=== PATIENT | male | born 1970 | race African-American/Black ===

== ENCOUNTER 2021-04-04 13:48 | Emergency (ER) | payer SELFPAY ==
[2021-04-04 13:59] VITALS: BP 130/95; PULSE 115; RESP 17; TEMP 37.1; O2SAT 100
[2021-04-04 14:03] VITALS: PULSE 115
--- NOTE | 2021-04-04 14:11 | ED.GENADULT ---
HPI - General Adult General Chief complaint: Unspecified Stated complaint: etoh withdrawls Time Seen by Provider: 04/04/21 13:53 Source: patient and RN notes reviewed Mode of arrival: ambulatory Limitations: no limitations History of Present Illness HPI narrative: This is a 50 year old male with history of alcoholism who presents for evaluation of alcohol withdrawals. He states 1 week ago he went out of town and he started drinking alcohol. He states he was sober for severe months until last week. He states he has been drinking beer mostly and small amount of liquor. He states on Tuesday he drank 8 beers. Yesterday he drank 5 beers. Last night he states he took 1 Librium because he was feeling shaking and sweaty. He states today he woke up and he feels shaky again so he came to get medication for alcohol withdrawal. He denies weakness, nausea, vomiting, abdominal pain, chest pain, diarrhea, bloody stools or dizziness. Related Data Home Medications Medication Instructions Recorded Confirmed amlodipine 04/04/21 Allergies Allergy/AdvReac Type Severity Reaction Status Date / Time No Known Allergies Allergy Unverified 04/04/21 14:01 Review of Systems Review of Systems: All systems reviewed & are unremarkable except as noted in HPI and below PMFSH Past Medical History Medical History GERD (gastroesophageal reflux disease) HTN (hypertension) Pancreatitis Social History Social History (Updated 11/21/19 @ 18:09 by HÉCTOR Jasso) Smoking status: Current every day smoker Alcohol intake: former Substance use: current Substance use type: marijuana Gender identity (if verbalized by the patient): Male Comments He reports past surgical history of pancreatic pseudocyst drainage Exam Narrative: Exam Narrative: GENERAL: Well-appearing, thin, and in no acute distress. HEAD: Normocephalic, atraumatic EYES: PERRLA and EOMI, conjunctiva clear without discharge THROAT:Mucous membranes moist, Oropharynx normal without erythema, exudate, peritonsillar swelling or fluctuance NECK: Supple, without lymphadenopathy or mass RESPIRATORY: No respiratory distress, Airway patent, Respirations non-labored, Clear to auscultation without rales, rhonchi or wheeze HEART: Regular rate and rhythm. No murmur heard. Normal peripheral pulses. ABDOMEN: Soft, nontender, nondistended, normal active bowel sounds. No masses. No rebound or guarding, No organomegaly. EXTREMITIES: No edema, normal strength with full range of motion. SKIN: Warm, dry, normal color without rash NEURO: Alert and oriented x3. CN 2-12 grossly intact. No focal deficits. PSYCH: Normal mood and affect. Course Reevaluation(s) Reevaluation #1: On examination, patient has mild hand tremors but otherwise appears stable. He does not appear dehydrated Date: 04/04/21 Time: 14:15 Vital Signs Vital signs: Vital Signs Temperature 98.8 F 04/04/21 13:59 Pulse Rate 115 H 04/04/21 13:59 Respiratory Rate 17 04/04/21 13:59 Blood Pressure 130/95 H 04/04/21 13:59 Pulse Oximetry 100 04/04/21 13:59 Temperature 98.8 F 04/04/21 13:59 Pulse Rate 68 04/04/21 14:49 Respiratory Rate 18 04/04/21 14:49 Blood Pressure 129/85 04/04/21 14:49 Pulse Oximetry 100 04/04/21 14:49 Medical Decision Making Vital Signs Vital Signs: Vital Signs Temperature 98.8 F 04/04/21 13:59 Pulse Rate 115 H 04/04/21 13:59 Respiratory Rate 17 04/04/21 13:59 Blood Pressure 130/95 H 04/04/21 13:59 Pulse Oximetry 100 04/04/21 13:59 Temperature 98.8 F 04/04/21 13:59 Pulse Rate 68 04/04/21 14:49 Respiratory Rate 18 04/04/21 14:49 Blood Pressure 129/85 04/04/21 14:49 Pulse Oximetry 100 04/04/21 14:49 Discharge Plan Discharge Clinical Impression: Alcohol withdrawal Qualifiers: Complication of substance-induced condition: uncomplicated Quali
[2021-04-04] MEDS: chlordiazePOXIDE (*CRX) 25 MG CAPSULE PO (14:25)
[2021-04-04 14:29] VITALS: BP 134/83; PULSE 87; RESP 21; O2SAT 100
[2021-04-04 14:49] VITALS: BP 129/85; PULSE 68; RESP 18; O2SAT 100
== END 2021-04-04 14:51 | disposition home or self-care (01) ==
PROVIDERS: Emergency Provider General Practice
DX: F10.230 Alcohol dependence with withdrawal, uncomplicated (principal); K21.9 Gastro-esophageal reflux disease without esophagitis; I10 Essential (primary) hypertension; F17.200 Nicotine dependence, unspecified, uncomplicated
CPT/HCPCS: 99283; A9270

== ENCOUNTER 2021-10-05 16:49 | Emergency (ER) | payer SELFPAY ==
[2021-10-05 16:55] VITALS: BP 126/79; PULSE 106; RESP 18; TEMP 36.6; O2SAT 98
== END 2021-10-06 04:34 | disposition left against medical advice (07) ==
LOC: ANHED 20:36
DX: M54.6 Pain in thoracic spine (principal)
CPT/HCPCS: 99199

== ENCOUNTER 2021-12-24 21:04 | Emergency (ER) | payer OTHER, SELFPAY ==
--- NOTE | 2021-12-24 21:07 | PC.NURSE ---
Pt called to triage at this time, no response.
[2021-12-24 21:20] VITALS: BP 128/76; PULSE 80; RESP 18; TEMP 37; O2SAT 100
--- NOTE | 2021-12-24 21:51 | ED.ALCOHOL ---
HPI - Alcohol General Chief Complaint: Alcohol Stated Complaint: ETOH withdrawl/ detox Time Seen by Provider: 12/24/21 21:31 Source: patient Mode of arrival: ambulatory Limitations: no limitations History of Present Illness HPI narrative: Pt is a 51 y/o male, presents to ED via POV with chief concern he is starting to experience mild ETOH withdrawal symptoms today. Here reports being sober for several months however, over the past three weeks, he has increased his ETOH use, now drinking daily. He admits to drinking two 24 ounce beers this morning and then a 16 ounce beer and two shots of gin around 1830 today. He reports he starts to shake when he does not drink but denies NV, erector pylori, photophobia, hallucinations, JADE or history of seizures as a result of withdrawal. He denies SI or HI and has no concerns he requires inpatient detox MD complaint: alcohol intoxication and alcohol dependence Last drink: hours (ago) Amount of alcohol consumed: refer to HPI Chronic alcohol use: Yes Previous visits for alcohol intoxication: Yes Recent trauma: No Associated symptoms: other (refer to HPI) Treatments prior to arrival: none Related Data Home Medications Medication Instructions Recorded Confirmed amlodipine 04/04/21 Allergies Allergy/AdvReac Type Severity Reaction Status Date / Time No Known Allergies Allergy Unverified 12/24/21 21:27 Review of Systems Review of Systems: refer to HPI Constitutional: Constitutional: Reports no additional constitutional complaints Neurologic: Reports system reviewed and no additional complaints, except as documented [facility] Past Medical History Medical History (Updated 12/24/21 @ 23:15 by Sindy Kasper [employer]) Alcoholic intoxication GERD (gastroesophageal reflux disease) HTN (hypertension) Pancreatitis Social History Social History (Updated 11/21/19 @ 18:09 by Dorothy Chilel, [employer]) Smoking status: Current every day smoker Alcohol intake: former Substance use: current Substance use type: marijuana Gender identity (if verbalized by the patient): Male Exam Const: General: cooperative, healthy appearing, comfortable, no acute distress, well developed, alert, awake and Physically active Nutritional Appearance: thin Orientation/consciousness: oriented to person, oriented to place, oriented to time and patient oriented x3 Limitations: no limitations HENMT: Head: normal to inspection Ears: hearing grossly normal bilaterally General nose exam: Normal nares present Face and sinus: normal facial exam and sinuses nontender Mouth: Yes Normal oral and palatal mucosa present Throat: posterior oropharynx normal Eyes: General: appearance normal, both eyes and all related structures Visual Pena: normal visual pena by confrontation Alignment and Position: alignment normal Periorbital: periorbital findings normal Eyelids: eyelids normal Conjunctivae: conjunctivae normal Cornea: corneas normal EOM: EOMs intact bilaterally Direct Ophthalmoscopy: normal light reflex Neck: Neck: normal visual inspection Thyroid: thyroid normal Lymphatic: no lymphadenopathy noted Chest: Chest palpation & inspection: normal inspection of the chest and normal palpation of entire chest wall Breast/axilla inspection: normal inspection of the breasts Resp: Effort & Inspection: normal respiratory effort and able to speak in complete sentences Auscultation: clear to auscultation bilaterally Cardio: Jugular venous distension: no JVD Rate: regular rate Rhythm: regular rhythm Heart sounds: S1 normal heart sound present and S2 normal heart sound present GI: Inspection: normal to inspection Auscultation: normal bowel sounds Back/Spine/Pelvis: Back: no CVA tenderness Skin: General skin exam: normal color Rashes: no rashes Trauma: no lacerations or abrasions Wounds: no wounds Hair: normal Neuro: General: oriented to person, oriented to place, oriented to time, patient oriented x3,
[2021-12-24 22:06] LABS: Basophils Absolute Auto 0.1 K/mm3 (0.0-0.1); Basophils Percent Auto 1.1 % (0.2-1.2); Eosinophils Absolute Auto 0.5 K/mm3 (0-0.3); Eosinophils Percent Auto 6.5 % (0-4.4); Hematocrit 38.4 % (42.0-52.0); Hemoglobin 13.2 g/dL (14.0-18.0); Immature Granulocyte Absolute 0.02 K/mm3 (0.00-0.031); Immature Granulocyte Percent A 0.3 % (0-0.5); Lymphocytes Absolute Auto 2.88 K/mm3 (0.9-3.2); Lymphocytes Percent Auto 38.1 % (18.3-44.2); Mean Corpuscular HGB Conc 34.4 g/dl (32-36); Mean Corpuscular Hemoglobin 33.2 pg (26-34); Mean Corpuscular Volume 96.7 fl (80-100); Mean Platelet Volume 8.9 fl (7.4-10.4); Monocytes Absolute Auto 0.6 K/mm3 (0.1-0.6); Monocytes Percent Auto 8.5 % (2.6-8.5); Neutrophils Absolute Auto 3.4 K/mm3 (1.3-6.7); Neutrophils Percent Auto 45.5 % (45.5-73.1); Platelet Count Result 184 k/mm3 (150-375); Red Blood Count 3.97 M/mm3 (4.6-6.20); Red Cell Distribution Width 14.6 % (11.5-14.5); White Blood Count 7.6 K/mm3 (4.5-10.0)
[2021-12-24 22:19] LABS: Alanine Aminotransferase 28 U/L (4-50); Albumin Level 4.4 g/dL (3.5-5.1); Alkaline Phosphatase 57 U/L (38-126); Anion Gap 11 mmol/L (8-16); Aspartate Amino Transferase 60 U/L (17-59); Bilirubin,Total 0.4 mg/dL (0.2-1.3); Blood Urea Nitrogen 9 mg/dL (9-20); Carbon Dioxide 24 mmol/L (22-30); Chloride 108 mmol/L (98-107); Estimated CRCL calculation 75 ml/min; Estimated Glomerular Filt Rate > 60; Glucose 69 mg/dL (65-110); Sodium 143 mmol/L (137-145)
[2021-12-24 22:20] LABS: Ethanol 213 mg/dL (<10)
[2021-12-24 23:50] VITALS: BP 123/89; PULSE 72; RESP 16; TEMP 36.9; O2SAT 99
== END 2021-12-24 23:59 | disposition home or self-care (01) ==
PROVIDERS: Emergency Provider Nurse Practitioner Family
DX: F10.120 Alcohol abuse with intoxication, uncomplicated (principal); I10 Essential (primary) hypertension; K21.9 Gastro-esophageal reflux disease without esophagitis; F17.200 Nicotine dependence, unspecified, uncomplicated; Y90.7 Blood alcohol level of 200-239 mg/100 ml
CPT/HCPCS: 36415; 80053; 80307; 85025; 99283

== ENCOUNTER 2022-01-12 12:15 | Emergency (ER) | payer OTHER, SELFPAY ==
--- NOTE | ~2022-01-12 | XR_ITS ---
EXAMINATION: XR chest 1V portable DATE: 01/12/2022 13:41 INDICATION: Cough. TECHNIQUE: A single frontal view of the chest was obtained. COMPARISON: None. FINDINGS: The chest demonstrates clear lungs without pneumonia, pleural effusion, or pneumothorax. Th e heart size is normal. IMPRESSION: 1. No acute cardiopulmonary disease. Reviewed, dictated and finalized at location A.
[2022-01-12 12:19] VITALS: BP 133/77; PULSE 72; RESP 20; TEMP 36.8; O2SAT 99
[2022-01-12 14:08] LABS: Basophils Absolute Auto 0.1 K/mm3 (0.0-0.1); Basophils Percent Auto 0.8 % (0.2-1.2); Eosinophils Absolute Auto 0.2 K/mm3 (0-0.3); Hematocrit 39.1 % (42.0-52.0); Hemoglobin 13.4 g/dL (14.0-18.0); Immature Granulocyte Absolute 0.02 K/mm3 (0.00-0.031); Immature Granulocyte Percent A 0.2 % (0-0.5); Lymphocytes Absolute Auto 2.63 K/mm3 (0.9-3.2); Lymphocytes Percent Auto 30.5 % (18.3-44.2); Mean Corpuscular HGB Conc 34.3 g/dl (32-36); Mean Corpuscular Hemoglobin 33.3 pg (26-34); Mean Platelet Volume 9.1 fl (7.4-10.4); Monocytes Absolute Auto 0.5 K/mm3 (0.1-0.6); Monocytes Percent Auto 5.2 % (2.6-8.5); Neutrophils Absolute Auto 5.3 K/mm3 (1.3-6.7); Neutrophils Percent Auto 61.3 % (45.5-73.1); Platelet Count Result 248 k/mm3 (150-375); Red Blood Count 4.03 M/mm3 (4.6-6.20); Red Cell Distribution Width 13.6 % (11.5-14.5); White Blood Count 8.6 K/mm3 (4.5-10.0)
[2022-01-12 14:21] LABS: Alanine Aminotransferase 18 U/L (4-50); Albumin Level 4.5 g/dL (3.5-5.1); Alkaline Phosphatase 62 U/L (38-126); Anion Gap 4 mmol/L (8-16); Aspartate Amino Transferase 38 U/L (17-59); Bilirubin,Total 0.5 mg/dL (0.2-1.3); Blood Urea Nitrogen 9 mg/dL (9-20); Calcium 9.2 mg/dL (8.4-10.2); Carbon Dioxide 27 mmol/L (22-30); Chloride 107 mmol/L (98-107); Estimated CRCL calculation 67 ml/min; Estimated Glomerular Filt Rate > 60; Glucose 84 mg/dL (65-110); Potassium 3.4 mmol/L (3.4-5.0); Sodium 138 mmol/L (137-145)
--- NOTE | 2022-01-12 14:24 | ED.GENADULT ---
HPI - General Adult General Chief complaint: Nausea/Vomiting/Diarrhea Stated complaint: Diarrhea Time Seen by Provider: 01/12/22 12:39 Source: patient and RN notes reviewed Mode of arrival: ambulatory Limitations: no limitations History of Present Illness HPI narrative: Patient is 51 years old white male presented to the ED with diarrhea maximum 3 times a day started 5 days ago, started Imodium, today only once. Patient denies any fever, chills, nausea, vomiting, abdominal pain. Patient started on Augmentin 1 week ago for possible respiratory infection, is coughing is improving.. Related Data Home Medications Medication Instructions Recorded Confirmed amlodipine 04/04/21 Allergies Allergy/AdvReac Type Severity Reaction Status Date / Time No Known Allergies Allergy Unverified 12/24/21 21:27 Review of Systems Review of Systems: General appearance: Well-developed, well-nourished Skin: Normal color Head: Normocephalic, nontraumatic Eyes: Clear conjunctiva ENT: Oropharynx normal, ears normal, nose normal Neck: Supple, nontender Chest and respiratory: Airway patent, no respiratory distress, no accessory muscle use Heart: Regular rate/rhythm Abdomen: Soft, nontender, no organomegaly, quiet bowel sounds Vascular: Normal peripheral pulses, normal capillary refill. Musculoskeletal: Normal range of motion, nontender back Neurologic: Alert and oriented ?3, EMERGENCY ROOM DOCTOR is normal as tested, no gross motor deficit PMFSH Past Medical History Medical History Alcoholic intoxication GERD (gastroesophageal reflux disease) HTN (hypertension) Pancreatitis Social History Social History Smoking status: Current every day smoker Alcohol intake: former Substance use: current Substance use type: marijuana Gender identity (if verbalized by the patient): Male Exam Narrative: General appearance: Well-developed, well-nourished Skin: Normal color Head: Normocephalic, nontraumatic Eyes: Clear conjunctiva ENT: Oropharynx normal, ears normal, nose normal Neck: Supple, nontender Chest and respiratory: Airway patent, no respiratory distress, no accessory muscle use Heart: Regular rate/rhythm Abdomen: Soft, nontender, no organomegaly, quiet bowel sounds Vascular: Normal peripheral pulses, normal capillary refill. Musculoskeletal: Normal range of motion, nontender back Neurologic: Alert and oriented ?3, EMERGENCY ROOM DOCTOR is normal as tested, no gross motor deficit Course Course Emergency Course: Very high likely is secondary to Augmentin use. My plan to stop Augmentin. Patient for 1 week, the coughing is almost over. Vital Signs Vital signs: Vital Signs Temperature 36.8 C 01/12/22 12:19 Pulse Rate 72 01/12/22 12:19 Respiratory Rate 20 01/12/22 12:19 Blood Pressure 133/77 01/12/22 12:19 Pulse Oximetry 99 01/12/22 12:19 Temperature 36.8 C 01/12/22 12:19 Pulse Rate 72 01/12/22 12:19 Respiratory Rate 20 01/12/22 12:19 Blood Pressure 133/77 01/12/22 12:19 Pulse Oximetry 99 01/12/22 12:19 Medical Decision Making Vital Signs Vital Signs: Vital Signs Temperature 36.8 C 01/12/22 12:19 Pulse Rate 72 01/12/22 12:19 Respiratory Rate 20 01/12/22 12:19 Blood Pressure 133/77 01/12/22 12:19 Pulse Oximetry 99 01/12/22 12:19 Tem
== END 2022-01-12 14:46 | disposition home or self-care (01) ==
PROVIDERS: Emergency Provider Emergency Medicine
DX: R19.7 Diarrhea, unspecified (principal); K21.9 Gastro-esophageal reflux disease without esophagitis; I10 Essential (primary) hypertension; F17.200 Nicotine dependence, unspecified, uncomplicated
CPT/HCPCS: 36415; 71045; 80053; 85025; 99283

== ENCOUNTER 2022-07-09 18:43 | Emergency (ER) | payer OTHER, SELFPAY ==
[2022-07-09 18:45] VITALS: BP 127/75; PULSE 94; RESP 20; TEMP 36.8; O2SAT 100
[2022-07-09 19:39] VITALS: BP 113/75; RESP 16; O2SAT 100
--- NOTE | 2022-07-09 20:14 | ED.GENADULT ---
HPI - General Adult General Chief complaint: Unspecified Stated complaint: alcohol withdrawal Time Seen by Provider: 07/09/22 19:57 Source: patient and old records reviewed Mode of arrival: ambulatory Limitations: no limitations History of Present Illness HPI narrative: Patient is a 52-year-old male with a history of chronic ETOH abuse, who presents the ED with report of potential alcohol withdrawal symptoms. Patient states over the last 2 months, he has been drinking alcohol daily. He drinks beer and liquor - typically 12-18 beers per day plus pints. He states he last had 2 16 oz beers at 9 AM this morning and developed the shakes and sweats around 2 PM, so he drank 2 more beers. Patient denies a history of alcohol withdrawal seizures or hallucinations. He has previously been seen in the ED here for alcohol intoxication and withdrawal and been prescribed Librium. He states the Librium helped him quit for a few months before he started again. Patient reports intermittent upper abdominal pain recently, but denies any pain currently. Denies nausea, vomiting, fevers, diarrhea, constipation. Related Data Home Medications Medication Instructions Recorded Confirmed amlodipine 10 mg tablet 04/04/21 Allergies Allergy/AdvReac Type Severity Reaction Status Date / Time No Known Allergies Allergy Verified 07/09/22 19:40 Review of Systems Review of Systems: CONSTITUTIONAL: Reports diaphoresis. Denies fever, chills. EYES: Denies visual changes. CARDIOVASCULAR: Denies chest pain. RESPIRATORY: Denies dyspnea. GASTROINTESTINAL: Reports intermittent upper abdominal pain. Denies constipation, nausea, vomiting, or diarrhea. GENITOURINARY: Denies dysuria or hematuria. NEUROLOGIC: Reports tremors/shakiness. All systems reviewed & are unremarkable except as noted in HPI and below PMFSH Past Medical History Medical History Alcoholic intoxication GERD (gastroesophageal reflux disease) HTN (hypertension) Pancreatitis Surgical History Surgical History History of esophagogastroduodenoscopy (EGD) Social History Social History (Updated 07/09/22 @ 20:18 by Norma Gonsalez PA-C) Smoking status: Current every day smoker Alcohol intake: current Substance use: current Substance use type: marijuana Gender identity (if verbalized by the patient): Male Exam Narrative: GENERAL: Well appearing, thin, non-toxic, in no acute distress. HEAD: Normocephalic, atraumatic. EYES: PERRL/EOMI, conjunctivae clear bilaterally. NECK: Supple. No adenopathy, no masses. RESPIRATORY: Airway patent, respirations nonlabored. Clear to auscultation bilaterally, no rales, rhonchi, wheezing. CARDIOVASCULAR: Regular rate and rhythm without murmurs, rubs, or gallops. Peripheral pulses 2+ and equal bilaterally. ABDOMINAL: Soft, no specific tenderness to palpation, nondistended, no hepatosplenomegaly. Normoactive BS. MUSCULOSKELETAL: Moves all extremities. Strength/ROM intact without gross deformities. SKIN: Warm, dry, normal color. No rashes. NEURO: A&O X3. Speech clear. Cranial nerves II-XII grossly intact. Steady gait. No ataxic movements. No significant tremor appreciated. PSYCHIATRIC: Appropriate mood and affect. Normal interaction. Course Vital Signs Vital signs: Vital Signs Temperature 98.3 F 07/09/22 18:45 Pulse Rate 94 07/09/22 18:45 Respiratory Rate 20 07/09/22 18:45 Blood Pressure 127/75 07/09/22 18:45 Pulse Oximetry 100 07/09/22 18:45 Temperature 98.3 F 07/09/22 18:45 Pulse Rate 65 07/09/22 22:49 Respiratory Rate 18 07/09/22 22:49 Blood Pressure 120/80 07/09/22 22:49 Pulse Oximetry 100 07/09/22 22:49 Medical Decision Making [facility] Narrative Medical decision making narrative: Patient with history of ETOH abuse, concern for withdrawal symptoms. Last drink a few hours pr
[2022-07-09] MEDS: SODIUM CHLORIDE 0.9% IV 1,000 ML 999 ML IV CONT (20:51)
[2022-07-09 21:19] VITALS: BP 126/79; PULSE 60; RESP 18; O2SAT 100
[2022-07-09 21:20] LABS: Basophils Absolute Auto 0.1 K/mm3 (0.0-0.1); Basophils Percent Auto 0.7 % (0.2-1.2); Eosinophils Absolute Auto 0.3 K/mm3 (0-0.3); Eosinophils Percent Auto 3.9 % (0-4.4); Hematocrit 37.9 % (42.0-52.0); Hemoglobin 12.8 g/dL (14.0-18.0); Immature Granulocyte Absolute 0.01 K/mm3 (0.00-0.031); Immature Granulocyte Percent A 0.1 % (0-0.5); Immature Platelet Fraction Pct 3.6 % (0.9-11.2); Lymphocytes Absolute Auto 2.45 K/mm3 (0.9-3.2); Lymphocytes Percent Auto 33.3 % (18.3-44.2); Mean Corpuscular HGB Conc 33.8 g/dl (32-36); Mean Corpuscular Hemoglobin 33.1 pg (26-34); Mean Corpuscular Volume 97.9 fl (80-100); Mean Platelet Volume 9.6 fl (7.4-10.4); Monocytes Absolute Auto 0.5 K/mm3 (0.1-0.6); Monocytes Percent Auto 6.8 % (2.6-8.5); Neutrophils Absolute Auto 4.1 K/mm3 (1.3-6.7); Neutrophils Percent Auto 55.2 % (45.5-73.1); Platelet Count Result 146 k/mm3 (150-375); Red Blood Count 3.87 M/mm3 (4.6-6.20); Red Cell Distribution Width 14.3 % (11.5-14.5); White Blood Count 7.4 K/mm3 (4.5-10.0)
[2022-07-09 21:26] LABS: Lipase 52 U/L (23-300)
[2022-07-09 21:28] LABS: Ethanol 110 mg/dL (<10)
[2022-07-09 21:29] LABS: Alanine Aminotransferase 74 U/L (6-50); Albumin Level 4.4 g/dL (3.5-5.1); Alkaline Phosphatase 44 U/L (38-126); Anion Gap 13 mmol/L (8-16); Aspartate Amino Transferase 130 U/L (17-59); Bilirubin,Total 0.5 mg/dL (0.2-1.3); Blood Urea Nitrogen 7 mg/dL (9-20); Carbon Dioxide 24 mmol/L (22-30); Chloride 104 mmol/L (98-107); Estimated CRCL calculation 72 ml/min; Estimated Glomerular Filt Rate > 60; Glucose 78 mg/dL (65-110); Magnesium 1.9 mg/dL (1.6-2.3); Phosphorus 3.8 mg/dL (2.5-4.5); Potassium 3.8 mmol/L (3.4-5.0); Sodium 141 mmol/L (137-145)
[2022-07-09 22:20] VITALS: BP 118/74; PULSE 66; RESP 18; O2SAT 100
[2022-07-09 22:49] VITALS: BP 120/80; PULSE 65; RESP 18; O2SAT 100
== END 2022-07-09 22:52 | disposition home or self-care (01) ==
PROVIDERS: Physician Assistant; Emergency Provider Emergency Medicine
DX: F10.129 Alcohol abuse with intoxication, unspecified (principal); I10 Essential (primary) hypertension; K21.9 Gastro-esophageal reflux disease without esophagitis; F12.90 Cannabis use, unspecified, uncomplicated; F17.200 Nicotine dependence, unspecified, uncomplicated
CPT/HCPCS: 36415; 80053; 80307; 83690; 83735; 84100; 85025; 85055; 96360; 99283; J7030

== ENCOUNTER 2022-10-29 18:27 | Emergency (ER) | payer OTHER, SELFPAY ==
--- NOTE | 2022-10-29 18:34 | ECG_ITS ---
Measurements Intervals [place] Rate: 69 P: 78 HI: 121 QRS: 38 QRSD: 77 T: 48 QT: 358 QTc: 385 Interpretive Statements SINUS RHYTHM NORMAL ELECTROCARDIOGRAM COMPARED TO ECG 04/09/2019 18:00:43 NO SIGNIFICANT CHANGES Electronically Signed On 10-30-2022 9:43:25 [employer] IN[employer] by Home Baker M.D.
[2022-10-29 18:38] VITALS: BP 149/82; PULSE 87; RESP 18; TEMP 36.7; O2SAT 100
[2022-10-29 18:44] LABS: Basophils Absolute Auto 0.1 K/mm3 (0.0-0.1); Basophils Percent Auto 0.6 % (0.2-1.2); Eosinophils Absolute Auto 0.2 K/mm3 (0-0.3); Eosinophils Percent Auto 2.2 % (0-4.4); Hematocrit 37.6 % (42.0-52.0); Hemoglobin 12.8 g/dL (14.0-18.0); Immature Granulocyte Absolute 0.06 K/mm3 (0.00-0.031); Immature Granulocyte Percent A 0.8 % (0-0.5); Lymphocytes Absolute Auto 2.49 K/mm3 (0.9-3.2); Lymphocytes Percent Auto 32.3 % (18.3-44.2); Mean Corpuscular Hemoglobin 33.9 pg (26-34); Mean Corpuscular Volume 99.5 fl (80-100); Mean Platelet Volume 8.7 fl (7.4-10.4); Monocytes Absolute Auto 0.8 K/mm3 (0.1-0.6); Monocytes Percent Auto 9.7 % (2.6-8.5); Neutrophils Absolute Auto 4.2 K/mm3 (1.3-6.7); Neutrophils Percent Auto 54.4 % (45.5-73.1); Platelet Count Result 174 k/mm3 (150-375); Red Blood Count 3.78 M/mm3 (4.6-6.20); Red Cell Distribution Width 15.9 % (11.5-14.5); White Blood Count 7.7 K/mm3 (4.5-10.0)
[2022-10-29 18:54] LABS: Ethanol 251 mg/dL (<10)
[2022-10-29 18:55] LABS: Alanine Aminotransferase 52 U/L (6-50); Albumin Level 4.8 g/dL (3.5-5.1); Alkaline Phosphatase 54 U/L (38-126); Anion Gap 11 mmol/L (8-16); Aspartate Amino Transferase 59 U/L (17-59); Bilirubin,Total 0.2 mg/dL (0.2-1.3); Blood Urea Nitrogen 13 mg/dL (9-20); Calcium 9.1 mg/dL (8.4-10.2); Carbon Dioxide 25 mmol/L (22-30); Chloride 105 mmol/L (98-107); Estimated CRCL calculation 76 ml/min; Estimated Glomerular Filt Rate > 60; Glucose 86 mg/dL (65-110); Potassium 3.9 mmol/L (3.4-5.0); Sodium 141 mmol/L (137-145)
--- NOTE | 2022-10-29 20:50 | PC.NURSE ---
patient states he was trying to quit drinking on his own and had the shakes so his dr told him to go to the er to get some medication to help with the shakes
--- NOTE | 2022-10-29 21:01 | ED.ALCOHOL ---
HPI - Alcohol General Chief Complaint: Alcohol Stated Complaint: alcohol abuse Time Seen by Provider: 10/29/22 20:47 Source: patient, RN notes reviewed and old records reviewed Mode of arrival: ambulatory Limitations: no limitations History of Present Illness HPI narrative: This a 52 year old male with history of alcohol abuse who presents for evaluation of alcohol with drawal. Patient has been dealing with alcohol abuse for 8 years. He wants to stop drinking alcohol for the new year. He states he has talk to his doctor about stopping and she recommended that he taper his alcohol. He states he is having a difficulty tapering his dose. He wakes up in the morning sweating and shaking so starts to drink alcohol. Today he reports drinking 2 - 24 ounce beers and 3 shots of liquor. His last drink was approximately 3 hours ago. He denies any withdrawal symptoms at this time. He would like lithium to help him taper his dose Related Data Home Medications Medication Instructions Recorded Confirmed amlodipine 10 mg tablet 04/04/21 Allergies Allergy/AdvReac Type Severity Reaction Status Date / Time No Known Allergies Allergy Verified 07/09/22 19:40 Review of Systems Review of Systems: All systems reviewed & are unremarkable except as noted in HPI and below Constitutional: Constitutional: Denies weakness Cardiovascular: Cardiovascular: Denies syncope, Denies rapid heart rate, Denies irregular heart rhythm, Denies leg edema and Denies dyspnea Respiratory: Respiratory: Denies chest congestion, Denies hemoptysis, Denies excessive phlegm production and Denies dyspnea Gastrointestinal: Gastrointestinal: Denies abdominal pain, Denies hematochezia, Denies diarrhea and Denies vomiting Genitourinary: Genitourinary: Denies hematuria, Denies dysuria, Denies penile discharge and Denies testicular pain Musculoskeletal: Musculoskeletal: Denies joint swelling, Denies loss of height and Denies muscle weakness Neurologic: Denies syncope, Denies focal weakness and Denies weakness PMFSH Past Medical History Medical History Alcoholic intoxication GERD (gastroesophageal reflux disease) HTN (hypertension) Pancreatitis Surgical History Surgical History History of esophagogastroduodenoscopy (EGD) Social History Social History (Updated 07/09/22 @ 20:18 by OG Kaur Smoking status: Current every day smoker Alcohol intake: current Substance use: current Substance use type: marijuana Gender identity (if verbalized by the patient): Male Exam Const: General: healthy appearing, no acute distress and alert Nutritional Appearance: well nourished Orientation/consciousness: patient oriented x3 HENMT: Head: normal to inspection Mouth: Yes Normal oral and palatal mucosa present Eyes: EOM: EOMs intact bilaterally Chest: Chest palpation & inspection: normal inspection of the chest Resp: Effort & Inspection: normal respiratory effort Auscultation: clear to auscultation bilaterally Cardio: Rate: regular rate Rhythm: regular rhythm Heart sounds: no murmurs GI: GI Palp: Yes Soft to palpation, No Tenderness to palpation present (GI), No Guarding due to palpation present (GI) and No Rigid due to palpation Back/Spine/Pelvis: Back: no CVA tenderness Skin: General skin exam: normal color Rashes: no rashes Wounds: no wounds Neuro: General: patient oriented x3, moves all extremities and CN's II-XI intact bilaterally Cranial nerves: Yes Nystagmus not present Speech: normal speech Extrem: General: normal to inspection Psych: Mental Status: mental status grossly normal Affect: normal affect Attitude: cooperative Course Reevaluation(s) Reevaluation #1: Patient does not have any complaints at this time. 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
== END 2022-10-29 21:19 | disposition home or self-care (01) ==
PROVIDERS: Emergency Medicine; Emergency Provider General Practice
DX: F10.10 Alcohol abuse, uncomplicated (principal); I10 Essential (primary) hypertension; K21.9 Gastro-esophageal reflux disease without esophagitis; F17.200 Nicotine dependence, unspecified, uncomplicated; Y90.8 Blood alcohol level of 240 mg/100 ml or more
CPT/HCPCS: 36415; 80053; 80307; 85025; 93005; 99283

== ENCOUNTER 2023-05-03 20:37 | Emergency (ER) | payer OTHER, SELFPAY ==
[2023-05-03 20:39] VITALS: BP 150/70; PULSE 102; RESP 15; TEMP 36.5; O2SAT 98
--- NOTE | 2023-05-03 20:46 | PC.NURSE ---
Pt states he has drank 8 beers a day and had 7 shots of liquor a day for the past month.
[2023-05-03 20:48] VITALS: BP 138/73; PULSE 90; RESP 20; O2SAT 98
--- NOTE | 2023-05-03 21:09 | ECG_ITS ---
Measurements Intervals [place] Rate: 71 P: 76 VA: 129 QRS: 0 QRSD: 87 T: 52 QT: 361 QTc: 394 Interpretive Statements SINUS RHYTHM NORMAL ECG COMPARED TO ECG 10/29/2022 18:38:29 NO SIGNIFICANT CHANGES Electronically Signed On 05-04-2023 6:21:07 CDT by Moncho Thompson D.O.
[2023-05-03 21:24] LABS: Basophils Absolute Auto 0.1 K/mm3 (0.0-0.1); Basophils Percent Auto 1.1 % (0.2-1.2); Eosinophils Absolute Auto 0.1 K/mm3 (0-0.3); Eosinophils Percent Auto 1.3 % (0-4.4); Hematocrit 35.2 % (42.0-52.0); Hemoglobin 12.2 g/dL (14.0-18.0); Immature Granulocyte Absolute 0.01 K/mm3 (0.00-0.031); Immature Granulocyte Percent A 0.2 % (0-0.5); Lymphocytes Percent Auto 39.2 % (18.3-44.2); Mean Corpuscular HGB Conc 34.7 g/dl (32-36); Mean Corpuscular Hemoglobin 33.4 pg (26-34); Mean Corpuscular Volume 96.4 fl (80-100); Mean Platelet Volume 8.7 fl (7.4-10.4); Monocytes Absolute Auto 0.4 K/mm3 (0.1-0.6); Monocytes Percent Auto 6.9 % (2.6-8.5); Neutrophils Absolute Auto 3.3 K/mm3 (1.3-6.7); Neutrophils Percent Auto 51.3 % (45.5-73.1); Platelet Count Result 140 k/mm3 (150-375); Red Blood Count 3.65 M/mm3 (4.6-6.20); Red Cell Distribution Width 14.6 % (11.5-14.5); White Blood Count 6.4 K/mm3 (4.5-10.0)
[2023-05-03 21:33] LABS: Appearance Urine Clear (Clear); Bilirubin Urine Negative (Negative); Blood Urine 1+ (Negative); Color Urine Yellow (Yellow); Glucose Urine UA Negative (Negative); Ketones Urine Negative (Negative); Leukocyte Esterase Ur Negative LEU/UL (Negative); Nitrate Urine Negative (Negative); Protein Urine Negative (Negative); Specific Grav Ur <= 1.005 (1.001-1.035); Urobilinogen Urine 0.2 mg/dL (<2.0); pH Urine 5.5 (5.0-9.0)
[2023-05-03 21:37] LABS: Alanine Aminotransferase 114 U/L (6-50); Albumin Level 4.5 g/dL (3.5-5.1); Alkaline Phosphatase 48 U/L (38-126); Anion Gap 14 mmol/L (8-16); Aspartate Amino Transferase 172 U/L (17-59); Bilirubin,Total 0.3 mg/dL (0.2-1.3); Blood Urea Nitrogen 14 mg/dL (9-20); Calcium 8.6 mg/dL (8.4-10.2); Carbon Dioxide 25 mmol/L (22-30); Chloride 103 mmol/L (98-107); Estimated CRCL calculation 41 ml/min; Estimated Glomerular Filt Rate > 60; Glucose 126 mg/dL (65-110); INR 0.9; Prothrombin Time 12.4 Seconds (11.1-14.7); Sodium 142 mmol/L (137-145)
[2023-05-03 21:45] LABS: Bacteria Urine None Seen /hpf; Need Manual Microscopic Reviewed; Non Pathogenic Casts 0-2; RBC Urine 0-2 /hpf (0-2); Squamous Epithelial Cell Urine None seen /hpf (Few); WBC Urine 0-5 /hpf
[2023-05-03 21:46] LABS: Add Urine Microscopic? YES
[2023-05-03 22:00] LABS: Ethanol 408 mg/dL (<10)
--- NOTE | 2023-05-03 22:04 | ED.GENADULT ---
HPI - General Adult General Chief complaint: Alcohol Stated complaint: etoh Time Seen by Provider: 05/03/23 21:14 History of Present Illness HPI narrative: This is a 52-year-old male presenting ED with chief complaint of alcohol intoxication. Patient says he has been drinking heavily for the last several weeks. He drank a large bottle of vodka and several beers today. He was having some epigastric discomfort It is associated with his alcohol use. No nausea or vomiting. No other complaints this time. He would like resources to help stop drinking. His brother then brought hospital to be evaluated. At this time the patient is A&O x4 has a steady gait. Related Data Home Medications Medication Instructions Recorded Confirmed amlodipine 10 mg tablet 04/04/21 Allergies Allergy/AdvReac Type Severity Reaction Status Date / Time No Known Allergies Allergy Verified 05/03/23 20:42 [facility] Past Medical History Medical History Alcoholic intoxication GERD (gastroesophageal reflux disease) HTN (hypertension) Pancreatitis Surgical History Surgical History History of esophagogastroduodenoscopy (EGD) Social History Social History Smoking status: Current every day smoker Alcohol intake: current Substance use: current Substance use type: marijuana Living arrangements: with family Gender identity (if verbalized by the patient): Male Exam Narrative: APPEARANCE: No apparent distress. A&O x4, walking unsteady gait Head: atraumatic. EYES: EOMI, NOSE: Atraumatic NECK: Trachea midline RESPIRATORY: No increased rate of breathing, clear to auscultation CARDIOVASCULAR: RRR, ABDOMINAL: abdomen is soft with mild tenderness in the epigastric area without guarding or rebound MUSCULOSKELETAl: No obvious deformities NEURO: Alert. Moving 4/4 extremities SKIN:: Warm, dry. Normal color PSYCHIATRIC: Normal affect Course Vital Signs Vital signs: Vital Signs Temperature 97.7 F 05/03/23 20:39 Pulse Rate 102 H 05/03/23 20:39 Respiratory Rate 15 05/03/23 20:39 Blood Pressure 150/70 H 05/03/23 20:39 Pulse Oximetry 98 05/03/23 20:39 Oxygen Delivery Room Air 05/03/23 20:39 Temperature 97.7 F 05/03/23 20:39 Pulse Rate 90 05/03/23 20:48 Respiratory Rate 20 05/03/23 20:48 Blood Pressure 138/73 05/03/23 20:48 Pulse Oximetry 98 05/03/23 20:48 Oxygen Delivery Room Air 05/03/23 20:39 Medical Decision Making MDM Narrative Medical decision making narrative: -Presentation: 52-year-old male presenting with acute alcohol intoxication. 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 Metabolic panel showed AST greater than ALT and alcohol use pattern. Urine not indicative of infection. Alcohol levels 408. Independent EKG interpretation: Rhythm [sinus], Rate [71], Venus -[normal], ND -[normal], QRS [narrow], QTC [normal], T waves -[negative for concerning inversions], ST Segments - [Negative for concerning elevations] Final interpretations: [Normal Sinus Rhythm] -Discussion of Management/Consultants: none -Dx tests considered but not ordered: none -Procedures: none -Interventions: Pepcid 20 mg -Shared decision making / Disposition: at this time the patient is intoxicated. He is A&O x4 and walking with a steady gait. He will be discharged in the custody of his brother. He will be
[2023-05-03 22:19] LABS: Lipase 111 U/L (23-300)
[2023-05-03 22:54] VITALS: BP 119/72; PULSE 85; RESP 13; O2SAT 98
== END 2023-05-03 23:04 | disposition home or self-care (01) ==
PROVIDERS: Emergency Provider Emergency Medicine
DX: F10.129 Alcohol abuse with intoxication, unspecified (principal); K29.20 Alcoholic gastritis without bleeding; I10 Essential (primary) hypertension; K21.9 Gastro-esophageal reflux disease without esophagitis; F17.200 Nicotine dependence, unspecified, uncomplicated; Y90.8 Blood alcohol level of 240 mg/100 ml or more
CPT/HCPCS: 36415; 80053; 80307; 81001; 83690; 85025; 85610; 85730; 93005; 99284

== ENCOUNTER 2023-05-29 09:32 | Emergency (ER) | payer OTHER, SELFPAY ==
[2023-05-29 09:52] VITALS: BP 125/66; PULSE 67; RESP 16; TEMP 37.1; O2SAT 100
--- NOTE | 2023-05-29 10:31 | ED.GENADULT ---
HPI - General Adult General Chief complaint: Ear Stated complaint: right ear issue Source: patient Mode of arrival: ambulatory Limitations: no limitations History of Present Illness HPI narrative: Patient presents for evaluation of what he believes to be cerumen impaction on the right side. Symptom onset 2 weeks ago. He has hearing loss in the affected ear. Denies any tinnitus or drainage from the ear. No sick symptoms including but not limited to fever, chills, sinus congestion, sore throat, cough. He attempted to irrigate his right ear with hydrogen peroxide. Related Data Home Medications Medication Instructions Recorded Confirmed amlodipine 10 mg tablet 10 mg PO DAILY 04/04/21 05/29/23 rosuvastatin 5 mg tablet 5 mg PO DAILY 05/29/23 05/29/23 Allergies Allergy/AdvReac Type Severity Reaction Status Date / Time No Known Allergies Allergy Verified 05/29/23 09:36 Review of Systems Review of Systems: CONSTITUTIONAL: Denies fever, chills, or sweats. EYES: Denies visual changes, redness, or discharge. ENT: Reports right sided ear pain with associated decreased hearing. No tinnitus or drainage from the ear. Denies rhinorrhea, congestion, or sore throat CARDIOVASCULAR: Denies chest pain, palpitations, or edema. RESPIRATORY: Denies cough or dyspnea. GASTROINTESTINAL: Denies abdominal pain, nausea, vomiting, or diarrhea. GENITOURINARY: Denies dysuria or hematuria. SKIN: Denies rash or itching. MUSCULOSKELETAL: Denies back pain, joint pain, or myalgia. NEUROLOGIC: Denies headache, numbness, dizziness, or weakness. PSYCHIATRIC: Denies anxiety or depression. [facility] Past Medical History Medical History Alcoholic intoxication GERD (gastroesophageal reflux disease) HTN (hypertension) Pancreatitis Surgical History Surgical History History of esophagogastroduodenoscopy (EGD) Family History Family History (Updated 05/29/23 @ 10:48 by HÉCTOR Tubbs, ABDI) Mother Family history non-contributory Social History Social History Smoking status: Current every day smoker Alcohol intake: current Substance use: current Substance use type: marijuana Living arrangements: with family Gender identity (if verbalized by the patient): Male Exam Narrative: GENERAL: Well-appearing, well-nourished, and in no acute distress. HEAD: Normocephalic, atraumatic. EYES: PERRLA and EOMI. ENT: Nares clear, no rhinorrhea or epistaxis. Mucous membranes moist. Oropharynx without tonsillar hypertrophy exudate or other lesions. Unable to visualize right TM due to cerumen present in ear canal NECK: Supple. No adenopathy or masses. No carotid bruits or JVD CHEST: Clear to auscultation. No respiratory distress. No wheezes rales or rhonchi HEART: Regular rate and rhythm. No murmur heard. Normal peripheral pulses. ABDOMEN: Soft, nontender, nondistended, normal active bowel sounds. EXTREMITIES: Normal range of motion. No edema. SKIN: Warm, dry, no rash. NEURO: No focal deficits. Alert and oriented x3. PSYCH: Normal mood and affect. Course Course Emergency Course: This is a 53-year-old male presented for evaluation of a cerumen impaction. Ear was irrigated with half-strength hydrogen peroxide and impaction was removed. Pt tolerated well. Small amount of bleeding in right ear canal. Will dx with ofloxacin. Follow up with primary provider. Go to ER for worsening symptoms. Pt in agreement with plan of care Level of Care: Express Care Visit Vital Signs Vital signs: Vital Signs Temperature 37.1 C 05/29/23 09:52 Pulse Rate 67 05/29/23 09:52 Respiratory Rate 16 05/29/23 09:52 Blood Pressure 125/66 05/29/23 09:52 Pulse Oximetry 100 05/29/23 09:52 Oxygen Delivery Room Air 05/29/23 09:52 Temperature 37.
== END 2023-05-29 10:29 | disposition home or self-care (01) ==
PROVIDERS: Emergency Provider Nurse Practitioner; PCP Hospitalist
DX: H61.21 Impacted cerumen, right ear (principal); F17.200 Nicotine dependence, unspecified, uncomplicated; F12.90 Cannabis use, unspecified, uncomplicated; K21.9 Gastro-esophageal reflux disease without esophagitis; I10 Essential (primary) hypertension
CPT/HCPCS: 69209; 99213; G0463

== ENCOUNTER 2023-08-30 14:34 | Emergency (ER) | payer OTHER, SELFPAY ==
[2023-08-30 14:40] VITALS: BP 139/84; PULSE 83; RESP 18; TEMP 36.1; O2SAT 100
[2023-08-30 16:04] VITALS: BP 144/81; PULSE 67; RESP 14; O2SAT 100
[2023-08-30] MEDS: SODIUM CHLORIDE 0.9% IV 1,000 ML 999 ML IV CONT (16:26)
[2023-08-30 16:28] LABS: Basophils Absolute Auto 0.1 K/mm3 (0.0-0.1); Basophils Percent Auto 0.7 % (0.2-1.2); Eosinophils Absolute Auto 0.3 K/mm3 (0-0.3); Eosinophils Percent Auto 3.3 % (0-4.4); Hematocrit 40.7 % (42.0-52.0); Hemoglobin 13.5 g/dL (14.0-18.0); Immature Granulocyte Absolute 0.03 K/mm3 (0.00-0.031); Immature Granulocyte Percent A 0.4 % (0-0.5); Lymphocytes Percent Auto 32.1 % (18.3-44.2); Mean Corpuscular HGB Conc 33.2 g/dl (32-36); Mean Corpuscular Hemoglobin 31.9 pg (26-34); Mean Corpuscular Volume 96.2 fl (80-100); Mean Platelet Volume 9.2 fl (7.4-10.4); Monocytes Absolute Auto 0.5 K/mm3 (0.1-0.6); Monocytes Percent Auto 6.4 % (2.6-8.5); Neutrophils Absolute Auto 4.6 K/mm3 (1.3-6.7); Neutrophils Percent Auto 57.1 % (45.5-73.1); Platelet Count Result 152 k/mm3 (150-375); Red Blood Count 4.23 M/mm3 (4.6-6.20); Red Cell Distribution Width 12.8 % (11.5-14.5); White Blood Count 8.1 K/mm3 (4.5-10.0)
[2023-08-30 16:42] LABS: Ethanol 130 mg/dL (<10)
[2023-08-30 16:46] LABS: Alanine Aminotransferase 69 U/L (6-50); Albumin Level 4.8 g/dL (3.5-5.1); Alkaline Phosphatase 54 U/L (38-126); Anion Gap 10 mmol/L (8-16); Aspartate Amino Transferase 91 U/L (17-59); Bilirubin,Total 0.8 mg/dL (0.2-1.3); Blood Urea Nitrogen 9 mg/dL (9-20); Calcium 9.2 mg/dL (8.4-10.2); Carbon Dioxide 24 mmol/L (22-30); Chloride 106 mmol/L (98-107); Estimated CRCL calculation 79 ml/min; Estimated Glomerular Filt Rate > 60; Glucose 79 mg/dL (65-110); Lipase 204 U/L (23-300); Potassium 5.2 mmol/L (3.4-5.0); Sodium 140 mmol/L (137-145)
--- NOTE | 2023-08-30 17:37 | ED.GENADULT ---
HPI - General Adult General Chief complaint: Alcohol Stated complaint: alcohol withdrawal Time Seen by Provider: 08/30/23 15:45 History of Present Illness HPI narrative: Patient is a 53-year-old male who presents ER with concerns for drinking too much. Reports he has been drinking a 12 pack a day with additional shots. Today's had 36 ounces of beer and then some hard liquor. He reports that he tries to slowly taper off of alcohol but then he shakes. He has had success with chlordiazepoxide in the past would like some more. He has been binge drinking for the last 2 weeks since going to a [facility]. No suicidal ideation or depression. No additional concerns. Related Data Home Medications Medication Instructions Recorded Confirmed amlodipine 10 mg tablet 10 mg PO DAILY 04/04/21 05/29/23 rosuvastatin 5 mg tablet 5 mg PO DAILY 05/29/23 05/29/23 Allergies Allergy/AdvReac Type Severity Reaction Status Date / Time No Known Allergies Allergy Verified 08/30/23 16:07 Review of Systems Review of Systems: All systems reviewed & are unremarkable except as noted in HPI and below Constitutional: Constitutional: Denies chills, Denies fatigue and Denies fever(s) ENT: Denies nasal congestion and Denies sore throat Cardiovascular: Cardiovascular: Denies chest pain, Denies rapid heart rate and Denies radiating jaw, neck or arm pain Gastrointestinal: Gastrointestinal: Denies abdominal pain, Denies nausea and Denies vomiting PMFSH Past Medical History Medical History Alcoholic intoxication GERD (gastroesophageal reflux disease) HTN (hypertension) Pancreatitis Surgical History Surgical History History of esophagogastroduodenoscopy (EGD) Family History Family History (Updated 05/29/23 @ 10:48 by HÉCTOR Tubbs, ) Mother Family history non-contributory Social History Social History Smoking status: Current every day smoker Alcohol intake: current Substance use: current Substance use type: marijuana Living arrangements: with family Gender identity (if verbalized by the patient): Male Exam Narrative: GENERAL: Well-appearing, well-nourished, and in no acute distress. HEAD: Normocephalic, atraumatic. EYES: PERRL and EOMI. ENT: Mucous membranes moist. CHEST: Clear to auscultation. No respiratory distress. HEART: Regular rate and rhythm. Normal peripheral pulses. ABDOMEN: Soft, nontender, nondistended. EXTREMITIES: Normal range of motion. No edema. SKIN: Warm, dry, no rash. NEURO: Alert and oriented x3. PSYCH: Normal mood and affect. Course Course Emergency Course: Patient resting comfortably. Informed of results. Will provide small dose of Librium for home as she reports she only uses it for couple of days. Vital Signs Vital signs: Vital Signs Temperature 97 F L 08/30/23 14:40 Pulse Rate 83 08/30/23 14:40 Respiratory Rate 18 08/30/23 14:40 Blood Pressure 139/84 08/30/23 14:40 Pulse Oximetry 100 08/30/23 14:40 Oxygen Delivery Room Air 08/30/23 14:40 Temperature 97 F L 08/30/23 14:40 Pulse Rate 76 08/30/23 17:50 Respiratory Rate 15 08/30/23 17:50 Blood Pressure 144/81 H 08/30/23 17:50 Pulse Oximetry 100 08/30/23 17:50 Oxygen Delivery Room Air 08/30/23 14:40 Medical Decision Making Vital Signs Vital Signs: Vital Signs Temperature 97 F L 08/30/23 14:40 Pulse Rate 83 08/30/23 14:40 Respiratory Rate 18 08/30/23 14:40 Blood Pressure 139/84 08/30/23 14:40 Pulse Oximetry 100 08/30/23 14:40 Oxygen Delivery Room Air 08/30/23 14:40 Temperature 97 F L 08/30/23 14:40 Pulse Rate 76 08/30/23 17:50 Respiratory Rate 15 08/30/23 17:50 Blood Pressure 144/81 H 08/30/23 17:50 Pulse Oximetry 100 08/30/23 17:50 Oxygen Delivery
[2023-08-30 17:50] VITALS: BP 144/81; PULSE 76; RESP 15; O2SAT 100
== END 2023-08-30 17:52 | disposition home or self-care (01) ==
PROVIDERS: Emergency Provider Emergency Medicine; PCP Hospitalist
DX: F10.10 Alcohol abuse, uncomplicated (principal); I10 Essential (primary) hypertension; K21.9 Gastro-esophageal reflux disease without esophagitis; F12.90 Cannabis use, unspecified, uncomplicated
CPT/HCPCS: 36415; 80053; 80307; 83690; 85025; 96360; 99283; J7030

== ENCOUNTER 2023-11-28 14:41 | Emergency (ER) | payer OTHER, SELFPAY ==
[2023-11-28 15:07] VITALS: BP 131/73; PULSE 83; RESP 18; TEMP 36.8; O2SAT 99
--- NOTE | 2023-11-28 15:45 | ED.GENADULT ---
HPI - General Adult General Chief complaint: Alcohol Stated complaint: alcohol intoxication History of Present Illness HPI narrative: Focused HPI: 0744 Yariel Hill is a 53 y/o male who presents today with reports of needing help to get off of alcohol. He states that he has been drinking regularly since his normal intake daily has been about 6-7 shots and about 6-8 beers. He tried to ween himself off of the alcohol the past two days but hasn't had any luck and started to drink more. He states that he last had a drink about 2-3 hours ago and it was beer. He states that he has gone through withdrawal symptoms before that consists of anxiety/ sweating/ shakes/ hallucinations. Denies current withdrawal symptoms at this time. GENERAL: Well-appearing, disheveled. and in no acute distress. HEAD: Normocephalic, atraumatic. CHEST: Clear to auscultation. ?No respiratory distress. HEART: Regular rate and rhythm.? NEURO: ?Alert and oriented x3. Patient screened in triage and initial orders placed.? ?Additional care and disposition to be based upon?diagnostic testing and treatment. Related Data Home Medications Medication Instructions Recorded Confirmed amlodipine 10 mg tablet 10 mg PO DAILY 04/04/21 05/29/23 rosuvastatin 5 mg tablet 5 mg PO DAILY 05/29/23 05/29/23 Allergies Allergy/AdvReac Type Severity Reaction Status Date / Time No Known Allergies Allergy Verified 11/28/23 14:41 [facility] Past Medical History Medical History Alcoholic intoxication GERD (gastroesophageal reflux disease) HTN (hypertension) Pancreatitis Surgical History Surgical History History of esophagogastroduodenoscopy (EGD) Family History Family History (Updated 05/29/23 @ 10:48 by HÉCTOR Tubbs, ABDI) Mother Family history non-contributory Social History Social History Smoking status: Current every day smoker Alcohol intake: current Substance use: current Substance use type: marijuana Living arrangements: with family Gender identity (if verbalized by the patient): Male Course Vital Signs Vital signs: Vital Signs Temperature 36.8 C 11/28/23 15:07 Pulse Rate 83 11/28/23 15:07 Respiratory Rate 18 11/28/23 15:07 Blood Pressure 131/73 11/28/23 15:07 Pulse Oximetry 99 11/28/23 15:07 Oxygen Delivery Room Air 11/28/23 15:07 Temperature 36.8 C 11/28/23 15:07 Pulse Rate 83 11/28/23 15:07 Respiratory Rate 18 11/28/23 15:07 Blood Pressure 131/73 11/28/23 15:07 Pulse Oximetry 99 11/28/23 15:07 Oxygen Delivery Room Air 11/28/23 15:07 Medical Decision Making Vital Signs Vital Signs: Vital Signs Temperature 36.8 C 11/28/23 15:07 Pulse Rate 83 11/28/23 15:07 Respiratory Rate 18 11/28/23 15:07 Blood Pressure 131/73 11/28/23 15:07 Pulse Oximetry 99 11/28/23 15:07 Oxygen Delivery Room Air 11/28/23 15:07 Temperature 36.8 C 11/28/23 15:07 Pulse Rate 83 11/28/23 15:07 Respiratory Rate 18 11/28/23 15:07 Blood Pressure 131/73 11/28/23 15:07 Pulse Oximetry 99 11/28/23 15:07 Oxygen Delivery Room Air 11/28/23 15:07 Discharge Plan Discharge Clinical Impression: Alcohol abuse Patient Disposition: Elopement After Seen by Prov Condition: Stable Prescriptions: No Action rosuvastatin 5 mg tablet 5 mg PO DAILY ofloxacin 0.3 % drops 10 drp RIGHT EAR DAILY 7 Days Qty: 5 0RF amlodipine 10 mg tablet 10 mg PO DAILY famotidine [Pepcid] 20 mg tablet 20 mg PO BID 42 Days Qty: 84 0RF chlordiazepoxide HCl 25 mg capsule 25 mg PO BID PRN (Reason: alcohol withdrawal) Qty: 7 0RF chlordiazepoxide HCl 25 mg capsule See Rx Instructions .ROUTE .COMPLEX Qty: 25 0RF Rx Instructions: Day 1: 50mg every 4-6 h
--- NOTE | 2023-11-28 20:21 | PC.NURSE ---
Pt called for labwork and vitals, no answer
--- NOTE | 2023-11-28 22:08 | PC.NURSE ---
Pt called for vitals, no answer
== END 2023-11-28 22:08 | disposition left against medical advice (07) ==
PROVIDERS: Emergency Provider Nurse Practitioner Family; PCP Hospitalist
DX: F10.10 Alcohol abuse, uncomplicated (principal); I10 Essential (primary) hypertension; K21.9 Gastro-esophageal reflux disease without esophagitis; F17.200 Nicotine dependence, unspecified, uncomplicated; Y90.9 Presence of alcohol in blood, level not specified
CPT/HCPCS: 99199; 99281

== ENCOUNTER 2023-11-29 13:38 | Emergency (ER) | payer OTHER, SELFPAY ==
[2023-11-29] VITALS (26 sets, daily range): BP systolic 134–152; BP diastolic 79–90; PULSE 66–76; RESP 12–20; TEMP 36.9; O2SAT 98–100
--- NOTE | 2023-11-29 17:18 | ED.ALCOHOL ---
HPI - Alcohol General Chief Complaint: Alcohol Stated Complaint: ETOH withdrawl Time Seen by Provider: 11/29/23 17:10 Source: patient Mode of arrival: ambulatory Limitations: no limitations History of Present Illness HPI narrative: This is a 53-year-old male that presents to the emergency department for alcohol abuse. Reports he drinks daily, he would like to stop. He is having trouble with withdrawal symptoms if he does not drink. This morning he was feeling anxious and shaky so he did drink some beer to stop the symptoms. He would like to quit drinking and wants further resources for this. He has not had a seizure due to withdrawal. Denies fever, abdominal pain, vomiting, hallucinations. Related Data Home Medications Medication Instructions Recorded Confirmed amlodipine 10 mg tablet 10 mg PO DAILY 04/04/21 05/29/23 rosuvastatin 5 mg tablet 5 mg PO DAILY 05/29/23 05/29/23 Allergies Allergy/AdvReac Type Severity Reaction Status Date / Time No Known Allergies Allergy Verified 11/28/23 14:41 Review of Systems Review of Systems: CONSTITUTIONAL: Denies fever GASTROINTESTINAL: Denies abdominal pain, nausea, vomiting NEUROLOGIC: Denies headache All systems reviewed & are unremarkable except as noted in HPI and below PMFSH Past Medical History Medical History Alcoholic intoxication GERD (gastroesophageal reflux disease) HTN (hypertension) Pancreatitis Surgical History Surgical History History of esophagogastroduodenoscopy (EGD) Family History Family History (Updated 05/29/23 @ 10:48 by Pedro Osborne, [employer]AL [employer], ) Mother Family history non-contributory Social History Social History Smoking status: Current every day smoker Alcohol intake: current Substance use: current Substance use type: marijuana Living arrangements: with family Gender identity (if verbalized by the patient): Male Exam Narrative: GENERAL: Well-appearing, well-nourished, and in no acute distress. HEAD: Normocephalic, atraumatic. EYES: EOMI. ENT: Nares clear, no rhinorrhea or epistaxis. Mucous membranes moist. Oropharynx without tonsillar hypertrophy exudate or other lesions. CHEST: Clear to auscultation. No respiratory distress. No wheezes rales or rhonchi HEART: Regular rate and rhythm. No murmur heard. Normal peripheral pulses. ABDOMEN: Soft, nontender, nondistended, normal active bowel sounds. EXTREMITIES: Normal range of motion. No edema. SKIN: Warm, dry, no rash. NEURO: No focal deficits. Alert and oriented x3. PSYCH: Normal mood and affect Course Course Emergency Course: Care coordination consulted. He has been given resources for alcohol abuse Vital Signs Vital signs: Vital Signs Temperature 98.5 F 11/29/23 13:49 Pulse Rate 76 11/29/23 13:49 Respiratory Rate 16 11/29/23 13:49 Blood Pressure 152/79 H 11/29/23 13:49 Pulse Oximetry 100 11/29/23 13:49 Oxygen Delivery Room Air 11/29/23 13:49 Temperature 98.5 F 11/29/23 13:49 Pulse Rate 71 11/29/23 17:31 Respiratory Rate 18 11/29/23 17:31 Blood Pressure 143/84 H 11/29/23 17:31 Pulse Oximetry 100 11/29/23 17:31 Oxygen Delivery Room Air 11/29/23 13:49 MDM - Alcohol MDM Narrative Medical decision making narrative: Patient presents to the ER for alcohol abuse, wishing to stop drinking. No sings of withdrawal at this time. Mildly hypertensive. He has not been tachycardic, tremulous, had vomiting or any hallucinations. No history of withdrawal seizures. CBC without concerning findings. Metabolic panel with hypoglycemia. Patient was fed. His blood sugar did normalize. UA without evidence of infection. Drug screen is negative. Alcohol level is 53. Patient updated and agrees with plan of care. Care coordination consulted. He has
[2023-11-29 17:19] LABS: Basophils Absolute Auto 0.1 K/mm3 (0.0-0.1); Basophils Percent Auto 0.8 % (0.2-1.2); Eosinophils Absolute Auto 0.1 K/mm3 (0-0.3); Eosinophils Percent Auto 1.1 % (0-4.4); Hematocrit 42.8 % (42.0-52.0); Hemoglobin 14.6 g/dL (14.0-18.0); Immature Granulocyte Absolute 0.02 K/mm3 (0.00-0.031); Immature Granulocyte Percent A 0.2 % (0-0.5); Lymphocytes Percent Auto 23.6 % (18.3-44.2); Mean Corpuscular HGB Conc 34.1 g/dl (32-36); Mean Corpuscular Volume 96.6 fl (80-100); Mean Platelet Volume 9.9 fl (7.4-10.4); Monocytes Absolute Auto 0.6 K/mm3 (0.1-0.6); Monocytes Percent Auto 7.1 % (2.6-8.5); Neutrophils Percent Auto 67.2 % (45.5-73.1); Platelet Count Result 197 k/mm3 (150-375); Red Blood Count 4.43 M/mm3 (4.6-6.20); White Blood Count 8.9 K/mm3 (4.5-10.0)
[2023-11-29] MEDS: SODIUM CHLORIDE 0.9% IV 1,000 ML 999 ML IV CONT (17:22)
[2023-11-29 17:28] LABS: INR 0.9; Prothrombin Time 12.3 Seconds (11.1-14.7)
[2023-11-29 17:29] LABS: Partial Thromboplastin Time 30.4 SECONDS (22.3-36.8)
[2023-11-29 17:32] LABS: Ethanol 53 mg/dL (<10)
[2023-11-29 17:44] LABS: Alanine Aminotransferase 56 U/L (6-50); Alkaline Phosphatase 67 U/L (38-126); Anion Gap 15 mmol/L (8-16); Aspartate Amino Transferase 69 U/L (17-59); Bilirubin,Total 1.1 mg/dL (0.2-1.3); Blood Urea Nitrogen 7 mg/dL (9-20); Calcium 9.7 mg/dL (8.4-10.2); Carbon Dioxide 22 mmol/L (22-30); Chloride 101 mmol/L (98-107); Estimated CRCL calculation 68 ml/min; Estimated Glomerular Filt Rate > 60; Glucose 57 mg/dL (65-110); Lipase 43 U/L (23-300); Magnesium 2.3 mg/dL (1.6-2.3); Sodium 138 mmol/L (137-145)
[2023-11-29] MEDS: PANTOPRAZOLE SODIUM IV 40 MG VIAL IV PUSH (17:44)
--- NOTE | 2023-11-29 17:47 | PCCCNOTE ---
CC was called to the ED to provide resources for alcohol withdraw to pt. Pt was given information on facilities, including [facility]. He would like for P[facility], from [facility] to reach out to him as soon as possible. Face sheet and information left for Pasc[facility]. Pt denies any further needs at this time.
[2023-11-29 17:52] LABS: Amphetamine Screen Urine Negative (Negative); Barbiturate Screen Urine Negative (Negative); Benzodiazepines Screen Urine Negative (Negative); Cannabinoid Screen Urine Negative (Negative); Cocaine Screen Urine Negative (Negative); Methadone Screen Urine Negative (Negative); Opiate Screen Urine Negative (Negative); Phencyclidine Screen Urine Negative (Negative)
--- NOTE | 2023-11-29 18:00 | PC.NURSE ---
pt glucose 57, provider notified and requested to give food and juice to pt
[2023-11-29 18:14] LABS: Appearance Urine Clear (Clear); Bacteria Urine None Seen /hpf; Bilirubin Urine Negative (Negative); Blood Urine Trace (Negative); Color Urine Yellow (Yellow); Glucose Urine UA Negative (Negative); Ketones Urine Trace mg/dL (Negative); Leukocyte Esterase Ur Negative LEU/UL (Negative); Nitrate Urine Negative (Negative); Non Pathogenic Casts 0-2; Protein Urine Negative (Negative); RBC Urine 0-2 /hpf (0-2); Specific Grav Ur 1.008 (1.001-1.035); Squamous Epithelial Cell Urine None seen /hpf (Few); WBC Urine 0-5 /hpf
[2023-11-29 18:15] LABS: Add Urine Microscopic? YES
[2023-11-29 19:28] LABS: Glucose Point of Care 113 mg/dl (65-105)
== END 2023-11-29 19:57 | disposition home or self-care (01) ==
LOC: ANHED 19:30
PROVIDERS: Emergency Medicine; Emergency Provider Physician Assistant; PCP Hospitalist
DX: F10.10 Alcohol abuse, uncomplicated (principal); Y90.2 Blood alcohol level of 40-59 mg/100 ml; E16.2 Hypoglycemia, unspecified; I10 Essential (primary) hypertension; F17.200 Nicotine dependence, unspecified, uncomplicated
CPT/HCPCS: 36415; 80053; 80307; 81001; 82948; 83690; 83735; 85025; 85610; 85730; 96361; 96374; 99284; C9113; J7030

== ENCOUNTER 2024-04-29 14:13 | Observation (INO) | payer OTHER, SELFPAY ==
--- NOTE | ~2024-04-29 | CT_ITS ---
EXAMINATION: CT abdomen pelvis w con DATE: 04/29/2024 16:23 INDICATION: Right lower quadrant abdominal pain. Right flank pain. Nausea. TECHNIQUE: Computed tomography (CT) of the abdomen and pelvis was performed with 100 mL Omnipaque 350 intravenous contrast. Automated exposure control and iterative reconstruction technique were employe d. The dose-length product was 168.11 mGy-cm. COMPARISON: None. FINDINGS: The visualized portions of the lung bases demonstrate mild dependent atelectasis. No pleura l effusion. The heart size is normal. No pericardial effusion. The liver, gallbladder, spleen, pancre as, adrenal glands, and kidneys are normal. The appendix is fluid-filled and dilated to 12 mm with an appendicolith and surrounding fat stranding, consistent with appendicitis. There is calcified athero sclerosis of the aorta and many of the other arteries. There are no pathologically enlarged lymph nod es. There is trace ascites. There is mild thoracic spondylosis. IMPRESSION: 1. Acute appendicitis. Reviewed, dictated and finalized at location E. IMPRESSION: 1. Acute appendicitis.
[2024-04-29 14:15] VITALS: BP 150/76; PULSE 81; RESP 20; TEMP 36.7; O2SAT 100
--- NOTE | 2024-04-29 15:37 | ED.ABDPAIN ---
HPI - Abdominal Pain General Chief Complaint: Abdominal Pain Stated Complaint: ABD PAIN Time Seen by Provider: 04/29/24 15:17 History of Present Illness HPI narrative: 53-year-old male with prior history of alcohol abuse and recurrent pancreatitis presents to the emergency department for evaluation for right lower quadrant abdominal pain. Patient states he has not drank any alcohol in approximately 5 months. Patient states he began having right lower quadrant abdominal pain approximately 2 days ago. Patient did take some omeprazole states this did not help. Patient does report associated nausea and vomiting. Related Data Home Medications Medication Instructions Recorded Confirmed amlodipine 10 mg tablet 10 mg PO DAILY 04/04/21 05/29/23 rosuvastatin 5 mg tablet 5 mg PO DAILY 05/29/23 05/29/23 Allergies Allergy/AdvReac Type Severity Reaction Status Date / Time No Known Allergies Allergy Verified 04/29/24 16:07 Review of Systems Review of Systems: All systems reviewed & are unremarkable except as noted in HPI and below PMFSH Past Medical History Medical History Alcoholic intoxication GERD (gastroesophageal reflux disease) HTN (hypertension) Pancreatitis Surgical History Surgical History History of esophagogastroduodenoscopy (EGD) Family History Family History (Updated 05/29/23 @ 10:48 by ALEXANDR TubbsP, ) Mother Family history non-contributory Social History Social History Smoking status: Current every day smoker Alcohol intake: current Substance use: current Substance use type: marijuana Living arrangements: with family Gender identity (if verbalized by the patient): Male Exam Narrative: APPEARANCE: Well appearing, no pain, no distress, well-nourished. HEAD: normocephalic, atraumatic. EYES: PERRLA/EOMI, conjunctivae clear. NOSE: Normal no drainage EARS:TMS clear with good light reflex. THROAT: Pharynx clear, no exudate. NECK: Supple. No adenopathy, no masses. RESPIRATORY: Airway patent, respirations nonlabored. Clear to auscultation bilaterally, no rales, rhonchi, wheezing. CARDIOVASCULAR: Regular rate and rhythm without murmurs rubs or gallops. ABDOMINAL: Right lower quadrant tenderness to palpation MUSCULOSKELETAL: Moves all extremities. Strength/ROM intact, No edema, No calf tenderness. NEURO: Alert. Cranial nerves II through XII intact. Grossly intact SKIN: Warm, dry. Normal Color Course Course Emergency Course: Patient was diagnosed with acute appendicitis, surgery was consulted and patient was admitted to the hospitalist. Vital Signs Vital signs: Vital Signs Temperature 98.1 F 04/29/24 14:15 Pulse Rate 81 04/29/24 14:15 Respiratory Rate 20 04/29/24 14:15 Blood Pressure 150/76 H 04/29/24 14:15 Pulse Oximetry 100 04/29/24 14:15 Oxygen Delivery Room Air 04/29/24 14:15 Temperature 98.1 F 04/29/24 14:15 Pulse Rate 68 04/29/24 18:15 Respiratory Rate 19 04/29/24 18:15 Blood Pressure 157/84 H 04/29/24 18:15 Pulse Oximetry 100 04/29/24 18:15 Oxygen Delivery Room Air 04/29/24 14:15 MDM - Abdominal Pain MDM Narrative Medical decision making narrative: 53-year-old male presents emergency department for evaluation of right lower quadrant pain it has been ongoing for the last 2 days. Patient is afebrile but does have leukocytosis 14.0 stable hemoglobin 14.3. Patient has no acute abnormalities on his CMP. UA was negative for urinary tract infection. CT was positive for acute appendicitis. Patient was initially started on Cipro and Flagyl switched to Zosyn per surgery. Case is discussed with surgery and patient will be seen by Dr. Donahue as consult and but to the hospitalist. Patient was updated results of his workup plan for admission. All
[2024-04-29 15:53] LABS: Basophils Percent Auto 0.3 % (0.2-1.2); Eosinophils Absolute Auto 0.1 K/mm3 (0-0.3); Eosinophils Percent Auto 0.5 % (0-4.4); Hematocrit 40.5 % (42.0-52.0); Hemoglobin 14.3 g/dL (14.0-18.0); Immature Granulocyte Absolute 0.04 K/mm3 (0.00-0.031); Immature Granulocyte Percent A 0.3 % (0-0.5); Lymphocytes Absolute Auto 2.09 K/mm3 (0.9-3.2); Lymphocytes Percent Auto 14.9 % (18.3-44.2); Mean Corpuscular HGB Conc 35.3 g/dl (32-36); Mean Corpuscular Hemoglobin 32.1 pg (26-34); Mean Platelet Volume 8.7 fl (7.4-10.4); Monocytes Absolute Auto 0.9 K/mm3 (0.1-0.6); Monocytes Percent Auto 6.4 % (2.6-8.5); Neutrophils Absolute Auto 10.9 K/mm3 (1.3-6.7); Neutrophils Percent Auto 77.6 % (45.5-73.1); Platelet Count Result 191 k/mm3 (150-375); Red Blood Count 4.45 M/mm3 (4.6-6.20); Red Cell Distribution Width 12.6 % (11.5-14.5)
[2024-04-29] MEDS: ONDANSETRON INJ 4 MG/2 ML VIAL IV PUSH (16:00)
[2024-04-29] MEDS: HYDROmorphone HCL INJ (*CRX) 1 MG/ML SYR IV PUSH (16:00)
[2024-04-29 16:03] LABS: Alanine Aminotransferase 15 U/L (6-50); Albumin Level 4.6 g/dL (3.5-5.1); Alkaline Phosphatase 66 U/L (38-126); Anion Gap 7 mmol/L (4-12); Aspartate Amino Transferase 32 U/L (17-59); Blood Urea Nitrogen 7 mg/dL (9-20); Calcium 9.2 mg/dL (8.4-10.2); Carbon Dioxide 26 mmol/L (22-30); Chloride 103 mmol/L (98-107); Estimated CRCL calculation 64 ml/min; Estimated Glomerular Filt Rate > 60; Glucose 97 mg/dL (65-110); Lipase 38 U/L (23-300); Potassium 3.6 mmol/L (3.4-5.0); Sodium 136 mmol/L (137-145)
[2024-04-29 16:07] VITALS: BP 150/80; PULSE 66; RESP 16; O2SAT 100
[2024-04-29 16:55] LABS: Appearance Urine Clear (Clear); Bacteria Urine None Seen /hpf; Bilirubin Urine Negative (Negative); Blood Urine 1+ (Negative); Color Urine Yellow (Yellow); Glucose Urine UA Negative (Negative); Ketones Urine Trace mg/dL (Negative); Leukocyte Esterase Ur Negative LEU/UL (Negative); Nitrate Urine Negative (Negative); Non Pathogenic Casts 0-2; Protein Urine Trace mg/dL (Negative); Squamous Epithelial Cell Urine None Seen /hpf (Few); WBC Urine 0-5 /hpf (0-3); pH Urine 5.5 (5.0-9.0)
[2024-04-29 17:02] LABS: Add Urine Microscopic? YES; Specific Grav Ur 1.015 (1.001-1.035)
[2024-04-29 17:34] LABS: Prothrombin Time 13.4 Seconds (11.1-14.7)
[2024-04-29 17:35] LABS: Partial Thromboplastin Time 32.7 Seconds (22.3-36.8)
[2024-04-29 18:15] VITALS: BP 157/84; PULSE 68; RESP 19; O2SAT 100
[2024-04-29] MEDS: PIPERACILLN/TAZ 3.375GM/NS50ML 3.375 GM/50 ML BAG IVPB (18:35)
[2024-04-29 20:00] VITALS: BMI 18.1
[2024-04-29 20:10] VITALS: BP 137/69; PULSE 63; RESP 20; TEMP 36.6; O2SAT 100
[2024-04-29] MEDS: HYDROmorphone HCL INJ (*CRX) 1 MG/ML SYR 0.5 MG IV PUSH (20:34)
[2024-04-29] MEDS: SODIUM CHLORIDE 0.9% IV 1,000 ML 75 ML IV CONT (20:35)
--- NOTE | 2024-04-29 20:39 | PM.IMHP ---
H&P: HPI History of Present Illness Date/Time: 04/29/24 21:15 Chief Complaint: Abdominal pain. Narrative: This a pleasant 53-year-old male with history of gastritis, pancreatitis (attributed to alcohol though he has been sober since December 2023), gastroesophageal reflux disease, hypertension, and hyperlipidemia who presented to the emergency department for evaluation of abdominal pain. The patient provides the following history. He reports the gradual onset of generalized abdominal discomfort on Tuesday. He had eaten something spicy the night before and thought it was perhaps GERD causing his symptoms so he began taking [id number] omeprazole without much benefit. As the days have gone on the pain has settled into the right lower quadrant and he describes a severe, almost constant aching pain in that area. The pain does not radiate and he gives no significant alleviating factors. It seems to be worse with palpation and minimal movement. He has also had sweats and nausea. He denies documented fever, vomiting, diarrhea, dysuria, and hematuria. In the ED: He was afebrile on arrival. Labs were significant for a WBC count of 14.0, sodium 136, BUN 7, creatinine 0.90, lipase 38. CT of the abdomen and pelvis showed acute appendicitis. His pain is improved after receiving hydromorphone. He has also received Zofran and was started on Zosyn and he is being admitted in this setting for further treatment and surgery consultation. Review of Systems Review of Systems: 12 systems were reviewed and are negative except for as per HPI. [facility] Past Medical History Medical History (Updated 04/29/24 @ 20:44 by Linette Simpson PA-C) Alcohol abuse Sober since December 2023. Gastroesophageal reflux disease Hyperlipidemia Hypertension Pancreatitis Surgical History Surgical History History of esophagogastroduodenoscopy (EGD) Family History Family History Mother Family history non-contributory Social History Social History (Updated 04/29/24 @ 20:45 by Linette Simpson PA-C) Social History: Surrogate medical decision maker: Tomas Hill, nain. Code status: Full code. Smoking status: Current every day smoker Additional smoking assessment comments: Smokes approximately 7 cigarettes a day. Alcohol intake: former Substance use: current Substance use type: marijuana Living arrangements: with family Meds Home Medications and Allergies Home Medications Medication Instructions Recorded Confirmed Type amlodipine 10 mg tablet 10 mg PO DAILY 04/04/21 04/29/24 History rosuvastatin 5 mg tablet 5 mg PO DAILY 05/29/23 04/29/24 History chlordiazepoxide HCl 25 mg capsule 25 mg PO BID PRN alcohol 08/30/23 04/29/24 Rx withdrawal #7 caps chlordiazepoxide HCl 25 mg capsule See Rx Instructions .Route 11/29/23 04/29/24 Rx .COMPLEX #25 caps omeprazole 20 mg capsule,delayed 20 mg PO DAILY PRN reflux 04/29/24 04/29/24 History release Allergies Allergy/AdvReac Type Severity Reaction Status Date / Time No Known Allergies Allergy Verified 04/29/24 16:07 Vital Signs Vital Signs - 24 hr 04/29/24 14:15 04/29/24 16:07 04/29/24 18:15 Temperature 98.1 F Pulse Rate 81 66 68 Respiratory Rate 20 16 19 Blood Pressure 150/76 H 150/80 H 157/84 H Pulse Oximetry 100 100 100 Oxygen Delivery Room Air 04/29/24 20:10 Temperature 97.8 F Pulse Rate 63 Respiratory Rate 20 Blood Pressure 137/69 Pulse Oximetry 100 Oxygen Delivery Exam Narrative: General: Well-developed, nontoxic-appearing male supine in bed in moderate pain. Weight: 54 kg. BMI: 18.6. HEENT: PERRL, EOMI. Sclera anicteric. Oral mucosa moist. Neck: Supple. Respiratory: Lungs are clear to auscultation bilaterally. Cardiovascular: Regular rate and rhythm with S1-S2. Gastrointestinal: Abdomen is soft and nondiste
--- NOTE | 2024-04-29 20:52 | ADMGEN ---
This patient, Yariel Hill, was admitted to [facility] Surg Room 330-01. Patient/family oriented to hospital policies and general routines including ID bracelet, bed and alarms, visiting hours, pain management, procedures, bathroom and other care routines, personal items, smoking policy, room service/diet, and visiting hours. Information on how to activate the Rapid Response Team has been discussed. Patient/Family are encouraged to report perceived risks to care and to ask questions if they do not understand what they are told or what they should do.
[2024-04-30] VITALS (7 sets, daily range): BP systolic 128–151; BP diastolic 71–76; PULSE 60–92; RESP 13–20; TEMP 36.3–36.8; O2SAT 98–100; BMI 18.1
[2024-04-30] MEDS: HYDROmorphone HCL INJ (*CRX) 1 MG/ML SYR 0.5 MG IV PUSH ×2 (00:56→05:54)
[2024-04-30] MEDS: PIPERACILLN/TAZ 3.375GM/NS50ML 3.375 GM/50 ML BAG IVPB ×2 (00:56→05:54)
[2024-04-30 04:19] LABS: Basophils Percent Auto 0.3 % (0.2-1.2); Eosinophils Absolute Auto 0.1 K/mm3 (0-0.3); Eosinophils Percent Auto 0.9 % (0-4.4); Hematocrit 39.1 % (42.0-52.0); Hemoglobin 13.4 g/dL (14.0-18.0); Immature Granulocyte Absolute 0.03 K/mm3 (0.00-0.031); Immature Granulocyte Percent A 0.2 % (0-0.5); Lymphocytes Percent Auto 17.4 % (18.3-44.2); Mean Corpuscular HGB Conc 34.3 g/dl (32-36); Mean Corpuscular Hemoglobin 32.1 pg (26-34); Mean Corpuscular Volume 93.8 fl (80-100); Mean Platelet Volume 8.8 fl (7.4-10.4); Monocytes Absolute Auto 0.9 K/mm3 (0.1-0.6); Monocytes Percent Auto 6.9 % (2.6-8.5); Neutrophils Absolute Auto 9.8 K/mm3 (1.3-6.7); Neutrophils Percent Auto 74.3 % (45.5-73.1); Platelet Count Result 189 k/mm3 (150-375); Red Blood Count 4.17 M/mm3 (4.6-6.20); Red Cell Distribution Width 12.5 % (11.5-14.5); White Blood Count 13.2 K/mm3 (4.5-10.0)
[2024-04-30 04:35] LABS: Anion Gap 5 mmol/L (4-12); Blood Urea Nitrogen 8 mg/dL (9-20); Calcium 8.8 mg/dL (8.4-10.2); Carbon Dioxide 28 mmol/L (22-30); Chloride 104 mmol/L (98-107); Estimated CRCL calculation 56 ml/min; Estimated Glomerular Filt Rate > 60; Glucose 90 mg/dL (65-110); Magnesium 1.8 mg/dL (1.6-2.3); Potassium 3.9 mmol/L (3.4-5.0); Sodium 137 mmol/L (137-145)
--- NOTE | 2024-04-30 06:54 | WPDCN ---
Assessment and Plan Assessment and plan (1) Acute appendicitis: Code(s): K35.80 - Unspecified acute appendicitis Status: Acute Assessment and Plan: The patient has been kept NPO and given pain medications. He has been on IV antibiotics. White blood cell count today is slightly decreased to 13,000 from 14,000 yesterday when he was admitted. He will need to go to the operating room this morning for emergent laparoscopic appendectomy possible conversion open appendectomy. Risks, benefits, indications, and expected outcomes were discussed in detail with the patient and/or family. They understand and I have answered all other questions. They wished to proceed with surgery as outlined above. HPI Data of Consult Date/Time: 04/30/24 06:54 Requesting Physician: Marsha Marc MD Primary Care Provider: Clare Kasper, Consult Narrative Reason for consult: Acute appendicitis Narrative: Yariel Hill is a 53 year old male admitted through the emergency room to the hospital yesterday with a 2 day history of worsening lower abdominal pain which eventually localized to the right lower quadrant of the abdomen. he had eating some spicy food and thought that he had reflux but the pain persisted. Workup in the emergency room [place] [address] [place] scan abdomen pelvis was performed showing a dilated and acutely inflamed appendix with a small appendicolith near the base of the appendix. No perforation or free air was seen. No abscess is seen. He has a prior history of acute pancreatitis due to alcohol abuse but apparently has been sober for the last 5 years. Review of Systems Review of Systems: The remainder of the review of systems to include constitutional, HEENT, cardiovascular, respiratory, GI, , integumentary, musculoskeletal, endocrine, immunologic, hematologic, psychiatric, and neurologic are all negative except for which is mentioned above in the HPI. [facility] Past Medical History Medical History Alcohol abuse Sober since December 2023. Gastroesophageal reflux disease Hyperlipidemia Hypertension Pancreatitis Surgical History Surgical History History of esophagogastroduodenoscopy (EGD) Family History Family History Mother Family history non-contributory Social History Social History Social History: Surrogate medical decision maker: Tomas Hill, sibling. Code status: Full code. Years smoked: 15 Smoking status: Current every day smoker Tobacco type: cigarettes Second hand tobacco smoke exposure: Yes Additional smoking assessment comments: Smokes approximately 7 cigarettes a day. Alcohol intake: former Substance use: current Substance use type: marijuana Do You Feel Safe in your Home?: Yes Lack of Transportation: No Lack of Food: Never True Current Housing: I Have Housing Concerned About Future Housing: No Difficulty Paying Gas/Electric Bills: No Difficulty Paying for Meds: No Currently Unemployed: No Education: High School Diploma/GED Difficulty w/ Childcare or Family Care: No Living arrangements: with family Spiritual care concerns: No Meds Home Medications and Allergies Home Medications Medication Instructions Recorded Confirmed Type amlodipine 10 mg tablet 10 mg PO DAILY 04/04/21 04/29/24 History rosuvastatin 5 mg tablet 5 mg PO DAILY 05/29/23 04/29/24 History chlordiazepoxide HCl 25 mg capsule 25 mg PO BID PRN alcohol 08/30/23 04/29/24 Rx withdrawal #7 caps chlordiazepoxide HCl 25 mg capsule See Rx Instructions .Route 11/29/23 04/29/24 Rx .COMPLEX #25 caps omeprazole 20 mg capsule,delayed 20 mg PO DAILY PRN reflux 04/29/24 04/29/24 History release Allergies
--- NOTE | 2024-04-30 06:59 | WPDHPUPDATE1 ---
History and Physical Update Update Date/Time: 04/30/24 06:59 History and Physical has been reviewed, including an updated exam of the patient. There are NO changes in the patient's condition. Risks, benefits, and alternatives have been discussed and questions answered. Patient agrees to proceed with procedure.
--- NOTE | 2024-04-30 07:35 | PC.NURSE ---
Patient transported to [facility] by stretcher
[2024-04-30] MEDS: LACTATED RINGERS 1,000 ML 30 ML IV CONT ×3 (07:42→09:48)
--- NOTE | 2024-04-30 07:56 | WPDANESEPPF ---
Anes - Initial Pre Proc Eval Procedure: Operation Date: 04/30/24 08:00 Proposed Procedures p Laparoscopic Appendectomy - Vicente Donahue MD Date/Time: 04/30/24 07:56 Surgeon: Yue De La Cruz APRN Pre Op Diagnosis: Acute Appendicitis Patient Data Age: 53 Gender: M Height: 1.7 m Weight: 52.5 kg Last Vital Signs Temp 97.6 F 04/30/24 03:41 Pulse 67 04/30/24 03:41 Resp 20 04/30/24 03:41 BP 128/71 04/30/24 03:41 Pulse Ox 100 04/30/24 03:41 O2 Del Method Room Air 04/29/24 14:15 Allergies Allergy/AdvReac Type Severity Reaction Status Date / Time No Known Allergies Allergy Verified 04/29/24 16:07 Home Medications Medication Instructions Recorded Confirmed Type amlodipine 10 mg tablet 10 mg PO DAILY 04/04/21 04/29/24 History rosuvastatin 5 mg tablet 5 mg PO DAILY 05/29/23 04/29/24 History chlordiazepoxide HCl 25 mg capsule 25 mg PO BID PRN alcohol 08/30/23 04/29/24 Rx withdrawal #7 caps chlordiazepoxide HCl 25 mg capsule See Rx Instructions .Route 11/29/23 04/29/24 Rx .COMPLEX #25 caps omeprazole 20 mg capsule,delayed 20 mg PO DAILY PRN reflux 04/29/24 04/29/24 History release Laboratory Tests 04/29/24 04/29/24 04/30/24 15:48 16:44 04:02 WBC 14.0 H K/mm3 13.2 H K/mm3 (4.5-10.0) (4.5-10.0) RBC 4.45 L M/mm3 4.17 L M/mm3 (4.6-6.20) (4.6-6.20) Hgb 14.3 g/dL 13.4 L g/dL (14.0-18.0) (14.0-18.0) Hct 40.5 L % 39.1 L % (42.0-52.0) (42.0-52.0) MCV 91.0 fl 93.8 fl (80-100) (80-100) MCH 32.1 pg 32.1 pg (26-34) (26-34) MCHC 35.3 g/dl 34.3 g/dl (32-36) (32-36) RDW 12.6 % 12.5 % (11.5-14.5) (11.5-14.5) Plt Count 191 k/mm3 189 k/mm3 (150-375) (150-375) MPV 8.7 fl 8.8 fl (7.4-10.4) (7.4-10.4) Immature Gran % (Auto) 0.3 % 0.2 % (0-0.5) (0-0.5) Neut % (Auto) 77.6 H % 74.3 H % (45.5-73.1) (45.5-73.1) Lymph % (Auto) 14.9 L % 17.4 L % (18.3-44.2) (18.3-44.2) [place] % (Auto) 6.4 % 6.9 % (2.6-8.5) (2.6-8.5) Eos % (Auto) 0.5 % 0.9 % (0-4.4) (0-4.4) Baso % (Auto) 0.3 % 0.3 % (0.2-1.2) (0.2-1.2) Lymph # (Auto) 2.09 K/mm3 2.30 K/mm3 (0.9-3.2) (0.9-3.2) [place] # (Auto) 0.9 H K/mm3 0.9 H K/mm3 (0.1-0.6) (0.1-0.6) Eos # (Auto) 0.1 K/mm3 0.1 K/mm3 (0-0.3) (0-0.3) Baso # (Auto) 0.0 K/mm3 0.0 K/mm3 (0.0-0.1) (0.0-0.1) Abs Immat Gran (auto) 0.04 H K/mm3 0.03 K/mm3 (0.00-0.031) (0.00-0.031) Absolute Neuts (auto) 10.9 H K/mm3 9.8 H K/mm3 (1.3-6.7) (1.3-6.7) Absolute Nucleated RBC 0.000 K/mm3 0.000 K/mm3 (0.0-0.012) (0.0-0.012) Nucleated RBC % 0.0 % 0.0 % (0.0-0.2) (0.0-0.2) PT 13.4 Seconds (11.1-14.7) INR 1.0 APTT 32.7 Seconds (22.3-36.8) Sodium 136 L mmol/L 137 mmol/L (137-145) (137-145) Potassium 3.6 mmol/L 3.9 mmol/L (3.4-5.0) (3.4-5.0) Chloride 103 mmol/L 104 mmol/L (98-107) (98-107) Carbon Dioxide 26 mmol/L 28 mmol/L (22-30) (22-30) Anion Gap 7 mmol/L 5 mmol/L (4-12) (4-12) BUN 7 L mg/dL 8 L mg/dL (9-20) (9-20) Creatinine 0.90 mg/dL 1.00 mg/dL (0.7-1.3) (0.7-1.3) Estim Creat Clear Calc 64 ml/min 56 ml/min Estimated GFR > 60 > 60 (59 - ) (59 - ) Glucose 97 mg/dL 90 mg/dL (65-110) (65-110) Calcium 9.2 mg/dL 8.8 mg/dL (8.4-10.2) (8.4-10.2) Magnesium 1.8 mg/dL (1.6-2.3) Total Bilirubin 1.0 mg/dL (0.2-1.3) AST 32 U/L (17-59) ALT 15 U/L (6-50) Alkaline Phosphatase 66 U/L (38-126) Total Protein 8.0 g/dL (6.3-8.2) Albumin 4.6 g/dL (3.5-5.1) Lipase 38 U/L (23-300) Urine Color Yellow (Yellow) Urine Appearance Clear (Clear) Urine pH 5.5 (5.0-9.0)
[2024-04-30] MEDS: LIDO 1%/EPINEPHRINE/PF 1:200,000 30 ML VIAL XX (09:14)
[2024-04-30] MEDS: BUPivacaine HCL 0.5% 10 ML AMP 30 ML INFILTRATE (09:15)
--- NOTE | 2024-04-30 09:33 | PM.IMPN ---
Progress Note: A&P Assessment and Plan (1) Acute appendicitis: Code(s): K35.80 - Unspecified acute appendicitis Status: Acute Subjective Date/time seen: 04/30/24 09:33 Interval history: This 53-year-old male presented to the hospital on 04/29/2024 with complaints of abdominal pain. Workup in hospital included an abdominal pelvis CT which showed acute appendicitis. Initial labs showed a white blood cell count 14.0, blood sugar 57 with a repeat of 97 AST 69, ALT 56, lipase 43. UA was obtained which shown trace urine ketones otherwise normal. Urine drug screen was negative. Patient was given pain medication, antiemetics, and Rocephin while in the ED. general surgery was consulted. Patient denies any fever, chills, nausea, vomiting, diarrhea, chest pain, shortness of breath. He states his pain is minimal post laproscopic appendectomy. He has been tolerating food and drink. He also has been ambulating as instructed. Patient is stable for discharge at this time. He will need to remain off work for 2 weeks due to lifting restrictions and then follow up with General surgery in 2 weeks. Review of Systems Review of Systems: All systems reviewed & are unremarkable except as noted in HPI and below Constitutional: Constitutional: Reports as per HPI and Reports no additional constitutional complaints Eyes: Eyes: Reports as per HPI and Reports no additional eye complaints ENT: Reports system reviewed and no additional complaints, except as documented and Reports as per HPI Cardiovascular: Cardiovascular: Reports as per HPI and Reports no additional cardiovascular complaints Respiratory: Respiratory: Reports as per HPI and Reports no additional respiratory complaints Gastrointestinal: Gastrointestinal: Reports as per HPI and Reports no additional gastrointestinal complaints Genitourinary: Genitourinary: Reports no additional male genitourinary complaints and Reports as per HPI Musculoskeletal: Musculoskeletal: Reports no additional musculoskeletal complaints and Reports as per HPI Integumentary/Breasts: Skin/Breast: Reports system reviewed and no additional complaints, except as docu and Reports as per HPI Neurologic: Reports system reviewed and no additional complaints, except as documented and Reports as per HPI Psychiatric: Psychiatric: Reports no additional psychiatric complaints and Reports as per HPI Exam Narrative: General: In no acute distress, well nourished Head: atraumatic, no encephalopathy Eyes: EOMI, PERRLA, sclera clear ENT: moist mucous membranes, nasal passages clear Neck: supple, no JVD, no adenopathy, trachea midline Cardiac: Normal S1 and S2. RRR,No murmur, gallops or friction rubs, peripheral pulses intact. Respiratory: Lungs clear to auscultation, no adventitious lung sounds, currently on room air Gastrointestinal: soft,slightly distended, non-tender, normoactive bowel sounds. : voiding without difficulty. Extremities: moves all extremities well, no edema, good ROM, strength 5/5 Skin:Laps sites to abdomen with surgical glue Neuro: Alert and oriented x4, cranial nerves intact, no neuro deficits. Psych: normal mood, normal affect, interactive Objective Data Vital Signs Vital Signs: Vital Signs - 24 hr 04/29/24 14:15 04/29/24 16:07 04/29/24 18:15 Temperature 98.1 F Pulse Rate 81 66 68 Respiratory Rate 20 16 19 Blood Pressure 150/76 H 150/80 H 157/84 H Pulse Oximetry 100 100 100 Oxygen Delivery Room Air 04/29/24 20:10 04/30/24 03:41 04/30/24 07:45 Temperature 97.8 F 97.6 F 98.2 F Pulse Rate 63 67 92 Respiratory Rate 20 20 20 Blood Pressure 137/69 128/71 139/76 Pulse Oximetry 100 100 100 Oxygen Delivery Room Air Intake/Output Intake/Output: Intake & Output 04/27/24 04/28/24 04/29/24 04/30/24 23:59 23:59 23:59 23:59 Intake Total 60 50 Balance 60 50 Meds/Results Medications: Active Medications Generic Name Dose Route Start Last Admin Trade Name Pérez
--- NOTE | 2024-04-30 10:00 | P.OP_ITS ---
Procedure Note - Detailed Date of Procedure 04/30/24 Pre-op Diagnosis Acute Appendicitis Post-op Diagnosis Same Procedure Performed Laparoscopic appendectomy. Surgeon Vicente Donahue MD Clinical Account Executive Darline MACARIO Anesthesia General Indications Patient is a 53-year-old gentleman who presented to the emergency with a 2 day history of worsening lower abdominal pain that localized to the right lower quadrant the abdomen. He had a leukocytosis of about 14,000. CT scan abdomen pelvis showed a dilated inflamed appendix without perforation or periappendiceal abscess. He presents now for emergent laparoscopic appendectomy. Findings The appendix was acutely inflamed all the way back up to the base of the appendix but there was no necrosis of the base of the appendix. No abscess was seen. Description of Procedure After informed consent was obtained patient brought to the operating room was placed supine position and general endotracheal anesthesia was administered. The abdomen was then prepped and draped usual sterile fashion after placement of Zamora catheter to decompress the bladder. A time-out was then performed correctly identifying the patient as well as procedure to be performed. He was given scheduled IV antibiotics. I then entered the abdomen left upper quadrant utilizing a 5mm Optiview port. Once inside the abdomen insufflated to adequate pneumoperitoneum of 15mmHg of CO2. Then placed a 12mm periumbilical trocar port as well as 2 more 5mm suprapubic and right lower quadrant trocar ports all under direct visualization. Working through these ports I was then able to visualize the appendix the right lower quadrant the abdomen. It was acutely inflamed throughout its whole length. There was no necrosis of the base of the appendix however. Utilizing laparoscopic graspers as able to elevate the appendix and then make a defect through the mesoappendix utilizing a [place] dissector. A 45mm Endo-KARLI stapler was then used to divide the appendix flush with the cecum. A vascular reload to the Endo-KARLI stapler was then used to divide the mesoappendix. The appendix was then placed into an Endo-Catch bag and brought out through the periumbilical trocar port site appears passed off the table and sent to pathology for examination. I then irrigated out the right lower quadrant the abdomen all staple lines. Hemostasis was good. I then aspirated t he fluid from right lower quadrant from the pelvis. I then removed all the trocar ports under visualization all port sites appeared hemostatic. Then allowed the abdomen decompress. I then irrigated all the port sites sterile saline solution hemostasis was good. I then closed the 12mm periumbilical trocar port fascial defect utilizing 0 Vicryl suture placed in a figure-eight fashion at the fascia. The incisions were then all closed utilizing a running subcuticular 4 Monocryl suture. The incisions were then cleaned and skin glue was applied. The patient tolerated the procedure well no complications. All sponges, needles, and instrument counts were correct at the end procedure. EBL was _10__cc. The patient was awakened and taken to recovery in stable and satisfactory condition. Implants None Estimated Blood Loss 10 Drains No Packing No Pathology Yes (Appendix to pathology) Complications No immediate complications Condition Stable Disposition PACU [facility] Billing Surgery - Charge Forward: Surgery Billing
[2024-04-30] MEDS: fentaNYL CITRATE INJ (*CRX) 100 MCG/2 ML VIAL 25 MCG IV PUSH (10:05)
[2024-04-30] MEDS: ONDANSETRON INJ 4 MG/2 ML VIAL IV PUSH (10:08)
--- NOTE | 2024-04-30 10:50 | PC.NURSE ---
Patient back in room, transferred from stretcher to bed.
[2024-04-30] MEDS: amLODIPine BESYLATE 5 MG TABLET 10 MG PO (11:36)
[2024-04-30] MEDS: ROSUVASTATIN 5 MG TABLET PO (11:36)
[2024-04-30] MEDS: HYDROcodone/acetaminophen (*CRX) 5-325 MG TABLET 1 TAB PO ×2 (13:44→16:17)
--- NOTE | 2024-04-30 15:17 | PM.DS ---
DS: Admitting Diagnosis Discharge Date 04/30/24 Admitting Diagnosis Acute appendicitis Hypertension Hyperlipidemia GERD DS: Summary Hospital Course Reason for hospitalization: Acute appendicitis Hypertension Hyperlipidemia GERD Hospital Course: This 53-year-old male presented to the hospital on 04/29/2024 with complaints of abdominal pain. Workup in hospital included an abdominal pelvis CT which showed acute appendicitis. Initial labs showed a white blood cell count 14.0, blood sugar 57 with a repeat of 97 AST 69, ALT 56, lipase 43. UA was obtained which shown trace urine ketones otherwise normal. Urine drug screen was negative. Patient was given pain medication, antiemetics, and Rocephin while in the ED. general surgery was consulted and took patient to OR for Laparoscopic appendectomy Patient denies any fever, chills, nausea, vomiting, diarrhea, chest pain, shortness of breath. He states his pain is minimal post laparoscopic appendectomy. He has been tolerating food and drink. He also has been ambulating as instructed. Patient is stable for discharge at this time. He will need to remain off work for 2 weeks due to lifting restrictions and then follow up with General surgery in 2 weeks. Final diagnosis: Acute appendicitis Status at Discharge Cognitive/behavioral status at discharge: Alert oriented x4 Functional status at discharge: independent ambulation Overall status at discharge: patient is progressing back to baseline Time Spent with Patient Time attestation: Total time spent providing and/or coordinating discharge services: Time spent: Greater than 30 minutes Exam Narrative: General: In no acute distress, well nourished Head: atraumatic, no encephalopathy Eyes: EOMI, PERRLA, sclera clear ENT: moist mucous membranes, nasal passages clear Neck: supple, no JVD, no adenopathy, trachea midline Cardiac: Normal S1 and S2. RRR, No murmur, gallops or friction rubs, peripheral pulses intact. Respiratory: Lungs clear to auscultation, no adventitious lung sounds, currently on room air Gastrointestinal: soft,slightly distended, non-tender, normoactive bowel sounds. : voiding without difficulty. Extremities: moves all extremities well, no edema, good ROM, strength 5/5 Skin: Laps sites to abdomen with surgical glue Neuro: Alert and oriented x4, cranial nerves intact, no neuro deficits. Psych: normal mood, normal affect, interactive DS: Data Data Completed and Pending Completed studies during hospitalization: CT of the abdomen and pelvis Pending studies at discharge: Pending at discharge 04/30/24 09:07 Surgical [PTH] Routine Labs on day of discharge: Labs from last 24 hours 04/30/24 04/29/24 04/29/24 04:02 16:44 15:48 WBC 13.2 H 14.0 H RBC 4.17 L 4.45 L Hgb 13.4 L 14.3 Hct 39.1 L 40.5 L MCV 93.8 91.0 MCH 32.1 32.1 MCHC 34.3 35.3 RDW 12.5 12.6 Plt Count 189 191 MPV 8.8 8.7 Immature Gran % (Auto) 0.2 0.3 Neut % (Auto) 74.3 H 77.6 H Lymph % (Auto) 17.4 L 14.9 L [place] % (Auto) 6.9 6.4 Eos % (Auto) 0.9 0.5 Baso % (Auto) 0.3 0.3 Lymph # (Auto) 2.30 2.09 [place] # (Auto) 0.9 H 0.9 H Eos # (Auto) 0.1 0.1 Baso # (Auto) 0.0 0.0 Abs Immat Gran (auto) 0.03 0.04 H Absolute Neuts (auto) 9.8 H 10.9 H Absolute Nucleated RBC 0.000 0.000 Nucleated RBC % 0.0 0.0 PT 13.4 INR 1.0 APTT 32.7 Sodium 137 136 L Potassium 3.9 3.6 Chloride 104 103 Carbon Dioxide 28 26 Anion Gap 5 7 BUN 8 L 7 L Creatinine 1.00 0.90 Estim Creat Clear Calc 56 64 Estimated GFR > 60 > 60 Glucose 90 97 Calcium 8.8 9.2 Magnesium 1.8 Total Bilirubin 1.0 AST 32 ALT 15 Alkaline Phosphatase 66 Total Protein 8.0 Albumin 4.6 Lipase 38 Urine Color Yellow Urine Appearance Clear Urine pH 5.5 Ur Specific [place] 1.015 Urine Protein Trace Urine Glucose (UA) Negative Urine Ketones Trace H
== END 2024-04-30 18:00 | disposition home or self-care (01) ==
LOC: ANHED 15:21 → ANH3MEDSUR 18:37
PROVIDERS: Emergency Medicine; Physician Assistant; Surgery; Admitting Provider General Practice; Emergency Provider Emergency Medicine; PCP Hospitalist; Visit Provider Nurse Practitioner Acute Care
PROC: 0DTJ4ZZ Resection of Appendix, Percutaneous Endoscopic Approach (ICD-10-PCS; CPT 44970; principal; 2024-04-30 08:00)
DX: K35.80 Unspecified acute appendicitis (principal); I10 Essential (primary) hypertension; K21.9 Gastro-esophageal reflux disease without esophagitis; E78.5 Hyperlipidemia, unspecified; F17.210 Nicotine dependence, cigarettes, uncomplicated; F12.90 Cannabis use, unspecified, uncomplicated
CPT/HCPCS: 44970; 36415; 74177; 80048; 80053; 81001; 83690; 83735; 85025; 85610; 85730; 87040; 88304; 96365; 96374; 96375; 96376; 99285; A9270; G0378; G0379; J0330; J0696; J1100; J1170; J1885; J2405; J2543; J2704; J3010; J7030; J7120; Q9967

== ENCOUNTER 2024-07-06 13:44 | Emergency (ER) | payer OTHER, SELFPAY ==
[2024-07-06 13:50] VITALS: BP 141/72; PULSE 86; RESP 16; TEMP 36.7; O2SAT 98
--- NOTE | 2024-07-06 18:05 | ED.ALCOHOL ---
HPI - Alcohol General Chief Complaint: Alcohol <Cheryl Cutler PA-C - Last Filed: 07/07/24 15:44> Stated Complaint: Gastritis and alcohol withdrawal <Cheryl Cutler PA-C - Last Filed: 07/07/24 15:44> Time Seen by Provider: 07/06/24 18:06 <Cheryl Cutler PA-C - Last Filed: 07/07/24 15:44> Focused HPI: This is a 54-year-old male that presents to the emergency department for burning epigastric pain. Reporting history of gastritis due to alcohol use. Reports he last drink about 5 hours ago. Reports history of withdrawal symptoms such as anxiety and shaking. He has never experienced a withdrawal seizure before. He is requesting a Librium prescription. GENERAL: Well-appearing, well-nourished, and in no acute distress. HEAD: Normocephalic, atraumatic. CHEST: Clear to auscultation. ?No respiratory distress. HEART: Regular rate and rhythm.? NEURO: ?Alert and oriented x3. Patient screened in triage and initial orders placed.? ?Additional care and disposition to be based upon?diagnostic testing and treatment. <Cheryl Cutler PA-C - Last Filed: 07/07/24 15:44> History of Present Illness HPI narrative: 54-year-old male presenting with epigastric pain. States that he has been drinking liquor and beer for the last 5 days. States he was sober for approximately 6 months prior to this last week. Complaints of burning epigastric pain that he states happens whenever he drinks too much. States that he has also not been eating and has had mild nausea. States that he wants to stop drinking and would like a Librium taper. He denies SI or HI. Reports withdrawal symptoms of anxiety and mild shaking. Denies further complaints. <Pam Taylor MD - Last Filed: 07/07/24 23:07> Related Data Home Medications: Home Medications Medication Instructions Recorded Confirmed amlodipine 10 mg tablet 10 mg PO DAILY 04/04/21 05/15/24 rosuvastatin 5 mg tablet 5 mg PO DAILY 05/29/23 05/15/24 omeprazole 20 mg capsule,delayed 20 mg PO DAILY PRN reflux 04/29/24 05/15/24 release <Cheryl Cutler PA-C - Last Filed: 07/07/24 15:44> Allergies/Adverse Reactions: Allergies Allergy/AdvReac Type Severity Reaction Status Date / Time No Known Allergies Allergy Verified 05/15/24 09:17 <Cheryl Cutler PA-C - Last Filed: 07/07/24 15:44> Review of Systems Review of Systems: All systems reviewed & are unremarkable except as noted in HPI and below <Pam Taylor MD - Last Filed: 07/07/24 23:07> [facility] Past Medical History Medical History: Medical History Alcohol abuse Sober since December 2023. Gastroesophageal reflux disease Hyperlipidemia Hypertension Pancreatitis <Cheryl Cutler PA-C - Last Filed: 07/07/24 15:44> Surgical History Surgical History: Surgical History History of esophagogastroduodenoscopy (EGD) History of laparoscopic appendectomy <Cheryl Cutler PA-C - Last Filed: 07/07/24 15:44> Family History Family History: Family History Mother Family history non-contributory <Cheryl Cutler PA-C - Last Filed: 07/07/24 15:44> Social History Social History: Social History Social History: Surrogate medical decision maker: Tomas Hill, sibling. Code status: Full code. Years smoked: 15 Smoking status: Current every day smoker Tobacco type: cigarettes Second hand tobacco smoke exposure: Yes Additional smoking assessment comments: Smokes approximately 7 cigarettes a day. Alcohol intake: former Substance use: current Substance use type: marijuana Do You Feel Safe in your Home?: Yes Lack of Transportation: No Lack of Food: Never True Current Housing: I Have Housing Concerned About Future Hous
[2024-07-06 18:25] LABS: Basophils Absolute Auto 0.1 K/mm3 (0.0-0.1); Basophils Percent Auto 0.9 % (0.2-1.2); Eosinophils Absolute Auto 0.3 K/mm3 (0-0.3); Eosinophils Percent Auto 3.6 % (0-4.4); Hematocrit 41.4 % (42.0-52.0); Hemoglobin 14.5 g/dL (14.0-18.0); Immature Granulocyte Absolute 0.01 K/mm3 (0.00-0.031); Immature Granulocyte Percent A 0.1 % (0-0.5); Lymphocytes Absolute Auto 3.37 K/mm3 (0.9-3.2); Lymphocytes Percent Auto 38.3 % (18.3-44.2); Mean Corpuscular Volume 91.4 fl (80-100); Mean Platelet Volume 8.9 fl (7.4-10.4); Monocytes Absolute Auto 0.6 K/mm3 (0.1-0.6); Monocytes Percent Auto 6.3 % (2.6-8.5); Neutrophils Absolute Auto 4.5 K/mm3 (1.3-6.7); Neutrophils Percent Auto 50.8 % (45.5-73.1); Platelet Count Result 157 k/mm3 (150-375); Red Blood Count 4.53 M/mm3 (4.6-6.20); Red Cell Distribution Width 12.5 % (11.5-14.5); White Blood Count 8.8 K/mm3 (4.5-10.0)
[2024-07-06 18:41] LABS: Ethanol 27 mg/dL (<10)
[2024-07-06 18:45] LABS: Alanine Aminotransferase 31 U/L (6-50); Alkaline Phosphatase 90 U/L (38-126); Anion Gap 15 mmol/L (4-12); Aspartate Amino Transferase 83 U/L (17-59); Blood Urea Nitrogen 11 mg/dL (9-20); Calcium 9.8 mg/dL (8.4-10.2); Carbon Dioxide 21 mmol/L (22-30); Chloride 99 mmol/L (98-107); Estimated CRCL calculation 73 ml/min; Estimated Glomerular Filt Rate > 60; Glucose 48 mg/dL (65-110); Lipase 51 U/L (23-300); Potassium 4.7 mmol/L (3.4-5.0); Sodium 135 mmol/L (137-145)
--- NOTE | 2024-07-06 18:45 | PC.NURSE ---
Lab called with critical blood sugar of 48. Discussed with KI Luna. Determined feeding pt was best option. OJ x 2 and chips provided to pt. Will have triage recheck glucose in 1 hour.
[2024-07-06 19:52] LABS: Glucose Point of Care 154 mg/dl (65-105)
[2024-07-06] MEDS: PANTOPRAZOLE SODIUM IV 40 MG VIAL IV PUSH (20:47)
[2024-07-06] MEDS: SODIUM CHLORIDE 0.9% IV 1,000 ML 999 ML IV CONT (20:48)
[2024-07-06 20:49] VITALS: BP 134/86; PULSE 80; RESP 15; O2SAT 100
[2024-07-06 21:10] LABS: Prothrombin Time 13.2 Seconds (11.1-14.7)
[2024-07-06] MEDS: chlordiazePOXIDE (*CRX) 25 MG CAPSULE 50 MG PO (21:50)
[2024-07-06 22:08] VITALS: BP 148/92; PULSE 77; RESP 15; O2SAT 98
== END 2024-07-06 22:08 | disposition home or self-care (01) ==
PROVIDERS: Physician Assistant; Emergency Provider Emergency Medicine; PCP Hospitalist
DX: R10.13 Epigastric pain (principal); F10.930 Alcohol use, unspecified with withdrawal, uncomplicated; E78.5 Hyperlipidemia, unspecified; I10 Essential (primary) hypertension; F17.210 Nicotine dependence, cigarettes, uncomplicated
CPT/HCPCS: 36415; 80053; 80307; 82948; 83690; 85025; 85610; 85730; 96361; 96374; 99284; A9270; J2470; J7030

== ENCOUNTER 2024-10-28 18:02 | Emergency (ER) | payer OTHER, SELFPAY ==
[2024-10-28 18:18] VITALS: BP 150/90; PULSE 72; RESP 16; TEMP 36.2; O2SAT 100
[2024-10-28 20:45] VITALS: BP 135/81; PULSE 81; RESP 16; O2SAT 100
--- NOTE | 2024-10-28 20:50 | PC.NURSE ---
pt tells this RN upon assessment that they are intoxicated at this time and do not have withdrawal symptoms but would like Librium to manage symptoms when they become sober
--- NOTE | 2024-10-28 20:51 | PC.NURSE ---
last alcohol consumption was 3 hours ago according to pt. denies any hx of with drawl seizures
--- NOTE | 2024-10-28 20:55 | ED_ITS ---
HPI - Alcohol General Chief Complaint: Alcohol Stated Complaint: alcohol intoxication Time Seen by Provider: 10/28/24 20:35 Source: patient Mode of arrival: ambulatory Limitations: no limitations History of Present Illness HPI narrative: This is a 54-year-old male who presents to the ED for alcoholic intoxication. Patient states that he will often go on binges of drinking heavily. He states since the s of he has been drinking a lot more. He is seeking assistance with quitting alcohol. He has been on a Librium taper in the past and is requesting this today. He has no medical complaints or any psychiatric complaints. States his last drink was 3 hours prior to arrival. Related Data Home Medications ?Medication ?Instructions ?Recorded ?Confirmed ?Last Taken ?Type amlodipine 10 mg tablet 10 mg PO DAILY 04/04/21 05/15/24 04/28/24 20:00 History rosuvastatin 5 mg tablet 5 mg PO DAILY 05/29/23 05/15/24 04/28/24 20:00 History omeprazole 20 mg capsule,delayed 20 mg PO DAILY PRN reflux 04/29/24 05/15/24 04/29/24 12:00 History release Allergies Allergy/AdvReac Type Severity Reaction Status Date / Time No Known Allergies Allergy Verified 10/28/24 18:03 Review of Systems Review of Systems: All systems as dictated in [facility] Past Medical History Medical History Alcohol abuse Sober since December 2023. Gastroesophageal reflux disease Hyperlipidemia Hypertension Pancreatitis Surgical History Surgical History History of esophagogastroduodenoscopy (EGD) History of laparoscopic appendectomy Family History Family History Mother Family history non-contributory Social History Social History Social History: Surrogate medical decision maker: Tomas Hill, sibling. Code status: Full code. Years smoked: 15 Smoking status: Current every day smoker Tobacco type: cigarettes Second hand tobacco smoke exposure: Yes Additional smoking assessment comments: Smokes approximately 7 cigarettes a day. Alcohol intake: former Substance use: current Substance use type: marijuana Do You Feel Safe in your Home?: Yes Lack of Transportation: No Lack of Food: Never True Current Housing: I Have Housing Concerned About Future Housing: No Difficulty Paying Gas/Electric Bills: No Difficulty Paying for Meds: No Currently Unemployed: No Education: High School Diploma/GED Difficulty w/ Childcare or Family Care: No Living arrangements: with family Spiritual care concerns: No Exam Narrative: GENERAL: Well-appearing, well-nourished, and in no acute distress. HEAD: Normocephalic, atraumatic. EYES: PERRLA and EOMI. ENT: Nares clear, no rhinorrhea or epistaxis. Mucous membranes moist. Oropharynx without tonsillar hypertrophy exudate or other lesions. NECK: Supple. No adenopathy or masses. CHEST: No respiratory distress. Clear to auscultation. No wheezes rales or rhonchi HEART: Regular rate and rhythm. No murmur heard. Normal peripheral pulses. ABDOMEN: Soft, nontender, nondistended, normal active bowel sounds. MSK: Normal range of motion. No edema. SKIN: Warm, dry, no rash. NEURO: Alert and oriented x4. No focal deficits. PSYCH: Normal mood and affect. Course Vital Signs Vital signs: Vital Signs Temperature 97.2 F L 10/28/24 18:18 Pulse Rate 72 10/28/24 18:18 Respiratory Rate 16 10/28/24 18:18 Blood Pressure 150/90 H 10/28/24 18:18 Pulse Oximetry 100 10/28/24 18:18 Temperature 97.2 F L 10/28/24 18:18 Pulse Rate 81 10/28/24 20:45 Respiratory Rate 16 10/28/24 20:45 Blood Pressure 135/81 10/28/24 20:45 Pulse Oximetry 100 10/28/24 20:45 MDM - Alcohol MDM Narrative Medical decision making narrative: This is a 54-year-old male who presents to the ED for alcoholic abuse. He is seeking assistance with alcohol cessation. Vitals are normal. On exam patient does not exhibit clinical intoxication. His words are not slurred. He is ambulatory without assistance. He is alert oriented x4 and has no medical complaints. He is seeking a Librium taper for help with stopping alcohol. Librium taper was prescribed and encouraged patient to follow-up with PCP on this issue. Patient will be discharged in stable condition. Supportive measures discussed and return precautions given. Patient is understanding and agreeable with plan for discharge with PCP follow-up. Discharge Plan Discharge Clinical Impression: Alcoholism Patient Disposition: Home, Self-Care Condition: Stable Instructions: Antibiotic Form Additional Instructions: You will be given Librium taper to take in order to assist with stopping alcohol. Follow-up with your regular doctor regarding alcohol cessation. Please refrain from abusing alcohol the future. If you have any new or worsening symptoms please return to the ER for further evaluation. Patient Language: Faroese Prescriptions: New chlordiazepoxide HCl 25 mg capsule 25 mg PO QID PRN (Reason: alcohol withdrawal) Qty: 15 0RF Rx Instructions: Day 1: 50mg q6h Day 2: 25mg q6h Day 3: 25mg q12h Day 4: 25mg at night (Rx fifteen 25mg tabs) No Action rosuvastatin 5 mg tablet 5 mg PO DAILY amlodipine 10 mg tablet 10 mg PO DAILY omeprazole 20 mg capsule,delayed release(DR/EC) 20 mg PO DAILY PRN (Reason: reflux) omeprazole 20 mg capsule,delayed release(DR/EC) 20 mg PO DAILY Qty: 30 0RF omeprazole 20 mg capsule,delayed release(DR/EC) 20 mg PO DAILY Qty: 20 0RF chlordiazepoxide HCl 25 mg capsule 25 mg PO Q2H PRN (Reason: alcohol withdrawal) Qty: 20 0RF Rx Instructions: Day 1: Oral: 50 mg every 6 hours. Day 2: Oral: 50 mg every 12 hours. Day 3: Oral: 50 mg every 24 hours. Day 4: Oral: 25 mg every 24 hours, then discontinue chlordiazepoxide May take 25 mg PRN q2h for breakthrough symptoms. Follow-up/Referrals: Ranjith,Clare Richard MD [Primary Care Provider] - Time of Disposition: 21:38
[2024-10-28] MEDS: chlordiazePOXIDE (*CRX) 25 MG CAPSULE 50 MG PO (21:58)
--- OUTSIDE RECORDS SUMMARY | 2024-11-04 22:13 | XMS_ITS | Encounter Summary ---
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
--- OUTSIDE RECORDS SUMMARY | 2024-11-04 22:13 | XMS_ITS | Encounter Summary ---
Author Organization [facility] Address [address] [place] [address] Care Team Providers Care Tail Ripper Name Role Phone Unavailable Primary Care Provider Unavailabl e Encounter Details Date Type Department Care Team (Late st Contact Info) Description 12/17/2020 Lab Requisition [facility] [address] [place] [id number] Beny Osborn MD [address] [place] [address] [place] [address] Social History Tobacco Use Types Packs/Day Years Used Date Smoking Tobacco: Never Assessed Sex and Gender Information Value Date Recorded Sex Assigned at Not on file Legal 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
--- OUTSIDE RECORDS SUMMARY | 2024-11-04 22:13 | XMS_ITS | Clinical Summary ---
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 Gender Identity Not on file Sexual Orientation Not on file Plan of Treatment Health Maintenance Due Date Last Done Comments Hepatitis C Virus (HCV) Screening 1970 TdaP Immunization 1970 Hepatitis B Immunization (1 of 3 - 19+ 3-dose series) 1989 Colonoscopy 2015 Colorectal Cancer Screening 2015 Cologuard 2020 Immunochemical Fecal Occult Blood 2020 Pneumococcal Immunization (50+ years) (1 of 1 - PCV) 2020 Zoster Immunization (1 of 2) 2020 Influenza Immunization (#1) 2024 SARS-COV-2 Immunization ( season) 2024 01/30/2022, 09/13/2021, 01/17/2021, Additional history exists Respiratory Syncytial Virus (RSV) Immunization (Adult) (1 - 1-dose 75+ series) 2045 Meningococcal Immunization (ACWY) Aged Out No longer eligible based on patient's age to complete this topic Rotavirus Immunization Aged Out No lo nger eligible based on patient's age to complete this topic
--- OUTSIDE RECORDS SUMMARY | 2024-11-04 22:13 | XMS_ITS | Clinical Summary ---
Author Organization [facility] Address [address] [place] [address] Care Team Providers Care In House Cra Name Role Phone Clare Kasper MD Primary Care Pro vider Allergies Active Allergy Reactions Criticality Noted Date Comments Other Other (See comments),Swelling Medium 02/04/2023 DOVE SENSITIVE SOAP-- Painful swelling DOVE SENSITIVE SOAP-- Painful swelling Medications triamcinolone (KENALOG) 0.1 % ointmentIndication s:Eczema, unspecified type Apply topically 2 (two) times a day as needed for irritation or rash Do not use daily for more than 2 weeks at a time 30 g 09/30/20 22 Active omeprazole (PriLOSEC) 20 mg capsuleIndications :Gastroesophageal reflux disease, unspecified whether esophagitis present Take 1 capsule daily for 8 weeks. Then take 1 capsule every other day for 2 weeks then stop. 63 capsule 10/25/20 23 Active buPROPion SR (WELLBUTRIN SR) 150 mg 12 hr tabletIndications: Smoking Take 1 tablet (150 mg total) by mouth 2 (two) times a day 60 tablet 2 10/25/20 23 Active pimecrolimus (ELIDEL) 1 % creamIndications:A llergic contact dermatitis due to other agents Apply topically 2 (two) times a day as needed (facial rash) 30 g 6 04/12/20 24 Active amLODIPine (NORVASC) 10 mg tabletIndications: Primary hypertension TAKE 1 TABLET(10 MG) BY MOUTH DAILY 90 tablet 1 04/24/20 24 Active rosuvastatin (CRESTOR) 5 mg tabletIndications: Hyperlipidemia, unspecified hyperlipidemia type Take 1 tablet (5 mg total) by mouth daily In addition to 10mg tablet for a total daily dose of 15mg 90 tablet 1 07/16/20 24 025 Active rosuvastatin (CRESTOR) 10 mg tabletIndications: Hyperlipidemia, unspecified hyperlipidemia type Take 1 tablet (10 mg total) by mouth daily In addition to 5mg tablet for a total daily dose of 15mg 90 tablet 1 07/16/20 24 025 Active traZODone (DESYREL) 50 mg tabletIndications: Primary insomnia Take 1 tablet (50 mg total) by mouth nightly as needed for sleep 90 tablet 1 01/25/20 23 024 Discontinu ed(Therapy completed) naltrexone (DEPADE) 50 mg tabletIndications: Alcohol abuse Take 1 tablet (50 mg total) by mouth daily 90 tablet 10/25/20 23 024 Active Problems Problem Noted Date Diagnosed Date Primary insomnia 03/25/2022 Assessment & Plan (03/27/2024 5:05 PM CDT): Trazodone as needed Assessment & Plan (10/25/2023 2:41 PM MILL ROLL REWINDER): Trazodone as needed Assessment & Plan (03/25/2022 5:14 PM CDT): Patient endorsing difficulty falling sleep. Tried melatonin without relief. Patient endorses very poor sleep hygiene with significant caffeine intake in the form of 6-7 Pepsi's a day. He will even drink Pepsi while watching TV in his bed before he attempts to fall sleep. Patient also eaten bed at the time he tries to fall asleep. Patient does not exercise before bed. Patient does not read in bed or uses phone in bed. Patient goes to bed at about the same time which is 2-3 a.m. wakes up at 8- 9am. Patient describes that once he falls asleep usually stays asleep. Advised patient to decrease his caffeine intake and not to consume any caffeinated beverages after 5:00 p.m.. Advised patient to switch to caffeine-free Pepsi if he continues to want to drink Pepsi. Educated patient on appropriate sleep hygiene which includes only using his bed for sleep, not watching TV while in bed, not eating shortly before bed, and certainly not drinking a Pepsi or any other caffeinated beverage while in bed. These conservative measures do not work will reassess insomnia consider initiating more aggressive pharmacological treatment at the time. 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 Patient not taking statin. Calculated ASCVD risk score is 4.4%. Patient no longer needs to be on statin therapy. Discussed this with the patient and he is in agreement. May benefit from occasional re-evaluation of his lipids to screen for worsening of his cholesterol levels or if he has any other risk factors that arise such as comorbidities or history of stroke or coronary artery disease. Assessment & Plan (08/19/2021 4:09 PM CDT): - Last lipid panel in 06/18/2020 w/ cholesterol 169, LDL 79 and HDL 76. Currently on rosuvastatin 20mg - continue current statin - Repeat lipid panel Tobacco use 08/19/2021 Assessment & Plan (01/24/2023 2:36 PM CDT): Encouraged cessation Assessment & Plan (07/27/2022 5:04 PM CDT): Counseled for >3 minutes on cessation Assessment & Plan (03/25/2022 5:07 PM CDT): Patient is contemplative on his willingness to quit smoking. Does not when he has patches given skin irritation. Patient interested in trying to correct, or nicotine lozenges. Currently smoking about 7 cigarettes a day down from 10 cigarettes a day. Patient denies any chest pain shortness a brown difficulty ambulating. Provided him literature on ago quit smoking and encouraged him to quit smoking. Assessment & Plan (08/19/2021 4:16 PM CDT): - Currently smoking 5-7 cigarettes per day - Discussed willingness to quit and discussed options including medicines and nicotine replacement - Pt declined conversation w/ pharmacist for smoking cessation - Contemplative but not interested; states he may try NRT w/ the gum, but declines patches 2/2 prior allergic reaction to the adhesive Allergic rhinitis 07/06/2019 Assessment & Plan (07/06/2019 2:52 PM CDT): Having seasonal allergy symptoms, worse in the fall. Likely allergic to mold/ragweed. -Start zyrtec -Continue flonase -Discussed nasal rinsing, would like to defer at this time -Discussed environmental control throughout his home Annual physical exam 06/13/2018 Overview (06/18/2020): General - A1c (for pts c BP >135/80): 4.9% (05/2018), re-check today - Lipids (men >35): 204/115/69/101 (07/2019), re-check today Cancer - Colonoscopy (age 45-75): tubular adenomatous polyps x2 (04/2020); GI recommended repeat in 1-year due to somewhat poor prep - Lung (55-80 c >30 pk-yr hx, and smoking in past 15yrs): NA Infectious Disease - HIV (age 15-65): non-reactive 05/2018 and 07/2019; patient requests yearly checks (although low risk) - Gonorrhea/Chlamydia (<24 or increased risk): neg 05/2018 and 07/2019 - Syphilis (if increased risk): non-reactive 05/2018 and 07/2019 Immunizations - Influenza (annually): 09/29/2018 - Td/Tdap (q10 years): 2013 - PPSV23 (age >65, immunocomp, DM, CKD, heart dz, lung dz, liver dz, EtOH, asplenia): x2 in 2012 - PCV13 (age >65, immunocomp, CKD, asplenia): give today (06/18/20) Assessment & Plan (10/25/2023 2:15 PM MILL ROLL REWINDER): Reviewed PMH & FH Phq reviewed Reviewed medications and supplements HCM: orders placed as needed Assessment & Plan (03/25/2022 5:08 PM CDT): Patient had colonoscopy in May 2021 which was completely normal but the before that there were 2 tubular adenomas found. Patient should get another colonoscopy 7 years from May 2021. Patient inquired about screening for prostate cancer. I counseled patient on the risks and benefits of this and that at this time without any symptoms is unlikely to benefit from screening with PSA levels or digital rectal exam. Patient agreed expressed understanding. Patient up-to-date on COVID vaccines as well as Pneumovax vaccine. Assessment & Plan (07/06/2019 2:57 PM CDT): Requesting STI testing today (HIV, RPR, GC/CT) Is working on scheduling colonoscopy Lipid panel Recommend flu shot in July Assessment & Plan (09/29/2018 5:39 PM MILL ROLL REWINDER): Flu shot and referral for colonoscopy today Anemia 06/13/2018 Assessment & Plan (09/29/2018 5:27 PM MILL ROLL REWINDER): Mild anemia with last Hb 12.9 (from 12/2016). Folate, B12, Iron panel normal. -CBC today GERD (gastroesophageal reflux disease) 5 Assessment & Plan (03/27/2024 5:05 PM CDT): Stable off medications Assessment & Plan (10/25/2023 2:36 PM MILL ROLL REWINDER): Uncontrolled Restart omeprazole Assessment & Plan (01/24/2023 2:39 PM CDT): Stable off medications Assessment & Plan (07/27/2022 5:08 PM CDT): Continue protonix as needed Onychomycosis 06/26/2014 Assessment & Plan (08/19/2021 4:13 PM CDT): - Recently completed 3mo course of terbinafine with minimal improvement. - Will order hepatic function panel due to concern for terbinafine use with alcohol - Prescribed urea 40% BID for 14 days to affected toes. Hypertension 06/26/2014 Assessment & Plan (03/27/2024 5:04 PM CDT): Blood pressure controlled continue 10mg amlodipine Assessment & Plan (10/25/2023 2:15 PM MILL ROLL REWINDER): Blood pressure controlled continue 10mg amlodipine Assessment & Plan (01/24/2023 2:29 PM CDT): Blood pressure at goal, continue 10mg amlodipine Assessment & Plan (07/27/2022 5:03 PM CDT): Blood pressure at goal, continue 10mg amlodipine Assessment & Plan (03/25/2022 5:01 PM CDT): Compliant with amlodipine 10. Taking at home appears adequate and is adequate in the office today. -continue amlodipine 10. Assessment & Plan (08/19/2021 4:06 PM CDT): -Normotensive in clinic today -Home regimen: Amlodipine 10mg -Cont home regimen -Repeat BMP given prior hyperkalemia Assessment & Plan (12/08/2020 12:32 PM MILL ROLL REWINDER): Blood pressure very well-controlled with amlodipine. No symptoms of hypotension, no adverse reactions. No signs/symptoms suggestive of ACS/CAD, CHF, CVA - continue amlodipine 10mg daily - reviewed low sodium diet Assessment & Plan (06/18/2020 4:19 PM CDT): Blood pressure initially elevated above goal but improved closer to goal on manual recheck. Home readings indicated good control. No signs/symptoms concerning for ACS, CHF, CVA, PVD. - continue amlodipine 5mg daily - patient will bring log to next appointment Assessment & Plan (07/06/2019 2:50 PM CDT): Well controlled on amlodipine 5mg daily Assessment & Plan (09/29/2018 5:25 PM MILL ROLL REWINDER): Poorly controlled hypertension 157/81 in clinic today. He is not adherent to his amlodipine but recently started taking it again a few days ago. He is not experiencing side effects, he has been drinking heavily and forgets. -We discussed that hypertension does not have any signs and by the time you have any, it's very late. We talked about heart failure and renal failure and how they can be prevented by adherence to his regimen. -Will continue amlodipine 5mg daily for now and increase as needed at his next visit. Assessment & Plan (04/13/2018 4:51 PM CDT): Hypertension is improving with treatment. Continue current treatment regimen. Blood pressure will be reassessed in 3 months. He will leave the patient off lisinopril because his blood pressure seems to be doing well off of it. Smoking 09/18/2013 Assessment & Plan (03/27/2024 5:04 PM CDT): Encourage cessation Assessment & Plan (10/25/2023 2:42 PM MILL ROLL REWINDER): Encourage cessation, he is interested in starting wellbutrin Assessment & Plan (09/29/2018 5:29 PM MILL ROLL REWINDER): Was given patches at our last visit however he feels like they make him itch. He continues to smoke 1/2PPD. -As he has other active issues going on today, namely ETOH cessation, we will defer further discussion to our next visit. Would consider pharmacologic therapy for him, chantix vs wellbutrin. Alcohol use disorder 11/13/2012 Assessment & Plan (10/12/2024 2:18 PM MILL ROLL REWINDER): Recent relapse No evidence of withdrawal today Recommend cessation Assessment & Plan (03/27/2024 5:04 PM CDT): continue cessation Assessment & Plan (10/25/2023 2:42 PM MILL ROLL REWINDER): Encourage cessation, he is interested in trying naltrexone Assessment & Plan (01/24/2023 2:40 PM CDT): Declines medications to first helper in avoiding alcohol (naltrexone, antabuse, etc) currently Assessment & Plan (09/30/2022 9:03 AM MILL ROLL REWINDER): No withdrawal symptoms currently Discussed I don't feel comfortable prescribing librium in outpatient setting given history of seizure withdrawal Strict return/ED precautions discussed Assessment & Plan (07/27/2022 5:04 PM CDT): Currently sober Encouraged to continue complete cessation Assessment & Plan (03/25/2022 5:05 PM CDT): Patient endorses drinking 6-7 beers a day for about a week at a time but will months without drinking at all. Patient feels he is in control of his thinking and does have multi for social reasons. He describes it as a ? vacation? that he takes from time to time. Patient does not feel any urge to drink. He has not used any resurgence such as AA and help him set drinking. Overall he feels that he has good control of his habit. I advised him to moderate or completely quit drinking given his heavy use in the past. Provided him literature on alcohol use disorder which has methods and to help him quit. Offered naltrexone patient denied. Assessment & Plan (06/18/2020 4:24 PM CDT): Does not use EtOH consistently, previously more with binge episodes. However has cut down overall recently due to concerns of COVID. No signs/symptoms concerning for pancreatitis, cardiomyopathy, depression, esophagitis/gastritis, malignancy - congratulated on reduced EtOH use - provided additional counseling on reducing binge episodes - provided information regarding alcoholics anonymous online meetings - discussed anxiety/fears surrounding coronavirus and encouraged resuming normal diet Assessment & Plan (09/29/2018 5:36 PM MILL ROLL REWINDER): He typically drinks twice a year for about a week at a time 6-7 beers/day- this was an effort to cut back for him. His last episode was early April. He has never had DTs or seizures though he's had acute pancreatitis. He has been drinking now since and is interested in getting off again. He is not actively withdrawing in clinic and his last drink was this morning. Not able to provide librium, we recommended a controlled taper and gave precautions that should he have severe symptoms of withdrawal or a seizure, he ought to present to the ED. Resolved Problems Problem Noted Date Diagnosed Date Resolved Date Sinus congestion 09/29/2018 07/06/2019 Assessment & Plan (09/29/2018 5:30 PM MILL ROLL REWINDER): Mild sinus congestion today. No indication for further workup or antibiotics. -Fluticasone nasal spray for 2 weeks to a month H/O ETOH abuse 06/13/2018 09/29/2018 Overview (09/29/2018): Left hand pain 06/17/2017 06/13/2018 Assessment & Plan (06/17/2017 6:05 PM CDT): The patient has swelling on the dorsal aspect of his left hand. We will check x- ray. I do not see any evidence of an insect bite and does not look like any insect bite I have seen before. On it seems to be more of a swollen hand. As stated will check an x-ray and decide what to do when the x-rays available. 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 Sore throat 09/18/2014 06/13/2018 Overview (02/10/2018): Impression: I think this sore throat is due to reflux. Cervicalgia 10/10/2013 06/13/2018 Cyst of pancreas 06/12/2013 06/13/2018 Indigestion 12/08/2012 06/13/2018 Vitamin D deficiency 11/28/2012 021 Assessment & Plan (06/18/2020 4:28 PM CDT): - re-ordered vitamin D 50K units q-weekly x8-weeks to preferred pharmacy - re-ordered vitamin D3 2000 units weekly to preferred pharmacy (after completing 50K units) - re-check vitamind D at next appointment Assessment & Plan (07/06/2019 2:54 PM CDT): Has been low in the past, however he has been supplementing. -Recheck today (per patient request) Assessment & Plan (09/29/2018 5:26 PM MILL ROLL REWINDER): Vitamin D 18 on 05/2018 labs, will start 50,000 units vit D weekly today. Arthralgia of shoulder 11/13/201206/13 Encounters Date Type Department Care Team Description 10/31/2024 Nurse Triage [facility] [address] [phone] Clare Kasper MD 10/12/2024 1:45 PM MILL ROLL REWINDER Office Visit [facility] [address] [phone] Clare Kasper MD Alcohol use disorder (Primary Dx); Acute non-recurrent maxillary sinusitis 10/11/2024 Telephone [facility] [address] [phone] Clare Kasper MD Medical Question/Miscellaneou s from Last 3 Months Immunizations Name Administration Dates Next Due DTaP 04/05/2013 Hep A / Hep B 11/20/2012 Hep A, Adult 11/13/2002 Influenza, Quadrivalent, Stefany l Culture-based MDCK, Preservative Free, Antibiotic Free, Intramuscular 08/07/2022 Influenza, Quadrivalent, Spl it, Preservative Free, Intradermal 09/30/2016 Influenza, Quadrivalent, Spl it, Preservative Free, Intramuscular 07/18/2023,11/07/2020,09/29/2018,08/25,12/07/2013,11/20/2012,11/13/2012 Influenza, Trivalent, Cell Culture-based MDCK, Preservative Free, Antibiotic Free, Intramuscular 08/07/2022 Influenza, Trivalent, IM (MDV) 08/13/2014 Influenza, Trivalent, Preser vative Free, Intramuscular 07/27/2024,08/25/2015,12/07/2013,11/20,11/13/2012 Influenza, Unspecified 09/30/2016 Moderna SARS-CoV-2 Monovalen t Vaccination (12+ YRS) 01/17/2021,12/17/2020 Moderna Sars-cov-2 Monovalen t Booster Vaccination (12+ YRS) 08/07/2022 Pneumococcal Conjugate PCV 13 06/18/2020 Pneumococcal Polysaccharide PPV23 11/20/2012, TD Preservative Free 08/31/2013 Tdap 01/06/2024,11/20/2012 ZOSTER Recombinant 06/10/2023,04/04/2023 Surgical History Surgery Date Site/Laterality Comments CARPAL TUNNEL RELEASE 10/31/2007 - 10/30/2008 Left COLONOSCOPY UPPER GASTROINTESTINAL ENDOSCOPY Medical History Medical History Date Comments Pancreatitis Hypertension Anemia Anxiety Vitamin D deficiency 11/28/2012 GERD (gastroesophageal reflux disease) Alcohol abuse Family History Medical History Relation Name Comments Alcohol abuse Brother Tomas Kidney cancer Father Cancer, kidney ; renal cancer Father Hypertension Mother Nicolle Hypertension; Relation Name Status Comments Brother Tomas Father Mother Nicolle Social History Tobacco Use Types Packs/Day Years Used Date Smoking Tobacco: Every Day Cigarettes 0.5 22.2 Started: 05/11/2000; Last attempted to quit: 07/26/2022 Passive Smoke Exposure: Yes Smokeless Tobacco: Never Tobacco Cessation:Ready to Q uit: Not Asked; Counseling Given: Not Answered Comments:8 cigs a day Alcohol Use Standard Drinks/Week Comments Yes 0 (1 standard drink = 0.6 oz pur e alcohol) occasionally AUDIT-C Answer Date Recorded Q1: How often do you have a drink containing alc ohol? 2-3 times a week 10/25/2023 Average Number of Drinks Not on file 023 Frequency of Binge Drinking Not on file 10/01 PHQ-2 Answer Date Recorded PHQ-2 Total Score (If total score is 3 or more points, staff should administer the PHQ-9) 0 10/12/2024 Personal Safety Answer Date Recorded Have you ever been in or are you currently in a harmful physical or emotional relationship or is someone making you feel afraid or unsafe? Denies 04/20/2023 Sex and Gender Information Value Date Recorded Sex Assigned at Not on file Legal Sex Male 2:37 PM MILL ROLL REWINDER Gender Identity Not on file Sexual Orientation Not on file Obstetrics History Last Filed Vital Signs Vital Sign Reading Time Taken Comments Blood Pressure 137/88 10/12/2024 1:47 PM MILL ROLL REWINDER Pulse 100 10/12/2024 1:47 PM MILL ROLL REWINDER Temperature 36.8 ??C (98.2 ??F) 10/12/2024 1:47 PM CS T Respiratory Rate 18 10/12/2024 1:47 PM MILL ROLL REWINDER Oxygen Saturation 99% 10/12/2024 1:47 PM MILL ROLL REWINDER Inhaled Oxygen Concentration - - Weight 49.8 kg (109 lb 11.2 oz) 10/12/2024 1:47 PM MILL ROLL REWINDER Height 170.2 cm (5' 7 ) 10/12/2024 1:47 PM MILL ROLL REWINDER Body Mass Index 17.18 10/12/2024 1:47 PM MILL ROLL REWINDER Plan of Treatment Health Maintenance Due Date Last Done Comments Prostate Cancer Screening-PSA 07/27/2024 07/27/2022 Regular Well Visit/Exam 18-64 10/25/2024 10/25/2023 Depression Screening 10/12/2025 10/12/2024, 10/25/2023, 10/25/2023, Additional history exists Colon Cancer Screening-Colonoscopy 06/24/2031 06/24/2021, 05/14/2020 DTaP/Tdap/Td Vaccine (5 - Td or Tdap) 01/05/2034 01/06/2024, 08/31/2013, 04/05/2013, Additional history exists Pneumococcal vaccine <65 (3 of 3 - PPSV23 or PCV20) 2035 06/18/2020, 11/20/2012, 11/13/2012 Colon Cancer Screening-CT Colonography Discontinued 06/24/2021, 05/14/2020 Colon Cancer Screening-DNA Stool Discontinued 06/24/20, 05/14/2020 Colon Cancer Screening-FIT Discontinued 06/24/2021, Colon Cancer Screening-Sigmoidoscopy Discontinued 06/24/2021, 05/14/2020 Zoster Vaccine Completed 06/10/2023, 04/04/2023 Hepatitis C Screening Completed 03/27/2024 , 10/25/2023, 07/27/2022, Additional history exists Covid-19 Vaccine Completed 07/27/2024, , 08/07/2022, Additional history exists Influenza Vaccine Completed 07/27/2024, , 08/07/2022, Additional history exists Goals Goal Patient Goal Type Associated Problems Recent Progress Patient-Stated? Author FIORELLA General Goal - Patient schedules and keeps appointments with all recommended providers ACO Care Management Sherrie Martin, RN Note: Problem: Potential for medical complications and readmission if follow-up appointments are not scheduled Interventions: - Ensure all follow-up appointments are scheduled, all prescribed medications have been received. - Address any barriers for keeping scheduled appointment. - Coordinate with patient/caregiver(s) to ensure patient is able to keep scheduled appointment. - Emphasize importance of keeping scheduled appointments. - Identify and discuss questions for next provider visit. - Follow up with patient after scheduled appointment(s) to review any new orders or changes made to medication regimen. Med Mgmt Goal - Patient will understand importance of following medication regimen and will take appropriate steps to maintain regimen ACO Care Management Laura Avery Note: Problem: Medication management Interventions: - Assess barriers to medication adherence: Provide coordination of care, education and resources to address these barriers. Include SW in patient's plan of care for resources if needed. - Instruct patient to: Take each medication each day at the times indicated by using a system (list, pill box, etc.). Do not allow prescriptions to or bottles to become empty before requesting refills. Bring all medications to each office visit. Contact physician or CM if they feel they are having side effects from medications (rather than stopping them without telling anyone). Procedures Procedure Name Priority Date/Time Associated Diagnosis Comments HEPATITIS PANEL, ACUTE Routine 03/27/2024 5:41 PM CDT Routine screening for STI (sexually transmitted infection) PSA SCREEN Routine 07/27/2022 5:14 PM CDT Annual physical exam COLONOSCOPY 06/24/2021 9:15 AM CDT from Last 3 Months or Most Recently Relevant to Health Maintenance Results * Hepatitis panel, acute Blood (03/27/2024 5:41 PM CDT) Hep A IgM Nonreactive Nonreactive Comment: Interpretive Data: If Hep A IgM Ab is reported as Equivocal, a new sample should be drawn in two weeks for testing. Current interpretive data was last revised on 20. Hep B core IgM Nonreactive Nonreactive [facility] Comment: Interpretive Data If HepB Core IgM Ab is reported as Equivocal, a new sample should be drawn in two weeks for testing. Current interpretive data was last revised on 20. Hep C Ab Nonreactive Nonreactive [facility] Comment: Antibodies to HCV not detected. Does NOT exclude the possibility of recent exposure to HCV. Current interpretive data was last revised on 22 Interpretive Data Nonreactive: Antibodies to HCV not detected. Does NOT exclude the possibility of recent exposure to HCV. Equivocal: Equivocal for HCV antibodies. Supplemental molecular testing will be automatically performed to determine infection status in accordance with current CDC screening recommendations. ?? Reactive: Positive for HCV antibodies. ??This may represent current or past HCV infection. Supplemental molecular testing will be automatically performed to determine ??current infection status in accordance with current CDC screening recommendations. Interpretive data was last revised on 2020. HepBsAg Nonreactive Nonreactive [facility] Blood 03/27/2024 5:41 PM CDT 03/27/2024 8:25 PM CDT Clare Kasper MD LAB MICROBIOLOGY - GENERAL ORDERABLES Final Result Performing Organization Address [facility] de Phone Number [facility] [address] [facility] [place] [address] * PSA screen (07/27/2022 5:14 PM CDT) PSA-Total 0.37 <=3.90 ng/mL [facility] Comment: Interpretive Data ?AGE ? SEX ?REFERENCE INTERVAL 0 minutes-150 years ?Female ?None 0 minutes-49 years ? Male ?None ? 50-59 years ? Male ?0-3.90 ? 60-69 years ? Male ?0-5.40 ? 70-79 years ? Male ?0-6.20 ? 80-150 years ?Male ?0-6.20 The Domingo PSA Total assay procedure was used. Results from different manufacturers or methods may not be comparable. Serial testing should be performed using the same method. Current interpretive data last revised 22. Testing performed by: [facility], [address] [place] [address]., [id number] Blood 07/27/2022 5:14 PM CDT 07/27/2022 5:18 PM CDT Clare Kasper MD LAB BLOOD ORDERAB LES Final Result Performing Organization Address [facility] de Phone Number CRISTY [address] [facility] [address] [place], [place] [id number] * COLONOSCOPY (06/24/2021 9:15 AM CDT) Anatomical Region Laterality Modality Other Narrative Procedure Note Noemi Mccoy MD - 06/24/2021 9:15 AM CDT [facility] ENDOSCOPY [facility] Patient Name: Yariel Hill Procedure Date: 06/24/2021 9:15 AM Date of : 1970 Admit Type: Outpatient Age: 51 Gender: Male Attending MD: Noemi Mccoy M.D. Room: [facility] ENDOSCOPY ROOM 8 Note Status: Finalized Procedure: Colonoscopy Indications: High risk colon cancer surveillance: Personalhistory of colonic polyps, Last colonoscopy: April 2020, returns due to inadequate prep rule out smallpolyps Referring MD: David Feliz M.D. Providers: Noemi Mccoy M.D. Medicines: Monitored Anesthesia Care Complications: No immediate complications. Estimated Blood Loss: Estimated blood loss: none. Procedure: Pre-Anesthesia Assessment: - Prior to the procedure, a History and Physicalwas performed, and patient medications and allergieswere reviewed. The risks and benefits of the procedureand the sedation options and risks were discussed withthe patient. All questions were answered and informed consent was obtained. Patient identification and proposed procedure were verified by the physician,the nurse, the cattle feeder and the facilities maintenance technician in the procedure room. Respiratory Examination: clear to auscultation. CV Examination: normal. Prophylactic Antibiotics: The patient does not requireprophylactic antibiotics. Prior Anticoagulants: The patient has taken no previous anticoagulant or antiplatelet agents. After reviewing the risks and benefits, the patient was deemed in satisfactory condition to undergo the procedure. The anesthesia plan was touse monitored anesthesia care (MAC). Immediately priorto administration of medications, the patient was re-assessed for adequacy to receive sedatives. The heart rate, respiratory rate, oxygen saturations, blood pressure, adequacy of pulmonary ventilation,and response to care were monitored throughout the procedure. The physical status of the patient was re-assessed after the procedure. - The risks and benefits of the procedure and the sedation options and risks were discussed with the patient. All questions were answered and informed consent was obtained. - Patient identification and proposed procedurewere verified prior to the procedure. The procedure was verified in the procedure room. - Prior to the procedure, a History and Physicalwas performed, and patient medications, allergies and sensitivities were reviewed. The patient'stolerance of previous anesthesia was reviewed. - Immediately prior to administration ofmedications, the patient was re-assessed for adequacy to receive sedatives. - . - The heart rate, respiratory rate, oxygen saturations, blood pressure, adequacy of pulmonary ventilation, and response to care were monitored throughout the procedure. The benefits, risks and alternatives of theprocedure and sedation were discussed and informed consentwas obtained. All questions were answered. Please referto the signed informed consent document in the medical record. The scope was passed under direct vision.The Endoscope was introduced through the anus andadvanced to the cecum, identified by appendiceal orifice and ileocecal valve. The colonoscopy was performedwithout difficulty. The patient tolerated the procedurewell. The quality of the bowel preparation was excellent. The quality of the bowel preparation was evaluated using the BBPS (Reading Bowel Preparation Scale)with scores of: Right Colon = 3, Transverse Colon = 3and Left Colon = 3 (entire mucosa seen well with no residual staining, small fragments of stool oropaque liquid). The total BBPS score equals 9. The bowel preparation used was GoLYTELY via split dose instruction. Bowel prep was administered using asplit dose. Findings: The colon (entire examined portion) appeared normal. Internal hemorrhoids were found during retroflexion. The hemorrhoids were mild. Impression: - The entire examined colon is normal. - Internal hemorrhoids. - No specimens collected. Recommendation: - Repeat colonoscopy in 7 years for surveillancesince patient had two tubular adenomas removed in April2020. - Return to primary care physician as previously scheduled. Electronically signed by Noemi Mccoy MD Noemi Mccoy M.D. 06/24/2021 11:10:48 AM . Number of Addenda: 0 Note Initiated On: 06/24/2021 9:15 AM Recognized by the [employer] for promoting quality in endoscopy Noemi Mccoy MD ENDOSCOPY PROCEDURES Final R esult from Last 3 Months or Most Recently Relevant to Health Maintenance Insurance [facility] Advance Directives For more information, please contact: [phone] * Full Code (Latest Code Status on File) Date Activated Date Inactivated Comments 06/24/2021 8:04 AM 06/24/2021 2:35 PM * Full Code Date Activated Date Inactivated Comments 05/14/2020 9:51 AM 05/14/2020 5:15 PM Care Teams In House Cra Relationship Specialty Start Date End Date Clare Kasper MD PCP - General Family Medicine 07/27/22
--- OUTSIDE RECORDS SUMMARY | 2024-11-04 22:13 | XMS_ITS | Encounter Summary ---
Author Organization [facility] Address [address] [place] [address] Care Team Providers Care Environmental Officer Name Role Phone Unavailable Primary Care Provider Unavailabl e Encounter Details Date Type Department Care Team (Late st Contact Info) Description 01/12/2022 Lab Requisition [facility] Community Testing [facility] [address] [place] [address] Beny Osborn MD [address] [place] [address] [place] [address] Social History Tobacco Use Types Packs/Day Years Used Date Smoking Tobacco: Never Assessed Sex and Gender Information Value Date Recorded Sex Assigned at Not on file Legal Sex Male 12:51 PM MANAGER LATIN Gender Identity Not on file Sexual Orientation Not on file documented as of this encounter Plan of Treatment Not on file documented as of this encounter Procedures Procedure Name Priority Date/Time Associated Diagnosis Comments SARS-COV-2 PCR [facility] ONLY Routine 01/12/2022 10:59 AM CDT documented in this encounter Visit Diagnoses Not on filedocumented in this encounter
--- OUTSIDE RECORDS SUMMARY | 2024-11-04 22:13 | XMS_ITS | Encounter Summary ---
Author Organization [facility] Address [address] [place] [id number] Care Team Providers Care Lining Vamper Name Role Phone Unavailable Primary Care Provider Unavailabl e Encounter Details Date Type Department Care Team (Late st Contact Info) Description 12/17/2020 1:00 PM INTERNAL MEDICINE NURSE PRACTITIONER Rapid Evaluation [place] [facility] Mobile Testing [facility] [address] [place] [address] Social History Tobacco Use Types Packs/Day Years Used Date Smoking Tobacco: Never Assessed Sex and Gender Information Value Date Recorded Sex Assigned at Not on file Legal Sex Male 12:51 PM INTERNAL MEDICINE NURSE PRACTITIONER Gender Identity Not on file Sexual Orientation Not on file documented as of this encounter Plan of Treatment Not on file documented as of this encounter Visit Diagnoses Not on filedocumented in this encounter
--- OUTSIDE RECORDS SUMMARY | 2024-11-04 22:14 | XMS_ITS | Encounter Summary ---
Author Organization [facility] Healthcare Address [address] [place] [address] Care Team Providers Care Plumbing Warehouse Helper Name Role Phone Clare Kasper MD Primary Care Pro vider Reason for Referral * Procedure (Routine) - Pending Review Specialty Diagnoses / Procedures Referred By Litzy mccracken Referred To Contact Diagnoses Abscess of face Procedures Incision and Drainage Lauren Xiong NP Phone: tel: fax: [facility] Medical Group Referral ID Status Reason Start Date Expiration Date V isits Requested Visits Authorized [id number] Pending Review 12/08/2023 01/06/2025 1 1 ERS AND ACQUISITIONS MANAGER Reason for Visit * Reason Comments Stye Pt states he has a s suze or abscess on right side of face near right eye. Pt states may be a reaction to different soap. Pt states area near eye is painful. Ongoing x1week Encounter Details Date Type Department Care Team (Late st Contact Info) Description 12/08/2023 6:00 PM MERGERS AND ACQUISITIONS MANAGER Office Visit [facility] Medical Group [facility]ient Care at [address] [phone] Lauren Xiong, MICHELLE [address] [place] [address] Abscess of face (Primary Dx) Social History Tobacco Use Types Packs/Day Years Used Date Smoking Tobacco: Every Day Cigarettes 0.5 22.2 Started: 05/11/2000; Last attempted to quit: 07/26/2022 Passive Smoke Exposure: Yes Smokeless Tobacco: Never Comments:8 cigs a day Alcohol Use Standard [...] points, staff should administer the PHQ-9) 0 10/25/2023 Personal Safety Answer Date Recorded Have you ever been in or are you currently in a harmful physical or emotional relationship or is someone making you feel afraid or unsafe? Denies 04/20/2023 Sex and Gender Information Value Date Recorded Sex Assigned at Not on file Legal Sex Male 2:37 PM MERGERS AND ACQUISITIONS MANAGER Gender Identity Not on file Sexual Orientation Not on file documented as of this encounter Last Filed Vital Signs Vital Sign Reading Time Taken Comments Blood Pressure 130/68 12/08/2023 6:09 PM MERGERS AND ACQUISITIONS MANAGER Pulse 79 12/08/2023 6:09 PM MERGERS AND ACQUISITIONS MANAGER Temperature 37.1 ??C (98.8 ??F) 12/08/2023 6:09 PM CS T Respiratory Rate 18 12/08/2023 6:09 PM MERGERS AND ACQUISITIONS MANAGER Oxygen Saturation 99% 12/08/2023 6:09 PM MERGERS AND ACQUISITIONS MANAGER Inhaled Oxygen Concentration - - Weight 53.5 kg (118 lb) 12/08/2023 6:09 PM MERGERS AND ACQUISITIONS MANAGER Height 170.2 cm (5' 7 ) 12/08/2023 6:09 PM MERGERS AND ACQUISITIONS MANAGER Body Mass Index 18.48 12/08/2023 6:09 PM MERGERS AND ACQUISITIONS MANAGER documented in this encounter Ordered Prescriptions Prescription Sig Dispense Quantity Refills Last Filled Start Date End Date doxycycline 100 mg capsuleIndications: Skin/Soft Tissue Infection Take 1 tablet/caps ule (100 mg total) by mouth every 12 (twelve) hours for 10 days 20 tablet/capsule 12/08/2023 12/18/2023 documented in this encounter Progress Notes * Lauren Xiong NP - 12/08/2023 6:00 PM CSTAssociated Order(s): Incision and Drainage Post-Procedure Diagnose(s): Abscess of face Images from the original note were not included. CC: Chief Complaint Patient presents with Stye Pt states he has a stye or abscess on right side of face near right eye. Pt states may be a reaction to different soap. Pt states area near eye is painful. Ongoing x1week HPI: Yariel Hill is a 53 y.o. year old male with a 1 week history of boil to the right side of face on the restorationism area next to the eye. Patient has a history or boils to the face. HPI ALLERGIES: Allergies Allergen Reactions Other Other (See comments) and Swelling DOVE SENSITIVE SOAP-- Painful swelling DOVE SENSITIVE SOAP-- Painful swelling MEDICATIONS: Current Outpatient Medications Medication chlordiazePOXIDE (LIBRIUM) 25 mg capsule amLODIPine (NORVASC) 10 mg tablet buPROPion SR (WELLBUTRIN SR) 150 mg 12 hr tablet doxycycline 100 mg capsule naltrexone (DEPADE) 50 mg tablet omeprazole (PriLOSEC) 20 mg capsule rosuvastatin (CRESTOR) 5 mg tablet traZODone (DESYREL) 50 mg tablet triamcinolone (KENALOG) 0.1 % ointment No current facility-administered medications for this visit. PAST MEDICAL HISTORY: Patient Active Problem List Diagnosis Smoking Onychomycosis GERD (gastroesophageal reflux disease) Alcohol abuse Hypertension Annual physical exam Anemia Allergic rhinitis Alcohol-induced insomnia (CMS/HCC) ([facility]) Hyperlipidemia Tobacco use Primary insomnia Past Medical History: Diagnosis Date Alcohol abuse Anemia Anxiety GERD (gastroesophageal reflux disease) Hypertension Pancreatitis Vitamin D deficiency 11/28/2012 ROS: Review of Systems Constitutional: Negative for activity change, appetite change and fever. HENT: Negative for congestion, ear pain, rhinorrhea and sore throat. Respiratory: Negative for cough and shortness of breath. Cardiovascular: Negative for chest pain and palpitations. Gastrointestinal: Negative for constipation, diarrhea, nausea and vomiting. Musculoskeletal: Negative for arthralgias. Skin: Negative for rash and wound. Abscess to face right side Neurological: Negative for headaches. Psychiatric/Behavioral: Negative for confusion. PHYSICAL EXAM: Vitals BP 130/68 (BP Location: Right arm, Patient Position: Sitting) Pulse 79 Temp 37.1 ??C (98.8 ??F) (Temporal) Resp 18 Ht 170.2 cm (5' 7 ) Wt 53.5 kg (118 lb) SpO2 99% BMI 18.48 kg/m?? Physical Exam Vitals reviewed. Constitutional: General: He is not in acute distress. Appearance: Normal appearance. He is not ill-appearing, toxic-appearing or diaphoretic. HENT: Head: Normocephalic and atraumatic. Right Ear: Tympanic membrane, ear canal and external ear normal. Left Ear: Tympanic membrane, ear canal and external ear normal. Nose: Nose normal. No congestion or rhinorrhea. Mouth/Throat: Mouth: Mucous membranes are moist. Pharynx: No oropharyngeal exudate or posterior oropharyngeal erythema. Eyes: Conjunctiva/sclera: Conjunctivae normal. Cardiovascular: Rate and Rhythm: Normal rate and regular rhythm. Heart sounds: Normal heart sounds. Pulmonary: Effort: Pulmonary effort is normal. No respiratory distress. Breath sounds: Normal breath sounds. No stridor. No wheezing, rhonchi or rales. Chest: Chest wall: No tenderness. Abdominal: General: Bowel sounds are normal. Musculoskeletal: Cervical back: Neck supple. Skin: General: Skin is warm. Capillary Refill: Capillary refill takes less than 2 seconds. Coloration: Skin is not pale. Findings: Erythema present. No rash. Comments: Abscess to right side of face at restorationism/eye Neurological: Mental Status: He is alert and oriented to person, place, and time. Psychiatric: Behavior: Behavior normal. DIAGNOSTIC STUDIES: No results found for this or any previous visit (from the past 4 hour(s)). ASSESSMENT/PLAN: Diagnoses and all orders for this visit: Abscess of face (Primary) - doxycycline 100 mg capsule; Take 1 tablet/capsule (100 mg total) by mouth every 12 (twelve) hoursfor 10 days - Aerobic culture and gram stain Abscess Face; Future Other orders - Incision and Drainage Incision and Drainage Performed by: Lauren Xiong NP Authorized by: Lauren Xiong NP Consent Given by: Patient Site marked: the procedure site was marked Timeout: prior to procedure the correct patient, procedure, and site was verified Verbal consent obtained: Yes Risks, alternatives, and patient questions discussed: Yes Type: Abscess Body area: Head Location details: Face Incision type: Single straight Incision depth: Subcutaneous Complexity: Simple Drainage: Purulent Drainage amount: Moderate Drainage amount (ml): 3 Wound treatment: Wound left open Patient tolerance: Patient tolerated the procedure well with no immediate complications Prescribed oral antibiotics. Recommended patient cleanse wound with soap and water 3 times daily and apply Bactroban ointment, may cover with dry dressing if draining. May use Epson salt soaks twice daily. May use Tylenol/ibuprofen for discomfort. May apply warm compresses as needed. Educated on signs and symptoms of exacerbation recommended patient follow-up if symptoms persist or worsen. The patient is aware that if his current symptoms worsen or persist, he is to follow up [facility], making an appointment with his primary care provider, orpresenting to the emergency department for further evaluation. The patient's questions were answered and he agrees to the discussed treatment and plan. Lauren Xiong NP ERS AND ACQUISITIONS MANAGER documented in this encounter Plan of Treatment Not on file documented as of this encounter Goals Goal Patient Goal Type Associated Problems Recent Progress Patient-Stated? Author FIORELLA General Goal - Patient schedules and keeps appointments with all recommended providers [facility] Care Management Sherrie Martin, JAHAIRA Note: Problem: Potential for medical complications and [...] (rather than stopping them without telling anyone). documented as of this encounter Procedures Procedure Name Priority Date/Time Associated Diagnosis Comments LA INCISION & DRAINAGE ABSCESS SIMPLE/SINGLE Routine 12/08/2023 6:00 PM MERGERS AND ACQUISITIONS MANAGER Abscess of face documented in this encounter Results * (ABNORMAL) Aerobic culture and gram stain Abscess Face (12/08/2023 6:30 PM MERGERS AND ACQUISITIONS MANAGER) Direct Specimen Exam Stain: Few polymorphonuclear leukocytes seen. No organisms seen. [facility] Report Final Report: Few Staphylococcus lugdunensis Rare Mixed microorganisms. (.) [facility] Organism STAPHYLOCOCCUS LUGDUNENSIS [facility] Organism MIXED MICROORGANISMS. [facility] Abscess (Face) 12/08/2023 6: 30 PM MERGERS AND ACQUISITIONS MANAGER 12/08/2023 9:20 PM MERGERS AND ACQUISITIONS MANAGER [facility] - 12/14/2023 2:30 PM MERGERS AND ACQUISITIONS MANAGER Specimen received on an ESwab. Testing performed by [facility] ([phone]) Specimens submitted from normally sterile body sites will have all bacterial morphotypes identified. ??Specimens that contain grossly mixed cristina and/or are from body sites that are not normally sterile will be examined for Staphylococcus aureus, Pseudomonas aeruginosa, beta-hemolytic strep, vancomycin-resistant Enterococcus and fungus. ??If any of these are isolated, the organism will be reported. Current interpretive data was last revised on 2017. Organism Antibiotic Method Susceptibility Staphylococcus lugdunensis Vancomycin INTERPRETATION Susceptible Staphylococcus lugdunensis Trimethoprim with Sulfamethoxazole INTERPRETATION Susceptible Staphylococcus lugdunensis Linezolid INTERPRETATION Susceptible Staphylococcus lugdunensis Doxycycline INTERPRETATION Susceptible Staphylococcus lugdunensis Clindamycin INTERPRETATION Susceptible Staphylococcus lugdunensis Erythromycin INTERPRETATION Susceptible Staphylococcus lugdunensis Oxacillin INTERPRETATION Susceptible Staphylococcus lugdunensis Cefazolin INTERPRETATION Susceptible Staphylococcus lugdunensis Ceftriaxone INTERPRETATION Susceptible us Lauren Xiong NP LAB MICROBIOLOGY - GENERAL JORDYN SANDERS Final Result [facility] [place] [address] * LA INCISION & DRAINAGE ABSCESS SIMPLE/SINGLE (12/08/2023 6:00 PM MERGERS AND ACQUISITIONS MANAGER) Narrative Lauren Xiong NP - 12/08/2023 6:00 PM MERGERS AND ACQUISITIONS MANAGER Lauren Xiong NP ? 12/08/2023 ??6:33 PM Incision and Drainage Performed by: Lauren Xiong NP Authorized by: Lauren Xiong NP ?? Consent Given by: ??Patient Site marked: the procedure site was marked ?? Timeout: prior to procedure the correct patient, procedure, and site was verified ?? Verbal consent obtained: Yes ?? Risks, alternatives, and patient questions discussed: Yes ?? Type: ??Abscess Body area: ??Head Location details: ??Face Incision type: ??Single straight Incision depth: ??Subcutaneous Complexity: ??Simple Drainage: ??Purulent Drainage amount: ??Moderate Drainage amount (ml): ??3 Wound treatment: ??Wound left open Patient tolerance: ??Patient tolerated the procedure well with no immediate complications Lauren Xiong NP IN CLINIC/BEDSIDE ORDERABLES Fi nal Result documented in this encounter Visit Diagnoses Diagnosis Abscess of face- Primary Cellulitis and abscess of face Abscess of face Cellulitis and abscess of face documented in this encounter Historical Medications * This list may reflect changes made after this encounter. Medication Sig Dispense Quantity Refills Last Filled Start D ate End Date chlordiazePOXIDE (LIBRIUM) 25 mg capsule 11/29/2023 12/15/2023 added in this encounter Care Teams Plumbing Warehouse Helper Relationship Specialty Start Date End Date Clare Kasper MD PCP - General Family Medicine 07/27/22 documented as of this encounter
--- OUTSIDE RECORDS SUMMARY | 2024-11-04 22:14 | XMS_ITS | Encounter Summary ---
Author Organization [facility] Address [address] [place] [address] Care Team Providers Care Soap Drier Tender Name Role Phone Clare Kasper MD Primary Care Pro vider Reason for Visit * Reason Comments Palpitations * Consultation (Routine) - Closed Specialty Diagnoses / Procedures Referred By Contac t Referred To Contact Cardiology Diagnoses Palpitations ST segment changes on electrocardiography Clare Kasper MD [address] [facility] [address] [place] [address] Phone: tel: fax: [facility] Cardiology [address] [place] [phone] Phone: tel: fax: Referral ID Status Reason Start Date Expiration Date V isits Requested Visits Authorized [id number] Closed Specialty Services Required 10/26/2023 11/24/2024 1 1 Encounter Details Date Type Department Care Team (Latest Contact Info) Description 12/15/2023 2:15 PM BENCH CHEMIST Office Visit [facility] Cardiology [address] [place] [phone] Momo Latham MD [address] [facility] [address] [place] [address] Palpitations; ST segment changes on electrocardiography Social History Tobacco Use Types Packs/Day Years [...] on file Legal Sex Male 2:37 PM BENCH CHEMIST Gender Identity Not on file Sexual Orientation Not on file documented as of this encounter Last Filed Vital Signs Vital Sign Reading Time Taken Comments Blood Pressure 130/78 12/15/2023 2:01 PM BENCH CHEMIST Pulse 87 12/15/2023 2:01 PM BENCH CHEMIST Temperature - - Respiratory Rate - - Oxygen Saturation 98% 12/15/2023 2:01 PM BENCH CHEMIST Inhaled Oxygen Concentration - - Weight 52.2 kg (115 lb) 12/15/2023 2:01 PM BENCH CHEMIST Height 170.2 cm (5' 7 ) 12/15/2023 2:01 PM BENCH CHEMIST Body Mass Index 18.01 12/15/2023 2:01 PM BENCH CHEMIST documented in this encounter Progress Notes * Momo Latham MD - 12/15/2023 2:15 PM CST Images from the original note were not included. Cardiology Initial Clinic Visit HPI: We are seeing Yariel Hill in clinic today for initial office visit for abnormal ekg. He is not having any sympoms and is quite active. Review of Systems: 14 point ROS was discussed with the patient and is negative except as noted in the history of present illness. Past Medical History: Diagnosis Date Alcohol abuse Anemia Anxiety GERD (gastroesophageal reflux disease) Hypertension Pancreatitis Vitamin D deficiency 11/28/2012 Past Surgical History: Procedure Laterality Date CARPAL TUNNEL RELEASE Left 2008 COLONOSCOPY UPPER GASTROINTESTINAL ENDOSCOPY Current Outpatient Medications: amLODIPine, 10 mg, oral, Daily doxycycline, 100 mg, oral, Q12H omeprazole, Take 1 capsule daily for 8 weeks. Then take 1 capsule every other day for 2 weeks then stop. rosuvastatin, 5 mg, oral, Daily buPROPion SR, 150 mg, oral, BID (Patient not taking: Reported on 12/15/2023) naltrexone, 50 mg, oral, Daily (Patient not taking: Reported on 12/15/2023) traZODone, 50 mg, oral, Nightly PRN triamcinolone, Apply topically 2 (two) times a day as needed for irritation or rash Do not use daily for more than 2 weeks at a time Allergies Allergen Reactions Other Other (See comments) and Swelling DOVE SENSITIVE SOAP-- Painful swelling DOVE SENSITIVE SOAP-- Painful swelling Social History Tobacco Use Smoking status: Every Day Packs/day: 0.50 Years: 15.00 Additional pack years: 0.00 Total pack years: 7.50 Types: Cigarettes Start date: 05/11/2000 Last attempt to quit: 07/26/2022 Years since quittin.3 Passive exposure: Yes Smokeless tobacco: Never Tobacco comments: 8 cigs a day Substance and Sexual Activity Drug use: Not Currently Types: Alcohol, Benzodiazepines Sexual activity: Not Currently Partners: Female Alcohol Use: Unknown (10/25/2023) AUDIT-C Frequency of Alcohol Consumption: 2-3 times a week Average Number of Drinks: Not on file Frequency of Binge Drinking: Not on file Family History Problem Relation Age of Onset Kidney cancer Father Cancer, kidney; Other (renal cancer) Father Hypertension Mother Hypertension; Alcohol abuse Brother Physical Exam: Vitals BP 130/78 Pulse 87 Ht 170.2 cm (5' 7 ) Wt 52.2 kg (115 lb) SpO2 98% BMI 18.01 kg/m?? General: Pleasant male in no acute distress. HEENT: normocephalic, atraumatic, no conjunctival injection, no scleral icterus Neck: No JVD, no thyromegaly Lungs: Clear bilaterally. No rales. No rhonchi. No wheezing. Cardiac: Normal rate, regular rhythm, no murmurs, no rubs, no gallops. PMI nondisplaced. Abdomen: Soft, nontender, nondistended. No masses. No bruits. No hepatosplenomegaly. Extremities: Warm and well perfused. No clubbing. No cyanosis. No edema Skin: No rashes noted. No lesions noted. Psych: Appropriate affect. Appropriate mood. Neuro: A&O x 4. Moving all extremities well. 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 Reportedly abnormal, does not appear pathological to me. Patient is asymptomatic. Noindication for further testing at this time. Strict return precautions if symptoms develop. -hypertension. Medications reviewed. Good control. -hyperlipidemia. On 5 mg of Crestor. Lipids reviewed. -smoking. Cessation advised. -alcohol abuse. Working on cessation efforts with his primary care physician. -Cardiac Risk Reduction. I have discussed with the patient the importance of healthy diet and regular exercise. We appreciate the opportunity to take care of Yariel Hill. Please do not hesitate to call us if you have any questions or concerns. Sincerely yours, Momo Latham MD H CHEMIST documented in this encounter Plan of Treatment [...] telling anyone). documented as of this encounter Visit Diagnoses Diagnosis Palpitations ST segment changes on electrocardiography documented in this encounter Discontinued Medications Medication Sig Discontinue Reason Start Date End Da te chlordiazePOXIDE (LIBRIUM) 25 mg capsule 024 12/15/2023 documented as of this encounter Orders Outpatient Referral Count Last Ordered Date Fir st Ordered Date AMB REFERRAL TO CARDIOLOGY 1 12/15/2023 documented in this encounter Care Teams Soap Drier Tender Relationship Specialty Start Date End Date Clare Kasper MD PCP - General Family Medicine 07/27/22 documented as of this encounter
--- OUTSIDE RECORDS SUMMARY | 2024-11-04 22:14 | XMS_ITS | Encounter Summary ---
Author Organization [facility] Address [address] [place] [address] Phone Care Team Providers Care Cascara Bark Cutter Name Role Phone Clare Kasper MD Primary Care Pro vider Reason for Visit * Reason Comments Skin Exam Encounter Details Date Type Department Care Team (Late st Contact Info) Description 04/12/2024 1:45 PM CDT Office Visit 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 male new to clinic, here today for evaluation and to establish care. Pt states today, Gets swelling nodule on face that was recently drained from ER. Pus was drained. Pt notes it does not itch. Nodules do not present on any other part of body. Pt does smoke. No rash is present after pt uses Dove Sensitive Soap. Has previously used a steroid cream for rash,but not on the face. No other associated symptoms, exacerbating or alleviating factors. No other painful, bleeding or pruritic areas. No other new, changing or otherwise suspicious lesions. HISTORY Medications and allergies reviewed in chart Past medical, family and social history reviewed and noncontributory unless noted in HPI. 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 REVIEW OF SYSTEMS Constitutional: [ ] lack of energy, [ ] unexplained weight gain/loss, [ ] appetite loss, [ ] fever,[ ] night sweats, [ ] pain with mastication, [ ] scalp tenderness, [ ] prior cancer diagnosis, [ ] other ___ ENT: [ ] difficulty hearing, [ ] sinus problems, [ ] runny nose, [ ] post-nasal drip, [ ] ringing in ears, [ ] mouth sores, [ ] loose teeth, [ ] ear pain, [ ] nosebleeds, [ ] sore throat, [ ] facial pain/numbness, [ ] other ___ CV: [ ] irregular heartbeat, [ ] racing heart, [ ] chest pains, [ ] swelling of feet/legs, [ ] painin legs while walking, [ ] other ___ Resp: [ ] shortness of breath, [ ] night sweats, [ ] prolonged cough, [ ] wheezing, [ ] sputum production, [ ] prior tuberculosis, [ ] pleurisy, [ ] oxygen at home, [ ] coughing up blood, [ ] abnormal CXR, [ ] other ___ GI: [ ] heartburn, [ ] constipation, [ ] food intolerance, [ ] diarrhea, [ ] abdominal pain, [ ] difficulty swallowing, [ ] nausea, [ ] vomiting, [ ] bloody stool, [ ] unexplained change in bowel habits, [ ] incontinence, [ ] other ___ : [ ] painful urination, [ ] frequent urination, [ ] urgency, [ ] prostate problems, [ ] bladder problems, [ ] impotence, [ ] other ___ MSK: [ ] joint pain, [ ] muscle aches, [ ] shoulder pain, [ ] joint swelling, [ ] joint deformity, [ ] back pain, [ ] other ___ Integ: [ ] persistent rash, [ ] itching, [ ] new skin lesions, [ ] change in existing skin lesions,[ ] hair loss/increase, [ ] breast changes, [x] Itching Bumps Neuro: [ ] frequent headaches, [ ] double vision, [ ] weakness, [ ] change in sensation, [ ] problems with walking/balance, [ ] dizziness, [ ] tremor, [ ] loss of consciousness, [ ] uncontrolled motions, [ ] episodes of visual loss, [ ] other ___ Psych: [ ] insomnia, [ ] irritability, [ ] depression, [ ] anxiety, [ ] recurrent bad thoughts, [ ]mood swings, [ ] hallucinations, [ ] compulsions, [ ] other ___ Endocrine: [ ] heat/cold intolerance, [ ] menstrual irregularities, [ ] frequent hunger/urination/thirst, [ ] changes in sex drive, [ ] other ___ Heme: [ ] easy bleeding, [ ] easy bruising, [ ] anemia, [ ] abnormal blood tests, [ ] leukemia, [ ]unexplained swollen areas, [ ] other ___ Allergy/Immunology: [X] seasonal allergies, [ ] hay fever symptoms, [ ] frequent infections, [ ] HIV exposure, [ ] other ___ Positive if X present, negative if no X present Patient advised to discuss non-dermatologic ROS concerns with a primary care physician PHYSICAL EXAM Gen and Cardio: Well-developed and well-nourished in no acute distress. Alert oriented and interacts appropriately. Normal conjunctiva. Normal skin sensation. No lower extremity edema. Head and neck and upper limbs exam: Well developed and well-nourished in no acute distress. Alert oriented and interacts appropriately. Normal conjunctiva. Normal skin sensation. A waist-up examination was performed with close inspection and palpation where indicated and as allowed by the patient of the hair, scalp, face, lips, neck, right upper and left upper extremities, hands, nails and digits. The exam was notable for the following findings: Subcutaneous nodule on lateral R Eye Scaly, xerotic rash on across trunk and extremities ASSESSMENT AND PLAN Nodule with Fluid on Lateral R eye DDx: Cyst vs. Abscess vs. Boil Discussed nature of condition. Benign Recommended to Start OTC BPO 3-5% wash. Apply and leave on for 3-5 minutes before rinsing. SER including bleaching and dryness. - Instructed to stop if itchiness occurs. Allergic Contact Dermatitis, face - AVOID all products than otherwise discussed - Gave handout for soap recommendations - Recommendation of bar soaps over gels - Recommended application of thick, bland emollient of Vaseline to affected areas - Recommendation to moisturize after washing - Recommended future patch testing - Start Pimecrolimus (Elidel) 1% cream to AA face BID. SER including irritation. Return visit: PRN Patient was instructed to return sooner should they develop any new, changing and/or worsening lesions, side effects of any recommended treatments, or as needed. SCRIBE ATTESTATION By signing my name, IUrszula, kalyan, attest that this documentation has been prepared under the direction and in the presence of Dr. Morales 04/12/2024 8:29 AM ATTENDING ATTESTATION I personally performed the services described in this documentation, reviewed and edited the documentation which was dictated to the scribe in my presence, and it accurately records my words and actions. Electronically Signed: Thao Morales MD, PhD documented in this encounter Plan of Treatment [...] as of this encounter Visit Diagnoses Diagnosis Allergic contact dermatitis due to other agents- Primary Keratinous cyst Sebaceous cyst documented in this encounter Care Teams Cascara Bark Cutter Relationship Specialty Start Date End Date Clare Kasper MD PCP - General Family Medicine 07/27/22 documented as of this encounter
--- OUTSIDE RECORDS SUMMARY | 2024-11-04 22:14 | XMS_ITS | Encounter Summary ---
Author Organization [facility] Healthcare Address [address] [place] [address] Care Team Providers Care Transit Clerk Name Role Phone Clare Kasper MD Primary Care Pro vider Reason for Visit * Reason Comments Hospital Follow Up Er f/u Encounter Details Date Type Department Care Team ([facility] st Contact Info) Description 10/12/2024 1:45 PM ENTERPRISE APPLICATION ADMINISTRATOR Office Visit [facility] Primary Care at [address] [phone] Clare Kasper MD [address] [place] [phone] Alcohol use disorder (Primary Dx); Acute non-recurrent maxillary sinusitis Social History Tobacco Use Types Packs/Day Years [...] on file Legal Sex Male 2:37 PM ENTERPRISE APPLICATION ADMINISTRATOR Gender Identity Not on file Sexual Orientation Not on file documented as of this encounter Last Filed Vital Signs Vital Sign Reading Time Taken Comments Blood Pressure 137/88 10/12/2024 1:47 PM ENTERPRISE APPLICATION ADMINISTRATOR Pulse 100 10/12/2024 1:47 PM ENTERPRISE APPLICATION ADMINISTRATOR Temperature 36.8 ??C (98.2 ??F) 10/12/2024 1:47 PM CS T Respiratory Rate 18 10/12/2024 1:47 PM ENTERPRISE APPLICATION ADMINISTRATOR Oxygen Saturation 99% 10/12/2024 1:47 PM ENTERPRISE APPLICATION ADMINISTRATOR Inhaled Oxygen Concentration - - Weight 49.8 kg (109 lb 11.2 oz) 10/12/2024 1:47 PM ENTERPRISE APPLICATION ADMINISTRATOR Height 170.2 cm (5' 7 ) 10/12/2024 1:47 PM ENTERPRISE APPLICATION ADMINISTRATOR Body Mass Index 17.18 10/12/2024 1:47 PM ENTERPRISE APPLICATION ADMINISTRATOR documented in this encounter Progress Notes * Clare Kasper MD - 10/12/2024 1:45 PM CST Images from the original note were not included. Assessment/Plan: Assessment/Plan Diagnoses and all orders for this visit: Alcohol use disorder (Primary) Assessment & Plan: Recent relapse No evidence of withdrawal today Recommend cessation Acute non-recurrent maxillary sinusitis Comments: AFVSS, exam benign Discussed likely viral, recommend supportive treatment If not improving by next week or if worsening let me know and I can send in abx Follow up for annual in 2 months or sooner as needed if symptoms not improving or worsen. Strict return/ED precautions discussed. Subjective: Yariel Hill is a 54 y.o. male here for Chief Complaint Patient presents with Hospital Follow Up Er f/u HPI In the ED at [place] on Tuesday for 4-5 hours for alcohol detox. No alcohol use since discharge Having pressure behind eyes started 4d ago Review of Systems Constitutional: Negative for fever. HENT: Positive for congestion. Negative for sore throat. Respiratory: Positive for cough (mild, intermittent). Negative for shortness of breath. Gastrointestinal: Positive for vomiting (x1). Negative for abdominal pain. Objective: Vital signs were reviewed. Vitals: 10/12/24 1347 BP: 137/88 BP Location: Left arm Patient Position: Sitting Pulse: 100 Resp: 18 Temp: 36.8 ??C (98.2 ??F) TempSrc: Temporal SpO2: 99% Weight: 49.8 kg (109 lb 11.2 oz) Height: 170.2 cm (5' 7 ) Physical Exam Gen: NAD, comfortable, appears as stated age Eyes: no conjunctival injection, EOMI ENMT: external ears symmetric, L tympanic membranes within normal limits, R obscured by cerumen, oropharynx without significant erythema, no swelling. MMM CV: Regular rate and rhythm, no murmurs, rubs or gallops. Normal cap refill Pulm: no increased work of breathing, clear to asculation bilaterally, no wheezing, rhonchi or rales Abd: soft, non-tender, non-distended, bowel sounds present Skin: no rashes or nodules, warm and dry MSK/Neuro: symmetric limb movement Psych: alert and oriented to person/place/time, appropriate judgment and insight Clare Kasper MD RPRISE APPLICATION ADMINISTRATOR documented in this encounter Miscellaneous Notes * Assessment & Plan Note - Clare Kasper MD - 10/12/2024 2:18 PM CSTAssociated Problem(s): Alcohol use disorder Recent relapse No evidence of withdrawal today Recommend cessation RPRISE APPLICATION ADMINISTRATOR documented in this encounter Plan of Treatment [...] as of this encounter Visit Diagnoses Diagnosis Alcohol use disorder- Primary Acute non-recurrent maxillary sinusitis documented in this encounter Discontinued Medications Medication Sig Discontinue Reason Start Date End Da te traZODone (DESYREL) 50 mg tabletIndications:Primar y insomnia Take 1 tablet (50 mg total) by mouth nightly as needed for sleep Therapy completed 01/24/2023 10/12/2024 documented as of this encounter Care Teams Transit Clerk Relationship Specialty Start Date End Date Clare Kasper MD PCP - General Family Medicine 07/27/22 documented as of this encounter
--- OUTSIDE RECORDS SUMMARY | 2024-11-04 22:14 | XMS_ITS | Encounter Summary ---
Author Organization [facility] Healthcare Address [address] [place] [address] Care Team Providers Care Senior Process Control Tech Name Role Phone Clare Kasper MD Primary Care Pro vider Encounter Details Date Type Department Care Team (Latest Contact Info) Description 12/08/2023 6:30 PM DIRECTOR SUPPLY - 12/08/2023 11:59 PM [facility] Hospital Encounter [address] [address] Abscess of face Discharge Disposition: Discharge to home or self care Social History Tobacco Use Types Packs/Day Years [...] on file Legal Sex Male 2:37 PM DIRECTOR SUPPLY Gender Identity Not on file Sexual Orientation Not on file documented as of this encounter Medications at Time of Discharge buPROPion SR (WELLBUTRIN SR) 150 mg 12 hr tabletIndications:S moking Take 1 tablet (150 mg total) by mouth 2 (two) times a day 60 tablet 2 10/25/2023 omeprazole (PriLOSEC) 20 mg capsuleIndications: Gastroesophageal reflux disease, unspecified whether esophagitis present Take 1 capsule daily for 8 weeks. Then take 1 capsule every other day for 2 weeks then stop. 63 capsule 10/25/2023 triamcinolone (KENALOG) 0.1 % ointmentIndications :Eczema, unspecified type Apply topically 2 (two) times a day as needed for irritation or rash Do not use daily for more than 2 weeks at a time 30 g 09/30/2022 doxycycline 100 mg capsuleIndications: Skin/Soft Tissue Infection Take 1 tablet/capsule (100 mg total) by mouth every 12 (twelve) hours for 10 days 20 tablet/capsul e 12/08/2023 4 naltrexone (DEPADE) 50 mg tabletIndications:A lcohol abuse Take 1 tablet (50 mg total) by mouth daily 90 tablet 10/25/2023 4 amLODIPine (NORVASC) 10 mg tabletIndications:P rimary hypertension Take 1 tablet (10 mg total) by mouth daily 90 tablet 1 10/25/2023 4 chlordiazePOXIDE (LIBRIUM) 25 mg capsule 11/29/2023 4 rosuvastatin (CRESTOR) 5 mg tabletIndications:H yperlipidemia, unspecified hyperlipidemia type Take 1 tablet (5 mg total) by mouth daily 90 tablet 1 01/24/2023 4 traZODone (DESYREL) 50 mg tabletIndications:P rimary insomnia Take 1 tablet (50 mg total) by mouth nightly as needed for sleep 90 tablet 1 01/24/2023 4 documented as of this encounter Discharge Disposition Disposition Code Departure Means Destination Discharge to home or self care documented in this encounter Plan of Treatment [...] Procedure Name Priority Date/Time Associated Diagnosis Comments AEROBIC CULTURE AND GRAM STAIN Routine 12/08/2023 6:30 PM DIRECTOR SUPPLY Abscess of face documented in this encounter Results * (ABNORMAL) Aerobic culture and gram stain Abscess Face (12/08/2023 6:30 PM DIRECTOR SUPPLY) Direct Specimen Exam Stain: Few polymorphonuclear leukocytes seen. No organisms seen. CRISTY OROZCO Report Final Report: Few Staphylococcus lugdunensis Rare Mixed microorganisms. (.) CERNAM OROZCO Organism STAPHYLOCOCCUS LUGDUNENSIS CRISTY [facility] Organism MIXED MICROORGANISMS. CRISTY OROZCO Abscess (Face) 12/08/2023 6: 30 PM DIRECTOR SUPPLY 12/08/2023 9:20 PM DIRECTOR SUPPLY Narrative CRISTY BROWNING - 12/14/2023 2:30 PM DIRECTOR SUPPLY Specimen received on an ESwab. Testing performed by [facility] ([phone]) Specimens submitted from normally sterile body sites [...] lugdunensis Ceftriaxone INTERPRETATION Susceptible us Lauren Xiong [facility] MICROBIOLOGY - [facility] JORDYN SANDERS Final Result CRISTY OROZCO [facility] Department [place] [address] documented in this encounter Visit Diagnoses Diagnosis Abscess of face Cellulitis and abscess of face documented in this encounter Care Teams Senior Process Control Tech Relationship Specialty Start Date End Date Clare Kasper MD PCP - General Family Medicine 07/27/22 documented as of this encounter
--- OUTSIDE RECORDS SUMMARY | 2024-11-04 22:14 | XMS_ITS | Encounter Summary ---
Author Organization [facility] Healthcare Address [address] [place] [address] Care Team Providers Care Hospital Unit Clerk Name Role Phone Clare Kasper MD Primary Care Pro vider Reason for Visit * Reason Onset Date Comments Cyst 12/22/2023 Encounter Details Date Type Department Care Team ([facility] Contact Info) Description 12/22/2023 Nurse Triage [facility] Medical [facility] Primary Care at [address] [phone] Clare Kasper MD [address] [place] [id number] Social History Tobacco Use Types Packs/Day Years [...] on file 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 Area is soft and feels like it has a core. Denies fever, warmth, drainage. Took doxycycline for abscess 1 week ago. Appointment on 12/23/[address] Kasper. Care advice given including warm compresses, no squeezing area, antibiotic ointment. Call back instructions given regarding worsening of symptoms. Pt verbalizes understanding. OR PLANT TECHNICIAN * Telephone Encounter - Indigo Dia RN - 12/22/2023 3:30 PM CST Regarding: cyst on face near right eye ----- Message from Dari Rooney MA sent at 12/22/2023 12:57 PM INDOOR PLANT TECHNICIAN ----- Symptom Based Call Chief Complaint(s): cyst on face near right eye Duration: x2 weeks What type of symptom(s) is the patient experiencing? Non-Emergent. Is this a new or reoccurring symptom(s)? reoccurring What have you tried to help your symptom(s)? Cyst was lanced and then given Doxycycline Why was appointment not scheduled? Appointment availability did not meet the patient's need. Additional Comments: pt states that cyst is red around the area and is filling with fluid. He is not in any pain. It looks like it will break open any time. No numbness or tingling. Does message need to be routed? Yes-Action Needed OR PLANT TECHNICIAN documented in this encounter Plan of Treatment [...] Diagnoses Not on filedocumented in this encounter Care Teams Hospital Unit Clerk Relationship Specialty Start Date End Date Clare Kasper MD PCP - General Family Medicine 07/27/22 documented as of this encounter
--- OUTSIDE RECORDS SUMMARY | 2024-11-04 22:14 | XMS_ITS | Encounter Summary ---
Author Organization [facility] Healthcare Address [address] [place] [address] Care Team Providers Care Real Estate Listing Consultant Name Role Phone Clare Kasper MD Primary Care Pro vider Encounter Details Date Type Department Care Team (Late st Contact Info) Description 10/25/2023 3:40 PM MAIL ROOM Lab [facility] Lab [address] [place], [place] [id number] Annual physical exam; Thrombocytopenia (HCC); Primary hypertension; Elevated AST (SGOT); Hyperlipidemia, unspecified hyperlipidemia type Social History Tobacco Use Types Packs/Day Years [...] on file Legal Sex Male 2:37 PM MAIL ROOM Gender Identity Not on file Sexual Orientation [...] Procedure Name Priority Date/Time Associated Diagnosis Comments N. GONORRHOEAE/C. TRACHOMATIS AMPLIFICATION Routine 10/25/2023 4:27 PM MAIL ROOM Annual physical exam TRICHOMONAS VAGINALIS PCR Routine 10/25/2023 4:27 PM MAIL ROOM EGFR Routine 10/25/2023 4:27 PM MAIL ROOM Annual physical exam Primary hypertension Elevated AST (SGOT) DIFFERENTIAL AUTO Routine 10/25/2023 4:2 7 PM MAIL ROOM Annual physical exam Thrombocytopenia (HCC) HIV 1/2 ANTIBODY PLUS P24 ANTIGEN Routine 10/25/2023 4:27 PM MAIL ROOM Annual physical exam CBC WITH AUTO DIFFERENTIAL Routine 10/25/2023 4:27 PM MAIL ROOM Annual physical exam Thrombocytopenia (HCC) HEPATITIS PANEL, ACUTE Routine 10/25/2023 4:27 PM MAIL ROOM Annual physical exam RPR Routine 10/25/2023 4:27 PM MAIL ROOM Annual physical exam TSH Routine 10/25/2023 4:27 PM MAIL ROOM Annual physical exam LIPID PANEL Routine 10/25/2023 4:27 PM MAIL ROOM Hyperlipidemia, unspecified hyperlipidemia type COMPREHENSIVE METABOLIC PANEL Routine 10/25/2023 4:27 PM MAIL ROOM Annual physical exam Primary hypertension Elevated AST (SGOT) documented in this encounter Results * Trichomonas vaginalis PCR Urine (10/25/2023 4:27 PM MAIL ROOM) Trichomonas DNA Not Detected Not Detected CRISTY [facility] Comment: Interpretive Data This assay detects Trichomonas vaginalis by nucleic acid amplification testing (NAAT). This assay has been cleared by the [place] Food and Drug administration. The performance characteristics of this test have been verified by the [facility] laboratory. Excess blood in specimens may be inhibitory and result in false negative results. ??The performance of this test has not been evaluated in women or individuals less than 18 years of age. Current Interpretive Data last revised 2023. Testing performed by: [facility], [address] [facility], [place]., [address] Urine 10/25/2023 4:27 PM MAIL ROOM 10/25/2023 9:13 PM MAIL ROOM Clare Kasper MD LAB MICROBIOLOGY - GENERAL ORDERABLES Final Result CRISTY [address] [facility] Department [place] [address] * eGFR (10/25/2023 4:27 PM MAIL ROOM) eGFR 90 mL/min/1. 73 m2 CRISTY [facility] Comment: Interpretive Data Reference Interval Normal ?>/= 90 mL/min/1.73m2 Mildly decreased* ? 60 - 89 mL/min/1.73m2 Mildly to moderately decreased ?45 - 59 mL/min/1.73m2 Moderately to severely decreased ??30 - 44 mL/min/1.73m2 Severely decreased ?15 - 29 mL/min/1.73m2 Kidney Failure ?< 15 ??mL/min/1.73m2 *Relative to young adult level Estimated glomerular filtration rate is determined by the 2020 CKD-EPI equation recommended by the National Kidney Foundation (A Unifying Approach to GFR Estimation: Recommendations of the NKF-ASK Task Force on Reassessing the Inclusion of Race in Diagnosing Kidney Disease, JASN 2020). The CKD-EPI equation should not be used for patients with unstable renal function and has not been validated in children and those over 70. Current interpretive data was last reviewed 2021. Testing performed by: [facility], [address] [place] [address]., [address] Blood 10/25/2023 4:27 PM MAIL ROOM 10/25/2023 5:04 PM MAIL ROOM us Clare Kasper MD LAB BLOOD ORDERAB LES Final Result Performing Organization Address City/[facility]/ZIP Co de Phone Number CRISTY [address] [facility] Department [place] [address] * (ABNORMAL) Differential, auto (10/25/2023 4:27 PM MAIL ROOM) Neutrophil abs 8.9(H) 1.5 - 6.5 K/cumm CRISTY Comment:Testing performed by : [address] [address] Imm gran abs 0.0 0.0 - 0.1 K/cumm CRISTY Comment:Testing performed by : [address] [address] Lymphocyte abs 3.3 0.8 - 3.3 K/cumm CRISTY Comment:Testing performed by : [address] [address] Monocyte abs 0.8 0.2 - 0.8 K/cumm CRISTY Comment:Testing performed by : [address] [address] Eosinophil abs 0.4 0.0 - 0.5 K/cumm CRISTY Comment:Testing performed by : [address] [address] Basophil abs 0.1 0.0 - 0.1 K/cumm CRISTY Comment:Testing performed by : [address] [address] Neutrophil pct 65.7 % [facility] Comment: Interpretive Data Percent cell count reference ranges are not reported, since discordance with absolute values may lead to misinterpretation of CBC data. Current Interpretive Data was last revised on 2018. Testing performed by: [address] [address] Imm gran pct 0.2 % [facility] Comment: Interpretive Data Percent cell count reference ranges are not reported, since discordance with absolute values may lead to misinterpretation of CBC data. Current Interpretive Data was last revised on 2018. Testing performed by: [address] [address] Lymphocyte pct 24.6 % [facility] Comment: Interpretive Data Percent cell count reference ranges are not reported, since discordance with absolute values may lead to misinterpretation of CBC data. Current Interpretive Data was last revised on 2018. Testing performed by: [address] [address] Monocyte pct 6.1 % CRISTY Comment: Interpretive Data Percent cell count reference ranges are not reported, since discordance with absolute values may lead to misinterpretation of CBC data. Current Interpretive Data was last revised on 2018. Testing performed by: [address] [address] Eosinophil pct 2.9 % CRISTY Comment: Interpretive Data Percent cell count reference ranges are not reported, since discordance with absolute values may lead to misinterpretation of CBC data. Current Interpretive Data was last revised on 2018. Testing performed by: [address] [address] Basophil pct 0.5 % CRISTY Comment: Interpretive Data Percent cell count reference ranges are not reported, since discordance with absolute values may lead to misinterpretation of CBC data. Current Interpretive Data was last revised on 2018. Testing performed by: [address] [address] Blood 10/25/2023 4:27 PM MAIL ROOM 10/25/2023 5:04 PM MAIL ROOM Clare Kasper MD LAB BLOOD ORDERAB LES Final Result Performing Organization Address City/[facility]/ZIP Co de Phone Number [address] [facility] [place] [address] * RPR Blood (10/25/2023 4:27 PM MAIL ROOM) RPR Nonreactive Nonreactive CRISTY Comment:Testing performed by : [facility], [address] [facility], [place]., [address] Blood 10/25/2023 4:27 PM MAIL ROOM 10/25/2023 7:34 PM MAIL ROOM Clare Kasper MD LAB MICROBIOLOGY - GENERAL ORDERABLES Final Result [address] Department [place] [address] * N. gonorrhoeae/C. trachomatis Amplification Urine (10/25/2023 4:27 PM MAIL ROOM) Pathologist [facility] C. trachomatis Not Detected Not Detected CRISTY Comment:Testing performed by : [facility], [address] [place] [address]., [address] N. gonorrhoeae Not Detected Not Detected CRISTY Comment: Interpretive Data This assay detects Chlamydia trachomatis and Neisseria gonorrhoeae by nucleic acid amplification testing (NAAT). This assay has been cleared by the [place] Food and Drug administration. The performance characteristics of this test have been verified by the [facility]. The performance characteristics of this test have not been evaluated in individuals less than 14 years of age. Current Interpretive Data last revised 2023. Testing performed by: [facility], [address] [place] [address]., [address] Urine (None) 10/25/2023 4:27 PM MAIL ROOM 10/25/2023 7:32 PM MAIL ROOM us Clare Kasper MD LAB MICROBIOLOGY - GENERAL ORDERABLES Final Result CRISTY [address] [facility] Department [place] [address] * Hepatitis panel, acute Blood (10/25/2023 4:27 PM MAIL ROOM) [facility] Hep A IgM Nonreactive Nonreactive CRISTY Comment: Interpretive Data: If Hep A IgM Ab is reported as Equivocal, a new sample should be drawn in two weeks for testing. Current interpretive data was last revised on 20. Hep B core IgM Nonreactive Nonreactive CRISTY Comment: Interpretive Data If HepB Core IgM Ab is reported as Equivocal, a new sample should be drawn in two weeks for testing. Current interpretive data was last revised on 20. Hep C Ab Nonreactive Nonreactive CRISTY Comment: Antibodies to HCV not detected. Does [...] last revised on 2020. HepBsAg Nonreactive Nonreactive CRISTY Blood 10/25/2023 4:27 PM MAIL ROOM 10/25/2023 6:37 PM MAIL ROOM Clare Kasper MD LAB MICROBIOLOGY - GENERAL ORDERABLES Final Result Performing Organization Address [facility] Co de Phone Number [place] [phone] [facility] [place] [address] * HIV 1/2 Antibody plus p24 Antigen Blood (10/25/2023 4:27 PM MAIL ROOM) Pathologist [facility] HIV 1/2 ab + p24 ag Nonreactive Nonreactive [facility] Comment:Nonreactive for HIV- 1 antigen and HIV-1/HIV-2 antibodies. No laboratory evidence of HIV infection. If acute HIV infection is suspected, consider testing for HIV-1 RNA. Current interpretive data was last revised on 22. Blood 10/25/2023 4:27 PM MAIL ROOM 10/25/2023 6:37 PM MAIL ROOM Clare Kasper MD LAB MICROBIOLOGY - GENERAL ORDERABLES Final Result Performing Organization Address City/[facility] Co de Phone Number [place] [phone] [facility] [place] [address] * TSH (10/25/2023 4:27 PM MAIL ROOM) Thyroid Stimulating Hormone 2.71 0.30 - 4.20 mcIUnit/mL CRISTY Comment:Testing performed by : [facility], [address] [place] [address]., [address] Blood 10/25/2023 4:27 PM MAIL ROOM 10/25/2023 5:04 PM MAIL ROOM us Clare Kasper MD LAB BLOOD ORDERAB LES Final Result CRISTY [address] [facility] Department [place] [address] * Lipid panel (10/25/2023 4:27 PM MAIL ROOM) [facility] Cholesterol 133 30 - 199 mg/dL CRISTY Comment: Interpretive Data Ages < or = 19 years ??Acceptable: ? <170 mg/dL ??Borderline high: ??170-199 mg/dL ??High: ? >or= 200 mg/dL Ages > or = 20 years ??Desirable: ?<200 mg/dL ??Borderline high: ??200-239 mg/dL ??High: ? >or= 240 mg/dL Literature References: 1. Expert Panel on Integrated Guidelines for Cardiovascular Health and Risk Reduction in Children and Adolescents. Pediatrics 2011;128:S213 2. NCEP Expert Panel. Circulation 2004;110:227 Current Interpretive Data was last revised on 2018. Testing performed by: [facility], [address] [place] [address]., [address] Triglycerides 91 <=149 mg/dL CRISTY Comment: Interpretive Data Ages < or = 9 years ??Acceptable: ? <75 mg/dL ??Borderline high: ??75-99 mg/dL ??High: ? >or= 100 mg/dL Ages 10 to 20 years ??Acceptable: ? <90 mg/dL ??Borderline high: ??90-129 mg/dL ??High: ? >or= 130 mg/dL Ages > or = 20 years ??Desirable: ?<150 mg/dL ??Borderline high: ??150-199 mg/dL ??High: ? 200-499 mg/dL ?Very high: ?? >or= 499 mg/dL Literature References: 1. Expert Panel on Integrated Guidelines for Cardiovascular Health and Risk Reduction in Children and Adolescents. Pediatrics 2011;128:S213 2. NCEP Expert Panel. Circulation 2004;110:227 Current Interpretive Data was last revised on 2018. Testing performed by: [address] [address] HDL 59 >=40 mg/dL CRISTY Comment: Interpretive Data Ages < or = 19 years ??Acceptable: ? >45 mg/dL ??Borderline low: ?? 40-45 mg/dL ??Low: ? <40 mg/dL Ages > or = 20 years ??Desirable: ?>or= 60 mg/dL ??Low: ? <40 mg/dL Literature References: 1. Expert Panel on Integrated Guidelines for Cardiovascular Health and Risk Reduction in Children and Adolescents. Pediatrics 2011;128:S213 2. NCEP Expert Panel. Circulation 2004;110:227 Current Interpretive Data was last revised on 2018. Testing performed by: [address] [address] LDL, calculated 56 <=129 mg/dL CRISTY Comment: Interpretive Data Ages < or = 19 years ??Acceptable: ? <110 mg/dL ??Borderline high: ??110-129 mg/dL ??High: ?>or= 130 mg/dL Ages > or = 20 years ??Optimal: ? <100 mg/dL ??Near optimal: ?100-129 mg/dL ??Borderline high: ?? 130-159 mg/dL ??High: ?>160 mg/dL Literature References: 1. Expert Panel on Integrated Guidelines for Cardiovascular Health and Risk Reduction in Children and Adolescents. Pediatrics 2011;128:S213 2. NCEP Expert Panel. Circulation 2004;110:227 Current Interpretive Data was last revised on 2018. Testing performed by: [address] [place]., [address] Non-HDL Cholesterol 74 mg/dL CRISTY [facility] Comment: Interpretive Data Ages < or = 19 years ??Acceptable: ?<120 mg/dL ??Borderline high: ??120-144 mg/dL ??High: ?>145 mg/dL Ages > or = 20 years ??When triglycerides are >200 mg/dL, Non-HDL cholesterol is a secondary target of ? therapy with treatment goals that are 30 mg/dL greater than the LDL cholesterol target. ? Literature References: 1. Expert Panel on Integrated Guidelines for Cardiovascular Health and Risk Reduction in Children and Adolescents. Pediatrics 2011;128:S213 2. NCEP Expert Panel. Circulation 2004;110:227 Current Interpretive Data was last revised on 2018. Testing performed by: [address] [address] Chol/HDL ratio 2 CRISTY [facility] Comment:Testing performed by : [address] [address] Blood 10/25/2023 4:27 PM MAIL ROOM 10/25/2023 5:04 PM MAIL ROOM Clare Kasper MD LAB BLOOD ORDERAB LES Final Result CRISTY [address] [facility] Department of Laboratories [place], [place] [id number] * (ABNORMAL) Comprehensive metabolic panel (10/25/2023 4:27 PM MAIL ROOM) Sodium 140 135 - 145 mmol/L CRISTY [facility] Comment:Testing performed by : [address] [address] Potassium, pl 4.2 3.3 - 4.9 mmol/L CRISTY [facility]OVER Comment:Testing performed by : [address] [address] Chloride 101 97 - 110 mmol/L CRISTY [facility]OVER Comment:Testing performed by : [address] [address] CO2 24 22 - 32 mmol/L CRISTY [facility] Comment:Testing performed by : [address] [address] Anion gap 15 2 - 15 mmol/L CRISTY Comment:Testing performed by : [address] [address] BUN 10 6 - 25 mg/dL CRISTY Comment:Testing performed by : [address] [address] Creatinine 1.00 0.80 - 1.30 mg/dL CRISTY Comment:Testing performed by : [address] [address] Glucose 69(L) 70 - 199 mg/dL CRISTY Comment: Interpretive Data Fasting glucose >/= 126 mg/dl is diagnostic for diabetes. ?? Fasting is defined as no caloric intake for at least 8 hours. Fasting glucose between 100 mg/dl to 125 mg/dl is diagnostic of prediabetes. In a patient with classic symptoms of hyperglycemia or hyperglycemic crisis, a random glucose >/= 200 mg/dl is diagnostic for diabetes. In the absence of unequivocal hyperglycemia, results should be confirmed by repeat testing. The classification and Diagnosis of Diabetes Diabetes Care 2021; 46: S19-S40. Current interpretive data was last revised 2022. Testing performed by: [address] [address] Calcium 10.1 8.5 - 10.3 mg/dL CRISTY Comment:Testing performed by : [address] [address] Bilirubin, total 0.6 0.1 - 1.2 mg/dL CRISTY Comment:Testing performed by : [address] [address] Protein, pl 8.0 6.5 - 8.5 g/dL CRISTY Comment:Testing performed by : [address] [address] Albumin 5.0 3.5 - 5.0 g/dL CRISTY Comment:Testing performed by : [address] [address] Alk phos 79 40 - 130 Units/L CRISTY Comment:Testing performed by : [address] [address] ALT 13 7 - 55 Units/L CRISTY [facility]OVER Comment:Testing performed by : [address] [address] AST 28 10 - 50 Units/L CRISTY [facility]OVER Comment:Testing performed by : [address] [address] Blood 10/25/2023 4:27 PM MAIL ROOM 10/25/2023 5:04 PM MAIL ROOM us Clare Kasper MD LAB BLOOD ORDERAB LES Final Result C[facility]STY [facility] Department [place] [address] * (ABNORMAL) CBC with auto differential (10/25/2023 4:27 PM MAIL ROOM) WBC 13.5(H) 3.8 - 9.9 K/cumm CRISTY GLOVER Comment:Testing performed by : [address] [address] Hgb 14.8 13.0 - 17.5 g/dL CRISTY GLOVER Comment:Testing performed by : [address] [address] Hct 42.5 38.9 - 50.3 % CRISTY GLOVER Comment:Testing performed by : [address] [address] Plt 200 150 - 400 K/cumm CRISTY GLOVER Comment:Testing performed by : [address] [address] MPV 9.0(L) 9.1 - 12.3 fL CRISTY GLOVER Comment:Testing performed by : [address] [address] RBC 4.55 4.30 - 5.80 M/cumm CRISTY GLOVER Comment:Testing performed by : [address] [address] MCV 93.4 81.3 - 96.4 fL CRISTY GLOVER Comment:Testing performed by : [address] [place]., [address] MCH 32.5 27.1 - 33.3 pg CRISTY GLOVER Comment:Testing performed by : [address] [address] MCHC 34.8 32.3 - 35.7 g/dL CRISTY GLOVER Comment:Testing performed by : [address] [address] RDW CV 13.2 11.1 - 14.9 % CRISTY GLOVER Comment:Testing performed by : [address] [address] RDW SD 45.8 35.7 - 48.1 fL CRISTY GLOVER Comment:Testing performed by : [address], [address] NRBC abs 0.00 0.00 - 0.01 K/cumm CRISTY GLOVER Comment:Testing performed by : [address], [address] Blood 10/25/2023 4:27 PM MAIL ROOM 10/25/2023 5:04 PM MAIL ROOM us Clare Kasper MD LAB BLOOD ORDERAB LES Final Result CRISTY [address] Department [place] [address] documented in this encounter Visit Diagnoses Diagnosis Annual physical exam Routine general medical examination at a health care facility Thrombocytopenia (HCC) Unspecified thrombocytopenia Primary hypertension Unspecified essential hypertension Elevated AST (SGOT) Hyperlipidemia, unspecified hyperlipidemia type documented in this encounter Care Teams Real Estate Listing Consultant Relationship Specialty Start Date End Date Clare Kasper MD PCP - General Family Medicine 07/27/22 documented as of this encounter
--- OUTSIDE RECORDS SUMMARY | 2024-11-04 22:14 | XMS_ITS | Encounter Summary ---
Author Organization [facility] Healthcare Address [address] [place] [address] Care Team Providers Care Industrial Maintenance Instructor Name Role Phone Clare Kasper MD Primary Care Pro vider Reason for Visit * Reason Comments Cyst Right corner of eye Encounter Details Date Type Department Care Team (Late st Contact Info) Description 12/23/2023 2:30 PM TAPPET ADJUSTER Office Visit [facility] Medical Group Primary Care at [address] [phone] Clare Kasper MD [address] [place] [phone] Abscess of face (Primary Dx) Social History [...] on file Legal Sex Male 2:37 PM TAPPET ADJUSTER Gender Identity Not on file Sexual Orientation Not on file documented as of this encounter Last Filed Vital Signs Vital Sign Reading Time Taken Comments Blood Pressure 130/78 12/23/2023 2:33 PM TAPPET ADJUSTER Pulse 81 12/23/2023 2:33 PM TAPPET ADJUSTER Temperature 36.7 ??C (98.1 ??F) 12/23/2023 2:33 PM CS T Respiratory Rate 20 12/23/2023 2:33 PM TAPPET ADJUSTER Oxygen Saturation 97% 12/23/2023 2:33 PM TAPPET ADJUSTER Inhaled Oxygen Concentration - - Weight 52.1 kg (114 lb 12.8 oz) 12/23/2023 2:33 PM TAPPET ADJUSTER Height 170.2 cm (5' 7 ) 12/23/2023 2:33 PM TAPPET ADJUSTER Body Mass Index 17.98 12/23/2023 2:33 PM TAPPET ADJUSTER documented in this encounter Progress Notes * Clare Kasper MD - 12/23/2023 2:30 PM CST Images from the original note were not included. Assessment/Plan: Assessment/Plan Diagnoses and all orders for this visit: Abscess of face (Primary) Comments: S/p I&D at , reviewed note Completed course of abx Nothing to drain today No indication for further abx Recommend warm compresses 30m 3-4x/day Follow up if symptoms not improving or worsen. Strict return/ED precautions discussed. Subjective: Yariel Hill is a 53 y.o. male here for Chief Complaint Patient presents with Cyst Right corner of eye HPI Seen at [facility] 12/08 and had I&D and given doxycycline, took for 10d with significant improvement. Still has bump there Review of Systems Skin: Positive for wound. Objective: Vital signs were reviewed. Vitals: 12/23/23 1433 BP: 130/78 BP Location: Right arm Patient Position: Sitting Pulse: 81 Resp: 20 Temp: 36.7 ??C (98.1 ??F) TempSrc: Temporal SpO2: 97% Weight: 52.1 kg (114 lb 12.8 oz) Height: 170.2 cm (5' 7 ) Physical Exam Gen: NAD, comfortable, appears as stated age Eyes: no conjunctival injection, EOMI ENMT: external ears symmetric CV: Regular rate Pulm: no increased work of breathing Skin: hyperpigmented approximately 5mm firm nodule on medial R gnosticism without erythema, fluctuance or drainage, warm and dry MSK/Neuro: symmetric limb movement Psych: alert and oriented to person/place/time, appropriate judgment and insight Clare Kasper MD ET ADJUSTER documented in this encounter Plan of Treatment [...] as of this encounter Visit Diagnoses Diagnosis Abscess of face- Primary Cellulitis and abscess of face documented in this encounter Care Teams Industrial Maintenance Instructor Relationship Specialty Start Date End Date Clare Kasper MD PCP - General Family Medicine 07/27/22 documented as of this encounter
--- OUTSIDE RECORDS SUMMARY | 2024-11-04 22:14 | XMS_ITS | Encounter Summary ---
Author Organization [facility] Healthcare Address [address] [place] [address] Care Team Providers Care Chimney Supervisor Brick Name Role Phone Clare Kasper MD Primary Care Pro vider Reason for Visit * Reason Onset Date Comments Test Results 10/26/2023 Encounter Details Date Type Department Care Team ([facility] Contact Info) Description 10/26/2023 Telephone [facility] Medical Group Primary Care at [address] [phone] Clare Kasper MD [address] [place] [address] Test Results Social History Tobacco Use Types Packs/Day Years [...] on file Legal Sex Male 2:37 PM VIDEO PHOTOGRAPHER Gender Identity Not on file Sexual Orientation Not on file documented as of this encounter Miscellaneous Notes * Telephone Encounter - Mia Snyder MA - 10/26/2023 1:24 PM CST Spoke to pt in regards to results. He is supposed to fly tomorrow to [place] and was wondering if it was safe for him to do. I asked dr. Kasper and she stated that it may not be advisable. Pt was curious as to what the cause of this could be and per Dr. Kasper- likely related to decreased bloodflow to the heart, which can cause a heart attack. Pt verbalized understanding. Cardiology phone number provided to pt. Nothing further at this time. O PHOTOGRAPHER * Telephone Encounter - Rita Foret - 10/26/2023 1:03 PM CST Call Back Caller???s Concern: Patient calling Mia back. AC reviewed notes and transferred patient tot backline Does message need to be routed? No O PHOTOGRAPHER * Telephone Encounter - Mia Snyder MA - 10/26/2023 12:55 PM CST Tried calling pt but phone call was lost. Unable to reach. Will try again. O PHOTOGRAPHER * Telephone Encounter - Mia Snyder MA - 10/26/2023 12:55 PM CST ----- Message from Clare Kasper MD sent at 10/26/2023 11:14 AM VIDEO PHOTOGRAPHER ----- Please advise EKG abnormal. I have placed a referral to cardiology, please give him the number to call if he hasn't heard from them to schedule. If he has any recurrent chest pain, palpitations, shortness of breath, etc advise he go to ED immediately. O PHOTOGRAPHER documented in this encounter Plan of Treatment [...] on filedocumented in this encounter Care Teams Chimney Supervisor Brick Relationship Specialty Start Date End Date Clare Kasper MD PCP - General Family Medicine 07/27/22 documented as of this encounter
--- OUTSIDE RECORDS SUMMARY | 2024-11-04 22:14 | XMS_ITS | Referral Summary ---
Author Organization [facility] Address [address] [place] [address] Care Team Providers Care Casing Worker Name Role Phone Clare Kasper MD Primary Care Pro vider Encounters Date Type Department Care Team Description 10/31/2024 Nurse Triage [facility] Primary Care at [address] [phone] Clare Kasper MD 10/12/2024 1:45 PM CARPENTRY PROFESSIONAL Office Visit [facility] Primary Care at [address] [phone] Clare Kasper MD Alcohol use disorder (Primary Dx); Acute non-recurrent maxillary sinusitis 10/11/2024 Telephone [facility] Primary Care at [address] [phone] Clare Kasper MD Medical Question/Miscellaneou s from Last 3 Months Allergies Active Allergy Reactions Criticality Noted Date [...] needed Assessment & Plan (10/25/2023 2:41 PM CARPENTRY PROFESSIONAL): Trazodone as needed Assessment & Plan (03/25/2022 [...] statin Assessment & Plan (10/25/2023 2:42 PM CARPENTRY PROFESSIONAL): Continue statin Assessment & Plan (01/24/2023 2:35 [...] (06/18/20) Assessment & Plan (10/25/2023 2:15 PM CARPENTRY PROFESSIONAL): Reviewed PMH & FH Phq reviewed Reviewed [...] July Assessment & Plan (09/29/2018 5:39 PM CARPENTRY PROFESSIONAL): Flu shot and referral for colonoscopy today Anemia 06/13/2018 Assessment & Plan (09/29/2018 5:27 PM CARPENTRY PROFESSIONAL): Mild anemia with last Hb 12.9 (from 12/2016). Folate, B12, Iron panel normal. -CBC today GERD (gastroesophageal reflux disease) 5 Assessment & Plan (03/27/2024 5:05 PM CDT): Stable off medications Assessment & Plan (10/25/2023 2:36 PM CARPENTRY PROFESSIONAL): Uncontrolled Restart omeprazole Assessment & Plan (01/24/2023 [...] amlodipine Assessment & Plan (10/25/2023 2:15 PM CARPENTRY PROFESSIONAL): Blood pressure controlled continue 10mg amlodipine Assessment [...] hyperkalemia Assessment & Plan (12/08/2020 12:32 PM CARPENTRY PROFESSIONAL): Blood pressure very well-controlled with amlodipine. No [...] daily Assessment & Plan (09/29/2018 5:25 PM CARPENTRY PROFESSIONAL): Poorly controlled hypertension 157/81 in clinic today. [...] cessation Assessment & Plan (10/25/2023 2:42 PM CARPENTRY PROFESSIONAL): Encourage cessation, he is interested in starting wellbutrin Assessment & Plan (09/29/2018 5:29 PM CARPENTRY PROFESSIONAL): Was given patches at our last visit however he feels like they make him itch. He continues to smoke 1/2PPD. -As he has other active issues going on today, namely ETOH cessation, we will defer further discussion to our next visit. Would consider pharmacologic therapy for him, chantix vs wellbutrin. Alcohol use disorder 11/13/2012 Assessment & Plan (10/12/2024 2:18 PM CARPENTRY PROFESSIONAL): Recent relapse No evidence of withdrawal today Recommend cessation Assessment & Plan (03/27/2024 5:04 PM CDT): continue cessation Assessment & Plan (10/25/2023 2:42 PM CARPENTRY PROFESSIONAL): Encourage cessation, he is interested in trying naltrexone Assessment & Plan (01/24/2023 2:40 PM CDT): Declines medications to calender let off helper in avoiding alcohol (naltrexone, antabuse, etc) currently Assessment & Plan (09/30/2022 9:03 AM CARPENTRY PROFESSIONAL): No withdrawal symptoms currently Discussed I don't [...] diet Assessment & Plan (09/29/2018 5:36 PM CARPENTRY PROFESSIONAL): He typically drinks twice a year for [...] 07/06/2019 Assessment & Plan (09/29/2018 5:30 PM CARPENTRY PROFESSIONAL): Mild sinus congestion today. No indication for [...] available. 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 [...] request) Assessment & Plan (09/29/2018 5:26 PM CARPENTRY PROFESSIONAL): Vitamin D 18 on 05/2018 labs, will start 50,000 units vit D weekly today. Arthralgia of shoulder 11/13/201206/13 Immunizations Name Administration Dates Next Due DTaP [...] Free 08/31/2013 Tdap 01/06/2024,11/20/2012 ZOSTER Recombinant 06/10/2023,04/04/2023 Social History Tobacco Use Types Packs/Day Years [...] on file Legal Sex Male 2:37 PM CARPENTRY PROFESSIONAL Gender Identity Not on file Sexual Orientation Not on file Last Filed Vital Signs Vital Sign Reading Time Taken Comments Blood Pressure 137/88 10/12/2024 1:47 PM CARPENTRY PROFESSIONAL Pulse 100 10/12/2024 1:47 PM CARPENTRY PROFESSIONAL Temperature 36.8 ??C (98.2 ??F) 10/12/2024 1:47 PM CS T Respiratory Rate 18 10/12/2024 1:47 PM CARPENTRY PROFESSIONAL Oxygen Saturation 99% 10/12/2024 1:47 PM CARPENTRY PROFESSIONAL Inhaled Oxygen Concentration - - Weight 49.8 kg (109 lb 11.2 oz) 10/12/2024 1:47 PM CARPENTRY PROFESSIONAL Height 170.2 cm (5' 7 ) 10/12/2024 1:47 PM CARPENTRY PROFESSIONAL Body Mass Index 17.18 10/12/2024 1:47 PM CARPENTRY PROFESSIONAL Plan of Treatment Not on file Goals Goal Patient Goal Type Associated Problems [...] 20. Hep B core IgM Nonreactive Nonreactive [facility] Comment: Interpretive Data If HepB Core IgM Ab is reported as Equivocal, a new sample should be drawn in two weeks for testing. Current interpretive data was last revised on 20. Hep C Ab Nonreactive Nonreactive [facility] Comment: Antibodies to HCV not detected. [...] on 2020. HepBsAg Nonreactive Nonreactive [facility] Blood 03/27/2024 5:41 PM CDT 03/27/2024 8:25 PM CDT Clare Kasper MD LAB MICROBIOLOGY - GENERAL ORDERABLES Final Result [facility] [address] [place] [address] * PSA screen (07/27/2022 5:14 PM CDT) [...] data last revised 22. Testing performed by: [facility], [address] [place] [place] [address]., [id number] Blood 07/27/2022 5:14 PM CDT 07/27/2022 5:18 PM CDT Clare Kasper MD LAB BLOOD ORDERAB LES Final Result [facility] [address] [employer] Department of Laboratories [place], [place] [id number] * COLONOSCOPY (06/24/2021 9:15 AM CDT) Anatomical Region Laterality Modality Other Narrative Procedure Note Noemi Mccoy MD - 06/24/2021 9:15 AM CDT [facility] Patient Name: Yariel Hill Procedure Date: 06/24/2021 9:15 AM Date of : 1970 Admit Type: Outpatient Age: 51 Gender: Male Attending MD: Noemi Mccoy M.D. Room: [facility] ENDOSCOPY ROOM 8 Note Status: Finalized Procedure: [...] were verified by the physician,the nurse, the shovel loader operator and the nuclear fuel enrichment technician in the procedure room. Respiratory Examination: [...] bowel preparation was evaluated using the BBPS ([place] Bowel Preparation Scale)with scores of: Right Colon [...] On: 06/24/2021 9:15 AM Recognized by the [employer] for promoting quality in endoscopy Noemi Mccoy MD ENDOSCOPY PROCEDURES Final R esult from Last 3 Months or Most Recently Relevant to Health Maintenance Insurance [facility] Advance Directives For more information, please contact: [phone] * Full Code (Latest Code Status on File) Date Activated Date Inactivated Comments 06/24/2021 8:04 AM 06/24/2021 2:35 PM * Full Code Date Activated Date Inactivated Comments 05/14/2020 9:51 AM 05/14/2020 5:15 PM Care Teams Casing Worker Relationship Specialty Start Date End Date Clare Kasper MD PCP - General Family Medicine 07/27/22
--- OUTSIDE RECORDS SUMMARY | 2024-11-04 22:14 | XMS_ITS | Encounter Summary ---
Author Organization [facility] Address [address] [place] [address] Phone Care Team Providers Care Log Buyer Name Role Phone Clare Kasper MD Primary Care Pro vider Reason for Visit * Reason Onset Date Comments Medication Problem 04/16/2024 Pimecrolimus Encounter Details Date Type Department Care Team (Late st Contact Info) Description 04/16/2024 Telephone [facility] Dermatology [facility] [address] [place] [address] Annmarie Bryan Medication Problem (Pimecrolimus) Social History Tobacco Use Types Packs/Day Years [...] on file 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 Karyna needs a prior authorization for pimecrolimus documented in this encounter Plan of Treatment [...] on filedocumented in this encounter Care Teams Log Buyer Relationship Specialty Start Date End Date Clare Kasper MD PCP - General Family Medicine 07/27/22 documented as of this encounter
--- OUTSIDE RECORDS SUMMARY | 2024-11-04 22:14 | XMS_ITS | Encounter Summary ---
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 Pt has used heat to area with no relief or improvement. Denies fever. Pt would like to be seen. DISPO: See today in office Reviewed care options with Yariel Hill verbalizing understanding and willingness to follow. Assisted with appt today at [facility] at 1800 Reason for Disposition Eyelid is very swollen and no fever Protocols used: [id number] PAPER HANGER HELPER * Telephone Encounter - Kassie Hanson RN - 12/08/2023 11:38 AM CST Regarding: cyst/boil by right eye ----- Message from Lizy Birmingham sent at 12/08/2023 10:24 AM WALLPAPER HANGER HELPER ----- Symptom Based Call Chief Complaint(s): cyst/boil by right eye Duration: 6 days What type of symptom(s) is the patient experiencing? Non-Emergent. Is this a new or reoccurring symptom(s)? new What have you tried to help your symptom(s)? antibiotics Why was appointment not scheduled? Appointment availability did not meet the patient's need. Additional Comments: patient states for the past 6 days he's had a cyst or boil near his right eye that has gotten bigger and looks like it's ready to burst. Patient has been taking antibiotics he had from Dr Kasper from when he was sick in September, because he thinks there's an infection in thishard bump near his eye. Patient had a similar bump on his earlobe in January of last year that Dr Kasper had to lalita & drain. Patient wants to be seen to get this taken care, especially if it's infected. Does message need to be routed? Yes-Action Needed PAPER HANGER HELPER documented in this encounter Plan of Treatment [...] on filedocumented in this encounter Care Teams Infantry Assaultman Relationship Specialty Start Date End Date Clare Kasper MD PCP - General Family Medicine 07/27/22 documented as of this encounter
--- OUTSIDE RECORDS SUMMARY | 2024-11-04 22:14 | XMS_ITS | Encounter Summary ---
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 Gender Identity Not on file Sexual Orientation [...] Procedure Name Priority Date/Time Associated Diagnosis Comments URINALYSIS AND REFLEX TO MICROSCOPIC AND CULTURE Routine 03/30/2024 11:10 AM CDT Hematuria, unspecified type URINALYSIS, MICROSCOPIC ONLY Routine 03/30/2024 11:10 AM CDT Hematuria, unspecified type CREATINE KINASE (CK), TOTAL Routine 03/30/2024 11:10 AM CDT Hematuria, unspecified type EGFR Routine 03/30/2024 11:09 AM CDT Hematuria, unspecified type COMPREHENSIVE METABOLIC PANEL Routine 03/30/2024 11:09 AM CDT Hematuria, unspecified type documented in this encounter Results * Creatine kinase (CK), total (03/30/2024 11:10 AM CDT) CK 167 40 - 300 Units/L Comment:Testing performed by : [address] [address] Blood 03/30/2024 11:1 0 AM CDT 03/30/2024 2:08 PM CDT Clare Kasper MD LAB BLOOD ORDERAB LES Final Result Performing Organization Address [facility] Co de Phone Number CRISTY [address] [facility] [place] [address] * Urinalysis, microscopic only (03/30/2024 11:10 AM CDT) WBC, ur 0-5 0 - 5 /HPF Comment:Testing performed by : [address] [address] RBC, ur 0-2 0 - 2 /HPF CRISTY Comment:Testing performed by : [address] [address] Epithelial cells, squamous, ur 1-5 0 - 5 /HPF CRISTY Comment:Testing performed by : [address] [address] Culture Reflex Comment Reflex conditions for urine culture (WBC >10) not met. CRISTY Comment:Testing performed by : [address] [address] Urine, clean voided 03/30/2024 11:10 AM CDT 03/30/2024 11:39 AM CDT Clare Kasper MD LAB URINE ORDERAB LES Final Result Performing Organization Address [facility]/State/ZIP Co de Phone Number CRISTY [place] [address] [facility] [place] [address] * (ABNORMAL) Urinalysis reflex to microscopic and culture Urine, clean voided (03/30/2024 11:10 AM CDT) Color, ur Yellow Yellow Comment:Testing performed by : [address] [address] Clarity, ur Clear Clear CRISTY Comment:Testing performed by : [address] [address] Specific gravity, ur 1.018 1.003 - 1.030 CRISTY Comment:Testing performed by : [address] [address] pH, urine 5.5 CRISTY Comment: Interpretive Data ? Urine pH is affected by diet, medications, systemic acid-base disturbances, and renal tubular function. ??pH may affect urinary stone formation. ??For example, urine pH below 6.0 may help reduce the tendency for calcium phosphate stones and pH greater than 6.0 may reduce the tendency for uric acid stone formation. Source: [facility] Current Interpretive Data was last revised on 2017 Testing performed by: [address] [address] Protein, ur ql Negative Negative CRISTY Comment:Testing performed by : [address] [address] Glucose, ur ql Negative Negative CRISTY Comment:Testing performed by : [address] [address] Ketones, ur Negative Negative CRISTY Comment:Testing performed by : [address] [address] Bilirubin, ur Negative Negative CRISTY Comment:Testing performed by : [address] [address] Blood, ur 2+(A) Negative CRISTY [place] Comment:Testing performed by : [address] [address] Urobilinogen, ur <2.0 <2.0 mg/dL CRISTY [place] Comment:Testing performed by : [address] [place] [address] Nitrite, ur Negative Negative CRISTY Comment:Testing performed by : [address] [address] Leukocyte esterase, ur Negative Negative CRISTY Comment:Testing performed by : [facility], [address] [place] [address]., [address] UA reflex comment Reflex to microscopic UA will be performed. CRISTY Comment:Testing performed by : [address] [address] Urine, clean voided 03/30/2024 11:10 AM CDT 03/30/2024 11:39 AM CDT us Clare Kasper MD LAB MICROBIOLOGY - GENERAL ORDERABLES Final Result Performing Organization Address City/State/[facility] Co de Phone Number CRISTY [address] [facility] [place] [address] * eGFR (03/30/2024 11:09 AM CDT) eGFR 90 >=60 mL/min/1. 73 m2 Comment: Interpretive Data Reference Interval Normal ?>/= [...] Inclusion of Race in Diagnosing Kidney Disease, RICK 2020). The CKD-EPI equation should not be used for patients with unstable renal function and has not been validated in children and those over 70. Current interpretive data was last reviewed 2021. Testing performed by: [address] [address] Blood 03/30/2024 11:0 9 AM CDT 03/30/2024 1:29 PM CDT us Clare Kasper MD LAB BLOOD ORDERAB LES Final Result [facility] [address] [facility] [place] [address] * (ABNORMAL) Comprehensive metabolic panel (03/30/2024 11:09 AM CDT) Sodium 139 135 - 145 mmol/L Comment:Testing performed by : [address] [address] Potassium, pl 4.5 3.3 - 4.9 mmol/L CRISTY Comment:Testing performed by : [address] [address] Chloride 102 97 - 110 mmol/L CRISTY Comment:Testing performed by : [address] [address] CO2 24 22 - 32 mmol/L CRISTY Comment:Testing performed by : [address] [address] Anion gap 13 2 - 15 mmol/L CRISTY Comment:Testing performed by : [address] [address] BUN 12 6 - 25 mg/dL CRISTY Comment:Testing performed by : [address] [address] Creatinine 1.00 0.80 - 1.30 mg/dL CRISTY Comment:Testing performed by : [address] [address] Glucose 144 70 - 199 mg/dL CRISTY Comment: Interpretive [...] was last revised 2022. Testing performed by: [address] [address] Calcium 9.7 8.5 - 10.3 mg/dL CRISTY Comment:Testing performed by : [address] [address] Bilirubin, total 0.3 0.1 - 1.2 mg/dL CRISTY Comment:Testing performed by : [address] [address] Protein, pl 7.4 6.5 - 8.5 g/dL CRISTY Comment:Testing performed by : [address] [address] Albumin 4.4 3.5 - 5.0 g/dL CRISTY Comment:Testing performed by : [address] [address] Alk phos 69 40 - 130 Units/L CRISTY Comment:Testing performed by : [address] [address] ALT <5(L) 7 - 55 Units/L CRISTY Comment:Testing performed by : [address] [address] AST 20 10 - 50 Units/L CRISTY Comment:Testing performed by : [address] [address] Blood 03/30/2024 11:0 9 AM CDT 03/30/2024 1:29 PM CDT us Clare Kasper MD LAB BLOOD ORDERAB LES Final Result [facility] [address] [facility] [place] [address] documented in this encounter Visit Diagnoses Diagnosis Hematuria, unspecified type documented in this encounter Care Teams Histopath Tech Relationship Specialty Start Date End Date Clare Kasper MD PCP - General Family Medicine 07/27/22 documented as of this encounter
--- OUTSIDE RECORDS SUMMARY | 2024-11-04 22:14 | XMS_ITS | Encounter Summary ---
Author Organization [facility] Healthcare Address [address] [place] [address] Care Team Providers Care Calibration Specialist Name Role Phone Clare Kasper MD Primary Care Pro vider Encounter Details Date Type Department Care Team ([facility] Contact Info) Description 12/11/2023 Telephone [facility] [place] [address] [place] [phone] Bridgette Moss PA [address] [place] [address] Social History Tobacco Use Types Packs/Day Years [...] on file Legal Sex Male 2:37 PM NEUROSURGEON Gender Identity Not on file Sexual Orientation Not on file documented as of this encounter Miscellaneous Notes * Telephone Encounter - Noemi Duron LPN - 12/11/2023 8:39 AM NEUROSURGEON LVM for pt to call office back to discuss results. OSURGEON * Telephone Encounter - Noemi Durno LPN - 12/11/2023 8:39 AM NEUROSURGEON ----- Message from KI Marshall sent at 12/10/2023 7:51 PM NEUROSURGEON ----- On doxy , continue . OSURGEON documented in this encounter Plan of Treatment [...] on filedocumented in this encounter Care Teams Calibration Specialist Relationship Specialty Start Date End Date Clare Kasper MD PCP - General Family Medicine 07/27/22 documented as of this encounter
--- OUTSIDE RECORDS SUMMARY | 2024-11-04 22:14 | XMS_ITS | Encounter Summary ---
Author Organization [facility] Healthcare Address [address] [place] [address] Care Team Providers Care Crm Business Analyst Name Role Phone Clare Kasper MD Primary Care Pro vider Reason for Visit * Reason Onset Date Comments Medical Records Request 12/23/2023 Encounter Details Date Type Department Care Team (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 Patient through [employer] Date Needed: today if possible Delivery Method: [employer] Does message need to be routed? Yes-Action Needed RECOVERY OFFICER documented in this encounter Plan of Treatment [...] on filedocumented in this encounter Care Teams Crm Business Analyst Relationship Specialty Start Date End Date Clare Kasper MD PCP - General Family Medicine 07/27/22 documented as of this encounter
--- OUTSIDE RECORDS SUMMARY | 2024-11-04 22:14 | XMS_ITS | Encounter Summary ---
Author Organization [facility] Healthcare Address [address] [place] [address] Care Team Providers Care Systems Technologist Name Role Phone Clare Kasper MD Primary Care Pro vider Reason for Visit * Reason Onset Date Comments Medical Question/Miscellaneous 11/02/2023 Encounter Details Date Type Department Care Team ([facility] Contact Info) Description 11/02/2023 Telephone [facility] Medical Group Primary Care at [address] [phone] Clare Kasper MD [address] [place] [address] Medical Question/Miscellaneous Social History Tobacco Use Types Packs/Day Years [...] on file 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 Nothing further at this time ATIONS MANAGER * Telephone Encounter - Clare Kasper MD - 11/03/2023 9:26 AM CST Antibiotics Sent to pharmacy. [facility] ATIONS MANAGER * Telephone Encounter - Joseline Beauchamp MA - 11/02/2023 1:13 PM CST Call Back Caller???s Concern: Patient called for the status of message. He was told it is pending review fromthe Doctor. Does message need to be routed? No ATIONS MANAGER * Telephone Encounter - Magdalena Luevano - 11/02/2023 11:13 AM CST Images from the original note were not included. Medical Question/Miscellaneous Caller???s Concern: Patient states he was seen on 10/25/23, he mentioned some symptoms he had and was told if they don't improve to call back and something can be called in. He said he still has an itchy throat, congestion, cough and sneezing. He said he does have green mucus now also.Please call patient to advise. Pharmacy is [facility] store in chart. Please see screen shot from visit Does message need to be routed? Yes-Action Needed ATIONS MANAGER documented in this encounter Plan of [...] on filedocumented in this encounter Care Teams Systems Technologist Relationship Specialty Start Date End Date Clare Kasper MD PCP - General Family Medicine 07/27/22 documented as of this encounter
--- OUTSIDE RECORDS SUMMARY | 2024-11-04 22:14 | XMS_ITS | Encounter Summary ---
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 GONORRHOEAE/C. TRACHOMATIS AMPLIFICATION Routine 03/27/2024 5:41 PM CDT Routine screening for STI (sexually transmitted infection) TRICHOMONAS VAGINALIS PCR Routine 03/27/2024 5:41 PM CDT Routine screening for STI (sexually transmitted infection) DIFFERENTIAL AUTO Routine 03/27/2024 5:4 1 PM CDT Leukocytosis, unspecified type HIV 1/2 ANTIBODY PLUS P24 ANTIGEN Routine 03/27/2024 5:41 PM CDT Routine screening for STI (sexually transmitted infection) URINALYSIS AND REFLEX TO MICROSCOPIC AND CULTURE Routine 03/27/2024 5:41 PM CDT Urinary frequency CBC WITH AUTO DIFFERENTIAL Routine 03/27/2024 5:41 PM CDT Leukocytosis, unspecified type HEPATITIS PANEL, ACUTE Routine 5:41 PM CDT Routine screening for STI (sexually transmitted infection) RPR Routine 03/27/2024 5:41 PM CDT Routine screening for STI (sexually transmitted infection) URINALYSIS, MICROSCOPIC ONLY Routine 03/27/2024 5:41 PM CDT Urinary frequency documented in this encounter Results * (ABNORMAL) Urinalysis, microscopic only (03/27/2024 5:41 PM CDT) WBC, ur 0-5 0 - 5 /HPF Comment:Testing performed by : [address] [address] RBC, ur 3-5(A) 0 - 2 /HPF CRISTY GLOVER Comment:Testing performed by : [address] [address] Culture Reflex Comment Reflex conditions for urine culture (WBC >10) not met. CRISTY GLOVER Comment:Testing performed by : [address] [address] Urine, clean voided 03/27/2024 5:41 PM CDT 03/27/2024 6:54 PM CDT us Clare Kasper MD LAB URINE ORDERAB LES Final Result CRISTY GLOVER [address] [facility] [place] [address] * Differential, auto (03/27/2024 5:41 PM CDT) Neutrophil abs 3.5 1.5 - 6.5 K/cumm Comment:Testing performed by : [address] [address] Imm gran abs 0.0 0.0 - 0.1 K/cumm [facility] Comment:Testing performed by : [address] [address] Lymphocyte abs 3.0 0.8 - 3.3 K/cumm [facility] Comment:Testing performed by : [address] [address] Monocyte abs 0.4 0.2 - 0.8 K/cumm [facility] Comment:Testing performed by : [address] [address] Eosinophil abs 0.3 0.0 - 0.5 K/cumm [facility] Comment:Testing performed by : [address] [address] Basophil abs 0.1 0.0 - 0.1 K/cumm [facility] Comment:Testing performed by : [address] [address] Neutrophil pct 47.6 % [facility] Comment: Interpretive Data Percent cell count reference ranges are not reported, since discordance with absolute values may lead to misinterpretation of CBC data. Current Interpretive Data was last revised on 2018. Testing performed by: [address] [address] Imm gran pct 0.1 % [facility] Comment: Interpretive Data Percent cell count reference ranges are not reported, since discordance with absolute values may lead to misinterpretation of CBC data. Current Interpretive Data was last revised on 2018. Testing performed by: [address] [address] Lymphocyte pct 41.2 % CERNER Comment: Interpretive Data Percent cell count reference ranges are not reported, since discordance with absolute values may lead to misinterpretation of CBC data. Current Interpretive Data was last revised on 2018. Testing performed by: [address] [place]., [address] Monocyte pct 6.0 % CRISTY Comment: Interpretive Data Percent cell count reference ranges are not reported, since discordance with absolute values may lead to misinterpretation of CBC data. Current Interpretive Data was last revised on 2018. Testing performed by: [address] [address] Eosinophil pct 4.1 % CRISTY Comment: Interpretive Data Percent cell count reference ranges are not reported, since discordance with absolute values may lead to misinterpretation of CBC data. Current Interpretive Data was last revised on 2018. Testing performed by: [address] [address] Basophil pct 1.0 % CRISTY Comment: Interpretive Data Percent cell count reference ranges are not reported, since discordance with absolute values may lead to misinterpretation of CBC data. Current Interpretive Data was last revised on 2018. Testing performed by: [address] [address] Blood 03/27/2024 5:41 PM CDT 03/27/2024 6:00 PM CDT us Clare Kasper MD LAB BLOOD ORDERAB LES Final Result CRISTY [address] [facility] Department of Laboratories [place], [place] [id number] * (ABNORMAL) Urinalysis reflex to microscopic and culture Urine, clean voided (03/27/2024 5:41 PM CDT) Color, ur Yellow Yellow Comment:Testing performed by : [address] [address] Clarity, ur Clear Clear CRISTY GLOVER Comment:Testing performed by : [address] [address] Specific gravity, ur 1.010 1.003 - 1.030 CRISTY GLOVER Comment:Testing performed by : [address] [address] pH, urine 5.5 CRISTY Comment: Interpretive Data ? Urine pH is affected by diet, medications, systemic acid-base disturbances, and renal tubular function. ??pH may affect urinary stone formation. ??For example, urine pH below 6.0 may help reduce the tendency for calcium phosphate stones and pH greater than 6.0 may reduce the tendency for uric acid stone formation. Source: [facility] Current Interpretive Data was last revised on 2017 Testing performed by: [address] [address] Protein, ur ql Negative Negative CRISTY Comment:Testing performed by : [address], [place]., [address] Glucose, ur ql Negative Negative CRISTY Comment:Testing performed by : [address], [place]., [address] Ketones, ur Negative Negative CRISTY Comment:Testing performed by : [address], [place]., [address] Bilirubin, ur Negative Negative CRISTY Comment:Testing performed by : [address], [place]., [address] Blood, ur 1+(A) Negative CRISTY Comment:Testing performed by : [address], [place]., [address] Urobilinogen, ur <2.0 <2.0 mg/dL CRISTY Comment:Testing performed by : [address], [place]., [address] Nitrite, ur Negative Negative CRISTY Comment:Testing performed by : [address] [address] Leukocyte esterase, ur Negative Negative CRISTY Comment:Testing performed by : [address], [place]., [address] UA reflex comment Reflex to microscopic UA will be performed. CRISTY Comment:Testing performed by : [address] [address] Urine, clean voided 03/27/2024 5:41 PM CDT 03/27/2024 6:54 PM CDT Clare Kasper MD LAB MICROBIOLOGY - GENERAL ORDERABLES Final Result CRISTY [address] [facility] [place] [address] * (ABNORMAL) CBC with auto differential (03/27/2024 5:41 PM CDT) WBC 7.3 3.8 - 9.9 K/cumm Comment:Testing performed by : [address] [address] Hgb 13.6 13.0 - 17.5 g/dL CRISTY Comment:Testing performed by : [address] [address] Hct 38.7(L) 38.9 - 50.3 % CRISTY Comment:Testing performed by : [address] [address] Plt 191 150 - 400 K/cumm CRISTY Comment:Testing performed by : [address] [address] MPV 9.2 9.1 - 12.3 fL CRISTY Comment:Testing performed by : [address] [address] RBC 4.24(L) 4.30 - 5.80 M/cumm CRISTY Comment:Testing performed by : [address] [address] MCV 91.3 81.3 - 96.4 fL CRISTY Comment:Testing performed by : [address] [address] MCH 32.1 27.1 - 33.3 pg CRISTY Comment:Testing performed by : [address] [address] MCHC 35.1 32.3 - 35.7 g/dL CRISTY Comment:Testing performed by : [address] [address] RDW CV 12.1 11.1 - 14.9 % CRISTY Comment:Testing performed by : [address] [address] RDW SD 40.1 35.7 - 48.1 fL CRISTY GLOVER Comment:Testing performed by : [facility], [address] [place] [address]., [address] NRBC abs 0.00 0.00 - 0.01 K/cumm CRISTY GLOVER Comment:Testing performed by : [facility], [address] [place] [address]., [address] Blood 03/27/2024 5:41 PM CDT 03/27/2024 6:00 PM CDT Clare Kasper MD LAB BLOOD ORDERAB LES Final Result Performing Organization Address [facility] de Phone Number CRISTY [address] [place] [address] * HIV 1/2 Antibody plus p24 Antigen Blood (03/27/2024 5:41 PM CDT) HIV 1/2 ab + p24 ag Nonreactive Nonreactive Comment:Nonreactive for HIV- 1 antigen and HIV-1/HIV-2 antibodies. No laboratory evidence of HIV infection. If acute HIV infection is suspected, consider testing for HIV-1 RNA. Current interpretive data was last revised on 22. Blood 03/27/2024 5:41 PM CDT 03/27/2024 8:25 PM CDT Clare Kasper MD LAB MICROBIOLOGY - GENERAL ORDERABLES Final Result Performing Organization Address [facility] Co de Phone Number [place] [phone] [facility] [place] [address] * Hepatitis panel, acute Blood (03/27/2024 5:41 PM CDT) Hep A IgM Nonreactive Nonreactive Comment: Interpretive Data: If Hep A IgM Ab is reported as Equivocal, a new sample should be drawn in two weeks for testing. Current interpretive data was last revised on 20. Hep B core IgM Nonreactive Nonreactive CRISTY GLOVER Comment: Interpretive Data If HepB Core IgM [...] MICROBIOLOGY - GENERAL ORDERABLES Final Result CRISTY [address] [facility] [place] [address] * N. gonorrhoeae/C. trachomatis Amplification Urine (03/27/2024 5:41 PM CDT) Pathologist [facility] C. trachomatis Not Detected [facility] Comment:Testing performed by : [facility], [address] [facility] [place]., [address] N. gonorrhoeae Not Detected CRISTY Comment: Interpretive Data This assay detects Chlamydia trachomatis and Neisseria gonorrhoeae by nucleic acid amplification testing (NAAT). This assay has been cleared by the [place] Food and Drug administration. The performance characteristics of this test have been verified by the [facility] Molecular Infectious Disease laboratory. The performance characteristics of this test have not been evaluated in individuals less than 14 years of age. Current Interpretive Data was last revised on 2023. Testing performed by: [facility], [address] [facility] [place]., [address] Urine (None) 03/27/2024 5:41 PM CDT 03/27/2024 5:41 PM CDT Result [facility] Clare Kasper MD LAB MICROBIOLOGY - GENERAL ORDERABLES Final Result Performing Organization Address [facility] de Phone Number CRISTY [address] [address] [facility] * RPR Blood (03/27/2024 5:41 PM CDT) Pathologist [facility] RPR Nonreactive Nonreactive Comment:Testing performed by : [facility], [address] [place] [address]., [address] Blood 03/27/2024 5:41 PM CDT 03/27/2024 9:05 PM CDT Clare Kasper MD LAB MICROBIOLOGY - GENERAL ORDERABLES Final Result Performing Organization Address [facility] de Phone Number [id number] [place] [address] * Trichomonas vaginalis PCR Urine (03/27/2024 5:41 PM CDT) Pathologist [facility] Trichomonas DNA Not Detected [facility] Comment: Interpretive Data This assay detects Trichomonas vaginalis by nucleic acid amplification testing (NAAT). This assay has been cleared by the [place] Food and Drug administration. The performance characteristics of this test have been verified by the [facility] Molecular Infectious Disease laboratory. The performance of this test has not been evaluated in individuals less than 18 years of age. ?? Current Interpretive Data was last revised on 2023. Testing performed by: [facility], [address] [place] [address]., [address] Urine 03/27/2024 5:41 PM CDT 03/27/2024 5:41 PM CDT Clare Kasper MD LAB MICROBIOLOGY - GENERAL ORDERABLES Final Result Performing Organization Address [facility]/State/ZIP Co de Phone Number CRISTY GLOVER [address] [facility] [place] [address] [facility] documented in this encounter Visit Diagnoses Diagnosis Routine screening for STI (sexually transmitted infection) Screening examination for venereal disease Leukocytosis, unspecified type Urinary frequency documented in this encounter Care Teams Lithographic Plate Maker Apprentice Relationship Specialty Start Date End Date Clare Kasper MD PCP - General Family Medicine 07/27/22 documented as of this encounter
--- OUTSIDE RECORDS SUMMARY | 2024-11-04 22:14 | XMS_ITS | Encounter Summary ---
Author Organization [facility] Healthcare Address [address] [place] [address] Care Team Providers Care Security Shift Manager Name Role Phone Clare Kasper MD Primary Care Pro vider Reason for Referral * Cardiology (Routine) - Closed Specialty Diagnoses / Procedures Referred By Litzy mccracken Referred To Contact Diagnoses Palpitations Procedures ECG 12 lead Clare Kasper MD [address] [place] [address] Phone: tel: fax: [address] [phone] Referral ID Status Reason Start Date Expiration Date Visits Re quested Visits Authorized [id number] Closed 10/25/2023 11/23/2024 1 1 NEERING PROFESSOR Reason for Visit * Cardiology (Routine) - Closed Specialty Diagnoses / Procedures Referred By Litzy [email or web address] Referred To Contact Diagnoses Palpitations Procedures ECG 12 lead Clare Kasper MD [address] [place] [address] Phone: tel: fax: [address] [phone] Referral ID Status Reason Start Date Expiration Date Visits Re quested Visits Authorized [id number] Closed 10/25/2023 11/23/2024 1 1 Encounter Details Date Type Department Care Team (Latest Contact Info) Description 10/25/2023 3:41 PM ENGINEERING PROFESSOR - 10/25/2023 11:59 PM ENGINEERING PROFESSOR Hospital Encounter 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 Gender Identity Not on file Sexual Orientation [...] weeks at a time 30 g 09/30/2022 naltrexone (DEPADE) 50 mg tabletIndications:A lcohol abuse Take 1 tablet (50 mg total) by mouth daily 90 tablet 10/25/2023 4 amLODIPine (NORVASC) 10 mg tabletIndications:P rimary hypertension Take 1 tablet (10 mg total) by mouth daily 90 tablet 1 10/25/2023 4 rosuvastatin (CRESTOR) 5 mg tabletIndications:H yperlipidemia, [...] Procedure Name Priority Date/Time Associated Diagnosis Comments ECG 12-LEAD Routine 10/25/2023 3:52 PM ENGINEERING PROFESSOR Palpitations documented in this encounter Results * ECG 12 lead (10/25/2023 3:52 PM ENGINEERING PROFESSOR) Ventricular Rate EKG/Min 69 BPM [facility] Atrial Rate 69 BPM [facility] AL-Interval (MSEC) 114 ms [facility] QRS-Interval (MSEC) 72 ms [facility] QT-Interval (MSEC) 372 ms [facility] QTc 398 ms [facility] P Sullivan 70 degrees [facility] R Sullivan -13 degrees [facility] T Sullivan 37 degrees [facility] Diagnosis Normal sinus rhythm ST-changes When compared with ECG of 12-NOV-2004 00:08, ST-changes are now Confirmed by SULTAN HALL M.D. ([id number]) on 10/25/2023 6:00:40 PM [facility] 10/25/2023 3:52 PM ENGINEERING PROFESSOR 10/25/2023 6:00 PM ENGINEERING PROFESSOR us Clare Kasper MD ECG ORDERABLES F inal Result [facility] documented in this encounter Visit Diagnoses Diagnosis Palpitations documented in this encounter Additional Health Concerns Infection Onset Date Last Indicated Resolved Time COVID: Suspected 10/25/2023 10/25/2023 10/25/2023 4:54 PM ENGINEERING PROFESSOR documented as of this encounter Care Teams Security Shift Manager Relationship Specialty Start Date End Date Clare Kasper MD PCP - General Family Medicine 07/27/22 documented as of this encounter
--- OUTSIDE RECORDS SUMMARY | 2024-11-04 22:14 | XMS_ITS | Encounter Summary ---
Author Organization [facility] Healthcare Address [address] [place] [address] Care Team Providers Care Nitriles Lab Technician Name Role Phone Clare Kasper MD Primary Care Pro vider Reason for Visit * Reason Onset Date Comments Medical Question/Miscellaneous 10/11/2024 Encounter Details Date Type Department Care Team ([facility] Contact Info) Description 10/11/2024 Telephone [facility] Medical Group Primary Care at [address] [phone] Clare Kasper MD [address] [place] [phone] Medical Question/Miscellaneous Social History Tobacco Use [...] on file 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 ER MACHINE * Telephone Encounter - Clare Kasper MD - 10/11/2024 2:45 PM CST Yes if he is concerned for dehydration/alcohol withdrawal recommend ED. ER MACHINE * Telephone Encounter - Keke Marie - 10/11/2024 2:18 PM CST Medical Question/Miscellaneous Caller???s Concern: Patient was at [facility] last night. States he wasn't given any fluids and he thinks he is dehydrated. States pcp is familiar with his history with alcohol. He would like to knowif he should go to [place] [facility] or what he should do? Please advise Does message need to be routed? Yes-Action Needed ER MACHINE documented in this encounter Plan of Treatment [...] on filedocumented in this encounter Care Teams Nitriles Lab Technician Relationship Specialty Start Date End Date Clare Kasper MD PCP - General Family Medicine 07/27/22 documented as of this encounter
--- OUTSIDE RECORDS SUMMARY | 2024-11-04 22:14 | XMS_ITS | Encounter Summary ---
Author Organization [facility] Healthcare Address [address] [place] [address] Care Team Providers Care [employer] Driver Name Role Phone Clare Kasper MD Primary Care Pro vider Reason for Visit * Reason Comments Follow-up Urinary Frequency X1 week Shoulder Pain R shoulder pain Encounter Details Date Type Department Care Team (Latest Contact Info) Description 03/27/2024 4:30 PM CDT Office Visit [facility] Primary Care at [address] [phone] Clare Kasper MD [address] [place] [id number] Urinary frequency (Primary Dx); Hematuria, unspecified type; Right shoulder pain, unspecified chronicity; Leukocytosis, unspecified type; Routine screening for STI (sexually transmitted infection); Primary hypertension; Hyperlipidemia, unspecified hyperlipidemia type; Smoking; Alcohol abuse; Gastroesophageal reflux disease, unspecified whether esophagitis present; Primary insomnia Social History Tobacco Use Types Packs/Day Years [...] on file 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 Gender Identity Not on file Sexual Orientation Not on file documented as of this encounter Last Filed Vital Signs Vital Sign Reading Time Taken Comments Blood Pressure 140/80 03/27/2024 4:36 PM CDT Pulse 82 03/27/2024 4:36 PM CDT Temperature 36.8 ??C (98.3 ??F) 03/27/2024 4:36 PM CD T Respiratory Rate 18 03/27/2024 4:36 PM CDT Oxygen Saturation 99% 03/27/2024 4:36 PM CDT Inhaled Oxygen Concentration - - Weight 54.5 kg (120 lb 3.2 oz) 03/27/2024 4:36 P M CDT Height 170.2 cm (5' 7 ) 03/27/2024 4:36 PM CDT Body Mass Index 18.83 03/27/2024 4:36 PM CDT documented in this encounter Patient Instructions * Patient Instructions* Clare Kasper MD - 03/27/2024 4:30 PM CDT Images from the original note were not included. 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 Exercises for external shoulder rotation work the muscles in the back of your shoulder and upper back. Contact your healthcare provider if: You have sharp or worsening pain during exercise or at rest. You have questions or concerns about your shoulder exercises. Before you exercise: Warm up and stretch before you exercise. Walk or ride a stationary bike for 5 to 10 minutes to help you warm up. Stretching helps increase range of motion. It may also decrease muscle soreness and help prevent another injury. Your healthcare provider will tell you which of the following stretches to do: Crossover arm stretch: Relax your shoulders. Hold your upper arm with the opposite hand. Pull your arm across your chest until you feel a stretch. Hold the stretch for 30 seconds. Return to the starting position. Shoulder flexion stretch: Stand facing a wall. Slowly walk your fingers up the wall until you feel a stretch. Hold the stretch for 30 seconds. Return to the starting position. Sleeper stretch: Lie on your injured side on a firm, flat surface. Bend the elbow of your injured arm 90?? with your hand facing up. Use your arm that is not injured to slowly push your injured arm down. Stop when you feel a stretch at the back of your injured shoulder. Hold the stretch for 30 seconds. Slowly return to the starting position. Shoulder internal rotation: Sit in a chair. Place a rolled up towel between your elbow and your side. Bend your elbow to 90??. Gently squeeze the towel with your elbow to prevent it from falling out.Hold the weight with your thumb pointing up. Slowly move the weight across your chest. Stop when your hand reaches your opposite arm. Hold this position for as many seconds as directed. Slowly return to the starting position. Shoulder external rotation: Lie on your side with your injured shoulder facing up. Bend your elbow 90??. Place a rolled up towel between your elbow and your side. Hold a weight in your hand. Gently squeeze the towel with your elbow to prevent it from falling out. Slowly rotate your arm outward, butkeep your elbow bent. Stop when you feel a stretch. Hold this position for 30 seconds or as directed. Slowly return to the starting position. How to exercise with an exercise band: Shoulder internal rotation: Tie one end of the exercise band to a heavy, secure object. Sit in a chair. Place a rolled up towel between your elbow and your side. Bend your elbow to 90??. Gently squeeze the towel with your elbow to prevent it from falling out. Slowly pull the band across your chest.Stop when your hand reaches your opposite arm. Hold this position for as many seconds as directed. Slowly return to the starting position. Shoulder external rotation: Hold one end of the exercise band on the side that is not injured. Place a rolled up towel between your elbow and your side. Bend your elbow 90??. Squeeze the towel with your elbow. Grab the end of the band and slowly turn your arm outward, but keep your elbow bent. Stopwhen you feel a stretch. Hold this position for 30 seconds or as directed. Slowly return to the starting position. Shoulder abduction: Stand and hold a weight in your hand with your palm facing your body. Slowly raise your arm to the side with your thumb pointing up. Then raise your arm over your head as far as you can without pain. Hold this position for as long as directed. Do not raise your arm over your head unless your healthcare provider says it is okay. Shoulder adduction: Lie on your back on a firm surface. Extend your arm out to a T. Bend your elbow so your forearm in the air. Hold a weight in your hand. Slowly raise your arm toward the ceiling and straighten your elbow. Hold this position for as long as directed. Slowly return to the startingposition. How to exercise with an exercise band: Shoulder abduction: Wrap the exercise band around a heavy, stable object near your foot. Grab the band with the hand of your injured shoulder. Keep your arm straight. Slowly raise your arm to the side with your thumb pointing up. Then, slowly pull the band over your head as far as you can without pain. Do not raise your arm over your head unless your healthcare provider says it is okay. Do not let your shoulder shrug. Hold this position for as long as directed. Slowly return to the starting position. Shoulder adduction: Wrap the exercise band around a heavy, stable object. Stand and face away from where the band is anchored. Hold each end of the band in both hands with your elbows bent. Your elbows should not be behind your body. Keep your arms parallel to the floor and slowly straighten your elbows. Hold this position for as long as directed. Slowly return to the starting position. Shoulder extension: Lie on a hard table on your stomach. Let your arms hang off the side. Hold a weight in both hands with your palms facing toward your body. Keep your arms straight and slowly raiseyour arms parallel to the floor in a Y shape. Stop when your arms are level with your body. Hold for as long as directed. Slowly return to the starting position. Shoulder flexion: Stand and hold a weight in the hand of your injured shoulder. Keep your arm straight and slowly raise your arm over your head as far as you can without pain. Do not raise your arm over your head unless your healthcare provider says it is okay. Do not let your shoulder shrug. Hold this position for as many seconds as directed. Slowly return to the starting position. How to exercise with an exercise band: Shoulder extension: Wrap the exercise band around a heavy, stable object. The band should be level with your chest. Stand and hold each end of the band in both hands. Step back and extend your arms straight. Squeeze your shoulder blades together and pull your arms back and down. Hold for as long asdirected. Slowly return to the starting position. Shoulder flexion: Wrap the exercise band around a heavy, stable object near your foot. Grab the band with the hand of your injured shoulder. Keep your arm straight. Slowly pull the band up and past your head as far as you can without pain. Do not raise your arm over your head unless your healthcareprovider says it is okay. Do not let your shoulder shrug. Hold this position for as many seconds asdirected. Slowly return to the starting position. ?? 2017 [employer] Information is for End User's use only and may not be sold, redistributed or otherwise used for commercial purposes. All illustrations and images included in CareNotes?? are the copyrighted property of [employer] or [employer]. The above information is an cartographic aide only. It is not intended as medical advice for individual conditions or treatments. Talk to your doctor, nurse or pharmacist before following any medical regimen to see if it is safe and effective for you. * Attachments The following attachments cannot be sent through Care Everywhere. 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 Assessment/Plan: Assessment/Plan Diagnoses and all orders for this visit: Urinary frequency (Primary) Comments: UA not c/w UTI & gc/trichomonas negative hematuria noted, will repeat UA Orders: - Urinalysis reflex to microscopic and culture Urine, clean voided; Future - Urinalysis reflex to microscopic and culture Urine, clean voided; Future Hematuria, unspecified type - Urinalysis reflex to microscopic and culture Urine, clean voided; Future Right shoulder pain, unspecified chronicity Comments: No weakness on exam PT handout given for shoulder and neck exercises If not improving or worsening let me know and I can refer to ortho Leukocytosis, unspecified type Comments: resolved on recheck Orders: - CBC with auto differential; Future Routine screening for STI (sexually transmitted infection) - Trichomonas vaginalis PCR Urine; Future - RPR Blood; Future - N. gonorrhoeae/C. trachomatis Amplification Urine; Future - Hepatitis panel, acute Blood; Future - HIV 1/2 Antibody plus p24 Antigen Blood; Future Primary hypertension Assessment & Plan: Blood pressure controlled continue 10mg amlodipine Hyperlipidemia, unspecified hyperlipidemia type Assessment & Plan: Continue statin Smoking Assessment & Plan: Encourage cessation Alcohol abuse Assessment & Plan: continue cessation Gastroesophageal reflux disease, unspecified whether esophagitis present Assessment & Plan: Stable off medications Primary insomnia Assessment & Plan: Trazodone as needed Return in about 7 months (around 10/26/2024) for Annual physical. or sooner as needed if symptoms not improving or worsen. Strict return/ED precautions discussed. Subjective: Yariel Hill is a 53 y.o. male here for Chief Complaint Patient presents with Follow-up Urinary Frequency X1 week Shoulder Pain R shoulder pain HPI Hypertension: on amlodipine 10mg Hyperlipidemia: on rosuvastatin 5mg Smoking 8-10 cigarettes/day. Prescribed wellbutrin at last visit, but didn't start. Has tried gum and patches Alcohol abuse: didn't start naltrexone, last drink 3m ago GERD: resolved with course of prilosec, stable after finishing 6-8weeks ago Insomnia: on trazodone as needed Review of Systems Genitourinary: Positive for frequency. Musculoskeletal: Positive for arthralgias. Objective: Vital signs were reviewed. Vitals: 03/27/24 1636 BP: 140/80 BP Location: Left arm Patient Position: Sitting Pulse: 82 Resp: 18 Temp: 36.8 ??C (98.3 ??F) TempSrc: Temporal SpO2: 99% Weight: 54.5 kg (120 lb 3.2 oz) Height: 170.2 cm (5' 7 ) Physical Exam Gen: NAD, comfortable, appears as stated age Eyes: no conjunctival injection, EOMI ENMT: external ears symmetric CV: Regular rate Pulm: no increased work of breathing Skin: no rashes or nodules, warm and dry MSK/Neuro: symmetric limb movement, Shoulder: no visible or palpable asymmetry, normal active and passive range of motion, normal strength on abduction, flexion, internal/external rotation and surgeon's assistant, sensation intact throughout, negative neer's/zavala, apprehension, liftoff and empty can Psych: alert and oriented to person/place/time, appropriate judgment and insight Clare Kasper MD documented in this encounter Miscellaneous Notes * Assessment & Plan Note - Clare Kasper MD - 03/27/2024 5:05 PM CDTAssociated Problem(s): Primary insomnia Trazodone as needed * Assessment & Plan Note - Clare Kasper MD - 03/27/2024 5:05 PM CDTAssociated Problem(s): GERD (gastroesophageal reflux disease) Stable off medications * Assessment & Plan Note - Clare Kasper MD - 03/27/2024 5:04 PM CDTAssociated Problem(s): Alcohol use disorder continue cessation * Assessment & Plan Note - Clare Kasper MD - 03/27/2024 5:04 PM CDTAssociated Problem(s): Smoking Encourage cessation * Assessment & Plan Note - Clare Kasper MD - 03/27/2024 5:04 PM CDTAssociated Problem(s): Hyperlipidemia Continue statin * Assessment & Plan Note - Clare Kasper MD - 03/27/2024 5:04 PM CDTAssociated Problem(s): Hypertension Blood pressure controlled continue 10mg amlodipine * Addendum Note - Mia Snyder MA - 03/27/2024 4:30 PM CDTAddended by: MIA SNYDER on: 03/30/2024 02:03 PM Modules accepted: Orders documented in this encounter Plan of Treatment [...] telling anyone). documented as of this encounter Results * Creatine kinase (CK), total (03/30/2024 11:10 AM CDT) Pathologist [facility] CK 167 40 - 300 Units/L Comment:Testing performed by : [facility], [address] [place] [address]., [id number] Blood 03/30/2024 11:1 0 AM CDT 03/30/2024 2:08 PM CDT Clare Kasper MD LAB BLOOD ORDERAB LES Final Result Performing Organization Address [facility] Co de Phone Number [place] [id number] [facility] [place] [address] * HIV 1/2 Antibody plus p24 Antigen Blood (03/27/2024 5:41 PM CDT) [facility] HIV 1/2 ab + p24 ag Nonreactive Nonreactive Comment:Nonreactive for HIV- 1 antigen and HIV-1/HIV-2 antibodies. No laboratory evidence of HIV infection. If acute HIV infection is suspected, consider testing for HIV-1 RNA. Current interpretive data was last revised on 22. Blood 03/27/2024 5:41 PM CDT 03/27/2024 8:25 PM CDT Clare Kasper MD LAB MICROBIOLOGY - GENERAL ORDERABLES Final Result Performing Organization Address [facility] Co de Phone Number [facility] [address] [facility] [place] [address] * Hepatitis panel, acute Blood (03/27/2024 5:41 PM CDT) Hep A IgM Nonreactive Nonreactive Comment: Interpretive Data: If Hep A IgM Ab is reported as Equivocal, a new sample should be drawn in two weeks for testing. Current interpretive data was last revised on 20. Hep B core IgM Nonreactive Nonreactive [facility] Comment: Interpretive Data If HepB Core IgM [...] MICROBIOLOGY - GENERAL ORDERABLES Final Result [facility] [address] [facility] Department of Laboratories [place], [place] [id number] * N. gonorrhoeae/C. trachomatis Amplification Urine (03/27/2024 5:41 PM CDT) C. trachomatis Not Detected [facility] Comment:Testing performed by : [facility], [address], [place]., [address] N. gonorrhoeae Not Detected [facility] Comment: Interpretive Data This assay detects Chlamydia trachomatis and Neisseria gonorrhoeae by nucleic acid amplification testing (NAAT). This assay has been cleared by the [place] Food and Drug administration. The performance characteristics of this test have been verified by the [facility] Molecular Infectious Disease laboratory. The performance characteristics of this test have not been evaluated in individuals less than 14 years of age. Current Interpretive Data was last revised on 2023. Testing performed by: [facility], [address] [place] [address]., [id number] Urine (None) 03/27/2024 5:41 PM CDT 03/27/2024 5:41 PM CDT Clare Kasper MD LAB MICROBIOLOGY - GENERAL ORDERABLES Final Result Performing Organization Address [facility] Co de Phone Number [address] [place] [address] BJ * RPR Blood (03/27/2024 5:41 PM CDT) RPR Nonreactive Nonreactive Comment:Testing performed by : [facility], [address] [place] [address]., [id number] Blood 03/27/2024 5:41 PM CDT 03/27/2024 9:05 PM CDT Clare Kasper MD LAB MICROBIOLOGY - GENERAL ORDERABLES Final Result Performing Organization Address City/[facility] Co de Phone Number [address] [address] * Trichomonas vaginalis PCR Urine (03/27/2024 5:41 PM CDT) Trichomonas DNA Not Detected [facility] Comment: Interpretive Data This assay detects Trichomonas vaginalis by nucleic acid amplification testing (NAAT). This assay has been cleared by the [place] Food and Drug administration. The performance characteristics of this test have been verified by the [facility] Molecular Infectious Disease laboratory. The performance of this test has not been evaluated in individuals less than 18 years of age. ?? Current Interpretive Data was last revised on 2023. Testing performed by: [facility], [address], [place]., [address] Urine 03/27/2024 5:41 PM CDT 03/27/2024 5:41 PM CDT us Clare Kasper MD LAB MICROBIOLOGY - GENERAL ORDERABLES Final Result [facility] [address] [facility] Department [place] [address] [facility] * (ABNORMAL) CBC with auto differential (03/27/2024 5:41 PM CDT) WBC 7.3 3.8 - 9.9 K/cumm Comment:Testing performed by : [address] [address] Hgb 13.6 13.0 - 17.5 g/dL [facility] Comment:Testing performed by : [address] [address] Hct 38.7(L) 38.9 - 50.3 % [facility] Comment:Testing performed by : [address] [address] Plt 191 150 - 400 K/cumm [facility] Comment:Testing performed by : [address] [address] MPV 9.2 9.1 - 12.3 fL [facility] Comment:Testing performed by : [address] [address] RBC 4.24(L) 4.30 - 5.80 M/cumm [facility] Comment:Testing performed by : [address] [address] MCV 91.3 81.3 - 96.4 fL [facility] Comment:Testing performed by : [address] [address] MCH 32.1 27.1 - 33.3 pg [facility] Comment:Testing performed by : [address] [address] MCHC 35.1 32.3 - 35.7 g/dL [facility] Comment:Testing performed by : [address] [address] RDW CV 12.1 11.1 - 14.9 % [facility] Comment:Testing performed by : [address] [address] RDW SD 40.1 35.7 - 48.1 fL [facility] Comment:Testing performed by : [address] [address] NRBC abs 0.00 0.00 - 0.01 K/cumm [facility] Comment:Testing performed by : [address] [address] Blood 03/27/2024 5:41 PM CDT 03/27/2024 6:00 PM CDT us Clare Kasper MD LAB BLOOD ORDERAB LES Final Result [facility] Department [place] [address] * (ABNORMAL) Urinalysis reflex to microscopic and culture Urine, clean voided (03/27/2024 5:41 PM CDT) Color, ur Yellow Yellow Comment:Testing performed by : [address] [address] Clarity, ur Clear Clear [facility] Comment:Testing performed by : [address] [address] Specific gravity, ur 1.010 1.003 - 1.030 [facility] Comment:Testing performed by : [address] [address] pH, urine 5.5 [facility] Comment: Interpretive Data ? Urine pH is affected by diet, medications, systemic acid-base disturbances, and renal tubular function. ??pH may affect urinary stone formation. ??For example, urine pH below 6.0 may help reduce the tendency for calcium phosphate stones and pH greater than 6.0 may reduce the tendency for uric acid stone formation. Source: [facility] Current Interpretive Data was last revised on 2017 Testing performed by: [facility], [address] [place] [address], [place]., [address] Protein, ur ql Negative Negative [facility] Comment:Testing performed by : [facility], [address] [place] [address], [place]., [address] Glucose, ur ql Negative Negative [facility] Comment:Testing performed by : [facility], [address] [place] [address], [place]., [address] Ketones, ur Negative Negative [facility] Comment:Testing performed by : [facility], [address] [place] [address], [place]., [address] Bilirubin, ur Negative Negative [facility] Comment:Testing performed by : [address], [place]., [address] Blood, ur 1+(A) Negative [facility] Comment:Testing performed by : [address], [place]., [address] Urobilinogen, ur <2.0 <2.0 mg/dL [facility] Comment:Testing performed by : [address], [place]., [address] Nitrite, ur Negative Negative [facility] Comment:Testing performed by : [address], [place]., [address] Leukocyte esterase, ur Negative Negative [facility] Comment:Testing performed by : [address], [place]., [address] UA reflex comment Reflex to microscopic UA will be performed. [facility] Comment:Testing performed by : [address], [place]., [address] Urine, clean voided 03/27/2024 5:41 PM CDT 03/27/2024 6:54 PM CDT us Clare Kasper MD LAB MICROBIOLOGY - GENERAL ORDERABLES Final Result [facility] [address] [facility] Department [place] [address] documented in this encounter Visit Diagnoses Diagnosis Urinary frequency- Primary Hematuria, unspecified type Right shoulder pain, unspecified chronicity Leukocytosis, unspecified type Routine screening for STI (sexually transmitted infection) Screening examination for venereal disease Primary hypertension Unspecified essential hypertension Hyperlipidemia, unspecified hyperlipidemia type Smoking Tobacco use disorder Alcohol abuse Nondependent alcohol abuse, unspecified drinking behavior Gastroesophageal reflux disease, unspecified whether esophagitis present Primary insomnia Persistent disorder of initiating or maintaining sleep documented in this encounter Care Teams [employer] 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
--- OUTSIDE RECORDS SUMMARY | 2024-11-04 22:14 | XMS_ITS | Encounter Summary ---
Author Organization [facility] Healthcare Address [address] [place] [address] Care Team Providers Care Hospital Cook Name Role Phone Clare Kasper MD Primary Care Pro vider Encounter Details Date Type Department Care Team ([facility] Contact Info) Description 03/28/2024 E-Visit [facility] Primary Care at [address] [phone] Clare Kasper MD [address] [place] [id number] Urine in blood Social History Tobacco Use Types Packs/Day Years [...] on file Legal Sex Male 2:37 PM [employer] Gender Identity Not on file Sexual Orientation Not on file documented as of this encounter Progress Notes * Clare Kasper MD - 03/29/2024 12:20 PM CDT MyChart Message Note documented in this encounter Plan of Treatment [...] documented as of this encounter Results * (ABNORMAL) Urinalysis reflex to microscopic and culture Urine, clean voided (03/30/2024 11:10 AM CDT) Color, ur Yellow Yellow Comment:Testing performed by : [address] [address] Clarity, ur Clear Clear CRISTY Comment:Testing performed by : [address], [place]., [address] Specific gravity, ur 1.018 1.003 - 1.030 CRISTY Comment:Testing performed by : [address], [place]., [address] pH, urine 5.5 CRISTY Comment: Interpretive Data ? Urine pH is affected by diet, medications, systemic acid-base disturbances, and renal tubular function. ??pH may affect urinary stone formation. ??For example, urine pH below 6.0 may help reduce the tendency for calcium phosphate stones and pH greater than 6.0 may reduce the tendency for uric acid stone formation. Source: [facility] [employer] Current Interpretive Data was last revised on 2017 Testing performed by: [address] [address] Protein, ur ql Negative Negative CRISTY Comment:Testing performed by : [address] [address] Glucose, ur ql Negative Negative CRISTY Comment:Testing performed by : [address] [address] Ketones, ur Negative Negative CRISTY Comment:Testing performed by : [address] [address] Bilirubin, ur Negative Negative CRISTY Comment:Testing performed by : [address] [address] Blood, ur 2+(A) Negative CRISTY [place] Comment:Testing performed by : [address] [address] Urobilinogen, ur <2.0 <2.0 mg/dL CRISTY [place] Comment:Testing performed by : [address] [address] Nitrite, ur Negative Negative CRISTY Comment:Testing performed by : [address], [place]., [address] Leukocyte esterase, ur Negative Negative CRISTY Comment:Testing performed by : [address] [address] UA reflex comment Reflex to microscopic UA will be performed. CRISTY Comment:Testing performed by : [address] [address] Urine, clean voided 03/30/2024 11:10 AM CDT 03/30/2024 11:39 AM CDT us Clare Kasper MD LAB MICROBIOLOGY - GENERAL ORDERABLES Final Result [facility] [address] [facility] Department [place] [address] * (ABNORMAL) Comprehensive metabolic panel (03/30/2024 11:09 AM CDT) Sodium 139 135 - 145 mmol/L Comment:Testing performed by : [address] [address] Potassium, pl 4.5 3.3 - 4.9 mmol/L CRISTY Comment:Testing performed by : [address] [address] Chloride 102 97 - 110 mmol/L CRISTY Comment:Testing performed by : [address] [address] CO2 24 22 - 32 mmol/L CRISTY Comment:Testing performed by : [address] [address] Anion gap 13 2 - 15 mmol/L CRISTY Comment:Testing performed by : [address] [address] BUN 12 6 - 25 mg/dL CRISTY Comment:Testing performed by : [address] [address] Creatinine 1.00 0.80 - 1.30 mg/dL CRISTY Comment:Testing performed by : [address] [address] Glucose 144 70 - 199 mg/dL CRISTY [...] classification and Diagnosis of Diabetes Diabetes Care 202; 46: S19-S40. Current interpretive data was last revised 2022. Testing performed by: [address] [address] Calcium 9.7 8.5 - 10.3 mg/dL CRISTY Comment:Testing performed by : [address] [address] Bilirubin, total 0.3 0.1 - 1.2 mg/dL CRISTY Comment:Testing performed by : [address] [address] Protein, pl 7.4 6.5 - 8.5 g/dL CRISTY Comment:Testing performed by : [address] [address] Albumin 4.4 3.5 - 5.0 g/dL CRISTY Comment:Testing performed by : [address] [address] Alk phos 69 40 - 130 Units/L CRISTY Comment:Testing performed by : [address] [address] ALT <5(L) 7 - 55 Units/L CRISTY Comment:Testing performed by : [address] [address] AST 20 10 - 50 Units/L CRISTY Comment:Testing performed by : [address] [address] Blood 03/30/2024 11:0 9 AM CDT 03/30/2024 1:29 PM CDT Clare Kasper MD LAB BLOOD ORDERAB LES Final Result [facility]ST[facility] [address] [facility] [place] [address] documented in this encounter Visit Diagnoses Diagnosis Hematuria, unspecified type- Primary documented in this encounter Care Teams Hospital Cook Relationship Specialty Start Date End Date Clare Kasper MD PCP - General Family Medicine 07/27/22 documented as of this encounter
--- OUTSIDE RECORDS SUMMARY | 2024-11-04 22:15 | XMS_ITS | Encounter Summary ---
Author Organization [facility] Healthcare Address [address] [place] [address] Care Team Providers Care Experimental Plastics Fabricator Name Role Phone Teresita Painting MD Primary Care Prov ider Encounter Details Date Type Department Care Team (Late st Contact Info) Description 05/14/2020 10:00 AM CDT - 05/14/2020 10:45 AM CDT Surgery [facility] [address] [facility] [address] [place] [address] Noemi Mccoy MD [facility] [address] [place], [place] [id number] COLON BIOPSY Surgery Details Date/Time Status Location OR Service Patient Class Case Class Case Type Trauma Case? 05/14/2020 10:00 AM Posted [facility] ENDOSCOPY GI 04 Gastroenterology Outpatient Elective Panel 1 Procedure LRB Anes Op Region Wound Class Comments COLON BIOPSY N/A Monitor Anesthesia Care Colon N/A First Call PARS Surgeon Surgeon Role Service Panel Suyapa Gaston MD Fellow Gastroenterology 1 Noemi Mccoy MD Primary Gastroenterology 1 documented in this encounter Social History Tobacco Use Types Packs/Day Years Used Date Smoking Tobacco: Every Day Cigarettes Smokeless Tobacco: Never Comments:8 cigs a day Alcohol Use Standard Drinks/Week Comments Yes 0 (1 standard drink = 0.6 oz pur e alcohol) occasionally Sex and Gender Information Value Date Recorded Sex Assigned at Not on file 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 Gender Identity Not on file Sexual Orientation Not on file documented as of this encounter Last Filed Vital Signs Vital Sign Reading Time Taken Comments Blood Pressure 153/80 05/14/2020 9:41 AM CDT Pulse 100 05/14/2020 9:41 AM CDT Temperature 36.7 ??C (98.1 ??F) 05/14/2020 9:41 AM CD T Respiratory Rate 14 05/14/2020 9:41 AM CDT Oxygen Saturation 100% 05/14/2020 9:41 AM CDT Inhaled Oxygen Concentration - - Weight - - Height - - Body Mass Index - - documented in this encounter Medications at Time of Discharge cetirizine (ZyrTEC) 10 mg tablet Take 1 tablet (10 mg total) by mouth daily as needed for allergies 30 tablet 11 07/06/2019 0 polyethylene glycol (GoLYTELY) 236-22.74-6.74 -5.86 gram solutionIndication s:Bowel Evacuation,Colonos copy Drink Nulytely 1/2 jug at 6 PM on 05/13/2020 and Drink Nulytely 1/2 jug 0300 AM on 05/14/2020 4000 mL 05/01/2020 0 amLODIPine (NORVASC) 5 mg tabletIndications: Essential hypertension Take 1 tablet (5 mg total) by mouth daily 90 tablet 3 10/26/2019 1 chlordiazePOXIDE (LIBRIUM) 25 mg capsuleIndications :Alcohol Withdrawal Syndrome Take 2 capsules (50 mg total) by mouth 3 (three) times a day for 3 days 18 capsule 12/08/2019 0 cholecalciferol (Vitamin D3) 2000 unit capsule Take 1 capsule (2,000 Units total) by mouth daily 90 capsule 3 04/22/2020 0 ergocalciferol (VITAMIN D) 50,000 unit capsule Take 1 capsule (50,000 Units total) by mouth once a week 8 capsule 04/22/2020 0 fluticasone (FLONASE) 50 mcg/actuation nasal sprayIndications:S inus congestion Administer 2 sprays into each nostril daily. 16 g 5 09/29/2018 1 documented as of this encounter Discharge Disposition Disposition Code Departure Means Destination Discharge to home or self care documented in this encounter H&P Notes * Noemi Mccoy MD - 05/14/2020 10:57 AM CDT General H&P Subjective Patient is a 50 y.o. male with chief complaint of presents for screening colonoscopy to rule out colon cancer. HPI: No previous colonoscopy. Presents for first colonoscopy to screen for colon cancer. No family history of colon cancer or polyps. Past Medical History: Diagnosis Date ??? Anemia ??? Anxiety ??? Hypertension ??? Pancreatitis Past Surgical History: Procedure Laterality Date ??? CARPAL TUNNEL RELEASE Left 2007 Medications Prior to Admission Medication Sig Dispense Refill Last Dose ??? amLODIPine (NORVASC) 5 mg tablet Take 1 tablet (5 mg total) by mouth daily 90 tablet 3 05/13/2020 at Unknown time ??? chlordiazePOXIDE (LIBRIUM) 25 mg capsule Take 2 capsules (50 mg total) by mouth 3 (three) timesa day for 3 days 18 capsule 0 05/14/2020 at Unknown time ??? cholecalciferol (Vitamin D3) 2000 unit capsule Take 1 capsule (2,000 Units total) by mouth daily 90 capsule 3 Past Week at Unknown time ??? cetirizine (ZyrTEC) 10 mg tablet Take 1 tablet (10 mg total) by mouth daily as needed for allergies 30 tablet 11 More than a month at Unknown time ??? ergocalciferol (VITAMIN D) 50,000 unit capsule Take 1 capsule (50,000 Units total) by mouth once a week 8 capsule 0 Unknown at Unknown time ??? fluticasone (FLONASE) 50 mcg/actuation nasal spray Administer 2 sprays into each nostril daily.16 g 5 More than a month at Unknown time ??? polyethylene glycol (GoLYTELY) 236-22.74-6.74 -5.86 gram solution Drink Nulytely 1/2 jug at 6 PM on 05/13/2020 and Drink Nulytely 1/2 jug 0300 AM on 05/14/2020 4000 mL 0 No Known Allergies Social History Tobacco Use ??? Smoking status: Current Every Day Smoker Packs/day: 0.40 Types: Cigarettes ??? Smokeless tobacco: Never Used ??? Tobacco comment: 8 cigs a day Substance Use Topics ??? Alcohol use: Yes Comment: occasionally Family History Problem Relation Age of Onset ??? Kidney cancer Father Cancer, kidney; ??? Hypertension Mother Hypertension; Review of Systems All other systems reviewed and are negative. Objective Vitals: Arrival Vitals [05/14/20 0941] Temp 36.7 ??C (98.1 ??F) Pulse 100 Resp 14 BP 153/80 SpO2 100 % Temp src Temporal Heart Rate Source Monitor Patient Position BP Location FiO2 (%) 24hr Min/Max: Temp Min: 36.7 ??C (98.1 ??F) Max: 36.7 ??C (98.1 ??F) Pulse Min: 100 Max: 100 BP Min: 153/80 Max: 153/80 Resp Min: 14 Max: 14 SpO2 Min: 100 % Max: 100 % Most Recent : Vitals: 05/14/20 0941 BP: 153/80 Pulse: 100 Resp: 14 Temp: 36.7 ??C (98.1 ??F) SpO2: 100% No intake/output data recorded. No intake/output data recorded. Physical Exam Constitutional: Appearance: Normal appearance. Cardiovascular: Rate and Rhythm: Normal rate and regular rhythm. Pulmonary: Effort: Pulmonary effort is normal. Breath sounds: Normal breath sounds. Abdominal: General: Abdomen is flat. Bowel sounds are normal. There is no distension. Palpations: Abdomen is soft. Tenderness: There is no abdominal tenderness. Neurological: Mental Status: He is alert. Lab/Radiology/Diagnostic Review: No recent results to review Assessment Principal Problem: Healthcare maintenance Plan Colonoscopy today. documented in this encounter Procedure Notes * Noemi Mccoy MD - 05/14/2020 11:03 AM CDTAssociated Order(s): COLONOSCOPY GI ENDOSCOPY [facility] Patient Name: Yariel Hill Procedure Date: 05/14/2020 11:03 AM Date of : 1970 Admit Type: Outpatient Age: 50 Gender: Male Attending MD: Noemi Mccoy M.D. Room: [facility] ENDOSCOPY ROOM 4 Note Status: Finalized Procedure: Colonoscopy Indications: Screening for colorectal malignant neoplasm, This is the patient's first colonoscopy Referring MD: Teresita Painting M.D. Providers: Noemi Mccoy M.D. Medicines: Monitored Anesthesia Care Complications: No immediate complications. Estimated Blood Loss: Estimated blood loss was minimal. Procedure: Pre-Anesthesia Assessment: - Prior to the procedure, a History and Physical was performed, and patient medications and allergies were reviewed. The risks and benefits of the procedure and the sedation options and risks were discussed with the patient. All questions were answered and informed consent was obtained. Patient identification and proposed procedure were verified by the physician, the nurse, the municipal services manager and the remediation technician in the procedure room. Respiratory Examination: clear to auscultation. CV Examination: normal. Prophylactic Antibiotics: The patient does not require prophylactic antibiotics. Prior Anticoagulants: The patient has taken no previous anticoagulant or antiplatelet agents. After reviewing the risks and benefits, the patient was deemed in satisfactory condition to undergo the procedure. The anesthesia plan was to use monitored anesthesia care (MAC). Immediately prior to administration of medications, the patient was re-assessed for adequacy to receive sedatives. The heart rate, respiratory rate, oxygen saturations, blood pressure, adequacy of pulmonary ventilation, and response to care were monitored throughout the procedure. The physical status of the patient was re-assessed after the procedure. - Immediately prior to administration of medications, the patient was re-assessed for adequacy to receive sedatives. - The risks and benefits of the procedure and the sedation options and risks were discussed with the patient. All questions were answered and informed consent was obtained. The benefits, risks and alternatives of the procedure and sedation were discussed and informed consent was obtained. All questions were answered. Please refer to the signed informed consent document in the medical record. The scope was passed under direct vision. The CF [id number] endoscope was introduced through the anus and advanced to the cecum, identified by appendiceal orifice and ileocecal valve. The colonoscopy was performed without difficulty. The patient tolerated the procedure well. The quality of the bowel preparation was adequate to identify polyps 6 mm and larger in size. The quality of the bowel preparation was evaluated using the BBPS ([place] Bowel Preparation Scale) with scores of: Right Colon = 3 (entire mucosa seen well with no residual staining, small fragments of stool or opaque liquid), Transverse Colon = 1 (portion of mucosa seen, but other areas not well seen due to staining, residual stool and/or opaque liquid) and Left Colon = 2 (minor amount of residual staining, small fragments of stool and/or opaque liquid, but mucosa seen well). The total BBPS score equals 6. The quality of the bowel preparation was fair. The bowel preparation used was GoLYTELY. Bowel prep was administered using a split dose. Findings: A 6 mm polyp was found in the cecum at the base of the cecum. The polyp was sessile. The polyp was removed with a cold biopsy forceps. Resection and retrieval were complete. Estimated blood loss was minimal. A 6 mm polyp was found in the ascending colon. The polyp was sessile. The polyp was removed with a cold biopsy forceps. Resection and retrieval were complete. Estimated blood loss: Minimal. Impression: - Preparation of the colon was fair. - One 6 mm polyp in the cecum, removed with a cold biopsy forceps. Resected and retrieved. - One 6 mm polyp in the ascending colon, removed with a cold biopsy forceps. Resected and retrieved. Recommendation: - Await pathology results. - Repeat colonoscopy in 1 year for surveillance because the prep was fair and small polyps <6mm could have been missed.. There were areas of solid stool that we washed extensively but can't rule out small polyps. - Return to primary care physician as previously scheduled. Electronically signed by Noemi Mccoy MD Noemi Mccoy M.D. 05/14/2020 12:01:33 PM . Number of Addenda: 0 Note Initiated On: 05/14/2020 11:03 AM Recognized by the [place] [employer] for promoting quality in endoscopy documented in this encounter Plan of Treatment [...] Procedure Name Priority Date/Time Associated Diagnosis Comments SURGICAL PATHOLOGY Routine 05/14/2020 11 :13 AM CDT Healthcare maintenance COLONOSCOPY 05/14/2020 11:03 AM CDT COLON BIOPSY 05/14/2020 11:00 AM CDT Healthcare maintenance documented in this encounter Results * Surgical pathology (05/14/2020 11:13 AM CDT) Tissue (Polyp(s), colon/colorectal, esophageal, gastric) 05/14/2020 11:13 AM CDT Tissue (Polyp(s), colon/colorectal, esophageal, gastric) 05/14/2020 11:28 AM CDT Narrative PATHOLOGY [facility] - 05/15/2020 10:42 AM CDT EPIC results best viewed via link to PDF [facility] [place] [address] SURGICAL PATHOLOGY REPORT FINAL Patient Name: ?? YARIEL HILL Gender: ??M : ??1970 (Age: 50) Address: ??[address] [place] [address] Hospital #: ??[id number] Taken:05/14/2020 Received:05/14/2020 Reported: 05/15/2020 Patient Type: [facility] ?? Service: Gastro Location: [facility] Physician(s): ??Noemi Mccoy M.D. Teresita Painting M.D. Suyapa Gaston MD Diagnosis: A. ??Large intestine, cecal polyp, biopsy ? - Fragments of tubular adenoma ? B. ??Large intestine, right colon, biopsy ? - Fragments of tubular adenoma ? kxb/05/15/2020 10:42 By this signature, I attest that the above diagnosis is based upon my personal examination of the slides(and/or other material indicated in the diagnosis). Melinda Wong MD Report Electronically Reviewed and Signed Out By ??Melinda Wong MD 05/15/2020 10:42:55 Microscopic Description and Comment: Microscopic examination substantiates the above cited diagnosis. History: The patient is a 50-year-old man who presents for colon cancer screening. ??Operative procedure: Colonoscopy. Specimen(s) Received: A: Cecal polyp B: Right colon Gross Description: The specimen is received in two formalin filled containers each labeled with the patient's name. The first container is labeled cecal polyp and contains multiple levi-pink soft tissue fragments measuring 0.7 x 0.4 x 0.1 cm in aggregate. ??Wrapped. ??Labeled A1. ??Jar 0. The second container is labeled right colon and contains two levi-pink soft tissue fragments measuring 0.5 x 0.3 x 0.1 cm in aggregate. ??Wrapped. ??Labeled B1. ??Jar 0. and/05/14/2020 13:49 PA(s): Consuelo Martino MS, PA ([facility]) By this signature, I attest that the above diagnosis is based upon my personal examination of the slides(and/or other material). Addenda/Procedures The performance characteristics of some immunohistochemical stains, fluorescence in-situ hybridization tests and immunophenotyping by flow cytometry cited in this report (if any) were determined by the Surgical Pathology Department at [facility] as part of an ongoing quality reviewer program and in compliance with federally mandated regulations drawn from the Clinical Laboratory Improvement Act of 1988 (CLIA '88). ??Some of these tests rely on the use of analyte specific reagents and are subject to specific labeling requirements by the US Food and Drug Administration. ??Such diagnostic tests may only be performed in a facility that is certified by the Department of Health and Human Services as a high complexity laboratory under CLIA '88. ??The FDA has determined that such clearance or approval is not necessary. ??This test is used for clinical purposes. ??It should not be regarded as investigational or for research. ??Nevertheless, federal rules concerning the medical use of analyte specific reagents require that the following disclaimer be attached to the report: This test was developed and its performance characteristics determined by the Surgical Pathology Department of [facility]. ??It has not been cleared or approved by the U. S. Food and Drug Administration. IMAGES AND SCANNED DOCUMENTS, IF INCLUDED, ONLY VIEWABLE IN PDF VERSION OF REPORT us Noemi Mccoy MD LAB PATHOLOGY ORDERABLES Fin al Result PATHOLOGY [facility] 3rd Floor [place], [place] [phone] * COLONOSCOPY (05/14/2020 11:03 AM CDT) Anatomical Region Laterality Modality Other Narrative Procedure Note Noemi Mccoy MD - 05/14/2020 11:03 AM CDT GI ENDOSCOPY [facility] Patient Name: Yariel Hill Procedure Date: 05/14/2020 11:03 AM Date of : 1970 Admit Type: Outpatient Age: 50 Gender: Male Attending MD: Noemi Mccoy M.D. Room: [facility] ENDOSCOPY ROOM 4 Note Status: Finalized Procedure: Colonoscopy Indications: Screening for colorectal malignant neoplasm, This is the patient's first colonoscopy Referring MD: Teresita Painting M.D. Providers: Noemi Mccoy M.D. Medicines: Monitored Anesthesia Care Complications: No immediate complications. Estimated Blood Loss: Estimated blood loss was minimal. Procedure: Pre-Anesthesia Assessment: - Prior to the procedure, a History and Physical was performed, and patient medications and allergieswere reviewed. The risks and benefits of the procedureand the sedation options and risks were discussed withthe patient. All questions were answered and informed consent was obtained. Patient identification and proposed procedure were verified by the physician,the nurse, the municipal services manager and the remediation technician in the procedure room. Respiratory Examination: clear to auscultation. CV Examination: normal. Prophylactic Antibiotics: The patient does not requireprophylactic antibiotics. Prior Anticoagulants: The patient has taken no previous anticoagulant or antiplateletagents. After reviewing the risks and benefits, the patientwas deemed in satisfactory condition to undergo the procedure. The anesthesia plan was to use monitored anesthesia care (MAC). Immediately prior to administration of medications, the patient was re-assessed for adequacy to receive sedatives. The heart rate, respiratory rate, oxygen saturations,blood pressure, adequacy of pulmonary ventilation, and response to care were monitored throughout the procedure. The physical status of the patient was re-assessed after the procedure. - Immediately prior to administration ofmedications, the patient was re-assessed for adequacy to receive sedatives. - The risks and benefits of the procedure and the sedation options and risks were discussed with the patient. All questions were answered and informed consent was obtained. The benefits, risks and alternatives of theprocedure and sedation were discussed and informed consent was obtained. All questions were answered. Please referto the signed informed consent document in the medical record. The scope was passed under direct vision.The [id number] endoscope was introduced throughthe anus and advanced to the cecum, identified by appendiceal orifice and ileocecal valve. The colonoscopy was performed without difficulty. The patient tolerated the procedure well. The quality of the bowel preparation was adequate to identifypolyps 6 mm and larger in size. The quality of the bowel preparation was evaluated using the BBPS (BostonBowel Preparation Scale) with scores of: Right Colon = 3 (entire mucosa seen well with no residual staining, small fragments of stool or opaque liquid),Transverse Colon = 1 (portion of mucosa seen, but other areasnot well seen due to staining, residual stool and/oropaque liquid) and Left Colon = 2 (minor amount of residual staining, small fragments of stool and/or opaque liquid, but mucosa seen well). The total BBPS score equals 6. The quality of the bowel preparation was fair. The bowel preparation used was GoLYTELY. Bowel prep was administered using a split dose. Findings: A 6 mm polyp was found in the cecum at the base of the cecum. Thepolyp was sessile. The polyp was removed with a cold biopsy forceps.Resection and retrieval were complete. Estimated blood loss was minimal. A 6 mm polyp was found in the ascending colon. The polyp was sessile. The polyp was removed with a cold biopsy forceps. Resection and retrieval were complete. Estimated blood loss: Minimal. Impression: - Preparation of the colon was fair. - One 6 mm polyp in the cecum, removed with a cold biopsy forceps. Resected and retrieved. - One 6 mm polyp in the ascending colon, removedwith a cold biopsy forceps. Resected and retrieved. Recommendation: - Await pathology results. - Repeat colonoscopy in 1 year for surveillancebecause the prep was fair and small polyps <6mm could havebeen missed.. There were areas of solid stool that wewashed extensively but can't rule out small polyps. - Return to primary care physician as previously scheduled. Electronically signed by Noemi Mccoy MD Noemi Mccoy M.D. 05/14/2020 12:01:33 PM . Number of Addenda: 0 Note Initiated On: 05/14/2020 11:03 AM Recognized by the [place] [employer] for promoting quality in endoscopy us Noemi Mccoy MD ENDOSCOPY PROCEDURES Final R esult documented in this encounter Visit Diagnoses Diagnosis Healthcare maintenance Healthcare maintenance Healthcare maintenance documented in this encounter Admitting Diagnoses Diagnosis Healthcare maintenance documented in this encounter Administered Medications Inactive Administered Medications - up to 3 most recent administrations Medication Order MAR Action Action Date Dose Rate Site sodium chloride 0.9% flush 0.5-20 mL 0.5-20 mL, intra-catheter, As needed, line care, Starting on Tue05/14/20 at 0951, Pre-Procedure (GI), Flush volume based on line type and size. Flush before and after each use. , Indications: FlushingIndications:Flushing sodium chloride 0.9% infusion 30 mL/hr, intravenous, Continuous, Starting on Tue05/14/20 at 1030, Pre-Procedure (GI) New Bag 05/14/2020 9:58 AM CDT 30 mL/hr 30 mL/hr documented in this encounter Active and Recently Administered Medications Times are shown in CDT. Continuous Medication Order 2020 05/13/2020 05/14/2020 sodium chloride 0.9% infusion 30 mL/hr, intravenous, Continuous, Starting on Tue05/14/20 at 1030, Pre-Procedure (GI) 0958 (New Bag - Prov ider: Ashley Dawkins RN)1101 (Anesthesia Volume Adjustment - Provider: Yariel Ceron CRNA)1150 (Anesthesia Volume Adjustment - Provider: Yariel Ceron CRNA) PRN Medication Order 2020 05/13/2020 05/14/2020 sodium chloride 0.9% flush 0.5-20 mL 0.5-20 mL, intra-catheter, As needed, line care, Starting on Tue05/14/20 at 0951, Pre-Procedure (GI), Flush volume based on line type and size. Flush before and after each use. , Indications: Flushing documented in this encounter Orders Medications Ordered That Gama ht Not Have Been Administered Count Last Ordered Date First Ordered Date sodium chloride 0.9% flush 0.5-20 mL 1 04/30 documented in this encounter Care Teams Experimental Plastics Fabricator Relationship Specialty Start Date End Date Teresita Painting MD PCP - General 10/25/19 04/17/21 documented as of this encounter
--- OUTSIDE RECORDS SUMMARY | 2024-11-04 22:15 | XMS_ITS | Encounter Summary ---
Author Organization [facility] Address [address] [place] [address] Phone Care Team Providers Care Dental Ceramist Assistant Name Role Phone David Feliz MD Primary Care Provide r Encounter Details Date Type Department Care Team (Late st Contact Info) Description 05/22/2021 Telephone [facility] Gastroenterology [address] [facility] [address] [place] [address] [place] [address] Laura Carlisle RN Social History Tobacco Use Types Packs/Day Years Used Date Smoking Tobacco: Every Day Cigarettes Smokeless Tobacco: Never Comments:8 cigs a day Alcohol Use Standard Drinks/Week Comments Yes 0 (1 standard drink = 0.6 oz pur e alcohol) occasionally Sex and Gender Information Value Date Recorded Sex Assigned at Not on file 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
--- OUTSIDE RECORDS SUMMARY | 2024-11-04 22:15 | XMS_ITS | Encounter Summary ---
Author Organization [facility] Healthcare Address [address] [place] [address] Care Team Providers Care Link Fabric Machine Operator Name Role Phone Clare Kasper MD Primary Care Pro vider Encounter Details Date Type Department Care Team ([facility] Contact Info) Description 09/30/2022 9:35 AM CHAIRPERSON ANESTHESIOLOGY Lab [facility] Office Building [address] [address] Routine screening for STI (sexually transmitted infection) Social History Tobacco Use Types Packs/Day Years [...] you have a drink containing alc ohol? Monthly or less 07/27/2022 Average Number of Drinks Not on file 022 Frequency of Binge Drinking Not on file 07/02 PHQ-2 Answer Date Recorded PHQ-2 Total Score (If total score is 3 or more points, staff should administer the PHQ-9) 0 07/27/2022 Sex and Gender Information Value Date Recorded Sex Assigned at Not on file Legal Sex Male 2:37 PM CHAIRPERSON ANESTHESIOLOGY Gender Identity Not on file Sexual Orientation [...] Procedure Name Priority Date/Time Associated Diagnosis Comments HIV 1/2 ANTIBODY PLUS P24 ANTIGEN Routine 09/30/2022 9:42 AM CHAIRPERSON ANESTHESIOLOGY Routine screening for STI (sexually transmitted infection) documented in this encounter Results * HIV 1/2 Antibody plus p24 Antigen Blood (09/30/2022 9:42 AM CHAIRPERSON ANESTHESIOLOGY) HIV 1/2 ab + p24 ag Nonreactive Nonreactive [facility] Comment: Nonreactive for HIV-1 antigen and HIV-1/HIV-2 antibodies. No laboratory evidence of HIV infection. If acute HIV infection is suspected, consider testing for HIV-1 RNA. Blood 09/30/2022 9:42 AM CHAIRPERSON ANESTHESIOLOGY 09/30/2022 12:52 PM CHAIRPERSON ANESTHESIOLOGY Clare Kasper MD LAB MICROBIOLOGY - GENERAL ORDERABLES Final Result [facility] [address] [facility] Department [place] [address] documented in this encounter Visit Diagnoses Diagnosis Routine screening for STI (sexually transmitted infection) Screening examination for venereal disease documented in this encounter Care Teams Link Fabric Machine Operator Relationship Specialty Start Date End Date Clare Kasper MD PCP - General Family Medicine 07/27/22 documented as of this encounter
--- OUTSIDE RECORDS SUMMARY | 2024-11-04 22:15 | XMS_ITS | Encounter Summary ---
Author Organization [facility] Healthcare Address [address] [place] [address] Care Team Providers Care Freight Engineer Name Role Phone David Feliz MD Primary Care Provide r Encounter Details Date Type Department Care Team (Late st Contact Info) Description 06/24/2021 9:09 AM CDT Anesthesia Event [facility] [address] [place] [address] Yariel Macario MD [address] [place] [address] Anesthesia Record Procedure Summary Procedure Name Responsible Anesthesiologist Anesthesia Start Time Anesthesia Stop Time COLONOSCOPY cordova (Colon) Yariel Macario MD 06/24/21 0909 06/24/21 0944 Events Date Time Event Comment 06/24/2021 0909 An Start 0909 An Start Data 0909 Start Supplemental O2 0909 In Room 0913 An Induction The patient was reevaluated immediately before moderate or deep sedation use and before anesthesia induction. 0915 Anesthesia Ready 0916 Proc Start 0936 Proc Fin 0941 an stop data 0941 Out of Room 0944 Handoff to RN I completed my handoff to the receiving nurse during which we: 1. Patient identified 2. Responsible provider identified 3. Pertinent medical history reviewed 4. Procedure type and surgical course discussed 5. Intraoperative anesthetic management and any significant issues discussed 6. Expectations and concerns for postop period discussed 7. Questions solicited from receiving nurse 8. Patient disposition at the time of handoff: PACU 0944 An Stop 1514 1515 Release from care Meds Name Total midazolam PF 2 mg lidocaine (cardiac) syringe 2 % 60 mg propofol 80 mg propofol 159.94 mg sodium chloride 0.9% infusion 500 mL * Agents Name O2% N2O O2 * Blood No blood administrations on file. Lines, Drains, and Airways Type Details Placement Removal Peripheral IV Placement Date: 06/01 03/20; Placement Time: 814; Catheter Size: 22 G; Orientation: Right; Location: Antecubital; Site Prep: Chlorhexidine; Inserted by: alexi martinez rn; Insertion Attempts: 1; Patient Tolerance: Tolerated well; Removal Date: 06/24/21; Removal Time: 1023 06/24/21 0815 by Henrietta Baptiste RN 06/24/21 1023 by Leila Mireles RN documented in this encounter Social History Tobacco Use Types Packs/Day Years Used Date Smoking Tobacco: Every Day Cigarettes Smokeless Tobacco: Never Comments:8 cigs a day Alcohol Use Standard Drinks/Week Comments Yes 0 (1 standard drink = 0.6 oz pur e alcohol) occasionally AUDIT-C Answer Date Recorded Q1: How often do you have a drink containing alc ohol? Monthly or less 06/24/2021 Q2: How many drinks containi ng alcohol do you have on a typical day when you are drinking? 10 or more 06/24/2021 Q3: How often do you have si x or more drinks on one occasion? Less than monthly 06/24/2021 Sex and Gender Information Value Date Recorded Sex Assigned at Not on file Legal Sex Male 2:37 PM INSTITUTIONAL COOK Gender Identity Not on file Sexual Orientation Not on file documented as of this encounter OR Notes * Anesthesia Postprocedure Evaluation - Yariel Macario MD - 06/24/2021 10:09 AM CDT Patient: Yariel Hill Procedure Summary Date: 06/24/21 Room / Location: [facility] ROOM 8 / [facility] Anesthesia Start: 908 Anesthesia Stop: 943 Procedure: COLONOSCOPY cordova (N/A Colon) Diagnosis: Screen for colon cancer (Screen for colon cancer [Z12.11]) Providers: Noemi Mccoy MD Responsible Provider: Haley Quintana MD Anesthesia Type: MAC ASA Status: 2 Anesthesia Type: MAC Last vitals BP 134/84 (BP Location: Left arm, Patient Position: HOB 30 degrees) Pulse 59 Temp 36.2 ??C (97.2 ??F) (Temporal) Resp 15 SpO2 100% Anesthesia Post Evaluation Patient location during evaluation: PACU Patient participation: complete - patient participated Level of consciousness: follows simple commands Pain management: satisfactory to patient Airway patency: adequate and patent Evidence of recall: no Cardiovascular status: hemodynamically stable and blood pressure returned to baseline Respiratory status: room air Hydration status: euvolemic Pt is: normothermic Nausea/Vomiting status: none Comments: Denies pain and nausea No complications documented. * Anesthesia Preprocedure Evaluation - Melonie Massey, MANAGER CLINICAL PHARMACY - 06/24/2021 8:50 AM CDT Images from the original note were not included. Anesthesia Evaluation Yariel Flood Sergio is a 51 y.o. male Procedure(s): COLONOSCOPY cordova Pre-Op Diagnosis Codes: * Screen for colon cancer [Z12.11] Patient Active Problem List Diagnosis ??? Smoking ??? Alcohol abuse ??? Hypertension ??? Healthcare maintenance ??? Anemia ??? Allergic rhinitis Past Medical History: Diagnosis Date ??? Anemia ??? Anxiety ??? Hypertension ??? Pancreatitis ??? Vitamin D deficiency 11/28/2012 Past Surgical History: Procedure Laterality Date ??? CARPAL TUNNEL RELEASE Left 2007 ??? COLONOSCOPY ??? UPPER GASTROINTESTINAL ENDOSCOPY No Known Allergies Med List Status: Nurse Complete Set By: Henrietta Baptiste RN at 06/24/2021 8:11 AM Taking? Last Dose Start Date End Date Provider amLODIPine (NORVASC) 10 mg tablet 06/23/2021 11/07/20 11/07/21 Lionel Busby MD Take 1 tablet (10 mg total) by mouth daily cholecalciferol (Vitamin D3) 2000 unit capsule () 06/18/20 06/18/21 Francisco Goodson MD Take 1 capsule (2,000 Units total) by mouth daily Notes: To start after completion of 50K units weekly x8 weeks fluticasone propionate (FLONASE) 50 mcg/actuation nasal spray Past Week 12/08/20 12/08/21 Francisco Goodson MD Administer 2 sprays into each nostril daily naltrexone (DEPADE) 50 mg tablet 05/13/21 05/13/22 Lionel Busby MD Take 1 tablet (50 mg total) by mouth daily rosuvastatin (CRESTOR) 20 mg tablet 06/23/2021 05/13/21 05/08/22 Lionel Busby MD Take 1 tablet (20 mg total) by mouth daily terbinafine (LamiSIL) 250 mg tablet 06/23/2021 05/13/21 08/05/21 Lionel Busby MD Take 1 tablet (250 mg total) by mouth daily Current Facility-Administered Medications: ??? sodium chloride 0.9% flush 0.5-20 mL, 0.5-20 mL, intra-catheter, PRN ??? sodium chloride 0.9% infusion, 30 mL/hr, intravenous, Continuous, Last Rate: 30 mL/hr at 06/24/21825, 30 mL/hr at 06/24/21825 Social History Tobacco Use Smoking Status Current Every Day Smoker ??? Packs/day: 0.35 ??? Types: Cigarettes Smokeless Tobacco Never Used Tobacco Comment 8 cigs a day Substance and Sexual Activity Alcohol Use Yes Comment: occasionally Substance and Sexual Activity Drug Use Never Family History Problem Relation Age of Onset ??? Kidney cancer Father Cancer, kidney; ??? Other (renal cancer) Father ??? Hypertension Mother Hypertension; Vitals: 06/24/21817 BP: 121/77 Pulse: 67 Resp: 14 Temp: 36.2 ??C (97.2 ??F) SpO2: 100% PT: No results found for requested labs within last 720 hours. INR: No results found for requested labs within last 720 hours. APTT: No results found for requested labs within last 720 hours. Hgb A1C: No results found for requested labs within last 720 hours. CBC RBC: No results found for requested labs within last 720 hours. RDW: No results found for requested labs within last 720 hours. MCHC: No results found for requested labs within last 720 hours. MCH: No results found for requested labs within last 720 hours. MCV: No results found for requested labs within last 720 hours. Hct: No results found for requested labs within last 720 hours. Hgb: No results found for requested labs within last 720 hours. WBC: No results found for requested labs within last 720 hours. MPV: No results found for requested labs within last 720 hours. Platelets: No results found for requested labs within last 720 hours. RDW CV: No results found for requested labs within last 720 hours. RDW Sd: No results found for requested labs within last 720 hours. BMP Glucose: No results found for requested labs within last 720 hours. Calcium: No results found for requested labs within last 720 hours. Sodium: No results found for requested labs within last 720 hours. Potassium: No results found for requested labs within last 720 hours. CO2: No results found for requested labs within last 720 hours. Chloride: No results found for requested labs within last 720 hours. BUN: No results found for requested labs within last 720 hours. Creatinine: No results found for requested labs within last 720 hours. DOS Physical Exam Medical history, medications, and allergies reviewed. Attestation: With today's edits, I endorse the findings of the procedural assessment dated: 06/24/2021. Airway Exam: Mallampati: I Cervical ROM: FROM TM distance: normal Cardiovascular Exam: Rate: regular Rhythm: regular Pulmonary Exam: LCTA, bilat EENT Exam: trachea midline Dental Exam: Missing and poor dentition Skin Exam: Skin is warm. Current state: Patient's current state is cooperative. Anesthesia Plan ASA 2 My patient is approved for the Anesthesia Controlled Medication protocol when under care of a JUNIOR LEGAL SECRETARY Planned anesthesia: MAC Induction: Induction: intravenous. Postoperative Plan: Patient's planned disposition post procedure is Outpatient. Informed Consent: Discussed plan with JUNIOR LEGAL SECRETARY. Anesthesia plan and risks discussed with patient. Plan and Consent Comments: NPO status confirmed IMelonie, jennifer scribing for, and in the presence of Dr. Macario. . Consent and Attending signature: I and/or my designee have discussed the anesthesia plan, benefits, possible alternatives, parental presence at time of induction (if indicated), and clinically relevant risks that may include dental injury, unintentional awareness, and/or other complications. The patient and/or parent/legal guardian understand, and agree to proceed. All questions answered. Cosigned by Yariel Macario MD at 06/24/2021 9:44 AM CDT documented in this encounter Plan of Treatment [...] Diagnoses Not on filedocumented in this encounter Administered Medications Inactive Administered Medications - up to 3 most recent administrations Medication Order MAR Action Action Date Dose Rate Site lidocaine (cardiac) (XYLOCAINE) preservative free injection intravenous, As needed, Starting on Tue06/24/21 at 0914, Anesthesia Intra-op, Indications: Ventricular ArrhythmiasIndications:V entricular Arrhythmias Given 06/24/2021 9:14 AM CDT 60 mg midazolam (VERSED) 1 mg/mL preservative free injection intravenous, Administer over 2 Minutes, As needed, Starting on Tue06/24/21 at 0914, Anesthesia Intra-op Given 06/24/2021 9:14 AM CDT 2 mg propofoL (DIPRIVAN) 10 mg/mL IV intravenous, Continuous PRN, Starting on Tue06/24/21 at 0914, Anesthesia Intra-op New Bag 06/24/2021 9:14 AM CDT 140 mcg/kg/min 45.696 mL/hr propofoL (DIPRIVAN) 10 mg/mL IV intravenous, As needed, Starting on Tue06/24/21 at 0914, Anesthesia Intra-op Given 06/24/2021 9:14 AM CDT 80 mg sodium chloride 0.9% infusion 30 mL/hr, intravenous, Continuous, Starting on Tue06/24/21 at 0845, Pre-Procedure (GI) Restarted 06/24/2021 9:37 AM CDT Rate/Dose Verify 06/24/2021 9:09 AM CDT 30 mL/h r New Bag 06/24/2021 8:26 AM CDT 30 mL/hr 30 mL/hr documented in this encounter Care Teams Freight Engineer Relationship Specialty Start Date End Date David Feliz MD PCP - General 04/18/21 07/26/22 documented as of this encounter
--- OUTSIDE RECORDS SUMMARY | 2024-11-04 22:15 | XMS_ITS | Encounter Summary ---
Author Organization [facility] Address [address] [place] [address] Care Team Providers Care Document Examiner Name Role Phone Teresita Painting MD Primary Care Prov ider Encounter Details Date Type Department Care Team (Late st Contact Info) Description 06/18/2020 3:00 PM CDT Office Visit 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 Gender Identity Not on file Sexual Orientation Not on file documented as of this encounter Last Filed Vital Signs Vital Sign Reading Time Taken Comments Blood Pressure 150/88 06/18/2020 3:06 PM CDT Pulse 93 06/18/2020 3:06 PM CDT Temperature 37.3 ??C (99.1 ??F) 06/18/2020 3:06 PM CD T Respiratory Rate 18 06/18/2020 3:06 PM CDT Oxygen Saturation 99% 06/18/2020 3:06 PM CDT Inhaled Oxygen Concentration - - Weight 46.6 kg (102 lb 11.2 oz) 06/18/2020 3:06 PM CDT Height 170.2 cm (5' 7 ) 06/18/2020 3:06 PM CDT Body Mass Index 16.09 06/18/2020 3:06 PM CDT documented in this encounter Patient Instructions * Patient Instructions* Odette Byrnes RN - 06/18/2020 3:00 PM CDT Labwork today on the 4th floor, return to clinic in 3 months. Discharge instructions reviewed with patient who verbalized understanding of all information presented,. Patient Education Pneumococcal 13-Valent Vaccine, Diphtheria Conjugate (By injection) Pneumococcal 13-Valent Vaccine, Diphtheria Conjugate (NDM-ipe-URO-al 13-VAY-lent VAX-een, fed-ZTVTK-[id number]-a DPU-gbo-mmfz) Prevents infections, such as pneumonia and meningitis. Brand Name(s): Prevnar 13 There may be other brand names for this medicine. When This Medicine Should Not Be Used: This vaccine is not right for everyone. You should not receive it if you had an allergic reaction to pneumococcal or diphtheria vaccine. How to Use This Medicine: Injectable ?? A nurse or other health provider will give you this medicine. This vaccine is usually given as chun into a muscle in the thigh or upper arm. ?? The vaccine schedule is different for different people. ?? Tell your doctor if your child was born prematurely. Children who were premature may need to follow a different schedule. ?? Children younger than 6 years of age: This vaccine is usually given as 3 or 4 separate shots over several months. Your child's doctor will tell you how many shots are needed and when to come back for the next one. ?? Children older than 6 years of age: This vaccine is given as a single shot. If your child recently received another pneumonia vaccine, this one should be given at least 8 weeks later. ?? Adults older than 18 years of age: This vaccine is given as a single dose. ?? It is very important for your child to receive all of the shots for the vaccine. ?? Missed dose: This vaccine must be given on a fixed schedule. If your child misses a dose, call your child's doctor for another appointment. Drugs and Foods to Avoid: Ask your doctor or pharmacist before using any other medicine, including vatn-dih-nqrjxvx medicines, vitamins, and herbal products. ?? Some foods and medicines can affect how this vaccine works. Tell your doctor if you are receiving a treatment or medicine that causes a weak immune system. This includes radiation treatment, steroid medicine (including hydrocortisone, methylprednisolone, prednisolone, prednisone), or cancer medicine. Warnings While Using This Medicine: ?? Tell your doctor if you are or . ?? Tell your doctor if you have a weak immune system. You may not be fully protected by this vaccine. Possible Side Effects While Using This Medicine: Call your doctor right away if you notice any of these side effects: ?? Allergic reaction: Itching or hives, swelling in your face or hands, swelling or tingling in your mouth or throat, chest tightness, trouble breathing ?? High fever If you notice these less serious side effects, talk with your doctor: ?? Crying, irritability, or fussiness ?? Joint or muscle pain ?? Mild skin rash ?? Pain, burning, redness, or swelling where the shot was given ?? Poor appetite ?? Sleep changes If you notice other side effects that you think are caused by this medicine, tell your doctor. Call your doctor for medical advice about side effects. You may report side effects to FDA at 6-509-STN-9945 ?? 2017 [employer] Information is for End User's use only and may not be sold, redistributed or otherwise used for commercial purposes. The above information is an tailor's aide only. It is not intended as medical advice for individual conditions or treatments. Talk to your doctor, nurse or pharmacist before following any medical regimen to see if it is safe and effective for you. JAHAIRA Barragan documented in this encounter Ordered Prescriptions Prescription Sig Dispense Quantity Refills Last Filled Start Date End Date cholecalciferol (Vitamin D3) 2000 unit capsuleIndications :Vitamin D deficiency Take 1 capsule (2,000 Units total) by mouth daily 90 capsule 3 06/18/2020 2 ergocalciferol (VITAMIN D) 50,000 unit capsuleIndications :Vitamin D deficiency Take 1 capsule (50,000 Units total) by mouth once a week 8 capsule 06/18/2020 0 documented in this encounter Discharge Disposition Disposition Code Departure Means Destination Discharge to home or self care documented in this encounter Progress Notes * Francisco Goodson MD - 06/18/2020 3:00 PM CDT Patient Name: Yariel Hill : 1970 Today's Date: 06/18/2020 PCP: Teresita Painting MD Chief Complaint Follow-up. HPI Yariel Hill is a 50 y.o. male with a history of HTN, tobacco use, and EtOH use complicated bypancreatitis (2014) presents for follow-up. 1. Hypertension: Blood pressure initially 150/88 but decreased to 138/80 on manual recheck. Still elevated but patient checks at home and last reading was 127/78 (06/13/20); he reports it generally stays in that range. Regimen is amlodipine 5mg daily only which he reports good adherence with. Denies any headaches, vision changes, chest pain, orthopnea/PND, palpitations, swelling, weakness, speechdifficulty. 2. EtOH use: Patient reports he has cut down is alcohol use. Does not use weekly, rather will drinkin binges and can drink about 24 beers in a week and then will go weeks to months without drinking.He has cut down recently on alcohol consumption due to fears of coronavirus. He has also cut down on food in general due to these fears. Weight however has remained stable overall ~101- 106lb (128lb in ED likely outlier). Denies dysphagia, odynophagia, abdominal pain, diarrhea; denies mood changes, concentration issues, sleep difficulty. Appetite remains good 3. Vitamin D deficiency: Vitamin D level 16 (07/2019). Replacement previously ordered but not picked up as patient switched pharmacy. Review of Systems Review of Systems Constitutional: Negative for chills, diaphoresis, fever, malaise/fatigue and weight loss. HENT: Negative for congestion, ear discharge, ear pain, sinus pain and sore throat. Eyes: Negative for pain, discharge and redness. Respiratory: Negative for cough, hemoptysis, shortness of breath and wheezing. Cardiovascular: Negative for chest pain, palpitations, orthopnea, leg swelling and PND. Gastrointestinal: Negative for abdominal pain, blood in stool, constipation, diarrhea, heartburn, nausea and vomiting. Genitourinary: Negative for dysuria, flank pain, frequency, hematuria and urgency. Musculoskeletal: Negative for back pain, falls, joint pain, myalgias and neck pain. Skin: Negative for rash. Neurological: Negative for dizziness, tingling, sensory change, focal weakness, seizures, loss of consciousness, weakness and headaches. Endo/Heme/Allergies: Negative for polydipsia. Psychiatric/Behavioral: Negative for depression and substance abuse. The patient is nervous/anxious. Anxious about coronavirus; not anxious about other things Past Medical History: Diagnosis Date ??? Anemia ??? Anxiety ??? Hypertension ??? Pancreatitis Social History Socioeconomic History ??? Marital status: Single Spouse name: None ??? Number of children: None ??? Years of education: None ??? Highest education level: None Occupational History ??? None Social Needs ??? Financial resource strain: None ??? Food insecurity Worry: None Inability: None ??? Transportation needs Medical: None Non-medical: None Tobacco Use ??? Smoking status: Current Every Day Smoker Packs/day: 0.35 Types: Cigarettes ??? Smokeless tobacco: Never Used ??? Tobacco comment: 8 cigs a day Substance and Sexual Activity ??? Alcohol use: Yes Comment: occasionally ??? Drug use: Never ??? Sexual activity: Not Currently Lifestyle ??? Physical activity Days per week: None Minutes per session: None ??? Stress: None Relationships ??? Social connections Talks on phone: None Gets together: None Attends restoration service: None Active member of club or organization: None Attends meetings of clubs or organizations: None Relationship status: None ??? Intimate partner violence Fear of current or ex partner: None Emotionally abused: None Physically abused: None Forced sexual activity: None Other Topics Concern ??? None Social History Narrative ??? None Family History Problem Relation Age of Onset ??? Kidney cancer Father Cancer, kidney; ??? Hypertension Mother Hypertension; Vitals Vitals: 06/18/20 1506 BP: 150/88 BP Location: Right arm Patient Position: Sitting Pulse: 93 Resp: 18 Temp: 37.3 ??C (99.1 ??F) TempSrc: Oral SpO2: 99% Weight: 46.6 kg (102 lb 11.2 oz) Height: 170.2 cm (5' 7 ) Body mass index is 16.09 kg/m??. Physical Exam Constitutional: He is oriented to person, place, and time and well-developed, well-nourished, and in no distress. Vital signs are normal. He appears not lethargic, to not be writhing in pain and not dehydrated. He appears healthy. Non-toxic appearance. He does not have a sickly appearance. No distress. Thin-appearing, not cachectic HENT: Head: Normocephalic and atraumatic. Nose: Nose normal. Mouth/Throat: Oropharynx is clear and moist and mucous membranes are normal. Cardiovascular: Normal rate, regular rhythm, S1 normal, S2 normal, normal heart sounds and normal pulses. Exam reveals no gallop, no S3 and no S4. No murmur heard. Pulmonary/Chest: Effort normal and breath sounds normal. No accessory muscle usage. No respiratory distress. He has no decreased breath sounds. He has no wheezes. He has no rhonchi. He has no rales. Abdominal: Soft. Normal appearance and bowel sounds are normal. He exhibits no distension and no ascites. There is no abdominal tenderness. There is no rigidity and no guarding. Neurological: He is alert and oriented to person, place, and time. He has normal motor skills. He appears not lethargic. Gait normal. Skin: Skin is warm, dry and intact. Psychiatric: Mood and affect normal. Assessment / Plan Yariel Hill is a 50 y.o. male with a history of HTN, tobacco use, and EtOH use complicated bypancreatitis (2015) presents for follow-up. Problem List Nervous Alcohol abuse (Chronic) Current Assessment & Plan Does not use EtOH consistently, previously more with binge episodes. However has cut down overall recently due to concerns of COVID. No signs/symptoms concerning for pancreatitis, cardiomyopathy, depression, esophagitis/gastritis, malignancy - congratulated on reduced EtOH use - provided additional counseling on reducing binge episodes - provided information regarding alcoholics anonymous online meetings - discussed anxiety/fears surrounding coronavirus and encouraged resuming normal diet Relevant Medications pneumococcal 13-valent (PREVNAR 13) 0.5 mL vaccine 0.5 mL (Start on 06/18/2020 4:45 PM) Circulatory Hypertension - Primary (Chronic) Current Assessment & Plan Blood pressure initially elevated above goal but improved closer to goal on manual recheck. Home readings indicated good control. No signs/symptoms concerning for ACS, CHF, CVA, PVD. - continue amlodipine 5mg daily - patient will bring log to next appointment Relevant Orders Comprehensive metabolic panel Digestive Vitamin D deficiency (Chronic) Current Assessment & Plan - re-ordered vitamin D 50K units q-weekly x8-weeks to preferred pharmacy - re-ordered vitamin D3 2000 units weekly to preferred pharmacy (after completing 50K units) - re-check vitamind D at next appointment Relevant Medications ergocalciferol (VITAMIN D) 50,000 unit capsule cholecalciferol (Vitamin D3) 2000 unit capsule Other Healthcare maintenance Overview General - A1c (for pts c BP >135/80): 4.9% (05/2018), re-check today - Lipids (men >35): 204/115/69/101 (07/2019), re-check today Cancer - Colonoscopy (age 45-75): tubular adenomatous polyps x2 (04/2020); GI recommended repeat in 1-yeardue to somewhat poor prep - Lung (55-80 [...] dz, liver dz, EtOH, asplenia): x2 in 2013 - PCV13 (age >65, immunocomp, CKD, asplenia): give today (06/18/20) Relevant Medications pneumococcal 13-valent (PREVNAR 13) 0.5 mL vaccine 0.5 mL (Start on 06/18/2020 4:45 PM) Other Relevant Orders CBC with auto differential Comprehensive metabolic panel Hemoglobin A1c HIV 1/2 Antibody plus p24 Antigen Lipid panel Return in about 3 months (around 09/18/2020). Francisco Goodson MD Internal Medicine, PGY-3 Cosigned by Martin Azul MD at 06/20/2020 1:29 PM CDT Associated attestation - Martin Azul MD - 06/20/2020 1:29 PM CDT I have personally reviewed with Dr. Francisco Goodson the history, physical examination, laboratory studies and proposed management for Yariel Hill. Together we formulated a clinical diagnosis for each problem and developed a plan for therapy during or immediately after his clinic visit. I agree with the recommended plan of care. documented in this encounter Miscellaneous Notes * Assessment & Plan Note - Francisco Goodson MD - 06/18/2020 4:26 PM CDT Associated Problem(s): Vitamin D deficiency (Resolved 04/23/2021) - re-ordered vitamin D 50K units q-weekly x8-weeks to preferred pharmacy - re-ordered vitamin D3 2000 units weekly to preferred pharmacy (after completing 50K units) - re-check vitamind D at next appointment * Assessment & Plan Note - Francisco Goodson MD - 06/18/2020 4:18 PM CDT Associated Problem(s): Hypertension Blood pressure initially elevated above goal but improved closer to goal on manual recheck. Home readings indicated good control. No signs/symptoms concerning for ACS, CHF, CVA, PVD. - continue amlodipine 5mg daily - patient will bring log to next appointment * Assessment & Plan Note - Francisco Goodson MD - 06/18/2020 4:16 PM CDT Associated Problem(s): Alcohol use disorder Does not use EtOH consistently, previously more with binge episodes. However has cut down overall recently due to concerns of COVID. No signs/symptoms concerning for pancreatitis, cardiomyopathy, depression, esophagitis/gastritis, malignancy - congratulated on reduced EtOH use - provided additional counseling on reducing binge episodes - provided information regarding alcoholics anonymous online meetings - discussed anxiety/fears surrounding coronavirus and encouraged resuming normal diet documented in this encounter Plan of Treatment [...] documented as of this encounter Results * Lipid panel (06/18/2020 4:46 PM CDT) [facility] Cholesterol 169 30 - 199 mg/dL [facility] Comment: Interpretive Data Ages < or = [...] Interpretive Data was last revised on 2018. Triglycerides 71 <=149 mg/dL [facility] Comment: Interpretive Data Ages < or = [...] Interpretive Data was last revised on 2018. HDL 76 >=40 mg/dL [facility]CO Comment: Interpretive Data Ages < or = [...] Interpretive Data was last revised on 2018. LDL, calculated 79 <=129 mg/dL [facility] Comment: Interpretive Data Ages < or = [...] Interpretive Data was last revised on 2018. Non-HDL Cholesterol 93 mg/dL [facility] OROZCO Comment: Interpretive Data Ages < or = [...] Interpretive Data was last revised on 2018. Chol/HDL ratio 2 [facility] Blood specimen (specimen) 06/18/2020 4:46 PM CDT 06/18/2020 5:13 PM CDT Francisco Goodson MD LAB BLOOD ORDERABLES Final Result Performing Organization Address [facility] de Phone Number [facility] [place] [address] * HIV 1/2 Antibody plus p24 Antigen (06/18/2020 4:46 PM CDT) [facility] HIV 1/2 ab + p24 ag Nonreactive Nonreactive [facility] Comment: Nonreactive for HIV-1 antigen and HIV-1/HIV-2 antibodies. No laboratory evidence of HIV infection. If acute HIV infection is suspected, consider testing for HIV-1 RNA. Blood specimen (specimen) 06/18/2020 4:46 PM CDT 06/18/2020 5:13 PM CDT Francisco Goodson MD LAB MICROBIOLOGY - GENERAL ORDERABLES Final Result Performing Organization Address [facility] de Phone Number [facility] [place] [address] * Hemoglobin A1c (06/18/2020 4:46 PM CDT) [facility] Hgb A1C 4.9 4.0 - 5.6 % [facility] Estimated Average Glucose 94 mg/dL [facility] Comment: The ADA recommends reporting an estimated Average Glucose (eAG) with all Hemoglobin A1c results using the equation derived from a study of 507 normal and diabetic adults. ??Minority populations were underrepresented and children were not included. ?? (Diabetes Care 31:8880-3918, 2007). ??The eAG is not equivalent to a fasting glucose. Blood specimen (specimen) 06/18/2020 4:46 PM CDT 06/18/2020 5:13 PM CDT Francisco Goodson MD LAB BLOOD ORDERABLES Final Result [facility] [place] [address] * Comprehensive metabolic panel (06/18/2020 4:46 PM CDT) Sodium 139 135 - 145 mmol/L [facility] Potassium, pl 4.4 3.3 - 4.9 mmol/L [facility] Chloride 102 97 - 110 mmol/L [facility] CO2 28 22 - 32 mmol/L [facility] Anion gap 9 2 - 15 mmol/L [facility] BUN 11 8 - 25 mg/dL [facility] Creatinine 1.01 0.80 - 1.30 mg/dL [facility] Glucose 72 70 - 199 mg/dL [facility] Comment: Interpretive Data Fasting glucose >/= 126 [...] classification and Diagnosis of Diabetes Diabetes Care 2017;40 (Suppl. 1):S11. Current interpretive data was last revised 2017. Calcium 9.5 8.5 - 10.3 mg/dL [facility] Bilirubin, total 0.5 0.1 - 1.2 mg/dL [facility] Protein, pl 7.5 6.5 - 8.5 g/dL [facility] Albumin 4.8 3.5 - 5.0 g/dL [facility] Alk phos 48 40 - 130 Units/L [facility] ALT 17 7 - 55 Units/L [facility] AST 28 10 - 50 Units/L [facility] Blood specimen (specimen) 06/18/2020 4:46 PM CDT 06/18/2020 5:13 PM CDT Francisco Goodson MD LAB BLOOD ORDERABLES Final Result [facility] Department [place] [address] * (ABNORMAL) CBC with auto differential (06/18/2020 4:46 PM CDT) [facility] WBC 7.1 3.8 - 9.9 K/cumm [facility] Hgb 13.7 13.0 - 17.5 g/dL [facility] Hct 41.1 38.9 - 50.3 % [facility] Plt 126(L) 150 - 400 K/cumm [facility] MPV 10.3 9.1 - 12.3 fL [facility] RBC 4.32 4.30 - 5.80 M/cumm [facility] MCV 95.1 81.3 - 96.4 fL [facility] MCH 31.7 27.1 - 33.3 pg [facility] MCHC 33.3 32.3 - 35.7 g/dL [facility] RDW CV 13.7 11.1 - 14.9 % [facility] RDW SD 48.7(H) 35.7 - 48.1 fL [facility] NRBC abs 0.00 0.00 - 0.01 K/cumm [facility] Blood specimen (specimen) 06/18/2020 4:46 PM CDT 06/18/2020 5:13 PM CDT Francisco Goodson MD LAB BLOOD ORDERABLES Final Result [facility] [place] [address] documented in this encounter Visit Diagnoses Diagnosis Essential hypertension- Primary Unspecified essential hypertension Alcohol abuse Nondependent alcohol abuse, unspecified drinking behavior Vitamin D deficiency Screening for diabetes mellitus Screening for hyperlipidemia Screening for lipoid disorders Encounter for screening for HIV Encounter for immunization documented in this encounter Discontinued Medications Medication Sig Discontinue Reason Start Date End Da te chlordiazePOXIDE (LIBRIUM) 25 mg capsuleIndications:Alco hol Withdrawal Syndrome Take 2 capsules (50 mg total) by mouth 3 (three) times a day for 3 days Therapy completed 12/08/2019 06/18/2020 cholecalciferol (Vitamin D3) 2000 unit capsule Take 1 capsule (2,000 Units total) by mouth daily Reorder 04/22/2020 06/18/2020 ergocalciferol (VITAMIN D) 50,000 unit capsule Take 1 capsule (50,000 Units total) by mouth once a week Reorder 04/22/2020 06/18/2020 documented as of this encounter Care Teams Document Examiner Relationship Specialty Start Date End Date Teresita Painting MD PCP - General 10/25/19 04/17/21 documented as of this encounter
--- OUTSIDE RECORDS SUMMARY | 2024-11-04 22:15 | XMS_ITS | Encounter Summary ---
Author Organization [facility] Healthcare Address [address] [place] [address] Care Team Providers Care Thrasher Feeder Name Role Phone Clare Kasper MD Primary Care Pro vider Reason for Visit * Reason Comments Drug / Alcohol Assessment Encounter Details Date Type Department Care Team ([facility] Contact Info) Description 11/13/2022 10:43 PM IRRIGATION EQUIPMENT REMOVER - 11/14/2022 2:51 AM IRRIGATION EQUIPMENT REMOVER Emergency [facility] Emergency Department [address] [place] [address] Jaylene Noonan MD [address] [place] [address] Alcohol cessation counseling (Primary Dx); Alcohol use disorder, severe, dependence (CMS/HCC) (HCC) Discharge Disposition: Discharge to home or self [...] on file Legal Sex Male 2:37 PM IRRIGATION EQUIPMENT REMOVER Gender Identity Not on file Sexual Orientation Not on file documented as of this encounter Last Filed Vital Signs Vital Sign Reading Time Taken Comments Blood Pressure 135/79 11/14/2022 12:30 AM IRRIGATION EQUIPMENT REMOVER Pulse 52 11/14/2022 2:40 AM IRRIGATION EQUIPMENT REMOVER Temperature 36.1 ??C (97 ??F) 11/13/2022 10:29 PM IRRIGATION EQUIPMENT REMOVER Respiratory Rate 16 11/13/2022 10:29 PM IRRIGATION EQUIPMENT REMOVER Oxygen Saturation 97% 11/14/2022 2:40 AM IRRIGATION EQUIPMENT REMOVER Inhaled Oxygen Concentration - - Weight 50.4 kg (111 lb 1.8 oz) 11/13/2022 10:29 PM IRRIGATION EQUIPMENT REMOVER Height 170.2 cm (5' 7.01 ) 11/13/2022 10:[address] Body Mass Index 17.4 11/13/2022 10:29 PM IRRIGATION EQUIPMENT REMOVER documented in this encounter Discharge Instructions * Discharge Instructions* Timmy Raphael MD - 11/14/2022 2:09 AM IRRIGATION EQUIPMENT REMOVER You have been evaluated in the Emergency Department today for alcohol use disorder. You have been observed in the Emergency Department and are now able to walk on your own and are tolerating fluids/food. You were given a prescription for Librium, to be taken in a taper over the next week. Please take 3 doses tomorrow, then 2 doses daily for the next 3 days, then 1 dose daily at bedtime for the next 3 days. Please refer to the list of resources that was given to by the socially responsible investment adviser, and reach out first thing Tuesday morning: [facility] ([facility]) Address: [address], [place] [address] Hours: Opens 8?AM Mon [facility] Address: [address], [place] [address] Hours: Opens 8?AM Mon [facility] Address: [address], [place] [address] Hours: Open 24 hours [facility] Address: [address], [place] [address] Hours: Open 24 hours Please follow up with your primary care physician. Return to the Emergency Department if you experience shaking, seizures, palpitations, inability to keep down fluids, worsening or uncontrolled pain, confusion, or for any other concerning symptoms. GATION EQUIPMENT REMOVER * Attachments The following attachments cannot be sent through Care Everywhere. * Abuse of Alcohol (AfterCare(R) Instructions(ER/ED)) (Emirati) documented in this encounter Medications at Time of Discharge triamcinolone (KENALOG) 0.1 % ointmentIndications :Eczema, unspecified type Apply topically 2 (two) times a day as needed for irritation or rash Do not use daily for more than 2 weeks at a time 30 g 09/30/2022 amLODIPine (NORVASC) 10 mg tabletIndications:E ssential hypertension Take 1 tablet (10 mg total) by mouth daily 90 tablet 3 01/22/2022 3 chlordiazePOXIDE (LIBRIUM) 25 mg capsuleIndications: Alcohol Withdrawal Syndrome Take 1 capsule (25 mg total) by mouth 3 (three) times a day as needed for anxiety or withdrawal symptoms for 1 day, THEN 1 capsule (25 mg total) 2 (two) times a day as needed for anxiety or withdrawal symptoms for 3 days, THEN 1 capsule (25 mg total) nightly as needed for anxiety or withdrawal symptoms for up to 3 days. 12 capsule 11/14/[address] (PROTONIX) 40 mg EC tablet Take 40 mg by mouth daily 05/27/2022 3 rosuvastatin (CRESTOR) 10 mg tabletIndications:H yperlipidemia, unspecified hyperlipidemia type Take 1 tablet (10 mg total) by mouth daily 90 tablet 3 07/28/2022 3 documented as of this encounter Ordered Prescriptions Prescription Sig Dispense Quantity Refills Last Filled Start Date End Date chlordiazePOXIDE (LIBRIUM) 25 mg capsuleIndications :Alcohol Withdrawal Syndrome Take 1 capsule (25 mg total) by mouth 3 (three) times a day as needed for anxiety or withdrawal symptoms for 1 day, THEN 1 capsule (25 mg total) 2 (two) times a day as needed for anxiety or withdrawal symptoms for 3 days, THEN 1 capsule (25 mg total) nightly as needed for anxiety or withdrawal symptoms for up to 3 days. 12 capsule 11/14/2022 3 documented in this encounter Discharge Disposition Disposition Code Departure Means Destination Discharge to home or self care documented in this encounter Consult Notes * Risa Dave MSW - 11/14/2022 12:39 AM CSTAssociated Order(s): IP CONSULT TO SOCIAL WORK EDSW reviewed consult. EDSW notes pt lives in [facility], EDSW met with pt at bedside and provide alcohol abuse resources. Pt was appreciative, no further assistance is needed at this time. [facility] ([facility]) Address: [address] [place] [address] Hours: Opens 8?AM Mon [facility] Address: [address] [place] [address] Hours: Opens 8?AM Mon [facility] Address: [address] [place] [address] Hours: Open 24 hours [facility] Address: [address] [place] [address] Hours: Open 24 hours Risa Dave LMSW 11/14/22 GATION EQUIPMENT REMOVER documented in this encounter ED Notes * Jaylene Whalen MD - 11/13/2022 11:49 PM CST HPI Chief Complaint Patient presents with Drug / Alcohol Assessment 52-year-old man with history of alcohol-induced pancreatitis, presents with desire to stop using alcohol. Over the last 3 months he has reported sharply increased alcohol use. His first during the days he should be in 5 and 6 in the morning. His most recent use of alcohol was 9:00 pm today. He is currently asymptomatic, and not complaining tremors or the urge to drink. He says his mother who he lives with is in support him stopping alcohol use. He had some success about 4 years ago while taking Librium. He is never tried AA. 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 When asked to estimate how many drinks he has not week, he can not tell me. 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) 08/19/2021 Hyperlipidemia 08/19/2021 Tobacco use 08/19/2021 Allergic rhinitis 07/06/2019 Healthcare maintenance 06/13/2018 Anemia 06/13/2018 GERD (gastroesophageal reflux disease) 09/03/2015 Onychomycosis 06/26/2014 Hypertension 06/26/2014 Smoking 09/18/2013 Alcohol abuse 11/13/2012 Past Medical History: Diagnosis Date Alcohol abuse Anemia Anxiety GERD (gastroesophageal reflux disease) Hypertension Pancreatitis Vitamin D deficiency 11/28/2012 Past Surgical History: Procedure Laterality Date CARPAL TUNNEL RELEASE Left 2007 COLONOSCOPY UPPER GASTROINTESTINAL ENDOSCOPY Family History Problem Relation Age of Onset Kidney cancer Father Cancer, kidney; Other (renal cancer) Father Hypertension Mother Hypertension; Alcohol abuse Brother Social History Tobacco Use Smoking status: Every Day Packs/day: 0.50 Years: 15.00 Pack years: 7.50 Types: Cigarettes Start date: 05/11/2000 Last attempt to quit: 07/26/2022 Years since quittin.3 Passive exposure: Yes Smokeless tobacco: Never Tobacco comments: 8 cigs a day Vaping Use Vaping Use: Never used Substance and Sexual Activity Alcohol use: Yes Comment: occasionally Drug use: Not Currently Types: Alcohol, Benzodiazepines Sexual activity: Not Currently Partners: Female Social History Social History Narrative Not on file Review of Systems Review of Systems Constitutional: Negative for fever. HENT: Negative for ear pain. Eyes: Negative for pain. Respiratory: Negative for shortness of breath. Cardiovascular: Negative for chest pain. Gastrointestinal: Negative for abdominal pain and vomiting. Genitourinary: Negative for testicular pain. Musculoskeletal: Negative for back pain. Skin: Negative for wound. Neurological: Negative for numbness and headaches. Psychiatric/Behavioral: Negative for confusion. Physical Exam ED Triage Vitals [11/13/22 2229] Temp Pulse Resp BP SpO2 36.1 ??C (97 ??F) 64 16 161/90 99 % Temp src Heart Rate Source Patient Position BP Location FiO2 (%) Oral -- -- -- -- Height Height Method Weight Weight Method 1.702 m (5' 7.01 ) Estimated 50.4 kg (111 lb 1.8 oz) Estimated Physical Exam Vitals and nursing note reviewed. Constitutional: General: He is not in acute distress. Appearance: He is well-developed. HENT: Head: Normocephalic and atraumatic. Eyes: General: No scleral icterus. Conjunctiva/sclera: Conjunctivae normal. Cardiovascular: Rate and Rhythm: Normal rate and regular rhythm. Heart sounds: No murmur heard. Pulmonary: Effort: Pulmonary effort is normal. No respiratory distress. Breath sounds: Normal breath sounds. Abdominal: General: Abdomen is flat. There is no distension. Palpations: Abdomen is soft. Tenderness: There is no abdominal tenderness. Comments: No hepatomegaly Musculoskeletal: General: No swelling. Cervical back: Neck supple. Skin: General: Skin is warm and dry. Capillary Refill: Capillary refill takes less than 2 seconds. Neurological: General: No focal deficit present. Mental Status: He is alert and oriented to person, place, and time. Motor: No weakness. Comments: No tremulousness, normal coordination and gait. Psychiatric: Mood and Affect: Mood normal. MDM Medical Decision Making Risk Prescription drug management. 52-year-old man with alcoholism, presenting with hopes of initiating treatment for this. No recent falls or trauma. No recent withdrawal symptoms. Most recent drink was about 2-1/2 hours ago. Has hadsuccess with Librium in the past. Plan: Social work consult for alcoholism counseling resources. No indication for admission given heis having series withdrawals at this time. Will plan for discharge on Librium taper, with resourcesfor alcoholism treatment. Librium taper: Prescription for #12 25mg tabs; take 25 mg TID x1 day, 25 mg BID x3d, 25mg qHS x3d, total duration 1 week. Attending Summary of Care I have seen and examined the patient on 11/13/2022. I agree with the findings and plan of care as documented in the resident's note. ED Course as of 11/14/22211 Time: 11/14 210 Comment: Social work has seen and given resources. Will discharge after dosing with Librium 10 mg. By: Timmy Raphael MD Alcohol cessation counseling Alcohol use disorder, severe, dependence (CMS/HCC) (HCC) Jaylene Whalen MD 11/14/22 0714 GATION EQUIPMENT REMOVER * Tony Pablo RN - 11/13/2022 10:32 PM CST Pt states that he is here for help with alcohol withdrawal; pt state that he has drank A LOT today. Pt states that he has drank a lot of tequila shots and lot of beer today starting around 10 am; pt is steady in triage; has no tremors. Pt states that he is just needing some help, has a history of having tremors in the past when he has stopped drinking. Pt is alert and oriented in triage and ans wering questions appropriately,. GATION EQUIPMENT REMOVER documented in this encounter Plan of Treatment [...] of this encounter Visit Diagnoses Diagnosis Alcohol cessation counseling- Primary Alcohol use disorder, severe, dependence (CMS/HCC) (HCC) documented in this encounter Administered Medications Inactive Administered Medications - up to 3 most recent administrations Medication Order MAR Action Action Date Dose Rate Site chlordiazePOXIDE (LIBRIUM) capsule 10 mg 10 mg, oral, Once, On 11/14/22 at 0209, For 1 dose Given 11/14/2022 2:44 AM IRRIGATION EQUIPMENT REMOVER 10 mg documented in this encounter Discontinued Medications Medication Sig Discontinue Reason Start Date End Da te chlordiazePOXIDE (LIBRIUM) 25 mg capsule TAKE 1 CAPSULE BY MOUTH EVERY 6 HOURS NEEDED FOR ALCOHOL WITHDRAWALS 07/10/2022 11/14/2022 documented as of this encounter Active and Recently Administered Medications Times are shown in IRRIGATION EQUIPMENT REMOVER. Scheduled Medication Order 11/12/2022 11/13/2022 11/14/2022 chlordiazePOXIDE (LIBRIUM) capsule 10 mg (COMPLETED) 10 mg, oral, Once, On 11/14/22 at 0209, For 1 dose 0244 (Given - Provid er: Macey Mckenna RN) documented in this encounter Orders Medications Ordered That Gama ht Not Have Been Administered Count Last Ordered Date First Ordered Date chlordiazePOXIDE (LIBRIUM) capsule 10 mg 1 11/14/2022 Consult Count Last Ordered Date First Orde red Date IP CONSULT TO SOCIAL WORK 1 11/13/2022 documented in this encounter Care Teams Thrasher Feeder Relationship Specialty Start Date End Date Clare Kasper MD PCP - General Family Medicine 07/27/22 documented as of this encounter
--- OUTSIDE RECORDS SUMMARY | 2024-11-04 22:15 | XMS_ITS | Encounter Summary ---
Author Organization [facility] Address [address] [place] [address] Care Team Providers Care Order Dispatcher Name Role Phone Clare Kasper MD Primary Care Pro vider Reason for Referral * Procedure (Routine) - Closed Specialty Diagnoses / Procedures Referred By Ltizy [email or web address] Referred To Contact Diagnoses Abscess Procedures Incision and Drainage Clare Kasper MD Phone: tel: fax: [facility] Referral ID Status Reason Start Date Expiration Date Visits Re quested Visits Authorized [id number] Closed 02/04/2023 03/05/2024 1 1 Reason for Visit * Reason Comments Allergic Reaction Allergic reaction so ap- L side of neck Encounter Details Date Type Department Care Team (Late st Contact Info) Description 02/04/2023 8:45 AM CDT Office Visit [facility] Primary Care [address] [place] [address] Clare Kasper MD [address] [place] [address] [address] [place] [address] Abscess (Primary Dx) Social History Tobacco Use Types [...] on file Legal Sex Male 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 Gender Identity Not on file Sexual Orientation Not on file documented as of this encounter Last Filed Vital Signs Vital Sign Reading Time Taken Comments Blood Pressure 118/80 02/04/2023 8:57 AM CDT Pulse 72 02/04/2023 8:57 AM CDT Temperature 36.4 ??C (97.5 ??F) 02/04/2023 8:57 AM CD T Respiratory Rate 18 02/04/2023 8:57 AM CDT Oxygen Saturation 99% 02/04/2023 8:57 AM CDT Inhaled Oxygen Concentration - - Weight 53 kg (116 lb 14.4 oz) 02/04/2023 8:57 AM CDT Height 170.2 cm (5' 7 ) 02/04/2023 8:57 AM CDT Body Mass Index 18.31 02/04/2023 8:57 AM CDT documented in this encounter Ordered Prescriptions Prescription Sig Dispense Quantity Refills Last Filled Start Date End Date doxycycline (VIBRAMYCIN) 100 mg capsuleIndications: Abscess Take 1 tablet/caps ule (100 mg total) by mouth 2 (two) times a day for 10 days 20 tablet/capsule 02/04/2023 02/14/2023 documented in this encounter Progress Notes * Clare Kasper MD - 02/04/2023 8:45 AM CDTAssociated Order(s): Incision and Drainage Post-Procedure Diagnose(s): Abscess Images from the original note were not included. Assessment/Plan: Assessment/Plan Diagnoses and all orders for this visit: Abscess (Primary) Comments: I&D performed today start abx Orders: - doxycycline (VIBRAMYCIN) 100 mg capsule; Take 1 tablet/capsule (100 mg total) by mouth 2 (two) times a day for 10 days Incision and Drainage Performed by: Clare Kasper MD Authorized by: Clare Kasper MD Consent Given by: Patient Site marked: the procedure site was marked Timeout: prior to procedure the correct patient, procedure, and site was verified Verbal consent obtained: Yes Written consent obtained: Yes Risks, alternatives, and patient questions discussed: Yes Type: Abscess Body area: Head Location details: Face Anesthesia: Local infiltration Local anesthetic: Lidocaine 2% without epinephrine Anesthetic total (ml): 1 Scalpel size: 15 Incision type: Single straight Incision depth: Dermal Complexity: Simple Drainage: Bloody and purulent Drainage amount: Scant Drainage amount (ml): 3 Wound treatment: Wound left open Packing material: None Patient tolerance: Patient tolerated the procedure well with no immediate complications Wound care discussed F/u 4 days or sooner as needed if symptoms not improving or worsen. Strict return/ED precautions discussed. Subjective: Yariel Hill is a 52 y.o. male here for swelling Earache There is pain in the left ear. This is a recurrent problem. The current episode started in the past7 days. The problem occurs constantly. The problem has been rapidly worsening. There has been no fever. The pain is at a severity of 9/10. Associated symptoms include diarrhea and neck pain. Pertinent negatives include no abdominal pain, coughing, ear discharge, headaches, rash or rhinorrhea. Chief Complaint Patient presents with Allergic Reaction Allergic reaction soap- L side of neck Has had this happen before on the other side and needed drained and abx Review of Systems HENT: Positive for ear pain. Negative for ear discharge and rhinorrhea. Respiratory: Negative for cough. Gastrointestinal: Positive for diarrhea. Negative for abdominal pain. Musculoskeletal: Positive for neck pain. Skin: Negative for rash. Neurological: Negative for headaches. Objective: Vital signs were reviewed. Vitals: 02/04/23 0857 BP: 118/80 BP Location: Left arm Patient Position: Sitting Pulse: 72 Resp: 18 Temp: 36.4 ??C (97.5 ??F) TempSrc: Temporal SpO2: 99% Weight: 53 kg (116 lb 14.4 oz) Height: 170.2 cm (5' 7 ) Physical Exam Gen: NAD, comfortable, appears as stated age Eyes: no conjunctival injection, EOMI ENMT: external ears symmetric CV: Regular rate Pulm: no increased work of breathing Skin: erythematous abscess of face inferior to L ear, warm and dry MSK/Neuro: symmetric limb movement Psych: alert and oriented to person/place/time, appropriate judgment and insight Clare Kasper MD documented in this encounter Plan of Treatment [...] Procedure Name Priority Date/Time Associated Diagnosis Comments [place] INCISION & DRAINAGE ABSCESS SIMPLE/SINGLE Routine 02/04/2023 8:45 AM CDT Abscess documented in this encounter Results * AZ INCISION & DRAINAGE ABSCESS SIMPLE/SINGLE (02/04/2023 8:45 AM CDT) Narrative Clare Kasper MD - 02/04/2023 8:45 AM CDT Clare Kasper MD ? 02/04/2023 ??9:55 AM Incision and Drainage Performed by: Clare Kasper MD Authorized by: Clare Kasper MD Consent Given by: ??Patient Site marked: the procedure site was marked ?? Timeout: prior to procedure the correct patient, procedure, and site was verified ?? Verbal consent obtained: Yes ?? Written consent obtained: Yes ?? Risks, alternatives, and patient questions discussed: Yes ?? Type: ??Abscess Body area: ??Head Location details: ??Face Anesthesia: ??Local infiltration Local anesthetic: ??Lidocaine 2% without epinephrine Anesthetic total (ml): ??1 Scalpel size: ??15 Incision type: ??Single straight Incision depth: ??Dermal Complexity: ??Simple Drainage: ??Bloody and purulent Drainage amount: ??Scant Drainage amount (ml): ??3 Wound treatment: ??Wound left open Packing material: ??None Patient tolerance: ??Patient tolerated the procedure well with no immediate complications Wound care discussed Clare Kasper MD IN CLINIC/BEDSIDE ORDERABLES Final Result documented in this encounter Visit Diagnoses Diagnosis Abscess- Primary Cellulitis and abscess of unspecified site documented in this encounter Care Teams Order Dispatcher Relationship Specialty Start Date End Date Clare Kasper MD PCP - General Family Medicine 07/27/22 documented as of this encounter
--- OUTSIDE RECORDS SUMMARY | 2024-11-04 22:15 | XMS_ITS | Encounter Summary ---
Author Organization [facility] Healthcare Address [address] [place] [address] Care Team Providers Care Rail Maintenance Worker Name Role Phone Teresita Painting MD Primary Care Prov ider Encounter Details Date Type Department Care Team (Late st Contact Info) Description 11/07/2020 4:00 PM UPPER TRIMMER Lab [facility] [address] [place] [address] [id number] Thrombocytopenia (CMS/HCC); Vitamin D deficiency Social History Tobacco Use Types Packs/Day Years Used Date Smoking Tobacco: Every Day Cigarettes Smokeless Tobacco: Never Comments:8 cigs a day Alcohol Use Standard Drinks/Week Comments Yes 0 (1 standard drink = 0.6 oz pur e alcohol) occasionally Sex and Gender Information Value Date Recorded Sex Assigned at Not on file Legal Sex Male 2:37 PM UPPER TRIMMER Gender Identity Not on file Sexual Orientation Not on file documented as of this encounter Plan of Treatment Not on file documented as of this encounter Goals Goal Patient Goal Type Associated Problems Recent Progress Patient-Stated? Author FIORELLA General Goal - Patient schedules and keeps appointments with all recommended providers ACO Care Management Sherire Martin, JAHAIRA Note: Problem: Potential for medical [...] Procedure Name Priority Date/Time Associated Diagnosis Comments DIFFERENTIAL AUTO Routine 11/07/2020 3:2 7 PM UPPER TRIMMER Thrombocytopenia (CMS/HCC) CBC WITH AUTO DIFFERENTIAL Routine 11/07/2020 3:27 PM UPPER TRIMMER Thrombocytopenia (CMS/HCC) VITAMIN D 25 HYDROXY Routine 11/07/2020 3:27 PM UPPER TRIMMER Vitamin D deficiency documented in this encounter Results * Differential, auto (11/07/2020 3:27 PM UPPER TRIMMER) Neutrophil abs 5.3 1.7 - 6.5 K/cumm [facility] Imm gran abs 0.0 0.0 - 0.1 K/cumm [facility] Lymphocyte abs 2.3 0.8 - 3.3 K/cumm [facility] Monocyte abs 0.5 0.2 - 0.8 K/cumm [facility] Eosinophil abs 0.2 0.0 - 0.5 K/cumm [facility] Basophil abs 0.0 0.0 - 0.1 K/cumm [facility] Neutrophil pct 63.2 % [facility] Comment: Interpretive Data Percent cell count reference ranges are not reported, since discordance with absolute values may lead to misinterpretation of CBC data. Current Interpretive Data was last revised on 2018. Imm gran pct 0.2 % [facility] Comment: Interpretive Data Percent cell count reference ranges are not reported, since discordance with absolute values may lead to misinterpretation of CBC data. Current Interpretive Data was last revised on 2018. Lymphocyte pct 27.3 % [facility] Comment: Interpretive Data Percent cell count reference ranges are not reported, since discordance with absolute values may lead to misinterpretation of CBC data. Current Interpretive Data was last revised on 2018. Monocyte pct 6.2 % [facility] Comment: Interpretive Data Percent cell count reference ranges are not reported, since discordance with absolute values may lead to misinterpretation of CBC data. Current Interpretive Data was last revised on 2018. Eosinophil pct 2.6 % [facility] Comment: Interpretive Data Percent cell count reference ranges are not reported, since discordance with absolute values may lead to misinterpretation of CBC data. Current Interpretive Data was last revised on 2018. Basophil pct 0.5 % [facility] Comment: Interpretive Data Percent cell count reference ranges are not reported, since discordance with absolute values may lead to misinterpretation of CBC data. Current Interpretive Data was last revised on 2018. Blood specimen (specimen) 11/07/2020 3:27 PM UPPER TRIMMER 11/08/2020 12:09 AM UPPER TRIMMER Lionel Busby MD LAB BLOOD ORDERABLES Carrie l Result [facility] Department [place] [address] * (ABNORMAL) Vitamin D 25 hydroxy (11/07/2020 3:27 PM UPPER TRIMMER) Vitamin D 25-OH 27(L) 30 - 80 ng/mL [facility] Blood specimen (specimen) 11/07/2020 3:27 PM UPPER TRIMMER 11/07/2020 4:45 PM UPPER TRIMMER us Lionel Busby MD LAB BLOOD ORDERABLES Carrie l Result Performing Organization Address [facility] Co de Phone Number [facility] [employer] [place] [address] * (ABNORMAL) CBC with auto differential (11/07/2020 3:27 PM UPPER TRIMMER) WBC 8.0 3.8 - 9.9 K/cumm [facility] Hgb 13.7 13.0 - 17.5 g/dL [facility] Hct 38.6(L) 38.9 - 50.3 % [facility] Plt 207 150 - 400 K/cumm [facility] MPV 9.8 9.1 - 12.3 fL [facility] RBC 4.26(L) 4.30 - 5.80 M/cumm [facility] MCV 90.6 81.3 - 96.4 fL [facility] MCH 32.2 27.1 - 33.3 pg [facility] MCHC 35.5 32.3 - 35.7 g/dL [facility] RDW CV 12.3 11.1 - 14.9 % [facility] RDW SD 40.9 35.7 - 48.1 fL [facility] NRBC abs 0.00 0.00 - 0.01 K/cumm [facility] Blood specimen (specimen) 11/07/2020 3:27 PM UPPER TRIMMER 11/07/2020 4:45 PM UPPER TRIMMER Lionel Busby MD LAB BLOOD ORDERABLES Carrie l Result Performing Organization Address [facility]/ZIP Co de Phone Number [facility] [employer] [place] [address] documented in this encounter Visit Diagnoses Diagnosis Thrombocytopenia (HCC) Unspecified thrombocytopenia Vitamin D deficiency documented in this encounter Care Teams Rail Maintenance Worker Relationship Specialty Start Date End Date Teresita Painting MD PCP - General 10/25/19 04/17/21 documented as of this encounter
--- OUTSIDE RECORDS SUMMARY | 2024-11-04 22:15 | XMS_ITS | Encounter Summary ---
Author Organization [facility] Healthcare Address [address] [place] [address] Care Team Providers Care Professor In Family Studies Name Role Phone David Feliz MD Primary Care Provide r Encounter Details Date Type Department Care Team (Late st Contact Info) Description 06/24/2021 9:00 AM CDT - 06/24/2021 9:45 AM CDT Surgery [facility] Digestive Disease [place] [address] [facility] [address] [place] [address] Noemi Mccoy MD [facility] [address] [place] [address] COLONOSCOPY [facility] Surgery Details Date/Time Status Location OR Service Patient Class Case Class Case Type Trauma Case? 06/24/2021 9:00 AM Posted [facility] ENDOSCOPY GI 08 Gastroenterology Outpatient Elective Panel 1 Procedure LRB Anes Op Region Wound Class Comments COLONOSCOPY cordova N/A Monitor Anesthesia Care Colon N /A Surgeon Surgeon Role Service Panel Noemi Mccoy MD Primary Gastroenterology 1 documented [...] on file Legal Sex Male 2:37 PM MUD GRINDER Gender Identity Not on file Sexual Orientation Not on file documented as of this encounter Last Filed Vital Signs Vital Sign Reading Time Taken Comments Blood Pressure 102/64 06/24/2021 9:44 AM CDT Pulse 57 06/24/2021 9:44 AM CDT Temperature 36.2 ??C (97.2 ??F) 06/24/2021 9:44 AM CD T Respiratory Rate 21 06/24/2021 9:44 AM CDT Oxygen Saturation 100% 06/24/2021 9:44 AM CDT Inhaled Oxygen Concentration - - Weight 54.4 kg (120 lb) 06/24/2021 8:18 AM CDT Height 170.2 cm (5' 7 ) 06/24/2021 8:18 AM CDT Body Mass Index 18.79 06/24/2021 8:18 AM CDT documented in this encounter Medications at Time of Discharge naltrexone (DEPADE) 50 mg tablet Take 1 tablet (50 mg total) by mouth daily 90 tablet 3 05/13/2021 2 terbinafine (LamiSIL) 250 mg tablet Take 1 tablet (250 mg total) by mouth daily 84 tablet 05/13/2021 1 amLODIPine (NORVASC) 10 mg tabletIndications: Essential hypertension Take 1 tablet (10 mg total) by mouth daily 90 tablet 3 11/07/2020 2 cholecalciferol (Vitamin D3) 2000 unit capsuleIndications :Vitamin D deficiency Take 1 capsule (2,000 Units total) by mouth daily 90 capsule 3 06/18/2020 2 fluticasone propionate (FLONASE) 50 mcg/actuation nasal sprayIndications:S inus congestion Administer 2 sprays into each nostril daily 16 g 5 12/08/2020 2 rosuvastatin (CRESTOR) 20 mg tablet Take 1 tablet (20 mg total) by mouth daily 90 tablet 3 05/13/2021 2 documented as of this encounter Discharge Disposition Disposition Code Departure Means Destination Discharge to home or self care documented in this encounter H&P Notes * Noemi Mccoy MD - 06/24/2021 9:03 AM CDT General H&P Subjective Patient is a 51 y.o. male with chief complaint of surveillance for colon polyps. HPI: Previous colonoscopy with fair preparation. Several polyps (adenomas) were removed in April 2020, recommended to return in one year since the presence of small polyps could not be ruled out. Past Medical History: Diagnosis Date ??? Anemia ??? Anxiety ??? Hypertension ??? Pancreatitis ??? Vitamin D deficiency 11/28/2012 Past Surgical History: Procedure Laterality Date ??? CARPAL TUNNEL RELEASE Left 2007 ??? COLONOSCOPY ??? UPPER GASTROINTESTINAL ENDOSCOPY Medications Prior to Admission Medication Sig Dispense Refill Last Dose ??? amLODIPine (NORVASC) 10 mg tablet Take 1 tablet (10 mg total) by mouth daily 90 tablet 3 06/23/2021 at Unknown time ??? fluticasone propionate (FLONASE) 50 mcg/actuation nasal spray Administer 2 sprays into each nostril daily 16 g 5 Past Week at Unknown time ??? rosuvastatin (CRESTOR) 20 mg tablet Take 1 tablet (20 mg total) by mouth daily 90 tablet 3 06/23/2021 at Unknown time ??? terbinafine (LamiSIL) 250 mg tablet Take 1 tablet (250 mg total) by mouth daily 84 tablet 0 06/23/2021 at Unknown time ??? cholecalciferol (Vitamin D3) 2000 unit capsule Take 1 capsule (2,000 Units total) by mouth daily 90 capsule 3 ??? naltrexone (DEPADE) 50 mg tablet Take 1 tablet (50 mg total) by mouth daily 90 tablet 3 No Known Allergies Social History Tobacco Use ??? Smoking status: Current Every Day Smoker Packs/day: 0.35 Types: Cigarettes ??? Smokeless tobacco: Never Used ??? Tobacco comment: 8 cigs a day Substance Use Topics ??? Alcohol use: Yes Comment: occasionally Family History Problem Relation Age of Onset ??? Kidney cancer Father Cancer, kidney; ??? Other (renal cancer) Father ??? Hypertension Mother Hypertension; Review of Systems All other systems reviewed and are negative. Objective Vitals: Arrival Vitals [06/24/21 08] Temp 36.2 ??C (97.2 ??F) Pulse 67 Resp 14 BP 121/77 SpO2 100 % Temp src Temporal Heart Rate Source Monitor Patient Position BP Location FiO2 (%) 24hr Min/Max: Temp Min: 36.2 ??C (97.2 ??F) Max: 36.2 ??C (97.2 ??F) Pulse Min: 67 Max: 67 BP Min: 121/77 Max: 121/77 Resp Min: 14 Max: 14 SpO2 Min: 100 % Max: 100 % Most Recent : Vitals: 06/24/21817 BP: 121/77 Pulse: 67 Resp: 14 Temp: 36.2 ??C (97.2 ??F) SpO2: 100% No intake/output data recorded. No intake/output data recorded. Physical Exam Cardiovascular: Rate and Rhythm: Regular rhythm. Pulmonary: Effort: Pulmonary effort is normal. Breath sounds: Normal breath sounds. Abdominal: General: Abdomen is flat. Bowel sounds are normal. Palpations: Abdomen is soft. Neurological: Mental Status: He is alert. Lab/Radiology/Diagnostic Review: No recent results to review Assessment Principal Problem: Healthcare maintenance Patient presents for colonoscopy to rule out polyps. Plan Colonoscopy today to rule out additional polyps after fair prep in April 2020. . documented in this encounter Procedure Notes * Noemi Mccoy MD - 06/24/2021 9:15 AM CDTAssociated Order(s): COLONOSCOPY GI ENDOSCOPY [facility] Patient Name: Yariel Hill Procedure Date: 06/24/2021 9:15 AM Date of : 1970 Admit Type: Outpatient Age: 51 Gender: Male Attending MD: Noemi Mccoy M.D. Room: [facility] ENDOSCOPY ROOM 8 Note Status: Finalized Procedure: Colonoscopy Indications: High risk colon cancer surveillance: Personal history of colonic polyps, Last colonoscopy: April 2020, returns due to inadequate prep rule out small polyps Referring MD: David Feliz M.D. Providers: Noemi [...] verified by the physician, the nurse, the transportation planning technician and the facility maintenance technician in the procedure room. Respiratory [...] was obtained. - Patient identification and proposed procedure were verified prior to the procedure. The procedure was verified in the procedure room. - Prior to the procedure, a History and Physical was performed, and patient medications, allergies and sensitivities were reviewed. The patient's tolerance of previous anesthesia was reviewed. - Immediately prior to administration of medications, the patient was re-assessed for adequacy to receive sedatives. - . - The heart rate, respiratory rate, oxygen saturations, blood pressure, adequacy of pulmonary ventilation, and response to care were monitored throughout the procedure. The benefits, risks and alternatives of the procedure and sedation were discussed and informed consent was obtained. All questions were answered. Please refer to the signed informed consent document in the medical record. The scope was passed under direct vision. The Endoscope was introduced through the anus and advanced to the cecum, identified by appendiceal orifice and ileocecal valve. The colonoscopy was performed without difficulty. The patient tolerated the procedure well. The quality of the bowel preparation was excellent. The quality of the bowel preparation was evaluated using the BBPS ([place] Bowel Preparation Scale) with scores of: Right Colon = 3, Transverse Colon = 3 and Left Colon = 3 (entire mucosa seen well with no residual staining, small fragments of stool or opaque liquid). The total BBPS score equals 9. The bowel preparation used was GoLYTELY via split dose instruction. Bowel prep was administered using a split dose. Findings: The colon (entire examined portion) appeared normal. Internal hemorrhoids were found during retroflexion. The hemorrhoids were mild. Impression: - The entire examined colon is normal. - Internal hemorrhoids. - No specimens collected. Recommendation: - Repeat colonoscopy in 7 years for surveillance since patient had two tubular adenomas removed in April 2020. - Return to primary care physician as previously scheduled. Electronically signed by Noemi Mccoy MD Noemi Mccoy M.D. 06/24/2021 11:10:48 AM . Number of Addenda: 0 Note Initiated On: 06/24/2021 9:15 AM Recognized by the [employer] [place] for promoting quality [...] Procedure Name Priority Date/Time Associated Diagnosis Comments COLONOSCOPY 06/24/2021 9:15 AM CDT COLONOSCOPY 06/24/2021 9:09 AM CDT Screen for colon cancer documented in this encounter Results * COLONOSCOPY (06/24/2021 9:15 AM CDT) Anatomical Region Laterality Modality Other Narrative Procedure Note Noemi Mccoy MD - 06/24/2021 9:15 AM CDT GI ENDOSCOPY [facility] Patient Name: Yariel Hill Procedure Date: 06/24/2021 9:15 AM Date of : 1970 Admit Type: Outpatient Age: 51 Gender: Male Attending MD: Noemi Mccoy M.D. Room: [facility] ENDOSCOPY ROOM 8 Note Status: Finalized [...] were verified by the physician,the nurse, the transportation planning technician and the facility maintenance technician in the procedure room. Respiratory [...] bowel preparation was evaluated using the BBPS ([place] Bowel Preparation Scale)with scores of: Right Colon [...] On: 06/24/2021 9:15 AM Recognized by the [place] for promoting quality in endoscopy Noemi Mccoy MD ENDOSCOPY PROCEDURES Final R esult documented in this encounter Visit Diagnoses Diagnosis Healthcare maintenance Screen for colon cancer Special screening for malignant neoplasms, colon documented in this encounter Admitting Diagnoses Diagnosis Healthcare maintenance documented in this encounter Administered Medications Inactive Administered Medications - up to 3 most recent administrations Medication Order MAR Action Action Date Dose Rate Site sodium chloride 0.9% flush 0.5-20 mL 0.5-20 mL, intra-catheter, As needed, line care, Starting on Tue06/24/21 at 0804, Pre-Procedure (GI), Flush volume based on line type and size. Flush before and after each use. , Indications: FlushingIndications:Flushing sodium chloride 0.9% infusion 30 mL/hr, intravenous, Continuous, Starting on Tue06/24/21 at 0845, Pre-Procedure (GI) Restarted 06/24/2021 9:37 AM CDT Rate/Dose Verify 06/24/2021 9:09 AM CDT 30 mL/h r New Bag 06/24/2021 8:26 AM CDT 30 mL/hr 30 mL/hr documented in this encounter Discontinued Medications Medication Sig Discontinue Reason Start Date End Da te polyethylene glycol 236-22.74-6.74 -5.86 gram solution MIX AND DRINK 4000 ML JUG PER INSTRUCTIONS SENT TO YOU Therapy completed 06/18/2021 06/24/2021 documented as of this encounter Historical Medications * This list may reflect changes made after this encounter. polyethylene glycol 236-22.74-6.74 -5.86 gram solution MIX AND DRINK 4000 ML JUG PER INSTRUCTIONS SENT TO YOU 06/18/2021 added in this encounter Active and Recently Administered Medications Times are shown in CDT. Continuous Medication Order 06/22/2021 06/23/2021 06/24/2021 sodium chloride 0.9% infusion 30 mL/hr, intravenous, Continuous, Starting on Tue06/24/21 at 0845, Pre-Procedure (GI) 0826 (New Bag - Prov ider: Henrietta Baptiste RN)0909 (Rate/Dose Verify - Provider: Vicente Joseph CRNA)0936 (Paused - Provider: Vicente Joseph CRNA - Comment: Switch to gravity)0937 (Restarted - Provider: Vicente Joseph CRNA)1020 (Stopped - Provider: Leila Mireles RN) PRN Medication Order 06/22/2021 06/23/2021 06/24/2021 sodium chloride 0.9% flush 0.5-20 mL 0.5-20 mL, intra-catheter, As needed, line care, Starting on Tue06/24/21 at 0804, Pre-Procedure (GI), Flush volume based on line type and size. Flush before and after each use. , Indications: Flushing documented in this encounter Orders Medications Ordered That Gama ht Not Have Been Administered Count Last Ordered Date First Ordered Date sodium chloride 0.9% flush 0.5-20 mL 1 06/01 documented in this encounter Care Teams Professor In Family Studies Relationship Specialty Start Date End Date David Feliz MD PCP - General 04/18/21 07/26/22 documented as of this encounter
--- OUTSIDE RECORDS SUMMARY | 2024-11-04 22:15 | XMS_ITS | Encounter Summary ---
Author Organization [facility] Address [address] [place] [address] Phone Care Team Providers Care Sales Service Supervisor Name Role Phone Teresita Painting MD Primary Care Prov ider Encounter Details Date Type Department Care Team (Late st Contact Info) Description 05/21/2020 Telephone [facility] Gastroenterology [address] [facility] [address] [place] [address] [place] [phone] Beckie Gustafson Social History Tobacco Use Types Packs/Day Years Used Date Smoking Tobacco: Every Day Cigarettes Smokeless Tobacco: Never Comments:8 cigs a day Alcohol Use Standard Drinks/Week Comments Yes 0 (1 standard drink = 0.6 oz pur e alcohol) occasionally Sex and Gender Information Value Date Recorded Sex Assigned at Not on file Legal Sex Male 2:37 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 Mccoy. Both specimens were tubular adenomas, recommendations to repeat colonoscopy in one year because the prep was only fair. Next colonoscopy will be a two day prep. Patient verbalized understanding. documented in this encounter Plan of Treatment [...] on filedocumented in this encounter Care Teams Sales Service Supervisor Relationship Specialty Start Date End Date Teresita Painting MD PCP - General 10/25/19 04/17/21 documented as of this encounter
--- OUTSIDE RECORDS SUMMARY | 2024-11-04 22:15 | XMS_ITS | Encounter Summary ---
Author Organization [facility] Healthcare Address [address] [place] [address] Care Team Providers Care Tar Distillation Supervisor Name Role Phone Teresita Painting MD Primary Care Prov ider Reason for Visit * Reason Onset Date Comments Follow-up 09/17/2020 Encounter Details Date Type Department Care Team ([facility] Contact Info) Description 09/17/2020 Telephone [facility] [address] [facility] [address] [place] [address] [facility]resita Painting MD [address] [facility] [address] [place], [place] [id number] Follow-up Social History Tobacco Use Types Packs/Day Years Used Date Smoking Tobacco: Every Day Cigarettes Smokeless Tobacco: Never Comments:8 cigs a day Alcohol Use Standard Drinks/Week Comments Yes 0 (1 standard drink = 0.6 oz pur e alcohol) occasionally Sex and Gender Information Value Date Recorded Sex Assigned at Not on file Legal Sex Male 2:37 PM BRAKE ADJUSTER Gender Identity Not on file Sexual Orientation Not on file documented as of this encounter Miscellaneous Notes * Telephone Encounter - Marlin Horan - 09/17/2020 1:[address] Painting, Patient is calling, requesting a orthopedic referral. Marlin E ADJUSTER documented in this encounter Plan of [...] on filedocumented in this encounter Care Teams Tar Distillation Supervisor Relationship Specialty Start Date End Date Teresita Painting MD PCP - General 10/25/19 04/17/21 documented as of this encounter
--- OUTSIDE RECORDS SUMMARY | 2024-11-04 22:15 | XMS_ITS | Encounter Summary ---
Author Organization [facility] Healthcare Address [address] [place] [address] Care Team Providers Care Civil Engineering Director Name Role Phone David Feliz MD Primary Care Provide r Reason for Visit * Reason Onset Date Comments Podiatry Referral 06/17/2021 Encounter Details Date Type Department Care Team ([facility] Contact Info) Description 06/17/2021 Telephone [facility] [address] [place] [address] [address] [place] [address] Cheryl Pickens Podiatry Referral Social History Tobacco Use Types Packs/Day Years Used Date Smoking Tobacco: Every Day Cigarettes Smokeless Tobacco: Never Comments:8 cigs a day Alcohol Use Standard Drinks/Week Comments Yes 0 (1 standard drink = 0.6 oz pur e alcohol) occasionally Sex and Gender Information Value Date Recorded Sex Assigned at Not on file Legal Sex Male 2:37 PM BLOCK CUTTER Gender Identity Not on file Sexual Orientation Not on file documented as of this encounter Miscellaneous Notes * Telephone Encounter - Cheryl Pickens - 06/17/2021 2:[address] Busby, Thank you for your referral on Yariel Hill, 1970. Currently we are scheduling new patients in December for the Podiatry clinic. We will be contacting Yariel Hill in July to discuss scheduling a new patient appointment. Should the patient see a different provider for this diagnosis in the meantime, please let our office know and we will cancel this referral. Thank you, [facility] documented in this encounter Plan of Treatment [...] on filedocumented in this encounter Care Teams Civil Engineering Director Relationship Specialty Start Date End Date David Feliz MD PCP - General 04/18/21 07/26/22 documented as of this encounter
--- OUTSIDE RECORDS SUMMARY | 2024-11-04 22:15 | XMS_ITS | Encounter Summary ---
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 Gender Identity Not on file Sexual [...] Procedure Name Priority Date/Time Associated Diagnosis Comments EGFR Routine 08/19/2021 4:07 PM CDT Primary hypertension HIV 1/2 ANTIBODY PLUS P24 ANTIGEN Routine 08/19/2021 4:07 PM CDT Screening for HIV (human immunodeficiency virus) HEMOGLOBIN A1C Routine 08/19/2021 4:07 PM CDT Screening for diabetes mellitus (DM) HEPATIC FUNCTION PANEL Routine 08/19/2021 4:07 PM CDT Onychomycosis LIPID PANEL Routine 08/19/2021 4:07 PM CDT Hyperlipidemia, unspecified hyperlipidemia type BASIC METABOLIC PANEL Routine 08/19/2021 4:07 PM CDT Primary hypertension documented in this encounter Results * (ABNORMAL) eGFR (08/19/2021 4:07 PM CDT) eGFR 75(L) 90 - 130 mL/min/1.7 3 m2 [facility] Comment: Interpretive Data Reference Interval Normal ?>/= 90 mL/min/1.73m2 Mildly decreased* ? 60 - 89 mL/min/1.73m2 Mildly to moderately decreased ?45 - 59 mL/min/1.73m2 Moderately to severely decreased ??30 - 44 mL/min/1.73m2 Severely decreased ?15 - 29 mL/min/1.73m2 Kidney Failure ?< 15 ??mL/min/1.73m2 *Relative to young adult level Estimated glomerular filtration rate is determined by the CKD-EPI equation recommended by the National Kidney Foundation (KDIGO 2012 Clinical Practice Guideline for the Evaluation and Management of Chronic Kidney Disease. Kidney Intnl Suppl Oct 2012;3:1). The CKD-EPI equation should not be used for patients with unstable renal function and has not been validated in children and those over 70. Current interpretive data was last reviewed 2020 Blood 08/19/2021 4:07 PM CDT 08/19/2021 4:58 PM CDT David Feliz MD LAB BLOOD ORDERABLES Final Result [facility] Department [place] [address] * Lipid panel (08/19/2021 4:07 PM CDT) Pathologist [facility] Cholesterol 112 30 - 199 mg/dL [facility] Comment: Interpretive Data Ages [...] Data was last revised on 2018. Triglycerides 43 <=149 mg/dL [facility] Comment: Interpretive Data [...] Data was last revised on 2018. HDL 56 >=40 mg/dL [facility] Comment: Interpretive Data Ages [...] was last revised on 2018. LDL, calculated 47 <=129 mg/dL [facility] Comment: Interpretive Data Ages < or = [...] was last revised on 2018. Non-HDL Cholesterol 56 mg/dL [facility] Comment: Interpretive Data Ages < or = [...] last revised on 2018. Chol/HDL ratio 2 [facility] Blood 08/19/2021 4:07 PM CDT 08/19/2021 4:58 PM CDT David Feliz MD LAB BLOOD ORDERABLES Final Result [facility] [place] [address] * Basic metabolic panel (08/19/2021 4:07 PM CDT) [facility] Sodium 141 135 - 145 mmol/L [facility] Potassium, pl 4.2 3.3 - 4.9 mmol/L [facility] Comment:Hemolyzed; Potassium value may be falsely elevated by as much as 0.3-0.5 mmol/L. Suggest redraw and reanalysis. Chloride 101 97 - 110 mmol/L [facility] CO2 26 22 - 32 mmol/L [facility] Anion gap 14 2 - 15 mmol/L [facility] BUN 12 8 - 25 mg/dL [facility] Creatinine 1.13 0.80 - 1.30 mg/dL [facility] Glucose 80 70 - 199 mg/dL [facility] Comment: Interpretive Data Fasting glucose >/= 126 [...] interpretive data was last revised 2017. Calcium 9.6 8.5 - 10.3 mg/dL [facility] Blood 08/19/2021 4:07 PM CDT 08/19/2021 4:58 PM CDT David Feliz MD LAB BLOOD ORDERABLES Final Result Performing Organization Address City/[facility]/ZIP Co de Phone Number [facility] Department [place] [address] * Hepatic function panel (08/19/2021 4:07 PM CDT) [facility] Bilirubin, total 0.3 0.1 - 1.2 mg/dL [facility] Bilirubin, direct <0.2 0.1 - 0.3 mg/dL [facility] Protein, pl 7.6 6.5 - 8.5 g/dL [facility] Albumin 4.8 3.5 - 5.0 g/dL [facility] Alk phos 67 40 - 130 Units/L [facility] ALT 20 7 - 55 Units/L [facility] AST 34 10 - 50 Units/L [facility] Comment:Hemolyzed; result ma y be falsely elevated Blood 08/19/2021 4:07 PM CDT 08/19/2021 4:58 PM CDT David Feliz MD LAB BLOOD ORDERABLES Final Result [facility] Department [place] [address] * HIV 1/2 Antibody plus p24 Antigen (08/19/2021 4:07 PM CDT) [facility] HIV 1/2 ab + p24 ag Nonreactive Nonreactive [facility] Comment: Nonreactive for HIV-1 antigen and HIV-1/HIV-2 antibodies. No laboratory evidence of HIV infection. If acute HIV infection is suspected, consider testing for HIV-1 RNA. Blood 08/19/2021 4:07 PM CDT 08/19/2021 4:58 PM CDT David Feliz MD LAB MICROBIOLOGY - NERAL ORDERABLES Final Result [facility] Department [place] [address] * Hemoglobin A1c (08/19/2021 4:07 PM CDT) Hgb A1C 5.1 4.0 - 5.6 % [facility] Estimated Average Glucose 100 mg/dL [facility] Comment: The ADA recommends reporting an estimated Average Glucose (eAG) with all Hemoglobin A1c results using the equation derived from a study of 507 normal and diabetic adults. ??Minority populations were underrepresented and children were not included. ?? (Diabetes Care 2020; 43(S1): S66-S76). ??The eAG is not equivalent to a fasting glucose. Blood 08/19/2021 4:07 PM CDT 08/19/2021 4:57 PM CDT David Feliz MD LAB BLOOD ORDERABLES Final Result [facility] Department [place] [address] documented in this encounter Visit Diagnoses Diagnosis Screening for diabetes mellitus (DM) Screening for diabetes mellitus Screening for HIV (human immunodeficiency virus) Special screening examination for other specified viral diseases Onychomycosis Dermatophytosis of nail Primary hypertension Unspecified essential hypertension Hyperlipidemia, unspecified hyperlipidemia type documented in this encounter Care Teams Italian Tutor Relationship Specialty Start Date End Date David Feliz MD PCP - General 04/18/21 07/26/22 documented as of this encounter
--- OUTSIDE RECORDS SUMMARY | 2024-11-04 22:15 | XMS_ITS | Encounter Summary ---
Author Organization [facility] Address [address] [place] [address] Care Team Providers Care Commercial Lines Insurance Agent Name Role Phone Clare Kasper MD Primary Care Pro vider Reason for Visit * Reason Onset Date Comments Medical Question/Miscellaneous 02/16/2023 Call Back 02/16/2023 Encounter Details Date Type Department Care Team (Late st Contact Info) Description 02/16/2023 Telephone [facility] Primary Care [address] 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 Pt aware. Thanks! * Telephone Encounter - Mary Ann Hernandez - 02/23/2023 2:20 PM CDT Call Back Caller???s Concern: The patient was unable to access the letter through my chart and he needs it faxed. Per patient request please fax to FAX #[phone] Robin Huber. Caller???s Call back #: [phone] Does message need to be routed? Yes-Action Needed * Telephone Encounter - Mia Snyder MA - 02/18/2023 4:52 PM CDT Letter sent thru [facility] * Telephone Encounter - Lizy Birmingham - 02/18/2023 4:18 PM CDT Call Back Caller???s Concern: patient missed a call from Mia and is returning her call. Call warm transferred to the backline. Caller???s Call back #: [phone] Does message need to be routed? No * Telephone Encounter - Dari Rooney MA - 02/18/2023 9:15 AM CDT Call Back Caller???s Concern: pt calling back. He states that letter is fine to go to his mychart. Please inform pt when letter is sent. Caller???s Call back #: [phone] Does message need to be routed? Yes-Action Needed * Telephone Encounter - Clare Kasper MD - 02/17/2023 5:00 PM CDT No available appts with me tomorrow. Can defer if mostly resolved. Ok for letter. Schedule a followup appointment with me or convenient care if doesn't fully resolve or recurs. * Telephone Encounter - Ritika Alvarado. - 02/17/2023 9:41 AM CDT Pt unable to come in today. He would like a call back to see if we can work him in tomorrow. He says that the ear is 99% healed at this time. Please advise. Thanks. [facility] [phone] * Telephone Encounter - Arlene Jurado - 02/17/2023 9:26 AM CDT Call Back Caller???s Concern: pt states that's incorrect - after the ear was cleaned up she never came back in the room but she never physically told him that. Pt attempted to schedule but no appts until 04/19/2023 - pt requesting to speak to a nurse for resolution, Caller???s Call back #: [phone] Does message need to be routed? Yes-Action Needed * Telephone Encounter - Clare Kasper MD - 02/16/2023 4:43 PM CDT Previously advised to follow up in 4d, I have not seen him since 02/04 * Telephone Encounter - Rita Forte - 02/16/2023 9:17 AM CDT Medical Question/Miscellaneous Caller???s Concern: Patient needs a doctors note for work for additional days missed because of hisear. Caller???s Call back #: [phone] Does message need to be routed?Yes-Action Needed documented in this encounter Plan of Treatment [...] on filedocumented in this encounter Care Teams Commercial Lines Insurance Agent Relationship Specialty Start Date End Date Clare Kasper MD PCP - General Family Medicine 07/27/22 documented as of this encounter
--- OUTSIDE RECORDS SUMMARY | 2024-11-04 22:15 | XMS_ITS | Encounter Summary ---
Author Organization [facility] Healthcare Address [address] [place] [address] Care Team Providers Care Commodity Loan Clerk Name Role Phone Teresita Painitng MD Primary Care Prov ider Reason for Visit * Reason Onset Date Comments Follow-up 09/30/2020 Encounter Details Date Type Department Care Team ([facility] Contact Info) Description 09/30/2020 Telephone [facility] Primary Care Medicine Clinic [address] [facility] [address] [place] [address] Teresita Painting MD [address] [facility] [address] [place], [place] [id number] Follow-up Social History Tobacco Use Types Packs/Day Years Used Date Smoking Tobacco: Every Day Cigarettes Smokeless Tobacco: Never Comments:8 cigs a day Alcohol Use Standard Drinks/Week Comments Yes 0 (1 standard drink = 0.6 oz pur e alcohol) occasionally Sex and Gender Information Value Date Recorded Sex Assigned at Not on file 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 Would like to know if he can go to the 4th floor lab? Patient Contact: Marlin R BENDER documented in this encounter Plan of Treatment [...] on filedocumented in this encounter Care Teams Commodity Loan Clerk Relationship Specialty Start Date End Date Teresita Painting MD PCP - General 10/25/19 04/17/21 documented as of this encounter
--- OUTSIDE RECORDS SUMMARY | 2024-11-04 22:15 | XMS_ITS | Encounter Summary ---
Author Organization [facility] Healthcare Address [address] [place] [address] Care Team Providers Care Accounts Payable Specialist Name Role Phone David Feliz MD Primary Care Provide r Encounter Details Date Type Department Care Team (Latest Contact Info) Description 06/24/2021 7:18 AM CDT - 06/24/2021 10:34 AM CDT Hospital Encounter [facility] [address] [place] [address] Noemi Mccoy MD [facility] [address] [facility] [address] [place], [place] [id number] Discharge Disposition: Discharge to home or self [...] on file 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 Gender Identity Not on file Sexual Orientation Not on file documented as of this encounter Last Filed Vital Signs Vital Sign Reading Time Taken Comments Blood Pressure 145/85 06/24/2021 10:14 AM CDT Pulse 53 06/24/2021 10:14 AM CDT Temperature 36.2 ??C (97.2 ??F) 06/24/2021 9:44 AM CD T Respiratory Rate 17 06/24/2021 10:14 AM CDT Oxygen Saturation 100% 06/24/2021 10:14 AM CDT Inhaled Oxygen Concentration - - Weight 54.4 kg (120 lb) 06/24/2021 8:18 AM CDT Height 170.2 cm (5' 7 ) 06/24/2021 8:18 AM CDT Body Mass Index 18.79 06/24/2021 8:18 AM CDT documented in this encounter Discharge Diagnoses Diagnosis Encounter for screening for malignant neoplasm of colon - ENCOUNTER FOR SCREENING FOR MALIGNANT NEOPLASM OF COLON Personal history of colonic polyps - PERSONAL HISTORY OF COLONIC POLYPS Other hemorrhoids - OTHER HEMORRHOIDS Essential (primary) hypertension - ESSENTIAL (PRIMARY) HYPERTENSION Unspecified essential hypertension Vitamin D deficiency, unspecified - VITAMIN D DEFICIENCY, UNSPECIFIED Nicotine dependence, cigarettes, uncomplicated - NICOTINE DEPENDENCE, CIGARETTES, UNCOMPLICATED Family history of malignant neoplasm of kidney - FAMILY HISTORY OF MALIGNANT NEOPLASM OF KIDNEY Family history of ischemic heart disease and other diseases of the circulatory system - FAMILY HISTORY OF ISCHEMIC HEART DISEASE AND OTHER DISEASES OF THE CIRCULATORY SYSTEM Other group home (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 - OTHER LONGTERM (CURRENT) DRUG THERAPY documented in this encounter Medications at Time [...] and are negative. Objective Vitals: Arrival Vitals [06/24/21817] Temp 36.2 ??C (97.2 ??F) Pulse 67 [...] Attending MD: Noemi Mccoy M.D. Room: [facility] ENDOSCOPY ROOM 8 Note Status: Finalized Procedure: [...] verified by the physician, the nurse, the carburetor rebuilder and the trailer technician in the procedure room. Respiratory Examination: [...] bowel preparation was evaluated using the BBPS ([place] Bowel Preparation Scale) with scores of: Right [...] On: 06/24/2021 9:15 AM Recognized by the [employer] for promoting quality [...] Attending MD: Noemi Mccoy M.D. Room: [facility] ENDOSCOPY ROOM 8 Note Status: Finalized Procedure: [...] were verified by the physician,the nurse, the carburetor rebuilder and the trailer technician in the procedure room. Respiratory Examination: [...] bowel preparation was evaluated using the BBPS ([place] Bowel Preparation Scale)with scores of: Right Colon [...] On: 06/24/2021 9:15 AM Recognized by the [employer] for promoting quality in endoscopy Noemi Mccoy MD ENDOSCOPY PROCEDURES Final R esult documented in this encounter Visit Diagnoses Diagnosis Healthcare maintenance documented in this encounter Admitting [...] JUG PER INSTRUCTIONS SENT TO YOU 06/18/2021 1 added in this encounter Active and Recently [...] Comment: Switch to gravity)0937 (Restarted - Provider: Vicenet Joseph CRNA)1020 (Stopped - Provider: Leila Mireles [...] 06/01 documented in this encounter Care Teams Accounts Payable Specialist Relationship Specialty Start Date End Date David Feliz MD PCP - General 04/18/21 07/26/22 documented as of this encounter
--- OUTSIDE RECORDS SUMMARY | 2024-11-04 22:15 | XMS_ITS | Encounter Summary ---
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 Name Role Phone Scar Medina MD Primary Care Pro vider Reason for Referral * Consultation (Routine) - Closed Specialty Diagnoses / Procedures Referred By Litzy mccracken Referred To Contact Cardiology Diagnoses Palpitations ST segment changes on electrocardiography Scar Medina MD [facility] [address] [address] Phone: tel: fax: [facility] Cardiology [address] [place] [address] [place] [phone] Phone: tel: fax: Referral ID Status Reason Start Date Expiration Date V isits Requested Visits Authorized [id number] Closed Specialty Services Required 10/26/2023 11/24/2024 1 1 Question Answer Please select the performing region: [facility] [[id number]] Please select the performing department: [facility] [[id number]] # of visits: 1 FIRST * Cardiology (Routine) - Closed Specialty Diagnoses / Procedures Referred By Litzy mccracken Referred To Contact Diagnoses Palpitations Procedures ECG 12 lead Scar Medina MD [facility] [place] [address] Phone: tel: fax: [facility] [address] [place] [address] Referral ID Status Reason Start Date Expiration Date Visits Re quested Visits Authorized [id number] Closed 10/25/2023 11/23/2024 1 1 FIRST Reason for Visit * Reason Comments Annual Exam Encounter Details Date Type Department Care Team (Latest Contact Info) Description 10/25/2023 1:45 PM MATE FIRST Office Visit [facility] Primary Care at [place] [address] [facility] [address] [place] [address] Scar Medina MD [address] [facility] [address] [place] [address] Annual physical exam (Primary Dx); Smoking; Alcohol abuse; Gastroesophageal reflux disease, unspecified whether esophagitis present; Primary hypertension; Hyperlipidemia, unspecified hyperlipidemia type; Primary insomnia; Thrombocytopenia (HCC); Elevated AST (SGOT); Palpitations; ST segment changes on electrocardiography; Acute upper respiratory infection Social History Tobacco Use Types Packs/Day Years [...] on file Legal Sex Male 2:37 PM MATE FIRST Gender Identity Not on file Sexual Orientation Not on file documented as of this encounter Last Filed Vital Signs Vital Sign Reading Time Taken Comments Blood Pressure 134/78 10/25/2023 1:58 PM MATE FIRST Pulse 99 10/25/2023 1:58 PM MATE FIRST Temperature 37.6 ??C (99.6 ??F) 10/25/2023 1:58 PM CS T Respiratory Rate 18 10/25/2023 1:58 PM MATE FIRST Oxygen Saturation 99% 10/25/2023 1:58 PM MATE FIRST Inhaled Oxygen Concentration - - Weight 53.8 kg (118 lb 9.6 oz) 10/25/2023 1:58 P M MATE FIRST Height 170.2 cm (5' 7 ) 10/25/2023 1:58 PM MATE FIRST Body Mass Index 18.58 10/25/2023 1:58 PM MATE FIRST documented in this encounter Ordered Prescriptions Prescription Sig Dispense Quantity Refills Last Filled Start Date End Date buPROPion SR (WELLBUTRIN SR) 150 mg 12 hr tabletIndications: Smoking Take 1 tablet (150 mg total) by mouth 2 (two) times a day 60 tablet 2 10/25/2023 omeprazole (PriLOSEC) 20 mg capsuleIndications :Gastroesophageal reflux disease, unspecified whether esophagitis present Take 1 capsule daily for 8 weeks. Then take 1 capsule every other day for 2 weeks then stop. 63 capsule 10/25/2023 amLODIPine (NORVASC) 10 mg tabletIndications: Primary hypertension Take 1 tablet (10 mg total) by mouth daily 90 tablet 1 10/25/2023 4 naltrexone (DEPADE) 50 mg tabletIndications: Alcohol abuse Take 1 tablet (50 mg total) by mouth daily 90 tablet 10/25/2023 4 documented in this encounter Progress Notes * Scar Medina MD - 10/25/2023 1:45 PM CST Images from the original note were not included. Assessment/Plan: Assessment/Plan Diagnoses and all orders for this visit: Annual physical exam (Primary) Assessment & Plan: Reviewed PMH & FH Phq reviewed Reviewed medications and supplements HCM: orders placed as needed Orders: - RPR Blood; Future - N. gonorrhoeae/C. trachomatis Amplification Urine; Future - Hepatitis panel, acute Blood; Future - HIV 1/2 Antibody plus p24 Antigen Blood; Future - Comprehensive metabolic panel; Future - CBC with auto differential; Future - TSH; Future Smoking Assessment & Plan: Encourage cessation, he is interested in starting wellbutrin Orders: - buPROPion SR (WELLBUTRIN SR) 150 mg 12 hr tablet; Take 1 tablet (150 mg total) by mouth 2 (two) times a day Alcohol abuse Assessment & Plan: Encourage cessation, he is interested in trying naltrexone Orders: - naltrexone (DEPADE) 50 mg tablet; Take 1 tablet (50 mg total) by mouth daily Gastroesophageal reflux disease, unspecified whether esophagitis present Assessment & Plan: Uncontrolled Restart omeprazole Orders: - omeprazole (PriLOSEC) 20 mg capsule; Take 1 capsule daily for 8 weeks. Then take 1 capsule every other day for 2 weeks then stop. Primary hypertension Assessment & Plan: Blood pressure controlled continue 10mg amlodipine Orders: - amLODIPine (NORVASC) 10 mg tablet; Take 1 tablet (10 mg total) by mouth daily - Comprehensive metabolic panel; Future Hyperlipidemia, unspecified hyperlipidemia type Assessment & Plan: Continue statin Orders: - Lipid panel; Future Primary insomnia Assessment & Plan: Trazodone as needed Thrombocytopenia (HCC) - CBC with auto differential; Future Elevated AST (SGOT) - Comprehensive metabolic panel; Future Palpitations Comments: not present currently RRR on exam EKG ordered as well as cmp to check electrolytes and cbc to check for anemia Orders: - ECG 12 lead; Future - Ambulatory referral to Cardiology; Future ST segment changes on electrocardiography - Ambulatory referral to Cardiology; Future Acute upper respiratory infection Comments: checked for COVID/flu recommend supportive treatment, if not improving by next week let me know or sooner if worsening Orders: - POC Influenza A/B, COVID-19 antigen Return in about 2 months (around 12/26/2023) for Recheck. or sooner as needed if symptoms not improving or worsen. Strict return/ED precautions discussed. Separate distinct encounter to address uncontrolled GERD, alcohol and tobacco abuse as well as new onset URI Subjective: Yariel Hill is a 53 y.o. male here for Chief Complaint Patient presents with Annual Exam HPI Started sneezing and having pruritus of eyes yesterday after visiting mom who was wearing strong perfume. Also notes rhinorrhea Hypertension: on amlodipine 10mg Hyperlipidemia: on rosuvastatin 20mg for several months without leg pain Smoking 8-10 cigarettes/day. Has tried gum and patches Alcohol abuse: started drinking Tuesday and had a few yesterday. Prior to that last drink in Jul. Previously given prescription from naltrexone from ED, but he never took. GERD: having recurrent symptoms recently Insomnia: on trazodone as needed Review of Systems HENT: Positive for rhinorrhea and sneezing. Cardiovascular: Positive for chest pain (not present currently) and palpitations (not present currently). Gastrointestinal: Negative for blood in stool. Genitourinary: Negative for hematuria. Skin: Negative for rash. Neurological: Positive for headaches. Negative for dizziness and light-headedness. Psychiatric/Behavioral: Positive for sleep disturbance. Negative for dysphoric mood, self-injury and suicidal ideas. The patient is not nervous/anxious. Objective: Vital signs were reviewed. Vitals: 10/25/23 1358 BP: 134/78 BP Location: Left arm Patient Position: Sitting Pulse: 99 Resp: 18 Temp: 37.6 ??C (99.6 ??F) TempSrc: Temporal SpO2: 99% Weight: 53.8 kg (118 lb 9.6 oz) Height: 170.2 cm (5' 7 ) Physical Exam Gen: NAD, comfortable, appears as stated age Eyes: no conjunctival injection, EOMI ENMT: external ears symmetric, L tympanic membranes and oropharynx within normal limits, R tympanicmembranes obstructed CV: RRR without murmur, rub, gallop. Pulm: good respiratory effort, CTAB no rhonchi, rales, or wheezes Abd: soft, non-tender, non-distended, bowel sounds present Skin: no rashes or nodules, warm and dry Ext: No lower extremity edema MSK/Neuro: symmetric limb movement, normal gait Psych: alert and oriented to person/place/time, appropriate judgment and insight Scar Medina MD FIRST FIRST documented in this encounter Miscellaneous Notes * Assessment & Plan Note - Scar Medina MD - 10/25/2023 2:42 PM CSTAssociated Problem(s): Hyperlipidemia Continue statin FIRST * Assessment & Plan Note - Scar Medina MD - 10/25/2023 2:42 PM CSTAssociated Problem(s): Alcohol use disorder Encourage cessation, he is interested in trying naltrexone FIRST * Assessment & Plan Note - Scar Medina MD - 10/25/2023 2:41 PM CSTAssociated Problem(s): Primary insomnia Trazodone as needed FIRST * Assessment & Plan Note - Scar Medina MD - 10/25/2023 2:36 PM CSTAssociated Problem(s): GERD (gastroesophageal reflux disease) Uncontrolled Restart omeprazole FIRST * Assessment & Plan Note - Scar Medina MD - 10/25/2023 2:35 PM CSTAssociated Problem(s): Smoking Encourage cessation, he is interested in starting wellbutrin FIRST FIRST * Assessment & Plan Note - Scar Medina MD - 10/25/2023 2:15 PM CSTAssociated Problem(s): Hypertension Blood pressure controlled continue 10mg amlodipine FIRST * Assessment & Plan Note - Scar Medina MD - 10/25/2023 2:15 PM CSTAssociated Problem(s): Annual physical exam Reviewed PMH & FH Phq reviewed Reviewed medications and supplements HCM: orders placed as needed FIRST * Addendum Note - Mia Snyder MA - 10/25/2023 1:45 PM CSTAddended by: MIA SNYDER on: 10/25/2023 04:53 PM Modules accepted: Orders FIRST * Addendum Note - Scar Medina MD - 10/25/2023 1:45 PM MATE FIRST Addended by: SCAR MEDINA on: 10/26/2023 11:16 AM Modules accepted: Orders FIRST documented in this encounter Plan of Treatment Scheduled Referrals Name Type Priority Associated Diagnoses Orde r Schedule Ambulatory referral to Cardiology Outpatient Referral Routine Palpitations ST segment changes on electrocardiography Expected: 11/09/2023 (Approximate), Expires: 10/26/2024 documented as of this encounter Goals Goal [...] Procedure Name Priority Date/Time Associated Diagnosis Comments POC INFLUENZA A/B, COVID-19 ANTIGEN Routine 10/25/2023 3:03 PM MATE FIRST Acute upper respiratory infection documented in this encounter Results * Lipid panel (10/25/2023 4:27 PM MATE FIRST) [facility] Cholesterol 133 30 - 199 mg/dL [facility] Comment: Interpretive Data Ages [...] last revised on 2018. Testing performed by: [facility], [address] [place] [address]., [address] Triglycerides 91 <=149 mg/dL [facility] Comment: Interpretive Data Ages [...] last revised on 2018. Testing performed by: [address] [address] HDL 59 >=40 mg/dL [facility] Comment: Interpretive Data Ages [...] last revised on 2018. Testing performed by: [address] [address] LDL, calculated 56 <=129 mg/dL [facility] Comment: Interpretive Data Ages [...] last revised on 2018. Testing performed by: [address] [address] Non-HDL Cholesterol 74 mg/dL [facility] Comment: [...] last revised on 2018. Testing performed by: [address] [address] Chol/HDL ratio 2 [facility] Comment:Testing performed by : [address] [address] Blood 10/25/2023 4:27 PM MATE FIRST 10/25/2023 5:04 PM MATE FIRST us Scar Medina MD LAB BLOOD ORDERAB LES Final Result [facility] [address] [facility] Department [place] [address] * TSH (10/25/2023 4:27 PM MATE FIRST) Thyroid Stimulating Hormone 2.71 0.30 - 4.20 mcIUnit/mL [facility] Comment:Testing performed by : [address] [address] Blood 10/25/2023 4:27 PM MATE FIRST 10/25/2023 5:04 PM MATE FIRST us Scar Medina MD LAB BLOOD ORDERAB LES Final Result [facility] [address] [facility] Department [place] [address] * (ABNORMAL) CBC with auto differential (10/25/2023 4:27 PM MATE FIRST) WBC 13.5(H) 3.8 - 9.9 K/cumm [facility] Comment:Testing performed by : [address] [address] Hgb 14.8 13.0 - 17.5 g/dL [facility] Comment:Testing performed by : [address] [address] Hct 42.5 38.9 - 50.3 % [facility] Comment:Testing performed by : [address] [address] Plt 200 150 - 400 K/cumm [facility] Comment:Testing performed by : [address] [address] MPV 9.0(L) 9.1 - 12.3 fL [facility] Comment:Testing performed by : [address] [address] RBC 4.55 4.30 - 5.80 M/cumm [facility] Comment:Testing performed by : [address] [address] MCV 93.4 81.3 - 96.4 fL [facility] Comment:Testing performed by : [address] [address] MCH 32.5 27.1 - 33.3 pg [facility] Comment:Testing performed by : [address] [address] MCHC 34.8 32.3 - 35.7 g/dL [facility] Comment:Testing performed by : [address] [address] RDW CV 13.2 11.1 - 14.9 % [facility] Comment:Testing performed by : [address] [address] RDW SD 45.8 35.7 - 48.1 fL [facility] Comment:Testing performed by : [address] [address] NRBC abs 0.00 0.00 - 0.01 K/cumm [facility] Comment:Testing performed by : [address] [address] Blood 10/25/2023 4:27 PM MATE FIRST 10/25/2023 5:04 PM MATE FIRST Scar Medina MD LAB BLOOD ORDERAB LES Final Result [facility] [address] [facility] Department [place] [address] * (ABNORMAL) Comprehensive metabolic panel (10/25/2023 4:27 PM MATE FIRST) Sodium 140 135 - 145 mmol/L [facility] Comment:Testing performed by : [address] [address] Potassium, pl 4.2 3.3 - 4.9 mmol/L [facility] Comment:Testing performed by : [address] [address] Chloride 101 97 - 110 mmol/L [facility] Comment:Testing performed by : [address] [address] CO2 24 22 - 32 mmol/L [facility] Comment:Testing performed by : [address] [address] Anion gap 15 2 - 15 mmol/L [facility] Comment:Testing performed by : [address] [address] BUN 10 6 - 25 mg/dL [facility] Comment:Testing performed by : [address] [address] Creatinine 1.00 0.80 - 1.30 mg/dL [facility] Comment:Testing performed by : [address] [address] Glucose 69(L) 70 - 199 mg/dL [facility] Comment: Interpretive Data Fasting glucose >/= [...] was last revised 2022. Testing performed by: [address] [address] Calcium 10.1 8.5 - 10.3 mg/dL [facility] Comment:Testing performed by : [address] [address] Bilirubin, total 0.6 0.1 - 1.2 mg/dL [facility] Comment:Testing performed by : [address] [address] Protein, pl 8.0 6.5 - 8.5 g/dL [facility] Comment:Testing performed by : [address] [address] Albumin 5.0 3.5 - 5.0 g/dL [facility] Comment:Testing performed by : [address] [address] Alk phos 79 40 - 130 Units/L [facility] Comment:Testing performed by : [address] [address] ALT 13 7 - 55 Units/L [facility] Comment:Testing performed by : [address] [address] AST 28 10 - 50 Units/L [facility] Comment:Testing performed by : [facility], [address] [place] [address]., [address] Blood 10/25/2023 4:27 PM MATE FIRST 10/25/2023 5:04 PM MATE FIRST Scar Medina MD LAB BLOOD ORDERAB LES Final Result Performing Organization Address City/[facility] Co de Phone Number C[facility] [address] [address] * HIV 1/2 Antibody plus p24 Antigen Blood (10/25/2023 4:27 PM MATE FIRST) HIV 1/2 ab + p24 ag Nonreactive Nonreactive [facility] Comment:Nonreactive for HIV- 1 antigen and HIV-1/HIV-2 antibodies. No laboratory evidence of HIV infection. If acute HIV infection is suspected, consider testing for HIV-1 RNA. Current interpretive data was last revised on 22. Blood 10/25/2023 4:27 PM MATE FIRST 10/25/2023 6:37 PM MATE FIRST Scar Medina MD LAB MICROBIOLOGY - GENERAL ORDERABLES Final Result Performing Organization Address [facility] Co de Phone Number [facility] [address] [place] [address] * Hepatitis panel, acute Blood (10/25/2023 4:27 PM MATE FIRST) Pathologist [facility] Hep A IgM Nonreactive Nonreactive [facility] Comment: [...] Nonreactive Nonreactive [facility] Blood 10/25/2023 4:27 PM MATE FIRST 10/25/2023 6:37 PM MATE FIRST Scar Medina MD LAB MICROBIOLOGY - GENERAL ORDERABLES Final Result Performing Organization Address [facility] de Phone Number [facility] [employer] [place] [employer] [address] * N. gonorrhoeae/C. trachomatis Amplification Urine (10/25/2023 4:27 PM MATE FIRST) C. trachomatis Not Detected Not Detected [facility] Comment:Testing performed by : [facility], [address] [place] [address]., [address] N. gonorrhoeae Not Detected Not Detected [facility] Comment: Interpretive Data This assay detects Chlamydia trachomatis and Neisseria gonorrhoeae by nucleic acid amplification testing (NAAT). This assay has been cleared by the [place] Food and Drug administration. The performance characteristics of this test have been verified by the [facility]. The performance characteristics of this test have not been evaluated in individuals less than 14 years of age. Current Interpretive Data last revised 2023. Testing performed by: [facility], [address] [place] [address]., [address] Urine (None) 10/25/2023 4:27 PM MATE FIRST 10/25/2023 7:32 PM MATE FIRST Scar Medina MD LAB MICROBIOLOGY - GENERAL ORDERABLES Final Result Performing Organization Address City/[facility] Co de Phone Number [facility] [address] [place] [address] [place] [address] * RPR Blood (10/25/2023 4:27 PM MATE FIRST) RPR Nonreactive Nonreactive [facility] Comment:Testing performed by : [facility], [address] [facility], [place]., [address] Blood 10/25/2023 4:27 PM MATE FIRST 10/25/2023 7:34 PM MATE FIRST Scar Medina MD LAB MICROBIOLOGY - GENERAL ORDERABLES Final Result Performing Organization Address City/[facility]/ZIP Co de Phone Number C[facility]ST[facility] [address] [address] * ECG 12 lead (10/25/2023 3:52 PM MATE FIRST) Ventricular Rate EKG/Min 69 BPM [facility] Atrial Rate 69 BPM [facility] MS-Interval (MSEC) 114 ms [facility] QRS-Interval (MSEC) 72 ms [facility] QT-Interval (MSEC) 372 ms [facility] QTc 398 ms [facility] P [place] 70 degrees [facility] R [place] -13 degrees [facility] T [place] 37 degrees [facility] Diagnosis Normal sinus rhythm ST-changes When compared with ECG of 12-NOV-2004 00:08, ST-changes are now Confirmed by SULTAN HALL M.D. ([id number]) on 10/25/2023 6:00:40 PM [facility] 10/25/2023 3:52 PM MATE FIRST 10/25/2023 6:00 PM MATE FIRST Scar Medina MD ECG ORDERABLES F inal Result [facility] * POC Influenza A/B, COVID-19 antigen (10/25/2023 3:03 PM MATE FIRST) Influenza A Ag, POC Negative Negative [facility] [place] [address] Influenza B Ag, POC Negative Negative [facility] [place] [address] COVID-19 Ag POC Presumptive Negative Presumptive Negative, Invalid [facility] [place] [address] Nasopharyngeal 10/25/2023 3: 03 PM MATE FIRST us Scar Medina MD POINT OF CARE [place] T ORDERABLES Final Result [facility] [address] documented in this encounter Visit Diagnoses Diagnosis Annual physical exam- Primary Routine general medical examination at a health care facility Smoking Tobacco use disorder Alcohol abuse Nondependent alcohol abuse, unspecified drinking behavior Gastroesophageal reflux disease, unspecified whether esophagitis present Primary hypertension Unspecified essential hypertension Hyperlipidemia, unspecified hyperlipidemia type Primary insomnia Persistent disorder of initiating or maintaining sleep Thrombocytopenia (HCC) Unspecified thrombocytopenia Elevated AST (SGOT) Palpitations ST segment changes on electrocardiography Acute upper respiratory infection Acute upper respiratory infections of unspecified site documented in this encounter Discontinued Medications Medication Sig Discontinue Reason Start Date End Da te chlordiazePOXIDE (LIBRIUM) 25 mg capsuleIndications:Alcoh ol Withdrawal Syndrome 5/3: Take 2 capsules every 6 hours 5/4: Take 2 capsules every 8 hours 5/5: Take 1 capsule every 8 hours 5/6: Take 1 capsule twice daily 5/7: Take 1 capsule once daily Therapy completed 03/01/2023 10/25/2023 omeprazole (PriLOSEC) 20 mg capsule Take 1 capsule (20 mg total) by mouth daily 10/25/2023 amLODIPine (NORVASC) 10 mg tabletIndications:Primar y hypertension Take 1 tablet (10 mg total) by mouth daily Reorder 01/24/2023 10/25/2023 documented as of this encounter Historical Medications * This list may reflect changes made after this encounter. 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
--- OUTSIDE RECORDS SUMMARY | 2024-11-04 22:15 | XMS_ITS | Encounter Summary ---
Author Organization [facility] Healthcare Address [address] [place] [address] Care Team Providers Care Special Diet Cook Name Role Phone Clare Kasper MD Primary Care Pro vider Reason for Visit * Reason Onset Date Comments Medication Request 08/03/2023 Call Back 08/03/2023 Encounter Details Date Type Department Care Team ([facility] st Contact Info) Description 08/03/2023 Telephone [facility] Primary Care at [address] [phone] Clare Kasper MD [address] [place] [id number] Medication Request; Call Back Social History Tobacco Use Types [...] staff should administer the PHQ-9) 0 07/27/2022 Personal Safety Answer Date Recorded Have you ever been in or are you currently in a harmful physical or emotional relationship or is someone making you feel afraid or unsafe? 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 JEANETH provided patient with different locations for [facility] near him. Patient stated he will check one out as he is working early and staying late. Caller???s Call back #: [phone] Does message need to be routed? No * Telephone Encounter - Mia Snyder MA - 08/03/2023 1:10 PM CDT Tried calling pt. LMOV. Pt is needing to be seen before any medication is sent to pharmacy. Please direct him to [facility] for evaluation. * Telephone Encounter - Lizy Birmingham - 08/03/2023 12:24 PM CDT Medication Question/Clarification Medication Name(s): Doxycycline What is the question or clarification needed? Patient is asking if dr kasper will prescibe him this medication again for an allergic reaction, inflamed skin behind/under his ear, where Dr Kasper had to lalita it in January 2023. Patient also has a rash on his body, from laundry detergent he was using. Patient states this medication really helped him when he took it in January. Patient would like a call back letting him know if an Rx will be sent in. If needed, Pharmacy(s) medication(s) should be sent to: pharmacy on file [id number] Caller???s Callback #: [phone] Additional Comments: NA Does message need to be routed? Yes-Action Needed documented in this encounter Plan of [...] on filedocumented in this encounter Care Teams Special Diet Cook Relationship Specialty Start Date End Date Clare Kasper MD PCP - General Family Medicine 07/27/22 documented as of this encounter
--- OUTSIDE RECORDS SUMMARY | 2024-11-04 22:15 | XMS_ITS | Encounter Summary ---
Author Organization [facility] Healthcare Address [address] [place] [address] Care Team Providers Care Tailer In Name Role Phone Teresita Painting MD Primary Care Prov ider Encounter Details Date Type Department Care Team (Late st Contact Info) Description 05/14/2020 10:59 AM CDT Anesthesia Event [facility] [place] [address] [facility] [address] [place] [address] Regine Fernandez MD PhD [address] [place] [address] Yariel Ceron, OCTAVIA [address] [place] [address] Anesthesia Record Procedure Summary Procedure Name Responsible Anesthesiologist Anesthesia Start Time Anesthesia Stop Time COLON BIOPSY (Colon) Regine Fernandez MD PhD 05/14/20 1059 05/14/20 1158 Events Date Time Event Comment 05/14/2020 1004 1059 An Start 1059 An Start Data 1100 In Room 1102 Start Supplemental O2 1103 An Induction The patient was reevaluated immediately before moderate or deep sedation use and before anesthesia induction. 1106 Proc Start 1106 Anesthesia Ready 1150 Proc Fin 1153 Out of Room 1158 Handoff to RN I completed my handoff [...] disposition at the time of handoff: PACU 1158 An Stop 1228 Release from care Meds Name Total lidocaine 1 % PF 50 mg propofol 90 mg propofol 364.58 mg sodium chloride 0.9% infusion 800 mL * Agents Name O2% N2O O2 * Blood No blood administrations on file. Lines, Drains, and Airways Type Details Placement Removal Peripheral IV Placement Date: 04/30 03/19; Placement Time: 956; Catheter Size: 22 G; Orientation: Right; Location: Forearm; Site Prep: Chlorhexidine; Technique: Anatomical landmarks; Insertion Attempts: 1; Patient Tolerance: Tolerated well; Removal Date: 05/14/20; Removal Time: 12205/14/20 09 by Ashley Dawkins RN 05/14/20 122 by [place] Sheffield RN documented in this encounter Social History Tobacco Use Types Packs/Day Years Used Date Smoking Tobacco: Every Day Cigarettes Smokeless Tobacco: Never Comments:8 cigs a day Alcohol Use Standard Drinks/Week Comments Yes 0 (1 standard drink = 0.6 oz pur e alcohol) occasionally Sex and Gender Information Value Date Recorded Sex Assigned at Not on file 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 Gender Identity Not on file Sexual Orientation Not on file documented as of this encounter OR Notes * Anesthesia Postprocedure Evaluation - Melonie Massey MLT - 05/14/2020 12:28 PM CDT Patient: Yariel Hill Procedure Summary Date: 05/14/20 Room / Location: [facility] ROOM 4 / [facility] Anesthesia Start: 1059 Anesthesia Stop: 115 Procedure: COLON BIOPSY (N/A Colon) Diagnosis: Healthcare maintenance (Healthcare maintenance [Z00.00]) Provider: Noemi Mccoy MD Responsible Provider: Regine Fernandez MD PhD Anesthesia Type: MAC ASA Status: 2 Anesthesia Type: MAC Last vitals BP 134/74 (BP Location: Left arm, Patient Position: Lying) Pulse 67 Temp 36.5 ??C (97.7 ??F) (Temporal) Resp 14 SpO2 100% Anesthesia Post Evaluation Patient location during evaluation: PACU Patient participation: complete - patient participated Level of consciousness: fully awake Pain score: 0 Pain management: adequate Airway patency: adequate Evidence of recall: no Anesthetic complications: no Cardiovascular status: acceptable and hemodynamically stable Respiratory status: acceptable and room air Hydration status: acceptable Pt is: normothermic Nausea/Vomiting status: none Cosigned by Regine Fernandez MD PhD at 05/14/2020 4:15 PM CDT * Anesthesia Preprocedure Evaluation - Melonie Massey MLT - 05/14/2020 10:01 AM CDT Images from the original note were not included. Anesthesia Evaluation Yariel Hill is a 50 y.o. male Procedure(s): COLONOSCOPY OPEN ACCESS Pre-Op Diagnosis Codes: * Healthcare maintenance [Z00.00] Patient Active Problem List Diagnosis ??? Vitamin D deficiency ??? Smoking ??? Alcohol abuse ??? Hypertension ??? Healthcare maintenance ??? Anemia ??? Allergic rhinitis Past Medical History: Diagnosis Date ??? Anemia ??? Anxiety ??? Hypertension ??? Pancreatitis Past Surgical History: Procedure Laterality Date ??? CARPAL TUNNEL RELEASE Left 2007 No Known Allergies Taking? Last Dose Start Date End Date Provider amLODIPine (NORVASC) 5 mg tablet 05/13/2020 10/26/19 10/25/20 Teresita Painting MD Take 1 tablet (5 mg total) by mouth daily cetirizine (ZyrTEC) 10 mg tablet More than a month 07/06/19 07/05/20 Teresita Painting MD Take 1 tablet (10 mg total) by mouth daily as needed for allergies chlordiazePOXIDE (LIBRIUM) 25 mg capsule 05/14/2020 12/08/19 05/14/20 Yariel Perez MD PhD Take 2 capsules (50 mg total) by mouth 3 (three) times a day for 3 days cholecalciferol (Vitamin D3) 2000 unit capsule Past Week 04/22/20 04/22/21 Teresita Painting MD Take 1 capsule (2,000 Units total) by mouth daily ergocalciferol (VITAMIN D) 50,000 unit capsule Unknown 04/22/20 06/17/20 Teresita Painting MD Take 1 capsule (50,000 Units total) by mouth once a week Notes: 50,000 units weekly for 8 weeks then 2000 units/day fluticasone (FLONASE) 50 mcg/actuation nasal spray () More than a month 09/29/18 09/29/19 Teresita Painting MD Administer 2 sprays into each nostril daily. polyethylene glycol (GoLYTELY) 236-22.74-6.74 -5.86 gram solution 05/01/20 05/14/20 Noemi Mccoy MD Drink Nulytely 1/2 jug at 6 PM on 05/13/2020 and Drink Nulytely 1/2 jug 0300 AM on 05/14/2020 Notes: One jug Current Facility-Administered Medications: ??? sodium chloride 0.9% flush 0.5-20 mL, 0.5-20 mL, intra-catheter, PRN ??? sodium chloride 0.9% infusion, 30 mL/hr, intravenous, Continuous, Last Rate: 30 mL/hr at 05/14/20 0958, 30 mL/hr at 05/14/20 0958 Social History Tobacco Use Smoking Status Current Every Day Smoker ??? Packs/day: 0.40 ??? Types: Cigarettes Smokeless Tobacco Never Used Tobacco Comment 8 cigs a day Substance and Sexual Activity Alcohol Use Yes Comment: occasionally Substance and Sexual Activity Drug Use Never Family History Problem Relation Age of Onset ??? Kidney cancer Father Cancer, kidney; ??? Hypertension Mother Hypertension; Vitals: 05/14/20 0941 BP: 153/80 Pulse: 100 Resp: 14 Temp: 36.7 ??C (98.1 ??F) SpO2: 100% PT: No results found [...] the findings of the procedural assessment dated: 05/14/2020. Airway Exam: Mallampati: III Cervical ROM: FROM Dental Exam: Appears intact Current state: Patient's current state is cooperative and interactive. Additional comments: See [facility] H&P Anesthesia Plan ASA 2 My patient is approved for the Anesthesia Controlled Medication protocol when under care of a MAINTENANCE APPRENTICE Planned anesthesia: MAC Induction: Induction: intravenous. Postoperative Plan: Patient's planned disposition post procedure is Outpatient. Informed Consent: Discussed plan with MAINTENANCE APPRENTICE. Anesthesia plan and risks discussed with patient. Plan and Consent Comments: NPO status confirmed METS > than 4. IMelonie, am scribing for, and in the presence of Dr. Fernandez. . Consent and Attending signature: I and/or my designee have discussed the anesthesia plan, benefits, possible alternatives, parental presence at time of induction (if indicated), and clinically relevant risks that may include dental injury, unintentional awareness, and/or other complications. The patient and/or parent/legal guardian understand, and agree to proceed. All questions answered. Cosigned by Regine Fernandez MD PhD at 05/14/2020 4:16 PM CDT documented in this encounter Plan of [...] Action Action Date Dose Rate Site lidocaine PF (XYLOCAINE) 10 mg/mL (1 %) preservative free injection As needed, Starting on Tue05/14/20 at 1103, Anesthesia Intra-op Given 05/14/2020 11:03 AM CDT 50 mg propofoL (DIPRIVAN) IV intravenous, As needed, Starting on Tue05/14/20 at 1103, Anesthesia Intra-op Given 05/14/2020 11:05 AM CDT 20 mg Given 05/14/2020 11:04 AM CDT 20 mg Given 05/14/2020 11:03 AM CDT 50 mg propofoL (DIPRIVAN) IV intravenous, Continuous PRN, Starting on Tue05/14/20 at 1103, Anesthesia Intra-op Rate/Dose Change 05/14/2020 11:35 AM CDT 100 mcg/kg/min 34.86 mL/hr Rate/Dose Change 05/14/2020 11:24 AM CDT 130 mcg/kg/min 45 .32 mL/hr Rate/Dose Change 05/14/2020 11:19 AM CDT 150 mcg/kg/min 52 .29 mL/hr documented in this encounter Care Teams Tailer In Relationship Specialty Start Date End Date Teresita Painting MD PCP - General 10/25/19 04/17/21 documented as of this encounter
--- OUTSIDE RECORDS SUMMARY | 2024-11-04 22:15 | XMS_ITS | Encounter Summary ---
Author Organization [facility] Healthcare Address [address] [place] [address] Care Team Providers Care Denture Finisher Name Role Phone David Feliz MD Primary Care Provide r Reason for Visit * Reason Comments Withdrawal Encounter Details Date Type Department Care Team ([facility] st Contact Info) Description 07/14/2021 6:34 AM CDT - 07/14/2021 12:03 PM CDT Emergency [facility] Emergency Department [address] [place] [address] Jose Acosta MD [facility] [address] [facility] [address] [place] [address] Alcohol withdrawal syndrome without complication (CMS/HCC) (HCC) (Primary Dx); Tremulousness Discharge Disposition: Discharge to home or self [...] on file 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 Gender Identity Not on file Sexual Orientation Not on file documented as of this encounter Last Filed Vital Signs Vital Sign Reading Time Taken Comments Blood Pressure 144/84 07/14/2021 9:00 AM CDT Pulse 74 07/14/2021 9:00 AM CDT Temperature 36.6 ??C (97.9 ??F) 07/14/2021 3:32 AM CD T Respiratory Rate 15 07/14/2021 9:00 AM CDT Oxygen Saturation 100% 07/14/2021 9:00 AM CDT Inhaled Oxygen Concentration - - Weight - - Height - - Body Mass Index - - documented in this encounter Discharge Diagnoses Diagnosis Alcohol dependence with withdrawal, uncomplicated (HCC) - ALCOHOL DEPENDENCE WITH WITHDRAWAL, UNCOMPLICATED Tremor, unspecified - TREMOR, UNSPECIFIED Essential (primary) hypertension - ESSENTIAL (PRIMARY) HYPERTENSION Unspecified essential hypertension Hyperlipidemia, unspecified - HYPERLIPIDEMIA, UNSPECIFIED Anemia, unspecified - ANEMIA, UNSPECIFIED Anxiety disorder, unspecified - ANXIETY DISORDER, UNSPECIFIED Vitamin D deficiency, unspecified - VITAMIN D DEFICIENCY, UNSPECIFIED Nicotine dependence, cigarettes, uncomplicated - NICOTINE DEPENDENCE, CIGARETTES, UNCOMPLICATED documented in this encounter Discharge Instructions * Attachments The following attachments cannot be sent through Care Everywhere. * Abuse of Alcohol (AfterCare(R) Instructions(ER/ED)) (Tunisian) * Alcohol Withdrawal (Tunisian) * Tremors (General Information) (Tunisian) documented in this encounter Medications at Time [...] or self care documented in this encounter ED Notes * Jose Acosta MD - 07/14/2021 8:20 AM CDT HPI Chief Complaint Patient presents with ??? Withdrawal HPI Patient is a 51-year-old male with a past medical history significant for alcohol abuse, binge drinking, hypertension, hyperlipidemia who presents with a chief complaint of alcohol withdrawal symptoms. Reports recent binge drinking; started on July 04. Initiating event was a classmates reunion. Reports he drinks both beer and hard liquor; but mostly beer. Last drink was around 3:00 a.m.. Denies prior episodes of seizures. Notes tremulousness. Reports he has previously required Librium tapers. Notes associated mild nausea. Also admits to tobacco abuse. Reports his COVID vaccine is up-to-date. Denies chest pain. Denies shortness of breath. Denies fevers or chills. Denies other complaints. Family history: Hypertension, cancer Social history: Alcohol abuse, tobacco abuse, employed with an [employer] Patient History: Patient Active Problem List Diagnosis Date Noted ??? Allergic rhinitis 07/06/2019 ??? Healthcare maintenance 06/13/2018 ??? Anemia 06/13/2018 ??? Hypertension 06/26/2014 ??? Smoking 09/18/2013 ??? Alcohol abuse 11/13/2012 Past Medical History: Diagnosis Date ??? Anemia ??? Anxiety ??? Hypertension ??? Pancreatitis ??? Vitamin D deficiency 11/28/2012 Past Surgical History: Procedure Laterality Date ??? CARPAL TUNNEL RELEASE Left 2007 ??? COLONOSCOPY ??? UPPER GASTROINTESTINAL ENDOSCOPY Family History Problem Relation Age of Onset ??? Kidney cancer Father Cancer, kidney; ??? Other (renal cancer) Father ??? Hypertension Mother Hypertension; Social History Tobacco Use ??? Smoking status: Current Every Day Smoker Packs/day: 0.35 Types: Cigarettes ??? Smokeless tobacco: Never Used ??? Tobacco comment: 8 cigs a day Vaping Use ??? Vaping Use: Never used Substance Use Topics ??? Alcohol use: Yes Comment: occasionally ??? Drug use: Never Social History Social History Narrative ??? Not on file Review of Systems Review of Systems Constitutional: Negative for chills and fever. HENT: Negative for ear pain and sore throat. Eyes: Negative for pain and visual disturbance. Respiratory: Negative for cough and shortness of breath. Cardiovascular: Negative for chest pain and palpitations. Gastrointestinal: Negative for abdominal pain and vomiting. Genitourinary: Negative for dysuria and hematuria. Musculoskeletal: Negative for arthralgias and back pain. Skin: Negative for color change and rash. Neurological: Positive for tremors and light-headedness. Negative for seizures and syncope. Psychiatric/Behavioral: The patient is nervous/anxious. All other systems reviewed and are negative. Physical Exam ED Triage Vitals [07/13/21 1717] Temp Pulse Resp BP SpO2 36.5 ??C (97.7 ??F) 87 16 133/79 98 % Temp src Heart Rate Source Patient Position BP Location FiO2 (%) Temporal -- -- -- -- Physical Exam Vitals and nursing note reviewed. Constitutional: Appearance: He is well-developed. Comments: Relatively well-appearing male, lying on stretcher, cooperative, able to answer all questions HENT: Head: Normocephalic and atraumatic. Mouth/Throat: Mouth: Mucous membranes are moist. Eyes: Conjunctiva/sclera: Conjunctivae normal. Cardiovascular: Rate and Rhythm: Normal rate and regular rhythm. Heart sounds: Normal heart sounds. No murmur heard. Comments: No tachycardia, no arrhythmias, no PVCs Pulmonary: Effort: Pulmonary effort is normal. No respiratory distress. Breath sounds: Normal breath sounds. Abdominal: Palpations: Abdomen is soft. Tenderness: There is no abdominal tenderness. Musculoskeletal: General: Normal range of motion. Cervical back: Neck supple. Skin: General: Skin is warm and dry. Neurological: General: No focal deficit present. Mental Status: He is alert and oriented to person, place, and time. Comments: No evidence of tremor Psychiatric: Mood and Affect: Mood normal. MDM MDM Middle-age male who presents with alcohol withdrawal. Requesting medical management. There is currently Librium shortage. Will favor phenobarbital/perpetuate medication. Explained benefit of autotaper of medication to patient. Will provide IV hydration. Screening labs to rule out metabolic derangement, pathology. Nonfocal physical exam. P.o. challenge. Anticipate disposition home with encouragement to stop tobacco and alcohol abuse. Pt voices agreement and understanding. Patient found to have a glucose level of 50 on lab BMP. Patient exam not consistent with this laboratory value; A&O x3; conversant. Provided orange juice and turkey sandwich. Will recheck fingerstick blood glucose. Patient reports he subjectively feels much improved post phenobarb. Patient tolerated orange juice and turkey sandwich. Ready for dispo home. Final diagnoses: Alcohol withdrawal syndrome without complication (CMS/HCC) (HCC) Tremulousness Jose Acosta MD 07/14/21 141 * Zina Liu RN - 07/14/2021 6:34 AM CDT Bed: ED2-20 Expected date: Expected time: Means of arrival: Public Transportation Comments: Zina Liu RN 07/14/21 0612 * Olivia Johnson RN - 07/13/2021 5:15 PM CDT Pt states he has been binge drinking and is now going through withdrawal; pt states last drink a few hours ago documented in this encounter Miscellaneous Notes * ED Procedure Note - Jose Acosta MD - 07/14/2021 8:13 AM CDTAssociated Order(s): ECG 12 lead Procedure ECG 12 lead Date/Time: 07/14/2021 8:13 AM Performed by: Jose Acosta MD Authorized by: Wessman, Jose T., MD Rate: ECG rate: 70 ECG rate assessment: normal Rhythm: Rhythm: sinus rhythm Ectopy: Ectopy: none QRS: QRS axis: Normal QRS intervals: Normal Conduction: Conduction: normal ST segments: ST segments: Non-specific T waves: T waves: normal Other findings: Other findings: LVH Previous ECG: Previous ECG: Unavailable Interpretation: Interpretation: non-specific Recommended Follow-up: Recommended follow up: further workup in the ED Jose Acosta MD 07/14/21 0815 documented in this encounter Plan of Treatment [...] Procedure Name Priority Date/Time Associated Diagnosis Comments POCT GLUCOSE DEVICE Routine 07/14/2021 1 0:22 AM CDT POCT GLUCOSE DEVICE Routine 07/14/2021 9 :51 AM CDT LACTATE STAT 07/14/2021 8:23 AM CDT EGFR STAT 07/14/2021 8:23 AM CDT DIFFERENTIAL AUTO STAT 07/14/2021 8:2 3 AM CDT CRITICAL RESULT CALLBACK CHEMISTRY STAT 07/14/2021 8:23 AM CDT CBC WITH AUTO DIFFERENTIAL STAT 07/14/2021 8:23 AM CDT BLOOD GAS, VENOUS STAT 07/14/2021 8:2 3 AM CDT COMPREHENSIVE METABOLIC PANEL STAT 07/14/2021 8:23 AM CDT ECG 12-LEAD STAT 07/14/2021 8:13 AM CDT documented in this encounter Results * POCT glucose (07/14/2021 10:22 AM CDT) Glucose, POC 122 70 - 199 mg/dL [facility] Blood 07/14/2021 10:2 2 AM CDT 07/14/2021 10:22 AM CDT us Notinfile Unknown LAB POCT ORDERABLES - DEVICE F inal Result [facility] Department [place] [address] * (ABNORMAL) POCT glucose (07/14/2021 9:51 AM CDT) Glucose, POC 60(L) 70 - 199 mg/dL [facility] Blood 07/14/2021 9:51 AM CDT 07/14/2021 9:51 AM CDT us Notinfile Unknown LAB POCT ORDERABLES - DEVICE F inal Result Performing Organization Address [facility] de Phone Number CRISTY [facility] Department [place] [address] * Critical Result Callback Chemistry (07/14/2021 8:23 AM CDT) Date Notified [id number] [facility] Time Notified 922 [facility] TestName Glucose [facility] Called/Read Back Jose [facility]IZ [facility] Credentials MD MUNIZ [facility] Called By CRISTY [facility] Blood 07/14/2021 8:23 AM CDT 07/14/2021 8:33 AM CDT Jose Acosta MD LAB BLOOD ORDERABLES Final Result Performing Organization Address [facility] de Phone Number CRISTY [facility] Department [place] [address] * eGFR (07/14/2021 8:23 AM CDT) Pathologist [facility] eGFR >90 90 - 130 mL/min/1.7 3 m2 [facility] Comment: Interpretive Data Reference Interval Normal ?>/= [...] interpretive data was last reviewed 2020 Blood 07/14/2021 8:23 AM CDT 07/14/2021 8:33 AM CDT us Jose Acosta MD LAB BLOOD ORDERABLES Final Result [facility] Department [place] [address] * (ABNORMAL) Differential, auto (07/14/2021 8:23 AM CDT) Neutrophil abs 8.4(H) 1.7 - 6.5 K/cumm [facility] Imm gran abs 0.0 0.0 - 0.1 K/cumm [facility] Lymphocyte abs 2.0 0.8 - 3.3 K/cumm [facility] Monocyte abs 0.5 0.2 - 0.8 K/cumm [facility] Eosinophil abs 0.1 0.0 - 0.5 K/cumm [facility] Basophil abs 0.1 0.0 - 0.1 K/cumm [facility] Neutrophil pct 74.9 % [facility] Comment: Interpretive Data Percent cell count reference ranges are not reported, since discordance with absolute values may lead to misinterpretation of CBC data. Current Interpretive Data was last revised on 2018. Imm gran pct 0.4 % [facility] Comment: Interpretive Data Percent cell count reference ranges are not reported, since discordance with absolute values may lead to misinterpretation of CBC data. Current Interpretive Data was last revised on 2018. Lymphocyte pct 18.2 % [facility] Comment: Interpretive Data Percent cell count reference ranges are not reported, since discordance with absolute values may lead to misinterpretation of CBC data. Current Interpretive Data was last revised on 2018. Monocyte pct 4.6 % [facility] Comment: Interpretive Data Percent cell count reference ranges are not reported, since discordance with absolute values may lead to misinterpretation of CBC data. Current Interpretive Data was last revised on 2018. Eosinophil pct 1.3 % [facility] Comment: Interpretive Data Percent cell count reference ranges are not reported, since discordance with absolute values may lead to misinterpretation of CBC data. Current Interpretive Data was last revised on 2018. Basophil pct 0.6 % [facility] Comment: Interpretive Data Percent cell count reference ranges are not reported, since discordance with absolute values may lead to misinterpretation of CBC data. Current Interpretive Data was last revised on 2018. Blood 07/14/2021 8:23 AM CDT 07/14/2021 8:33 AM CDT Jose Acosta MD LAB BLOOD ORDERABLES Final Result Performing Organization Address City/[facility]/ZIP Co de Phone Number [facility] Department [place] [address] * (ABNORMAL) Lactate (07/14/2021 8:23 AM CDT) Pathologist [facility] Lactate 2.1(H) 0.7 - 2.0 mmol/L [facility] Blood 07/14/2021 8:23 AM CDT 07/14/2021 8:33 AM CDT Jose Acosta MD LAB BLOOD ORDERABLES Final Result [facility] Department [place] [address] * (ABNORMAL) CBC with auto differential (07/14/2021 8:23 AM CDT) Pathologist [facility] WBC 11.2(H) 3.8 - 9.9 K/cumm [facility] Hgb 14.7 13.0 - 17.5 g/dL [facility] Hct 42.1 38.9 - 50.3 % [facility] Plt 221 150 - 400 K/cumm [facility] MPV 9.1 9.1 - 12.3 fL [facility] RBC 4.55 4.30 - 5.80 M/cumm [facility] MCV 92.5 81.3 - 96.4 fL [facility] MCH 32.3 27.1 - 33.3 pg [facility] MCHC 34.9 32.3 - 35.7 g/dL [facility] RDW CV 13.4 11.1 - 14.9 % [facility] RDW SD 45.6 35.7 - 48.1 fL [facility] NRBC abs 0.00 0.00 - 0.01 K/cumm [facility] Blood 07/14/2021 8:23 AM CDT 07/14/2021 8:33 AM CDT Jose Acosta MD LAB BLOOD ORDERABLES Final Result [facility] Department [place] [address] * (ABNORMAL) Comprehensive metabolic panel (07/14/2021 8:23 AM CDT) Sodium 137 135 - 145 mmol/L [facility] Potassium, pl 5.3(H) 3.3 - 4.9 mmol/L [facility] Chloride 95(L) 97 - 110 mmol/L [facility] CO2 26 22 - 32 mmol/L [facility] Anion gap 16(H) 2 - 15 mmol/L [facility] BUN 13 8 - 25 mg/dL [facility] Creatinine 0.87 0.80 - 1.30 mg/dL [facility] Glucose 50(C) 70 - 199 mg/dL [facility] Comment: Glycolysis suspected; suggest sending a todd top tube. Interpretive Data Fasting glucose >/= 126 mg/dl [...] interpretive data was last revised 2017. Calcium 10.3 8.5 - 10.3 mg/dL [facility] Bilirubin, total 0.8 0.1 - 1.2 mg/dL [facility] Protein, pl 8.5 6.5 - 8.5 g/dL [facility] Albumin 5.3(H) 3.5 - 5.0 g/dL [facility] Alk phos 78 40 - 130 Units/L [facility] ALT 22 7 - 55 Units/L [facility] AST 35 10 - 50 Units/L [facility] Blood 07/14/2021 8:23 AM CDT 07/14/2021 8:33 AM CDT Jose Acosta MD LAB BLOOD ORDERABLES Final Result [facility] Department [place] [address] * Blood gas, venous (07/14/2021 8:23 AM CDT) pH, Venous 7.36 7.32 - 7.43 [facility] PCO2, Venous 49 40 - 50 mmHg [facility] PO2, Venous 30 mmHg [facility] Comment: Interpretive Data No Reference Range Established Current Interpretive Data was last revised on 2018. HCO3 Venous, Calculated 28 20 - 30 mmol/L [facility] BE, venous 1 mmol/L [facility] Comment: Interpretive Data No Reference Range Established Current Interpretive Data was last revised on 2018. Blood 07/14/2021 8:23 AM CDT 07/14/2021 8:29 AM CDT Jose Acosta MD LAB BLOOD ORDERABLES Final Result [facility] Department [place] [address] * ECG 12-LEAD (07/14/2021 8:13 AM CDT) Mimi ABRAMS [facility] - 07/14/2021 8:13 AM CDT Jose Acosta MD ? 07/14/2021 ??8:15 AM ECG 12 lead Date/Time: 07/14/2021 8:13 AM Performed by: Jose Acosta MD Authorized by: Jose Acosta MD Rate: ??ECG rate: ??70 ??ECG rate assessment: normal ?? Rhythm: ??Rhythm: sinus rhythm ?? Ectopy: ??Ectopy: none ?? QRS: ??QRS axis: ??Normal ??QRS intervals: ??Normal Conduction: ??Conduction: normal ?? ST segments: ??ST segments: ??Non-specific T waves: ??T waves: normal ?? Other findings: ??Other findings: LVH ?? Previous ECG: ??Previous ECG: ??Unavailable Interpretation: ??Interpretation: non-specific ?? Recommended Follow-up: ??Recommended follow up: further workup in the ED ?? Procedure Note Jose Acosta MD - 07/14/2021 8:13 AM CDT Procedure ECG 12 lead Date/Time: 07/14/2021 8:13 AM Performed by: Jose Acosta MD Authorized by: Jose Acosta MD Rate: ECG rate: 70 ECG rate assessment: normal Rhythm: Rhythm: sinus rhythm Ectopy: Ectopy: none QRS: QRS axis: Normal QRS intervals: Normal Conduction: Conduction: normal ST segments: ST segments: Non-specific T waves: T waves: normal Other findings: Other findings: LVH Previous ECG: Previous ECG: Unavailable Interpretation: Interpretation: non-specific Recommended Follow-up: Recommended follow up: further workup in the ED Jose Acosta MD 07/14/21 0815 Jose Acosta MD ECG ORDERABLES Final Resu lt MUSE BJC BJ documented in this encounter Visit Diagnoses Diagnosis Alcohol withdrawal syndrome without complication (HCC)- Primary Tremulousness documented in this encounter Administered Medications Inactive Administered Medications - up to 3 most recent administrations Medication Order MAR Action Action Date Dose Rate Site Lactated Ringer's (LR) bolus 1,000 mL 1,000 mL, intravenous, at 1,000 mL/hr, Administer over 1 Hours, Once, On Tue07/14/21 at 0746, For 1 dose New Bag 07/14/2021 8:26 AM CDT 1,000 mL 100 0 mL/hr multivitamin with folic acid 400 mcg tablet 1 tablet 1 tablet, oral, Once, On Tue07/14/21 at 0749, For 1 dose, Indications: Vitamin Deficiency PreventionIndications:Vitam in Deficiency Prevention Given 07/14/2021 9:09 AM CDT 1 tablet PHENobarbital injection 130 mg 130 mg, intravenous, Once, On Tue07/14/21 at 0746, For 1 dose, Indications: alcohol withdrawalIndications:alcoh ol withdrawal Given 07/14/2021 8:59 AM CDT 130 mg documented in this encounter Active and Recently Administered Medications Times are shown in CDT. Scheduled Medication Order 07/12/2021 07/13/2021 07/14/2021 Lactated Ringer's (LR) bolus 1,000 mL (COMPLETED) 1,000 mL, intravenous, at 1,000 mL/hr, Administer over 1 Hours, Once, On Tue07/14/21 at 0746, For 1 dose 0826 (New Bag - Prov ider: Arturo Brown RN)1203 (Stopped - Provider: Zina iLu RN) multivitamin with folic acid 400 mcg tablet 1 tablet (COMPLETED) 1 tablet, oral, Once, On Tue07/14/21 at 0749, For 1 dose, Indications: Vitamin Deficiency Prevention 0909 (Given - Provid er: Arturo Brown RN) PHENobarbital injection 130 mg (COMPLETED) 130 mg, intravenous, Once, On Tue07/14/21 at 0746, For 1 dose, Indications: alcohol withdrawal 0859 (Given - Provid er: Arturo Brown RN - Comment: stop time 0903) documented in this encounter Orders Medications Ordered That Gama ht Not Have Been Administered Count Last Ordered Date First Ordered Date multivitamin tablet 1 tablet 1 07/14/2021 documented in this encounter Care Teams Denture Finisher Relationship Specialty Start Date End Date David Feliz MD PCP - General 04/18/21 07/26/22 documented as of this encounter
--- OUTSIDE RECORDS SUMMARY | 2024-11-04 22:15 | XMS_ITS | Encounter Summary ---
Author Organization [facility] Address [address] [place] [address] Care Team Providers Care Senior Web Applications Developer Name Role Phone Clare Kasper MD Primary Care Pro vider Reason for Visit * Reason Comments Follow-up Encounter Details Date Type Department Care Team (Latest Contact Info) Description 01/24/2023 2:15 PM CDT Office Visit [facility] Primary Care [address] [facility] [address] [place] [address] Clare Kasper MD [address] [place] [id number] Primary insomnia (Primary Dx); Primary hypertension; Hyperlipidemia, unspecified hyperlipidemia type; Alcohol abuse; Tobacco use; Gastroesophageal reflux disease, unspecified whether esophagitis present; Polyuria Social History Tobacco Use Types Packs/Day Years [...] on file Legal Sex 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 Gender Identity Not on file Sexual Orientation Not on file documented as of this encounter Last Filed Vital Signs Vital Sign Reading Time Taken Comments Blood Pressure 128/80 01/24/2023 2:19 PM CDT Pulse 84 01/24/2023 2:19 PM CDT Temperature 36.1 ??C (97 ??F) 01/24/2023 2:19 PM CDT Respiratory Rate 18 01/24/2023 2:19 PM CDT Oxygen Saturation 98% 01/24/2023 2:19 PM CDT Inhaled Oxygen Concentration - - Weight 52.7 kg (116 lb 3.2 oz) 01/24/2023 2:19 P M CDT Height 170.2 cm (5' 7 ) 01/24/2023 2:19 PM CDT Body Mass Index 18.2 01/24/2023 2:19 PM CDT documented in this encounter Ordered Prescriptions Prescription Sig Dispense Quantity Refills Last Filled Start Date End Date traZODone (DESYREL) 50 mg tabletIndications:Pr imary insomnia Take 1 tablet (50 mg total) by mouth nightly as needed for sleep 90 tablet 1 01/24/2023 4 amLODIPine (NORVASC) 10 mg tabletIndications:Pr imary hypertension Take 1 tablet (10 mg total) by mouth daily 90 tablet 1 01/24/2023 3 rosuvastatin (CRESTOR) 5 mg tabletIndications:Hy perlipidemia, unspecified hyperlipidemia type Take 1 tablet (5 mg total) by mouth daily 90 tablet 1 01/24/2023 4 documented in this encounter Progress Notes * Clare Kasper MD - 01/24/2023 2:15 PM CDT Images from the original note were not included. Assessment/Plan: Assessment/Plan Diagnoses and all orders for this visit: Primary insomnia (Primary) Comments: Uncontrolled trial of trazodone Orders: - traZODone (DESYREL) 50 mg tablet; Take 1 tablet (50 mg total) by mouth nightly as needed for sleep Primary hypertension Assessment & Plan: Blood pressure at goal, continue 10mg amlodipine Orders: - amLODIPine (NORVASC) 10 mg tablet; Take 1 tablet (10 mg total) by mouth daily - Comprehensive metabolic panel; Future Hyperlipidemia, unspecified hyperlipidemia type Assessment & Plan: Side effects to crestor so will decrease to 5mg Orders: - rosuvastatin (CRESTOR) 5 mg tablet; Take 1 tablet (5 mg total) by mouth daily - Lipid panel; Future Alcohol abuse Assessment & Plan: 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 gonorrhoeae/C. trachomatis Amplification Urine; Future F/u 6 months or sooner as needed if symptoms not improving or worsen. Strict return/ED precautions discussed. Subjective: Yariel Hill is a 52 y.o. male here for follow up multiple chronic conditions HPI Chief Complaint Patient presents with Follow-up Hypertension: on amlodipine 10mg Hyperlipidemia: stopped crestor 2/2 leg pain, did improve after stopping Smoking 8-10 cigarettes/day. Has tried gum and patches Alcohol abuse: had been sober since Oct, but then had 8 beers yesterday and 1 this morning. Not interested in medication GERD: stable, no recent symptoms Dermatitis on back: previously improved with triamcinolone. Intermittently using sensitive skin soap, will alternative with caress. Insomnia: no improvement with cutting back on caffeine or melatonin over the counter. Review of Systems Musculoskeletal: Positive for myalgias. Skin: Positive for rash. Psychiatric/Behavioral: Positive for sleep disturbance. Objective: Vital signs were reviewed. Vitals: 01/24/23 1419 BP: 128/80 BP Location: Left arm Patient Position: Sitting Pulse: 84 Resp: 18 Temp: 36.1 ??C (97 ??F) TempSrc: Temporal SpO2: 98% Weight: 52.7 kg (116 lb 3.2 oz) Height: 170.2 cm (5' 7 ) Physical Exam Gen: NAD, comfortable, appears as stated age Eyes: no conjunctival injection, EOMI ENMT: external ears symmetric CV: Regular rate and rhythm, no murmurs, rubs or gallops Pulm: no increased work of breathing, clear to asculation bilaterally, no wheezing, rhonchi or rales Skin: no rashes or nodules, warm and dry MSK/Neuro: symmetric limb movement Psych: alert and oriented to person/place/time, appropriate judgment and insight Clare Kasper MD documented in this encounter Miscellaneous Notes * Assessment & Plan Note - Clare Kasper MD - 01/24/2023 2:40 PM CDTAssociated Problem(s): Alcohol use disorder 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 (naltrexone, antabuse, etc) currently * Assessment & Plan Note - Clare Kasper MD - 01/24/2023 2:39 PM CDTAssociated Problem(s): GERD (gastroesophageal reflux disease) Stable off medications * Assessment & Plan Note - Clare Kasper MD - 01/24/2023 2:35 PM CDTAssociated Problem(s): Tobacco use Encouraged cessation * Assessment & Plan Note - Clare Kasper MD - 01/24/2023 2:35 PM CDTAssociated Problem(s): Hyperlipidemia Side effects to crestor so will decrease to 5mg * Assessment & Plan Note - Clare Kasper MD - 01/24/2023 2:29 PM CDTAssociated Problem(s): Hypertension Blood pressure at goal, continue 10mg amlodipine documented in this encounter Plan of Treatment [...] documented as of this encounter Results * Hemoglobin A1c (01/24/2023 3:41 PM CDT) [facility] Hgb A1C 5.5 4.0 - 5.6 % [facility] Comment:Testing performed by : [facility], [address] [place] [address], [place]., [address] Estimated Average Glucose 111 mg/dL [facility] Comment: The ADA recommends reporting an estimated Average Glucose (eAG) with all Hemoglobin A1c results using the equation derived from a study of 507 normal and diabetic adults. ??Minority populations were underrepresented and children were not included. ?? (Diabetes Care 31:2167-1754, 2008). ??The eAG is not equivalent to a fasting glucose. Testing performed by: [facility], [address] [place] [address]., [address] Blood 01/24/2023 3:41 PM CDT 01/24/2023 3:57 PM CDT us Clare Kasper MD LAB BLOOD ORDERAB LES Final Result [facility] [address] [facility] Department [place] [address] * Lipid panel (01/24/2023 3:41 PM CDT) Cholesterol 137 30 - 199 mg/dL [facility] Comment: [...] last revised on 2018. Testing performed by: [facility], [address] [place] [address]., [address] Triglycerides 77 <=149 mg/dL [facility] Comment: Interpretive Data [...] last revised on 2018. Testing performed by: [address] [address] HDL 46 >=40 mg/dL [facility] Comment: Interpretive Data [...] last revised on 2018. Testing performed by: [address] [address] LDL, calculated 76 <=129 mg/dL [facility] Comment: Interpretive Data [...] last revised on 2018. Testing performed by: [address] [address] Non-HDL Cholesterol 91 mg/dL [facility] Comment: Interpretive Data Ages [...] last revised on 2018. Testing performed by: [address] [address] Chol/HDL ratio 3 [facility] Comment:Testing performed by : [address] [address] Blood 01/24/2023 3:41 PM CDT 01/24/2023 3:57 PM CDT us Clare Kasper MD LAB BLOOD ORDERAB LES Final Result [facility] [address] [facility] Department [place] [address] * Comprehensive metabolic panel (01/24/2023 3:41 PM CDT) [facility] Sodium 140 135 - 145 mmol/L [facility] Comment:Testing performed by : [address] [address] Potassium, pl 4.0 3.3 - 4.9 mmol/L [facility] Comment:Testing performed by : [address] [address] Chloride 104 97 - 110 mmol/L [facility] Comment:Testing performed by : [address], [place]., [address] CO2 22 22 - 32 mmol/L [facility] Comment:Testing performed by : [address], [place]., [address] Anion gap 14 2 - 15 mmol/L [facility] Comment:Testing performed by : [address], [place]., [address] BUN 10 8 - 25 mg/dL C[facility]STY Comment:Testing performed by : [address], [place]., [address] Creatinine 0.80 0.80 - 1.30 mg/dL [facility] Comment:Testing performed by : [address] [address] Glucose 95 70 - 199 mg/dL [facility] Comment: Interpretive Data Fasting glucose >/= 126 [...] was last revised 2022. Testing performed by: [address] [address] Calcium 9.5 8.5 - 10.3 mg/dL [facility] Comment:Testing performed by : [address] [address] Bilirubin, total 0.4 0.1 - 1.2 mg/dL [facility] Comment:Testing performed by : [address] [address] Protein, pl 7.5 6.5 - 8.5 g/dL C[facility]STY Comment:Testing performed by : [address] [address] Albumin 4.5 3.5 - 5.0 g/dL [facility] Comment:Testing performed by : [address] [address] Alk phos 77 40 - 130 Units/L [facility] Comment:Testing performed by : [address] [address] ALT 12 7 - 55 Units/L [facility] Comment:Testing performed by : [address] [address] AST 26 10 - 50 Units/L [facility] Comment:Testing performed by : [address] [address] Blood 01/24/2023 3:41 PM CDT 01/24/2023 3:57 PM CDT Clare Kasper MD LAB BLOOD ORDERAB LES Final Result [facility] [address] [facility] Department of Laboratories [place], [place] [id number] documented in this encounter Visit Diagnoses Diagnosis Primary insomnia- Primary Persistent disorder of initiating or maintaining sleep Primary hypertension Unspecified essential hypertension Hyperlipidemia, unspecified hyperlipidemia type Alcohol abuse Nondependent alcohol abuse, unspecified drinking behavior Tobacco use Gastroesophageal reflux disease, unspecified whether esophagitis present Polyuria documented in this encounter Discontinued Medications Medication Sig Discontinue Reason Start Date End Da te pantoprazole DR (PROTONIX) 40 mg EC tablet Take 40 mg by mouth daily Therapy completed 05/27/2022 01/24/2023 amLODIPine (NORVASC) 10 mg tabletIndications:Essentia l hypertension Take 1 tablet (10 mg total) by mouth daily Reorder 01/22/2022 01/24/2023 rosuvastatin (CRESTOR) 10 mg tabletIndications:Hyperlip idemia, unspecified hyperlipidemia type Take 1 tablet (10 mg total) by mouth daily Reorder 07/28/2022 01/24/2023 documented as of this encounter Care Teams Senior Web Applications Developer Relationship Specialty Start Date End Date Clare Kasper MD PCP - General Family Medicine 07/27/22 documented as of this encounter
--- OUTSIDE RECORDS SUMMARY | 2024-11-04 22:15 | XMS_ITS | Encounter Summary ---
Author Organization [facility] Healthcare Address [address] [place] [address] Care Team Providers Care Chief Fishery Division Name Role Phone Clare Kasper MD Primary Care Pro vider Reason for Visit * Reason Comments Alcohol Intoxication Withdrawal Encounter Details Date Type Department Care Team ([facility] Contact Info) Description 03/01/2023 12:32 AM CDT - 03/01/2023 2:52 AM CDT Emergency [facility] Emergency Department [address] [place] [address] Lionel Sher MD [facility] [address] [place], [place] [id number] Alcohol use disorder (Primary Dx) Discharge Disposition: Discharge to home or self [...] on file 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 Gender Identity Not on file Sexual Orientation Not on file documented as of this encounter Last Filed Vital Signs Vital Sign Reading Time Taken Comments Blood Pressure 131/77 03/01/2023 2:30 AM CDT Pulse 66 03/01/2023 2:30 AM CDT Temperature 36.6 ??C (97.9 ??F) 02/28/2023 10:09 PM C DT Respiratory Rate 15 03/01/2023 2:30 AM CDT Oxygen Saturation 99% 02/28/2023 10:09 PM CDT Inhaled Oxygen Concentration - - Weight 59 kg (130 lb) 02/28/2023 10:09 PM CDT Height 170.2 cm (5' 7 ) 02/28/2023 10:09 PM CDT Body Mass Index 20.36 02/28/2023 10:09 PM CDT documented in this encounter Discharge Instructions * Discharge Instructions* Tony Beard MD - 03/01/2023 1:29 AM CDT You were seen today in the ED for assistance with alcohol withdrawal symptoms and treatment programs. Your workup included metabolic panel. You were sent home with a benzodiazepine (Librium) taper which you should take over the course of a few days. We also prescribed a script for naltrexone to help reduce cravings; it is important you avoid any opioid use with this medication. Please talk to your primary care physician for further refills for this medication. * Attachments The following attachments cannot be sent through Care Everywhere. * Alcohol Dependence (AfterCare(R) Instructions(ER/ED)) ([facility]) documented in this encounter Medications at Time of Discharge triamcinolone (KENALOG) 0.1 % ointmentIndications :Eczema, unspecified type Apply topically 2 (two) times a day as needed for irritation or rash Do not use daily for more than 2 weeks at a time 30 g 09/30/2022 naltrexone (DEPADE) 50 mg tabletIndications:a lcoholism Take 1 tablet (50 mg total) by mouth daily for 14 days 14 tablet 03/01/2023 3 amLODIPine (NORVASC) 10 mg tabletIndications:P rimary hypertension Take 1 tablet (10 mg total) by mouth daily 90 tablet 1 01/24/2023 3 chlordiazePOXIDE (LIBRIUM) 25 mg capsuleIndications: Alcohol Withdrawal Syndrome 5/3: Take 2 capsules every 6 hours 5/4: Take 2 capsules every 8 hours 5/5: Take 1 capsule every 8 hours 5/6: Take 1 capsule twice daily 5/7: Take 1 capsule once daily 20 capsule 03/01/2023 3 rosuvastatin (CRESTOR) 5 mg tabletIndications:H yperlipidemia, unspecified hyperlipidemia type Take 1 tablet (5 mg total) by mouth daily 90 tablet 1 01/24/2023 4 traZODone (DESYREL) 50 mg tabletIndications:P rimary insomnia Take 1 tablet (50 mg total) by mouth nightly as needed for sleep 90 tablet 1 01/24/2023 4 documented as of this encounter Ordered Prescriptions Prescription Sig Dispense Quantity Refills Last Filled Start Date End Date chlordiazePOXIDE (LIBRIUM) 25 mg capsuleIndications :Alcohol Withdrawal Syndrome 5/3: Take 2 capsules every 6 hours 5/4: Take 2 capsules every 8 hours 5/5: Take 1 capsule every 8 hours 5/6: Take 1 capsule twice daily 5/7: Take 1 capsule once daily 20 capsule 03/01/2023 3 naltrexone (DEPADE) 50 mg tabletIndications: alcoholism Take 1 tablet (50 mg total) by mouth daily for 14 days 14 tablet 03/01/2023 3 naltrexone (DEPADE) 50 mg tabletIndications: alcoholism Take 1 tablet (50 mg total) by mouth daily for 14 days 14 tablet 03/01/2023 3 documented in this encounter Discharge Disposition Disposition Code Departure Means Destination Comment s Discharge to home or self care documented in this encounter ED Notes * Tony Beard MD - 03/01/2023 12:47 AM CDT HPI Chief Complaint Patient presents with Alcohol Intoxication Withdrawal 52 yr old male w/ history of alcohol use disorder, alcohol-induced pancreatitis, binge drinking, HTN, HLD who presents for aid with alcohol cessation and for alcohol withdrawal. States his last drinkwas 4 hours ago and he has been drinking since early-January. He denies any current feelings of tachycardia, diaphoresis, or his typical withdrawal symptoms. Last episode of withdrawal seizures were [id number]. Reports drinking beer (tall boys) and vodka, and states he's had increasing life stressors recently. Denies any other symptoms. Has tried librium in the past with success. Patient History: Patient Active Problem List Diagnosis [...] RELEASE Left 2008 COLONOSCOPY UPPER GASTROINTESTINAL ENDOSCOPY Family History Problem Relation Age of Onset Kidney cancer Father Cancer, kidney; Other (renal cancer) Father Hypertension Mother Hypertension; Alcohol abuse Brother Social History Tobacco Use Smoking status: Every Day Packs/day: 0.50 Years: 15.00 Pack years: 7.50 Types: Cigarettes Start date: 05/11/2000 Last attempt to quit: 07/26/2022 Years since quittin.5 Passive exposure: Yes Smokeless tobacco: Never Tobacco comments: 8 cigs a day Vaping Use Vaping status: Never Used Substance and Sexual Activity Alcohol use: Yes Comment: occasionally Drug use: Not Currently Types: Alcohol, Benzodiazepines Sexual activity: Not Currently Partners: Female Social History Social History Narrative Not on file Review of Systems Review of Systems Constitutional: Negative for activity change, chills, diaphoresis, fatigue and fever. HENT: Negative for congestion, ear pain and facial swelling. Cardiovascular: Negative for chest pain and palpitations. Gastrointestinal: Negative for abdominal pain, diarrhea and nausea. Neurological: Negative for dizziness, tremors, weakness and headaches. Psychiatric/Behavioral: Negative for agitation and hallucinations. The patient is not nervous/anxious and is not hyperactive. Physical Exam ED Triage Vitals [02/28/23 2209] Temp Pulse Resp BP SpO2 36.6 ??C (97.9 ??F) 82 16 147/79 99 % Temp src Heart Rate Source Patient Position BP Location FiO2 (%) Oral -- -- -- -- Height Height Method Weight Weight Method 1.702 m (5' 7 ) -- 59 kg (130 lb) -- Physical Exam Constitutional: General: He is not in acute distress. Appearance: Normal appearance. HENT: Right Ear: Tympanic membrane and external ear normal. Left Ear: Tympanic membrane and external ear normal. Mouth/Throat: Mouth: Mucous membranes are moist. Eyes: Extraocular Movements: Extraocular movements intact. Pupils: Pupils are equal, round, and reactive to light. Cardiovascular: Rate and Rhythm: Normal rate and regular rhythm. Pulmonary: Effort: Pulmonary effort is normal. Breath sounds: Normal breath sounds. Abdominal: General: Abdomen is flat. Palpations: Abdomen is soft. Tenderness: There is no abdominal tenderness. Musculoskeletal: General: Normal range of motion. Cervical back: Normal range of motion and neck supple. Skin: General: Skin is warm. Capillary Refill: Capillary refill takes less than 2 seconds. Neurological: General: No focal deficit present. Mental Status: He is alert and oriented to person, place, and time. Psychiatric: Mood and Affect: Mood normal. Behavior: Behavior normal. [facility] Medical Decision Making 52 yr old male w/ history of alcohol use disorder, alcohol-induced pancreatitis, binge drinking, HTN, HLD who presents for aid with alcohol cessation and for alcohol withdrawal. No current symptoms of alcohol withdrawal with last drink 4 hours ago. Given lack of current withdrawal symptoms and pastimprovement with librium taper, will d/c with 5-day librium taper. Patient is also amenable to naltrexone for cessation. CMP was unremarkable so patient was sent with a 2-wk script for naltrexone andadvised to f/u with PCP for continued prescription. Amount and/or Complexity of Data Reviewed External Data Reviewed: labs. Labs: ordered. Details: awaiting CMP Risk Prescription drug management. Attending Summary of Care ED Course as of 03/01/23249 Time: 03/01 47 Comment: ED attending note: 52 year old man with a history of AUD presents desiring assistance withalcohol cessation. Has tried chlordiazepoxide tapers in the past but they have been to short and hehas experienced withdrawal symptoms and returned to drinking. Interested in withdrawal treatment and anti-craving medications. Last drink a few hours ago, no current withdrawal symptoms. Plan to check labs (lindsay CMP) and offer initiation of NTX and BZD taper, refer to outpatient [facility] services. By: Lionel Sher MD Time: 03/01 49 Comment: Record review: Primary care clinic notes 02/2022, 12/2020 By: Lionel Sher MD Time: 03/01 248 Comment: Discussed with patient librium taper and provided teaching regarding new prescription of naltrexone. Delivered paper scripts to the patient and arranged social work referral. He will follow with his PCP for continued naltrexone scripts. He has a safe way to return home and is amenable to di tennille. By: Tony Beard MD No diagnosis found. Tony Beard MD Resident 03/01/23 0621 Tony Beard MD Resident 03/01/23 0718 Cosigned by Lionel Sher MD at 03/01/2023 10:59 PM CDT Associated attestation - Lionel Sher MD - 03/01/2023 10:59 PM CDT I have seen and examined the patient on 03/01/2023. I agree with the findings and plan of care as documented in the resident's note. * Marcus Vizcaino RN - 03/01/2023 12:32 AM CDT Bed: ED1-15 Expected date: Expected time: Means of arrival: Car Comments: Marcus Vizcaino RN 03/01/23 0032 * Nicolasa Lucero RN - 02/28/2023 10:08 PM CDT Pt to ed c/o alcohol withdrawal. Stated last time he went into withdrawals was in 1995, had a seizure then. Last drink 2 hours ago. A&O4, ambulatory. documented in this encounter Plan of Treatment [...] Name Priority Date/Time Associated Diagnosis Comments POCT RAPID HIV ANTIBODY COMMUNITY SCREENING-EMILY ELIGIBLE Routine 03/01/2023 2:33 AM CDT EGFR STAT 03/01/2023 1:23 AM CDT DIFFERENTIAL AUTO Timed 03/01/2023 1:2 3 AM CDT CBC WITH AUTO DIFFERENTIAL Timed 03/01/2023 1:23 AM CDT COMPREHENSIVE METABOLIC PANEL STAT 03/01/2023 1:23 AM CDT documented in this encounter Results * POCT rapid HIV (03/01/2023 2:33 AM CDT) [facility] Rapid HIV, POC Negative Negative Lot Number [id number] QC Control Line Acceptable Blood 03/01/2023 2:33 AM CDT us Lionel Sher MD POINT OF CARE TEST ORDERABLES Final Result * eGFR (03/01/2023 1:23 AM CDT) [facility] eGFR >90 90 - 130 mL/min/1. 73 m2 [facility] Comment: Interpretive Data Reference Interval Normal [...] Current interpretive data was last reviewed 2021. Blood 03/01/2023 1:23 AM CDT 03/01/2023 1:34 AM CDT us Lionel Sher MD LAB BLOOD ORDERABLE S Final Result [facility] Department [place] [address] * Differential, auto (03/01/2023 1:23 AM CDT) Neutrophil abs 3.0 1.7 - 6.5 K/cumm [facility] Imm gran abs 0.0 0.0 - 0.1 K/cumm [facility] Lymphocyte abs 3.0 0.8 - 3.3 K/cumm [facility] Monocyte abs 0.4 0.2 - 0.8 K/cumm [facility] Eosinophil abs 0.4 0.0 - 0.5 K/cumm [facility] Basophil abs 0.1 0.0 - 0.1 K/cumm [facility] Neutrophil pct 43.4 % [facility] Comment: Interpretive Data Percent cell count reference ranges are not reported, since discordance with absolute values may lead to misinterpretation of CBC data. Current Interpretive Data was last revised on 2018. Imm gran pct 0.1 % [facility] Comment: Interpretive Data Percent cell count reference ranges are not reported, since discordance with absolute values may lead to misinterpretation of CBC data. Current Interpretive Data was last revised on 2018. Lymphocyte pct 43.5 % [facility] Comment: Interpretive Data Percent cell count reference ranges are not reported, since discordance with absolute values may lead to misinterpretation of CBC data. Current Interpretive Data was last revised on 2018. Monocyte pct 6.2 % [facility] Comment: Interpretive Data Percent cell count reference ranges are not reported, since discordance with absolute values may lead to misinterpretation of CBC data. Current Interpretive Data was last revised on 2018. Eosinophil pct 5.9 % [facility] Comment: Interpretive Data Percent cell count reference ranges are not reported, since discordance with absolute values may lead to misinterpretation of CBC data. Current Interpretive Data was last revised on 2018. Basophil pct 0.9 % [facility] Comment: Interpretive Data Percent cell count reference ranges are not reported, since discordance with absolute values may lead to misinterpretation of CBC data. Current Interpretive Data was last revised on 2018. Blood 03/01/2023 1:23 AM CDT 03/01/2023 1:34 AM CDT Lionel Sher MD LAB BLOOD ORDERABLE S Final Result [facility] Department [place] [address] * (ABNORMAL) Comprehensive metabolic panel (03/01/2023 1:23 AM CDT) Sodium 142 135 - 145 mmol/L [facility] Potassium, pl 4.7 3.3 - 4.9 mmol/L [facility] Chloride 103 97 - 110 mmol/L [facility] CO2 28 22 - 32 mmol/L [facility] Anion gap 11 2 - 15 mmol/L [facility] BUN 10 8 - 25 mg/dL [facility] Creatinine 0.92 0.80 - 1.30 mg/dL [facility] Glucose 77 70 - 199 mg/dL [facility] Comment: Interpretive Data Fasting glucose >/= [...] Current interpretive data was last revised 2022. Calcium 9.3 8.5 - 10.3 mg/dL [facility] Bilirubin, total 0.5 0.1 - 1.2 mg/dL [facility] Protein, pl 7.5 6.5 - 8.5 g/dL [facility] Albumin 4.7 3.5 - 5.0 g/dL [facility] Alk phos 66 40 - 130 Units/L [facility] ALT 46 7 - 55 Units/L [facility] AST 76(H) 10 - 50 Units/L [facility] Blood 03/01/2023 1:23 AM CDT 03/01/2023 1:34 AM CDT Lionel Sher MD LAB BLOOD ORDERABLE S Final Result Performing Organization Address [facility] de Phone Number [facility] Department [place] [address] * (ABNORMAL) CBC with auto differential (03/01/2023 1:23 AM CDT) [facility] WBC 7.0 3.8 - 9.9 K/cumm [facility] Hgb 13.7 13.0 - 17.5 g/dL [facility] Hct 39.3 38.9 - 50.3 % [facility] Plt 136(L) 150 - 400 K/cumm [facility] MPV 9.7 9.1 - 12.3 fL [facility] RBC 4.22(L) 4.30 - 5.80 M/cumm [facility] MCV 93.1 81.3 - 96.4 fL [facility] MCH 32.5 27.1 - 33.3 pg [facility] MCHC 34.9 32.3 - 35.7 g/dL [facility] RDW CV 13.7 11.1 - 14.9 % [facility] RDW SD 46.0 35.7 - 48.1 fL [facility] NRBC abs 0.00 0.00 - 0.01 K/cumm [facility] Blood 03/01/2023 1:23 AM CDT 03/01/2023 1:34 AM CDT Lionel Sher MD LAB BLOOD ORDERABLE S Final Result Performing Organization Address [facility] de Phone Number [facility] Department [place] [address] documented in this encounter Visit Diagnoses Diagnosis Alcohol use disorder- Primary documented in this encounter Discontinued Medications Medication Sig Discontinue Reason Start Date End Da te naltrexone (DEPADE) 50 mg tabletIndications:alco holism Take 1 tablet (50 mg total) by mouth daily for 14 days Reorder 03/01/2023 03/01/2023 chlordiazePOXIDE (LIBRIUM) 25 mg capsuleIndications:Alc ohol Withdrawal Syndrome Take 1 capsule (25 mg [...] withdrawal symptoms for up to 3 days. 11/14/2022 03/01/2023 documented as of this encounter Care Teams Chief Fishery Division Relationship Specialty Start Date End Date Clare Kasper MD PCP - General Family Medicine 07/27/22 documented as of this encounter
--- OUTSIDE RECORDS SUMMARY | 2024-11-04 22:15 | XMS_ITS | Encounter Summary ---
Author Organization [facility] Healthcare Address [address] [place] [address] Care Team Providers Care Assault Amphibious Vehicle Officer Name Role Phone Teresita Painting MD Primary Care Prov ider Encounter Details Date Type Department Care Team (Late st Contact Info) Description 2020 10:10 PM CDT Lab [address] [address] Pre-op testing Social History Tobacco Use Types Packs/Day Years Used Date Smoking Tobacco: Every Day Cigarettes Smokeless Tobacco: Never Comments:8 cigs a day Alcohol Use Standard Drinks/Week Comments Yes 0 (1 standard drink = 0.6 oz pur e alcohol) 4 tall boys a day Sex and Gender Information Value Date Recorded Sex Assigned at Not on file 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 The 2019-Novel Coronavirus Assay (COVID-19) Real Time RT-PCR assay is for in vitro diagnostic use under FDA emergency use authorization only. A negative RT-PCR result does not preclude infection with COVID-19 and should not be used as the sole basis for treatment or other patient management decisions. Additional sample types have been validated according to CLIA regulations. ?? Current Interpretive Data was last revised on 2020. Nasopharyngeal 2020 10 :09 PM CDT 05/13/2020 12:17 AM CDT Narrative [facility] - 05/13/2020 12:01 PM CDT Is the patient experiencing any symptoms consistent with COVID (eg. Fever, cough, shortness of breath)?->No What is the reason for testing?->Screening prior to scheduled (>12 hr) surgery or procedure us Noemi Mccoy MD LAB MICROBIOLOGY - GENERAL O RDERABLES Final Result Performing Organization Address City/State/[facility] Co de Phone Number [facility] Department [place] [address] documented in this encounter Visit Diagnoses Diagnosis Pre-op testing Unspecified pre-operative examination documented in this encounter Care Teams Assault Amphibious Vehicle Officer Relationship Specialty Start Date End Date Teresita Painting MD PCP - General 10/25/19 04/17/21 documented as of this encounter
--- OUTSIDE RECORDS SUMMARY | 2024-11-04 22:15 | XMS_ITS | Encounter Summary ---
Author Organization [facility] Healthcare Address [address] [place] [address] Care Team Providers Care Rigging Up Man Name Role Phone David Feliz MD Primary Care Provide r Encounter Details Date Type Department Care Team (Late st Contact Info) Description 03/25/2022 1:45 PM CDT Office Visit [facility] [address] [facility] [address] [place] [address] Melchor Guerra MD PhD [address] [facility] [address] [place] [address] Primary hypertension (Primary Dx); Healthcare maintenance; Hyperlipidemia, unspecified hyperlipidemia type; Alcohol abuse; Tobacco use; Primary insomnia Social History Tobacco Use Types [...] on file 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 Gender Identity Not on file Sexual Orientation Not on file documented as of this encounter Last Filed Vital Signs Vital Sign Reading Time Taken Comments Blood Pressure 137/75 03/25/2022 2:26 PM CDT Pulse 75 03/25/2022 2:26 PM CDT Temperature 36.7 ??C (98 ??F) 03/25/2022 2:26 PM CDT Respiratory Rate 18 03/25/2022 2:26 PM CDT Oxygen Saturation 100% 03/25/2022 2:26 PM CDT Inhaled Oxygen Concentration - - Weight 48.9 kg (107 lb 14.4 oz) 03/25/2022 2:26 PM CDT Height 170.2 cm (5' 7 ) 03/25/2022 2:26 PM CDT Body Mass Index 16.9 03/25/2022 2:26 PM CDT documented in this encounter Patient Instructions * Patient Instructions* Melchor Guerra MD PhD - 03/25/2022 3:46 PM CDT Please quit smoking and quit drinking. Please see atached information. Please exercise good sleep hygiene. Please see attached information to help you. It was a pleasure seeing you in the office today. If you had any tests done this visit, you should expect a call from me in 2 weeks to discuss the results. If I do not call you, please feel free to call us at [phone]. * Attachments The following attachments cannot be sent through Care Everywhere. * Insomnia (Water Systems Designer) (Taiwanese) * Insomnia (General Information) (Taiwanese) * How to Stop Smoking (Water Systems Designer) (Taiwanese) * Alcohol Use Disorder (Water Systems Designer) (Taiwanese) documented in this encounter Ordered Prescriptions Prescription Sig Dispense Quantity Refills Last Filled Start Date End Date nicotine, polacrilex, 2 mg mini lozenge Apply 1 lozenge (2 mg total) to the mouth or throat every hour as needed (for cigarette craving) 81 each 4 03/25/2022 2 nicotine polacrilex (NICORETTE) 2 mg gum Chew 1 each (2 mg total) every hour as needed for smoking cessation 100 each 4 03/25/2022 2 documented in this encounter Progress Notes * Melchor Guerra MD PhD - 03/25/2022 1:45 PM CDT Primary Care Medicine Clinic - New Patient Visit Patient Name: Yariel Hill : 1970 Today's Date: 03/25/2022 PCP: David Feliz MD Visit Type: ROV SUBJECTIVE CHIEF COMPLAINT No chief complaint on file. HISTORY OF PRESENT ILLNESS Yariel Hill is a 51 y.o. man w/ pmhx significant for HTN, tobacco use, vitamin D deficiency, EtOH use c/b pancreatitis here for a ROV. Wants to discuss prostate screening, concerned if he needs to be screened since got recent colonoscopy. Patient has no urinary symptoms denies hematuria, dysuria, difficulty starting or stopping the stream, nocturia Insomnia Sleep issues are sometimes problem. Patient describes a hard time falling asleep. Tried melatonin without relief. Drinks caffiene pepsi at 9-10pm and sleeps at 2-3am, which is the same time each night. Consumes about 6-7 cans of pepsi in a 24 hour period. Watching TV right up till bedtime. Eats, drinks pepsi in bed while trying to fall asleep while watching TV. Not on phone during bed. Does not read in the bed. No bed partners. Sleeps till about 8-9am. Sleeps soundly throughtout when the does fall asleep. Does not exercise close to bedtime. HTN. Compliant with amlodipine. Takes bp at home 3x a week. Usually runs 128/72 is his average reading per his report. No red flag symptoms. Patient not taking his statin felt that he did not need any more based on discussion with other primary physician. Alcohol abuse History of alcohol abuse. Now drinks socially, feels he chooses to do it. Will not drink for monthsat a time. Then he will drink 6-7 cans of beer a night at a time for a week. No new bouts of pancreatitis, even when he drinks. Denies withdrawal symptoms when he stops drinking. Tobacco abuse Smokes 7 cigarettes a day. Down from 10 a day. Does want to quit. Wants to try gum and lozenges. Healthcare maintenance Patient had colonoscopy in 2020 showed no concerning findings. Patient up-to-date on COVID vaccines. Patient up-to-date on Pneumovax vaccine. Patient interested in the zoster vaccine told him that wedo not do that in his clinic but he can get that and any local drug store like [employer]. MEDICAL and SURGICAL HISTORY Past Medical History: Diagnosis Date ??? Anemia ??? Anxiety ??? Hypertension ??? Pancreatitis ??? Vitamin D deficiency 11/28/2012 Past Surgical History: Procedure Laterality Date ??? CARPAL TUNNEL RELEASE Left 2007 ??? COLONOSCOPY ??? UPPER GASTROINTESTINAL ENDOSCOPY FAMILY HISTORY Family History Problem Relation Age of Onset ??? Kidney cancer Father Cancer, kidney; ??? Other (renal cancer) Father ??? Hypertension Mother Hypertension; SOCIAL HISTORY Social History Socioeconomic History ??? Marital status: Single Tobacco Use ??? Smoking status: Current Every Day Smoker Packs/day: 0.35 Types: Cigarettes ??? Smokeless tobacco: Never Used ??? Tobacco comment: 8 cigs a day Vaping Use ??? Vaping Use: Never used Substance and Sexual Activity ??? Alcohol use: Yes Comment: occasionally ??? Drug use: Never ??? Sexual activity: Not Currently ALLERGIES No Known Allergies HOME MEDICATIONS Current Outpatient Medications: ??? amLODIPine, 10 mg, oral, Daily ??? cholecalciferol, 2,000 Units, oral, Daily ??? fluticasone propionate, 2 spray, each nostril, Daily ??? naltrexone, 50 mg, oral, Daily ??? nicotine polacrilex, 2 mg, mouth/throat, Q1H PRN ??? nicotine (polacrilex), 2 mg, mouth/throat, Q1H PRN ??? rosuvastatin, 20 mg, oral, Daily OBJECTIVE Vitals: BP 137/75 (BP Location: Right arm, Patient Position: Sitting) Pulse 75 Temp 36.7 ??C (98 ??F) (Oral) Resp 18 Ht 170.2 cm (5' 7 ) Wt 48.9 kg (107 lb 14.4 oz) SpO2 100% BMI 16.90 kg/m?? Body mass index is 16.9 kg/m??. Physical Exam Constitutional: NAD, very thin Eyes: PERRL, EOMI, anicteric. HENT: NCAT. Oropharynx normal, moist mucus membranes. Lungs: Clear to auscultation in all lung de leon, unlabored, no wheezes Cardiovascular: RRR, normal S1 and S2, no murmurs, no JVD. GI: Soft, non-tender, non-distended, bowel sounds positive, no organomegaly Skin: No new rashes, lesions or bruises Extremities: Normal without edema or cyanosis Neurologic: AOx4, no gross neurologic deficits Psychiatric: Appropriate affect and mood. Data: Personally reviewed below data with pertinent findings listed: ASSESSMENT AND PLAN Problem List Cardiac and Vasculature Hypertension - Primary (Chronic) Current Assessment & Plan Compliant with amlodipine 10. Taking at home appears adequate and is adequate in the office today. -continue amlodipine 10. Hyperlipidemia Current Assessment & Plan Last lipid panel showed very low LDL [...] history of stroke or coronary artery disease. Mental Health Alcohol abuse (Chronic) Current Assessment & Plan Patient endorses drinking 6-7 beers a day for about a week at a time but will months without drinking at all. Patient feels he is in control of his thinking and does have multi for social reasons. Hedescribes it as a ???vacation?? that he takes from time to time. Patient does not feel any urge todrink. He has not used any resurgence such as AA and help him set drinking. Overall he feels that he has good control of his habit. I advised him to moderate or completely quit drinking given his heavy use in the past. Provided him literature on alcohol use disorder which has methods and to help him quit. Offered naltrexone patient denied. Relevant Medications nicotine polacrilex (NICORETTE) 2 mg gum nicotine, polacrilex, 2 mg mini lozenge Tobacco Tobacco use Current Assessment & Plan Patient is contemplative on his willingness to quit smoking. Does not when he has patches given skin irritation. Patient interested in trying to correct, or nicotine lozenges. Currently smoking about7 cigarettes a day down from 10 cigarettes a day. Patient denies any chest pain shortness a brown difficulty ambulating. Provided him literature on ago quit smoking and encouraged him to quit smoking. Health Encounters Healthcare maintenance Current Assessment & Plan Patient had colonoscopy in May 2021 which was completely normal but the before that there were 2tubular adenomas found. Patient should get another colonoscopy [...] COVID vaccines as well as Pneumovax vaccine. Primary insomnia Patient endorsing difficulty falling sleep. Tried melatonin [...] which is 2-3 a.m. wakes up at 8-9am. Patient describes that once he falls asleep [...] work will reassess insomnia consider initiating more aggressivepharmacological treatment at the time. Today: - Social determinants of health / barriers limiting care: none - Encounter orders: Orders Placed This Encounter ??? nicotine polacrilex (NICORETTE) 2 mg gum ??? nicotine, polacrilex, 2 mg mini lozenge RTC in Return in about 6 months (around 09/25/2022). Melchor Guerra MD PhD 03/25/22 5:15 PM Cosigned by Nyla Elmore MD at 03/25/2022 10:57 PM CDT Associated attestation - Nyla Elmore MD - 03/25/2022 10:57 PM CDT I have seen and examined the patient. I agree with the findings and plan of care as documented in the resident/fellow's note. Nyla Elmore MD documented in this encounter Miscellaneous Notes * Assessment & Plan Note - Melchor Guerra MD PhD - 03/25/2022 5:10 PM CDTAssociated Problem(s): Primary insomnia Patient endorsing difficulty falling sleep. Tried melatonin [...] which is 2-3 a.m. wakes up at 8-9am. Patient describes that once he falls asleep [...] work will reassess insomnia consider initiating more aggressivepharmacological treatment at the time. * Assessment & Plan Note - Melchor Guerra MD PhD - 03/25/2022 5:07 PM CDTAssociated Problem(s): Annual physical exam Patient had colonoscopy in May 2021 which was completely normal but the before that there were 2tubular adenomas found. Patient should get another colonoscopy [...] COVID vaccines as well as Pneumovax vaccine. * Assessment & Plan Note - Melchor Guerra MD PhD - 03/25/2022 5:06 PM CDTAssociated Problem(s): Tobacco use Patient is contemplative on his willingness to quit smoking. Does not when he has patches given skin irritation. Patient interested in trying to correct, or nicotine lozenges. Currently smoking about7 cigarettes a day down from 10 cigarettes a day. Patient denies any chest pain shortness a brown difficulty ambulating. Provided him literature on ago quit smoking and encouraged him to quit smoking. * Assessment & Plan Note - Melchor Guerra MD PhD - 03/25/2022 5:04 PM CDTAssociated Problem(s): Alcohol use disorder Patient endorses drinking 6-7 beers a day for about a week at a time but will months without drinking at all. Patient feels he is in control of his thinking and does have multi for social reasons. Hedescribes it as a ???vacation?? that he takes from time to time. Patient does not feel any urge todrink. He has not used any resurgence such as AA and help him set drinking. Overall he feels that he has good control of his habit. I advised him to moderate or completely quit drinking given his heavy use in the past. Provided him literature on alcohol use disorder which has methods and to help him quit. Offered naltrexone patient denied. * Assessment & Plan Note - Melchor Guerra MD PhD - 03/25/2022 5:01 PM CDTAssociated Problem(s): Hyperlipidemia Last lipid panel showed very low LDL [...] history of stroke or coronary artery disease. * Assessment & Plan Note - Melchor Guerra MD PhD - 03/25/2022 5:01 PM CDTAssociated Problem(s): Hypertension Compliant with amlodipine 10. Taking at home appears adequate and is adequate in the office today. -continue amlodipine 10. * Addendum Note - Nyla Elmore MD - 03/25/2022 1:45 PM CDTAddended by: NYLA ELMORE on: 03/25/2022 11:01 PM Modules accepted: Level of Service documented in this encounter Plan of Treatment [...] as of this encounter Visit Diagnoses Diagnosis Primary hypertension- Primary Unspecified essential hypertension Healthcare maintenance Hyperlipidemia, unspecified hyperlipidemia type Alcohol abuse Nondependent alcohol abuse, unspecified drinking behavior Tobacco use Primary insomnia Persistent disorder of initiating or maintaining sleep documented in this encounter Care Teams Rigging Up Man Relationship Specialty Start Date End Date David Feliz MD PCP - General 04/18/21 07/26/22 documented as of this encounter
--- OUTSIDE RECORDS SUMMARY | 2024-11-04 22:15 | XMS_ITS | Encounter Summary ---
Author Organization [facility] Healthcare Address [address] [place] [address] Care Team Providers Care Overnight Babysitter Name Role Phone Teresita Painting MD Primary Care Prov ider Encounter Details Date Type Department Care Team (Latest Contact Info) Description 05/14/2020 9:02 AM CDT - 05/14/2020 1:14 PM CDT Hospital Encounter [facility] [address] [facility] [address] [place] [address] Noemi Mccoy MD [facility] [address] [place], [place] [id number] Healthcare maintenance Discharge Disposition: Discharge to home or self [...] on file 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 Gender Identity Not on file Sexual Orientation Not on file documented as of this encounter Last Filed Vital Signs Vital Sign Reading Time Taken Comments Blood Pressure 134/74 05/14/2020 12:15 PM CDT Pulse 67 05/14/2020 12:15 PM CDT Temperature 36.5 ??C (97.7 ??F) 05/14/2020 11:55 AM C DT Respiratory Rate 14 05/14/2020 12:15 PM CDT Oxygen Saturation 100% 05/14/2020 12:15 PM CDT Inhaled Oxygen Concentration - - Weight - - Height - - Body Mass Index - - documented in this encounter Discharge Diagnoses Diagnosis Encounter for screening for malignant neoplasm of colon - ENCOUNTER FOR SCREENING FOR MALIGNANT NEOPLASM OF COLON Benign neoplasm of cecum - BENIGN NEOPLASM OF CECUM Benign neoplasm of colon Benign neoplasm of ascending colon - BENIGN NEOPLASM OF ASCENDING COLON Anemia, unspecified - ANEMIA, UNSPECIFIED Anxiety disorder, unspecified - ANXIETY DISORDER, UNSPECIFIED Essential (primary) hypertension - ESSENTIAL (PRIMARY) HYPERTENSION Unspecified essential hypertension Acute pancreatitis without necrosis or infection, unspecified - ACUTE PANCREATITIS WITHOUT NECROSIS OR INFECTION, UNSPECIFIED Nicotine dependence, cigarettes, uncomplicated - NICOTINE DEPENDENCE, CIGARETTES, UNCOMPLICATED ocean transportation intermediary (current) use of inhaled steroids - 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 Room: [facility] 4 Note Status: Finalized Procedure: [...] verified by the physician, the nurse, the bowling ball molder and the avionics electronics technician in the procedure room. Respiratory Examination: [...] was passed under direct vision. The CF [id number] endoscope was introduced through the anus and advanced to the cecum, identified by appendiceal orifice and ileocecal valve. The colonoscopy was performed without difficulty. The patient tolerated the procedure well. The quality of the bowel preparation was adequate to identify polyps 6 mm and larger in size. The quality of the bowel preparation was evaluated using the BBPS ([place] Bowel Preparation Scale) with scores of: Right [...] On: 05/14/2020 11:03 AM Recognized by the [employer] for promoting quality [...] gastric) 05/14/2020 11:28 AM CDT Narrative PATHOLOGY [facility] - 05/15/2020 10:42 AM CDT [facility] results best viewed via link to PDF [facility] [place] [address] SURGICAL PATHOLOGY REPORT FINAL Patient Name: ?? YARIEL HILL Gender: ??M : ??1970 (Age: 50) Address: ??[address] [place] [id number] Hospital #: ??[id number] Taken:05/14/2020 Received:05/14/2020 Reported: 05/15/2020 Patient Type: BJ SDS ?? Service: Gastro Location: [facility] Physician(s): ??Noemi Mccoy M.D. Teresita Painting [...] and/05/14/2020 13:49 PA(s): Consuelo Martino MS, PA ([facility]) By this signature, I attest that the above diagnosis is based upon my personal examination of the slides(and/or other material). Addenda/Procedures The performance characteristics of some immunohistochemical stains, fluorescence in-situ hybridization tests and immunophenotyping by flow cytometry cited in this report (if any) were determined by the Surgical Pathology Department at [facility] as part of an ongoing water quality analyst program and in compliance with federally mandated [...] determined by the Surgical Pathology Department of [facility]. ??It has not been cleared or approved by the U. S. Food and Drug Administration. IMAGES AND SCANNED DOCUMENTS, IF INCLUDED, ONLY VIEWABLE IN PDF VERSION OF REPORT us Noemi Mccoy MD LAB PATHOLOGY ORDERABLES Fin al Result PATHOLOGY [facility] [address]rd Floor [place], [place] [phone] * COLONOSCOPY (05/14/2020 11:03 AM CDT) Anatomical Region Laterality Modality Other Narrative Procedure Note Noemi Mccoy MD - 05/14/2020 11:03 AM CDT [facility] ENDOS[facility] Patient Name: Yariel Hill Procedure Date: 05/14/2020 11:03 AM Date of : 1970 Admit Type: Outpatient Age: 50 Gender: Male Attending MD: Noemi Mccoy M.D. Room: [facility] 4 Note Status: Finalized Procedure: Colonoscopy Indications: Screening for colorectal malignant neoplasm, This is the patient's first colonoscopy Referring MD: Teresita Painting M.D. Providers: Noemi C. Mccoy, M.D. Medicines: Monitored Anesthesia Care Complications: No [...] were verified by the physician,the nurse, the bowling ball molder and the avionics electronics technician in the procedure room. Respiratory Examination: [...] The scope was passed under direct vision.The [id number] endoscope was introduced throughthe anus and [...] On: 05/14/2020 11:03 AM Recognized by the [employer] for promoting quality in endoscopy us Noemi Mccoy MD ENDOSCOPY PROCEDURES Final R esult documented in this encounter Visit Diagnoses Diagnosis Healthcare maintenance Healthcare maintenance documented in this [...] 04/30 documented in this encounter Care Teams Overnight Babysitter Relationship Specialty Start Date End Date Teresita Painting MD PCP - General 10/25/19 04/17/21 documented as of this encounter
--- OUTSIDE RECORDS SUMMARY | 2024-11-04 22:15 | XMS_ITS | Encounter Summary ---
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 73 m2 CRISTY GLOVER Comment: Interpretive [...] was last reviewed 2021. Testing performed by: [address] [address] Blood 01/24/2023 3:41 PM CDT 01/24/2023 3:57 PM CDT us Clare Kasper MD LAB BLOOD ORDERAB LES Final Result CRISTY [address] [facility] Department [place] [address] * Comprehensive metabolic panel (01/24/2023 3:41 PM CDT) Sodium 140 135 - 145 mmol/L CRISTY GLOVER Comment:Testing performed by : [address] [address] Potassium, pl 4.0 3.3 - 4.9 mmol/L CRISTY GLOVER Comment:Testing performed by : [address], [place]., [address] Chloride 104 97 - 110 mmol/L CRISTY Comment:Testing performed by : [address], [place]., [address] CO2 22 22 - 32 mmol/L CRISTY Comment:Testing performed by : [address], [place]., [address] Anion gap 14 2 - 15 mmol/L CRISTY Comment:Testing performed by : [address], [place]., [address] BUN 10 8 - 25 mg/dL CRISTY Comment:Testing performed by : [address], [place]., [address] Creatinine 0.80 0.80 - 1.30 mg/dL CRISTY Comment:Testing performed by : [address], [place]., [address] Glucose 95 70 - 199 mg/dL CRISTY Comment: Interpretive [...] was last revised 2022. Testing performed by: [address] [address] Calcium 9.5 8.5 - 10.3 mg/dL CRISTY Comment:Testing performed by : [address] [address] Bilirubin, total 0.4 0.1 - 1.2 mg/dL CRISTY Comment:Testing performed by : [address] [address] Protein, pl 7.5 6.5 - 8.5 g/dL CRISTY Comment:Testing performed by : [address] [address] Albumin 4.5 3.5 - 5.0 g/dL CRISTY GLOVER Comment:Testing performed by : [address] [address] Alk phos 77 40 - 130 Units/L CRISTY GLOVER Comment:Testing performed by : [address] [address] ALT 12 7 - 55 Units/L CRISTY GLOVER Comment:Testing performed by : [address] [address] AST 26 10 - 50 Units/L CRISTY Comment:Testing performed by : [address] [address] Blood 01/24/2023 3:41 PM CDT 01/24/2023 3:57 PM CDT Clare Kasper MD LAB BLOOD ORDERAB LES Final Result Performing Organization Address City/State/[facility] Phone Number CRISTY [address] [facility] Department [place] [address] * Lipid panel (01/24/2023 3:41 PM CDT) Pathologist [facility] Cholesterol 137 30 - 199 mg/dL CRISTY [...] last revised on 2018. Testing performed by: [address] [address] Triglycerides 77 <=149 mg/dL CRISTY GLOVER Comment: [...] last revised on 2018. Testing performed by: [address] [address] HDL 46 >=40 mg/dL CRISTY Comment: Interpretive Data Ages [...] last revised on 2018. Testing performed by: [address] [address] LDL, calculated 76 <=129 mg/dL CRISTY Comment: Interpretive Data Ages [...] last revised on 2018. Testing performed by: [address] [address] Non-HDL Cholesterol 91 mg/dL CRISYT GLOVER Comment: Interpretive Data Ages < or [...] last revised on 2018. Testing performed by: [address] [address] Chol/HDL ratio 3 CRISTY Comment:Testing performed by : [address] [address] Blood 01/24/2023 3:41 PM CDT 01/24/2023 3:57 PM CDT us Clare Kasper MD LAB BLOOD ORDERAB LES Final Result CRISTY GLOVER [address] [facility] [employer] [place] [address] * Hemoglobin A1c (01/24/2023 3:41 PM CDT) Hgb A1C 5.5 4.0 - 5.6 % CRISTY Comment:Testing performed by : [address] [address] Estimated Average Glucose 111 mg/dL CRISTY Comment: The ADA recommends reporting an estimated Average Glucose (eAG) with all Hemoglobin A1c results using the equation derived from a study of 507 normal and diabetic adults. ??Minority populations were underrepresented and children were not included. ?? (Diabetes Care 31:4329-4882, 2008). ??The eAG is not equivalent to a fasting glucose. Testing performed by: [facility], [address] [place] [address]., [address] Blood 01/24/2023 3:41 PM CDT 01/24/2023 3:57 PM CDT us Clare Kasper MD LAB BLOOD ORDERAB LES Final Result CRISTY [address] [facility] [employer] [place] [address] documented in this encounter Visit Diagnoses Diagnosis Polyuria Hyperlipidemia, unspecified hyperlipidemia type Primary hypertension Unspecified essential hypertension documented in this encounter Care Teams Steam Turbine Operator Relationship Specialty Start Date End Date Clare Kasper MD PCP - General Family Medicine 07/27/22 documented as of this encounter
--- OUTSIDE RECORDS SUMMARY | 2024-11-04 22:15 | XMS_ITS | Encounter Summary ---
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 Made reminder for 7 year colonoscopy repeat documented in this encounter Plan of Treatment [...] on filedocumented in this encounter Care Teams Plastic Design Applier Relationship Specialty Start Date End Date David Feliz MD PCP - General 04/18/21 07/26/22 documented as of this encounter
--- OUTSIDE RECORDS SUMMARY | 2024-11-04 22:15 | XMS_ITS | Encounter Summary ---
Author Organization [facility] Address [address] [place] [address] Phone Care Team Providers Care Heading And Priming Tool Setter Name Role Phone Teresita Painting MD Primary Care Prov ider Encounter Details Date Type Department Care Team (Late st Contact Info) Description 05/21/2020 Documentation [facility] Gastroenterology [address] [facility] 8th [place] [address] [place] [phone] Beckie Gustafson Social History Tobacco Use Types Packs/Day Years Used Date Smoking Tobacco: Every Day Cigarettes Smokeless Tobacco: Never Comments:8 cigs a day Alcohol Use Standard Drinks/Week Comments Yes 0 (1 standard drink = 0.6 oz pur e alcohol) occasionally Sex and Gender Information Value Date Recorded Sex Assigned at Not on file 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 documented in this encounter Plan of Treatment [...] on filedocumented in this encounter Care Teams Heading And Priming Tool Setter Relationship Specialty Start Date End Date Teresita Painting MD PCP - General 10/25/19 04/17/21 documented as of this encounter
--- OUTSIDE RECORDS SUMMARY | 2024-11-04 22:15 | XMS_ITS | Encounter Summary ---
Author Organization [facility] Address [address] [place] [address] Phone Care Team Providers Care Edge Grinder Name Role Phone David Feliz MD Primary Care Provide r Reason for Visit * Reason Onset Date Comments Colonoscopy 05/22/2021 Encounter Details Date Type Department Care Team (Late st Contact Info) Description 05/22/2021 Telephone [facility] Surgery [address] [facility] 8th [place] [address] [place] [address] Daisy Richarsd B.A. 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 - 05/22/2021 1:00 PM CDT Pt called to schedule a colonocopy. I didn't see a referral to [facility] but Dr. Mccoy did his last one and he wanted to stay that physician. Transferred him to GI. documented in this encounter Plan of Treatment [...] on filedocumented in this encounter Care Teams Edge Grinder Relationship Specialty Start Date End Date David Feliz MD PCP - General 04/18/21 07/26/22 documented as of this encounter
--- OUTSIDE RECORDS SUMMARY | 2024-11-04 22:15 | XMS_ITS | Encounter Summary ---
Author Organization [facility] Healthcare Address [address] [place] [address] Care Team Providers Care Pulmonology Physician Name Role Phone Teresita Painting MD Primary Care Prov ider Reason for Visit * Reason Comments Follow-up follow up on platele t count and vitamin d Encounter Details Date Type Department Care Team (Late st Contact Info) Description 11/07/2020 2:20 PM APPLICATIONS SALES CONSULTANT Office Visit [facility] Primary Care Medicine Clinic [address] [facility] [address] [place], [place] [id number] Nyla Bautista MD [address] [facility] [id number] [place] [address] Lionel Busby MD [address] [facility] [place] [address] Vitamin D deficiency (Primary Dx); Thrombocytopenia (CMS/HCC); Essential hypertension; Influenza vaccination administered at current visit Discharge Disposition: Discharge to home or self [...] on file Legal Sex Male 2:37 PM APPLICATIONS SALES CONSULTANT Gender Identity Not on file Sexual Orientation Not on file documented as of this encounter Last Filed Vital Signs Vital Sign Reading Time Taken Comments Blood Pressure 137/80 11/07/2020 2:34 PM APPLICATIONS SALES CONSULTANT Pulse 88 11/07/2020 2:34 PM APPLICATIONS SALES CONSULTANT Temperature 36.8 ??C (98.2 ??F) 11/07/2020 2:29 PM CS T Respiratory Rate 20 11/07/2020 2:29 PM APPLICATIONS SALES CONSULTANT Oxygen Saturation 100% 11/07/2020 2:29 PM APPLICATIONS SALES CONSULTANT Inhaled Oxygen Concentration - - Weight 47.2 kg (104 lb 1.6 oz) 11/07/2020 2:29 P M APPLICATIONS SALES CONSULTANT Height 170.2 cm (5' 7 ) 11/07/2020 2:29 PM APPLICATIONS SALES CONSULTANT Body Mass Index 16.3 11/07/2020 2:29 PM APPLICATIONS SALES CONSULTANT documented in this encounter Patient Instructions * Patient Instructions* Lionel Busby MD - 11/07/2020 2:20 PM APPLICATIONS SALES CONSULTANT Please go to the 4th floor for blood work. I will discuss the results with you on mychart. We are increasing your amlodipine to 10mg daily to help control your blood pressure. Please keep a log of your blood pressure over the next few weeks. Good luck cutting down on smoking! We will schedule a phone/video visit with you in 4 weeks to follow-up on your blood pressure. Discussed discharge instructions with the patient and all questioned fully answered. Patient will call if any problems or questions arise. GO TO 4th floor for lab work. ICATIONS SALES CONSULTANT ICATIONS SALES CONSULTANT documented in this encounter Ordered Prescriptions Prescription Sig Dispense Quantity Refills Last Filled Start Date End Date amLODIPine (NORVASC) 10 mg tabletIndications: Essential hypertension Take 1 tablet (10 mg total) by mouth daily 90 tablet 3 11/07/2020 01/22/2022 documented in this encounter Discharge Disposition Disposition Code Departure Means Destination Discharge to home or self care documented in this encounter Progress Notes * Lionel Busby MD - 11/07/2020 2:20 PM CST Primary Care Medicine Clinic - Office Visit Patient Name: Yariel Hill : 1970 Today's Date: 11/07/2020 PCP: Teresita Painting MD SUBJECTIVE Chief Complaint Chief Complaint Patient presents with ??? Follow-up follow up on platelet count and vitamin d HISTORY OF PRESENT ILLNESS Yariel Hill is a 50 y.o. male hx HTN, tobacco use, vitamin D deficiency, EtOH use c/b pancreatitis who presents as ROV with a chief complaint of Chief Complaint Patient presents with ??? Follow-up follow up on platelet count and vitamin d #HTN: Pt reports adherence to amlodipine 5mg every day - Does not check BP at home - No JADE, palpitaitons - BP initially 150/88, down to 137/80 on recheck #Vitamin D deficiency - Last vit D 16 in 07/2019 - Started on Vit D 50k units weekly and D3 2ku weekly - Due for recheck PAST MEDICAL HISTORY Past Medical History: Diagnosis Date ??? Anemia ??? Anxiety ??? Hypertension ??? Pancreatitis PAST SURGICAL HISTORY Past Surgical History: Procedure Laterality Date ??? CARPAL TUNNEL RELEASE Left 2007 HOME MEDICATIONS HOME MEDICATIONS : amLODIPine (NORVASC) 10 mg tablet cholecalciferol (Vitamin D3) 2000 unit capsule fluticasone (FLONASE) 50 mcg/actuation nasal spray amLODIPine (NORVASC) 5 mg tablet ALLERGIES AND DRUG REACTIONS Allergies as of 11/07/2020 ??? (No Known Allergies) FAMILY HISTORY Family History Problem Relation Age of Onset ??? Kidney cancer Father Cancer, kidney; ??? Hypertension Mother Hypertension; SOCIAL AND FUNCTIONAL HISTORY Social History Socioeconomic History ??? Marital status: Single Spouse name: Not on file ??? Number of children: Not on file ??? Years of education: Not on file ??? Highest education level: Not on file Occupational History ??? Not on file Social Needs ??? Financial resource strain: Not on file ??? Food insecurity Worry: Not on file Inability: Not on file ??? Transportation needs Medical: Not on file Non-medical: Not on file Tobacco Use ??? Smoking status: Current Every Day Smoker Packs/day: 0.35 Types: Cigarettes ??? Smokeless tobacco: Never Used ??? Tobacco comment: 8 cigs a day Substance and Sexual Activity ??? Alcohol use: Yes Comment: occasionally ??? Drug use: Never ??? Sexual activity: Not Currently Lifestyle ??? Physical activity Days per week: Not on file Minutes per session: Not on file ??? Stress: Not on file Relationships ??? Social connections Talks on phone: Not on file Gets together: Not on file Attends mu-ism service: Not on file Active member of club or organization: Not on file Attends meetings of clubs or organizations: Not on file Relationship status: Not on file ??? Intimate partner violence Fear of current or ex partner: Not on file Emotionally abused: Not on file Physically abused: Not on file Forced sexual activity: Not on file Other Topics Concern ??? Not on file Social History Narrative ??? Not on file REVIEW OF SYSTEMS: Review of systems per HPI and otherwise all other systems are negative OBJECTIVE Vitals: Vitals: 11/07/20 1429 11/07/20 1434 BP: 157/97 Comment: Dr Busby is aware. 137/80 Pulse: 107 88 Resp: 20 Temp: 36.8 ??C (98.2 ??F) SpO2: 100% Weight: 47.2 kg (104 lb 1.6 oz) Height: 170.2 cm (5' 7 ) Body mass index is 16.3 kg/m??. Vitals reviewed. Physical exam: Constitutional: NAD. In bed. Eyes: EOMI grossly intact. Anicteric ENT: NCAT. moist mucus membranes. Lungs: Breathing comfortably on RA. Unlabored. Trachea midline. Cardiovascular: RRR, normal S1 and S2. GI: Soft, NT, ND Skin: No new rashes, lesions or bruises Extremities: Normal without edema or cyanosis Neuro: Alert. MAEW. Labs: Lab Results Component Value Date WBC 7.1 06/18/2020 HGB 13.7 06/18/2020 HCT 41.1 06/18/2020 Lab Results Component Value Date SODIUM 139 06/18/2020 POTASSIUM 4.4 06/18/2020 CHLORIDE 102 06/18/2020 CO2 28 06/18/2020 BUNSER 11 06/18/2020 CREATININE 1.01 06/18/2020 GLUCOSE 72 06/18/2020 CALCIUM 9.5 06/18/2020 Lab Results Component Value Date ALT 17 06/18/2020 AST 28 06/18/2020 ALKPHOS 48 06/18/2020 BILITOT 0.5 06/18/2020 ASSESSMENT AND PLAN Yariel Hill is a 50 y.o. male hx tobacco use, EtOH abuse with previous episodes pancreatitis,HTN, vit-d deficiency #HTN: BP at 137/81 today. Above goal - Increasing amlodipine to 10mg every day - Pt to keep BP log, reassess in 2-4 weeks #Vitamin D deficiency - S/p 8 weeks ergocalciferol 50k units weekly; currently taking 2ku D3 weekly - Recheck vitamin D today #Thrombocytopenia Occurred iso pt binge drinking. No rechecks since that time. No recent alcohol intake. No change inurine appearance, polyuria, joint swelling, easy bruising. - Rechecking CBC today #Healthcare maintenance General - A1c (for pts c BP >135/80): 4.9% (05/2018) -> 4.9 05/2020 ??- Lipids (men >35): 204/115/69/101 (07/2019), 169/79/76/71 Cancer ??- Colonoscopy (age 45-75): tubular adenomatous polyps x2 (04/2020); GI recommended repeat in 1-year due to somewhat poor prep ??- Lung (55-80 c >30 pk-yr hx, and smoking in past 15yrs): NA Infectious Disease ??- HIV (age 15-65): NR yearly 05/2018, 07/2019, 05/2020 ??- Gonorrhea/Chlamydia (<24 or increased risk): neg 05/2018 and 07/2019 ??- Syphilis (if increased risk): non-reactive 05/2018 and 07/2019 Immunizations ??- Influenza (annually): Last given 09/29/2018Given today 10/2020 ??- Td/Tdap (q10 years): 2012 ??- PPSV23 (age >65, immunocomp, DM, CKD, heart dz, lung dz, liver dz, EtOH, asplenia):??x2 in 2012 ??- PCV13 (age >65, immunocomp, CKD, asplenia):??06/18/20 Today: -Labs: Vitamin D, CBC -Imaging: none -Referrals: none -Rx: amlodipine to 10mg QD -Immunizations: influenza administered today RTC in Return in about 4 weeks (around 12/05/2020). Lionel Busby MD 11/07/20 4:02 PM Cosigned by Flory De La O MD at 11/07/2020 8:58 PM APPLICATIONS SALES CONSULTANT ICATIONS SALES CONSULTANT ICATIONS SALES CONSULTANT Associated attestation - Flory De La O MD - 11/07/2020 8:58 PM APPLICATIONS SALES CONSULTANT I have personally reviewed with Dr. Busby the history, physical examination, laboratory studies andproposed management for Yariel Hill. Together we formulated a clinical diagnosis for each problem and developed a plan for therapy during or immediately after his clinic visit. I agree with the recommended plan of care. * Neelima Chavez RN - 11/07/2020 2:[address] Busby given report and went into room to examine pt. HB 1500 Patient had flu vaccine after vaccine teaching done verbally and hand out given. Patient indicates understanding and denies questions. Discharge and medication instructions provided by Dr Busby and reiterated by this RN with understanding verbalized. Patient was escorted to check-out desk and discharged home with steady gait. Patient verbalizes understanding of discharge plan through teach back method. An opportunity was provided for follow-up questions, clarification, and then discussed to patient satisfaction. ICATIONS SALES CONSULTANT documented in this encounter Miscellaneous Notes * Addendum Note - Flory De La O MD - 11/07/2020 2:20 PM CSTAddended by: FLORY DE LA O on: 11/07/2020 08:59 PM Modules accepted: Level of Service ICATIONS SALES CONSULTANT documented in this encounter Plan of Treatment [...] as of this encounter Results * (ABNORMAL) CBC with auto differential (11/07/2020 3:27 PM APPLICATIONS SALES CONSULTANT) [facility] WBC 8.0 3.8 - 9.9 K/cumm [facility] Hgb 13.7 13.0 - 17.5 g/dL [facility] Hct 38.6(L) 38.9 - 50.3 % [facility] Plt 207 150 - 400 K/cumm [facility] MPV 9.8 9.1 - 12.3 fL [facility] RBC 4.26(L) 4.30 - 5.80 M/cumm [facility] MCV 90.6 81.3 - 96.4 fL [facility] MCH 32.2 27.1 - 33.3 pg [facility] MCHC 35.5 32.3 - 35.7 g/dL [facility] RDW CV 12.3 11.1 - 14.9 % [facility] RDW SD 40.9 35.7 - 48.1 fL [facility] NRBC abs 0.00 0.00 - 0.01 K/cumm [facility] Blood specimen (specimen) 11/07/2020 3:27 PM APPLICATIONS SALES CONSULTANT 11/07/2020 4:45 PM APPLICATIONS SALES CONSULTANT Lionel Busby MD LAB BLOOD ORDERABLES Carrie l Result Performing Organization Address City/[facility]/ZIP Co de Phone Number [facility] Department [place] [address] * (ABNORMAL) Vitamin D 25 hydroxy (11/07/2020 3:27 PM APPLICATIONS SALES CONSULTANT) Vitamin D 25-OH 27(L) 30 - 80 ng/mL [facility] Blood specimen (specimen) 11/07/2020 3:27 PM APPLICATIONS SALES CONSULTANT 11/07/2020 4:45 PM APPLICATIONS SALES CONSULTANT Lionel Busby MD LAB BLOOD ORDERABLES Carrie l Result Performing Organization Address [facility] Co de Phone Number [facility] [place] [address] documented in this encounter Visit Diagnoses Diagnosis Vitamin D deficiency- Primary Thrombocytopenia (HCC) Unspecified thrombocytopenia Essential hypertension Unspecified essential hypertension Influenza vaccination administered at current visit documented in this encounter Discontinued Medications Medication Sig Discontinue Reason Start Date End Da te amLODIPine (NORVASC) 5 mg tabletIndications:Deidra al hypertension Take 1 tablet (5 mg total) by mouth daily Reorder 10/26/2019 11/07/2020 documented as of this encounter Care Teams Pulmonology Physician Relationship Specialty Start Date End Date Teresita Painting MD PCP - General 10/25/19 04/17/21 documented as of this encounter
--- OUTSIDE RECORDS SUMMARY | 2024-11-04 22:15 | XMS_ITS | Encounter Summary ---
Author Organization [facility] Address [address] [place] [address] Care Team Providers Care Engraving Press Operator Name Role Phone Clare Kasper MD Primary Care Pro vider Reason for Visit * Reason Comments Eczema Alcohol Problem Pt stated he wanted to let dr know he has be drinking since and had a half beer this morning before coming into office Encounter Details Date Type Department Care Team (Late st Contact Info) Description 09/30/2022 8:45 AM UPS DRIVER Office Visit [facility] Primary Care [address] [place] [address] Clare Kasper MD [facility] [facility] [address] [place] [address] Eczema, unspecified type (Primary Dx); Alcohol abuse; Routine screening for STI (sexually transmitted infection) [...] Average Number of Drinks Not on file 09/27/2 022 Frequency of Binge Drinking Not on file 07/02 PHQ-2 Answer Date Recorded PHQ-2 Total Score (If total score is 3 or more points, staff should administer the PHQ-9) 0 07/27/2022 Sex and Gender Information Value Date Recorded Sex Assigned at Not on file 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 Gender Identity Not on file Sexual Orientation Not on file documented as of this encounter Last Filed Vital Signs Vital Sign Reading Time Taken Comments Blood Pressure 122/82 09/30/2022 8:42 AM UPS DRIVER Pulse 78 09/30/2022 8:42 AM UPS DRIVER Temperature 36.5 ??C (97.7 ??F) 09/30/2022 8:42 AM CS T Respiratory Rate 18 09/30/2022 8:42 AM UPS DRIVER Oxygen Saturation 99% 09/30/2022 8:42 AM UPS DRIVER Inhaled Oxygen Concentration - - Weight 50.4 kg (111 lb 1.6 oz) 09/30/2022 8:42 A M UPS DRIVER Height 170.2 cm (5' 7 ) 09/30/2022 8:42 AM UPS DRIVER Body Mass Index 17.4 09/30/2022 8:42 AM UPS DRIVER documented in this encounter Patient Instructions * Attachments The following attachments cannot be sent through Care Everywhere. * Eczema (Instrumentation Instructor) (Azerbaijani) * Alcohol Withdrawal (Instrumentation Instructor) (Azerbaijani) documented in this encounter Ordered Prescriptions Prescription Sig Dispense Quantity Refills Last Filled Start Date End Date triamcinolone (KENALOG) 0.1 % ointmentIndication s:Eczema, unspecified type Apply topically 2 (two) times a day as needed for irritation or rash Do not use daily for more than 2 weeks at a time 30 g 09/30/2022 documented in this encounter Progress Notes * Clare Kasper MD - 09/30/2022 8:45 AM CST Images from the original note were not included. Assessment/Plan: Assessment/Plan Diagnoses and all orders for this visit: Eczema, unspecified type (Primary) Comments: Discussed/given handout on supportive treatment Topical steroids prn Orders: - triamcinolone (KENALOG) 0.1 % ointment; Apply topically 2 (two) times a day as needed for irritation or rash Do not use daily for more than 2 weeks at a time Alcohol abuse Assessment & Plan: No withdrawal symptoms currently Discussed I don't feel comfortable prescribing librium in outpatient setting given history of seizure withdrawal Strict return/ED precautions discussed Routine screening for STI (sexually transmitted infection) - HIV 1/2 Antibody plus p24 Antigen Blood; Future F/u if symptoms not improving or worsen. Strict return/ED precautions discussed. Subjective: Yariel Hill is a 52 y.o. male here for eczema and alcohol Alcohol Problem Chief Complaint Patient presents with Eczema Alcohol Problem Pt stated he wanted to let know he has be drinking since and had a half beer this morning before coming into office Took librium yesterday from previous prescription from [facility] and overnight, but still shaky this Am so that is why he had the 1/2 beer as now out of librium Has previously had seizures during withdrawal in 1995 after which he was sober x10y Eczema on arms and legs with dry skin that progresses to pruritic bumps Using zest soap on body, uses dove sensitive on face which helps Using tide detergent Review of Systems Skin: Positive for rash. Neurological: Positive for tremors (this morning, now resolved). Objective: Vital signs were reviewed. Vitals: 09/30/22 0842 BP: 122/82 BP Location: Left arm Patient Position: Sitting Pulse: 78 Resp: 18 Temp: 36.5 ??C (97.7 ??F) TempSrc: Temporal SpO2: 99% Weight: 50.4 kg (111 lb 1.6 oz) Height: 170.2 cm (5' [...] appropriate judgment and insight Clare Kasper MD DRIVER documented in this encounter Miscellaneous Notes * Assessment & Plan Note - Clare Kasper MD - 09/30/2022 9:02 AM CSTAssociated Problem(s): Alcohol use disorder No withdrawal symptoms currently Discussed I don't feel comfortable prescribing librium in outpatient setting given history of seizure withdrawal Strict return/ED precautions discussed DRIVER documented in this encounter Plan of Treatment [...] documented as of this encounter Results * HIV 1/2 Antibody plus p24 Antigen Blood (09/30/2022 9:42 AM UPS DRIVER) HIV 1/2 ab + p24 ag Nonreactive Nonreactive [facility] Comment: Nonreactive for HIV-1 antigen and HIV-1/HIV-2 antibodies. No laboratory evidence of HIV infection. If acute HIV infection is suspected, consider testing for HIV-1 RNA. Blood 09/30/2022 9:42 AM UPS DRIVER 09/30/2022 12:52 PM UPS DRIVER Clare Kasper MD LAB MICROBIOLOGY - GENERAL ORDERABLES Final Result Performing Organization Address City/State/ZIP Co ok Phone Number [facility] [place] [address] documented in this encounter Visit Diagnoses Diagnosis Eczema, unspecified type- Primary Alcohol abuse Nondependent alcohol abuse, unspecified drinking behavior Routine screening for STI (sexually transmitted infection) Screening examination for venereal disease documented in this encounter Discontinued Medications Medication Sig Discontinue Reason Start Date End Da te nicotine, polacrilex, 2 mg mini lozenge Apply 1 lozenge (2 mg total) to the mouth or throat every hour as needed (for cigarette craving) Therapy completed 03/25/2022 09/30/2022 nicotine polacrilex (NICORETTE) 2 mg gum Chew 1 each (2 mg total) every hour as needed for smoking cessation Therapy completed 03/25/2022 09/30/2022 fluticasone propionate (FLONASE) 50 mcg/actuation nasal sprayIndications:Sinus congestion Administer 2 sprays into each nostril daily Therapy completed 12/08/2020 09/30/2022 cholecalciferol (Vitamin D3) 2000 unit capsuleIndications:Vit syed D deficiency Take 1 capsule (2,000 Units total) by mouth daily Therapy completed 06/18/2020 09/30/2022 documented as of this encounter Care Teams Engraving Press Operator Relationship Specialty Start Date End Date Clare Kasper MD PCP - General Family Medicine 07/27/22 documented as of this encounter
--- OUTSIDE RECORDS SUMMARY | 2024-11-04 22:15 | XMS_ITS | Encounter Summary ---
Author Organization [facility] Healthcare Address [address] [place] [address] Care Team Providers Care Industrial Design Engineer Name Role Phone Teresita Painting MD Primary Care Prov ider Encounter Details Date Type Department Care Team (Late st Contact Info) Description 11/10/2020 Telephone [facility] [address] [facility] [address] [place] [address] Lionel Busby MD [address] [facility] [place] [place] [address] Social History Tobacco Use Types Packs/Day Years Used Date Smoking Tobacco: Every Day Cigarettes Smokeless Tobacco: Never Comments:8 cigs a day Alcohol Use Standard Drinks/Week Comments Yes 0 (1 standard drink = 0.6 oz pur e alcohol) occasionally Sex and Gender Information Value Date Recorded Sex Assigned at Not on file Legal Sex Male 2:37 PM SEROLOGIST Gender Identity Not on file Sexual Orientation Not on file documented as of this encounter Ordered Prescriptions Prescription Sig Dispense Quantity Refills Last Filled Start Date End Date ergocalciferol (VITAMIN D) 50,000 unit capsule Take 1 capsule (50,000 Units total) by mouth once a week 8 capsule 11/10/2020 documented in this encounter Miscellaneous Notes * Telephone Encounter - Lionel Busby MD - 11/10/2020 2:59 PM SEROLOGIST Reviewed labs with pt. Giving 8 week course vid D 50k units weekly. Lionel Busby MD LOGIST documented in this encounter Plan of Treatment [...] on filedocumented in this encounter Care Teams Industrial Design Engineer Relationship Specialty Start Date End Date Teresita Painting MD PCP - General 10/25/19 04/17/21 documented as of this encounter
--- OUTSIDE RECORDS SUMMARY | 2024-11-04 22:15 | XMS_ITS | Encounter Summary ---
Author Organization [facility] Healthcare Address [address] [place] [address] Care Team Providers Care Relay Adjuster Name Role Phone David Feliz MD Primary Care Provide r Reason for Visit * Reason Comments Follow-up Pain toothache, patient b roke tooth on left side Encounter Details Date Type Department Care Team (Late st Contact Info) Description 05/13/2021 1:30 PM CDT Office Visit [facility] Primary [facility] Medicine Clinic [address] [facility] [address] [place] [address] Nyla Bautista MD [address] [facility] [id number] [place] [address] Lionel Busby MD [address] [facility] [place] [address] Open fracture of tooth, initial encounter (Primary Dx); Adenomatous polyp; Onychomycosis; Alcohol abuse; Smoking Discharge Disposition: Discharge to home or self [...] on file 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 Gender Identity Not on file Sexual Orientation Not on file documented as of this encounter Last Filed Vital Signs Vital Sign Reading Time Taken Comments Blood Pressure 135/77 05/13/2021 1:41 PM CDT Pulse 84 05/13/2021 1:41 PM CDT Temperature 36.9 ??C (98.4 ??F) 05/13/2021 1:41 PM CD T Respiratory Rate 18 05/13/2021 1:41 PM CDT Oxygen Saturation 100% 05/13/2021 1:41 PM CDT Inhaled Oxygen Concentration - - Weight 48.3 kg (106 lb 8 oz) 05/13/2021 1:41 PM CDT Height 170.2 cm (5' 7 ) 05/13/2021 1:41 PM CDT Body Mass Index 16.68 05/13/2021 1:41 PM CDT documented in this encounter Patient Instructions * Patient Instructions* Lionel Busby MD - 05/13/2021 1:30 PM CDT I put in a request for your colonoscopy. Expect a call to schedule this. If you don't hear from [facility] within a week call [phone] to arrange your colonoscopy. We are starting rosuvastatin 20mg every day to reduce your cholesterol and risk of heart attack or stroke. Please call if you have any new muscle aches or pains. We are starting terbinafine 250mg by mouth daily for your toenail infection. Take this every day for 12 weeks to treat this infection. Please call if you are worried you might start drinking heavily. We are starting naltrexone 50mg by mouth daily to reduce the craving for alcohol. I recommend you call to schedule dental care at one of the following clinics if you are not alreadyestablished with a dentist office: ??? [facility]: Includes Urgent Care and Walk-in cases o [address] [place] [address] o [phone] ??? [facility] [place] o [address], [place] [address] o ??? [facility] o [address] [place] [address] o documented in this encounter Ordered Prescriptions Prescription Sig Dispense Quantity Refills Last Filled Start Date End Date naltrexone (DEPADE) 50 mg tablet Take 1 tablet (50 mg total) by mouth daily 90 tablet 3 05/13/2021 05/13/2022 rosuvastatin (CRESTOR) 20 mg tablet Take 1 tablet (20 mg total) by mouth daily 90 tablet 3 05/13/2021 07/28/2022 terbinafine (LamiSIL) 250 mg tablet Take 1 tablet (250 mg total) by mouth daily 84 tablet 05/13/2021 08/05/2021 documented in this encounter Discharge Disposition Disposition Code Departure Means Destination Discharge to home or self care documented in this encounter Progress Notes * Lionel Busby MD - 05/13/2021 1:30 PM CDT Primary Care Medicine Clinic - Office Visit Patient Name: Yariel Hill : 1970 Today's Date: 05/13/2021 PCP: David Feliz MD SUBJECTIVE Chief Complaint Chief Complaint Patient presents with ??? Follow-up ??? Pain toothache, patient broke tooth on left side HISTORY OF PRESENT ILLNESS Yariel Hill is a 51 y.o. male hx HTN, tobacco use, vitamin D deficiency, EtOH use c/b pancreatitis who presents as ROV with a chief complaint of tooth pain, and toenail growth #Tooth pain - Tooth broke (L top incisor) biting down on frozen chocolate 3 weeks ago - Pain with eating, drinking anything cold, and or manipulate the tooth or the area - No f/c, drainage - Pts dentist not able to see him until 06/08/2021 #Toenail growth - Toenails yellowed and thickened. Difficult to trim - Chronic problem over several years. Previously diagnosed with onychomycosis and prescribed terbinafine but the pt did not want to take this as he was drinking more frequently at the time #Tobacco use: Smoking ~ 8 cigarettes a day. Contemplative but not interested in nicotine replacement or other drug options. #EtOH abuse: Pt goes long periods without drinking but when he does drink will have 5+ drinks a dayfor several days in a row. Estimates he drinks 45 days in the year. Never with withdrawal symptoms.Interested in medications that may help with alcohol cessation. PAST MEDICAL HISTORY Past Medical History: Diagnosis Date ??? Anemia ??? Anxiety ??? Hypertension ??? Pancreatitis ??? Vitamin D deficiency 11/28/2012 PAST SURGICAL HISTORY Past Surgical History: Procedure Laterality Date ??? CARPAL TUNNEL RELEASE Left 2008 HOME MEDICATIONS HOME MEDICATIONS : amLODIPine (NORVASC) 10 mg tablet cholecalciferol (Vitamin D3) 2000 unit capsule fluticasone propionate (FLONASE) 50 mcg/actuation nasal spray naltrexone (DEPADE) 50 mg tablet rosuvastatin (CRESTOR) 20 mg tablet terbinafine (LamiSIL) 250 mg tablet amLODIPine (NORVASC) 5 mg tablet ALLERGIES AND DRUG REACTIONS Allergies as of 05/13/2021 ??? (No Known Allergies) FAMILY HISTORY Family [...] file Occupational History ??? Not on file Tobacco Use ??? Smoking status: Current Every Day Smoker Packs/day: 0.35 Types: Cigarettes ??? Smokeless tobacco: Never Used ??? Tobacco comment: 8 cigs a day Substance and Sexual Activity ??? Alcohol use: Yes Comment: occasionally ??? Drug use: Never ??? Sexual activity: Not Currently Other Topics Concern ??? Not on file Social History Narrative ??? Not on file Social Determinants of Health Financial Resource Strain: ??? Difficulty of Paying Living Expenses: Food Insecurity: ??? Worried About Running Out of Food in the Last Year: ??? Ran Out of Food in the Last Year: Transportation Needs: ??? Lack of Transportation (Medical): ??? Lack of Transportation (Non-Medical): Physical Activity: ??? Days of Exercise per Week: ??? Minutes of Exercise per Session: Stress: ??? Feeling of Stress : Social Connections: ??? Frequency of Communication with Friends and Family: ??? Frequency of Social Gatherings with Friends and Family: ??? Attends Holiness Services: ??? Active Member of Clubs or Organizations: ??? Attends Club or Organization Meetings: ??? Marital Status: Intimate Partner Violence: ??? Fear of Current or Ex-Partner: ??? Emotionally Abused: ??? Physically Abused: ??? Sexually Abused: REVIEW OF SYSTEMS: Review of systems per HPI and otherwise all other systems are negative OBJECTIVE Vitals: Vitals: 05/13/21 1341 BP: 135/77 BP Location: Right arm Patient Position: Sitting Pulse: 84 Resp: 18 Temp: 36.9 ??C (98.4 ??F) TempSrc: Oral SpO2: 100% Weight: 48.3 kg (106 lb 8 oz) Height: 170.2 cm (5' 7 ) Body mass index is 16.68 kg/m??. Vitals reviewed. Physical exam: Constitutional: NAD. In bed. Eyes: EOMI grossly intact. Anicteric ENT: NCAT. moist mucus membranes. Broken L upper incissor Lungs: Breathing comfortably on RA. Unlabored. Trachea midline. Cardiovascular: RRR, normal S1 and S2. GI: Soft, NT, ND Skin: No new rashes, lesions or bruises Extremities: Normal without edema or cyanosis. B/l feet with ele horn toe nails. Neuro: Alert. MAEW. Labs: Lab Results Component Value Date WBC 8.0 11/07/2020 HGB 13.7 11/07/2020 HCT 38.6 (L) 11/07/2020 Lab Results Component Value Date SODIUM 139 06/18/2020 POTASSIUM 4.4 06/18/2020 CHLORIDE 102 06/18/2020 CO2 28 06/18/2020 BUNSER 11 06/18/2020 CREATININE 1.01 06/18/2020 GLUCOSE 72 06/18/2020 CALCIUM 9.5 06/18/2020 Lab Results Component Value Date ALT 17 06/18/2020 AST 28 06/18/2020 ALKPHOS 48 06/18/2020 BILITOT 0.5 06/18/2020 ASSESSMENT AND PLAN Yariel Hill is a 51 y.o. male hx tobacco use, EtOH abuse with previous episodes pancreatitis,HTN, vit-d deficiency presenting for ROV with broken tooth and onychomycosis. #Broken tooth: L upper incisor. No signs or symptoms c/f infection. Causing frequent pain/discomfort. - Provided with community dental resources including urgent care #Onychomycosis: B/l feet. - Start terbinafine 250mg daily for 12 week course - Counseled pt to call clinic if he felt like he might start drinking more so we could transition over to topical medication - LFTs in at next visit to evaluate for tranaminitis #EtOH abuse: Binge drinking behavior interrupted by long periods of sobriety. Never with withdrawalsx. Previously c/b alcoholic pancreatitis. - Starting on naltrexone 50mg QD #HTN: - Cont amlodipine 10 - Keep BP log #Healthcare maintenance General - A1c (for pts c BP >135/80): 4.9% (05/2018) -> 4.9 05/2020 ??- Lipids (men >35): 204/115/69/101 (07/2019), 169/79/76/71. Starting rosuvastatin 20 for elevated ASCVD risk score Cancer ??- Colonoscopy (age 45-75): tubular adenomatous polyps x2 (04/2020); GI recommended repeat in 1-year due to poor prep. Referral placed today ??- Lung (55-80 c >30 pk-yr hx, and smoking in past 15yrs): NA Infectious Disease ??- HIV (age 15-65): NR yearly 05/2018, 07/2019, 05/2020 ??- Gonorrhea/Chlamydia (<24 or increased risk): neg 05/2018 and 07/2019 ??- Syphilis (if increased risk): non-reactive 05/2018 and 07/2019 Immunizations ??- Influenza (annually): Last given 10/2020 ??- Td/Tdap (q10 years): 2012 ??- PPSV23 (age >65, immunocomp, DM, CKD, heart dz, lung dz, liver dz, EtOH, asplenia):??x2 in 2012 ??- PCV13 (age >65, immunocomp, CKD, asplenia):??06/18/20 - Completed COVID vaccination Today: -Labs: none -Imaging: none -Referrals: none -Rx: Terbinafine, naltrexone -Immunizations: None RTC in Return in about 3 months (around 08/13/2021). Lionel Busby MD 05/13/21 5:05 PM Cosigned by Vasu Young at 05/14/2021 11:04 AM CDT Associated attestation - Vasu Young - 05/14/2021 11:04 AM CDT I have personally reviewed with Dr. Busby the history, physical examination, laboratory studies andproposed management for Yariel Hill. Together we formulated a clinical diagnosis for each problem and developed a plan for therapy during or immediately after his clinic visit. I agree with the recommended plan of care. Additional Notes: None. documented in this encounter Plan of Treatment [...] as of this encounter Visit Diagnoses Diagnosis Open fracture of tooth, initial encounter- Primary Adenomatous polyp Benign neoplasm of unspecified site Onychomycosis Dermatophytosis of nail Alcohol abuse Nondependent alcohol abuse, unspecified drinking behavior Smoking Tobacco use disorder documented in this encounter Discontinued Medications Medication Sig Discontinue Reason Start Date End Da te amLODIPine (NORVASC) 5 mg tablet TAKE ONE TABLET BY MOUTH ONCE DAILY 01/28/2021 05/13/2021 documented as of this encounter Care Teams Relay Adjuster Relationship Specialty Start Date End Date David Feliz MD PCP - General 04/18/21 07/26/22 documented as of this encounter
--- OUTSIDE RECORDS SUMMARY | 2024-11-04 22:15 | XMS_ITS | Encounter Summary ---
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 GONORRHOEAE/C. TRACHOMATIS AMPLIFICATION Routine 07/27/2022 5:20 PM CDT Annual physical exam EGFR Routine 07/27/2022 5:14 PM CDT Primary hypertension Hyperlipidemia, unspecified hyperlipidemia type Annual physical exam DIFFERENTIAL AUTO Routine 07/27/2022 5:1 4 PM CDT Annual physical exam PSA SCREEN Routine 07/27/2022 5:14 PM CDT Annual physical exam HIV 1/2 ANTIBODY PLUS P24 ANTIGEN Routine 07/27/2022 5:14 PM CDT Annual physical exam CBC WITH AUTO DIFFERENTIAL Routine 07/27/2022 5:14 PM CDT Annual physical exam HEPATITIS PANEL, ACUTE Routine 07/27/2022 5:14 PM CDT Annual physical exam VITAMIN D 25 HYDROXY Routine 07/27/2022 5:14 PM CDT Vitamin D deficiency RPR Routine 07/27/2022 5:14 PM CDT Annual physical exam HEMOGLOBIN A1C Routine 07/27/2022 5:14 PM CDT Primary hypertension Hyperlipidemia, unspecified hyperlipidemia type Annual physical exam LIPID PANEL Routine 07/27/2022 5:14 PM CDT Primary hypertension Hyperlipidemia, unspecified hyperlipidemia type Annual physical exam COMPREHENSIVE METABOLIC PANEL Routine 07/27/2022 5:14 PM CDT Primary hypertension Hyperlipidemia, unspecified hyperlipidemia type Annual physical exam documented in this encounter Results * N. gonorrhoeae/C. trachomatis Amplification Urine (07/27/2022 5:20 PM CDT) C. trachomatis Not Detected Not Detected CRISTY [facility] Comment:Testing performed by : [facility], [address] [place] [address]., [address] N. gonorrhoeae Not Detected Not Detected CRISTY GLOVER Comment: Interpretive Data Testing performed by the [facility]. This assay detects Chlamydia trachomatis and Neisseria gonorrhoeae by nucleic acid amplification testing (NAAT). This test is approved by the [place] Food and Drug Administration and the performance characteristics have been verified by the laboratory. The performance characteristics of this test have not been evaluated in individuals less than 14 years of age. Current Interpretive Data was last revised on 2019. Testing performed by: [facility], [address] [place] [address]., [address] Urine (None) 07/27/2022 5:20 PM CDT 07/27/2022 6:27 PM CDT us Clare Kasper MD LAB MICROBIOLOGY - GENERAL ORDERABLES Final Result Performing Organization Address [facility] de Phone Number CRISTY [address] [facility] [place] [address] * eGFR (07/27/2022 5:14 PM CDT) Pathologist [facility] eGFR 81 mL/min/1. 73 m2 CRISTY Comment: Interpretive Data Reference Interval Normal ?>/= [...] was last reviewed 2021. Testing performed by: [facility], [address] [place] [address]., [address] Blood 07/27/2022 5:14 PM CDT 07/27/2022 5:18 PM CDT Clare Kasper MD LAB BLOOD ORDERAB LES Final Result Performing Organization Address City/[facility] Co de Phone Number CRISTY [address] [facility] Department of Laboratories [place] [phone] * Differential, auto (07/27/2022 5:14 PM CDT) Neutrophil abs 4.8 1.7 - 6.5 K/cumm CRISTY Comment:Testing performed by : [address] [address] Imm gran abs 0.0 0.0 - 0.1 K/cumm CRISTY Comment:Testing performed by : [address] [address] Lymphocyte abs 2.4 0.8 - 3.3 K/cumm CRISTY Comment:Testing performed by : [address] [address] Monocyte abs 0.7 0.2 - 0.8 K/cumm CRISTY Comment:Testing performed by : [address] [address] Eosinophil abs 0.2 0.0 - 0.5 K/cumm CRISTY Comment:Testing performed by : [address] [address] Basophil abs 0.1 0.0 - 0.1 K/cumm [facility] performed by : [address] [address] Neutrophil pct 59.3 % [facility] Comment: Interpretive Data Percent cell count reference ranges are not reported, since discordance with absolute values may lead to misinterpretation of CBC data. Current Interpretive Data was last revised on 2018. Testing performed by: [address] [address] Imm gran pct 0.1 % [facility] Comment: Interpretive Data Percent cell count reference ranges are not reported, since discordance with absolute values may lead to misinterpretation of CBC data. Current Interpretive Data was last revised on 2018. Testing performed by: [address] [address] Lymphocyte pct 29.1 % [facility] Comment: Interpretive Data Percent cell count reference ranges are not reported, since discordance with absolute values may lead to misinterpretation of CBC data. Current Interpretive Data was last revised on 2018. Testing performed by: [address] [address] Monocyte pct 8.1 % CRISTY GLOVER Comment: Interpretive Data Percent cell count reference ranges are not reported, since discordance with absolute values may lead to misinterpretation of CBC data. Current Interpretive Data was last revised on 2018. Testing performed by: [address] [address] Eosinophil pct 2.5 % C[facility]STY GLOVER Comment: Interpretive Data Percent cell count reference ranges are not reported, since discordance with absolute values may lead to misinterpretation of CBC data. Current Interpretive Data was last revised on 2018. Testing performed by: [address] [address] Basophil pct 0.9 % CRISTY GLOVER Comment: Interpretive Data Percent cell count reference ranges are not reported, since discordance with absolute values may lead to misinterpretation of CBC data. Current Interpretive Data was last revised on 2018. Testing performed by: [address] [address] Blood 07/27/2022 5:14 PM CDT 07/27/2022 5:18 PM CDT us Clare Kasper MD LAB BLOOD ORDERAB LES Final Result [facility] [address] [facility] Department [place] [address] * (ABNORMAL) CBC with auto differential (07/27/2022 5:14 PM CDT) WBC 8.1 3.8 - 9.9 K/cumm CRISTY GLOVER Comment:Testing performed by : [address] [address] Hgb 14.3 13.0 - 17.5 g/dL CRISTY GLOVER Comment:Testing performed by : [address] [address] Hct 42.1 38.9 - 50.3 % CRISTY GLOVER Comment:Testing performed by : [address] [address] Plt 261 150 - 400 K/cumm CRISTY GLOVER Comment:Testing performed by : [address] [address] MPV 9.0(L) 9.1 - 12.3 fL C[facility]STY GLOVER Comment:Testing performed by : [address] [address] RBC 4.35 4.30 - 5.80 M/cumm CRISTY GLOVER Comment:Testing performed by : [address] [address] MCV 96.8(H) 81.3 - 96.4 fL CRISTY GLOVER Comment:Testing performed by : [address] [address] MCH 32.9 27.1 - 33.3 pg CRISTY GLOVER Comment:Testing performed by : [address] [address] MCHC 34.0 32.3 - 35.7 g/dL C[facility]STY GLOVER Comment:Testing performed by : [address] [address] RDW CV 13.8 11.1 - 14.9 % CRISTY GLOVER Comment:Testing performed by : [address] [address] RDW SD 49.1(H) 35.7 - 48.1 fL CRISTY GLOVER Comment:Testing performed by : [address] [address] NRBC abs 0.00 0.00 - 0.01 K/cumm C[facility]ST[facility] GLOVER Comment:Testing performed by : [address] [address] Blood 07/27/2022 5:14 PM CDT 07/27/2022 5:18 PM CDT us Clare Kasper MD LAB BLOOD ORDERAB LES Final Result [facility] [address] [facility] Department [place] [address] * (ABNORMAL) Comprehensive metabolic panel (07/27/2022 5:14 PM CDT) Sodium 139 135 - 145 mmol/L CRISTY Comment:Testing performed by : [address] [address] Potassium, pl 4.1 3.3 - 4.9 mmol/L CRISTY Comment:Testing performed by : [address] [address] Chloride 102 97 - 110 mmol/L CRISTY Comment:Testing performed by : [address] [address] CO2 27 22 - 32 mmol/L CRISTY Comment:Testing performed by : [address] [address] Anion gap 10 2 - 15 mmol/L CRISTY Comment:Testing performed by : [address] [address] BUN 7(L) 8 - 25 mg/dL CRISTY Comment:Testing performed by : [address] [address] Creatinine 1.10 0.80 - 1.30 mg/dL CRISTY Comment:Testing performed by : [address] [address] Glucose 82 70 - 199 mg/dL CRISTY Comment: Interpretive [...] Current interpretive data was last revised 2017. Testing performed by: [address] [address] Calcium 10.0 8.5 - 10.3 mg/dL CRISTY Comment:Testing performed by : [address] [address] Bilirubin, total 0.3 0.1 - 1.2 mg/dL CRISTY Comment:Testing performed by : [address] [address] Protein, pl 7.7 6.5 - 8.5 g/dL CRISTY Comment:Testing performed by : [address], [facility], [address] Albumin 5.0 3.5 - 5.0 g/dL CRISTY Comment:Testing performed by : [address], [address] Alk phos 60 40 - 130 Units/L CRISTY Comment:Testing performed by : [address], [address] ALT 14 7 - 55 Units/L CRISTY Comment:Testing performed by : [address], [address] AST 21 10 - 50 Units/L CRISTY Comment:Testing performed by : [address] [address] Blood 07/27/2022 5:14 PM CDT 07/27/2022 5:18 PM CDT us Clare Kasper MD LAB BLOOD ORDERAB LES Final Result Performing Organization Address [facility] Co de Phone Number [facility] [address] [facility] Department [place] [address] * Lipid panel (07/27/2022 5:14 PM CDT) [facility] Cholesterol 193 30 - 199 mg/dL CRISTY Comment: Interpretive [...] last revised on 2018. Testing performed by: [facility], [address] [place] [address]., [address] Triglycerides 71 <=149 mg/dL CRISTY Comment: Interpretive Data Ages [...] last revised on 2018. Testing performed by: [address] [address] HDL 56 >=40 mg/dL CRISTY Comment: Interpretive Data Ages [...] last revised on 2018. Testing performed by: [address] [address] LDL, calculated 123 <=129 mg/dL CRISTY Comment: Interpretive Data Ages [...] last revised on 2018. Testing performed by: [address] [address] Non-HDL Cholesterol 137 mg/dL CRISTY Comment: Interpretive Data Ages < [...] last revised on 2018. Testing performed by: [address] [address] Chol/HDL ratio 3 CRISTY Comment:Testing performed by : [address] [address] Blood 07/27/2022 5:14 PM CDT 07/27/2022 5:18 PM CDT Clare Kasper MD LAB BLOOD ORDERAB LES Final Result Performing Organization Address [facility] de Phone Number [facility] [address] [facility] [place] [address] * Hemoglobin A1c (07/27/2022 5:14 PM CDT) Pathologist [facility] Hgb A1C 5.0 4.0 - 5.6 % CRISTY Comment:Testing performed by : [address] [address] Estimated Average Glucose 97 mg/dL CRISTY Comment: The ADA recommends reporting an estimated Average Glucose (eAG) with all Hemoglobin A1c results using the equation derived from a study of 507 normal and diabetic adults. ??Minority populations were underrepresented and children were not included. ?? (Diabetes Care 31:9307-8276, 2008). ??The eAG is not equivalent to a fasting glucose. Testing performed by: [address] [address] Blood 07/27/2022 5:14 PM CDT 07/27/2022 5:18 PM CDT Clare Kasper MD LAB BLOOD ORDERAB LES Final Result Performing Organization Address [facility] de Phone Number [facility] [address] [facility] [place] [address] * PSA screen (07/27/2022 5:14 PM CDT) [facility] PSA-Total 0.37 <=3.90 ng/mL CRISTY Comment: Interpretive [...] data last revised 22. Testing performed by: [facility], [address] [place] [address]., [address] Blood 07/27/2022 5:14 PM CDT 07/27/2022 5:18 PM CDT us Clare Kasper MD LAB BLOOD ORDERAB LES Final Result Performing Organization Address [facility] Co de Phone Number CRISTY [facility] [facility] [place] [address] * RPR Blood (07/27/2022 5:14 PM CDT) RPR Nonreactive Nonreactive CRISTY Comment:Testing performed by : [facility], [address] [place]., [address] Blood 07/27/2022 5:14 PM CDT 07/27/2022 7:26 PM CDT Clare Kasper MD LAB MICROBIOLOGY - GENERAL ORDERABLES Final Result Performing Organization Address City/[facility] Co de Phone Number CRISTY [address] [facility] [place] [place] [address] * HIV 1/2 Antibody plus p24 Antigen Blood (07/27/2022 5:14 PM CDT) Pathologist [facility] HIV 1/2 ab + p24 ag Nonreactive Nonreactive [facility] Comment: Nonreactive for HIV-1 antigen and HIV-1/HIV-2 antibodies. No laboratory evidence of HIV infection. If acute HIV infection is suspected, consider testing for HIV-1 RNA. Blood 07/27/2022 5:14 PM CDT 07/27/2022 6:42 PM CDT Clare Kasper MD LAB MICROBIOLOGY - GENERAL ORDERABLES Final Result [facility] [address] [facility] Department [place] [address] * Hepatitis panel, acute (07/27/2022 5:14 PM CDT) [facility] Hep A IgM Nonreactive Nonreactive [facility] Comment: Interpretive Data: If Hep A IgM [...] [facility] Comment: Interpretive Data Nonreactive: Antibodies to HCV not [...] on 2020. HepBsAg Nonreactive Nonreactive CRISTY Blood 07/27/2022 5:14 PM CDT 07/27/2022 6:42 PM CDT Clare Kasper MD LAB MICROBIOLOGY - GENERAL ORDERABLES Final Result Performing Organization Address City/[facility]/ZIP Co de Phone Number CRISTY [facility] [place] [address] * Vitamin D 25 hydroxy (07/27/2022 5:14 PM CDT) Vitamin D 25-OH 40.0 30.0 - 80.0 ng/mL CRISTY Blood 07/27/2022 5:14 PM CDT 07/27/2022 6:42 PM CDT us Clare Kasper MD LAB BLOOD ORDERAB LES Final Result Performing Organization Address [facility] Co de Phone Number CRISTY [address] [place] [address] documented in this encounter Visit Diagnoses Diagnosis Vitamin D deficiency Annual physical exam Routine general medical examination at a health care facility Primary hypertension Unspecified essential hypertension Hyperlipidemia, unspecified hyperlipidemia type documented in this encounter Care Teams Wood Barker Relationship Specialty Start Date End Date Clare Kasper MD PCP - General Family Medicine 07/27/22 documented as of this encounter
--- OUTSIDE RECORDS SUMMARY | 2024-11-04 22:15 | XMS_ITS | Encounter Summary ---
Author Organization [facility] Address [address] [place] [address] Care Team Providers Care Community Development Officer Name Role Phone Scar Medina MD Primary Care Pro vider Reason for Visit * Reason Comments New Patient Encounter Details Date Type Department Care Team (Latest Contact Info) Description 07/27/2022 4:00 PM CDT Office Visit [facility] Primary Care [address] [facility] [address] [place] [address] Scar Medina MD [address] [place] [id number] Primary hypertension (Primary Dx); Hyperlipidemia, unspecified hyperlipidemia type; Tobacco use; Alcohol abuse; Gastroesophageal reflux disease, unspecified whether esophagitis present; Vitamin D deficiency; Annual physical exam Social History Tobacco Use Types Packs/Day Years [...] on file 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 Gender Identity Not on file Sexual Orientation Not on file documented as of this encounter Last Filed Vital Signs Vital Sign Reading Time Taken Comments Blood Pressure 134/86 07/27/2022 4:05 PM CDT Pulse 80 07/27/2022 4:05 PM CDT Temperature 36.8 ??C (98.2 ??F) 07/27/2022 4:05 PM CD T Respiratory Rate 18 07/27/2022 4:05 PM CDT Oxygen Saturation 99% 07/27/2022 4:05 PM CDT Inhaled Oxygen Concentration - - Weight 47.8 kg (105 lb 6.4 oz) 07/27/2022 4:05 P M CDT Height 170.2 cm (5' 7 ) 07/27/2022 4:05 PM CDT Body Mass Index 16.51 07/27/2022 4:05 PM CDT documented in this encounter Ordered Prescriptions Prescription Sig Dispense Quantity Refills Last Filled Start Date End Date rosuvastatin (CRESTOR) 10 mg tabletIndications:Hy perlipidemia, unspecified hyperlipidemia type Take 1 tablet (10 mg total) by mouth daily 90 tablet 3 07/28/2022 3 documented in this encounter Progress Notes * Scar Medina MD - 07/27/2022 4:00 PM CDT Images from the original note were not included. Assessment/Plan: Assessment/Plan Diagnoses and all orders for this visit: Primary hypertension (Primary) Assessment & Plan: Blood pressure at goal, continue 10mg amlodipine Orders: - Comprehensive metabolic panel; Future - Lipid panel; Future - Hemoglobin A1c; Future Hyperlipidemia, unspecified hyperlipidemia type Assessment & Plan: Recheck lipids to determine if needs to restart Continue statin 10y risk of heart attack/stroke (ASVCD) is 16.7% recommend restarting crestor Orders: - Comprehensive metabolic panel; Future - Lipid panel; Future - Hemoglobin A1c; Future - rosuvastatin (CRESTOR) 10 mg tablet; Take 1 tablet (10 mg total) by mouth daily Tobacco use Assessment & Plan: Counseled for >3 minutes on cessation Alcohol abuse Assessment & Plan: Currently sober Encouraged to continue complete cessation Gastroesophageal reflux disease, unspecified whether esophagitis present Assessment & Plan: Continue protonix as needed Vitamin D deficiency - Vitamin D 25 hydroxy; Future Annual physical exam - CBC with auto differential; Future - Comprehensive metabolic panel; Future - Lipid panel; Future - Hemoglobin A1c; Future - PSA screen; Future - RPR Blood; Future - N. gonorrhoeae/C. trachomatis Amplification Urine; Future - HIV 1/2 Antibody plus p24 Antigen Blood; Future - Hepatitis panel, acute; Future F/u 6 months or sooner as needed if symptoms not improving or worsen. Strict return/ED precautions discussed. Subjective: Yariel Hill is a 52 y.o. male here for multiple chronic conditions HPI Chief Complaint Patient presents with New Patient Hypertension: on amlodipine 10mg Hyperlipidemia: last took crestor in March Smoking 8-10 cigarettes/day, has quit x4m, restarted with stress of neighbor kid hanging himself. Has tried gum and patches Alcohol abuse: recently drinking daily x1m, now sober GERD: protonix as needed Review of Systems Constitutional: Positive for fatigue. Negative for fever. HENT: Positive for dental problem (seeing dentist). Negative for sore throat. Respiratory: Negative for cough and shortness of breath. Cardiovascular: Negative for chest pain. Gastrointestinal: Negative for abdominal pain, diarrhea and vomiting. Genitourinary: Negative for difficulty urinating. Musculoskeletal: Negative for myalgias. Skin: Negative for color change. Neurological: Negative for speech difficulty. Psychiatric/Behavioral: Positive for sleep disturbance. The patient is not nervous/anxious. Objective: Vital signs were reviewed. Vitals: 07/27/22 1605 BP: 134/86 BP Location: Left arm Patient Position: Sitting Pulse: 80 Resp: 18 Temp: 36.8 ??C (98.2 ??F) TempSrc: Temporal SpO2: 99% Weight: 47.8 kg (105 lb 6.4 oz) Height: 170.2 cm (5' 7 ) Physical Exam Gen: NAD, comfortable, appears as stated age Eyes: no conjunctival injection, EOMI ENMT: external ears symmetric CV: RRR without murmur, rub, gallop. Pulm: good respiratory effort, CTAB no rhonchi, rales, or wheezes Abd: soft, non-tender, non-distended, bowel sounds present Skin: no rashes or nodules, warm and dry Ext: No lower extremity edema MSK/Neuro: symmetric limb movement, normal gait Psych: alert and oriented to person/place/time, appropriate judgment and insight Scar Medina MD documented in this encounter Miscellaneous Notes * Assessment & Plan Note - Scar Medina MD - 07/27/2022 5:05 PM CDTAssociated Problem(s): GERD (gastroesophageal reflux disease) Continue protonix as needed * Assessment & Plan Note - Scar Medina MD - 07/27/2022 5:04 PM CDTAssociated Problem(s): Alcohol use disorder Currently sober Encouraged to continue complete cessation * Assessment & Plan Note - Scar Medina MD - 07/27/2022 5:04 PM CDTAssociated Problem(s): Tobacco use Counseled for >3 minutes on cessation * Assessment & Plan Note - Scar Medina MD - 07/27/2022 5:04 PM CDTAssociated Problem(s): Hyperlipidemia Recheck lipids to determine if needs to restart Continue statin 10y risk of heart attack/stroke (ASVCD) is 16.7% recommend restarting crestor * Assessment & Plan Note - Scar Medina MD - 07/27/2022 5:03 PM CDTAssociated Problem(s): Hypertension Blood pressure at goal, continue 10mg amlodipine * Addendum Note - Scar Medina MD - 07/27/2022 4:00 PM CDT Addended by: SCAR MEDINA on: 07/28/2022 06:12 AM Modules accepted: Orders documented in this encounter [...] documented as of this encounter Results * N. gonorrhoeae/C. trachomatis Amplification Urine (07/27/2022 5:20 PM CDT) C. trachomatis Not Detected Not Detected [facility] Comment:Testing performed by : [facility], [address] [place] [address]., [id number] N. gonorrhoeae Not Detected Not Detected [facility] Comment: Interpretive Data Testing performed by the [facility]. This assay detects Chlamydia trachomatis and [...] last revised on 2019. Testing performed by: [facility], [address] [place] [address]., [id number] Urine (None) 07/27/2022 5:20 PM CDT 07/27/2022 6:27 PM CDT Scar Medina MD LAB MICROBIOLOGY - GENERAL ORDERABLES Final Result Performing Organization Address [facility] [[email or web address]] Co de Phone Number [facility] [address] [facility] [place] [address] * Vitamin D 25 hydroxy (07/27/2022 5:14 PM CDT) Vitamin D 25-OH 40.0 30.0 - 80.0 ng/mL [facility] Blood 07/27/2022 5:14 PM CDT 07/27/2022 6:42 PM CDT Scar Medina MD LAB BLOOD ORDERAB LES Final Result Performing Organization Address City/[facility]/ZIP Co de Phone Number [place] [phone] [facility] [place] [address] * Hepatitis panel, acute (07/27/2022 5:14 PM CDT) Pathologist [facility] Hep A IgM Nonreactive Nonreactive [facility] Comment: Interpretive Data: If Hep A IgM Ab is reported as Equivocal, a new sample should be drawn in two weeks for testing. Current interpretive data was last revised on 20. Hep B core IgM Nonreactive Nonreactive [facility] Comment: Interpretive Data If HepB Core IgM Ab is reported as Equivocal, a new sample should be drawn in two weeks for testing. Current interpretive data was last revised on 20. Hep C Ab Nonreactive Nonreactive [facility] Comment: Interpretive Data Nonreactive: Antibodies to [...] last revised on 2020. HepBsAg Nonreactive Nonreactive [facility] Blood 07/27/2022 5:14 PM CDT 07/27/2022 6:42 PM CDT Scar Medina MD LAB MICROBIOLOGY - GENERAL ORDERABLES Final Result Performing Organization Address [facility] de Phone Number [address] [place] [address] * HIV 1/2 Antibody plus p24 Antigen Blood (07/27/2022 5:14 PM CDT) [facility] HIV 1/2 ab + p24 ag Nonreactive Nonreactive [facility] Comment: Nonreactive for HIV-1 antigen and HIV-1/HIV-2 antibodies. No laboratory evidence of HIV infection. If acute HIV infection is suspected, consider testing for HIV-1 RNA. Blood 07/27/2022 5:14 PM CDT 07/27/2022 6:42 PM CDT Scar Medina MD LAB MICROBIOLOGY - GENERAL ORDERABLES Final Result Performing Organization Address [facility] de Phone Number [facility] [address] [place] [address] * RPR Blood (07/27/2022 5:14 PM CDT) Pathologist [facility] RPR Nonreactive Nonreactive [facility] Comment:Testing performed by : [facility], [address] [facility]., [address] Blood 07/27/2022 5:14 PM CDT 07/27/2022 7:26 PM CDT Scar Medina MD LAB MICROBIOLOGY - GENERAL ORDERABLES Final Result Performing Organization Address [facility] de Phone Number [facility] [address] [place] [address] * PSA screen (07/27/2022 5:14 PM CDT) Pathologist [facility] PSA-Total 0.37 <=3.90 ng/mL [facility] Comment: Interpretive [...] data last revised 22. Testing performed by: [address] [address] Blood 07/27/2022 5:14 PM CDT 07/27/2022 5:18 PM CDT Scar Medina MD LAB BLOOD ORDERAB LES Final Result Performing Organization Address [facility] [[email or web address]] Co de Phone Number [facility] [address] [facility] [place], [place] [id number] * Hemoglobin A1c (07/27/2022 5:14 PM CDT) Hgb A1C 5.0 4.0 - 5.6 % [facility] Comment:Testing performed by : [address] [address] Estimated Average Glucose 97 mg/dL [facility] Comment: The ADA recommends reporting an estimated Average Glucose (eAG) with all Hemoglobin A1c results using the equation derived from a study of 507 normal and diabetic adults. ??Minority populations were underrepresented and children were not included. ?? (Diabetes Care 31:5853-7100, 2008). ??The eAG is not equivalent to a fasting glucose. Testing performed by: [address] [address] Blood 07/27/2022 5:14 PM CDT 07/27/2022 5:18 PM CDT Scar Medina MD LAB BLOOD ORDERAB LES Final Result Performing Organization Address City/[facility] [[email or web address]] Co de Phone Number [facility] [address] [facility] [place], [place] [id number] * Lipid panel (07/27/2022 5:14 PM CDT) Cholesterol 193 30 - 199 mg/dL [facility] [...] last revised on 2018. Testing performed by: [address] [address] Triglycerides 71 <=149 mg/dL [facility] Comment: Interpretive Data [...] last revised on 2018. Testing performed by: [address] [address] HDL 56 >=40 mg/dL [facility] [place] Comment: Interpretive Data [...] last revised on 2018. Testing performed by: [facility], [address] [place] [address]., [address] LDL, calculated 123 <=129 mg/dL [facility] Comment: [...] last revised on 2018. Testing performed by: [facility], [address] [place] [address]., [address] Non-HDL Cholesterol 137 mg/dL [facility] Comment: Interpretive [...] last revised on 2018. Testing performed by: [address] [address] Chol/HDL ratio 3 [facility] Comment:Testing performed by : [address] [address] Blood 07/27/2022 5:14 PM CDT 07/27/2022 5:18 PM CDT us Scar Medina MD LAB BLOOD ORDERAB LES Final Result [facility] [address] [facility] Department [place] [address] * (ABNORMAL) Comprehensive metabolic panel (07/27/2022 5:14 PM CDT) Sodium 139 135 - 145 mmol/L [facility] Comment:Testing performed by : [address] [address] Potassium, pl 4.1 3.3 - 4.9 mmol/L [facility] Comment:Testing performed by : [address] [address] Chloride 102 97 - 110 mmol/L [facility] Comment:Testing performed by : [address] [address] CO2 27 22 - 32 mmol/L [facility] Comment:Testing performed by : [address] [address] Anion gap 10 2 - 15 mmol/L [facility] Comment:Testing performed by : [address] [address] BUN 7(L) 8 - 25 mg/dL [facility] Comment:Testing performed by : [address] [address] Creatinine 1.10 0.80 - 1.30 mg/dL [facility] Comment:Testing performed by : [address] [address] Glucose 82 70 - 199 mg/dL [facility] [...] was last revised 2017. Testing performed by: [address] [address] Calcium 10.0 8.5 - 10.3 mg/dL [facility] Comment:Testing performed by : [address] [address] Bilirubin, total 0.3 0.1 - 1.2 mg/dL [facility] Comment:Testing performed by : [address] [address] Protein, pl 7.7 6.5 - 8.5 g/dL [facility] Comment:Testing performed by : [address] [address] Albumin 5.0 3.5 - 5.0 g/dL [facility] Comment:Testing performed by : [address] [address] Alk phos 60 40 - 130 Units/L [facility] Comment:Testing performed by : [address] [address] ALT 14 7 - 55 Units/L [facility] Comment:Testing performed by : [address] [address] AST 21 10 - 50 Units/L [facility] Comment:Testing performed by : [address] [address] Blood 07/27/2022 5:14 PM CDT 07/27/2022 5:18 PM CDT us Scar Medina MD LAB BLOOD ORDERAB LES Final Result [facility] [address] [facility] [place] [address] * (ABNORMAL) CBC with auto differential (07/27/2022 5:14 PM CDT) WBC 8.1 3.8 - 9.9 K/cumm [facility] Comment:Testing performed by : [address], [address] Hgb 14.3 13.0 - 17.5 g/dL [facility] [place] Comment:Testing performed by : [address], [address] Hct 42.1 38.9 - 50.3 % [facility] Comment:Testing performed by : [address] [address] Plt 261 150 - 400 K/cumm [facility] Comment:Testing performed by : [address] [address] MPV 9.0(L) 9.1 - 12.3 fL [facility] Comment:Testing performed by : [address] [address] RBC 4.35 4.30 - 5.80 M/cumm [facility] Comment:Testing performed by : [address] [address] MCV 96.8(H) 81.3 - 96.4 fL [facility] Comment:Testing performed by : [address] [address] MCH 32.9 27.1 - 33.3 pg [facility] Comment:Testing performed by : [address], [address] MCHC 34.0 32.3 - 35.7 g/dL [facility] Comment:Testing performed by : [address], [address] RDW CV 13.8 11.1 - 14.9 % [facility] Comment:Testing performed by : [address] [address] RDW SD 49.1(H) 35.7 - 48.1 fL [facility] Comment:Testing performed by : [address] [address] NRBC abs 0.00 0.00 - 0.01 K/cumm [facility] Comment:Testing performed by : [address] [address] Blood 07/27/2022 5:14 PM CDT 07/27/2022 5:18 PM CDT us Scar Medina MD LAB BLOOD ORDERAB LES Final Result [facility] [address] [facility] [place] [address] documented in this encounter Visit Diagnoses Diagnosis Primary hypertension- Primary Unspecified essential hypertension Hyperlipidemia, unspecified hyperlipidemia type Tobacco use Alcohol abuse Nondependent alcohol abuse, unspecified drinking behavior Gastroesophageal reflux disease, unspecified whether esophagitis present Vitamin D deficiency Annual physical exam Routine general medical examination at a health care facility documented in this encounter Discontinued Medications Medication Sig Discontinue Reason Start Date End Da te rosuvastatin (CRESTOR) 20 mg tablet Take 1 tablet (20 mg total) by mouth daily Reorder 05/13/2021 07/28/2022 documented as of this encounter Historical Medications * This list may reflect changes made after this encounter. chlordiazePOXIDE (LIBRIUM) 25 mg capsule TAKE 1 CAPSULE BY MOUTH EVERY 6 HOURS NEEDED FOR ALCOHOL WITHDRAWALS 07/10/[address] (PROTONIX) 40 mg EC tablet Take 40 mg by mouth daily 05/27/2022 3 added in this encounter Care Teams Community Development Officer Relationship Specialty Start Date End Date Scar Medina MD PCP - General Family Medicine 07/27/22 documented as of this encounter
--- OUTSIDE RECORDS SUMMARY | 2024-11-04 22:15 | XMS_ITS | Encounter Summary ---
Author Organization [facility] Healthcare Address [address] [place] [address] Care Team Providers Care [employer] Music Teacher Name Role Phone Teresita Painting MD Primary Care Prov ider Encounter Details Date Type Department Care Team (Late st Contact Info) Description 12/08/2020 9:15 AM SPRAY DRIER OPERATOR Telemedicine [facility] Primary [facility] Medicine Clinic [facility] [address] [place], [place] [id number] Nyla Bautista MD [address] [place] [address] [phone] [place], [place] [id number] Francisco Bazzi MD [address] [place] [address] [address] [place], [place] [id number] Essential hypertension (Primary Dx); Sinus congestion Discharge Disposition: Discharge to home or self [...] on file 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 Gender Identity Not on file Sexual Orientation Not on file documented as of this encounter Ordered Prescriptions Prescription Sig Dispense Quantity Refills Last Filled Start Date End Date fluticasone propionate (FLONASE) 50 mcg/actuation nasal sprayIndications:S inus congestion Administer 2 sprays into each nostril daily 16 g 5 12/08/2020 2 documented in this encounter Discharge Disposition Disposition Code Departure Means Destination Discharge to home or self care documented in this encounter Progress Notes * Francisco Bazzi MD - 12/08/2020 9:15 AM CST Primary Care Medicine Clinic - Telehealth Visit Patient Name: Yariel Hill : 1970 Today's Date: 12/08/2020 PCP: Teresita Painting MD Staffed with: Noah Larios MD This was a telemedicine visit with Yariel Hill which took place via Telephone because patientdid want to use video. During the visit, I was located at [facility] Primary Care Medicine Clinic and the patient was located his residence, in the [facility]. If the patient was located in the [facility] I will staff the patient with an attending who has an [place] license. The session started at 09:17AM and ended at 09:30AM. The patient has been informed that the visit may not be secure and acknowledged the information. The patient was also informed they may be billed for this visit like a regular visit depending on their insurance plan. Discussed the risks and benefits of telemedicine. Primary benefit being to allow a provider to provide care without the patient having to travel. Risks include inability to gather sufficient information (i.e. requires a physical exam, video resolution insufficient, etc), equipment failure, and information security architect issues. An in-person visit may be necessary to complete the assessment. The patientcan discontinue telehealth services at any time. Patients consents to the use of telemedicine: Yes, verbal consent SUBJECTIVE Reason for Call/Chief Complaint Follow-up blood pressure History of Present Illness Yariel Hill is a 50 y.o. male history of HTN, tobacco use, and EtOH use complicated by pancreatitis (2014) presents for follow-up of blood pressure. 1. Hypertension: At last visit patient's blood pressure remained elevated above goal, 130-150s systolic. He was on amlodipine 5mg at the time and his dosage was increased to 10mg daily. Since then hereports good adherence with his medication. He has been checking his pressures at home with an arm cuff, AM and PM; last four readings have been 122/76, 122/81, 123/82, 120/78. He denies any ankle edema, lightheadedness, dizziness, syncope. Review of Systems Review of systems per HPI and otherwise all other systems are negative Past Medical History Past Medical History: Diagnosis Date ??? Anemia ??? Anxiety ??? Hypertension ??? Pancreatitis PAST SURGICAL HISTORY Past Surgical History: Procedure Laterality Date ??? CARPAL TUNNEL RELEASE Left 2007 Allergies No Known Allergies Social History Social History Socioeconomic History ??? Marital status: [...] file Gets together: Not on file Attends synagogue service: Not on file Active member of [...] Social History Narrative ??? Not on file Medications Current Outpatient Medications: ??? amLODIPine (NORVASC) 10 mg tablet, Take 1 tablet (10 mg total) by mouth daily, Disp: 90 tablet,Rfl: 3 ??? cholecalciferol (Vitamin D3) 2000 unit capsule, Take 1 capsule (2,000 Units total) by mouth daily, Disp: 90 capsule, Rfl: 3 ??? ergocalciferol (VITAMIN D) 50,000 unit capsule, Take 1 capsule (50,000 Units total) by mouth once a week, Disp: 8 capsule, Rfl: 0 ??? fluticasone propionate (FLONASE) 50 mcg/actuation nasal spray, Administer 2 sprays into each nostril daily, Disp: 16 g, Rfl: 5 OBJECTIVE Physical Exam Telephone visit only, limited exam due to the nature of the visit BP readings well within normal limits (listed in HPI) General: Sounds to be in no apparent distress. Pulmonary: Speaking in full sentences without difficulty, no gasping for air, no audible stridor orwheezing. Neuro: AAO x4, responding to questions appropriately. Psych: Pleasant. Euthymic. Conversant. ASSESSMENT AND PLAN Yariel Hill is a 50 y.o. male history of HTN, tobacco use, and EtOH use complicated by pancreatitis (2014) presents for follow-up. Problem List Circulatory Hypertension - Primary (Chronic) Current Assessment & Plan Blood pressure very well-controlled with amlodipine. No symptoms of hypotension, no adverse reactions. No signs/symptoms suggestive of ACS/CAD, CHF, CVA - continue amlodipine 10mg daily - reviewed low sodium diet Today: -Labs: None -Imaging: None -Referrals: None -Rx: Refilled flonase -Immunizations: None RTC in Return in about 6 months (around 06/07/2021). Francisco Bazzi MD 12/08/20 12:33 PM Internal Medicine, PGY-3 Cosigned by Noah Larios MD at 12/10/2020 1:16 PM SPRAY DRIER OPERATOR Y DRIER OPERATOR Y DRIER OPERATOR Associated attestation - Noah Larios MD - 12/10/2020 1:16 PM SPRAY DRIER OPERATOR I was immediately available for consultation during all aspects of the telemedicine encounter. I personally did not speak to the patient during this encounter. After discussion with Dr. bazzi, I agree with the findings and plan of care as documented in the resident/fellow's note. * Alanis Glasgow - 12/08/2020 9:15 AM CST Reason for visit: Our physical space limits our ability to see patients in clinic while following the [facility] social distancing guidelines; a telehealth visit allows us to provide safe, essential and timely care for our patients. Y DRIER OPERATOR documented in this encounter Miscellaneous Notes * Assessment & Plan Note - Francisco Bazzi MD - 12/08/2020 12:31 PM SPRAY DRIER OPERATOR Associated Problem(s): Hypertension Blood pressure very well-controlled with amlodipine. No symptoms of hypotension, no adverse reactions. No signs/symptoms suggestive of ACS/CAD, CHF, CVA - continue amlodipine 10mg daily - reviewed low sodium diet Y DRIER OPERATOR documented in this encounter Plan of Treatment [...] as of this encounter Visit Diagnoses Diagnosis Essential hypertension- Primary Unspecified essential hypertension Sinus congestion Other diseases of nasal cavity and sinuses documented in this encounter Discontinued Medications Medication Sig Discontinue Reason Start Date End Da te fluticasone (FLONASE) 50 mcg/actuation nasal sprayIndications:Sinus congestion Administer 2 sprays into each nostril daily. Reorder 09/29/2018 12/08/2020 documented as of this encounter Care Teams Elementary [employer] Music Teacher Relationship Specialty Start Date End Date Teresita Painting MD PCP - General 10/25/19 04/17/21 documented as of this encounter
--- OUTSIDE RECORDS SUMMARY | 2024-11-04 22:15 | XMS_ITS | Encounter Summary ---
Author Organization [facility] Address [address] [place] [address] Phone Care Team Providers Care Extracorporeal Technician Name Role Phone David Feliz MD Primary Care Provide r Encounter Details Date Type Department Care Team (Late st Contact Info) Description 05/29/2021 Telephone [facility] Gastroenterology [facility] 8th [place] [address] [place] [id number] Laura Carlisle RN Social History Tobacco Use Types Packs/Day Years Used Date Smoking Tobacco: Every Day Cigarettes Smokeless Tobacco: Never Comments:8 cigs a day Alcohol Use Standard Drinks/Week Comments Yes 0 (1 standard drink = 0.6 oz pur e alcohol) occasionally Sex and Gender Information Value Date Recorded Sex Assigned at Not on file 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 Gender Identity Not on file Sexual Orientation Not on file documented as of this encounter Ordered Prescriptions Prescription Sig Dispense Quantity Refills Last Filled Start Date End Date polyethylene glycol (GoLYTELY) 236-22.74-6.74 -5.86 gram solution Take 4,000 mL by mouth once for 1 dose Follow the instructions sent to you 4000 mL 05/29/2021 documented in this encounter Miscellaneous Notes * Telephone Encounter - Laura Carlisle RN - 05/29/2021 2:17 PM CDT PROCEDURE Type: Colonoscopy Indication: Repeat colonoscopy due to incomplete bowel prep last year Referring Physician: Dr Feliz Date Referred: 05/29/21 CLINICAL ASSESSMENT []COVID Screening questions [x] Covid vaccination yes []BMI>45, Weight >350 lbs BMI Readings from Last 1 Encounters: 05/13/21 16.68 kg/m?? Wt Readings from Last 1 Encounters: 05/13/21 48.3 kg (106 lb 8 oz) [] Patient had GI procedure/CPAP clinic/GI clinic <30 days (if Yes, no medical screening questions needed unless new clinical issues in last 30 days) Medical screening questions: BMI/Weight: NA CARDIOVASCULAR: None RESPIRATORY/LUNG: None RENAL/LIVER/GI: None BLEEDING/CLOTTING: None NEUROLOGICAL: None ENDOCRINE: None PRIOR PROCEDURE ISSUES: None COOK SUPERVISOR/: NA IMPLANTS.: None Notes: DIABETIC MEDS Y/N: No/NA []Yes- Discuss diabetes medication management with prescribing physician DIALYSIS Y/N: No/NA []HD- Schedule on non-HD day, see protocol []PD- Drain PD fluid AM of procedure, if colonoscopy order AB ppx, see protocol PACEMAKER/ICD Y/N: No/NA Device info: Last documented device check: Any shocks since last cards visit (if yes must see cardiology for procedure clearance): BLOOD THINNERS/ANTICOAG/ANTIPLATELET (BESIDES ASA) Medication: NONE Physician contacted for hold order/date sent: Hold order Method sent: Date hold received: Hold instructions: CONTINUE ASPIRIN INFORMATION REQUESTED []Imaging: []Medical Progress Note/H&P []Medication list []Other: PATIENT OPTIMIZATION []Physician reviewing escalation: []CPAP: Date scheduled: Outcome : [] Location limitations: Scheduling Scheduling location limitations: Personal Banking Advisor needed [] NA Language: POA [] NA Name: SPECIAL PROCEDURE INSTRUCTIONS Procedure information Date of procedure: 06/24/21 Time of procedure: 829 Arrival time: 729 Location: [facility] Proceduralist: Dr Mccoy Instructions Method of instructions: Mailed copy [x]Confirmation of ride/mohs surgeon/general dermatologist [x]Post anesthesia restrictions given [x]NPO Instructions: [x]Diet Instructions: [x]Take non-blood thinner prescription meds that morning [x]Bring med list, photo ID, insurance card, no valuables [x]Bring COVID vaccination card (if vaccinated) Bowel Prep Prep prescribed: Ever Method of Bowel Prep (RX): E-Scribe Copy * Telephone Encounter - Laura Carlisle RN - 05/29/2021 2:15 PM CDT ----- Message from Laura Carlisle RN sent at 05/21/2021 1:58 PM CDT ----- Regarding: FW: 1 year colonoscopy due 05/21- no room on May schedule unless cancellation ----- Message ----- From: Laura Carlisle RN Sent: 05/08/2021 To: Agustin Hanson Gi Mccoy/Federico Pool Subject: FW: 1 year colonoscopy due 04/30- LVM for patient ----- Message ----- From: Laura Carlisle RN Sent: 04/30/2021 To: Agustin Im Gi Mccoy/Federico Pool Subject: FW: 1 year colonoscopy due 04/06- check aug snapboard available ----- Message ----- From: Beckie Gustafson RN Sent: 03/31/2021 To: Agustin Hanson Gi Mccoy/Federico Pool Subject: 1 year colonoscopy due Schedule patient for repeat colonoscopy (1 year) because of only fair prep. Patient needs 2 day prep. documented in this encounter Plan of Treatment [...] as of this encounter Visit Diagnoses Diagnosis Screen for colon cancer- Primary Special screening for malignant neoplasms, colon documented in this encounter Orders Case Request Count Last Ordered Date First Orde red Date CASE REQUEST GI 1 05/29/2021 documented in this encounter Care Teams Extracorporeal Technician Relationship Specialty Start Date End Date David Feliz MD PCP - General 04/18/21 07/26/22 documented as of this encounter
--- OUTSIDE RECORDS SUMMARY | 2024-11-04 22:15 | XMS_ITS | Encounter Summary ---
Author Organization [facility] Healthcare Address [address] [place] [address] Care Team Providers Care Assistant Speech Language Pathologist Name Role Phone Teresita Painting MD Primary Care Prov ider Encounter Details Date Type Department Care Team (Late st Contact Info) Description 06/18/2020 4:40 PM CDT Lab [facility] [address] [place] [address] [place] [address] Healthcare maintenance; Essential hypertension Social History Tobacco Use Types Packs/Day Years Used Date Smoking Tobacco: Every Day Cigarettes Smokeless Tobacco: Never Comments:8 cigs a day Alcohol Use Standard Drinks/Week Comments Yes 0 (1 standard drink = 0.6 oz pur e alcohol) occasionally Sex and Gender Information Value Date Recorded Sex Assigned at Not on file 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 Gender Identity Not on file Sexual [...] Date/Time Associated Diagnosis Comments DIFFERENTIAL AUTO Routine 06/18/2020 4:4 6 PM CDT Healthcare maintenance HIV 1/2 ANTIBODY PLUS P24 ANTIGEN Routine 06/18/2020 4:46 PM CDT Healthcare maintenance CBC WITH AUTO DIFFERENTIAL Routine 06/18/2020 4:46 PM CDT Healthcare maintenance HEMOGLOBIN A1C Routine 06/18/2020 4:46 PM CDT Healthcare maintenance LIPID PANEL Routine 06/18/2020 4:46 PM CDT Healthcare maintenance COMPREHENSIVE METABOLIC PANEL Routine 06/18/2020 4:46 PM CDT Essential hypertension Healthcare maintenance documented in this encounter Results * Differential, auto (06/18/2020 4:46 PM CDT) Neutrophil abs 4.5 1.7 - 6.5 K/cumm [facility] Imm gran abs 0.0 0.0 - 0.1 K/cumm [facility] Lymphocyte abs 2.0 0.8 - 3.3 K/cumm [facility] Monocyte abs 0.5 0.2 - 0.8 K/cumm [facility] Eosinophil abs 0.2 0.0 - 0.5 K/cumm [facility] Basophil abs 0.1 0.0 - 0.1 K/cumm [facility] Neutrophil pct 62.6 % [facility] Comment: Interpretive Data Percent cell count reference ranges are not reported, since discordance with absolute values may lead to misinterpretation of CBC data. Current Interpretive Data was last revised on 2018. Imm gran pct 0.3 % [facility] Comment: Interpretive Data Percent cell count reference ranges are not reported, since discordance with absolute values may lead to misinterpretation of CBC data. Current Interpretive Data was last revised on 2018. Lymphocyte pct 27.3 % [facility] Comment: Interpretive Data Percent cell count reference ranges are not reported, since discordance with absolute values may lead to misinterpretation of CBC data. Current Interpretive Data was last revised on 2018. Monocyte pct 6.7 % [facility] Comment: Interpretive Data Percent cell count reference ranges are not reported, since discordance with absolute values may lead to misinterpretation of CBC data. Current Interpretive Data was last revised on 2018. Eosinophil pct 2.4 % [facility] Comment: Interpretive Data Percent cell count reference ranges are not reported, since discordance with absolute values may lead to misinterpretation of CBC data. Current Interpretive Data was last revised on 2018. Basophil pct 0.7 % [facility] Comment: Interpretive Data Percent cell count reference ranges are not reported, since discordance with absolute values may lead to misinterpretation of CBC data. Current Interpretive Data was last revised on 2018. Blood specimen (specimen) 06/18/2020 4:46 PM CDT 06/18/2020 5:13 PM CDT us Francisco Goodson MD LAB BLOOD ORDERABLES Final Result [facility] [place] [address] * (ABNORMAL) CBC with auto differential (06/18/2020 4:46 PM CDT) [facility] WBC 7.1 3.8 - 9.9 K/cumm [facility] Hgb 13.7 13.0 - 17.5 g/dL [facility] Hct 41.1 38.9 - 50.3 % [facility] Plt 126(L) 150 - 400 K/cumm [facility] MPV 10.3 9.1 - 12.3 fL [facility] RBC 4.32 4.30 - 5.80 M/cumm [facility] MCV 95.1 81.3 - 96.4 fL [facility] MCH 31.7 27.1 - 33.3 pg [facility] MCHC 33.3 32.3 - 35.7 g/dL [facility] RDW CV 13.7 11.1 - 14.9 % [facility] RDW SD 48.7(H) 35.7 - 48.1 fL [facility] NRBC abs 0.00 0.00 - 0.01 K/cumm [facility] Blood specimen (specimen) 06/18/2020 4:46 PM CDT 06/18/2020 5:13 PM CDT Francisco Goodson MD LAB BLOOD ORDERABLES Final Result [facility] [place] [address] * Comprehensive metabolic panel (06/18/2020 4:46 PM CDT) [facility] Sodium 139 135 - 145 mmol/L [facility] Potassium, pl 4.4 3.3 - 4.9 mmol/L [facility] Chloride 102 97 - 110 mmol/L [facility] CO2 28 22 - 32 mmol/L [facility] Anion gap 9 2 - 15 mmol/L [facility] BUN 11 8 - 25 mg/dL [facility] Creatinine 1.01 0.80 - 1.30 mg/dL [facility] Glucose 72 70 - 199 mg/dL [facility] Comment: Interpretive Data Fasting glucose >/= 126 [...] 2017. Calcium 9.5 8.5 - 10.3 mg/dL [facility] Bilirubin, total 0.5 0.1 - 1.2 mg/dL [facility] Protein, pl 7.5 6.5 - 8.5 g/dL [facility] Albumin 4.8 3.5 - 5.0 g/dL [facility] Alk phos 48 40 - 130 Units/L [facility] ALT 17 7 - 55 Units/L [facility] AST 28 10 - 50 Units/L [facility] Blood specimen (specimen) 06/18/2020 4:46 PM CDT 06/18/2020 5:13 PM CDT Francisco Goodson MD LAB BLOOD ORDERABLES Final Result [facility] [place] [address] * Hemoglobin A1c (06/18/2020 4:46 PM CDT) Hgb A1C 4.9 4.0 - 5.6 % [facility] Estimated Average Glucose 94 mg/dL [facility] Comment: The ADA recommends reporting an estimated Average Glucose (eAG) with all Hemoglobin A1c results using the equation derived from a study of 507 normal and diabetic adults. ??Minority populations were underrepresented and children were not included. ?? (Diabetes Care 31:3924-1760, 2008). ??The eAG is not equivalent to a fasting glucose. Blood specimen (specimen) 06/18/2020 4:46 PM CDT 06/18/2020 5:13 PM CDT Francisco Goodson MD LAB BLOOD ORDERABLES Final Result Performing Organization Address [facility] [place] [address] * HIV 1/2 Antibody plus p24 Antigen (06/18/2020 4:46 PM CDT) HIV 1/2 ab + p24 ag Nonreactive Nonreactive [facility] Comment: Nonreactive for HIV-1 antigen and HIV-1/HIV-2 antibodies. No laboratory evidence of HIV infection. If acute HIV infection is suspected, consider testing for HIV-1 RNA. Blood specimen (specimen) 06/18/2020 4:46 PM CDT 06/18/2020 5:13 PM CDT Francisco Goodson MD LAB MICROBIOLOGY - GENERAL ORDERABLES Final Result Performing Organization Address [facility] de Phone Number [facility] [place] [address] * Lipid panel (06/18/2020 4:46 PM CDT) Cholesterol 169 30 - 199 mg/dL [facility] Comment: [...] on 2018. Triglycerides 71 <=149 mg/dL [facility] Comment: Interpretive Data Ages [...] revised on 2018. HDL 76 >=40 mg/dL [facility] Comment: Interpretive Data Ages < or [...] 2018. LDL, calculated 79 <=129 mg/dL [facility] Comment: Interpretive Data Ages < or = [...] last revised on 2018. Chol/HDL ratio 2 [facility] Blood specimen (specimen) 06/18/2020 4:46 PM CDT 06/18/2020 5:13 PM CDT us Francisco Goodson MD LAB BLOOD ORDERABLES Final Result Performing Organization Address City/State/[facility] Co de Phone Number [facility] [place] [address] documented in this encounter Visit Diagnoses Diagnosis Healthcare maintenance Essential hypertension Unspecified essential hypertension documented in this encounter Care Teams Assistant Speech Language Pathologist Relationship Specialty Start Date End Date Teresita Painting MD PCP - General 10/25/19 04/17/21 documented as of this encounter
--- OUTSIDE RECORDS SUMMARY | 2024-11-04 22:15 | XMS_ITS | Encounter Summary ---
Author Organization [facility] Address [address] [place] [address] Phone Care Team Providers Care Radio Mechanic Name Role Phone Davdi Feliz MD Primary Care Provide r Encounter Details Date Type Department Care Team (Late st Contact Info) Description 05/01/2021 Telephone 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 Gender Identity Not on file Sexual Orientation Not on file documented as of this encounter Miscellaneous Notes * Telephone Encounter - Laura Carlisle RN - 05/01/2021 4:10 PM CDT LVM for patient asking for call back * Telephone Encounter - Laura Carlisle RN - 05/01/2021 4:09 PM CDT ----- Message from Laura Carlisle RN sent at 04/06/2021 2:52 PM CDT ----- Regarding: FW: 1 year colonoscopy due 04/06- check aug snapboard available ----- Message ----- From: Beckie Gustafson RN Sent: 03/31/2021 To: Agustin Margie Leonard Darius/Federico Tom Subject: 1 year colonoscopy due Schedule patient [...] on filedocumented in this encounter Care Teams Radio Mechanic Relationship Specialty Start Date End Date David Feliz MD PCP - General 04/18/21 07/26/22 documented as of this encounter
--- OUTSIDE RECORDS SUMMARY | 2024-11-04 22:15 | XMS_ITS | Encounter Summary ---
Author Organization [facility] Healthcare Address [address] [place] [address] Care Team Providers Care Accounts Receivable Clerk Name Role Phone David Feliz MD Primary Care Provide r Reason for Visit * Reason Comments Follow-up Encounter Details Date Type Department Care Team (Latest Contact Info) Description 08/19/2021 3:00 PM CDT Office Visit [facility] [address] [facility] [address] [place], [place] [id number] Nyla Bautista MD [address] [place] [address] [phone] [place], [place] [id number] David Feliz MD [address] [place] [address] [address] [place], [place] [phone] Onychomycosis (Primary Dx); Hyperlipidemia, unspecified hyperlipidemia type; Primary hypertension; Alcohol-induced insomnia (CMS/HCC) (HCC); Screening for HIV (human immunodeficiency virus); Screening for diabetes mellitus (DM); Tobacco use Discharge Disposition: Discharge to home or self [...] on file 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 Gender Identity Not on file Sexual Orientation Not on file documented as of this encounter Last Filed Vital Signs Vital Sign Reading Time Taken Comments Blood Pressure 131/78 08/19/2021 3:17 PM CDT Pulse 76 08/19/2021 3:17 PM CDT Temperature 37 ??C (98.6 ??F) 08/19/2021 3:17 PM CDT Respiratory Rate 18 08/19/2021 3:17 PM CDT Oxygen Saturation 100% 08/19/2021 3:17 PM CDT Inhaled Oxygen Concentration - - Weight 48.5 kg (106 lb 14.4 oz) 08/19/2021 3:17 PM CDT Height 170.2 cm (5' 7 ) 08/19/2021 3:17 PM CDT Body Mass Index 16.74 08/19/2021 3:17 PM CDT documented in this encounter Patient Instructions * Patient Instructions* David Feliz MD - 08/19/2021 3:00 PM CDT Your doctor is requesting you to get lab work done. Please go to the 4th [facility] the [facility] between 8AM and 4:30PM. If you are unable to get your lab draws today, you may come back Tuesday through Tuesday to get them done. No prior phone call or appointment is needed. If you have questions or concerns please let your doctor know. documented in this encounter Ordered Prescriptions Prescription Sig Dispense Quantity Refills Last Filled Start Date End Date urea (CARMOL) 40 % creamIndications:H yperkeratosis Apply topically 2 (two) times a day for 14 days 30 g 08/19/2021 melatonin 3 mg tablet extended releaseIndications :Alcohol-induced insomnia (CMS/HCC) (HCC) Take 3 mg by mouth nightly as needed (Difficulty falling asleep) 30 tablet 3 08/19/2021 1 documented in this encounter Discharge Disposition Disposition Code Departure Means Destination Discharge to home or self care documented in this encounter Progress Notes * David Feliz MD - 08/19/2021 3:00 PM CDT Primary Care Medicine Clinic - Office Visit Patient Name: Yariel Hill : 1970 Today's Date: 08/19/2021 PCP: David Feliz MD SUBJECTIVE HISTORY OF PRESENT ILLNESS Yariel Hill is a 51 y.o. man w/ pmhx significant for HTN, tobacco use, vitamin D deficiency, EtOH use c/b pancreatitis here for a ROV with a chief complaint of toe nail fungus. #Onychomycosis He was previously seen in clinic with this complaint around 3 mo ago and was prescribed terbinafine. He has not seen much benefit while on this medication. However, of note he does admit to skipping it when he drinks. He estimates about 9 days out of the full 12 week course were missed. #Alcohol Abuse: Seen en ED on 07/14 for withdrawal and given phenobarb. He states that his drinking has been a long standing problem with one episode of seizure during a withdraw episode. He says that he can stay offof alcohol for long periods of time before binging. Usually with his friends. #HTN: Normotensive in clinic today. Home regimen amlodipine 10mg. Does not regularly check blood pressureat home. Denies CP, SOB, orthopnea, PND or MCC[place]. #HLD - Last lipid panel in 06/18/2020 w/ cholesterol 169, LDL 79 and HDL 76. Currently on rosuvastatin 20mg PAST MEDICAL AND SURGICAL HISTORY Past Medical History: Diagnosis Date ??? Anemia ??? Anxiety ??? Hypertension ??? Pancreatitis ??? Vitamin D deficiency 11/28/2012 Past Surgical History: Procedure Laterality Date ??? CARPAL TUNNEL RELEASE Left 2007 ??? COLONOSCOPY ??? UPPER GASTROINTESTINAL ENDOSCOPY HOME MEDICATIONS Current Outpatient Medications: ??? amLODIPine, 10 mg, oral, Daily ??? cholecalciferol, 2,000 Units, oral, Daily ??? fluticasone propionate, 2 spray, each nostril, Daily ??? melatonin, 3 mg, oral, Nightly PRN ??? naltrexone, 50 mg, oral, Daily ??? rosuvastatin, 20 mg, oral, Daily ??? urea, Apply topically 2 (two) times a day for 14 days ALLERGIES AND DRUG REACTIONS Allergies as of 08/19/2021 ??? (No Known Allergies) FAMILY HISTORY Family History Problem Relation Age of Onset ??? Kidney cancer Father Cancer, kidney; ??? Other (renal cancer) Father ??? Hypertension Mother Hypertension; SOCIAL AND FUNCTIONAL HISTORY Social History Tobacco Use Smoking Status Current Every Day Smoker ??? Packs/day: 0.35 ??? Types: Cigarettes Smokeless Tobacco Never Used Tobacco Comment 8 cigs a day Social History Substance and Sexual Activity Alcohol Use Yes Comment: occasionally Social History Substance and Sexual Activity Drug Use Never REVIEW OF SYSTEMS: Review of Systems All other systems reviewed and are negative. OBJECTIVE Vitals: BP 131/78 (BP Location: Right arm, Patient Position: Sitting) Pulse 76 Temp 37 ??C (98.6 ??F) (Oral) Resp 18 Ht 170.2 cm (5' 7 ) Wt 48.5 kg (106 lb 14.4 oz) SpO2 100% BMI 16.74 kg/m?? Physical Exam Physical Exam Constitutional: Appearance: Normal appearance. HENT: Head: Normocephalic and atraumatic. Mouth/Throat: Mouth: Mucous membranes are moist. Pharynx: Oropharynx is clear. Eyes: General: No scleral icterus. Extraocular Movements: Extraocular movements intact. Pupils: Pupils are equal, round, and reactive to light. Cardiovascular: Rate and Rhythm: Normal rate and regular rhythm. Pulses: Normal pulses. Heart sounds: Normal heart sounds. Pulmonary: Effort: Pulmonary effort is normal. Breath sounds: Normal breath sounds. Abdominal: General: Bowel sounds are normal. Palpations: Abdomen is soft. Tenderness: There is no abdominal tenderness. There is no guarding. Musculoskeletal: General: No swelling. Normal range of motion. Feet: Comments: Thickened, yellow appearance of all nails on R foot. Neurological: General: No focal deficit present. Mental Status: He is alert and oriented to person, place, and time. Psychiatric: Mood and Affect: Mood normal. Behavior: Behavior normal. Data: BMP Resulted in the Past 12 Months 07/14/21 1022 07/14/21 0951 07/14/21 0823 SODIUM -- -- 137 POTASSIUM -- -- 5.3* CHLORIDE -- -- 95* CO2 -- -- 26 BUNSER -- -- 13 CREATININE -- -- 0.87 GLUCOSE 122 < > 50* CALCIUM -- -- 10.3 ANIONGAP -- -- 16* < > = values in this interval not displayed. LFTs Resulted in the Past 12 Months 07/14/21 0823 BILITOT 0.8 PROT 8.5 ALBUMIN 5.3* ALKPHOS 78 ALT 22 AST 35 CBC Resulted in the Past 12 Months 07/14/21 0823 WBC 11.2* HGB 14.7 LABPLAT 221 MCV 92.5 LDL, ca06/18/2020: LDL, calculated 79 HgbA1C: Lab Results Component Value Date HGBA1C 4.9 06/18/2020 HGBA1C 4.9 06/13/2018 HGBA1C 5.3 03/10/2016 ASSESSMENT AND PLAN Yariel Hill is a 51 y.o. man w/ PMHx of alcohol/tobacco use, HLD, HTN and onychomycosis Problem List Cardiac and Vasculature Hyperlipidemia Current Assessment & Plan - Last lipid panel in 06/18/2020 w/ cholesterol 169, LDL 79 and HDL 76. Currently on rosuvastatin 20mg - continue current statin - Repeat lipid panel Relevant Orders Lipid panel Hypertension (Chronic) Current Assessment & Plan -Normotensive in clinic today -Home regimen: Amlodipine 10mg -Cont home regimen -Repeat BMP given prior hyperkalemia Relevant Orders Basic metabolic panel Mental Health Alcohol-induced insomnia (CMS/HCC) (HCC) Relevant Medications melatonin 3 mg tablet extended release Skin Onychomycosis - Primary (Chronic) Current Assessment & Plan - Recently completed 3mo course of terbinafine with minimal improvement. - Will order hepatic function panel due to concern for terbinafine use with alcohol - Prescribed urea 40% BID for 14 days to affected toes. Relevant Medications urea (CARMOL) 40 % cream Other Relevant Orders Hepatic function panel Tobacco Tobacco use Current Assessment & Plan - Currently smoking 5-7 cigarettes per day - Discussed willingness to quit and discussed options including medicines and nicotine replacement - Pt declined conversation w/ pharmacist for smoking cessation - Contemplative but not interested; states he may try NRT w/ the gum, but declines patches 2/2 prior allergic reaction to the adhesive #HCM - Last colonoscopy 05/2021(needs repeat in 7 years 2/2 hx of 2 TAs removed in 2019) - Covid Vaccinated - Flu shot to be given today Today: - Immediate barriers to care: none - Encounter orders: Orders Placed This Encounter Procedures ??? Lipid panel ??? Basic metabolic panel ??? Hepatic function panel ??? HIV 1/2 Antibody plus p24 Antigen ??? Hemoglobin A1c RTC in Return in about 6 months (around 02/17/2022). David Feliz MD 08/19/21 4:17 PM Cosigned by Vasu Young at 08/19/2021 5:35 PM CDT Associated attestation - Vasu Young - 08/19/2021 5:35 PM CDT I have seen and examined the patient. I agree with the findings and plan of care as documented in the resident/fellow's note. Instructed to use urea only on affected nail and that it would damage skin if left on there. Instructed to thoroughly wash hands after application. Offered naltrexone but he declines use at this time. documented in this encounter Miscellaneous Notes * Assessment & Plan Note - David Feliz MD - 08/19/2021 4:15 PM CDT Associated Problem(s): Tobacco use - Currently smoking 5-7 cigarettes per day - Discussed willingness to quit and discussed options including medicines and nicotine replacement - Pt declined conversation w/ pharmacist for smoking cessation - Contemplative but not interested; states he may try NRT w/ the gum, but declines patches 2/2 prior allergic reaction to the adhesive * Assessment & Plan Note - David Feliz MD - 08/19/2021 4:09 PM CDT Associated Problem(s): Onychomycosis - Recently completed 3mo course of terbinafine with minimal improvement. - Will order hepatic function panel due to concern for terbinafine use with alcohol - Prescribed urea 40% BID for 14 days to affected toes. * Assessment & Plan Note - David Feliz MD - 08/19/2021 4:08 PM CDT Associated Problem(s): Hyperlipidemia - Last lipid panel in 06/18/2020 w/ cholesterol 169, LDL 79 and HDL 76. Currently on rosuvastatin 20mg - continue current statin - Repeat lipid panel * Assessment & Plan Note - David Feliz MD - 08/19/2021 4:05 PM CDT Associated Problem(s): Hypertension -Normotensive in clinic today -Home regimen: Amlodipine 10mg -Cont home regimen -Repeat BMP given prior hyperkalemia documented in this encounter Plan of Treatment [...] of this encounter Results * Hemoglobin A1c (08/19/2021 4:07 PM CDT) Pathologist [facility] [place] Hgb A1C 5.1 4.0 - 5.6 % [facility] Estimated Average Glucose 100 mg/dL [facility] Comment: The ADA recommends reporting an estimated [...] MD LAB BLOOD ORDERABLES Final Result [facility] Department [place] [address] * HIV 1/2 Antibody plus p24 Antigen (08/19/2021 4:07 PM CDT) Pathologist [facility] [place] HIV 1/2 ab + p24 ag Nonreactive Nonreactive [facility] Comment: Nonreactive for HIV-1 antigen and HIV-1/HIV-2 antibodies. No laboratory evidence of HIV infection. If acute HIV infection is suspected, consider testing for HIV-1 RNA. Blood 08/19/2021 4:07 PM CDT 08/19/2021 4:58 PM CDT David Feliz MD LAB MICROBIOLOGY - NERAL ORDERABLES Final Result Performing Organization Address [facility] Co de Phone Number [facility] [place] [address] * Hepatic function panel (08/19/2021 4:07 PM CDT) Bilirubin, total 0.3 0.1 - 1.2 mg/dL [facility] Bilirubin, direct <0.2 0.1 - 0.3 mg/dL [facility] Protein, pl 7.6 6.5 - 8.5 g/dL [facility] Albumin 4.8 3.5 - 5.0 g/dL [facility] Alk phos 67 40 - 130 Units/L [facility] ALT 20 7 - 55 Units/L [facility] AST 34 10 - 50 Units/L [facility] Comment:Hemolyzed; result ma y be falsely elevated Blood 08/19/2021 4:07 PM CDT 08/19/2021 4:58 PM CDT David Feliz MD LAB BLOOD ORDERABLES Final Result Performing Organization Address [facility] de Phone Number [facility] Department [place] [address] * Basic metabolic panel (08/19/2021 4:07 PM CDT) Sodium 141 135 - 145 mmol/L [facility] Potassium, pl 4.2 3.3 - 4.9 mmol/L [facility] Comment:Hemolyzed; Potassium value may be falsely elevated by as much as 0.3-0.5 mmol/L. Suggest redraw and reanalysis. Chloride 101 97 - 110 mmol/L [facility] CO2 26 22 - 32 mmol/L [facility] Anion gap 14 2 - 15 mmol/L [facility] BUN 12 8 - 25 mg/dL [facility] Creatinine 1.13 0.80 - 1.30 mg/dL [facility] Glucose 80 70 - 199 mg/dL [facility] Comment: Interpretive Data Fasting glucose >/= [...] Calcium 9.6 8.5 - 10.3 mg/dL [facility] Blood 08/19/2021 4:07 PM CDT 08/19/2021 4:58 PM CDT David Feliz MD LAB BLOOD ORDERABLES Final Result [facility] Department [place] [address] * Lipid panel (08/19/2021 4:07 PM CDT) [facility] Cholesterol 112 30 - 199 mg/dL [facility] Comment: Interpretive Data Ages < or = [...] revised on 2018. Triglycerides 43 <=149 mg/dL [facility] Comment: Interpretive Data Ages < or = [...] revised on 2018. HDL 56 >=40 mg/dL [facility] Comment: Interpretive Data Ages < or = [...] 2018. LDL, calculated 47 <=129 mg/dL [facility] Comment: Interpretive Data Ages < or = [...] revised on 2018. Non-HDL Cholesterol 56 mg/dL [facility] Comment: Interpretive Data Ages [...] last revised on 2018. Chol/HDL ratio 2 [facility] Blood 08/19/2021 4:07 PM CDT 08/19/2021 4:58 PM CDT David Feliz MD LAB BLOOD ORDERABLES Final Result [facility] Department of Laboratories [place], [place] [phone] documented in this encounter Visit Diagnoses Diagnosis Onychomycosis- Primary Dermatophytosis of nail Hyperlipidemia, unspecified hyperlipidemia type Primary hypertension Unspecified essential hypertension Alcohol-induced insomnia (CMS/HCC) (HCC) Screening for HIV (human immunodeficiency virus) Special screening examination for other specified viral diseases Screening for diabetes mellitus (DM) Screening for diabetes mellitus Tobacco use documented in this encounter Care Teams Accounts Receivable Clerk Relationship Specialty Start Date End Date David Feliz MD PCP - General 04/18/21 07/26/22 documented as of this encounter
--- OUTSIDE RECORDS SUMMARY | 2024-11-04 22:15 | XMS_ITS | Encounter Summary ---
Author Organization [facility] Address [address] [address] Care Team Providers Care Configuration Management Administrator Name Role Phone Clare Kasper MD Primary Care Pro vider Reason for Visit * Reason Onset Date Comments Forms Request 05/09/2023 Encounter Details Date Type Department Care Team ([facility] Contact Info) Description 05/09/2023 Telephone [facility] Primary Care at [address] [phone] Clare Kasper MD [address] [place] [phone] Forms Request Social History Tobacco Use Types Packs/Day [...] on file 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 Nothing further at this time. * Telephone Encounter - Clare Kasper MD - 05/09/2023 12:14 PM CDT Previously given a letter in January after procedure. He hasn't been seen since then so I cannot speak to his health since then. Must be actively being seen for an issue to get a letter in regards to missing work. * Telephone Encounter - Lo Prescott - 05/09/2023 11:37 AM CDT Forms Request Form requested: Other Form Form Name: Release to work letter Date needed: As soon as possible How is patient delivering to office: Patient requesting letter, no form needed to be completed but patient received need for this information. Who is form being returned to? Patient How to return form to patient:sending to patient as attachment via [employer] Callback #: [phone] Additional Comments: Patient has a temporary job and has been off work since seen in office on 02/04/23 due to procedure and leg pain he discussed. States he is doing much better but work needs a note that says he has been off since then and is capable to returning to work now. Does message need to be routed? Yes-Action [...] on filedocumented in this encounter Care Teams Configuration Management Administrator Relationship Specialty Start Date End Date Clare Kasper MD PCP - General Family Medicine 07/27/22 documented as of this encounter
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
--- OUTSIDE RECORDS SUMMARY | 2024-11-04 22:15 | XMS_ITS | Encounter Summary ---
Author Organization [facility] Healthcare Address [address] [place] [address] Care Team Providers Care Instant Printer Operator Name Role Phone Teresita Painting MD Primary Care Prov ider Reason for Visit * Reason Onset Date Comments Letter for School/Work 03/13/2021 return to work on Tuesday, 03-16. Encounter Details Date Type Department Care Team (Late st Contact Info) Description 03/13/2021 Telephone [facility] Medicine [facility] [address] [facility] [address] [place] [address] Teresita Painting MD [address] [facility] [address] [address] [place], [place] [id number] Letter for School/Work (return to work on Tuesday, 03-16.) Social History Tobacco Use Types Packs/Day Years Used Date Smoking Tobacco: Every Day Cigarettes Smokeless Tobacco: Never Comments:8 cigs a day Alcohol Use Standard Drinks/Week Comments Yes 0 (1 standard drink = 0.6 oz pur e alcohol) occasionally Sex and Gender Information Value Date Recorded Sex Assigned at Not on file 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 Pt # [phone] Rico Carrizales [phone] * Telephone Encounter - Teresita Painting MD - 03/16/2021 9:27 AM CDT Printed * Telephone Encounter - Rita Correa - 03/13/2021 12:45 PM CDT Team 8 Patient was absent from work this whole last week with draining sinuses thru the back of his throatand coughing up green mucous. He said he feels better today, but needs a letter excusing him from work for the week. Rico Carrizales [phone] documented in this encounter Plan of Treatment [...] on filedocumented in this encounter Care Teams Instant Printer Operator Relationship Specialty Start Date End Date Teresita Painting MD PCP - General 10/25/19 04/17/21 documented as of this encounter
--- OUTSIDE RECORDS SUMMARY | 2024-11-04 22:15 | XMS_ITS | Encounter Summary ---
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 Gender Identity Not on file Sexual Orientation Not on file documented as of this encounter Last Filed Vital Signs Vital Sign Reading Time Taken Comments Blood Pressure 127/82 04/20/2023 7:29 PM CDT Pulse 91 04/20/2023 7:28 PM CDT Temperature 36.4 ??C (97.6 ??F) 04/20/2023 7:28 PM CD T Respiratory Rate 16 04/20/2023 7:28 PM CDT Oxygen Saturation 98% 04/20/2023 7:28 PM CDT Inhaled Oxygen Concentration - - Weight 59 kg (130 lb) 04/20/2023 7:29 PM CDT Height 170.2 cm (5' 7 ) 04/20/2023 7:29 PM CDT Body Mass Index 20.36 04/20/2023 7:29 PM CDT documented in this encounter Medications at Time of Discharge triamcinolone (KENALOG) 0.1 % ointmentIndications :Eczema, unspecified type Apply topically 2 (two) times a day as needed for irritation or rash Do not use daily for more than 2 weeks at a time 30 g 09/30/2022 amLODIPine (NORVASC) 10 mg tabletIndications:P rimary hypertension Take 1 tablet (10 mg total) by mouth daily 90 tablet 1 01/24/2023 3 chlordiazePOXIDE (LIBRIUM) 25 mg capsuleIndications: Alcohol Withdrawal Syndrome 03/02: Take 2 capsules every 6 hours 54: Take 2 capsules every 8 hours 5: Take 1 capsule every 8 hours 56: Take 1 capsule twice daily 03/06: Take 1 capsule once daily 20 capsule [...] Discharge Disposition Disposition Code Departure Means Destination Left without being seen documented in this encounter ED Notes * Jo Doty RN - 04/20/2023 7:29 PM CDT Pt arrived to ED via car dropped off by family c/o chest pain x 2 days but worsened today. Pt reports left sided chest pain that is achey and intermittent. Pt denies any headache, dizziness, numbnessor SOB. Hx GERD. Pt denies any cardiac hx. Pt also c/o ETOH w/d. Pt reports he drinks daily x 10 days. Pt reports beer and liquor. Pt reports his last drink x 2 hours ago. Pt reports he feels jitteryand shakey. Pt has w/d from ETOH before. No hx ETOH w/d seizures. Hx alcohol abuse. NAD otherwise. A&OX4. VSS documented in this encounter Miscellaneous Notes * ED Procedure Note - Home Burns DO - 04/20/2023 7:41 PM CDT Associated Order(s): ECG 12 lead Procedure ECG 12 lead Date/Time: 04/20/2023 7:29 PM Performed by: Home Burns DO Authorized by: Lei Griffith MD Rate: ECG rate: 76 ECG rate assessment: normal Rhythm: Rhythm: sinus rhythm Ectopy: Ectopy: none QRS: QRS axis: Normal QRS intervals: Normal Conduction: Conduction: normal ST segments: ST segments: Normal T waves: T waves: normal Previous ECG: Previous ECG: Compared to current Date of previous EC07/14/2021 Similarity: No change Home Burns DO 04/20/231940 documented in this encounter Plan of Treatment [...] Priority Date/Time Associated Diagnosis Comments ECG 12-LEAD STAT 04/20/2023 7:29 PM CDT documented in this encounter Results * ECG 12-LEAD (04/20/2023 7:29 PM CDT) Narrative [facility] - 04/20/2023 7:29 PM CDT Home Burns, DO ? 04/20/2023 ??7:41 PM ECG 12 lead Date/Time: 04/20/2023 7:29 PM Performed by: Home Burns, DO Authorized by: Lei Griffith MD ?? Rate: ??ECG rate: ??76 ??ECG rate assessment: normal ?? Rhythm: ??Rhythm: sinus rhythm ?? Ectopy: ??Ectopy: none ?? QRS: ??QRS axis: ??Normal ??QRS intervals: ??Normal Conduction: ??Conduction: normal ?? ST segments: ??ST segments: ??Normal T waves: ??T waves: normal ?? Previous ECG: ??Previous ECG: ??Compared to current ??Date of previous ECG: ??07/14/2021 ??Similarity: ??No change Procedure Note Home Burns DO - 04/20/2023 7:41 PM CDT Procedure ECG 12 lead Date/Time: 04/20/2023 7:29 PM Performed by: Home Burns DO Authorized by: Lei Griffith MD Rate: ECG rate: 76 ECG rate assessment: normal Rhythm: Rhythm: sinus rhythm Ectopy: Ectopy: none QRS: QRS axis: Normal QRS intervals: Normal Conduction: Conduction: normal ST segments: ST segments: Normal T waves: T waves: normal Previous ECG: Previous ECG: Compared to current Date of previous EC07/14/2021 Similarity: No change Home Burns DO 04/20/231940 us Lei Griffith MD ECG ORDERABLES Final Result [facility] documented in this encounter Visit Diagnoses Not on filedocumented in this encounter Active and Recently Administered Medications Orders Medications Ordered That Gama ht Not Have Been Administered Count Last Ordered Date First Ordered Date aspirin chewable tablet 324 mg 1 04/20/2023 documented in this encounter Care Teams Chocolate Molder Relationship Specialty Start Date End Date Clare Kasper MD PCP - General Family Medicine 07/27/22 documented as of this encounter
--- OUTSIDE RECORDS SUMMARY | 2024-11-04 22:15 | XMS_ITS | Encounter Summary ---
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
--- OUTSIDE RECORDS SUMMARY | 2024-11-04 22:16 | XMS_ITS | Encounter Summary ---
Author Organization [facility] Healthcare Address [address] [place] [address] Care Team Providers Care Nutrition Helper Name Role Phone Teresita Painting MD Primary Care Prov ider Reason for Visit * Reason Comments Rash occurs after shower, at night, Encounter Details Date Type Department Care Team (Late st Contact Info) Description 09/29/2018 3:00 PM FACILITIES MANAGER Office Visit [facility] Medicine Clinic [address] [facility] [address] [place], [place] [id number] Christiano Heller MD [address] [place] [address] Teresita Painting MD [address] [facility] [address] [place] [address] Alcohol abuse (Primary Dx); Anemia, unspecified type; Essential hypertension; Vitamin D deficiency; Smoking; Healthcare maintenance; H/O ETOH abuse; Sinus congestion Discharge Disposition: Discharge to home or self care Social History Tobacco Use Types Packs/Day Years Used Date Smoking Tobacco: Every Day Cigarettes Smokeless Tobacco: Never Alcohol Use Standard Drinks/Week Comments Yes 0 (1 standard drink = 0.6 oz pur e alcohol) Sex and Gender Information Value Date Recorded Sex Assigned at Not on file Legal Sex Male 2:37 PM FACILITIES MANAGER Gender Identity Not on file Sexual Orientation Not on file documented as of this encounter Last Filed Vital Signs Vital Sign Reading Time Taken Comments Blood Pressure 157/81 09/29/2018 3:24 PM FACILITIES MANAGER Pulse 110 09/29/2018 3:24 PM FACILITIES MANAGER Temperature 36.8 ??C (98.3 ??F) 09/29/2018 3:24 PM CS T Respiratory Rate 14 09/29/2018 3:24 PM FACILITIES MANAGER n on-labored Oxygen Saturation 99% 09/29/2018 3:24 PM FACILITIES MANAGER room air Inhaled Oxygen Concentration - - Weight 49.4 kg (109 lb) 09/29/2018 3:24 PM FACILITIES MANAGER Height - - Body Mass Index 17.33 06/17/2017 2:59 PM CDT documented in this encounter Patient Instructions * Patient Instructions* Teresita Painting MD - 09/29/2018 3:00 PM FACILITIES MANAGER Images from the original note were not included. Taper alcohol intake from current 5-6 drinks/day gradually. If you experience severe withdrawal symptoms or seizures go to the ED. Please have your colonoscopy done Use nasal spray one puff twice a day for congestion Pt received their discharge instructions. You received a flu shot today to your right arm (Flulaval) Patient Education Influenza Vaccine WHAT YOU NEED TO KNOW: What is the influenza vaccine? The influenza vaccine is an injection given to help prevent influenza (flu). The flu is caused by a virus. The virus spreads from person to person through coughing and sneezing. Several types of viruses cause the flu. The viruses foreign exchange services manager time, so new vaccines are made each year. The vaccine begins to protect you about 2 weeks after you get it. The flu shot usually injected into your upper arm. It may be given in your thigh. What are the types of influenza vaccines? You may get a vaccine with a weak, live, or virus. The vaccine with a live virus can cause mild illness, but it does not cause the flu. When should I get the influenza vaccine? The influenza vaccine is offered every year starting in July or July. Get the influenza vaccine as soon as it is available. Children between 6 months and 8 years old need 2 vaccines during the first year they get the vaccine. The 2 vaccines should begiven 4 or more weeks apart. It is best if the same type of vaccine is given both times. Who should get the flu shot? ?? Infants 6 months or older ?? Any healthy adult who would like to decrease the risk for the flu ?? Anyone living with or caring for children younger than 5 years ?? Healthcare workers ?? Anyone who lives in a long-term care facility ?? Anyone who has chronic health problems, such as asthma, diabetes, or blood disorders ?? Anyone who has a weak immune system ?? Women who are or will be during the flu season Who should not get the flu shot? ?? Anyone who has an egg allergy should ask the healthcare provider if it is safe to get the flu shot ?? Infants younger than 6 months ?? Anyone who has had an allergic reaction to the flu shot ?? Anyone who is sick or has a fever ?? Anyone who received a diagnosis of Guillain-Colby?? syndrome within 6 weeks of getting a flu vaccine ?? Anyone who is allergic to thimerosal (mercury) What are the risks of the influenza vaccine? The flu shot may cause mild symptoms, such as a fever,headache, and muscle aches. It may also cause mild to moderate soreness or redness at the area where you were given the shot. You may still get the flu after you receive the influenza vaccine. If youare allergic to eggs, ask about an egg-free vaccine. You may have an allergic reaction to the vaccine. This can be life-threatening. Call 911 for any of the following: ?? Your mouth and throat are swollen. ?? You are wheezing or have trouble breathing. ?? You have chest pain or your heart is beating faster than normal for you. ?? You feel like you are going to faint. When should I seek immediate care? ?? Your face is red or swollen. ?? You have hives that spread over your body. ?? You feel weak or dizzy. When should I contact my healthcare provider? ?? You have increased pain, redness, or swelling around the area where the shot was given. ?? You have questions or concerns about the influenza vaccine. CARE AGREEMENT: You have the right to help plan your care. Learn about your health condition and how it may be treated. Discuss treatment options with your caregivers to decide what care you want to receive. You always have the right to refuse treatment. The above information is an educational interpreter only. It is not intended as medical advice for individual conditions or treatments. Talk to your doctor, nurse or pharmacist before following any medical regimen to see if it is safe and effective for you. ?? 2016 [employer] Information is for End User's use only and may not be sold, redistributed or otherwise used for commercial purposes. All illustrations and images included in CareNotes?? are the copyrighted property of [employer]. or [employer]. Pt arrived ambulating with a steady gait, requires no assistance. Pt was discharged with a steady gait. LITIES MANAGER LITIES MANAGER documented in this encounter Ordered Prescriptions Prescription Sig Dispense Quantity Refills Last Filled Start Date End Date fluticasone (FLONASE) 50 mcg/actuation nasal sprayIndications:S inus congestion Administer 2 sprays into each nostril daily. 16 g 5 09/29/2018 1 amLODIPine (NORVASC) 5 mg tabletIndications: Essential hypertension Take 1 tablet (5 mg total) by mouth daily. 90 tablet 3 09/29/2018 9 ergocalciferol (VITAMIN D) 50,000 unit capsuleIndications :Vitamin D deficiency Take 1 capsule (50,000 Units total) by mouth once a week. 4 capsule 2 09/29/2018 9 documented in this encounter Discharge Disposition Disposition Code Departure Means Destination Discharge to home or self care documented in this encounter Progress Notes * Teresita Painting MD - 09/29/2018 3:00 PM CST Primary Care Medicine Clinic Office Visit Note Patient Name: Yariel Hill : 1970 Date: 09/29/2018 PCP: Teresita Painting MD Chief Complaint: sinus pain, itching, wants to stop drinking HPI: Yariel Hill is a 48 y.o. male with hypertension, currently smoking, h/o alcoholic pancreatitis and ETOH use disorder who presents with sinus pain, itching on his leg and he would like to stop drinking. Mr. Hill reports that he started drinking again about a week ago during . He reportsthat he does this a few times a year. He is currently drinking 4-6 beers plus a few shots of whisky. His last drink was this morning. He denies a history of seizures/DTs but he does feel uncomfortable and inquires about getting some librium as this has helped him stop drinking in the past. He has ahistory of pancreatitis and denies abdominal pain/nausea or vomiting today. He reports that he's felt sick lately with sinus pressure, runny nose and watery eyes. He denies fevers, chills, cough, sore through or other flu like symptoms. He has a rash on his leg that itches after he takes a shower. He is using Caress body wash with fragrance on his body and dove soap on his face. The rash is small and localized to the left outer thigh. He has recently restarted his amlodipine and has been taking it now for 3 days. He continues to smoke 1/2 PPD. Past Medical and Sugical History as above. No Known Allergies Current Outpatient Prescriptions Medication Sig Dispense Refill ??? amLODIPine (NORVASC) 5 mg tablet Take 1 tablet (5 mg total) by mouth daily. 90 tablet 3 ??? ergocalciferol (VITAMIN D) 50,000 unit capsule Take 1 capsule (50,000 Units total) by mouth once a week. 4 capsule 2 No current facility-administered medications for this visit. Social History Social History ??? Marital status: Single Spouse name: N/A ??? Number of children: N/A ??? Years of education: N/A Social History Main Topics ??? Smoking status: Current Every Day Smoker Packs/day: 0.50 Types: Cigarettes ??? Smokeless tobacco: Never Used ??? Alcohol use Yes ??? Drug use: Unknown ??? Sexual activity: Not on file Other Topics Concern ??? Not on file Social History Narrative ??? No narrative on file Family History Problem Relation Age of Onset ??? Kidney cancer Father Cancer, kidney; ??? Hypertension Mother Hypertension; Review of Systems All other systems reviewed and are negative. Vitals: 09/29/18 1524 BP: 157/81 BP Location: Left arm Patient Position: Sitting Pulse: 110 Resp: 14 Temp: 36.8 ??C (98.3 ??F) TempSrc: Oral SpO2: 99% Weight: 49.4 kg (109 lb) Physical Exam Constitutional: He is oriented to person, place, and time. He appears well- nourished. No distress. Thin, appears fatigued today HENT: Head: Normocephalic and atraumatic. Nose: Nose normal. Mouth/Throat: Oropharynx is clear and moist. Eyes: Conjunctivae and EOM are normal. Right eye exhibits no discharge. Left eye exhibits no discharge. No scleral icterus. Neck: Normal range of motion. Neck supple. Cardiovascular: Normal rate and regular rhythm. No murmur heard. Pulmonary/Chest: Effort normal and breath sounds normal. No respiratory distress. He has no wheezes. Abdominal: Soft. He exhibits no distension. There is no tenderness. Musculoskeletal: He exhibits no edema, tenderness or deformity. Neurological: He is alert and oriented to person, place, and time. Skin: Skin is warm and dry. He is not diaphoretic. No erythema. Small area of retail beauty specialist discoloration on left outer thigh. No erythema or exudate. No excoriations, papules, pustules present. Non tender. Psychiatric: He has a normal mood and affect. Nursing note and vitals reviewed. Assessment and Plan: Problem List Vitamin D deficiency (Chronic) Current Assessment & Plan Vitamin D 18 on 05/2018 labs, will start 50,000 units vit D weekly today. Smoking (Chronic) Current Assessment & Plan Was given patches at our last visit however he feels like they make him itch. He continues to smoke1/2PPD. -As he has other active issues going on today, namely ETOH cessation, we will defer further discussion to our next visit. Would consider pharmacologic therapy for him, chantix vs wellbutrin. Alcohol abuse - Primary (Chronic) Overview Current Assessment & Plan He typically drinks twice a year for [...] he ought to present to the ED. Hypertension (Chronic) Overview -on amlodipine and lisinopril, not adherent to current regimen for fear of hypotension -Will d/c lisinopril and continue amlodipine 5mg daily -Discussed DASH diet, patient eating a lot of salty food (Abdi's, turkish fries, chips, soda). Identified a couple of vegetables that he does like (green beans and corn) and encouraged him to eat those. Did confirm that it is in fact less expensive for him to purchase food at the grocery store thanit is to buy fast food. -Blood pressure log discussed, planning to bring it in next visit -CMP sent Cr was trending up 1.09 on last check. Current Assessment & Plan Poorly controlled hypertension 157/81 in clinic today. [...] they can be prevented by adherence to hisregimen. -Will continue amlodipine 5mg daily for now and increase as needed at his next visit. Relevant Medications amLODIPine (NORVASC) 5 mg tablet Healthcare maintenance Overview General - A1c (for pts c BP >135/80): 4.9% 05/2018 - Lipids (men >35): 2016 wnl, will get again in 2019 Cancer - Colonoscopy (age 45-75): Ordered today - Lung (55-80 c >30 pk-yr hx, and smoking in past 15yrs): NA Infectious Disease - HIV (age 15-65): NR 05/2018 - Gonorrhea/Chlamydia (<24 or increased risk): Neg 05/2018 - Syphilis (if increased risk): NR 05/2018 Immunizations - Influenza (annually): 09/29/2018 - Td/Tdap (q10 years): - PPSV23 (age >65, immunocomp, DM, CKD, heart dz, lung dz, liver dz, EtOH, asplenia): - PCV13 (age >65, immunocomp, CKD, asplenia): Current Assessment & Plan Flu shot and referral for colonoscopy today Relevant Orders Colonoscopy RESOLVED: H/O ETOH abuse Overview Anemia Current Assessment & Plan Mild anemia with last Hb 12.9 (from 12/2016). Folate, B12, Iron panel normal. -CBC today Relevant Orders CBC with auto differential Return in about 3 months (around 12/28/2018) for with me PCP. Reminders for Next Visit: ETOH use, anemia, hypertension, f/u colonoscopy. Revisit smoking when able. Leigha Painting MD Internal Medicine PGY-2 Resident Physician Department of Medicine [facility] [address] [place] [address] [address] [place] [address] Attending Notes: 48 yo with HTN, alcohol abuse, smoking, anemia here for follow up. # EtOH use - binge drinks 6 days in a roll, wants to stop drinking. # HTN - not taking meds. 157/81, restart meds. # Anemia - check CBC. # Vitamin D def - repletion # HM - order C-scope. Cosigned by Gage Ragland MD at 10/02/2018 11:46 AM FACILITIES MANAGER LITIES MANAGER LITIES MANAGER Associated attestation - Gage Ragland MD - 10/02/2018 11:46 AM FACILITIES MANAGER I have seen and examined the patient. I agree with the findings and plan of care as discussed with the resident.. * Teresita Painting MD - 09/29/2018 3:00 PM CST Primary Care Medicine Clinic Office Visit Note No past medical history on file. No past surgical history on file. No Known Allergies Current Outpatient Prescriptions Medication Sig Dispense Refill ??? amLODIPine (NORVASC) 5 mg tablet Take 1 tablet (5 mg total) by mouth daily. 90 tablet 3 ??? nicotine (NICODERM CQ) [address] 1 patch on the skin daily. 28 patch 1 No current facility-administered medications for this visit. Social History Social History ??? Marital status: Single Spouse name: N/A ??? Number of children: N/A ??? Years of education: N/A Social History Main Topics ??? Smoking status: Current Every Day Smoker Packs/day: 0.50 Types: Cigarettes ??? Smokeless tobacco: Never Used ??? Alcohol use Yes ??? Drug use: Unknown ??? Sexual activity: Not on file Other Topics Concern ??? Not on file Social History Narrative ??? No narrative on file Family History Problem Relation Age of Onset ??? Kidney cancer Father Cancer, kidney; ??? Hypertension Mother Hypertension; Review of Systems Vitals: 09/29/18 1524 BP: 157/81 BP Location: Left arm Patient Position: Sitting Pulse: 110 Resp: 14 Temp: 36.8 ??C (98.3 ??F) TempSrc: Oral SpO2: 99% Weight: 49.4 kg (109 lb) Physical Exam Assessment and Plan: Problem List None No Follow-up on file. Reminders @MD@ Resident Physician Department of Medicine [facility] [address] [place] [address] [address] [place] [address] LITIES MANAGER documented in this encounter Miscellaneous Notes * Assessment & Plan Note - Teresita Painting MD - 09/29/2018 5:38 PM CSTAssociated Problem(s): Annual physical exam Flu shot and referral for colonoscopy today LITIES MANAGER * Assessment & Plan Note - Teresita Painting MD - 09/29/2018 5:32 PM CSTAssociated Problem(s): Alcohol use disorder He typically drinks twice a year for [...] he ought to present to the ED. LITIES MANAGER LITIES MANAGER * Assessment & Plan Note - Teresita Painting MD - 09/29/2018 5:29 PM CSTAssociated Problem(s): Sinus congestion (Resolved 07/06/2019) Mild sinus congestion today. No indication for further workup or antibiotics. -Fluticasone nasal spray for 2 weeks to a month LITIES MANAGER * Assessment & Plan Note - Teresita Painting MD - 09/29/2018 5:27 PM CSTAssociated Problem(s): Smoking Was given patches at our last visit however he feels like they make him itch. He continues to smoke1/2PPD. -As he has other active issues going on today, namely ETOH cessation, we will defer further discussion to our next visit. Would consider pharmacologic therapy for him, chantix vs wellbutrin. LITIES MANAGER * Assessment & Plan Note - Teresita Painting MD - 09/29/2018 5:26 PM CSTAssociated Problem(s): Anemia Mild anemia with last Hb 12.9 (from 12/2016). Folate, B12, Iron panel normal. -CBC today LITIES MANAGER * Assessment & Plan Note - Teresita Painting MD - 09/29/2018 5:25 PM CSTAssociated Problem(s): Vitamin D deficiency (Resolved 04/23/2021) Vitamin D 18 on 05/2018 labs, will start 50,000 units vit D weekly today. LITIES MANAGER * Assessment & Plan Note - Teresita Painting MD - 09/29/2018 5:22 PM CSTAssociated Problem(s): Hypertension Poorly controlled hypertension 157/81 in clinic today. [...] they can be prevented by adherence to hisregimen. -Will continue amlodipine 5mg daily for now and increase as needed at his next visit. LITIES MANAGER documented in this encounter Plan of [...] orders or changes made to medication regimen. documented as of this encounter Results * (ABNORMAL) CBC with auto differential (10/05/2018 3:11 PM FACILITIES MANAGER) WBC 8.3 3.8 - 9.9 K/cumm [facility] Hgb 14.3 13.0 - 17.5 g/dL [facility] Hct 43.4 38.9 - 50.3 % [facility] Plt 202 150 - 400 K/cumm [facility] MPV 9.7 9.1 - 12.3 fL [facility] RBC 4.55 4.30 - 5.80 M/cumm [facility] MCV 95.4 81.3 - 96.4 fL [facility] MCH 31.4 27.1 - 33.3 pg [facility] MCHC 32.9 32.3 - 35.7 g/dL [facility] RDW CV 13.8 11.1 - 14.9 % [facility] RDW SD 48.6(H) 35.7 - 48.1 fL [facility] NRBC abs 0.00 0.00 - 0.01 K/cumm [facility] Blood specimen (specimen) 10/05/2018 3:11 PM FACILITIES MANAGER 10/05/2018 4:12 PM FACILITIES MANAGER Narrative [facility] - 10/05/2018 4:25 PM FACILITIES MANAGER Christiano Heller MD LAB BLOOD ORDERABLES Carrie khanna Result [facility] Department [place] [address] documented in this encounter Visit Diagnoses Diagnosis Alcohol abuse- Primary Nondependent alcohol abuse, unspecified drinking behavior Anemia, unspecified type Essential hypertension Unspecified essential hypertension Vitamin D deficiency Smoking Tobacco use disorder Healthcare maintenance H/O ETOH abuse Sinus congestion Other diseases of nasal cavity and sinuses Anemia, unspecified type documented in this encounter Discontinued Medications Medication Sig Discontinue Reason Start Date End Da te nicotine (NICODERM CQ) [address] 1 patch on the skin daily. Duplicate order 06/13/2018 09/29/2018 amLODIPine (NORVASC) 5 mg tablet Take 1 tablet (5 mg total) by mouth daily. Reorder 04/13/2018 09/29/2018 documented as of this encounter Care Teams Nutrition Helper Relationship Specialty Start Date End Date Teresita Painting MD PCP - General Obstetrics and Gynecology 07/26/1807/02 documented as of this encounter
--- OUTSIDE RECORDS SUMMARY | 2024-11-04 22:16 | XMS_ITS | Encounter Summary ---
Author Organization [facility] Facility Care Team Providers Care Wrecking Mechanic Name Role Phone Darius Fernández MD Primary Care Provider [phone] Encounter Details Date Type Department Care Team (Late st Contact Info) Description 12/03/2016 2:59 PM TALENT ASSOCIATE - 12/03/2016 11:59 PM TALENT ASSOCIATE Hospital Encounter [facility] Darius Fernández MD [address] [place] [address] DR Serrano [address] [address] Essential (primary) hypertension Social History Tobacco Use Types Packs/Day Years Used Date Smoking Tobacco: Heavy Smoker Comments:Smoking History Pac ks/day: 0.5 Packs Alcohol Use Standard Drinks/Week Comments Yes 0 (1 standard drink = 0.6 oz pur e alcohol) Sex and Gender Information Value Date Recorded Sex Assigned at Not on file Legal Sex Male 2:37 PM TALENT ASSOCIATE Gender Identity Not on file Sexual Orientation Not on file documented as of this encounter Medications at Time of Discharge amLODIPine (NORVASC) 5 mg tablet take 1 tablet by oral route every day 90 3 12/03/2016 03/30/2018 lisinopril (PRINIVIL,ZESTRIL ) 40 mg tablet take 1 tablet by oral route every day 90 3 12/03/2016 06/13/2018 documented as of this encounter Plan of Treatment Not on file documented as of this encounter Procedures Procedure Name Priority Date/Time Associated Diagnosis Comments URINE MICROSCOPY Routine 12/03/2016 3:10 PM TALENT ASSOCIATE URINALYSIS Routine 12/03/2016 3:10 PM TALENT ASSOCIATE SERUM THYROID-STIMULATING HORMONE (TSH) Routine 12/03/2016 3:07 PM TALENT ASSOCIATE SERUM LIPID PANEL Routine 12/03/2016 3:0 7 PM TALENT ASSOCIATE SERUM GLUCOSE Routine 12/03/2016 3:07 PM TALENT ASSOCIATE PLASMA COMPREHENSIVE METABOLIC PANEL Routine 12/03/2016 3:07 PM TALENT ASSOCIATE BLOOD CELL COUNT (CBC) Routine 7 3:07 PM TALENT ASSOCIATE BLOOD CELL MORPHOLOGIC EXAM Routine 12/03/2016 3:07 PM TALENT ASSOCIATE DISCHARGE LABORATORY CUMULATIVE REPORT 12/03/2016 documented in this encounter Results * (ABNORMAL) Urinalysis (12/03/2016 3:10 PM TALENT ASSOCIATE) Color, ur Yellow Yellow CDR HISTOR ICAL RESULTS Clarity, ur Clear Clear CDR HIST ORICAL RESULTS Specific gravity, ur 1.021 1.003 - 1.030 CDR HISTORICAL RESULTS pH, ur 5.0 5.0 - 8.0 CDR HISTOR ICAL RESULTS Protein, ur Negative Trace CDR HIST ORICAL RESULTS Glucose, ur Negative Negative CDR HIST ORICAL RESULTS Ketones, ur Trace(A) Negative CDR HIST ORICAL RESULTS Bilirubin, ur Negative Negative CDR HI STORICAL RESULTS U Blood 1+(A) Negative CDR HISTOR ICAL RESULTS Urobilinogen, quant, ur 2.0(A) <2.0 mg/dl CDR HISTORICAL RESULTS Nitrites, ur Negative Negative CDR HIS TORICAL RESULTS Leukocyte esterase, ur Negative Negative CDR HISTORICAL RESULTS Urine 12/03/2016 3:10 PM TALENT ASSOCIATE us Darius Fernández MD LAB BLOOD ORDERABLES Final Re sult CDR HISTORICAL RESULTS * (ABNORMAL) Urine microscopy (12/03/2016 3:10 PM TALENT ASSOCIATE) RBC, ur 4(H) 0 - 3 /hpf CDR HISTO RICAL RESULTS WBC, ur 0 0 - 5 /hpf CDR HISTO RICAL RESULTS Bacteria, ur Negative Trace CDR HIS TORICAL RESULTS Epithelial cells, renal, ur 0 0 - 0 /hpf CDR HISTORICAL RESULTS Mucus, ur Small /hpf CDR HISTOR ICAL RESULTS Urine 12/03/2016 3:10 PM TALENT ASSOCIATE Darius Fernández MD LAB BLOOD ORDERABLES Final Re sult Performing Organization Address [facility] de Phone Number CDR HISTORICAL RESULTS * Serum thyroid-stimulating hormone (TSH) (12/03/2016 3:07 PM TALENT ASSOCIATE) TSH 1.52 0.30 - 4.20 mcIUnits/m l CDR HISTORICAL RESULTS Comment: Interpretive Data Hyperthyroid: ??<0.1 mcIUnit/mL Hypothyroid: ??>12.0 mcIUnit/mL Current interpretive data was last revised on 00. Serum 12/03/2016 3:07 PM TALENT ASSOCIATE Darius Fernández MD LAB BLOOD ORDERABLES Final Re sult Performing Organization Address [facility] de Phone Number CDR HISTORICAL RESULTS * Serum lipid panel (12/03/2016 3:07 PM TALENT ASSOCIATE) Cholesterol 150 30 - 200 mg/dl CDR HISTORICAL RESULTS Comment: Interpretive Data Desirable: ?<200 mg/dL Borderline high: ??200-239 mg/dL High: ? > or = 240 mg/dL Literature Reference: National Cholesterol Education Program (NCEP) Expert Panel on Detection, Evaluation, and Treatment of High Blood Cholesterol in Adults (Adult Treatment Panel III). ??Circulation 2004; 110:227. Current interpretive data was last revised on 2015. Triglycerides 65 0 - 150 mg/dl CDR HISTORICAL RESULTS Comment: Interpretive Data Desirable: ? < 150 mg/dL Borderline High: ? 150 - 199 mg/dL High: ?200 - 499 mg/dL Very High: ? > or = 499 mg/dL Literature Reference: See Cholesterol Current interpretive data was last revised on 2015. HDL 68 >=40 mg/dl CDR HISTO RICAL RESULTS Comment: Interpretive Data Less than 40 mg/dL - low; A major risk factor for heart disease. Greater than or equal to 60 mg/dL - High; ??considered protective of heart disease. Literature Reference: See Cholesterol Current interpretive data was last revised on 2015. LDL 69 10 - 129 mg/dl CDR HISTORICAL RESULTS Comment: Interpretive Data Optimal: ? < 100 mg/dL Near Optimal: ?100 - 129 mg/dL Borderline High: ?? 130 - 159 mg/dL High: ?160 - 189 mg/dL Very high: ? > or = 190 mg/dL Literature Reference: See Cholesterol Current interpretive data was last revised on 2015. Non-HDL cholesterol, calculated 82 mg/dl CDR HISTORICAL RESULTS Comment: Interpretive Data When triglycerides are >200 mg/dL, non-HDL C is a secondary target of therapy, with a goal 30 mg/dL higher than the identified LDL-C goal. Reference: ??See Cholesterol Reference. Current interpretive data was last revised 2015. Serum 12/03/2016 3:07 PM TALENT ASSOCIATE us Darius Fernández MD LAB BLOOD ORDERABLES Final Re sult CDR HISTORICAL RESULTS * (ABNORMAL) Plasma comprehensive metabolic panel (12/03/2016 3:07 PM TALENT ASSOCIATE) Sodium 145 135 - 145 mmol/L CDR HISTORICAL RESULTS K, pl 4.5 3.3 - 4.9 mmol/L CDR HISTORICAL RESULTS Chloride 109 97 - 110 mmol/L CDR HISTORICAL RESULTS CO2 27 22 - 32 mmol/L CDR HISTORICAL RESULTS A. gap 9 2 - 15 mmol/L CDR HISTORICAL RESULTS BUN 6(L) 8 - 25 mg/dl CDR HISTORICAL RESULTS Creatinine 1.09 0.80 - 1.30 mg/dl CDR HISTORICAL RESULTS Calcium 9.5 8.5 - 10.3 mg/dl CDR HISTORICAL RESULTS Protein, pl 7.3 6.5 - 8.5 g/dl CDR HISTORICAL RESULTS Alb 4.6 3.5 - 5.0 g/dl CDR HISTORICAL RESULTS Bilirubin 0.6 0.1 - 1.2 mg/dl CDR HISTORICAL RESULTS Alk phos 60 40 - 130 Units/L CDR HISTORICAL RESULTS AST 26 10 - 50 Units/L CDR HISTORICAL RESULTS ALT 19 7 - 55 Units/L CDR HISTORICAL RESULTS Plasma 12/03/2016 3:07 PM TALENT ASSOCIATE Darius Fernández MD LAB BLOOD ORDERABLES Final Re [facility] Performing Organization Address [facility] de Phone Number CDR HISTORICAL RESULTS * Serum glucose (12/03/2016 3:07 PM TALENT ASSOCIATE) Glucose 74 70 - 199 mg/dl CDR HISTORICAL RESULTS Serum 12/03/2016 3:07 PM TALENT ASSOCIATE Darius Fernández MD LAB BLOOD ORDERABLES Final Re sult Performing Organization Address [facility] de Phone Number CDR HISTORICAL RESULTS * (ABNORMAL) Blood cell count (CBC) (12/03/2016 3:07 PM TALENT ASSOCIATE) WBC 9.2 3.8 - 9.9 K/cumm CDR HISTORICAL RESULTS RBC 4.08(L) 4.30 - 5.80 M/cumm CDR HISTORICAL RESULTS Hgb 12.9(L) 13.0 - 17.5 g/dl CDR HISTORICAL RESULTS Hct 38.6(L) 38.9 - 50.3 % CDR HISTORICAL RESULTS MCV 94.6 81.3 - 96.4 fl CDR HISTORICAL RESULTS MCH 31.6 27.1 - 33.3 pg CDR HISTORICAL RESULTS MCHC 33.4 32.3 - 35.7 g/dl CDR HISTORICAL RESULTS Rdw 13.6 11.1 - 14.9 % CDR HISTORICAL RESULTS RDW 47.4 35.7 - 48.1 fl CDR HISTORICAL RESULTS Platelets 236 150 - 400 K/cumm CDR HISTORICAL RESULTS MPV 10.0 9.1 - 12.3 fl CDR HISTORICAL RESULTS NRBC 0.0 0.0 - 0.2 % CDR HIST ORICAL RESULTS NRBC, abs 0.00 0.00 - 0.01 K/cumm CDR HISTORICAL RESULTS Blood specimen (specimen) 12/03/2016 3:07 PM TALENT ASSOCIATE Darius Fernández MD LAB BLOOD ORDERABLES Final Re sult CDR HISTORICAL RESULTS * Blood cell morphologic exam (12/03/2016 3:07 PM TALENT ASSOCIATE) Neutrophils 65.8 % CDR HIST ORICAL RESULTS Immature granulocytes 0.2 % CDR HISTORICAL RESULTS Lymphocytes 24.4 % CDR HIST ORICAL RESULTS Monos 7.7 % CDR HISTOR ICAL RESULTS Eosinophils 1.5 % CDR HIST ORICAL RESULTS Basophils 0.4 % CDR HISTOR ICAL RESULTS Neutrophils, abs 6.0 1.7 - 6.5 K/cumm CDR HISTORICAL RESULTS Immature granulocyte, abs 0.0 0.0 - 0.1 K/cumm CDR HISTORICAL RESULTS Lymphocytes, abs 2.2 0.8 - 3.3 K/cumm CDR HISTORICAL RESULTS Monocytes, absolute 0.7 0.2 - 0.8 K/cumm CDR HISTORICAL RESULTS Eosinophils, abs 0.1 0.0 - 0.5 K/cumm CDR HISTORICAL RESULTS Basophils, abs 0.0 0.0 - 0.1 K/cumm CDR HISTORICAL RESULTS Blood specimen (specimen) 12/03/2016 3:07 PM TALENT ASSOCIATE Darius Fernández MD LAB BLOOD ORDERABLES Final Re sult CDR HISTORICAL RESULTS * DISCHARGE LABORATORY CUMULATIVE REPORT (12/03/2016) Narrative 12/03/2016 Ordered by an unspecified provider. Historical Provider LAB BLOOD ORDERABLES Carrie l Result documented in this encounter Visit Diagnoses Diagnosis Essential (primary) hypertension Unspecified essential hypertension documented in this encounter Care Teams Wrecking Mechanic Relationship Specialty Start Date End Date Darius Fernández MD [address] [facility] [address] Zach ESCOBAR [address] [place] [id number] PCP - General 12/03/16 12/29/16 documented as of this encounter
--- OUTSIDE RECORDS SUMMARY | 2024-11-04 22:16 | XMS_ITS | Encounter Summary ---
Author Organization [facility] Healthcare Address [address] [place] [address] Care Team Providers Care Limerock Tower Loader Name Role Phone Teresita Painting MD Primary Care Prov ider Reason for Visit * Reason Comments Sore Throat Withdrawal Encounter Details Date Type Department Care Team (Late Contact Info) Description 12/08/2019 12:19 AM PANEL LAMINATOR - 12/08/2019 1:54 AM PANEL LAMINATOR Emergency [facility] Emergency Department [address] [place] [address] Vivi Falcon MD [address] [facility] [address] [place] [address] Alcohol use (Primary Dx); Sinusitis, unspecified chronicity, unspecified location Discharge Disposition: Discharge to home or self [...] on file Legal Sex Male 2:37 PM PANEL LAMINATOR Gender Identity Not on file Sexual Orientation Not on file documented as of this encounter Last Filed Vital Signs Vital Sign Reading Time Taken Comments Blood Pressure 115/74 12/08/2019 1:30 AM PANEL LAMINATOR Pulse 66 12/08/2019 1:30 AM PANEL LAMINATOR Temperature 36.2 ??C (97.2 ??F) 12/07/2019 10:[address] Respiratory Rate 16 12/08/2019 1:30 AM PANEL LAMINATOR Oxygen Saturation 98% 12/08/2019 1:30 AM PANEL LAMINATOR Inhaled Oxygen Concentration - - Weight 58.1 kg (128 lb) 12/07/2019 10:27 PM PANEL LAMINATOR Height 170.2 cm (5' 7 ) 12/07/2019 10:27 PM PANEL LAMINATOR Body Mass Index 20.05 12/07/2019 10:27 PM PANEL LAMINATOR documented in this encounter Discharge Diagnoses Diagnosis Other problems related to lifestyle - OTHER PROBLEMS RELATED TO LIFESTYLE Chronic sinusitis, unspecified - CHRONIC SINUSITIS, UNSPECIFIED Shortness of breath - SHORTNESS OF BREATH Essential (primary) hypertension - ESSENTIAL (PRIMARY) HYPERTENSION Unspecified essential hypertension Nicotine dependence, cigarettes, uncomplicated - NICOTINE DEPENDENCE, CIGARETTES, UNCOMPLICATED documented in this encounter Discharge Instructions * Attachments The following attachments cannot be sent through Care Everywhere. * Alcohol Withdrawal (Handkerchief Folder) ([place]) documented in this encounter Medications at Time [...] for 3 days 18 capsule 12/08/2019 0 fluticasone (FLONASE) 50 mcg/actuation nasal sprayIndications:S inus congestion Administer 2 sprays into each nostril daily. 16 g 5 09/29/2018 1 documented as of this encounter Ordered Prescriptions Prescription Sig Dispense Quantity Refills Last Filled Start Date End Date chlordiazePOXIDE (LIBRIUM) 25 mg capsuleIndications :Alcohol Withdrawal Syndrome Take 2 capsules (50 mg total) by mouth 3 (three) times a day for 3 days 18 capsule 12/08/2019 0 documented in this encounter Discharge Disposition Disposition Code Departure Means Destination Discharge to home or self care documented in this encounter ED Notes * Vivi Falcon MD - 12/08/2019 1:03 AM CST rufino Dec 08, 2019 CC:I wanted to get a librium taper so I don't withdraw HPI: pt with a hx of alcoholism, alcoholic pancreatitis , He states he last drank at 2 pm. He sometimes hallucinates when he tries to quit so he came to the ed to get librium. + sinus congestion. + cough + smoker + sore throat ROS: there are no constitutional, eyes, ears/nose/mouth/throat, cardiovascular, respiratory, GI, , musculoskeletal, integumentory, neurological , psychiatric, endocrine, hematologic, lymphatic, allergic, immunologic complaints. Past Medical: pt with hx of pancreatitis MEDS: see nurses notes ALL: see nurses notes Family history:dm Social history:smoker Vital signs: reviewed GENERAL: appears well Oropharynx clear SKIN: no rashes or masses HEENT: PERRL, EOMs intact C+S clear NECK: no thyromegaly or masses LYMPH: no supraclavicular or cervical adenopathy CHEST: clear to A+P CARDIAC: no JVD, nl s1, s2 , no murmurs, gallops or rubs BACK: no masses or tenderness ABD: nl bs, no HSmegaly non tender NEURO: alert, oriented, 5/5 strength in extremities, no pronator drift EXT: no clubbing, cyanosis or edema ASSESSMENT/PLAN: Pt not currently in withdrawal, plan to give a librium taper. I have seen and examined the patient on 12/08/2019 . I agree with the findings and plan of care as documented in the resident's note. Vivi Falcon MD 12/08/19 0107 L LAMINATOR * Yariel Perez MD PhD - 12/08/2019 1:01 AM CST HPI Chief Complaint Patient presents with ??? Sore Throat ??? Withdrawal Mr Hill is a 49yo male with PMHx of HTN, alcohol abuse with withdrawal DTs, alcoholic pancreatitis who presents with 2-3 weeks of congestion and desire to stop using alcohol. He has been drinking 8 24oz beers per day for the last month. His last drink was 2pm on 12/07. He reports previous success with librium. He is currently clinically sober. He also descibes 2-3 weeks of nasal congestion with green/yellow mucous. He describes occasional cough 2/2 the sensation of post-nasal drip. He denies fever, chills, chest pain, SOB, abd pain, nausea/vomiting. Home meds: amlodipine, omeprazole PShx: L carpal tunnel All: NKDA SHx: smokes 1/2 ppd for 17yrs, alcohol as above, denies illicits Patient History Patient Active Problem List Diagnosis Date Noted ??? Allergic rhinitis 07/06/2019 ??? Healthcare maintenance 06/13/2018 ??? Anemia 06/13/2018 ??? Hypertension 06/26/2014 Class: Chronic ??? Smoking 09/18/2013 Class: Chronic ??? Vitamin D deficiency 11/28/2012 Class: Chronic ??? Alcohol abuse 11/13/2012 Class: Chronic Past Medical History: Diagnosis Date ??? Hypertension ??? Pancreatitis History reviewed. No pertinent surgical history. Family History Problem Relation Age of Onset ??? Kidney cancer Father Cancer, kidney; ??? Hypertension Mother Hypertension; Social History Tobacco Use ??? Smoking status: Current Every Day Smoker Packs/day: 0.00 Types: Cigarettes ??? Smokeless tobacco: Never Used ??? Tobacco comment: 8 cigs a day Substance Use Topics ??? Alcohol use: Yes Comment: 4 tall boys a day ??? Drug use: Never Social History Patient does not qualify to have social determinant information on file (likely too young). Social History Narrative ??? Not on file Review of Systems Review of Systems Constitutional: Negative for activity change, appetite change, chills and fever. HENT: Positive for congestion, postnasal drip, rhinorrhea and sore throat. Eyes: Negative for discharge and visual disturbance. Respiratory: Positive for cough. Negative for shortness of breath. Cardiovascular: Negative for chest pain and leg swelling. Gastrointestinal: Negative for abdominal distention, abdominal pain, constipation, diarrhea, nauseaand vomiting. Genitourinary: Negative for difficulty urinating and dysuria. Musculoskeletal: Negative for arthralgias and myalgias. Skin: Negative for color change and rash. Neurological: Negative for dizziness, seizures and light-headedness. Hematological: Does not bruise/bleed easily. Psychiatric/Behavioral: Negative for agitation, confusion, hallucinations, self- injury and suicidalideas. All other systems reviewed and are negative. Physical Exam ED Triage Vitals [12/07/197] Temp Pulse Resp BP SpO2 36.2 ??C (97.2 ??F) 86 17 135/76 98 % Temp src Heart Rate Source Patient Position BP Location FiO2 (%) Oral -- -- -- -- Physical Exam Vitals signs and nursing note reviewed. Constitutional: General: He is not in acute distress. Appearance: He is well-developed and normal weight. He is not ill-appearing. HENT: Head: Normocephalic and atraumatic. Nose: No congestion or rhinorrhea. Mouth/Throat: Mouth: Mucous membranes are moist. Pharynx: No oropharyngeal exudate or posterior oropharyngeal erythema. Tonsils: No tonsillar exudate or tonsillar abscesses. Eyes: Extraocular Movements: Right eye: Normal extraocular motion. Left eye: Normal extraocular motion. Conjunctiva/sclera: Conjunctivae normal. Pupils: Pupils are equal, round, and reactive to light. Neck: Musculoskeletal: Normal range of motion and neck supple. Cardiovascular: Rate and Rhythm: Normal rate and regular rhythm. Heart sounds: Normal heart sounds. No murmur. Pulmonary: Effort: Pulmonary effort is normal. Breath sounds: Normal breath sounds. No wheezing or rales. Abdominal: General: There is no distension. Palpations: Abdomen is soft. Tenderness: There is no tenderness. Lymphadenopathy: Cervical: No cervical adenopathy. Skin: General: Skin is warm and dry. Neurological: General: No focal deficit present. Mental Status: He is alert and oriented to person, place, and time. Psychiatric: Mood and Affect: Mood normal. Behavior: Behavior normal. MDM MDM:49yo male with history of alcohol abuse presenting primarily to quit and prevent withdrawal. Has hx of DTs. He is clinically sober. Last drink 2pm on 12/07. Has been drinking 8 24oz beers per day. Mgmt: Will provide librium 50 TID for 3 days to start in AM Dispo: discharge Reviewed previous records: From clinic visits Attending Summary of Care ED Course as of Dec 08 720 Time: 12/08 111 Comment: Clinically sober, will discharge with script for librium and recommendation to follow up with PCP if congestion persists By: Yariel Perez MD PhD Alcohol use Sinusitis, unspecified chronicity, unspecified location Yariel Perez MD PhD Resident 12/08/19720 Cosigned by Vivi Falcon MD at 12/11/2019 6:07 AM PANEL LAMINATOR L LAMINATOR L LAMINATOR * Kishore Tran RN - 12/08/2019 12:19 AM CST Bed: ED1-10 Expected date: Expected time: Means of arrival: On Foot Comments: Kishore Tran RN 12/08/19 0019 L LAMINATOR * Kim Romero RN - 12/07/2019 10:27 PM CST Patient withdrawal from alcohol, tall boy of beers for about a month now, states he sometimes goes through DT's, last drink was 1400. Calm and cooperative. Sore throat for about three weeks now, productive cough. Denies sick contacts. Back of throat slightly reddened, no swollen lymph nodes. +nightsweats. L LAMINATOR documented in this encounter Plan of Treatment [...] Procedure Name Priority Date/Time Associated Diagnosis Comments INFLUENZA A/B AND RSV PCR STAT 12/08/2019 12:28 AM PANEL LAMINATOR XR CHEST PA LATERAL 2 VIEWS ED 12/07/2019 11:43 PM PANEL LAMINATOR documented in this encounter Results * Influenza A/B and RSV PCR Nasopharyngeal (12/08/2019 12:28 AM PANEL LAMINATOR) Influenza A RNA Not Detected Not Detected [facility] Influenza B RNA Not Detected Not Detected [facility] RSV RNA Not Detected Not Detected [facility] Comment: Interpretive Data Testing performed by [facility] ([phone]). This test is performed using the [employer] Xpert Flu/RSV Assay. ??This is a multiplex, real-time reverse transcriptase PCR assay that detects influenza A, influenza B,and respiratory syncytial virus RNA. ??This assay has been cleared by the US Food and Drug Administration, and its performance characteristics have been verified by the [facility]. Interpretive Data last revised 2019 Nasopharyngeal 12/08/2019 12 :28 AM PANEL LAMINATOR 12/08/2019 12:37 AM PANEL LAMINATOR Narrative [facility] - 12/08/2019 1:41 AM PANEL LAMINATOR THE [facility] COLLECTION LOCATION IS Jabari Gandara MD LAB MICROBIOLOGY - GENERA L ORDERABLES Final Result [facility] [place] [address] * XR Chest Pa Lateral 2 Vw (12/07/2019 11:43 PM PANEL LAMINATOR) Anatomical Region Laterality Modality Body, Chest N/A Computed Radiogr aphy 12/08/2019 12:0 2 AM PANEL LAMINATOR Impressions 12/08/2019 9:03 AM PANEL LAMINATOR Comparison is made to prior radiograph 01/14/2015. ??The lungs are clear without pneumothorax or pleural effusion. ??The cardiomediastinal silhouette is within normal limits. Dictated by: Pedro Gallagher M.D. Ph.D. The radiology attending physician has personally reviewed this study, and had reviewed and/or edited this written report and agrees with it. Electronically signed by: Shilo Gonzalez M.D. Narrative 12/08/2019 9:03 AM PANEL LAMINATOR EXAMINATION: XR CHEST PA LATERAL 2 VIEWS HISTORY: 49-year-old man with shortness of breath. ??The patient drinks multiple tall boys. Procedure Note Shilo Gonzalez MD - 12/08/2019 EXAMINATION: XR CHEST PA LATERAL 2 VIEWS HISTORY: 49-year-old man with shortness of breath. The patient drinks multiple tall boys. IMPRESSION: Comparison is made to prior radiograph 01/14/2015. The lungs are clear without pneumothorax or pleural effusion. The cardiomediastinal silhouette is within normal limits. Dictated by: Pedro Gallagher M.D. Ph.D. The radiology attending physician has personally reviewed this study, and had reviewed and/or edited this written report and agrees with it. Electronically signed by: Shilo Gonzalez M.D. Vivi Falcon MD IMG XR PROCEDURES Final Resu lt documented in this encounter Visit Diagnoses Diagnosis Alcohol use- Primary Other problems related to lifestyle Sinusitis, unspecified chronicity, unspecified location documented in this encounter Orders Nursing Count Last Ordered Date First Orde red Date NURSING COMMUNICATION 1 12/07/2019 documented in this encounter Care Teams [place]imerock Tower Loader Relationship Specialty Start Date End Date Teresita Painting MD PCP - General 10/25/19 04/17/21 documented as of this encounter
--- OUTSIDE RECORDS SUMMARY | 2024-11-04 22:16 | XMS_ITS | Encounter Summary ---
Author Organization [facility] Healthcare Address [address] [place] [address] Care Team Providers Care Claims Consultant Name Role Phone Teresita Painting MD Primary Care Prov ider Reason for Visit * Reason Comments Follow-up Encounter Details Date Type Department Care Team (Late st Contact Info) Description 07/06/2019 2:15 PM CDT Office Visit [facility] Primary [facility] Medicine Clinic [address] [facility] [address] [place], [place] [id number] Christiano Heller MD [address] [facility] [address] [place] [address] Teresita Painting MD [address] [facility] [address] [place] [address] Essential hypertension (Primary Dx); Vitamin D deficiency; Seasonal allergic rhinitis, unspecified trigger; Healthcare maintenance Discharge Disposition: Discharge to home or self care Social History Tobacco Use Types Packs/Day Years Used Date Smoking Tobacco: Every Day Cigarettes Smokeless Tobacco: Never Alcohol Use Standard Drinks/Week Comments Yes 0 (1 standard drink = 0.6 oz pur e alcohol) occas Sex and Gender Information Value Date Recorded Sex Assigned at Not on file 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 Gender Identity Not on file Sexual Orientation Not on file documented as of this encounter Last Filed Vital Signs Vital Sign Reading Time Taken Comments Blood Pressure 122/90 07/06/2019 2:15 PM CDT Pulse 106 07/06/2019 2:15 PM CDT Temperature 36.8 ??C (98.2 ??F) 07/06/2019 2:15 PM CD T Respiratory Rate 18 07/06/2019 2:15 PM CDT Oxygen Saturation 100% 07/06/2019 2:15 PM CDT Inhaled Oxygen Concentration - - Weight 49.2 kg (108 lb 6.4 oz) 07/06/2019 2:15 P M CDT Height 167.6 cm (5' 6 ) 07/06/2019 2:15 PM CDT Body Mass Index 17.5 07/06/2019 2:15 PM CDT documented in this encounter Patient Instructions * Patient Instructions* Teresita Painting MD - 07/06/2019 2:15 PM CDT For allergies- zyrtec everyday and nasal spray. Clean carpets every 2 weeks + sheets and curtains. Get labs drawn today and I will call you with abnormal results. Schedule colonoscopy when you can documented in this encounter Ordered Prescriptions Prescription Sig Dispense Quantity Refills Last Filled Start Date End Date cetirizine (ZyrTEC) 10 mg tablet Take 1 tablet (10 mg total) by mouth daily as needed for allergies 30 tablet 11 07/06/2019 0 documented in this encounter Discharge Disposition Disposition Code Departure Means Destination Discharge to home or self care documented in this encounter Progress Notes * Teresita Painting MD - 07/06/2019 2:15 PM CDT Primary Care Medicine Clinic Office Visit Note Patient Name: Yariel Hill : 1970 Date: 07/06/2019 PCP: Teresita Painting MD Chief Complaint: follow up HPI: Yariel Hill??is a 48 y.o.??male??with hypertension, currently smoking, h/o alcoholic pancreatitis and ETOH use disorder who presents follow up. No acute complaints today. Last seen in 08/2018. During that visit, he was having sinus pressure which has since resolved. Is still doing his usual binge drinking every couple of months. His blood pressure was also high as he was not taking his medications. Since then, he's had an ear infection which resolved with drops. His mother was also ill and in thehospital/rehab for several months this year. He was doing a lot of her care. Smoking less than 10 cigarettes/day. Current Outpatient Medications Medication Sig Dispense Refill ??? amLODIPine (NORVASC) 5 mg tablet Take 1 tablet (5 mg total) by mouth daily. 90 tablet 3 ??? fluticasone (FLONASE) 50 mcg/actuation nasal spray Administer 2 sprays into each nostril daily.16 g 5 No current facility-administered medications for this visit. Social History Socioeconomic History ??? Marital status: Single Spouse name: None ??? Number of children: None ??? Years of education: None ??? Highest education level: None Occupational History ??? None Social Needs ??? Financial resource strain: None ??? Food insecurity: Worry: None Inability: None ??? Transportation needs: Medical: None Non-medical: None Tobacco Use ??? Smoking status: Current Every Day Smoker Packs/day: 0.50 Types: Cigarettes ??? Smokeless tobacco: Never Used Substance and Sexual Activity ??? Alcohol use: Yes Comment: occas ??? Drug use: Never ??? Sexual activity: Not Currently Lifestyle ??? Physical activity: Days per week: None Minutes per session: None ??? Stress: None Relationships ??? Social connections: Talks on phone: None Gets together: None Attends mu-ism service: None Active member of club or organization: None Attends meetings of clubs or organizations: None Relationship status: None ??? Intimate partner violence: Fear of current or ex partner: None Emotionally abused: None Physically abused: None Forced sexual activity: None Other Topics Concern ??? None Social History Narrative ??? None Family History Problem Relation Age of Onset ??? Kidney cancer Father Cancer, kidney; ??? Hypertension Mother Hypertension; Review of Systems All other systems reviewed and are negative. Vitals: 07/06/19 1415 BP: 122/90 BP Location: Left arm Patient Position: Sitting Pulse: 106 Resp: 18 Temp: 36.8 ??C (98.2 ??F) TempSrc: Oral SpO2: 100% Weight: 49.2 kg (108 lb 6.4 oz) Height: 167.6 cm (5' 6 ) Physical Exam Constitutional: He is oriented to person, place, and time. He appears well- developed and well-nourished. HENT: Head: Normocephalic and atraumatic. Eyes: Conjunctivae and EOM are normal. Neck: Neck supple. Cardiovascular: Normal rate, regular rhythm and normal heart sounds. Pulmonary/Chest: Effort normal and breath sounds normal. No respiratory distress. He has no wheezes. Abdominal: Soft. He exhibits no distension. There is no tenderness. Musculoskeletal: He exhibits no edema or deformity. Neurological: He is alert and oriented to person, place, and time. Skin: Skin is warm and dry. No rash noted. No pallor. Psychiatric: He has a normal mood and affect. His behavior is normal. Nursing note and vitals reviewed. Assessment and Plan: Problem List Respiratory Allergic rhinitis Current Assessment & Plan Having seasonal allergy symptoms, worse in the fall. Likely allergic to mold/ragweed. -Start zyrtec -Continue flonase -Discussed nasal rinsing, would like to defer at this time -Discussed environmental control throughout his home Circulatory Hypertension - Primary (Chronic) Overview Current Assessment & Plan Well controlled on amlodipine 5mg daily Digestive Vitamin D deficiency (Chronic) Current Assessment & Plan Has been low in the past, however he has been supplementing. -Recheck today (per patient request) Relevant Orders Vitamin D 25 hydroxy Other Healthcare maintenance Overview General - A1c [...] Influenza (annually): 09/29/2018 - Td/Tdap (q10 years): 2012 - PPSV23 (age >65, immunocomp, DM, CKD, heart dz, lung dz, liver dz, EtOH, asplenia): - PCV13 (age >65, immunocomp, CKD, asplenia): Current Assessment & Plan Requesting STI testing today (HIV, RPR, GC/CT) Is working on scheduling colonoscopy Lipid panel Recommend flu shot in July Relevant Orders Lipid panel N. gonorrhoeae/C. trachomatis Amplification- Genital, Urine HIV 1/2 Antibody plus p24 Antigen RPR Direct Scheduling Case Request: COLONOSCOPY CBC with auto differential (Completed) Return in about 6 months (around 01/04/2020). Reminders for Next Visit: colonoscopy results?, review labs Teresita Painting MD Resident Physician Department of Medicine [facility] [employer] [facility] [employer] [facility] Primary Care Medicine Clinic [facility] [address] [place] [address] [address], [address] [place] [address] Cosigned by Flory De La O MD at 07/06/2019 4:47 PM CDT Associated attestation - Flory De La O MD - 07/06/2019 4:47 PM CDT I have personally reviewed with Dr. Painting the history, physical examination, laboratory studiesand proposed management for Yariel Hill. Together we formulated a clinical diagnosis for robertoproblem and developed a plan for therapy during or immediately after his clinic visit. I agree withthe recommended plan of care. documented in this encounter Miscellaneous Notes * Assessment & Plan Note - Teresita Painting MD - 07/06/2019 2:56 PM CDTAssociated Problem(s): Annual physical exam Requesting STI testing today (HIV, RPR, GC/CT) Is working on scheduling colonoscopy Lipid panel Recommend flu shot in July * Assessment & Plan Note - Teresita Painting MD - 07/06/2019 2:51 PM CDTAssociated Problem(s): Allergic rhinitis Having seasonal allergy symptoms, worse in the fall. Likely allergic to mold/ragweed. -Start zyrtec -Continue flonase -Discussed nasal rinsing, would like to defer at this time -Discussed environmental control throughout his home * Assessment & Plan Note - Teresita Painting MD - 07/06/2019 2:50 PM CDTAssociated Problem(s): Hypertension Well controlled on amlodipine 5mg daily * Assessment & Plan Note - Teresita Painting MD - 07/06/2019 2:46 PM CDTAssociated Problem(s): Vitamin D deficiency (Resolved 04/23/2021) Has been low in the past, however he has been supplementing. -Recheck today (per patient request) documented in this encounter Plan of Treatment [...] this encounter Results * N. gonorrhoeae/C. trachomatis Amplification- Genital, Urine (07/06/2019 5:02 PM CDT) Pathologist [facility] C. trachomatis Not Detected Not Detected [facility] N. gonorrhoeae Not Detected Not Detected [facility] Comment: Interpretive Data Testing performed by the [facility]. This assay detects Chlamydia trachomatis and Neisseria gonorrhoeae by nucleic acid amplification testing (NAAT). This test is approved by the [place] Food and Drug Administration and the performance characteristics have been verified by the laboratory. The performance characteristics of this test have not been evaluated in individuals less than 14 years of age. Current Interpretive Data was last revised on 2018. Source- Genital, Urine Urine [facility] Urine 07/06/2019 5:02 PM CDT 07/06/2019 6:51 PM CDT us Christiano Heller MD LAB MICROBIOLOGY - GENERA L ORDERABLES Final Result [facility] [address] [place] [address] * CBC with auto differential (07/06/2019 3:47 PM CDT) WBC 8.2 3.8 - 9.9 K/cumm [facility] Hgb 15.3 13.0 - 17.5 g/dL [facility] Hct 44.3 38.9 - 50.3 % [facility] Plt 236 150 - 400 K/cumm [facility] MPV 9.6 9.1 - 12.3 fL [facility] RBC 4.82 4.30 - 5.80 M/cumm [facility] MCV 91.9 81.3 - 96.4 fL [facility] MCH 31.7 27.1 - 33.3 pg [facility] MCHC 34.5 32.3 - 35.7 g/dL [facility] RDW CV 12.0 11.1 - 14.9 % [facility] RDW SD 40.3 35.7 - 48.1 fL [facility] NRBC abs 0.00 0.00 - 0.01 K/cumm [facility] Blood specimen (specimen) 07/06/2019 3:47 PM CDT 07/06/2019 4:05 PM CDT Christiano Heller MD LAB BLOOD ORDERABLES Carrie l Result Performing Organization Address City/[facility]/ZIP Co de Phone Number [address] [phone] * RPR (07/06/2019 3:47 PM CDT) RPR Nonreactive Nonreactive [facility] Blood specimen (specimen) 07/06/2019 3:47 PM CDT 07/06/2019 4:05 PM CDT Christiano Heller MD LAB MICROBIOLOGY - GENERA L ORDERABLES Final Result Performing Organization Address [facility]/ZIP Co de Phone Number [address] [address] * HIV 1/2 Antibody plus p24 Antigen (07/06/2019 3:47 PM CDT) Pathologist [facility] HIV 1/2 ab + p24 ag Nonreactive Nonreactive [facility] Comment: Nonreactive for HIV-1 antigen and HIV-1/HIV-2 antibodies. No laboratory evidence of HIV infection. If acute HIV infection is suspected, consider testing for HIV-1 RNA. Blood specimen (specimen) 07/06/2019 3:47 PM CDT 07/06/2019 4:05 PM CDT Christiano Heller MD LAB MICROBIOLOGY - GENERA L ORDERABLES Final Result Performing Organization Address [facility] de Phone Number [address] [address] * (ABNORMAL) Vitamin D 25 hydroxy (07/06/2019 3:47 PM CDT) Vitamin D 25-OH 16(L) 30 - 80 ng/mL [facility] Blood specimen (specimen) 07/06/2019 3:47 PM CDT 07/06/2019 4:05 PM CDT Christiano Heller MD LAB BLOOD ORDERABLES Carrie l Result Performing Organization Address [facility] Phone Number [address] [phone] * (ABNORMAL) Lipid panel (07/06/2019 3:47 PM CDT) Cholesterol 204(H) 30 - 199 mg/dL [facility] Comment: Interpretive Data Ages < [...] Data was last revised on 2018. Triglycerides 101 <=149 mg/dL [facility] Comment: Interpretive Data Ages < [...] Data was last revised on 2018. HDL 69 >=40 mg/dL [facility] Comment: Interpretive Data Ages < [...] was last revised on 2018. LDL, calculated 115 <=129 mg/dL [facility] Comment: Interpretive Data Ages < [...] was last revised on 2018. Non-HDL Cholesterol 136 mg/dL [facility] Comment: Interpretive Data Ages [...] was last revised on 2018. Chol/HDL ratio 3 [facility] Blood specimen (specimen) 07/06/2019 3:47 PM CDT 07/06/2019 4:05 PM CDT us Christiano Heller MD LAB BLOOD ORDERABLES Carrie khanna Result [facility] [address] [place] [address] documented in this encounter Visit Diagnoses Diagnosis Essential hypertension- Primary Unspecified essential hypertension Vitamin D deficiency Seasonal allergic rhinitis, unspecified trigger Healthcare maintenance documented in this encounter Orders Case Request Count Last Ordered Date First Orde red Date GI DIRECT ACCESS CASE REQUEST 1 07/06/2019 documented in this encounter Care Teams Claims Consultant Relationship Specialty Start Date End Date Teresita Painting MD PCP - General Obstetrics and Gynecology 07/26/1807/02 documented as of this encounter
--- OUTSIDE RECORDS SUMMARY | 2024-11-04 22:16 | XMS_ITS | Encounter Summary ---
Author Organization [facility] Healthcare Address [address] [place] [address] Care Team Providers Care Denture Technician Name Role Phone Hung Gray MD Primary Care Provider [phone] Encounter Details Date Type Department Care Team (Late st Contact Info) Description 06/17/2017 3:38 PM CDT - 06/17/2017 11:59 PM T Hospital [facility] [phone] Hung Gray MD [facility] [address] S[address]ano [address] [phone] Left hand pain Discharge Disposition: Discharge to home or self care Social History Tobacco Use Types Packs/Day Years Used Date Smoking Tobacco: Every Day Cigarettes Smokeless Tobacco: Never Alcohol Use Standard Drinks/Week Comments Yes 0 (1 standard drink = 0.6 oz pur e alcohol) Sex and Gender Information Value Date Recorded Sex Assigned at Not on file 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 Gender Identity Not on file Sexual Orientation Not on file documented as of this encounter Medications at Time of Discharge amLODIPine (NORVASC) 5 mg tablet take 1 tablet by oral route every day 90 3 12/03/2016 03/30/2018 celecoxib (CeleBREX) 200 mg capsule take 1 capsule by oral route every day as needed 30 0 12/30/2016 06/13/2018 lisinopril (PRINIVIL,ZESTRIL ) 40 mg tablet take 1 tablet by oral route every day 90 3 12/03/2016 06/13/2018 nortriptyline (PAMELOR) 10 mg capsule take 1 capsule by oral route every day 30 1 12/30/2016 06/13/2018 omeprazole (PriLOSEC) 10 mg capsule Take 10 mg by mouth daily. 06/13/2018 predniSONE (DELTASONE) 10 mg tablet 06/06/2017 06/13/2018 sulfamethoxazole- trimethoprim (BACTRIM,SEPTRA) 800-160 mg per tablet 06/10/2017 06/13/2018 documented as of this encounter Discharge Disposition Disposition Code Departure Means Destination Discharge to home or self care documented in this encounter Plan of Treatment Not on file documented as of this encounter Procedures Procedure Name Priority Date/Time Associated Diagnosis Comments XR HAND 3+ VW Schedule Routine, Read Routine (OP Routine) 06/17/2017 8:49 PM CDT documented in this encounter Results * XR Hand 3+ VW (06/17/2017 8:49 PM CDT) Anatomical Region Laterality Modality N/A Radiographic Vashti ging 06/17/2017 8:49 PM CDT Narrative 06/17/2017 8:49 PM CDT HUNG VERNON M.D. TANG DYSON M.D. FINAL REPORT The radiology attending physician has personally reviewed this study, and has reviewed and/or edited this written report and agrees with it. ACC# ??Date Time ??Exam [id number] Jun 17, 2017 15:49:00 [id number] Hand minimum 3 views L EXAMINATION: ?Left hand and 3 views. HISTORY: ??Left hand pain FINDINGS: ?? Three views of the left hand are performed without prior comparisons. Alignment and joint spaces are normal. There is no fracture or bone abnormality. The soft tissues appear normal. ?? IMPRESSION: Normal examination of the left hand. ?? Requested By: HUNG GRAY ??Jenn ? Dictated By: ?? TANG DYSON M.D. ??on Jun 17 2017 ??4:12P This document has been electronically signed by: HUNG VERNON M.D. on Jun 17 2017 ??4:51P [id number] [facility] Order ID: [id number] Procedure Note Miscellaneous, Not In File / Provider, MD Rhett - 06/17/2017 HUNG VERNON M.D. TANG DYSON M.D. FINAL REPORT The radiology attending physician has personally reviewed this study, and has reviewed and/or edited this written report and agrees with it. ACC# Date Time Exam [id number] Jun 17, 2017 15:49:00 [id number] Hand minimum 3 views L EXAMINATION: Left hand and 3 views. HISTORY: Left hand pain FINDINGS: Three views of the left hand are performed without prior comparisons. Alignment and joint spaces are normal. There is no fracture or bone abnormality. The soft tissues appear normal. IMPRESSION: Normal examination of the left hand. Requested By: HUNG GRAY M.D. Dictated By: TANG DYSON M.D. on Jun 17 2017 4:12P This document has been electronically signed by: HUNG VERNON M.D. on Jun 17 2017 4:51P [id number] [facility] Order ID: [id number] us Not In File Miscellaneous IMG XR PROCEDURES Carrie l Result documented in this encounter Visit Diagnoses Diagnosis Left hand pain Pain in soft tissues of limb documented in this encounter Care Teams Denture Technician Relationship Specialty Start Date End Date Hung Gray MD [facility] [address] Zach ESCOBAR [address] [place] [id number] PCP - General 01/28/17 06/08/18 documented as of this encounter
--- OUTSIDE RECORDS SUMMARY | 2024-11-04 22:16 | XMS_ITS | Encounter Summary ---
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 Name Role Phone Darius Fernández MD Primary Care Provider [phone] Reason for Visit * Reason Onset Date Comments Pradeep no transition of care appt 06/15/2017 Encounter Details Date Type Department Care Team (Late st Contact Info) Description 06/15/2017 Telephone [facility] at the [address] [place] [address] Darius Fernández MD [address] [place] [address] [address] [place], [place] [phone] Pradeep no transition of care appt Social History Tobacco Use Types Packs/Day Years Used Date Smoking Tobacco: Heavy Smoker Comments:Smoking History Pac ks/day: 0.5 Packs Alcohol Use Standard Drinks/Week Comments Yes 0 (1 standard drink = 0.6 oz pur e alcohol) Sex and Gender Information Value Date Recorded Sex Assigned at Not on file 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 * Telephone Encounter - Shannon Stone - 06/15/2017 3:19 PM CDT Patient calling in stating he was in the ED at [facility] on 06/10/17 for Insect bite to theleft hand and was to contact his primary care for a transition of care appt with in 5 days /no appointments available with in the time frame please advise and to contact the patient at [phone] documented in this encounter Plan of Treatment Not on file documented as of this encounter Visit Diagnoses Not on filedocumented in this encounter Care Teams Level Glass Forming Machine Operator Relationship Specialty Start Date End Date Darius Fernández MD [facility] [address] Zach ESCOBAR [address] [place] [phone] PCP - General 01/28/17 06/08/18 documented as of this encounter
--- OUTSIDE RECORDS SUMMARY | 2024-11-04 22:16 | XMS_ITS | Encounter Summary ---
Author Organization [facility] Healthcare Address [address] [place] [id number] Care Team Providers Care Automotive Sales Manager Name Role Phone Teresita Painting MD Primary Care Prov ider Teresita Painting MD Primary Care Prov ider Reason for Visit * Reason Comments PREP 05/14/2020 Encounter Details Date Type Department Care Team (Late st Contact Info) Description 07/10/2019 Telephone [facility] Specialty Services [address] [place] [id number] Azul Zhang RN PREP 05/14/2020 Social History Tobacco Use Types Packs/Day Years Used Date Smoking Tobacco: Every Day Cigarettes Smokeless Tobacco: Never Alcohol Use Standard Drinks/Week Comments Yes 0 (1 standard drink = 0.6 oz pur e alcohol) occas Sex and Gender Information Value Date Recorded Sex Assigned at Not on file 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 * Addendum Note - Azul Zhang RN - 05/01/2020 7:54 AM CDTAddended by: AZUL ZHANG on: 05/01/2020 07:54 AM Modules accepted: Orders * Telephone Encounter - Azul Zhang RN - 05/01/2020 7:46 AM CDT Prepared and mailed Colonoscopy instructions. Nulytely 2 liters at 6 PM on 05/13/2020 and Nulytely 2liters at 0300 AM on 05/14/2020. Start clear liquids AM on 05/13/2020 and continue clear liquids through 0800 AM on 05/14/2020, then NPO till after procedure. Covid Testing on 2020, [facility]. Covid order in [facility]. * Telephone Encounter - Azul Zhang RN - 04/30/2020 8:37 AM CDT Reviewed. * Telephone Encounter - Eloina Fofana - 04/29/2020 1:35 PM CDT Order routed to Azul for re-review * Telephone Encounter - Azul Zhang RN - 07/10/2019 2:27 PM CDT Please contact the patient regarding scheduling their upcoming procedure: ??? Sedation Scoring Model: Patient characteristics Score Characteristic Weight Patient requesting MAC? Only if patient brings this up after coversation Patient requesting MAC? 5 Needing to be scheduled with an interventionalist Needing to be scheduled with an interventionalist5 Anti-psychotic Anti-psychotic 5 BMI >45 BMI >45 5 Heart failure Heart failure 5 Oxygen requirement at rest Oxygen requirement at rest 5 Prior failed CS Prior failed CS 5 HIV medications HIV medications 5 Active alcohol use (>4 drinks per day in women, >5 drinks per day in men) Active alcohol use (>4 drinks per day in women, >5 drinks per day in men) 4 BMI >35 BMI >35 4 Arrythmia (controlled) Arrythmia (controlled) 3 SPENSER SPENSER 3 Active alcohol use (<4 drinks per day in women, <5 drinks per day in men) Active alcohol use (<4 drinks per day in women, <5 drinks per day in men) 3 Anti-viral use Anti-viral use 2 Anxiolytic (>4 days/week) Anxiolytic 2 Opioid use (>4 days/week) Opioid use 2 Healthy or no medications 1 Healthy or no medications 1 Total Score 1 Score <5 Conscious Sedation Score =5 Monitored Anesthesia Care Please notify patient of scheduling with conscious sedation or monitored anesthesia care Concious sedation: Based on your history, you will be scheduled with sedation provided by the red lead burner. This is called concious sedation and is very commonly used. You will be heavily sedated but will be able to communicate. You should not experience discomfort but, in the rare event that you do, more medications can be given. If patient requests to be scheduled with MAC: refer to scoring system, if score less than 5: due to limited availability of those slots, we reserve MAC for those that are higher risk from a sedation standpoint (including those with heart failure, severe COPD, or undergoing complex procedures). If score greater than 5, schedule with MAC If patient still requests to be done with MAC, please make a note of this and schedule with MAC Monitored Anesthesia Care: Based on your history, you will be scheduled with anesthesia provided byan anesthesiologist. ?? Referring provider: Dr. Teresita Painting ??? Anesthesia type Conscious Sedation ??? BMI at the time of review 17.50 ??? Location limitations:no donell ? ? Procedure & diagnosis:Screening colonoscopy ??? Is the patient a diabetic:no ??? Bowel prep choice:nulytely ??? Language preference: bulgarian Is an hourly sign language interpreter needed: no ??? Special Instructions (i.e. needs to be scheduled with an interventionalist) no Thank you so much! Azul Zhang RN documented in this encounter Plan of Treatment [...] on filedocumented in this encounter Care Teams Automotive Sales Manager Relationship Specialty Start Date End Date Teresita Painting MD PCP - General Obstetrics and Gynecology 07/26/18 904/18 Teresita Painting MD PCP - General 10/25/19 04/17/21 documented as of this encounter
--- OUTSIDE RECORDS SUMMARY | 2024-11-04 22:16 | XMS_ITS | Encounter Summary ---
Author Organization [facility] Healthcare Address [address] [place] [address] Care Team Providers Care Dobby Looms Pegger Name Role Phone Teresita Painting MD Primary Care Prov ider Darius Fernández MD Primary Care Provider [phone] Reason for Visit * Reason Comments Preventative Care Hypertension monitors BP at home, did not take medication yet . Sinus Problem needs refill on Rhin ocort Encounter Details Date Type Department Care Team (Late st Contact Info) Description 06/13/2018 2:15 PM CDT Office Visit [facility] [address] [facility] [address] [place] [address] Christiano Heller MD [address] [place] [address] Teresita Painting MD [address] [facility] [facility] 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 Gender Identity Not on file Sexual Orientation Not on file documented as of this encounter Last Filed Vital Signs Vital Sign Reading Time Taken Comments Blood Pressure 150/80 06/13/2018 2:21 PM CDT Pulse 69 06/13/2018 2:21 PM CDT Temperature 36.7 ??C (98.1 ??F) 06/13/2018 2:21 PM CD T Respiratory Rate 16 06/13/2018 2:21 PM CDT non-labored Oxygen Saturation 100% 06/13/2018 2:21 PM CDT room air Inhaled Oxygen Concentration - - Weight 49 kg (108 lb) 06/13/2018 2:21 PM CDT Height - - Body Mass Index 17.17 06/17/2017 2:59 PM CDT documented in this encounter Patient Instructions * Patient Instructions* Teresita Painting MD - 06/13/2018 2:15 PM CDT Images from the original note were not included. Patient Education Homework: 1. Push up challenge: 40/night starting tonight, increase as tolerated. 2. 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 Tobacco is dangerous to you and to nonsmokers who breathe your secondhand smoke. Even if you are a light smoker or a social smoker, you have an increased risk for cancer, heartdisease, and lung disease. If you are or have diabetes, smoking increases your risk for complications. Benefits to your health if you stop smoking: Do not use e-cigarettes or smokeless tobacco in place of cigarettes or to help you quit. They still contain nicotine. ?? You reduce your risk for cancers of the lung, mouth, throat, kidney, bladder, pancreas, stomach,and cervix. If you already have cancer, you increase the benefits of chemotherapy. You also reduce your risk for cancer returning or a second cancer from developing. ?? You reduce your risk for heart disease, blood clots, heart attack, and stroke. ?? You reduce your risk for lung infections, and diseases such as pneumonia, asthma, chronic bronchitis, and emphysema. ?? Your circulation improves. More oxygen can be delivered to your body. If you have diabetes, you lower your risk for complications, such as kidney, artery, and eye diseases. You also lower your risk for nerve damage. Nerve damage can lead to amputations, poor vision, and blindness. ?? You improve your body's ability to heal and to fight infections. Benefits to the health of others if you stop smoking: ?? You lower the risks for lung cancer and heart disease in nonsmoking adults. ?? If you are , you lower the risk for miscarriage, early delivery, low weight, and stillbirth. You also lower your baby's risk for SIDS, obesity, developmental delay, and neurobehavioral problems, such as ADHD. ?? If you have children, you lower their risk for ear infections, colds, pneumonia, bronchitis, andasthma. For more information and support to stop smoking: Do not use e-cigarettes or smokeless tobacco in place of cigarettes or to help you quit. They still contain nicotine. ?? [employer] Phone: Web Address: www.eMazeMe Follow up with your healthcare provider as directed: Write down your questions so you remember to ask them during your visits. ?? 2016 [employer]. Information is for End User's use only and may not be sold, redistributed or otherwise used for commercial purposes. All illustrations and images included in CareNotes?? are the copyrighted property of [employer]. or [employer]. The above information is an paid search analyst only. It is not intended as medical advice for individual conditions or treatments. Talk to your doctor, nurse or pharmacist before following any medical regimen to see if it is safe and effective for you. Pt received their discharge instructions. Patient acknowledges that they understand the instructions presented today. Pt was discharged with a steady gait.Pt was discharged with a steady gait. documented in this encounter Ordered Prescriptions Prescription Sig Dispense Quantity Refills Last Filled Start Date End Date nicotine (NICODERM CQ) [address] 1 patch on the skin daily. 28 patch 1 06/13/2018 09/29/2018 documented in this encounter Discharge Disposition Disposition Code Departure Means Destination Discharge to home or self care documented in this encounter Progress Notes * Teresita Painting MD - 06/13/2018 2:15 PM CDT Patient Name: Yariel Hill : 1970 Today's Date: 06/13/2018 PCP: Teresita Painting MD HPI Yariel Hill is a 48 y.o. male with hypertension, currently smoking, h/o alcoholic pancreatitis and ETOH use disorder who presents to establish care and inquire about smoking cessation. Mr. Hill reports that he has been trying to quit smoking. Was smoking 1/2 PPD for 20 years and has been able to cut back to 3/day mostly through behavioral modifications. He has tried gum in the past but it gave him GERD. He has also tried patches and although they were expensive, he would like to try them again. Is apprehensive about chantix or Wellbutrin. He is currently on lisinopril and amlodipine for hypertension but missed his medications yesterday.He takes his blood pressure at home and often gets readings in the 100s/60s range. During these times he feels dizzy and worries that he is on too much medication. Denies sob, cp, abdominal pain, diarrhea, weight loss, night sweats. Review of Systems Review of Systems All other systems reviewed and are negative. No past medical history on file. Social History Social History ??? Marital status: [...] kidney; ??? Hypertension Mother Hypertension; Vitals Vitals: 06/13/18 1421 BP: 150/80 BP Location: Right arm Patient Position: Sitting Pulse: 69 Resp: 16 Comment: non-labored Temp: 36.7 ??C (98.1 ??F) TempSrc: Oral SpO2: 100% Comment: room air Weight: 49 kg (108 lb) Body mass index is 17.17 kg/m??. Physical Exam Assessment / Plan Yariel Hill is a 48 y.o. male with hypertension, currently smoking, h/o alcoholic pancreatitis and ETOH use disorder who presents to establish care and inquire about smoking cessation. #Smoking cessation -Goal: 3 cigs/day until Tuesday which he has decided will be his quit day. Will start using patches. -Will discuss chantix/ Wellbutrin at next visit if not successful. #Hypertension -on amlodipine and lisinopril, not adherent to current regimen for fear of hypotension -Will d/c lisinopril and continue amlodipine 5mg daily -Discussed DASH diet, patient eating a lot of salty food (Abdi's, cape verdean fries, chips, soda). Identified a couple of [...] was trending up 1.09 on last check. #Alcoholic pancreatitis: -H/o etoh use disorder, currently drinks twice a year for 5 days at a time, drinks 6-7 beers/day. This has been an effort to cut back for him. His last binge was May 07. -No symptoms of pancreatitis today #amenia -very mild on last lab draw -Will repeat CBC and also send folate, B12, iron panel today. #Vit D deficiency -25-OH sent today to confirm as the last level was sent when he was drinking heavily and not eatingvery much (per patient). #Healthcare maintenance: -Patient requesting STI screening today, GCCT, RPR, HIV sent today. -Motivated to exercise and has set a goal of 40 pushups/night Contact information up to date in chart with working numbers, okay to leave a message. Return in about 6 weeks (around 07/25/2018) for with me, PCP, Next scheduled follow up. Teresita Painting MD Cosigned by Dee Appiah MD at 06/14/2018 10:02 AM CDT Associated attestation - Dee Appiah MD - 06/14/2018 10:02 AM CDT I have seen and examined the patient. I agree with the findings and plan of care as documented in the resident's note.. documented in this encounter Plan of Treatment [...] this encounter Results * N. gonorrhoeae/C. trachomatis amplification test Urine (06/13/2018 3:56 PM CDT) Report Final Report: Negative for: ??Chlamydia trachomatis rRNA Negative for: ??Neisseria gonorrhoeae rRNA [facility] Urine 06/13/2018 3:56 PM CDT 06/13/2018 5:34 PM CDT Narrative [facility] - 06/14/2018 2:01 PM CDT Testing performed by the Gen-Probe Nekst APTIMA Combo 2 Assay. This nucleic acid amplification test (NAAT) detects ribosomal RNA (rRNA) from Chlamydia trachomatis and Neisseria gonorrhoeae using target capture,and Material Inspector-Mediated Amplification (TMA). This test is approved by the [place] Food and Drug Administration for endocervical, vaginal, and male urethral swab specimens, in addition to male and female urine specimens. The performance characteristics for these specimen types have been verified by the [facility].The performance characteristics of this assay for pharyngeal and rectal specimens collected from cervical swab collection devices have been validated and verified by the [facility]. Verification studies support a lack of cross reactivity with other Neisseria species considered normal oropharyngeal bacterial cristina. Rectal swab specimens containing excess stool may be inhibitory and result in false negatives for Chlamydia trachomatis or Neisseria gonorrhoeae. The performance characteristics of this test have not been evaluated in women or individuals less than 16 years of age. Christiano Heller MD LAB MICROBIOLOGY - YoBucko L ORDERABLES Final Result Performing Organization Address City/[facility] Co de Phone Number [facility] [place] [address] * RPR, serum (06/13/2018 3:56 PM CDT) Pathologist [facility] RPR Nonreactive Nonreactive [facility] Blood specimen (specimen) 06/13/2018 3:56 PM CDT 06/13/2018 6:30 PM CDT Narrative [facility] - 06/13/2018 7:47 PM CDT Christiano Heller MD LAB MICROBIOLOGY - GENERA L ORDERABLES Final Result Performing Organization Address City/[facility]/[place] [address] * Hemoglobin A1c (06/13/2018 3:51 PM CDT) Hgb A1C 4.9 4.0 - 5.6 % [facility] Estimated Average Glucose 94 mg/dL [facility] Comment: The ADA recommends reporting an estimated Average Glucose (eAG) with all Hemoglobin A1c results using the equation derived from a study of 507 normal and diabetic adults. ??Minority populations were underrepresented and children were not included. ?? (Diabetes Care 31:7148-0341, 2008). ??The eAG is not equivalent to a fasting glucose. Blood specimen (specimen) 06/13/2018 3:51 PM CDT 06/13/2018 4:39 PM CDT Narrative [facility] - 06/13/2018 5:07 PM CDT Christiano Heller MD LAB BLOOD ORDERABLES Carrie l Result Performing Organization Address City/[facility]/ZIP Co de Phone Number [facility] [place] [address] * HIV-1 and HIV-2 antibody with P24 antigen immunoassay (06/13/2018 3:31 PM CDT) Pathologist [facility] HIV 1/2 ab + p24 ag Nonreactive Nonreactive [facility] Comment:Negative for HIV-1 a ntigen and HIV-1/ HIV-2 antibodies. No laboratory evidence of HIV infection. If acute HIV infection is suspected, consider testing for HIV-1 RNA. Blood specimen (specimen) 06/13/2018 3:31 PM CDT 06/13/2018 4:43 PM CDT [facility] 06/13/2018 5:33 PM CDT Christiano Heller MD LAB MICROBIOLOGY - GENERA L ORDERABLES Final Result Performing Organization Address [facility]/ZIP Co de Phone Number [facility] [place] [address] * Folate (06/13/2018 3:04 PM CDT) Pathologist [facility] Folic acid 7.1 >=5.0 ng/mL [facility] Blood specimen (specimen) 06/13/2018 3:04 PM CDT 06/13/2018 4:[address] [facility] 06/13/2018 6:35 PM CDT us Christiano Heller MD LAB BLOOD ORDERABLES Carrie l Result Performing Organization Address City/[facility]/ZIP Co de Phone Number [facility] [place] [address] * Iron profile (06/13/2018 3:04 PM CDT) [facility] Iron 77 50 - 150 mcg/dL [facility] UIBC 198 112 - 347 mcg/dL [facility] TIBC 275 250 - 400 mcg/dL [facility] Transferrin saturation 28 20 - 50 % [facility] Blood specimen (specimen) 06/13/2018 3:04 PM CDT 06/13/2018 4:41 PM CDT Narrative [facility] - 06/13/2018 6:31 PM CDT us Christiano Heller MD LAB BLOOD ORDERABLES Carrie l Result Performing Organization Address [facility] [place] [address] * (ABNORMAL) Vitamin D 25 hydroxy (06/13/2018 3:04 PM CDT) [facility] Vitamin D 25-OH 18(L) 30 - 80 ng/mL [facility] Blood specimen (specimen) 06/13/2018 3:04 PM CDT 06/13/2018 4:41 PM CDT Narrative [facility] - 06/13/2018 7:12 PM CDT Christiano Heller MD LAB BLOOD ORDERABLES Carrie l Result [facility] [place] [address] * Vitamin B12 (06/13/2018 3:04 PM CDT) [facility] Vitamin B12 688 230 - 1,250 pg/mL [facility] Blood specimen (specimen) 06/13/2018 3:04 PM CDT 06/13/2018 4:41 PM CDT Narrative [facility] - 06/13/2018 6:35 PM CDT us Christiano Heller MD LAB BLOOD ORDERABLES Carrie l Result [facility] Department [place] [address] * Comprehensive metabolic panel (06/13/2018 3:04 PM CDT) Pathologist [facility] Sodium 143 135 - 145 mmol/L [facility] Potassium, pl 3.7 3.3 - 4.9 mmol/L [facility] Chloride 103 97 - 110 mmol/L [facility] CO2 30 22 - 32 mmol/L [facility] Anion gap 10 2 - 15 mmol/L [facility] BUN 10 8 - 25 mg/dL [facility] Creatinine 1.03 0.80 - 1.30 mg/dL [facility] Glucose 77 70 - 199 mg/dL [facility] Comment: Interpretive Data Fasting glucose >/= 126 [...] 2017. Calcium 9.6 8.5 - 10.3 mg/dL [facility] Bilirubin, total 0.4 0.1 - 1.2 mg/dL [facility] Protein, pl 8.0 6.5 - 8.5 g/dL [facility] Albumin 4.9 3.5 - 5.0 g/dL [facility] Alk phos 63 40 - 130 Units/L [facility] ALT 13 7 - 55 Units/L [facility] AST 21 10 - 50 Units/L [facility] Blood specimen (specimen) 06/13/2018 3:04 PM CDT 06/13/2018 4:41 PM CDT Narrative [facility] - 06/13/2018 5:22 PM CDT Christiano Heller MD LAB BLOOD ORDERABLES Carrie khanna Result [facility] Department [place] [address] documented in this encounter Visit Diagnoses Diagnosis Essential hypertension- Primary Unspecified essential hypertension Healthcare maintenance Alcohol-induced chronic pancreatitis (CMS/HCC) (HCC) Chronic pancreatitis Smoking Tobacco use disorder H/O ETOH abuse Anemia, unspecified type Vitamin D deficiency Healthcare maintenance Anemia, unspecified type Vitamin D deficiency documented in this encounter Discontinued Medications Medication Sig Discontinue Reason Start Date End Da te sulfamethoxazole-trimeth oprim (BACTRIM,SEPTRA) 800-160 mg per tablet 06/10/2017 06/13/2018 omeprazole (PriLOSEC) 10 mg capsule Take 10 mg by mouth daily. 06/13/2018 predniSONE (DELTASONE) 10 mg tablet 06/06/2017 06/13/2018 nortriptyline (PAMELOR) 10 mg capsule take 1 capsule by oral route every day 12/30/2016 06/13/2018 celecoxib (CeleBREX) 200 mg capsule take 1 capsule by oral route every day as needed 12/30/2016 06/13/2018 lisinopril (PRINIVIL,ZESTRIL) 40 mg tablet take 1 tablet by oral route every day Error 12/03/2016 06/13/2018 documented as of this encounter Care Teams Dobby Looms Pegger Relationship Specialty Start Date End Date Teresita Painting MD PCP - General Internal Medicine 06/13/18 06/13/18 Darius Fernández MD [address] [place] [address] PCP - General 06/14/18 07/25/18 documented as of this encounter
--- OUTSIDE RECORDS SUMMARY | 2024-11-04 22:16 | XMS_ITS | Encounter Summary ---
Author Organization [facility] Healthcare Address [address] [place] [address] Care Team Providers Care Automotive Title Clerk Name Role Phone Teresita Painting MD Primary Care Prov ider Encounter Details Date Type Department Care Team (Late st Contact Info) Description 10/05/2018 3:15 PM TOUR ACTOR Lab [facility] Outpatient Health [address] [facility] [place] [address] Christiano Heller MD [address] [facility] [address] [place] [address] Anemia, unspecified type Discharge Disposition: Discharge to home or self care Social History Tobacco Use Types Packs/Day Years Used Date Smoking Tobacco: Every Day Cigarettes Smokeless Tobacco: Never Alcohol Use Standard Drinks/Week Comments Yes 0 (1 standard drink = 0.6 oz pur e alcohol) Sex and Gender Information Value Date Recorded Sex Assigned at Not on file Legal Sex Male 2:37 PM TOUR ACTOR Gender Identity Not on file Sexual Orientation [...] with all recommended providers ACO Care Management No Sherrie Kirkpatrick, RN Note: Problem: Potential for medical complications [...] medication regimen. documented as of this encounter Procedures Procedure Name Priority Date/Time Associated Diagnosis Comments DIFFERENTIAL AUTO Routine 10/05/2018 3:1 1 PM TOUR ACTOR Anemia, unspecified type CBC WITH AUTO DIFFERENTIAL Routine 10/05/2018 3:11 PM TOUR ACTOR Anemia, unspecified type documented in this encounter Results * Differential, auto (10/05/2018 3:11 PM TOUR ACTOR) Neutrophil abs 4.7 1.7 - 6.5 K/cumm [facility] Imm gran abs 0.0 0.0 - 0.1 K/cumm [facility] Lymphocyte abs 2.6 0.8 - 3.3 K/cumm [facility] Monocyte abs 0.6 0.2 - 0.8 K/cumm [facility] Eosinophil abs 0.3 0.0 - 0.5 K/cumm [facility] Basophil abs 0.0 0.0 - 0.1 K/cumm [facility] Neutrophil pct 57.1 % [facility] Comment: Interpretive Data Percent cell count reference ranges are not reported, since discordance with absolute values may lead to misinterpretation of CBC data. Current Interpretive Data was last revised on 2018. Imm gran pct 0.2 % [facility] Comment: Interpretive Data Percent cell count reference ranges are not reported, since discordance with absolute values may lead to misinterpretation of CBC data. Current Interpretive Data was last revised on 2018. Lymphocyte pct 31.1 % [facility] Comment: Interpretive Data Percent cell count reference ranges are not reported, since discordance with absolute values may lead to misinterpretation of CBC data. Current Interpretive Data was last revised on 2018. Monocyte pct 7.6 % [facility] Comment: Interpretive Data Percent cell count reference ranges are not reported, since discordance with absolute values may lead to misinterpretation of CBC data. Current Interpretive Data was last revised on 2018. Eosinophil pct 3.6 % [facility] Comment: Interpretive Data Percent cell count reference ranges are not reported, since discordance with absolute values may lead to misinterpretation of CBC data. Current Interpretive Data was last revised on 2018. Basophil pct 0.4 % [facility] Comment: Interpretive Data Percent cell count reference ranges are not reported, since discordance with absolute values may lead to misinterpretation of CBC data. Current Interpretive Data was last revised on 2018. Blood specimen (specimen) 10/05/2018 3:11 PM TOUR ACTOR 10/05/2018 4:12 PM TOUR ACTOR Narrative [facility] - 10/05/2018 4:25 PM TOUR ACTOR Christiano Heller MD LAB BLOOD ORDERABLES Carrie khanna Result [facility] Department [place] [address] * (ABNORMAL) CBC with auto differential (10/05/2018 3:11 PM TOUR ACTOR) WBC 8.3 3.8 - 9.9 K/cumm [facility] Hgb 14.3 13.0 - 17.5 g/dL [facility] Hct 43.4 38.9 - 50.3 % [facility] Plt 202 150 - 400 K/cumm [facility] MPV 9.7 9.1 - 12.3 fL [facility] RBC 4.55 4.30 - 5.80 M/cumm [facility] MCV 95.4 81.3 - 96.4 fL [facility] MCH 31.4 27.1 - 33.3 pg [facility] MCHC 32.9 32.3 - 35.7 g/dL [facility] RDW CV 13.8 11.1 - 14.9 % [facility] RDW SD 48.6(H) 35.7 - 48.1 fL [facility] NRBC abs 0.00 0.00 - 0.01 K/cumm [facility] Blood specimen (specimen) 10/05/2018 3:11 PM TOUR ACTOR 10/05/2018 4:12 PM TOUR ACTOR Narrative [facility] - 10/05/2018 4:25 PM TOUR ACTOR us Christiano Heller MD LAB BLOOD ORDERABLES Carrie khanna Result [facility] Department [place] [address] documented in this encounter Visit Diagnoses Diagnosis Anemia, unspecified type documented in this encounter Care Teams Automotive Title Clerk Relationship Specialty Start Date End Date Teresita Painting MD PCP - General Obstetrics and Gynecology 07/26/18 904/18 documented as of this encounter
--- OUTSIDE RECORDS SUMMARY | 2024-11-04 22:16 | XMS_ITS | Encounter Summary ---
Author Organization [facility] Healthcare Address [address] [place] [address] Care Team Providers Care Video Game Technician Name Role Phone Darius Fernández MD Primary Care Provider [phone] Teresita Painting MD Primary Care Prov ider Reason for Visit * Reason Onset Date Comments vitamin d low 06/29/2018 Encounter Details Date Type Department Care Team (Late st Contact Info) Description 06/29/2018 Telephone [facility] Primary Care Medicine Clinic [address] [facility] [address] [place] [address] Darius Fernández MD [facility] [address] S[address]ano [address] [id number] vitamin d low Social History Tobacco Use Types Packs/Day Years Used Date Smoking Tobacco: Every Day Cigarettes Smokeless Tobacco: Never Alcohol Use Standard Drinks/Week Comments Yes 0 (1 standard drink = 0.6 oz pur e alcohol) Sex and Gender Information Value Date Recorded Sex Assigned at Not on file Legal Sex Male 2:37 PM DIRECTOR DIABETES Gender Identity Not on file Sexual Orientation Not on file documented as of this encounter Miscellaneous Notes * Telephone Encounter - Shanell Gage - 06/29/2018 2:[address] FERNÁNDEZ Patient call per his vitamin d was low want to know if he have to take med.[phone]. All Reece [phone] documented in this encounter Plan of Treatment [...] medication regimen. documented as of this encounter Visit Diagnoses Not on filedocumented in this encounter Care Teams Video Game Technician Relationship Specialty Start Date End Date Darius Fernández MD [facility] [address] [place] [address] PCP - General 06/14/18 07/25/18 Teresita Painting MD [address] [place], [place] [address] [place] [address] PCP - General Obstetrics and Gynecology 07/26/1807/02 documented as of this encounter
--- OUTSIDE RECORDS SUMMARY | 2024-11-04 22:16 | XMS_ITS | Encounter Summary ---
Author Organization [facility] Healthcare Address [address] [place] [address] Care Team Providers Care Rv Mechanic Name Role Phone Teresita Painting MD Primary Care Prov ider Reason for Visit * Reason Onset Date Comments Med Refill 04/02/2020 Encounter Details Date Type Department Care Team (Late st Contact Info) Description 04/02/2020 Telephone [facility] Primary Care Medicine Clinic [address] [facility] Outpatient [facility] [address] [place] [address] Teresita Painting MD [address] [facility] [address] [place], [place] [id number] Med Refill Social History Tobacco Use Types Packs/Day Years Used Date Smoking Tobacco: Every Day Cigarettes Smokeless Tobacco: Never Comments:8 cigs a day Alcohol Use Standard Drinks/Week Comments Yes 0 (1 standard drink = 0.6 oz pur e alcohol) 4 tall boys a day Sex and Gender Information Value Date Recorded Sex Assigned at Not on file Legal Sex Male 2:37 PM COOKING CHEF Gender Identity Not on file Sexual Orientation Not on file documented as of this encounter Miscellaneous Notes * Telephone Encounter - Rita Correa - 04/02/2020 12:[address] Painting. Patient is requesting a new script for Vit D. He said you put it in your notes in 2018 but it was never called into pharmacy. Thanks, Rico [phone] documented in this encounter Plan of Treatment [...] on filedocumented in this encounter Care Teams Rv Mechanic Relationship Specialty Start Date End Date Teresita Painting MD PCP - General 10/25/19 04/17/21 documented as of this encounter
--- OUTSIDE RECORDS SUMMARY | 2024-11-04 22:16 | XMS_ITS | Encounter Summary ---
Author Organization [facility] Healthcare Address [address] [place] [address] Care Team Providers Care Continuous Churn Buttermaker Name Role Phone Teresita Painting MD Primary Care Prov ider Encounter Details Date Type Department Care Team (Late st Contact Info) Description 05/11/2020 Orders Only [facility] HealthCare/ Physicians [address] [place] [address] Noemi Mccoy MD [address] [facility] [address] [place], [place] [id number] Pre-op testing (Primary Dx) Social History Tobacco Use Types Packs/Day Years Used Date Smoking Tobacco: Every Day Cigarettes Smokeless Tobacco: Never Comments:8 cigs a day Alcohol Use Standard Drinks/Week Comments Yes 0 (1 standard drink = 0.6 oz pur e alcohol) 4 tall boys a day Sex and Gender Information Value Date Recorded Sex Assigned at Not on file Legal Sex Male 2:37 PM TELEPHONE PLANT POWER OPERATOR Gender Identity Not on file Sexual Orientation Not on file documented as of this encounter Progress Notes * Darline Humphrey MA - 05/11/2020 10:27 AM CDT Covid 19 preprocedure testing at [facility] documented in this encounter Miscellaneous Notes * Addendum Note - Michael Guzman - 05/11/2020 10:27 AM CDTAddended by: MICHAEL GUZMAN on: 2020 10:09 PM Modules accepted: Orders documented in this [...] documented as of this encounter Results * COVID-19 Coronavirus RNA Nasopharyngeal (2020 10:09 PM CDT) COVID-19 RNA Not Detected [facility] Comment: Interpretive Data Testing performed at [facility] Molecular Infectious Disease Laboratory. The 2019-Novel Coronavirus [...] PM CDT 05/13/2020 12:17 AM CDT Narrative [facility] - 05/13/2020 12:01 PM CDT Is the patient experiencing any symptoms consistent with COVID (eg. Fever, cough, shortness of breath)?->No What is the reason for testing?->Screening prior to scheduled (>12 hr) surgery or procedure us Noemi Mccoy MD LAB MICROBIOLOGY - GENERAL O RDERABLES Final Result [facility] One [facility] Department [place] [address] documented in this encounter Visit Diagnoses Diagnosis Pre-op testing- Primary Unspecified pre-operative examination Pre-op testing Unspecified pre-operative examination documented in this encounter Care Teams Continuous Churn Buttermaker Relationship Specialty Start Date End Date Teresita Painting MD PCP - General 10/25/19 04/17/21 documented as of this encounter
--- OUTSIDE RECORDS SUMMARY | 2024-11-04 22:16 | XMS_ITS | Encounter Summary ---
Author Organization [facility] Healthcare Address [address] [place] [address] Care Team Providers Care Head Filter Tank Tender Helper Name Role Phone Teresita Painting MD Primary Care Prov ider Encounter Details Date Type Department Care Team (Late st Contact Info) Description 04/22/2020 Orders Only [facility] Primary Care Medicine Clinic [address] [facility] Out[facility] Health [address] [place] [address] Teresita Painting MD [address] [facility] [address] [address] [place] [address] Social History Tobacco Use Types Packs/Day Years Used Date Smoking Tobacco: Every Day Cigarettes Smokeless Tobacco: Never Comments:8 cigs a day Alcohol Use Standard Drinks/Week Comments Yes 0 (1 standard drink = 0.6 oz pur e alcohol) 4 tall boys a day Sex and Gender Information Value Date Recorded Sex Assigned at Not on file Legal Sex Male 2:37 PM ELEMENT SETTER Gender Identity Not on file Sexual Orientation Not on file documented as of this encounter Ordered Prescriptions Prescription Sig Dispense Quantity Refills Last Filled Start Date End Date ergocalciferol (VITAMIN D) 50,000 unit capsule Take 1 capsule (50,000 Units total) by mouth once a week 8 capsule 04/22/2020 0 cholecalciferol (Vitamin D3) 2000 unit capsule Take 1 capsule (2,000 Units total) by mouth daily 90 capsule 3 04/22/2020 0 documented in this encounter Progress Notes * Teresita Painting MD - 04/22/2020 9:17 AM CDT Vitamin D ordered. Instructed to take 50,000 units weekly for 8 weeks followed by 2000 units daily. Teresita Painting MD documented in this encounter Plan of [...] on filedocumented in this encounter Care Teams Head Filter Tank Tender Helper Relationship Specialty Start Date End Date Teresita Painting MD PCP - General 10/25/19 04/17/21 documented as of this encounter
--- OUTSIDE RECORDS SUMMARY | 2024-11-04 22:16 | XMS_ITS | Encounter Summary ---
Author Organization [facility] Healthcare Address [address] [place] [address] Care Team Providers Care Carpenter'S Assistant Name Role Phone Darius Fernández MD Primary Care Provider [phone] Encounter Details Date Type Department Care Team (Late st Contact Info) Description 12/30/2016 9:12 AM BLANKBOOK FORWARDER - 12/30/2016 11:59 PM [facility] Hospital Encounter [facility] OP INTERIM [phone] Darius Fernández MD [facility] [address] S[address] [address] Discharge Disposition: Discharge to home or self care Social History Tobacco Use Types Packs/Day Years Used Date Smoking Tobacco: Heavy Smoker Comments:Smoking History Pac ks/day: 0.5 Packs Alcohol Use Standard Drinks/Week Comments Yes 0 (1 standard drink = 0.6 oz pur e alcohol) Sex and Gender Information Value Date Recorded Sex Assigned at Not on file Legal Sex Male 2:37 PM BLANKBOOK FORWARDER Gender Identity Not on file Sexual Orientation [...] route every day 30 1 12/30/2016 06/13/2018 documented as of this encounter Discharge Disposition Disposition Code Departure Means Destination Discharge to home or self care documented in this encounter Plan of Treatment Not on file documented as of this encounter Visit Diagnoses Not on filedocumented in this encounter Care Teams Carpenter'S Assistant Relationship Specialty Start Date End Date Darius Fernández MD [facility] [address] Zach ESCOBAR [address] [place] [address] PCP - General 12/30/16 01/27/17 documented as of this encounter
--- OUTSIDE RECORDS SUMMARY | 2024-11-04 22:16 | XMS_ITS | Encounter Summary ---
Author Organization [facility] Address [address] [facility] [address] [place] [address] Care Team Providers Care Byproduct Engineer Name Role Phone Darius Fernández MD Primary Care Provider [phone] Reason for Visit * Reason Onset Date Comments roni-test Results 06/20/2017 Encounter Details Date Type Department Care Team ([facility] Contact Info) Description 06/20/2017 Telephone [facility] at the [address] [place] [address] Darius Fernández MD [address] [place] [address] [address] [place], [place] [id number] roni-test Results Social History Tobacco Use Types Packs/Day Years Used Date Smoking Tobacco: Every Day Cigarettes Smokeless Tobacco: Never Alcohol Use Standard Drinks/Week Comments Yes 0 (1 standard drink = 0.6 oz pur e alcohol) Sex and Gender Information Value Date Recorded Sex Assigned at Not on file Legal Sex Male 2:37 PM BOILER RIVETER Gender Identity Not on file Sexual Orientation Not on file documented as of this encounter Miscellaneous Notes * Telephone Encounter - Paige Gerardo MA - 06/21/2017 9:25 AM CDT Test Result- Present: Type of test: Left hand xray Date of test: 06/17/17 Where test was performed: [facility] Results communicated to patient from the following chart location: yes Additional Questions/Comments: Results noted from 06/21/17 relayed to patient. Patient expressed understanding and clear on results. * Telephone Encounter - Nupur Alejandro MA - 06/21/2017 8:42 AM CDT FINAL REPORT The radiology attending physician has personally reviewed this study, and has reviewed and/or edited this written report and agrees with it. ? ACC# Date Time Exam ?? [id number] Jun 17, 2017 15:49:00 10144 Hand minimum 3 views L ?? EXAMINATION: Left hand and 3 views. ?? HISTORY: Left hand pain ?? FINDINGS: Three views of the left hand are performed without prior comparisons. Alignment and joint spaces are normal. There is no fracture or bone abnormality. The soft tissues appear normal. ?? IMPRESSION: Normal examination of the left hand. * Telephone Encounter - Darius Fernández MD - 06/20/2017 5:23 PM CDT This xray never came to me Please let me kn * Telephone Encounter - Nupur Alejandro MA - 06/20/2017 3:49 PM CDT X-ray results located under Imaging Tab. * Telephone Encounter - Paige Gerardo MA - 06/20/2017 3:33 PM CDT Test Result- Not Present: Type of test: Left hand xray Date of test: 06/17/17 Where test was performed: [facility] Additional Questions/Comments: Patient called to request results. Please assist documented in this encounter Plan of Treatment Not on file documented as of this encounter Visit Diagnoses Not on filedocumented in this encounter Care Teams Byproduct Engineer Relationship Specialty Start Date End Date Darius Fernández MD [facility] [address] Zach ESCOBAR [address] [place] [address] PCP - General 01/28/17 06/08/18 documented as of this encounter
--- OUTSIDE RECORDS SUMMARY | 2024-11-04 22:16 | XMS_ITS | Encounter Summary ---
Author Organization [facility] Healthcare Address [address] [place] [address] Care Team Providers Care Political Science Instructor Name Role Phone Teresita Painting MD Primary Care Prov ider Encounter Details Date Type Department Care Team (Late st Contact Info) Description 04/02/2020 Orders Only Internal Medicine Teresita Painting MD [address] 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
--- OUTSIDE RECORDS SUMMARY | 2024-11-04 22:16 | XMS_ITS | Encounter Summary ---
Author Organization [facility] Care Team Providers Care Supervisor Compounding And Finishing Name Role Phone Teresita Painting MD Primary Care Prov ider Encounter Details Date Type Department Care Team (Latest Contact Info) Description 12/07/2019 Travel Social History Tobacco Use Types Packs/Day Years Used Date Smoking Tobacco: Every Day Cigarettes Smokeless Tobacco: Never Comments:8 cigs a day Alcohol Use Standard Drinks/Week Comments Yes 0 (1 standard drink = 0.6 oz pur e alcohol) 4 tall boys a day Sex and Gender Information Value Date Recorded Sex Assigned at Not on file Legal Sex Male 2:37 PM DIRECT SUPPORT STAFF MEMBER Gender Identity Not on file Sexual Orientation [...] on filedocumented in this encounter Care Teams Supervisor Compounding And Finishing Relationship Specialty Start Date End Date Teresita Paintign MD PCP - General 10/25/19 04/17/21 documented as of this encounter
--- OUTSIDE RECORDS SUMMARY | 2024-11-04 22:16 | XMS_ITS | Encounter Summary ---
Author Organization [facility] Healthcare Address [address] [place] [address] Care Team Providers Care Plastic Welder Name Role Phone Teresita Painting MD Primary Care Prov ider Encounter Details Date Type Department Care Team (Latest Contact Info) Description 12/07/2019 11:40 PM DISCHARGE COORDINATOR - 12/07/2019 11:59 PM DISCHARGE COORDINATOR Hospital Encounter [facility] Radiology [address] [place] [address] Jabari Gandara MD [address] [facility] [address] [place] [address] Discharge Disposition: Discharge to home or self [...] on file Legal Sex Male 2:37 PM DISCHARGE COORDINATOR Gender Identity Not on file Sexual Orientation [...] Name Priority Date/Time Associated Diagnosis Comments XR CHEST PA LATERAL 2 VIEWS ED 12/07/2019 11:43 PM DISCHARGE COORDINATOR documented in this encounter Results * XR Chest Pa Lateral 2 Vw (12/07/2019 11:43 PM DISCHARGE COORDINATOR) Anatomical Region Laterality Modality Body, Chest N/A Computed Radiogr aphy 12/08/2019 12:0 2 AM DISCHARGE COORDINATOR Impressions 12/08/2019 9:03 AM DISCHARGE COORDINATOR Comparison is made to prior radiograph 01/14/2015. ??The lungs are clear without pneumothorax or pleural effusion. ??The cardiomediastinal silhouette is within normal limits. Dictated by: Pedro Gallagher M.D. Ph.D. The radiology attending physician has personally reviewed this study, and had reviewed and/or edited this written report and agrees with it. Electronically signed by: Shilo Gonzalez M.D. Narrative 12/08/2019 9:03 AM DISCHARGE COORDINATOR EXAMINATION: XR CHEST PA LATERAL 2 VIEWS [...] lt documented in this encounter Visit Diagnoses Not on filedocumented in this encounter Care Teams Plastic Welder Relationship Specialty Start Date End Date Teresita Painting MD PCP - General 10/25/19 04/17/21 documented as of this encounter
--- OUTSIDE RECORDS SUMMARY | 2024-11-04 22:16 | XMS_ITS | Encounter Summary ---
Author Organization [facility] Healthcare Address [address] [place] [address] Care Team Providers Care Mailroom Coordinator Name Role Phone Teresita Painting MD Primary Care Prov ider Reason for Visit * Reason Onset Date Comments Follow-up 10/02/2018 Encounter Details Date Type Department Care Team (Late st Contact Info) Description 10/02/2018 Telephone [facility] Primary Care Medicine Clinic [address] [facility] [address] [place] [address] Teresita Painting MD [address] [facility] [address] [place] [address] Follow-up Social History Tobacco Use Types Packs/Day Years Used Date Smoking Tobacco: Every Day Cigarettes Smokeless Tobacco: Never Alcohol Use Standard Drinks/Week Comments Yes 0 (1 standard drink = 0.6 oz pur e alcohol) Sex and Gender Information Value Date Recorded Sex Assigned at Not on file Legal Sex Male 2:37 PM BIBLICAL STUDIES PROFESSOR Gender Identity Not on file Sexual Orientation Not on file documented as of this encounter Miscellaneous Notes * Telephone Encounter - Mcadams Elder - 10/02/2018 3:[address] Painting, Patient states he discussed a letter for his employer stating he was not feeling well and that he came in to see you, he states he is still not feeling well but he will need that letter or note to take to his employer. Please follow up with patient and give him a call as soon as you can. Patient contact: [phone] Elder Carrizales ICAL STUDIES PROFESSOR documented in this encounter Plan of Treatment [...] on filedocumented in this encounter Care Teams Mailroom Coordinator Relationship Specialty Start Date End Date Teresita Painting MD PCP - General Obstetrics and Gynecology 07/26/18 904/18 documented as of this encounter
--- OUTSIDE RECORDS SUMMARY | 2024-11-04 22:16 | XMS_ITS | Encounter Summary ---
Author Organization [facility] Healthcare Address [address] [place] [address] Care Team Providers Care Grazing Examiner Name Role Phone Teresita Painting MD Primary Care Prov ider Encounter Details Date Type Department Care Team (Late st Contact Info) Description 06/13/2018 3:55 PM CDT Lab [facility] [address] [place] [address] Healthcare maintenance; Anemia, unspecified type; Vitamin D deficiency Social History Tobacco Use Types Packs/Day Years Used Date Smoking Tobacco: Every Day Cigarettes Smokeless Tobacco: Never Alcohol Use Standard Drinks/Week Comments Yes 0 (1 standard drink = 0.6 oz pur e alcohol) Sex and Gender Information Value Date Recorded Sex Assigned at Not on file 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 GONORRHOEAE/C. TRACHOMATIS AMPLIFICATION TEST Routine 06/13/2018 3:56 PM CDT Healthcare maintenance RPR Routine 06/13/2018 3:56 PM CDT Healthcare maintenance HEMOGLOBIN A1C Routine 06/13/2018 3:51 PM CDT Healthcare maintenance HIV 1/2 ANTIBODY PLUS P24 ANTIGEN Routine 06/13/2018 3:31 PM CDT Healthcare maintenance IRON PROFILE W/ IBC Routine 06/13/2018 3 :04 PM CDT Anemia, unspecified type VITAMIN D 25 HYDROXY Routine 06/13/2018 3:04 PM CDT Vitamin D deficiency FOLATE Routine 06/13/2018 3:04 PM CDT Anemia, unspecified type VITAMIN B12 Routine 06/13/2018 3:04 PM CDT Anemia, unspecified type COMPREHENSIVE METABOLIC PANEL Routine 06/13/2018 3:04 PM CDT Healthcare maintenance documented in this encounter Results * RPR, serum (06/13/2018 3:56 PM CDT) RPR Nonreactive Nonreactive [facility] Blood specimen (specimen) 06/13/2018 3:56 PM CDT 06/13/2018 6:30 PM CDT Narrative [facility] - 06/13/2018 7:47 PM CDT us Christiano Heller MD LAB MICROBIOLOGY - GENERA L ORDERABLES Final Result [facility] Department [place] [address] * N. gonorrhoeae/C. trachomatis amplification test Urine (06/13/2018 3:56 PM CDT) Report Final Report: Negative for: ??Chlamydia trachomatis rRNA Negative for: ??Neisseria gonorrhoeae rRNA [facility] Urine 06/13/2018 3:56 PM CDT 06/13/2018 5:34 PM CDT Narrative [facility] - 06/14/2018 2:01 PM CDT Testing performed by the Gen-Probe TigFinalCAD APTIMA Combo 2 Assay. This nucleic acid amplification test (NAAT) detects ribosomal RNA (rRNA) from Chlamydia trachomatis and Neisseria gonorrhoeae using target capture,and Director Trial-Mediated Amplification (TMA). This test is approved by the [place] Food and Drug Administration for endocervical, vaginal, and male urethral swab specimens, in addition to male and female urine specimens. The performance characteristics for these specimen types have been verified by the [facility].The performance characteristics of this assay for pharyngeal and rectal specimens collected from cervical swab collection devices have been validated and verified by the [facility]. Verification studies support a lack [...] age. Christiano Heller MD LAB MICROBIOLOGY - GENERA L ORDERABLES Final Result [facility] Department [place] [address] * Hemoglobin A1c (06/13/2018 3:51 PM CDT) Hgb A1C 4.9 4.0 - 5.6 % [facility] Estimated Average Glucose 94 mg/dL [facility] Comment: The ADA recommends reporting an estimated Average Glucose (eAG) with all Hemoglobin A1c results using the equation derived from a study of 507 normal and diabetic adults. ??Minority populations were underrepresented and children were not included. ?? (Diabetes Care 31:0171-2328, 2008). ??The eAG is not equivalent to a fasting glucose. Blood specimen (specimen) 06/13/2018 3:51 PM CDT 06/13/2018 4:39 PM CDT Narrative [facility] - 06/13/2018 5:07 PM CDT Christiano Heller MD LAB BLOOD ORDERABLES Carrie l Result Performing Organization Address [facility] de Phone Number [facility] Department [place] [address] * HIV-1 and HIV-2 antibody with P24 antigen immunoassay (06/13/2018 3:31 PM CDT) [facility] HIV 1/2 ab + p24 ag Nonreactive Nonreactive [facility] Comment:Negative for HIV-1 a ntigen and HIV-1/ HIV-2 antibodies. No laboratory evidence of HIV infection. If acute HIV infection is suspected, consider testing for HIV-1 RNA. Blood specimen (specimen) 06/13/2018 3:31 PM CDT 06/13/2018 4:43 PM CDT Narrative [facility] - 06/13/2018 5:33 PM CDT Christiano Heller MD LAB MICROBIOLOGY - GENERA L ORDERABLES Final Result Performing Organization Address [facility] de Phone Number [facility] Department [place] [address] * Comprehensive metabolic panel (06/13/2018 3:04 PM CDT) [facility] Sodium 143 135 - 145 mmol/L [facility] Potassium, pl 3.7 3.3 - 4.9 mmol/L [facility] Chloride 103 97 - 110 mmol/L [facility] CO2 30 22 - 32 mmol/L [facility] Anion gap 10 2 - 15 mmol/L [facility] BUN 10 8 - 25 mg/dL [facility] Creatinine 1.03 0.80 - 1.30 mg/dL [facility] [...] 2017. Calcium 9.6 8.5 - 10.3 mg/dL [facility] Bilirubin, total 0.4 0.1 - 1.2 mg/dL [facility] Protein, pl 8.0 6.5 - 8.5 g/dL [facility] Albumin 4.9 3.5 - 5.0 g/dL [facility] Alk phos 63 40 - 130 Units/L [facility] ALT 13 7 - 55 Units/L [facility] AST 21 10 - 50 Units/L [facility] Blood specimen (specimen) 06/13/2018 3:04 PM CDT 06/13/2018 4:41 PM CDT Narrative [facility] - 06/13/2018 5:22 PM CDT Christiano Heller MD LAB BLOOD ORDERABLES Carrie l Result [facility] [place] [address] * Folate (06/13/2018 3:04 PM CDT) Folic acid 7.1 >=5.0 ng/mL [facility] Blood specimen (specimen) 06/13/2018 3:04 PM CDT 06/13/2018 4:41 PM CDT Narrative [facility] - 06/13/2018 6:35 PM CDT Christiano Heller MD LAB BLOOD ORDERABLES Carrie l Result Performing Organization Address City/[facility]/[place] [address] * Iron profile (06/13/2018 3:04 PM CDT) [facility] Iron 77 50 - 150 mcg/dL [facility] UIBC 198 112 - 347 mcg/dL [facility] TIBC 275 250 - 400 mcg/dL [facility] Transferrin saturation 28 20 - 50 % [facility] Blood specimen (specimen) 06/13/2018 3:04 PM CDT 06/13/2018 4:41 PM CDT Narrative [facility] - 06/13/2018 6:31 PM CDT Christiano Heller MD LAB BLOOD ORDERABLES Carrie l Result Performing Organization Address [facility] [place] [address] * (ABNORMAL) Vitamin D 25 hydroxy (06/13/2018 3:04 PM CDT) [facility] Vitamin D 25-OH 18(L) 30 - 80 ng/mL [facility] Blood specimen (specimen) 06/13/2018 3:04 PM CDT 06/13/2018 4:41 PM CDT Narrative [facility] - 06/13/2018 7:12 PM CDT Christiano Heller MD LAB BLOOD ORDERABLES Carrie l Result Performing Organization Address City/[facility]/[place] [address] * Vitamin B12 (06/13/2018 3:04 PM CDT) Vitamin B12 688 230 - 1,250 pg/mL [facility] Blood specimen (specimen) 06/13/2018 3:04 PM CDT 06/13/2018 4:41 PM CDT Narrative [facility] - 06/13/2018 6:35 PM CDT us Christiano Heller MD LAB BLOOD ORDERABLES Carrie l Result [facility] Department [place] [address] documented in this encounter Visit Diagnoses Diagnosis Healthcare maintenance Anemia, unspecified type Vitamin D deficiency documented in this encounter Care Teams Grazing Examiner Relationship Specialty Start Date End Date Teresita Painting MD PCP - General Internal Medicine 06/13/18 06/13/18 documented as of this encounter
--- OUTSIDE RECORDS SUMMARY | 2024-11-04 22:16 | XMS_ITS | Encounter Summary ---
Author Organization [facility] Facility Care Team Providers Care Barrel Inspector Name Role Phone Unavailable Primary Care Provider Unavailabl e Encounter Details Date Type Department Care Team (Latest Contact Info) Description 07/23/2016 10:28 AM CDT - 07/23/2016 11:59 PM T Hospital Encounter [facility] Christiano Yin MD [address] [address] Uncomplicated alcohol abuse; Essential (primary) hypertension; Other chronic pancreatitis (CMS/HCC); Nicotine dependence, uncomplicated; Other mcc (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; Family history of ischemic heart disease and other diseases of the circulatory system; Family history of malignant neoplasm of kidney Social History Tobacco Use Types Packs/Day Years Used Date Smoking Tobacco: Never Assessed Sex and Gender Information Value Date Recorded Sex Assigned at Not on file 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
--- OUTSIDE RECORDS SUMMARY | 2024-11-04 22:16 | XMS_ITS | Encounter Summary ---
Author Organization [facility] Facility Care Team Providers Care Bass Mechanism Maker Name Role Phone Unavailable Primary Care Provider Unavailabl e Encounter Details Date Type Department Care Team (Late st Contact Info) Description 07/29/2016 2:20 PM CDT - 07/29/2016 11:59 PM T [facility] [address] [address] Social History Tobacco Use Types Packs/Day Years Used Date Smoking Tobacco: Never Assessed Sex and Gender Information Value Date Recorded Sex Assigned at Not on file Legal Sex Male 2:37 PM SHIRT MARKER Gender Identity Not on file Sexual Orientation Not on file documented as of this encounter Plan of Treatment Not on file documented as of this encounter Visit Diagnoses Not on filedocumented in this encounter
--- OUTSIDE RECORDS SUMMARY | 2024-11-04 22:16 | XMS_ITS | Encounter Summary ---
Author Organization [facility] Medical Group Address [address] [place] [address] Care Team Providers Care Frickertron Checker Name Role Phone Darius Fernández MD Primary Care Provider [phone] Reason for Visit * Reason Onset Date Comments Dr. Fernández-medical question 10/21/2017 Encounter Details Date Type Department Care Team ([facility] Contact Info) Description 10/21/2017 Telephone [facility] Medical Group at the [address] [place] [address] Darius Fernández MD [address] [place] [address] [address] [place], [place] [id number] Dr. 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 Sending High-Priority Message. Patient is returning Dr. Fernández's call. Please contact patient at [phone]. Okay to leave a voicemail. NESS DEVELOPMENT ENGINEER * Telephone Encounter - Darius Fernández MD - 10/21/2017 2:57 PM CST Pt not home Left message that I called and asked him to call back NESS DEVELOPMENT ENGINEER * Telephone Encounter - Beckie Bassett MA - 10/21/2017 1:12 PM CST , pt has no fever, green sputum. No earache. Nose is slightly stuffy. Would like cough medicine called in [phone] [facility] Address: [address] [place] [address] NESS DEVELOPMENT ENGINEER * Telephone Encounter - Nupur Schafer - 10/21/2017 12:54 PM CST Message being sent to provider, button station worker is currently at capacity. Symptom Based Call Chief Complaint: Cough Duration: Over 1 wk Appointment Details: Declined a same day appointment as he has to work. Additional Comments: Patient has been taking alkaseltzer plus for cold symptoms, but cough has not subsided. Patient is requesting a cough medicine to be called into the pharmacy. Patient states it is okay to leave a message on his phone if he doesn't answer. NESS DEVELOPMENT ENGINEER documented in this encounter Plan of Treatment Not on file documented as of this encounter Visit Diagnoses Not on filedocumented in this encounter Care Teams Frickertron Checker Relationship Specialty Start Date End Date Darius Fernández MD [facility] [address] Zach [address] [place] [address] PCP - General 01/28/17 06/08/18 documented as of this encounter
--- OUTSIDE RECORDS SUMMARY | 2024-11-04 22:16 | XMS_ITS | Encounter Summary ---
Author Organization [facility] Medical [facility] Address [address] [place] [address] Care Team Providers Care Web Mobile Designer Name Role Phone Darius Fernández MD Primary Care Provider [phone] Reason for Visit * Reason Comments Hypertension Follow-up Encounter Details Date Type Department Care Team ([facility] Contact Info) Description 04/13/2018 9:30 AM CDT Office Visit [facility] Medical Group at the [address] [place] [address] Darius Fernández MD [address] [place] [address] [address] [place], [place] [id number] Essential hypertension (Primary Dx) Social History Tobacco Use Types Packs/Day Years Used Date Smoking Tobacco: Every Day Cigarettes Smokeless Tobacco: Never Alcohol Use Standard Drinks/Week Comments Yes 0 (1 standard drink = 0.6 oz pur e alcohol) Sex and Gender Information Value Date Recorded Sex Assigned at Not on file 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 Gender Identity Not on file Sexual Orientation Not on file documented as of this encounter Last Filed Vital Signs Vital Sign Reading Time Taken Comments Blood Pressure 138/84 04/13/2018 9:32 AM CDT Pulse 92 04/13/2018 9:32 AM CDT Temperature - - Respiratory Rate - - Oxygen Saturation - - Inhaled Oxygen Concentration - - Weight 48.7 kg (107 lb 6.4 oz) 04/13/2018 9:32 A M CDT Height - - Body Mass Index 17.08 06/17/2017 2:59 PM CDT documented in this encounter Ordered Prescriptions Prescription Sig Dispense Quantity Refills Last Filled Start Date End Date amLODIPine (NORVASC) 5 mg tablet Take 1 tablet (5 mg total) by mouth daily. 90 tablet 3 04/13/2018 09/29/2018 documented in this encounter Progress Notes * Darius Fernández MD - 04/13/2018 9:30 AM CDT Subjective/Objective Patient ID: Yariel Hill is a 47 y.o. male. Chief Complaint Hypertension and Follow-up Patient is been between jobs and he is out of insurance. She is here to get his blood pressure checked. He also would like some labs drawn. I suggested he get the labs drawn after gets insurance. Patient also has a cyst on his scrotum. Patient ran out of his lisinopril and has only been taking the amlodipine. Ran out of the lisinopril a few days ago. Hypertension This is a chronic problem. The current episode started more than 1 year ago. The problem is unchanged. The problem is controlled. Pertinent negatives include no anxiety, blurred vision, chest pain, headaches, malaise/fatigue, neck pain, orthopnea, palpitations, peripheral edema, PND, shortness of breath or sweats. Risk factors for coronary artery disease include male gender. Past treatments include JULIÁN inhibitors and calcium channel blockers. The current treatment provides moderate improvement.Compliance problems include medication cost. There is no history of angina, kidney disease, CAD/SC,CVA, heart failure, left ventricular hypertrophy, PVD or retinopathy. Review of Systems Constitutional: Negative for malaise/fatigue. Eyes: Negative for blurred vision. Respiratory: Negative for shortness of breath. Cardiovascular: Negative for chest pain, palpitations, orthopnea and PND. Musculoskeletal: Negative for neck pain. Neurological: Negative for headaches. Physical Exam Constitutional: He is oriented to person, place, and time. He appears well- developed and well-nourished. No distress. HENT: Head: Normocephalic and atraumatic. Right Ear: External ear normal. Left Ear: External ear normal. Eyes: Conjunctivae and EOM are normal. Pupils are equal, round, and reactive to light. Cardiovascular: Normal rate, regular rhythm, normal heart sounds and intact distal pulses. Pulmonary/Chest: Effort normal and breath sounds normal. Genitourinary: Penis normal. No penile tenderness. Musculoskeletal: Normal range of motion. He exhibits no edema, tenderness or deformity. Neurological: He is alert and oriented to person, place, and time. He displays normal reflexes. No cranial nerve deficit or sensory deficit. He exhibits normal muscle tone. Coordination normal. Skin: Skin is warm and dry. No rash noted. He is not diaphoretic. No erythema. No pallor. Psychiatric: He has a normal mood and affect. His behavior is normal. Judgment and thought content normal. Assessment/Plan Diagnoses and all orders for this visit: Essential hypertension (Primary) - Lipid panel; Future - CBC with auto differential; Future - Urinalysis reflex to microscopic Urine; Future - Comprehensive metabolic panel; Future Other orders - amLODIPine (NORVASC) 5 mg tablet; Take 1 tablet (5 mg total) by mouth daily. documented in this encounter Miscellaneous Notes * Assessment & Plan Note - Darius Fernández MD - 04/13/2018 4:51 PM CDT Associated Problem(s): Hypertension Hypertension is improving with treatment. Continue current treatment regimen. Blood pressure will be reassessed in 3 months. He will leave the patient off lisinopril because hisblood pressure seems to be doing well off of it. documented in this encounter Plan of Treatment Not on file documented as of this encounter Visit Diagnoses Diagnosis Essential hypertension- Primary Unspecified essential hypertension documented in this encounter Discontinued Medications Medication Sig Discontinue Reason Start Date End Da te amLODIPine (NORVASC) 5 mg tablet Take 1 tablet (5 mg total) by mouth daily. Reorder 03/30/2018 04/13/2018 documented as of this encounter Care Teams Web Mobile Designer Relationship Specialty Start Date End Date Darius Fernández MD [address] Zach [address] [place] [address] PCP - General 01/28/17 06/08/18 documented as of this encounter
--- OUTSIDE RECORDS SUMMARY | 2024-11-04 22:16 | XMS_ITS | Encounter Summary ---
Author Organization [facility] Facility Care Team Providers Care Data Security Administrator Name Role Phone Unavailable Primary Care Provider Unavailabl e Encounter Details Date Type Department Care Team (Latest Contact Info) Description 07/02/2016 2:21 PM CDT - 07/02/2016 11:59 PM CDT [facility] [address] [place] [address] Essential (primary) hypertension; Other chronic pancreatitis (CMS/HCC); Cyst of pancreas; Uncomplicated alcohol abuse; Cigarette nicotine dependence, uncomplicated Social History Tobacco Use Types Packs/Day Years Used Date Smoking Tobacco: Never Assessed Sex and Gender Information Value Date Recorded Sex Assigned at Not on file 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 Gender Identity Not on file Sexual Orientation Not on file documented as of this encounter Plan of Treatment Not on file documented as of this encounter Procedures Procedure Name Priority Date/Time Associated Diagnosis Comments SERUM 25-HYDROXYCHOLECALC IFEROL (VITAMIN D) Routine 07/02/2016 3:25 PM CDT documented in this encounter Results * Serum 25-hydroxycholecalciferol (vitamin D) (07/02/2016 3:25 PM CDT) 25-OH Vit D 39 30 - 100 ng/ml CDR HISTORICAL RESULTS Serum 07/02/2016 3:25 PM CDT us Shahid Harding MD LAB BLOOD ORDERABLES Final Resul t CDR HISTORICAL RESULTS documented in this encounter Visit Diagnoses Diagnosis Essential (primary) hypertension Unspecified essential hypertension Other chronic pancreatitis (HCC) Cyst of pancreas Cyst and pseudocyst of pancreas Uncomplicated alcohol abuse Cigarette nicotine dependence, uncomplicated documented in this encounter
--- OUTSIDE RECORDS SUMMARY | 2024-11-04 22:16 | XMS_ITS | Encounter Summary ---
Author Organization [facility] Facility Care Team Providers Care Rn Rehabilitation Name Role Phone Unavailable Primary Care Provider Unavailabl e Encounter Details Date Type Department Care Team (Late st Contact Info) Description 10/20/2016 7:00 AM GROUP COUNSELOR - 10/20/2016 11:59 PM GROUP COUNSELOR Hospital [facility] Christiano Heller MD [address] [address] [place] Social History Tobacco Use Types Packs/Day Years Used Date Smoking Tobacco: Never Assessed Sex and Gender Information Value Date Recorded Sex Assigned at Not on file 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
--- OUTSIDE RECORDS SUMMARY | 2024-11-04 22:16 | XMS_ITS | Encounter Summary ---
Author Organization [facility] Address [address] [place] [address] Care Team Providers Care Soybean Specialties Cook Name Role Phone Darius Fernández MD Primary Care Provider [phone] Reason for Visit * Reason Comments Hospital Follow Up Insect Bite L hand Encounter Details Date Type Department Care Team (Late Contact Info) Description 06/17/2017 2:45 PM CDT Office Visit [facility] at the [address] [place] [address] Darius Fernández MD [address] [place] [address] [address] [place] [address] Left hand pain (Primary Dx) Social History Tobacco Use Types Packs/Day Years Used Date Smoking Tobacco: Every Day Cigarettes Smokeless Tobacco: Never Alcohol Use Standard Drinks/Week Comments Yes 0 (1 standard drink = 0.6 oz pur e alcohol) Sex and Gender Information Value Date Recorded Sex Assigned at Not on file Legal Sex Male 2:37 PM 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'S 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 Gender Identity Not on file Sexual Orientation Not on file documented as of this encounter Last Filed Vital Signs Vital Sign Reading Time Taken Comments Blood Pressure 108/64 06/17/2017 2:59 PM CDT Pulse 68 06/17/2017 2:59 PM CDT Temperature - - Respiratory Rate - - Oxygen Saturation - - Inhaled Oxygen Concentration - - Weight 46.1 kg (101 lb 9.6 oz) 06/17/2017 2:59 P M CDT Height 168.9 cm (5' 6.5 ) 06/17/2017 2:59 PM CDT Body Mass Index 16.15 06/17/2017 2:59 PM CDT documented in this encounter Progress Notes * Darius Fernández MD - 06/17/2017 2:45 PM CDT Subjective/Objective Patient ID: Yariel Hill is a 47 y.o. male. 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 No distress. HENT: Head: Normocephalic and atraumatic. Right Ear: External ear normal. Left Ear: External ear normal. Eyes: EOM are normal. Pupils are equal, round, and reactive to light. Neck: Normal range of motion. Neck supple. Cardiovascular: Normal rate, regular rhythm, normal heart sounds and intact distal pulses. Pulmonary/Chest: Effort normal and breath sounds normal. Musculoskeletal: Normal range of motion. There is swelling on the dorsal aspect of the gentleman's left hand. There is no evidence any insect bite redness or bite crump at all. The Skin: He is not diaphoretic. Assessment/Plan Diagnoses and all orders for this visit: 1. Left hand pain (Primary) Assessment & Plan: The patient has swelling on the dorsal aspect of his left hand. We will check x- ray. I do not see any evidence of an insect bite and does not look like any insect bite I have seen before. On it seemsto be more of a swollen hand. As stated will check an x-ray and decide what to do when the x-rays available. Orders: - XR Hand Left 3 or More Views; Future documented in this encounter Miscellaneous Notes * Assessment & Plan Note - Darius Fernández MD - 06/17/2017 6:04 PM CDT Associated Problem(s): Left hand pain (Resolved 06/13/2018) The patient has swelling on the dorsal aspect of his left hand. We will check x- ray. I do not see any evidence of an insect bite and does not look like any insect bite I have seen before. On it seemsto be more of a swollen hand. As stated will check an x-ray and decide what to do when the x-rays available. documented in this encounter Plan of Treatment Not on file documented as of this encounter Visit Diagnoses Diagnosis Left hand pain- Primary Pain in soft tissues of limb documented in this encounter Historical Medications * This list may reflect changes made after this encounter. omeprazole (PriLOSEC) 10 mg capsule Take 10 mg by mouth daily. 06/13/2018 sulfamethoxazole- trimethoprim (BACTRIM,SEPTRA) 800-160 mg per tablet 06/10/2017 06/13/2018 predniSONE (DELTASONE) 10 mg tablet 06/06/2017 06/13/2018 added in this encounter Orders Imaging Orders Without Results Count Last Order ed Date First Ordered Date XR HAND LEFT 3 OR MORE VIEWS 1 06/17/2017 documented in this encounter Care Teams Soybean Specialties Cook Relationship Specialty Start Date End Date Darius Fernández MD [address] [place] [address] DR Zach ESCOBAR [address] [place] [address] PCP - General 01/28/17 06/08/18 documented as of this encounter
--- OUTSIDE RECORDS SUMMARY | 2024-11-04 22:16 | XMS_ITS | Encounter Summary ---
Author Organization [facility] Healthcare Address [address] [place] [address] Care Team Providers Care Field Artillery Basic Name Role Phone Teresita Painting MD Primary Care Prov ider Encounter Details Date Type Department Care Team (Late st Contact Info) Description 07/06/2019 3:40 PM CDT Lab [facility] [address] [place] [id number] Healthcare maintenance; Vitamin D deficiency Social History Tobacco Use Types Packs/Day Years Used Date Smoking Tobacco: Every Day Cigarettes Smokeless Tobacco: Never Alcohol Use Standard Drinks/Week Comments Yes 0 (1 standard drink = 0.6 oz pur e alcohol) occas Sex and Gender Information Value Date Recorded Sex Assigned at Not on file Legal Sex Male 2:37 PM DIRECTOR OF FIRST IMPRESSIONS Gender Identity Not on file Sexual Orientation [...] Procedure Name Priority Date/Time Associated Diagnosis Comments N.GONORRHOEAE/C.TRACH OMATIS AMPLIFICATION- GENITAL, URINE Routine 07/06/2019 5:02 PM CDT Healthcare maintenance DIFFERENTIAL AUTO Routine 07/06/2019 3:4 7 PM CDT Healthcare maintenance HIV 1/2 ANTIBODY PLUS P24 ANTIGEN Routine 07/06/2019 3:47 PM CDT Healthcare maintenance CBC WITH AUTO DIFFERENTIAL Routine 07/06/2019 3:47 PM CDT Healthcare maintenance VITAMIN D 25 HYDROXY Routine 07/06/2019 3:47 PM CDT Vitamin D deficiency RPR Routine 07/06/2019 3:47 PM CDT Healthcare maintenance LIPID PANEL Routine 07/06/2019 3:47 PM CDT Healthcare maintenance documented in this encounter Results * N. gonorrhoeae/C. trachomatis Amplification- Genital, Urine (07/06/2019 5:02 PM CDT) C. trachomatis Not Detected Not Detected [facility] N. gonorrhoeae Not Detected Not Detected [facility] Comment: Interpretive Data Testing performed by the [facility]. This assay detects Chlamydia trachomatis [...] revised on 2018. Source- Genital, Urine Urine [facility] Urine 07/06/2019 5:02 PM CDT 07/06/2019 6:51 PM CDT us Christiano Heller MD LAB MICROBIOLOGY - GENERA L ORDERABLES Final Result [facility] [address] [place] [address] * Differential, auto (07/06/2019 3:47 PM CDT) Neutrophil abs 4.5 1.7 - 6.5 K/cumm [facility] Imm gran abs 0.0 0.0 - 0.1 K/cumm [facility] Lymphocyte abs 2.5 0.8 - 3.3 K/cumm [facility] Monocyte abs 0.7 0.2 - 0.8 K/cumm [facility] Eosinophil abs 0.4 0.0 - 0.5 K/cumm [facility] Basophil abs 0.1 0.0 - 0.1 K/cumm [facility] Neutrophil pct 55.5 % [facility] Comment: Interpretive Data Percent cell count reference ranges are not reported, since discordance with absolute values may lead to misinterpretation of CBC data. Current Interpretive Data was last revised on 2018. Imm gran pct 0.2 % [facility] Comment: Interpretive Data Percent cell count reference ranges are not reported, since discordance with absolute values may lead to misinterpretation of CBC data. Current Interpretive Data was last revised on 2018. Lymphocyte pct 30.4 % [facility] Comment: Interpretive Data Percent cell count reference ranges are not reported, since discordance with absolute values may lead to misinterpretation of CBC data. Current Interpretive Data was last revised on 2018. Monocyte pct 8.3 % [facility] Comment: Interpretive Data Percent cell count reference ranges are not reported, since discordance with absolute values may lead to misinterpretation of CBC data. Current Interpretive Data was last revised on 2018. Eosinophil pct 4.9 % [facility] Comment: Interpretive Data Percent cell count reference ranges are not reported, since discordance with absolute values may lead to misinterpretation of CBC data. Current Interpretive Data was last revised on 2018. Basophil pct 0.7 % [facility] Comment: Interpretive Data Percent cell count reference ranges are not reported, since discordance with absolute values may lead to misinterpretation of CBC data. Current Interpretive Data was last revised on 2018. Blood specimen (specimen) 07/06/2019 3:47 PM CDT 07/06/2019 4:05 PM CDT Christiano Heller MD LAB BLOOD ORDERABLES Carrie khanna Result [facility] [address] [place] [address] * (ABNORMAL) Lipid panel (07/06/2019 3:47 PM CDT) Cholesterol 204(H) 30 - 199 mg/dL [facility] Comment: Interpretive Data Ages < or [...] revised on 2018. Triglycerides 101 <=149 mg/dL [facility] Comment: Interpretive Data Ages < [...] revised on 2018. HDL 69 >=40 mg/dL [facility] Comment: Interpretive Data Ages < [...] on 2018. LDL, calculated 115 <=129 mg/dL [facility] Comment: Interpretive Data Ages < [...] revised on 2018. Non-HDL Cholesterol 136 mg/dL [facility] Comment: Interpretive Data Ages < [...] last revised on 2018. Chol/HDL ratio 3 [facility] Blood specimen (specimen) 07/06/2019 3:47 PM CDT 07/06/2019 4:05 PM CDT us Christiano Heller MD LAB BLOOD ORDERABLES Carrie khanna Result [facility] [address] [place] [address] * (ABNORMAL) Vitamin D 25 hydroxy (07/06/2019 3:47 PM CDT) Vitamin D 25-OH 16(L) 30 - 80 ng/mL [facility] Blood specimen (specimen) 07/06/2019 3:47 PM CDT 07/06/2019 4:05 PM CDT Christiano Heller MD LAB BLOOD ORDERABLES Carrie l Result Performing Organization Address [facility] de Phone Number [address] [address] * HIV 1/2 Antibody plus p24 Antigen (07/06/2019 3:47 PM CDT) [facility] HIV 1/2 ab + p24 ag Nonreactive Nonreactive [facility] Comment: Nonreactive for HIV-1 antigen and HIV-1/HIV-2 antibodies. No laboratory evidence of HIV infection. If acute HIV infection is suspected, consider testing for HIV-1 RNA. Blood specimen (specimen) 07/06/2019 3:47 PM CDT 07/06/2019 4:05 PM CDT Christiano Heller MD LAB MICROBIOLOGY - GENERA L ORDERABLES Final Result Performing Organization Address [facility] de Phone Number [address] [address] * RPR (07/06/2019 3:47 PM CDT) [facility] RPR Nonreactive Nonreactive [facility] Blood specimen (specimen) 07/06/2019 3:47 PM CDT 07/06/2019 4:05 PM CDT Christiano Heller MD LAB MICROBIOLOGY - GENERA L ORDERABLES Final Result Performing Organization Address [facility] de Phone Number [address] [address] * CBC with auto differential (07/06/2019 3:47 PM CDT) [facility] WBC 8.2 3.8 - 9.9 K/cumm [facility] Hgb 15.3 13.0 - 17.5 g/dL [facility] Hct 44.3 38.9 - 50.3 % [facility] Plt 236 150 - 400 K/cumm [facility] MPV 9.6 9.1 - 12.3 fL [facility] RBC 4.82 4.30 - 5.80 M/cumm [facility] MCV 91.9 81.3 - 96.4 fL [facility] MCH 31.7 27.1 - 33.3 pg [facility] MCHC 34.5 32.3 - 35.7 g/dL [facility] RDW CV 12.0 11.1 - 14.9 % [facility] RDW SD 40.3 35.7 - 48.1 fL [facility] NRBC abs 0.00 0.00 - 0.01 K/cumm [facility] Blood specimen (specimen) 07/06/2019 3:47 PM CDT 07/06/2019 4:05 PM CDT Christiano Heller MD LAB BLOOD ORDERABLES Carrie l Result [facility] [address] [place] [address] documented in this encounter Visit Diagnoses Diagnosis Healthcare maintenance Vitamin D deficiency documented in this encounter Care Teams Field Artillery Basic Relationship Specialty Start Date End Date Teresita Painting MD PCP - General Obstetrics and Gynecology 07/26/18 9/04/18 documented as of this encounter
--- OUTSIDE RECORDS SUMMARY | 2024-11-04 22:17 | XMS_ITS | Encounter Summary ---
Author Organization [facility] Facility Care Team Providers Care Doctor Of Dental Medicine Name Role Phone Unavailable Primary Care Provider Unavailabl e Encounter Details Date Type Department Care Team (Late st Contact Info) Description 12/29/2012 10:17 AM CARD SCRAPER - 12/29/2012 4:00 PM CARD SCRAPER Hospital Encounter [facility] Christiano Heller MD [address] [place] [address] Acute pancreatitis; Essential hypertension; Sprain of rotator cuff capsule; Tobacco use disorder; Vitamin D deficiency; Unemployed Social History Tobacco Use Types Packs/Day Years Used Date Smoking Tobacco: Never Assessed Sex and Gender Information Value Date Recorded Sex Assigned at Not on file Legal Sex Male 2:37 PM CARD SCRAPER Gender Identity Not on file Sexual Orientation Not on file documented as of this encounter Plan of Treatment Not on file documented as of this encounter Procedures Procedure Name Priority Date/Time Associated Diagnosis Comments PLASMA BASIC METABOLIC PANEL Routine 12/29/2012 5:54 AM CARD SCRAPER DISCHARGE LABORATORY CUMULATIVE REPORT Routine 12/29/2012 12:00 AM CARD SCRAPER documented in this encounter Results * Plasma basic metabolic panel (12/29/2012 5:54 AM CARD SCRAPER) Sodium 140 135 - 145 mmol/L HISTORICAL RESULTS K, pl 3.8 3.3 - 4.9 mmol/L HISTORICAL RESULTS Chloride 100 97 - 110 mmol/L HISTORICAL RESULTS CO2 31 22 - 32 mmol/L HISTORICAL RESULTS A. gap 9 0 - 16 mmol/L HISTORICAL RESULTS Glucose 80 65 - 199 mg/dl HISTORICAL RESULTS BUN 13 8 - 25 mg/dl HISTORICAL RESULTS Creatinine 0.91 0.70 - 1.30 mg/dl HISTORICAL RESULTS Calcium 10.0 8.6 - 10.3 mg/dl HISTORICAL RESULTS Plasma 12/29/2012 5:54 AM CARD SCRAPER Narrative HISTORICAL RESULTS - 12/29/2012 6:51 AM CARD SCRAPER LAB Frequency Standing Order? No Expiration Date: us Huber Chase MD LAB BLOOD ORDERABLES Final Result HISTORICAL RESULTS * Discharge Laboratory Cumulative Report (12/29/2012 12:00 AM CARD SCRAPER) 12/29/2012 Narrative HISTORICAL RESULTS - 12/29/2012 3:28 PM CARD SCRAPER ?[facility] ?Department of Laboratories ? [address] [facility] [address] ? [place] [address] Patient Name: ??YARIEL HILL [facility] Rec Number: [id number] Fin Number: ?[id number] Date: ?1970 Sex/Age: ? Male 42 years Admit Date: ?12/29/2012 Discharge Date: 12/29/2012 Doctor: ?[facility] , [address] Facility: ?[facility] Location: ?[place] Chart Printed: 12/29/2012 15:28 ?? * Abnormal ?? C Critical ?? f Footnote ?? ^ Corrected ?? L Low ?? H High ? i Interp Data ?? @ Reference Lab ? Chart Type:Periodic ? SELECTED ELECTROLYTES ?Test: Sodium ? Plasma Potassium ??Chloride ? Reference: [135-145] ??[3.3-4.9] ? [97-110] ? Units: mmol/L ? mmol/L ?mmol/L 12/29/2012 ?? 11:54:00 ?? 140 ?3.8 ? 100 12/29/2012 11:54:00 ??Basic Met Plas: LAB Frequency Standing Order? No Expiration Date: ?Test: Total CO2 ??Anion Gap ? Reference: [22-32] ?[0-16] ? Units: mmol/L ? mmol/L 12/29/2012 ?? 11:54:00 ?? 31 ? 9 ? STANDARD BLOOD CHEMISTRY ?Test: BUN ? Creatinine ?? Glucose ?? Total Calcium ? Reference: [8-25] ??[0.70-1.30] ??[65-199] ??[8.6-10.3] ? Units: mg/dL ?? mg/dL ?mg/dL ? mg/dL 12/29/2012 ?? 11:54:00 ?? 13 ?0.91 ? 80 ?10.0 12/29/2012 11:54:00 ??Basic Met Plas: LAB Frequency Standing Order? No Expiration Date: us Historical Provider LAB BLOOD ORDERABLES Carrie khanna Result Performing Organization Address City/State/[facility] Co de Phone Number HISTORICAL RESULTS documented in this encounter Visit Diagnoses Diagnosis Acute pancreatitis Essential hypertension Unspecified essential hypertension Sprain of rotator cuff capsule Rotator cuff (capsule) sprain and strain Tobacco use disorder Vitamin D deficiency Unemployed Unemployment documented in this encounter
--- OUTSIDE RECORDS SUMMARY | 2024-11-04 22:17 | XMS_ITS | Encounter Summary ---
Author Organization [facility] Facility Care Team Providers Care Construction Equipment Operator Name Role Phone Unavailable Primary Care Provider Unavailabl e Encounter Details Date Type Department Care Team (Late st Contact Info) Description 10/12/2013 10:00 AM SHOP SUPERVISOR - 10/12/2013 4:00 PM [facility] Hospital [facility]counter [facility] MD [address] [place] [address] Cervicalgia; Pain in joint, shoulder region; Essential hypertension; Acute pancreatitis; Encounter for long-term (current) use of other medications Social History Tobacco Use Types Packs/Day Years Used Date Smoking Tobacco: Never Assessed Sex and Gender Information Value Date Recorded Sex Assigned at Not on file Legal Sex Male 2:37 PM SHOP SUPERVISOR Gender Identity Not on file Sexual Orientation Not on file documented as of this encounter Plan of Treatment Not on file documented as of this encounter Visit Diagnoses Diagnosis Cervicalgia Pain in joint, shoulder region Essential hypertension Unspecified essential hypertension Acute pancreatitis Encounter for long-term (current) use of other medications documented in this encounter
--- OUTSIDE RECORDS SUMMARY | 2024-11-04 22:17 | XMS_ITS | Encounter Summary ---
Author Organization [facility] Facility Care Team Providers Care Press And Blow Machine Tender Name Role Phone Unavailable Primary Care Provider Unavailabl e Encounter Details Date Type Department Care Team (Late st Contact Info) Description 12/20/2014 5:14 PM AUTOMOBILE BRAKES BONDER - 12/20/2014 11:59 PM AUTOMOBILE BRAKES BONDER Hospital Encounter [facility] Rocco Brambila MD [address] [place] [address] Social History Tobacco Use Types Packs/Day Years Used Date Smoking Tobacco: Never Assessed Sex and Gender Information Value Date Recorded Sex Assigned at Not on file Legal Sex Male 2:37 PM AUTOMOBILE BRAKES BONDER Gender Identity Not on file Sexual Orientation Not on file documented as of this encounter Plan of Treatment Not on file documented as of this encounter Procedures Procedure Name Priority Date/Time Associated Diagnosis Comments XR CONSULT OF OUTSIDE FILMS (PEDS ONLY) Routine 12/20/2014 6:22 PM AUTOMOBILE BRAKES BONDER documented in this encounter Results * XR Interpretation Of Outside Films (12/20/2014 6:22 PM AUTOMOBILE BRAKES BONDER) Anatomical Region Laterality Modality N/A Radiographic Vashti ging 12/20/2014 6:22 PM AUTOMOBILE BRAKES BONDER Narrative 12/21/2014 11:32 AM AUTOMOBILE BRAKES BONDER SP CASPER M.D. SP CASPER, FINAL REPORT The radiology attending physician has personally reviewed this study, and has reviewed and/or edited this written report and agrees with it. ACC# ??Date Time ??Exam [id number] Dec 20, 2014 18:22:00 [id number] [facility] Body CT Consult ACC# ??Date Time ??Exam [id number] Dec 20, 2014 18:22:00 [id number] [facility] Body CT Consult EXAMINATION: ?? RADIOLOGY CONSULTATION ON OUTSIDE IMAGING STUDY STUDY INITIALLY PERFORMED: ??On 12/11/[address] [facility]. TYPE OF STUDY: Multiple CT images of the abdomen and pelvis with intravenous and oral contrast are provided at the time of this interpretation. The protocol was adequate to address the clinical question. The outside final report was provided at the time of this second opinion. TYPE OF CONSULTATION: ??Consult on outside imaging study with images submitted through [facility] DATE OF CONSULTATION: 12/21/2014 REASON FOR CONSULTATION: History of alcohol induced pancreatitis and pancreatic pseudocyst COMPARISON: Multiple abdominal MRIs, most recently performed on 04/09/2014 FINDINGS: The imaged lung bases are clear. No pleural effusion or pneumothorax. Imaged heart is normal. No pericardial effusion. There is mild fatty infiltration adjacent to the falciform ligament. Otherwise, the liver demonstrates homogeneous parenchymal enhancement with no focal lesions. The gallbladder and spleen are normal. No intra or extrahepatic biliary ductal dilatation. There is unchanged atrophy of the pancreatic body and tail with mild unchanged pancreatic duct dilatation compatible with prior episodes of pancreatitis. There has been interval increase in size of well-circumscribed cystic lesion in the pancreatic head measuring 4.0 x 3.6 x 2.8 cm with no nodular enhancement. There is minimal peripancreatic fat stranding. The kidneys and adrenal glands are normal. The stomach, small bowel, colon are normal with no evidence of obstruction or inflammation. The appendix is partially visualized and is normal. There is mild circumferential thickening of the urinary bladder wall, accounting for degree of distention. There is no free intra-abdominal or pelvic fluid or air. There are atherosclerotic calcifications of the abdominal aorta and its branches. There is no lymphadenopathy. Bone windows demonstrate no osteolytic or osteoblastic lesions. ?? IMPRESSION: 1. Findings compatible with prior episodes of pancreatitis with interval increase in size of a cystic lesion within the pancreatic head. Given history of alcohol induced pancreatitis, this lesion most likely represents a pancreatic pseudocyst. Increase in size of the lesion could be secondary to recent, but currently resolved, episode of pancreatitis. 2. Mild circumferential urinary bladder wall thickening which could be secondary to cystitis. Clinical correlation is suggested. The findings, conclusions and recommendations within this report do not replace the initial findings, conclusions ??and recommendations made at the facility where the study was performed based upon the imaging and clinical condition at that time. ??Comparison with the prior report and clinical history is necessary. ??The provided images may or may not represent the [facility] source data set and thus may contain changes that may lower the accuracy of this second-opinion interpretation. ?? Requested By: Dictated By: ?? SP CASPER, ?? on Dec 21 2014 10:45A This document has been electronically signed by: SP CASPER M.D. on Dec 21 2014 11:32A [id number] Procedure Note Provider, MD Rhett - 02/22/2017 SP CASPER M.D. SP CASPER, FINAL REPORT The radiology attending physician has personally reviewed this study, and has reviewed and/or edited this written report and agrees with it. ACC# Date Time Exam [id number] Dec 20, 2014 18:22:00 [id number] [facility] Body CT Consult ACC# Date Time Exam [id number] Dec 20, 2014 18:22:00 [id number] [facility] Body CT Consult EXAMINATION: RADIOLOGY CONSULTATION ON OUTSIDE IMAGING STUDY STUDY INITIALLY PERFORMED: On 12/11/[address] [facility]. TYPE OF STUDY: Multiple CT images of the abdomen and pelvis with intravenous and oral contrast are provided at the time of this interpretation. The protocol was adequate to address the clinical question. The outside final report was provided at the time of this second opinion. TYPE OF CONSULTATION: Consult on outside imaging study with images submitted through [facility] DATE OF CONSULTATION: 12/21/2014 REASON FOR CONSULTATION: History of alcohol induced pancreatitis and pancreatic pseudocyst COMPARISON: Multiple abdominal MRIs, most recently performed on04/09/2014 FINDINGS: The imaged lung bases are clear. No pleural effusion or pneumothorax. Imaged heart is normal. No pericardial effusion. There is mild fatty infiltration adjacent to the falciform ligament. Otherwise, the liver demonstrates homogeneous parenchymal enhancement with no focal lesions. The gallbladder and spleen are normal. No intra or extrahepatic biliary ductal dilatation. There is unchanged atrophy of the pancreatic body and tail with mild unchanged pancreatic duct dilatation compatible with prior episodes of pancreatitis. There has been interval increase in size of well-circumscribed cystic lesion in the pancreatic head measuring 4.0 x 3.6 x 2.8 cm with no nodular enhancement. There is minimal peripancreatic fat stranding. The kidneys and adrenal glands are normal. The stomach, small bowel, colon are normal with no evidence of obstruction or inflammation. The appendix is partially visualized and is normal. There is mild circumferential thickening of the urinary bladder wall, accounting for degree of distention. There is no free intra-abdominal or pelvic fluid or air. There are atherosclerotic calcifications of the abdominal aorta and its branches. There is no lymphadenopathy. Bone windows demonstrate no osteolytic or osteoblastic lesions. IMPRESSION: 1. Findings compatible with prior episodes of pancreatitis with interval increase in size of a cystic lesion within the pancreatic head. Given history of alcohol induced pancreatitis, this lesion most likely represents a pancreatic pseudocyst. Increase in size of the lesion could be secondary to recent, but currently resolved, episode of pancreatitis. 2. Mild circumferential urinary bladder wall thickening which could be secondary to cystitis. Clinical correlation is suggested. The findings, conclusions and recommendations within this report do not replace the initial findings, conclusions and recommendations made at the facility where the study was performed based upon the imaging and clinical condition at that time. Comparison with the prior report and clinical history is necessary. The provided images may or may not represent the [facility] source data set and thus may contain changes that may lower the accuracy of this second-opinion interpretation. Requested By: Dictated By: SP CASPER on Dec 21 2014 10:45A This document has been electronically signed by: SP CASPER M.D. on Dec 21 2014 11:32A [id number] [place] Historical Provider MD MELÉNDEZ XR PROCEDURES Final R esult documented in this encounter Visit Diagnoses Not on filedocumented in this encounter
--- OUTSIDE RECORDS SUMMARY | 2024-11-04 22:17 | XMS_ITS | Encounter Summary ---
Author Organization [facility] Facility Care Team Providers Care Labor Specialist Name Role Phone Unavailable Primary Care Provider Unavailabl e Encounter Details Date Type Department Care Team (Late st Contact Info) Description 03/10/2016 1:13 PM CDT - 03/10/2016 4:00 PM CDT [facility] [address] [address] Essential (primary) hypertension; Cyst of pancreas; Cigarette nicotine dependence, uncomplicated; Acute pharyngitis; Vitamin D deficiency Social History Tobacco Use Types Packs/Day Years Used Date Smoking Tobacco: Never Assessed Sex and Gender Information Value Date Recorded Sex Assigned at Not on file 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 Gender Identity Not on file Sexual Orientation Not on file documented as of this encounter Plan of Treatment Not on file documented as of this encounter Procedures Procedure Name Priority Date/Time Associated Diagnosis Comments SERUM THYROID-STIMULATING HORMONE (TSH) Routine 03/10/2016 2:51 PM CDT SERUM LIPID PANEL Routine 03/10/2016 2:5 1 PM CDT SERUM HUMAN IMMUNODEFICIENCY VIRUS (HIV) 1/2 AB + P24 AG Routine 03/10/2016 2:51 PM CDT SERUM 25-HYDROXYCHOLECALCIFERO L (VITAMIN D) Routine 03/10/2016 2:51 PM CDT PLASMA COMPREHENSIVE METABOLIC PANEL Routine 03/10/2016 2:51 PM CDT BLOOD HEMOGLOBIN A1C Routine 03/10/2016 2:51 PM CDT BLOOD CELL COUNT (CBC) Routine 6 2:51 PM CDT BLOOD CELL MORPHOLOGIC EXAM Routine 03/10/2016 2:51 PM CDT DISCHARGE LABORATORY CUMULATIVE REPORT 03/10/2016 documented in this encounter Results * Serum thyroid-stimulating hormone (TSH) (03/10/2016 2:51 PM CDT) TSH 2.16 0.30 - 4.20 mcIUnits/m l HISTORICAL RESULTS Comment: Interpretive Data Hyperthyroid: ??<0.1 mcIUnit/mL Hypothyroid: ??>12.0 mcIUnit/mL Current interpretive data was last revised on 00. Serum 03/10/2016 2:51 PM CDT Home Hoskins MD LAB BLOOD ORDERABLES Carrie l Result HISTORICAL RESULTS * (ABNORMAL) Plasma comprehensive metabolic panel (03/10/2016 2:51 PM CDT) Sodium 140 135 - 145 mmol/L HISTORICAL RESULTS K, pl 3.6 3.3 - 4.9 mmol/L HISTORICAL RESULTS Chloride 102 97 - 110 mmol/L HISTORICAL RESULTS CO2 26 22 - 32 mmol/L HISTORICAL RESULTS A. gap 12 2 - 15 mmol/L HISTORICAL RESULTS Glucose 83 70 - 199 mg/dl HISTORICAL RESULTS BUN 10 8 - 25 mg/dl HISTORICAL RESULTS Creatinine 0.90 0.80 - 1.30 mg/dl HISTORICAL RESULTS Calcium 10.0 8.5 - 10.3 mg/dl HISTORICAL RESULTS Protein, pl 7.9 6.5 - 8.5 g/dl HISTORICAL RESULTS Alb 5.1(H) 3.5 - 5.0 g/dl HISTORICAL RESULTS Bilirubin 0.5 0.1 - 1.2 mg/dl HISTORICAL RESULTS Alk phos 66 40 - 130 Units/L HISTORICAL RESULTS AST 22 10 - 50 Units/L HISTORICAL RESULTS ALT 11 7 - 55 Units/L HISTORICAL RESULTS Plasma 03/10/2016 2:51 PM CDT Home Hoskins MD LAB BLOOD ORDERABLES Carrie l Result Performing Organization Address [facility] Co de Phone Number HISTORICAL RESULTS * (ABNORMAL) Serum 25-hydroxycholecalciferol (vitamin D) (03/10/2016 2:51 PM CDT) 25-OH Vit D 8(L) 30 - 100 ng/ml HISTORICAL RESULTS Serum 03/10/2016 2:51 PM CDT Home Hoskins MD LAB BLOOD ORDERABLES Carrie l Result Performing Organization Address [facility] de Phone Number HISTORICAL RESULTS * Serum lipid panel (03/10/2016 2:51 PM CDT) Cholesterol 164 30 - 200 mg/dl HISTORICAL RESULTS Comment: Interpretive Data Desirable: ?<200 mg/dL Borderline high: ??200-239 mg/dL High: ? > or = 240 mg/dL Literature Reference: National Cholesterol Education Program (NCEP) Expert Panel on Detection, Evaluation, and Treatment of High Blood Cholesterol in Adults (Adult Treatment Panel III). ??Circulation 2004; 110:227. Current interpretive data was last revised on 2015. Triglycerides 54 0 - 150 mg/dl HISTORICAL RESULTS Comment: Interpretive Data Desirable: ? < 150 mg/dL Borderline High: ? 150 - 199 mg/dL High: ?200 - 499 mg/dL Very High: ? > or = 499 mg/dL Literature Reference: See Cholesterol Current interpretive data was last revised on 2015. HDL 55 >=40 mg/dl HISTORICA L RESULTS Comment: Interpretive Data Less than 40 mg/dL - low; A major risk factor for heart disease. Greater than or equal to 60 mg/dL - High; ??considered protective of heart disease. Literature Reference: See Cholesterol Current interpretive data was last revised on 2015. LDL 98 10 - 129 mg/dl HISTORICAL RESULTS Comment: Interpretive Data Optimal: ? < 100 mg/dL Near Optimal: ?100 - 129 mg/dL Borderline High: ?? 130 - 159 mg/dL High: ?160 - 189 mg/dL Very high: ? > or = 190 mg/dL Literature Reference: See Cholesterol Current interpretive data was last revised on 2015. Non-HDL cholesterol, calculated 109 mg/dl HISTORICAL RESULTS Comment: Interpretive Data When triglycerides are >200 mg/dL, non-HDL C is a secondary target of therapy, with a goal 30 mg/dL higher than the identified LDL-C goal. Reference: ??See Cholesterol Reference. Current interpretive data was last revised 2015. Serum 03/10/2016 2:51 PM CDT Home Hoskins MD LAB BLOOD ORDERABLES Carrie l Result Performing Organization Address [facility] de Phone Number HISTORICAL RESULTS * Serum Human Immunodeficiency virus (HIV) 1/2 ab + p24 ag (03/10/2016 2:51 PM CDT) Pathologist [facility] HIV 1/2 ab p24 ag Nonreactive Nonreactive HISTORICAL RESULTS Serum 03/10/2016 2:51 PM CDT Home Hoskins MD LAB BLOOD ORDERABLES Carrie l Result Performing Organization Address [facility] de Phone Number HISTORICAL RESULTS * Blood cell count (CBC) (03/10/2016 2:51 PM CDT) Pathologist [facility] WBC 7.9 3.8 - 9.9 K/cumm HISTORICAL RESULTS RBC 4.53 4.30 - 5.80 M/cumm HISTORICAL RESULTS Hgb 14.6 13.0 - 17.5 g/dl HISTORICAL RESULTS Hct 42.0 38.9 - 50.3 % HISTORICAL RESULTS MCV 92.7 81.3 - 96.4 fl HISTORICAL RESULTS MCH 32.2 27.1 - 33.3 pg HISTORICAL RESULTS MCHC 34.8 32.3 - 35.7 g/dl HISTORICAL RESULTS Rdw 11.8 11.1 - 14.9 % HISTORICAL RESULTS RDW 40.4 35.7 - 48.1 fl HISTORICAL RESULTS Platelets 198 150 - 400 K/cumm HISTORICAL RESULTS MPV 10.2 9.1 - 12.3 fl HISTORICAL RESULTS NRBC 0.0 0.0 - 0.2 % HISTORIC AL RESULTS NRBC, abs 0.00 0.00 - 0.01 K/cumm HISTORICAL RESULTS Blood specimen (specimen) 03/10/2016 2:51 PM CDT Home Hoskins MD LAB BLOOD ORDERABLES Carrie l Result Performing Organization Address [facility] de Phone Number HISTORICAL RESULTS * Blood cell morphologic exam (03/10/2016 2:51 PM CDT) Neutrophils 59.6 % HISTORIC AL RESULTS Immature granulocytes 0.4 % HISTORICAL RESULTS Lymphocytes 31.9 % HISTORIC AL RESULTS Monos 6.5 % HISTORICAL RESULTS Eosinophils 1.1 % HISTORIC AL RESULTS Basophils 0.5 % HISTORICAL RESULTS Neutrophils, abs 4.7 1.7 - 6.5 K/cumm HISTORICAL RESULTS Immature granulocyte, abs 0.0 0.0 - 0.1 K/cumm HISTORICAL RESULTS Lymphocytes, abs 2.5 0.8 - 3.3 K/cumm HISTORICAL RESULTS Monocytes, absolute 0.5 0.2 - 0.8 K/cumm HISTORICAL RESULTS Eosinophils, abs 0.1 0.0 - 0.5 K/cumm HISTORICAL RESULTS Basophils, abs 0.0 0.0 - 0.1 K/cumm HISTORICAL RESULTS Blood specimen (specimen) 03/10/2016 2:51 PM CDT Home Hoskins MD LAB BLOOD ORDERABLES Carrie l Result Performing Organization Address [facility] de Phone Number HISTORICAL RESULTS * Blood hemoglobin A1C (03/10/2016 2:51 PM CDT) Hgb A1C 5.3 4.0 - 6.0 % HISTORICAL RESULTS Estimated average glucose 105 mg/dl HISTORICAL RESULTS Comment: The ADA recommends reporting an estimated Average Glucose (eAG) with all Hemoglobin A1c results using the equation derived from a study of 507 normal and diabetic adults. ??Minority populations were underrepresented and children were not included. ??(Diabetes Care 31:2682-6194, 2007). ??The eAG is not equivalent to a fasting glucose. Blood specimen (specimen) 03/10/2016 2:51 PM CDT Home Hoskins MD LAB BLOOD ORDERABLES Carrie l Result HISTORICAL RESULTS * DISCHARGE LABORATORY CUMULATIVE REPORT (03/10/2016) Narrative 03/10/2016 Ordered by an unspecified provider. Historical Provider LAB BLOOD ORDERABLES Carrie l Result documented in this encounter Visit Diagnoses Diagnosis Essential (primary) hypertension Unspecified essential hypertension Cyst of pancreas Cyst and pseudocyst of pancreas Cigarette nicotine dependence, uncomplicated Acute pharyngitis Vitamin D deficiency documented in this encounter
--- OUTSIDE RECORDS SUMMARY | 2024-11-04 22:17 | XMS_ITS | Encounter Summary ---
Author Organization [facility] Facility Care Team Providers Care Casting And Pasting Supervisor Name Role Phone Unavailable Primary Care Provider Unavailabl e Encounter Details Date Type Department Care Team (Latest Contact Info) Description 11/21/2012 10:33 AM SALES ACTIVITY MANAGER - 11/21/2012 4:00 PM SALES ACTIVITY MANAGER Hospital Encounter [facility] Christiano Heller MD [address] [address] Abdominal pain; Pain in joint, shoulder region; Tobacco use disorder; Alcohol abuse; Need for Streptococcus pneumoniae and influenza vaccination; Screening for lipoid disorders; Screening for diabetes mellitus; Special screening examination for other specified viral diseases; Unemployed Social History Tobacco Use Types Packs/Day Years Used Date Smoking Tobacco: Never Assessed Sex and Gender Information Value Date Recorded Sex Assigned at Not on file Legal Sex Male 2:37 PM SALES ACTIVITY MANAGER Gender Identity Not on file Sexual Orientation Not on file documented as of this encounter Plan of Treatment Not on file documented as of this encounter Visit Diagnoses Diagnosis Abdominal pain Abdominal pain, unspecified site Pain in joint, shoulder region Tobacco use disorder Alcohol abuse Nondependent alcohol abuse, unspecified drinking behavior Need for Streptococcus pneumoniae and influenza vaccination Screening for lipoid disorders Screening for diabetes mellitus Special screening examination for other specified viral diseases Unemployed Unemployment documented in this encounter
--- OUTSIDE RECORDS SUMMARY | 2024-11-04 22:17 | XMS_ITS | Encounter Summary ---
Author Organization [facility] Facility Care Team Providers Care Editorial Clerk Name Role Phone Unavailable Primary Care Provider Unavailabl e Encounter Details Date Type Department Care Team (Latest Contact Info) Description 07/05/2013 11:00 AM CDT - 07/05/2013 4:00 PM CDT Hospital Encounter [facility] Modesto Durham MD [address] [place] [address] Pain in joint, shoulder region; Tobacco use disorder; Degeneration of cervical intervertebral disc Social History Tobacco Use Types Packs/Day Years Used Date Smoking Tobacco: Never Assessed Sex and Gender Information Value Date Recorded Sex Assigned at Not on file 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 Gender Identity Not on file Sexual Orientation Not on file documented as of this encounter Plan of Treatment Not on file documented as of this encounter Procedures Procedure Name Priority Date/Time Associated Diagnosis Comments XR SHOULDER 2+ VW Routine 07/05/2013 12: 17 PM CDT documented in this encounter Results * XR Shoulder 2+ Vw (07/05/2013 12:17 PM CDT) Anatomical Region Laterality Modality Shoulder N/A Radiographic Vashti ging 07/05/2013 12:1 7 PM CDT Narrative 07/05/2013 12:20 PM CDT GLADIS HOFF MD, PHD FINAL REPORT ACC# ??Date Time ??Exam [id number] Jul 05, 2013 12:17:00 [id number] Shoulder minimum 2 views R EXAMINATION: ?Right shoulder minimum 2 views HISTORY: ??Right shoulder pain FINDINGS: ??Four view examination of the right shoulder is compared to radiographs from November 13, 2012. The acromioclavicular and glenohumeral joint spaces are normal. Normal alignment no fracture. IMPRESSION: ?? 1. Normal radiographic examination of the right shoulder. Requested By: YAJAIRA ROMO ??M.D. Dictated By: ?? GLADIS HOFF MD, PHD ??on Sep ??2012 12:20P This document has been electronically signed by: GLADIS HOFF MD, PHD on Jul ??2012 12:20P Procedure Note Provider, MD Rhett - 02/22/2017 GLADIS HOFF MD, PHD FINAL REPORT ACC# Date Time Exam [id number] Jul 05, 2013 12:17:00 [id number] Shoulder minimum 2 views R EXAMINATION: Right shoulder minimum 2 views HISTORY: Right shoulder pain FINDINGS: Four view examination of the right shoulder is compared to radiographs from November 13, 2012. The acromioclavicular and glenohumeral joint spaces are normal. Normal alignment no fracture. IMPRESSION: 1. Normal radiographic examination of the right shoulder. Requested By: YAJAIRA ROMO M.D. Dictated By: GLADIS HOFF MD, PHD on Jul 05 2013 12:20P This document has been electronically signed by: GLADIS HOFF MD, PHD on Jul 05 2013 12:20P Historical Provider IMG XR PROCEDURES Final R esult documented in this encounter Visit Diagnoses Diagnosis Pain in joint, shoulder region Tobacco use disorder Degeneration of cervical intervertebral disc documented in this encounter
--- OUTSIDE RECORDS SUMMARY | 2024-11-04 22:17 | XMS_ITS | Encounter Summary ---
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
--- OUTSIDE RECORDS SUMMARY | 2024-11-04 22:17 | XMS_ITS | Encounter Summary ---
Author Organization [facility] Healthcare Address [address] [place] [address] Care Team Providers Care Vice President Of Customer Service Name Role Phone Unavailable Primary Care Provider Unavailabl e Encounter Details Date Type Department Care Team (Latest Contact Info) Description 11/26/2015 4:28 PM L[employer]LL [employer] FIELD TECHNICIAN - 11/26/2015 7:32 PM [employer] FIELD TECHNICIAN Hospital Encounter [facility] Kayy Tom MD [address] [place] [address] Major depressive disorder, single episode (CMS/HCC); Essential (primary) hypertension Social History Tobacco Use Types Packs/Day Years Used Date Smoking Tobacco: Never Assessed Sex and Gender Information Value Date Recorded Sex Assigned at Not on file Legal Sex Male 2:37 PM L[employer]FI[employer] FIELD TECHNICIAN Gender Identity Not on file Sexual Orientation Not on file documented as of this encounter Last Filed Vital Signs Vital Sign Reading Time Taken Comments Blood Pressure 131/82 11/26/2015 4:44 PM [employer] FIELD TECHNICIAN Pulse 84 11/26/2015 4:44 PM LANDFI[employer] FIELD TECHNICIAN Temperature 36.6 ??C (97.9 ??F) 11/26/2015 4:44 PM CS T Respiratory Rate - - Oxygen Saturation 98% 11/26/2015 4:44 PM L[employer] FIELD TECHNICIAN Inhaled Oxygen Concentration - - Weight 59 kg (130 lb) 11/26/2015 4:44 PM LANDFI[employer] FIELD TECHNICIAN Height 170.2 cm (5' 7 ) 11/26/2015 4:44 PM LAND[employer] FIELD TECHNICIAN Body Mass Index 20.36 11/26/2015 4:44 PM [employer] FIELD TECHNICIAN documented in this encounter Plan of Treatment Not on file documented as of this encounter Visit Diagnoses Diagnosis Major depressive disorder, single episode Major depressive disorder, single episode, unspecified Essential (primary) hypertension Unspecified essential hypertension documented in this encounter
--- OUTSIDE RECORDS SUMMARY | 2024-11-04 22:17 | XMS_ITS | Encounter Summary ---
Author Organization 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, [address] [facility], [address] [place] [address], [facility], [address]. HISTORICAL RESULTS Report charted 06/28/2013 HISTORICAL RESULTS Referral specimen, test result [id number] U/L HISTORICAL RESULTS Specimen type PANCREATIC CYST FLUID HISTORICAL RESULTS Test name, chem AMYLASE BODY FLUID HISTORICAL RESULTS Miscellaneous 06/27/2013 11: 08 AM CDT Narrative HISTORICAL RESULTS - 06/28/2013 7:32 AM CDT Test performed at [facility], [address] [facility], [address]. Historical Provider MD LAB BLOOD ORDERABLES Carrie l Result HISTORICAL RESULTS * Referred test (06/27/2013 11:08 AM CDT) Referral lab, chem Test performed at [facility], [address], [address]. HISTORICAL RESULTS Report charted 06/28/2013 HISTORICAL RESULTS Referral specimen, test result 52.49 ng/ml HISTORICAL RESULTS Specimen type PANCREATIC CYST FLUID HISTORICAL RESULTS Test name, chem CEA BODY FLUID HISTORICAL RESULTS Miscellaneous 06/27/2013 11: 08 AM CDT Narrative HISTORICAL RESULTS - 06/28/2013 7:30 AM CDT Test performed at [facility], [address] [facility], [address]. Historical Provider MD LAB BLOOD ORDERABLES Carrie l Result HISTORICAL RESULTS * Cytology (06/27/2013) Narrative 06/27/2013 Ordered by an unspecified provider. Historical Provider MD LAB CYTOLOGY ORDERABLES F inal Result * DISCHARGE LABORATORY CUMULATIVE REPORT (06/27/2013) Narrative 06/27/2013 Ordered by an unspecified provider. us Historical Provider MD LAB BLOOD ORDERABLES Carrie l Result * UPPER ENDOSCOPIC ULTRASONOGRAPHY REPORT (06/27/2013) Anatomical Region Laterality Modality Other Narrative 06/27/2013 Ordered by an unspecified provider. us Historical Provider GI PROCEDURE ORDERABLES F inal Result documented in this encounter Visit Diagnoses Diagnosis Cyst and pseudocyst of pancreas Chronic pancreatitis (CMS/HCC) (HCC) Chronic pancreatitis documented in this encounter
--- OUTSIDE RECORDS SUMMARY | 2024-11-04 22:17 | XMS_ITS | Encounter Summary ---
Author Organization [facility] Facility Care Team Providers Care Director Of Healthcare Systems Name Role Phone Unavailable Primary Care Provider Unavailabl e Encounter Details Date Type Department Care Team (Latest Contact Info) Description 04/05/2013 9:06 AM CDT - 04/05/2013 4:00 PM CDT Hospital Encounter [facility] Chrsitiano Heller MD [address] [place] [address] Acute pancreatitis; Hepatitis C virus infection without hepatic coma; Essential hypertension; Sprain of rotator cuff capsule; Tobacco use disorder; Vitamin D deficiency; Need for prophylactic vaccination with combined nrouagetdc-fwcqhke-sz rtussis (DTP) vaccine Social History Tobacco Use Types Packs/Day Years Used Date Smoking Tobacco: Never Assessed Sex and Gender Information Value Date Recorded Sex Assigned at Not on file 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 Gender Identity Not on file Sexual Orientation Not on file documented as of this encounter Plan of Treatment Not on file documented as of this encounter Procedures Procedure Name Priority Date/Time Associated Diagnosis Comments SERUM HEPATITIS PANEL Routine 04/05/2013 5:11 AM CDT SERUM HEPATITIS C VIRAL RNA, PCR, QUANTITATIVE Routine 04/05/2013 5:11 AM CDT SERUM HEPATITIS C GENOTYPE Routine 04/05/2013 5:11 AM CDT PLASMA COMPREHENSIVE METABOLIC PANEL Routine 04/05/2013 5:11 AM CDT DISCHARGE LABORATORY CUMULATIVE REPORT Routine 04/05/2013 12:00 AM CDT documented in this encounter Results * Serum Hepatitis panel (04/05/2013 5:11 AM CDT) Pathologist [facility] HBV surface ag Negative NEG HISTO RICAL RESULTS HCV ab Negative NEG HISTORICAL RESULTS Comment: Interpretive Data If confirmation is required, call Laboratory Customer Service to request sample to be sent to [facility] for Hepatitis C Virus (HCV) RNA Detection and Quantitation by Real-Time Reverse [employer] Kay Stitcher-PCR (RT-PCR). Current interpretive data was last revised on 2012 HBV core ab, IgM Negative NEG HIS TORICAL RESULTS Comment: Interpretive Data If test is reported as Equivocal, new sample should be drawn for testing. Current interpretive data was last revised on 2008. HAV ab, IgM Negative NEG HISTORIC AL RESULTS Comment: Interpretive Data If test is reported as Equivocal, new sample should be drawn in two weeks for testing. Current interpretive data was last revised on 2008. Serum 04/05/2013 5:11 AM CDT Narrative HISTORICAL RESULTS - 04/05/2013 8:07 AM CDT LAB Frequency Standing Order? No Expiration Date: us Huber Chase MD LAB BLOOD ORDERABLES Final Result HISTORICAL RESULTS * (ABNORMAL) Plasma comprehensive metabolic panel (04/05/2013 5:11 AM CDT) Pathologist [facility] Protein, pl 7.8 6.5 - 8.5 g/dl HISTORICAL RESULTS Sodium 140 135 - 145 mmol/L HISTORICAL RESULTS Alb 4.9 3.6 - 5.0 g/dl HISTORICAL RESULTS K, pl 5.3(H) 3.3 - 4.9 mmol/L HISTORICAL RESULTS Bilirubin 0.3 0.3 - 1.1 mg/dl HISTORICAL RESULTS Chloride 102 97 - 110 mmol/L HISTORICAL RESULTS Alk phos 58 38 - 126 Units/L HISTORICAL RESULTS CO2 31 22 - 32 mmol/L HISTORICAL RESULTS AST 25 11 - 47 Units/L HISTORICAL RESULTS A. gap 7 0 - 16 mmol/L HISTORICAL RESULTS ALT 13 7 - 53 Units/L HISTORICAL RESULTS Glucose 88 65 - 199 mg/dl HISTORICAL RESULTS BUN 14 8 - 25 mg/dl HISTORICAL RESULTS Creatinine 0.95 0.70 - 1.30 mg/dl HISTORICAL RESULTS Calcium 10.0 8.6 - 10.3 mg/dl HISTORICAL RESULTS Plasma 04/05/2013 5:11 AM CDT Narrative HISTORICAL RESULTS - 04/05/2013 6:48 AM CDT LAB Frequency Standing Order? No Expiration Date: Huber Chase MD LAB BLOOD ORDERABLES Final Result Performing Organization Address [facility] de Phone Number HISTORICAL RESULTS * Serum Hepatitis C genotype (04/05/2013 5:11 AM CDT) [facility] HCV genotype Undetected Undetected HISTO RICAL RESULTS Serum 04/05/2013 5:11 AM CDT Narrative HISTORICAL RESULTS - 04/09/2013 5:10 PM CDT LAB Frequency Standing Order? No Expiration Date: Assay failed to detect HCV RNA. This assay is not intended for HCV RNA detection purposes. Testing was done using the [employer] HCV Genotype II Assay. For research use only. Test Performed by: [place] [address] Contract Administrative Assistant: Denny Lara III, M.D. Huber Chase MD LAB BLOOD ORDERABLES Final Result Performing Organization Address [facility] Phone Number HISTORICAL RESULTS * Serum Hepatitis C viral RNA, PCR, quantitative (04/05/2013 5:11 AM CDT) [facility] HCV PCR, quant Undetected Undetected IUnits/ml HISTORICAL RESULTS Comment: Result in log IU/mL is Undetected. The quantification range of this assay is 43 IU/mL to 69,000,000 IU/mL (1.63 log IU/mL to 7.84 log IU/mL). Testing was performed by the [employer] AmpliPrep/[employer] TaqMan HCV Test ([employer] Test Performed by: [place] [address] Contract Administrative Assistant: Denny Lara III, M.D. Serum 04/05/2013 5:11 AM CDT Narrative HISTORICAL RESULTS - 04/06/2013 4:15 PM CDT LAB Frequency Standing Order? No Expiration Date: us Huber Chase MD LAB BLOOD ORDERABLES Final Result HISTORICAL RESULTS * Discharge Laboratory Cumulative Report (04/05/2013 12:00 AM CDT) 04/05/2013 Narrative HISTORICAL RESULTS - 04/10/2013 3:20 AM CDT ?[facility] ?Department of Laboratories ? [address] [facility] [place] ? [place], [place] [address] Patient Name: ??YARIEL HILL Aleena Med Rec Number: [id number] Fin Number: ?[id number] Date: ?1970 Sex/Age: ? Male 42 years Admit Date: ?04/05/2013 Discharge Date: 04/05/2013 Doctor: ?[facility] , [facility] Facility: ?[facility] Location: ?[facility] Chart Printed: 04/10/2013 03:20 ?? * Abnormal ?? C Critical ?? f Footnote ?? ^ Corrected ?? L Low ?? H High ? i Interp Data ?? @ Reference Lab ? Chart Type:Periodic ?HEPATITIS TESTS ?Test: HCV Genotype ? Reference: [Undetected] ? Units: 04/05/2013 ?? 10:11:00 ?? Undetected ??f 04/05/2013 10:11:00 ??HepC Genotype: LAB Frequency Standing Order? No Expiration Date: 04/05/2013 10:11:00 ??HCV Genotype: Assay failed to detect HCV RNA. This assay is not intended for HCV RNA detection purposes. Testing was done using the [employer] HCV Genotype II Assay. For research use only. Test Performed by: [place] [address] Contract Administrative Assistant: Denny Lara III, M.D. us Historical Provider LAB BLOOD ORDERABLES Carrie khanna Result HISTORICAL RESULTS documented in this encounter Visit Diagnoses Diagnosis Acute pancreatitis Hepatitis C virus infection without hepatic coma Essential hypertension Unspecified essential hypertension Sprain of rotator cuff capsule Rotator cuff (capsule) sprain and strain Tobacco use disorder Vitamin D deficiency Need for prophylactic vaccination with combined otvujojxxz-zagirbi-spqshvwgz (DTP) vaccine documented in this encounter
--- OUTSIDE RECORDS SUMMARY | 2024-11-04 22:17 | XMS_ITS | Encounter Summary ---
Author Organization [facility] Facility Care Team Providers Care Universal Branch Consultant Name Role Phone Unavailable Primary Care Provider Unavailabl e Encounter Details Date Type Department Care Team (Late st Contact Info) Description 09/18/2013 - 09/18/2013 11:59 PM BURRITO MAKER Hospital Encounter [facility] Rocco Brambila MD [address] [place] [address] Abdominal pain; Cyst and pseudocyst of pancreas Social History Tobacco Use Types Packs/Day Years Used Date Smoking Tobacco: Never Assessed Sex and Gender Information Value Date Recorded Sex Assigned at Not on file 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 Gender Identity Not on file Sexual Orientation Not on file documented as of this encounter Plan of Treatment Not on file documented as of this encounter Procedures Procedure Name Priority Date/Time Associated Diagnosis Comments MRI ABDOMEN W WO CONTRAST Routine 09/18/2013 1:54 PM BURRITO MAKER BLOOD CREATININE, POINT OF CARE Routine 09/18/2013 12:51 PM BURRITO MAKER DISCHARGE LABORATORY CUMULATIVE REPORT Routine 09/18/2013 12:00 AM BURRITO MAKER documented in this encounter Results * MRI Abdomen WWO Contrast (09/18/2013 1:54 PM BURRITO MAKER) Anatomical Region Laterality Modality Body N/A Magnetic Resonan ce 09/18/2013 1:54 PM BURRITO MAKER Narrative 09/18/2013 4:19 PM BURRITO MAKER GUSTAVO SANTOS M.D. STEVIE HUNTER M.D. FINAL REPORT The radiology attending physician has personally reviewed this study, and has reviewed and/or edited this written report and agrees with it. ACC# ??Date Time ??Exam [id number] Sep 18, 2013 13:54:00 [id number] MRI Abdomen wwo contrast EXAMINATION: ?? 1. ??MAGNETIC RESONANCE IMAGING OF THE ABDOMEN WITH AND WITHOUT CONTRAST 2. THREE DIMENSIONAL RECONSTRUCTION OF THE BILIARY TREE AND PANCREATIC DUCT HISTORY: 43-year-old man with prior pancreatitis and cystic lesion identified in the pancreas. TECHNIQUE: Magnetic resonance imaging of the abdomen was performed prior to and following the uneventful administration of intravenous Gadolinium contrast. ??The raw data was processed on the scanner by the technologist for 3 dimensional reconstructions of the intrahepatic ducts, extrahepatics ducts, and pancreatic duct. Protocol: Liver MRCP Estimated GFR: Greater than 60 ml/min/1.73 meters squared Creatinine: 1.0 mg/dL Contrast: Optimark, 11 ml, single dose FINDINGS: MRCP dated 05/15/2013. Liver: Liver parenchyma demonstrates normal enhancement. ??No focal lesions are identified. ?? Hepatic vasculature: Classic hepatic articular anatomy is present. The portal and hepatic veins are patent. Gallbladder: Normal. Pancreas: There is atrophy of the pancreatic body and mild dilatation and undulation of the distal pancreatic duct, compatible with chronic pancreatitis. There has been interval decrease in size of a cystic lesion in the pancreatic head now measuring 2.3 x 2.3 x 2.3 cm (previously 3.8 x 3.5 x 3.7 cm). There is no associated enhancement. No intrahepatic or extrahepatic ductal dilatation is identified. There is no peripancreatic or periportal lymphadenopathy. IMPRESSION: ?? Interval decrease in size of a cystic lesion in the pancreatic head most consistent with a resolving pseudocyst. Requested By: Rocco Moreno ??Jenn Dictated By: ?? STEVIE HUNTER M.D. ??on Sep 18 2013 ??3:37P This document has been electronically signed by: GUSTAVO SANTOS M.D. on Sep 18 2013 ??4:19P Procedure Note Provider, MD Rhett - 02/22/2017 GUSTAVO SANTOS M.D. STEVIE HUNTER M.D. FINAL REPORT The radiology attending physician has personally reviewed this study, and has reviewed and/or edited this written report and agrees with it. [facility]# Date Time Exam [id number] Sep 18, 2013 13:54:00 [id number] MRI Abdomen wwo contrast EXAMINATION: 1. MAGNETIC RESONANCE IMAGING OF THE ABDOMEN WITH AND WITHOUT CONTRAST 2. THREE DIMENSIONAL RECONSTRUCTION OF THE BILIARY TREE AND PANCREATIC DUCT HISTORY: 43-year-old man with prior pancreatitis and cystic lesion identified in the pancreas. TECHNIQUE: Magnetic resonance imaging of the abdomen was performed prior to and following the uneventful administration of intravenous Gadolinium contrast. The raw data was processed on the scanner by the technologist for 3 dimensional reconstructions of the intrahepatic ducts, extrahepatics ducts, and pancreatic duct. Protocol: Liver MRCP Estimated GFR: Greater than 60 ml/min/1.73 meters squared Creatinine: 1.0 mg/dL Contrast: Optimark, 11 ml, single dose FINDINGS: MRCP dated 05/15/2013. Liver: Liver parenchyma demonstrates normal enhancement. No focal lesions are identified. Hepatic vasculature: Classic hepatic articular anatomy is present. The portal and hepatic veins are patent. Gallbladder: Normal. Pancreas: There is atrophy of the pancreatic body and mild dilatation and undulation of the distal pancreatic duct, compatible with chronic pancreatitis. There has been interval decrease in size of a cystic lesion in the pancreatic head now measuring 2.3 x 2.3 x 2.3 cm (previously 3.8 x 3.5 x 3.7 cm). There is no associated enhancement. No intrahepatic or extrahepatic ductal dilatation is identified. There is no peripancreatic or periportal lymphadenopathy. IMPRESSION: Interval decrease in size of a cystic lesion in the pancreatic head most consistent with a resolving pseudocyst. Requested By: Rocco Moreno M.D. Dictated By: STEVIE HUNTER M.D. on Sep 18 2013 3:37P This document has been electronically signed by: GUSTAVO SANTOS M.D. on Sep 18 2013 4:19P us Historical Provider MD MELÉNDEZ MRI PROCEDURES Final Result * Blood creatinine, point of care (09/18/2013 12:51 PM BURRITO MAKER) Creatinine, POC, bld 1.0 0.7 - 1.3 mg/dl HISTORICAL RESULTS Blood specimen (specimen) 09/18/2013 12:51 PM BURRITO MAKER us Rocco Moreno MD LAB BLOOD ORDERABL ES Final Result HISTORICAL RESULTS * Discharge Laboratory Cumulative Report (09/18/2013 12:00 AM BURRITO MAKER) 09/18/2013 Narrative HISTORICAL RESULTS - 09/18/2013 3:21 PM BURRITO MAKER ?[facility] ?Department of Laboratories ? [address] [facility] [place] ? [place] [address] Patient Name: ??YARIEL HILL Med Rec Number: [id number] Fin Number: ?[id number] Date: ?1970 Sex/Age: ? Male 43 years Admit Date: ?09/18/2013 Discharge Date: 09/18/2013 Doctor: ?Rocco Moreno Facility: ?[facility] Location: ?[facility] Chart Printed: 09/18/2013 15:21 ?? * Abnormal ?? C Critical ?? f Footnote ?? ^ Corrected ?? L Low ?? H High ? i Interp Data ?? @ Reference Lab ?Chart Type:Cumulative ?POINT OF CARE TESTS ? Chemistry ?Test: Creat iPOC ? Reference: [0.7-1.3] ? Units: mg/dL 09/18/2013 ?? 12:51:00 ?? 1.0 us Historical Provider LAB BLOOD ORDERABLES Carrie khanna Result HISTORICAL RESULTS documented in this encounter Visit Diagnoses Diagnosis Abdominal pain Abdominal pain, unspecified site Cyst and pseudocyst of pancreas documented in this encounter
--- OUTSIDE RECORDS SUMMARY | 2024-11-04 22:17 | XMS_ITS | Encounter Summary ---
Author Organization 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
--- OUTSIDE RECORDS SUMMARY | 2024-11-04 22:17 | XMS_ITS | Encounter Summary ---
Author Organization [facility] Facility Care Team Providers Care Drug And Alcohol Treatment Specialist Name Role Phone Unavailable Primary Care Provider Unavailabl e Encounter Details Date Type Department Care Team (Late st Contact Info) Description 04/10/2009 4:22 AM CDT - 04/10/2009 6:12 AM CDT Hospital Encounter [facility] Backache; Other accidents; Place of occurrence, public building Social History Tobacco Use Types Packs/Day Years Used Date Smoking Tobacco: Never Assessed Sex and Gender Information Value Date Recorded Sex Assigned at Not on file 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
--- OUTSIDE RECORDS SUMMARY | 2024-11-04 22:17 | XMS_ITS | Encounter Summary ---
Author Organization [facility]/Health system Facility Care Team Providers Care Muff Winder Name Role Phone Unavailable Primary Care Provider Unavailabl e Encounter Details Date Type Department Care Team (Late st Contact Info) Description 04/09/2014 11:41 AM CDT Hospital Encounter [facility] Rocco Brambila MD [address] [place] [address] Cyst and pseudocyst of pancreas; Acute pancreatitis; Other pancreatic disorder Social History Tobacco Use Types Packs/Day Years Used Date Smoking Tobacco: Never Assessed Sex and Gender Information Value Date Recorded Sex Assigned at Not on file 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 Gender Identity Not on file Sexual Orientation Not on file documented as of this encounter Plan of Treatment Not on file documented as of this encounter Procedures Procedure Name Priority Date/Time Associated Diagnosis Comments 3-D RENDERING ON MODALITY Routine 04/09/2014 1:05 PM CDT MRI ABDOMEN W WO CONTRAST Routine 04/09/2014 1:05 PM CDT BLOOD POINT OF CARE PANEL Routine 04/09/2014 12:17 PM CDT DISCHARGE LABORATORY CUMULATIVE REPORT 04/09/2014 documented in this encounter Results * MRI Abdomen WWO Contrast (04/09/2014 1:05 PM CDT) Anatomical Region Laterality Modality Body N/A Magnetic Resonan ce 04/09/2014 1:05 PM CDT Narrative 04/09/2014 2:28 PM CDT MELLISA BOO M.D. NICOLETTE ECKERT, FINAL REPORT The radiology attending physician has personally reviewed this study, and has reviewed and/or edited this written report and agrees with it. ACC# ??Date Time ??Exam [id number] Apr 09, 2014 13:05:00 [id number] MRI Abdomen wwo contrast [id number] Apr 09, 2014 13:05:00 [id number] 3-D Rendering on Modality EXAMINATION: 1. ??MAGNETIC RESONANCE IMAGING OF THE ABDOMEN WITH AND WITHOUT CONTRAST 2. THREE DIMENSIONAL RECONSTRUCTION OF THE BILIARY TREE AND PANCREATIC DUCT HISTORY: 43-year-old man with history of pancreatitis and cystic lesion in the pancreatic head. TECHNIQUE: Magnetic resonance imaging of the abdomen [...] Contrast: Optimark, 11 ml, single dose FINDINGS: Comparison is made to study performed on 09/18/2013. Liver: Liver parenchyma is normal. There are no focal suspicious lesions. Hepatic vasculature: Classic hepatic arterial anatomy. Bile ducts: No intra or extrahepatic biliary ductal dilatation. Gallbladder: Normal. Pancreas: T2 hyperintense, nonenhancing lesion in the head of the pancreas is redemonstrated and appears unchanged in size. It measures 2.3 x 2.3 x 2.3 cm. Atrophy of the body and prominence of the main pancreatic duct is unchanged. No suspicious focal parenchymal lesions. The pancreas enhances normally. ?? IMPRESSION: 1. Stable cystic lesion in the pancreatic head most consistent with a pancreatic pseudocyst. ?? Requested By: ROCCO MORENO ??Jenn Dictated By: ?? NICOLETTE ECKERT, ?? on Apr 09 2014 ??1:59P This document has been electronically signed by: MELLISA BOO M.D. on Apr 09 2014 ??2:28P Procedure Note Provider, MD Rhett - 02/22/2017 MELLISA BOO M.D. NICOLETTE ECKERT, FINAL REPORT The radiology attending physician has personally reviewed this study, and has reviewed and/or edited this written report and agrees with it. ACC# Date Time Exam [id number] Apr 09, 2014 13:05:00 [id number] MRI Abdomen wwo contrast [id number] Apr 09, 2014 13:05:00 [id number] 3-D Rendering on Modality EXAMINATION: 1. MAGNETIC RESONANCE IMAGING OF THE ABDOMEN WITH AND WITHOUT CONTRAST 2. THREE DIMENSIONAL RECONSTRUCTION OF THE BILIARY TREE AND PANCREATIC DUCT HISTORY: 43-year-old man with history of pancreatitis and cystic lesion in the pancreatic head. TECHNIQUE: Magnetic resonance imaging of the abdomen [...] Contrast: Optimark, 11 ml, single dose FINDINGS: Comparison is made to study performed on 09/18/2013. Liver: Liver parenchyma is normal. There are no focal suspiciouslesions. Hepatic vasculature: Classic hepatic arterial anatomy. Bile ducts: No intra or extrahepatic biliary ductal dilatation. Gallbladder: Normal. Pancreas: T2 hyperintense, nonenhancing lesion in the head of the pancreas is redemonstrated and appears unchanged in size. It measures 2.3 x 2.3 x 2.3 cm. Atrophy of the body and prominence of the main pancreatic duct is unchanged. No suspicious focal parenchymal lesions. The pancreas enhances normally. IMPRESSION: 1. Stable cystic lesion in the pancreatic head most consistent with a pancreatic pseudocyst. Requested By: ROCCO MORENO M.D. Dictated By: NICOLETTE ECKERT, on Apr 09 2014 1:59P This document has been electronically signed by: MELLISA BOO M.D. on Apr 09 2014 2:28P Historical Provider MD MELÉNDEZ MRI PROCEDURES Final Result * 3-D Rendering on Modality (04/09/2014 1:05 PM CDT) Anatomical Region Laterality Modality N/A Magnetic Resonan ce 04/09/2014 1:05 PM CDT Narrative 04/09/2014 2:28 PM CDT MELLISA BOO M.D. NICOLETTE ECKERT, FINAL REPORT The radiology attending physician has personally reviewed this study, and has reviewed and/or edited this written report and agrees with it. ACC# ??Date Time ??Exam [id number] Apr 09, 2014 13:05:00 [id number] MRI Abdomen wwo contrast [id number] Apr 09, 2014 13:05:00 [id number] 3-D Rendering on Modality EXAMINATION: 1. ??MAGNETIC RESONANCE IMAGING OF THE ABDOMEN WITH AND WITHOUT CONTRAST 2. THREE DIMENSIONAL RECONSTRUCTION OF THE BILIARY TREE AND PANCREATIC DUCT HISTORY: 43-year-old man with history of pancreatitis and cystic lesion in the pancreatic head. TECHNIQUE: Magnetic resonance imaging of the abdomen [...] Contrast: Optimark, 11 ml, single dose FINDINGS: Comparison is made to study performed on 09/18/2013. Liver: Liver parenchyma is normal. There are no focal suspicious lesions. Hepatic vasculature: Classic hepatic arterial anatomy. Bile ducts: No intra or extrahepatic biliary ductal dilatation. Gallbladder: Normal. Pancreas: T2 hyperintense, nonenhancing lesion in the head of the pancreas is redemonstrated and appears unchanged in size. It measures 2.3 x 2.3 x 2.3 cm. Atrophy of the body and prominence of the main pancreatic duct is unchanged. No suspicious focal parenchymal lesions. The pancreas enhances normally. ?? IMPRESSION: 1. Stable cystic lesion in the pancreatic head most consistent with a pancreatic pseudocyst. ?? Requested By: ROCCO MORENO ??Jenn Dictated By: ?? NICOLETTE ECKERT, ?? on Apr 09 2014 ??1:59P This document has been electronically signed by: MELLISA BOO M.D. on Apr 09 2014 ??2:28P Procedure Note Provider, MD Rhett - 02/22/2017 MELLISA BOO M.D. NICOLETTE ECKERT, FINAL REPORT The radiology attending physician has personally reviewed this study, and has reviewed and/or edited this written report and agrees with it. ACC# Date Time Exam [id number] Apr 09, 2014 13:05:00 [id number] MRI Abdomen wwo contrast [id number] Apr 09, 2014 13:05:00 [id number] 3-D Rendering on Modality EXAMINATION: 1. MAGNETIC RESONANCE IMAGING OF THE ABDOMEN WITH AND WITHOUT CONTRAST 2. THREE DIMENSIONAL RECONSTRUCTION OF THE BILIARY TREE AND PANCREATIC DUCT HISTORY: 43-year-old man with history of pancreatitis and cystic lesion in the pancreatic head. TECHNIQUE: Magnetic resonance imaging of the abdomen [...] Contrast: Optimark, 11 ml, single dose FINDINGS: Comparison is made to study performed on 09/18/2013. Liver: Liver parenchyma is normal. There are no focal suspiciouslesions. Hepatic vasculature: Classic hepatic arterial anatomy. Bile ducts: No intra or extrahepatic biliary ductal dilatation. Gallbladder: Normal. Pancreas: T2 hyperintense, nonenhancing lesion in the head of the pancreas is redemonstrated and appears unchanged in size. It measures 2.3 x 2.3 x 2.3 cm. Atrophy of the body and prominence of the main pancreatic duct is unchanged. No suspicious focal parenchymal lesions. The pancreas enhances normally. IMPRESSION: 1. Stable cystic lesion in the pancreatic head most consistent with a pancreatic pseudocyst. Requested By: ROCCO MORENO M.D. Dictated By: NICOLETTE ECKERT, on Apr 09 2014 1:59P This document has been electronically signed by: MELLISA BOO M.D. on Apr 09 2014 2:28P Historical Provider MD MELÉNDEZ MRI PROCEDURES Final Result * Blood point of care panel (04/09/2014 12:17 PM CDT) Creatinine, bld 1.1 0.6 - 1.3 mg/dl HISTORICAL RESULTS Comment: Creatinine < 1.5 mg/dL and stable receive IV contrast. Creatnine 1.5 - 1.9 mg/dL and stable use Visipaque IV contrast. Blood specimen (specimen) 04/09/2014 12:17 PM CDT Rocco Moreno MD LAB BLOOD ORDERABL ES Final Result HISTORICAL RESULTS * DISCHARGE LABORATORY CUMULATIVE REPORT (04/09/2014) Narrative 04/09/2014 Ordered by an unspecified provider. Historical Provider LAB BLOOD ORDERABLES Carrie l Result documented in this encounter Visit Diagnoses Diagnosis Cyst and pseudocyst of pancreas Acute pancreatitis Other pancreatic disorder documented in this encounter
--- OUTSIDE RECORDS SUMMARY | 2024-11-04 22:17 | XMS_ITS | Encounter Summary ---
Author Organization [facility] Facility Care Team Providers Care Instrumentation Technologist Name Role Phone Unavailable Primary Care Provider Unavailabl e Encounter Details Date Type Department Care Team (Latest Contact Info) Description 11/13/2012 8:38 AM RESIDENTIAL CARE OFFICER - 11/13/2012 4:00 PM RESIDENTIAL CARE OFFICER Hospital Encounter [facility] WITH [facility] Christiano Heller MD [address] [address] Abdominal pain; Alcohol abuse; Pain in joint, shoulder region; Tobacco use disorder; Need for Streptococcus pneumoniae and influenza vaccination Social History Tobacco Use Types Packs/Day Years Used Date Smoking Tobacco: Never Assessed Sex and Gender Information Value Date Recorded Sex Assigned at Not on file 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 Gender Identity Not on file Sexual Orientation Not on file documented as of this encounter Plan of Treatment Not on file documented as of this encounter Procedures Procedure Name Priority Date/Time Associated Diagnosis Comments XR SHOULDER 2+ VW Routine 11/13/2012 10: 48 AM RESIDENTIAL CARE OFFICER XR SPINE CERVICAL 2 OR 3 VIEWS Routine 11/13/2012 10:48 AM RESIDENTIAL CARE OFFICER BLOOD HEMOGLOBIN A1C, POC Routine 11/13/2012 9:45 AM RESIDENTIAL CARE OFFICER SERUM LIPID PANEL Routine 11/13/2012 3:5 4 AM RESIDENTIAL CARE OFFICER SERUM HUMAN IMMUNODEFICIENCY VIRUS (HIV) 1, 2 AB Routine 11/13/2012 3:54 AM RESIDENTIAL CARE OFFICER SERUM 25-HYDROXYCHOLECALCIFERO L (VITAMIN D) Routine 11/13/2012 3:54 AM RESIDENTIAL CARE OFFICER PLASMA COMPREHENSIVE METABOLIC PANEL Routine 11/13/2012 3:54 AM RESIDENTIAL CARE OFFICER BLOOD CELL COUNT (CBC) Routine 3 3:54 AM RESIDENTIAL CARE OFFICER DISCHARGE LABORATORY CUMULATIVE REPORT Routine 11/13/2012 12:00 AM RESIDENTIAL CARE OFFICER documented in this encounter Results * XR Spine Cervical 3 View (11/13/2012 10:48 AM RESIDENTIAL CARE OFFICER) Anatomical Region Laterality Modality Spine N/A Radiographic Vashti ging 11/13/2012 10:4 8 AM RESIDENTIAL CARE OFFICER Narrative 11/13/2012 11:35 AM RESIDENTIAL CARE OFFICER ISMAEL CASTILLO M.D. FINAL REPORT ACC# ??Date Time ??Exam [id number] Nov 13, 2012 10:48:00 [id number] Spine Cerv 3views or less [id number] Nov 13, 2012 10:48:00 [id number] Shoulder minimum 2 views R EXAMINATION: ?? 1. Cervical spine 3 views or less 2. Right shoulder minimum 2 views HISTORY: Cervical spondylosis, right shoulder pain FINDINGS: Right shoulder: 3 views are submitted without comparison. There are no fractures. Alignment is anatomic. The joint spaces are normal. Cervical spine: 2 views are submitted without comparison. There is mild C5-C6 degenerative disc disease with mild right uncovertebral hypertrophy. There are no fractures. Alignment is anatomic. There is no prevertebral soft tissue swelling. Left internal carotid artery calcifications are noted. IMPRESSION: ?? 1. Mild C5-C6 degenerative disc disease with right-sided uncovertebral hypertrophy. 2. Normal evaluation of the right shoulder. Requested By: MOMO DUNCAN ??Jenn HO Dictated By: ?? ISMAEL CASTILLO M.D. ??on Nov 13 2012 11:35A This document has been electronically signed by: ISMAEL CASTILLO M.D. on Nov 13 2012 11:35A Procedure Note Provider, MD Rhett - 02/22/2017 ISMAEL CASTILLO M.D. FINAL REPORT ACC# Date Time Exam [id number] Nov 13, 2012 10:48:00 [id number] Spine Cerv 3views or less [id number] Nov 13, 2012 10:48:00 [id number] Shoulder minimum 2 views R EXAMINATION: 1. Cervical spine 3 views or less 2. Right shoulder minimum 2 views HISTORY: Cervical spondylosis, right shoulder pain FINDINGS: Right shoulder: 3 views are submitted without comparison. There are no fractures. Alignment is anatomic. The joint spaces are normal. Cervical spine: 2 views are submitted without comparison. There is mild C5-C6 degenerative disc disease with mild right uncovertebral hypertrophy. There are no fractures. Alignment is anatomic. There is no prevertebral soft tissue swelling. Left internal carotid artery calcifications are noted. IMPRESSION: 1. Mild C5-C6 degenerative disc disease with right-sided uncovertebral hypertrophy. 2. Normal evaluation of the right shoulder. Requested By: MOMO DUNCAN M.D. HO Dictated By: ISMAEL CASTILLO M.D. on Nov 13 2012 11:35A This document has been electronically signed by: ISMAEL CASTILLO M.D. on Nov 13 2012 11:35A us Historical Provider MD MELÉNDEZ XR PROCEDURES Final R esult * XR Shoulder 2+ Vw (11/13/2012 10:48 AM RESIDENTIAL CARE OFFICER) Anatomical Region Laterality Modality Shoulder N/A Radiographic Vashti ging 11/13/2012 10:4 8 AM RESIDENTIAL CARE OFFICER Narrative 11/13/2012 11:35 AM RESIDENTIAL CARE OFFICER ISMAEL CASTILLO M.D. FINAL REPORT ACC# ??Date Time ??Exam [id number] Nov 13, 2012 10:48:00 [id number] Spine Cerv 3views or less [id number] Nov 13, 2012 10:48:00 60476 Shoulder minimum 2 views R EXAMINATION: ?? 1. Cervical spine 3 views or less 2. Right shoulder minimum 2 views HISTORY: Cervical spondylosis, right shoulder pain FINDINGS: Right shoulder: 3 views are submitted without comparison. There are no fractures. Alignment is anatomic. The joint spaces are normal. Cervical spine: 2 views are submitted without comparison. There is mild C5-C6 degenerative disc disease with mild right uncovertebral hypertrophy. There are no fractures. Alignment is anatomic. There is no prevertebral soft tissue swelling. Left internal carotid artery calcifications are noted. IMPRESSION: ?? 1. Mild C5-C6 degenerative disc disease with right-sided uncovertebral hypertrophy. 2. Normal evaluation of the right shoulder. Requested By: MOMO DUNCAN ??Jenn HO Dictated By: ?? ISMAEL CASTILLO M.D. ??on Nov 13 2012 11:35A This document has been electronically signed by: ISMAEL CASTILLO M.D. on Nov 13 2012 11:35A Procedure Note Provider, MD Rhett - 02/22/2017 ISMAEL CASTILLO M.D. FINAL REPORT ACC# Date Time Exam [id number] Nov 13, 2012 10:48:00 [id number] Spine Cerv 3views or less [id number] Nov 13, 2012 10:48:00 [id number] Shoulder minimum 2 views R EXAMINATION: 1. Cervical spine 3 views or less 2. Right shoulder minimum 2 views HISTORY: Cervical spondylosis, right shoulder pain FINDINGS: Right shoulder: 3 views are submitted without comparison. There are no fractures. Alignment is anatomic. The joint spaces are normal. Cervical spine: 2 views are submitted without comparison. There is mild C5-C6 degenerative disc disease with mild right uncovertebral hypertrophy. There are no fractures. Alignment is anatomic. There is no prevertebral soft tissue swelling. Left internal carotid artery calcifications are noted. IMPRESSION: 1. Mild C5-C6 degenerative disc disease with right-sided uncovertebral hypertrophy. 2. Normal evaluation of the right shoulder. Requested By: MOMO DUNCAN M.D. HO Dictated By: ISMAEL CASTILLO M.D. on Nov 13 2012 11:35A This document has been electronically signed by: ISMAEL CASTILLO M.D. on Nov 13 2012 11:35A us Historical Provider MD MELÉNDEZ XR PROCEDURES Final R esult * Blood hemoglobin A1C, POC (11/13/2012 9:45 AM RESIDENTIAL CARE OFFICER) Hgb A1C 5.2 4.0 - 6.0 % HISTORICAL RESULTS Estimated average glucose 103 mg/dl HISTORICAL RESULTS Blood specimen (specimen) 11/13/2012 9:45 AM RESIDENTIAL CARE OFFICER Momo Duncan MD LAB BLOOD ORDERABLES Final RUST Performing Organization Address [facility] de Phone Number HISTORICAL RESULTS * (ABNORMAL) Plasma comprehensive metabolic panel (11/13/2012 3:54 AM RESIDENTIAL CARE OFFICER) Sodium 141 135 - 145 mmol/L HISTORICAL RESULTS K, pl 4.1 3.3 - 4.9 mmol/L HISTORICAL RESULTS Chloride 99 97 - 110 mmol/L HISTORICAL RESULTS CO2 29 22 - 32 mmol/L HISTORICAL RESULTS A. gap 13 0 - 16 mmol/L HISTORICAL RESULTS Glucose 67 65 - 199 mg/dl HISTORICAL RESULTS BUN 10 8 - 25 mg/dl HISTORICAL RESULTS Creatinine 0.71 0.70 - 1.30 mg/dl HISTORICAL RESULTS Calcium 9.7 8.6 - 10.3 mg/dl HISTORICAL RESULTS Protein, pl 8.3 6.5 - 8.5 g/dl HISTORICAL RESULTS Alb 5.3(H) 3.6 - 5.0 g/dl HISTORICAL RESULTS Bilirubin 0.2(L) 0.3 - 1.1 mg/dl HISTORICAL RESULTS Alk phos 55 38 - 126 Units/L HISTORICAL RESULTS AST 89(H) 11 - 47 Units/L HISTORICAL RESULTS ALT 68(H) 7 - 53 Units/L HISTORICAL RESULTS Plasma 11/13/2012 3:54 AM RESIDENTIAL CARE OFFICER Narrative HISTORICAL RESULTS - 11/13/2012 5:26 AM RESIDENTIAL CARE OFFICER LAB Frequency Standing Order? No Expiration Date: Momo Duncan MD LAB BLOOD ORDERABLES Final RUST Performing Organization Address [facility] de Phone Number HISTORICAL RESULTS * (ABNORMAL) Serum 25-hydroxycholecalciferol (vitamin D) (11/13/2012 3:54 AM RESIDENTIAL CARE OFFICER) Pathologist [facility] 25-OH Vit D 12(L) 30 - 100 ng/ml HISTORICAL RESULTS Serum 11/13/2012 3:54 AM RESIDENTIAL CARE OFFICER Narrative HISTORICAL RESULTS - 11/13/2012 7:37 AM RESIDENTIAL CARE OFFICER LAB Frequency Standing Order? No Expiration Date: us Momo Duncan MD LAB BLOOD ORDERABLES Final R esult HISTORICAL RESULTS * (ABNORMAL) Serum lipid panel (11/13/2012 3:54 AM RESIDENTIAL CARE OFFICER) Cholesterol 231(H) 0 - 200 mg/dl HISTORICAL RESULTS Comment: Interpretive Data Desirable: ?<200 mg/dL Borderline high: ??200-239 mg/dL High: ? >240 mg/dL Literature Reference: National Cholesterol Education Program (NCEP) Expert Panel on Detection, Evaluation, and Treatment of High Blood Cholesterol in Adults (Adult Treatment Panel III). ??Circulation 2004; 110:227. Current interpretive data was last revised on 2005. Triglycerides 83 0 - 150 mg/dl HISTORICAL RESULTS Comment: Interpretive Data Desirable: ? < 150 mg/dL Borderline High: ? 150 - 199 mg/dL High: ?> 200 mg/dL Literature Reference: See Cholesterol Current interpretive data was last revised on 07. LDL 85 0 - 129 mg/dl HISTORICAL RESULTS Comment: Interpretive Data Optimal: ? < 100 mg/dL Near Optimal: ?100 - 129 mg/dL Borderline High: ?? 130 - 159 mg/dL High: ?> 160 mg/dL Literature Reference: See Cholesterol Current interpretive data was last revised on 07. HDL 131 40 - 199 mg/dl HISTORICAL RESULTS Comment: {Repeated on dilution.} Interpretive Data Less than 40 mg/dL - low; A major risk factor for heart disease. Greater than or equal to 60 mg/dL - High; ??considered protective of heart disease. Literature Reference: See Cholesterol Current interpretive data was last revised on 2008. Non-HDL cholesterol, calculated 100 mg/dl HISTORICAL RESULTS Comment: Interpretive Data When triglycerides are >200 mg/dL, non-HDL C is a secondary target of therapy, with a goal 30 mg/dL higher than the identified LDL-C goal. Reference: ??See Cholesterol Reference. Current interpretive data was last revised 2012. Serum 11/13/2012 3:54 AM RESIDENTIAL CARE OFFICER Narrative HISTORICAL RESULTS - 11/13/2012 7:00 AM RESIDENTIAL CARE OFFICER LAB Frequency Standing Order? No Expiration Date: Momo Duncan MD LAB BLOOD ORDERABLES Final R esult Performing Organization Address [facility] de Phone Number HISTORICAL RESULTS * Serum Human Immunodeficiency virus (HIV) 1, 2 ab (11/13/2012 3:54 AM RESIDENTIAL CARE OFFICER) HIV ab Negative NEG HISTORICAL RESULTS Serum 11/13/2012 3:54 AM RESIDENTIAL CARE OFFICER Narrative HISTORICAL RESULTS - 11/16/2012 5:02 AM RESIDENTIAL CARE OFFICER LAB Frequency Standing Order? No Expiration Date: Momo Duncan MD LAB BLOOD [facility]ABLES [facility] Performing Organization Address [facility] de Phone Number HISTORICAL RESULTS * (ABNORMAL) Blood cell count (CBC) (11/13/2012 3:54 AM RESIDENTIAL CARE OFFICER) WBC 8.3 3.8 - 9.8 K/cumm HISTORICAL RESULTS RBC 4.37(L) 4.50 - 5.70 M/cumm HISTORICAL RESULTS Hgb 15.1 13.8 - 17.2 g/dl HISTORICAL RESULTS Hct 44.3 40.7 - 50.3 % HISTORICAL RESULTS MCV 101.3(H) 80.0 - 97.6 fl HISTORICAL RESULTS MCH 34.7(H) 26.7 - 33.7 pg HISTORICAL RESULTS MCHC 34.2 32.7 - 35.5 g/dl HISTORICAL RESULTS Rdw 16.0(H) 11.8 - 14.6 % HISTORICAL RESULTS Platelets 118(L) 140 - 440 K/cumm HISTORICAL RESULTS MPV 8.6 6.8 - 10.4 fl HISTORICAL RESULTS Neutrophils 65.8 38.7 - 74.5 % HISTORICAL RESULTS Lymphocytes 20.2 20.0 - 54.3 % HISTORICAL RESULTS Monos 9.9 4.3 - 13.5 % HISTORICAL RESULTS Eosinophils 3.5 0.0 - 6.0 % HISTORICAL RESULTS Basophils 0.6 0.0 - 3.0 % HISTORICAL RESULTS Neutrophils, abs 5.5 1.8 - 6.6 K/cumm HISTORICAL RESULTS Lymphocytes, abs 1.7 1.2 - 3.3 K/cumm HISTORICAL RESULTS Monocytes, absolute 0.8 0.2 - 1.2 K/cumm HISTORICAL RESULTS Eosinophils, abs 0.3 0.0 - 0.5 K/cumm HISTORICAL RESULTS Basophils, abs 0.0 0.0 - 0.2 K/cumm HISTORICAL RESULTS Blood specimen (specimen) 11/13/2012 3:54 AM RESIDENTIAL CARE OFFICER Narrative HISTORICAL RESULTS - 11/13/2012 4:49 AM RESIDENTIAL CARE OFFICER LAB Frequency Standing Order? No Expiration Date: us Momo Duncan MD LAB BLOOD ORDERABLES Final R esult HISTORICAL RESULTS * Discharge Laboratory Cumulative Report (11/13/2012 12:00 AM RESIDENTIAL CARE OFFICER) 11/13/2012 Narrative HISTORICAL RESULTS - 11/16/2012 11:26 AM RESIDENTIAL CARE OFFICER ?[facility] ?Department of Laboratories ? [facility] [place] ? [place] [address] Patient Name: ??YARIEL HILL [facility] Rec Number: [id number] Fin Number: ?[id number] Date: ?1970 Sex/Age: ? Male 42 years Admit Date: ?11/13/2012 Discharge Date: 11/13/2012 Doctor: ?MEDICINE , 1302 Facility: ?[facility] Location: ?[facility] Chart Printed: 11/16/2012 11:26 ?? * Abnormal ?? C Critical ?? f Footnote ?? ^ Corrected ?? L Low ?? H High ? i Interp Data ?? @ Reference Lab ? Chart Type:Periodic ? HIV / HTLV TESTS ?Test: HIV 1-2 Antibodies ? Reference: [NEG] ? Units: 11/13/2012 ?? 09:54:00 ?? NEG 11/13/2012 09:54:00 ??HIV 1-2 Ab: LAB Frequency Standing Order? No Expiration Date: us Historical Provider LAB BLOOD ORDERABLES Carrie khanna Result HISTORICAL RESULTS documented in this encounter Visit Diagnoses Diagnosis Abdominal pain Abdominal pain, unspecified site Alcohol abuse Nondependent alcohol abuse, unspecified drinking behavior Pain in joint, shoulder region Tobacco use disorder Need for Streptococcus pneumoniae and influenza vaccination documented in this encounter
--- OUTSIDE RECORDS SUMMARY | 2024-11-04 22:17 | XMS_ITS | Encounter Summary ---
Author Organization [facility] Facility Care Team Providers Care Problem Manager Name Role Phone Unavailable Primary Care Provider Unavailabl e Encounter Details Date Type Department Care Team (Late st Contact Info) Description 06/12/2013 3:41 PM CDT - 06/12/2013 8:27 PM CDT Hospital Encounter [facility] Mary Ann Bernardo Pain in soft tissues of limb; History of other diseases of digestive system Social History Tobacco Use Types Packs/Day Years Used Date Smoking Tobacco: Never Assessed Sex and Gender Information Value Date Recorded Sex Assigned at Not on file 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 Gender Identity Not on file Sexual Orientation Not on file documented as of this encounter Plan of Treatment Not on file documented as of this encounter Procedures Procedure Name Priority Date/Time Associated Diagnosis Comments XR KNEE 4+ VW Routine 06/12/2013 6:08 PM CDT PLASMA BASIC METABOLIC PANEL Routine 06/12/2013 5:50 PM CDT BLOOD ERYTHROCYTE SEDIMENTATION RATE (ESR) Routine 06/12/2013 5:50 PM CDT BLOOD D-DIMER Routine 06/12/2013 5:50 PM CDT BLOOD CELL COUNT (CBC) Routine 3 5:50 PM CDT DISCHARGE LABORATORY CUMULATIVE REPORT Routine 06/12/2013 12:00 AM CDT documented in this encounter Results * XR Knee 4+ VW (06/12/2013 6:08 PM CDT) Anatomical Region Laterality Modality N/A Radiographic Vashti ging 06/12/2013 6:08 PM CDT Narrative 06/13/2013 9:16 AM CDT Jenn FIELDS M.D. FINAL REPORT The radiology attending physician has personally reviewed this study, and has reviewed and/or edited this written report and agrees with it. ACC# ??Date Time ??Exam [id number] Jun 12, 2013 18:08:00 [id number] Knee Complete min 4 views L EXAMINATION: ?Left knee complete, minimum 4 views HISTORY: ??Knee pain COMPARISON: None available IMPRESSION: ?? Four view examination of the left knee is performed. No fracture or dislocation is identified. The knee joint is normal. There is no effusion. Requested By: MARY ANN BERNARDO Dictated By: ?? JESÚS HASSAN M.D. ??on Jun 12 2013 ??6:57P This document has been electronically signed by: FERNANDO CRUZ M.D. on Jun 13 2013 ??9:16A Procedure Note Provider, MD Rhett - 02/22/2017 Jenn FIELDS M.D. FINAL REPORT The radiology attending physician has personally reviewed this study, and has reviewed and/or edited this written report and agrees with it. ACC# Date Time Exam [id number] Jun 12, 2013 18:08:00 [id number] Knee Complete min 4 views L EXAMINATION: Left knee complete, minimum 4 views HISTORY: Knee pain COMPARISON: None available IMPRESSION: Four view examination of the left knee is performed. No fracture or dislocation is identified. The knee joint is normal. There is no effusion. Requested By: MARY ANN BERNARDO Dictated By: JESÚS HASSAN M.D. on Jun 12 2013 6:57P This document has been electronically signed by: FERNANDO CRUZ M.D. on Jun 13 2013 9:16A us Historical Provider MD MELÉNDEZ XR PROCEDURES Final R esult * (ABNORMAL) Plasma basic metabolic panel (06/12/2013 5:50 PM CDT) Pathologist [facility] Sodium 143 135 - 145 mmol/L HISTORICAL RESULTS K, pl 4.4 3.3 - 4.9 mmol/L HISTORICAL RESULTS Chloride 104 97 - 110 mmol/L HISTORICAL RESULTS CO2 31 22 - 32 mmol/L HISTORICAL RESULTS A. gap 8 0 - 16 mmol/L HISTORICAL RESULTS Glucose 90 70 - 199 mg/dl HISTORICAL RESULTS BUN 7(L) 8 - 25 mg/dl HISTORICAL RESULTS Creatinine 0.94 0.70 - 1.30 mg/dl HISTORICAL RESULTS Calcium 9.6 8.6 - 10.3 mg/dl HISTORICAL RESULTS Plasma 06/12/2013 5:50 PM CDT Mary Ann Bernardo LAB BLOOD ORDERABLES Final Resu lt HISTORICAL RESULTS * (ABNORMAL) Blood cell count (CBC) (06/12/2013 5:50 PM CDT) Pathologist [facility] WBC 8.4 3.8 - 9.8 K/cumm HISTORICAL RESULTS RBC 4.43(L) 4.50 - 5.70 M/cumm HISTORICAL RESULTS Hgb 13.7(L) 13.8 - 17.2 g/dl HISTORICAL RESULTS Hct 40.9 40.7 - 50.3 % HISTORICAL RESULTS MCV 92.3 80.0 - 97.6 fl HISTORICAL RESULTS MCH 30.8 26.7 - 33.7 pg HISTORICAL RESULTS MCHC 33.4 32.7 - 35.5 g/dl HISTORICAL RESULTS Rdw 13.5 11.8 - 14.6 % HISTORICAL RESULTS Platelets 215 140 - 440 K/cumm HISTORICAL RESULTS MPV 7.1 6.8 - 10.4 fl HISTORICAL RESULTS Neutrophils 60.9 38.7 - 74.5 % HISTORICAL RESULTS Lymphocytes 27.4 20.0 - 54.3 % HISTORICAL RESULTS Monos 6.0 4.3 - 13.5 % HISTORICAL RESULTS Eosinophils 5.1 0.0 - 6.0 % HISTORICAL RESULTS Basophils 0.6 0.0 - 3.0 % HISTORICAL RESULTS Neutrophils, abs 5.1 1.8 - 6.6 K/cumm HISTORICAL RESULTS Lymphocytes, abs 2.3 1.2 - 3.3 K/cumm HISTORICAL RESULTS Monocytes, absolute 0.5 0.2 - 1.2 K/cumm HISTORICAL RESULTS Eosinophils, abs 0.4 0.0 - 0.5 K/cumm HISTORICAL RESULTS Basophils, abs 0.1 0.0 - 0.2 K/cumm HISTORICAL RESULTS Blood specimen (specimen) 06/12/2013 5:50 PM CDT Mary Ann Bernardo LAB BLOOD ORDERABLES Final Resu lt Performing Organization Address [facility] de Phone Number HISTORICAL RESULTS * Blood erythrocyte sedimentation rate (ESR) (06/12/2013 5:50 PM CDT) Pathologist [facility] Erythrocyte sedimentation rate 9.0 0.0 - 12.0 mm/hr HISTORICAL RESULTS Blood specimen (specimen) 06/12/2013 5:50 PM CDT Mary Ann Bernardo LAB BLOOD ORDERABLES Final Resu lt Performing Organization Address [facility] de Phone Number HISTORICAL RESULTS * (ABNORMAL) Blood D-dimer (06/12/2013 5:50 PM CDT) D-dimer <110(L) 110 - 230 ng/ml D-DU HISTORICAL RESULTS Comment: Interpretive Data This D-dimer test is approved by the FDA to exclude suspected PE and DVT in outpatients when the result is <230 ng/mL in conjunction with a pre-test probability score of low or moderate using the Wells criteria. Current Interpretive Data was last revised on 2012. Blood specimen (specimen) 06/12/2013 5:50 PM CDT Mary Ann Bernardo LAB BLOOD ORDERABLES Final Resu lt Performing Organization Address [facility] de Phone Number HISTORICAL RESULTS * Discharge Laboratory Cumulative Report (06/12/2013 12:00 AM CDT) 06/12/2013 Narrative HISTORICAL RESULTS - 06/13/2013 3:16 AM CDT ?[facility] ?Department of Laboratories ? [address] [facility] [address] ? [place] [address] Patient Name: ??YARIEL HILL Med Rec Number: [id number] Fin Number: ?[id number] Date: ?1970 Sex/Age: ? Male 43 years Admit Date: ?06/12/2013 Discharge Date: 06/12/2013 Doctor: ?Mary Ann Bernardo S Facility: ?[facility] Location: ?[id number] Chart Printed: 06/13/2013 03:16 ?? * Abnormal ?? C Critical ?? f Footnote ?? ^ Corrected ?? L Low ?? H High ? i Interp Data ?? @ Reference Lab ?Chart Type:Cumulative ? SELECTED ELECTROLYTES ?Test: Sodium ? Plasma Potassium ??Chloride ? Reference: [135-145] ??[3.3-4.9] ? [97-110] ? Units: mmol/L ? mmol/L ?mmol/L 06/12/2013 ?? 17:50:55 ?? 143 ?4.4 ? 104 ?Test: Total CO2 ??Anion Gap ? Reference: [22-32] ?[0-16] ? Units: mmol/L ? mmol/L 06/12/2013 ?? 17:50:55 ?? 31 ? 8 ? STANDARD BLOOD CHEMISTRY ?Test: BUN ? Creatinine ?? Glucose ?? Total Calcium ? Reference: [8-25] ??[0.70-1.30] ??[70-199] ??[8.6-10.3] ? Units: mg/dL ?? mg/dL ?mg/dL ? mg/dL 06/12/2013 ?? 17:50:55 ?? 7 ??L ?0.94 ? 90 ?9.6 ? COMPLETE BLOOD COUNT ?Test: WBC ?RBC ?Hgb ? Reference: [3.8-9.8] ??[4.50-5.70] ??[13.8-17.2] ? Units: K/cumm ? M/cumm ? g/dL 06/12/2013 ?? 17:50:55 ?? 8.4 ?4.43 ??L ?13.7 ??L ?Test: Hct ?Platelet Ct ??MCV ? Reference: [40.7-50.3] ??[140-440] ?[80.0-97.6] ? Units: % ?K/cumm ? fL 06/12/2013 ?? 17:50:55 ?? 40.9 ? 215 ?92.3 ? COMPLETE BLOOD COUNT ?Test: MCH ?MCHC ? RDW ? Reference: [26.7-33.7] ??[32.7-35.5] ??[11.8-14.6] ? Units: pg ? g/dL ? % 06/12/2013 ?? 17:50:55 ?? 30.8 ? 33.4 ? 13.5 ?Test: MPV ? Reference: [6.8-10.4] ? Units: fL 06/12/2013 ?? 17:50:55 ?? 7.1 ? AUTOMATED WHITE CELL DIFFERENTIAL ?Test: Neut Pct Auto ??Lymph Pct Auto ??[place] Pct Auto ? Reference: [38.7-74.5] ?[20.0-54.3] ? [4.3-13.5] ? Units: % ?% ? % 06/12/2013 ?? 17:50:55 ?? 60.9 ? 27.4 ?6.0 ?Test: Eos Pct Auto ??Baso Pct Auto ??Neut Abs Auto ? Reference: [0.0-6.0] ? [0.0-3.0] ?[1.8-6.6] ? Units: % ? % ?K/cumm 06/12/2013 ?? 17:50:55 ?? 5.1 ? 0.6 ?5.1 ?Test: Lymph Abs Auto ??[place] Abs Auto ??Eos Abs Auto ? Reference: [1.2-3.3] ? [0.2-1.2] ?[0.0-0.5] ? Units: K/cumm ?K/cumm ? K/cumm 06/12/2013 ?? 17:50:55 ?? 2.3 ? 0.5 ?0.4 ?Test: Baso Abs Auto ? Reference: [0.0-0.2] ? Units: K/cumm 06/12/2013 ?? 17:50:55 ?? 0.1 ? MISCELLANEOUS HEMATOLOGY ?Test: ESR ? Reference: [0-12] ? Units: mm/H 06/12/2013 ?? 17:50:00 ?? 9 ? HEMOSTASIS AND THROMBOSIS ?Routine Coagulation Studies ?Test: D-Dimer Qnt i ? Reference: [110-230] ? Units: ng/mL D-DU 06/12/2013 ?? 17:50:55 ?? <110 ??L 06/12/2013 17:50:55 D-Dimer Qnt: Interpretive Data This D-dimer test is approved by the FDA to exclude suspected PE and DVT in outpatients when the result is <230 ng/mL in conjunction with a pre-test probability score of low or moderate using the Wells criteria. Current Interpretive Data was last revised on 2012. us Historical Provider LAB BLOOD ORDERABLES Carrie khanna Result HISTORICAL RESULTS documented in this encounter Visit Diagnoses Diagnosis Pain in soft tissues of limb History of other diseases of digestive system documented in this encounter
--- OUTSIDE RECORDS SUMMARY | 2024-11-04 22:17 | XMS_ITS | Encounter Summary ---
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 Name Role Phone Unavailable Primary Care Provider Unavailabl e Encounter Details Date Type Department Care Team (Latest Contact Info) Description 11/19/2015 12:46 AM ART TEACHER - 11/19/2015 4:23 AM ART TEACHER Hospital Encounter [facility] Noemi Alan MD [address] [place] [address] Alcoholic gastritis without bleeding; Acute pancreatitis; Major depressive disorder, single episode (CMS/HCC); Uncomplicated alcohol abuse; 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; Nicotine dependence, uncomplicated Social History Tobacco Use Types Packs/Day Years Used Date Smoking Tobacco: Never Assessed Sex and Gender Information Value Date Recorded Sex Assigned at Not on file 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 Gender Identity Not on file Sexual Orientation Not on file documented as of this encounter Plan of Treatment Not on file documented as of this encounter Procedures Procedure Name Priority Date/Time Associated Diagnosis Comments SERUM LIPASE Routine 11/19/2015 2:26 AM ART TEACHER PLASMA HEPATIC FUNCTION PANEL Routine 11/19/2015 2:26 AM ART TEACHER PLASMA BASIC METABOLIC PANEL Routine 11/19/2015 2:26 AM ART TEACHER BLOOD CELL COUNT (CBC) Routine 11/19/2015 2:26 AM ART TEACHER DISCHARGE LABORATORY CUMULATIVE REPORT 11/19/2015 documented in this encounter Results * (ABNORMAL) Plasma hepatic function panel (11/19/2015 2:26 AM ART TEACHER) Pathologist [facility] Protein, pl 7.6 6.5 - 8.5 g/dl HISTORICAL RESULTS Alb 5.0 3.6 - 5.0 g/dl HISTORICAL RESULTS Bilirubin 0.5 0.3 - 1.1 mg/dl HISTORICAL RESULTS Bilirubin, direct 0.1 0.0 - 0.3 mg/dl HISTORICAL RESULTS Alk phos 55 38 - 126 Units/L HISTORICAL RESULTS AST 63(H) 11 - 47 Units/L HISTORICAL RESULTS ALT 39 7 - 53 Units/L HISTORICAL RESULTS Plasma 11/19/2015 2:26 AM ART TEACHER Devon Watson MD LAB BLOOD ORDERABLES Final Res ult Performing Organization Address [facility] de Phone Number HISTORICAL RESULTS * (ABNORMAL) Plasma basic metabolic panel (11/19/2015 2:26 AM ART TEACHER) Pathologist [facility] Sodium 141 135 - 145 mmol/L HISTORICAL RESULTS K, pl 3.6 3.3 - 4.9 mmol/L HISTORICAL RESULTS Chloride 99 97 - 110 mmol/L HISTORICAL RESULTS CO2 27 22 - 32 mmol/L HISTORICAL RESULTS A. gap 15 0 - 16 mmol/L HISTORICAL RESULTS Glucose 113 70 - 199 mg/dl HISTORICAL RESULTS BUN 5(L) 8 - 25 mg/dl HISTORICAL RESULTS Creatinine 0.64(L) 0.70 - 1.30 mg/dl HISTORICAL RESULTS Calcium 9.8 8.6 - 10.3 mg/dl HISTORICAL RESULTS Plasma 11/19/2015 2:26 AM ART TEACHER Devon Watson MD LAB BLOOD ORDERABLES Final Res ult Performing Organization Address [place]/[facility] Co de Phone Number HISTORICAL RESULTS * Serum lipase (11/19/2015 2:26 AM ART TEACHER) Pathologist [facility] Lip 47 0 - 99 Units/L HISTORICAL RESULTS Serum 11/19/2015 2:26 AM ART TEACHER Devon Watson MD LAB BLOOD ORDERABLES Final Res ult HISTORICAL RESULTS * (ABNORMAL) Blood cell count (CBC) (11/19/2015 2:26 AM ART TEACHER) WBC 6.9 3.8 - 9.8 K/cumm HISTORICAL RESULTS Eosinophils 2.1 0.0 - 6.0 % HISTORICAL RESULTS RBC 4.40(L) 4.50 - 5.70 M/cumm HISTORICAL RESULTS Basophils 1.1 0.0 - 3.0 % HISTORICAL RESULTS Hgb 14.0 13.8 - 17.2 g/dl HISTORICAL RESULTS Neutrophils, abs 3.8 1.8 - 6.6 K/cumm HISTORICAL RESULTS Hct 42.0 40.7 - 50.3 % HISTORICAL RESULTS Lymphocytes, abs 2.5 1.2 - 3.3 K/cumm HISTORICAL RESULTS MCV 95.4 80.0 - 97.6 fl HISTORICAL RESULTS Monocytes, absolute 0.5 0.2 - 1.2 K/cumm HISTORICAL RESULTS MCH 31.9 26.7 - 33.7 pg HISTORICAL RESULTS Eosinophils, abs 0.1 0.0 - 0.5 K/cumm HISTORICAL RESULTS MCHC 33.5 32.7 - 35.5 g/dl HISTORICAL RESULTS Basophils, abs 0.1 0.0 - 0.2 K/cumm HISTORICAL RESULTS Rdw 16.8(H) 11.8 - 14.6 % HISTORICAL RESULTS Platelets 189 140 - 440 K/cumm HISTORICAL RESULTS MPV 7.7 6.8 - 10.4 fl HISTORICAL RESULTS Neutrophils 54.3 38.7 - 74.5 % HISTORICAL RESULTS Lymphocytes 35.8 20.0 - 54.3 % HISTORICAL RESULTS Monos 6.7 4.3 - 13.5 % HISTORICAL RESULTS Blood specimen (specimen) 11/19/2015 2:26 AM ART TEACHER us Devon Watson MD LAB BLOOD ORDERABLES Final Res ult HISTORICAL RESULTS * DISCHARGE LABORATORY CUMULATIVE REPORT (11/19/2015) Narrative 11/19/2015 Ordered by an unspecified provider. 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
--- OUTSIDE RECORDS SUMMARY | 2024-11-04 22:17 | XMS_ITS | Encounter Summary ---
Author Organization [facility] Facility Care Team Providers Care Hospital Attendant Name Role Phone Unavailable Primary Care Provider Unavailabl e Encounter Details Date Type Department Care Team (Late st Contact Info) Description 07/11/2011 7:01 PM CDT - 07/12/2011 4:29 AM CDT Hospital Encounter 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
--- OUTSIDE RECORDS SUMMARY | 2024-11-04 22:17 | XMS_ITS | Encounter Summary ---
Author Organization [facility] Facility Care Team Providers Care Title Curator Name Role Phone Unavailable Primary Care Provider Unavailabl e Encounter Details Date Type Department Care Team (Latest Contact Info) Description 05/15/2013 - 05/15/2013 11:59 PM CDT Hospital Encounter [facility] Chronic pancreatitis (CMS/HCC) (HCC); Cyst and pseudocyst of pancreas Social History Tobacco Use Types Packs/Day Years Used Date Smoking Tobacco: Never Assessed Sex and Gender Information Value Date Recorded Sex Assigned at Not on file 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 ONESIMO VOSS, FINAL REPORT The radiology attending physician has personally reviewed this study, and has reviewed and/or edited this written report and agrees with it. ACC# ??Date Time ??Exam [id number] May 15, 2013 18:19:00 [id number] MRI Abdomen wwo contrast [id number] May 15, 2013 18:19:00 [id number] 3-D Rendering on Modality ACC# ??Date Time ??Exam [id number] May 15, 2013 18:19:00 [id number] MRI Abdomen wwo contrast [id number] May 15, 2013 18:19:00 [id number] 3-D Rendering on Modality EXAMINATION: ?? 1. ??MAGNETIC RESONANCE IMAGING OF THE ABDOMEN WITH AND WITHOUT CONTRAST 2. THREE DIMENSIONAL RECONSTRUCTION OF THE BILIARY TREE AND PANCREATIC DUCT HISTORY: 43-year-old man with a cystic pancreatic lesion. TECHNIQUE: Magnetic resonance imaging of the abdomen was performed prior to and following the uneventful administration of intravenous Gadolinium contrast. ??The raw data was processed on the scanner by the technologist for 3 dimensional reconstructions of the intrahepatic ducts, extrahepatics ducts, and pancreatic duct. Protocol: Liver MRCP Estimated GFR: >60 ml/min/1.73 meters squared Creatinine: 0.95 mg/dL Contrast: Optimark, 11 ml, single dose FINDINGS: No prior studies available for comparison. Liver: Liver parenchyma demonstrates normal enhancement and there are no focal liver lesions. Hepatic vasculature: Classic hepatic articular anatomy is present. The portal and hepatic veins are patent. Gallbladder: Normal. Pancreas: There is atrophy of the pancreatic body and mild dilatation of the distal pancreatic duct, compatible with chronic pancreatitis. There is also a 4.3 x 3.8 x 3.7 cm T2 hyperintense cysts in the pancreatic head. There are no enhancing nodular components. There is no intra or extrahepatic biliary ductal dilatation. No peripancreatic or periportal lymphadenopathy. ?? IMPRESSION: ?? 4.3 x 3.8 x 3.7 cm cyst in the pancreatic head, which given the patient's history and imaging findings of chronic pancreatitis is most compatible with a pseudocyst. ?? Requested By: ISMAEL ROJAS M.D. Dictated By: ?? ONESIMO VOSS, ?? on May 16 2013 ??8:37A This document has been electronically signed by: TAMIA JOHNSON M.D. on May 16 2013 12:08P Procedure Note Provider, MD Rhett - 02/22/2017 Jenn CHAVEZ-CUONG, FINAL REPORT The radiology attending physician has personally reviewed this study, and has reviewed and/or edited this written report and agrees with it. ACC# Date Time Exam [id number] May 15, 2013 18:19:00 [id number] MRI Abdomen wwo contrast [id number] May 15, 2013 18:19:00 [id number] 3-D Rendering on Modality ACC# Date Time Exam [id number] May 15, 2013 18:19:00 [id number] MRI Abdomen wwo contrast [id number] May 15, 2013 18:19:00 [id number] 3-D Rendering on Modality EXAMINATION: 1. MAGNETIC RESONANCE IMAGING OF THE ABDOMEN WITH AND WITHOUT CONTRAST 2. THREE DIMENSIONAL RECONSTRUCTION OF THE BILIARY TREE AND PANCREATIC DUCT HISTORY: 43-year-old man with a cystic pancreatic lesion. TECHNIQUE: Magnetic resonance imaging of the abdomen was performed prior to and following the uneventful administration of intravenous Gadolinium contrast. The raw data was processed on the scanner by the technologist for 3 dimensional reconstructions of the intrahepatic ducts, extrahepatics ducts, and pancreatic duct. Protocol: Liver MRCP Estimated GFR: >60 ml/min/1.73 meters squared Creatinine: 0.95 mg/dL Contrast: Optimark, 11 ml, single dose FINDINGS: No prior studies available for comparison. Liver: Liver parenchyma demonstrates normal enhancement and there are no focal liver lesions. Hepatic vasculature: Classic hepatic articular anatomy is present. The portal and hepatic veins are patent. Gallbladder: Normal. Pancreas: There is atrophy of the pancreatic body and mild dilatation of the distal pancreatic duct, compatible with chronic pancreatitis. There is also a 4.3 x 3.8 x 3.7 cm T2 hyperintense cysts in the pancreatic head. There are no enhancing nodular components. There is no intra or extrahepatic biliary ductal dilatation. No peripancreatic or periportal lymphadenopathy. IMPRESSION: 4.3 x 3.8 x 3.7 cm cyst in the pancreatic head, which given the patient's history and imaging findings of chronic pancreatitis is most compatible with a pseudocyst. Requested By: ISMAEL ROJAS M.D. Dictated By: ONESIMO VOSS, on May 16 2013 8:37A This document has been electronically signed by: TAMIA JOHNSON M.D. on May 16 2013 12:08P us Historical Provider MD MELÉNDEZ MRI PROCEDURES Final Result * 3-D Rendering on Modality (05/15/2013 6:19 PM CDT) Anatomical Region Laterality Modality N/A Magnetic Resonan ce 05/15/2013 6:19 PM CDT Narrative 05/16/2013 12:08 PM CDT TAMIA JOHNSON M.D. ONESIMO VOSS, FINAL REPORT The radiology attending physician has personally reviewed this study, and has reviewed and/or edited this written report and agrees with it. ACC# ??Date Time ??Exam [id number] May 15, 2013 18:19:00 [id number] MRI Abdomen wwo contrast [id number] May 15, 2013 18:19:00 [id number] 3-D Rendering on Modality ACC# ??Date Time ??Exam [id number] May 15, 2013 18:19:00 [id number] MRI Abdomen wwo contrast [id number] May 15, 2013 18:19:00 [id number] 3-D Rendering on Modality EXAMINATION: ?? 1. ??MAGNETIC RESONANCE IMAGING OF THE ABDOMEN WITH AND WITHOUT CONTRAST 2. THREE DIMENSIONAL RECONSTRUCTION OF THE BILIARY TREE AND PANCREATIC DUCT HISTORY: 43-year-old man with a cystic pancreatic lesion. TECHNIQUE: Magnetic resonance imaging of the abdomen was performed prior to and following the uneventful administration of intravenous Gadolinium contrast. ??The raw data was processed on the scanner by the technologist for 3 dimensional reconstructions of the intrahepatic ducts, extrahepatics ducts, and pancreatic duct. Protocol: Liver MRCP Estimated GFR: >60 ml/min/1.73 meters squared Creatinine: 0.95 mg/dL Contrast: Optimark, 11 ml, single dose FINDINGS: No prior studies available for comparison. Liver: Liver parenchyma demonstrates normal enhancement and there are no focal liver lesions. Hepatic vasculature: Classic hepatic articular anatomy is present. The portal and hepatic veins are patent. Gallbladder: Normal. Pancreas: There is atrophy of the pancreatic body and mild dilatation of the distal pancreatic duct, compatible with chronic pancreatitis. There is also a 4.3 x 3.8 x 3.7 cm T2 hyperintense cysts in the pancreatic head. There are no enhancing nodular components. There is no intra or extrahepatic biliary ductal dilatation. No peripancreatic or periportal lymphadenopathy. ?? IMPRESSION: ?? 4.3 x 3.8 x 3.7 cm cyst in the pancreatic head, which given the patient's history and imaging findings of chronic pancreatitis is most compatible with a pseudocyst. ?? Requested By: ISMAEL ROJAS M.D. Dictated By: ?? ONESIMO VOSS, ?? on May 16 2013 ??8:37A This document has been electronically signed by: TAMIA JOHNSON M.D. on May 16 2013 12:08P Procedure Note Provider, MD Rhett - 02/22/2017 TAMIA JOHNSON M.D. ONESIMO VOSS, FINAL REPORT The radiology attending physician has personally reviewed this study, and has reviewed and/or edited this written report and agrees with it. ACC# Date Time Exam [id number] May 15, 2013 18:19:00 [id number] MRI Abdomen wwo contrast [id number] May 15, 2013 18:19:00 [id number] 3-D Rendering on Modality ACC# Date Time Exam [id number] May 15, 2013 18:19:00 [id number] MRI Abdomen wwo contrast [id number] May 15, 2013 18:19:00 [id number] 3-D Rendering on Modality EXAMINATION: 1. MAGNETIC RESONANCE IMAGING OF THE ABDOMEN WITH AND WITHOUT CONTRAST 2. THREE DIMENSIONAL RECONSTRUCTION OF THE BILIARY TREE AND PANCREATIC DUCT HISTORY: 43-year-old man with a cystic pancreatic lesion. TECHNIQUE: Magnetic resonance imaging of the abdomen was performed prior to and following the uneventful administration of intravenous Gadolinium contrast. The raw data was processed on the scanner by the technologist for 3 dimensional reconstructions of the intrahepatic ducts, extrahepatics ducts, and pancreatic duct. Protocol: Liver MRCP Estimated GFR: >60 ml/min/1.73 meters squared Creatinine: 0.95 mg/dL Contrast: Optimark, 11 ml, single dose FINDINGS: No prior studies available for comparison. Liver: Liver parenchyma demonstrates normal enhancement and there are no focal liver lesions. Hepatic vasculature: Classic hepatic articular anatomy is present. The portal and hepatic veins are patent. Gallbladder: Normal. Pancreas: There is atrophy of the pancreatic body and mild dilatation of the distal pancreatic duct, compatible with chronic pancreatitis. There is also a 4.3 x 3.8 x 3.7 cm T2 hyperintense cysts in the pancreatic head. There are no enhancing nodular components. There is no intra or extrahepatic biliary ductal dilatation. No peripancreatic or periportal lymphadenopathy. IMPRESSION: 4.3 x 3.8 x 3.7 cm cyst in the pancreatic head, which given the patient's history and imaging findings of chronic pancreatitis is most compatible with a pseudocyst. Requested By: ISMAEL ROJAS M.D. Dictated By: ONESIMO VOSS on May 16 2013 8:37A This document has been electronically signed by: TAMIA JOHNSON M.D. on May 16 2013 12:08P Historical Provider MD MELÉNDEZ MRI PROCEDURES Final Result documented in this encounter Visit Diagnoses Diagnosis Chronic pancreatitis (CMS/HCC) (HCC) Chronic pancreatitis Cyst and pseudocyst of pancreas documented in this encounter
--- OUTSIDE RECORDS SUMMARY | 2024-11-04 22:17 | XMS_ITS | Encounter Summary ---
Author Organization [facility] Facility Care Team Providers Care Power System Operator Name Role Phone Unavailable Primary Care Provider Unavailabl e Encounter Details Date Type Department Care Team (Late st Contact Info) Description 01/10/2015 9:43 AM CDT - 01/10/2015 4:00 PM CDT Hospital Encounter [facility] Rocco Brambila MD [address] [place] [address] Cyst and pseudocyst of pancreas; Chronic pancreatitis (CMS/HCC) (HCC); Encounter for long-term (current) use of other medications; Tobacco use disorder; Essential hypertension Social History Tobacco Use Types Packs/Day Years Used Date Smoking Tobacco: Never Assessed Sex and Gender Information Value Date Recorded Sex Assigned at Not on file 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 Gender Identity Not on file Sexual Orientation Not on file documented as of this encounter Plan of Treatment Not on file documented as of this encounter Procedures Procedure Name Priority Date/Time Associated Diagnosis Comments FL ERCP BILIARY DUCT Routine 01/10/2015 1:33 PM CDT UPPER ENDOSCOPIC ULTRASONOGRAPHY REPORT 01/10/2015 CHOLANGIOPANCREATOGRAPH Y, RETROGRADE, ENDOSCOPIC 01/10/2015 CYTOLOGY 01/10/2015 documented in this encounter Results * XR ERCP BILIARY DUCT (01/10/2015 1:33 PM CDT) Anatomical Region Laterality Modality Body N/A Radiographic Vashti ging 01/10/2015 1:33 PM CDT Narrative 01/11/2015 11:35 AM CDT ABBIE POWERS M.D. AVINASH SAMUEL M.D. FINAL REPORT The radiology attending physician has personally reviewed this study, and has reviewed and/or edited this written report and agrees with it. ACC# ??Date Time ??Exam [id number] Jan 10, 2015 13:33:00 [id number] EndoCath Panc Prof Only EXAMINATION: ?Endoscopic Retrograde Pancreaticogram - pancreatic duct only Date: 01/10/2015 History: 44-year-old man with chronic pancreatitis. Findings: No prior studies available for comparison. 6 images from an ERP procedure are submitted by the hepatobiliary service. ??The casino floor walker image of the right upper quadrant of the abdomen is normal. ??Subsequent images show cannulation and opacification of the pancreatic duct. ??There is pancreatic ductal dilatation with multifocal strictures throughout the pancreatic duct. There is a high-grade stricture in the proximal pancreatic duct. Subsequent images demonstrate placement of a pancreatic duct stent. IMPRESSION: ?? 1. High-grade stricture in the proximal pancreatic duct with subsequent placement of pancreatic duct stent. Requested By: Dictated By: ?? AVINASH SAMUEL M.D. ??on Jan 11 2015 11:33A This document has been electronically signed by: ABBIE POWERS M.D. on Jan 11 2015 11:35A [id number] Procedure Note Provider, MD Rhett - 02/22/2017 ABBIE POWERS M.D. AVINASH SAMUEL M.D. FINAL REPORT The radiology attending physician has personally reviewed this study, and has reviewed and/or edited this written report and agrees with it. ACC# Date Time Exam [id number] Jan 10, 2015 13:33:00 [id number] EndoCath Panc Prof Only EXAMINATION: Endoscopic Retrograde Pancreaticogram - pancreatic duct only Date: 01/10/2015 History: 44-year-old man with chronic pancreatitis. Findings: No prior studies available for comparison. 6 images from an ERP procedure are submitted by the hepatobiliary service. The casino floor walker image of the right upper quadrant of the abdomen is normal. Subsequent images show cannulation and opacification of the pancreatic duct. There is pancreatic ductal dilatation with multifocal strictures throughout the pancreatic duct. There is a high-grade stricture in the proximal pancreatic duct. Subsequent images demonstrate placement of a pancreatic duct stent. IMPRESSION: 1. High-grade stricture in the proximal pancreatic duct with subsequent placement of pancreatic duct stent. Requested By: Dictated By: AVINASH SAMUEL M.D. on Jan 11 2015 11:33A This document has been electronically signed by: ABBIE POWERS M.D. on Jan 11 2015 11:35A [id number] Historical Provider MD MELÉNDEZ FLUOROSCOPY PROCEDURE S Final Result * Cytology (01/10/2015) Narrative 01/10/2015 Ordered by an unspecified provider. [facility] Provider LAB CYTOLOGY ORDERABLES F inal Result * CHOLANGIOPANCREATOGRAPHY, RETROGRADE, ENDOSCOPIC (01/10/2015) Anatomical Region Laterality Modality N/A Radiographic Vashti ging Narrative 01/10/2015 Ordered by an unspecified provider. [facility] Provider MD MELÉNDEZ XR PROCEDURES Final R esult * UPPER ENDOSCOPIC ULTRASONOGRAPHY REPORT (01/10/2015) Anatomical Region Laterality Modality Other Narrative 01/10/2015 Ordered by an unspecified provider. Historical Provider GI PROCEDURE ORDERABLES F inal Result documented in this encounter Visit Diagnoses Diagnosis Cyst and pseudocyst of pancreas Chronic pancreatitis (CMS/HCC) (HCC) Chronic pancreatitis Encounter for long-term (current) use of other medications Tobacco use disorder Essential hypertension Unspecified essential hypertension documented in this encounter
--- OUTSIDE RECORDS SUMMARY | 2024-11-04 22:17 | XMS_ITS | Encounter Summary ---
Author Organization [facility] Facility Care Team Providers Care Cylinder Machine Operator Name Role Phone Unavailable Primary Care Provider Unavailabl e Encounter Details Date Type Department Care Team (Late st Contact Info) Description 05/08/2013 10:23 AM CDT - 05/08/2013 4:00 PM T Hospital Encounter [facility] CL[facility]CONV Christiano Heller MD [address] [address] Acute pancreatitis; Tobacco use disorder; Disease of pancreas; Hepatitis C virus infection without hepatic coma; Essential hypertension; Sprain of rotator cuff capsule; Vitamin D deficiency Social History Tobacco Use Types Packs/Day Years Used Date Smoking Tobacco: Never Assessed Sex and Gender Information Value Date Recorded Sex Assigned at Not on file 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
--- OUTSIDE RECORDS SUMMARY | 2024-11-04 22:17 | XMS_ITS | Encounter Summary ---
Author Organization [facility] Facility Care Team Providers Care Media Reporter Name Role Phone Unavailable Primary Care Provider Unavailabl e Encounter Details Date Type Department Care Team (Late st Contact Info) Description 05/01/2008 2:48 PM CDT - 05/01/2008 4:00 PM CDT Hospital Encounter [facility] Glen Moncada MD [address] [place] [address] Carpal tunnel syndrome; Other specified pre-operative examination Social History Tobacco Use Types Packs/Day Years Used Date Smoking Tobacco: Never Assessed Sex and Gender Information Value Date Recorded Sex Assigned at Not on file 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
--- OUTSIDE RECORDS SUMMARY | 2024-11-04 22:17 | XMS_ITS | Encounter Summary ---
Author Organization [facility] Facility Care Team Providers Care Gasoline Power Shovel Operator Name Role Phone Unavailable Primary Care Provider Unavailabl e Encounter Details Date Type Department Care Team (Late st Contact Info) Description 09/13/2012 11:01 AM MUD JACK NOZZLEMAN - 09/13/2012 4:00 PM MUD JACK NOZZLEMAN Hospital En[facility] Clement[facility] MD [address] [address] Social History Tobacco Use Types Packs/Day Years Used Date Smoking Tobacco: Never Assessed Sex and Gender Information Value Date Recorded Sex Assigned at Not on file 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
--- OUTSIDE RECORDS SUMMARY | 2024-11-04 22:17 | XMS_ITS | Encounter Summary ---
Author Organization [facility] Facility Care Team Providers Care Design Engineer Products Name Role Phone Unavailable Primary Care Provider Unavailabl e Encounter Details Date Type Department Care Team (Late st Contact Info) Description 07/10/2013 - 07/10/2013 11:59 PM CDT Hospital Encounter 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 Gender Identity Not on file Sexual Orientation Not on file documented as of this encounter Plan of Treatment Not on file documented as of this encounter Procedures Procedure Name Priority Date/Time Associated Diagnosis Comments MRI CERVICAL SPINE WO CONTRAST Routine 07/10/2013 8:39 PM CDT documented in this encounter Results * MRI Cervical Spine WO Contrast (07/10/2013 8:39 PM CDT) Anatomical Region Laterality Modality Spine N/A Magnetic Resonan ce 07/10/2013 8:39 PM CDT Narrative 07/12/2013 8:37 AM CDT LISANDRA SEGAL MD, PHD ROB FLETCHER, FINAL REPORT The radiology attending physician has personally reviewed this study, and has reviewed and/or edited this written report and agrees with it. ACC# ??Date Time ??Exam [id number] Jul 10, 2013 20:39:00 [id number] MRI Cervical Spine wo cont EXAMINATION: ? Cervical spine MRI without ??contrast. Date: 07/10/2013 HISTORY: ?Radicular neck pain. Technique: ?? Multi-planar multi-weighted magnetic resonance imaging of the cervical spine was performed without administration of intravenous contrast using the standard cervical spine protocol. Contrast information: None used Comparison: ??None available FINDINGS: There is mild posterior listhesis of C4 on C5 and C5 on C6. There is straightening of the cervical spine. Multilevel degenerative changes in the form of disc desiccation, loss of disc height and diffuse disc bulges are identified, predominantly at C3-C4, C4-C5, C5-C6 and C6-C7. Marginal osteophytes identified at multiple levels Vertebral bodies demonstrate normal signal intensity on all sequences. ?? The craniocervical junction is normal. The visualized portion of skull base and the posterior fossa are normal ??The spinal cord demonstrates normal signal intensity on all sequences. ?? No soft tissue abnormality is identified. Normal signal voids are present in the vertebral arteries. C2-3: The disk is normal in configuration. There is no facet arthropathy. There is minimal left uncovertebral joint disease. There is no foraminal stenosis. There is no spinal canal stenosis. C3-4: There is disc osteophyte complex indenting over the thecal sac. There is no facet arthropathy. There is left mild uncovertebral joint disease. There is minimal left foraminal stenosis. There is no spinal canal stenosis. C4-5: There is posterior disc osteophyte complex causing indentation over the thecal sac. There is no facet arthropathy. ??There is no uncovertebral joint disease. There is minimal left foraminal stenosis. There is no spinal canal stenosis. C5-6: There is posterior disc osteophyte complex causing mild spinal canal stenosis. There is no facet arthropathy. There is mild right uncovertebral joint disease. There is mild right foraminal stenosis. C6-7: There is a small posterior disc osteophyte complex There is no facet arthropathy. There is no uncovertebral joint disease. There is no foraminal stenosis. There is no spinal canal stenosis. C7-T1: The disk is normal in configuration. There is no facet arthropathy. ??There is no uncovertebral joint disease. There is no foraminal stenosis. There is no spinal canal stenosis. IMPRESSION: ?? 1. Mild degenerative changes in the cervical spine, most pronounced at C5-C6 mild spinal canal stenosis Requested By: Nathaly Sweet ??M.D. Dictated By: ?? ROB FLETCHER, ?? on Jul 11 2013 ??9:10A This document has been electronically signed by: LISANDRA SEGAL MD, PHD on Jul 12 2013 ??8:37A Procedure Note Provider, MD Rhett - 02/22/2017 LISANDRA SEGAL MD, PHD ROB FLETCHER, FINAL REPORT The radiology attending physician has personally reviewed this study, and has reviewed and/or edited this written report and agrees with it. ACC# Date Time Exam [id number] Jul 10, 2013 20:39:00 [id number] MRI Cervical Spine wo cont EXAMINATION: Cervical spine MRI without contrast. Date: 07/10/2013 HISTORY: Radicular neck pain. Technique: Multi-planar multi-weighted magnetic resonance imaging of the cervical spine was performed without administration of intravenous contrast using the standard cervical spine protocol. Contrast information: None used Comparison: None available FINDINGS: There is mild posterior listhesis of C4 on C5 and C5 on C6. There is straightening of the cervical spine. Multilevel degenerative changes in the form of disc desiccation, loss of disc height and diffuse disc bulges are identified, predominantly at C3-C4, C4-C5, C5-C6 and C6-C7. Marginal osteophytes identified at multiple levels Vertebral bodies demonstrate normal signal intensity on all sequences. The craniocervical junction is normal. The visualized portion of skull base and the posterior fossa are normal The spinal cord demonstrates normal signal intensity on all sequences. No soft tissue abnormality is identified. Normal signal voids are present in the vertebral arteries. C2-3: The disk is normal in configuration. There is no facet arthropathy. There is minimal left uncovertebral joint disease. There is no foraminal stenosis. There is no spinal canal stenosis. C3-4: There is disc osteophyte complex indenting over the thecal sac. There is no facet arthropathy. There is left mild uncovertebral joint disease. There is minimal left foraminal stenosis. There is no spinal canal stenosis. C4-5: There is posterior disc osteophyte complex causing indentation over the thecal sac. There is no facet arthropathy. There is no uncovertebral joint disease. There is minimal left foraminal stenosis. There is no spinal canal stenosis. C5-6: There is posterior disc osteophyte complex causing mild spinal canal stenosis. There is no facet arthropathy. There is mild right uncovertebral joint disease. There is mild right foraminal stenosis. C6-7: There is a small posterior disc osteophyte complex There is no facet arthropathy. There is no uncovertebral joint disease. There is no foraminal stenosis. There is no spinal canal stenosis. C7-T1: The disk is normal in configuration. There is no facet arthropathy. There is no uncovertebral joint disease. There is no foraminal stenosis. There is no spinal canal stenosis. IMPRESSION: 1. Mild degenerative changes in the cervical spine, most pronounced at C5-C6 mild spinal canal stenosis Requested By: Nathaly Sweet M.D. Dictated By: ROB FLETCHER on Jul 11 2013 9:10A This document has been electronically signed by: LISANDRA SEGAL MD, PHD on Jul 12 2013 8:37A Historical Provider MD MELÉNDEZ MRI PROCEDURES Final Result documented in this encounter Visit Diagnoses Diagnosis Brachial neuritis Brachial neuritis or radiculitis nos documented in this encounter
--- OUTSIDE RECORDS SUMMARY | 2024-11-04 22:17 | XMS_ITS | Encounter Summary ---
Author Organization [facility] Facility Care Team Providers Care Neurophysiological Technician Name Role Phone Unavailable Primary Care Provider Unavailabl e Encounter Details Date Type Department Care Team (Late st Contact Info) Description 08/02/2013 1:00 PM CDT - 08/02/2013 4:00 PM CDT Hospital Encounter [facility] Modesto Durham MD [address] [facility] [address] [place] [address] Cervicalgia; Pain in joint, shoulder region; Spinal stenosis in cervical region Social History Tobacco Use Types Packs/Day Years Used Date Smoking Tobacco: Never Assessed Sex and Gender Information Value Date Recorded Sex Assigned at Not on file 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
--- OUTSIDE RECORDS SUMMARY | 2024-11-04 22:17 | XMS_ITS | Encounter Summary ---
Author Organization [facility] Facility Care Team Providers Care Donor Services Specialist Name Role Phone Unavailable Primary Care Provider Unavailabl e Encounter Details Date Type Department Care Team (Late st Contact Info) Description 05/07/2008 9:45 AM CDT - 05/07/2008 4:00 PM T Hospital Encounter [facility] Glen Moncada MD [address] [place] [address] Carpal tunnel syndrome Social History Tobacco Use Types Packs/Day Years Used Date Smoking Tobacco: Never Assessed Sex and Gender Information Value Date Recorded Sex Assigned at Not on file 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
--- OUTSIDE RECORDS SUMMARY | 2024-11-04 22:17 | XMS_ITS | Encounter Summary ---
Author Organization [facility] Facility Care Team Providers Care Formal Waiter/Waitress Name Role Phone Unavailable Primary Care Provider Unavailabl e Encounter Details Date Type Department Care Team (Late st Contact Info) Description 10/14/2015 3:04 PM MOLD PRESSER - 10/14/2015 9:10 PM MOLD PRESSER Hospital Encounter [facility] CLINCON[facility] Turner MD [address] [place] [address] Alcohol abuse with uncomplicated intoxication (CMS/HCC); Adjustment disorder; Nonspecific elevation of levels of transaminase and lactic acid dehydrogenase (LDH); Acute pharyngitis due to other specified organisms; Other viral agents as the cause of diseases classified elsewhere; Gastro-esophageal reflux disease without esophagitis; Essential (primary) hypertension; 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 Social History Tobacco Use Types Packs/Day Years Used Date Smoking Tobacco: Never Assessed Sex and Gender Information Value Date Recorded Sex Assigned at Not on file 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 Gender Identity Not on file Sexual Orientation Not on file documented as of this encounter Plan of Treatment Not on file documented as of this encounter Procedures Procedure Name Priority Date/Time Associated Diagnosis Comments SERUM LIPASE Routine 10/14/2015 4:31 PM MOLD PRESSER PLASMA HEPATIC FUNCTION PANEL Routine 10/14/2015 4:31 PM MOLD PRESSER PLASMA BASIC METABOLIC PANEL Routine 10/14/2015 4:31 PM MOLD PRESSER BLOOD CELL COUNT (CBC) Routine 10/14/2015 3:42 PM MOLD PRESSER DISCHARGE LABORATORY CUMULATIVE REPORT 10/14/2015 documented in this encounter Results * (ABNORMAL) Plasma hepatic function panel (10/14/2015 4:31 PM MOLD PRESSER) Pathologist [facility] Protein, pl 8.5 6.5 - 8.5 g/dl HISTORICAL RESULTS Alb 4.9 3.6 - 5.0 g/dl HISTORICAL RESULTS Bilirubin 0.5 0.3 - 1.1 mg/dl HISTORICAL RESULTS Bilirubin, direct See Comment 0.0 - 0.3 mg/dl HISTORICAL RESULTS Comment:{CRDT; Hemolyzed spe cimen} Alk phos 62 38 - 126 Units/L HISTORICAL RESULTS AST 97(H) 11 - 47 Units/L HISTORICAL RESULTS Comment:{Hemolyzed; result m ay be falsely elevated.} ALT 78(H) 7 - 53 Units/L HISTORICAL RESULTS Plasma 10/14/2015 4:31 PM MOLD PRESSER Roe Ackerman MD LAB BLOOD ORDERABLES Final Result HISTORICAL RESULTS * (ABNORMAL) Plasma basic metabolic panel (10/14/2015 4:31 PM MOLD PRESSER) Pathologist [facility] Sodium 144 135 - 145 mmol/L HISTORICAL RESULTS K, pl 5.0(H) 3.3 - 4.9 mmol/L HISTORICAL RESULTS Comment: Hemolyzed; (++++); potassium value may be falsely elevated by as much as 1.1 - 1.6 mmol/L. Suggest redraw and reanalysis. Chloride 101 97 - 110 mmol/L HISTORICAL RESULTS CO2 27 22 - 32 mmol/L HISTORICAL RESULTS A. gap 16 0 - 16 mmol/L HISTORICAL RESULTS Glucose 80 70 - 199 mg/dl HISTORICAL RESULTS BUN 9 8 - 25 mg/dl HISTORICAL RESULTS Creatinine 0.70 0.70 - 1.30 mg/dl HISTORICAL RESULTS Calcium 9.7 8.6 - 10.3 mg/dl HISTORICAL RESULTS Plasma 10/14/2015 4:31 PM MOLD PRESSER Roe Ackerman MD LAB BLOOD ORDERABLES Final Result HISTORICAL RESULTS * Serum lipase (10/14/2015 4:31 PM MOLD PRESSER) Lip 22 0 - 99 Units/L HISTORICAL RESULTS Serum 10/14/2015 4:31 PM MOLD PRESSER Roe Ackerman MD LAB BLOOD ORDERABLES Final Result Performing Organization Address City/[facility] de Phone Number HISTORICAL RESULTS * Blood cell count (CBC) (10/14/2015 3:42 PM MOLD PRESSER) WBC 6.7 3.8 - 9.8 K/cumm HISTORICAL RESULTS RBC 4.80 4.50 - 5.70 M/cumm HISTORICAL RESULTS Hgb 15.3 13.8 - 17.2 g/dl HISTORICAL RESULTS Hct 45.6 40.7 - 50.3 % HISTORICAL RESULTS MCV 94.9 80.0 - 97.6 fl HISTORICAL RESULTS MCH 31.9 26.7 - 33.7 pg HISTORICAL RESULTS MCHC 33.5 32.7 - 35.5 g/dl HISTORICAL RESULTS Rdw 13.6 11.8 - 14.6 % HISTORICAL RESULTS Platelets 158 140 - 440 K/cumm HISTORICAL RESULTS MPV 7.5 6.8 - 10.4 fl HISTORICAL RESULTS Neutrophils 63.2 38.7 - 74.5 % HISTORICAL RESULTS Lymphocytes 30.7 20.0 - 54.3 % HISTORICAL RESULTS Monos 4.4 4.3 - 13.5 % HISTORICAL RESULTS Eosinophils 0.9 0.0 - 6.0 % HISTORICAL RESULTS Basophils 0.8 0.0 - 3.0 % HISTORICAL RESULTS Neutrophils, abs 4.2 1.8 - 6.6 K/cumm HISTORICAL RESULTS Lymphocytes, abs 2.0 1.2 - 3.3 K/cumm HISTORICAL RESULTS Monocytes, absolute 0.3 0.2 - 1.2 K/cumm HISTORICAL RESULTS Eosinophils, abs 0.1 0.0 - 0.5 K/cumm HISTORICAL RESULTS Basophils, abs 0.1 0.0 - 0.2 K/cumm HISTORICAL RESULTS Blood specimen (specimen) 10/14/2015 3:42 PM MOLD PRESSER Roe Ackerman MD LAB BLOOD ORDERABLES Final Result HISTORICAL RESULTS * DISCHARGE LABORATORY CUMULATIVE REPORT (10/14/2015) Narrative 10/14/2015 Ordered by an unspecified provider. Historical Provider LAB BLOOD ORDERABLES Carrie l Result documented in this encounter Visit Diagnoses Diagnosis Alcohol abuse with uncomplicated intoxication (CMS/HCC) (HCC) Adjustment disorder Unspecified adjustment reaction Nonspecific elevation of levels of transaminase and lactic acid dehydrogenase (LDH) Acute pharyngitis due to other specified organisms Other viral agents as the cause of diseases classified elsewhere Gastro-esophageal reflux disease without esophagitis Essential (primary) hypertension Unspecified essential hypertension Other custodial (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 documented in this encounter
--- OUTSIDE RECORDS SUMMARY | 2024-11-04 22:17 | XMS_ITS | Encounter Summary ---
Author Organization [facility] Facility Care Team Providers Care Hand Coremaker Name Role Phone Unavailable Primary Care Provider Unavailabl e Encounter Details Date Type Department Care Team (Late st Contact Info) Description 10/26/2014 2:54 PM INTER COM SERVICER - 10/26/2014 9:34 PM INTER COM SERVICER Hospital Encounter [facility] Cheikh Gusman MD [address] [facility] [address] [place] [address] Abdominal pain; Esophageal reflux; Essential hypertension; Cyst and pseudocyst of pancreas; Encounter for long-term (current) use of other medications; Tobacco use disorder Social History Tobacco Use Types Packs/Day Years Used Date Smoking Tobacco: Never Assessed Sex and Gender Information Value Date Recorded Sex Assigned at Not on file 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 Sex Male 2:37 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 COM 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 Gender Identity Not on file Sexual Orientation Not on file documented as of this encounter Plan of Treatment Not on file documented as of this encounter Procedures Procedure Name Priority Date/Time Associated Diagnosis Comments SERUM LIPASE Routine 10/26/2014 3:52 PM INTER COM SERVICER PLASMA HEPATIC FUNCTION PANEL Routine 10/26/2014 3:52 PM INTER COM SERVICER PLASMA BASIC METABOLIC PANEL Routine 10/26/2014 3:52 PM INTER COM SERVICER BLOOD CELL COUNT (CBC) Routine 10/26/2014 3:52 PM INTER COM SERVICER DISCHARGE LABORATORY CUMULATIVE REPORT Routine 10/26/2014 12:00 AM INTER COM SERVICER documented in this encounter Results * Plasma hepatic function panel (10/26/2014 3:52 PM INTER COM SERVICER) Pathologist [facility] Protein, pl 7.3 6.5 - 8.5 g/dl HISTORICAL RESULTS Alb 4.5 3.6 - 5.0 g/dl HISTORICAL RESULTS Bilirubin 0.4 0.3 - 1.1 mg/dl HISTORICAL RESULTS Bilirubin, direct 0.1 0.0 - 0.3 mg/dl HISTORICAL RESULTS Alk phos 60 38 - 126 Units/L HISTORICAL RESULTS AST 29 11 - 47 Units/L HISTORICAL RESULTS ALT 14 7 - 53 Units/L HISTORICAL RESULTS Plasma 10/26/2014 3:52 PM INTER COM SERVICER Anirudh Carrillo MD LAB BLOOD ORDERABLES Final Res ult Performing Organization Address [facility] de Phone Number HISTORICAL RESULTS * (ABNORMAL) Plasma basic metabolic panel (10/26/2014 3:52 PM INTER COM SERVICER) [facility] Sodium 139 135 - 145 mmol/L HISTORICAL RESULTS K, pl 4.6 3.3 - 4.9 mmol/L HISTORICAL RESULTS Comment: Hemolyzed; (++); potassium value may be falsely elevated by as much as 0.3 - 0.5 mmol/L. Suggest redraw and reanalysis. Chloride 102 97 - 110 mmol/L HISTORICAL RESULTS CO2 26 22 - 32 mmol/L HISTORICAL RESULTS A. gap 11 0 - 16 mmol/L HISTORICAL RESULTS Glucose 99 70 - 199 mg/dl HISTORICAL RESULTS BUN 6(L) 8 - 25 mg/dl HISTORICAL RESULTS Creatinine 0.93 0.70 - 1.30 mg/dl HISTORICAL RESULTS Calcium 9.4 8.6 - 10.3 mg/dl HISTORICAL RESULTS Plasma 10/26/2014 3:52 PM INTER COM SERVICER Anirudh Carrillo MD LAB BLOOD ORDERABLES Final Res ult Performing Organization Address [facility] de Phone Number HISTORICAL RESULTS * Serum lipase (10/26/2014 3:52 PM INTER COM SERVICER) Pathologist [facility] Lip 35 0 - 99 Units/L HISTORICAL RESULTS Serum 10/26/2014 3:52 PM INTER COM SERVICER us Anirudh Carrillo MD LAB BLOOD ORDERABLES Final Res ult HISTORICAL RESULTS * (ABNORMAL) Blood cell count (CBC) (10/26/2014 3:52 PM INTER COM SERVICER) MCH 32.1 26.7 - 33.7 pg HISTORICAL RESULTS WBC 9.8 3.8 - 9.8 K/cumm HISTORICAL RESULTS MCHC 33.7 32.7 - 35.5 g/dl HISTORICAL RESULTS RBC 4.37(L) 4.50 - 5.70 M/cumm HISTORICAL RESULTS Rdw 13.9 11.8 - 14.6 % HISTORICAL RESULTS Hgb 14.0 13.8 - 17.2 g/dl HISTORICAL RESULTS Platelets 192 140 - 440 K/cumm HISTORICAL RESULTS Hct 41.7 40.7 - 50.3 % HISTORICAL RESULTS MPV 7.7 6.8 - 10.4 fl HISTORICAL RESULTS MCV 95.4 80.0 - 97.6 fl HISTORICAL RESULTS Neutrophils 69.0 38.7 - 74.5 % HISTORICAL RESULTS Lymphocytes 23.6 20.0 - 54.3 % HISTORICAL RESULTS Monos 4.8 4.3 - 13.5 % HISTORICAL RESULTS Eosinophils 2.0 0.0 - 6.0 % HISTORICAL RESULTS Basophils 0.6 0.0 - 3.0 % HISTORICAL RESULTS Neutrophils, abs 6.8(H) 1.8 - 6.6 K/cumm HISTORICAL RESULTS Lymphocytes, abs 2.3 1.2 - 3.3 K/cumm HISTORICAL RESULTS Monocytes, absolute 0.5 0.2 - 1.2 K/cumm HISTORICAL RESULTS Eosinophils, abs 0.2 0.0 - 0.5 K/cumm HISTORICAL RESULTS Basophils, abs 0.1 0.0 - 0.2 K/cumm HISTORICAL RESULTS Blood specimen (specimen) 10/26/2014 3:52 PM INTER COM SERVICER us Anirudh Carrillo MD LAB BLOOD ORDERABLES Final Res ult HISTORICAL RESULTS * Discharge Laboratory Cumulative Report (10/26/2014 12:00 AM INTER COM SERVICER) 10/26/2014 Narrative HISTORICAL RESULTS - 10/27/2014 3:17 AM INTER COM SERVICER ?[facility] ?Department of Laboratories ? [facility] ? [address] [address] [address] Patient Name: ??RUDYYARIEL CASPER Med Rec Number: [id number] Fin Number: ?[id number] Date: ?1970 Sex/Age: ? Male 44 years Admit Date: ?10/26/2014 Discharge Date: 10/26/2014 Doctor: ?Cheikh Damon Facility: ?[facility] Location: ?EM3-1 Chart Printed: 10/27/2014 03:17 ?? * Abnormal ?? C Critical ?? f Footnote ?? ^ Corrected ?? L Low ?? H High ? i Interp Data ?? @ Reference Lab ?Chart Type:Cumulative ? SELECTED ELECTROLYTES ?Test: Sodium ? Plasma Potassium ??Chloride ? Reference: [135-145] ??[3.3-4.9] ? [97-110] ? Units: mmol/L ? mmol/L ?mmol/L 10/26/2014 ?? 15:52:00 ?? 139 ?4.6 ??f ?102 10/26/2014 15:52:00 ??Plasma Potassium: Hemolyzed; (++); potassium value may be falsely elevated by as much as 0.3 - 0.5 mmol/L. Suggest redraw and reanalysis. ?Test: Total CO2 ??Anion Gap ? Reference: [22-32] ?[0-16] ? Units: mmol/L ? mmol/L 10/26/2014 ?? 15:52:00 ?? 26 ? 11 ? STANDARD BLOOD CHEMISTRY ?Test: BUN ? Creatinine ?? Total Bilirubin ? Reference: [8-25] ??[0.70-1.30] ??[0.3-1.1] ? Units: mg/dL ?? mg/dL ?mg/dL 10/26/2014 ?? 15:52:00 ?? 6 ??L ?0.93 ? 0.4 ?Test: Bilirubin, Direct ??Glucose ?? Total Calcium ? Reference: [0.0-0.3] ?[70-199] ??[8.6-10.3] ? Units: mg/dL ?mg/dL ? mg/dL 10/26/2014 ?? 15:52:00 ?? 0.1 ?99 ?9.4 ?Test: Plasma Total Protein ??Albumin ? Reference: [6.5-8.5] ? [3.6-5.0] ? Units: g/dL ?g/dL 10/26/2014 ?? 15:52:00 ?? 7.3 ? 4.5 ?ENZYMES ?Test: Alkaline Phosphatase ??ALT ?AST ? Reference: [38-126] ?[7-53] ?? [11-47] ? Units: Units/L ? Units/L ??Units/L 10/26/2014 ?? 15:52:00 ?? 60 ?14 ? 29 ?Test: Lipase ? Reference: [0-99] ? Units: Units/L 10/26/2014 ?? 15:52:00 ?? 35 ? COMPLETE BLOOD COUNT ?Test: WBC ?RBC ?Hgb ? Reference: [3.8-9.8] ??[4.50-5.70] ??[13.8-17.2] ? Units: K/cumm ? M/cumm ? g/dL 10/26/2014 ?? 15:52:18 ?? 9.8 ?4.37 ??L ?14.0 ?Test: Hct ?Platelet Ct ??MCV ? Reference: [40.7-50.3] ??[140-440] ?[80.0-97.6] ? Units: % ?K/cumm ? fL 10/26/2014 ?? 15:52:18 ?? 41.7 ? 192 ?95.4 ?Test: MCH ?MCHC ? RDW ? Reference: [26.7-33.7] ??[32.7-35.5] ??[11.8-14.6] ? Units: pg ? g/dL ? % 10/26/2014 ?? 15:52:18 ?? 32.1 ? 33.7 ? 13.9 ?Test: MPV ? Reference: [6.8-10.4] ? Units: fL 10/26/2014 ?? 15:52:18 ?? 7.7 ? AUTOMATED WHITE CELL DIFFERENTIAL ?Test: Neut Pct Auto ??Lymph Pct Auto ??Platte Pct Auto ? Reference: [38.7-74.5] ?[20.0-54.3] ? [4.3-13.5] ? Units: % ?% ? % 10/26/2014 ?? 15:52:18 ?? 69.0 ? 23.6 ?4.8 ?Test: Eos Pct Auto ??Baso Pct Auto ??Neut Abs Auto ? Reference: [0.0-6.0] ? [0.0-3.0] ?[1.8-6.6] ? Units: % ? % ?K/cumm 10/26/2014 ?? 15:52:18 ?? 2.0 ? 0.6 ?6.8 ??H ? AUTOMATED WHITE CELL DIFFERENTIAL ?Test: Lymph Abs Auto ??Platte Abs Auto ??Eos Abs Auto ? Reference: [1.2-3.3] ? [0.2-1.2] ?[0.0-0.5] ? Units: K/cumm ?K/cumm ? K/cumm 10/26/2014 ?? 15:52:18 ?? 2.3 ? 0.5 ?0.2 ?Test: Baso Abs Auto ? Reference: [0.0-0.2] ? Units: K/cumm 10/26/2014 ?? 15:52:18 ?? 0.1 us Historical Provider LAB BLOOD ORDERABLES Carrie khanna Result HISTORICAL RESULTS documented in this encounter Visit Diagnoses Diagnosis Abdominal pain Abdominal pain, unspecified site Esophageal reflux Essential hypertension Unspecified essential hypertension Cyst and pseudocyst of pancreas Encounter for long-term (current) use of other medications Tobacco use disorder documented in this encounter
--- OUTSIDE RECORDS SUMMARY | 2024-11-04 22:17 | XMS_ITS | Encounter Summary ---
Author Organization [facility] Facility Care Team Providers Care Cloth Finishing Range Back Tender Name Role Phone Unavailable Primary Care Provider Unavailabl e Encounter Details Date Type Department Care Team (Late st Contact Info) Description 09/06/2012 9:08 AM DRIVERS' CASH CLERK - 09/06/2012 4:00 PM DRIVERS' CASH CLERK Hospital Encounter [facility] Christiano Heller MD [address] [address] Pain in joint, shoulder region; Tobacco use disorder Social History Tobacco Use Types Packs/Day Years Used Date Smoking Tobacco: Never Assessed Sex and Gender Information Value Date Recorded Sex Assigned at Not on file 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
--- OUTSIDE RECORDS SUMMARY | 2024-11-04 22:17 | XMS_ITS | Encounter Summary ---
Author Organization 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 Name Role Phone Unavailable Primary Care Provider Unavailabl e Encounter Details Date Type Department Care Team (Latest Contact Info) Description 11/22/2012 - 11/22/2012 11:59 PM RISK SPECIALIST Hospital Encounter [facility] Momo Shah MD [id number] [place] [address] Supraspinatus sprain and strain; Pain in joint, shoulder region Social History Tobacco Use Types Packs/Day Years Used Date Smoking Tobacco: Never Assessed Sex and Gender Information Value Date Recorded Sex Assigned at Not on file Legal Sex Male 2:37 PM RISK SPECIALIST Gender Identity Not on file Sexual Orientation Not on file documented as of this encounter Plan of Treatment Not on file documented as of this encounter Procedures Procedure Name Priority Date/Time Associated Diagnosis Comments US EXTREMITY COMPLETE Routine 11/22/2012 3:12 PM RISK SPECIALIST documented in this encounter Results * US Extremity Complete (11/22/2012 3:12 PM RISK SPECIALIST) Anatomical Region Laterality Modality Extremity N/A Ultrasound 11/22/2012 3:12 PM RISK SPECIALIST Narrative 11/22/2012 3:33 PM RISK SPECIALIST JASWINDER DE OLIVEIRA M.D. FINAL REPORT ACC# ??Date Time ??Exam [id number] Nov 22, 2012 15:12:00 [id number] Extrm Sono Shoulder R EXAMINATION: ? SHOULDER SONOGRAM HISTORY: ??Right shoulder pain. FINDINGS: Right Shoulder The biceps tendon is intact and located in the groove. There is no tendon sheath fluid and there is no subdeltoid bursal effusion.The subscapularis tendon is normal. ?? The rotator cuff is normal in thickness, contour and echogenicity.There is no tendinopathy of the supraspinatus and infraspinatus tendons.Small undersurface partial thickness tear of the supraspinatus tendon measuring 4 x 5 mm seen immediately posterior to the biceps tendon. There is no fatty infiltration of the supraspinatus, infraspinatus and teres minor muscles. IMPRESSION: ?Tiny undersurface partial thickness tear of the supraspinatus tendon. Requested By: MOMO DUNCAN ??Jenn HO Dictated By: ?? JASWINDER DE OLIVEIRA M.D. ??on Nov 22 2012 ??3:33P This document has been electronically signed by: JASWINDER DE OLIVEIRA M.D. on Nov 22 2012 ??3:33P Procedure Note Provider, MD Rhett - 02/22/2017 JASWINDER DE OLIVEIRA M.D. FINAL REPORT ACC# Date Time Exam [id number] Nov 22, 2012 15:12:00 [id number] Extr Sono Shoulder R EXAMINATION: SHOULDER SONOGRAM HISTORY: Right shoulder pain. FINDINGS: Right Shoulder The biceps tendon is intact and located in the groove. There is no tendon sheath fluid and there is no subdeltoid bursal effusion.The subscapularis tendon is normal. The rotator cuff is normal in thickness, contour and echogenicity.There is no tendinopathy of the supraspinatus and infraspinatus tendons.Small undersurface partial thickness tear of the supraspinatus tendon measuring 4 x 5 mm seen immediately posterior to the biceps tendon. There is no fatty infiltration of the supraspinatus, infraspinatus and teres minor muscles. IMPRESSION: Tiny undersurface partial thickness tear of the supraspinatus tendon. Requested By: MOMO DUNCAN M.D. HO Dictated By: JASWINDER DE OLIVEIRA M.D. on Nov 22 2012 3:33P This document has been electronically signed by: JASWINDER DE OLIVEIRA M.D. on Nov 22 2012 3:33P us Historical Provider MD MELÉNDEZ US PROCEDURES Final R esult documented in this encounter Visit Diagnoses Diagnosis Supraspinatus sprain and strain Supraspinatus (muscle) (tendon) sprain and strain Pain in joint, shoulder region documented in this encounter
--- OUTSIDE RECORDS SUMMARY | 2024-11-04 22:17 | XMS_ITS | Encounter Summary ---
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 Name Role Phone Unavailable Primary Care Provider Unavailabl e Encounter Details Date Type Department Care Team (Late st Contact Info) Description 03/21/2015 - 03/21/2015 11:59 PM CDT Hospital Encounter [facility] Rocco Brambila MD [address] [place] [address] Cyst and pseudocyst of pancreas; Chronic pancreatitis (CMS/HCC) (HCC) Social History Tobacco Use Types Packs/Day Years Used Date Smoking Tobacco: Never Assessed Sex and Gender Information Value Date Recorded Sex Assigned at Not on file Legal Sex Male 2:37 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 DIRECTOR Gender Identity Not on file Sexual Orientation Not on file documented as of this encounter Plan of Treatment Not on file documented as of this encounter Procedures Procedure Name Priority Date/Time Associated Diagnosis Comments MRI ABDOMEN W WO CONTRAST Routine 03/21/2015 9:56 AM CDT BLOOD CREATININE, POINT OF CARE Routine 03/21/2015 8:43 AM CDT DISCHARGE LABORATORY CUMULATIVE REPORT Routine 03/21/2015 12:00 AM CDT documented in this encounter Results * MRI Abdomen WWO Contrast (03/21/2015 9:56 AM CDT) Anatomical Region Laterality Modality Body N/A Magnetic Resonan ce 03/21/2015 9:56 AM CDT Narrative 03/21/2015 6:23 PM CDT ROBERTO ALEMAN M.D. MELVIN SHER, FINAL REPORT The radiology attending physician has personally reviewed this study, and has reviewed and/or edited this written report and agrees with it. ACC# ??Date Time ??Exam [id number] March 21, 2015 09:56:00 [id number] MRI Abdomen wwo contrast ACC# ??Date Time ??Exam [id number] March 21, 2015 09:56:00 [id number] MRI Abdomen wwo contrast EXAMINATION: 1. ??MAGNETIC RESONANCE IMAGING OF THE ABDOMEN WITH AND WITHOUT CONTRAST 2. THREE DIMENSIONAL RECONSTRUCTION OF THE BILIARY TREE AND PANCREATIC DUCT HISTORY: 44-year-old man with recurrent alcoholic pancreatitis, pancreatic pseudocyst, and prior pancreatic duct stenting for pancreatic duct stricture. TECHNIQUE: Magnetic resonance imaging of the abdomen was performed prior to and following the uneventful administration of intravenous Gadolinium contrast. ??The raw data were processed on the scanner by the technologist for 3 dimensional reconstructions of the intrahepatic ducts, extrahepatic ducts, and pancreatic duct. Protocol: Liver MRCP Estimated GFR: Greater than 60 ml/min/1.73 meters squared Creatinine: 0.9 mg/dL Contrast: Optimark, 10 ml, single dose FINDINGS: Abdominal MRI dated 04/09/2014. Correlation is made with abdomen CT dated 12/20/2014 and 01/14/2015. Liver: Normal without focal lesion. Hepatic vasculature: The hepatic arterial vasculature is classic in configuration. The portal veins and hepatic veins appear patent. Bile ducts: Normal without intra- or extrahepatic biliary ductal dilation. Gallbladder: Normal without stone, wall thickening, or pericholecystic fluid. Pancreas: The pancreas is atrophic, and there is dilation of the main pancreatic duct. There has been interval resolution of the previously described pancreatic head cystic lesion. ?? IMPRESSION: Interval resolution of the cystic pancreatic head lesion consistent with resolved pancreatic pseudocyst. ?? Requested By: ROCCO MORENO M.D. Dictated By: ?? MELVIN SHER, ?? on Mar 21 2015 ??1:45P This document has been electronically signed by: ROBERTO ALEMAN M.D. on Mar 21 2015 ??6:23P [id number] Procedure Note Provider, Historical, MD - 02/22/2017 ROBERTO ALEMAN M.D. MELVIN SHER, FINAL REPORT The radiology attending physician has personally reviewed this study, and has reviewed and/or edited this written report and agrees with it. ACC# Date Time Exam [id number] March 21, 2015 09:56:00 [id number] MRI Abdomen wwo contrast ACC# Date Time Exam [id number] March 21, 2015 09:56:00 [id number] MRI Abdomen wwo contrast EXAMINATION: 1. MAGNETIC RESONANCE IMAGING OF THE ABDOMEN WITH AND WITHOUT CONTRAST 2. THREE DIMENSIONAL RECONSTRUCTION OF THE BILIARY TREE AND PANCREATIC DUCT HISTORY: 44-year-old man with recurrent alcoholic pancreatitis, pancreatic pseudocyst, and prior pancreatic duct stenting for pancreatic duct stricture. TECHNIQUE: Magnetic resonance imaging of the abdomen was performed prior to and following the uneventful administration of intravenous Gadolinium contrast. The raw data were processed on the scanner by the technologist for 3 dimensional reconstructions of the intrahepatic ducts, extrahepatic ducts, and pancreatic duct. Protocol: Liver MRCP Estimated GFR: Greater than 60 ml/min/1.73 meters squared Creatinine: 0.9 mg/dL Contrast: Optimark, 10 ml, single dose FINDINGS: Abdominal MRI dated 04/09/2014. Correlation is made with abdomen CT dated 12/20/2014 and 01/14/2015. Liver: Normal without focal lesion. Hepatic vasculature: The hepatic arterial vasculature is classic in configuration. The portal veins and hepatic veins appear patent. Bile ducts: Normal without intra- or extrahepatic biliary ductaldilation. Gallbladder: Normal without stone, wall thickening, or pericholecystic fluid. Pancreas: The pancreas is atrophic, and there is dilation of the main pancreatic duct. There has been interval resolution of the previously described pancreatic head cystic lesion. IMPRESSION: Interval resolution of the cystic pancreatic head lesion consistent with resolved pancreatic pseudocyst. Requested By: ROCCO MORENO M.D. Dictated By: MELVIN SHER, on Mar 21 2015 1:45P This document has been electronically signed by: ROBERTO ALEMAN M.D. on Mar 21 2015 6:23P [id number] Historical Provider MD MELÉNDEZ MRI PROCEDURES Final Result * Blood creatinine, point of care (03/21/2015 8:43 AM CDT) Creatinine, POC, bld 0.9 0.7 - 1.3 mg/dl HISTORICAL RESULTS Blood specimen (specimen) 03/21/2015 8:43 AM CDT Rocco Moreno MD LAB BLOOD ORDERABL ES Final Result HISTORICAL RESULTS * Discharge Laboratory Cumulative Report (03/21/2015 12:00 AM CDT) 03/21/2015 Narrative HISTORICAL RESULTS - 03/21/2015 11:21 AM CDT ?[facility] ?Department of Laboratories ? [address] [facility] [address] ? [place] [address] Patient Name: ??YARIEL HILL Aleena [facility] Rec Number: [id number] Fin Number: ?[id number] Date: ?1970 Sex/Age: ? Male 44 years Admit Date: ?03/21/2015 Discharge Date: 03/21/2015 Doctor: ?Rocco Moreno Facility: ?[facility] Location: ?[facility] Chart Printed: 03/21/2015 11:21 ?? * Abnormal ?? C Critical ?? f Footnote ?? ^ Corrected ?? L Low ?? H High ? i Interp Data ?? @ Reference Lab ?Chart Type:Cumulative ?POINT OF CARE TESTS ? Chemistry ?Test: Creat iPOC ? Reference: [0.7-1.3] ? Units: mg/dL 03/21/2015 ?? 08:43:00 ?? 0.9 us Historical Provider LAB BLOOD ORDERABLES Carrie khanna Result HISTORICAL RESULTS documented in this encounter Visit Diagnoses Diagnosis Cyst and pseudocyst of pancreas Chronic pancreatitis (CMS/HCC) (HCC) Chronic pancreatitis documented in this encounter
--- OUTSIDE RECORDS SUMMARY | 2024-11-04 22:17 | XMS_ITS | Encounter Summary ---
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 Name Role Phone Unavailable Primary Care Provider Unavailabl e Encounter Details Date Type Department Care Team (Latest Contact Info) Description 01/14/2015 8:20 PM CDT - 01/15/2015 6:32 PM CDT Hospital Encounter [facility] Nonspecific abnormal finding in stool contents; Cyst and pseudocyst of pancreas; Chronic pancreatitis (CMS/HCC) (HCC); Diarrhea; Essential hypertension; Esophageal reflux; Other chest pain; Tobacco use disorder; Nondependent alcohol abuse, in remission Social History Tobacco Use Types Packs/Day Years Used Date Smoking Tobacco: Never Assessed Sex and Gender Information Value Date Recorded Sex Assigned at Not on file 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 Gender Identity Not on file Sexual Orientation Not on file documented as of this encounter Last Filed Vital Signs Vital Sign Reading Time Taken Comments Blood Pressure 133/86 01/15/2015 5:32 PM CDT Pulse 97 01/15/2015 5:32 PM CDT Temperature - - Respiratory Rate - - Oxygen Saturation 100% 01/15/2015 5:32 PM CDT Inhaled Oxygen Concentration - - Weight 46.8 kg (103 lb 1.8 oz) 01/15/2015 5:00 A M CDT Height 170.2 cm (5' 7 ) 01/15/2015 4:11 AM CDT Body Mass Index 16.15 01/15/2015 4:11 AM CDT documented in this encounter H&P Notes * ProviderRhett MD - 01/14/2015 12:00 AM CDT Patient: Yariel Hill Reg No: [id number] [facility] #: [id number] Admit Dt.: 01/14/2015 : 1970 Room No: ER Attending: Rajinder Noel M.D. Dictating: Rajinder Noel M.D. ADMISSION HISTORY PHYSICAL ADMISSION DIAGNOSIS (ES): 1. Diarrhea. 2. Dark stools. 3. Chest pain. CHIEF COMPLAINT: Right chest pain and loose dark stools. HISTORY OF PRESENT ILLNESS: 44-year-old male with a history of hypertension, tobacco use disorder, alcohol abuse, recurrent acute on chronic pancreatitis complicated by a pancreatic pseudocyst with a recent endoscopic retrograde cholangiopancreatography with pancreatic duct structure dilation and stent placement on 01/10/15, who now presents with symptoms of chest pain and loose, dark stools. Symptoms have been ongoing for 2 days. The patient states that 2 days ago he began to have loose stools several times. He states that the color of the stools was a dark brown color. He denies any bright red blood per rectum nor any black or charcoal colored stools. He states that the consistency of the stools is fairly watery. The symptoms worsened into today. He denies having had any sick contacts. Denies any fevers or chills. He has not had any nausea or vomiting associated with this. He states that he has had a slight cramping sensation in his right upper quadrant which has radiated up into his right chest. He denies any chest pressure. He states that he has not had any abnormal foods or uncooked foods. The patient recently had a endoscopic retrograde cholangiopancreatography on 01/10/[address] Moreno for pancreatic duct stricture with dilation of the pancreatic duct and stent placed on 01/10/15. The patient was given prescription for Augmentin 875 mg p.o. twice a day for the postprocedural infection prophylaxis. Per the report, there were no complications and the stent was in good position. The patient denies any subsequent fevers or jaundice afterward. PAST MEDICAL/SURGICAL HISTORY: 1. Hypertension. 2. Tobacco use disorder. 3. Alcohol abuse. 4. Reflux. 5. Chronic pancreatitis secondary to recurrent acute alcoholic pancreatitis. This is complicated by the development of a pancreatic pseudocyst that was noted in 2012 on abdominal magnetic resonance imaging showing a 4.3 x 3.8 x 3.7 cm cyst in the pancreatic head. He had a EUS with fine-needle aspiration of this in 07/13 showing cystic contents which were negative for malignancy. He has been followed in the [facility] by Dr. Moreno. The most recent imaging with computed tomography abdomen and pelvis done today shows evidence of mild decrease in the size of the cystic lesion. As per history of present illness, the patient is status post a stent placement and stricture dilatio of the pancreatic duct. 6. Rotator cuff tear per ultrasound in 2012. This was a partial tear of the supraspinatus tendon. 7. Spinal stenosis. 8. Status post left hand carpal tunnel surgery. MEDICATIONS: 1. Lisinopril/Hydrochlorothiazide 20/12.5 mg p.o. daily. 2. Ranitidine 150 mg p.o. twice a day. 3. Augmentin 875 mg p.o. twice a day, to be completed 7 days after endoscopic retrograde cholangiopancreatography done on 01/10/15. ALLERGIES: No known drug allergies. FAMILY HISTORY: The patient denies any history of pancreatic disease within his family. SOCIAL HISTORY: The patient is a current smoker and intermittently smokes several cigarettes per day. He endorses recent alcohol use with last drink in October. He states that he has stopped secondary to the development of his acute on chronic pancreatitis and pancreatic pseudocyst. Denies any intravenous or illicit drug use. REVIEW OF SYSTEMS: All other systems are negative. PHYSICAL EXAMINATION: Vital Signs: Temperature 37, pulse 69, respiratory rate 13, blood pressure 129/82, oxygen saturation 100% on room air. Constitutional: The patient examined in the emergency department, in no acute distress. HEENT: Normocephalic, atraumatic, anicteric sclera, oropharynx clear, moist mucous membranes. Chest: Regular rate and rhythm, no murmurs. Lungs: Clear to auscultation bilaterally. Abdomen: Positive bowel sounds, soft, non-distended, slightly tender to palpation in the right upper quadrant, no guarding, rebound or rigidity. Extremities: No lower extremity edema. Neurologic: Alert, awake and oriented times four. No asterixis. Psychiatric: Euthymic. LABORATORY AND X-RAY DATA: CBC - white blood cell count 8.9, hemoglobin 14, hematocrit 41.3, platelets 246. BMP - sodium 141, potassium 3.6, chloride 101, bicarb 27, BUN 7, creatinine 0.96, calcium 9.7. PT 12.9, INR 1.16, PTT 32.7. D. Dimer 129. Troponin <0.03. Lipase 229. Hepatic function panel - all within normal limits with a bilirubin 0.3, alkaline phosphatase 56, AST 20, ALT 12. Imaging: Abdominal and pelvic computed tomography with pancreatic protocol shows cystic lesion in the head of the pancreas, mildly decreased in size in the interval period. Now contains higher density material, possibly representing a hemorrhage or reactive proteinaceous fluid from stent placement. There is fluid in the colon and rectum. There is a slightly thick walled bladder which is distended. Chest x-ray - evidence of a pancreatic duct in place. Clear lung de leon bilaterally. ASSESSMENT: 44-year-old male with hypertension, tobacco abuse, alcohol abuse, recurrent acute on chronic pancreatitis complicated by pancreatic pseudocyst, with a recent endoscopic retrograde cholangiopancreatography with pancreatic duct stricture dilation and stent placement on 01/10/15, who presents with symptoms of chest pain and loose dark stools. PLAN: 1. Diarrhea with possibility of melaena: The patient has had some dark stools but he way he describes it is more dark brown rather then black tarry stools. None the less, it is guaiac positive. His hemoglobin is stable and his vital signs are stable. We will monitor serial complete blood counts. Type and screen was sent in the emergency room. We will transfuse him for hemoglobins <7 or for acute drops. We will maintain him on intravenous proton pump inhibitor twice a day for possible upper gastrointestinal source. 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 We will maintain him on a clear liquid diet and keep him nothing by mouth at midnight for a possible scope. Given the diarrhea and the fluid noted in the colon, we will send off his stool studies for culture. Additionally, we will send it off for C. Difficile as he has been recently on antibiotics with Augmentin. 2. Chest pain: This is actually more a radiation of his right upper quadrant abdominal pain. I have a low suspicion for a cardiac cause. His D. Dimer and Troponin were negative in the emergency room. His EKG showed no ischemic changes. We will continue to monitor his symptoms. 3. Hypertension: Continue Hydrochlorothiazide/Lisinopril. 4. Tobacco use disorder: The patient counseled on cessation. We will provide him with a 7 mg Nicotine patch. 5. Fluids/electrolytes/nutrition: Clear liquid diet, nothing by mouth at midnight. 6. Access: Peripheral IV. 7. Prophylaxis: Ambulate three times a day. 8. Code status: The patient is FULL CODE. Electronically Signed By Rajinder Noel M.D. 02/06/2015 04:53 P Jenn Robbins/homer #[id number] Editing MT: TD: 01/14/2015 20:16:00 cc: Rajinder Noel M.D. documented in this encounter Plan of Treatment Not on file documented as of this encounter Procedures Procedure Name Priority Date/Time Associated Diagnosis Comments BLOOD CELL COUNT Routine 01/15/2015 11:4 2 AM CDT SERUM TROPONIN I Routine 01/15/2015 2:43 AM CDT BLOOD CELL COUNT (CBC) Routine 5 2:43 AM CDT BLOOD ABO, RH, INDIRECT AB SCREEN Routine 01/15/2015 2:43 AM CDT BLOOD CELL COUNT (CBC) Routine 5 2:41 AM CDT DISCHARGE LABORATORY CUMULATIVE REPORT Routine 01/15/2015 12:00 AM CDT BLOOD CHECK SAMPLE Routine 01/14/2015 7: [address] ABDOMEN PELVIS W WO CONTRAST Routine 01/14/2015 5:17 PM CDT PLASMA PROTHROMBIN TIME (PT) Routine 01/14/2015 5:03 PM CDT PLASMA PARTIAL THROMBOPLASTIN TIME (PTT) Routine 01/14/2015 5:03 PM CDT BLOOD ABO, RH, INDIRECT AB SCREEN Routine 01/14/2015 5:03 PM CDT SERUM TROPONIN I Routine 01/14/2015 1:30 PM CDT SERUM LIPASE Routine 01/14/2015 1:30 PM CDT PLASMA HEPATIC FUNCTION PANEL Routine 01/14/2015 1:30 PM CDT PLASMA BASIC METABOLIC PANEL Routine 01/14/2015 1:30 PM CDT BLOOD D-DIMER Routine 01/14/2015 1:30 PM CDT BLOOD CELL COUNT (CBC) Routine 5 1:30 PM CDT CHEST RADIOGRAPHY, FRONTAL (AP), LATERAL Routine 01/14/2015 1:13 PM CDT documented in this encounter Results * (ABNORMAL) Blood cell count [CBC] express (01/15/2015 11:42 AM CDT) WBC 7.7 3.8 - 9.8 K/cumm HISTORICAL RESULTS RBC 4.10(L) 4.50 - 5.70 M/cumm HISTORICAL RESULTS Hgb 13.4(L) 13.8 - 17.2 g/dl HISTORICAL RESULTS Hct 39.3(L) 40.7 - 50.3 % HISTORICAL RESULTS MCV 95.9 80.0 - 97.6 fl HISTORICAL RESULTS MCH 32.5 26.7 - 33.7 pg HISTORICAL RESULTS MCHC 34.0 32.7 - 35.5 g/dl HISTORICAL RESULTS Rdw 13.2 11.8 - 14.6 % HISTORICAL RESULTS Platelets 241 140 - 440 K/cumm HISTORICAL RESULTS MPV 7.6 6.8 - 10.4 fl HISTORICAL RESULTS Blood specimen (specimen) 01/15/2015 11:42 AM CDT Rajinder Adriana Neol LAB BLOOD ORDERABLES Final Res ult HISTORICAL RESULTS * (ABNORMAL) Blood cell count (CBC) (01/15/2015 2:43 AM CDT) WBC 9.2 3.8 - 9.8 K/cumm HISTORICAL RESULTS RBC 4.17(L) 4.50 - 5.70 M/cumm HISTORICAL RESULTS Hgb 13.5(L) 13.8 - 17.2 g/dl HISTORICAL RESULTS Hct 39.5(L) 40.7 - 50.3 % HISTORICAL RESULTS MCV 94.7 80.0 - 97.6 fl HISTORICAL RESULTS MCH 32.3 26.7 - 33.7 pg HISTORICAL RESULTS MCHC 34.1 32.7 - 35.5 g/dl HISTORICAL RESULTS Rdw 13.0 11.8 - 14.6 % HISTORICAL RESULTS Platelets 237 140 - 440 K/cumm HISTORICAL RESULTS MPV 7.5 6.8 - 10.4 fl HISTORICAL RESULTS Neutrophils, abs 4.3 1.8 - 6.6 K/cumm HISTORICAL RESULTS Lymphocytes, abs 3.6(H) 1.2 - 3.3 K/cumm HISTORICAL RESULTS Monocytes, absolute 0.6 0.2 - 1.2 K/cumm HISTORICAL RESULTS Eosinophils, abs 0.6(H) 0.0 - 0.5 K/cumm HISTORICAL RESULTS Basophils, abs 0.0 0.0 - 0.2 K/cumm HISTORICAL RESULTS Neutrophils 46.8 38.7 - 74.5 % HISTORICAL RESULTS Lymphocytes 38.9 20.0 - 54.3 % HISTORICAL RESULTS Monos 7.0 4.3 - 13.5 % HISTORICAL RESULTS Eosinophils 6.8(H) 0.0 - 6.0 % HISTORICAL RESULTS Basophils 0.5 0.0 - 3.0 % HISTORICAL RESULTS Blood specimen (specimen) 01/15/2015 2:43 AM CDT Rajinder Adriana Noel LAB BLOOD ORDERABLES Final Res ult HISTORICAL RESULTS * Serum troponin I (01/15/2015 2:43 AM CDT) Troponin I <0.03 0.00 - 0.03 ng/ml HISTORICAL RESULTS Comment: Interpretive Data Serial determinations are recommended for the diagnosis of myocardial infarction (Third Gilbert Definition of Myocardial Infarction. ??J Am Marcia Cardiol 2012;60:1581-98). Current interpretive data was last revised on 13. Serum 01/15/2015 2:43 AM CDT [employer] LAB BLOOD ORDERABLES Final Res ult Performing Organization Address [facility] Co de Phone Number HISTORICAL RESULTS * Blood ABO, Rh, indirect ab screen (01/15/2015 2:43 AM CDT) ABO, Rho(D) O Positive HISTORI BART RESULTS Go, indirect Negative HISTORICAL RESULTS Blood specimen (specimen) 01/15/2015 2:43 AM CDT [facility] LAB BLOOD ORDERABLES Final Res ult Performing Organization Address [place]/[facility] Co de Phone Number HISTORICAL RESULTS * (ABNORMAL) Blood cell count (CBC) (01/15/2015 2:41 AM CDT) WBC 9.2 3.8 - 9.8 K/cumm HISTORICAL RESULTS RBC 4.17(L) 4.50 - 5.70 M/cumm HISTORICAL RESULTS Hgb 13.4(L) 13.8 - 17.2 g/dl HISTORICAL RESULTS Hct 39.6(L) 40.7 - 50.3 % HISTORICAL RESULTS MCV 95.0 80.0 - 97.6 fl HISTORICAL RESULTS MCH 32.2 26.7 - 33.7 pg HISTORICAL RESULTS MCHC 33.8 32.7 - 35.5 g/dl HISTORICAL RESULTS Rdw 12.4 11.8 - 14.6 % HISTORICAL RESULTS Platelets 240 140 - 440 K/cumm HISTORICAL RESULTS MPV 7.5 6.8 - 10.4 fl HISTORICAL RESULTS Neutrophils, abs 4.3 1.8 - 6.6 K/cumm HISTORICAL RESULTS Lymphocytes, abs 3.7(H) 1.2 - 3.3 K/cumm HISTORICAL RESULTS Monocytes, absolute 0.6 0.2 - 1.2 K/cumm HISTORICAL RESULTS Eosinophils, abs 0.6(H) 0.0 - 0.5 K/cumm HISTORICAL RESULTS Basophils, abs 0.0 0.0 - 0.2 K/cumm HISTORICAL RESULTS Neutrophils 46.8 38.7 - 74.5 % HISTORICAL RESULTS Lymphocytes 39.6 20.0 - 54.3 % HISTORICAL RESULTS Monos 6.5 4.3 - 13.5 % HISTORICAL RESULTS Eosinophils 6.7(H) 0.0 - 6.0 % HISTORICAL RESULTS Basophils 0.4 0.0 - 3.0 % HISTORICAL RESULTS Blood specimen (specimen) 01/15/2015 2:41 AM CDT us Rajinder Noel LAB BLOOD ORDERABLES Final Res ult HISTORICAL RESULTS * Discharge Laboratory Cumulative Report (01/15/2015 12:00 AM CDT) 01/15/2015 Narrative HISTORICAL RESULTS - 01/15/2015 7:20 PM CDT ?[facility] ?Department of Laboratories ? [address] [facility] [place] ? [place], [place] [address] Patient Name: ??YARIEL HILL [facility] Rec Number: [id number] Fin Number: ?[id number] Date: ?1970 Sex/Age: ? Male 44 years Admit Date: ?01/14/2015 Discharge Date: 01/15/2015 Doctor: ?MEDICINE , 1302 Facility: ?[facility] Location: ?[id number] Chart Printed: 01/15/2015 19:20 ?? * Abnormal ?? C Critical ?? f Footnote ?? ^ Corrected ?? L Low ?? H High ? i Interp Data ?? @ Reference Lab ?Chart Type:Cumulative ? SELECTED ELECTROLYTES ?Test: Sodium ? Plasma Potassium ??Chloride ? Reference: [135-145] ??[3.3-4.9] ? [97-110] ? Units: mmol/L ? mmol/L ?mmol/L 01/14/2015 ?? 13:30:00 ?? 141 ?3.6 ? 101 ?Test: Total CO2 ??Anion Gap ? Reference: [22-32] ?[0-16] ? Units: mmol/L ? mmol/L 01/14/2015 ?? 13:30:00 ?? 27 ? 13 ? STANDARD BLOOD CHEMISTRY ?Test: BUN ? Creatinine ?? Total Bilirubin ? Reference: [8-25] ??[0.70-1.30] ??[0.3-1.1] ? Units: mg/dL ?? mg/dL ?mg/dL 01/14/2015 ?? 13:30:00 ?0.3 01/14/2015 ?? 13:30:00 ?? 7 ??L ?0.96 ?Test: Bilirubin, Direct ??Glucose ?? Total Calcium ? Reference: [0.0-0.3] ?[70-199] ??[8.6-10.3] ? Units: mg/dL ?mg/dL ? mg/dL 01/14/2015 ?? 13:30:00 ?? 0.1 01/14/2015 ?? 13:30:00 ?89 ?9.7 ?Test: Plasma Total Protein ??Albumin ? Reference: [6.5-8.5] ? [3.6-5.0] ? Units: g/dL ?g/dL 01/14/2015 ?? 13:30:00 ?? 7.7 ? 4.5 ?ENZYMES ?Test: Alkaline Phosphatase ??ALT ?AST ? Reference: [38-126] ?[7-53] ?? [11-47] ? Units: Units/L ? Units/L ??Units/L 01/14/2015 ?? 13:30:00 ?? 56 ?12 ? 20 ?Test: Lipase ? Reference: [0-99] ? Units: Units/L 01/14/2015 ?? 13:30:00 ?? 29 ? CARDIAC PROTEINS ?Test: Troponin I i ? Reference: [0.00-0.03] ? Units: ng/mL 01/15/2015 ?? 02:43:00 ?? <0.03 01/14/2015 ?? 13:30:00 ?? <0.03 01/14/2015 13:30:00 Troponin I: Interpretive Data Serial determinations are recommended for the diagnosis of myocardial infarction (Third Gilbert Definition of Myocardial Infarction. ??J Am Marcia Cardiol 2012;60:1581-98). Current interpretive data was last revised on 13. ? COMPLETE BLOOD COUNT ?Test: WBC ?RBC ?Hgb ? Reference: [3.8-9.8] ??[4.50-5.70] ??[13.8-17.2] ? Units: K/cumm ? M/cumm ? g/dL 01/15/2015 ?? 11:42:00 ?? 7.7 ?4.10 ??L ?13.4 ??L 01/15/2015 ?? 02:43:00 ?? 9.2 ?4.17 ??L ?13.5 ??L 01/15/2015 ?? 02:41:31 ?? 9.2 ?4.17 ??L ?13.4 ??L 01/14/2015 ?? 13:30:00 ?? 8.9 ?4.34 ??L ?14.0 ?Test: Hct ?Platelet Ct ??MCV ? Reference: [40.7-50.3] ??[140-440] ?[80.0-97.6] ? Units: % ?K/cumm ? fL 01/15/2015 ?? 11:42:00 ?? 39.3 ??L ?241 ?95.9 01/15/2015 ?? 02:43:00 ?? 39.5 ??L ?237 ?94.7 01/15/2015 ?? 02:41:31 ?? 39.6 ??L ?240 ?95.0 01/14/2015 ?? 13:30:00 ?? 41.3 ? 246 ?95.0 ?Test: MCH ?MCHC ? RDW ? Reference: [26.7-33.7] ??[32.7-35.5] ??[11.8-14.6] ? Units: pg ? g/dL ? % 01/15/2015 ?? 11:42:00 ?? 32.5 ? 34.0 ? 13.2 01/15/2015 ?? 02:43:00 ?? 32.3 ? 34.1 ? 13.0 ? COMPLETE BLOOD COUNT ?Test: MCH ?MCHC ? RDW ? Reference: [26.7-33.7] ??[32.7-35.5] ??[11.8-14.6] ? Units: pg ? g/dL ? % 01/15/2015 ?? 02:41:31 ?? 32.2 ? 33.8 ? 12.4 01/14/2015 ?? 13:30:00 ?? 32.3 ? 34.0 ? 13.1 ?Test: MPV ? Reference: [6.8-10.4] ? Units: fL 01/15/2015 ?? 11:42:00 ?? 7.6 01/15/2015 ?? 02:43:00 ?? 7.5 01/15/2015 ?? 02:41:31 ?? 7.5 01/14/2015 ?? 13:30:00 ?? 7.6 ? AUTOMATED WHITE CELL DIFFERENTIAL ?Test: Neut Pct Auto ??Lymph Pct Auto ??[place] Pct Auto ? Reference: [38.7-74.5] ?[20.0-54.3] ? [4.3-13.5] ? Units: % ?% ? % 01/15/2015 ?? 02:43:00 ?? 46.8 ? 38.9 ?7.0 01/15/2015 ?? 02:41:31 ?? 46.8 ? 39.6 ?6.5 01/14/2015 ?? 13:30:00 ?? 54.5 ? 32.0 ?7.4 ?Test: Eos Pct Auto ??Baso Pct Auto ??Neut Abs Auto ? Reference: [0.0-6.0] ? [0.0-3.0] ?[1.8-6.6] ? Units: % ? % ?K/cumm 01/15/2015 ?? 02:43:00 ?? 6.8 ??H ?0.5 ?4.3 01/15/2015 ?? 02:41:31 ?? 6.7 ??H ?0.4 ?4.3 01/14/2015 ?? 13:30:00 ?? 5.5 ? 0.6 ?4.8 ?Test: Lymph Abs Auto ??[place] Abs Auto ??Eos Abs Auto ? Reference: [1.2-3.3] ? [0.2-1.2] ?[0.0-0.5] ? Units: K/cumm ?K/cumm ? K/cumm 01/15/2015 ?? 02:43:00 ?? 3.6 ??H ?0.6 ?0.6 ??H 01/15/2015 ?? 02:41:31 ?? 3.7 ??H ?0.6 ?0.6 ??H 01/14/2015 ?? 13:30:00 ?? 2.8 ? 0.7 ?0.5 ?Test: Baso Abs Auto ? Reference: [0.0-0.2] ? Units: K/cumm 01/15/2015 ?? 02:43:00 ?? 0.0 01/15/2015 ?? 02:41:31 ?? 0.0 01/14/2015 ?? 13:30:00 ?? 0.1 ? HEMOSTASIS AND THROMBOSIS ?Routine Coagulation Studies ?Test: PT ? INR i ?aPTT i ? Reference: [10.0-13.3] ??[0.90-1.20] ??[25.0-37.0] ? Units: sec ? sec 01/14/2015 ?? 17:03:00 ?? 12.9 ? 1.16 ? 32.7 01/14/2015 17:03:00 INR: Interpretive Data Inpatient therapeutic ranges* Atrial fibrillation ?2.0-3.0 INR Venous thrombo-embolism ?2.0-3.0 INR Bioprosthetic heart valve ?* Mechanical heart valve, bileaflet or tilting disk,aortic position ? 2.0-3.0 INR All other,or bileaflet or tilting disk, in mitral position ? 2.5-3.5 INR *See the pharmacy resource directory (PHRED) for an updated copy of the Tool Book at [email or web address] Current Interpretive Data was last revised 2012. 01/14/2015 17:03:00 aPTT: Interpretive Data Therapeutic heparin range:60.0 - 94.0 sec based on correlation with therapeutic heparin activity range of 0.3 -0.7 Units/mL. Current interpretive data was last revised on 2011. ?Test: D-Dimer Qnt i ? Reference: [110-230] ? Units: ng/mL D-DU 01/14/2015 ?? 13:30:00 ?? 129 01/14/2015 13:30:00 D-Dimer Qnt: Interpretive Data This D-dimer test is approved by the FDA to exclude suspected PE and DVT in outpatients when the result is <230 ng/mL in conjunction with a pre-test probability score of low or moderate using the Wells criteria. Current Interpretive Data was last revised on 2012. ? TRANSFUSION MEDICINE ?Test: Indirect Go. ??ABO/Rh Pat Interp ? Reference: ? Units: 01/15/2015 ?? 02:43:00 ?? Negative ?O Positive 01/14/2015 ?? 19:40:00 ? O Positive 01/14/2015 ?? 17:03:00 ?? Negative ?O Positive us Historical Provider LAB BLOOD ORDERABLES Carrie khanna Result HISTORICAL RESULTS * Blood check sample (01/14/2015 7:40 PM CDT) ABO, Rho(D) O Positive HISTORI BART RESULTS Blood specimen (specimen) 01/14/2015 7:40 PM CDT us Historical Provider LAB BLOOD ORDERABLES Carrie clemencia Result HISTORICAL RESULTS * CT Abdomen Pelvis W WO Contrast (01/14/2015 5:17 PM CDT) Anatomical Region Laterality Modality Body N/A Computed Tomogra phy 01/14/2015 5:17 PM CDT Narrative 01/15/2015 8:21 AM CDT VERÓNICA BRAVO M.D. SHARIF JUAREZ, FINAL REPORT The radiology attending physician has personally reviewed this study, and has reviewed and/or edited this written report and agrees with it. ACC# ??Date Time ??Exam [id number] Jan 14, 2015 17:17:[id number] Abd & Pelvis wwo cont EXAMINATION: ?CT OF THE ABDOMEN AND PELVIS WITHOUT AND WITH INTRAVENOUS CONTRAST HISTORY: ??History of recurrent alcoholic pancreatitis, status post pancreatic duct stricture dilatation and stent placement on 01/10/2015, presenting with chest and abdominal pain. The patient's lipase is normal at 29. TECHNIQUE: Transaxial computed tomographic images of the abdomen and pelvis were obtained without and with intravenous 95 ml of Optiray 350 according to pancreatic protocol. ??No immediate complications following contrast administration. FINDINGS: ??Comparison is made to the prior performed on 12/11/2014. The visualized portion of the lung bases is clear. The heart size is normal without pericardial effusion. Focal fatty infiltration is noted adjacent to the falciform ligament. The liver is otherwise normal without focal lesion. The intrahepatic biliary duct prominence is stable. No extrahepatic biliary dilatation. The spleen, adrenal glands, and kidneys are normal. The portal veins, splenic artery and vein, celiac artery, superior mesenteric artery are normal. Eight pancreatic stent has been placed in interval extending from the pancreatic duct in the body of the pancreas into the second portion of the to one known. The pancreatic pseudocyst is slightly higher in density compared to the prior examination, now containing a focus of gas measuring 2.8 by 3.3 cm compared to 3.8 by 4.0 cm at slice position -628. The rind of soft tissue surrounding the pseudocyst has mildly increased. No additional solid or cystic lesion is visualized in the remaining pancreas. There is no evidence of fat stranding or fluid to suggest acute pancreatitis. No intra-abdominal, retroperitoneal, or pelvic lymphadenopathy. Atherosclerotic calcification is noted in the abdominal aorta and its branch vessels. Stool is present throughout the colon and the rectum. The small and large bowel are otherwise normal in course and caliber without evidence of wall thickening or obstruction. Diverticulosis is present without evidence of diverticulitis. No free intraperitoneal fluid or gas. The gallbladder is distended and mildly thick walled. The prostate is normal in size. Bone window demonstrate no suspicious blastic or lytic osseous lesion. IMPRESSION: ? 1. The cystic lesion within the head of the pancreas has mildly decreased in size in interval, now containing higher density material, which may represents a component of of hemorrhage or reactive proteinaceous fluid from recent stent placement. This lesion remains most consistent with a pancreatic pseudocyst. No evidence of enhancing lesion in the pancreas to suggest a pancreatic neoplasm. 2. Fluid throughout the colon and the rectum, correlation with diarrhea and colitis is recommended. 3. Slightly thick walled bladder is distended, correlation with urinary symptoms for possible UTI and urinalysis is recommended. Requested By: HUNG MAC PA-C Dictated By: ?? SHARIF JUAREZ, ?? on Jan 14 2015 ??6:07P This document has been electronically signed by: VERÓNICA BRAVO M.D. on Jan 15 2015 ??8:21A [id number] Procedure Note Provider, MD Rhett - 02/22/2017 VERÓNICA BRAVO M.D. SHARIF JUAREZ, FINAL REPORT The radiology attending physician has personally reviewed this study, and has reviewed and/or edited this written report and agrees with it. ACC# Date Time Exam [id number] Jan 14, 2015 17:17:[id number] Abd & Pelvis wwo cont EXAMINATION: CT OF THE ABDOMEN AND PELVIS WITHOUT AND WITH INTRAVENOUS CONTRAST HISTORY: History of recurrent alcoholic pancreatitis, status post pancreatic duct stricture dilatation and stent placement on 01/10/2015, presenting with chest and abdominal pain. The patient's lipase is normal at 29. TECHNIQUE: Transaxial computed tomographic images of the abdomen and pelvis were obtained without and with intravenous 95 ml of Optiray 350 according to pancreatic protocol. No immediate complications following contrast administration. FINDINGS: Comparison is made to the prior performed on 12/11/2014. The visualized portion of the lung bases is clear. The heart size is normal without pericardial effusion. Focal fatty infiltration is noted adjacent to the falciform ligament. The liver is otherwise normal without focal lesion. The intrahepatic biliary duct prominence is stable. No extrahepatic biliary dilatation. The spleen, adrenal glands, and kidneys are normal. The portal veins, splenic artery and vein, celiac artery, superior mesenteric artery are normal. Eight pancreatic stent has been placed in interval extending from the pancreatic duct in the body of the pancreas into the second portion of the to one known. The pancreatic pseudocyst is slightly higher in density compared to the prior examination, now containing a focus of gas measuring 2.8 by 3.3 cm compared to 3.8 by 4.0 cm at slice position -628. The rind of soft tissue surrounding the pseudocyst has mildly increased. No additional solid or cystic lesion is visualized in the remaining pancreas. There is no evidence of fat stranding or fluid to suggest acute pancreatitis. No intra-abdominal, retroperitoneal, or pelvic lymphadenopathy. Atherosclerotic calcification is noted in the abdominal aorta and its branch vessels. Stool is present throughout the colon and the rectum. The small and large bowel are otherwise normal in course and caliber without evidence of wall thickening or obstruction. Diverticulosis is present without evidence of diverticulitis. No free intraperitoneal fluid or gas. The gallbladder is distended and mildly thick walled. The prostate is normal in size. Bone window demonstrate no suspicious blastic or lytic osseous lesion. IMPRESSION: 1. The cystic lesion within the head of the pancreas has mildly decreased in size in interval, now containing higher density material, which may represents a component of of hemorrhage or reactive proteinaceous fluid from recent stent placement. This lesion remains most consistent with a pancreatic pseudocyst. No evidence of enhancing lesion in the pancreas to suggest a pancreatic neoplasm. 2. Fluid throughout the colon and the rectum, correlation with diarrhea and colitis is recommended. 3. Slightly thick walled bladder is distended, correlation with urinary symptoms for possible UTI and urinalysis is recommended. Requested By: HUNG MAC PA-C Dictated By: SHARIF JUAREZ on Jan 14 2015 6:07P This document has been electronically signed by: VERÓNICA BRAVO M.D. on Jan 15 2015 8:21A [id number] us Historical Provider MD MELÉNDEZ CT PROCEDURES Final R esult * Plasma partial thromboplastin time (PTT) (01/14/2015 5:03 PM CDT) APTT 32.7 25.0 - 37.0 seconds HISTORICAL RESULTS Comment: Interpretive Data Therapeutic heparin range:60.0 - 94.0 sec based on correlation with therapeutic heparin activity range of 0.3 -0.7 Units/mL. Current interpretive data was last revised on 2011. Plasma 01/14/2015 5:03 PM CDT Hung EMERSON LAB BLOOD ORDERABLES Final R esult HISTORICAL RESULTS * Plasma prothrombin time (PT) (01/14/2015 5:03 PM CDT) Prothrombin time (PT) 12.9 10.0 - 13.3 seconds HISTORICAL RESULTS INR 1.16 0.90 - 1.20 HISTORIC AL RESULTS Comment: Interpretive Data Inpatient therapeutic ranges* Atrial fibrillation ?2.0-3.0 INR Venous thrombo-embolism ?2.0-3.0 INR Bioprosthetic heart valve ?* Mechanical heart valve, bileaflet or tilting disk,aortic position ? 2.0-3.0 INR All other,or bileaflet or tilting disk, in mitral position ? 2.5-3.5 INR *See the pharmacy resource directory (PHRED) for an updated copy of the Tool Book at [email or web address] Current Interpretive Data was last revised 2012. Plasma 01/14/2015 5:03 PM CDT Hung EMERSON LAB BLOOD ORDERABLES Final R esult Performing Organization Address [facility] de Phone Number HISTORICAL RESULTS * Blood ABO, Rh, indirect ab screen (01/14/2015 5:03 PM CDT) Go, indirect Negative HISTORICAL RESULTS ABO, Rho(D) O Positive HISTORI BART RESULTS Blood specimen (specimen) 01/14/2015 5:03 PM CDT Hung EMERSON LAB BLOOD ORDERABLES Final R esult Performing Organization Address [facility] de Phone Number HISTORICAL RESULTS * Plasma hepatic function panel (01/14/2015 1:30 PM CDT) Protein, pl 7.7 6.5 - 8.5 g/dl HISTORICAL RESULTS Alb 4.5 3.6 - 5.0 g/dl HISTORICAL RESULTS Bilirubin 0.3 0.3 - 1.1 mg/dl HISTORICAL RESULTS Bilirubin, direct 0.1 0.0 - 0.3 mg/dl HISTORICAL RESULTS Alk phos 56 38 - 126 Units/L HISTORICAL RESULTS AST 20 11 - 47 Units/L HISTORICAL RESULTS ALT 12 7 - 53 Units/L HISTORICAL RESULTS Plasma 01/14/2015 1:30 PM CDT Dung Neville MD LAB BLOOD ORDERABLES Fin al Result Performing Organization Address [facility] de Phone Number HISTORICAL RESULTS * Serum lipase (01/14/2015 1:30 PM CDT) Lip 29 0 - 99 Units/L HISTORICAL RESULTS Serum 01/14/2015 1:30 PM CDT Dung Neville MD LAB BLOOD ORDERABLES Fin al Result Performing Organization Address [facility] de Phone Number HISTORICAL RESULTS * Blood D-dimer (01/14/2015 1:30 PM CDT) Pathologist [facility] D-dimer 129 110 - 230 ng/ml D-DU HISTORICAL RESULTS Comment: Interpretive Data This D-dimer test is approved by the FDA to exclude suspected PE and DVT in outpatients when the result is <230 ng/mL in conjunction with a pre-test probability score of low or moderate using the Wells criteria. Current Interpretive Data was last revised on 2012. Blood specimen (specimen) 01/14/2015 1:30 PM CDT us Dung Neville MD LAB BLOOD ORDERABLES Fin al Result Performing Organization Address [facility]/ZIP Co de Phone Number HISTORICAL RESULTS * (ABNORMAL) Plasma basic metabolic panel (01/14/2015 1:30 PM CDT) [facility] Sodium 141 135 - 145 mmol/L HISTORICAL RESULTS K, pl 3.6 3.3 - 4.9 mmol/L HISTORICAL RESULTS Chloride 101 97 - 110 mmol/L HISTORICAL RESULTS CO2 27 22 - 32 mmol/L HISTORICAL RESULTS A. gap 13 0 - 16 mmol/L HISTORICAL RESULTS Glucose 89 70 - 199 mg/dl HISTORICAL RESULTS BUN 7(L) 8 - 25 mg/dl HISTORICAL RESULTS Creatinine 0.96 0.70 - 1.30 mg/dl HISTORICAL RESULTS Calcium 9.7 8.6 - 10.3 mg/dl HISTORICAL RESULTS Plasma 01/14/2015 1:30 PM CDT us Anirudh Carrillo MD LAB BLOOD ORDERABLES Final Res ult Performing Organization Address [facility] Co de Phone Number HISTORICAL RESULTS * Serum troponin I (01/14/2015 1:30 PM CDT) Pathologist [facility] Troponin I <0.03 0.00 - 0.03 ng/ml HISTORICAL RESULTS Comment: Interpretive Data Serial determinations are recommended for the diagnosis of myocardial infarction (Third Gilbert Definition of Myocardial Infarction. ??J Am Marcia Cardiol 2012;60:1581-98). Current interpretive data was last revised on 13. Serum 01/14/2015 1:30 PM CDT Anirudh Carrillo MD LAB BLOOD ORDERABLES Final Res ult HISTORICAL RESULTS * (ABNORMAL) Blood cell count (CBC) (01/14/2015 1:30 PM CDT) WBC 8.9 3.8 - 9.8 K/cumm HISTORICAL RESULTS RBC 4.34(L) 4.50 - 5.70 M/cumm HISTORICAL RESULTS Hgb 14.0 13.8 - 17.2 g/dl HISTORICAL RESULTS Hct 41.3 40.7 - 50.3 % HISTORICAL RESULTS MCV 95.0 80.0 - 97.6 fl HISTORICAL RESULTS MCH 32.3 26.7 - 33.7 pg HISTORICAL RESULTS MCHC 34.0 32.7 - 35.5 g/dl HISTORICAL RESULTS Rdw 13.1 11.8 - 14.6 % HISTORICAL RESULTS Platelets 246 140 - 440 K/cumm HISTORICAL RESULTS MPV 7.6 6.8 - 10.4 fl HISTORICAL RESULTS Neutrophils, abs 4.8 1.8 - 6.6 K/cumm HISTORICAL RESULTS Lymphocytes, abs 2.8 1.2 - 3.3 K/cumm HISTORICAL RESULTS Monocytes, absolute 0.7 0.2 - 1.2 K/cumm HISTORICAL RESULTS Eosinophils, abs 0.5 0.0 - 0.5 K/cumm HISTORICAL RESULTS Basophils, abs 0.1 0.0 - 0.2 K/cumm HISTORICAL RESULTS Neutrophils 54.5 38.7 - 74.5 % HISTORICAL RESULTS Lymphocytes 32.0 20.0 - 54.3 % HISTORICAL RESULTS Monos 7.4 4.3 - 13.5 % HISTORICAL RESULTS Eosinophils 5.5 0.0 - 6.0 % HISTORICAL RESULTS Basophils 0.6 0.0 - 3.0 % HISTORICAL RESULTS Blood specimen (specimen) 01/14/2015 1:30 PM CDT Anirudh Carrillo MD LAB BLOOD ORDERABLES Final Res ult HISTORICAL RESULTS * CHEST RADIOGRAPHY, FRONTAL (AP), LATERAL (01/14/2015 1:13 PM CDT) Anatomical Region Laterality Modality N/A Radiographic Vashti ging 01/14/2015 1:13 PM CDT Narrative 01/14/2015 1:51 PM CDT EJ HUNG M.D. LANDY BANGURA M.D. FINAL REPORT The radiology attending physician has personally reviewed this study, and has reviewed and/or edited this written report and agrees with it. ACC# ??Date Time ??Exam [id number] Jan 14, 2015 13:13:00 [id number] Chest 2 views Frontl & Lat EXAMINATION: ?? Chest 2 views frontal and lateral IMPRESSION: ?? Comparison not available. Pancreatic duct stent is present. Clear lungs. No pleural effusion, pneumothorax, pneumonia, or pulmonary edema. Normal cardiomediastinal silhouette. Requested By: ANIRUDH CARRILLO M.D. Dictated By: ?? LANDY BANGURA M.D. ??on Jan 14 2015 ??1:38P This document has been electronically signed by: EJ HUNG M.D. on Jan 14 2015 ??1:51P [id number] Procedure Note Provider, MD Rhett - 02/22/2017 EJ HUNG M.D. LANDY BANGURA M.D. FINAL REPORT The radiology attending physician has personally reviewed this study, and has reviewed and/or edited this written report and agrees with it. ACC# Date Time Exam [id number] Jan 14, 2015 13:13:00 [id number] Chest 2 views Frontl & Lat EXAMINATION: Chest 2 views frontal and lateral IMPRESSION: Comparison not available. Pancreatic duct stent is present. Clear lungs. No pleural effusion, pneumothorax, pneumonia, or pulmonary edema. Normal cardiomediastinal silhouette. Requested By: ANIRUDH CARRILLO M.D. Dictated By: LANDY BANGURA M.D. on Jan 14 2015 1:38P This document has been electronically signed by: EJ HUNG M.D. on Jan 14 2015 1:51P [id number] us Historical Provider MD MELÉNDEZ XR PROCEDURES Final R esult documented in this encounter Visit Diagnoses Diagnosis Nonspecific abnormal finding in stool contents Cyst and pseudocyst of pancreas Chronic pancreatitis (CMS/HCC) (HCC) Chronic pancreatitis Diarrhea Essential hypertension Unspecified essential hypertension Esophageal reflux Other chest pain Tobacco use disorder Nondependent alcohol abuse, in remission documented in this encounter
--- OUTSIDE RECORDS SUMMARY | 2024-11-04 22:17 | XMS_ITS | Encounter Summary ---
Author Organization [facility] Facility Care Team Providers Care Plastic Panel Installer Name Role Phone Unavailable Primary Care Provider Unavailabl e Encounter Details Date Type Department Care Team (Latest Contact Info) Description 12/07/2013 10:04 AM CERTIFIED NOVELL ENGINEER - 12/07/2013 4:00 PM CERTIFIED NOVELL ENGINEER Hospital Encounter [facility] Christiano Heller MD [address] [place] [address] Other follow-up examination; Acute pancreatitis; Cyst and pseudocyst of pancreas; Essential hypertension; Pain in joint, shoulder region; Tobacco use disorder; Counseling on substance use and abuse; Esophageal reflux; Impotence of organic origin; Pain in soft tissues of limb; Need for prophylactic vaccination and inoculation against influenza Social History Tobacco Use Types Packs/Day Years Used Date Smoking Tobacco: Never Assessed Sex and Gender Information Value Date Recorded Sex Assigned at Not on file Legal Sex Male 2:37 PM CERTIFIED NOVELL ENGINEER Gender Identity Not on file Sexual Orientation Not on file documented as of this encounter Plan of Treatment Not on file documented as of this encounter Procedures Procedure Name Priority Date/Time Associated Diagnosis Comments PLASMA COMPREHENSIVE METABOLIC PANEL Routine 12/07/2013 11:06 AM CERTIFIED NOVELL ENGINEER URINALYSIS Routine 12/07/2013 10:42 AM CERTIFIED NOVELL ENGINEER DISCHARGE LABORATORY CUMULATIVE REPORT Routine 12/07/2013 12:00 AM CERTIFIED NOVELL ENGINEER documented in this encounter Results * Plasma comprehensive metabolic panel (12/07/2013 11:06 AM CERTIFIED NOVELL ENGINEER) Sodium 141 135 - 145 mmol/L HISTORICAL RESULTS K, pl 3.8 3.3 - 4.9 mmol/L HISTORICAL RESULTS Chloride 104 97 - 110 mmol/L HISTORICAL RESULTS CO2 26 22 - 32 mmol/L HISTORICAL RESULTS A. gap 11 0 - 16 mmol/L HISTORICAL RESULTS Glucose 88 70 - 199 mg/dl HISTORICAL RESULTS BUN 9 8 - 25 mg/dl HISTORICAL RESULTS Creatinine 1.03 0.70 - 1.30 mg/dl HISTORICAL RESULTS Calcium 9.7 8.6 - 10.3 mg/dl HISTORICAL RESULTS Protein, pl 7.5 6.5 - 8.5 g/dl HISTORICAL RESULTS Alb 4.6 3.6 - 5.0 g/dl HISTORICAL RESULTS Bilirubin 0.6 0.3 - 1.1 mg/dl HISTORICAL RESULTS Alk phos 56 38 - 126 Units/L HISTORICAL RESULTS AST 25 11 - 47 Units/L HISTORICAL RESULTS ALT 14 7 - 53 Units/L HISTORICAL RESULTS Plasma 12/07/2013 11:0 6 AM CERTIFIED NOVELL ENGINEER Evie Licona MD LAB BLOOD ORDERABLES Final Result Performing Organization Address [facility] de Phone Number HISTORICAL RESULTS * Urinalysis (12/07/2013 10:42 AM CERTIFIED NOVELL ENGINEER) Pathologist [facility] Color, ur Light-Yellow Yellow HISTORI BART RESULTS Clarity, ur Clear Clear HISTORIC AL RESULTS Specific gravity, ur 1.009 1.003 - 1.030 HISTORICAL RESULTS pH, ur 5.5 5.0 - 8.0 HISTORICAL RESULTS Protein, ur Negative Trace HISTORIC AL RESULTS Glucose, ur Negative Negative HISTORIC AL RESULTS Ketones, ur Negative Negative HISTORIC AL RESULTS Bilirubin, ur Negative Negative HISTOR ICAL RESULTS U Blood Negative Negative HISTORICAL RESULTS Urobilinogen, quant, ur <2.0 0.0 - 2.0 mg/dl HISTORICAL RESULTS Nitrites, ur Negative Negative HISTORI BART RESULTS Leukocyte esterase, ur Negative Negative HISTORICAL RESULTS Urine 12/07/2013 10:4 2 AM CERTIFIED NOVELL ENGINEER Evie Licona MD LAB BLOOD ORDERABLES Final Result HISTORICAL RESULTS * Discharge Laboratory Cumulative Report (12/07/2013 12:00 AM CERTIFIED NOVELL ENGINEER) 12/07/2013 Narrative HISTORICAL RESULTS - 12/07/2013 3:32 PM CERTIFIED NOVELL ENGINEER ?[facility] ?Department of Laboratories ? [facility] [place] ? [place] [address] [address] Patient Name: ??YARIEL HILL Aleena Med Rec Number: [id number] Fin Number: ?[id number] Date: ?1970 Sex/Age: ? Male 43 years Admit Date: ?12/07/2013 Discharge Date: 12/07/2013 Doctor: ?[facility] Facility: ?[facility] Location: ?[facility] Chart Printed: 12/07/2013 15:32 ?? * Abnormal ?? C Critical ?? f Footnote ?? ^ Corrected ?? L Low ?? H High ? i Interp Data ?? @ Reference Lab ? Chart Type:Periodic ? SELECTED ELECTROLYTES ?Test: Sodium ? Plasma Potassium ??Chloride ? Reference: [135-145] ??[3.3-4.9] ? [97-110] ? Units: mmol/L ? mmol/L ?mmol/L 12/07/2013 ?? 11:06:00 ?? 141 ?3.8 ? 104 ?Test: Total CO2 ??Anion Gap ? Reference: [22-32] ?[0-16] ? Units: mmol/L ? mmol/L 12/07/2013 ?? 11:06:00 ?? 26 ? 11 ? STANDARD BLOOD CHEMISTRY ?Test: BUN ? Creatinine ?? Total Bilirubin ??Glucose ? Reference: [8-25] ??[0.70-1.30] ??[0.3-1.1] ?[70- 199] ? Units: mg/dL ?? mg/dL ?mg/dL ?mg/dL 12/07/2013 ?? 11:06:00 ?? 9 ? 1.03 ? 0.6 ?88 ?Test: Total Calcium ??Plasma Total Protein ??Albumin ? Reference: [8.6-10.3] ? [6.5-8.5] ? [3.6- 5.0] ? Units: mg/dL ?g/dL ?g/dL 12/07/2013 ?? 11:06:00 ?? 9.7 ?7.5 ? 4.6 ?ENZYMES ?Test: Alkaline Phosphatase ??ALT ?AST ? Reference: [38-126] ?[7-53] ?? [11-47] ? Units: Units/L ? Units/L ??Units/L 12/07/2013 ?? 11:06:00 ?? 56 ?14 ? 25 ?URINALYSIS ?Macroscopic ?Test: Color ? Clarity ??Specific [place] ? Reference: [Yellow] ?[Clear] ??[1.003-1.030] ? Units: 12/07/2013 ?? 10:42:00 ?? Light-Yellow ??Clear ?1.009 ?Test: pH ? Albumin ?? Glucose ? Ketones ? Reference: [5.0-8.0] ??[Trace] ?? [Negative] ??[Negative] ? Units: 12/07/2013 ?? 10:42:00 ?? 5.5 ?Negative ??Negative ?Negative ?Test: Bilirubin ?? Blood ? Urobilinogen ? Reference: [Negative] ??[Negative] ??[0.0-2.0] ? Units: ? mg/dL 12/07/2013 ?? 10:42:00 ?? Negative ?Negative ?<2.0 ?Test: Nitrite ? Leuk Esterase ? Reference: [Negative] ??[Negative] ? Units: 12/07/2013 ?? 10:42:00 ?? Negative ?Negative us Historical Provider LAB BLOOD ORDERABLES Carrie khanna Result HISTORICAL RESULTS documented in this encounter Visit Diagnoses Diagnosis Other follow-up examination Acute pancreatitis Cyst and pseudocyst of pancreas Essential hypertension Unspecified essential hypertension Pain in joint, shoulder region Tobacco use disorder Counseling on substance use and abuse Esophageal reflux Impotence of organic origin Pain in soft tissues of limb Need for prophylactic vaccination and inoculation against influenza documented in this encounter
--- OUTSIDE RECORDS SUMMARY | 2024-11-04 22:17 | XMS_ITS | Encounter Summary ---
Author Organization [facility] Facility Care Team Providers Care Stamp Clerk Name Role Phone Unavailable Primary Care Provider Unavailabl e Encounter Details Date Type Department Care Team (Late st Contact Info) Description 04/06/2013 - 04/06/2013 11:59 PM CDT Hospital Encounter [facility]CON[facility] Cyst and pseudocyst of pancreas Social History Tobacco Use Types Packs/Day Years Used Date Smoking Tobacco: Never Assessed Sex and Gender Information Value Date Recorded Sex Assigned at Not on file Legal Sex Male 2:37 PM SAP PROJECT MANAGER Gender Identity Not on file Sexual Orientation Not on file documented as of this encounter Plan of Treatment Not on file documented as of this encounter Procedures Procedure Name Priority Date/Time Associated Diagnosis Comments US ABDOMEN COMPLETE Routine 04/06/2013 7 :42 AM CDT documented in this encounter Results * US Abdomen Complete (04/06/2013 7:42 AM CDT) Anatomical Region Laterality Modality Abdomen N/A Ultrasound 04/06/2013 7:42 AM CDT Narrative 04/06/2013 8:42 AM CDT SHAUNA PARKINSON M.D. FINAL REPORT ACC# ??Date Time ??Exam [id number] Apr 06, 2013 07:42:00 [id number] Sono Abd Complt EXAMINATION: ?? COMPLETE ??ABDOMINAL SONOGRAM HISTORY: ??Cystic pancreatic lesion. FINDINGS: ??The gallbladder is normal with no sludge or focal wall thickening. The liver is normal in size. ??The echotexture is normal. ??The echogenicity is normal. There is no surface nodularity. ??No focal solid lesions are visualized. ??There is no intrahepatic bile duct dilatation. The common duct measures 3 mm, 3 mm, and 4 mm in the proximal, mid and distal segments respectively. ??There is no hydronephrosis in the visualized portions of the kidneys. There is a cystic lesion in the head/uncinate process of the pancreas which measures 3 x 3.2 x 3 cm. This lesion demonstrates a thick nodular wall with no internal echoes. There is increased through transmission. The visualized portions of the head body and tail of the pancreas are otherwise normal. The spleen is normal in size. The proximal IVC and aorta are normal. IMPRESSION: ? 1. ??Cystic lesion within the pancreatic head/uncinate measuring 3.2 cm in maximal dimension with thick nodular wall. This lesion is indeterminate and could represent a pseudocyst in the appropriate clinical setting of prior pancreatitis. Alternatively, a cystic pancreatic neoplasm, potentially a mucinous neoplasm or cystic neuroendocrine tumor would also be in the differential. Recommend correlation with any prior imaging studies and or MRI/M.R.C.P. to further evaluate this finding. Requested By: CRESENCIO DE LEON M.D. Dictated By: ?? SHAUNA PARKINSON M.D. ??on Mar ??2012 ??8:42A This document has been electronically signed by: SHAUNA PARKINSON M.D. on Mar ??2012 ??8:42A Procedure Note Provider, MD Rhett - 02/22/2017 SHAUNA PARKINSON M.D. FINAL REPORT ACC# Date Time Exam [id number] Apr 06, 2013 07:42:00 [id number] Sono Abd Complt EXAMINATION: COMPLETE ABDOMINAL SONOGRAM HISTORY: Cystic pancreatic lesion. FINDINGS: The gallbladder is normal with no sludge or focal wall thickening. The liver is normal in size. The echotexture is normal. The echogenicity is normal. There is no surface nodularity. No focal solid lesions are visualized. There is no intrahepatic bile duct dilatation. The common duct measures 3 mm, 3 mm, and 4 mm in the proximal, mid and distal segments respectively. There is no hydronephrosis in the visualized portions of the kidneys. There is a cystic lesion in the head/uncinate process of the pancreas which measures 3 x 3.2 x 3 cm. This lesion demonstrates a thick nodular wall with no internal echoes. There is increased through transmission. The visualized portions of the head body and tail of the pancreas are otherwise normal. The spleen is normal in size. The proximal IVC and aorta are normal. IMPRESSION: 1. Cystic lesion within the pancreatic head/uncinate measuring 3.2 cm in maximal dimension with thick nodular wall. This lesion is indeterminate and could represent a pseudocyst in the appropriate clinical setting of prior pancreatitis. Alternatively, a cystic pancreatic neoplasm, potentially a mucinous neoplasm or cystic neuroendocrine tumor would also be in the differential. Recommend correlation with any prior imaging studies and or MRI/M.R.C.P. to further evaluate this finding. Requested By: CRESENCIO DE LEON M.D. Dictated By: SHAUNA PARKINSON M.D. on Apr 06 2013 8:42A This document has been electronically signed by: SHAUNA PARKINSON M.D. on Apr 06 2013 8:42A us Historical Provider MD MELÉNDEZ US PROCEDURES Final R esult documented in this encounter Visit Diagnoses Diagnosis Cyst and pseudocyst of pancreas documented in this encounter
--- OUTSIDE RECORDS SUMMARY | 2024-11-04 22:17 | XMS_ITS | Encounter Summary ---
Author Organization [facility] Healthcare Address [address] [place] [address] Care Team Providers Care Plant Breeder Scientist Name Role Phone Unavailable Primary Care Provider Unavailabl e Encounter Details Date Type Department Care Team (Latest Contact Info) Description 12/13/2014 3:13 PM TRUCK DRIVER'S OFFSIDER - 12/13/2014 6:42 PM TRUCK DRIVER'S OFFSIDER Hospital Encounter [facility] [place] [address] [address] Abnormal levels of other serum enzymes; Tobacco use disorder Social History Tobacco Use Types Packs/Day Years Used Date Smoking Tobacco: Never Assessed Sex and Gender Information Value Date Recorded Sex Assigned at Not on file Legal Sex Male 2:37 PM TRUCK DRIVER'S OFFSIDER Gender Identity Not on file Sexual Orientation Not on file documented as of this encounter Last Filed Vital Signs Vital Sign Reading Time Taken Comments Blood Pressure 129/76 12/13/2014 3:26 PM TRUCK DRIVER'S OFFSIDER Pulse 82 12/13/2014 3:26 PM TRUCK DRIVER'S OFFSIDER Temperature 37.3 ??C (99.2 ??F) 12/13/2014 3:26 PM CS T Respiratory Rate - - Oxygen Saturation 100% 12/13/2014 3:26 PM TRUCK DRIVER'S OFFSIDER Inhaled Oxygen Concentration - - Weight 55.3 kg (122 lb) 12/13/2014 3:26 PM TRUCK DRIVER'S OFFSIDER Height 170.2 cm (5' 7 ) 12/13/2014 3:26 PM TRUCK DRIVER'S OFFSIDER Body Mass Index 19.11 12/13/2014 3:26 PM TRUCK DRIVER'S OFFSIDER documented in this encounter Plan of Treatment Not on file documented as of this encounter Procedures Procedure Name Priority Date/Time Associated Diagnosis Comments UA WITH CULTURE REFLEX Routine 5 5:45 PM TRUCK DRIVER'S OFFSIDER CBC WITH AUTO DIFFERENTIAL Routine 12/13/2014 5:03 PM TRUCK DRIVER'S OFFSIDER LIPASE Routine 12/13/2014 5:03 PM TRUCK DRIVER'S OFFSIDER AMYLASE Routine 12/13/2014 5:03 PM TRUCK DRIVER'S OFFSIDER COMPREHENSIVE METABOLIC PANEL Routine 12/13/2014 5:03 PM TRUCK DRIVER'S OFFSIDER documented in this encounter Results * (ABNORMAL) UA with Culture Reflex (12/13/2014 5:45 PM TRUCK DRIVER'S OFFSIDER) Ur Collection Type CLEAN CATCH 12/13/2014 6:07 PM [facility] HISTORICAL RESULTS Ur Culture Indicated? C&S NOT INDICATED 12/13/2014 6:07 PM [facility] HISTORICAL RESULTS Urine Color COLORLESS YELLOW 12/13/2014 6:07 PM [facility] HISTORICAL RESULTS Urine Clarity CLEAR CLEAR 12/13/2014 6:07 PM [facility] HISTORICAL RESULTS Urine Glucose (UA) NORMAL NORMAL mg/dL 12/13/2014 6:07 PM [facility] HISTORICAL RESULTS Urine Bilirubin NEGATIVE NEGATIVE mg/dl 12/13/2014 6:07 PM [facility] HISTORICAL RESULTS Urine Ketones NEGATIVE NEGATIVE mg/dL 12/13/2014 6:07 PM [facility] HISTORICAL RESULTS Ur Specific Ehrenberg 1.003(L) 1.005 - 1.025 12/13/2014 6:07 PM [facility] HISTORICAL RESULTS Urine Blood NEGATIVE NEGATIVE mg/dl 12/13/2014 6:07 PM [facility] HISTORICAL RESULTS Urine pH 7.0 5.0 - 8.0 12/13/2014 6:07 PM [facility] HISTORICAL RESULTS Urine Protein NEGATIVE NEGATIVE mg/dL 12/13/2014 6:07 PM [facility] HISTORICAL RESULTS Urine Urobilinogen NORMAL NORMAL mg/dL 12/13/2014 6:07 PM [facility] HISTORICAL RESULTS Urine Nitrite NEGATIVE NEGATIVE 12/13/2014 6:07 PM [facility] HISTORICAL RESULTS Ur Leukocyte Esterase NEGATIVE NEGATIVE Khalif/ul Ur Microscopic Review Not Indicated 12/13/2014 5:45 PM TRUCK DRIVER'S OFFSIDER 12/13/2014 6:02 PM TRUCK DRIVER'S OFFSIDER Narrative [facility] [place] - 12/13/2014 6:07 PM TRUCK DRIVER'S OFFSIDER Collected By LMD ?? [address] LAB URINE ORDERABLES Final Re sult Performing Organization Address [facility]/ZIP Co de Phone Number [facility] [place] [facility] * (ABNORMAL) Lipase (12/13/2014 5:03 PM TRUCK DRIVER'S OFFSIDER) Lipase 193(H) 13 - 60 U/L 12/13/2014 5:03 PM TRUCK DRIVER'S OFFSIDER 12/13/2014 5:06 PM TRUCK DRIVER'S OFFSIDER Lisa Bustamante LAB BLOOD ORDERABLES Final Resu lt Performing Organization Address [facility] de Phone Number [facility] [place] [facility] * Comprehensive metabolic panel (12/13/2014 5:03 PM TRUCK DRIVER'S OFFSIDER) Sodium 141 135 - 145 mmol/L Potassium 4.1 3.3 - 5.1 mmol/L Chloride 100 96 - 108 mmol/L Carbon Dioxide 29 22 - 32 mmol/L Anion Gap 12 7 - 16 Glucose 78 70 - 100 mg/dL Comment:As of October 02 14 new normal range in use. BUN 7 6 - 20 mg/dL Creatinine 0.9 0.5 - 1.3 mg/dL 12/13/2014 5:31 PM [facility] HISTORICAL RESULTS Kidney Disease Stage > 90 mL/MIN 12/13/2014 5:31 PM [facility] HISTORICAL RESULTS Comment: NOTE; ??The GFR is an estimated value using the creatinine, sex, age, and race of the patient. THE ESTIMATED GFR IS VALIDATED FOR AGES 18-70 YEARS STAGE ?mL/Min ?DESCRIPTION ??1 ?90 mL/min or more ?Normal or elevated GFR ??2 ? 60-89 mL/min ?Mildly decreased GFR ??3 ? 30-59 mL/min ?Moderately decreased GFR ??4 ? 15-29 mL/min ?Severely decreased GFR ??5 ? <15 mL/min ? Kidney failure or on dialysis @ Calcium 9.3 8.6 - 10.0 mg/dL 12/13/2014 5:31 PM [facility] HISTORICAL RESULTS Total Protein 7.5 6.4 - 8.3 g/dL 12/13/2014 5:31 PM [facility] HISTORICAL RESULTS Albumin 4.5 3.5 - 5.2 g/dL 12/13/2014 5:31 PM [facility] HISTORICAL RESULTS Globulin 3.0 2.3 - 3.5 gm/dL 12/13/2014 5:31 PM [facility] HISTORICAL RESULTS Albumin/Globulin Ratio 1.5 1.1 - 1.8 12/13/2014 5:31 PM [facility] HISTORICAL RESULTS Total Bilirubin 0.4 0.0 - 1.2 mg/dL 12/13/2014 5:31 PM [facility] HISTORICAL RESULTS AST 19 0 - 40 U/L 12/13/2014 5:31 PM [facility] HISTORICAL RESULTS ALT 9 0 - 41 U/L 12/13/2014 5:31 PM [facility] HISTORICAL RESULTS Alkaline Phosphatase 58 40 - 129 U/L 12/13/2014 5:03 PM TRUCK DRIVER'S OFFSIDER 12/13/2014 5:06 PM [facility] Lisa Yost [place] LAB BLOOD ORDERABLES Final Resu lt [facility] [place] [facility] * (ABNORMAL) CBC with auto differential (12/13/2014 5:03 PM [facility]) WBC 7.5 4.6 - 10.2 x10 3/ul RBC 4.20 4.11 - 5.71 x10 6/ul Hemoglobin 13.6 13.0 - 17.0 g/dl Hct 37.7(L) 38.2 - 48.5 % MCV 89.8 80.0 - 97.0 fl MCH 32.4(H) 27.0 - 31.2 pg MCHC 36.1(H) 31.8 - 35.4 g/dl RDW 12.4 11.6 - 14.8 % Plt Count 163 124 - 400 x10 3/ul MPV 8.7 7.4 - 10.4 fl Differential Method AUTOMATED DIFF --------- -- Neut % 66.2 37.0 - 85.0 % Immature Gran % 0.1 0.0 - 3.0 % Lymph % 25.0 5.0 - 45.0 % Powell % 5.2 3.0 - 15.0 % Eos % 3.1 0.0 - 7.0 % Baso % 0.4 0.0 - 2.0 % ABSOLUTE COUNTS ABSOLUTE COUNTS --------- -- Absolute Neuts (auto) 4.9 1.7 - 8.7 x10 3/ul Immature Gran # 0.0 0.0 - 0.3 x10 3/ul Absolute Lymphs (auto) 1.9 0.2 - 4.6 x10 3/ul Absolute Monos (auto) 0.4 0.1 - 1.5 x10 3/ul Absolute Eos (auto) 0.2 0.0 - 0.7 x10 3/ul Absolute Basos (auto) 0.0 0.0 - 0.2 x10 3/ul 12/13/2014 5:03 PM TRUCK DRIVER'S OFFSIDER 12/13/2014 5:06 PM TRUCK DRIVER'S OFFSIDER us Lisa Bustamante LAB BLOOD ORDERABLES Final Resu lt [facility] [place] [facility] * (ABNORMAL) Amylase (12/13/2014 5:03 PM TRUCK DRIVER'S OFFSIDER) Amylase 137(H) 28 - 100 U/L 12/13/2014 5:31 PM TRUCK DRIVER'S OFFSIDER [facility] [place] RESULTS 12/13/2014 5:03 PM TRUCK DRIVER'S OFFSIDER 12/13/2014 5:06 PM TRUCK DRIVER'S OFFSIDER us Lisa Bustamante LAB BLOOD ORDERABLES Final Resu lt [facility] [place] H[place]ICAL RES[place] documented in this encounter Visit Diagnoses Diagnosis Abnormal levels of other serum enzymes Tobacco use disorder documented in this encounter
--- OUTSIDE RECORDS SUMMARY | 2024-11-04 22:17 | XMS_ITS | Encounter Summary ---
Author Organization [facility] Facility Care Team Providers Care Repairer Welding Equipment Name Role Phone Unavailable Primary Care Provider Unavailabl e Encounter Details Date Type Department Care Team (Late st Contact Info) Description 12/08/2012 10:36 AM SENIOR TECHNICAL EDITOR - 12/08/2012 4:00 PM SENIOR TECHNICAL EDITOR Hospital Encounter [facility] Christiano Heller MD [address] [address] Abdominal pain, epigastric; Alcohol abuse; Pain in joint, shoulder region; Vitamin D deficiency; Tobacco use disorder Social History Tobacco Use Types Packs/Day Years Used Date Smoking Tobacco: Never Assessed Sex and Gender Information Value Date Recorded Sex Assigned at Not on file Legal Sex Male 2:37 PM SENIOR TECHNICAL EDITOR Gender Identity Not on file Sexual Orientation Not on file documented as of this encounter Plan of Treatment Not on file documented as of this encounter Procedures Procedure Name Priority Date/Time Associated Diagnosis Comments SERUM HELICOBACTER PYLORI AB, IGG Routine 12/08/2012 6:15 AM SENIOR TECHNICAL EDITOR BLOOD CELL COUNT (CBC) Routine 12/08/2012 6:15 AM SENIOR TECHNICAL EDITOR DISCHARGE LABORATORY CUMULATIVE REPORT Routine 12/08/2012 12:00 AM SENIOR TECHNICAL EDITOR documented in this encounter Results * Serum Helicobacter pylori ab, IgG (12/08/2012 6:15 AM SENIOR TECHNICAL EDITOR) H. pylori ab, IgG Negative Negative HISTORICAL RESULTS Serum 12/08/2012 6:15 AM SENIOR TECHNICAL EDITOR Narrative HISTORICAL RESULTS - 12/12/2012 6:16 AM SENIOR TECHNICAL EDITOR LAB Frequency Standing Order? No Expiration Date: Quentin Mcintyre MD LAB BLOOD ORDERABLES Final Result HISTORICAL RESULTS * (ABNORMAL) Blood cell count (CBC) (12/08/2012 6:15 AM SENIOR TECHNICAL EDITOR) WBC 7.6 3.8 - 9.8 K/cumm HISTORICAL RESULTS RBC 4.30(L) 4.50 - 5.70 M/cumm HISTORICAL RESULTS Hgb 14.8 13.8 - 17.2 g/dl HISTORICAL RESULTS Hct 43.4 40.7 - 50.3 % HISTORICAL RESULTS MCV 100.9(H) 80.0 - 97.6 fl HISTORICAL RESULTS MCH 34.3(H) 26.7 - 33.7 pg HISTORICAL RESULTS MCHC 34.0 32.7 - 35.5 g/dl HISTORICAL RESULTS Rdw 13.9 11.8 - 14.6 % HISTORICAL RESULTS Platelets 191 140 - 440 K/cumm HISTORICAL RESULTS MPV 8.2 6.8 - 10.4 fl HISTORICAL RESULTS Neutrophils 61.9 38.7 - 74.5 % HISTORICAL RESULTS Lymphocytes 27.5 20.0 - 54.3 % HISTORICAL RESULTS Monos 7.3 4.3 - 13.5 % HISTORICAL RESULTS Eosinophils 2.9 0.0 - 6.0 % HISTORICAL RESULTS Basophils 0.4 0.0 - 3.0 % HISTORICAL RESULTS Neutrophils, abs 4.7 1.8 - 6.6 K/cumm HISTORICAL RESULTS Lymphocytes, abs 2.1 1.2 - 3.3 K/cumm HISTORICAL RESULTS Monocytes, absolute 0.6 0.2 - 1.2 K/cumm HISTORICAL RESULTS Eosinophils, abs 0.2 0.0 - 0.5 K/cumm HISTORICAL RESULTS Basophils, abs 0.0 0.0 - 0.2 K/cumm HISTORICAL RESULTS Blood specimen (specimen) 12/08/2012 6:15 AM SENIOR TECHNICAL EDITOR Narrative HISTORICAL RESULTS - 12/08/2012 7:25 AM SENIOR TECHNICAL EDITOR LAB Frequency Standing Order? No Expiration Date: us Quentin Mcintyre MD LAB BLOOD ORDERABLES Final Result HISTORICAL RESULTS * Discharge Laboratory Cumulative Report (12/08/2012 12:00 AM SENIOR TECHNICAL EDITOR) 12/08/2012 Narrative HISTORICAL RESULTS - 12/12/2012 3:34 PM SENIOR TECHNICAL EDITOR ?[facility] ?Department of Laboratories ? [facility] [place] ? [place] [address] Patient Name: ??YARIEL HILL Med Rec Number: [id number] Fin Number: ?[id number] Date: ?1970 Sex/Age: ? Male 42 years Admit Date: ?12/08/2012 Discharge Date: 12/08/2012 Doctor: ?[facility] , [facility] Facility: ?[facility] Location: ?[facility] Chart Printed: 12/12/2012 15:34 ?? * Abnormal ?? C Critical ?? f Footnote ?? ^ Corrected ?? L Low ?? H High ? i Interp Data ?? @ Reference Lab ? Chart Type:Periodic ? SEROLOGY-BACTERIAL TESTS ?Test: H pylori, IgG ? Reference: [Negative] ? Units: 12/08/2012 ?? 12:15:00 ?? Negative 12/08/2012 12:15:00 ??H Pyl Ab: LAB Frequency Standing Order? No Expiration Date: us Historical Provider LAB BLOOD ORDERABLES Carrie khanna Result HISTORICAL RESULTS documented in this encounter Visit Diagnoses Diagnosis Abdominal pain, epigastric Alcohol abuse Nondependent alcohol abuse, unspecified drinking behavior Pain in joint, shoulder region Vitamin D deficiency Tobacco use disorder documented in this encounter
--- OUTSIDE RECORDS SUMMARY | 2024-11-04 22:17 | XMS_ITS | Encounter Summary ---
Author Organization [facility] Facility Care Team Providers Care Trauma Counsellor Name Role Phone Unavailable Primary Care Provider Unavailabl e Encounter Details Date Type Department Care Team (Late st Contact Info) Description 07/12/2013 10:12 AM CDT - 07/12/2013 4:00 PM T Hospital Encounter [facility] Christiano Heller MD [address] [address] Acute pancreatitis; Cyst and pseudocyst of pancreas; Essential hypertension; Pain in joint, shoulder region; Tobacco use disorder; Esophageal reflux; Impotence of organic origin; Pain in soft tissues of limb Social History Tobacco Use Types Packs/Day Years Used Date Smoking Tobacco: Never Assessed Sex and Gender Information Value Date Recorded Sex Assigned at Not on file Legal Sex Male 2:37 PM 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
--- OUTSIDE RECORDS SUMMARY | 2024-11-04 22:17 | XMS_ITS | Encounter Summary ---
Author Organization [facility] Facility Care Team Providers Care Terrazzo Tile Setter Name Role Phone Unavailable Primary Care Provider Unavailabl e Encounter Details Date Type Department Care Team (Late st Contact Info) Description 03/21/2015 10:13 AM CDT - 03/21/2015 4:00 PM CDT Hospital Encounter [facility] Rocco Brambila MD [address] [place] [address] Mechanical complication due to other implant and internal device, not elsewhere classified; Other specified procedure as the cause of abnormal reaction of patient or of later complication; Chronic pancreatitis (CMS/HCC) (HCC); Esophageal reflux; Essential hypertension; Cyst and pseudocyst of pancreas Social History Tobacco Use Types Packs/Day Years Used Date Smoking Tobacco: Never Assessed Sex and Gender Information Value Date Recorded Sex Assigned at Not on file Legal Sex Male 2:37 PM CODE ENFORCEMENT OFFICER Gender Identity Not on file Sexual Orientation Not on file documented as of this encounter Plan of Treatment Not on file documented as of this encounter Procedures Procedure Name Priority Date/Time Associated Diagnosis Comments FL ERCP BILIARY DUCT Routine 03/21/2015 11:36 AM CDT CHOLANGIOPANCREATOGR APHY, RETROGRADE, ENDOSCOPIC 03/21/2015 documented in this encounter Results * XR ERCP BILIARY DUCT (03/21/2015 11:36 AM CDT) Anatomical Region Laterality Modality Body N/A Radiographic Vashti ging 03/21/2015 11:3 6 AM CDT Narrative 03/21/2015 12:08 PM CDT This examination was converted from a legacy system and did not match a report, either due to it being a non-reportable examination, or a duplicate entry Procedure Note ProviderRhett MD - 06/06/2017 This examination was converted from a legacy system and did not match [place]port, either due to it being a non-reportable examination, or aduplicate entry Historical Provider MD MELÉNDEZ FLUOROSCOPY PROCEDURE S Final Result * CHOLANGIOPANCREATOGRAPHY, RETROGRADE, ENDOSCOPIC (03/21/2015) Anatomical Region Laterality Modality N/A Radiographic Vashti ging Narrative 03/21/2015 Ordered by an unspecified provider. Historical Provider MD MELÉNDEZ XR PROCEDURES Final R esult documented in this encounter Visit Diagnoses Diagnosis Mechanical complication due to other implant and internal device, not elsewhere classified Other specified procedure as the cause of abnormal reaction of patient or of later complication Chronic pancreatitis (CMS/HCC) (HCC) Chronic pancreatitis Esophageal reflux Essential hypertension Unspecified essential hypertension Cyst and pseudocyst of pancreas documented in this encounter
--- OUTSIDE RECORDS SUMMARY | 2024-11-04 22:18 | XMS_ITS | Encounter Summary ---
Author Organization [facility] Facility Care Team Providers Care Bus Monitor Name Role Phone Unavailable Primary Care Provider Unavailabl e Encounter Details Date Type Department Care Team (Late st Contact Info) Description 02/06/2007 - 02/06/2007 11:59 PM CDT Hospital [facility] MD [address] [facility] [address] [place] [address] Social History Tobacco Use Types Packs/Day Years Used Date Smoking Tobacco: Never Assessed Sex and Gender Information Value Date Recorded Sex Assigned at Not on file Legal Sex Male 2:37 PM RACKMAN Gender Identity Not on file Sexual Orientation Not on file documented as of this encounter Plan of Treatment Not on file documented as of this encounter Visit Diagnoses Not on filedocumented in this encounter
--- OUTSIDE RECORDS SUMMARY | 2024-11-04 22:20 | XMS_ITS ---
Author Organization [facility] Address [address] [facility] [address] [place], [place] [address] Care Team Providers Care Transverse Abdominal Muscle Surgeon Name Role Phone Glen Schafer Unavailable [phone] Migration, Provider Unavailable Unavailable REASON FOR VISIT Multum To Medispan Conversion Encounter Medications Medication SIG (Take, Route, Fr equency, Duration) Notes Start Date End Date Status Lisinopril 20 MG 1 tab(s) orally once a day Active Omeprazole 20 MG 1 cap(s) orally once a day Active Encounters Encounter Location Date Provider Diagnosis [facility] [address] [facility] [address] [place], [place] [id number] 10/13/2024 Provider Migration Plan Of Treatment No Information Progress Notes * Yariel HILLDOB:[birth year] (54 yo M)Acc No.[id number]:10/13/2024 Patient:?Yariel HILL Provider:?Provider Migration :1970???Age:54 Y???Sex:Male Derrell e:10/13/2024 Address:[address] [place], [place] [id number] Subjective: * Chief Complaints: * ???1. Multum To Medispan Con version Encounter. * Medical History:? * Medications:?Taking Lisinopr il 20 MG Tablet 1 tab(s) orally once a day , Taking Omeprazole 20 MG Capsule Delayed Release 1 cap(s) orally once a day Objective: * Vitals:? * Physical Examination:? Assessment: Plan: * Treatment: * * Electronic signature of Prov ider Migration on 11/04/2024 at 10:20 PM CHART CALCULATOR Sign off status: Pending * Provider:?Provider Migration Date:?10/13 Generated for Nazario arrington/Harvey/Dario on:?11/04/2024 10:20 PM CHART CALCULATOR
--- OUTSIDE RECORDS SUMMARY | 2024-11-04 22:20 | XMS_ITS | Encounter Summary ---
[facility] Organization [facility] Address [address] [place] [address] Care Team Providers Care Project Controller Name Role Phone Clare Kasper MD Primary Care Pro vider Encounter Details Date Type Department Care Team (Late st Contact Info) Description 07/17/2024 External Device Data [place] ABSTRACTION Provider, Abstract NO ADDRESS ON FILE Social History Tobacco Use Types Packs/Day Years Used Date Smoking Tobacco: Never Assessed Sex and Gender Information Value Date Recorded Sex Assigned at Not on file Gender Identity Not on file Sexual Orientation Not on file documented as of this encounter Plan of Treatment Not on file documented as of this encounter Visit Diagnoses Not on filedocumented in this encounter Care Teams Project Controller Relationship Specialty Start Date End Date Clare Kasper MD [address] [address] PCP - General Family Practice 07/11/24 documented as of this encounter
--- OUTSIDE RECORDS SUMMARY | 2024-11-04 22:20 | XMS_ITS | Patient Health Record ---
Author Organization [facility] Address [address] [facility] [address] [place], [place] [address] Care Team Providers Care Substation Operator Apprentice Name Role Phone Glen Schafer Unavailable [phone] Migration, Provider Unavailable Unavailable Reason For Referral No Information Medications Medication SIG (Take, Route, Fr equency, Duration) Notes Start Date End Date Status Lisinopril 20 MG 1 tab(s) orally once a day Active Omeprazole 20 MG 1 cap(s) orally once a day Active Social History Tobacco Use: Social History Observation Description Date Details (start date - stop date) Current Smoker NA - NA Smoking Question Answer Notes Are you a: current smoker Problems Problem Type SNOMED Code ICD Code Onset Dates Problem Status W/U Status Risk Notes Problem Tinnitus (66750356) TINNITUS (388.30) Active confirmed Problem Tobacco use (272834054) TOBACCO USE DISORDER (305.1) Active confirmed Encounters Encounter Location Date Provider Diagnosis [facility] [address] [facility] [address] [place], [place] [id number] 10/13/2024 Provider Migration Plan Of Treatment No Information Insurance Providers Payer Name Payer Address Payer Phone Subscriber Number Group Number Insured Name Patient Relationship to Insured Coverage Start Date Coverage End Date ESIS [id number] [id number] Yariel Hill Self - patient is the insured Medical (General) History Medical History History ICD Code Pertinent Medical History: Ear problems, High blood pressure, Surgical History Surgery Date(Month/Year) carpel tunnel 2008
--- OUTSIDE RECORDS SUMMARY | 2024-11-04 22:20 | XMS_ITS | Encounter Summary ---
Author Organization [facility] Address [address] [place] [address] Care Team Providers Care Thermal Cutter Helper Name Role Phone Clare Kasper MD [...] on filedocumented in this encounter Care Teams Thermal Cutter Helper Relationship Specialty Start Date End Date Clare Kasper MD [address] [address] PCP - General Family Practice 07/11/24 documented as of this encounter
--- OUTSIDE RECORDS SUMMARY | 2024-11-04 22:20 | XMS_ITS | Encounter Summary ---
Author Organization [facility] Address [address] [place] [address] Care Team Providers Care Mysql Developer Name Role Phone Clare Kasper MD Primary Care Pro vider Reason for Visit * Reason Onset Date Comments Results 07/17/2024 Encounter Details Date Type Department Care Team ([facility] st Contact Info) Description 07/17/2024 [facility]phone [facility] [place] [address] Magdalena Chua ANP [address] [place] [address] Results Social History Tobacco Use Types Packs/Day Years Used Date Smoking Tobacco: Never Assessed Sex and Gender Information Value Date Recorded Sex Assigned at Not on file Gender Identity Not on file Sexual Orientation Not on file documented as of this encounter Miscellaneous Notes * Telephone Encounter - Dixie Childs RN - 07/17/2024 2:17 PM CDT Spoke to pt giving this information. Pt verbalized understanding. Advised pt to follow up with PCP,Dr. Kasper * Telephone Encounter - Magdalena Chua ANP - 07/17/2024 11:07 AM CDT Please call pt: WWT Lab results show he is anemic- red blood cells are larger than normal- sometimes due to folate or B12 deff. Kidneys, liver, thyroid, chol look fine Fasting blood sugar is above normal Please encourage follow up with his PCP Thanks documented in this encounter Plan of Treatment Not on file documented as of this encounter Visit Diagnoses Not on filedocumented in this encounter Care Teams Mysql Developer Relationship Specialty Start Date End Date Clare Kasper MD [address] [place] [phone] PCP - General Family Practice 07/11/24 documented as of this encounter
--- OUTSIDE RECORDS SUMMARY | 2024-11-04 22:20 | XMS_ITS | Encounter Summary ---
Author Organization [facility] Address [address] [place] [address] Care Team Providers Care Meat Cutter Apprentice Name Role Phone Clare Kasper MD Primary Care Pro vider Reason for Visit * Reason Comments Labs Only Encounter Details Date Type Department Care Team ([facility] Contact Info) Description 07/11/2024 10:20 AM CDT Office Visit [facility] [place] [address] [place] [phone] Screening for condition (Primary Dx) Social History Tobacco Use Types Packs/Day Years Used Date Smoking Tobacco: Never Assessed Sex and Gender Information Value Date Recorded Sex Assigned at Not on file Gender Identity Not on file Sexual Orientation Not on file documented as of this encounter Last Filed Vital Signs Vital Sign Reading Time Taken Comments Blood Pressure 122/68 07/11/2024 10:41 AM CDT Pulse - - Temperature - - Respiratory Rate - - Oxygen Saturation - - Inhaled Oxygen Concentration - - Weight 55.8 kg (123 lb) 07/11/2024 10:41 AM CDT Height 170.2 cm (5' 7 ) 07/11/2024 10:41 AM CDT Body Mass Index 19.26 07/11/2024 10:41 AM CDT documented in this encounter Progress Notes * Roque Franco - 07/11/2024 10:41 AM CDT Patient presents for labs only, drawn from right ac, one stick. Patient tolerated well. documented in this encounter Plan of Treatment Not on file documented as of this encounter Procedures Procedure Name Priority Date/Time Associated Diagnosis Comments CBC WITH DIFFERENTIAL Routine 07/11/2024 10:28 AM CDT Screening for condition TSH Routine 07/11/2024 10:28 AM CDT Screening for condition LIPID PANEL Routine 07/11/2024 10:28 AM CDT Screening for condition COMPREHENSIVE METABOLIC PANEL Routine 07/11/2024 10:28 AM CDT Screening for condition documented in this encounter Results * TSH (07/11/2024 10:28 AM CDT) TSH 0.53 0.40 - 4.50 mIU/L [facility] Comment: Test Performed at: [facility] [address] [place], [place] ??[phone] Yadira Coleman MD Blood 07/11/2024 10:2 8 AM CDT 07/12/2024 12:13 PM CDT Magdalena JOHNSON CHEMISTRY OR DERABLES [facility] [phone] [facility] [address] [place] [address] * LIPID PANEL (07/11/2024 10:28 AM CDT) CHOLESTEROL 140 <200 mg/dL [facility] HDL 59 > OR = 40 mg/dL [facility] TRIGLYCERIDE 103 <150 mg/dL [facility] LDL CALCULATED 62 mg/dL (calc) [facility] Comment: Reference range: <100 Desirable range <100 mg/dL for primary prevention; ?? <70 mg/dL for patients with CHD or diabetic patients with > or = 2 CHD risk factors. LDL-C is now calculated using the Roe-Abrams calculation, which is a validated novel method providing better accuracy than the Friedewald equation in the estimation of LDL-C. Roe SS et al. DOLLY. 2013;310(19): 8794-6105 (http://education.YoQueVos/faq/UAB926) CHOL/HDL RATIO 2.4 <5.0 (calc) [facility] NON-HDL CHOLESTEROL 81 <130 mg/dL (calc) [facility] Comment: For patients with diabetes plus 1 major ASCVD risk factor, treating to a non-HDL-C goal of <100 mg/dL (LDL-C of <70 mg/dL) is considered a therapeutic option. Test Performed at: [facility] [address] [place] ??[phone] Yadira Coleman MD Blood 07/11/2024 10:2 8 AM CDT 07/12/2024 12:13 PM CDT Magdalena JOHNSON CHEMISTRY OR DERABLES [facility] [phone] [facility] [address] [place] [address] * (ABNORMAL) COMPREHENSIVE METABOLIC PANEL (07/11/2024 10:28 AM CDT) GLUCOSE 117(H) 65 - 99 mg/dL [facility] Comment: ? Fasting reference interval For someone without known diabetes, a glucose value between 100 and 125 mg/dL is consistent with prediabetes and should be confirmed with a follow-up test. BUN 12 7 - 25 mg/dL [facility] CREATININE 0.96 0.70 - 1.30 mg/dL [facility] GFR 94 > OR = 60 mL/min/1. 73m2 [facility] BUN/CREAT RATIO SEE NOTE: (calc) [facility] Comment: ?? Not Reported: BUN and Creatinine are within ?? reference range. ? SODIUM 141 135 - 146 mmol/L [facility] POTASSIUM 3.7 3.5 - 5.3 mmol/L [facility] CHLORIDE 104 98 - 110 mmol/L [facility] CO2 26 20 - 32 mmol/L [facility] CALCIUM 9.0 8.6 - 10.3 mg/dL [facility] TOTAL PROTEIN 6.4 6.1 - 8.1 g/dL [facility] ALBUMIN 4.2 3.6 - 5.1 g/dL [facility] GLOBULIN 2.2 1.9 - 3.7 g/dL (calc) [facility] ALBUMIN/GLOBULIN RATIO 1.9 1.0 - 2.5 (calc) [facility] BILIRUBIN TOTAL 0.3 0.2 - 1.2 mg/dL [facility] ALKALINE PHOSPHATASE 63 35 - 144 U/L [facility] AST 25 10 - 35 U/L [facility] ALT 26 9 - 46 U/L [facility] Comment: Test Performed at: [facility] ??[phone] Yadira Coleman MD Blood 07/11/2024 10:2 8 AM CDT 07/12/2024 12:13 PM CDT Magdalena JOHNSON CHEMISTRY OR DERABLES [facility] [phone] [facility] [address] * (ABNORMAL) CBC WITH DIFFERENTIAL (07/11/2024 10:28 AM CDT) WBC 7.5 3.8 - 10.8 Thousand/u L [facility] RBC 4.04(L) 4.20 - 5.80 Million/uL [facility] HEMOGLOBIN 13.0(L) 13.2 - 17.1 g/dL [facility] HEMATOCRIT 41.1 38.5 - 50.0 % [facility] MCV 101.7(H) 80.0 - 100.0 fL [facility] MCH 32.2 27.0 - 33.0 pg [facility] MCHC 31.6(L) 32.0 - 36.0 g/dL [facility] RDW 12.1 11.0 - 15.0 % [facility] PLATELETS 189 140 - 400 Thousand/u L [facility] MPV 10.0 7.5 - 12.5 fL [facility] NEUTROPHIL ABSOLUTE 4,478 1,500 - 7,800 cells/uL [facility] LYMPHOCYTE ABSOLUTE 2,288 850 - 3,900 cells/uL [facility] MONOCYTE ABSOLUTE 323 200 - 950 cells/uL [facility] EOSINOPHIL ABSOLUTE 383 15 - 500 cells/uL [facility] BASOPHILS ABSOLUTE 30 0 - 200 cells/uL [facility] NEUTROPHIL 59.7 % [facility] LYMPHOCYTES 30.5 % [facility] MONOCYTE 4.3 % [facility] EOSINOPHILS 5.1 % [facility] BASOPHILS 0.4 % [facility] Comment: Test Performed at: [facility] [address] [place], [place] ??[phone] Yadira Coleman MD Blood 07/11/2024 10:2 8 AM CDT 07/12/2024 12:13 PM CDT Magdalena JOHNSON HEMATOLOGY O RDERABLES [facility] [phone] [facility] [address] [place] [address] documented in this encounter Visit Diagnoses Diagnosis Screening for condition- Primary Screening for unspecified condition documented in this encounter Care Teams Meat Cutter Apprentice Relationship Specialty Start Date End Date Clare Kasper MD [address] [place] [phone] PCP - General Family Practice 07/11/24 documented as of this encounter
--- OUTSIDE RECORDS SUMMARY | 2024-11-04 22:20 | XMS_ITS | Encounter Summary ---
Author Organization [facility] Address [address] [place] [address] Care Team Providers Care Floor Coverer Name Role Phone Clare Kasper MD Primary Care Pro vider Encounter Details Date Type Department Care Team (Late st Contact Info) Description 07/31/2024 External Device Data STL ABSTRACTION Provider, Abstract [...] on filedocumented in this encounter Care Teams Floor Coverer Relationship Specialty Start Date End Date Clare Kasper MD [address] [address] PCP - General Family Practice 07/11/24 documented as of this encounter
--- OUTSIDE RECORDS SUMMARY | 2024-11-04 22:20 | XMS_ITS | Clinical Summary ---
Author Organization [facility] Address [address] [place] [address] Care Team Providers Care Public Health Worker Name Role Phone Clare Kasper MD Primary Care Pro vider Active Problems No known active problems Encounters Date Type Department Care Team Description 08/29/2024 External Device Data STL ABSTRACTION Provider, Abstract from Last 3 Months Social History Tobacco Use Types Packs/Day Years [...] Mass Index 19.26 07/11/2024 10:41 AM CDT Plan of Treatment Health Maintenance Due Date Last Done Comments HEPATITIS B VACCINES (2 of 3 - Hep B Twinrix 3-dose series) 12/18/2012 11/20/2012 FIT-DNA Q 3 years 2015 FIT/FOBT Q 1 year 2015 Flex Sig/CT Colonography Q 5 years 2015 DTAP/TDAP/TD VACCINES (4 - Td or Tdap) 08/31/2023 08/31/2013, 04/05/2013, 11/20/2012 INFLUENZA VACCINE (#1) 2024 3, 08/07/2022, 08/07/2022, Additional history exists COVID-19 Vaccine ( season) 2024 08/07/2022, 08/07/2022, 01/30/2022, Additional history exists COLORECTAL SCREENING 06/24/2031 06/24/2021, 06/24/2021, 05/14/2020 Colorectal Cancer Screening 06/24/2031 PNEUMOCOCCAL VACCINE 0-64 YEARS Aged Out 06/18/2020, 11/20/2012, 11/13/2012 No longer eligible based on patient's age to complete this topic ZOSTER VACCINE Completed 06/10/2023, 04/04/2023 Care Teams Public Health Worker Relationship Specialty Start Date End Date Clare Kasper MD [address] [place] [address] PCP - General Family Practice 07/11/24
--- OUTSIDE RECORDS SUMMARY | 2024-11-04 22:20 | XMS_ITS | Encounter Summary ---
Author Organization [facility] Address [address] [place] [address] Care Team Providers Care Integration Developer Name Role Phone Clare Kasper MD Primary Care Pro vider Encounter Details Date Type Department Care Team (Late st Contact Info) Description 08/29/2024 External Device Data STL ABSTRACTION [...] on filedocumented in this encounter Care Teams Integration Developer Relationship Specialty Start Date End Date Clare Kasper MD [address] [address] PCP - General Family Practice 07/11/24 documented as of this encounter
--- OUTSIDE RECORDS SUMMARY | 2024-11-04 22:21 | XMS_ITS | Encounter Summary ---
Author Organization [employer] [employer] Address [address] [place] [address] Care Team Providers Care Remelt Furnace Expediter Name Role Phone Clare Kasper MD Primary Care Pro vider Encounter Details Date Type Department Care Team (Late st Contact Info) Description 11/17/2004 Outpatient Historical [facility] Clifford Chandra MD [facility] [place], [place] [phone] Er, Authorized P NO ADDRESS ON FILE ABDOMINAL PAIN OTHER SPEC SITE (Primary Dx) Social History Tobacco Use Types [...] Associated Diagnosis Comments CBC WITH DIFFERENTIAL Routine 11/17/2004 11:50 PM FOREST EXAMINER CBC WITH DIFFERENTIAL Routine 11/17/2004 11:50 PM FOREST EXAMINER LIPASE Routine 11/17/2004 11:50 PM FOREST EXAMINER AMYLASE Routine 11/17/2004 11:50 PM FOREST EXAMINER documented in this encounter Results * CBC WITH DIFFERENTIAL (11/17/2004 11:50 PM FOREST EXAMINER) NEUTROPHILS 51 45 - 70 % INTERFAC E SYSTEM LYMPHOCYTES 39 16 - 45 % INTERFAC E SYSTEM MONOCYTES 7 3 - 13 % INTERFACE SYSTEM EOSINOPHILS 3 0 - 7 % INTERFAC E SYSTEM BASOPHILS 0 0 - 2 % INTERFACE SYSTEM NEUTROPHIL ABSOLUTE 4.98 1.90 - 7.00 K/uL INTERFACE SYSTEM LYMPHOCYTE ABSOLUTE 3.82 0.70 - 4.50 K/uL INTERFACE SYSTEM MONOCYTE ABSOLUTE 0.65 0.10 - 1.30 K/uL INTERFACE SYSTEM EOSINOPHIL ABSOLUTE 0.31 0.00 - 0.70 K/uL INTERFACE SYSTEM BASOPHILS ABSOLUTE 0.04 0.00 - 0.20 K/uL INTERFACE SYSTEM 11/17/2004 11:5 0 PM FOREST EXAMINER Clifford Chandra MD HEMATOLOGY ORDERABLE S INTERFACE SYSTEM Refer to clinic/hospital department * CBC WITH DIFFERENTIAL (11/17/2004 11:50 PM FOREST EXAMINER) WBC 9.8 4.0 - 9.8 K/uL INTERFACE SYSTEM RBC 4.91 4.50 - 5.40 M/uL INTERFACE SYSTEM HEMOGLOBIN 15.6 13.6 - 16.5 g/dL INTERFACE SYSTEM HEMATOCRIT 45.2 40.0 - 48.0 % INTERFACE SYSTEM MCV 92.1 82.0 - 99.0 fL INTERFACE SYSTEM MCH 31.8 27.2 - 32.6 pg INTERFACE SYSTEM MCHC 34.5 31.5 - 35.5 % INTERFACE SYSTEM RDW 12.9 11.5 - 14.5 % INTERFACE SYSTEM RDW-STDEV 43.2 37.1 - 48.7 fL INTERFACE SYSTEM PLATELETS 235 140 - 350 K/uL INTERFACE SYSTEM MPV 10.0 9.3 - 12.4 fL INTERFACE SYSTEM 11/17/2004 11:5 0 PM FOREST EXAMINER Clifford Chandra MD HEMATOLOGY ORDERABLE S INTERFACE SYSTEM Refer to clinic/hospital department * LIPASE (11/17/2004 11:50 PM FOREST EXAMINER) LIPASE 31 13 - 60 U/L INTERFAC E SYSTEM 11/17/2004 11:5 0 PM FOREST EXAMINER Clifford Chandra MD CHEMISTRY ORDERABLES INTERFACE SYSTEM Refer to clinic/hospital department * AMYLASE (11/17/2004 11:50 PM FOREST EXAMINER) AMYLASE 85 28 - 100 U/L INTERFACE SYSTEM 11/17/2004 11:5 0 PM FOREST EXAMINER Clifford Chandra MD CHEMISTRY ORDERABLES Performing Organization Address City[facility] de Phone Number INTERFACE SYSTEM Refer to clinic/hospital department documented in this encounter Visit Diagnoses Diagnosis Abdominal pain, other specified site- Primary documented in this encounter Care Teams Remelt Furnace Expediter Relationship Specialty Start Date End Date Clare Kasper MD [address] [place] [phone] PCP - General Family Practice 07/11/24 documented as of this encounter
== END 2024-10-28 22:04 | disposition home or self-care (01) ==
PROVIDERS: Emergency Provider Physician Assistant; PCP Hospitalist
DX: F10.20 Alcohol dependence, uncomplicated (principal); K21.9 Gastro-esophageal reflux disease without esophagitis; E78.5 Hyperlipidemia, unspecified; I10 Essential (primary) hypertension; K86.1 Other chronic pancreatitis; F17.210 Nicotine dependence, cigarettes, uncomplicated
CPT/HCPCS: 99283; A9270

== ENCOUNTER 2024-10-31 16:38 | Emergency (ER) | payer OTHER, SELFPAY ==
--- NOTE | ~2024-10-31 | XR_ITS ---
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 RESULT: Lines, tubes, and devices: None. Lungs and pleura: Clear. Cardiomediastinal silhouette: Stable. Other: No acute osseous or upper abdominal finding. IMPRESSION: No acute cardiopulmonary process. Reviewed, dictated and finalized at location K. HMALLOW MAKER
[2024-10-31 16:41] VITALS: BP 156/87; PULSE 94; RESP 16; TEMP 36.6; O2SAT 100
--- NOTE | 2024-10-31 16:45 | ED.RECABL ---
HPI - Recheck/Abnormal Lab/Rx General Chief Complaint: Recheck/Abnormal Lab/Rx Stated Complaint: sinus infection Time Seen by Provider: 10/31/24 16:45 Source: patient Mode of arrival: ambulatory Limitations: no limitations History of Present Illness HPI narrative: Patient is a 54-year-old male who presents the ED with report of URI. Patient reports he has had sinus pressure and congestion for the last 2 weeks. Has been around sick contacts. Recently began having chills. Denies known fever. Denies significant cough. Denies shortness of breath. Patient also reports he was recently seen in the ED here for alcohol withdrawal. Was given a prescription for Librium. States he is no longer having any withdrawal symptoms, but has still continued to take the Librium. States he has had 4 doses past when the withdrawal symptoms have ended. He has not had a drink since Tuesday when he was seen in the ED here. He does not plan to continue to drink. Denies any shakiness, diaphoresis, lightheadedness, anxiety. Denies HI/SI. Did not take the medicines in any attempt to harm himself. Wants to make sure he is not causing harm by taking extra medication. Related Data Home Medications ?Medication ?Instructions ?Recorded ?Confirmed ?Last Taken ?Type amlodipine 10 mg tablet 10 mg PO DAILY 04/04/21 05/15/24 04/28/24 20:00 History rosuvastatin 5 mg tablet 5 mg PO DAILY 05/29/23 05/15/24 04/28/24 20:00 History omeprazole 20 mg capsule,delayed 20 mg PO DAILY PRN reflux 04/29/24 05/15/24 04/29/24 12:00 History release Allergies Allergy/AdvReac Type Severity Reaction Status Date / Time No Known Allergies Allergy Verified 10/28/24 18:03 Review of Systems Review of Systems: All systems reviewed & are unremarkable except as noted in HPI. All systems reviewed & are unremarkable except as noted in HPI and below PMFSH Past Medical History Medical History Hyperlipidemia Gastroesophageal reflux disease Hypertension Alcohol abuse Sober since December 2023. Pancreatitis Surgical History Surgical History History of laparoscopic appendectomy History of esophagogastroduodenoscopy (EGD) Family History Family History Mother Family history non-contributory Social History Social History Social History: Surrogate medical decision maker: Tomas Hill, sibling. Code status: Full code. Years smoked: 15 Smoking status: Current every day smoker Tobacco type: cigarettes Second hand tobacco smoke exposure: Yes Additional smoking assessment comments: Smokes approximately 7 cigarettes a day. Alcohol intake: former Substance use: current Substance use type: marijuana Do You Feel Safe in your Home?: Yes Lack of Transportation: No Lack of Food: Never True Current Housing: I Have Housing Concerned About Future Housing: No Difficulty Paying Gas/Electric Bills: No Difficulty Paying for Meds: No Currently Unemployed: No Education: High School Diploma/GED Difficulty w/ Childcare or Family Care: No Living arrangements: with family Spiritual care concerns: No Exam Narrative: GENERAL: Well appearing, thin, non-toxic, in no acute distress. HEAD: Normocephalic, atraumatic. RESPIRATORY: Airway patent, respirations nonlabored. Clear to auscultation bilaterally, no rales, rhonchi, wheezing. No focal lung sounds. CARDIOVASCULAR: Regular rate and rhythm without murmurs, rubs, or gallops. MUSCULOSKELETAL: Moves all extremities. No gross deformities. SKIN: Warm, dry, normal color. NEURO: A&O X3. Speech clear. No tremulousness. PSYCHIATRIC: Appropriate mood and affect. Normal interaction. Course Vital Signs Vital signs: Vital Signs Temperature 97.9 F 10/31/24 16:41 Pulse Rate 94 10/31/24 16:41 Respiratory Rate 16 10/31/24 16:41 Blood Pressure 156/87 H 10/31/24 16:41 Pulse Oximetry 100 10/31/24 16:41 Oxygen Delivery Room Air 10/31/24 16:41 Temperature 97.9 F 10/31/24 16:41 Pulse Rate 94 10/31/24 16:41 Respiratory Rate 16 10/31/24 16:41 Blood Pressure 156/87 H 10/31/24 16:41 Pulse Oximetry 100 10/31/24 16:41 Oxygen Delivery Room Air 10/31/24 16:41 MDM - Recheck/Abnormal Lab/Rx MDM Narrative Medical decision making narrative: Patient presented to ED with 2 week history of URI symptoms, sinus pressure. Also reporting concern over taking Librium. Vital signs are stable upon arrival. Patient in no acute distress. He is not exhibiting any signs of alcohol withdrawal upon my evaluation. He has not had a drink since Tuesday and does not plan to continue to drink. Provided reassurance against adverse reactions to Librium. He really does not complain of any symptoms that would be consistent with adverse reaction. Provided reassurance and discussed proper use of medication. Viral swabs negative Chest x-ray clear Will start patient on Augmentin for sinus infection given prolonged nature of symptoms. Given return precautions. Recommended follow-up with PCP. Patient agrees with plan. Discharged in stable condition. Medical Records Attestation: I reviewed the patient's medical records. Lab Data Attestation: I reviewed the patient's lab results. Labs: Lab Results 10/31/24 Range/Units 17:40 Influenza A (RT-PCR) Negative (Negative) Influenza B (RT-PCR) Negative (Negative) RSV (RT-PCR) Negative (Negative) SARS-CoV-2 RNA (RT-PCR) Negative (Negative) Imaging Data Attestation: I personally reviewed and interpreted this imaging study as follows: Radiologist's impression: ITS Impressions Chest X-Ray 10/31/24 17:09 IMPRESSION: No acute cardiopulmonary process. Discharge Plan Discharge Clinical Impression: Sinus infection Qualifiers: Sinusitis location: unspecified location Chronicity: acute Recurrence: non-recurrent Qualified Code(s): J01.90 - Acute sinusitis, unspecified Upper respiratory infection Qualifiers: URI type: unspecified URI Qualified Code(s): J06.9 - Acute upper respiratory infection, unspecified Patient Disposition: Home, Self-Care Condition: Stable Instructions: Antibiotic Form, Sinusitis (ED), Rhinosinusitis (ED) Additional Instructions: Take antibiotics as prescribed for sinus infection. Stay well-hydrated at home. Utilize Tylenol and Ibuprofen for discomfort and/or fevers. Recommend [id number] cough and cold medicines for symptom relief, Delsym, Mucinex, DayQuil, NyQuil, Sudafed, Robitussin, TheraFlu. Follow with primary care doctor for further evaluation. Return to the ED if you experience chest pain, difficulty breathing, unable to keep down food or drink, severe pain, or any other symptoms of concern. Continue to avoid alcohol use. Stop taking librium unless you experience recurrent withdrawal symptoms. Patient Language: Armenian Prescriptions: New amoxicillin-pot clavulanate 875-125 mg tablet 1 tablet PO Q12H 7 Days Qty: 14 0RF chlordiazepoxide HCl 25 mg capsule 25 mg PO TID PRN (Reason: alcohol withdrawal) Qty: 10 0RF No Action rosuvastatin 5 mg tablet 5 mg PO DAILY amlodipine 10 mg tablet 10 mg PO DAILY omeprazole 20 mg capsule,delayed release(DR/EC) 20 mg PO DAILY PRN (Reason: reflux) chlordiazepoxide HCl 25 mg capsule 25 mg PO QID PRN (Reason: alcohol withdrawal) Qty: 15 0RF Rx Instructions: Day 1: 50mg q6h Day 2: 25mg q6h Day 3: 25mg q12h Day 4: 25mg at night (Rx fifteen 25mg tabs) omeprazole 20 mg capsule,delayed release(DR/EC) 20 mg PO DAILY Qty: 30 0RF omeprazole 20 mg capsule,delayed release(DR/EC) 20 mg PO DAILY Qty: 20 0RF chlordiazepoxide HCl 25 mg capsule 25 mg PO Q2H PRN (Reason: alcohol withdrawal) Qty: 20 0RF Rx Instructions: Day 1: Oral: 50 mg every 6 hours. Day 2: Oral: 50 mg every 12 hours. Day 3: Oral: 50 mg every 24 hours. Day 4: Oral: 25 mg every 24 hours, then discontinue chlordiazepoxide May take 25 mg PRN q2h for breakthrough symptoms. Follow-up/Referrals: Ranjith,Clare Richard MD [Primary Care Provider] - Time of Disposition: 18:34
[2024-10-31 18:19] LABS: Influenza A QL RT-PCR Negative (Negative); Influenza B QL RT-PCR Negative (Negative); RSV RNA, RT-PCR Negative (Negative); SARS-CoV-2 RNA PCR Negative (Negative)
--- OUTSIDE RECORDS SUMMARY | 2024-11-07 14:17 | XMS_ITS | Encounter Summary ---
Author Organization [facility] Address [address] [place] [address] Care Team Providers Care Clam Digger Name Role Phone Clare Kasper MD Primary [...] on filedocumented in this encounter Care Teams Clam Digger Relationship Specialty Start Date End Date Clare Kasper MD [address] [address] PCP - General Family Practice 07/11/24 documented as of this encounter
--- OUTSIDE RECORDS SUMMARY | 2024-11-07 14:17 | XMS_ITS | Encounter Summary ---
Author Organization [facility] Address [address] [place] [address] Care Team Providers Care Radiologic Technology Teacher Name Role Phone Clare Kasper MD Primary [...] on filedocumented in this encounter Care Teams Radiologic Technology Teacher Relationship Specialty Start Date End Date Clrae Kasper MD [address] [address] PCP - General Family Practice 07/11/24 documented as of this encounter
--- OUTSIDE RECORDS SUMMARY | 2024-11-07 14:17 | XMS_ITS | Encounter Summary ---
Author Organization [facility] Address [address] [place] [address] Care Team Providers Care Lime Vat Tender Name Role Phone Unavailable Primary Care Provider Unavailabl e Encounter Details Date Type Department Care Team (Late st Contact Info) Description 01/12/2022 Lab Requisition [facility] Community Testing [facility] [address] [place] [address] Beny Osborn MD [address] [place] [address] [place] [address] Social History Tobacco Use Types Packs/Day Years Used Date Smoking Tobacco: Never Assessed Sex and Gender Information Value Date Recorded Sex Assigned at Not on file Legal Sex Male 12:51 PM SUPERVISOR COMPOSING ROOM Gender Identity Not on file Sexual Orientation Not on file documented as of this encounter Plan of Treatment Not on file documented as of this encounter Procedures Procedure Name Priority Date/Time Associated Diagnosis Comments SARS-COV-2 PCR [facility] ONLY Routine 01/12/2022 10:59 AM CDT documented in this encounter Visit Diagnoses Not on filedocumented in this encounter
--- OUTSIDE RECORDS SUMMARY | 2024-11-07 14:17 | XMS_ITS ---
Author Organization [facility] Address [address] [facility] [address] [place], [place] [address] Care Team Providers Care Editor Publications Name Role Phone Glen Schafer Unavailable [phone] Migration, Provider Unavailable Unavailable REASON FOR VISIT Multum To Medispan Conversion Encounter Medications Medication SIG (Take, Route, Fr equency, Duration) Notes Start Date End Date Status Lisinopril 20 MG 1 tab(s) orally once a day Active Omeprazole 20 MG 1 cap(s) orally once a day Active Encounters Encounter Location Date Provider Diagnosis [facility] [address] [facility] [address] [place], [place] [phone] 10/13/2024 Provider Migration Plan Of Treatment No Information Progress Notes * Yariel HILLDOB:[birth year] (54 yo M)Acc No.[id number]:10/13/2024 Patient:?Yariel HILL Provider:?Provider Migration :1970???Age:54 Y???Sex:Male Derrell e:10/13/2024 Address:[address] [place], [place] [id number] Subjective: * Chief Complaints: * ???1. Multum To Medispan Con version Encounter. * Medical History:? * Medications:?Taking Lisinopr il 20 MG Tablet 1 tab(s) orally once a day , Taking Omeprazole 20 MG Capsule Delayed Release 1 cap(s) orally once a day Objective: * Vitals:? * Physical Examination:? Assessment: Plan: * Treatment: * * Electronic signature of Prov ider Migration on 11/07/2024 at 02:17 PM RESEARCH ATTORNEY Sign off status: Pending * Provider:?Provider Migration Date:?10/13 Generated for Nazario arrington/Harvey/Dairo on:?11/07/2024 02:17 PM RESEARCH ATTORNEY
--- OUTSIDE RECORDS SUMMARY | 2024-11-07 14:17 | XMS_ITS | Encounter Summary ---
Author Organization [facility] Address [address] [place] [address] Care Team Providers Care Invasive Physician Name Role Phone Clare Kasper MD Primary Care Pro vider Reason for Visit * Reason Comments Labs Only Encounter Details Date Type Department Care Team ([facility] Contact Info) Description 07/11/2024 10:20 AM CDT [facility] [place] [address] [phone] Screening for condition (Primary Dx) Social History [...] [facility] Comment: Test Performed at: [email or web address] [address] [place], [place] ??[phone] Yadira Coleman MD Blood 07/11/2024 10:2 8 AM CDT 07/12/2024 12:13 PM CDT Magdalena JOHNSON CHEMISTRY OR DERABLES [facility] [phone] [facility] [address] [place] [address] * LIPID PANEL (07/11/2024 10:28 AM CDT) [...] LDL-C. Roe SS et al. DOLLY. 2013;310(19): 2872-9965 (http://education.InSpa/faq/PPT762) CHOL/HDL RATIO 2.4 <5.0 (calc) [facility] NON-HDL CHOLESTEROL 81 <130 mg/dL (calc) [facility] Comment: For patients with diabetes plus 1 major ASCVD risk factor, treating to a non-HDL-C goal of <100 mg/dL (LDL-C of <70 mg/dL) is considered a therapeutic option. Test Performed at: [facility] [address] [place], [place] ??[phone] Yadira Coleman MD Blood 07/11/2024 10:2 8 AM CDT 07/12/2024 12:13 PM CDT Magdalena JOHNSON CHEMISTRY OR DERABLES [facility] [phone] [email or web address] [address] [place] [address] * (ABNORMAL) COMPREHENSIVE METABOLIC PANEL (07/11/2024 10:28 AM CDT) GLUCOSE 117(H) 65 - 99 mg/dL [facility] Comment: ? Fasting reference interval For [...] [facility] Comment: Test Performed at: [facility] ??[phone] Yadira Coleman MD Blood 07/11/2024 10:2 8 AM CDT 07/12/2024 12:13 PM CDT Magdalena JOHNSON CHEMISTRY OR DERABLES [facility] [phone] [email or web address] [address] * (ABNORMAL) CBC WITH DIFFERENTIAL (07/11/2024 10:28 [...] [facility] Comment: Test Performed at: [email or web address] [address] [place], [place] ??[phone] Yadira Coleman MD Blood 07/11/2024 10:2 8 AM CDT 07/12/2024 12:13 PM CDT Magdalena JOHNSON HEMATOLOGY O RDERABLES [facility] [phone] [facility] [address] [place] [address] documented in this encounter Visit Diagnoses Diagnosis Screening for condition- Primary Screening for unspecified condition documented in this encounter Care Teams Invasive Physician Relationship Specialty Start Date End Date Clare Kasper MD [address] [place] [phone] PCP - General Family Practice 07/11/24 documented as of this encounter
--- OUTSIDE RECORDS SUMMARY | 2024-11-07 14:17 | XMS_ITS | Encounter Summary ---
Author Organization [facility] Address [address] [place] [address] Care Team Providers Care Dyeing Machine Back Tender Name Role Phone Unavailable Primary Care Provider Unavailabl e Encounter Details Date Type Department Care Team (Late st Contact Info) Description 12/17/2020 Lab Requisition [facility] Mobile Testing [facility] [address] [place] [address] Beny Osborn MD [address] [place] [address] [place] [address] Social History Tobacco Use Types Packs/Day Years Used Date Smoking Tobacco: Never Assessed Sex and Gender Information Value Date Recorded Sex Assigned at Not on file Legal Sex Male 12:51 PM INFANTRY OFFICER Gender Identity Not on file Sexual Orientation Not on file documented as of this encounter Plan of Treatment Not on file documented as of this encounter Procedures Procedure Name Priority Date/Time Associated Diagnosis Comments SARS-COV-2 PCR [facility] ONLY Routine 12/17/2020 12:54 PM INFANTRY OFFICER documented in this encounter Visit Diagnoses Not on filedocumented in this encounter
--- OUTSIDE RECORDS SUMMARY | 2024-11-07 14:17 | XMS_ITS | Encounter Summary ---
Author Organization [facility] Address [address] [place] [address] Care Team Providers Care Histology Manager Name Role Phone Clare Kasper MD Primary Care Pro vider Reason for Visit * Reason Onset Date Comments Results 07/17/2024 Encounter Details Date Type Department Care Team ([facility] st Contact Info) Description 07/17/[address] [facility] [place] [address] Magdalena Chua ANP [address] [place] [address] Results Social History Tobacco Use [...] on filedocumented in this encounter Care Teams Histology Manager Relationship Specialty Start Date End Date Clare Kasper MD [address] [place] [phone] PCP - General Family Practice 07/11/24 documented as of this encounter
--- OUTSIDE RECORDS SUMMARY | 2024-11-07 14:17 | XMS_ITS | Patient Health Record ---
Author Organization [facility] Address [address] [facility] [address] [place], [place] [address] Care Team Providers Care Head Of Product Name Role Phone Glen Schafer Unavailable [phone] Migration, Provider Unavailable Unavailable Reason For Referral [...] Status W/U Status Risk Notes Problem Tinnitus (58652217) TINNITUS (388.30) Active confirmed Problem Tobacco use (427480551) TOBACCO USE DISORDER (305.1) Active confirmed Encounters Encounter Location Date Provider Diagnosis [facility] [address] [facility] [address] [place], [place] [phone] 10/13/2024 Provider Migration Plan Of Treatment No Information Insurance Providers Payer Name Payer Address Payer Phone Subscriber Number Group Number Insured Name Patient Relationship to Insured Coverage Start Date Coverage End Date ES[employer] [id number] [id number] Yariel Hill Self - patient is the insured Medical (General) History Medical History History ICD Code Pertinent Medical History: Ear problems, High blood pressure, Surgical History Surgery Date(Month/Year) carpel tunnel 2008
--- OUTSIDE RECORDS SUMMARY | 2024-11-07 14:17 | XMS_ITS | Clinical Summary ---
Author Organization [facility]] [facility] Address [address] [place] [address] Care Team Providers Care Crane Service Technician Name Role Phone Clare Kasper MD [...] ZOSTER VACCINE Completed 06/10/2023, 04/04/2023 Care Teams Crane Service Technician Relationship Specialty Start Date End Date Clare Kasper MD [address] [place] [address] PCP - General Family Practice 07/11/24
--- OUTSIDE RECORDS SUMMARY | 2024-11-07 14:17 | XMS_ITS | Encounter Summary ---
Author Organization [facility] Address [address] [place] [address] Care Team Providers Care Online Retailer Name Role Phone Clare Kasper MD Primary [...] on filedocumented in this encounter Care Teams Online Retailer Relationship Specialty Start Date End Date Clare Kasper MD [address] [address] PCP - General Family Practice 07/11/24 documented as of this encounter
--- OUTSIDE RECORDS SUMMARY | 2024-11-07 14:17 | XMS_ITS | Encounter Summary ---
Author Organization [facility] Address [address] [place] [address] Care Team Providers Care Bridge Design Engineer Name Role Phone Unavailable Primary Care Provider Unavailabl e Encounter Details Date Type Department Care Team (Late st Contact Info) Description 12/17/2020 1:00 PM PROFESSOR OF VOICE Rapid Evaluation [place] [facility] Mobile Testing [facility] [address] [place] [address] Social History Tobacco Use Types Packs/Day Years Used Date Smoking Tobacco: Never Assessed Sex and Gender Information Value Date Recorded Sex Assigned at Not on file Legal Sex Male 12:51 PM PROFESSOR OF VOICE Gender Identity Not on file Sexual Orientation Not on file documented as of this encounter Plan of Treatment Not on file documented as of this encounter Visit Diagnoses Not on filedocumented in this encounter
--- OUTSIDE RECORDS SUMMARY | 2024-11-07 14:17 | XMS_ITS | Encounter Summary ---
Author Organization [facility] Address [address] [place] [address] Care Team Providers Care Oracle Reports Developer Name Role Phone Clare Kasper MD [...] on filedocumented in this encounter Care Teams Oracle Reports Developer Relationship Specialty Start Date End Date Clare Kasper MD [address] [address] PCP - General Family Practice 07/11/24 documented as of this encounter
--- OUTSIDE RECORDS SUMMARY | 2024-11-07 14:17 | XMS_ITS | Encounter Summary ---
Author Organization [facility] Address [address] [place] [address] Care Team Providers Care Biochemistry Teacher Name Role Phone Unavailable Primary Care Provider Unavailabl e Encounter Details Date Type Department Care Team (Late st Contact Info) Description 01/12/2022 11:00 AM CDT Rapid Evaluation [place] [facility] Community Testing [address] [address] Social History Tobacco Use Types Packs/Day Years Used Date Smoking Tobacco: Never Assessed Sex and Gender Information Value Date Recorded Sex Assigned at Not on file Legal Sex Male 12:51 PM DIRECTOR HR COMMUNICATIONS Gender Identity Not on file Sexual Orientation Not on file documented as of this encounter Plan of Treatment Not on file documented as of this encounter Visit Diagnoses Not on filedocumented in this encounter
--- OUTSIDE RECORDS SUMMARY | 2024-11-07 14:17 | XMS_ITS | Clinical Summary ---
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
--- OUTSIDE RECORDS SUMMARY | 2024-11-07 14:18 | XMS_ITS | Encounter Summary ---
Author Organization [facility] Address [address] [place] [address] Care Team Providers Care Sales Exhibitor Name Role Phone Clare Kasper MD Primary Care Pro vider Encounter Details Date Type Department Care Team (Late Contact Info) Description 03/30/2024 11:[address] 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 Gender Identity Not on file [...] - 300 Units/L Comment:Testing performed by : [address] [address] Blood 03/30/2024 11:1 0 AM CDT 03/30/2024 2:08 PM CDT Clare Kasper MD LAB BLOOD ORDERAB LES Final Result Performing Organization Address [facility] Co de Phone Number CRISTY [address] [facility] Department [place] [address] * Urinalysis, microscopic only (03/30/2024 11:10 AM CDT) WBC, ur 0-5 0 - 5 /HPF Comment:Testing performed by : [address] [address] RBC, ur 0-2 0 - 2 /HPF CRISTY Comment:Testing performed by : [address] [address] Epithelial cells, squamous, ur 1-5 0 - 5 /HPF CRISTY Comment:Testing performed by : [address] [address] Culture Reflex Comment Reflex conditions for urine culture (WBC >10) not met. CRISTY Comment:Testing performed by : [address] [address] Urine, clean voided 03/30/2024 11:10 AM CDT 03/30/2024 11:39 AM CDT Clare Kasper MD LAB URINE ORDERAB LES Final Result Performing Organization Address [facility]/State/ZIP Co de Phone Number CRISTY [place] [address] [facility] Department [place] [address] * (ABNORMAL) Urinalysis reflex to microscopic and culture Urine, clean voided (03/30/2024 11:10 AM CDT) Color, ur Yellow Yellow Comment:Testing performed by : [address] [address] Clarity, ur Clear Clear CRISTY Comment:Testing performed by : [address] [address] Specific gravity, ur 1.018 1.003 - 1.030 CRISTY Comment:Testing performed by : [address] [address] pH, urine 5.5 CRISTY Comment: Interpretive Data ? Urine pH is affected by diet, medications, systemic acid-base disturbances, and renal tubular function. ??pH may affect urinary stone formation. ??For example, urine pH below 6.0 may help reduce the tendency for calcium phosphate stones and pH greater than 6.0 may reduce the tendency for uric acid stone formation. Source: [facility] Press[employer] Current Interpretive Data was last revised on 2017 Testing performed by: [address] [address] Protein, ur ql Negative Negative CRISTY Comment:Testing performed by : [address] [address] Glucose, ur ql Negative Negative CRISTY Comment:Testing performed by : [address] [address] Ketones, ur Negative Negative CRISTY Comment:Testing performed by : [address] [address] Bilirubin, ur Negative Negative CRISTY Comment:Testing performed by : [address] [address] Blood, ur 2+(A) Negative CRISTY [place] Comment:Testing performed by : [address] [address] Urobilinogen, ur <2.0 <2.0 mg/dL CRISTY [place] Comment:Testing performed by : [address] [place] [address] Nitrite, ur Negative Negative CRISTY Comment:Testing performed by : [address] [address] Leukocyte esterase, ur Negative Negative CRISTY Comment:Testing performed by : [facility], [address] [place] [address]., [address] UA reflex comment Reflex to microscopic UA will be performed. CRISTY Comment:Testing performed by : [address] [address] Urine, clean voided 03/30/2024 11:10 AM CDT 03/30/2024 11:39 AM CDT us Clare Kasper MD LAB MICROBIOLOGY - GENERAL ORDERABLES Final Result Performing Organization Address City/State/[facility] Co de Phone Number CRISTY [address] [facility] Department [place] [address] * eGFR (03/30/2024 11:09 AM [...] was last reviewed 2021. Testing performed by: [address] [address] Blood 03/30/2024 11:0 9 AM CDT 03/30/2024 1:29 PM CDT us Clare Kasper MD LAB BLOOD ORDERAB LES Final Result [facility] [address] [facility] Department [place] [address] * (ABNORMAL) Comprehensive metabolic panel (03/30/2024 11:09 AM CDT) Sodium 139 135 - 145 mmol/L Comment:Testing performed by : [address] [address] Potassium, pl 4.5 3.3 - 4.9 mmol/L CRISTY Comment:Testing performed by : [address] [address] Chloride 102 97 - 110 mmol/L CRISTY Comment:Testing performed by : [address] [address] CO2 24 22 - 32 mmol/L CRISTY Comment:Testing performed by : [address] [address] Anion gap 13 2 - 15 mmol/L CRISTY Comment:Testing performed by : [address] [address] BUN 12 6 - 25 mg/dL CRISTY Comment:Testing performed by : [address] [address] Creatinine 1.00 0.80 - 1.30 mg/dL CRISTY Comment:Testing performed by : [address] [address] Glucose 144 70 - 199 mg/dL CRISTY [...] was last revised 2022. Testing performed by: [address] [address] Calcium 9.7 8.5 - 10.3 mg/dL CRISTY Comment:Testing performed by : [address] [address] Bilirubin, total 0.3 0.1 - 1.2 mg/dL CRISTY Comment:Testing performed by : [address] [address] Protein, pl 7.4 6.5 - 8.5 g/dL CRISTY Comment:Testing performed by : [address] [address] Albumin 4.4 3.5 - 5.0 g/dL CRISTY Comment:Testing performed by : [address] [address] Alk phos 69 40 - 130 Units/L CRISTY Comment:Testing performed by : [address] [address] ALT <5(L) 7 - 55 Units/L CRISTY Comment:Testing performed by : [address] [address] AST 20 10 - 50 Units/L CRISTY Comment:Testing performed by : [address] [address] Blood 03/30/2024 11:0 9 AM CDT 03/30/2024 1:29 PM CDT us Clare Kasper MD LAB BLOOD ORDERAB LES Final Result [facility] [address] [facility] Department [place] [address] documented in this encounter Visit Diagnoses Diagnosis Hematuria, unspecified type documented in this encounter Care Teams Sales Exhibitor Relationship Specialty Start Date End Date Clare Kasper MD PCP - General Family Medicine 07/27/22 documented as of this encounter
--- OUTSIDE RECORDS SUMMARY | 2024-11-07 14:18 | XMS_ITS | Encounter Summary ---
Author Organization [facility] Address [address] [place] [address] Care Team Providers Care Environmental Services Associate Name Role Phone Clare Kasper MD Primary Care Pro vider Reason for Referral * Procedure (Routine) - Pending Review Specialty Diagnoses / Procedures Referred By Litzy [email or web address] Referred To Contact Diagnoses Abscess of face Procedures Incision and Drainage Lauren Xiong NP Phone: tel: fax: [facility] Referral ID Status Reason Start Date Expiration Date V isits Requested Visits Authorized [id number] Pending Review 12/08/2023 01/06/2025 1 1 ER HAND Reason for Visit * Reason Comments Stye Pt states he has a s suze or abscess on right side of face near right eye. Pt states may be a reaction to different soap. Pt states area near eye is painful. 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 Gender Identity Not on file Sexual Orientation Not on file documented as of this encounter Last Filed Vital Signs Vital Sign Reading Time Taken Comments Blood Pressure 130/68 12/08/2023 6:09 PM BENDER HAND Pulse 79 12/08/2023 6:09 PM BENDER HAND Temperature 37.1 ??C (98.8 ??F) 12/08/2023 6:09 PM CS T Respiratory Rate 18 12/08/2023 6:09 PM BENDER HAND Oxygen Saturation 99% 12/08/2023 6:09 PM BENDER HAND Inhaled Oxygen Concentration - - Weight 53.5 kg (118 lb) 12/08/2023 6:09 PM BENDER HAND Height 170.2 cm (5' 7 ) 12/08/2023 6:09 PM BENDER HAND Body Mass Index 18.48 12/08/2023 6:09 PM BENDER HAND documented in this encounter Ordered Prescriptions Prescription [...] the right side of face on the religious area next to the eye. Patient has [...] exam Anemia Allergic rhinitis Alcohol-induced insomnia (CMS/HCC) ([facility]) Hyperlipidemia Tobacco use Primary insomnia Past Medical [...] Abscess to right side of face at religious/eye Neurological: Mental Status: He is alert and [...] to follow up by returning to the [facility] for re-evaluation, making an appointment with his primary care provider, orpresenting to the emergency department for further evaluation. The patient's questions were answered and he agrees to the discussed treatment and plan. Laurne Xiong NP ER HAND documented in this encounter Plan of Treatment [...] Procedure Name Priority Date/Time Associated Diagnosis Comments [place] INCISION & DRAINAGE ABSCESS SIMPLE/SINGLE Routine 12/08/2023 6:00 PM BENDER HAND Abscess of face documented in this encounter Results * (ABNORMAL) Aerobic culture and gram stain Abscess Face (12/08/2023 6:30 PM BENDER HAND) Direct Specimen Exam Stain: Few polymorphonuclear leukocytes seen. No organisms seen. [facility] Report Final Report: Few Staphylococcus lugdunensis Rare Mixed microorganisms. (.) [facility] Organism STAPHYLOCOCCUS LUGDUNENSIS [facility] Organism MIXED MICROORGANISMS. [facility] Abscess (Face) 12/08/2023 6: 30 PM BENDER HAND 12/08/2023 9:20 PM BENDER HAND N[facility]ative [facility] - 12/14/2023 2:30 PM BENDER HAND Specimen received on an ESwab. Testing performed by [facility] ([phone]) Specimens submitted from normally sterile body sites [...] JORDYN SANDERS Final Result [facility]ST[facility] Department [place] [address] * [place] INCISION & DRAINAGE ABSCESS SIMPLE/SINGLE (12/08/2023 6:00 PM BENDER HAND) Narrative Lauren Xiong NP - 12/08/2023 6:00 PM BENDER HAND Lauren Xiong NP ? 12/08/2023 ??6:33 PM [...] 12/15/2023 added in this encounter Care Teams Environmental Services Associate Relationship Specialty Start Date End Date Clare Kasper MD PCP - General Family Medicine 07/27/22 documented as of this encounter
--- OUTSIDE RECORDS SUMMARY | 2024-11-07 14:18 | XMS_ITS | Encounter Summary ---
Author Organization [facility] Address [address] [place] [address] Care Team Providers Care Crystal Inspector Name Role Phone Clare Kasper MD Primary Care Pro vider Reason for Visit * Reason Onset Date Comments Medical Records Request 12/23/2023 Encounter Details Date Type Department Care Team ([facility] Contact Info) Description 12/23/2023 Telephone [facility] Primary Care at [address] [phone] Clare Kasper MD [address] [place] [phone] Medical Records Request Social History Tobacco [...] on file 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 Patient through Sling[employer] Date Needed: today if possible Delivery Method: [employer] Does message need to be routed? Yes-Action Needed RNEY documented in this encounter Plan of Treatment [...] on filedocumented in this encounter Care Teams Crystal Inspector Relationship Specialty Start Date End Date Clare Kasper MD PCP - General Family Medicine 07/27/22 documented as of this encounter
--- OUTSIDE RECORDS SUMMARY | 2024-11-07 14:18 | XMS_ITS | Encounter Summary ---
Author Organization [facility] Address [address] [place] [address] Phone Care Team Providers Care French Weaver Name Role Phone Clare Kasper MD Primary Care Pro vider Reason for Visit * Reason Comments Skin Exam Encounter Details Date Type Department Care Team (Late st Contact Info) Description 04/12/2024 1:45 PM CDT Office Visit [facility] [address] [facility] [address] [place] [phone] Thao Morales MD PhD [address] [address] Allergic contact dermatitis due to [...] on file 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
--- OUTSIDE RECORDS SUMMARY | 2024-11-07 14:18 | XMS_ITS | Encounter Summary ---
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 CRISTY GLOVER Comment:Testing performed by : [address] [address] Urine, clean voided 03/27/2024 5:41 PM CDT 03/27/2024 6:54 PM CDT us Clare Kasper MD LAB URINE ORDERAB LES Final Result CRISTY GLOVER [address] [facility] [place] [address] * Differential, auto (03/27/2024 5:41 PM CDT) Neutrophil abs 3.5 1.5 - 6.5 K/cumm Comment:Testing performed by : [address] [address] Imm gran abs 0.0 0.0 - 0.1 K/cumm [facility] Comment:Testing performed by : [address] [address] Lymphocyte abs 3.0 0.8 - 3.3 K/cumm [facility] Comment:Testing performed by : [address] [address] Monocyte abs 0.4 0.2 - 0.8 K/cumm [facility] Comment:Testing performed by : [address] [address] Eosinophil abs 0.3 0.0 - 0.5 K/cumm [facility] Comment:Testing performed by : [address] [address] Basophil abs 0.1 0.0 - 0.1 K/cumm [facility] Comment:Testing performed by : [address] [address] Neutrophil pct 47.6 % [facility] Comment: Interpretive Data Percent cell count reference ranges are not reported, since discordance with absolute values may lead to misinterpretation of CBC data. Current Interpretive Data was last revised on 2018. Testing performed by: [address] [address] Imm gran pct 0.1 % [facility] Comment: Interpretive Data Percent cell count reference ranges are not reported, since discordance with absolute values may lead to misinterpretation of CBC data. Current Interpretive Data was last revised on 2018. Testing performed by: [address] [address] Lymphocyte pct 41.2 % CERNER Comment: Interpretive Data Percent cell count reference ranges are not reported, since discordance with absolute values may lead to misinterpretation of CBC data. Current Interpretive Data was last revised on 2018. Testing performed by: [address] [place] [address] Monocyte pct 6.0 % CRISTY Comment: Interpretive Data Percent cell count reference ranges are not reported, since discordance with absolute values may lead to misinterpretation of CBC data. Current Interpretive Data was last revised on 2018. Testing performed by: [address] [address] Eosinophil pct 4.1 % CRISTY Comment: Interpretive Data Percent cell count reference ranges are not reported, since discordance with absolute values may lead to misinterpretation of CBC data. Current Interpretive Data was last revised on 2018. Testing performed by: [address] [address] Basophil pct 1.0 % CRISTY Comment: Interpretive Data Percent cell count reference ranges are not reported, since discordance with absolute values may lead to misinterpretation of CBC data. Current Interpretive Data was last revised on 2018. Testing performed by: [address] [address] Blood 03/27/2024 5:41 PM CDT 03/27/2024 6:00 PM CDT us Clare Kasper MD LAB BLOOD ORDERAB LES Final Result CRISTY [address] [facility] Department of Laboratories [place], [place] [id number] * (ABNORMAL) Urinalysis reflex to microscopic and culture Urine, clean voided (03/27/2024 5:41 PM CDT) Color, ur Yellow Yellow Comment:Testing performed by : [address] [address] Clarity, ur Clear Clear CRISTY GLOVER Comment:Testing performed by : [address] [address] Specific gravity, ur 1.010 1.003 - 1.030 CRISTY GLOVER Comment:Testing performed by : [address] [address] pH, urine 5.5 CRISTY Comment: Interpretive Data ? Urine pH is affected by diet, medications, systemic acid-base disturbances, and renal tubular function. ??pH may affect urinary stone formation. ??For example, urine pH below 6.0 may help reduce the tendency for calcium phosphate stones and pH greater than 6.0 may reduce the tendency for uric acid stone formation. Source: [facility] Current Interpretive Data was last revised on 2017 Testing performed by: [address] [address] Protein, ur ql Negative Negative CRISTY Comment:Testing performed by : [address], [place]., [address] Glucose, ur ql Negative Negative CRISTY Comment:Testing performed by : [address], [place]., [address] Ketones, ur Negative Negative CRISTY Comment:Testing performed by : [address], [place]., [address] Bilirubin, ur Negative Negative CRISTY Comment:Testing performed by : [address], [place]., [address] Blood, ur 1+(A) Negative CRISTY Comment:Testing performed by : [address], [place]., [address] Urobilinogen, ur <2.0 <2.0 mg/dL CRISTY Comment:Testing performed by : [address], [place]., [address] Nitrite, ur Negative Negative CRISTY Comment:Testing performed by : [address] [address] Leukocyte esterase, ur Negative Negative CRISTY Comment:Testing performed by : [address], [place]., [address] UA reflex comment Reflex to microscopic UA will be performed. CRISTY Comment:Testing performed by : [address] [address] Urine, clean voided 03/27/2024 5:41 PM CDT 03/27/2024 6:54 PM CDT Clare Kasper MD LAB MICROBIOLOGY - GENERAL ORDERABLES Final Result CRISTY [address] [facility] Department [place] [address] * (ABNORMAL) CBC with auto differential (03/27/2024 5:41 PM CDT) WBC 7.3 3.8 - 9.9 K/cumm Comment:Testing performed by : [address] [address] Hgb 13.6 13.0 - 17.5 g/dL CRISTY Comment:Testing performed by : [address] [address] Hct 38.7(L) 38.9 - 50.3 % CRISTY Comment:Testing performed by : [address] [address] Plt 191 150 - 400 K/cumm CRISTY Comment:Testing performed by : [address] [address] MPV 9.2 9.1 - 12.3 fL CRISTY Comment:Testing performed by : [address] [address] RBC 4.24(L) 4.30 - 5.80 M/cumm CRISTY Comment:Testing performed by : [address] [address] MCV 91.3 81.3 - 96.4 fL CRISTY Comment:Testing performed by : [address] [address] MCH 32.1 27.1 - 33.3 pg CRISTY Comment:Testing performed by : [address] [address] MCHC 35.1 32.3 - 35.7 g/dL CRISTY Comment:Testing performed by : [address] [address] RDW CV 12.1 11.1 - 14.9 % CRISTY Comment:Testing performed by : [address] [address] RDW SD 40.1 35.7 - 48.1 fL CRISTY GLOVER Comment:Testing performed by : [facility], [address] [place] [address]., [address] NRBC abs 0.00 0.00 - 0.01 K/cumm CRISTY GLOVER Comment:Testing performed by : [facility], [address] [place] [address]., [address] Blood 03/27/2024 5:41 PM CDT 03/27/2024 6:00 PM CDT Clare Kasper MD LAB BLOOD ORDERAB LES Final Result Performing Organization Address [facility] de Phone Number CRISTY [address] [place] [address] * HIV 1/2 Antibody plus p24 Antigen [...] GENERAL ORDERABLES Final Result Performing Organization Address [facility] de Phone Number [place] [phone] [facility] [place] [address] * Hepatitis panel, acute Blood (03/27/2024 5:41 [...] MICROBIOLOGY - GENERAL ORDERABLES Final Result CRISTY [address] [facility] Department [place] [address] * N. gonorrhoeae/C. trachomatis Amplification Urine (03/27/2024 5:41 PM CDT) Pathologist [facility] C. trachomatis Not Detected [facility] Comment:Testing performed by : [facility], [address] [facility] [place] [address] N. gonorrhoeae Not Detected CRISTY Comment: Interpretive Data This assay detects Chlamydia trachomatis and Neisseria gonorrhoeae by nucleic acid amplification testing (NAAT). This assay has been cleared by the [place] Food and Drug administration. The performance characteristics of this test have been verified by the [facility] Molecular Infectious Disease laboratory. The performance characteristics of this test have not been evaluated in individuals less than 14 years of age. Current Interpretive Data was last revised on 2023. Testing performed by: [facility], [address] [facility] [place]., [address] Urine (None) 03/27/2024 5:41 PM CDT 03/27/2024 5:41 PM CDT Result [facility] Clare Kasper MD LAB MICROBIOLOGY - GENERAL ORDERABLES Final Result Performing Organization Address [facility] de Phone Number CRISTY [address] [address] [facility] * RPR Blood (03/27/2024 5:41 PM CDT) Pathologist [facility] RPR Nonreactive Nonreactive Comment:Testing performed by : [facility], [address] [place] [address]., [address] Blood 03/27/2024 5:41 PM CDT 03/27/2024 9:05 PM CDT Clare Kasper MD LAB MICROBIOLOGY - GENERAL ORDERABLES Final Result Performing Organization Address [facility] de Phone Number MARCELO[address] [place] [address] * Trichomonas vaginalis PCR Urine (03/27/2024 5:41 PM CDT) Pathologist [facility] Trichomonas DNA Not Detected [facility] Comment: Interpretive Data This assay detects Trichomonas vaginalis by nucleic acid amplification testing (NAAT). This assay has been cleared by the [place] Food and Drug administration. The performance characteristics of this test have been verified by the [facility] Molecular Infectious Disease laboratory. The performance of this test has not been evaluated in individuals less than 18 years of age. ?? Current Interpretive Data was last revised on 2023. Testing performed by: [facility], [address] [place] [address]., [address] Urine 03/27/2024 5:41 PM CDT 03/27/2024 5:41 PM CDT Clare Kasper MD LAB MICROBIOLOGY - GENERAL ORDERABLES Final Result Performing Organization Address [facility]/State/ZIP Co de Phone Number CRISTY GLOVER [address] [facility] Department [place] [address] [facility] documented in this encounter Visit Diagnoses Diagnosis Routine screening for STI (sexually transmitted infection) Screening examination for venereal disease Leukocytosis, unspecified type Urinary frequency documented in this encounter Care Teams Milk Bottler Relationship Specialty Start Date End Date Clare Kasper MD PCP - General Family Medicine 07/27/22 documented as of this encounter
--- OUTSIDE RECORDS SUMMARY | 2024-11-07 14:18 | XMS_ITS | Encounter Summary ---
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 Gender Identity Not on file Sexual Orientation Not on file documented as of this encounter Last Filed Vital Signs Vital Sign Reading Time Taken Comments Blood Pressure 130/78 12/23/2023 2:33 PM SCIENTIFIC EDITOR Pulse 81 12/23/2023 2:33 PM SCIENTIFIC EDITOR Temperature 36.7 ??C (98.1 ??F) 12/23/2023 2:33 PM CS T Respiratory Rate 20 12/23/2023 2:33 PM SCIENTIFIC EDITOR Oxygen Saturation 97% 12/23/2023 2:33 PM SCIENTIFIC EDITOR Inhaled Oxygen Concentration - - Weight 52.1 kg (114 lb 12.8 oz) 12/23/2023 2:33 PM SCIENTIFIC EDITOR Height 170.2 cm (5' 7 ) 12/23/2023 2:33 PM SCIENTIFIC EDITOR Body Mass Index 17.98 12/23/2023 2:33 PM SCIENTIFIC EDITOR documented in this encounter Progress Notes * [...] Right corner of eye HPI [facility] and had I&D and given [...] approximately 5mm firm nodule on medial R uatsdin without erythema, fluctuance or drainage, warm and dry MSK/Neuro: symmetric limb movement Psych: alert and oriented to person/place/time, appropriate judgment and insight Clare Kasper MD NTIFIC EDITOR documented in this encounter Plan of Treatment [...] face documented in this encounter Care Teams Executive Director Relationship Specialty Start Date End Date Clare Kasper MD PCP - General Family Medicine 07/27/22 documented as of this encounter
--- OUTSIDE RECORDS SUMMARY | 2024-11-07 14:18 | XMS_ITS | Encounter Summary ---
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 Urine pH is affected by diet, medications, systemic acid-base disturbances, and renal tubular function. ??pH may affect urinary stone formation. ??For example, urine pH below 6.0 may help reduce the tendency for calcium phosphate stones and pH greater than 6.0 may reduce the tendency for uric acid stone formation. Source: [facility] [employer] Current Interpretive Data was last revised on 2017 Testing performed by: [address] [address] Protein, ur ql Negative Negative CRISTY Comment:Testing performed by : [address] [address] Glucose, ur ql Negative Negative CRISTY Comment:Testing performed by : [address] [address] Ketones, ur Negative Negative CRISTY Comment:Testing performed by : [address] [address] Bilirubin, ur Negative Negative CRISTY Comment:Testing performed by : [address] [address] Blood, ur 2+(A) Negative CRISTY GLOVER Comment:Testing performed by : [address] [address] Urobilinogen, ur <2.0 <2.0 mg/dL CRISTY GLOVER Comment:Testing performed by : [address] [address] Nitrite, ur Negative Negative CRISTY Comment:Testing performed by : [address], [place]., [address] Leukocyte esterase, ur Negative Negative CRISTY Comment:Testing performed by : [address] [address] UA reflex comment Reflex to microscopic UA will be performed. CRISTY Comment:Testing performed by : [address] [address] Urine, clean voided 03/30/2024 11:10 AM CDT 03/30/2024 11:39 AM CDT us Clare Kasper MD LAB MICROBIOLOGY - GENERAL ORDERABLES Final Result CRISTY [address] [facility] Department [place] [address] * (ABNORMAL) Comprehensive metabolic panel (03/30/2024 11:09 AM CDT) Sodium 139 135 - 145 mmol/L Comment:Testing performed by : [address] [address] Potassium, pl 4.5 3.3 - 4.9 mmol/L CRISTY Comment:Testing performed by : [address] [address] Chloride 102 97 - 110 mmol/L CRISTY Comment:Testing performed by : [address] [address] CO2 24 22 - 32 mmol/L CRISTY Comment:Testing performed by : [address] [address] Anion gap 13 2 - 15 mmol/L CRISTY Comment:Testing performed by : [address] [address] BUN 12 6 - 25 mg/dL CRISTY Comment:Testing performed by : [address] [address] Creatinine 1.00 0.80 - 1.30 mg/dL CRISTY Comment:Testing performed by : [address] [address] Glucose 144 70 - 199 mg/dL CRISTY [...] was last revised 2022. Testing performed by: [address] [address] Calcium 9.7 8.5 - 10.3 mg/dL CRISTY Comment:Testing performed by : [address] [address] Bilirubin, total 0.3 0.1 - 1.2 mg/dL CRISTY Comment:Testing performed by : [address] [address] Protein, pl 7.4 6.5 - 8.5 g/dL CRISTY Comment:Testing performed by : [address] [address] Albumin 4.4 3.5 - 5.0 g/dL CRISTY Comment:Testing performed by : [address] [address] Alk phos 69 40 - 130 Units/L CRISTY Comment:Testing performed by : [address] [address] ALT <5(L) 7 - 55 Units/L CRISTY Comment:Testing performed by : [address] [address] AST 20 10 - 50 Units/L CRISTY Comment:Testing performed by : [address] [address] Blood 03/30/2024 11:0 9 AM CDT 03/30/2024 1:29 PM CDT Clare Kasper MD LAB BLOOD ORDERAB LES Final Result CRISTY [address] [facility] Department [place] [address] documented in this encounter Visit Diagnoses Diagnosis Hematuria, unspecified type- Primary documented in this encounter Care Teams Human Performance Consultant Relationship Specialty Start Date End Date Clare Kasper MD PCP - General Family Medicine 07/27/22 documented as of this encounter
--- OUTSIDE RECORDS SUMMARY | 2024-11-07 14:18 | XMS_ITS | Encounter Summary ---
Author Organization [facility] Healthcare Address [address] [place] [address] Care Team Providers Care Automation Driver Name Role Phone Clare Kasper MD Primary Care Pro vider Reason for Visit * Reason Comments Hospital Follow Up Er f/u Encounter Details Date Type Department Care Team ([facility] st Contact Info) Description 10/12/2024 1:45 PM CIDER MAKER Office Visit [facility] Medical Group Primary Care at [address] [phone] Clare Kasper MD [address] [phone] Alcohol use disorder (Primary Dx); Acute [...] on file Legal Sex Male 2:37 PM CIDER MAKER Gender Identity Not on file Sexual Orientation Not on file documented as of this encounter Last Filed Vital Signs Vital Sign Reading Time Taken Comments Blood Pressure 137/88 10/12/2024 1:47 PM CIDER MAKER Pulse 100 10/12/2024 1:47 PM CIDER MAKER Temperature 36.8 ??C (98.2 ??F) 10/12/2024 1:47 PM CS T Respiratory Rate 18 10/12/2024 1:47 PM CIDER MAKER Oxygen Saturation 99% 10/12/2024 1:47 PM CIDER MAKER Inhaled Oxygen Concentration - - Weight 49.8 kg (109 lb 11.2 oz) 10/12/2024 1:47 PM CIDER MAKER Height 170.2 cm (5' 7 ) 10/12/2024 1:47 PM CIDER MAKER Body Mass Index 17.18 10/12/2024 1:47 PM CIDER MAKER documented in this encounter Progress Notes * [...] Er f/u HPI In the ED at [facility] on Tuesday for 4-5 hours for alcohol [...] appropriate judgment and insight Clare Kasper MD R MAKER documented in this encounter Miscellaneous Notes * Assessment & Plan Note - Clare Kasper MD - 10/12/2024 2:18 PM CSTAssociated Problem(s): Alcohol use disorder Recent relapse No evidence of withdrawal today Recommend cessation R MAKER documented in this encounter Plan of Treatment [...] documented as of this encounter Care Teams Automation Driver Relationship Specialty Start Date End Date Clare Kasper MD PCP - General Family Medicine 07/27/22 documented as of this encounter
--- OUTSIDE RECORDS SUMMARY | 2024-11-07 14:18 | XMS_ITS | Encounter Summary ---
Author Organization [facility] Healthcare Address [address] [place] [address] Care Team Providers Care Telesales Specialist Name Role Phone Clare Kasper MD Primary Care Pro vider Reason for Visit * Reason Comments Follow-up Urinary Frequency X1 week Shoulder Pain R shoulder pain Encounter Details Date Type Department Care Team (Latest Contact Info) Description 03/27/2024 4:30 PM CDT Office Visit [facility] Medical Group Primary Care at [address] [phone] Clare Kasper MD [address] [place] [id number] Urinary frequency (Primary Dx); Hematuria, unspecified [...] on file 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 ?? 2017 [employer] Information is for End User's use only and may not be sold, redistributed or otherwise used for commercial purposes. All illustrations and images included in CareNotes?? are the copyrighted property of [employer]. or Frequency. The above information is an group work program aide only. It is not intended as medical advice for individual conditions or treatments. Talk to your doctor, nurse or pharmacist before following any medical regimen to see if it is safe and effective for you. * Attachments The following attachments cannot be sent through Care Everywhere. * Neck Exercises (Faith Healer) (Lao) documented in this encounter Progress Notes * [...] strength on abduction, flexion, internal/external rotation and fitter's assistant, sensation intact throughout, negative neer's/zavala, apprehension, [...] (CK), total (03/30/2024 11:10 AM CDT) Pathologist [facility] CK 167 40 - 300 Units/L Comment:Testing performed by : [facility], [address] [place] [address]., [address] Blood 03/30/2024 11:1 0 AM CDT 03/30/2024 2:08 PM CDT Clare Kasper MD LAB BLOOD ORDERAB LES Final Result Performing Organization Address [facility] Co de Phone Number [place] [phone] [facility] [address] [place] [address] * HIV 1/2 Antibody plus p24 Antigen Blood (03/27/2024 5:41 PM CDT) [facility] HIV 1/2 ab + p24 ag Nonreactive Nonreactive Comment:Nonreactive for HIV- 1 antigen and HIV-1/HIV-2 antibodies. No laboratory evidence of HIV infection. If acute HIV infection is suspected, consider testing for HIV-1 RNA. Current interpretive data was last revised on 22. Blood 03/27/2024 5:41 PM CDT 03/27/2024 8:25 PM CDT Clare Kasper MD LAB MICROBIOLOGY - GENERAL ORDERABLES Final Result Performing Organization Address [facility] Co de Phone Number [facility] [address] [facility] [address] [place] [address] * Hepatitis panel, acute Blood (03/27/2024 5:41 PM CDT) Hep A IgM Nonreactive Nonreactive Comment: Interpretive Data: If Hep A IgM Ab is reported as Equivocal, a new sample should be drawn in two weeks for testing. Current interpretive data was last revised on 20. Hep B core IgM Nonreactive Nonreactive [facility] Comment: Interpretive Data If HepB Core IgM [...] MICROBIOLOGY - GENERAL ORDERABLES Final Result CRISTY [address] [facility] Department of Laboratories [place], [place] [id number] * N. gonorrhoeae/C. trachomatis Amplification Urine (03/27/2024 5:41 PM CDT) C. trachomatis Not Detected [facility] Comment:Testing performed by : [facility], [address], [place]., [address] N. gonorrhoeae Not Detected CRISTY Comment: Interpretive Data This assay detects Chlamydia trachomatis and Neisseria gonorrhoeae by nucleic acid amplification testing (NAAT). This assay has been cleared by the [place] Food and Drug administration. The performance characteristics of this test have been verified by the [facility] Molecular Infectious Disease laboratory. The performance characteristics of this test have not been evaluated in individuals less than 14 years of age. Current Interpretive Data was last revised on 2023. Testing performed by: [facility], [address] [place] [address]., [address] Urine (None) 03/27/2024 5:41 PM CDT 03/27/2024 5:41 PM CDT Clare Kasper MD LAB MICROBIOLOGY - GENERAL ORDERABLES Final Result Performing Organization Address [facility] Co de Phone Number [address] [place] [address] BJ * RPR Blood (03/27/2024 5:41 PM CDT) RPR Nonreactive Nonreactive Comment:Testing performed by : [facility], [address] [place] [address]., [address] Blood 03/27/2024 5:41 PM CDT 03/27/2024 9:05 PM CDT Clare Kasper MD LAB MICROBIOLOGY - GENERAL ORDERABLES Final Result Performing Organization Address City/[facility] Co de Phone Number [address] [address] * Trichomonas vaginalis PCR Urine (03/27/2024 5:41 PM CDT) Trichomonas DNA Not Detected [facility] Comment: Interpretive Data This assay detects Trichomonas vaginalis by nucleic acid amplification testing (NAAT). This assay has been cleared by the [place] Food and Drug administration. The performance characteristics of this test have been verified by the [facility] Molecular Infectious Disease laboratory. The performance of this test has not been evaluated in individuals less than 18 years of age. ?? Current Interpretive Data was last revised on 2023. Testing performed by: [facility], [address], [place]., [address] Urine 03/27/2024 5:41 PM CDT 03/27/2024 5:41 PM CDT us Clare Kasper MD LAB MICROBIOLOGY - GENERAL ORDERABLES Final Result [facility] [address] [facility] [place] [address] [facility] * (ABNORMAL) CBC with auto differential (03/27/2024 5:41 PM CDT) WBC 7.3 3.8 - 9.9 K/cumm Comment:Testing performed by : [address] [address] Hgb 13.6 13.0 - 17.5 g/dL C[facility]ST[facility] Comment:Testing performed by : [address] [address] Hct 38.7(L) 38.9 - 50.3 % [facility] Comment:Testing performed by : [address] [address] Plt 191 150 - 400 K/cumm CRISTY Comment:Testing performed by : [address] [address] MPV 9.2 9.1 - 12.3 fL C[facility] Comment:Testing performed by : [address] [address] RBC 4.24(L) 4.30 - 5.80 M/cumm C[facility] Comment:Testing performed by : [address] [address] MCV 91.3 81.3 - 96.4 fL [facility] Comment:Testing performed by : [address] [address] MCH 32.1 27.1 - 33.3 pg C[facility] [place] Comment:Testing performed by : [address] [address] MCHC 35.1 32.3 - 35.7 g/dL [facility] [place] Comment:Testing performed by : [address] [address] RDW CV 12.1 11.1 - 14.9 % [facility] [place] Comment:Testing performed by : [address] [address] RDW SD 40.1 35.7 - 48.1 fL [facility] [place] Comment:Testing performed by : [address] [address] NRBC abs 0.00 0.00 - 0.01 K/cumm [facility] [place] Comment:Testing performed by : [address] [address] Blood 03/27/2024 5:41 PM CDT 03/27/2024 6:00 PM CDT us Clare Kasper MD LAB BLOOD ORDERAB LES Final Result [facility] [place] [address] * (ABNORMAL) Urinalysis reflex to microscopic and culture Urine, clean voided (03/27/2024 5:41 PM CDT) Color, ur Yellow Yellow Comment:Testing performed by : [address] [address] Clarity, ur Clear Clear C[facility] [place] Comment:Testing performed by : [address] [address] Specific gravity, ur 1.010 1.003 - 1.030 [facility] [place] Comment:Testing performed by : [address] [address] pH, urine 5.5 CRISTY Comment: Interpretive Data [...] last revised on 2017 Testing performed by: [facility], [address] [place] [address], [place]., [address] Protein, ur ql Negative Negative C[facility] [place] Comment:Testing performed by : [facility], [address] [place] [address], [place]., [address] Glucose, ur ql Negative Negative C[facility]Y Comment:Testing performed by : [facility], [address] [place] [address], [place]., [address] Ketones, ur Negative Negative C[facility] Comment:Testing performed by : [facility], [address] [place] [address], [place]., [address] Bilirubin, ur Negative Negative C[facility]STY Comment:Testing performed by : [address], [place]., [address] Blood, ur 1+(A) Negative C[facility] Comment:Testing performed by : [address], [place]., [address] Urobilinogen, ur <2.0 <2.0 mg/dL C[facility]STY Comment:Testing performed by : [address], [place]., [address] Nitrite, ur Negative Negative CRISTY Comment:Testing performed by : [address], [place]., [address] Leukocyte esterase, ur Negative Negative CRISTY Comment:Testing performed by : [address], [place]., [address] UA reflex comment Reflex to microscopic UA will be performed. CRISTY Comment:Testing performed by : [address], [place]., [address] Urine, clean voided 03/27/2024 5:41 PM CDT 03/27/2024 6:54 PM CDT us Clare Kasper MD LAB MICROBIOLOGY - GENERAL ORDERABLES Final Result C[facility]Y [place] [address] [facility] [place] [address] documented in this encounter Visit [...] sleep documented in this encounter Care Teams Telesales Specialist Relationship Specialty Start Date End Date Clare Kasper MD PCP - General Family Medicine 07/27/22 documented as of this encounter
--- OUTSIDE RECORDS SUMMARY | 2024-11-07 14:18 | XMS_ITS | Encounter Summary ---
Author Organization [facility] Address [address] [place] [address] Phone Care Team Providers Care Sustainability Coach Name Role Phone Clare Kasper MD Primary Care Pro vider Reason for Visit * Reason Onset Date Comments Medication Problem 04/16/2024 Pimecrolimus Encounter Details Date Type Department Care Team (Late st Contact Info) Description 04/16/2024 Telephone [facility] Dermatology [facility] [address] [place] [address] Annmarie Bryan Medication Problem (Pimecrolimus) [...] on file 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 Gender Identity Not on file Sexual Orientation Not on file documented as of this encounter Miscellaneous Notes * Telephone Encounter - Gilbert Ritter CMA - 04/20/2024 11:40 AM CDT * Telephone Encounter - [place] Elliott - 04/16/2024 11:18 AM CDT Pimecrolimus 1% cream CaseId:[id number]; Status:Approved; Review Type:Prior Auth; Coverage Start Date:04/16/2024; Coverage End Date:04/16/2025; [employer] Chen: [id number] * Telephone Encounter - Annmarie Bryan - [...] on filedocumented in this encounter Care Teams Sustainability Coach Relationship Specialty Start Date End Date Clare Kasper MD PCP - General Family Medicine 07/27/22 documented as of this encounter
--- OUTSIDE RECORDS SUMMARY | 2024-11-07 14:18 | XMS_ITS | Referral Summary ---
Author Organization [facility] Address [address] [place] [address] Care Team Providers Care Commercial Decorator Name Role Phone Clare Kasper MD Primary Care Pro vider Encounters Date Type Department Care Team Description 10/31/2024 Nurse Triage [facility] Primary Care at [address] [phone] Clare Kasper MD 10/12/2024 1:45 PM CANDY CATCHER Office Visit [facility] Primary Care at [address] [phone] Clare Kasper MD Alcohol use disorder (Primary Dx); Acute non-recurrent maxillary sinusitis 10/11/2024 Telephone [facility] Primary Care at [address] [phone] Clare Kasper MD Medical Question/Miscellaneou [...] needed Assessment & Plan (10/25/2023 2:41 PM CANDY CATCHER): Trazodone as needed Assessment & Plan (03/25/2022 [...] statin Assessment & Plan (10/25/2023 2:42 PM CANDY CATCHER): Continue statin Assessment & Plan (01/24/2023 2:35 [...] (06/18/20) Assessment & Plan (10/25/2023 2:15 PM CANDY CATCHER): Reviewed PMH & FH Phq reviewed Reviewed [...] July Assessment & Plan (09/29/2018 5:39 PM CANDY CATCHER): Flu shot and referral for colonoscopy today Anemia 06/13/2018 Assessment & Plan (09/29/2018 5:27 PM CANDY CATCHER): Mild anemia with last Hb 12.9 (from 12/2016). Folate, B12, Iron panel normal. -CBC today GERD (gastroesophageal reflux disease) 5 Assessment & Plan (03/27/2024 5:05 PM CDT): Stable off medications Assessment & Plan (10/25/2023 2:36 PM CANDY CATCHER): Uncontrolled Restart omeprazole Assessment & Plan (01/24/2023 [...] amlodipine Assessment & Plan (10/25/2023 2:15 PM CANDY CATCHER): Blood pressure controlled continue 10mg amlodipine Assessment [...] hyperkalemia Assessment & Plan (12/08/2020 12:32 PM CANDY CATCHER): Blood pressure very well-controlled with amlodipine. No [...] daily Assessment & Plan (09/29/2018 5:25 PM CANDY CATCHER): Poorly controlled hypertension 157/81 in clinic today. [...] cessation Assessment & Plan (10/25/2023 2:42 PM CANDY CATCHER): Encourage cessation, he is interested in starting wellbutrin Assessment & Plan (09/29/2018 5:29 PM CANDY CATCHER): Was given patches at our last visit however he feels like they make him itch. He continues to smoke 1/2PPD. -As he has other active issues going on today, namely ETOH cessation, we will defer further discussion to our next visit. Would consider pharmacologic therapy for him, chantix vs wellbutrin. 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 No indication for [...] available. 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 [...] request) Assessment & Plan (09/29/2018 5:26 PM CANDY CATCHER): Vitamin D 18 on 05/2018 labs, will [...] on file Legal Sex Male 2:37 PM CANDY CATCHER Gender Identity Not on file Sexual Orientation Not on file Last Filed Vital Signs Vital Sign Reading Time Taken Comments Blood Pressure 137/88 10/12/2024 1:47 PM CANDY CATCHER Pulse 100 10/12/2024 1:47 PM CANDY CATCHER Temperature 36.8 ??C (98.2 ??F) 10/12/2024 1:47 PM CS T Respiratory Rate 18 10/12/2024 1:47 PM CANDY CATCHER Oxygen Saturation 99% 10/12/2024 1:47 PM CANDY CATCHER Inhaled Oxygen Concentration - - Weight 49.8 kg (109 lb 11.2 oz) 10/12/2024 1:47 PM CANDY CATCHER Height 170.2 cm (5' 7 ) 10/12/2024 1:47 PM CANDY CATCHER Body Mass Index 17.18 10/12/2024 1:47 PM CANDY CATCHER Plan of Treatment Not on file Goals [...] 20. Hep B core IgM Nonreactive Nonreactive [facility] Comment: Interpretive Data If HepB Core IgM Ab is reported as Equivocal, a new sample should be drawn in two weeks for testing. Current interpretive data was last revised on 20. Hep C Ab Nonreactive Nonreactive [facility] Comment: Antibodies to HCV not detected. [...] MICROBIOLOGY - GENERAL ORDERABLES Final Result [facility] [address] [facility] Department [place] [address] * PSA screen (07/27/2022 5:14 [...] data last revised 22. Testing performed by: [facility], [address] [place] [address]., [address] Blood 07/27/2022 5:14 PM CDT 07/27/2022 5:18 PM CDT Clare Kasper MD LAB BLOOD ORDERAB LES Final Result [facility] [address] Department of Laboratories [place], [place] [id number] * COLONOSCOPY (06/24/2021 9:15 AM CDT) Anatomical Region Laterality Modality Other Narrative Procedure Note Noemi Mccoy MD - 06/24/2021 9:15 AM CDT [facility] Patient Name: Yarile Hill Procedure Date: 06/24/2021 9:15 AM Date of : 1970 Admit Type: Outpatient Age: 51 Gender: Male Attending MD: Noemi Mccoy M.D. Room: [facility] ENDOSCOPY ROOM 8 Note Status: Finalized [...] were verified by the physician,the nurse, the lens engraver and the product support technician in the procedure room. Respiratory Examination: [...] bowel preparation was evaluated using the BBPS (Blair Bowel Preparation Scale)with scores of: Right Colon [...] On: 06/24/2021 9:15 AM Recognized by the [employer] for promoting quality in endoscopy Noemi Mccoy MD ENDOSCOPY PROCEDURES Final R esult from Last 3 Months or Most Recently Relevant to Health Maintenance Insurance [facility] Advance Directives For more information, please contact: [phone] * Full Code (Latest Code Status on File) Date Activated Date Inactivated Comments 06/24/2021 8:04 AM 06/24/2021 2:35 PM * Full Code Date Activated Date Inactivated Comments 05/14/2020 9:51 AM 05/14/2020 5:15 PM Care Teams Commercial Decorator Relationship Specialty Start Date End Date Clare Kasper MD PCP - General Family Medicine 07/27/22
--- OUTSIDE RECORDS SUMMARY | 2024-11-07 14:18 | XMS_ITS | Encounter Summary ---
Author Organization [facility] Healthcare Address [address] [place] [address] Care Team Providers Care Community Service Technician Name Role Phone Clare Kasper MD Primary Care Pro vider Reason for Visit * Reason Onset Date Comments Cyst 12/22/2023 Encounter Details Date Type Department Care Team ([facility] Contact Info) Description 12/22/2023 Nurse Triage [facility] Medical Group Primary Care at [address] [phone] Clare Kasper MD [address] [place] [address] Social History Tobacco Use Types Packs/Day [...] on file Legal Sex Male 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 Pt verbalizes understanding. WELL SERVICE OPERATOR * Telephone Encounter - Indigo Dia RN - 12/22/2023 3:30 PM CST Regarding: cyst on face near right eye ----- Message from Dari Rooney MA sent at 12/22/2023 12:57 PM OIL WELL SERVICE OPERATOR ----- Symptom Based Call Chief Complaint(s): cyst [...] message need to be routed? Yes-Action Needed WELL SERVICE OPERATOR documented in this encounter Plan of [...] on filedocumented in this encounter Care Teams Community Service Technician Relationship Specialty Start Date End Date Clare Kasper MD PCP - General Family Medicine 07/27/22 documented as of this encounter
--- OUTSIDE RECORDS SUMMARY | 2024-11-07 14:18 | XMS_ITS | Encounter Summary ---
Author Organization [facility] Healthcare Address [address] [place] [address] Care Team Providers Care Assistant Education Director Name Role Phone Clare Kasper MD Primary Care Pro vider Encounter Details Date Type Department Care Team ([facility] Contact Info) Description 12/11/2023 Telephone [facility] Medical Group Con[facility] at [place] [address] [place] [phone] Bridgette Moss PA [address] [place] [address] Social History Tobacco Use Types Packs/Day Years [...] on file Legal Sex Male 2:37 PM VACUUM REPAIRER Gender Identity Not on file Sexual Orientation Not on file documented as of this encounter Miscellaneous Notes * Telephone Encounter - Noemi Duron LPN - 12/11/2023 8:39 AM VACUUM REPAIRER LVM for pt to call office back to discuss results. UM REPAIRER * Telephone Encounter - Noemi Duron LPN - 12/11/2023 8:39 AM VACUUM REPAIRER ----- Message from KI Marshall sent at 12/10/2023 7:51 PM VACUUM REPAIRER ----- On doxy , continue . UM REPAIRER documented in this encounter Plan of Treatment [...] on filedocumented in this encounter Care Teams Assistant Education Director Relationship Specialty Start Date End Date Clare Kasper MD PCP - General Family Medicine 07/27/22 documented as of this encounter
--- OUTSIDE RECORDS SUMMARY | 2024-11-07 14:18 | XMS_ITS | Encounter Summary ---
Author Organization [facility] Address [address] [place] [address] Care Team Providers Care Care Director Rn Name Role Phone Calre Kasper MD Primary Care Pro vider Encounter Details Date Type Department Care Team (Late st Contact Info) Description 11/17/2004 Outpatient Historical [facility] Clifford Chandra MD [facility] [place], [place] [phone] Er, Authorized P NO ADDRESS ON FILE [...] CBC WITH DIFFERENTIAL Routine 11/17/2004 11:50 PM COTTON PICKER CBC WITH DIFFERENTIAL Routine 11/17/2004 11:50 PM COTTON PICKER LIPASE Routine 11/17/2004 11:50 PM COTTON PICKER AMYLASE Routine 11/17/2004 11:50 PM COTTON PICKER documented in this encounter Results * CBC WITH DIFFERENTIAL (11/17/2004 11:50 PM COTTON PICKER) NEUTROPHILS 51 45 - 70 % INTERFAC [...] K/uL INTERFACE SYSTEM 11/17/2004 11:5 0 PM COTTON PICKER Clifford Chandra MD HEMATOLOGY ORDERABLE S INTERFACE SYSTEM Refer to clinic/hospital department * CBC WITH DIFFERENTIAL (11/17/2004 11:50 PM COTTON PICKER) WBC 9.8 4.0 - 9.8 K/uL INTERFACE [...] fL INTERFACE SYSTEM 11/17/2004 11:5 0 PM COTTON PICKER Clifford Chandra MD HEMATOLOGY ORDERABLE S INTERFACE SYSTEM Refer to clinic/hospital department * LIPASE (11/17/2004 11:50 PM COTTON PICKER) LIPASE 31 13 - 60 U/L INTERFAC E SYSTEM 11/17/2004 11:5 0 PM COTTON PICKER Clifford Chandra MD CHEMISTRY ORDERABLES INTERFACE SYSTEM Refer to clinic/hospital department * AMYLASE (11/17/2004 11:50 PM COTTON PICKER) AMYLASE 85 28 - 100 U/L INTERFACE SYSTEM 11/17/2004 11:5 0 PM COTTON PICKER Clifford Chandra MD CHEMISTRY ORDERABLES Performing Organization Address City/[facility] de Phone Number INTERFACE SYSTEM Refer to clinic/hospital department documented in this encounter Visit Diagnoses Diagnosis Abdominal pain, other specified site- Primary documented in this encounter Care Teams Care Director Rn Relationship Specialty Start Date End Date Clare Kasper MD [address] [place] [phone] PCP - General Family Practice 07/11/24 documented as of this encounter
--- OUTSIDE RECORDS SUMMARY | 2024-11-07 14:18 | XMS_ITS | Encounter Summary ---
Author Organization [facility] Healthcare Address [address] [place] [address] Care Team Providers Care Sound Person Name Role Phone Clare Kasper MD Primary Care Pro vider Reason for Visit * Reason Onset Date Comments sinus congestion 10/31/2024 Encounter Details Date Type Department Care Team ([facility] st Contact Info) Description 10/31/2024 Nurse Triage [facility] Primary Care at [address] [phone] Clare Kasper MD [address] [place] [phone] Social History Tobacco Use Types Packs/Day [...] on file Legal Sex Male 2:37 PM EDUCATION PROGRAM COORDINATOR Gender Identity Not on file Sexual Orientation Not on file documented as of this encounter Miscellaneous Notes * Telephone Encounter - Tova Wagner RN - 10/31/2024 1:19 PM CST Patient called with C/O sinus pressure/drainage for the past 2 weeks. Denies fever, headache. C/O feeling off balance. He was seen by PCP on 10/12 and requesting Rx for antibiotics. [facility] appt scheduled today. Care Advice Given: Drink plenty of water Educated patient to call back if worsens, new symptoms develop or has further questions/concerns. Reason for Disposition [1] Sinus congestion (pressure, fullness) AND [2] present > 10 days Protocols used: Sinus Pain or Xnzlvwciag-[id number]-PQ ATION PROGRAM COORDINATOR * Telephone Encounter - Tova Wagner RN - 10/31/2024 1:12 PM CST Regarding: Sinus pressure in eyes drainage ----- Message from Aniya Granda sent at 10/31/2024 1:10 PM EDUCATION PROGRAM COORDINATOR ----- Chief concern: Sinus pressure in eyes drainage Duration: 2 weeks Callback #: [phone] Additional Information: Pt saw Dr 2 weeks ago and was advised if he does not get better to call back ATION PROGRAM COORDINATOR documented in this encounter Plan of Treatment [...] on filedocumented in this encounter Care Teams Sound Person Relationship Specialty Start Date End Date Clare Kasper MD PCP - General Family Medicine 07/27/22 documented as of this encounter
--- OUTSIDE RECORDS SUMMARY | 2024-11-07 14:18 | XMS_ITS | Encounter Summary ---
Author Organization [facility] Healthcare Address [address] [place] [address] Care Team Providers Care Special Weapons Unit Officer Name Role Phone Clare Kasper MD Primary Care Pro vider Reason for Visit * Reason Onset Date Comments Medical Question/Miscellaneous 10/11/2024 Encounter Details Date Type Department Care Team ([facility] Contact Info) Description 10/11/2024 Telephone [facility] Medical Group Primary Care at [address] [phone] Clare Kasper MD [address] [place] [id number] Medical Question/Miscellaneous Social History Tobacco Use [...] on file 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 D SERVICE TECHNICIAN * Telephone Encounter - Clare Kasper MD - 10/11/2024 2:45 PM CST Yes if he is concerned for dehydration/alcohol withdrawal recommend ED. D SERVICE TECHNICIAN * Telephone Encounter - Keke Marie - 10/11/2024 2:18 PM CST Medical Question/Miscellaneous Caller???s Concern: Patient was at [facility] last night. States he wasn't given any fluids and he thinks he is dehydrated. States pcp is familiar with his history with alcohol. He would like to knowif he should go to [facility] or what he should do? Please advise Does message need to be routed? Yes-Action Needed D SERVICE TECHNICIAN documented in this encounter Plan of [...] filedocumented in this encounter Care Teams Special Weapons Unit Officer Relationship Specialty Start Date End Date Clare Kasper MD PCP - General Family Medicine 07/27/22 documented as of this encounter
--- OUTSIDE RECORDS SUMMARY | 2024-11-07 14:18 | XMS_ITS | Encounter Summary ---
Author Organization [facility] Healthcare Address [address] [place] [address] Care Team Providers Care Rigging Slinger Name Role Phone Clare Kasper MD Primary Care Pro vider Reason for Visit * Reason Comments Palpitations * Consultation (Routine) - Closed Specialty Diagnoses / Procedures Referred By Contac t Referred To Contact Cardiology Diagnoses Palpitations ST segment changes on electrocardiography Clare Kasper MD [address] [facility] [address] [place] [address] Phone: tel: fax: [facility] Medical Group Cardiology [address] [place] [phone] Phone: tel: fax: Referral ID Status Reason Start Date Expiration Date V isits Requested Visits Authorized [id number] Closed Specialty Services Required 10/26/2023 11/24/2024 1 1 Encounter Details Date Type Department Care Team (Latest Contact Info) Description 12/15/2023 2:15 PM VALIDATION ENGINEER Office Visit [facility] Cardiology [address] [place] [phone] Momo Latham MD [address] [facility] [address] [place] [address] Palpitations; ST segment changes on electrocardiography Social [...] on file Legal Sex Male 2:37 PM VALIDATION ENGINEER Gender Identity Not on file Sexual Orientation Not on file documented as of this encounter Last Filed Vital Signs Vital Sign Reading Time Taken Comments Blood Pressure 130/78 12/15/2023 2:01 PM VALIDATION ENGINEER Pulse 87 12/15/2023 2:01 PM VALIDATION ENGINEER Temperature - - Respiratory Rate - - Oxygen Saturation 98% 12/15/2023 2:01 PM VALIDATION ENGINEER Inhaled Oxygen Concentration - - Weight 52.2 kg (115 lb) 12/15/2023 2:01 PM VALIDATION ENGINEER Height 170.2 cm (5' 7 ) 12/15/2023 2:01 PM VALIDATION ENGINEER Body Mass Index 18.01 12/15/2023 2:01 PM VALIDATION ENGINEER documented in this encounter Progress Notes * [...] Moving all extremities well. 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 Sincerely yours, Momo Latham MD DATION ENGINEER documented in this encounter Plan of [...] 12/15/2023 documented in this encounter Care Teams Rigging Slinger Relationship Specialty Start Date End Date Clare Kasper MD PCP - General Family Medicine 07/27/22 documented as of this encounter
--- OUTSIDE RECORDS SUMMARY | 2024-11-07 14:18 | XMS_ITS | Encounter Summary ---
Author Organization [facility] Healthcare Address [address] [place] [address] Care Team Providers Care Messenger Copy Name Role Phone Clare Kasper MD Primary Care Pro vider Encounter Details Date Type Department Care Team (Latest Contact Info) Description 12/08/2023 6:30 PM DRILL SHARPENER OPERATOR - 12/08/2023 11:59 PM [facility] Hospital Encounter [address] [address] Abscess of face Discharge Disposition: Discharge to [...] on file Legal Sex Male 2:37 PM DRILL SHARPENER OPERATOR Gender Identity Not on file Sexual [...] AND GRAM STAIN Routine 12/08/2023 6:30 PM DRILL SHARPENER OPERATOR Abscess of face documented in this encounter Results * (ABNORMAL) Aerobic culture and gram stain Abscess Face (12/08/2023 6:30 PM DRILL SHARPENER OPERATOR) Direct Specimen Exam Stain: Few polymorphonuclear leukocytes seen. No organisms seen. CRISTY OROZCO Report Final Report: Few Staphylococcus lugdunensis Rare Mixed microorganisms. (.) CERNAM OROZCO Organism STAPHYLOCOCCUS LUGDUNENSIS [facility]Y [facility] Organism MIXED MICROORGANISMS. CRISTY OROZCO Abscess (Face) 12/08/2023 6: 30 PM DRILL SHARPENER OPERATOR 12/08/2023 9:20 PM DRILL SHARPENER OPERATOR Narrative CRISTY BROWNING - 12/14/2023 2:30 PM DRILL SHARPENER OPERATOR Specimen received on an ESwab. Testing performed by [facility] ([phone]) Specimens submitted from normally sterile body sites [...] lugdunensis Ceftriaxone INTERPRETATION Susceptible us Lauren Xiong PENSION FUND MANAGER LAB MICROBIOLOGY - [facility] Final Result CRISTY OROZCO [facility] Department [place] [address] documented in this encounter Visit Diagnoses Diagnosis Abscess of face Cellulitis and abscess of face documented in this encounter Care Teams Messenger Copy Relationship Specialty Start Date End Date Clare Kasper MD PCP - General Family Medicine 07/27/22 documented as of this encounter
--- OUTSIDE RECORDS SUMMARY | 2024-11-07 14:18 | XMS_ITS | Clinical Summary ---
Author Organization [facility] Address [address] [place] [address] Care Team Providers Care Manager Compliance Name Role Phone Clare Kasper MD Primary [...] needed Assessment & Plan (10/25/2023 2:41 PM RETAIL SHIFT MANAGER): Trazodone as needed Assessment & Plan (03/25/2022 [...] statin Assessment & Plan (10/25/2023 2:42 PM RETAIL SHIFT MANAGER): Continue statin Assessment & Plan (01/24/2023 2:35 [...] (06/18/20) Assessment & Plan (10/25/2023 2:15 PM RETAIL SHIFT MANAGER): Reviewed PMH & FH Phq reviewed Reviewed [...] July Assessment & Plan (09/29/2018 5:39 PM RETAIL SHIFT MANAGER): Flu shot and referral for colonoscopy today Anemia 06/13/2018 Assessment & Plan (09/29/2018 5:27 PM RETAIL SHIFT MANAGER): Mild anemia with last Hb 12.9 (from 12/2016). Folate, B12, Iron panel normal. -CBC today GERD (gastroesophageal reflux disease) 5 Assessment & Plan (03/27/2024 5:05 PM CDT): Stable off medications Assessment & Plan (10/25/2023 2:36 PM RETAIL SHIFT MANAGER): Uncontrolled Restart omeprazole Assessment & Plan (01/24/2023 [...] amlodipine Assessment & Plan (10/25/2023 2:15 PM RETAIL SHIFT MANAGER): Blood pressure controlled continue 10mg amlodipine Assessment [...] hyperkalemia Assessment & Plan (12/08/2020 12:32 PM RETAIL SHIFT MANAGER): Blood pressure very well-controlled with amlodipine. No [...] daily Assessment & Plan (09/29/2018 5:25 PM RETAIL SHIFT MANAGER): Poorly controlled hypertension 157/81 in clinic today. [...] cessation Assessment & Plan (10/25/2023 2:42 PM RETAIL SHIFT MANAGER): Encourage cessation, he is interested in starting wellbutrin Assessment & Plan (09/29/2018 5:29 PM RETAIL SHIFT MANAGER): Was given patches at our last visit however he feels like they make him itch. He continues to smoke 1/2PPD. -As he has other active issues going on today, namely ETOH cessation, we will defer further discussion to our next visit. Would consider pharmacologic therapy for him, chantix vs wellbutrin. Alcohol use disorder 11/13/2012 Assessment & Plan (10/12/2024 2:18 PM RETAIL SHIFT MANAGER): Recent relapse No evidence of withdrawal today Recommend cessation Assessment & Plan (03/27/2024 5:04 PM CDT): continue cessation Assessment & Plan (10/25/2023 2:42 PM RETAIL SHIFT MANAGER): Encourage cessation, he is interested in trying naltrexone Assessment & Plan (01/24/2023 2:40 PM CDT): Declines medications to mothers helper in avoiding alcohol (naltrexone, antabuse, etc) currently Assessment & Plan (09/30/2022 9:03 AM RETAIL SHIFT MANAGER): No withdrawal symptoms currently Discussed I don't [...] diet Assessment & Plan (09/29/2018 5:36 PM RETAIL SHIFT MANAGER): He typically drinks twice a year for [...] 07/06/2019 Assessment & Plan (09/29/2018 5:30 PM RETAIL SHIFT MANAGER): Mild sinus congestion today. No indication for [...] request) Assessment & Plan (09/29/2018 5:26 PM RETAIL SHIFT MANAGER): Vitamin D 18 on 05/2018 labs, will start 50,000 units vit D weekly today. Arthralgia of shoulder 11/13/201206/13 Encounters Date Type Department Care Team Description 10/31/2024 Nurse Triage [facility] Primary Care at [address] [phone] Clare Kasper MD 10/12/2024 1:45 PM RETAIL SHIFT MANAGER Office Visit [facility] Primary Care at [address] [phone] Clare Kasper MD Alcohol use disorder (Primary Dx); Acute non-recurrent maxillary sinusitis 10/11/2024 Telephone [facility] Primary Care at [address] [phone] Clare Kasper MD Medical Question/Miscellaneou s from [...] on file Legal Sex Male 2:37 PM RETAIL SHIFT MANAGER Gender Identity Not on file Sexual Orientation Not on file Obstetrics History Last Filed Vital Signs Vital Sign Reading Time Taken Comments Blood Pressure 137/88 10/12/2024 1:47 PM RETAIL SHIFT MANAGER Pulse 100 10/12/2024 1:47 PM RETAIL SHIFT MANAGER Temperature 36.8 ??C (98.2 ??F) 10/12/2024 1:47 PM CS T Respiratory Rate 18 10/12/2024 1:47 PM RETAIL SHIFT MANAGER Oxygen Saturation 99% 10/12/2024 1:47 PM RETAIL SHIFT MANAGER Inhaled Oxygen Concentration - - Weight 49.8 kg (109 lb 11.2 oz) 10/12/2024 1:47 PM RETAIL SHIFT MANAGER Height 170.2 cm (5' 7 ) 10/12/2024 1:47 PM RETAIL SHIFT MANAGER Body Mass Index 17.18 10/12/2024 1:47 PM RETAIL SHIFT MANAGER Plan of Treatment Health Maintenance Due Date [...] 20. Hep B core IgM Nonreactive Nonreactive [facility] Comment: Interpretive Data If HepB Core IgM Ab is reported as Equivocal, a new sample should be drawn in two weeks for testing. Current interpretive data was last revised on 20. Hep C Ab Nonreactive Nonreactive [facility] Comment: Antibodies to HCV not detected. [...] last revised on 2020. HepBsAg Nonreactive Nonreactive [facility] Blood 03/27/2024 5:41 PM CDT 03/27/2024 8:25 PM CDT Clare Kasper MD LAB MICROBIOLOGY - GENERAL ORDERABLES Final Result Performing Organization Address [facility] Co de Phone Number CRISTY [address] [facility] [place] [address] * PSA screen (07/27/2022 5:14 PM CDT) [...] data last revised 22. Testing performed by: [facility], [address] [place] [address]., [id number] Blood 07/27/2022 5:14 PM CDT 07/27/2022 5:18 PM CDT Clare Kasper MD LAB BLOOD ORDERAB LES Final Result Performing Organization Address [facility] de Phone Number CRISTY [address] [facility] [address] [place], [place] [id number] * COLONOSCOPY (06/24/2021 9:15 AM CDT) Anatomical Region Laterality Modality Other Narrative Procedure Note Noemi Mccoy MD - 06/24/2021 9:15 AM CDT [facility] Patient Name: Yariel Hill Procedure Date: 06/24/2021 9:15 AM Date of : 1970 Admit Type: Outpatient Age: 51 Gender: Male Attending MD: Noemi Mccoy M.D. Room: [facility] ENDOSCOPY ROOM 8 Note Status: Finalized Procedure: [...] were verified by the physician,the nurse, the direct casting operator and the master certified rv technician in the procedure room. Respiratory Examination: [...] bowel preparation was evaluated using the BBPS ([place] Bowel Preparation Scale)with scores of: Right Colon [...] On: 06/24/2021 9:15 AM Recognized by the [employer] for promoting quality in endoscopy Noemi Mccoy MD ENDOSCOPY PROCEDURES Final R esult from Last 3 Months or Most Recently Relevant to Health Maintenance Insurance [facility] Advance Directives For more information, please contact: [phone] * Full Code (Latest Code Status on File) Date Activated Date Inactivated Comments 06/24/2021 8:04 AM 06/24/2021 2:35 PM * Full Code Date Activated Date Inactivated Comments 05/14/2020 9:51 AM 05/14/2020 5:15 PM Care Teams Manager Compliance Relationship Specialty Start Date End Date Clare Kasper MD PCP - General Family Medicine 07/27/22
--- OUTSIDE RECORDS SUMMARY | 2024-11-07 14:19 | XMS_ITS | Encounter Summary ---
Author Organization [facility] Address [address] [place] [address] Phone Care Team Providers Care Computer Science Teacher Name Role Phone David Feliz MD Primary Care Provide r Encounter Details Date Type Department Care Team (Late st Contact Info) Description 05/22/2021 Telephone [facility] [address] [facility] 8th [place] [address] [place] [address] Laura Carlisle RN Social History Tobacco Use Types Packs/Day Years Used Date Smoking Tobacco: Every Day Cigarettes Smokeless Tobacco: Never Comments:8 cigs a day Alcohol Use Standard Drinks/Week Comments Yes 0 (1 standard drink = 0.6 oz pur e alcohol) occasionally Sex and Gender Information Value Date Recorded Sex Assigned at Not on file Legal Sex Male 2:37 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
--- OUTSIDE RECORDS SUMMARY | 2024-11-07 14:19 | XMS_ITS | Encounter Summary ---
Author Organization [facility] Address [address] [place] [address] Care Team Providers Care Dry Cell Battery Assembler Name Role Phone David Feliz MD Primary Care Provide r Reason for Visit * Reason Comments Withdrawal Encounter Details Date Type Department Care Team ([facility] st Contact Info) Description 07/14/2021 6:34 AM CDT - 07/14/2021 12:03 PM CDT Emergency [facility] Emergency Department [address] [place] [address] Jose Acosta MD [facility] [address] [place] [address] Alcohol withdrawal syndrome without complication (CMS/HCC) (HCC) [...] on file 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 * Abuse of Alcohol (AfterCare(R) Instructions(ER/ED)) (Syrian) * Alcohol Withdrawal (Syrian) * Tremors (General Information) (Syrian) documented in this encounter Medications at Time [...] Alcohol abuse, tobacco abuse, employed with an [employer] Patient History: Patient Active Problem List Diagnosis [...] (CMS/HCC) (HCC) Tremulousness Jose Acosta MD 07/14/21 1415 * Zina Liu RN - 07/14/2021 6:34 AM CDT Bed: ED2-20 Expected date: Expected time: Means of arrival: Public Transportation Comments: Zina Liu RN 07/14/21 0636 * Olivia Johnson RN - 07/13/2021 5:15 [...] Glucose, POC 122 70 - 199 mg/dL [facility] Blood 07/14/2021 10:2 2 AM CDT 07/14/2021 10:22 AM CDT us Notinfile Unknown LAB POCT ORDERABLES - DEVICE F inal Result [facility] Department [place] [address] * (ABNORMAL) POCT glucose (07/14/2021 9:51 AM CDT) Glucose, POC 60(L) 70 - 199 mg/dL [facility] Blood 07/14/2021 9:51 AM CDT 07/14/2021 9:51 AM CDT us Notinfile Unknown LAB POCT ORDERABLES - DEVICE F inal Result Performing Organization Address [facility] de Phone Number [facility] Department [place] [address] * Critical Result Callback Chemistry (07/14/2021 8:23 AM CDT) Date Notified [id number] [facility] Time Notified 922 [facility] TestName Glucose [facility] Called/Read Back Jose MUNIZ [facility] Credentials MD MUNIZ [facility] Called By [facility] Blood 07/14/2021 8:23 AM CDT 07/14/2021 8:33 AM CDT Jose Acosta MD LAB BLOOD ORDERABLES Final Result Performing Organization Address [facility] de Phone Number [facility] Department [place] [address] * eGFR (07/14/2021 8:23 AM CDT) Pathologist [facility] eGFR >90 90 - 130 mL/min/1.7 3 m2 [facility] Comment: Interpretive Data Reference Interval Normal [...] Acosta MD LAB BLOOD ORDERABLES Final Result [facility] Department [place] [address] * (ABNORMAL) Differential, auto (07/14/2021 8:23 AM CDT) Neutrophil abs 8.4(H) 1.7 - 6.5 K/cumm [facility] Imm gran abs 0.0 0.0 - 0.1 K/cumm [facility] Lymphocyte abs 2.0 0.8 - 3.3 K/cumm [facility] Monocyte abs 0.5 0.2 - 0.8 K/cumm [facility] Eosinophil abs 0.1 0.0 - 0.5 K/cumm [facility] Basophil abs 0.1 0.0 - 0.1 K/cumm [facility] Neutrophil pct 74.9 % [facility] Comment: Interpretive Data Percent cell count reference ranges are not reported, since discordance with absolute values may lead to misinterpretation of CBC data. Current Interpretive Data was last revised on 2018. Imm gran pct 0.4 % [facility] Comment: Interpretive Data Percent cell count reference ranges are not reported, since discordance with absolute values may lead to misinterpretation of CBC data. Current Interpretive Data was last revised on 2018. Lymphocyte pct 18.2 % [facility] Comment: Interpretive Data Percent cell count reference ranges are not reported, since discordance with absolute values may lead to misinterpretation of CBC data. Current Interpretive Data was last revised on 2018. Monocyte pct 4.6 % [facility] Comment: Interpretive Data Percent cell count reference ranges are not reported, since discordance with absolute values may lead to misinterpretation of CBC data. Current Interpretive Data was last revised on 2018. Eosinophil pct 1.3 % [facility] Comment: Interpretive Data Percent cell count reference ranges are not reported, since discordance with absolute values may lead to misinterpretation of CBC data. Current Interpretive Data was last revised on 2018. Basophil pct 0.6 % [facility] Comment: Interpretive Data Percent cell count reference ranges are not reported, since discordance with absolute values may lead to misinterpretation of CBC data. Current Interpretive Data was last revised on 2018. Blood 07/14/2021 8:23 AM CDT 07/14/2021 8:33 AM CDT Jose Acosta MD LAB BLOOD ORDERABLES Final Result Performing Organization Address City/[facility]/ZIP Co de Phone Number [facility] Department [place] [address] * (ABNORMAL) Lactate (07/14/2021 8:23 AM CDT) Pathologist [facility] Lactate 2.1(H) 0.7 - 2.0 mmol/L [facility] Blood 07/14/2021 8:23 AM CDT 07/14/2021 8:33 AM CDT Jose Acosta MD LAB BLOOD ORDERABLES Final Result [facility] Department [place] [address] * (ABNORMAL) CBC with auto differential (07/14/2021 8:23 AM CDT) Pathologist [facility] WBC 11.2(H) 3.8 - 9.9 K/cumm [facility] Hgb 14.7 13.0 - 17.5 g/dL [facility] Hct 42.1 38.9 - 50.3 % [facility] Plt 221 150 - 400 K/cumm [facility] MPV 9.1 9.1 - 12.3 fL [facility] RBC 4.55 4.30 - 5.80 M/cumm [facility] MCV 92.5 81.3 - 96.4 fL [facility] MCH 32.3 27.1 - 33.3 pg [facility] MCHC 34.9 32.3 - 35.7 g/dL [facility] RDW CV 13.4 11.1 - 14.9 % [facility] RDW SD 45.6 35.7 - 48.1 fL [facility] NRBC abs 0.00 0.00 - 0.01 K/cumm [facility] Blood 07/14/2021 8:23 AM CDT 07/14/2021 8:33 AM CDT Jose Acosta MD LAB BLOOD ORDERABLES Final Result [facility] Department [place] [address] * (ABNORMAL) Comprehensive metabolic panel (07/14/2021 8:23 AM CDT) Sodium 137 135 - 145 mmol/L [facility] Potassium, pl 5.3(H) 3.3 - 4.9 mmol/L [facility] Chloride 95(L) 97 - 110 mmol/L [facility] CO2 26 22 - 32 mmol/L [facility] Anion gap 16(H) 2 - 15 mmol/L [facility] BUN 13 8 - 25 mg/dL [facility] Creatinine 0.87 0.80 - 1.30 mg/dL [facility] Glucose 50(C) 70 - 199 mg/dL [facility] Comment: Glycolysis suspected; suggest sending a [...] Calcium 10.3 8.5 - 10.3 mg/dL [facility] Bilirubin, total 0.8 0.1 - 1.2 mg/dL [facility] Protein, pl 8.5 6.5 - 8.5 g/dL [facility] Albumin 5.3(H) 3.5 - 5.0 g/dL [facility] Alk phos 78 40 - 130 Units/L [facility] ALT 22 7 - 55 Units/L [facility] AST 35 10 - 50 Units/L [facility] Blood 07/14/2021 8:23 AM CDT 07/14/2021 8:33 AM CDT Jose Acosta MD LAB BLOOD ORDERABLES Final Result [facility] Department [place] [address] * Blood gas, venous (07/14/2021 8:23 AM CDT) pH, Venous 7.36 7.32 - 7.43 [facility] PCO2, Venous 49 40 - 50 mmHg [facility] PO2, Venous 30 mmHg [facility] Comment: Interpretive Data No Reference Range Established Current Interpretive Data was last revised on 2018. HCO3 Venous, Calculated 28 20 - 30 mmol/L [facility] BE, venous 1 mmol/L [facility] Comment: Interpretive Data No Reference Range Established Current Interpretive Data was last revised on 2018. Blood 07/14/2021 8:23 AM CDT 07/14/2021 8:29 AM CDT Jose Acosta MD LAB BLOOD ORDERABLES Final Result [facility] Department [place] [address] * ECG 12-LEAD (07/14/2021 8:13 AM CDT) Mimi [facility]BRAMS [facility] - 07/14/2021 8:13 AM CDT Jose Acosta [...] Arturo Brown RN)[phone] (Stopped - Provider: Zina Liu RN) multivitamin with folic acid 400 mcg [...] 07/14/2021 documented in this encounter Care Teams Dry Cell Battery Assembler Relationship Specialty Start Date End Date David Feliz MD PCP - General 04/18/21 07/26/22 documented as of this encounter
--- OUTSIDE RECORDS SUMMARY | 2024-11-07 14:19 | XMS_ITS | Encounter Summary ---
Author Organization [facility] Address [address] [place] [address] Care Team Providers Care Beef Boner Name Role Phone Clare Kasper MD Primary Care Pro vider Reason for Visit * Reason Comments Follow-up Encounter Details Date Type Department Care Team (Latest Contact Info) Description 01/24/2023 2:15 PM CDT Office Visit [facility] Primary Care [address] [facility] [address] [place] [address] Clare Kasper MD [address] [place] [id number] Primary insomnia (Primary Dx); Primary hypertension; [...] on file Legal Sex Male 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 Gender Identity Not on file Sexual Orientation [...] abuse Assessment & Plan: Declines medications to furnace helper in avoiding alcohol (naltrexone, antabuse, etc) [...] Problem(s): Alcohol use disorder Declines medications to furnace helper in avoiding alcohol (naltrexone, antabuse, etc) [...] * Hemoglobin A1c (01/24/2023 3:41 PM CDT) [facility] Hgb A1C 5.5 4.0 - 5.6 % [facility] Comment:Testing performed by : [facility], [address] [place] [address], [place]., [address] Estimated Average Glucose 111 mg/dL [facility] Comment: The ADA recommends reporting an estimated Average Glucose (eAG) with all Hemoglobin A1c results using the equation derived from a study of 507 normal and diabetic adults. ??Minority populations were underrepresented and children were not included. ?? (Diabetes Care 31:2133-7643, 2008). ??The eAG is not equivalent to a fasting glucose. Testing performed by: [facility], [address] [place] [address]., [id number] Blood 01/24/2023 3:41 PM CDT 01/24/2023 3:57 PM CDT us Clare Kasper MD LAB BLOOD ORDERAB LES Final Result [facility] [address] [facility] Department [place] [address] * Lipid panel (01/24/2023 3:41 [...] last revised on 2018. Testing performed by: [facility], [address] [place] [address]., [address] Triglycerides 77 <=149 mg/dL [facility] Comment: [...] last revised on 2018. Testing performed by: [address] [address] HDL 46 >=40 mg/dL [facility] Comment: [...] last revised on 2018. Testing performed by: [address] [address] LDL, calculated 76 <=129 mg/dL [facility] [...] last revised on 2018. Testing performed by: [address] [address] Non-HDL Cholesterol 91 mg/dL [facility] Comment: [...] last revised on 2018. Testing performed by: [address] [address] Chol/HDL ratio 3 [facility] Comment:Testing performed by : [address] [address] Blood 01/24/2023 3:41 PM CDT 01/24/2023 3:57 PM CDT us Clare Kasper MD LAB BLOOD ORDERAB LES Final Result [facility] [address] [facility] Department [place] [address] * Comprehensive metabolic panel (01/24/2023 3:41 PM CDT) [facility] Sodium 140 135 - 145 mmol/L [facility] Comment:Testing performed by : [address] [address] Potassium, pl 4.0 3.3 - 4.9 mmol/L [facility] Comment:Testing performed by : [address] [address] Chloride 104 97 - 110 mmol/L [facility] Comment:Testing performed by : [address], [place]., [address] CO2 22 22 - 32 mmol/L [facility] Comment:Testing performed by : [address], [place]., [address] Anion gap 14 2 - 15 mmol/L [facility] Comment:Testing performed by : [address], [place]., [address] BUN 10 8 - 25 mg/dL [facility] Comment:Testing performed by : [address], [place]., [address] Creatinine 0.80 0.80 - 1.30 mg/dL [facility] Comment:Testing performed by : [address] [address] Glucose 95 70 - 199 mg/dL [facility] Comment: Interpretive Data Fasting glucose >/= [...] was last revised 2022. Testing performed by: [address] [address] Calcium 9.5 8.5 - 10.3 mg/dL [facility] Comment:Testing performed by : [address] [address] Bilirubin, total 0.4 0.1 - 1.2 mg/dL [facility] Comment:Testing performed by : [address] [address] Protein, pl 7.5 6.5 - 8.5 g/dL [facility] Comment:Testing performed by : [address] [address] Albumin 4.5 3.5 - 5.0 g/dL [facility] Comment:Testing performed by : [address] [address] Alk phos 77 40 - 130 Units/L [facility] Comment:Testing performed by : [address] [address] ALT 12 7 - 55 Units/L [facility] Comment:Testing performed by : [address] [address] AST 26 10 - 50 Units/L [facility] Comment:Testing performed by : [address] [address] Blood 01/24/2023 3:41 PM CDT 01/24/2023 3:57 PM CDT Clare Kasper MD LAB BLOOD ORDERAB LES Final Result [facility] [address] [facility] Department of Laboratories [place], [place] [id number] documented in this encounter Visit Diagnoses Diagnosis [...] documented as of this encounter Care Teams Beef Boner Relationship Specialty Start Date End Date Clare Kasper MD PCP - General Family Medicine 07/27/22 documented as of this encounter
--- OUTSIDE RECORDS SUMMARY | 2024-11-07 14:19 | XMS_ITS | Encounter Summary ---
Author Organization [facility] Medical Group Address [address] [facility] [address] [place] [address] Care Team Providers Care Product Safety Associate Name Role Phone Scar Medina MD Primary Care Pro vider Reason for Visit * Reason Comments New Patient Encounter Details Date Type Department Care Team (Latest Contact Info) Description 07/27/2022 4:00 PM CDT Office Visit [facility] Primary Care [address] [facility] [address] [place] [address] Scar Medina MD [address] [place] [address] Primary hypertension (Primary Dx); Hyperlipidemia, unspecified [...] on file 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 gonorrhoeae Not Detected Not Detected CRISTY Comment: Interpretive Data Testing performed by the [facility]. This assay detects Chlamydia trachomatis and [...] last revised on 2019. Testing performed by: [facility], [address] [place] [address]., [address] Urine (None) 07/27/2022 5:20 PM CDT 07/27/2022 6:27 PM CDT Scar Medina MD LAB MICROBIOLOGY - GENERAL ORDERABLES Final Result Performing Organization Address [facility] Co de Phone Number [facility] [address] [facility] [place] [address] * Vitamin D 25 hydroxy (07/27/2022 5:14 PM CDT) Vitamin D 25-OH 40.0 30.0 - 80.0 ng/mL CRISTY Blood 07/27/2022 5:14 PM CDT 07/27/2022 6:42 PM CDT Scar Medina MD LAB BLOOD ORDERAB LES Final Result Performing Organization Address City/[facility]/ZIP Co de Phone Number [place] [phone] [facility] [place] [address] * Hepatitis panel, acute (07/27/2022 5:14 PM CDT) Pathologist [facility] Hep A IgM Nonreactive Nonreactive [facility] Comment: Interpretive Data: If Hep A IgM Ab is reported as Equivocal, a new sample should be drawn in two weeks for testing. Current interpretive data was last revised on 20. Hep B core IgM Nonreactive Nonreactive [facility] Comment: Interpretive Data If HepB Core IgM Ab is reported as Equivocal, a new sample should be drawn in two weeks for testing. Current interpretive data was last revised on 20. Hep C Ab Nonreactive Nonreactive [facility] Comment: Interpretive Data Nonreactive: Antibodies to HCV [...] last revised on 2020. HepBsAg Nonreactive Nonreactive [facility] Blood 07/27/2022 5:14 PM CDT 07/27/2022 6:42 PM CDT Scar Medina MD LAB MICROBIOLOGY - GENERAL ORDERABLES Final Result Performing Organization Address [facility] de Phone Number [address] [place] [address] * HIV 1/2 Antibody plus p24 Antigen Blood (07/27/2022 5:14 PM CDT) [facility] HIV 1/2 ab + p24 ag Nonreactive Nonreactive [facility] Comment: Nonreactive for HIV-1 antigen and HIV-1/HIV-2 antibodies. No laboratory evidence of HIV infection. If acute HIV infection is suspected, consider testing for HIV-1 RNA. Blood 07/27/2022 5:14 PM CDT 07/27/2022 6:42 PM CDT Scar Medina MD LAB MICROBIOLOGY - GENERAL ORDERABLES Final Result Performing Organization Address [facility] de Phone Number [facility] [address] [place] [address] * RPR Blood (07/27/2022 5:14 PM CDT) Pathologist [facility] RPR Nonreactive Nonreactive CRISTY Comment:Testing performed by : [facility], [address] [facility] [place]., [address] Blood 07/27/2022 5:14 PM CDT 07/27/2022 7:26 PM CDT Scar Medina MD LAB MICROBIOLOGY - GENERAL ORDERABLES Final Result Performing Organization Address [facility] de Phone Number [facility] [address] [place] [address] * PSA screen (07/27/2022 5:14 PM CDT) Pathologist [facility] PSA-Total 0.37 <=3.90 ng/mL CRISTY Comment: [...] data last revised 22. Testing performed by: [address] [address] Blood 07/27/2022 5:14 PM CDT 07/27/2022 5:18 PM CDT Scar Medina MD LAB BLOOD ORDERAB LES Final Result Performing Organization Address [facility] Co de Phone Number CRISTY [address] [facility] [employer] [place], [place] [phone] * Hemoglobin A1c (07/27/2022 5:14 PM CDT) Hgb A1C 5.0 4.0 - 5.6 % CRISTY Comment:Testing performed by : [address] [address] Estimated Average Glucose 97 mg/dL CRISTY Comment: The ADA recommends reporting an estimated Average Glucose (eAG) with all Hemoglobin A1c results using the equation derived from a study of 507 normal and diabetic adults. ??Minority populations were underrepresented and children were not included. ?? (Diabetes Care 31:3341-4580, 2008). ??The eAG is not equivalent to a fasting glucose. Testing performed by: [address] [address] Blood 07/27/2022 5:14 PM CDT 07/27/2022 5:18 PM CDT Scar Medina MD LAB BLOOD ORDERAB LES Final Result Performing Organization Address City/[facility] Co de Phone Number [facility] [address] [facility] [employer] [place], [place] [phone] * Lipid panel (07/27/2022 5:14 PM CDT) [...] last revised on 2018. Testing performed by: [address] [address] Triglycerides 71 <=149 mg/dL [facility] [place] Comment: [...] last revised on 2018. Testing performed by: [address] [address] HDL 56 >=40 mg/dL [facility] [place] Comment: [...] last revised on 2018. Testing performed by: [facility], [address] [place] [address]., [address] LDL, calculated 123 <=129 mg/dL CRISTY Comment: [...] last revised on 2018. Testing performed by: [facility], [address] [place] [address]., [address] Non-HDL Cholesterol 137 mg/dL C[facility]STY Comment: Interpretive [...] last revised on 2018. Testing performed by: [address] [address] Chol/HDL ratio 3 [facility] Comment:Testing performed by : [address] [address] Blood 07/27/2022 5:14 PM CDT 07/27/2022 5:18 PM CDT us Scar Medina MD LAB BLOOD ORDERAB LES Final Result [facility]Y [address] [facility] [place] [address] * (ABNORMAL) Comprehensive metabolic panel (07/27/2022 5:14 PM CDT) Sodium 139 135 - 145 mmol/L C[facility]STY Comment:Testing performed by : [address] [address] Potassium, pl 4.1 3.3 - 4.9 mmol/L [facility] Comment:Testing performed by : [address] [address] Chloride 102 97 - 110 mmol/L CRISTY Comment:Testing performed by : [address] [address] CO2 27 22 - 32 mmol/L CRISTY Comment:Testing performed by : [address] [address] Anion gap 10 2 - 15 mmol/L CRISTY Comment:Testing performed by : [address] [address] BUN 7(L) 8 - 25 mg/dL C[facility]STY Comment:Testing performed by : [address] [address] Creatinine 1.10 0.80 - 1.30 mg/dL [facility]Y Comment:Testing performed by : [address] [address] Glucose 82 70 - 199 mg/dL CRISTY [...] was last revised 2017. Testing performed by: [address] [address] Calcium 10.0 8.5 - 10.3 mg/dL [facility] Comment:Testing performed by : [address] [address] Bilirubin, total 0.3 0.1 - 1.2 mg/dL [facility] Comment:Testing performed by : [address] [address] Protein, pl 7.7 6.5 - 8.5 g/dL [facility] Comment:Testing performed by : [address] [address] Albumin 5.0 3.5 - 5.0 g/dL [facility] Comment:Testing performed by : [address] [address] Alk phos 60 40 - 130 Units/L [facility] Comment:Testing performed by : [address] [address] ALT 14 7 - 55 Units/L [facility] Comment:Testing performed by : [address] [address] AST 21 10 - 50 Units/L C[facility]STY Comment:Testing performed by : [address] [address] Blood 07/27/2022 5:14 PM CDT 07/27/2022 5:18 PM CDT us Scar Medina MD LAB BLOOD ORDERAB LES Final Result [facility]Y [address] [facility] [place] [address] * (ABNORMAL) CBC with auto differential (07/27/2022 5:14 PM CDT) WBC 8.1 3.8 - 9.9 K/cumm C[facility]Y [place] Comment:Testing performed by : [address], [address] Hgb 14.3 13.0 - 17.5 g/dL [facility] [place] Comment:Testing performed by : [address], [address] Hct 42.1 38.9 - 50.3 % [facility] [place] Comment:Testing performed by : [address] [address] Plt 261 150 - 400 K/cumm CRISTY Comment:Testing performed by : [address] [address] MPV 9.0(L) 9.1 - 12.3 fL [facility] [place] Comment:Testing performed by : [address] [address] RBC 4.35 4.30 - 5.80 M/cumm [facility] [place] Comment:Testing performed by : [address] [address] MCV 96.8(H) 81.3 - 96.4 fL CRISTY Comment:Testing performed by : [address] [address] MCH 32.9 27.1 - 33.3 pg C[facility] [place] Comment:Testing performed by : [address], [address] MCHC 34.0 32.3 - 35.7 g/dL [facility] [place] Comment:Testing performed by : [address], [address] RDW CV 13.8 11.1 - 14.9 % CRISTY Comment:Testing performed by : [address] [address] RDW SD 49.1(H) 35.7 - 48.1 fL [facility] [place] Comment:Testing performed by : [address] [address] NRBC abs 0.00 0.00 - 0.01 K/cumm C[facility]Y [place] Comment:Testing performed by : [address] [address] Blood 07/27/2022 5:14 PM CDT 07/27/2022 5:18 PM CDT us Scar Medina MD LAB BLOOD ORDERAB LES Final Result [facility] [place] [address] [facility] [place] [address] documented in this encounter Visit Diagnoses Diagnosis [...] 3 added in this encounter Care Teams Product Safety Associate Relationship Specialty Start Date End Date Scar Medina MD PCP - General Family Medicine 07/27/22 documented as of this encounter
--- OUTSIDE RECORDS SUMMARY | 2024-11-07 14:19 | XMS_ITS | Encounter Summary ---
Author Organization [facility] Healthcare Address [address] [place] [address] Care Team Providers Care Gaming Host Name Role Phone Clare Kasper MD Primary Care Pro vider Reason for Visit * Reason Comments Drug / Alcohol Assessment Encounter Details Date Type Department Care Team ([facility] Contact Info) Description 11/13/2022 10:43 PM INSTRUMENT AND ELECTRICAL TECHNICIAN - 11/14/2022 2:51 AM INSTRUMENT AND ELECTRICAL TECHNICIAN Emergency [facility] Emergency Department [address] [place] [address] Jaylene Noonan MD [address] [place] [address] Alcohol cessation counseling (Primary Dx); [...] on file 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 Gender Identity Not on file Sexual Orientation Not on file documented as of this encounter Last Filed Vital Signs Vital Sign Reading Time Taken Comments Blood Pressure 135/79 11/14/2022 12:30 AM INSTRUMENT AND ELECTRICAL TECHNICIAN Pulse 52 11/14/2022 2:40 AM INSTRUMENT AND ELECTRICAL TECHNICIAN Temperature 36.1 ??C (97 ??F) 11/13/2022 10:29 PM INSTRUMENT AND ELECTRICAL TECHNICIAN Respiratory Rate 16 11/13/2022 10:29 PM INSTRUMENT AND ELECTRICAL TECHNICIAN Oxygen Saturation 97% 11/14/2022 2:40 AM INSTRUMENT AND ELECTRICAL TECHNICIAN Inhaled Oxygen Concentration - - Weight 50.4 kg (111 lb 1.8 oz) 11/13/2022 10:29 PM INSTRUMENT AND ELECTRICAL TECHNICIAN Height 170.2 cm (5' 7.01 ) 11/13/2022 10:[address] Body Mass Index 17.4 11/13/2022 10:29 PM INSTRUMENT AND ELECTRICAL TECHNICIAN documented in this encounter Discharge Instructions * Discharge Instructions* Timmy Raphael MD - 11/14/2022 2:09 AM INSTRUMENT AND ELECTRICAL TECHNICIAN You have been evaluated in the Emergency [...] resources that was given to by the social media marketer, and reach out first thing Tuesday morning: [facility]) Address: [address], [place] [address] Hours: Opens 8?AM Mon [facility] Address: [address], [place] [address] Hours: Opens 8?AM Mon [facility] Address: [address], [place] [address] Hours: Open 24 hours [facility] Address: [address], [place] [address] Hours: Open 24 hours Please follow up with your primary care physician. Return to the Emergency Department if you experience shaking, seizures, palpitations, inability to keep down fluids, worsening or uncontrolled pain, confusion, or for any other concerning symptoms. RUMENT AND ELECTRICAL TECHNICIAN * Attachments The following attachments cannot be sent through Care Everywhere. * Abuse of Alcohol (AfterCare(R) Instructions(ER/ED)) (Latvian) documented in this encounter Medications at Time [...] reviewed consult. EDSW notes pt lives in [facility], EDSW met with pt at bedside and provide alcohol abuse resources. Pt was appreciative, no further assistance is needed at this time. [facility] ([facility]) Address: [address] [place] [address] Hours: Opens 8?AM Mon [facility] Address: [address] [place] [address] Hours: Opens 8?AM Mon [facility] Address: [address] [place] [address] Hours: Open 24 hours [facility] Address: [address] [place] [address] Hours: Open 24 hours Risa Dave LMSW 11/14/22 RUMENT AND ELECTRICAL TECHNICIAN documented in this encounter ED Notes * [...] (CMS/HCC) (HCC) Jaylene Whalen MD 11/14/22 0714 RUMENT AND ELECTRICAL TECHNICIAN * Tony Pablo RN - 11/13/2022 10:32 [...] in triage and ans wering questions appropriately,. RUMENT AND ELECTRICAL TECHNICIAN documented in this encounter Plan of [...] For 1 dose Given 11/14/2022 2:44 AM INSTRUMENT AND ELECTRICAL TECHNICIAN 10 mg documented in this encounter Discontinued Medications Medication Sig Discontinue Reason Start Date End Da te chlordiazePOXIDE (LIBRIUM) 25 mg capsule TAKE 1 CAPSULE BY MOUTH EVERY 6 HOURS NEEDED FOR ALCOHOL WITHDRAWALS 07/10/2022 11/14/2022 documented as of this encounter Active and Recently Administered Medications Times are shown in INSTRUMENT AND ELECTRICAL TECHNICIAN. Scheduled Medication Order 11/12/2022 11/13/2022 11/14/2022 chlordiazePOXIDE [...] 11/13/2022 documented in this encounter Care Teams Gaming Host Relationship Specialty Start Date End Date Clare Kasper MD PCP - General Family Medicine 07/27/22 documented as of this encounter
--- OUTSIDE RECORDS SUMMARY | 2024-11-07 14:19 | XMS_ITS | Encounter Summary ---
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 Yes-Action Needed PROFESSOR documented in this encounter Plan of [...] on filedocumented in this encounter Care Teams Rehab Director Relationship Specialty Start Date End Date Clare Kapser MD PCP - General Family Medicine 07/27/22 documented as of this encounter
--- OUTSIDE RECORDS SUMMARY | 2024-11-07 14:19 | XMS_ITS | Encounter Summary ---
Author Organization [facility] Medical Group Address [address] [facility] [address] [place] [address] Care Team Providers Care Classification Analyst Name Role Phone Clare Kasper MD Primary Care Pro vider Reason for Visit * Reason Onset Date Comments Medical Question/Miscellaneous 02/16/2023 Call Back 02/16/2023 Encounter Details Date Type Department Care Team (Late st Contact Info) Description 02/16/2023 Telephone [facility] Medical [facility] Primary Care [address] [facility] [address] [place] [address] Clare Kasper MD [address] [facility] [address] [place] [address] Medical Question/Miscellaneous; Call Back Social [...] on file 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 Caller???s Call back #: [phone] Does message need to be routed? Yes-Action Needed * Telephone Encounter - Mia Snyder MA - 02/18/2023 4:52 PM CDT Letter sent thru [facility] * Telephone Encounter - Lizy Birmingham - 02/18/2023 4:18 PM CDT Call Back Caller???s Concern: patient missed a call from Mia and is returning her call. Call warm transferred to the backline. Caller???s Call back #: [phone] Does message need to be routed? No * Telephone Encounter - Dari Rooney MA - 02/18/2023 9:15 AM CDT Call Back Caller???s Concern: pt calling back. He states that letter is fine to go to his mychart. Please inform pt when letter is sent. Caller???s Call back #: [phone] Does message need to be routed? Yes-Action [...] healed at this time. Please advise. Thanks. [facility] [phone] * Telephone Encounter - Arlene Jurado - 02/17/2023 9:26 AM CDT Call Back Caller???s Concern: pt states that's incorrect - after the ear was cleaned up she never came back in the room but she never physically told him that. Pt attempted to schedule but no appts until 04/19/2023 - pt requesting to speak to a nurse for resolution, Caller???s Call back #: [phone] Does message need to be routed? Yes-Action [...] because of hisear. Caller???s Call back #: [phone] Does message need to be routed?Yes-Action Needed [...] on filedocumented in this encounter Care Teams Classification Analyst Relationship Specialty Start Date End Date Clare Kasper MD PCP - General Family Medicine 07/27/22 documented as of this encounter
--- OUTSIDE RECORDS SUMMARY | 2024-11-07 14:19 | XMS_ITS | Encounter Summary ---
Author Organization [facility] Address [address] [place] [address] Phone Care Team Providers Care Tissue Recovery Technician Name Role Phone David Feliz MD Primary Care Provide r Encounter Details Date Type Department Care Team (Late st Contact Info) Description 05/29/2021 Telephone [facility] 8th [place] [address] [place] [phone] Laura Carlisle RN Social History Tobacco Use Types Packs/Day Years Used Date Smoking Tobacco: Every Day Cigarettes Smokeless Tobacco: Never Comments:8 cigs a day Alcohol Use Standard Drinks/Week Comments Yes 0 (1 standard drink = 0.6 oz pur e alcohol) occasionally Sex and Gender Information Value Date Recorded Sex Assigned at Not on file 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 Gender Identity Not on file Sexual [...] None ENDOCRINE: None PRIOR PROCEDURE ISSUES: None CARBON COATING MACHINE OPERATOR/: NA IMPLANTS.: None Notes: DIABETIC MEDS Y/N: [...] [] Location limitations: Scheduling Scheduling location limitations: Net Coordinator needed [] NA Language: POA [] NA Name: SPECIAL PROCEDURE INSTRUCTIONS Procedure information Date of procedure: 06/24/21 Time of procedure: 829 Arrival time: 729 Location: [facility] Proceduralist: Dr Mccoy Instructions Method of instructions: Mailed copy [x]Confirmation of ride/pulpwood dealer [x]Post anesthesia restrictions given [x]NPO Instructions: [x]Diet [...] 05/29/2021 documented in this encounter Care Teams Tissue Recovery Technician Relationship Specialty Start Date End Date David Feliz MD PCP - General 04/18/21 07/26/22 documented as of this encounter
--- OUTSIDE RECORDS SUMMARY | 2024-11-07 14:19 | XMS_ITS | Encounter Summary ---
Author Organization [facility] Healthcare Address [address] [place] [address] Care Team Providers Care Lumber Chain Offbearer Name Role Phone David Feliz MD Primary Care Provide r Reason for Visit * Reason Onset Date Comments Podiatry Referral 06/17/2021 Encounter Details Date Type Department Care Team ([facility] Contact Info) Description 06/17/2021 [facility]phone [facility] [address] [place] [address] 4th [address] [place] [address] Cheryl Pickens Podiatry Referral Social History Tobacco Use Types Packs/Day Years Used Date Smoking Tobacco: Every Day Cigarettes Smokeless Tobacco: Never Comments:8 cigs a day Alcohol Use Standard Drinks/Week Comments Yes 0 (1 standard drink = 0.6 oz pur e alcohol) occasionally Sex and Gender Information Value Date Recorded Sex Assigned at Not on file 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
--- OUTSIDE RECORDS SUMMARY | 2024-11-07 14:19 | XMS_ITS | Encounter Summary ---
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 Department [place] [address] * Lipid panel (08/19/2021 4:07 PM CDT) Pathologist [facility] Cholesterol 112 30 - 199 [...] on 2018. LDL, calculated 47 <=129 mg/dL [facility] Comment: Interpretive Data Ages < or [...] revised on 2018. Non-HDL Cholesterol 56 mg/dL [facility] Comment: Interpretive Data Ages < or [...] last revised on 2018. Chol/HDL ratio 2 [facility] Blood 08/19/2021 4:07 PM CDT 08/19/2021 4:58 PM CDT David Feliz MD LAB BLOOD ORDERABLES Final Result [facility] [place] [address] * Basic metabolic panel (08/19/2021 4:07 PM CDT) [facility] Sodium 141 135 - 145 mmol/L [facility] Potassium, pl 4.2 3.3 - 4.9 mmol/L [facility] Comment:Hemolyzed; Potassium value may be falsely elevated by as much as 0.3-0.5 mmol/L. Suggest redraw and reanalysis. Chloride 101 97 - 110 mmol/L [facility] CO2 26 22 - 32 mmol/L [facility] Anion gap 14 2 - 15 mmol/L [facility] BUN 12 8 - 25 mg/dL [facility] Creatinine 1.13 0.80 - 1.30 mg/dL [facility] Glucose 80 70 - 199 mg/dL [facility] Comment: Interpretive Data Fasting glucose >/= [...] 2017. Calcium 9.6 8.5 - 10.3 mg/dL [facility] Blood 08/19/2021 4:07 PM CDT 08/19/2021 4:58 PM CDT David Feliz MD LAB BLOOD ORDERABLES Final Result Performing Organization Address City/[facility]/ZIP Co de Phone Number [facility] Department [place] [address] * Hepatic function panel (08/19/2021 4:07 PM CDT) [facility] Bilirubin, total 0.3 0.1 - 1.2 mg/dL [facility] Bilirubin, direct <0.2 0.1 - 0.3 mg/dL [facility] Protein, pl 7.6 6.5 - 8.5 g/dL [facility] Albumin 4.8 3.5 - 5.0 g/dL [facility] Alk phos 67 40 - 130 Units/L [facility] ALT 20 7 - 55 Units/L [facility] AST 34 10 - 50 Units/L [facility] Comment:Hemolyzed; result ma y be falsely elevated Blood 08/19/2021 4:07 PM CDT 08/19/2021 4:58 PM CDT David Feliz MD LAB BLOOD ORDERABLES Final Result [facility] Department [place] [address] * HIV 1/2 Antibody plus p24 Antigen (08/19/2021 4:07 PM CDT) [facility] HIV 1/2 ab + p24 ag Nonreactive Nonreactive [facility] Comment: Nonreactive for HIV-1 antigen and HIV-1/HIV-2 antibodies. No laboratory evidence of HIV infection. If acute HIV infection is suspected, consider testing for HIV-1 RNA. Blood 08/19/2021 4:07 PM CDT 08/19/2021 4:58 PM CDT David Feliz MD LAB MICROBIOLOGY - NERAL ORDERABLES Final Result [facility] Department [place] [address] * Hemoglobin A1c (08/19/2021 4:07 PM CDT) Hgb A1C 5.1 4.0 - 5.6 % [facility] Estimated Average Glucose 100 mg/dL [facility] [...] Feliz MD LAB BLOOD ORDERABLES Final Result [facility] Department [place] [address] documented in this encounter Visit Diagnoses Diagnosis Screening for diabetes mellitus (DM) Screening for diabetes mellitus Screening for HIV (human immunodeficiency virus) Special screening examination for other specified viral diseases Onychomycosis Dermatophytosis of nail Primary hypertension Unspecified essential hypertension Hyperlipidemia, unspecified hyperlipidemia type documented in this encounter Care Teams Relocation Associate Relationship Specialty Start Date End Date David Feliz MD PCP - General 04/18/21 07/26/22 documented as of this encounter
--- OUTSIDE RECORDS SUMMARY | 2024-11-07 14:19 | XMS_ITS | Encounter Summary ---
Author Organization [facility] Healthcare Address [facility] [place] [address] Care Team Providers Care Boat Rental Clerk Name Role Phone David Feliz MD Primary Care Provide r Reason for Visit * Reason Comments Follow-up Encounter Details Date Type Department Care Team (Latest Contact Info) Description 08/19/2021 3:00 PM CDT Office Visit [facility] Medicine [facility] [address] [facility] [address] [place], [place] [id number] Nyla Bautista MD [address] [place] [address] [phone] [place], [place] [id number] David Feliz MD [address] [place] [address] [address] [place], [place] [id number] Onychomycosis (Primary Dx); Hyperlipidemia, unspecified hyperlipidemia type; [...] on file 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 Gender Identity Not on file Sexual Orientation [...] Hemoglobin A1c (08/19/2021 4:07 PM CDT) Pathologist [facility] Hgb A1C 5.1 4.0 - 5.6 % [facility] Estimated Average Glucose 100 mg/dL [facility] Comment: The ADA recommends reporting an [...] Feliz MD LAB BLOOD ORDERABLES Final Result [facility] Department [place] [address] * HIV 1/2 Antibody plus p24 Antigen (08/19/2021 4:07 PM CDT) Pathologist [facility] HIV 1/2 ab + p24 ag Nonreactive Nonreactive [facility] Comment: Nonreactive for HIV-1 antigen and HIV-1/HIV-2 antibodies. No laboratory evidence of HIV infection. If acute HIV infection is suspected, consider testing for HIV-1 RNA. Blood 08/19/2021 4:07 PM CDT 08/19/2021 4:58 PM CDT David Feliz MD LAB MICROBIOLOGY - NERAL ORDERABLES Final Result Performing Organization Address [facility] Co de Phone Number [facility] [place] [address] * Hepatic function panel (08/19/2021 4:07 PM CDT) Bilirubin, total 0.3 0.1 - 1.2 mg/dL [facility] Bilirubin, direct <0.2 0.1 - 0.3 mg/dL [facility] Protein, pl 7.6 6.5 - 8.5 g/dL [facility] Albumin 4.8 3.5 - 5.0 g/dL [facility] Alk phos 67 40 - 130 Units/L [facility] ALT 20 7 - 55 Units/L [facility] AST 34 10 - 50 Units/L [facility] Comment:Hemolyzed; result ma y be falsely elevated Blood 08/19/2021 4:07 PM CDT 08/19/2021 4:58 PM CDT David Feliz MD LAB BLOOD ORDERABLES Final Result Performing Organization Address [facility] de Phone Number [facility] Department [place] [address] * Basic metabolic panel (08/19/2021 4:07 PM CDT) Sodium 141 135 - 145 mmol/L [facility] Potassium, pl 4.2 3.3 - 4.9 mmol/L [facility] Comment:Hemolyzed; Potassium value may be falsely elevated by as much as 0.3-0.5 mmol/L. Suggest redraw and reanalysis. Chloride 101 97 - 110 mmol/L [facility] CO2 26 22 - 32 mmol/L [facility] Anion gap 14 2 - 15 mmol/L [facility] BUN 12 8 - 25 mg/dL [facility] Creatinine 1.13 0.80 - 1.30 mg/dL [facility] Glucose 80 70 - 199 mg/dL [facility] Comment: Interpretive Data Fasting glucose >/= [...] 2017. Calcium 9.6 8.5 - 10.3 mg/dL [facility] Blood 08/19/2021 4:07 PM CDT 08/19/2021 4:58 PM CDT David Feliz MD LAB BLOOD ORDERABLES Final Result [facility] Department [place] [address] * Lipid panel (08/19/2021 4:07 PM CDT) [facility] Cholesterol 112 30 - 199 mg/dL [facility] Comment: Interpretive Data Ages < or [...] revised on 2018. Triglycerides 43 <=149 mg/dL [facility] Comment: Interpretive Data Ages < or [...] revised on 2018. HDL 56 >=40 mg/dL [facility] Comment: Interpretive Data Ages < or [...] on 2018. LDL, calculated 47 <=129 mg/dL [facility] Comment: Interpretive Data Ages < or [...] BLOOD ORDERABLES Final Result [facility] Department of Laboratories [place], [place] [id number] documented in this encounter Visit Diagnoses Diagnosis Onychomycosis- Primary Dermatophytosis of nail Hyperlipidemia, unspecified hyperlipidemia type Primary hypertension Unspecified essential hypertension Alcohol-induced insomnia (CMS/HCC) (HCC) Screening for HIV (human immunodeficiency virus) Special screening examination for other specified viral diseases Screening for diabetes mellitus (DM) Screening for diabetes mellitus Tobacco use documented in this encounter Care Teams Boat Rental Clerk Relationship Specialty Start Date End Date David Feliz MD PCP - General 04/18/21 07/26/22 documented as of this encounter
--- OUTSIDE RECORDS SUMMARY | 2024-11-07 14:19 | XMS_ITS | Encounter Summary ---
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 Gender Identity Not on file Sexual Orientation Not on file documented as of this encounter OR Notes * Anesthesia Postprocedure Evaluation - Yariel Macario MD - 06/24/2021 10:09 AM CDT Patient: Yariel Hill Procedure Summary Date: 06/24/21 Room / Location: [facility] ENDOSCOPY ROOM 8 / [facility] Anesthesia Start: 908 Anesthesia [...] * Anesthesia Preprocedure Evaluation - Melonie Massey, CATALYTIC CONVERTER OPERATOR - 06/24/2021 8:50 AM CDT Images from [...] 10 mg tablet 06/23/2021 11/07/20 11/07/21 Lionel uBsby MD Take 1 tablet (10 mg total) [...] Medication protocol when under care of a WATER RESOURCES BUSINESS SEGMENT LEADER Planned anesthesia: MAC Induction: Induction: intravenous. Postoperative Plan: Patient's planned disposition post procedure is Outpatient. Informed Consent: Discussed plan with WATER RESOURCES BUSINESS SEGMENT LEADER. Anesthesia plan and risks discussed with patient. [...] to maintain regimen ACO Care Management Laura Aevry Note: Problem: Medication management Interventions: - Assess [...] mL/hr documented in this encounter Care Teams Fire Patrol Relationship Specialty Start Date End Date David Feliz MD PCP - General 04/18/21 07/26/22 documented as of this encounter
--- OUTSIDE RECORDS SUMMARY | 2024-11-07 14:19 | XMS_ITS | Encounter Summary ---
Author Organization [facility] Healthcare Address [address] [place] [address] Care Team Providers Care Control Room Tender Name Role Phone Clare Kasper MD Primary Care Pro vider Reason for Visit * Reason Onset Date Comments Test Results 10/26/2023 Encounter Details Date Type Department Care Team ([facility] Contact Info) Description 10/26/[address] [facility] Medical Group Primary Care at [address] [phone] Clare Kapser MD [address] [place] [id number] Test Results Social History Tobacco Use [...] on file Legal Sex Male 2:[address] MAGISTRATE Gender Identity Not on file Sexual Orientation Not on file documented as of this encounter Miscellaneous Notes * Telephone Encounter - Mia Snyder MA - 10/26/2023 1:24 PM CST Spoke to pt in regards to results. He is supposed to fly tomorrow to [place] and was wondering if it was safe [...] to pt. Nothing further at this time. T MAGISTRATE * Telephone Encounter - Rita Forte - 10/26/2023 1:03 PM CST Call Back Caller???s Concern: Patient calling Mia back. AC reviewed notes and transferred patient tot backline Does message need to be routed? No T MAGISTRATE * Telephone Encounter - Mia Snyder MA - 10/26/2023 12:55 PM CST Tried calling pt but phone call was lost. Unable to reach. Will try again. T MAGISTRATE * Telephone Encounter - Mia Snyder MA - 10/26/2023 12:55 PM CST ----- Message from Clare Kasper MD sent at 10/26/2023 11:[address] MAGISTRATE ----- Please advise EKG abnormal. I have placed a referral to cardiology, please give him the number to call if he hasn't heard from them to schedule. If he has any recurrent chest pain, palpitations, shortness of breath, etc advise he go to ED immediately. T MAGISTRATE documented in this encounter Plan of Treatment [...] on filedocumented in this encounter Care Teams Control Room Tender Relationship Specialty Start Date End Date Clare Kasper MD PCP - General Family Medicine 07/27/22 documented as of this encounter
--- OUTSIDE RECORDS SUMMARY | 2024-11-07 14:19 | XMS_ITS | Encounter Summary ---
Author Organization [facility] Healthcare Address [address] [place] [address] Phone Care Team Providers Care Rotor Blade Installer Name Role Phone David Feliz MD Primary Care Provide r Encounter Details Date Type Department Care Team (Late st Contact Info) Description 07/07/2021 Documentation [facility] Gastroenterology [address] 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
--- OUTSIDE RECORDS SUMMARY | 2024-11-07 14:19 | XMS_ITS | Encounter Summary ---
Author Organization 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 gonorrhoeae Not Detected Not Detected CRISTY GLOVER Comment: Interpretive Data Testing performed by the [facility]. This assay detects Chlamydia trachomatis [...] last revised on 2019. Testing performed by: [facility], [address] [place] [address]., [address] Urine (None) 07/27/2022 5:20 PM CDT 07/27/2022 6:27 PM CDT us Clare Kasper MD LAB MICROBIOLOGY - GENERAL ORDERABLES Final Result Performing Organization Address [facility] de Phone Number CRISTY [address] [facility] [employer] [place] [address] * eGFR (07/27/2022 5:14 PM CDT) Pathologist [facility] eGFR 81 mL/min/1. 73 m2 CRISTY Comment: [...] was last reviewed 2021. Testing performed by: [facility], [address] [place] [address]., [id number] Blood 07/27/2022 5:14 PM CDT 07/27/2022 5:18 PM CDT Clare Kasper MD LAB BLOOD ORDERAB LES Final Result Performing Organization Address City/[facility] Co de Phone Number CRISTY [address] [facility] Department of Laboratories [place] [phone] * Differential, auto (07/27/2022 5:14 PM CDT) Neutrophil abs 4.8 1.7 - 6.5 K/cumm CRISTY Comment:Testing performed by : [address] [address] Imm gran abs 0.0 0.0 - 0.1 K/cumm CRISTY Comment:Testing performed by : [address] [address] Lymphocyte abs 2.4 0.8 - 3.3 K/cumm CRISTY Comment:Testing performed by : [address] [address] Monocyte abs 0.7 0.2 - 0.8 K/cumm CRISTY Comment:Testing performed by : [address] [address] Eosinophil abs 0.2 0.0 - 0.5 K/cumm CRISTY Comment:Testing performed by : [address] [address] Basophil abs 0.1 0.0 - 0.1 K/cumm [facility] Comment[facility]Testing performed by : [address] [address] Neutrophil pct 59.3 % [facility] Comment: Interpretive Data Percent cell count reference ranges are not reported, since discordance with absolute values may lead to misinterpretation of CBC data. Current Interpretive Data was last revised on 2018. Testing performed by: [address] [address] Imm gran pct 0.1 % [facility] Comment: Interpretive Data Percent cell count reference ranges are not reported, since discordance with absolute values may lead to misinterpretation of CBC data. Current Interpretive Data was last revised on 2018. Testing performed by: [address] [address] Lymphocyte pct 29.1 % [facility] Comment: Interpretive Data Percent cell count reference ranges are not reported, since discordance with absolute values may lead to misinterpretation of CBC data. Current Interpretive Data was last revised on 2018. Testing performed by: [address] [address] Monocyte pct 8.1 % CRISTY GLOVER Comment: Interpretive Data Percent cell count reference ranges are not reported, since discordance with absolute values may lead to misinterpretation of CBC data. Current Interpretive Data was last revised on 2018. Testing performed by: [address] [address] Eosinophil pct 2.5 % CRISTY GLOVER Comment: Interpretive Data Percent cell count reference ranges are not reported, since discordance with absolute values may lead to misinterpretation of CBC data. Current Interpretive Data was last revised on 2018. Testing performed by: [address] [address] Basophil pct 0.9 % CRISTY GLOVER Comment: Interpretive Data Percent cell count reference ranges are not reported, since discordance with absolute values may lead to misinterpretation of CBC data. Current Interpretive Data was last revised on 2018. Testing performed by: [address] [address] Blood 07/27/2022 5:14 PM CDT 07/27/2022 5:18 PM CDT us Clare Kasper MD LAB BLOOD ORDERAB LES Final Result [facility] [address] [facility] Department of [place] [address] * (ABNORMAL) CBC with auto differential (07/27/2022 5:14 PM CDT) WBC 8.1 3.8 - 9.9 K/cumm CRISTY GLOVER Comment:Testing performed by : [address] [address] Hgb 14.3 13.0 - 17.5 g/dL CRISTY GLOVER Comment:Testing performed by : [address] [address] Hct 42.1 38.9 - 50.3 % CRISTY GLOVER Comment:Testing performed by : [address] [address] Plt 261 150 - 400 K/cumm CRISTY GLOVER Comment:Testing performed by : [address] [address] MPV 9.0(L) 9.1 - 12.3 fL CRISTY GLOVER Comment:Testing performed by : [address] [address] RBC 4.35 4.30 - 5.80 M/cumm CRISTY GLOVER Comment:Testing performed by : [address] [address] MCV 96.8(H) 81.3 - 96.4 fL CRISTY GLOVER Comment:Testing performed by : [address] [address] MCH 32.9 27.1 - 33.3 pg CRISTY GLOVER Comment:Testing performed by : [address] [address] MCHC 34.0 32.3 - 35.7 g/dL CRISTY GLOVER Comment:Testing performed by : [address] [address] RDW CV 13.8 11.1 - 14.9 % CRISTY GLOVER Comment:Testing performed by : [address] [address] RDW SD 49.1(H) 35.7 - 48.1 fL CRISTY GLOVER Comment:Testing performed by : [address] [address] NRBC abs 0.00 0.00 - 0.01 K/cumm CRISTY GLOVER Comment:Testing performed by : [address] [address] Blood 07/27/2022 5:14 PM CDT 07/27/2022 5:18 PM CDT us Clare Kasper MD LAB BLOOD ORDERAB LES Final Result CRISTY [address] [facility] Department of [place] [address] * (ABNORMAL) Comprehensive metabolic panel (07/27/2022 5:14 PM CDT) Sodium 139 135 - 145 mmol/L CRISTY Comment:Testing performed by : [address] [address] Potassium, pl 4.1 3.3 - 4.9 mmol/L CRISTY Comment:Testing performed by : [address] [address] Chloride 102 97 - 110 mmol/L CRISTY Comment:Testing performed by : [address] [address] CO2 27 22 - 32 mmol/L CRISTY Comment:Testing performed by : [address] [address] Anion gap 10 2 - 15 mmol/L CRISTY Comment:Testing performed by : [address] [address] BUN 7(L) 8 - 25 mg/dL CRISTY Comment:Testing performed by : [address] [address] Creatinine 1.10 0.80 - 1.30 mg/dL CRISTY Comment:Testing performed by : [address] [address] Glucose 82 70 - 199 mg/dL CRISTY [...] was last revised 2017. Testing performed by: [address] [address] Calcium 10.0 8.5 - 10.3 mg/dL CRISTY Comment:Testing performed by : [address] [address] Bilirubin, total 0.3 0.1 - 1.2 mg/dL CRISTY Comment:Testing performed by : [address] [address] Protein, pl 7.7 6.5 - 8.5 g/dL CRISTY Comment:Testing performed by : [address], [facility], [address] Albumin 5.0 3.5 - 5.0 g/dL CRISTY Comment:Testing performed by : [address], [address] Alk phos 60 40 - 130 Units/L CRISTY Comment:Testing performed by : [address], [address] ALT 14 7 - 55 Units/L CRISTY Comment:Testing performed by : [address], [address] AST 21 10 - 50 Units/L CRISTY Comment:Testing performed by : [address] [address] Blood 07/27/2022 5:14 PM CDT 07/27/2022 5:18 PM CDT us Clare Kasper MD LAB BLOOD ORDERAB LES Final Result Performing Organization Address [facility]/State/[facility] Co de Phone Number [facility] [address] [facility] Department of [place] [address] * Lipid panel (07/27/2022 5:14 PM CDT) [facility] Cholesterol 193 30 - 199 mg/dL CRISTY [...] last revised on 2018. Testing performed by: [facility], [address] [place] [address]., [address] Triglycerides 71 <=149 mg/dL CRISTY Comment: Interpretive [...] last revised on 2018. Testing performed by: [address] [address] HDL 56 >=40 mg/dL CRISTY Comment: Interpretive [...] last revised on 2018. Testing performed by: [address] [address] LDL, calculated 123 <=129 mg/dL CRISTY Comment: [...] last revised on 2018. Testing performed by: [address] [address] Non-HDL Cholesterol 137 mg/dL CRISTY Comment: Interpretive [...] last revised on 2018. Testing performed by: [address] [address] Chol/HDL ratio 3 CRISTY Comment:Testing performed by : [address] [address] Blood 07/27/2022 5:14 PM CDT 07/27/2022 5:18 PM CDT Clare Kasper MD LAB BLOOD ORDERAB LES Final Result Performing Organization Address [facility] de Phone Number [facility] [address] [facility] [place] [address] * Hemoglobin A1c (07/27/2022 5:14 PM CDT) Pathologist [facility] Hgb A1C 5.0 4.0 - 5.6 % CRISTY Comment:Testing performed by : [address] [address] Estimated Average Glucose 97 mg/dL CRISTY Comment: The ADA recommends reporting an estimated Average Glucose (eAG) with all Hemoglobin A1c results using the equation derived from a study of 507 normal and diabetic adults. ??Minority populations were underrepresented and children were not included. ?? (Diabetes Care 31:4929-6548, 2008). ??The eAG is not equivalent to a fasting glucose. Testing performed by: [address] [address] Blood 07/27/2022 5:14 PM CDT 07/27/2022 5:18 PM CDT Clare Kasper MD LAB BLOOD ORDERAB LES Final Result Performing Organization Address [facility] de Phone Number [facility] [address] [facility] [employer] [address] * PSA screen (07/27/2022 5:14 PM CDT) [facility] PSA-Total 0.37 <=3.90 ng/mL CRISTY Comment: Interpretive [...] data last revised 22. Testing performed by: [facility], [address] [place] [address]., [address] Blood 07/27/2022 5:14 PM CDT 07/27/2022 5:18 PM CDT us Clare Kasper MD LAB BLOOD ORDERAB LES Final Result Performing Organization Address [facility] Co de Phone Number CRISTY [facility]1 [facility] [employer] [place] [address] * RPR Blood (07/27/2022 5:14 PM CDT) RPR Nonreactive Nonreactive CRISTY Comment:Testing performed by : [facility], [address] [place]., [address] Blood 07/27/2022 5:14 PM CDT 07/27/2022 7:26 PM CDT Clare Kasper MD LAB MICROBIOLOGY - GENERAL ORDERABLES Final Result Performing Organization Address City/[facility] Co de Phone Number CRISTY [address] [facility] Department of [employer] [place] [address] * HIV 1/2 Antibody plus p24 Antigen Blood (07/27/2022 5:14 PM CDT) Pathologist [facility] HIV 1/2 ab + p24 ag Nonreactive Nonreactive [facility] Comment: Nonreactive for HIV-1 antigen and HIV-1/HIV-2 antibodies. No laboratory evidence of HIV infection. If acute HIV infection is suspected, consider testing for HIV-1 RNA. Blood 07/27/2022 5:14 PM CDT 07/27/2022 6:42 PM CDT Clare Kasper MD LAB MICROBIOLOGY - GENERAL ORDERABLES Final Result [facility] [address] [facility] Department of [place] [address] * Hepatitis panel, acute (07/27/2022 5:14 PM CDT) [facility] Hep A IgM Nonreactive Nonreactive [facility] Comment: Interpretive Data: If Hep A IgM Ab is reported as Equivocal, a new sample should be drawn in two weeks for testing. Current interpretive data was last revised on 20. Hep B core IgM Nonreactive Nonreactive [facility] Comment: Interpretive Data If HepB Core IgM Ab is reported as Equivocal, a new sample should be drawn in two weeks for testing. Current interpretive data was last revised on 20. Hep C Ab Nonreactive Nonreactive [facility] Comment: Interpretive Data Nonreactive: Antibodies to [...] GENERAL ORDERABLES Final Result Performing Organization Address City/[facility]/ZIP Co de Phone Number CRISTY [facility]0 [facility] [employer] [place] [address] * Vitamin D 25 hydroxy (07/27/2022 5:14 PM CDT) Vitamin D 25-OH 40.0 30.0 - 80.0 ng/mL CRISTY Blood 07/27/2022 5:14 PM CDT 07/27/2022 6:42 PM CDT us Clare Kasper MD LAB BLOOD ORDERAB LES Final Result Performing Organization Address [facility] Co de Phone Number CRISTY [address] [employer] [place] [address] documented in this encounter Visit Diagnoses Diagnosis Vitamin D deficiency Annual physical exam Routine general medical examination at a health care facility Primary hypertension Unspecified essential hypertension Hyperlipidemia, unspecified hyperlipidemia type documented in this encounter Care Teams Pediatric Cardiologist Relationship Specialty Start Date End Date Clare Kasper MD PCP - General Family Medicine 07/27/22 documented as of this encounter
--- OUTSIDE RECORDS SUMMARY | 2024-11-07 14:19 | XMS_ITS | Encounter Summary ---
Author Organization [facility] Address [address] [place] [address] Care Team Providers Care Security Engineer Name Role Phone Clare Kasper MD Primary Care Pro vider Reason for Visit * Reason Comments Eczema Alcohol Problem Pt stated he wanted to let dr know he has be drinking since and had a half beer this morning before coming into office Encounter Details Date Type Department Care Team (Late st Contact Info) Description 09/30/2022 8:45 AM RAMP SERVICE MAN Office Visit [facility] Primary Care [address] [facility] [address] [place] [address] Clare Kasper MD 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 Gender Identity Not on file Sexual Orientation Not on file documented as of this encounter Last Filed Vital Signs Vital Sign Reading Time Taken Comments Blood Pressure 122/82 09/30/2022 8:42 AM RAMP SERVICE MAN Pulse 78 09/30/2022 8:42 AM RAMP SERVICE MAN Temperature 36.5 ??C (97.7 ??F) 09/30/2022 8:42 AM CS T Respiratory Rate 18 09/30/2022 8:42 AM RAMP SERVICE MAN Oxygen Saturation 99% 09/30/2022 8:42 AM RAMP SERVICE MAN Inhaled Oxygen Concentration - - Weight 50.4 kg (111 lb 1.6 oz) 09/30/2022 8:42 A M RAMP SERVICE MAN Height 170.2 cm (5' 7 ) 09/30/2022 8:42 AM RAMP SERVICE MAN Body Mass Index 17.4 09/30/2022 8:42 AM RAMP SERVICE MAN documented in this encounter Patient Instructions * Attachments The following attachments cannot be sent through Care Everywhere. * Eczema (Nail Feeder) (Azerbaijani) * Alcohol Withdrawal (Nail Feeder) (Azerbaijani) documented in this encounter Ordered Prescriptions [...] appropriate judgment and insight Clare Kasper MD SERVICE MAN documented in this encounter Miscellaneous Notes * Assessment & Plan Note - Clare Kasper MD - 09/30/2022 9:02 AM CSTAssociated Problem(s): Alcohol use disorder No withdrawal symptoms currently Discussed I don't feel comfortable prescribing librium in outpatient setting given history of seizure withdrawal Strict return/ED precautions discussed SERVICE MAN documented in this encounter Plan of Treatment [...] plus p24 Antigen Blood (09/30/2022 9:42 AM RAMP SERVICE MAN) HIV 1/2 ab + p24 ag Nonreactive Nonreactive CRISTY GLOVER Comment: Nonreactive for HIV-1 antigen and HIV-1/HIV-2 antibodies. No laboratory evidence of HIV infection. If acute HIV infection is suspected, consider testing for HIV-1 RNA. Blood 09/30/2022 9:42 AM RAMP SERVICE MAN 09/30/2022 12:52 PM RAMP SERVICE MAN Clare Kasper MD LAB MICROBIOLOGY - GENERAL ORDERABLES Final Result Performing Organization Address City/State/ZIP Co tx Phone Number CRISTY [facility]6 [facility] [place] [address] documented in this encounter Visit Diagnoses Diagnosis [...] as of this encounter Care Teams Security Engineer Relationship Specialty Start Date End Date Clare Kasper MD PCP - General Family Medicine 07/27/22 documented as of this encounter
--- OUTSIDE RECORDS SUMMARY | 2024-11-07 14:19 | XMS_ITS | Encounter Summary ---
Author Organization [facility] Address [address] [place] [address] Care Team Providers Care Photographic Machine Operator Name Role Phone Clare Kasper MD Primary Care Pro vider Reason for Referral * Procedure (Routine) - Closed Specialty Diagnoses / Procedures Referred By Litzy [email or web address] Referred To Contact Diagnoses Abscess Procedures Incision and Drainage Clare Kasper MD Phone: tel: fax: [facility] Referral ID Status Reason Start Date Expiration Date Visits Re quested Visits Authorized [id number] Closed 02/04/2023 03/05/2024 1 1 Reason for Visit * Reason Comments Allergic Reaction Allergic reaction so ap- L side of neck Encounter Details Date Type Department Care Team (Late st Contact Info) Description 02/04/2023 8:45 AM CDT Office Visit [facility] Primary Care [address] [facility] [address] [place] [address] Clare Kasper MD [address] [place] [address] [address] [place] [address] Abscess (Primary Dx) Social History [...] on file Legal Sex Male 2:37 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
--- OUTSIDE RECORDS SUMMARY | 2024-11-07 14:19 | XMS_ITS | Encounter Summary ---
Author Organization [facility] Address [address] [place] [address] Care Team Providers Care Computer Support Specialist Instructor Name Role Phone Scar Medina MD Primary Care Pro vider Reason for Referral * Consultation (Routine) - Closed Specialty Diagnoses / Procedures Referred By Litzy mccracken Referred To Contact Cardiology Diagnoses Palpitations ST segment changes on electrocardiography Scar Medina MD [facility] [address] [address] Phone: tel: fax: [facility] Cardiology [address] [place] [address] [place] [phone] Phone: tel: fax: Referral ID Status Reason Start Date Expiration Date V isits Requested Visits Authorized [id number] Closed Specialty Services Required 10/26/2023 11/24/2024 1 1 Question Answer Please select the performing region: [facility] [[id number]] Please select the performing department: [facility] [[id number]] # of visits: 1 E BUYER * Cardiology (Routine) - Closed Specialty Diagnoses / Procedures Referred By Litzy mccracken Referred To Contact Diagnoses Palpitations Procedures ECG 12 lead Scar Medina MD [facility]4 [place] [address] Phone: tel: fax: [facility] [address] [place] [address] Referral ID Status Reason Start Date Expiration Date Visits Re quested Visits Authorized [id number] Closed 10/25/2023 11/23/2024 1 1 E BUYER Reason for Visit * Reason Comments Annual Exam Encounter Details Date Type Department Care Team (Latest Contact Info) Description 10/25/2023 1:45 PM HORSE BUYER Office Visit [facility] Primary Care at [place] [address] [facility] [address] [place] [address] Scar Medina MD [address] [facility] [address] [place] [address] Annual physical exam (Primary Dx); [...] on file Legal Sex Male 2:37 PM HORSE BUYER Gender Identity Not on file Sexual Orientation Not on file documented as of this encounter Last Filed Vital Signs Vital Sign Reading Time Taken Comments Blood Pressure 134/78 10/25/2023 1:58 PM HORSE BUYER Pulse 99 10/25/2023 1:58 PM HORSE BUYER Temperature 37.6 ??C (99.6 ??F) 10/25/2023 1:58 PM CS T Respiratory Rate 18 10/25/2023 1:58 PM HORSE BUYER Oxygen Saturation 99% 10/25/2023 1:58 PM HORSE BUYER Inhaled Oxygen Concentration - - Weight 53.8 kg (118 lb 9.6 oz) 10/25/2023 1:58 P M HORSE BUYER Height 170.2 cm (5' 7 ) 10/25/2023 1:58 PM HORSE BUYER Body Mass Index 18.58 10/25/2023 1:58 PM HORSE BUYER documented in this encounter Ordered Prescriptions Prescription [...] appropriate judgment and insight Scar Medina MD E BUYER E BUYER documented in this encounter Miscellaneous Notes * Assessment & Plan Note - Scar Medina MD - 10/25/2023 2:42 PM CSTAssociated Problem(s): Hyperlipidemia Continue statin E BUYER * Assessment & Plan Note - Scar Medina MD - 10/25/2023 2:42 PM CSTAssociated Problem(s): Alcohol use disorder Encourage cessation, he is interested in trying naltrexone E BUYER * Assessment & Plan Note - Scar Medina MD - 10/25/2023 2:41 PM CSTAssociated Problem(s): Primary insomnia Trazodone as needed E BUYER * Assessment & Plan Note - Scar Medina MD - 10/25/2023 2:36 PM CSTAssociated Problem(s): GERD (gastroesophageal reflux disease) Uncontrolled Restart omeprazole E BUYER * Assessment & Plan Note - Scar Medina MD - 10/25/2023 2:35 PM CSTAssociated Problem(s): Smoking Encourage cessation, he is interested in starting wellbutrin E BUYER E BUYER * Assessment & Plan Note - Scar Medina MD - 10/25/2023 2:15 PM CSTAssociated Problem(s): Hypertension Blood pressure controlled continue 10mg amlodipine E BUYER * Assessment & Plan Note - Scar Medina MD - 10/25/2023 2:15 PM CSTAssociated Problem(s): Annual physical exam Reviewed PMH & FH Phq reviewed Reviewed medications and supplements HCM: orders placed as needed E BUYER * Addendum Note - Mia Snyder MA - 10/25/2023 1:45 PM CSTAddended by: MIA SNYDER on: 10/25/2023 04:53 PM Modules accepted: Orders E BUYER * Addendum Note - Scar Medina MD - 10/25/2023 1:45 PM HORSE BUYER Addended by: SCAR MEDINA on: 10/26/2023 11:16 AM Modules accepted: Orders E BUYER documented in this encounter Plan of Treatment [...] A/B, COVID-19 ANTIGEN Routine 10/25/2023 3:03 PM HORSE BUYER Acute upper respiratory infection documented in this encounter Results * Lipid panel (10/25/2023 4:27 PM HORSE BUYER) [facility] Cholesterol 133 30 - 199 mg/dL C[facility]Y [...] last revised on 2018. Testing performed by: [facility], [address] [place] [address]., [address] Triglycerides 91 <=149 mg/dL [facility] Comment: [...] last revised on 2018. Testing performed by: [address] [address] HDL 59 >=40 mg/dL [facility] Comment: [...] last revised on 2018. Testing performed by: [address] [address] LDL, calculated 56 <=129 mg/dL [facility] [...] last revised on 2018. Testing performed by: [address] [address] Non-HDL Cholesterol 74 mg/dL [facility] Comment: [...] last revised on 2018. Testing performed by: [address] [address] Chol/HDL ratio 2 C[facility]Y Comment:Testing performed by : [address] [address] Blood 10/25/2023 4:27 PM HORSE BUYER 10/25/2023 5:04 PM HORSE BUYER us Scar Medina MD LAB BLOOD ORDERAB LES Final Result [facility] [address] [facility] [place] [address] * TSH (10/25/2023 4:27 PM HORSE BUYER) Thyroid Stimulating Hormone 2.71 0.30 - 4.20 mcIUnit/mL [facility] Comment:Testing performed by : [address] [address] Blood 10/25/2023 4:27 PM HORSE BUYER 10/25/2023 5:04 PM HORSE BUYER us Scar Medina MD LAB BLOOD ORDERAB LES Final Result [facility] [address] [facility] Department [place] [address] * (ABNORMAL) CBC with auto differential (10/25/2023 4:27 PM HORSE BUYER) WBC 13.5(H) 3.8 - 9.9 K/cumm [facility] Comment:Testing performed by : [address] [address] Hgb 14.8 13.0 - 17.5 g/dL [facility] Comment:Testing performed by : [address] [address] Hct 42.5 38.9 - 50.3 % [facility] Comment:Testing performed by : [address] [address] Plt 200 150 - 400 K/cumm [facility] Comment:Testing performed by : [address] [address] MPV 9.0(L) 9.1 - 12.3 fL [facility] Comment:Testing performed by : [address] [address] RBC 4.55 4.30 - 5.80 M/cumm [facility] Comment:Testing performed by : [address] [address] MCV 93.4 81.3 - 96.4 fL [facility] Comment:Testing performed by : [address] [address] MCH 32.5 27.1 - 33.3 pg [facility] Comment:Testing performed by : [address] [address] MCHC 34.8 32.3 - 35.7 g/dL [facility] Comment:Testing performed by : [address] [address] RDW CV 13.2 11.1 - 14.9 % [facility] Comment:Testing performed by : [address] [address] RDW SD 45.8 35.7 - 48.1 fL [facility] Comment:Testing performed by : [address] [address] NRBC abs 0.00 0.00 - 0.01 K/cumm [facility] Comment:Testing performed by : [address] [address] Blood 10/25/2023 4:27 PM HORSE BUYER 10/25/2023 5:04 PM HORSE BUYER Scar Medina MD LAB BLOOD ORDERAB LES Final Result [facility] [address] [facility] Department [place] [address] * (ABNORMAL) Comprehensive metabolic panel (10/25/2023 4:27 PM HORSE BUYER) Sodium 140 135 - 145 mmol/L [facility] Comment:Testing performed by : [address] [address] Potassium, pl 4.2 3.3 - 4.9 mmol/L [facility] Comment:Testing performed by : [address] [address] Chloride 101 97 - 110 mmol/L [facility] Comment:Testing performed by : [address] [address] CO2 24 22 - 32 mmol/L [facility] Comment:Testing performed by : [address] [address] Anion gap 15 2 - 15 mmol/L [facility] Comment:Testing performed by : [address] [address] BUN 10 6 - 25 mg/dL C[facility]STY Comment:Testing performed by : [address] [address] Creatinine 1.00 0.80 - 1.30 mg/dL C[facility]Y Comment:Testing performed by : [address] [address] Glucose 69(L) 70 - 199 mg/dL [facility] Comment: Interpretive Data Fasting glucose [...] was last revised 2022. Testing performed by: [address] [address] Calcium 10.1 8.5 - 10.3 mg/dL [facility] Comment:Testing performed by : [address] [address] Bilirubin, total 0.6 0.1 - 1.2 mg/dL [facility] Comment:Testing performed by : [address] [address] Protein, pl 8.0 6.5 - 8.5 g/dL [facility] Comment:Testing performed by : [address] [address] Albumin 5.0 3.5 - 5.0 g/dL [facility] Comment:Testing performed by : [address] [address] Alk phos 79 40 - 130 Units/L C[facility] Comment:Testing performed by : [address] [address] ALT 13 7 - 55 Units/L [facility] Comment:Testing performed by : [address] [address] AST 28 10 - 50 Units/L [facility] Comment:Testing performed by : [facility], [address] [place] [address]., [address] Blood 10/25/2023 4:27 PM HORSE BUYER 10/25/2023 5:04 PM HORSE BUYER Scar Medina MD LAB BLOOD ORDERAB LES Final Result Performing Organization Address City/[facility] Co de Phone Number CRISTY [address] [address] * HIV 1/2 Antibody plus p24 Antigen Blood (10/25/2023 4:27 PM HORSE BUYER) HIV 1/2 ab + p24 ag Nonreactive Nonreactive [facility] Comment:Nonreactive for HIV- 1 antigen and HIV-1/HIV-2 antibodies. No laboratory evidence of HIV infection. If acute HIV infection is suspected, consider testing for HIV-1 RNA. Current interpretive data was last revised on 22. Blood 10/25/2023 4:27 PM HORSE BUYER 10/25/2023 6:37 PM HORSE BUYER Scar Medina MD LAB MICROBIOLOGY - GENERAL ORDERABLES Final Result Performing Organization Address [facility] Co de Phone Number CRISTY [address] [place] [address] * Hepatitis panel, acute Blood (10/25/2023 4:27 PM HORSE BUYER) Pathologist [facility] Hep A IgM Nonreactive Nonreactive [facility] Comment: [...] Nonreactive Nonreactive [facility] Blood 10/25/2023 4:27 PM HORSE BUYER 10/25/2023 6:37 PM HORSE BUYER Scar Medina MD LAB MICROBIOLOGY - GENERAL ORDERABLES Final Result Performing Organization Address [facility] de Phone Number [facility]RISTY [facility] [place] [address] * N. gonorrhoeae/C. trachomatis Amplification Urine (10/25/2023 4:27 PM HORSE BUYER) C. trachomatis Not Detected Not Detected [facility]STY Comment:Testing performed by : [facility], [address] [place] [address]., [address] N. gonorrhoeae Not Detected Not Detected [facility] Comment: Interpretive Data This assay detects Chlamydia trachomatis and Neisseria gonorrhoeae by nucleic acid amplification testing (NAAT). This assay has been cleared by the [place] Food and Drug administration. The performance characteristics of this test have been verified by the [facility]. The performance characteristics of this test have not been evaluated in individuals less than 14 years of age. Current Interpretive Data last revised 2023. Testing performed by: [facility], [address] [place] [address]., [address] Urine (None) 10/25/2023 4:27 PM HORSE BUYER 10/25/2023 7:32 PM HORSE BUYER Scar Medina MD LAB MICROBIOLOGY - GENERAL ORDERABLES Final Result Performing Organization Address City/[facility] Co de Phone Number [facility] [address] [place] [address] [place] [address] * RPR Blood (10/25/2023 4:27 PM HORSE BUYER) RPR Nonreactive Nonreactive [facility] Comment:Testing performed by : [facility], [address] [facility], [place]., [address] Blood 10/25/2023 4:27 PM HORSE BUYER 10/25/2023 7:34 PM HORSE BUYER Scar Medina MD LAB MICROBIOLOGY - GENERAL ORDERABLES Final Result Performing Organization Address City/[facility]/ZIP Co de Phone Number CRISTY [address] [address] * ECG 12 lead (10/25/2023 3:52 PM HORSE BUYER) Ventricular Rate EKG/Min 69 BPM [facility] Atrial Rate 69 BPM [facility] HI-Interval (MSEC) 114 ms [facility] QRS-Interval (MSEC) 72 ms [facility] QT-Interval (MSEC) 372 ms [facility] QTc 398 ms [facility] P [place] 70 degrees [facility] R [place] -13 degrees [facility] T [place] 37 degrees [facility] Diagnosis Normal sinus rhythm ST-changes When compared with ECG of 12-NOV-2004 00:08, ST-changes are now Confirmed by SULTAN HALL M.D. ([id number]) on 10/25/2023 6:00:40 PM [facility] 10/25/2023 3:52 PM HORSE BUYER 10/25/2023 6:00 PM HORSE BUYER Scar Medina MD ECG ORDERABLES F inal Result [facility] * POC Influenza A/B, COVID-19 antigen (10/25/2023 3:03 PM HORSE BUYER) Influenza A Ag, POC Negative Negative [facility] [place] [address] Influenza B Ag, POC Negative Negative [facility] [place] [address] COVID-19 Ag POC Presumptive Negative Presumptive Negative, Invalid [facility] [place] [address] Nasopharyngeal 10/25/2023 3: 03 PM HORSE BUYER us Scar Meidna MD POINT OF CARE EUSEBIA T ORDERABLES Final Result [facility] [address] documented in this encounter Visit Diagnoses [...] COVID: Suspected 10/25/2023 10/25/2023 10/25/2023 4:54 PM HORSE BUYER documented as of this encounter Care Teams Computer Support Specialist Instructor Relationship Specialty Start Date End Date Scar Medina MD PCP - General Family Medicine 07/27/22 documented as of this encounter
--- OUTSIDE RECORDS SUMMARY | 2024-11-07 14:19 | XMS_ITS | Encounter Summary ---
Author Organization [facility] Healthcare Address [address] [place] [address] Care Team Providers Care Business Support Name Role Phone Clare Kasper MD Primary Care Pro vider Reason for Referral * Cardiology (Routine) - Closed Specialty Diagnoses / Procedures Referred By Litzy mccracken Referred To Contact Diagnoses Palpitations Procedures ECG 12 lead Clare Kasper MD [address] [place] [place] [address] Phone: tel: fax: [address] [phone] Referral ID Status Reason Start Date Expiration Date Visits Re quested Visits Authorized [id number] Closed 10/25/2023 11/23/2024 1 1 EYOR ATTENDANT Reason for Visit * Cardiology (Routine) - Closed Specialty Diagnoses / Procedures Referred By Litzy mccracken Referred To Contact Diagnoses Palpitations Procedures ECG 12 lead Clare Kasper MD [address] [place] [address] Phone: tel: fax: [address] [phone] Referral ID Status Reason Start Date Expiration Date Visits Re quested Visits Authorized [id number] Closed 10/25/2023 11/23/2024 1 1 Encounter Details Date Type Department Care Team (Latest Contact Info) Description 10/25/2023 3:41 PM CONVEYOR ATTENDANT - 10/25/2023 11:59 PM CONVEYOR ATTENDANT Hospital Encounter [facility] Cardiac Testing [address] [place] [address] Palpitations Discharge Disposition: Discharge to home or [...] on file Legal Sex Male 2:37 PM CONVEYOR ATTENDANT Gender Identity Not on file Sexual Orientation [...] Comments ECG 12-LEAD Routine 10/25/2023 3:52 PM CONVEYOR ATTENDANT Palpitations documented in this encounter Results * ECG 12 lead (10/25/2023 3:52 PM CONVEYOR ATTENDANT) Ventricular Rate EKG/Min 69 BPM [facility] Atrial Rate 69 BPM [facility] ND-Interval (MSEC) 114 ms [facility] QRS-Interval (MSEC) 72 ms [facility] QT-Interval (MSEC) 372 ms [facility] QTc 398 ms [facility] P [place] 70 degrees [facility] R [place] -13 degrees [facility] T [place] 37 degrees [facility] Diagnosis Normal sinus rhythm ST-changes When compared with ECG of 12-NOV-2004 00:08, ST-changes are now Confirmed by SULTAN HALL M.D. ([id number]) on 10/25/2023 6:00:40 PM [facility] 10/25/2023 3:52 PM CONVEYOR ATTENDANT 10/25/2023 6:00 PM CONVEYOR ATTENDANT us Clare Kasper MD ECG ORDERABLES F inal Result [facility] documented in this encounter Visit Diagnoses Diagnosis Palpitations documented in this encounter Additional Health Concerns Infection Onset Date Last Indicated Resolved Time COVID: Suspected 10/25/2023 10/25/2023 10/25/2023 4:54 PM CONVEYOR ATTENDANT documented as of this encounter Care Teams Business Support Relationship Specialty Start Date End Date Clare Kasper MD PCP - General Family Medicine 07/27/22 documented as of this encounter
--- OUTSIDE RECORDS SUMMARY | 2024-11-07 14:19 | XMS_ITS | Encounter Summary ---
Author Organization [facility] Healthcare Address [address] [place] [address] Care Team Providers Care Scada Operator Name Role Phone Clare Kasper MD Primary Care Pro vider Reason for Visit * Reason Onset Date Comments Medication Request 08/03/2023 Call Back 08/03/2023 Encounter Details Date Type Department Care Team ([facility] st Contact Info) Description 08/03/2023 Telephone [facility] Primary Care at [address] [phone] Clare Kasper MD [address] [place] [address] Medication Request; Call Back Social History [...] on file 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 Caller???s Call back #: [phone] Does message need to be routed? No [...] sent to: pharmacy on file [id number] Caller???s Callback #: [phone] Additional Comments: NA Does message need to [...] on filedocumented in this encounter Care Teams Scada Operator Relationship Specialty Start Date End Date Clare Kasper MD PCP - General Family Medicine 07/27/22 documented as of this encounter
--- OUTSIDE RECORDS SUMMARY | 2024-11-07 14:19 | XMS_ITS | Encounter Summary ---
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 Gender Identity Not on file [...] 12-LEAD (04/20/2023 7:29 PM CDT) Narrative [facility] - 04/20/2023 7:29 PM CDT Home [...] Lei Griffith MD ECG ORDERABLES Final Result [facility] documented in this encounter Visit Diagnoses Not on filedocumented in this encounter Active and Recently Administered Medications Orders Medications Ordered That Gama ht Not Have Been Administered Count Last Ordered Date First Ordered Date aspirin chewable tablet 324 mg 1 04/20/2023 documented in this encounter Care Teams Interpreter Deaf Relationship Specialty Start Date End Date Clare Kasper MD PCP - General Family Medicine 07/27/22 documented as of this encounter
--- OUTSIDE RECORDS SUMMARY | 2024-11-07 14:19 | XMS_ITS | Encounter Summary ---
Author Organization [facility] Healthcare Address [address] [place] [address] Care Team Providers Care Net Maker Name Role Phone David Feliz MD Primary Care Provide r Encounter Details Date Type Department Care Team (Late st Contact Info) Description 06/24/2021 9:00 AM CDT - 06/24/2021 9:45 AM CDT Surgery [facility]ive [facility] [place] [address] [facility] [address] [place] [address] Noemi Mccoy MD [facility] S [facility] [address] [place] [address] COLONOSCOPY [facility] Surgery Details Date/Time Status Location OR Service Patient Class Case Class Case Type Trauma Case? 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 Room: [facility] 8 Note Status: Finalized Procedure: [...] verified by the physician, the nurse, the crystal growing technician and the photographic laboratory technician in the procedure room. Respiratory Examination: [...] bowel preparation was evaluated using the BBPS ([place] Bowel Preparation Scale) with scores of: Right [...] On: 06/24/2021 9:15 AM Recognized by the [employer] for promoting quality [...] Male Attending MD: Noemi Mccoy M.D. Room: [facility] 8 Note Status: Finalized Procedure: [...] were verified by the physician,the nurse, the crystal growing technician and the photographic laboratory technician in the procedure room. Respiratory Examination: [...] bowel preparation was evaluated using the BBPS ([place] Bowel Preparation Scale)with scores of: Right Colon [...] On: 06/24/2021 9:15 AM Recognized by the [employer] for promoting quality [...] 06/01 documented in this encounter Care Teams Net Maker Relationship Specialty Start Date End Date David Feliz MD PCP - General 04/18/21 07/26/22 documented as of this encounter
--- OUTSIDE RECORDS SUMMARY | 2024-11-07 14:19 | XMS_ITS | Encounter Summary ---
Author Organization [facility] Healthcare Address [address] [place] [address] Care Team Providers Care Dental Financial Coordinator Name Role Phone Clare Kasper MD Primary Care Pro vider Encounter Details Date Type Department Care Team ([facility] Contact Info) Description 09/30/2022 9:35 AM CHANGE MANAGEMENT COORDINATOR Lab [facility] Office Building [address] [address] Routine screening for STI (sexually transmitted infection) [...] on file Legal Sex Male 2:37 PM CHANGE MANAGEMENT COORDINATOR Gender Identity Not on file Sexual [...] PLUS P24 ANTIGEN Routine 09/30/2022 9:42 AM CHANGE MANAGEMENT COORDINATOR Routine screening for STI (sexually transmitted infection) documented in this encounter Results * HIV 1/2 Antibody plus p24 Antigen Blood (09/30/2022 9:42 AM CHANGE MANAGEMENT COORDINATOR) HIV 1/2 ab + p24 ag Nonreactive Nonreactive [facility] Comment: Nonreactive for HIV-1 antigen and HIV-1/HIV-2 antibodies. No laboratory evidence of HIV infection. If acute HIV infection is suspected, consider testing for HIV-1 RNA. Blood 09/30/2022 9:42 AM CHANGE MANAGEMENT COORDINATOR 09/30/2022 12:52 PM CHANGE MANAGEMENT COORDINATOR Clare Kasper MD LAB MICROBIOLOGY - GENERAL ORDERABLES Final Result [facility] [address] [facility] Department [place] [address] documented in this encounter Visit Diagnoses Diagnosis Routine screening for STI (sexually transmitted infection) Screening examination for venereal disease documented in this encounter Care Teams Dental Financial Coordinator Relationship Specialty Start Date End Date Clare Kasper MD PCP - General Family Medicine 07/27/22 documented as of this encounter
--- OUTSIDE RECORDS SUMMARY | 2024-11-07 14:19 | XMS_ITS | Encounter Summary ---
Author Organization [facility] Healthcare Address [address] [place] [address] Care Team Providers Care Press Breaker Name Role Phone Clare Kasper MD Primary Care Pro vider Reason for Visit * Reason Onset Date Comments Medical Question/Miscellaneous 11/02/2023 Encounter Details Date Type Department Care Team ([facility] Contact Info) Description 11/02/2023 Telephone [facility] Medical Group Primary Care at [address] [phone] Clare Kasper MD [address] [place] [address] Medical Question/Miscellaneous Social History Tobacco Use [...] on file 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 Nothing further at this time CIATE ENTERTAINMENT EDITOR * Telephone Encounter - Clare Kasper MD - 11/03/2023 9:26 AM CST Antibiotics Sent to pharmacy. [facility] Kasper CIATE ENTERTAINMENT EDITOR * Telephone Encounter - Joseline Beauchamp MA - 11/02/2023 1:13 PM CST Call Back Caller???s Concern: Patient called for the status of message. He was told it is pending review fromthe Doctor. Does message need to be routed? No CIATE ENTERTAINMENT EDITOR * Telephone Encounter - Magdalena Luevano - [...] also.Please call patient to advise. Pharmacy is [employer] [facility] store in chart. Please see screen shot from visit Does message need to be routed? Yes-Action Needed CIATE ENTERTAINMENT EDITOR documented in this encounter Plan of [...] on filedocumented in this encounter Care Teams Press Breaker Relationship Specialty Start Date End Date Clare Kasper MD PCP - General Family Medicine 07/27/22 documented as of this encounter
--- OUTSIDE RECORDS SUMMARY | 2024-11-07 14:19 | XMS_ITS | Encounter Summary ---
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 73 m2 C[facility]STY GLOVER [...] was last reviewed 2021. Testing performed by: [address] [address] Blood 01/24/2023 3:41 PM CDT 01/24/2023 3:57 PM CDT us Clare Kasper MD LAB BLOOD ORDERAB LES Final Result CRISTY [address] [facility] Department [place] [address] * Comprehensive metabolic panel (01/24/2023 3:41 PM CDT) Sodium 140 135 - 145 mmol/L CRISTY GLOVER Comment:Testing performed by : [address] [address] Potassium, pl 4.0 3.3 - 4.9 mmol/L CRISTY [facility]OVER Comment:Testing performed by : [address], [place]., [address] Chloride 104 97 - 110 mmol/L CRISTY Comment:Testing performed by : [address], [place]., [address] CO2 22 22 - 32 mmol/L CRISTY Comment:Testing performed by : [address], [place]., [address] Anion gap 14 2 - 15 mmol/L CRISTY Comment:Testing performed by : [address], [place]., [address] BUN 10 8 - 25 mg/dL CRISTY Comment:Testing performed by : [address], [place]., [address] Creatinine 0.80 0.80 - 1.30 mg/dL CRISTY Comment:Testing performed by : [address], [place]., [address] Glucose 95 70 - 199 mg/dL CRISTY [...] was last revised 2022. Testing performed by: [address] [address] Calcium 9.5 8.5 - 10.3 mg/dL CRSITY Comment:Testing performed by : [address] [address] Bilirubin, total 0.4 0.1 - 1.2 mg/dL CRISTY Comment:Testing performed by : [address] [address] Protein, pl 7.5 6.5 - 8.5 g/dL CRISTY Comment:Testing performed by : [address] [address] Albumin 4.5 3.5 - 5.0 g/dL CRISTY GLOVER Comment:Testing performed by : [address] [address] Alk phos 77 40 - 130 Units/L CRISTY GLOVER Comment:Testing performed by : [address] [address] ALT 12 7 - 55 Units/L CRISTY GLOVER Comment:Testing performed by : [address] [address] AST 26 10 - 50 Units/L CRISTY Comment:Testing performed by : [address] [address] Blood 01/24/2023 3:41 PM CDT 01/24/2023 3:57 PM CDT Clare Kasper MD LAB BLOOD ORDERAB LES Final Result Performing Organization Address City/State/[facility] Phone Number CRISTY [address] [facility] Department [place] [address] * Lipid panel (01/24/2023 3:41 PM CDT) Pathologist [facility] Cholesterol 137 30 - 199 mg/dL CRISTY [...] revised on 2018. Testing performed by: [address] [address] Triglycerides 77 <=149 mg/dL CRISTY GLOVER Comment: [...] revised on 2018. Testing performed by: [address] [address] HDL 46 >=40 mg/dL CRISTY Comment: Interpretive [...] revised on 2018. Testing performed by: [address] [address] LDL, calculated 76 <=129 mg/dL CRISTY Comment: [...] revised on 2018. Testing performed by: [address] [address] Non-HDL Cholesterol 91 mg/dL CRISTY GLOVER Comment: [...] revised on 2018. Testing performed by: [address] [address] Chol/HDL ratio 3 CRISTY Comment:Testing performed by : [address] [address] Blood 01/24/2023 3:41 PM CDT 01/24/2023 3:57 PM CDT us Clare Kasper MD LAB BLOOD ORDERAB LES Final Result CRISTY GLOVER [address] [facility] [place] [address] * Hemoglobin A1c (01/24/2023 3:41 PM CDT) Hgb A1C 5.5 4.0 - 5.6 % CRISTY Comment:Testing performed by : [address] [address] Estimated Average Glucose 111 mg/dL CRISTY Comment: The ADA recommends reporting an estimated Average Glucose (eAG) with all Hemoglobin A1c results using the equation derived from a study of 507 normal and diabetic adults. ??Minority populations were underrepresented and children were not included. ?? (Diabetes Care 31:8421-7578, 2008). ??The eAG is not equivalent to a fasting glucose. Testing performed by: [facility], [address] [place] [address]., [address] Blood 01/24/2023 3:41 PM CDT 01/24/2023 3:57 PM CDT us Clare Kasper MD LAB BLOOD ORDERAB LES Final Result [facility]STY [address] [facility] [place] [address] documented in this encounter Visit Diagnoses Diagnosis Polyuria Hyperlipidemia, unspecified hyperlipidemia type Primary hypertension Unspecified essential hypertension documented in this encounter Care Teams Risk Management Director Relationship Specialty Start Date End Date Clare Kasper MD PCP - General Family Medicine 07/27/22 documented as of this encounter
--- OUTSIDE RECORDS SUMMARY | 2024-11-07 14:19 | XMS_ITS | Encounter Summary ---
Author Organization [facility] Healthcare Address [address] [place] [address] Care Team Providers Care Second Cook And Baker Name Role Phone David Feliz MD Primary Care Provide r Encounter Details Date Type Department Care Team (Late st Contact Info) Description 03/25/2022 1:45 PM CDT Office Visit [facility] Primary [facility] Medicine Clinic [address] 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 * Attachments The following attachments cannot be sent through Care Everywhere. * Insomnia (Vehicle Return Associate) (Italian) * Insomnia (General Information) (Italian) * How to Stop Smoking (Vehicle Return Associate) (Italian) * Alcohol Use Disorder (Vehicle Return Associate) (Italian) documented in this encounter Ordered Prescriptions Prescription [...] that and any local drug store like [facility]. MEDICAL and SURGICAL HISTORY Past Medical History: [...] sleep documented in this encounter Care Teams Second Cook And Baker Relationship Specialty Start Date End Date David Feliz MD PCP - General 04/18/21 07/26/22 documented as of this encounter
--- OUTSIDE RECORDS SUMMARY | 2024-11-07 14:19 | XMS_ITS | Encounter Summary ---
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
--- OUTSIDE RECORDS SUMMARY | 2024-11-07 14:19 | XMS_ITS | Encounter Summary ---
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 TRACHOMATIS AMPLIFICATION Routine 10/25/2023 4:27 PM RESEARCH DIRECTOR Annual physical exam TRICHOMONAS VAGINALIS PCR Routine 10/25/2023 4:27 PM RESEARCH DIRECTOR EGFR Routine 10/25/2023 4:27 PM RESEARCH DIRECTOR Annual physical exam Primary hypertension Elevated AST (SGOT) DIFFERENTIAL AUTO Routine 10/25/2023 4:2 7 PM RESEARCH DIRECTOR Annual physical exam Thrombocytopenia (HCC) HIV 1/2 ANTIBODY PLUS P24 ANTIGEN Routine 10/25/2023 4:27 PM RESEARCH DIRECTOR Annual physical exam CBC WITH AUTO DIFFERENTIAL Routine 10/25/2023 4:27 PM RESEARCH DIRECTOR Annual physical exam Thrombocytopenia (HCC) HEPATITIS PANEL, ACUTE Routine 10/25/2023 4:27 PM RESEARCH DIRECTOR Annual physical exam RPR Routine 10/25/2023 4:27 PM RESEARCH DIRECTOR Annual physical exam TSH Routine 10/25/2023 4:27 PM RESEARCH DIRECTOR Annual physical exam LIPID PANEL Routine 10/25/2023 4:27 PM RESEARCH DIRECTOR Hyperlipidemia, unspecified hyperlipidemia type COMPREHENSIVE METABOLIC PANEL Routine 10/25/2023 4:27 PM RESEARCH DIRECTOR Annual physical exam Primary hypertension Elevated AST (SGOT) documented in this encounter Results * Trichomonas vaginalis PCR Urine (10/25/2023 4:27 PM RESEARCH DIRECTOR) Trichomonas DNA Not Detected Not Detected CRISTY GLOVER Comment: Interpretive Data This assay detects Trichomonas vaginalis by nucleic acid amplification testing (NAAT). This assay has been cleared by the [place] Food and Drug administration. The performance characteristics of this test have been verified by the [facility] Molecular Infectious Disease laboratory. Excess blood in specimens may be inhibitory and result in false negative results. ??The performance of this test has not been evaluated in women or individuals less than 18 years of age. Current Interpretive Data last revised 2023. Testing performed by: [facility], [address] [facility], [place]., [address] Urine 10/25/2023 4:27 PM RESEARCH DIRECTOR 10/25/2023 9:13 PM RESEARCH DIRECTOR Clare Kasper MD LAB MICROBIOLOGY - GENERAL ORDERABLES Final Result CRISTY [address] [facility] [place] [address] * eGFR (10/25/2023 4:27 PM RESEARCH DIRECTOR) eGFR 90 mL/min/1. 73 m2 CRISTY GLOVER [...] was last reviewed 2021. Testing performed by: [facility], [address] [place] [address]., [address] Blood 10/25/2023 4:27 PM RESEARCH DIRECTOR 10/25/2023 5:04 PM RESEARCH DIRECTOR us Clare Kasper MD LAB BLOOD ORDERAB LES Final Result Performing Organization Address City/[facility]/ZIP Co de Phone Number CRISTY [address] [facility] Department [place] [address] * (ABNORMAL) Differential, auto (10/25/2023 4:27 PM RESEARCH DIRECTOR) Neutrophil abs 8.9(H) 1.5 - 6.5 K/cumm CRISTY Comment:Testing performed by : [address] [address] Imm gran abs 0.0 0.0 - 0.1 K/cumm CRISTY Comment:Testing performed by : [address] [address] Lymphocyte abs 3.3 0.8 - 3.3 K/cumm CRISTY Comment:Testing performed by : [address] [address] Monocyte abs 0.8 0.2 - 0.8 K/cumm CRISTY Comment:Testing performed by : [address] [address] Eosinophil abs 0.4 0.0 - 0.5 K/cumm CRISTY Comment:Testing performed by : [address] [address] Basophil abs 0.1 0.0 - 0.1 K/cumm CRISTY Comment:Testing performed by : [address] [address] Neutrophil pct 65.7 % [facility] Comment: Interpretive Data Percent cell count reference ranges are not reported, since discordance with absolute values may lead to misinterpretation of CBC data. Current Interpretive Data was last revised on 2018. Testing performed by: [address] [address] Imm gran pct 0.2 % [facility] Comment: Interpretive Data Percent cell count reference ranges are not reported, since discordance with absolute values may lead to misinterpretation of CBC data. Current Interpretive Data was last revised on 2018. Testing performed by: [address] [address] Lymphocyte pct 24.6 % [facility] Comment: Interpretive Data Percent cell count reference ranges are not reported, since discordance with absolute values may lead to misinterpretation of CBC data. Current Interpretive Data was last revised on 2018. Testing performed by: [address] [address] Monocyte pct 6.1 % CRISTY Comment: Interpretive Data Percent cell count reference ranges are not reported, since discordance with absolute values may lead to misinterpretation of CBC data. Current Interpretive Data was last revised on 2018. Testing performed by: [address] [address] Eosinophil pct 2.9 % CRISTY Comment: Interpretive Data Percent cell count reference ranges are not reported, since discordance with absolute values may lead to misinterpretation of CBC data. Current Interpretive Data was last revised on 2018. Testing performed by: [address] [address] Basophil pct 0.5 % CRISTY Comment: Interpretive Data Percent cell count reference ranges are not reported, since discordance with absolute values may lead to misinterpretation of CBC data. Current Interpretive Data was last revised on 2018. Testing performed by: [address] [address] Blood 10/25/2023 4:27 PM RESEARCH DIRECTOR 10/25/2023 5:04 PM RESEARCH DIRECTOR Clare Kasper MD LAB BLOOD ORDERAB LES Final Result Performing Organization Address City/[facility]/ZIP Co de Phone Number [address] [place] [address] * RPR Blood (10/25/2023 4:27 PM RESEARCH DIRECTOR) RPR Nonreactive Nonreactive CRISTY Comment:Testing performed by : [facility], [address] [facility], [place]., [address] Blood 10/25/2023 4:27 PM RESEARCH DIRECTOR 10/25/2023 7:34 PM RESEARCH DIRECTOR Clare Kasper MD LAB MICROBIOLOGY - GENERAL ORDERABLES Final Result [address] [place] [address] * N. gonorrhoeae/C. trachomatis Amplification Urine (10/25/2023 4:27 PM RESEARCH DIRECTOR) Pathologist [facility] C. trachomatis Not Detected Not Detected CRISTY Comment:Testing performed by : [facility], [address] [place] [address]., [address] N. gonorrhoeae Not Detected Not Detected CRISTY Comment: Interpretive Data This assay detects Chlamydia trachomatis and Neisseria gonorrhoeae by nucleic acid amplification testing (NAAT). This assay has been cleared by the [place] Food and Drug administration. The performance characteristics of this test have been verified by the [facility]. The performance characteristics of this test have not been evaluated in individuals less than 14 years of age. Current Interpretive Data last revised 2023. Testing performed by: [facility], [address] [place] [address]., [address] Urine (None) 10/25/2023 4:27 PM RESEARCH DIRECTOR 10/25/2023 7:32 PM RESEARCH DIRECTOR us Clare Kasper MD LAB MICROBIOLOGY - GENERAL ORDERABLES Final Result CRISTY [address] [facility] Department [place] [address] * Hepatitis panel, acute Blood (10/25/2023 4:27 PM RESEARCH DIRECTOR) [facility] Hep A IgM Nonreactive Nonreactive [...] Nonreactive Nonreactive CRISTY Blood 10/25/2023 4:27 PM RESEARCH DIRECTOR 10/25/2023 6:37 PM RESEARCH DIRECTOR Clare Kasper MD LAB MICROBIOLOGY - GENERAL ORDERABLES Final Result Performing Organization Address [facility] Co de Phone Number [place] [phone] [facility] [address] * HIV 1/2 Antibody plus p24 Antigen Blood (10/25/2023 4:27 PM RESEARCH DIRECTOR) Pathologist [facility] HIV 1/2 ab + p24 ag Nonreactive Nonreactive [facility] Comment:Nonreactive for HIV- 1 antigen and HIV-1/HIV-2 antibodies. No laboratory evidence of HIV infection. If acute HIV infection is suspected, consider testing for HIV-1 RNA. Current interpretive data was last revised on 22. Blood 10/25/2023 4:27 PM RESEARCH DIRECTOR 10/25/2023 6:37 PM RESEARCH DIRECTOR Clare Kasper MD LAB MICROBIOLOGY - GENERAL ORDERABLES Final Result Performing Organization Address City/[facility] Co de Phone Number [place] [phone] [facility] [place] [address] * TSH (10/25/2023 4:27 PM RESEARCH DIRECTOR) Thyroid Stimulating Hormone 2.71 0.30 - 4.20 mcIUnit/mL CRISTY Comment:Testing performed by : [facility], [address] [place] [address]., [address] Blood 10/25/2023 4:27 PM RESEARCH DIRECTOR 10/25/2023 5:04 PM RESEARCH DIRECTOR us Clare Kasper MD LAB BLOOD ORDERAB LES Final Result CRISTY [address] [facility] Department [place] [address] * Lipid panel (10/25/2023 4:27 PM RESEARCH DIRECTOR) [facility] Cholesterol 133 30 - 199 [...] on 2018. Testing performed by: [facility], [address] [place] [address]., [address] Triglycerides 91 <=149 mg/dL CRISTY Comment: Interpretive [...] last revised on 2018. Testing performed by: [address] [address] HDL 59 >=40 mg/dL CRISTY Comment: Interpretive [...] last revised on 2018. Testing performed by: [address] [address] LDL, calculated 56 <=129 mg/dL CRISTY Comment: [...] last revised on 2018. Testing performed by: [address] [place]., [address] Non-HDL Cholesterol 74 mg/dL CRISTY GLOVER Comment: [...] last revised on 2018. Testing performed by: [address] [address] Chol/HDL ratio 2 CRISTY GLOVER Comment:Testing performed by : [address] [address] Blood 10/25/2023 4:27 PM RESEARCH DIRECTOR 10/25/2023 5:04 PM RESEARCH DIRECTOR Clare Kasper MD LAB BLOOD ORDERAB LES Final Result C[facility]STY [address] [facility] Department of Laboratories [place], [place] [id number] * (ABNORMAL) Comprehensive metabolic panel (10/25/2023 4:27 PM RESEARCH DIRECTOR) Sodium 140 135 - 145 mmol/L CRISTY GLOVER Comment:Testing performed by : [address] [address] Potassium, pl 4.2 3.3 - 4.9 mmol/L CRISTY [facility] Comment:Testing performed by : [address] [address] Chloride 101 97 - 110 mmol/L CRISTY [facility] Comment:Testing performed by : [address] [address] CO2 24 22 - 32 mmol/L CRISTY GL[facility] Comment:Testing performed by : [address] [address] Anion gap 15 2 - 15 mmol/L CRISTY Comment:Testing performed by : [address] [address] BUN 10 6 - 25 mg/dL CRISTY Comment:Testing performed by : [address] [address] Creatinine 1.00 0.80 - 1.30 mg/dL CRISTY Comment:Testing performed by : [address] [address] Glucose 69(L) 70 - 199 mg/dL CRISTY [...] was last revised 2022. Testing performed by: [address] [address] Calcium 10.1 8.5 - 10.3 mg/dL CRISTY Comment:Testing performed by : [address] [address] Bilirubin, total 0.6 0.1 - 1.2 mg/dL CRISTY Comment:Testing performed by : [address] [address] Protein, pl 8.0 6.5 - 8.5 g/dL CRISTY Comment:Testing performed by : [address] [address] Albumin 5.0 3.5 - 5.0 g/dL CRISTY Comment:Testing performed by : [address] [address] Alk phos 79 40 - 130 Units/L CRISTY Comment:Testing performed by : [address] [address] ALT 13 7 - 55 Units/L CRISTY GLOVER Comment:Testing performed by : [address] [address] AST 28 10 - 50 Units/L CRISTY [facility] Comment:Testing performed by : [address] [address] Blood 10/25/2023 4:27 PM RESEARCH DIRECTOR 10/25/2023 5:04 PM RESEARCH DIRECTOR us Clare Kasper MD LAB BLOOD ORDERAB LES Final Result [facility] [place] [address] * (ABNORMAL) CBC with auto differential (10/25/2023 4:27 PM RESEARCH DIRECTOR) WBC 13.5(H) 3.8 - 9.9 K/cumm CRISTY GLOVER Comment:Testing performed by : [address] [address] Hgb 14.8 13.0 - 17.5 g/dL CRISTY [facility] Comment:Testing performed by : [address] [address] Hct 42.5 38.9 - 50.3 % CRISTY GLOVER Comment:Testing performed by : [address] [address] Plt 200 150 - 400 K/cumm CRISTY [facility] Comment:Testing performed by : [address] [address] MPV 9.0(L) 9.1 - 12.3 fL CRISTY [facility] Comment:Testing performed by : [address] [address] RBC 4.55 4.30 - 5.80 M/cumm CRISTY [facility] Comment:Testing performed by : [address] [address] MCV 93.4 81.3 - 96.4 fL CRISTY [facility] Comment:Testing performed by : [address] [place]., [address] MCH 32.5 27.1 - 33.3 pg CRS[facility] GLOVER Comment:Testing performed by : [address] [address] MCHC 34.8 32.3 - 35.7 g/dL CRISTY [facility] Comment:Testing performed by : [address] [address] RDW CV 13.2 11.1 - 14.9 % CRISTY GL[facility] Comment:Testing performed by : [address] [address] RDW SD 45.8 35.7 - 48.1 fL CRISTY [facility] Comment:Testing performed by : [address], [address] NRBC abs 0.00 0.00 - 0.01 K/cumm CRISTY [facility] Comment:Testing performed by : [address], [address] Blood 10/25/2023 4:27 PM RESEARCH DIRECTOR 10/25/2023 5:04 PM RESEARCH DIRECTOR us Clare Kasper MD LAB BLOOD ORDERAB LES Final Result CRISTY [address] [place] [address] documented in this encounter Visit Diagnoses Diagnosis Annual physical exam Routine general medical examination at a health care facility Thrombocytopenia (HCC) Unspecified thrombocytopenia Primary hypertension Unspecified essential hypertension Elevated AST (SGOT) Hyperlipidemia, unspecified hyperlipidemia type documented in this encounter Care Teams Summer Nanny Relationship Specialty Start Date End Date Clare Kasper MD PCP - General Family Medicine 07/27/22 documented as of this encounter
--- OUTSIDE RECORDS SUMMARY | 2024-11-07 14:19 | XMS_ITS | Encounter Summary ---
Author Organization [facility] Address [address] [address] Care Team Providers Care Saw Edge Fuser Circular Name Role Phone Clare Kasper MD Primary Care Pro vider Encounter Details Date Type Department Care Team ([facility] Contact Info) Description 07/11/[address] 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
--- OUTSIDE RECORDS SUMMARY | 2024-11-07 14:19 | XMS_ITS | Encounter Summary ---
Author Organization [facility] Healthcare Address [address] [place] [address] Care Team Providers Care Filter Screen Cleaner Name Role Phone David Feliz MD Primary Care Provide r Encounter Details Date Type Department Care Team (Latest Contact Info) Description 06/24/2021 7:18 AM CDT - 06/24/2021 10:34 AM CDT Hospital Encounter [facility] [address] [facility] [address] [place] [address] Noemi Mccoy MD [facility] [address] [facility] [address] [place] [address] Discharge Disposition: Discharge to home or self [...] file 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 Room: [facility]COPY ROOM 8 Note Status: Finalized [...] verified by the physician, the nurse, the steel post installer and the hazmat technician in the procedure room. Respiratory Examination: [...] bowel preparation was evaluated using the BBPS (Roy Bowel Preparation Scale) with scores of: Right [...] On: 06/24/2021 9:15 AM Recognized by the [employer] for promoting quality [...] Male Attending MD: Noemi Mccoy M.D. Room: [facility] ROOM 8 Note Status: Finalized [...] were verified by the physician,the nurse, the steel post installer and the hazmat technician in the procedure room. Respiratory Examination: [...] bowel preparation was evaluated using the BBPS (Roy Bowel Preparation Scale)with scores of: Right Colon [...] On: 06/24/2021 9:15 AM Recognized by the [employer] for promoting quality [...] 06/01 documented in this encounter Care Teams Filter Screen Cleaner Relationship Specialty Start Date End Date David Feliz MD PCP - General 04/18/21 07/26/22 documented as of this encounter
--- OUTSIDE RECORDS SUMMARY | 2024-11-07 14:19 | XMS_ITS | Encounter Summary ---
Author Organization [facility] Healthcare Address [address] [place] [address] Care Team Providers Care Business Continuity Planner Name Role Phone Clare Kasper MD Primary Care Pro vider Reason for Visit * Reason Comments Alcohol Intoxication Withdrawal Encounter Details Date Type Department Care Team ([facility] Contact Info) Description 03/01/2023 12:32 AM CDT - 03/01/2023 2:52 AM CDT Emergency 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 * Alcohol Dependence (AfterCare(R) Instructions(ER/ED)) (Djiboutian) documented in this encounter Medications at Time [...] symptoms. Last episode of withdrawal seizures were [id number]. Reports drinking beer (tall boys) and vodka, [...] and Affect: Mood normal. Behavior: Behavior normal. [facility] Medical Decision Making 52 yr old male [...] POCT rapid HIV (03/01/2023 2:33 AM CDT) [facility] Rapid HIV, POC Negative Negative Lot Number [id number] QC Control Line Acceptable Blood 03/01/2023 2:33 AM CDT us Lionel Sher MD POINT OF CARE TEST ORDERABLES Final Result * eGFR (03/01/2023 1:23 AM CDT) [facility] eGFR >90 90 - 130 mL/min/1. 73 m2 [facility] Comment: Interpretive Data Reference Interval Normal ?>/= [...] MD LAB BLOOD ORDERABLE S Final Result [facility] [place] [address] * Differential, auto (03/01/2023 1:23 AM CDT) Neutrophil abs 3.0 1.7 - 6.5 K/cumm [facility] Imm gran abs 0.0 0.0 - 0.1 K/cumm [facility] Lymphocyte abs 3.0 0.8 - 3.3 K/cumm [facility] Monocyte abs 0.4 0.2 - 0.8 K/cumm [facility] Eosinophil abs 0.4 0.0 - 0.5 K/cumm [facility] Basophil abs 0.1 0.0 - 0.1 K/cumm [facility] Neutrophil pct 43.4 % [facility] Comment: Interpretive Data Percent cell count reference ranges are not reported, since discordance with absolute values may lead to misinterpretation of CBC data. Current Interpretive Data was last revised on 2018. Imm gran pct 0.1 % [facility] Comment: Interpretive Data Percent cell count reference ranges are not reported, since discordance with absolute values may lead to misinterpretation of CBC data. Current Interpretive Data was last revised on 2018. Lymphocyte pct 43.5 % [facility] Comment: Interpretive Data Percent cell count reference ranges are not reported, since discordance with absolute values may lead to misinterpretation of CBC data. Current Interpretive Data was last revised on 2018. Monocyte pct 6.2 % [facility] Comment: Interpretive Data Percent cell count reference ranges are not reported, since discordance with absolute values may lead to misinterpretation of CBC data. Current Interpretive Data was last revised on 2018. Eosinophil pct 5.9 % [facility] Comment: Interpretive Data Percent cell count reference ranges are not reported, since discordance with absolute values may lead to misinterpretation of CBC data. Current Interpretive Data was last revised on 2018. Basophil pct 0.9 % [facility] Comment: Interpretive Data Percent cell count reference ranges are not reported, since discordance with absolute values may lead to misinterpretation of CBC data. Current Interpretive Data was last revised on 2018. Blood 03/01/2023 1:23 AM CDT 03/01/2023 1:34 AM CDT Lionel Sher MD LAB BLOOD ORDERABLE S Final Result [facility] Department [place] [address] * (ABNORMAL) Comprehensive metabolic panel (03/01/2023 1:23 AM CDT) Sodium 142 135 - 145 mmol/L [facility] Potassium, pl 4.7 3.3 - 4.9 mmol/L [facility] Chloride 103 97 - 110 mmol/L [facility] CO2 28 22 - 32 mmol/L [facility] Anion gap 11 2 - 15 mmol/L [facility] BUN 10 8 - 25 mg/dL [facility] Creatinine 0.92 0.80 - 1.30 mg/dL [facility] Glucose 77 70 - 199 mg/dL [facility] Comment: Interpretive Data Fasting glucose [...] 2022. Calcium 9.3 8.5 - 10.3 mg/dL [facility] Bilirubin, total 0.5 0.1 - 1.2 mg/dL [facility] Protein, pl 7.5 6.5 - 8.5 g/dL [facility] Albumin 4.7 3.5 - 5.0 g/dL [facility] Alk phos 66 40 - 130 Units/L [facility] ALT 46 7 - 55 Units/L [facility] AST 76(H) 10 - 50 Units/L [facility] Blood 03/01/2023 1:23 AM CDT 03/01/2023 1:34 AM CDT Lionel Sher MD LAB BLOOD ORDERABLE S Final Result Performing Organization Address [facility] de Phone Number [facility] Department [place] [address] * (ABNORMAL) CBC with auto differential (03/01/2023 1:23 AM CDT) [facility] WBC 7.0 3.8 - 9.9 K/cumm [facility] Hgb 13.7 13.0 - 17.5 g/dL [facility] Hct 39.3 38.9 - 50.3 % [facility] Plt 136(L) 150 - 400 K/cumm [facility] MPV 9.7 9.1 - 12.3 fL [facility] RBC 4.22(L) 4.30 - 5.80 M/cumm [facility] MCV 93.1 81.3 - 96.4 fL [facility] MCH 32.5 27.1 - 33.3 pg [facility] MCHC 34.9 32.3 - 35.7 g/dL [facility] RDW CV 13.7 11.1 - 14.9 % [facility] RDW SD 46.0 35.7 - 48.1 fL [facility] NRBC abs 0.00 0.00 - 0.01 K/cumm [facility] Blood 03/01/2023 1:23 AM CDT 03/01/2023 1:34 AM CDT Lionel Sher MD LAB BLOOD ORDERABLE S Final Result Performing Organization Address [facility] de Phone Number [facility] Department [place] [address] documented in this encounter Visit Diagnoses Diagnosis [...] as of this encounter Care Teams Business Continuity Planner Relationship Specialty Start Date End Date Clare Kasper MD PCP - General Family Medicine 07/27/22 documented as of this encounter
--- OUTSIDE RECORDS SUMMARY | 2024-11-07 14:20 | XMS_ITS | Encounter Summary ---
Author Organization [facility] Healthcare Address [address] [place] [address] Care Team Providers Care Quick Print Operator Name Role Phone Teresita Painting MD Primary Care Prov ider Encounter Details Date Type Department Care Team (Late st Contact Info) Description 04/22/2020 Orders Only [facility] Primary Care Medicine Clinic [address] [facility] Health [address] [place] [address] Teresita Painting MD [address] [facility] [address] [place] [address] Social History Tobacco Use Types Packs/Day Years Used Date Smoking Tobacco: Every Day Cigarettes Smokeless Tobacco: Never Comments:8 cigs a day Alcohol Use Standard Drinks/Week Comments Yes 0 (1 standard drink = 0.6 oz pur e alcohol) 4 tall boys a day Sex and Gender Information Value Date Recorded Sex Assigned at Not on file 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
--- OUTSIDE RECORDS SUMMARY | 2024-11-07 14:20 | XMS_ITS | Encounter Summary ---
Author Organization [facility] Healthcare Address [address] [place] [address] Care Team Providers Care Canine Deputy Name Role Phone David Feliz MD Primary Care Provide r Reason for Visit * Reason Comments Follow-up Pain toothache, patient b roke tooth on left side Encounter Details Date Type Department Care Team (Late st Contact Info) Description 05/13/2021 1:30 PM CDT Office Visit [facility] Primary Care Medicine Clinic [address] [facility] Health [address] [place] [address] Nyal Bautista MD [address] [facility] [phone] [place] [address] Lionel Busby MD [address] [facility] [place] [address] Open fracture of tooth, initial encounter (Primary [...] on file 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 If you don't hear from [facility] within a week call [phone] to arrange your colonoscopy. We are starting [...] not alreadyestablished with a dentist office: ??? [facility] [place]: Includes Urgent Care and Walk-in cases o [address] [place] [address] o [phone] ??? [facility] o [address] [facility], [place] [address] o ??? [facility] o [address] [place] [address] o documented in this encounter Ordered Prescriptions [...] steps to maintain regimen ACO Care Management Lauar Avery Note: Problem: Medication management Interventions: - [...] documented as of this encounter Care Teams Canine Deputy Relationship Specialty Start Date End Date David Feliz MD PCP - General 04/18/21 07/26/22 documented as of this encounter
--- OUTSIDE RECORDS SUMMARY | 2024-11-07 14:20 | XMS_ITS | Encounter Summary ---
Author Organization [facility] Healthcare Address [address] [place] [address] Care Team Providers Care Mock Up Assembler Name Role Phone Teresita Painting MD Primary Care Prov ider Encounter Details Date Type Department Care Team (Late st Contact Info) Description 10/05/2018 3:15 PM BAND TIER Lab [facility] Outpatient Health [address] [facility] [place] [address] Christiano Heller MD [address] [facility] [address] [place] [address] Anemia, unspecified type Discharge Disposition: Discharge to home or self care Social History Tobacco Use Types Packs/Day Years Used Date Smoking Tobacco: Every Day Cigarettes Smokeless Tobacco: Never Alcohol Use Standard Drinks/Week Comments Yes 0 (1 standard drink = 0.6 oz pur e alcohol) Sex and Gender Information Value Date Recorded Sex Assigned at Not on file Legal Sex Male 2:37 PM BAND TIER Gender Identity Not on file Sexual Orientation [...] DIFFERENTIAL AUTO Routine 10/05/2018 3:1 1 PM BAND TIER Anemia, unspecified type CBC WITH AUTO DIFFERENTIAL Routine 10/05/2018 3:11 PM BAND TIER Anemia, unspecified type documented in this encounter Results * Differential, auto (10/05/2018 3:11 PM BAND TIER) Neutrophil abs 4.7 1.7 - 6.5 K/cumm [facility] Imm gran abs 0.0 0.0 - 0.1 K/cumm [facility] Lymphocyte abs 2.6 0.8 - 3.3 K/cumm [facility] Monocyte abs 0.6 0.2 - 0.8 K/cumm [facility] Eosinophil abs 0.3 0.0 - 0.5 K/cumm [facility] Basophil abs 0.0 0.0 - 0.1 K/cumm [facility] Neutrophil pct 57.1 % [facility] Comment: Interpretive Data Percent cell count reference ranges are not reported, since discordance with absolute values may lead to misinterpretation of CBC data. Current Interpretive Data was last revised on 2018. Imm gran pct 0.2 % [facility] Comment: Interpretive Data Percent cell count reference ranges are not reported, since discordance with absolute values may lead to misinterpretation of CBC data. Current Interpretive Data was last revised on 2018. Lymphocyte pct 31.1 % [facility] Comment: Interpretive Data Percent cell count reference ranges are not reported, since discordance with absolute values may lead to misinterpretation of CBC data. Current Interpretive Data was last revised on 2018. Monocyte pct 7.6 % [facility] Comment: Interpretive Data Percent cell count reference ranges are not reported, since discordance with absolute values may lead to misinterpretation of CBC data. Current Interpretive Data was last revised on 2018. Eosinophil pct 3.6 % [facility] Comment: Interpretive Data Percent cell count reference ranges are not reported, since discordance with absolute values may lead to misinterpretation of CBC data. Current Interpretive Data was last revised on 2018. Basophil pct 0.4 % [facility] Comment: Interpretive Data Percent cell count reference ranges are not reported, since discordance with absolute values may lead to misinterpretation of CBC data. Current Interpretive Data was last revised on 2018. Blood specimen (specimen) 10/05/2018 3:11 PM BAND TIER 10/05/2018 4:12 PM BAND TIER Narrative [facility] - 10/05/2018 4:25 PM BAND TIER Christiano Heller MD LAB BLOOD ORDERABLES Carrie khanna Result [facility] [place] [address] * (ABNORMAL) CBC with auto differential (10/05/2018 3:11 PM BAND TIER) WBC 8.3 3.8 - 9.9 K/cumm [facility] Hgb 14.3 13.0 - 17.5 g/dL [facility] Hct 43.4 38.9 - 50.3 % [facility] Plt 202 150 - 400 K/cumm [facility] MPV 9.7 9.1 - 12.3 fL [facility] RBC 4.55 4.30 - 5.80 M/cumm [facility] MCV 95.4 81.3 - 96.4 fL [facility] MCH 31.4 27.1 - 33.3 pg [facility] MCHC 32.9 32.3 - 35.7 g/dL [facility] RDW CV 13.8 11.1 - 14.9 % [facility] RDW SD 48.6(H) 35.7 - 48.1 fL [facility] NRBC abs 0.00 0.00 - 0.01 K/cumm [facility] Blood specimen (specimen) 10/05/2018 3:11 PM BAND TIER 10/05/2018 4:12 PM BAND TIER Narrative [facility] - 10/05/2018 4:25 PM BAND TIER us Christiano Heller MD LAB BLOOD ORDERABLES Carrie khanna Result [facility] Department [place] [address] documented in this encounter Visit Diagnoses Diagnosis Anemia, unspecified type documented in this encounter Care Teams Mock Up Assembler Relationship Specialty Start Date End Date Teresita Painting MD PCP - General Obstetrics and Gynecology 07/26/18 904/18 documented as of this encounter
--- OUTSIDE RECORDS SUMMARY | 2024-11-07 14:20 | XMS_ITS | Encounter Summary ---
Author Organization [facility] Healthcare Address [address] [place] [address] Care Team Providers Care Insurance Territory Manager Name Role Phone Teresita Painting MD Primary Care Prov ider Encounter Details Date Type Department Care Team (Late st Contact Info) Description 11/10/2020 Telephone [facility] Primary Care Medicine Clinic [address] 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 Giving 8 week course vid D 50k units weekly. Lionel Busby MD GE MASTER documented in this encounter Plan of Treatment [...] on filedocumented in this encounter Care Teams Insurance Territory Manager Relationship Specialty Start Date End Date Teresita Painting MD PCP - General 10/25/19 04/17/21 documented as of this encounter
--- OUTSIDE RECORDS SUMMARY | 2024-11-07 14:20 | XMS_ITS | Encounter Summary ---
Author Organization [facility] Healthcare Address [address] [place] [address] Care Team Providers Care Exceptional Children Teacher Assistant Name Role Phone Teresita Painting MD Primary Care Prov ider Reason for Visit * Reason Onset Date Comments Letter for School/Work 03/13/2021 return to work on Tuesday, 03-16. Encounter Details Date Type Department Care Team (Late st Contact Info) Description 03/13/2021 Telephone [facility] Primary Care Medicine Clinic [address] 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 Pt # [phone] Rico Carrizales [phone] * Telephone Encounter - Teresita Painting MD [...] from work for the week. Rico Carrizales [phone] documented in this encounter Plan of Treatment [...] on filedocumented in this encounter Care Teams Exceptional Children Teacher Assistant Relationship Specialty Start Date End Date Teresita Painting MD PCP - General 10/25/19 04/17/21 documented as of this encounter
--- OUTSIDE RECORDS SUMMARY | 2024-11-07 14:20 | XMS_ITS | Encounter Summary ---
Author Organization [facility] Healthcare Address [address] [place] [address] Care Team Providers Care Recycling Technician Name Role Phone Teresita Painting MD Primary Care Prov ider Encounter Details Date Type Department Care Team (Late st Contact Info) Description 2020 10:10 PM CDT Lab [address] [address] Pre-op testing Social History Tobacco Use Types Packs/Day Years Used Date Smoking Tobacco: Every Day Cigarettes Smokeless Tobacco: Never Comments:8 cigs a day Alcohol Use Standard Drinks/Week Comments Yes 0 (1 standard drink = 0.6 oz pur e alcohol) 4 tall boys a day Sex and Gender Information Value Date Recorded Sex Assigned at Not on file 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 The 2019-Novel Coronavirus [...] CDT 05/13/2020 12:17 AM CDT Narrative [facility] - 05/13/2020 12:01 PM CDT Is the patient experiencing any symptoms consistent with COVID (eg. Fever, cough, shortness of breath)?->No What is the reason for testing?->Screening prior to scheduled (>12 hr) surgery or procedure us Noemi Mccoy MD LAB MICROBIOLOGY - GENERAL O RDERABLES Final Result Performing Organization Address City/State/[facility] Co de Phone Number [facility] Department [place] [address] documented in this encounter Visit Diagnoses Diagnosis Pre-op testing Unspecified pre-operative examination documented in this encounter Care Teams Recycling Technician Relationship Specialty Start Date End Date Teresita Painting MD PCP - General 10/25/19 04/17/21 documented as of this encounter
--- OUTSIDE RECORDS SUMMARY | 2024-11-07 14:20 | XMS_ITS | Encounter Summary ---
Author Organization [facility] Healthcare Address [address] [place] [address] Care Team Providers Care Orchid Grower Name Role Phone Teresita Painting MD Primary Care Prov ider Reason for Visit * Reason Comments Follow-up follow up on platele t count and vitamin d Encounter Details Date Type Department Care Team (Late st Contact Info) Description 11/07/2020 2:20 PM DECORATING SUPERVISOR Office Visit [facility] Primary Care Medicine Clinic [address] [facility] [address] [place], [place] [id number] Nyla Bautista MD [address] [facility] [address] [place] [address] Lionel Busby MD [address] [facility] [address] Vitamin D deficiency (Primary Dx); Thrombocytopenia (CMS/HCC); [...] on file 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2 cm (5' 7 ) 11/07/2020 2:29 PM DECORATING SUPERVISOR Body Mass Index 16.3 11/07/2020 2:29 PM DECORATING SUPERVISOR documented in this encounter Patient Instructions * Patient Instructions* Lionel Busby MD - 11/07/2020 2:20 PM DECORATING SUPERVISOR Please go to the 4th floor for [...] GO TO 4th floor for lab work. RATING SUPERVISOR RATING SUPERVISOR documented in this encounter Ordered Prescriptions Prescription [...] file Gets together: Not on file Attends catholic service: Not on file Active member [...] La O MD at 11/07/2020 8:58 PM DECORATING SUPERVISOR RATING SUPERVISOR RATING SUPERVISOR Associated attestation - Flory De La O MD - 11/07/2020 8:58 PM DECORATING SUPERVISOR I have personally reviewed with Dr. Busby the history, physical examination, laboratory studies andproposed management for Yariel Hill. Together we formulated a clinical diagnosis for each problem and developed a plan for therapy during or immediately after his clinic visit. I agree with the recommended plan of care. * Neelima Chavez RN - 11/07/2020 2:[address] Bubsy given report and went into room to [...] clarification, and then discussed to patient satisfaction. RATING SUPERVISOR documented in this encounter Miscellaneous Notes * Addendum Note - Flory De La O MD - 11/07/2020 2:20 PM CSTAddended by: FLORY DE LA O on: 11/07/2020 08:59 PM Modules accepted: Level of Service RATING SUPERVISOR documented in this encounter Plan of Treatment [...] CBC with auto differential (11/07/2020 3:27 PM DECORATING SUPERVISOR) [facility] WBC 8.0 3.8 - 9.9 K/cumm [facility] Hgb 13.7 13.0 - 17.5 g/dL [facility] Hct 38.6(L) 38.9 - 50.3 % [facility] Plt 207 150 - 400 K/cumm [facility] MPV 9.8 9.1 - 12.3 fL [facility] RBC 4.26(L) 4.30 - 5.80 M/cumm [facility] MCV 90.6 81.3 - 96.4 fL [facility] MCH 32.2 27.1 - 33.3 pg [facility] MCHC 35.5 32.3 - 35.7 g/dL [facility] RDW CV 12.3 11.1 - 14.9 % [facility] RDW SD 40.9 35.7 - 48.1 fL [facility] NRBC abs 0.00 0.00 - 0.01 K/cumm [facility] Blood specimen (specimen) 11/07/2020 3:27 PM DECORATING SUPERVISOR 11/07/2020 4:45 PM DECORATING SUPERVISOR Lionel Busby MD LAB BLOOD ORDERABLES Carrie l Result Performing Organization Address City/[facility]/ZIP Co de Phone Number [facility] [place] [address] * (ABNORMAL) Vitamin D 25 hydroxy (11/07/2020 3:27 PM DECORATING SUPERVISOR) Vitamin D 25-OH 27(L) 30 - 80 ng/mL [facility] Blood specimen (specimen) 11/07/2020 3:27 PM DECORATING SUPERVISOR 11/07/2020 4:45 PM DECORATING SUPERVISOR Lionel Busby MD LAB BLOOD ORDERABLES Carrie l Result Performing Organization Address [facility] Co de Phone Number [facility] [place] [address] documented in this encounter Visit Diagnoses Diagnosis [...] documented as of this encounter Care Teams Orchid Grower Relationship Specialty Start Date End Date Teresita Painting MD PCP - General 10/25/19 04/17/21 documented as of this encounter
--- OUTSIDE RECORDS SUMMARY | 2024-11-07 14:20 | XMS_ITS | Encounter Summary ---
Author Organization [facility] Healthcare Address [address] [place] [address] Care Team Providers Care Still Pump Operator Name Role Phone Teresita Painting MD Primary Care Prov ider Reason for Visit * Reason Comments Sore Throat Withdrawal Encounter Details Date Type Department Care Team (Late Contact Info) Description 12/08/2019 12:19 AM FRUIT OR NUT FARMWORKER - 12/08/2019 1:54 AM FRUIT OR NUT FARMWORKER Emergency [facility] Emergency Department [address] [place] [address] Vivi Falcon MD [address] [facility] [address] [place] [address] Alcohol use (Primary Dx); Sinusitis, unspecified chronicity, [...] on file Legal Sex Male 2:37 PM FRUIT OR NUT FARMWORKER Gender Identity Not on file Sexual Orientation Not on file documented as of this encounter Last Filed Vital Signs Vital Sign Reading Time Taken Comments Blood Pressure 115/74 12/08/2019 1:30 AM FRUIT OR NUT FARMWORKER Pulse 66 12/08/2019 1:30 AM FRUIT OR NUT FARMWORKER Temperature 36.2 ??C (97.2 ??F) 12/07/2019 10:[address] Respiratory Rate 16 12/08/2019 1:30 AM FRUIT OR NUT FARMWORKER Oxygen Saturation 98% 12/08/2019 1:30 AM FRUIT OR NUT FARMWORKER Inhaled Oxygen Concentration - - Weight 58.1 kg (128 lb) 12/07/2019 10:27 PM FRUIT OR NUT FARMWORKER Height 170.2 cm (5' 7 ) 12/07/2019 10:27 PM FRUIT OR NUT FARMWORKER Body Mass Index 20.05 12/07/2019 10:27 PM FRUIT OR NUT FARMWORKER documented in this encounter Discharge Diagnoses Diagnosis [...] sent through Care Everywhere. 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 Vivi Falcon MD 12/08/19 0107 T OR NUT FARMWORKER * Yariel Perez MD PhD - 12/08/2019 [...] Vivi Falcon MD at 12/11/2019 6:07 AM FRUIT OR NUT FARMWORKER T OR NUT FARMWORKER T OR NUT FARMWORKER * Kishore Tran RN - 12/08/2019 12:19 AM CST Bed: ED1-10 Expected date: Expected time: Means of arrival: On Foot Comments: Kishore Tran RN 12/08/19 0019 T OR NUT FARMWORKER * Kim Romero RN - 12/07/2019 10:27 PM CST Patient withdrawal from alcohol, tall boy of beers for about a month now, states he sometimes goes through DT's, last drink was 1400. Calm and cooperative. Sore throat for about three weeks now, productive cough. Denies sick contacts. Back of throat slightly reddened, no swollen lymph nodes. +nightsweats. T OR NUT FARMWORKER documented in this encounter Plan of Treatment [...] AND RSV PCR STAT 12/08/2019 12:28 AM FRUIT OR NUT FARMWORKER XR CHEST PA LATERAL 2 VIEWS ED 12/07/2019 11:43 PM FRUIT OR NUT FARMWORKER documented in this encounter Results * Influenza A/B and RSV PCR Nasopharyngeal (12/08/2019 12:28 AM FRUIT OR NUT FARMWORKER) Influenza A RNA Not Detected Not Detected [facility] Influenza B RNA Not Detected Not Detected [facility] RSV RNA Not Detected Not Detected [facility] Comment: Interpretive Data Testing performed by [facility] ([phone]). This test is performed using the [employer] Xpert Flu/RSV Assay. ??This is a multiplex, real-time reverse transcriptase PCR assay that detects influenza A, influenza B,and respiratory syncytial virus RNA. ??This assay has been cleared by the US Food and Drug Administration, and its performance characteristics have been verified by the [facility]. Interpretive Data last revised 2019 Nasopharyngeal 12/08/2019 12 :28 AM FRUIT OR NUT FARMWORKER 12/08/2019 12:37 AM FRUIT OR NUT FARMWORKER Narrative [facility] - 12/08/2019 1:41 AM FRUIT OR NUT FARMWORKER THE [facility] COLLECTION LOCATION IS Jabari Gandara MD LAB MICROBIOLOGY - GENERA L ORDERABLES Final Result [facility] Department [place] [address] * XR Chest Pa Lateral 2 Vw (12/07/2019 11:43 PM FRUIT OR NUT FARMWORKER) Anatomical Region Laterality Modality Body, Chest N/A Computed Radiogr aphy 12/08/2019 12:0 2 AM FRUIT OR NUT FARMWORKER Impressions 12/08/2019 9:03 AM FRUIT OR NUT FARMWORKER Comparison is made to prior radiograph 01/14/2015. ??The lungs are clear without pneumothorax or pleural effusion. ??The cardiomediastinal silhouette is within normal limits. Dictated by: Pedro Gallagher M.D. Ph.D. The radiology attending physician has personally reviewed this study, and had reviewed and/or edited this written report and agrees with it. Electronically signed by: Shilo Gonzalez M.D. Narrative 12/08/2019 9:03 AM FRUIT OR NUT FARMWORKER EXAMINATION: XR CHEST PA LATERAL 2 VIEWS [...] 12/07/2019 documented in this encounter Care Teams Still Pump Operator Relationship Specialty Start Date End Date Teresita Painting MD PCP - General 10/25/19 04/17/21 documented as of this encounter
--- OUTSIDE RECORDS SUMMARY | 2024-11-07 14:20 | XMS_ITS | Encounter Summary ---
Author Organization [facility] Healthcare Address [address] [place] [address] Care Team Providers Care Mold Loft Worker Name Role Phone Teresita Painting MD Primary Care Prov ider Reason for Visit * Reason Comments Rash occurs after shower, at night, Encounter Details Date Type Department Care Team (Late st Contact Info) Description 09/29/2018 3:00 PM EARLY CHILDHOOD WORKER Office Visit [facility] Primary Care Medicine Clinic [address] [facility] [address] [place], [place] [id number] Christiano Heller MD [address] [place] [address] Teresita Painting MD [address] [facility] [address] [place] [address] Alcohol abuse (Primary Dx); Anemia, unspecified type; [...] on file Legal Sex Male 2:37 PM EARLY CHILDHOOD WORKER Gender Identity Not on file Sexual Orientation Not on file documented as of this encounter Last Filed Vital Signs Vital Sign Reading Time Taken Comments Blood Pressure 157/81 09/29/2018 3:24 PM EARLY CHILDHOOD WORKER Pulse 110 09/29/2018 3:24 PM EARLY CHILDHOOD WORKER Temperature 36.8 ??C (98.3 ??F) 09/29/2018 3:24 PM CS T Respiratory Rate 14 09/29/2018 3:24 PM EARLY CHILDHOOD WORKER n on-labored Oxygen Saturation 99% 09/29/2018 3:24 PM EARLY CHILDHOOD WORKER room air Inhaled Oxygen Concentration - - Weight 49.4 kg (109 lb) 09/29/2018 3:24 PM EARLY CHILDHOOD WORKER Height - - Body Mass Index 17.33 06/17/2017 2:59 PM CDT documented in this encounter Patient Instructions * Patient Instructions* Teresita Painting MD - 09/29/2018 3:00 PM EARLY CHILDHOOD WORKER Images from the original note were not [...] of viruses cause the flu. The viruses environmental change analyst time, so new vaccines are made each [...] refuse treatment. The above information is an psychological aide only. It is not intended as medical advice for individual conditions or treatments. Talk to your doctor, nurse or pharmacist before following any medical regimen to see if it is safe and effective for you. ?? 2016 [employer] Information is for End User's use only and may not be sold, redistributed or otherwise used for commercial purposes. All illustrations and images included in CareNotes?? are the copyrighted property of [employer]. or [employer]. Pt arrived ambulating with a steady gait, requires no assistance. Pt was discharged with a steady gait. Y CHILDHOOD WORKER Y CHILDHOOD WORKER documented in this encounter Ordered Prescriptions Prescription [...] not diaphoretic. No erythema. Small area of material lister discoloration on left outer thigh. No erythema [...] eating a lot of salty food (Abdi's, telugu fries, chips, soda). Identified a couple of [...] when able. Leigha Painting MD Internal Medicine PGY-7 Resident Physician Department of Medicine [facility] Primary [facility] [address] [place] [address] [address], [address] [place] [address] Attending Notes: 48 yo with HTN, alcohol abuse, smoking, anemia here for follow up. # EtOH use - binge drinks 6 days in a roll, wants to stop drinking. # HTN - not taking meds. 157/81, restart meds. # Anemia - check CBC. # Vitamin D def - repletion # HM - order C-scope. Cosigned by Gage Ragland MD at 10/02/2018 11:46 AM EARLY CHILDHOOD WORKER Y CHILDHOOD WORKER Y CHILDHOOD WORKER Associated attestation - Gage Ragland MD - 10/02/2018 11:46 AM EARLY CHILDHOOD WORKER I have seen and examined the patient. [...] Reminders @MD@ Resident Physician Department of Medicine [facility] Primary Care Medicine [facility] [address] [place] [address] [address], [address] [place] [address] Y CHILDHOOD WORKER documented in this encounter Miscellaneous Notes * Assessment & Plan Note - Teresita Painting MD - 09/29/2018 5:38 PM CSTAssociated Problem(s): Annual physical exam Flu shot and referral for colonoscopy today Y CHILDHOOD WORKER * Assessment & Plan Note - Teresita [...] he ought to present to the ED. Y CHILDHOOD WORKER Y CHILDHOOD WORKER * Assessment & Plan Note - Teresita Painting MD - 09/29/2018 5:29 PM CSTAssociated Problem(s): Sinus congestion (Resolved 07/06/2019) Mild sinus congestion today. No indication for further workup or antibiotics. -Fluticasone nasal spray for 2 weeks to a month Y CHILDHOOD WORKER * Assessment & Plan Note - Teresita [...] pharmacologic therapy for him, chantix vs wellbutrin. Y CHILDHOOD WORKER * Assessment & Plan Note - Teresita Painting MD - 09/29/2018 5:26 PM CSTAssociated Problem(s): Anemia Mild anemia with last Hb 12.9 (from 12/2016). Folate, B12, Iron panel normal. -CBC today Y CHILDHOOD WORKER * Assessment & Plan Note - Teresita Painting MD - 09/29/2018 5:25 PM CSTAssociated Problem(s): Vitamin D deficiency (Resolved 04/23/2021) Vitamin D 18 on 05/2018 labs, will start 50,000 units vit D weekly today. Y CHILDHOOD WORKER * Assessment & Plan Note - Teresita [...] increase as needed at his next visit. Y CHILDHOOD WORKER documented in this encounter Plan of Treatment [...] CBC with auto differential (10/05/2018 3:11 PM EARLY CHILDHOOD WORKER) WBC 8.3 3.8 - 9.9 K/cumm [facility] Hgb 14.3 13.0 - 17.5 g/dL [facility] Hct 43.4 38.9 - 50.3 % [facility] Plt 202 150 - 400 K/cumm [facility] MPV 9.7 9.1 - 12.3 fL [facility] RBC 4.55 4.30 - 5.80 M/cumm [facility] MCV 95.4 81.3 - 96.4 fL [facility] MCH 31.4 27.1 - 33.3 pg [facility] MCHC 32.9 32.3 - 35.7 g/dL [facility] RDW CV 13.8 11.1 - 14.9 % [facility] RDW SD 48.6(H) 35.7 - 48.1 fL [facility] NRBC abs 0.00 0.00 - 0.01 K/cumm [facility] Blood specimen (specimen) 10/05/2018 3:11 PM EARLY CHILDHOOD WORKER 10/05/2018 4:12 PM EARLY CHILDHOOD WORKER Narrative [facility] - 10/05/2018 4:25 PM EARLY CHILDHOOD WORKER Christiano Heller MD LAB BLOOD ORDERABLES Carrie khanna Result [facility] Department [place] [address] documented in this encounter Visit Diagnoses Diagnosis [...] documented as of this encounter Care Teams Mold Loft Worker Relationship Specialty Start Date End Date Teresita Painting MD PCP - General Obstetrics and Gynecology 07/26/1807/02 documented as of this encounter
--- OUTSIDE RECORDS SUMMARY | 2024-11-07 14:20 | XMS_ITS | Encounter Summary ---
Author Organization [facility] Address [address] [facility] [address] [place] [address] Care Team Providers Care Ship Superintendent Name Role Phone Darius Fernández MD Primary Care Provider [phone] Reason for Visit * Reason Onset Date Comments roni-test Results 06/20/2017 Encounter Details Date Type Department Care Team ([facility] Contact Info) Description 06/20/2017 Telephone [facility] at the [address] [place] [address] Darius Fernández MD [address] [place] [address] [address] [place], [place] [id number] roni-test Results Social History Tobacco Use Types Packs/Day Years Used Date Smoking Tobacco: Every Day Cigarettes Smokeless Tobacco: Never Alcohol Use Standard Drinks/Week Comments Yes 0 (1 standard drink = 0.6 oz pur e alcohol) Sex and Gender Information Value Date Recorded Sex Assigned at Not on file Legal Sex Male 2:37 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 ? ACC# Date Time Exam ?? [id number] Jun 17, 2017 15:49:00 [id number] Hand minimum 3 views L ?? EXAMINATION: [...] test: 06/17/17 Where test was performed: [facility] [place] [facility] Additional Questions/Comments: Patient called to request results. Please assist documented in this encounter Plan of Treatment Not on file documented as of this encounter Visit Diagnoses Not on filedocumented in this encounter Care Teams Ship Superintendent Relationship Specialty Start Date End Date Darius Fernández MD [facility] [address] Zach ESCOBAR [address] [place] [id number] PCP - General 01/28/17 06/08/18 documented as of this encounter
--- OUTSIDE RECORDS SUMMARY | 2024-11-07 14:20 | XMS_ITS | Encounter Summary ---
Author Organization [facility] Address [address] [place] [address] Care Team Providers Care Brewery Worker Name Role Phone Teresita Painting MD Primary Care Prov ider Encounter Details Date Type Department Care Team (Late st Contact Info) Description 06/18/2020 4:[address] [facility] [address] [place] [address] [place] [address] Healthcare maintenance; Essential hypertension Social History Tobacco Use Types Packs/Day Years Used Date Smoking Tobacco: Every Day Cigarettes Smokeless Tobacco: Never Comments:8 cigs a day Alcohol Use Standard Drinks/Week Comments Yes 0 (1 standard drink = 0.6 oz pur e alcohol) occasionally Sex and Gender Information Value Date Recorded Sex Assigned at Not on file Legal Sex Male 2:37 PM CAT DRIVER Gender Identity Not on file Sexual [...] Eosinophil abs 0.2 0.0 - 0.5 K/cumm [facility] Basophil abs 0.1 0.0 - 0.1 K/cumm [facility] Neutrophil pct 62.6 % [facility] Comment: Interpretive Data Percent cell count reference ranges are not reported, since discordance with absolute values may lead to misinterpretation of CBC data. Current Interpretive Data was last revised on 2018. Imm gran pct 0.3 % [facility] Comment: Interpretive Data Percent cell count reference ranges are not reported, since discordance with absolute values may lead to misinterpretation of CBC data. Current Interpretive Data was last revised on 2018. Lymphocyte pct 27.3 % [facility] Comment: Interpretive Data Percent cell count reference ranges are not reported, since discordance with absolute values may lead to misinterpretation of CBC data. Current Interpretive Data was last revised on 2018. Monocyte pct 6.7 % [facility] Comment: Interpretive Data Percent cell count reference ranges are not reported, since discordance with absolute values may lead to misinterpretation of CBC data. Current Interpretive Data was last revised on 2018. Eosinophil pct 2.4 % [facility] Comment: Interpretive Data Percent cell count reference ranges are not reported, since discordance with absolute values may lead to misinterpretation of CBC data. Current Interpretive Data was last revised on 2018. Basophil pct 0.7 % [facility] Comment: Interpretive Data Percent cell count reference ranges are not reported, since discordance with absolute values may lead to misinterpretation of CBC data. Current Interpretive Data was last revised on 2018. Blood specimen (specimen) 06/18/2020 4:46 PM CDT 06/18/2020 5:13 PM CDT us Francisco Goodson MD LAB BLOOD ORDERABLES Final Result [facility] Department [place] [address] * (ABNORMAL) CBC with auto differential (06/18/2020 4:46 PM CDT) [facility] WBC 7.1 3.8 - 9.9 K/cumm [facility] Hgb 13.7 13.0 - 17.5 g/dL [facility] Hct 41.1 38.9 - 50.3 % [facility] Plt 126(L) 150 - 400 K/cumm [facility] MPV 10.3 9.1 - 12.3 fL [facility] RBC 4.32 4.30 - 5.80 M/cumm [facility] MCV 95.1 81.3 - 96.4 fL [facility] MCH 31.7 27.1 - 33.3 pg [facility] MCHC 33.3 32.3 - 35.7 g/dL [facility] RDW CV 13.7 11.1 - 14.9 % [facility] RDW SD 48.7(H) 35.7 - 48.1 fL [facility] NRBC abs 0.00 0.00 - 0.01 K/cumm [facility] Blood specimen (specimen) 06/18/2020 4:46 PM CDT 06/18/2020 5:13 PM CDT Francisco Goodson MD LAB BLOOD ORDERABLES Final Result [facility] Department [place] [address] * Comprehensive metabolic panel (06/18/2020 4:46 PM CDT) [facility] Sodium 139 135 - 145 mmol/L [facility] Potassium, pl 4.4 3.3 - 4.9 mmol/L [facility] Chloride 102 97 - 110 mmol/L [facility] CO2 28 22 - 32 mmol/L [facility] Anion gap 9 2 - 15 mmol/L [facility] BUN 11 8 - 25 mg/dL [facility] Creatinine 1.01 0.80 - 1.30 mg/dL [facility] Glucose 72 70 - 199 mg/dL [facility] Comment: Interpretive Data Fasting glucose >/= [...] 2017. Calcium 9.5 8.5 - 10.3 mg/dL [facility] Bilirubin, total 0.5 0.1 - 1.2 mg/dL [facility] Protein, pl 7.5 6.5 - 8.5 g/dL [facility] Albumin 4.8 3.5 - 5.0 g/dL [facility] Alk phos 48 40 - 130 Units/L [facility] ALT 17 7 - 55 Units/L [facility] AST 28 10 - 50 Units/L [facility] Blood specimen (specimen) 06/18/2020 4:46 PM CDT 06/18/2020 5:13 PM CDT Francisco Goodson MD LAB BLOOD ORDERABLES Final Result [facility] Department [place] [address] * Hemoglobin A1c (06/18/2020 4:46 PM CDT) Hgb A1C 4.9 4.0 - 5.6 % [facility] Estimated Average Glucose 94 mg/dL [facility] Comment: The ADA recommends reporting an estimated Average Glucose (eAG) with all Hemoglobin A1c results using the equation derived from a study of 507 normal and diabetic adults. ??Minority populations were underrepresented and children were not included. ?? (Diabetes Care 31:5570-2254, 2008). ??The eAG is not equivalent to a fasting glucose. Blood specimen (specimen) 06/18/2020 4:46 PM CDT 06/18/2020 5:13 PM CDT Francisco Goodson MD LAB BLOOD ORDERABLES Final Result Performing Organization Address [facility] [place] [address] * HIV 1/2 Antibody plus p24 Antigen (06/18/2020 4:46 PM CDT) HIV 1/2 ab + p24 ag Nonreactive Nonreactive [facility] Comment: Nonreactive for HIV-1 antigen and HIV-1/HIV-2 antibodies. No laboratory evidence of HIV infection. If acute HIV infection is suspected, consider testing for HIV-1 RNA. Blood specimen (specimen) 06/18/2020 4:46 PM CDT 06/18/2020 5:13 PM CDT Francisco Goodson MD LAB MICROBIOLOGY - GENERAL ORDERABLES Final Result Performing Organization Address [facility] de Phone Number [facility] [place] [address] * Lipid panel (06/18/2020 4:46 PM CDT) [...] revised on 2018. HDL 76 >=40 mg/dL [facility] Comment: Interpretive Data Ages < or [...] 2018. LDL, calculated 79 <=129 mg/dL [facility] Comment: Interpretive Data Ages < or = [...] 2018. Chol/HDL ratio 2 [facility] Blood specimen (specimen) 06/18/2020 4:46 PM CDT 06/18/2020 5:13 PM CDT us Francisco Goodson MD LAB BLOOD ORDERABLES Final Result Performing Organization Address City/State/[facility] Co de Phone Number [facility] Department [place] [address] documented in this encounter Visit Diagnoses Diagnosis Healthcare maintenance Essential hypertension Unspecified essential hypertension documented in this encounter Care Teams Brewery Worker Relationship Specialty Start Date End Date Teresita Painting MD PCP - General 10/25/19 04/17/21 documented as of this encounter
--- OUTSIDE RECORDS SUMMARY | 2024-11-07 14:20 | XMS_ITS | Encounter Summary ---
Author Organization [facility] Healthcare Address [address] [place] [address] Care Team Providers Care Game Operator Name Role Phone Teresita Painting MD Primary Care Prov ider Encounter Details Date Type Department Care Team (Late st Contact Info) Description 05/14/2020 10:59 AM CDT Anesthesia Event 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 Postoperative Plan: Patient's planned disposition post procedure is Outpatient. Informed Consent: Discussed plan with SAND MILLER. Anesthesia plan and risks discussed with patient. [...] mL/hr documented in this encounter Care Teams Game Operator Relationship Specialty Start Date End Date Teresita Painting MD PCP - General 10/25/19 04/17/21 documented as of this encounter
--- OUTSIDE RECORDS SUMMARY | 2024-11-07 14:20 | XMS_ITS | Encounter Summary ---
Author Organization [facility] Address [address] [place] [address] Phone Care Team Providers Care Steel Die Engraver Name Role Phone Teresita Painting MD Primary Care Prov ider Encounter Details Date Type Department Care Team (Late st Contact Info) Description 05/21/2020 Telephone [facility] Gastroenterology [address] [facility] 8th [place] [address] [place] [phone] Beckie Gustafson Social History Tobacco Use Types Packs/Day Years Used Date Smoking Tobacco: Every Day Cigarettes Smokeless Tobacco: Never Comments:8 cigs a day Alcohol Use Standard Drinks/Week Comments Yes 0 (1 standard drink = 0.6 oz pur e alcohol) occasionally Sex and Gender Information Value Date Recorded Sex Assigned at Not on file Legal Sex Male 2:37 PM SHELL MOLDER Gender Identity Not on file Sexual Orientation [...] on filedocumented in this encounter Care Teams Steel Die Engraver Relationship Specialty Start Date End Date Teresita Painting MD PCP - General 10/25/19 04/17/21 documented as of this encounter
--- OUTSIDE RECORDS SUMMARY | 2024-11-07 14:20 | XMS_ITS | Encounter Summary ---
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 The 2019-Novel Coronavirus [...] CDT 05/13/2020 12:17 AM CDT Narrative [facility] - 05/13/2020 12:01 PM CDT Is the patient experiencing any symptoms consistent with COVID (eg. Fever, cough, shortness of breath)?->No What is the reason for testing?->Screening prior to scheduled (>12 hr) surgery or procedure us Noemi Mccoy MD LAB MICROBIOLOGY - GENERAL O RDERABLES Final Result [facility] Department [place] [address] documented in this encounter Visit Diagnoses Diagnosis Pre-op testing- Primary Unspecified pre-operative examination Pre-op testing Unspecified pre-operative examination documented in this encounter Care Teams Clarity Specialists Relationship Specialty Start Date End Date Teresita Painting MD PCP - General 10/25/19 04/17/21 documented as of this encounter
--- OUTSIDE RECORDS SUMMARY | 2024-11-07 14:20 | XMS_ITS | Encounter Summary ---
Author Organization [facility] Address [address] [place] [address] Care Team Providers Care Marriage And Family Teacher Name Role Phone Darius Fernández MD Primary Care Provider [phone] Reason for Visit * Reason Comments Hospital Follow Up Insect Bite L hand Encounter Details Date Type Department Care Team (Late Contact Info) Description 06/17/2017 2:45 PM CDT Office Visit [facility] at the [address] [place] [address] Darius Fernández MD [address] [place] [address] [address] [place] [address] Left hand pain (Primary Dx) Social History Tobacco Use Types Packs/Day Years Used Date Smoking Tobacco: Every Day Cigarettes Smokeless Tobacco: Never Alcohol Use Standard Drinks/Week Comments Yes 0 (1 standard drink = 0.6 oz pur e alcohol) Sex and Gender Information Value Date Recorded Sex Assigned at Not on file 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
--- OUTSIDE RECORDS SUMMARY | 2024-11-07 14:20 | XMS_ITS | Encounter Summary ---
Author Organization [facility] Healthcare Address [address] [place] [address] Care Team Providers Care District Court Reporter Name Role Phone Teresita Painting MD Primary Care Prov ider Reason for Visit * Reason Onset Date Comments Med Refill 04/02/2020 Encounter Details Date Type Department Care Team (Late st Contact Info) Description 04/02/2020 Telephone [facility] [address] [facility] [address] [place] [address] Teresita Painting MD [address] [place], [place] [id number] Med Refill Social History Tobacco Use Types Packs/Day Years Used Date Smoking Tobacco: Every Day Cigarettes Smokeless Tobacco: Never Comments:8 cigs a day Alcohol Use Standard Drinks/Week Comments Yes 0 (1 standard drink = 0.6 oz pur e alcohol) 4 tall boys a day Sex and Gender Information Value Date Recorded Sex Assigned at Not on file Legal Sex Male 2:37 PM DEAN OF 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 Patient is requesting a new script for Vit D. He said you put it in your notes in 2018 but it was never called into pharmacy. Thanks, Rico [phone] documented in this encounter Plan of Treatment [...] on filedocumented in this encounter Care Teams District Court Reporter Relationship Specialty Start Date End Date Teresita Painting MD PCP - General 10/25/19 04/17/21 documented as of this encounter
--- OUTSIDE RECORDS SUMMARY | 2024-11-07 14:20 | XMS_ITS | Encounter Summary ---
Author Organization [facility] Healthcare Address [address] [place] [address] Care Team Providers Care Police Justice Name Role Phone Teresiat Painting MD Primary Care Prov ider Encounter Details Date Type Department Care Team (Late st Contact Info) Description 04/02/2020 Orders Only Internal Medicine Teresita Painting MD [address] [facility] [address] [place] [address] Social History Tobacco Use Types Packs/Day Years Used Date Smoking Tobacco: Every Day Cigarettes Smokeless Tobacco: Never Comments:8 cigs a day Alcohol Use Standard Drinks/Week Comments Yes 0 (1 standard drink = 0.6 oz pur e alcohol) 4 tall boys a day Sex and Gender Information Value Date Recorded Sex Assigned at Not on file 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
--- OUTSIDE RECORDS SUMMARY | 2024-11-07 14:20 | XMS_ITS | Encounter Summary ---
Author Organization [facility] Facility Care Team Providers Care Admission Discharge Rn Name Role Phone Teresita Painting MD Primary [...] on file Legal Sex Male 2:37 PM CANVAS CUTTER HAND Gender Identity Not on file Sexual [...] on filedocumented in this encounter Care Teams Admission Discharge Rn Relationship Specialty Start Date End Date Teresita Painting MD PCP - General 10/25/19 04/17/21 documented as of this encounter
--- OUTSIDE RECORDS SUMMARY | 2024-11-07 14:20 | XMS_ITS | Encounter Summary ---
Author Organization [facility] Address [address] [place] [address] Phone Care Team Providers Care Commercial Technician Name Role Phone David Feliz MD Primary Care Provide r Encounter Details Date Type Department Care Team (Late st Contact Info) Description 05/01/2021 Telephone [facility] Gastroenterology [facility] [facility] 8th [place] [address] [place] [address] Laura Carlisle RN Social History Tobacco Use Types Packs/Day Years Used Date Smoking Tobacco: Every Day Cigarettes Smokeless Tobacco: Never Comments:8 cigs a day Alcohol Use Standard Drinks/Week Comments Yes 0 (1 standard drink = 0.6 oz pur e alcohol) occasionally Sex and Gender Information Value Date Recorded Sex Assigned at Not on file 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
--- OUTSIDE RECORDS SUMMARY | 2024-11-07 14:20 | XMS_ITS | Encounter Summary ---
Author Organization [facility] Healthcare Address [address] [place] [address] Care Team Providers Care Odd Shoe Examiner Name Role Phone Teresita Painting MD Primary Care Prov ider Reason for Visit * Reason Comments Follow-up Encounter Details Date Type Department Care Team (Late st Contact Info) Description 07/06/2019 2:15 PM CDT Office Visit [facility] Primary Care Medicine Clinic [address] [facility] [address] [place], [place] [phone] Christiano Heller MD [address] [facility] [address] [place] [address] Teresita Painting MD [address] [facility] [address] [place] [address] Essential hypertension (Primary Dx); Vitamin D deficiency; [...] file 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 trachomatis Not Detected Not Detected [facility] N. gonorrhoeae Not Detected Not Detected [facility] Comment: Interpretive Data Testing performed by the [facility]. This assay detects Chlamydia trachomatis [...] on 2018. Source- Genital, Urine Urine [facility] Urine 07/06/2019 5:02 PM CDT 07/06/2019 6:51 PM CDT us Christiano Heller MD LAB MICROBIOLOGY - GENERA L ORDERABLES Final Result [facility] [address] [place] [address] * CBC with auto differential (07/06/2019 3:47 PM CDT) WBC 8.2 3.8 - 9.9 K/cumm [facility] Hgb 15.3 13.0 - 17.5 g/dL [facility] Hct 44.3 38.9 - 50.3 % [facility] Plt 236 150 - 400 K/cumm [facility] MPV 9.6 9.1 - 12.3 fL [facility] RBC 4.82 4.30 - 5.80 M/cumm [facility] MCV 91.9 81.3 - 96.4 fL [facility] MCH 31.7 27.1 - 33.3 pg [facility] MCHC 34.5 32.3 - 35.7 g/dL [facility] RDW CV 12.0 11.1 - 14.9 % [facility] RDW SD 40.3 35.7 - 48.1 fL [facility] NRBC abs 0.00 0.00 - 0.01 K/cumm [facility] Blood specimen (specimen) 07/06/2019 3:47 PM CDT 07/06/2019 4:05 PM CDT Christiano Heller MD LAB BLOOD ORDERABLES Carrie l Result Performing Organization Address City/[facility]/ZIP Co de Phone Number [address] [phone] * RPR (07/06/2019 3:47 PM CDT) RPR Nonreactive Nonreactive [facility] Blood specimen (specimen) 07/06/2019 3:47 PM CDT 07/06/2019 4:05 PM CDT Christiano Heller MD LAB MICROBIOLOGY - GENERA L ORDERABLES Final Result Performing Organization Address [facility]/ZIP Co de Phone Number [address] [address] * HIV 1/2 Antibody plus p24 Antigen (07/06/2019 3:47 PM CDT) Pathologist [facility] HIV 1/2 ab + p24 ag Nonreactive Nonreactive [facility] Comment: Nonreactive for HIV-1 antigen and HIV-1/HIV-2 antibodies. No laboratory evidence of HIV infection. If acute HIV infection is suspected, consider testing for HIV-1 RNA. Blood specimen (specimen) 07/06/2019 3:47 PM CDT 07/06/2019 4:05 PM CDT Christiano Heller MD LAB MICROBIOLOGY - GENERA L ORDERABLES Final Result Performing Organization Address [facility] de Phone Number [address] [address] * (ABNORMAL) Vitamin D 25 hydroxy (07/06/2019 3:47 PM CDT) Vitamin D 25-OH 16(L) 30 - 80 ng/mL [facility] Blood specimen (specimen) 07/06/2019 3:47 PM CDT 07/06/2019 4:05 PM CDT Christiano Heller MD LAB BLOOD ORDERABLES Carrie l Result Performing Organization Address [facility] Phone Number [address] [address] * (ABNORMAL) Lipid panel (07/06/2019 3:47 PM CDT) Cholesterol 204(H) 30 - 199 mg/dL [facility] Comment: Interpretive Data Ages < [...] revised on 2018. Triglycerides 101 <=149 mg/dL [facility] Comment: Interpretive Data Ages < [...] revised on 2018. HDL 69 >=40 mg/dL [facility] Comment: Interpretive Data Ages < [...] on 2018. LDL, calculated 115 <=129 mg/dL [facility] Comment: Interpretive Data Ages < [...] LAB BLOOD ORDERABLES Carrie khanna Result [facility] [address] [place] [address] documented in this encounter Visit Diagnoses Diagnosis Essential hypertension- Primary Unspecified essential hypertension Vitamin D deficiency Seasonal allergic rhinitis, unspecified trigger Healthcare maintenance documented in this encounter Orders Case Request Count Last Ordered Date First Orde red Date GI DIRECT ACCESS CASE REQUEST 1 07/06/2019 documented in this encounter Care Teams Odd Shoe Examiner Relationship Specialty Start Date End Date Teresita Painting MD PCP - General Obstetrics and Gynecology 07/26/1807/02 documented as of this encounter
--- OUTSIDE RECORDS SUMMARY | 2024-11-07 14:20 | XMS_ITS | Encounter Summary ---
Author Organization [facility] Healthcare Address [address] [place] [address] Care Team Providers Care Cloth Washer Back Tender Name Role Phone Hung Gray MD Primary Care Provider [phone] Encounter Details Date Type Department Care Team (Late st Contact Info) Description 06/17/2017 3:38 PM CDT - 06/17/2017 11:59 PM T Hospital Encounter [facility] OP INTERIM [phone] Hung Gray MD [facility] [facility] [address] S[address] [phone] Left hand pain Discharge Disposition: Discharge to home or self care Social History Tobacco Use Types Packs/Day Years Used Date Smoking Tobacco: Every Day Cigarettes Smokeless Tobacco: Never Alcohol Use Standard Drinks/Week Comments Yes 0 (1 standard drink = 0.6 oz pur e alcohol) Sex and Gender Information Value Date Recorded Sex Assigned at Not on file 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 ACC# ??Date Time ??Exam [id number] Jun 17, 2017 15:49:00 72858 Hand minimum 3 views L EXAMINATION: ?Left [...] VERNON M.D. on Jun 17 2017 ??4:51P [id number] [facility] Order ID: [id number] Procedure Note Miscellaneous, Not In File / Provider, MD Rhett - 06/17/2017 HUNG VERNON M.D. TANG DYSON M.D. FINAL REPORT The radiology attending physician has personally reviewed this study, and has reviewed and/or edited this written report and agrees with it. ACC# Date Time Exam [id number] Jun 17, 2017 15:49:00 70549 Hand minimum 3 views L EXAMINATION: Left [...] VERNON M.D. on Jun 17 2017 4:51P [id number] [facility] Order ID: [id number] us Not In File Miscellaneous IMG XR PROCEDURES Carrie l Result documented in this encounter Visit Diagnoses Diagnosis Left hand pain Pain in soft tissues of limb documented in this encounter Care Teams Cloth Washer Back Tender Relationship Specialty Start Date End Date Hung Gray MD [facility] [facility] [address] Zach ESCOBAR [address] [place] [id number] PCP - General 01/28/17 06/08/18 documented as of this encounter
--- OUTSIDE RECORDS SUMMARY | 2024-11-07 14:20 | XMS_ITS | Encounter Summary ---
Author Organization [facility] Healthcare Address [address] [place] [address] Care Team Providers Care Set Up Mechanic Stamping Machines Name Role Phone Teresita Painting MD Primary Care Prov ider Encounter Details Date Type Department Care Team (Late st Contact Info) Description 05/14/2020 10:00 AM CDT - 05/14/2020 10:45 AM CDT [facility] [address] [facility] [address] [place] [address] Noemi Mccoy MD [facility] [address] [place], [place] [phone] COLON BIOPSY Surgery Details Date/Time Status Location OR Service Patient Class Case Class Case Type Trauma Case? 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 Room: [facility] ENDOSCOPY ROOM 4 Note Status: Finalized [...] verified by the physician, the nurse, the chainstitch elastic attacher and the crown and bridge dental lab technician in the procedure room. Respiratory Examination: [...] was passed under direct vision. The [id number] endoscope was introduced through the anus and advanced to the cecum, identified by appendiceal orifice and ileocecal valve. The colonoscopy was performed without difficulty. The patient tolerated the procedure well. The quality of the bowel preparation was adequate to identify polyps 6 mm and larger in size. The quality of the bowel preparation was evaluated using the BBPS ([place] Bowel Preparation Scale) with scores of: Right [...] On: 05/14/2020 11:03 AM Recognized by the [place] [employer] for promoting quality [...] gastric) 05/14/2020 11:28 AM CDT Narrative PATHOLOGY [facility] - 05/15/2020 10:42 AM CDT EPIC results best viewed via link to PDF [facility] [place] [address] SURGICAL PATHOLOGY REPORT FINAL Patient Name: ?? YARIEL HILL Gender: ??M : ??1970 (Age: 50) Address: ??[address] [place] [address] Hospital #: ??[id number] Taken:05/14/2020 Received:05/14/2020 Reported: 05/15/2020 Patient Type: [facility] ?? Service: Gastro Location: [facility] Physician(s): ??Noemi Mccoy M.D. Teresita [...] and/05/14/2020 13:49 PA(s): Consuelo Martino MS, PA ([facility]) By this signature, I attest that the above diagnosis is based upon my personal examination of the slides(and/or other material). Addenda/Procedures The performance characteristics of some immunohistochemical stains, fluorescence in-situ hybridization tests and immunophenotyping by flow cytometry cited in this report (if any) were determined by the Surgical Pathology Department at [facility] as part of an ongoing quality assurance coordinator program and in compliance with federally mandated [...] determined by the Surgical Pathology Department of [facility]. ??It has not been cleared or approved by the U. S. Food and Drug Administration. IMAGES AND SCANNED DOCUMENTS, IF INCLUDED, ONLY VIEWABLE IN PDF VERSION OF REPORT us Noemi Mccoy MD LAB PATHOLOGY ORDERABLES Fin al Result PATHOLOGY [facility] 3rd Floor [place], [place] [phone] * COLONOSCOPY (05/14/2020 11:03 AM CDT) Anatomical Region Laterality Modality Other Narrative Procedure Note Noemi Mccoy MD - 05/14/2020 11:03 AM CDT [facility] Patient Name: Yariel Hill Procedure Date: 05/14/2020 11:03 AM Date of : 1970 Admit Type: Outpatient Age: 50 Gender: Male Attending MD: Noemi Mccoy M.D. Room: [facility] ENDOSCOPY ROOM 4 Note Status: Finalized [...] were verified by the physician,the nurse, the chainstitch elastic attacher and the crown and bridge dental lab technician in the procedure room. Respiratory Examination: [...] The scope was passed under direct vision.The [id number] endoscope was introduced throughthe anus and [...] On: 05/14/2020 11:03 AM Recognized by the [place] [employer] for promoting quality [...] 04/30 documented in this encounter Care Teams Set Up Mechanic Stamping Machines Relationship Specialty Start Date End Date Teresita Painting MD PCP - General 10/25/19 04/17/21 documented as of this encounter
--- OUTSIDE RECORDS SUMMARY | 2024-11-07 14:20 | XMS_ITS | Encounter Summary ---
Author Organization [facility] Healthcare Address [address] [place] [address] Care Team Providers Care Cook Manager Name Role Phone Teresita Painting MD Primary Care Prov ider Reason for Visit * Reason Onset Date Comments Follow-up 09/17/2020 Encounter Details Date Type Department Care Team ([facility] Contact Info) Description 09/17/2020 Telephone [facility] Primary Care Medicine Clinic [address] [facility] [address] [place] [address] [facility]ita [facility] MD [facility] [address] [place], [place] [phone] Follow-up Social History Tobacco Use Types Packs/Day Years Used Date Smoking Tobacco: Every Day Cigarettes Smokeless Tobacco: Never Comments:8 cigs a day Alcohol Use Standard Drinks/Week Comments Yes 0 (1 standard drink = 0.6 oz pur e alcohol) occasionally Sex and Gender Information Value Date Recorded Sex Assigned at Not on file 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 Painting, Patient is calling, requesting a orthopedic referral. Marlin STILL OPERATOR documented in this encounter Plan of [...] on filedocumented in this encounter Care Teams Cook Manager Relationship Specialty Start Date End Date Teresita Painting MD PCP - General 10/25/19 04/17/21 documented as of this encounter
--- OUTSIDE RECORDS SUMMARY | 2024-11-07 14:20 | XMS_ITS | Encounter Summary ---
Author Organization [facility] Healthcare Address [address] [place] [address] Care Team Providers Care Elderly Companion Name Role Phone Teresita Painting MD Primary Care Prov ider Encounter Details Date Type Department Care Team (Latest Contact Info) Description 12/07/2019 11:40 PM SPAR FINISHER - 12/07/2019 11:59 PM SPAR FINISHER Hospital Encounter [facility] Radiology [address] [place] [address] Jabari Gandara MD [address] [facility] [address] [place] [address] Discharge Disposition: Discharge to home or self [...] on file Legal Sex Male 2:37 PM SPAR FINISHER Gender Identity Not on file Sexual Orientation [...] LATERAL 2 VIEWS ED 12/07/2019 11:43 PM SPAR FINISHER documented in this encounter Results * XR Chest Pa Lateral 2 Vw (12/07/2019 11:43 PM SPAR FINISHER) Anatomical Region Laterality Modality Body, Chest N/A Computed Radiogr aphy 12/08/2019 12:0 2 AM SPAR FINISHER Impressions 12/08/2019 9:03 AM SPAR FINISHER Comparison is made to prior radiograph 01/14/2015. ??The lungs are clear without pneumothorax or pleural effusion. ??The cardiomediastinal silhouette is within normal limits. Dictated by: Pedro Gallagher M.D. Ph.D. The radiology attending physician has personally reviewed this study, and had reviewed and/or edited this written report and agrees with it. Electronically signed by: Shilo Gonzalez M.D. Narrative 12/08/2019 9:03 AM SPAR FINISHER EXAMINATION: XR CHEST PA LATERAL 2 VIEWS HISTORY: 49-year-old man with shortness of breath. ??The patient drinks multiple tall boys. Procedure Note Shilo oGnzalez MD - 12/08/2019 EXAMINATION: XR CHEST PA [...] on filedocumented in this encounter Care Teams Elderly Companion Relationship Specialty Start Date End Date Teresita Painting MD PCP - General 10/25/19 04/17/21 documented as of this encounter
--- OUTSIDE RECORDS SUMMARY | 2024-11-07 14:20 | XMS_ITS | Encounter Summary ---
Author Organization [facility] Healthcare Address [address] [place] [address] Care Team Providers Care Manager Culinary Name Role Phone Teresita Painting MD Primary Care Prov ider Teresita Painting MD Primary Care Prov ider Reason for Visit * Reason Comments PREP 05/14/2020 Encounter Details Date Type Department Care Team (Late st Contact Info) Description 07/10/2019 Telephone [facility] Specialty Services [address] [place] [phone] Azul Zhang RN PREP 05/14/2020 Social History Tobacco Use Types Packs/Day Years Used Date Smoking Tobacco: Every Day Cigarettes Smokeless Tobacco: Never Alcohol Use Standard Drinks/Week Comments Yes 0 (1 standard drink = 0.6 oz pur e alcohol) occas Sex and Gender Information Value Date Recorded Sex Assigned at Not on file 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 * Addendum Note - [...] till after procedure. Covid Testing on 2020, [facility]. Covid order in [facility]. * Telephone Encounter - Azul Zhang RN [...] be scheduled with sedation provided by the laboratory apparatus glass blower. This is called concious sedation and is [...] ??? Bowel prep choice:nulytely ??? Language preference: sinhala Is an jawbone breaker needed: no ??? Special Instructions (i.e. needs [...] on filedocumented in this encounter Care Teams Manager Culinary Relationship Specialty Start Date End Date Teresita Painting MD PCP - General Obstetrics and Gynecology 07/26/18 904/18 Teresita Painting MD PCP - General 10/25/19 04/17/21 documented as of this encounter
--- OUTSIDE RECORDS SUMMARY | 2024-11-07 14:20 | XMS_ITS | Encounter Summary ---
Author Organization [facility] Healthcare Address [address] [place] [address] Care Team Providers Care Service Associate Name Role Phone Teresita Painting MD Primary Care Prov ider Reason for Visit * Reason Onset Date Comments Follow-up 09/30/2020 Encounter Details Date Type Department Care Team ([facility] Contact Info) Description 09/30/2020 Telephone [facility] Primary Care Medicine Clinic [address] [facility] [address] [place] [address] [facility]resita Painting MD [address] [facility] [address] [place], [place] [phone] Follow-up Social History Tobacco Use Types Packs/Day Years Used Date Smoking Tobacco: Every Day Cigarettes Smokeless Tobacco: Never Comments:8 cigs a day Alcohol Use Standard Drinks/Week Comments Yes 0 (1 standard drink = 0.6 oz pur e alcohol) occasionally Sex and Gender Information Value Date Recorded Sex Assigned at Not on file 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 Would like to know if he can go to the 4th floor lab? Patient Contact: Marlin ITY ASSURANCE AUDITOR documented in this encounter Plan of Treatment [...] on filedocumented in this encounter Care Teams Service Associate Relationship Specialty Start Date End Date Teresita Painting MD PCP - General 10/25/19 04/17/21 documented as of this encounter
--- OUTSIDE RECORDS SUMMARY | 2024-11-07 14:20 | XMS_ITS | Encounter Summary ---
Author Organization [facility] Healthcare Address [address] [place] [address] Care Team Providers Care Plate And Weld Inspector Name Role Phone Teresita Painting MD Primary Care Prov ider Encounter Details Date Type Department Care Team (Late st Contact Info) Description 12/08/2020 9:15 AM MISSION PLANNER Telemedicine [facility] Primary Care Medicine Clinic [facility] [address] [place], [place] [phone] Nyla Bautista MD [address] [place] [address] [facility] [phone] [place], [place] [phone] Francisco Bazzi MD [address] [place] [address] [address] [place], [place] [phone] Essential hypertension (Primary Dx); Sinus congestion Discharge [...] on file Legal Sex Male 2:37 PM MISSION PLANNER Gender Identity Not on file Sexual Orientation [...] During the visit, I was located at [facility] Primary Care Medicine Clinic and the patient was located his residence, in the [facility]. If the patient was located in the [facility] I will staff the patient with [...] video resolution insufficient, etc), equipment failure, and senior information systems architect issues. An in-person visit may be [...] file Gets together: Not on file Attends mosque service: Not on file Active member of [...] Noah Larios MD at 12/10/2020 1:16 PM MISSION PLANNER ION PLANNER ION PLANNER Associated attestation - Noah Larios MD - 12/10/2020 1:16 PM MISSION PLANNER I was immediately available for consultation during [...] see patients in clinic while following the [facility] social distancing guidelines; a telehealth visit allows us to provide safe, essential and timely care for our patients. ION PLANNER documented in this encounter Miscellaneous Notes * Assessment & Plan Note - Francisco Bazzi MD - 12/08/2020 12:31 PM MISSION PLANNER Associated Problem(s): Hypertension Blood pressure very well-controlled with amlodipine. No symptoms of hypotension, no adverse reactions. No signs/symptoms suggestive of ACS/CAD, CHF, CVA - continue amlodipine 10mg daily - reviewed low sodium diet ION PLANNER documented in this encounter Plan of Treatment [...] documented as of this encounter Care Teams Plate And Weld Inspector Relationship Specialty Start Date End Date Teresita Painting MD PCP - General 10/25/19 04/17/21 documented as of this encounter
--- OUTSIDE RECORDS SUMMARY | 2024-11-07 14:20 | XMS_ITS | Encounter Summary ---
Author Organization [facility] Healthcare Address [address] [place] [address] Care Team Providers Care Chief Substation Operator Name Role Phone Teresita Painting MD Primary Care Prov ider Encounter Details Date Type Department Care Team (Late st Contact Info) Description 11/07/2020 4:00 PM SAMPLING EXPERT Lab [facility] [address] [place] [id number] Thrombocytopenia (CMS/HCC); Vitamin D deficiency Social History Tobacco Use Types Packs/Day Years Used Date Smoking Tobacco: Every Day Cigarettes Smokeless Tobacco: Never Comments:8 cigs a day Alcohol Use Standard Drinks/Week Comments Yes 0 (1 standard drink = 0.6 oz pur e alcohol) occasionally Sex and Gender Information Value Date Recorded Sex Assigned at Not on file Legal Sex Male 2:37 PM SAMPLING EXPERT Gender Identity Not on file Sexual Orientation [...] DIFFERENTIAL AUTO Routine 11/07/2020 3:2 7 PM SAMPLING EXPERT Thrombocytopenia (CMS/HCC) CBC WITH AUTO DIFFERENTIAL Routine 11/07/2020 3:27 PM SAMPLING EXPERT Thrombocytopenia (CMS/HCC) VITAMIN D 25 HYDROXY Routine 11/07/2020 3:27 PM SAMPLING EXPERT Vitamin D deficiency documented in this encounter Results * Differential, auto (11/07/2020 3:27 PM SAMPLING EXPERT) Neutrophil abs 5.3 1.7 - 6.5 K/cumm [facility] Imm gran abs 0.0 0.0 - 0.1 K/cumm [facility] Lymphocyte abs 2.3 0.8 - 3.3 K/cumm [facility] Monocyte abs 0.5 0.2 - 0.8 K/cumm [facility] Eosinophil abs 0.2 0.0 - 0.5 K/cumm [facility] Basophil abs 0.0 0.0 - 0.1 K/cumm [facility] Neutrophil pct 63.2 % [facility] Comment: Interpretive Data Percent cell count reference ranges are not reported, since discordance with absolute values may lead to misinterpretation of CBC data. Current Interpretive Data was last revised on 2018. Imm gran pct 0.2 % [facility] Comment: Interpretive Data Percent cell count reference ranges are not reported, since discordance with absolute values may lead to misinterpretation of CBC data. Current Interpretive Data was last revised on 2018. Lymphocyte pct 27.3 % [facility] Comment: Interpretive Data Percent cell count reference ranges are not reported, since discordance with absolute values may lead to misinterpretation of CBC data. Current Interpretive Data was last revised on 2018. Monocyte pct 6.2 % [facility] Comment: Interpretive Data Percent cell count reference ranges are not reported, since discordance with absolute values may lead to misinterpretation of CBC data. Current Interpretive Data was last revised on 2018. Eosinophil pct 2.6 % [facility] Comment: Interpretive Data Percent cell count reference ranges are not reported, since discordance with absolute values may lead to misinterpretation of CBC data. Current Interpretive Data was last revised on 2018. Basophil pct 0.5 % [facility] Comment: Interpretive Data Percent cell count reference ranges are not reported, since discordance with absolute values may lead to misinterpretation of CBC data. Current Interpretive Data was last revised on 2018. Blood specimen (specimen) 11/07/2020 3:27 PM SAMPLING EXPERT 11/08/2020 12:09 AM SAMPLING EXPERT Lionel Busby MD LAB BLOOD ORDERABLES Carrie l Result [facility] One [facility] [place] [address] * (ABNORMAL) Vitamin D 25 hydroxy (11/07/2020 3:27 PM SAMPLING EXPERT) Vitamin D 25-OH 27(L) 30 - 80 ng/mL [facility] Blood specimen (specimen) 11/07/2020 3:27 PM SAMPLING EXPERT 11/07/2020 4:45 PM SAMPLING EXPERT us Lionel Busby MD LAB BLOOD ORDERABLES Carrie l Result Performing Organization Address [facility] Co de Phone Number [facility] [place] [employer] [place] [address] * (ABNORMAL) CBC with auto differential (11/07/2020 3:27 PM SAMPLING EXPERT) WBC 8.0 3.8 - 9.9 K/cumm [facility] Hgb 13.7 13.0 - 17.5 g/dL [facility] Hct 38.6(L) 38.9 - 50.3 % [facility] Plt 207 150 - 400 K/cumm [facility] MPV 9.8 9.1 - 12.3 fL [facility] RBC 4.26(L) 4.30 - 5.80 M/cumm [facility] MCV 90.6 81.3 - 96.4 fL [facility] MCH 32.2 27.1 - 33.3 pg [facility] MCHC 35.5 32.3 - 35.7 g/dL [facility] RDW CV 12.3 11.1 - 14.9 % [facility] RDW SD 40.9 35.7 - 48.1 fL [facility] NRBC abs 0.00 0.00 - 0.01 K/cumm [facility] Blood specimen (specimen) 11/07/2020 3:27 PM SAMPLING EXPERT 11/07/2020 4:45 PM SAMPLING EXPERT Lionel Busby MD LAB BLOOD ORDERABLES Carrie l Result Performing Organization Address [facility]/ZIP Co de Phone Number [facility] [place] [employer] [place] [address] documented in this encounter Visit Diagnoses Diagnosis Thrombocytopenia (HCC) Unspecified thrombocytopenia Vitamin D deficiency documented in this encounter Care Teams Chief Substation Operator Relationship Specialty Start Date End Date Teresita Painting MD PCP - General 10/25/19 04/17/21 documented as of this encounter
--- OUTSIDE RECORDS SUMMARY | 2024-11-07 14:20 | XMS_ITS | Encounter Summary ---
Author Organization [facility] Healthcare Address [address] [place] [address] Care Team Providers Care Developmental Mathematics Professor Name Role Phone Teresita Painting MD Primary Care Prov ider Encounter Details Date Type Department Care Team (Latest Contact Info) Description 05/14/2020 9:02 AM CDT - 05/14/2020 1:14 PM CDT Hospital Encounter [facility] [address] [facility][[address]] [address] [place] [address] Noemi Mccoy MD [facility] [address] [place], [place] [id number] Healthcare maintenance Discharge Disposition: Discharge to home [...] on file Legal Sex Male 2:37 PM MEDICAL PRACTICE ADMINISTRATOR Gender Identity Not on file Sexual [...] cigarettes, uncomplicated - NICOTINE DEPENDENCE, CIGARETTES, UNCOMPLICATED terminal supervisor (current) use of inhaled steroids - STORAGE GARAGE ATTENDANT (CURRENT) USE OF INHALED STEROIDS Other [facility] (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 - OTHER PENITENTIARY (CURRENT) DRUG THERAPY documented in this encounter [...] Male Attending MD: Noemi Mccoy M.D. Room: [facility] ENDOSCOPY ROOM 4 Note Status: Finalized Procedure: [...] verified by the physician, the nurse, the actuarial analyst and the land mobile radio technician in the procedure room. Respiratory Examination: [...] was passed under direct vision. The CF [id number] endoscope was introduced through the anus and advanced to the cecum, identified by appendiceal orifice and ileocecal valve. The colonoscopy was performed without difficulty. The patient tolerated the procedure well. The quality of the bowel preparation was adequate to identify polyps 6 mm and larger in size. The quality of the bowel preparation was evaluated using the BBPS ([place] Bowel Preparation Scale) with scores of: Right [...] On: 05/14/2020 11:03 AM Recognized by the [place] [employer] for promoting quality [...] gastric) 05/14/2020 11:28 AM CDT Narrative PATHOLOGY [facility] - 05/15/2020 10:42 AM CDT [facility] results best viewed via link to PDF [facility] [place] [address] SURGICAL PATHOLOGY REPORT FINAL Patient Name: ?? YARIEL HILL Gender: ??M : ??1970 (Age: 50) Address: ??[address] [place] [address] Hospital #: ??[id number] Taken:05/14/2020 Received:05/14/2020 Reported: 05/15/2020 Patient Type: BJ SDS ?? Service: Gastro Location: [facility] Physician(s): ??Noemi Mccoy M.D. Teresita Painting M.D. [...] and/05/14/2020 13:49 PA(s): Consuelo Martino MS, PA ([facility]) By this signature, I attest that the above diagnosis is based upon my personal examination of the slides(and/or other material). Addenda/Procedures The performance characteristics of some immunohistochemical stains, fluorescence in-situ hybridization tests and immunophenotyping by flow cytometry cited in this report (if any) were determined by the Surgical Pathology Department at [facility] as part of an ongoing automotive quality engineer program and in compliance with federally mandated [...] determined by the Surgical Pathology Department of [facility]. ??It has not been cleared or approved by the U. S. Food and Drug Administration. IMAGES AND SCANNED DOCUMENTS, IF INCLUDED, ONLY VIEWABLE IN PDF VERSION OF REPORT us Noemi Mccoy MD LAB PATHOLOGY ORDERABLES Fin al Result [facility] 3rd Floor [place], [place] [phone] * COLONOSCOPY (05/14/2020 11:03 AM CDT) Anatomical Region Laterality Modality Other Narrative Procedure Note Noemi Mccoy MD - 05/14/2020 11:03 AM CDT [facility] Patient Name: Yariel Hill Procedure Date: 05/14/2020 11:03 AM Date of : 1970 Admit Type: Outpatient Age: 50 Gender: Male Attending MD: Noemi Mccoy M.D. Room: [facility] ENDOSCOPY ROOM 4 Note Status: Finalized Procedure: [...] were verified by the physician,the nurse, the actuarial analyst and the land mobile radio technician in the procedure room. Respiratory Examination: [...] The scope was passed under direct vision.The [id number] endoscope was introduced throughthe anus and [...] On: 05/14/2020 11:03 AM Recognized by the [place] [employer] Gastrointestinal [employer]oscopy for promoting quality [...] 04/30 documented in this encounter Care Teams Developmental Mathematics Professor Relationship Specialty Start Date End Date Teresita Painting MD PCP - General 10/25/19 04/17/21 documented as of this encounter
--- OUTSIDE RECORDS SUMMARY | 2024-11-07 14:20 | XMS_ITS | Encounter Summary ---
Author Organization [facility] Healthcare Address [address] [place] [address] Care Team Providers Care Tourism Radio Presenter Name Role Phone Teresita Painting MD Primary Care Prov ider Darius Fernández MD Primary Care Provider [phone] Reason for Visit * Reason Comments Preventative Care Hypertension monitors BP at home, did not take medication yet . Sinus Problem needs refill on Rhin ocort Encounter Details Date Type Department Care Team (Late st Contact Info) Description 06/13/2018 2:15 PM CDT Office Visit [facility] [address] 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 They still contain nicotine. ?? [employer] Phone: Web Address: [email or web address] Follow up with your healthcare provider as directed: Write down your questions so you remember to ask them during your visits. ?? 2016 [employer]. Information is for End User's use only and may not be sold, redistributed or otherwise used for commercial purposes. All illustrations and images included in CareNotes?? are the copyrighted property of [employer]. or [employer]. The above information is an school health aide only. It is not intended as [...] kg/m??. Physical Exam Assessment / Plan Yariel iHll is a 48 y.o. male with hypertension, [...] eating a lot of salty food (Abdi's, kuwaiti fries, chips, soda). Identified a couple of [...] trachomatis rRNA Negative for: ??Neisseria gonorrhoeae rRNA [facility] Urine 06/13/2018 3:56 PM CDT 06/13/2018 5:34 PM CDT Narrative [facility] - 06/14/2018 2:01 PM CDT Testing performed by the [employer] APTIMA Combo 2 Assay. This nucleic acid amplification test (NAAT) detects ribosomal RNA (rRNA) from Chlamydia trachomatis and Neisseria gonorrhoeae using target capture,and Glass Vial Filler-Mediated Amplification (TMA). This test is approved by the [place] Food and Drug Administration for endocervical, vaginal, and male urethral swab specimens, in addition to male and female urine specimens. The performance characteristics for these specimen types have been verified by the [facility].The performance characteristics of this assay for pharyngeal and rectal specimens collected from cervical swab collection devices have been validated and verified by the [facility]. Verification studies support a [...] age. Christiano Heller MD LAB MICROBIOLOGY - Neitui L ORDERABLES Final Result Performing Organization Address City/[facility] Co de Phone Number [facility] [place] [address] * RPR, serum (06/13/2018 3:56 PM CDT) Pathologist [facility] RPR Nonreactive Nonreactive [facility] Blood specimen (specimen) 06/13/2018 3:56 PM CDT 06/13/2018 6:30 PM CDT Narrative [facility] - 06/13/2018 7:47 PM CDT Christiano Heller MD LAB MICROBIOLOGY - GENERA L ORDERABLES Final Result Performing Organization Address City/[facility]/ZIP [place] [address] * Hemoglobin A1c (06/13/2018 3:51 PM CDT) Hgb A1C 4.9 4.0 - 5.6 % [facility] Estimated Average Glucose 94 mg/dL [facility] Comment: The ADA recommends reporting an estimated Average Glucose (eAG) with all Hemoglobin A1c results using the equation derived from a study of 507 normal and diabetic adults. ??Minority populations were underrepresented and children were not included. ?? (Diabetes Care 31:3686-5019, 2008). ??The eAG is not equivalent to a fasting glucose. Blood specimen (specimen) 06/13/2018 3:51 PM CDT 06/13/2018 4:39 PM CDT Narrative [facility] - 06/13/2018 5:07 PM CDT Christiano Heller MD LAB BLOOD ORDERABLES Carrie l Result Performing Organization Address City/[facility]/ZIP Co de Phone Number [facility] [place] [address] * HIV-1 and HIV-2 antibody with P24 antigen immunoassay (06/13/2018 3:31 PM CDT) Pathologist [facility] HIV 1/2 ab + p24 ag Nonreactive Nonreactive [facility] Comment:Negative for HIV-1 a ntigen and HIV-1/ HIV-2 antibodies. No laboratory evidence of HIV infection. If acute HIV infection is suspected, consider testing for HIV-1 RNA. Blood specimen (specimen) 06/13/2018 3:31 PM CDT 06/13/2018 4:43 PM CDT [facility] 06/13/2018 5:33 PM CDT Christiano Heller MD LAB MICROBIOLOGY - GENERA L ORDERABLES Final Result Performing Organization Address [facility]/ZIP Co de Phone Number [facility] [place] [address] * Folate (06/13/2018 3:04 PM CDT) Pathologist [facility] Folic acid 7.1 >=5.0 ng/mL [facility] Blood specimen (specimen) 06/13/2018 3:04 PM CDT 06/13/2018 4:41 PM CDT Narrative [facility] 06/13/2018 6:35 PM CDT us Christiano Heller MD LAB BLOOD ORDERABLES Carrie l Result Performing Organization Address City/[facility]/ZIP Co de Phone Number [facility] [place] [address] * Iron profile (06/13/2018 3:04 PM CDT) [facility] Iron 77 50 - 150 mcg/dL [facility] UIBC 198 112 - 347 mcg/dL [facility] TIBC 275 250 - 400 mcg/dL [facility] Transferrin saturation 28 20 - 50 % [facility] Blood specimen (specimen) 06/13/2018 3:04 PM CDT 06/13/2018 4:41 PM CDT Narrative [facility] - 06/13/2018 6:31 PM CDT us Christiano Heller MD LAB BLOOD ORDERABLES Carrie l Result Performing Organization Address [facility] [place] [address] * (ABNORMAL) Vitamin D 25 hydroxy (06/13/2018 3:04 PM CDT) [facility] Vitamin D 25-OH 18(L) 30 - 80 ng/mL [facility] Blood specimen (specimen) 06/13/2018 3:04 PM CDT 06/13/2018 4:41 PM CDT Narrative [facility] - 06/13/2018 7:12 PM CDT Christiano Heller MD LAB BLOOD ORDERABLES Carrie l Result [facility] [place] [address] * Vitamin B12 (06/13/2018 3:04 PM CDT) [facility] Vitamin B12 688 230 - 1,250 pg/mL [facility] Blood specimen (specimen) 06/13/2018 3:04 PM CDT 06/13/2018 4:41 PM CDT Narrative [facility] - 06/13/2018 6:35 PM CDT us Christiano Heller MD LAB BLOOD ORDERABLES Carrie l Result [facility] One [facility] [place] [address] * Comprehensive metabolic panel (06/13/2018 3:04 PM CDT) Pathologist [facility] Sodium 143 135 - 145 mmol/L [facility] Potassium, pl 3.7 3.3 - 4.9 mmol/L [facility] Chloride 103 97 - 110 mmol/L [facility] CO2 30 22 - 32 mmol/L [facility] Anion gap 10 2 - 15 mmol/L [facility] BUN 10 8 - 25 mg/dL [facility] Creatinine 1.03 0.80 - 1.30 mg/dL [facility] Glucose 77 70 - 199 mg/dL [facility] Comment: Interpretive Data Fasting glucose >/= [...] 2017. Calcium 9.6 8.5 - 10.3 mg/dL [facility] Bilirubin, total 0.4 0.1 - 1.2 mg/dL [facility] Protein, pl 8.0 6.5 - 8.5 g/dL [facility] Albumin 4.9 3.5 - 5.0 g/dL [facility] Alk phos 63 40 - 130 Units/L [facility] ALT 13 7 - 55 Units/L [facility] AST 21 10 - 50 Units/L [facility] Blood specimen (specimen) 06/13/2018 3:04 PM CDT 06/13/2018 4:41 PM CDT Narrative [facility] - 06/13/2018 5:22 PM CDT Christiano Heller MD LAB BLOOD ORDERABLES Carrie khanna Result [facility] One [facility] [place] [address] documented in this encounter Visit Diagnoses Diagnosis [...] documented as of this encounter Care Teams Tourism Radio Presenter Relationship Specialty Start Date End Date Teresita Painting MD PCP - General Internal Medicine 06/13/18 06/13/18 Darius Fernández MD [address] [place] [address] PCP - General 06/14/18 07/25/18 documented as of this encounter
--- OUTSIDE RECORDS SUMMARY | 2024-11-07 14:20 | XMS_ITS | Encounter Summary ---
Author Organization [facility] Address [address] [place] [address] Care Team Providers Care News Videotape Editor Name Role Phone Darius Fernández MD Primary Care Provider [phone] Reason for Visit * Reason Onset Date Comments Dr. Fernández-medical question 10/21/2017 Encounter Details Date Type Department Care Team ([facility] Contact Info) Description 10/21/2017 Telephone [facility] Group at the [address] [place] [address] Darius Fernández MD [address] [place] [address] [address] [place], [place] [id number] Dr. Fernández-medical question Social History Tobacco Use Types Packs/Day Years Used Date Smoking Tobacco: Every Day Cigarettes Smokeless Tobacco: Never Alcohol Use Standard Drinks/Week Comments Yes 0 (1 standard drink = 0.6 oz pur e alcohol) Sex and Gender Information Value Date Recorded Sex Assigned at Not on file Legal Sex Male 2:37 PM CLINICAL PROJECT COORDINATOR Gender Identity Not on file Sexual Orientation Not on file documented as of this encounter Miscellaneous Notes * Telephone Encounter - Darius Fernández MD - 10/27/2017 1:39 PM CST Recommended robitussin dm ICAL PROJECT COORDINATOR * Telephone Encounter - Purvi Mcduffie MA - 10/21/2017 4:43 PM CST Fwd to Dr Fernández ICAL PROJECT COORDINATOR * Telephone Encounter - Simran Osorio - 10/21/2017 4:18 PM CST [facility] CC WARM TRANSFER ATTEMPT, NO ANSWER Warm Transfer attempts unsuccessful. Sending High-Priority Message. Patient is returning Dr. Fernández's call. Please contact patient at [phone]. Okay to leave a voicemail. ICAL PROJECT COORDINATOR * Telephone Encounter - Darius Fernández MD - 10/21/2017 2:57 PM CST Pt not home Left message that I called and asked him to call back ICAL PROJECT COORDINATOR * Telephone Encounter - Beckie Bassett MA - 10/21/2017 1:12 PM CST , pt has no fever, green sputum. No earache. Nose is slightly stuffy. Would like cough medicine called [phone] [facility] Address: [address] [place] [address] ICAL PROJECT COORDINATOR * Telephone Encounter - Nupur Schafer - 10/21/2017 12:54 PM CST Message being sent to provider, steel manager is currently at capacity. Symptom Based Call [...] on his phone if he doesn't answer. ICAL PROJECT COORDINATOR documented in this encounter Plan of Treatment Not on file documented as of this encounter Visit Diagnoses Not on filedocumented in this encounter Care Teams News Videotape Editor Relationship Specialty Start Date End Date Darius Fernández MD [facility] [facility] [address] Zach [address] [place] [address] PCP - General 01/28/17 06/08/18 documented as of this encounter
--- OUTSIDE RECORDS SUMMARY | 2024-11-07 14:20 | XMS_ITS | Encounter Summary ---
Author Organization [facility] Healthcare Address [address] [place] [address] Care Team Providers Care Label Sewer Name Role Phone Teresita Painting MD Primary Care Prov ider Encounter Details Date Type Department Care Team (Late st Contact Info) Description 06/13/2018 3:55 PM CDT Lab [facility] [address] [place] [id number] Healthcare maintenance; Anemia, unspecified type; Vitamin D deficiency Social History Tobacco Use Types Packs/Day Years Used Date Smoking Tobacco: Every Day Cigarettes Smokeless Tobacco: Never Alcohol Use Standard Drinks/Week Comments Yes 0 (1 standard drink = 0.6 oz pur e alcohol) Sex and Gender Information Value Date Recorded Sex Assigned at Not on file 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 gonorrhoeae/C. trachomatis amplification test Urine (06/13/2018 3:56 PM CDT) Report Final Report: Negative for: ??Chlamydia trachomatis rRNA Negative for: ??Neisseria gonorrhoeae rRNA [facility] Urine 06/13/2018 3:56 PM CDT 06/13/2018 5:34 PM CDT Narrative [facility] - 06/14/2018 2:01 PM CDT Testing performed by the [employer] APTIMA Combo 2 Assay. This nucleic acid amplification test (NAAT) detects ribosomal RNA (rRNA) from Chlamydia trachomatis and Neisseria gonorrhoeae using target capture,and Chief Console Operator-Mediated Amplification (TMA). This test is approved by the [place] Food and Drug Administration for endocervical, vaginal, and male urethral swab specimens, in addition to male and female urine specimens. The performance characteristics for these specimen types have been verified by the [facility].The performance characteristics of this assay for pharyngeal and rectal specimens collected from cervical swab collection devices have been validated and verified by the [facility]. Verification studies support a lack [...] MICROBIOLOGY - GENERA L ORDERABLES Final Result [facility] Department [place] [address] * Hemoglobin A1c (06/13/2018 3:51 PM CDT) Hgb A1C 4.9 4.0 - 5.6 % [facility] Estimated Average Glucose 94 mg/dL [facility] Comment: The ADA recommends reporting an estimated Average Glucose (eAG) with all Hemoglobin A1c results using the equation derived from a study of 507 normal and diabetic adults. ??Minority populations were underrepresented and children were not included. ?? (Diabetes Care 31:2380-8207, 2008). ??The eAG is not equivalent to a fasting glucose. Blood specimen (specimen) 06/13/2018 3:51 PM CDT 06/13/2018 4:39 PM CDT Narrative [facility] - 06/13/2018 5:07 PM CDT Christiano Heller MD LAB BLOOD ORDERABLES Carrie l Result Performing Organization Address [facility] de Phone Number [facility] Department [place] [address] * HIV-1 and HIV-2 antibody with P24 antigen immunoassay (06/13/2018 3:31 PM CDT) [facility] HIV 1/2 ab + p24 ag Nonreactive Nonreactive [facility] Comment:Negative for HIV-1 a ntigen and HIV-1/ HIV-2 antibodies. No laboratory evidence of HIV infection. If acute HIV infection is suspected, consider testing for HIV-1 RNA. Blood specimen (specimen) 06/13/2018 3:31 PM CDT 06/13/2018 4:43 PM CDT Narrative [facility] - 06/13/2018 5:33 PM CDT Christiano Heller MD LAB MICROBIOLOGY - GENERA L ORDERABLES Final Result Performing Organization Address [facility] de Phone Number [facility] Department [place] [address] * Comprehensive metabolic panel (06/13/2018 3:04 PM CDT) [facility] Sodium 143 135 - 145 mmol/L [facility] Potassium, pl 3.7 3.3 - 4.9 mmol/L [facility] Chloride 103 97 - 110 mmol/L [facility] CO2 30 22 - 32 mmol/L [facility] Anion gap 10 2 - 15 mmol/L [facility] BUN 10 8 - 25 mg/dL [facility] Creatinine 1.03 0.80 - 1.30 mg/dL [facility] Glucose 77 70 - 199 mg/dL [facility] Comment: Interpretive Data Fasting glucose [...] 2017. Calcium 9.6 8.5 - 10.3 mg/dL [facility] Bilirubin, total 0.4 0.1 - 1.2 mg/dL [facility] Protein, pl 8.0 6.5 - 8.5 g/dL [facility] Albumin 4.9 3.5 - 5.0 g/dL [facility] Alk phos 63 40 - 130 Units/L [facility] ALT 13 7 - 55 Units/L [facility] AST 21 10 - 50 Units/L [facility] Blood specimen (specimen) 06/13/2018 3:04 PM CDT 06/13/2018 4:41 PM CDT Narrative [facility] - 06/13/2018 5:22 PM CDT Christiano Heller MD LAB BLOOD ORDERABLES Carrie l Result [facility] [place] [address] * Folate (06/13/2018 3:04 PM CDT) Folic acid 7.1 >=5.0 ng/mL [facility] Blood specimen (specimen) 06/13/2018 3:04 PM CDT 06/13/2018 4:41 PM CDT Narrative [facility] - 06/13/2018 6:35 PM CDT Christiano Heller MD LAB BLOOD ORDERABLES Carrie l Result Performing Organization Address City/[facility]/[place] [address] * Iron profile (06/13/2018 3:04 PM CDT) [facility] Iron 77 50 - 150 mcg/dL [facility] UIBC 198 112 - 347 mcg/dL [facility] TIBC 275 250 - 400 mcg/dL [facility] Transferrin saturation 28 20 - 50 % [facility] Blood specimen (specimen) 06/13/2018 3:04 PM CDT 06/13/2018 4:41 PM CDT Narrative [facility] - 06/13/2018 6:31 PM CDT Christiano Heller MD LAB BLOOD ORDERABLES Carrie l Result Performing Organization Address [facility] [place] [place] [address] * (ABNORMAL) Vitamin D 25 hydroxy (06/13/2018 3:04 PM CDT) [facility] Vitamin D 25-OH 18(L) 30 - 80 ng/mL [facility] Blood specimen (specimen) 06/13/2018 3:04 PM CDT 06/13/2018 4:41 PM CDT Narrative [facility] - 06/13/2018 7:12 PM CDT Christiano Heller MD LAB BLOOD ORDERABLES Carrie l Result Performing Organization Address City/[facility]/[place] [address] * Vitamin B12 (06/13/2018 3:04 PM CDT) Vitamin B12 688 230 - 1,250 pg/mL [facility] Blood specimen (specimen) 06/13/2018 3:04 PM CDT 06/13/2018 4:41 PM CDT Narrative [facility] - 06/13/2018 6:35 PM CDT us Christiano Heller MD LAB BLOOD ORDERABLES Carrie l Result [facility] Department [place] [address] documented in this encounter Visit Diagnoses Diagnosis Healthcare maintenance Anemia, unspecified type Vitamin D deficiency documented in this encounter Care Teams Label Sewer Relationship Specialty Start Date End Date Teresita Painting MD PCP - General Internal Medicine 06/13/18 06/13/18 documented as of this encounter
--- OUTSIDE RECORDS SUMMARY | 2024-11-07 14:20 | XMS_ITS | Encounter Summary ---
Author Organization [facility] Healthcare Address [address] [place] [address] Care Team Providers Care Lock Maintenance Supervisor Name Role Phone Teresita Painting MD Primary Care Prov ider Reason for Visit * Reason Onset Date Comments Follow-up 10/02/2018 Encounter Details Date Type Department Care Team (Late st Contact Info) Description 10/02/2018 Telephone 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 Patient contact: [phone] Elder Carrizales HOLOGICAL EXAMINER documented in this encounter Plan of Treatment [...] on filedocumented in this encounter Care Teams Lock Maintenance Supervisor Relationship Specialty Start Date End Date Teresita Painting MD PCP - General Obstetrics and Gynecology 07/26/18 904/18 documented as of this encounter
--- OUTSIDE RECORDS SUMMARY | 2024-11-07 14:20 | XMS_ITS | Encounter Summary ---
Author Organization [facility] Healthcare Address [address] [place] [address] Care Team Providers Care Combat Control Manager Name Role Phone Teresita Painting MD Primary Care Prov ider Encounter Details Date Type Department Care Team (Late st Contact Info) Description 06/18/2020 3:00 PM CDT Office Visit [facility] [address] [facility] [address] [place], [place] [id number] Nyla Bautista MD [address] [place] [address] [phone] [place], [place] [id number] [place] [address] [place] [address] [address] [place], [place] [id number] Essential hypertension (Primary Dx); Alcohol abuse; Vitamin [...] on file 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 [...] pharmacist before using any other medicine, including jdhb-srh-liaobjo medicines, vitamins, and herbal products. ?? Some [...] may report side effects to FDA at 1-209-JTJ-9690 ?? 2017 [employer] Information is for End User's use only and may not be sold, redistributed or otherwise used for commercial purposes. The above information is an day care aide only. It is not intended as [...] on phone: None Gets together: None Attends methodist service: None Active member of club or [...] * Lipid panel (06/18/2020 4:46 PM CDT) [facility] Cholesterol 169 30 - 199 mg/dL [...] 2018. LDL, calculated 79 <=129 mg/dL [facility] Comment: Interpretive Data Ages < or = [...] last revised on 2018. Chol/HDL ratio 2 [facility] Blood specimen (specimen) 06/18/2020 4:46 PM CDT 06/18/2020 5:13 PM CDT Francisco Goodson MD LAB BLOOD ORDERABLES Final Result Performing Organization Address [facility] de Phone Number [facility] Department [place] [address] * HIV 1/2 Antibody plus p24 Antigen (06/18/2020 4:46 PM CDT) [facility] HIV 1/2 ab + p24 ag Nonreactive Nonreactive [facility] Comment: Nonreactive for HIV-1 antigen and HIV-1/HIV-2 antibodies. No laboratory evidence of HIV infection. If acute HIV infection is suspected, consider testing for HIV-1 RNA. Blood specimen (specimen) 06/18/2020 4:46 PM CDT 06/18/2020 5:13 PM CDT Francisco Goodson MD LAB MICROBIOLOGY - GENERAL ORDERABLES Final Result Performing Organization Address [facility] de Phone Number [facility] Department [place] [address] * Hemoglobin A1c (06/18/2020 4:46 PM CDT) [facility] Hgb A1C 4.9 4.0 - 5.6 % [facility] Estimated Average Glucose 94 mg/dL [facility] Comment: The ADA recommends reporting an estimated Average Glucose (eAG) with all Hemoglobin A1c results using the equation derived from a study of 507 normal and diabetic adults. ??Minority populations were underrepresented and children were not included. ?? (Diabetes Care 31:2010-9972, 2007). ??The eAG is not equivalent to a fasting glucose. Blood specimen (specimen) 06/18/2020 4:46 PM CDT 06/18/2020 5:13 PM CDT Francisco Goodson MD LAB BLOOD ORDERABLES Final Result [facility] One [facility] Department [place] [address] * Comprehensive metabolic panel (06/18/2020 4:46 PM CDT) Sodium 139 135 - 145 mmol/L [facility] Potassium, pl 4.4 3.3 - 4.9 mmol/L [facility] Chloride 102 97 - 110 mmol/L [facility] CO2 28 22 - 32 mmol/L [facility] Anion gap 9 2 - 15 mmol/L [facility] BUN 11 8 - 25 mg/dL [facility] Creatinine 1.01 0.80 - 1.30 mg/dL [facility] Glucose 72 70 - 199 mg/dL [facility] Comment: Interpretive Data Fasting [...] 2017. Calcium 9.5 8.5 - 10.3 mg/dL [facility] Bilirubin, total 0.5 0.1 - 1.2 mg/dL [facility] Protein, pl 7.5 6.5 - 8.5 g/dL [facility] Albumin 4.8 3.5 - 5.0 g/dL [facility] Alk phos 48 40 - 130 Units/L [facility] ALT 17 7 - 55 Units/L [facility] AST 28 10 - 50 Units/L [facility] Blood specimen (specimen) 06/18/2020 4:46 PM CDT 06/18/2020 5:13 PM CDT Francisco Goodson MD LAB BLOOD ORDERABLES Final Result [facility] Department of [employer] [place] [address] * (ABNORMAL) CBC with auto differential (06/18/2020 4:46 PM CDT) [facility] WBC 7.1 3.8 - 9.9 K/cumm [facility] Hgb 13.7 13.0 - 17.5 g/dL [facility] Hct 41.1 38.9 - 50.3 % [facility] Plt 126(L) 150 - 400 K/cumm [facility] MPV 10.3 9.1 - 12.3 fL [facility] RBC 4.32 4.30 - 5.80 M/cumm [facility] MCV 95.1 81.3 - 96.4 fL [facility] MCH 31.7 27.1 - 33.3 pg [facility] MCHC 33.3 32.3 - 35.7 g/dL [facility] RDW CV 13.7 11.1 - 14.9 % [facility] RDW SD 48.7(H) 35.7 - 48.1 fL [facility] NRBC abs 0.00 0.00 - 0.01 K/cumm [facility] Blood specimen (specimen) 06/18/2020 4:46 PM CDT 06/18/2020 5:13 PM CDT Francisco Goodson MD LAB BLOOD ORDERABLES Final Result [facility] Department [place] [address] documented in this encounter Visit Diagnoses Diagnosis [...] documented as of this encounter Care Teams Combat Control Manager Relationship Specialty Start Date End Date Teresita Painting MD PCP - General 10/25/19 04/17/21 documented as of this encounter
--- OUTSIDE RECORDS SUMMARY | 2024-11-07 14:20 | XMS_ITS | Encounter Summary ---
Author Organization [facility] Healthcare Address [address] [place] [address] Care Team Providers Care Warp Splitter Name Role Phone Darius Fernández MD Primary Care Provider [phone] Teresita Painting MD Primary Care Prov ider Reason for Visit * Reason Onset Date Comments vitamin d low 06/29/2018 Encounter Details Date Type Department Care Team (Late st Contact Info) Description 06/29/2018 Telephone [facility] [address] [facility] [address] [place] [address] Darius Fernández MD [facility] [address] [id number] vitamin d low Social History Tobacco Use Types Packs/Day Years Used Date Smoking Tobacco: Every Day Cigarettes Smokeless Tobacco: Never Alcohol Use Standard Drinks/Week Comments Yes 0 (1 standard drink = 0.6 oz pur e alcohol) Sex and Gender Information Value Date Recorded Sex Assigned at Not on file 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 All Reece [phone] documented in this encounter Plan of Treatment [...] on filedocumented in this encounter Care Teams Warp Splitter Relationship Specialty Start Date End Date Darius Fernández MD [facility] [address] [place] [address] PCP - General 06/14/18 07/25/18 Teresita Painting MD [address] [place], [place] [address] [place] [address] PCP - General Obstetrics and Gynecology 07/26/1807/02 documented as of this encounter
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
--- OUTSIDE RECORDS SUMMARY | 2024-11-07 14:20 | XMS_ITS | Encounter Summary ---
Author Organization [facility] Address [address] [place] [address] Phone Care Team Providers Care Federal Java Developer Name Role Phone David Feliz MD Primary Care Provide r Reason for Visit * Reason Onset Date Comments Colonoscopy 05/22/2021 Encounter Details Date Type Department Care Team (Late st Contact Info) Description 05/22/2021 Telephone [facility] [address] [facility] 8th [place] [address] [place] [address] Daisy Richards B.A. 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
--- OUTSIDE RECORDS SUMMARY | 2024-11-07 14:20 | XMS_ITS | Encounter Summary ---
Author Organization [facility] Address [address] [place] [address] Phone Care Team Providers Care Manager Of Data Name Role Phone Teresita Painting MD Primary Care Prov ider Encounter Details Date Type Department Care Team (Late st Contact Info) Description 05/21/2020 Documentation [facility] [address] [facility] 8th [place] [address] [place] [phone] Beckie Gustafson Social History Tobacco Use Types Packs/Day Years Used Date Smoking Tobacco: Every Day Cigarettes Smokeless Tobacco: Never Comments:8 cigs a day Alcohol Use Standard Drinks/Week Comments Yes 0 (1 standard drink = 0.6 oz pur e alcohol) occasionally Sex and Gender Information Value Date Recorded Sex Assigned at Not on file 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
--- OUTSIDE RECORDS SUMMARY | 2024-11-07 14:20 | XMS_ITS | Encounter Summary ---
Author Organization [facility] Healthcare Address [address] [place] [address] Care Team Providers Care Test And Turn Up Technician Name Role Phone Teresita Painting MD Primary Care Prov ider Encounter Details Date Type Department Care Team (Late st Contact Info) Description 07/06/2019 3:40 PM CDT Lab [facility] [address] [place] [id number] Healthcare maintenance; Vitamin D deficiency Social History Tobacco Use Types Packs/Day Years Used Date Smoking Tobacco: Every Day Cigarettes Smokeless Tobacco: Never Alcohol Use Standard Drinks/Week Comments Yes 0 (1 standard drink = 0.6 oz pur e alcohol) occas Sex and Gender Information Value Date Recorded Sex Assigned at Not on file 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 This assay detects Chlamydia [...] on 2018. Source- Genital, Urine Urine [facility] Urine 07/06/2019 5:02 PM CDT 07/06/2019 6:51 PM CDT us Christiano Heller MD LAB MICROBIOLOGY - GENERA L ORDERABLES Final Result [facility] [address] [place] [address] * Differential, auto (07/06/2019 3:47 PM CDT) Neutrophil abs 4.5 1.7 - 6.5 K/cumm [facility] Imm gran abs 0.0 0.0 - 0.1 K/cumm [facility] Lymphocyte abs 2.5 0.8 - 3.3 K/cumm [facility] Monocyte abs 0.7 0.2 - 0.8 K/cumm [facility] Eosinophil abs 0.4 0.0 - 0.5 K/cumm [facility] Basophil abs 0.1 0.0 - 0.1 K/cumm [facility] Neutrophil pct 55.5 % [facility] Comment: Interpretive Data Percent cell count reference ranges are not reported, since discordance with absolute values may lead to misinterpretation of CBC data. Current Interpretive Data was last revised on 2018. Imm gran pct 0.2 % [facility] Comment: Interpretive Data Percent cell count reference ranges are not reported, since discordance with absolute values may lead to misinterpretation of CBC data. Current Interpretive Data was last revised on 2018. Lymphocyte pct 30.4 % [facility] Comment: Interpretive Data Percent cell count reference ranges are not reported, since discordance with absolute values may lead to misinterpretation of CBC data. Current Interpretive Data was last revised on 2018. Monocyte pct 8.3 % [facility] Comment: Interpretive Data Percent cell count reference ranges are not reported, since discordance with absolute values may lead to misinterpretation of CBC data. Current Interpretive Data was last revised on 2018. Eosinophil pct 4.9 % [facility] Comment: Interpretive Data Percent cell count reference ranges are not reported, since discordance with absolute values may lead to misinterpretation of CBC data. Current Interpretive Data was last revised on 2018. Basophil pct 0.7 % [facility] Comment: Interpretive Data Percent cell count reference ranges are not reported, since discordance with absolute values may lead to misinterpretation of CBC data. Current Interpretive Data was last revised on 2018. Blood specimen (specimen) 07/06/2019 3:47 PM CDT 07/06/2019 4:05 PM CDT Christiano Heller MD LAB BLOOD ORDERABLES Carrie khanna Result [facility] [address] [place] [address] * (ABNORMAL) Lipid panel (07/06/2019 3:47 PM CDT) Cholesterol 204(H) 30 - 199 mg/dL [facility] Comment: Interpretive Data Ages < or [...] on 2018. Triglycerides 101 <=149 mg/dL [facility] Comment: Interpretive Data Ages < or [...] on 2018. HDL 69 >=40 mg/dL [facility] Comment: Interpretive Data Ages < or [...] 2018. LDL, calculated 115 <=129 mg/dL [facility] Comment: Interpretive Data Ages < or [...] on 2018. Non-HDL Cholesterol 136 mg/dL [facility] Comment: Interpretive Data Ages < or [...] revised on 2018. Chol/HDL ratio 3 [facility] Blood specimen (specimen) 07/06/2019 3:47 PM CDT 07/06/2019 4:05 PM CDT us Christiano Heller MD LAB BLOOD ORDERABLES Carrie khanna Result [facility] [address] [place] [address] * (ABNORMAL) Vitamin D 25 hydroxy (07/06/2019 3:47 PM CDT) Vitamin D 25-OH 16(L) 30 - 80 ng/mL [facility] Blood specimen (specimen) 07/06/2019 3:47 PM CDT 07/06/2019 4:05 PM CDT Christiano Heller MD LAB BLOOD ORDERABLES Carrie l Result Performing Organization Address [facility] de Phone Number [address] [address] * HIV 1/2 Antibody plus p24 Antigen (07/06/2019 3:47 PM CDT) [facility] HIV 1/2 ab + p24 ag Nonreactive Nonreactive [facility] Comment: Nonreactive for HIV-1 antigen and HIV-1/HIV-2 antibodies. No laboratory evidence of HIV infection. If acute HIV infection is suspected, consider testing for HIV-1 RNA. Blood specimen (specimen) 07/06/2019 3:47 PM CDT 07/06/2019 4:05 PM CDT Christiano Heller MD LAB MICROBIOLOGY - GENERA L ORDERABLES Final Result Performing Organization Address [facility] de Phone Number [address] [address] * RPR (07/06/2019 3:47 PM CDT) [facility] RPR Nonreactive Nonreactive [facility] Blood specimen (specimen) 07/06/2019 3:47 PM CDT 07/06/2019 4:05 PM CDT Christiano Heller MD LAB MICROBIOLOGY - GENERA L ORDERABLES Final Result Performing Organization Address [facility] de Phone Number [address] [address] * CBC with auto differential (07/06/2019 3:47 PM CDT) [facility] WBC 8.2 3.8 - 9.9 K/cumm [facility] Hgb 15.3 13.0 - 17.5 g/dL [facility] Hct 44.3 38.9 - 50.3 % [facility] Plt 236 150 - 400 K/cumm [facility] MPV 9.6 9.1 - 12.3 fL [facility] RBC 4.82 4.30 - 5.80 M/cumm [facility] MCV 91.9 81.3 - 96.4 fL [facility] MCH 31.7 27.1 - 33.3 pg [facility] MCHC 34.5 32.3 - 35.7 g/dL [facility] RDW CV 12.0 11.1 - 14.9 % [facility] RDW SD 40.3 35.7 - 48.1 fL [facility] NRBC abs 0.00 0.00 - 0.01 K/cumm [facility] Blood specimen (specimen) 07/06/2019 3:47 PM CDT 07/06/2019 4:05 PM CDT Christiano Heller MD LAB BLOOD ORDERABLES Carrie l Result [facility] [address] [place] [address] documented in this encounter Visit Diagnoses Diagnosis Healthcare maintenance Vitamin D deficiency documented in this encounter Care Teams Test And Turn Up Technician Relationship Specialty Start Date End Date Teresita Painting MD PCP - General Obstetrics and Gynecology 07/26/18 9/04/18 documented as of this encounter
--- OUTSIDE RECORDS SUMMARY | 2024-11-07 14:20 | XMS_ITS | Encounter Summary ---
Author Organization [facility] Address [address] [place] [address] Care Team Providers Care Vocal Music Teacher Name Role Phone Darius Fernández MD Primary Care Provider [phone] Reason for Visit * Reason Comments Hypertension Follow-up Encounter Details Date Type Department Care Team ([facility] Contact Info) Description 04/13/2018 9:30 AM CDT Office Visit [facility] at the [address] [place] [address] Darius Fernández MD [address] [place] [address] [address] [place], [place] [id number] Essential hypertension (Primary Dx) Social History Tobacco Use Types Packs/Day Years Used Date Smoking Tobacco: Every Day Cigarettes Smokeless Tobacco: Never Alcohol Use Standard Drinks/Week Comments Yes 0 (1 standard drink = 0.6 oz pur e alcohol) Sex and Gender Information Value Date Recorded Sex Assigned at Not on file 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
--- OUTSIDE RECORDS SUMMARY | 2024-11-07 14:21 | XMS_ITS | Encounter Summary ---
Author Organization [facility] Facility Care Team Providers Care Roll Tender Name Role Phone Unavailable Primary Care Provider Unavailabl e Encounter Details Date Type Department Care Team (Late st Contact Info) Description 12/20/2014 5:14 PM SOLE INKER - 12/20/2014 11:59 PM SOLE INKER Hospital Encounter [facility] Rocco Brambila MD [address] [place] [address] Social History Tobacco Use Types Packs/Day Years Used Date Smoking Tobacco: Never Assessed Sex and Gender Information Value Date Recorded Sex Assigned at Not on file Legal Sex Male 2:37 PM SOLE INKER Gender Identity Not on file Sexual Orientation Not on file documented as of this encounter Plan of Treatment Not on file documented as of this encounter Procedures Procedure Name Priority Date/Time Associated Diagnosis Comments XR CONSULT OF OUTSIDE FILMS (PEDS ONLY) Routine 12/20/2014 6:22 PM SOLE INKER documented in this encounter Results * XR Interpretation Of Outside Films (12/20/2014 6:22 PM SOLE INKER) Anatomical Region Laterality Modality N/A Radiographic Vashti ging 12/20/2014 6:22 PM SOLE INKER Narrative 12/21/2014 11:32 AM SOLE INKER SP CASPER M.D. SP CASPER, FINAL REPORT The radiology attending physician has personally reviewed this study, and has reviewed and/or edited this written report and agrees with it. ACC# ??Date Time ??Exam [id number] Dec 20, 2014 18:22:00 [id number] [facility] Body CT Consult ACC# ??Date Time ??Exam [id number] Dec 20, 2014 18:22:00 [id number] [facility] Body CT Consult EXAMINATION: ?? RADIOLOGY CONSULTATION ON OUTSIDE IMAGING STUDY STUDY INITIALLY PERFORMED: ??On 12/11/2014 by [facility]. TYPE OF STUDY: Multiple CT images [...] images may or may not represent the [place] source data set and thus may contain changes that may lower the accuracy of this second-opinion interpretation. ?? Requested By: Dictated By: ?? SP CASPER, ?? on Dec 21 2014 10:45A This document has been electronically signed by: SP CASPER M.D. on Dec 21 2014 11:32A [id number] Procedure Note Provider, MD Rhett - 02/22/2017 SP CASPER M.D. SP CASPER, FINAL REPORT The radiology attending physician has personally reviewed this study, and has reviewed and/or edited this written report and agrees with it. ACC# Date Time Exam [id number] Dec 20, 2014 18:22:00 [id number] [facility] Body CT Consult ACC# Date Time Exam [id number] Dec 20, 2014 18:22:00 [id number] [facility] Body CT Consult EXAMINATION: RADIOLOGY CONSULTATION ON OUTSIDE IMAGING STUDY STUDY INITIALLY PERFORMED: On 12/11/2014 by [facility]. TYPE OF STUDY: Multiple CT images [...] images may or may not represent the [place] source data set and thus may contain changes that may lower the accuracy of this second-opinion interpretation. Requested By: Dictated By: SP CASPER on Dec 21 2014 10:45A This document has been electronically signed by: SP CASPER M.D. on Dec 21 2014 11:32A [id number] us Historical Provider MD MELÉNDEZ XR PROCEDURES Final R esult documented in this encounter Visit Diagnoses Not on filedocumented in this encounter
--- OUTSIDE RECORDS SUMMARY | 2024-11-07 14:21 | XMS_ITS | Encounter Summary ---
Author Organization [facility] Address [address] [place] [address] Care Team Providers Care Health Outreach Worker Name Role Phone Darius Fernández MD Primary Care Provider [phone] Reason for Visit * Reason Onset Date Comments Pradeep no transition of care appt 06/15/2017 Encounter Details Date Type Department Care Team (Late st Contact Info) Description 06/15/2017 Telephone [facility] at the [address] [place] [address] Darius Fernández MD [address] [place] [address] [address] [place], [place] [id number] Pradeep no transition of care appt Social History Tobacco Use Types Packs/Day Years Used Date Smoking Tobacco: Heavy Smoker Comments:Smoking History Pac ks/day: 0.5 Packs Alcohol Use Standard Drinks/Week Comments Yes 0 (1 standard drink = 0.6 oz pur e alcohol) Sex and Gender Information Value Date Recorded Sex Assigned at Not on file 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 * Telephone Encounter - Shannon Stone - 06/15/2017 3:19 PM CDT Patient calling in stating he was in the ED at [facility] on 06/10/17 for Insect bite to theleft hand and was to contact his primary care for a transition of care appt with in 5 days /no appointments available with in the time frame please advise and to contact the patient at [phone] documented in this encounter Plan of Treatment Not on file documented as of this encounter Visit Diagnoses Not on filedocumented in this encounter Care Teams Health Outreach Worker Relationship Specialty Start Date End Date Darius Fernández MD [facility] [address] Zach ESCOBAR [address] [place] [address] PCP - General 01/28/17 06/08/18 documented as of this encounter
--- OUTSIDE RECORDS SUMMARY | 2024-11-07 14:21 | XMS_ITS | Encounter Summary ---
Author Organization [facility] Facility Care Team Providers Care Cna Pct Name Role Phone Unavailable Primary Care Provider Unavailabl e Encounter Details Date Type Department Care Team (Late st Contact Info) Description 07/10/2013 - 07/10/2013 11:59 PM CDT Hospital Encounter 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 ACC# ??Date Time ??Exam [id number] Jul 10, 2013 20:39:00 [id number] MRI Cervical Spine wo cont EXAMINATION: ? [...] agrees with it. ACC# Date Time Exam [id number] Jul 10, 2013 20:39:00 [id number] MRI Cervical Spine wo cont EXAMINATION: Cervical [...]
--- OUTSIDE RECORDS SUMMARY | 2024-11-07 14:21 | XMS_ITS | Encounter Summary ---
Author Organization [facility] Facility Care Team Providers Care Dip Lube Operator Name Role Phone Unavailable Primary Care Provider Unavailabl e Encounter Details Date Type Department Care Team (Late st Contact Info) Description 03/10/2016 1:13 PM CDT - 03/10/2016 4:00 PM CDT Hospital [facility] Clemente MD [address] [address] Essential (primary) hypertension; Cyst of pancreas; Cigarette nicotine dependence, uncomplicated; Acute pharyngitis; Vitamin D deficiency Social History Tobacco Use Types Packs/Day Years Used Date Smoking Tobacco: Never Assessed Sex and Gender Information Value Date Recorded Sex Assigned at Not on file 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 Gender Identity Not on file Sexual [...] ORDERABLES Carrie l Result Performing Organization Address [place] Co de Phone Number HISTORICAL RESULTS * (ABNORMAL) Serum 25-hydroxycholecalciferol (vitamin D) (03/10/2016 2:51 PM CDT) 25-OH Vit D 8(L) 30 - 100 ng/ml HISTORICAL RESULTS Serum 03/10/2016 2:51 PM CDT Home Hoskins MD LAB BLOOD ORDERABLES Carrie l Result Performing Organization Address [place] de Phone Number HISTORICAL RESULTS [...] ORDERABLES Carrie l Result Performing Organization Address [place] de Phone Number HISTORICAL RESULTS * Serum Human Immunodeficiency virus (HIV) 1/2 ab + p24 ag (03/10/2016 2:51 PM CDT) Pathologist [facility] HIV 1/2 ab p24 ag Nonreactive Nonreactive HISTORICAL RESULTS Serum 03/10/2016 2:51 PM CDT Home Hoskins MD LAB BLOOD ORDERABLES Carrie l Result Performing Organization Address [place] de Phone Number HISTORICAL RESULTS * Blood cell count (CBC) (03/10/2016 2:51 PM CDT) Pathologist [facility] WBC 7.9 3.8 - 9.9 K/cumm HISTORICAL [...] ORDERABLES Carrie l Result Performing Organization Address [place] de Phone Number HISTORICAL RESULTS * Blood [...] ORDERABLES Carrie l Result Performing Organization Address [place] de Phone Number HISTORICAL RESULTS * Blood [...] and children were not included. ??(Diabetes Care [id number], 2007). ??The eAG is not equivalent to [...]
--- OUTSIDE RECORDS SUMMARY | 2024-11-07 14:21 | XMS_ITS | Encounter Summary ---
Author Organization [facility] Facility Care Team Providers Care Lurer Name Role Phone Darius Fernández MD Primary Care Provider [phone] Encounter Details Date Type Department Care Team (Late st Contact Info) Description 12/03/2016 2:59 PM GLASSWARE ENGRAVER - 12/03/2016 11:59 PM GLASSWARE ENGRAVER Hospital Encounter [facility] Darius Fernández MD [address] [place] [address] [address] [address] Essential (primary) hypertension Social History Tobacco Use Types Packs/Day Years Used Date Smoking Tobacco: Heavy Smoker Comments:Smoking History Pac ks/day: 0.5 Packs Alcohol Use Standard Drinks/Week Comments Yes 0 (1 standard drink = 0.6 oz pur e alcohol) Sex and Gender Information Value Date Recorded Sex Assigned at Not on file 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 Gender Identity Not on file Sexual Orientation [...] Comments URINE MICROSCOPY Routine 12/03/2016 3:10 PM GLASSWARE ENGRAVER URINALYSIS Routine 12/03/2016 3:10 PM GLASSWARE ENGRAVER SERUM THYROID-STIMULATING HORMONE (TSH) Routine 12/03/2016 3:07 PM GLASSWARE ENGRAVER SERUM LIPID PANEL Routine 12/03/2016 3:0 7 PM GLASSWARE ENGRAVER SERUM GLUCOSE Routine 12/03/2016 3:07 PM GLASSWARE ENGRAVER PLASMA COMPREHENSIVE METABOLIC PANEL Routine 12/03/2016 3:07 PM GLASSWARE ENGRAVER BLOOD CELL COUNT (CBC) Routine 7 3:07 PM GLASSWARE ENGRAVER BLOOD CELL MORPHOLOGIC EXAM Routine 12/03/2016 3:07 PM GLASSWARE ENGRAVER DISCHARGE LABORATORY CUMULATIVE REPORT 12/03/2016 documented in this encounter Results * (ABNORMAL) Urinalysis (12/03/2016 3:10 PM GLASSWARE ENGRAVER) Color, ur Yellow Yellow CDR HISTOR ICAL [...] CDR HISTORICAL RESULTS Urine 12/03/2016 3:10 PM GLASSWARE ENGRAVER us Darius Fernández MD LAB BLOOD ORDERABLES Final Re sult CDR HISTORICAL RESULTS * (ABNORMAL) Urine microscopy (12/03/2016 3:10 PM GLASSWARE ENGRAVER) RBC, ur 4(H) 0 - 3 /hpf CDR HISTO RICAL RESULTS WBC, ur 0 0 - 5 /hpf CDR HISTO RICAL RESULTS Bacteria, ur Negative Trace CDR HIS TORICAL RESULTS Epithelial cells, renal, ur 0 0 - 0 /hpf CDR HISTORICAL RESULTS Mucus, ur Small /hpf CDR HISTOR ICAL RESULTS Urine 12/03/2016 3:10 PM GLASSWARE ENGRAVER Darius Fernández MD LAB BLOOD ORDERABLES Final Re sult Performing Organization Address [facility] de Phone Number CDR HISTORICAL RESULTS * Serum thyroid-stimulating hormone (TSH) (12/03/2016 3:07 PM GLASSWARE ENGRAVER) TSH 1.52 0.30 - 4.20 mcIUnits/m l CDR HISTORICAL RESULTS Comment: Interpretive Data Hyperthyroid: ??<0.1 mcIUnit/mL Hypothyroid: ??>12.0 mcIUnit/mL Current interpretive data was last revised on 00. Serum 12/03/2016 3:07 PM GLASSWARE ENGRAVER Darius Fernández MD LAB BLOOD ORDERABLES Final Re sult Performing Organization Address [facility] de Phone Number CDR HISTORICAL RESULTS * Serum lipid panel (12/03/2016 3:07 PM GLASSWARE ENGRAVER) Cholesterol 150 30 - 200 mg/dl CDR [...] last revised 2015. Serum 12/03/2016 3:07 PM GLASSWARE ENGRAVER us Darius Fernández MD LAB BLOOD ORDERABLES Final Re sult CDR HISTORICAL RESULTS * (ABNORMAL) Plasma comprehensive metabolic panel (12/03/2016 3:07 PM GLASSWARE ENGRAVER) Sodium 145 135 - 145 mmol/L CDR [...] CDR HISTORICAL RESULTS Plasma 12/03/2016 3:07 PM GLASSWARE ENGRAVER Darius Fernández MD LAB BLOOD ORDERABLES Final Re [facility] Performing Organization Address [facility] de Phone Number CDR HISTORICAL RESULTS * Serum glucose (12/03/2016 3:07 PM GLASSWARE ENGRAVER) Glucose 74 70 - 199 mg/dl CDR HISTORICAL RESULTS Serum 12/03/2016 3:07 PM GLASSWARE ENGRAVER Darius Fernández MD LAB BLOOD ORDERABLES Final Re sult Performing Organization Address [facility] de Phone Number CDR HISTORICAL RESULTS * (ABNORMAL) Blood cell count (CBC) (12/03/2016 3:07 PM GLASSWARE ENGRAVER) WBC 9.2 3.8 - 9.9 K/cumm CDR [...] RESULTS Blood specimen (specimen) 12/03/2016 3:07 PM GLASSWARE ENGRAVER Darius Fernández MD LAB BLOOD ORDERABLES Final Re sult CDR HISTORICAL RESULTS * Blood cell morphologic exam (12/03/2016 3:07 PM GLASSWARE ENGRAVER) Neutrophils 65.8 % CDR HIST ORICAL RESULTS [...] RESULTS Blood specimen (specimen) 12/03/2016 3:07 PM GLASSWARE ENGRAVER Darius Fernández MD LAB BLOOD ORDERABLES Final Re sult CDR HISTORICAL RESULTS * DISCHARGE LABORATORY CUMULATIVE REPORT (12/03/2016) Narrative 12/03/2016 Ordered by an unspecified provider. Historical Provider LAB BLOOD ORDERABLES Carrie l Result documented in this encounter Visit Diagnoses Diagnosis Essential (primary) hypertension Unspecified essential hypertension documented in this encounter Care Teams Lurer Relationship Specialty Start Date End Date Darius Fernández MD [address] Zach ESCOBAR [address] [place] [address] PCP - General 12/03/16 12/29/16 documented as of this encounter
--- OUTSIDE RECORDS SUMMARY | 2024-11-07 14:21 | XMS_ITS | Encounter Summary ---
Author Organization [facility] Facility Care Team Providers Care Millwright Instructor Name Role Phone Unavailable Primary Care Provider Unavailabl e Encounter Details Date Type Department Care Team (Late st Contact Info) Description 12/03/2014 9:15 PM EMC STORAGE ARCHITECT - 12/03/2014 9:27 PM EMC STORAGE ARCHITECT Hospital Encounter [facility] Social History Tobacco Use Types Packs/Day Years Used Date Smoking Tobacco: Never Assessed Sex and Gender Information Value Date Recorded Sex Assigned at Not on file Legal Sex Male 2:37 PM EMC STORAGE ARCHITECT Gender Identity Not on file Sexual Orientation Not on file documented as of this encounter Plan of Treatment Not on file documented as of this encounter Visit Diagnoses Not on filedocumented in this encounter
--- OUTSIDE RECORDS SUMMARY | 2024-11-07 14:21 | XMS_ITS | Encounter Summary ---
Author Organization [facility] Facility Care Team Providers Care Hot Mill Worker Name Role Phone Unavailable Primary Care Provider Unavailabl e Encounter Details Date Type Department Care Team (Latest Contact Info) Description 07/02/2016 2:21 PM CDT - 07/02/2016 11:59 PM CDT Hospital Encounter [facility] CL[facility]CON[facility] Clemente MD [address] [place] [address] Essential (primary) hypertension; Other chronic pancreatitis (CMS/HCC); Cyst of pancreas; Uncomplicated alcohol abuse; Cigarette nicotine dependence, uncomplicated Social History Tobacco Use Types Packs/Day Years Used Date Smoking Tobacco: Never Assessed Sex and Gender Information Value Date Recorded Sex Assigned at Not on file 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
--- OUTSIDE RECORDS SUMMARY | 2024-11-07 14:21 | XMS_ITS | Encounter Summary ---
Author Organization [facility] Facility Care Team Providers Care Bridge Game Director Name Role Phone Unavailable Primary Care Provider Unavailabl e Encounter Details Date Type Department Care Team (Late st Contact Info) Description 07/29/2016 2:20 PM CDT - 07/29/2016 11:59 PM T Hospital [facility] MD [address] [address] Social History Tobacco Use Types Packs/Day Years Used Date Smoking Tobacco: Never Assessed Sex and Gender Information Value Date Recorded Sex Assigned at Not on file 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
--- OUTSIDE RECORDS SUMMARY | 2024-11-07 14:21 | XMS_ITS | Encounter Summary ---
Author Organization [facility] Facility Care Team Providers Care Home Visit Field Care Manager Name Role Phone Unavailable Primary Care Provider Unavailabl e Encounter Details Date Type Department Care Team (Late st Contact Info) Description 07/12/2013 10:12 AM CDT - 07/12/2013 4:00 PM T Hospital Encounter [facility] Christiano Heller MD [address] [address] Acute pancreatitis; Cyst and pseudocyst of pancreas; Essential hypertension; Pain in joint, shoulder region; Tobacco use disorder; Esophageal reflux; Impotence of organic origin; Pain in soft tissues of limb Social History Tobacco Use Types Packs/Day Years Used Date Smoking Tobacco: Never Assessed Sex and Gender Information Value Date Recorded Sex Assigned at Not on file 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
--- OUTSIDE RECORDS SUMMARY | 2024-11-07 14:21 | XMS_ITS | Encounter Summary ---
Author Organization [facility] Healthcare Address [address] [place] [address] Care Team Providers Care Food Service Assistant Name Role Phone Darius Fernández MD Primary Care Provider [phone] Encounter Details Date Type Department Care Team (Late st Contact Info) Description 12/30/2016 9:12 AM MICROSOFT ARCHITECT - 12/30/2016 11:59 PM [facility] Hospital Encounter [facility] OP INTERIM [phone] Darius Fernández MD [facility] [facility] [address] [address] Discharge Disposition: Discharge to home or self care Social History Tobacco Use Types Packs/Day Years Used Date Smoking Tobacco: Heavy Smoker Comments:Smoking History Pac ks/day: 0.5 Packs Alcohol Use Standard Drinks/Week Comments Yes 0 (1 standard drink = 0.6 oz pur e alcohol) Sex and Gender Information Value Date Recorded Sex Assigned at Not on file Legal Sex Male 2:37 PM MICROSOFT ARCHITECT Gender Identity Not on file Sexual [...] on filedocumented in this encounter Care Teams Food Service Assistant Relationship Specialty Start Date End Date Darius Fernández MD [facility] [facility] [address] Zach ESCOBAR [address] [place] [id number] PCP - General 12/30/16 01/27/17 documented as of this encounter
--- OUTSIDE RECORDS SUMMARY | 2024-11-07 14:21 | XMS_ITS | Encounter Summary ---
Author Organization [facility] Facility Care Team Providers Care Adz Worker Name Role Phone Unavailable Primary Care Provider Unavailabl e Encounter Details Date Type Department Care Team (Late st Contact Info) Description 04/09/2014 11:41 AM CDT Hospital Encounter [facility] Rocco Brambila MD [address] [place] [address] Cyst and pseudocyst of pancreas; Acute pancreatitis; Other pancreatic disorder Social History Tobacco Use Types Packs/Day Years Used Date Smoking Tobacco: Never Assessed Sex and Gender Information Value Date Recorded Sex Assigned at Not on file 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 ACC# ??Date Time ??Exam [id number] Apr 09, 2014 13:05:00 35546 MRI Abdomen wwo contrast [id number] Apr 09, 2014 13:05:00 24920 3-D Rendering on Modality EXAMINATION: 1. ??MAGNETIC [...] agrees with it. ACC# Date Time Exam [id number] Apr 09, 2014 13:05:00 [id number] MRI Abdomen wwo contrast [id number] Apr 09, 2014 13:05:00 52640 3-D Rendering on Modality EXAMINATION: 1. MAGNETIC [...] agrees with it. ACC# ??Date Time ??Exam [id number] Apr 09, 2014 13:05:00 09954 MRI Abdomen wwo contrast [id number] Apr 09, 2014 13:05:00 11518 3-D Rendering on Modality EXAMINATION: 1. ??MAGNETIC [...] agrees with it. ACC# Date Time Exam [id number] Apr 09, 2014 13:05:00 05795 MRI Abdomen wwo contrast [id number] Apr 09, 2014 13:05:00 97132 3-D Rendering on Modality EXAMINATION: 1. MAGNETIC [...]
--- OUTSIDE RECORDS SUMMARY | 2024-11-07 14:21 | XMS_ITS | Encounter Summary ---
Author Organization [facility] Facility Care Team Providers Care Senior Restaurant Manager Name Role Phone Unavailable Primary Care Provider Unavailabl e Encounter Details Date Type Department Care Team (Latest Contact Info) Description 12/07/2013 10:04 AM COMPUTER PUBLISHER - 12/07/2013 4:00 PM COMPUTER PUBLISHER Hospital En[facility] Christiano Heller MD [address] [place] [address] Other follow-up examination; Acute pancreatitis; Cyst and [...] file Legal Sex Male 2:37 PM COMPUTER PUBLISHER Gender Identity Not on file Sexual Orientation Not on file documented as of this encounter Plan of Treatment Not on file documented as of this encounter Procedures Procedure Name Priority Date/Time Associated Diagnosis Comments PLASMA COMPREHENSIVE METABOLIC PANEL Routine 12/07/2013 11:06 AM COMPUTER PUBLISHER URINALYSIS Routine 12/07/2013 10:42 AM COMPUTER PUBLISHER DISCHARGE LABORATORY CUMULATIVE REPORT Routine 12/07/2013 12:00 AM COMPUTER PUBLISHER documented in this encounter Results * Plasma comprehensive metabolic panel (12/07/2013 11:06 AM COMPUTER PUBLISHER) Sodium 141 135 - 145 mmol/L HISTORICAL [...] HISTORICAL RESULTS Plasma 12/07/2013 11:0 6 AM COMPUTER PUBLISHER Evie Licona MD LAB BLOOD ORDERABLES Final Result Performing Organization Address City/[facility] de Phone Number HISTORICAL RESULTS * Urinalysis (12/07/2013 10:42 AM COMPUTER PUBLISHER) Pathologist [facility] Color, ur Light-Yellow Yellow HISTORI BART RESULTS [...] HISTORICAL RESULTS Urine 12/07/2013 10:4 2 AM COMPUTER PUBLISHER Evie Licona MD LAB BLOOD ORDERABLES Final Result HISTORICAL RESULTS * Discharge Laboratory Cumulative Report (12/07/2013 12:00 AM COMPUTER PUBLISHER) 12/07/2013 Narrative HISTORICAL RESULTS - 12/07/2013 3:32 PM COMPUTER PUBLISHER ?[facility] ?Department of Laboratories ? One [facility] [place] ? [address] [address] Patient Name: ??YARIEL HILL Aleena Med Rec Number: [id number] Fin Number: ?[id number] Date: ?1970 Sex/Age: ? Male 43 years Admit Date: ?12/07/2013 Discharge Date: 12/07/2013 Doctor: ?[facility] Facility: ?[facility] Location: ?[facility] Chart Printed: 12/07/2013 15:32 ?? [...] ?URINALYSIS ?Macroscopic ?Test: Color ? Clarity ??Specific Mission ? Reference: [Yellow] ?[Clear] ??[1.003-1.030] ? Units: [...]
--- OUTSIDE RECORDS SUMMARY | 2024-11-07 14:21 | XMS_ITS | Encounter Summary ---
Author Organization [facility] Facility Care Team Providers Care Boilermaker'S Assistant Name Role Phone Unavailable Primary Care Provider Unavailabl e Encounter Details Date Type Department Care Team (Late st Contact Info) Description 06/12/2013 3:41 PM CDT - 06/12/2013 8:27 PM CDT Hospital Encounter [facility] Mary Ann Bernrado Pain in soft tissues of limb; History of other diseases of digestive system Social History Tobacco Use Types Packs/Day Years Used Date Smoking Tobacco: Never Assessed Sex and Gender Information Value Date Recorded Sex Assigned at Not on file Legal Sex Male 2:37 PM NURSING INFORMATICS SPECIALIST Gender Identity Not on file Sexual [...] agrees with it. ACC# ??Date Time ??Exam [id number] Jun 12, 2013 18:08:00 16736 Knee Complete min 4 views L EXAMINATION: [...] agrees with it. ACC# Date Time Exam [id number] Jun 12, 2013 18:08:00 53452 Knee Complete min 4 views L EXAMINATION: [...] metabolic panel (06/12/2013 5:50 PM CDT) Pathologist [facility] Sodium 143 135 - 145 mmol/L HISTORICAL [...] count (CBC) (06/12/2013 5:50 PM CDT) Pathologist [facility] WBC 8.4 3.8 - 9.8 K/cumm HISTORICAL [...] ORDERABLES Final Resu lt Performing Organization Address [facility] de Phone Number HISTORICAL RESULTS * Blood erythrocyte sedimentation rate (ESR) (06/12/2013 5:50 PM CDT) Pathologist [facility] Erythrocyte sedimentation rate 9.0 0.0 - 12.0 mm/hr HISTORICAL RESULTS Blood specimen (specimen) 06/12/2013 5:50 PM CDT Mary Ann Bernardo LAB BLOOD ORDERABLES Final Resu lt Performing Organization Address [facility] de Phone [...] ORDERABLES Final Resu lt Performing Organization Address [facility] de Phone Number HISTORICAL RESULTS * Discharge Laboratory Cumulative Report (06/12/2013 12:00 AM CDT) 06/12/2013 Narrative HISTORICAL RESULTS - 06/13/2013 3:16 AM CDT ?[facility] ?Department of Laboratories ? One [facility] [place] ? [place] [address] Patient Name: ??YARIEL HILL Med Rec Number: [id number] Fin Number: ?[id number] Date: ?1970 Sex/Age: ? Male 43 years Admit Date: ?06/12/2013 Discharge Date: 06/12/2013 Doctor: ?Mary Ann Bernardo S Facility: ?[facility] Location: ?EM3-12 Chart Printed: 06/13/2013 03:16 ?? [...] ?Test: Neut Pct Auto ??Lymph Pct Auto ??Hardy Pct Auto ? Reference: [38.7-74.5] ?[20.0-54.3] ? [4.3-13.5] ? Units: % ?% ? % 06/12/2013 ?? 17:50:55 ?? 60.9 ? 27.4 ?6.0 ?Test: Eos Pct Auto ??Baso Pct Auto ??Neut Abs Auto ? Reference: [0.0-6.0] ? [0.0-3.0] ?[1.8-6.6] ? Units: % ? % ?K/cumm 06/12/2013 ?? 17:50:55 ?? 5.1 ? 0.6 ?5.1 ?Test: Lymph Abs Auto ??Hardy Abs Auto ??Eos Abs Auto ? Reference: [...]
--- OUTSIDE RECORDS SUMMARY | 2024-11-07 14:21 | XMS_ITS | Encounter Summary ---
Author Organization [facility] Facility Care Team Providers Care Patient Relations Director Name Role Phone Unavailable Primary Care Provider Unavailabl e Encounter Details Date Type Department Care Team (Late st Contact Info) Description 08/02/2013 1:00 PM CDT - 08/02/2013 4:00 PM CDT Hospital Encounter [facility] Modesto Durham MD [address] 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
--- OUTSIDE RECORDS SUMMARY | 2024-11-07 14:21 | XMS_ITS | Encounter Summary ---
Author Organization [facility] Facility Care Team Providers Care Web Services Architect Name Role Phone Unavailable Primary Care Provider Unavailabl e Encounter Details Date Type Department Care Team (Late st Contact Info) Description 10/26/2014 2:54 PM PROCESS MACHINE OPERATOR - 10/26/2014 9:34 PM PROCESS MACHINE OPERATOR Hospital Encounter [facility] Cheikh Gusman MD [address] [facility] [address] [place] [address] Abdominal pain; Esophageal reflux; Essential hypertension; Cyst and pseudocyst of pancreas; Encounter for long-term (current) use of other medications; Tobacco use disorder Social History Tobacco Use Types Packs/Day Years Used Date Smoking Tobacco: Never Assessed Sex and Gender Information Value Date Recorded Sex Assigned at Not on file Legal Sex Male 2:37 PM PROCESS MACHINE OPERATOR Gender Identity Not on file Sexual Orientation Not on file documented as of this encounter Plan of Treatment Not on file documented as of this encounter Procedures Procedure Name Priority Date/Time Associated Diagnosis Comments SERUM LIPASE Routine 10/26/2014 3:52 PM PROCESS MACHINE OPERATOR PLASMA HEPATIC FUNCTION PANEL Routine 10/26/2014 3:52 PM PROCESS MACHINE OPERATOR PLASMA BASIC METABOLIC PANEL Routine 10/26/2014 3:52 PM PROCESS MACHINE OPERATOR BLOOD CELL COUNT (CBC) Routine 10/26/2014 3:52 PM PROCESS MACHINE OPERATOR DISCHARGE LABORATORY CUMULATIVE REPORT Routine 10/26/2014 12:00 AM PROCESS MACHINE OPERATOR documented in this encounter Results * Plasma hepatic function panel (10/26/2014 3:52 PM PROCESS MACHINE OPERATOR) Pathologist [facility] Protein, pl 7.3 6.5 - 8.5 g/dl HISTORICAL RESULTS Alb 4.5 3.6 - 5.0 g/dl HISTORICAL RESULTS Bilirubin 0.4 0.3 - 1.1 mg/dl HISTORICAL RESULTS Bilirubin, direct 0.1 0.0 - 0.3 mg/dl HISTORICAL RESULTS Alk phos 60 38 - 126 Units/L HISTORICAL RESULTS AST 29 11 - 47 Units/L HISTORICAL RESULTS ALT 14 7 - 53 Units/L HISTORICAL RESULTS Plasma 10/26/2014 3:52 PM PROCESS MACHINE OPERATOR Anirudh Carrillo MD LAB BLOOD ORDERABLES Final Res ult Performing Organization Address [facility] de Phone Number HISTORICAL RESULTS * (ABNORMAL) Plasma basic metabolic panel (10/26/2014 3:52 PM PROCESS MACHINE OPERATOR) [facility] Sodium 139 135 - 145 mmol/L HISTORICAL [...] mg/dl HISTORICAL RESULTS Plasma 10/26/2014 3:52 PM PROCESS MACHINE OPERATOR Anirudh Carrillo MD LAB BLOOD ORDERABLES Final Res ult Performing Organization Address [facility] de Phone Number HISTORICAL RESULTS * Serum lipase (10/26/2014 3:52 PM PROCESS MACHINE OPERATOR) Pathologist [facility] Lip 35 0 - 99 Units/L HISTORICAL RESULTS Serum 10/26/2014 3:52 PM PROCESS MACHINE OPERATOR us Anirudh Carrillo MD LAB BLOOD ORDERABLES Final Res ult HISTORICAL RESULTS * (ABNORMAL) Blood cell count (CBC) (10/26/2014 3:52 PM PROCESS MACHINE OPERATOR) [facility] 32.1 26.7 - 33.7 pg HISTORICAL [...] RESULTS Blood specimen (specimen) 10/26/2014 3:52 PM PROCESS MACHINE OPERATOR us Anirudh Carrillo MD LAB BLOOD ORDERABLES Final Res ult HISTORICAL RESULTS * Discharge Laboratory Cumulative Report (10/26/2014 12:00 AM PROCESS MACHINE OPERATOR) 10/26/2014 Narrative HISTORICAL RESULTS - 10/27/2014 3:17 AM PROCESS MACHINE OPERATOR ?[facility] ?Department of Laboratories ? One [facility] [place] ? [address] [address] [address] Patient Name: ??RUDYYARIEL CASPER Med Rec Number: [id number] Fin Number: ?[id number] Date: ?1970 Sex/Age: ? Male 44 years Admit Date: ?10/26/2014 Discharge Date: 10/26/2014 Doctor: ?Cheikh Damon Facility: ?[facility] Location: ?EM3-1 Chart Printed: 10/27/2014 03:17 ?? [...] ?Test: Neut Pct Auto ??Lymph Pct Auto ??[place] Pct Auto ? Reference: [38.7-74.5] ?[20.0-54.3] ? [4.3-13.5] ? Units: % ?% ? % 10/26/2014 ?? 15:52:18 ?? 69.0 ? 23.6 ?4.8 ?Test: Eos Pct Auto ??Baso Pct Auto ??Neut Abs Auto ? Reference: [0.0-6.0] ? [0.0-3.0] ?[1.8-6.6] ? Units: % ? % ?K/cumm 10/26/2014 ?? 15:52:18 ?? 2.0 ? 0.6 ?6.8 ??H ? AUTOMATED WHITE CELL DIFFERENTIAL ?Test: Lymph Abs Auto ??[place] Abs Auto ??Eos Abs Auto ? Reference: [...]
--- OUTSIDE RECORDS SUMMARY | 2024-11-07 14:21 | XMS_ITS | Encounter Summary ---
Author Organization [facility] Facility Care Team Providers Care Cane Weigher Helper Name Role Phone Unavailable Primary Care Provider Unavailabl e Encounter Details Date Type Department Care Team (Latest Contact Info) Description 07/23/2016 10:28 AM CDT - 07/23/2016 11:59 PM T Hospital Encounter [facility] Christiano Yin MD [address] [address] Uncomplicated alcohol abuse; Essential (primary) hypertension; Other chronic pancreatitis (CMS/HCC); Nicotine dependence, uncomplicated; Other senior living (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; Family history of ischemic heart disease and other diseases of the circulatory system; Family history of malignant neoplasm of kidney Social History Tobacco Use Types Packs/Day Years Used Date Smoking Tobacco: Never Assessed Sex and Gender Information Value Date Recorded Sex Assigned at Not on file 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
--- OUTSIDE RECORDS SUMMARY | 2024-11-07 14:21 | XMS_ITS | Encounter Summary ---
Author Organization [facility] Facility Care Team Providers Care Time Recorder Name Role Phone Unavailable Primary Care Provider Unavailabl e Encounter Details Date Type Department Care Team (Latest Contact Info) Description 01/14/2015 8:20 PM CDT - 01/15/2015 6:32 PM CDT [facility] Nonspecific abnormal finding in stool contents; Cyst and pseudocyst of pancreas; Chronic pancreatitis (CMS/HCC) (HCC); Diarrhea; Essential hypertension; Esophageal reflux; Other chest pain; Tobacco use disorder; Nondependent alcohol abuse, in remission Social History Tobacco Use Types Packs/Day Years Used Date Smoking Tobacco: Never Assessed Sex and Gender Information Value Date Recorded Sex Assigned at Not on file 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 We will maintain [...] Noel M.D. 02/06/2015 04:53 P Jenn Robbins/homer #[id number] Editing MT: TD: 01/14/2015 20:16:00 cc: Rajinder [...] specimen (specimen) 01/15/2015 11:42 AM CDT Rajinder Adrinaa Noel LAB BLOOD ORDERABLES Final Res ult [...] for the diagnosis of myocardial infarction (Third [place] Definition of Myocardial Infarction. ??J Am Marcia Cardiol 2012;60:1581-98). Current interpretive data was last revised on 13. Serum 01/15/2015 2:43 AM CDT [employer] LAB BLOOD ORDERABLES Final Res ult Performing Organization Address [facility] Co de Phone Number HISTORICAL RESULTS * Blood ABO, Rh, indirect ab screen (01/15/2015 2:43 AM CDT) ABO, Rho(D) O Positive HISTORI BART RESULTS Go, indirect Negative HISTORICAL RESULTS Blood specimen (specimen) 01/15/2015 2:43 AM CDT [employer] LAB BLOOD ORDERABLES Final Res ult Performing Organization Address City/[facility] Co de Phone Number HISTORICAL RESULTS [...] HISTORICAL RESULTS - 01/15/2015 7:20 PM CDT ?[facility] ?Department of Laboratories ? One [facility] [address] ? [place], [place] [address] Patient Name: ??YARIEL HILL [facility] Rec Number: [id number] Fin Number: ?[id number] Date: ?1970 Sex/Age: ? Male 44 years Admit Date: ?01/14/2015 Discharge Date: 01/15/2015 Doctor: ?MEDICINE , 1302 Facility: ?[facility] Location: ?[id number] Chart Printed: 01/15/2015 19:20 ?? * Abnormal [...] for the diagnosis of myocardial infarction (Third [place] Definition of Myocardial Infarction. ??J Am Amrcia Cardiol 2012;60:1581-98). Current interpretive data was last [...] ?Test: Neut Pct Auto ??Lymph Pct Auto ??[place] Pct Auto ? Reference: [38.7-74.5] ?[20.0-54.3] ? [...] ? 0.6 ?4.8 ?Test: Lymph Abs Auto ??[place] Abs Auto ??Eos Abs Auto ? Reference: [...] updated copy of the Tool Book at [email or web address]/pharmacy.nsf Current Interpretive Data was last revised 2012. [...] CDT us Historical Provider LAB BLOOD ORDERABLES Carrei clemencia Result HISTORICAL RESULTS * CT Abdomen [...] agrees with it. ACC# ??Date Time ??Exam [id number] Jan 14, 2015 17:17:[id number] Abd & Pelvis wwo cont EXAMINATION: [...] BRAVO M.D. on Jan 15 2015 ??8:21A [id number] Procedure Note Provider, MD Rhett - 02/22/2017 VERÓNICA BRAVO M.D. SHARIF JUAREZ, FINAL REPORT The radiology attending physician has personally reviewed this study, and has reviewed and/or edited this written report and agrees with it. ACC# Date Time Exam [id number] Jan 14, 2015 17:17:[address] Abd & Pelvis wwo cont EXAMINATION: [...] BRAVO M.D. on Jan 15 2015 8:21A [id number] us Historical Provider MD MELÉNDEZ CT PROCEDURES [...] updated copy of the Tool Book at [email or web address]://[email or web address]/bjc/pharmacy.nsf Current Interpretive Data was last revised 2012. Plasma 01/14/2015 5:03 PM CDT Hung EMERSON LAB BLOOD ORDERABLES Final R esult Performing Organization Address [facility] de Phone Number HISTORICAL RESULTS * Blood ABO, Rh, indirect ab screen (01/14/2015 5:03 PM CDT) Go, indirect Negative HISTORICAL RESULTS ABO, Rho(D) O Positive HISTORI BART RESULTS Blood specimen (specimen) 01/14/2015 5:03 PM CDT Hung EMERSON LAB BLOOD ORDERABLES Final R esult Performing Organization Address [facility] de Phone Number HISTORICAL RESULTS * [...] ORDERABLES Fin al Result Performing Organization Address [facility] de Phone Number HISTORICAL RESULTS * Serum lipase (01/14/2015 1:30 PM CDT) Lip 29 0 - 99 Units/L HISTORICAL RESULTS Serum 01/14/2015 1:30 PM CDT Dung Neville MD LAB BLOOD ORDERABLES Fin al Result Performing Organization Address [facility] de Phone Number HISTORICAL RESULTS * Blood D-dimer (01/14/2015 1:30 PM CDT) Pathologist [facility] D-dimer 129 110 - 230 ng/ml D-DU [...] ORDERABLES Fin al Result Performing Organization Address [facility]/ZIP Co de Phone Number HISTORICAL RESULTS * (ABNORMAL) Plasma basic metabolic panel (01/14/2015 1:30 PM CDT) [facility] Sodium 141 135 - 145 mmol/L HISTORICAL [...] ORDERABLES Final Res ult Performing Organization Address [facility] Co de Phone Number HISTORICAL RESULTS * Serum troponin I (01/14/2015 1:30 PM CDT) Pathologist [facility] Troponin I <0.03 0.00 - 0.03 ng/ml HISTORICAL RESULTS Comment: Interpretive Data Serial determinations are recommended for the diagnosis of myocardial infarction (Third [place] Definition of Myocardial Infarction. ??J Am Marcia [...] agrees with it. ACC# ??Date Time ??Exam [id number] Jan 14, 2015 13:13:00 [id number] Chest 2 views Frontl & Lat EXAMINATION: [...] HUNG M.D. on Jan 14 2015 ??1:51P [id number] Procedure Note Provider, MD Rhett - 02/22/2017 EJ HUNG M.D. LANDY BANGURA M.D. FINAL REPORT The radiology attending physician has personally reviewed this study, and has reviewed and/or edited this written report and agrees with it. ACC# Date Time Exam [id number] Jan 14, 2015 13:13:00 [id number] Chest 2 views Frontl & Lat EXAMINATION: [...] HUNG M.D. on Jan 14 2015 1:51P [id number] us Historical Provider MD MELÉNDEZ XR PROCEDURES [...]
--- OUTSIDE RECORDS SUMMARY | 2024-11-07 14:21 | XMS_ITS | Encounter Summary ---
Author Organization [facility] Facility Care Team Providers Care Hand Tufter Name Role Phone Unavailable Primary Care Provider Unavailabl e Encounter Details Date Type Department Care Team (Late st Contact Info) Description 06/27/2013 1:50 PM CDT Hospital Encounter [facility] Rocco Brambila MD [address] [place] [address] Cyst and pseudocyst of pancreas; Chronic pancreatitis (CMS/HCC) (HCC) Social History Tobacco Use Types Packs/Day Years Used Date Smoking Tobacco: Never Assessed Sex and Gender Information Value Date Recorded Sex Assigned at Not on file 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 HISTORICAL RESULTS Report charted 06/28/2013 HISTORICAL RESULTS Referral specimen, test result [id number] U/L HISTORICAL RESULTS Specimen type PANCREATIC CYST FLUID HISTORICAL RESULTS Test name, chem AMYLASE BODY FLUID HISTORICAL RESULTS Miscellaneous 06/27/2013 11: 08 AM CDT Narrative HISTORICAL RESULTS - 06/28/2013 7:32 AM CDT Test performed at [facility], 1 [facility], [address]. Historical Provider MD LAB BLOOD ORDERABLES Carrie l Result HISTORICAL RESULTS * Referred test (06/27/2013 11:08 AM CDT) Referral lab, chem Test performed at [facility], [address], [address]. HISTORICAL RESULTS Report charted 06/28/2013 HISTORICAL RESULTS Referral specimen, test result 52.49 ng/ml HISTORICAL RESULTS Specimen type PANCREATIC CYST FLUID HISTORICAL RESULTS Test name, chem CEA BODY FLUID HISTORICAL RESULTS Miscellaneous 06/27/2013 11: 08 AM CDT Narrative HISTORICAL RESULTS - 06/28/2013 7:30 AM CDT Test performed at [facility], 1 [facility], [address]. Historical Provider MD LAB BLOOD ORDERABLES Carrie [...]
--- OUTSIDE RECORDS SUMMARY | 2024-11-07 14:21 | XMS_ITS | Encounter Summary ---
Author Organization [facility] Healthcare Address [address] [place] [address] Care Team Providers Care Shot Polisher Name Role Phone Unavailable Primary Care Provider Unavailabl e Encounter Details Date Type Department Care Team (Latest Contact Info) Description 11/26/2015 4:28 PM APPLIANCE SERVICE REPRESENTATIVE - 11/26/2015 7:32 PM APPLIANCE SERVICE REPRESENTATIVE Hospital Encounter [facility] Kayy Tom MD [address] [place] [address] Major depressive disorder, single episode (CMS/HCC); Essential (primary) hypertension Social History Tobacco Use Types Packs/Day Years Used Date Smoking Tobacco: Never Assessed Sex and Gender Information Value Date Recorded Sex Assigned at Not on file Legal Sex Male 2:37 PM APPLIANCE SERVICE REPRESENTATIVE Gender Identity Not on file Sexual Orientation Not on file documented as of this encounter Last Filed Vital Signs Vital Sign Reading Time Taken Comments Blood Pressure 131/82 11/26/2015 4:44 PM APPLIANCE SERVICE REPRESENTATIVE Pulse 84 11/26/2015 4:44 PM APPLIANCE SERVICE REPRESENTATIVE Temperature 36.6 ??C (97.9 ??F) 11/26/2015 4:44 PM CS T Respiratory Rate - - Oxygen Saturation 98% 11/26/2015 4:44 PM APPLIANCE SERVICE REPRESENTATIVE Inhaled Oxygen Concentration - - Weight 59 kg (130 lb) 11/26/2015 4:44 PM APPLIANCE SERVICE REPRESENTATIVE Height 170.2 cm (5' 7 ) 11/26/2015 4:44 PM APPLIANCE SERVICE REPRESENTATIVE Body Mass Index 20.36 11/26/2015 4:44 PM APPLIANCE SERVICE REPRESENTATIVE documented in this encounter Plan of Treatment Not on file documented as of this encounter Visit Diagnoses Diagnosis Major depressive disorder, single episode Major depressive disorder, single episode, unspecified Essential (primary) hypertension Unspecified essential hypertension documented in this encounter
--- OUTSIDE RECORDS SUMMARY | 2024-11-07 14:21 | XMS_ITS | Encounter Summary ---
Author Organization [facility] Healthcare Address [address] [place] [address] Care Team Providers Care Risk Control Analyst Name Role Phone Unavailable Primary Care Provider Unavailabl e Encounter Details Date Type Department Care Team (Latest Contact Info) Description 12/13/2014 3:13 PM SHEET WRITER - 12/13/2014 6:42 PM SHEET WRITER Hospital Encounter [facility] [place] [address] [address] Abnormal levels of other serum enzymes; Tobacco use disorder Social History Tobacco Use Types Packs/Day Years Used Date Smoking Tobacco: Never Assessed Sex and Gender Information Value Date Recorded Sex Assigned at Not on file Legal Sex Male 2:37 PM SHEET WRITER Gender Identity Not on file Sexual Orientation Not on file documented as of this encounter Last Filed Vital Signs Vital Sign Reading Time Taken Comments Blood Pressure 129/76 12/13/2014 3:26 PM SHEET WRITER Pulse 82 12/13/2014 3:26 PM SHEET WRITER Temperature 37.3 ??C (99.2 ??F) 12/13/2014 3:26 PM CS T Respiratory Rate - - Oxygen Saturation 100% 12/13/2014 3:26 PM SHEET WRITER Inhaled Oxygen Concentration - - Weight 55.3 kg (122 lb) 12/13/2014 3:26 PM SHEET WRITER Height 170.2 cm (5' 7 ) 12/13/2014 3:26 PM SHEET WRITER Body Mass Index 19.11 12/13/2014 3:26 PM SHEET WRITER documented in this encounter Plan of Treatment Not on file documented as of this encounter Procedures Procedure Name Priority Date/Time Associated Diagnosis Comments UA WITH CULTURE REFLEX Routine 5 5:45 PM SHEET WRITER CBC WITH AUTO DIFFERENTIAL Routine 12/13/2014 5:03 PM SHEET WRITER LIPASE Routine 12/13/2014 5:03 PM SHEET WRITER AMYLASE Routine 12/13/2014 5:03 PM SHEET WRITER COMPREHENSIVE METABOLIC PANEL Routine 12/13/2014 5:03 PM SHEET WRITER documented in this encounter Results * (ABNORMAL) UA with Culture Reflex (12/13/2014 5:45 PM SHEET WRITER) Ur Collection Type CLEAN CATCH 12/13/2014 6:07 PM [facility] HISTORICAL RESULTS Ur Culture Indicated? C&S NOT INDICATED 12/13/2014 6:07 PM [facility] HISTORICAL RESULTS Urine Color COLORLESS YELLOW 12/13/2014 6:07 PM [facility] HISTORICAL RESULTS Urine Clarity CLEAR CLEAR 12/13/2014 6:07 PM [facility] HISTORICAL RESULTS Urine Glucose (UA) NORMAL NORMAL mg/dL 12/13/2014 6:07 PM [facility] HISTORICAL RESULTS Urine Bilirubin NEGATIVE NEGATIVE mg/dl 12/13/2014 6:07 PM [facility] HISTORICAL RESULTS Urine Ketones NEGATIVE NEGATIVE mg/dL 12/13/2014 6:07 PM [employer] HISTORICAL RESULTS Ur Specific [place] 1.003(L) 1.005 - 1.025 12/13/2014 6:07 PM [facility] HISTORICAL RESULTS Urine Blood NEGATIVE NEGATIVE mg/dl 12/13/2014 6:07 PM [facility] HISTORICAL RESULTS Urine pH 7.0 5.0 - 8.0 12/13/2014 6:07 PM [facility] HISTORICAL RESULTS Urine Protein NEGATIVE NEGATIVE mg/dL 12/13/2014 6:07 PM [facility] HISTORICAL RESULTS Urine Urobilinogen NORMAL NORMAL mg/dL 12/13/2014 6:07 PM [facility] HISTORICAL RESULTS Urine Nitrite NEGATIVE NEGATIVE 12/13/2014 6:07 PM [facility] HISTORICAL RESULTS Ur Leukocyte Esterase NEGATIVE NEGATIVE Khalif/ul Ur Microscopic Review Not Indicated 12/13/2014 5:45 PM SHEET WRITER 12/13/2014 6:02 PM SHEET WRITER Narrative [facility] HISTORICAL RESULTS - 12/13/2014 6:07 PM SHEET WRITER Collected By LMD ?? [address] LAB URINE ORDERABLES Final Re sult Performing Organization Address [facility]/ZIP Co de Phone Number [facility] HISTORICAL RESULTS * (ABNORMAL) Lipase (12/13/2014 5:03 PM SHEET WRITER) Lipase 193(H) 13 - 60 U/L 12/13/2014 5:03 PM SHEET WRITER 12/13/2014 5:06 PM SHEET WRITER Lisa Bustamante LAB BLOOD ORDERABLES Final Resu lt Performing Organization Address [facility] de Phone Number [facility] HISTORICAL RESULTS * Comprehensive metabolic panel (12/13/2014 5:03 PM SHEET WRITER) Sodium 141 135 - 145 mmol/L Potassium 4.1 3.3 - 5.1 mmol/L Chloride 100 96 - 108 mmol/L Carbon Dioxide 29 22 - 32 mmol/L Anion Gap 12 7 - 16 Glucose 78 70 - 100 mg/dL Comment:As of October 02 14 new normal range in use. BUN 7 6 - 20 mg/dL Creatinine 0.9 0.5 - 1.3 mg/dL 12/13/2014 5:31 PM [facility] HISTORICAL RESULTS Kidney Disease Stage > 90 mL/MIN 12/13/2014 5:31 PM [facility] HISTORICAL RESULTS Comment: NOTE; ??The GFR is [...] 8.6 - 10.0 mg/dL 12/13/2014 5:31 PM [facility] HISTORICAL RESULTS Total Protein 7.5 6.4 - 8.3 g/dL 12/13/2014 5:31 PM [facility] HISTORICAL RESULTS Albumin 4.5 3.5 - 5.2 g/dL 12/13/2014 5:31 PM [facility] HISTORICAL RESULTS Globulin 3.0 2.3 - 3.5 gm/dL 12/13/2014 5:31 PM [facility] Dydra HISTORICAL RESULTS Albumin/Globulin Ratio 1.5 1.1 - 1.8 12/13/2014 5:31 PM [facility] HISTORICAL RESULTS Total Bilirubin 0.4 0.0 - 1.2 mg/dL 12/13/2014 5:31 PM [employer] Dydra HISTORICAL RESULTS AST 19 0 - 40 U/L 12/13/2014 5:31 PM [employer] HISTORICAL RESULTS ALT 9 0 - 41 U/L 12/13/2014 5:31 PM [facility] HISTORICAL RESULTS Alkaline Phosphatase 58 40 - 129 U/L 12/13/2014 5:03 PM SHEET WRITER 12/13/2014 5:06 PM [facility] Lisa Yost [place] LAB BLOOD ORDERABLES Final Resu lt [facility] HISTORICAL RESULTS * (ABNORMAL) CBC with auto differential (12/13/2014 5:03 PM [facility]) WBC 7.5 4.6 - 10.2 x10 3/ul [...] Lymph % 25.0 5.0 - 45.0 % Amelia % 5.2 3.0 - 15.0 % Eos [...] - 0.2 x10 3/ul 12/13/2014 5:03 PM SHEET WRITER 12/13/2014 5:06 PM SHEET WRITER us Lisa Bustamante LAB BLOOD ORDERABLES Final Resu lt [facility] HISTORICAL RESULTS * (ABNORMAL) Amylase (12/13/2014 5:03 PM SHEET WRITER) Amylase 137(H) 28 - 100 U/L 12/13/2014 5:31 PM SHEET WRITER [facility] HISTORICAL RESULTS 12/13/2014 5:03 PM SHEET WRITER 12/13/2014 5:06 PM SHEET WRITER us Lisa Bustamante LAB BLOOD ORDERABLES Final Resu lt [facility] HISTORICAL RESULTS documented in this encounter Visit Diagnoses Diagnosis Abnormal levels of other serum enzymes Tobacco use disorder documented in this encounter
--- OUTSIDE RECORDS SUMMARY | 2024-11-07 14:21 | XMS_ITS | Encounter Summary ---
Author Organization [facility] Facility Care Team Providers Care Clinic Mgr Name Role Phone Unavailable Primary Care Provider Unavailabl e Encounter Details Date Type Department Care Team (Late st Contact Info) Description 10/14/2015 3:04 PM TODDLER CAREGIVER - 10/14/2015 9:10 PM TODDLER CAREGIVER [facility] [address] [place] [address] Alcohol abuse with uncomplicated intoxication (CMS/HCC); Adjustment disorder; Nonspecific elevation of levels of transaminase and lactic acid dehydrogenase (LDH); Acute pharyngitis due to other specified organisms; Other viral agents as the cause of diseases classified elsewhere; Gastro-esophageal reflux disease without esophagitis; Essential (primary) hypertension; 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 Social History Tobacco Use Types Packs/Day Years Used Date Smoking Tobacco: Never Assessed Sex and Gender Information Value Date Recorded Sex Assigned at Not on file Legal Sex Male 2:37 PM TODDLER CAREGIVER Gender Identity Not on file Sexual Orientation Not on file documented as of this encounter Plan of Treatment Not on file documented as of this encounter Procedures Procedure Name Priority Date/Time Associated Diagnosis Comments SERUM LIPASE Routine 10/14/2015 4:31 PM TODDLER CAREGIVER PLASMA HEPATIC FUNCTION PANEL Routine 10/14/2015 4:31 PM TODDLER CAREGIVER PLASMA BASIC METABOLIC PANEL Routine 10/14/2015 4:31 PM TODDLER CAREGIVER BLOOD CELL COUNT (CBC) Routine 10/14/2015 3:42 PM TODDLER CAREGIVER DISCHARGE LABORATORY CUMULATIVE REPORT 10/14/2015 documented in this encounter Results * (ABNORMAL) Plasma hepatic function panel (10/14/2015 4:31 PM TODDLER CAREGIVER) Pathologist [facility] Protein, pl 8.5 6.5 - 8.5 g/dl [...] Units/L HISTORICAL RESULTS Plasma 10/14/2015 4:31 PM TODDLER CAREGIVER Roe Ackerman MD LAB BLOOD ORDERABLES Final Result HISTORICAL RESULTS * (ABNORMAL) Plasma basic metabolic panel (10/14/2015 4:31 PM TODDLER CAREGIVER) Pathologist [facility] Sodium 144 135 - 145 mmol/L HISTORICAL [...] mg/dl HISTORICAL RESULTS Plasma 10/14/2015 4:31 PM TODDLER CAREGIVER Roe Ackerman MD LAB BLOOD ORDERABLES Final Result HISTORICAL RESULTS * Serum lipase (10/14/2015 4:31 PM TODDLER CAREGIVER) Lip 22 0 - 99 Units/L HISTORICAL RESULTS Serum 10/14/2015 4:31 PM TODDLER CAREGIVER Roe Ackerman MD LAB BLOOD ORDERABLES Final Result Performing Organization Address [facility] de Phone Number HISTORICAL RESULTS * Blood cell count (CBC) (10/14/2015 3:42 PM TODDLER CAREGIVER) WBC 6.7 3.8 - 9.8 K/cumm HISTORICAL [...] RESULTS Blood specimen (specimen) 10/14/2015 3:42 PM TODDLER CAREGIVER Roe Ackerman MD LAB BLOOD ORDERABLES Final [...]
--- OUTSIDE RECORDS SUMMARY | 2024-11-07 14:21 | XMS_ITS | Encounter Summary ---
Author Organization [facility] Facility Care Team Providers Care Music Professor Name Role Phone Unavailable Primary Care Provider Unavailabl e Encounter Details Date Type Department Care Team (Late st Contact Info) Description 03/21/2015 10:13 AM CDT - 03/21/2015 4:00 PM CDT Hospital Encounter [facility] Rocco Brambila MD [address] [place] [address] Mechanical complication due to other implant and [...] on file Legal Sex Male 2:37 PM RESTAURANT HOST/HOSTESS Gender Identity Not on file Sexual Orientation [...]
--- OUTSIDE RECORDS SUMMARY | 2024-11-07 14:21 | XMS_ITS | Encounter Summary ---
Author Organization [facility] Facility Care Team Providers Care Pharmaceutical Process Engineer Name Role Phone Unavailable Primary Care Provider Unavailabl e Encounter Details Date Type Department Care Team (Late st Contact Info) Description 03/21/2015 - 03/21/2015 11:59 PM CDT Hospital Encounter [facility] Rocco Brambila MD [address] [place] [address] Cyst and pseudocyst of pancreas; Chronic pancreatitis (CMS/HCC) (HCC) Social History Tobacco Use Types Packs/Day Years Used Date Smoking Tobacco: Never Assessed Sex and Gender Information Value Date Recorded Sex Assigned at Not on file Legal Sex Male 2:37 PM BARREL FILLER Gender Identity Not on file Sexual [...] agrees with it. ACC# ??Date Time ??Exam [id number] March 21, 2015 09:56:00 [id number] MRI Abdomen wwo contrast ACC# ??Date Time ??Exam [id number] March 21, 2015 09:56:00 [id number] MRI Abdomen wwo contrast EXAMINATION: 1. ??MAGNETIC [...] ALEMAN M.D. on Mar 21 2015 ??6:23P [id number] Procedure Note Provider, Historical, MD - 02/22/2017 ROBERTO ALEMAN M.D. MELVIN SHER, FINAL REPORT The radiology attending physician has personally reviewed this study, and has reviewed and/or edited this written report and agrees with it. ACC# Date Time Exam [id number] March 21, 2015 09:56:00 [id number] MRI Abdomen wwo contrast ACC# Date Time Exam [id number] March 21, 2015 09:56:00 [id number] MRI Abdomen wwo contrast EXAMINATION: 1. MAGNETIC [...] ALEMAN M.D. on Mar 21 2015 6:23P [id number] Historical Provider MD MELÉNDEZ MRI PROCEDURES Final [...] HISTORICAL RESULTS - 03/21/2015 11:21 AM CDT ?[facility] ?Department of Laboratories ? [address] [facility] [address] ? [place] [address] Patient Name: ??YARIEL HILL Aleena [facility] Rec Number: [id number] Fin Number: ?[id number] Date: ?1970 Sex/Age: ? Male 44 years Admit Date: ?03/21/2015 Discharge Date: 03/21/2015 Doctor: ?Rocco Moreno Facility: ?[facility] Location: ?[facility] Chart Printed: 03/21/2015 11:21 ?? [...]
--- OUTSIDE RECORDS SUMMARY | 2024-11-07 14:21 | XMS_ITS | Encounter Summary ---
Author Organization [facility] Facility Care Team Providers Care Sample Grinder Name Role Phone Unavailable Primary Care Provider Unavailabl e Encounter Details Date Type Department Care Team (Late st Contact Info) Description 10/20/2016 7:00 AM MANAGER FINANCE - 10/20/2016 11:59 PM MANAGER FINANCE [facility] Christiano Heller MD [address] [address] [place]ina Social History Tobacco Use Types Packs/Day Years Used Date Smoking Tobacco: Never Assessed Sex and Gender Information Value Date Recorded Sex Assigned at Not on file Legal Sex Male 2:37 PM MANAGER FINANCE Gender Identity Not on file Sexual Orientation Not on file documented as of this encounter Plan of Treatment Not on file documented as of this encounter Visit Diagnoses Not on filedocumented in this encounter
--- OUTSIDE RECORDS SUMMARY | 2024-11-07 14:21 | XMS_ITS | Encounter Summary ---
Author Organization [facility] Facility Care Team Providers Care Corporate Safety Coordinator Name Role Phone Unavailable Primary Care Provider Unavailabl e Encounter Details Date Type Department Care Team (Latest Contact Info) Description 11/19/2015 12:46 AM SWEEPER OPERATOR HIGHWAYS - 11/19/2015 4:23 AM SWEEPER OPERATOR HIGHWAYS Hospital Encounter [facility] Noemi Alan MD [address] [place] [address] Alcoholic gastritis without bleeding; Acute pancreatitis; Major depressive disorder, single episode (CMS/HCC); Uncomplicated alcohol abuse; 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; Nicotine dependence, uncomplicated Social History Tobacco Use Types Packs/Day Years Used Date Smoking Tobacco: Never Assessed Sex and Gender Information Value Date Recorded Sex Assigned at Not on file Legal Sex Male 2:37 PM SWEEPER OPERATOR HIGHWAYS Gender Identity Not on file Sexual Orientation Not on file documented as of this encounter Plan of Treatment Not on file documented as of this encounter Procedures Procedure Name Priority Date/Time Associated Diagnosis Comments SERUM LIPASE Routine 11/19/2015 2:26 AM SWEEPER OPERATOR HIGHWAYS PLASMA HEPATIC FUNCTION PANEL Routine 11/19/2015 2:26 AM SWEEPER OPERATOR HIGHWAYS PLASMA BASIC METABOLIC PANEL Routine 11/19/2015 2:26 AM SWEEPER OPERATOR HIGHWAYS BLOOD CELL COUNT (CBC) Routine 11/19/2015 2:26 AM SWEEPER OPERATOR HIGHWAYS DISCHARGE LABORATORY CUMULATIVE REPORT 11/19/2015 documented in this encounter Results * (ABNORMAL) Plasma hepatic function panel (11/19/2015 2:26 AM SWEEPER OPERATOR HIGHWAYS) Pathologist [facility] Protein, pl 7.6 6.5 - 8.5 g/dl HISTORICAL RESULTS Alb 5.0 3.6 - 5.0 g/dl HISTORICAL RESULTS Bilirubin 0.5 0.3 - 1.1 mg/dl HISTORICAL RESULTS Bilirubin, direct 0.1 0.0 - 0.3 mg/dl HISTORICAL RESULTS Alk phos 55 38 - 126 Units/L HISTORICAL RESULTS AST 63(H) 11 - 47 Units/L HISTORICAL RESULTS ALT 39 7 - 53 Units/L HISTORICAL RESULTS Plasma 11/19/2015 2:26 AM SWEEPER OPERATOR HIGHWAYS Devon Watson MD LAB BLOOD ORDERABLES Final Res ult Performing Organization Address [facility] de Phone Number HISTORICAL RESULTS * (ABNORMAL) Plasma basic metabolic panel (11/19/2015 2:26 AM SWEEPER OPERATOR HIGHWAYS) Pathologist [facility] Sodium 141 135 - 145 mmol/L HISTORICAL [...] mg/dl HISTORICAL RESULTS Plasma 11/19/2015 2:26 AM SWEEPER OPERATOR HIGHWAYS Devon Watson MD LAB BLOOD ORDERABLES Final Res ult Performing Organization Address City/[facility] Co de Phone Number HISTORICAL RESULTS * Serum lipase (11/19/2015 2:26 AM SWEEPER OPERATOR HIGHWAYS) Pathologist [facility] Lip 47 0 - 99 Units/L HISTORICAL RESULTS Serum 11/19/2015 2:26 AM SWEEPER OPERATOR HIGHWAYS Devon Watson MD LAB BLOOD ORDERABLES Final Res ult HISTORICAL RESULTS * (ABNORMAL) Blood cell count (CBC) (11/19/2015 2:26 AM SWEEPER OPERATOR HIGHWAYS) WBC 6.9 3.8 - 9.8 K/cumm HISTORICAL [...] RESULTS Blood specimen (specimen) 11/19/2015 2:26 AM SWEEPER OPERATOR HIGHWAYS us Devon Watson MD LAB BLOOD ORDERABLES Final Res ult HISTORICAL RESULTS * DISCHARGE LABORATORY CUMULATIVE REPORT (11/19/2015) Narrative 11/19/2015 Ordered by an unspecified provider. us Historical Provider LAB BLOOD ORDERABLES Carrie l Result documented in this encounter Visit Diagnoses Diagnosis Alcoholic gastritis without bleeding Acute pancreatitis Major depressive disorder, single episode Major depressive disorder, single episode, unspecified Uncomplicated alcohol abuse Other usp (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 Nicotine dependence, uncomplicated documented in this encounter
--- OUTSIDE RECORDS SUMMARY | 2024-11-07 14:21 | XMS_ITS | Encounter Summary ---
Author Organization [facility] Facility Care Team Providers Care Body Mechanic Apprentice Name Role Phone Unavailable Primary Care Provider Unavailabl e Encounter Details Date Type Department Care Team (Latest Contact Info) Description 07/05/2013 11:00 AM CDT - 07/05/2013 4:00 PM CDT Hospital Encounter [facility] Modesto Durham MD [address] [place] [address] Pain in joint, shoulder region; Tobacco use disorder; Degeneration of cervical intervertebral disc Social History Tobacco Use Types Packs/Day Years Used Date Smoking Tobacco: Never Assessed Sex and Gender Information Value Date Recorded Sex Assigned at Not on file Legal Sex Male 2:37 PM RIVETER Gender Identity Not on file Sexual [...] PHD FINAL REPORT ACC# ??Date Time ??Exam [id number] Jul 05, 2013 12:17:00 28255 Shoulder minimum 2 views R EXAMINATION: ?Right [...] PHD FINAL REPORT ACC# Date Time Exam [id number] Jul 05, 2013 12:17:00 28603 Shoulder minimum 2 views R EXAMINATION: Right [...]
--- OUTSIDE RECORDS SUMMARY | 2024-11-07 14:21 | XMS_ITS | Encounter Summary ---
Author Organization [facility] Facility Care Team Providers Care Dough Sheeter Name Role Phone Unavailable Primary Care Provider Unavailabl e Encounter Details Date Type Department Care Team (Late st Contact Info) Description 10/12/2013 10:00 AM INVESTOR RELATIONS SPECIALIST - 10/12/2013 4:00 PM [facility] Hospital [facility] [address] [place] [address] Cervicalgia; Pain in joint, shoulder region; Essential hypertension; Acute pancreatitis; Encounter for long-term (current) use of other medications Social History Tobacco Use Types Packs/Day Years Used Date Smoking Tobacco: Never Assessed Sex and Gender Information Value Date Recorded Sex Assigned at Not on file Legal Sex Male 2:37 PM INVESTOR RELATIONS SPECIALIST Gender Identity Not on file Sexual Orientation Not on file documented as of this encounter Plan of Treatment Not on file documented as of this encounter Visit Diagnoses Diagnosis Cervicalgia Pain in joint, shoulder region Essential hypertension Unspecified essential hypertension Acute pancreatitis Encounter for long-term (current) use of other medications documented in this encounter
--- OUTSIDE RECORDS SUMMARY | 2024-11-07 14:21 | XMS_ITS | Encounter Summary ---
Author Organization [facility] Facility Care Team Providers Care Hosting Engineer Name Role Phone Unavailable Primary Care Provider Unavailabl e Encounter Details Date Type Department Care Team (Late st Contact Info) Description 01/10/2015 9:43 AM CDT - 01/10/2015 4:00 PM CDT Hospital Encounter [facility] Rocco Brambila MD [address] [place] [address] Cyst and pseudocyst of pancreas; Chronic pancreatitis (CMS/HCC) (HCC); Encounter for long-term (current) use of other medications; Tobacco use disorder; Essential hypertension Social History Tobacco Use Types Packs/Day Years Used Date Smoking Tobacco: Never Assessed Sex and Gender Information Value Date Recorded Sex Assigned at Not on file Legal Sex Male 2:37 PM BACKHAUL DRIVER Gender Identity Not on file Sexual [...] agrees with it. ACC# ??Date Time ??Exam [id number] Jan 10, 2015 13:33:00 55554 EndoCath Panc Prof Only EXAMINATION: ?Endoscopic Retrograde Pancreaticogram - pancreatic duct only Date: 01/10/2015 History: 44-year-old man with chronic pancreatitis. Findings: No prior studies available for comparison. 6 images from an ERP procedure are submitted by the hepatobiliary service. ??The leadership development consultant image of the right upper quadrant of [...] POWERS M.D. on Jan 11 2015 11:35A [id number] Procedure Note Provider, MD Rhett - 02/22/2017 ABBIE POWERS M.D. AVINASH SAMUEL M.D. FINAL REPORT The radiology attending physician has personally reviewed this study, and has reviewed and/or edited this written report and agrees with it. ACC# Date Time Exam [id number] Jan 10, 2015 13:33:00 35053 EndoCath Panc Prof Only EXAMINATION: Endoscopic Retrograde Pancreaticogram - pancreatic duct only Date: 01/10/2015 History: 44-year-old man with chronic pancreatitis. Findings: No prior studies available for comparison. 6 images from an ERP procedure are submitted by the hepatobiliary service. The leadership development consultant image of the right upper quadrant of [...] POWERS M.D. on Jan 11 2015 11:35A [id number] Historical Provider MD MELÉNDEZ FLUOROSCOPY PROCEDURE S Final Result * Cytology (01/10/2015) Narrative 01/10/2015 Ordered by an unspecified provider. [facility] Provider LAB CYTOLOGY ORDERABLES F inal Result * CHOLANGIOPANCREATOGRAPHY, RETROGRADE, ENDOSCOPIC (01/10/2015) Anatomical Region Laterality Modality N/A Radiographic Vashit ging Narrative 01/10/2015 Ordered by an unspecified provider. [facility] Provider MD MELÉNDEZ XR PROCEDURES Final R [...]
--- OUTSIDE RECORDS SUMMARY | 2024-11-07 14:21 | XMS_ITS | Encounter Summary ---
Author Organization [facility] Facility Care Team Providers Care Securities Dealer Name Role Phone Unavailable Primary Care Provider Unavailabl e Encounter Details Date Type Department Care Team (Late st Contact Info) Description 09/18/2013 - 09/18/2013 11:59 PM FARMER AND GRAZIER Hospital Encounter [facility] Rocco Brambila MD [address] [place] [address] Abdominal pain; Cyst and pseudocyst of pancreas Social History Tobacco Use Types Packs/Day Years Used Date Smoking Tobacco: Never Assessed Sex and Gender Information Value Date Recorded Sex Assigned at Not on file Legal Sex Male 2:37 PM FARMER AND GRAZIER Gender Identity Not on file Sexual Orientation Not on file documented as of this encounter Plan of Treatment Not on file documented as of this encounter Procedures Procedure Name Priority Date/Time Associated Diagnosis Comments MRI ABDOMEN W WO CONTRAST Routine 09/18/2013 1:54 PM FARMER AND GRAZIER BLOOD CREATININE, POINT OF CARE Routine 09/18/2013 12:51 PM FARMER AND GRAZIER DISCHARGE LABORATORY CUMULATIVE REPORT Routine 09/18/2013 12:00 AM FARMER AND GRAZIER documented in this encounter Results * MRI Abdomen WWO Contrast (09/18/2013 1:54 PM FARMER AND GRAZIER) Anatomical Region Laterality Modality Body N/A Magnetic Resonan ce 09/18/2013 1:54 PM FARMER AND GRAZIER Narrative 09/18/2013 4:19 PM FARMER AND GRAZIER GUSTAVO SANTOS M.D. STEVIE HUNTER M.D. FINAL REPORT The radiology attending physician has personally reviewed this study, and has reviewed and/or edited this written report and agrees with it. ACC# ??Date Time ??Exam [id number] Sep 18, 2013 13:54:00 13319 MRI Abdomen wwo contrast EXAMINATION: ?? 1. [...] this written report and agrees with it. [facility]# Date Time Exam [id number] Sep 18, 2013 13:54:00 22672 MRI Abdomen wwo contrast EXAMINATION: 1. MAGNETIC [...] creatinine, point of care (09/18/2013 12:51 PM FARMER AND GRAZIER) Creatinine, POC, bld 1.0 0.7 - 1.3 mg/dl HISTORICAL RESULTS Blood specimen (specimen) 09/18/2013 12:51 PM FARMER AND GRAZIER us Rocco Moreno MD LAB BLOOD ORDERABL ES Final Result HISTORICAL RESULTS * Discharge Laboratory Cumulative Report (09/18/2013 12:00 AM FARMER AND GRAZIER) 09/18/2013 Narrative HISTORICAL RESULTS - 09/18/2013 3:21 PM FARMER AND GRAZIER ?[facility] ?Department of Laboratories ? [address] [facility] [address] ? [place] [address] Patient Name: ??YARIEL HILL Med Rec Number: [id number] Fin Number: ?[id number] Date: ?1970 Sex/Age: ? Male 43 years Admit Date: ?09/18/2013 Discharge Date: 09/18/2013 Doctor: ?Rocco Moreno Facility: ?[facility] Location: ?[facility] Chart Printed: 09/18/2013 15:21 [...]
--- OUTSIDE RECORDS SUMMARY | 2024-11-07 14:22 | XMS_ITS | Encounter Summary ---
Author Organization [facility] Facility Care Team Providers Care Lottery Sales Clerk Name Role Phone Unavailable Primary Care Provider Unavailabl e Encounter Details Date Type Department Care Team (Late st Contact Info) Description 05/07/2008 9:45 AM CDT - 05/07/2008 4:00 PM T Hospital Encounter [facility] Glen Moncada MD [address] [facility] [address] [place] [address] Carpal tunnel syndrome Social History Tobacco Use Types Packs/Day Years Used Date Smoking Tobacco: Never Assessed Sex and Gender Information Value Date Recorded Sex Assigned at Not on file Legal Sex Male 2:37 PM PHOTONICS TECHNICIAN Gender Identity Not on file Sexual Orientation Not on file documented as of this encounter Plan of Treatment Not on file documented as of this encounter Visit Diagnoses Diagnosis Carpal tunnel syndrome documented in this encounter
--- OUTSIDE RECORDS SUMMARY | 2024-11-07 14:22 | XMS_ITS | Encounter Summary ---
Author Organization [facility] Facility Care Team Providers Care Certified Adapted Physical Educator Name Role Phone Unavailable Primary Care Provider Unavailabl e Encounter Details Date Type Department Care Team (Late st Contact Info) Description 12/29/2012 10:17 AM IT PROJECT LEAD - 12/29/2012 4:00 PM IT PROJECT LEAD Hospital Encounter [facility] Christiano Heller MD [address] [place] [address] Acute pancreatitis; Essential hypertension; Sprain of rotator cuff capsule; Tobacco use disorder; Vitamin D deficiency; Unemployed Social History Tobacco Use Types Packs/Day Years Used Date Smoking Tobacco: Never Assessed Sex and Gender Information Value Date Recorded Sex Assigned at Not on file Legal Sex Male 2:37 PM IT PROJECT LEAD Gender Identity Not on file Sexual Orientation Not on file documented as of this encounter Plan of Treatment Not on file documented as of this encounter Procedures Procedure Name Priority Date/Time Associated Diagnosis Comments PLASMA BASIC METABOLIC PANEL Routine 12/29/2012 5:54 AM IT PROJECT LEAD DISCHARGE LABORATORY CUMULATIVE REPORT Routine 12/29/2012 12:00 AM IT PROJECT LEAD documented in this encounter Results * Plasma basic metabolic panel (12/29/2012 5:54 AM IT PROJECT LEAD) Sodium 140 135 - 145 mmol/L HISTORICAL [...] mg/dl HISTORICAL RESULTS Plasma 12/29/2012 5:54 AM IT PROJECT LEAD Narrative HISTORICAL RESULTS - 12/29/2012 6:51 AM IT PROJECT LEAD LAB Frequency Standing Order? No Expiration Date: us Huber Chase MD LAB BLOOD ORDERABLES Final Result HISTORICAL RESULTS * Discharge Laboratory Cumulative Report (12/29/2012 12:00 AM IT PROJECT LEAD) 12/29/2012 Narrative HISTORICAL RESULTS - 12/29/2012 3:28 PM IT PROJECT LEAD ?[facility] ?Department of Laboratories ? [address] [facility] [address] ? [place] [address] Patient Name: ??YARIEL HILL [facility] Rec Number: [id number] Fin Number: ?[id number] Date: ?1970 Sex/Age: ? Male 42 years Admit Date: ?12/29/2012 Discharge Date: 12/29/2012 Doctor: ?[facility] [address] Facility: ?[facility] Location: ?[place] Chart Printed: 12/29/2012 15:28 ?? [...] ORDERABLES Carrie khanna Result Performing Organization Address City/State/[facility] Co de Phone Number HISTORICAL RESULTS documented in this encounter Visit Diagnoses Diagnosis Acute pancreatitis Essential hypertension Unspecified essential hypertension Sprain of rotator cuff capsule Rotator cuff (capsule) sprain and strain Tobacco use disorder Vitamin D deficiency Unemployed Unemployment documented in this encounter
--- OUTSIDE RECORDS SUMMARY | 2024-11-07 14:22 | XMS_ITS | Encounter Summary ---
Author Organization [facility] Facility Care Team Providers Care Sales And Leasing Consultant Name Role Phone Unavailable Primary Care Provider Unavailabl e Encounter Details Date Type Department Care Team (Latest Contact Info) Description 11/13/2012 8:38 AM GLASS POLISHER - 11/13/2012 4:00 PM GLASS POLISHER Hospital Encounter [facility] Christiano Heller MD [address] [address] Abdominal pain; Alcohol abuse; Pain in joint, shoulder region; Tobacco use disorder; Need for Streptococcus pneumoniae and influenza vaccination Social History Tobacco Use Types Packs/Day Years Used Date Smoking Tobacco: Never Assessed Sex and Gender Information Value Date Recorded Sex Assigned at Not on file Legal Sex Male 2:37 PM GLASS POLISHER Gender Identity Not on file Sexual Orientation Not on file documented as of this encounter Plan of Treatment Not on file documented as of this encounter Procedures Procedure Name Priority Date/Time Associated Diagnosis Comments XR SHOULDER 2+ VW Routine 11/13/2012 10: 48 AM GLASS POLISHER XR SPINE CERVICAL 2 OR 3 VIEWS Routine 11/13/2012 10:48 AM GLASS POLISHER BLOOD HEMOGLOBIN A1C, POC Routine 11/13/2012 9:45 AM GLASS POLISHER SERUM LIPID PANEL Routine 11/13/2012 3:5 4 AM GLASS POLISHER SERUM HUMAN IMMUNODEFICIENCY VIRUS (HIV) 1, 2 AB Routine 11/13/2012 3:54 AM GLASS POLISHER SERUM 25-HYDROXYCHOLECALCIFERO L (VITAMIN D) Routine 11/13/2012 3:54 AM GLASS POLISHER PLASMA COMPREHENSIVE METABOLIC PANEL Routine 11/13/2012 3:54 AM GLASS POLISHER BLOOD CELL COUNT (CBC) Routine 3 3:54 AM GLASS POLISHER DISCHARGE LABORATORY CUMULATIVE REPORT Routine 11/13/2012 12:00 AM GLASS POLISHER documented in this encounter Results * XR Spine Cervical 3 View (11/13/2012 10:48 AM GLASS POLISHER) Anatomical Region Laterality Modality Spine N/A Radiographic Vashti ging 11/13/2012 10:4 8 AM GLASS POLISHER Narrative 11/13/2012 11:35 AM GLASS POLISHER ISMAEL CASTILLO M.D. FINAL REPORT ACC# ??Date Time ??Exam [id number] Nov 13, 2012 10:48:00 88113 Spine Cerv 3views or less [id number] Nov 13, 2012 10:48:00 32269 Shoulder minimum 2 views R EXAMINATION: ?? [...] M.D. FINAL REPORT ACC# Date Time Exam [id number] Nov 13, 2012 10:48:00 50071 Spine Cerv 3views or less [id number] Nov 13, 2012 10:48:00 61629 Shoulder minimum 2 views R EXAMINATION: 1. [...] XR Shoulder 2+ Vw (11/13/2012 10:48 AM GLASS POLISHER) Anatomical Region Laterality Modality Shoulder N/A Radiographic Vashti ging 11/13/2012 10:4 8 AM GLASS POLISHER Narrative 11/13/2012 11:35 AM GLASS POLISHER ISMAEL CASTILLO M.D. FINAL REPORT ACC# ??Date Time ??Exam [id number] Nov 13, 2012 10:48:00 41437 Spine Cerv 3views or less [id number] Nov 13, 2012 10:48:00 53717 Shoulder minimum 2 views R EXAMINATION: ?? [...] M.D. FINAL REPORT ACC# Date Time Exam [id number] Nov 13, 2012 10:48:00 77907 Spine Cerv 3views or less [id number] Nov 13, 2012 10:48:00 72070 Shoulder minimum 2 views R EXAMINATION: 1. [...] Blood hemoglobin A1C, POC (11/13/2012 9:45 AM GLASS POLISHER) Hgb A1C 5.2 4.0 - 6.0 % HISTORICAL RESULTS Estimated average glucose 103 mg/dl HISTORICAL RESULTS Blood specimen (specimen) 11/13/2012 9:45 AM GLASS POLISHER Momo Duncan MD LAB BLOOD ORDERABLES Final [facility] Performing Organization Address [facility] [address]/[facility] de Phone Number HISTORICAL RESULTS * (ABNORMAL) Plasma comprehensive metabolic panel (11/13/2012 3:54 AM GLASS POLISHER) Sodium 141 135 - 145 mmol/L HISTORICAL [...] Units/L HISTORICAL RESULTS Plasma 11/13/2012 3:54 AM GLASS POLISHER Narrative HISTORICAL RESULTS - 11/13/2012 5:26 AM GLASS POLISHER LAB Frequency Standing Order? No Expiration Date: Momo Duncan MD LAB BLOOD ORDERABLES Final [facility] Performing Organization Address [facility] [address]/[facility] de Phone Number HISTORICAL RESULTS * (ABNORMAL) Serum 25-hydroxycholecalciferol (vitamin D) (11/13/2012 3:54 AM GLASS POLISHER) Pathologist [facility] 25-OH Vit D 12(L) 30 - 100 ng/ml HISTORICAL RESULTS Serum 11/13/2012 3:54 AM GLASS POLISHER Narrative HISTORICAL RESULTS - 11/13/2012 7:37 AM GLASS POLISHER LAB Frequency Standing Order? No Expiration Date: us Momo Duncan MD LAB BLOOD ORDERABLES Final R esult HISTORICAL RESULTS * (ABNORMAL) Serum lipid panel (11/13/2012 3:54 AM GLASS POLISHER) Cholesterol 231(H) 0 - 200 mg/dl HISTORICAL [...] last revised 2012. Serum 11/13/2012 3:54 AM GLASS POLISHER Narrative HISTORICAL RESULTS - 11/13/2012 7:00 AM GLASS POLISHER LAB Frequency Standing Order? No Expiration Date: Momo Duncan MD LAB BLOOD ORDERABLES Final R esult Performing Organization Address [facility] [address]/[facility] de Phone Number HISTORICAL RESULTS * Serum Human Immunodeficiency virus (HIV) 1, 2 ab (11/13/2012 3:54 AM GLASS POLISHER) HIV ab Negative NEG HISTORICAL RESULTS Serum 11/13/2012 3:54 AM GLASS POLISHER Narrative HISTORICAL RESULTS - 11/16/2012 5:02 AM GLASS POLISHER LAB Frequency Standing Order? No Expiration Date: Momo Duncan MD LAB [facility]LOOD [facility]ABLES [facility] Performing Organization Address [facility] [address]/[facility] de Phone Number HISTORICAL RESULTS * (ABNORMAL) Blood cell count (CBC) (11/13/2012 3:54 AM GLASS POLISHER) WBC 8.3 3.8 - 9.8 K/cumm HISTORICAL [...] RESULTS Blood specimen (specimen) 11/13/2012 3:54 AM GLASS POLISHER Narrative HISTORICAL RESULTS - 11/13/2012 4:49 AM GLASS POLISHER LAB Frequency Standing Order? No Expiration Date: us Momo Duncan MD LAB BLOOD ORDERABLES Final R esult HISTORICAL RESULTS * Discharge Laboratory Cumulative Report (11/13/2012 12:00 AM GLASS POLISHER) 11/13/2012 Narrative HISTORICAL RESULTS - 11/16/2012 11:26 AM GLASS POLISHER ?[facility] ?Department of Laboratories ? [address] [facility] [address] ? [place] [address] Patient Name: ??YARIEL HILL [facility] Rec Number: [id number] Fin Number: ?[id number] Date: ?1970 Sex/Age: ? Male 42 years Admit Date: ?11/13/2012 Discharge Date: 11/13/2012 Doctor: ?[facility] , [address] Facility: ?[facility] Location: ?[place] Chart Printed: 11/16/2012 11:26 ?? [...]
--- OUTSIDE RECORDS SUMMARY | 2024-11-07 14:22 | XMS_ITS | Encounter Summary ---
Author Organization [facility] Facility Care Team Providers Care Ground Layer Name Role Phone Unavailable Primary Care Provider Unavailabl e Encounter Details Date Type Department Care Team (Late st Contact Info) Description 05/01/2008 2:48 PM CDT - 05/01/2008 4:00 PM CDT Hospital Encounter [facility] Glen Moncada MD [address] [facility] [address] [place] [address] Carpal tunnel syndrome; Other specified pre-operative examination Social History Tobacco Use Types Packs/Day Years Used Date Smoking Tobacco: Never Assessed Sex and Gender Information Value Date Recorded Sex Assigned at Not on file Legal Sex Male 2:37 PM PRIMER WATERPROOFING MACHINE ADJUSTER Gender Identity Not on file Sexual Orientation Not on file documented as of this encounter Plan of Treatment Not on file documented as of this encounter Visit Diagnoses Diagnosis Carpal tunnel syndrome Other specified pre-operative examination documented in this encounter
--- OUTSIDE RECORDS SUMMARY | 2024-11-07 14:22 | XMS_ITS | Encounter Summary ---
Author Organization [facility] Facility Care Team Providers Care Dental Scheduler Name Role Phone Unavailable Primary Care Provider Unavailabl e Encounter Details Date Type Department Care Team (Late st Contact Info) Description 12/08/2012 10:36 AM MOLDER PIPE COVERING - 12/08/2012 4:00 PM MOLDER PIPE COVERING Hospital Encounter [facility] CL[facility]V Christiano Heller MD [address] [address] Abdominal pain, epigastric; Alcohol abuse; Pain in joint, shoulder region; Vitamin D deficiency; Tobacco use disorder Social History Tobacco Use Types Packs/Day Years Used Date Smoking Tobacco: Never Assessed Sex and Gender Information Value Date Recorded Sex Assigned at Not on file Legal Sex Male 2:37 PM MOLDER PIPE COVERING Gender Identity Not on file Sexual Orientation Not on file documented as of this encounter Plan of Treatment Not on file documented as of this encounter Procedures Procedure Name Priority Date/Time Associated Diagnosis Comments SERUM HELICOBACTER PYLORI AB, IGG Routine 12/08/2012 6:15 AM MOLDER PIPE COVERING BLOOD CELL COUNT (CBC) Routine 12/08/2012 6:15 AM MOLDER PIPE COVERING DISCHARGE LABORATORY CUMULATIVE REPORT Routine 12/08/2012 12:00 AM MOLDER PIPE COVERING documented in this encounter Results * Serum Helicobacter pylori ab, IgG (12/08/2012 6:15 AM MOLDER PIPE COVERING) H. pylori ab, IgG Negative Negative HISTORICAL RESULTS Serum 12/08/2012 6:15 AM MOLDER PIPE COVERING Narrative HISTORICAL RESULTS - 12/12/2012 6:16 AM MOLDER PIPE COVERING LAB Frequency Standing Order? No Expiration Date: Quentin Mcintyre MD LAB BLOOD ORDERABLES Final Result HISTORICAL RESULTS * (ABNORMAL) Blood cell count (CBC) (12/08/2012 6:15 AM MOLDER PIPE COVERING) WBC 7.6 3.8 - 9.8 K/cumm HISTORICAL [...] RESULTS Blood specimen (specimen) 12/08/2012 6:15 AM MOLDER PIPE COVERING Narrative HISTORICAL RESULTS - 12/08/2012 7:25 AM MOLDER PIPE COVERING LAB Frequency Standing Order? No Expiration Date: us Quentin Mcintyre MD LAB BLOOD ORDERABLES Final Result HISTORICAL RESULTS * Discharge Laboratory Cumulative Report (12/08/2012 12:00 AM MOLDER PIPE COVERING) 12/08/2012 Narrative HISTORICAL RESULTS - 12/12/2012 3:34 PM MOLDER PIPE COVERING ?[facility] ?Department of Laboratories ? [address] [facility] [address] ? [place] [address] Patient Name: ??YARIEL HILL Med Rec Number: [id number] Fin Number: ?[id number] Date: ?1970 Sex/Age: ? Male 42 years Admit Date: ?12/08/2012 Discharge Date: 12/08/2012 Doctor: ?[facility] , [facility] Facility: ?[facility] Location: ?[facility] Chart Printed: 12/12/2012 15:34 ?? [...]
--- OUTSIDE RECORDS SUMMARY | 2024-11-07 14:22 | XMS_ITS | Encounter Summary ---
Author Organization [facility] Facility Care Team Providers Care Experimental Preflight Mechanic Name Role Phone Unavailable Primary Care Provider Unavailabl e Encounter Details Date Type Department Care Team (Latest Contact Info) Description 11/21/2012 10:33 AM INTENSIVE CARE SPECIALIST - 11/21/2012 4:00 PM INTENSIVE CARE SPECIALIST Hospital Encounter [facility] CLINCONV Christiano Heller MD [address] [address] Abdominal pain; Pain in joint, shoulder region; [...] on file Legal Sex Male 2:37 PM INTENSIVE CARE SPECIALIST Gender Identity Not on file Sexual [...]
--- OUTSIDE RECORDS SUMMARY | 2024-11-07 14:22 | XMS_ITS | Encounter Summary ---
Author Organization [facility] Facility Care Team Providers Care Multimedia Designer Name Role Phone Unavailable Primary Care Provider Unavailabl e Encounter Details Date Type Department Care Team (Latest Contact Info) Description 05/15/2013 - 05/15/2013 11:59 PM CDT Hospital Encounter [facility] CLINCONV Chronic pancreatitis (CMS/HCC) (HCC); Cyst and pseudocyst of pancreas Social History Tobacco Use Types Packs/Day Years Used Date Smoking Tobacco: Never Assessed Sex and Gender Information Value Date Recorded Sex Assigned at Not on file Legal Sex Male 2:37 PM PHARMACIST'S AIDE Gender Identity Not on file Sexual Orientation [...] agrees with it. ACC# ??Date Time ??Exam [id number] May 15, 2013 18:19:00 [id number] MRI Abdomen wwo contrast [id number] May 15, 2013 18:19:00 99328 3-D Rendering on Modality ACC# ??Date Time ??Exam [id number] May 15, 2013 18:19:00 [id number] MRI Abdomen wwo contrast [id number] May 15, 2013 18:19:00 32972 3-D Rendering on Modality EXAMINATION: ?? 1. [...] agrees with it. ACC# Date Time Exam [id number] May 15, 2013 18:19:00 [id number] MRI Abdomen wwo contrast [id number] May 15, 2013 18:19:00 01219 3-D Rendering on Modality ACC# Date Time Exam [id number] May 15, 2013 18:19:00 [id number] MRI Abdomen wwo contrast [id number] May 15, 2013 18:19:00 09293 3-D Rendering on Modality EXAMINATION: 1. MAGNETIC [...] agrees with it. ACC# ??Date Time ??Exam [id number] May 15, 2013 18:19:00 [id number] MRI Abdomen wwo contrast [id number] May 15, 2013 18:19:00 93604 3-D Rendering on Modality ACC# ??Date Time ??Exam [id number] May 15, 2013 18:19:00 [id number] MRI Abdomen wwo contrast [id number] May 15, 2013 18:19:00 [id number] 3-D Rendering on Modality EXAMINATION: ?? 1. [...] agrees with it. ACC# Date Time Exam [id number] May 15, 2013 18:19:00 [id number] MRI Abdomen wwo contrast [id number] May 15, 2013 18:19:00 31074 3-D Rendering on Modality ACC# Date Time Exam [id number] May 15, 2013 18:19:00 [id number] MRI Abdomen wwo contrast [id number] May 15, 2013 18:19:00 97403 3-D Rendering on Modality EXAMINATION: 1. MAGNETIC [...]
--- OUTSIDE RECORDS SUMMARY | 2024-11-07 14:22 | XMS_ITS | Encounter Summary ---
Author Organization [facility] Facility Care Team Providers Care Dedicated Driver Name Role Phone Unavailable Primary Care Provider Unavailabl e Encounter Details Date Type Department Care Team (Late st Contact Info) Description 09/13/2012 11:01 AM BOX HINGE AND LOCK ATTACHER - 09/13/2012 4:00 PM BOX HINGE AND LOCK ATTACHER [facility] [address] [address] Social History Tobacco Use Types Packs/Day Years Used Date Smoking Tobacco: Never Assessed Sex and Gender Information Value Date Recorded Sex Assigned at Not on file Legal Sex Male 2:37 PM BOX HINGE AND LOCK ATTACHER Gender Identity Not on file Sexual Orientation Not on file documented as of this encounter Plan of Treatment Not on file documented as of this encounter Visit Diagnoses Not on filedocumented in this encounter
--- OUTSIDE RECORDS SUMMARY | 2024-11-07 14:22 | XMS_ITS | Encounter Summary ---
Author Organization [facility] Facility Care Team Providers Care Divorce Attorney Name Role Phone Unavailable Primary Care Provider Unavailabl e Encounter Details Date Type Department Care Team (Late st Contact Info) Description 05/08/2013 10:23 AM CDT - 05/08/2013 4:00 PM T Hospital Encounter [facility] CLINCONV Christiano Heller MD [address] [address] Acute pancreatitis; Tobacco use disorder; Disease of pancreas; Hepatitis C virus infection without hepatic coma; Essential hypertension; Sprain of rotator cuff capsule; Vitamin D deficiency Social History Tobacco Use Types Packs/Day Years Used Date Smoking Tobacco: Never Assessed Sex and Gender Information Value Date Recorded Sex Assigned at Not on file Legal Sex Male 2:37 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
--- OUTSIDE RECORDS SUMMARY | 2024-11-07 14:22 | XMS_ITS | Encounter Summary ---
Author Organization [facility] Facility Care Team Providers Care Cad Librarian Name Role Phone Unavailable Primary Care Provider Unavailabl e Encounter Details Date Type Department Care Team (Latest Contact Info) Description 11/22/2012 - 11/22/2012 11:59 PM DEVELOPMENT SCIENTIST Hospital Encounter [facility] CLINCONV Momo Shah MD [id number] [place] [address] Supraspinatus sprain and strain; Pain in joint, shoulder region Social History Tobacco Use Types Packs/Day Years Used Date Smoking Tobacco: Never Assessed Sex and Gender Information Value Date Recorded Sex Assigned at Not on file Legal Sex Male 2:37 PM DEVELOPMENT SCIENTIST Gender Identity Not on file Sexual Orientation Not on file documented as of this encounter Plan of Treatment Not on file documented as of this encounter Procedures Procedure Name Priority Date/Time Associated Diagnosis Comments US EXTREMITY COMPLETE Routine 11/22/2012 3:12 PM DEVELOPMENT SCIENTIST documented in this encounter Results * US Extremity Complete (11/22/2012 3:12 PM DEVELOPMENT SCIENTIST) Anatomical Region Laterality Modality Extremity N/A Ultrasound 11/22/2012 3:12 PM DEVELOPMENT SCIENTIST Narrative 11/22/2012 3:33 PM DEVELOPMENT SCIENTIST JASWINDER DE OLIVEIRA M.D. FINAL REPORT ACC# ??Date Time ??Exam [id number] Nov 22, 2012 15:12:00 [id number] Extrm Sono Shoulder R EXAMINATION: ? SHOULDER [...] M.D. FINAL REPORT ACC# Date Time Exam [id number] Nov 22, 2012 15:12:00 09151 Extr Sono Shoulder R EXAMINATION: SHOULDER SONOGRAM [...]
--- OUTSIDE RECORDS SUMMARY | 2024-11-07 14:22 | XMS_ITS | Encounter Summary ---
Author Organization [facility] Facility Care Team Providers Care [place] Tower Loader Name Role Phone Unavailable Primary Care Provider Unavailabl e Encounter Details Date Type Department Care Team (Late st Contact Info) Description 07/11/2011 7:01 PM CDT - 07/12/2011 4:29 AM CDT Hospital Encounter [facility] Colt Allen Abdominal pain, epigastric Social History Tobacco Use Types Packs/Day Years Used Date Smoking Tobacco: Never Assessed Sex and Gender Information Value Date Recorded Sex Assigned at Not on file Legal Sex Male 2:37 PM TOOL ROOM SUPERVISOR Gender Identity Not on file Sexual Orientation Not on file documented as of this encounter Plan of Treatment Not on file documented as of this encounter Visit Diagnoses Diagnosis Abdominal pain, epigastric documented in this encounter
--- OUTSIDE RECORDS SUMMARY | 2024-11-07 14:22 | XMS_ITS | Encounter Summary ---
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
--- OUTSIDE RECORDS SUMMARY | 2024-11-07 14:22 | XMS_ITS | Encounter Summary ---
Author Organization [facility] Facility Care Team Providers Care Farm Machinery Engine Mechanic Name Role Phone Unavailable Primary Care Provider Unavailabl e Encounter Details Date Type Department Care Team (Latest Contact Info) Description 04/05/2013 9:06 AM CDT - 04/05/2013 4:00 PM CDT Hospital Encounter [facility] CLINCONV Christiano Heller MD [address] [place] [address] Acute pancreatitis; Hepatitis C virus infection without hepatic coma; Essential hypertension; Sprain of rotator cuff capsule; Tobacco use disorder; Vitamin D deficiency; Need for prophylactic vaccination with combined qkgxzheium-qyuqpar-mj rtussis (DTP) vaccine Social History Tobacco Use Types Packs/Day Years Used Date Smoking Tobacco: Never Assessed Sex and Gender Information Value Date Recorded Sex Assigned at Not on file Legal Sex Male 2:37 PM REGISTERED NURSING PROFESSOR Gender Identity Not on file Sexual [...] Hepatitis panel (04/05/2013 5:11 AM CDT) Pathologist [facility] HBV surface ag Negative NEG HISTO RICAL RESULTS HCV ab Negative NEG HISTORICAL RESULTS Comment: Interpretive Data If confirmation is required, call Laboratory Customer Service to request sample to be sent to [facility] for Hepatitis C Virus (HCV) RNA Detection and Quantitation by Real-Time Reverse Wood Experimental Mechanic-PCR (RT-PCR). Current interpretive data was last revised [...] metabolic panel (04/05/2013 5:11 AM CDT) Pathologist [facility] Protein, pl 7.8 6.5 - 8.5 g/dl [...] BLOOD ORDERABLES Final Result Performing Organization Address [facility] de Phone Number HISTORICAL RESULTS * Serum Hepatitis C genotype (04/05/2013 5:11 AM CDT) [facility] HCV genotype Undetected Undetected HISTO RICAL RESULTS Serum 04/05/2013 5:11 AM CDT Narrative HISTORICAL RESULTS - 04/09/2013 5:10 PM CDT LAB Frequency Standing Order? No Expiration Date: Assay failed to detect HCV RNA. This assay is not intended for HCV RNA detection purposes. Testing was done using the [employer] HCV Genotype II Assay. For research use only. Test Performed by: [place] [address] Dairy Quality Assurance Officer: Denny Lara III, M.D. Huber Chase MD LAB BLOOD ORDERABLES Final Result Performing Organization Address [facility] Phone Number HISTORICAL RESULTS * Serum Hepatitis C viral RNA, PCR, quantitative (04/05/2013 5:11 AM CDT) [facility] HCV PCR, quant Undetected Undetected IUnits/ml HISTORICAL RESULTS Comment: Result in log IU/mL is Undetected. The quantification range of this assay is 43 IU/mL to 69,000,000 IU/mL (1.63 log IU/mL to 7.84 log IU/mL). Testing was performed by the [employer] AmpliPrep/[employer] TaqMan HCV Test ([employer] Test Performed by: [place] [address] Dairy Quality Assurance Officer: Denny Lara III, M.D. Serum 04/05/2013 5:11 AM CDT Narrative HISTORICAL RESULTS - 04/06/2013 4:15 PM CDT LAB Frequency Standing Order? No Expiration Date: us Huber Chase MD LAB BLOOD ORDERABLES Final Result HISTORICAL RESULTS * Discharge Laboratory Cumulative Report (04/05/2013 12:00 AM CDT) 04/05/2013 Narrative HISTORICAL RESULTS - 04/10/2013 3:20 AM CDT ?[facility] ?Department of Laboratories ? [address] [facility] [place] ? [place], [place] [address] Patient Name: ??YARIEL HILL Aleena Med Rec Number: [id number] Fin Number: ?[id number] Date: ?1970 Sex/Age: ? Male 42 years Admit Date: ?04/05/2013 Discharge Date: 04/05/2013 Doctor: ?[facility] , [facility] Facility: ?[facility] Location: ?[facility] Chart Printed: 04/10/2013 03:20 [...] For research use only. Test Performed by: [place] [address] Dairy Quality Assurance Officer: Denny Lara III, M.D. us Historical Provider LAB BLOOD ORDERABLES Carrie khanna Result HISTORICAL RESULTS documented in this encounter Visit Diagnoses Diagnosis Acute pancreatitis Hepatitis C virus infection without hepatic coma Essential hypertension Unspecified essential hypertension Sprain of rotator cuff capsule Rotator cuff (capsule) sprain and strain Tobacco use disorder Vitamin D deficiency Need for prophylactic vaccination with combined fuhzgyumdn-pnpbsrf-dmkpriupt (DTP) vaccine documented in this encounter
--- OUTSIDE RECORDS SUMMARY | 2024-11-07 14:22 | XMS_ITS | Encounter Summary ---
Author Organization [facility] Facility Care Team Providers Care Trench Pipe Layer Helper Name Role Phone Unavailable Primary Care Provider Unavailabl e Encounter Details Date Type Department Care Team (Late st Contact Info) Description 04/10/2009 4:22 AM CDT - 04/10/2009 6:12 AM CDT Hospital [facility] Backache; Other accidents; Place of occurrence, public building Social History Tobacco Use Types Packs/Day Years Used Date Smoking Tobacco: Never Assessed Sex and Gender Information Value Date Recorded Sex Assigned at Not on file 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
--- OUTSIDE RECORDS SUMMARY | 2024-11-07 14:22 | XMS_ITS | Encounter Summary ---
Author Organization 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 FINAL REPORT ACC# ??Date Time ??Exam [id number] Apr 06, 2013 07:42:00 [id number] Sono Abd Complt EXAMINATION: ?? COMPLETE ??ABDOMINAL [...] M.D. FINAL REPORT ACC# Date Time Exam [id number] Apr 06, 2013 07:42:00 [id number] Sono Abd Complt EXAMINATION: COMPLETE ABDOMINAL SONOGRAM [...]
--- OUTSIDE RECORDS SUMMARY | 2024-11-07 14:22 | XMS_ITS | Encounter Summary ---
Author Organization [facility] Facility Care Team Providers Care Material Inspector Name Role Phone Unavailable Primary Care Provider Unavailabl e Encounter Details Date Type Department Care Team (Late st Contact Info) Description 09/06/2012 9:08 AM STRADDLE CARRIER OPERATOR - 09/06/2012 4:00 PM STRADDLE CARRIER OPERATOR Hospital Encounter [facility] CL[facility]CON[facility] Christiano Heller MD [address] [address] Pain in joint, shoulder region; Tobacco use disorder Social History Tobacco Use Types Packs/Day Years Used Date Smoking Tobacco: Never Assessed Sex and Gender Information Value Date Recorded Sex Assigned at Not on file 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
--- OUTSIDE RECORDS SUMMARY | 2024-11-07 14:22 | XMS_ITS | Encounter Summary ---
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
--- OUTSIDE RECORDS SUMMARY | 2024-11-07 16:32 | XMS_ITS | Encounter Summary ---
Author Organization [facility] Healthcare Address [address] [place] [address] Care Team Providers Care Licensed Psychologist Manager Name Role Phone Clare Kasper MD Primary Care Pro vider Reason for Visit * Reason Comments Alcohol Intoxication Withdrawal Encounter Details Date Type Department Care Team ([facility] Contact Info) Description 03/01/2023 12:32 AM CDT - 03/01/2023 2:52 AM CDT Emergency [facility] [address] [place] [address] Lionel Sher MD [facility] [address] [place], [place] [id number] Alcohol use disorder (Primary Dx) Discharge Disposition: [...] file 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 * Alcohol Dependence (AfterCare(R) Instructions(ER/ED)) (Marshallese) documented in this encounter Medications at Time [...] symptoms. Last episode of withdrawal seizures were [id number]. Reports drinking beer (tall boys) and vodka, [...] and Affect: Mood normal. Behavior: Behavior normal. [facility] Medical Decision Making 52 yr old male [...] current withdrawal symptoms. Plan to check labs (ilndsay CMP) and offer initiation of NTX and [...] POCT rapid HIV (03/01/2023 2:33 AM CDT) [facility] Rapid HIV, POC Negative Negative Lot Number [id number] QC Control Line Acceptable Blood 03/01/2023 2:33 AM CDT us Lionel Sher MD POINT OF CARE TEST ORDERABLES Final Result * eGFR (03/01/2023 1:23 AM CDT) [facility] eGFR >90 90 - 130 mL/min/1. 73 m2 [facility] Comment: Interpretive Data Reference Interval Normal ?>/= [...] MD LAB BLOOD ORDERABLE S Final Result [facility] Department [place] [address] * Differential, auto (03/01/2023 1:23 AM CDT) Neutrophil abs 3.0 1.7 - 6.5 K/cumm [facility] Imm gran abs 0.0 0.0 - 0.1 K/cumm [facility] Lymphocyte abs 3.0 0.8 - 3.3 K/cumm [facility] Monocyte abs 0.4 0.2 - 0.8 K/cumm [facility] Eosinophil abs 0.4 0.0 - 0.5 K/cumm [facility] Basophil abs 0.1 0.0 - 0.1 K/cumm [facility] Neutrophil pct 43.4 % [facility] Comment: Interpretive Data Percent cell count reference ranges are not reported, since discordance with absolute values may lead to misinterpretation of CBC data. Current Interpretive Data was last revised on 2018. Imm gran pct 0.1 % [facility] Comment: Interpretive Data Percent cell count reference ranges are not reported, since discordance with absolute values may lead to misinterpretation of CBC data. Current Interpretive Data was last revised on 2018. Lymphocyte pct 43.5 % [facility] Comment: Interpretive Data Percent cell count reference ranges are not reported, since discordance with absolute values may lead to misinterpretation of CBC data. Current Interpretive Data was last revised on 2018. Monocyte pct 6.2 % [facility] Comment: Interpretive Data Percent cell count reference ranges are not reported, since discordance with absolute values may lead to misinterpretation of CBC data. Current Interpretive Data was last revised on 2018. Eosinophil pct 5.9 % [facility] Comment: Interpretive Data Percent cell count reference ranges are not reported, since discordance with absolute values may lead to misinterpretation of CBC data. Current Interpretive Data was last revised on 2018. Basophil pct 0.9 % [facility] Comment: Interpretive Data Percent cell count reference ranges are not reported, since discordance with absolute values may lead to misinterpretation of CBC data. Current Interpretive Data was last revised on 2018. Blood 03/01/2023 1:23 AM CDT 03/01/2023 1:34 AM CDT Lionel Sher MD LAB BLOOD ORDERABLE S Final Result [facility] Department [place] [address] * (ABNORMAL) Comprehensive metabolic panel (03/01/2023 1:23 AM CDT) Sodium 142 135 - 145 mmol/L [facility] Potassium, pl 4.7 3.3 - 4.9 mmol/L [facility] Chloride 103 97 - 110 mmol/L [facility] CO2 28 22 - 32 mmol/L [facility] Anion gap 11 2 - 15 mmol/L [facility] BUN 10 8 - 25 mg/dL [facility] Creatinine 0.92 0.80 - 1.30 mg/dL [facility] Glucose 77 70 - 199 mg/dL [facility] Comment: Interpretive Data Fasting glucose >/= 126 [...] 2022. Calcium 9.3 8.5 - 10.3 mg/dL [facility] Bilirubin, total 0.5 0.1 - 1.2 mg/dL [facility] Protein, pl 7.5 6.5 - 8.5 g/dL [facility] Albumin 4.7 3.5 - 5.0 g/dL [facility] Alk phos 66 40 - 130 Units/L [facility] ALT 46 7 - 55 Units/L [facility] AST 76(H) 10 - 50 Units/L [facility] Blood 03/01/2023 1:23 AM CDT 03/01/2023 1:34 AM CDT Lionel Sher MD LAB BLOOD ORDERABLE S Final Result Performing Organization Address [facility] de Phone Number [facility] Department [place] [address] * (ABNORMAL) CBC with auto differential (03/01/2023 1:23 AM CDT) [facility] WBC 7.0 3.8 - 9.9 K/cumm [facility] Hgb 13.7 13.0 - 17.5 g/dL [facility] Hct 39.3 38.9 - 50.3 % [facility] Plt 136(L) 150 - 400 K/cumm [facility] MPV 9.7 9.1 - 12.3 fL [facility] RBC 4.22(L) 4.30 - 5.80 M/cumm [facility] MCV 93.1 81.3 - 96.4 fL [facility] MCH 32.5 27.1 - 33.3 pg [facility] MCHC 34.9 32.3 - 35.7 g/dL [facility] RDW CV 13.7 11.1 - 14.9 % [facility] RDW SD 46.0 35.7 - 48.1 fL [facility] NRBC abs 0.00 0.00 - 0.01 K/cumm [facility] Blood 03/01/2023 1:23 AM CDT 03/01/2023 1:34 AM CDT Lionel Sher MD LAB BLOOD ORDERABLE S Final Result Performing Organization Address [facility] de Phone Number [facility] Department [place] [address] documented in this encounter Visit Diagnoses Diagnosis [...] documented as of this encounter Care Teams Licensed Psychologist Manager Relationship Specialty Start Date End Date Clare Kasper MD PCP - General Family Medicine 07/27/22 documented as of this encounter
--- OUTSIDE RECORDS SUMMARY | 2024-11-07 16:32 | XMS_ITS | Encounter Summary ---
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
--- OUTSIDE RECORDS SUMMARY | 2024-11-07 16:32 | XMS_ITS | Encounter Summary ---
Author Organization [facility] Healthcare Address [address] [place] [address] Care Team Providers Care Hand Gluer And Slicer Name Role Phone Clare Kasper MD Primary Care Pro vider Reason for Visit * Reason Onset Date Comments Medical Question/Miscellaneous 10/11/2024 Encounter Details Date Type Department Care Team ([facility] Contact Info) Description 10/11/2024 Telephone [facility] Primary Care at [address] [phone] Clare Kasper MD [address] [place] [phone] Medical Question/Miscellaneous Social History Tobacco Use [...] on file 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 COAL BURNER BEEHIVE KILN * Telephone Encounter - Clare Kasper MD - 10/11/2024 2:45 PM CST Yes if he is concerned for dehydration/alcohol withdrawal recommend ED. COAL BURNER BEEHIVE KILN * Telephone Encounter - Keke Marie - 10/11/2024 2:18 PM CST Medical Question/Miscellaneous Caller???s Concern: Patient was at [facility] ed last night. States he wasn't given any fluids and he thinks he is dehydrated. States pcp is familiar with his history with alcohol. He would like to knowif he should go to [facility] ed or what he should do? Please advise Does message need to be routed? Yes-Action Needed COAL BURNER BEEHIVE KILN documented in this encounter Plan of Treatment [...] on filedocumented in this encounter Care Teams Hand Gluer And Slicer Relationship Specialty Start Date End Date Clare Kasper MD PCP - General Family Medicine 07/27/22 documented as of this encounter
--- OUTSIDE RECORDS SUMMARY | 2024-11-07 16:32 | XMS_ITS | Encounter Summary ---
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 CAGE ASSEMBLER * Telephone Encounter - Noemi Duron LPN - 12/11/2023 8:39 AM BIRD CAGE ASSEMBLER ----- Message from KI Marshall sent at 12/10/2023 7:51 PM BIRD CAGE ASSEMBLER ----- On doxy , continue . CAGE ASSEMBLER documented in this encounter Plan of Treatment [...] on filedocumented in this encounter Care Teams Shear Operator Automatic Relationship Specialty Start Date End Date Clare Kasper MD PCP - General Family Medicine 07/27/22 documented as of this encounter
--- OUTSIDE RECORDS SUMMARY | 2024-11-07 16:32 | XMS_ITS | Encounter Summary ---
Author Organization [facility] Healthcare Address [address] [place] [address] Care Team Providers Care Wool Sacker Name Role Phone Clare Kasper MD Primary Care Pro vider Reason for Visit * Reason Comments Hospital Follow Up Er f/u Encounter Details Date Type Department Care Team ([facility] st Contact Info) Description 10/12/2024 1:45 PM MERCERIZER Office Visit [facility] Primary Care at [address] [phone] Clare Kasper MD [address] [place] [phone] Alcohol use disorder (Primary Dx); Acute [...] on file Legal 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 Male 2:37 PM 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 Gender Identity Not on file Sexual Orientation Not on file documented as of this encounter Last Filed Vital Signs Vital Sign Reading Time Taken Comments Blood Pressure 137/88 10/12/2024 1:47 PM MERCERIZER Pulse 100 10/12/2024 1:47 PM MERCERIZER Temperature 36.8 ??C (98.2 ??F) 10/12/2024 1:47 PM CS T Respiratory Rate 18 10/12/2024 1:47 PM MERCERIZER Oxygen Saturation 99% 10/12/2024 1:47 PM MERCERIZER Inhaled Oxygen Concentration - - Weight 49.8 kg (109 lb 11.2 oz) 10/12/2024 1:47 PM MERCERIZER Height 170.2 cm (5' 7 ) 10/12/2024 1:47 PM MERCERIZER Body Mass Index 17.18 10/12/2024 1:47 PM MERCERIZER documented in this encounter Progress Notes * [...] Er f/u HPI In the ED at [place] on Tuesday for 4-5 hours for alcohol [...] appropriate judgment and insight Clare Kasper MD ERIZER documented in this encounter Miscellaneous Notes * Assessment & Plan Note - Clare Kasper MD - 10/12/2024 2:18 PM CSTAssociated Problem(s): Alcohol use disorder Recent relapse No evidence of withdrawal today Recommend cessation ERIZER documented in this encounter Plan of Treatment [...] documented as of this encounter Care Teams Wool Sacker Relationship Specialty Start Date End Date Clare Kasper MD PCP - General Family Medicine 07/27/22 documented as of this encounter
--- OUTSIDE RECORDS SUMMARY | 2024-11-07 16:32 | XMS_ITS | Encounter Summary ---
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
--- OUTSIDE RECORDS SUMMARY | 2024-11-07 16:32 | XMS_ITS | Encounter Summary ---
Author Organization [facility] Healthcare Address [address] [place] [address] Care Team Providers Care Converter Operator Name Role Phone Clare Kasper MD Primary Care Pro vider Encounter Details Date Type Department Care Team (Late st Contact Info) Description 10/25/2023 3:40 PM FARM OWNER OPERATOR Lab [facility] [address] [place], [place] [id number] Annual physical exam; Thrombocytopenia (HCC); Primary hypertension; [...] on file Legal Sex Male 2:37 PM FARM OWNER OPERATOR Gender Identity Not on file Sexual [...] GONORRHOEAE/C. TRACHOMATIS AMPLIFICATION Routine 10/25/2023 4:27 PM FARM OWNER OPERATOR Annual physical exam TRICHOMONAS VAGINALIS PCR Routine 10/25/2023 4:27 PM FARM OWNER OPERATOR EGFR Routine 10/25/2023 4:27 PM FARM OWNER OPERATOR Annual physical exam Primary hypertension Elevated AST (SGOT) DIFFERENTIAL AUTO Routine 10/25/2023 4:2 7 PM FARM OWNER OPERATOR Annual physical exam Thrombocytopenia (HCC) HIV 1/2 ANTIBODY PLUS P24 ANTIGEN Routine 10/25/2023 4:27 PM FARM OWNER OPERATOR Annual physical exam CBC WITH AUTO DIFFERENTIAL Routine 10/25/2023 4:27 PM FARM OWNER OPERATOR Annual physical exam Thrombocytopenia (HCC) HEPATITIS PANEL, ACUTE Routine 10/25/2023 4:27 PM FARM OWNER OPERATOR Annual physical exam RPR Routine 10/25/2023 4:27 PM FARM OWNER OPERATOR Annual physical exam TSH Routine 10/25/2023 4:27 PM FARM OWNER OPERATOR Annual physical exam LIPID PANEL Routine 10/25/2023 4:27 PM FARM OWNER OPERATOR Hyperlipidemia, unspecified hyperlipidemia type COMPREHENSIVE METABOLIC PANEL Routine 10/25/2023 4:27 PM FARM OWNER OPERATOR Annual physical exam Primary hypertension Elevated AST (SGOT) documented in this encounter Results * Trichomonas vaginalis PCR Urine (10/25/2023 4:27 PM FARM OWNER OPERATOR) Trichomonas DNA Not Detected Not Detected CRISTY [facility] Comment: Interpretive Data This assay detects Trichomonas vaginalis by nucleic acid amplification testing (NAAT). This assay has been cleared by the [place] Food and Drug administration. The performance characteristics of this test have been verified by the [facility] Molecular Infectious Disease laboratory. Excess blood in specimens may be inhibitory and result in false negative results. ??The performance of this test has not been evaluated in women or individuals less than 18 years of age. Current Interpretive Data last revised 2023. Testing performed by: [facility], [address] [facility], [place]., [address] Urine 10/25/2023 4:27 PM FARM OWNER OPERATOR 10/25/2023 9:13 PM FARM OWNER OPERATOR Clare Kasper MD LAB MICROBIOLOGY - GENERAL ORDERABLES Final Result CRISTY [address] [facility] [place] [address] * eGFR (10/25/2023 4:27 PM FARM OWNER OPERATOR) eGFR 90 mL/min/1. 73 m2 CRISTY GLOVER [...] last reviewed 2021. Testing performed by: [facility], [address] [place] [address]., [address] Blood 10/25/2023 4:27 PM FARM OWNER OPERATOR 10/25/2023 5:04 PM FARM OWNER OPERATOR us Clare Kasper MD LAB BLOOD ORDERAB LES Final Result Performing Organization Address City/[facility]/ZIP Co de Phone Number CRISTY [address] [facility] Department [place] [address] * (ABNORMAL) Differential, auto (10/25/2023 4:27 PM FARM OWNER OPERATOR) Neutrophil abs 8.9(H) 1.5 - 6.5 K/cumm CRISTY Comment:Testing performed by : [address] [address] Imm gran abs 0.0 0.0 - 0.1 K/cumm CRISTY Comment:Testing performed by : [address] [address] Lymphocyte abs 3.3 0.8 - 3.3 K/cumm CRISTY Comment:Testing performed by : [address] [address] Monocyte abs 0.8 0.2 - 0.8 K/cumm CRISTY Comment:Testing performed by : [address] [address] Eosinophil abs 0.4 0.0 - 0.5 K/cumm CRISTY Comment:Testing performed by : [address] [address] Basophil abs 0.1 0.0 - 0.1 K/cumm CRISTY Comment:Testing performed by : [address] [address] Neutrophil pct 65.7 % [facility] Comment: Interpretive Data Percent cell count reference ranges are not reported, since discordance with absolute values may lead to misinterpretation of CBC data. Current Interpretive Data was last revised on 2018. Testing performed by: [address] [address] Imm gran pct 0.2 % [facility] Comment: Interpretive Data Percent cell count reference ranges are not reported, since discordance with absolute values may lead to misinterpretation of CBC data. Current Interpretive Data was last revised on 2018. Testing performed by: [address] [address] Lymphocyte pct 24.6 % [facility] Comment: Interpretive Data Percent cell count reference ranges are not reported, since discordance with absolute values may lead to misinterpretation of CBC data. Current Interpretive Data was last revised on 2018. Testing performed by: [address] [address] Monocyte pct 6.1 % CRISTY Comment: Interpretive Data Percent cell count reference ranges are not reported, since discordance with absolute values may lead to misinterpretation of CBC data. Current Interpretive Data was last revised on 2018. Testing performed by: [address] [address] Eosinophil pct 2.9 % CRISTY Comment: Interpretive Data Percent cell count reference ranges are not reported, since discordance with absolute values may lead to misinterpretation of CBC data. Current Interpretive Data was last revised on 2018. Testing performed by: [address] [address] Basophil pct 0.5 % CRISTY Comment: Interpretive Data Percent cell count reference ranges are not reported, since discordance with absolute values may lead to misinterpretation of CBC data. Current Interpretive Data was last revised on 2018. Testing performed by: [address] [address] Blood 10/25/2023 4:27 PM FARM OWNER OPERATOR 10/25/2023 5:04 PM FARM OWNER OPERATOR Clare Kasper MD LAB BLOOD ORDERAB LES Final Result Performing Organization Address City/[facility]/ZIP Co de Phone Number [address] [place] [address] * RPR Blood (10/25/2023 4:27 PM FARM OWNER OPERATOR) RPR Nonreactive Nonreactive CRISTY Comment:Testing performed by : [facility], [address] [facility], [place]., [address] Blood 10/25/2023 4:27 PM FARM OWNER OPERATOR 10/25/2023 7:34 PM FARM OWNER OPERATOR Clare Kasper MD LAB MICROBIOLOGY - GENERAL ORDERABLES Final Result [address] Department [place] [address] * N. gonorrhoeae/C. trachomatis Amplification Urine (10/25/2023 4:27 PM FARM OWNER OPERATOR) Pathologist [facility] C. trachomatis Not Detected Not Detected CRISTY Comment:Testing performed by : [facility], [address] [place] [address]., [address] N. gonorrhoeae Not Detected Not Detected CRISTY Comment: Interpretive Data This assay detects Chlamydia trachomatis and Neisseria gonorrhoeae by nucleic acid amplification testing (NAAT). This assay has been cleared by the [place] Food and Drug administration. The performance characteristics of this test have been verified by the [facility]. The performance characteristics of this test have not been evaluated in individuals less than 14 years of age. Current Interpretive Data last revised 2023. Testing performed by: [facility], [address] [place] [address]., [address] Urine (None) 10/25/2023 4:27 PM FARM OWNER OPERATOR 10/25/2023 7:32 PM FARM OWNER OPERATOR us Clare Kasper MD LAB MICROBIOLOGY - GENERAL ORDERABLES Final Result CRISTY [address] [facility] Department [place] [address] * Hepatitis panel, acute Blood (10/25/2023 4:27 PM FARM OWNER OPERATOR) [facility] Hep A IgM Nonreactive Nonreactive CRISTY Comment: [...] Nonreactive Nonreactive CRISTY Blood 10/25/2023 4:27 PM FARM OWNER OPERATOR 10/25/2023 6:37 PM FARM OWNER OPERATOR Clare Kasper MD LAB MICROBIOLOGY - GENERAL ORDERABLES Final Result Performing Organization Address [facility] Co de Phone Number [place] [address] [facility] [place] [address] * HIV 1/2 Antibody plus p24 Antigen Blood (10/25/2023 4:27 PM FARM OWNER OPERATOR) Pathologist [facility] HIV 1/2 ab + p24 ag Nonreactive Nonreactive [facility] Comment:Nonreactive for HIV- 1 antigen and HIV-1/HIV-2 antibodies. No laboratory evidence of HIV infection. If acute HIV infection is suspected, consider testing for HIV-1 RNA. Current interpretive data was last revised on 22. Blood 10/25/2023 4:27 PM FARM OWNER OPERATOR 10/25/2023 6:37 PM FARM OWNER OPERATOR Clare Kasper MD LAB MICROBIOLOGY - GENERAL ORDERABLES Final Result Performing Organization Address City/[facility] Co de Phone Number [place] [address] [facility] [place] [address] * TSH (10/25/2023 4:27 PM FARM OWNER OPERATOR) Thyroid Stimulating Hormone 2.71 0.30 - 4.20 mcIUnit/mL CRISTY Comment:Testing performed by : [facility], [address] [place] [address]., [address] Blood 10/25/2023 4:27 PM FARM OWNER OPERATOR 10/25/2023 5:04 PM FARM OWNER OPERATOR us Clare Kasper MD LAB BLOOD ORDERAB LES Final Result CRISTY [address] [facility] Department [place] [address] * Lipid panel (10/25/2023 4:27 PM FARM OWNER OPERATOR) [facility] Cholesterol 133 30 - 199 mg/dL [...] revised on 2018. Testing performed by: [facility], [address] [place] [address]., [address] Triglycerides 91 <=149 mg/dL CRISTY Comment: Interpretive [...] last revised on 2018. Testing performed by: [address] [address] HDL 59 >=40 mg/dL CRISTY Comment: Interpretive [...] last revised on 2018. Testing performed by: [address] [address] LDL, calculated 56 <=129 mg/dL CRISTY Comment: [...] last revised on 2018. Testing performed by: [address] [place]., [address] Non-HDL Cholesterol 74 mg/dL CRISTY GLOVER Comment: [...] last revised on 2018. Testing performed by: [address] [address] Chol/HDL ratio 2 CRISTY GLOVER Comment:Testing performed by : [address] [address] Blood 10/25/2023 4:27 PM FARM OWNER OPERATOR 10/25/2023 5:04 PM FARM OWNER OPERATOR Clare Kasper MD LAB BLOOD ORDERAB LES Final Result CRISTY [address] [facility] Department of Laboratories [place], [place] [id number] * (ABNORMAL) Comprehensive metabolic panel (10/25/2023 4:27 PM FARM OWNER OPERATOR) Sodium 140 135 - 145 mmol/L CRISTY GLOVER Comment:Testing performed by : [address] [address] Potassium, pl 4.2 3.3 - 4.9 mmol/L CRISTY GLOVER Comment:Testing performed by : [address] [address] Chloride 101 97 - 110 mmol/L CRISTY [facility] Comment:Testing performed by : [address] [address] CO2 24 22 - 32 mmol/L CRISTY GLOVER Comment:Testing performed by : [address] [address] Anion gap 15 2 - 15 mmol/L CRISTY Comment:Testing performed by : [address] [address] BUN 10 6 - 25 mg/dL CRISTY Comment:Testing performed by : [address] [address] Creatinine 1.00 0.80 - 1.30 mg/dL CRISTY Comment:Testing performed by : [address] [address] Glucose 69(L) 70 - 199 mg/dL CRISTY [...] was last revised 2022. Testing performed by: [address] [address] Calcium 10.1 8.5 - 10.3 mg/dL CRISTY Comment:Testing performed by : [address] [address] Bilirubin, total 0.6 0.1 - 1.2 mg/dL CRISTY Comment:Testing performed by : [address] [address] Protein, pl 8.0 6.5 - 8.5 g/dL CRISTY Comment:Testing performed by : [address] [address] Albumin 5.0 3.5 - 5.0 g/dL CRISTY Comment:Testing performed by : [address] [address] Alk phos 79 40 - 130 Units/L CRISTY Comment:Testing performed by : [address] [address] ALT 13 7 - 55 Units/L CRISTY GLOVER Comment:Testing performed by : [address] [address] AST 28 10 - 50 Units/L CRISTY GLOVER Comment:Testing performed by : [address] [address] Blood 10/25/2023 4:27 PM FARM OWNER OPERATOR 10/25/2023 5:04 PM FARM OWNER OPERATOR us Clare Kasper MD LAB BLOOD ORDERAB LES Final Result [facility] Department [place] [address] * (ABNORMAL) CBC with auto differential (10/25/2023 4:27 PM FARM OWNER OPERATOR) WBC 13.5(H) 3.8 - 9.9 K/cumm CRISTY GLOVER Comment:Testing performed by : [address] [address] Hgb 14.8 13.0 - 17.5 g/dL CRISTY GLOVER Comment:Testing performed by : [address] [address] Hct 42.5 38.9 - 50.3 % CRISTY GLOVER Comment:Testing performed by : [address] [address] Plt 200 150 - 400 K/cumm CRISTY GLOVER Comment:Testing performed by : [address] [address] MPV 9.0(L) 9.1 - 12.3 fL CRISTY GLOVER Comment:Testing performed by : [address] [address] RBC 4.55 4.30 - 5.80 M/cumm CRISTY GLOVER Comment:Testing performed by : [address] [address] MCV 93.4 81.3 - 96.4 fL CRISTY GLOVER Comment:Testing performed by : [address] [place]., [address] MCH 32.5 27.1 - 33.3 pg CRISTY GLOVER Comment:Testing performed by : [address] [address] MCHC 34.8 32.3 - 35.7 g/dL CRISTY GLOVER Comment:Testing performed by : [address] [address] RDW CV 13.2 11.1 - 14.9 % CRISTY GLOVER Comment:Testing performed by : [address] [address] RDW SD 45.8 35.7 - 48.1 fL CRISTY GLOVER Comment:Testing performed by : [address], [address] NRBC abs 0.00 0.00 - 0.01 K/cumm CRISTY GLOVER Comment:Testing performed by : [address], [address] Blood 10/25/2023 4:27 PM FARM OWNER OPERATOR 10/25/2023 5:04 PM FARM OWNER OPERATOR us Clare Kasper MD LAB BLOOD ORDERAB LES Final Result CRISTY [address] Department [place] [address] documented in this encounter Visit Diagnoses Diagnosis Annual physical exam Routine general medical examination at a health care facility Thrombocytopenia (HCC) Unspecified thrombocytopenia Primary hypertension Unspecified essential hypertension Elevated AST (SGOT) Hyperlipidemia, unspecified hyperlipidemia type documented in this encounter Care Teams Converter Operator Relationship Specialty Start Date End Date Clare Kasper MD PCP - General Family Medicine 07/27/22 documented as of this encounter
--- OUTSIDE RECORDS SUMMARY | 2024-11-07 16:32 | XMS_ITS | Encounter Summary ---
Author Organization [facility] Healthcare Address [address] [place] [address] Care Team Providers Care Shearing Shed Worker Name Role Phone Clare Kasper MD Primary Care Pro vider Reason for Visit * Reason Onset Date Comments Medication Request 08/03/2023 Call Back 08/03/2023 Encounter Details Date Type Department Care Team ([facility] st Contact Info) Description 08/03/[address] 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 Caller???s Call back #: [phone] Does message need to be routed? No [...] sent to: pharmacy on file Ann [facility]'haile #[id number] Caller???s Callback #: [phone] Additional Comments: NA Does message need to [...] on filedocumented in this encounter Care Teams Shearing Shed Worker Relationship Specialty Start Date End Date Clare Kasper MD PCP - General Family Medicine 07/27/22 documented as of this encounter
--- OUTSIDE RECORDS SUMMARY | 2024-11-07 16:32 | XMS_ITS | Encounter Summary ---
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 73 m2 CRISTY GLOVER [...] was last reviewed 2021. Testing performed by: [address] [address] Blood 01/24/2023 3:41 PM CDT 01/24/2023 3:57 PM CDT us Clare Kasper MD LAB BLOOD ORDERAB LES Final Result CRISTY [address] [facility] Department [place] [address] * Comprehensive metabolic panel (01/24/2023 3:41 PM CDT) Sodium 140 135 - 145 mmol/L CRISTY GLOVER Comment:Testing performed by : [address] [address] Potassium, pl 4.0 3.3 - 4.9 mmol/L CRISTY GLOVER Comment:Testing performed by : [address], [place]., [address] Chloride 104 97 - 110 mmol/L CRISTY Comment:Testing performed by : [address], [place]., [address] CO2 22 22 - 32 mmol/L CRISTY Comment:Testing performed by : [address], [place]., [address] Anion gap 14 2 - 15 mmol/L CRISTY Comment:Testing performed by : [address], [place]., [address] BUN 10 8 - 25 mg/dL CRISTY Comment:Testing performed by : [address], [place]., [address] Creatinine 0.80 0.80 - 1.30 mg/dL CRISTY Comment:Testing performed by : [address], [place]., [address] Glucose 95 70 - 199 mg/dL CRISTY [...] was last revised 2022. Testing performed by: [address] [address] Calcium 9.5 8.5 - 10.3 mg/dL CRISTY Comment:Testing performed by : [address] [address] Bilirubin, total 0.4 0.1 - 1.2 mg/dL CRISTY Comment:Testing performed by : [address] [address] Protein, pl 7.5 6.5 - 8.5 g/dL CRISTY Comment:Testing performed by : [address] [address] Albumin 4.5 3.5 - 5.0 g/dL CRISTY GLOVER Comment:Testing performed by : [address] [address] Alk phos 77 40 - 130 Units/L CRISTY GLOVER Comment:Testing performed by : [address] [address] ALT 12 7 - 55 Units/L CRISTY GLOVER Comment:Testing performed by : [address] [address] AST 26 10 - 50 Units/L CRISTY Comment:Testing performed by : [address] [address] Blood 01/24/2023 3:41 PM CDT 01/24/2023 3:57 PM CDT Clare Kasper MD LAB BLOOD ORDERAB LES Final Result Performing Organization Address City/State/[facility] Phone Number CRISTY [address] [facility] Department [place] [address] * Lipid panel (01/24/2023 3:41 PM CDT) Pathologist [facility] Cholesterol 137 30 - 199 mg/dL CRISTY [...] last revised on 2018. Testing performed by: [address] [address] Triglycerides 77 <=149 mg/dL CRISTY GLOVER Comment: [...] last revised on 2018. Testing performed by: [address] [address] HDL 46 >=40 mg/dL CRISTY Comment: Interpretive [...] last revised on 2018. Testing performed by: [address] [address] LDL, calculated 76 <=129 mg/dL CRISTY Comment: [...] last revised on 2018. Testing performed by: [address] [address] Non-HDL Cholesterol 91 mg/dL CRISTY GLOVER Comment: [...] last revised on 2018. Testing performed by: [address] [address] Chol/HDL ratio 3 CRISTY Comment:Testing performed by : [address] [address] Blood 01/24/2023 3:41 PM CDT 01/24/2023 3:57 PM CDT us Clare Kasper MD LAB BLOOD ORDERAB LES Final Result CRISTY GL[facility] [address] [facility] [place] [place] [address] * Hemoglobin A1c (01/24/2023 3:41 PM CDT) Hgb A1C 5.5 4.0 - 5.6 % CRISTY Comment:Testing performed by : [address] [address] Estimated Average Glucose 111 mg/dL CRISTY Comment: The ADA recommends reporting an estimated Average Glucose (eAG) with all Hemoglobin A1c results using the equation derived from a study of 507 normal and diabetic adults. ??Minority populations were underrepresented and children were not included. ?? (Diabetes Care 31:3660-5122, 2008). ??The eAG is not equivalent to a fasting glucose. Testing performed by: [facility], [address] [place] [address]., [address] Blood 01/24/2023 3:41 PM CDT 01/24/2023 3:57 PM CDT us Clare Kasper MD LAB BLOOD ORDERAB LES Final Result CRISTY [address] [facility] [place] [address] documented in this encounter Visit Diagnoses Diagnosis Polyuria Hyperlipidemia, unspecified hyperlipidemia type Primary hypertension Unspecified essential hypertension documented in this encounter Care Teams Life Science Technician Relationship Specialty Start Date End Date Clare Kasper MD PCP - General Family Medicine 07/27/22 documented as of this encounter
--- OUTSIDE RECORDS SUMMARY | 2024-11-07 16:32 | XMS_ITS | Encounter Summary ---
Author Organization [facility] Healthcare Address [address] [place] [address] Care Team Providers Care Veterinary Manager Name Role Phone Clare Kasper MD Primary Care Pro vider Reason for Visit * Reason Comments Palpitations * Consultation (Routine) - Closed Specialty Diagnoses / Procedures Referred By Contac t Referred To Contact Cardiology Diagnoses Palpitations ST segment changes on electrocardiography Clare Kasper MD [address] [facility] [address] [place] [address] Phone: tel: fax: [facility] Medical Group Cardiology [address] [place] [phone] Phone: tel: fax: Referral ID Status Reason Start Date Expiration Date V isits Requested Visits Authorized [id number] Closed Specialty Services Required 10/26/2023 11/24/2024 1 1 Encounter Details Date Type Department Care Team (Latest Contact Info) Description 12/15/2023 2:15 PM CONSUMER INSIGHTS SPECIALIST Office Visit [facility] Medical [facility] Cardiology [address] [place] [phone] Momo Latham MD [address] [facility] [address] [place] [address] Palpitations; ST segment changes on electrocardiography Social [...] on file Legal Sex Male 2:37 PM CONSUMER INSIGHTS SPECIALIST Gender Identity Not on file Sexual Orientation Not on file documented as of this encounter Last Filed Vital Signs Vital Sign Reading Time Taken Comments Blood Pressure 130/78 12/15/2023 2:01 PM CONSUMER INSIGHTS SPECIALIST Pulse 87 12/15/2023 2:01 PM CONSUMER INSIGHTS SPECIALIST Temperature - - Respiratory Rate - - Oxygen Saturation 98% 12/15/2023 2:01 PM CONSUMER INSIGHTS SPECIALIST Inhaled Oxygen Concentration - - Weight 52.2 kg (115 lb) 12/15/2023 2:01 PM CONSUMER INSIGHTS SPECIALIST Height 170.2 cm (5' 7 ) 12/15/2023 2:01 PM CONSUMER INSIGHTS SPECIALIST Body Mass Index 18.01 12/15/2023 2:01 PM CONSUMER INSIGHTS SPECIALIST documented in this encounter Progress Notes * [...] Moving all extremities well. 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 EKG from September 2023 reviewed, shows [...] or concerns. Sincerely yours, Momo Latham MD UMER INSIGHTS SPECIALIST documented in this encounter Plan of Treatment [...] 12/15/2023 documented in this encounter Care Teams Veterinary Manager Relationship Specialty Start Date End Date Clare Kasper MD PCP - General Family Medicine 07/27/22 documented as of this encounter
--- OUTSIDE RECORDS SUMMARY | 2024-11-07 16:32 | XMS_ITS | Encounter Summary ---
Author Organization [facility] Address [address] [place] [address] Phone Care Team Providers Care Mailroom Coordinator Name Role Phone Clare Kasper MD Primary Care Pro vider Reason for Visit * Reason Onset Date Comments Medication Problem 04/16/2024 Pimecrolimus Encounter Details Date Type Department Care Team (Late st Contact Info) Description 04/16/[address] 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
--- OUTSIDE RECORDS SUMMARY | 2024-11-07 16:32 | XMS_ITS | Encounter Summary ---
Author Organization [facility] Address [address] [place] [address] Care Team Providers Care Hadoop Developer Name Role Phone Unavailable Primary Care Provider Unavailabl e Encounter Details Date Type Department Care Team (Late st Contact Info) Description 12/17/2020 Lab Requisition [facility] Mobile Testing [facility] [address] [place] [address] Beny Osborn MD [address] [place] [address] [place] [address] Social History Tobacco Use Types Packs/Day Years Used Date Smoking Tobacco: Never Assessed Sex and Gender Information Value Date Recorded Sex Assigned at Not on file Legal Sex Male 12:51 PM METAL FINISHER Gender Identity Not on file Sexual Orientation Not on file documented as of this encounter Plan of Treatment Not on file documented as of this encounter Procedures Procedure Name Priority Date/Time Associated Diagnosis Comments SARS-COV-2 PCR [facility] ONLY Routine 12/17/2020 12:54 PM METAL FINISHER documented in this encounter Visit Diagnoses Not on filedocumented in this encounter
--- OUTSIDE RECORDS SUMMARY | 2024-11-07 16:32 | XMS_ITS | Encounter Summary ---
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 He is supposed to fly tomorrow to [place] and was wondering if it was safe [...] to pt. Nothing further at this time. [employer]OR [employer] * Telephone Encounter - Rita Forte - 10/26/2023 1:03 PM CST Call Back Caller???s Concern: Patient calling Mia back. AC reviewed notes and transferred patient tot backline Does message need to be routed? No [employer] * Telephone Encounter - Mia Snyder MA - 10/26/2023 12:55 PM CST Tried calling pt but phone call was lost. Unable to reach. Will try again. [employer] * Telephone Encounter - Mia Snyder MA - 10/26/2023 12:55 PM CST ----- Message from Clare Kasper MD sent at 10/26/2023 11:14 AM SUPERVISOR STEFFEN HOUSE ----- Please advise EKG abnormal. I have placed a referral to cardiology, please give him the number to call if he hasn't heard from them to schedule. If he has any recurrent chest pain, palpitations, shortness of breath, etc advise he go to ED immediately. [employer]OR [employer] documented in this encounter Plan of Treatment [...] on filedocumented in this encounter Care Teams Keypunch Operator Relationship Specialty Start Date End Date Clare Kasper MD PCP - General Family Medicine 07/27/22 documented as of this encounter
--- OUTSIDE RECORDS SUMMARY | 2024-11-07 16:32 | XMS_ITS | Encounter Summary ---
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 Gender Identity Not on file Sexual [...] 12-LEAD (04/20/2023 7:29 PM CDT) Narrative [facility] - 04/20/2023 7:29 PM CDT Home [place], [...] Lei Griffith MD ECG ORDERABLES Final Result [facility] documented in this encounter Visit Diagnoses Not on filedocumented in this encounter Active and Recently Administered Medications Orders Medications Ordered That Gama ht Not Have Been Administered Count Last Ordered Date First Ordered Date aspirin chewable tablet 324 mg 1 04/20/2023 documented in this encounter Care Teams Campaign Analyst Relationship Specialty Start Date End Date Clare Kasper MD PCP - General Family Medicine 07/27/22 documented as of this encounter
--- OUTSIDE RECORDS SUMMARY | 2024-11-07 16:32 | XMS_ITS | Encounter Summary ---
Author Organization [facility] Address [address] [place] [address] Care Team Providers Care Wood Turning Lathe Operator Name Role Phone Clare Kasper MD Primary Care Pro vider Reason for Visit * Reason Onset Date Comments Medical Question/Miscellaneous 02/16/2023 Call Back 02/16/2023 Encounter Details Date Type Department Care Team (Late st Contact Info) Description 02/16/2023 Telephone [facility] Medical [facility] Primary Care [address] [place] [address] Clare Kasper MD [address] [facility] [address] [place] [address] Medical Question/Miscellaneous; Call Back Social [...] on file 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 Caller???s Call back #: [phone] Does message need to be routed? Yes-Action Needed * Telephone Encounter - Mia Snyder MA - 02/18/2023 4:52 PM CDT [facility] * Telephone Encounter - Lizy Birmingham - 02/18/2023 4:18 PM CDT Call Back Caller???s Concern: patient missed a call from Mia and is returning her call. Call warm transferred to the backline. Caller???s Call back #: [phone] Does message need to be routed? No * Telephone Encounter - Dari Rooney MA - 02/18/2023 9:15 AM CDT Call Back Caller???s Concern: pt calling back. He states that letter is fine to go to his mychart. Please inform pt when letter is sent. Caller???s Call back #: [phone] Does message need to be routed? Yes-Action [...] healed at this time. Please advise. Thanks. [facility] [phone] * Telephone Encounter - Arlene Jurado - 02/17/2023 9:26 AM CDT Call Back Caller???s Concern: pt states that's incorrect - after the ear was cleaned up she never came back in the room but she never physically told him that. Pt attempted to schedule but no appts until 04/19/2023 - pt requesting to speak to a nurse for resolution, Caller???s Call back #: [phone] Does message need to be routed? Yes-Action [...] because of hisear. Caller???s Call back #: [phone] Does message need to be routed?Yes-Action Needed [...] on filedocumented in this encounter Care Teams Wood Turning Lathe Operator Relationship Specialty Start Date End Date Clare Kasper MD PCP - General Family Medicine 07/27/22 documented as of this encounter
--- OUTSIDE RECORDS SUMMARY | 2024-11-07 16:32 | XMS_ITS | Encounter Summary ---
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 Assisted with appt today at [facility] at 1800 Reason for Disposition Eyelid is very swollen and no fever Protocols used: [id number] NE FUEL DOCK ATTENDANT * Telephone Encounter - Kassie Hanson RN - 12/08/2023 11:38 AM CST Regarding: cyst/boil by right eye ----- Message from Lizy Birmingham sent at 12/08/2023 10:24 AM MARINE FUEL DOCK ATTENDANT ----- Symptom Based Call Chief Complaint(s): cyst/boil [...] message need to be routed? Yes-Action Needed NE FUEL DOCK ATTENDANT documented in this encounter Plan of Treatment [...] on filedocumented in this encounter Care Teams Diesel Locomotive Engineer Relationship Specialty Start Date End Date Clare Kasper MD PCP - General Family Medicine 07/27/22 documented as of this encounter
--- OUTSIDE RECORDS SUMMARY | 2024-11-07 16:32 | XMS_ITS | Clinical Summary ---
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
--- OUTSIDE RECORDS SUMMARY | 2024-11-07 16:32 | XMS_ITS | Encounter Summary ---
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 CRISTY [place] Comment:Testing performed by : [address] [address] Urine, clean voided 03/27/2024 5:41 PM CDT 03/27/2024 6:54 PM CDT us Clare Kasper MD LAB URINE ORDERAB LES Final Result CRISTY GLOVER [address] [facility] Department [place] [address] * Differential, auto (03/27/2024 5:41 PM CDT) Neutrophil abs 3.5 1.5 - 6.5 K/cumm Comment:Testing performed by : [address] [address] Imm gran abs 0.0 0.0 - 0.1 K/cumm [facility] Comment:Testing performed by : [address] [address] Lymphocyte abs 3.0 0.8 - 3.3 K/cumm [facility] Comment:Testing performed by : [address] [address] Monocyte abs 0.4 0.2 - 0.8 K/cumm [facility] Comment:Testing performed by : [address] [address] Eosinophil abs 0.3 0.0 - 0.5 K/cumm [facility] Comment:Testing performed by : [address] [address] Basophil abs 0.1 0.0 - 0.1 K/cumm [facility] Comment:Testing performed by : [address] [address] Neutrophil pct 47.6 % [facility] Comment: Interpretive Data Percent cell count reference ranges are not reported, since discordance with absolute values may lead to misinterpretation of CBC data. Current Interpretive Data was last revised on 2018. Testing performed by: [address] [address] Imm gran pct 0.1 % [facility] Comment: Interpretive Data Percent cell count reference ranges are not reported, since discordance with absolute values may lead to misinterpretation of CBC data. Current Interpretive Data was last revised on 2018. Testing performed by: [address] [address] Lymphocyte pct 41.2 % CERNER Comment: Interpretive Data Percent cell count reference ranges are not reported, since discordance with absolute values may lead to misinterpretation of CBC data. Current Interpretive Data was last revised on 2018. Testing performed by: [address] [place]., [address] Monocyte pct 6.0 % CRISTY Comment: Interpretive Data Percent cell count reference ranges are not reported, since discordance with absolute values may lead to misinterpretation of CBC data. Current Interpretive Data was last revised on 2018. Testing performed by: [address] [address] Eosinophil pct 4.1 % CRISTY Comment: Interpretive Data Percent cell count reference ranges are not reported, since discordance with absolute values may lead to misinterpretation of CBC data. Current Interpretive Data was last revised on 2018. Testing performed by: [address] [address] Basophil pct 1.0 % CRISTY Comment: Interpretive Data Percent cell count reference ranges are not reported, since discordance with absolute values may lead to misinterpretation of CBC data. Current Interpretive Data was last revised on 2018. Testing performed by: [address] [address] Blood 03/27/2024 5:41 PM CDT 03/27/2024 6:00 PM CDT us Clare Kasper MD LAB BLOOD ORDERAB LES Final Result CRISTY [address] [facility] Department of Laboratories [place], [place] [id number] * (ABNORMAL) Urinalysis reflex to microscopic and culture Urine, clean voided (03/27/2024 5:41 PM CDT) Color, ur Yellow Yellow Comment:Testing performed by : [address] [address] Clarity, ur Clear Clear CRISTY GLOVER Comment:Testing performed by : [address] [address] Specific gravity, ur 1.010 1.003 - 1.030 CRISTY GLOVER Comment:Testing performed by : [address] [address] pH, urine 5.5 CRISTY Comment: Interpretive Data ? Urine pH is affected by diet, medications, systemic acid-base disturbances, and renal tubular function. ??pH may affect urinary stone formation. ??For example, urine pH below 6.0 may help reduce the tendency for calcium phosphate stones and pH greater than 6.0 may reduce the tendency for uric acid stone formation. Source: [facility] Current Interpretive Data was last revised on 2017 Testing performed by: [address] [address] Protein, ur ql Negative Negative CRISTY Comment:Testing performed by : [address], [place]., [address] Glucose, ur ql Negative Negative CRISTY Comment:Testing performed by : [address], [place]., [address] Ketones, ur Negative Negative CRISTY Comment:Testing performed by : [address], [place]., [address] Bilirubin, ur Negative Negative CRISTY Comment:Testing performed by : [address], [place]., [address] Blood, ur 1+(A) Negative CRISTY Comment:Testing performed by : [address], [place]., [address] Urobilinogen, ur <2.0 <2.0 mg/dL CRISTY Comment:Testing performed by : [address], [place]., [address] Nitrite, ur Negative Negative CRISTY Comment:Testing performed by : [address] [address] Leukocyte esterase, ur Negative Negative CRISTY Comment:Testing performed by : [address], [place]., [address] UA reflex comment Reflex to microscopic UA will be performed. CRISTY Comment:Testing performed by : [address] [address] Urine, clean voided 03/27/2024 5:41 PM CDT 03/27/2024 6:54 PM CDT Clare Kasper MD LAB MICROBIOLOGY - GENERAL ORDERABLES Final Result CRISTY [address] [facility] Department [place] [address] * (ABNORMAL) CBC with auto differential (03/27/2024 5:41 PM CDT) WBC 7.3 3.8 - 9.9 K/cumm Comment:Testing performed by : [address] [address] Hgb 13.6 13.0 - 17.5 g/dL CRISTY Comment:Testing performed by : [address] [address] Hct 38.7(L) 38.9 - 50.3 % CRISTY Comment:Testing performed by : [address] [address] Plt 191 150 - 400 K/cumm CRISTY Comment:Testing performed by : [address] [address] MPV 9.2 9.1 - 12.3 fL CRISTY Comment:Testing performed by : [address] [address] RBC 4.24(L) 4.30 - 5.80 M/cumm CRISTY Comment:Testing performed by : [address] [address] MCV 91.3 81.3 - 96.4 fL CRISTY Comment:Testing performed by : [address] [address] MCH 32.1 27.1 - 33.3 pg CRISTY Comment:Testing performed by : [address] [address] MCHC 35.1 32.3 - 35.7 g/dL CRISTY Comment:Testing performed by : [address] [address] RDW CV 12.1 11.1 - 14.9 % CRISTY Comment:Testing performed by : [address] [address] RDW SD 40.1 35.7 - 48.1 fL CRISTY GLOVER Comment:Testing performed by : [facility], [address] [place] [address]., [address] NRBC abs 0.00 0.00 - 0.01 K/cumm CRISTY GLOVER Comment:Testing performed by : [facility], [address] [place] [address]., [address] Blood 03/27/2024 5:41 PM CDT 03/27/2024 6:00 PM CDT Clare Kasper MD LAB BLOOD ORDERAB LES Final Result Performing Organization Address [facility] de Phone Number CRISTY [address] [place] [address] * HIV 1/2 Antibody plus p24 Antigen [...] GENERAL ORDERABLES Final Result Performing Organization Address [facility] de Phone Number [place] [address] [facility] [place] [address] * Hepatitis panel, acute Blood (03/27/2024 5:41 [...] MICROBIOLOGY - GENERAL ORDERABLES Final Result CRISTY [address] [facility] Department [place] [address] * N. gonorrhoeae/C. trachomatis Amplification Urine (03/27/2024 5:41 PM CDT) Pathologist [facility] C. trachomatis Not Detected [facility] Comment:Testing performed by : [facility], [address] [place] [address] N. gonorrhoeae Not Detected CRISTY Comment: Interpretive Data This assay detects Chlamydia trachomatis and Neisseria gonorrhoeae by nucleic acid amplification testing (NAAT). This assay has been cleared by the [place] Food and Drug administration. The performance characteristics of this test have been verified by the [facility] Infectious Disease laboratory. The performance characteristics of this test have not been evaluated in individuals less than 14 years of age. Current Interpretive Data was last revised on 2023. Testing performed by: [facility], [address] [place] [address] Urine (None) 03/27/2024 5:41 PM CDT 03/27/2024 5:41 PM CDT Result [facility] Clare Kasper MD LAB MICROBIOLOGY - GENERAL ORDERABLES Final Result Performing Organization Address [facility] de Phone Number CRISTY [address] [address] [facility] * RPR Blood (03/27/2024 5:41 PM CDT) Pathologist [facility] RPR Nonreactive Nonreactive Comment:Testing performed by : [facility], [address] [place] [address]., [address] Blood 03/27/2024 5:41 PM CDT 03/27/2024 9:05 PM CDT Clare Kasper MD LAB MICROBIOLOGY - GENERAL ORDERABLES Final Result Performing Organization Address [facility] de Phone Number MARCELO[address] [place] [address] * Trichomonas vaginalis PCR Urine (03/27/2024 5:41 PM CDT) Pathologist [facility] Trichomonas DNA Not Detected [facility] Comment: Interpretive Data This assay detects Trichomonas vaginalis by nucleic acid amplification testing (NAAT). This assay has been cleared by the [place] Food and Drug administration. The performance characteristics of this test have been verified by the [facility] laboratory. The performance of this test has not been evaluated in individuals less than 18 years of age. ?? Current Interpretive Data was last revised on 2023. Testing performed by: [facility], [address] [place] [address]., [address] Urine 03/27/2024 5:41 PM CDT 03/27/2024 5:41 PM CDT Clare Kasper MD LAB MICROBIOLOGY - GENERAL ORDERABLES Final Result Performing Organization Address [facility]/State/ZIP Co de Phone Number CRISTY [place] [address] [facility] Department [place] [address] [facility] documented in this encounter Visit Diagnoses Diagnosis Routine screening for STI (sexually transmitted infection) Screening examination for venereal disease Leukocytosis, unspecified type Urinary frequency documented in this encounter Care Teams Piano Sounding Board Matcher Relationship Specialty Start Date End Date Clare Kasper MD PCP - General Family Medicine 07/27/22 documented as of this encounter
--- OUTSIDE RECORDS SUMMARY | 2024-11-07 16:32 | XMS_ITS | Encounter Summary ---
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 Pt verbalizes understanding. RINARY PRACTICE MANAGER * Telephone Encounter - Indigo Dia RN - 12/22/2023 3:30 PM CST Regarding: cyst on face near right eye ----- Message from Dari Rooney MA sent at 12/22/2023 12:57 PM VETERINARY PRACTICE MANAGER ----- Symptom Based Call Chief Complaint(s): cyst [...] message need to be routed? Yes-Action Needed RINARY PRACTICE MANAGER documented in this encounter Plan of [...] steps to maintain regimen ACO Care Management Luara Avery Note: Problem: Medication management Interventions: - [...] on filedocumented in this encounter Care Teams Paint Tinter Relationship Specialty Start Date End Date Clare Kasper MD PCP - General Family Medicine 07/27/22 documented as of this encounter
--- OUTSIDE RECORDS SUMMARY | 2024-11-07 16:32 | XMS_ITS | Encounter Summary ---
Author Organization [facility] Address [address] [place] [address] Care Team Providers Care Area Mechanic Name Role Phone Scar Medina MD Primary Care Pro vider Reason for Referral * Consultation (Routine) - Closed Specialty Diagnoses / Procedures Referred By Litzy mccracken Referred To Contact Cardiology Diagnoses Palpitations ST segment changes on electrocardiography Scar Medina MD [facility] [address] Phone: tel: fax: [facility] Cardiology [address] [place] [address] [place] [phone] Phone: tel: fax: Referral ID Status Reason Start Date Expiration Date V isits Requested Visits Authorized [id number] Closed Specialty Services Required 10/26/2023 11/24/2024 1 1 Question Answer Please select the performing region: [facility] [[id number]] Please select the performing department: [facility] [[id number]] # of visits: 1 SPRAY OPERATOR * Cardiology (Routine) - Closed Specialty Diagnoses / Procedures Referred By Litzy mccracken Referred To Contact Diagnoses Palpitations Procedures ECG 12 lead Scar Medina MD [facility] [place] [address] Phone: tel: fax: [facility] [address] [place] [address] Referral ID Status Reason Start Date Expiration Date Visits Re quested Visits Authorized [id number] Closed 10/25/2023 11/23/2024 1 1 SPRAY OPERATOR Reason for Visit * Reason Comments Annual Exam Encounter Details Date Type Department Care Team (Latest Contact Info) Description 10/25/2023 1:45 PM HAND SPRAY OPERATOR Office Visit [facility] Primary Care at [place] [address] [facility] [address] [place] [address] Scar Medina MD [address] [facility] [address] [place] [address] Annual physical exam (Primary Dx); [...] on file Legal Sex Male 2:37 PM HAND SPRAY OPERATOR Gender Identity Not on file Sexual Orientation Not on file documented as of this encounter Last Filed Vital Signs Vital Sign Reading Time Taken Comments Blood Pressure 134/78 10/25/2023 1:58 PM HAND SPRAY OPERATOR Pulse 99 10/25/2023 1:58 PM HAND SPRAY OPERATOR Temperature 37.6 ??C (99.6 ??F) 10/25/2023 1:58 PM CS T Respiratory Rate 18 10/25/2023 1:58 PM HAND SPRAY OPERATOR Oxygen Saturation 99% 10/25/2023 1:58 PM HAND SPRAY OPERATOR Inhaled Oxygen Concentration - - Weight 53.8 kg (118 lb 9.6 oz) 10/25/2023 1:58 P M HAND SPRAY OPERATOR Height 170.2 cm (5' 7 ) 10/25/2023 1:58 PM HAND SPRAY OPERATOR Body Mass Index 18.58 10/25/2023 1:58 PM HAND SPRAY OPERATOR documented in this encounter Ordered Prescriptions Prescription [...] appropriate judgment and insight Scar Medina MD SPRAY OPERATOR SPRAY OPERATOR documented in this encounter Miscellaneous Notes * Assessment & Plan Note - Scar Medina MD - 10/25/2023 2:42 PM CSTAssociated Problem(s): Hyperlipidemia Continue statin SPRAY OPERATOR * Assessment & Plan Note - Scar Medina MD - 10/25/2023 2:42 PM CSTAssociated Problem(s): Alcohol use disorder Encourage cessation, he is interested in trying naltrexone SPRAY OPERATOR * Assessment & Plan Note - Scar Medina MD - 10/25/2023 2:41 PM CSTAssociated Problem(s): Primary insomnia Trazodone as needed SPRAY OPERATOR * Assessment & Plan Note - Scar Medina MD - 10/25/2023 2:36 PM CSTAssociated Problem(s): GERD (gastroesophageal reflux disease) Uncontrolled Restart omeprazole SPRAY OPERATOR * Assessment & Plan Note - Scar Medina MD - 10/25/2023 2:35 PM CSTAssociated Problem(s): Smoking Encourage cessation, he is interested in starting wellbutrin SPRAY OPERATOR SPRAY OPERATOR * Assessment & Plan Note - Scar Medina MD - 10/25/2023 2:15 PM CSTAssociated Problem(s): Hypertension Blood pressure controlled continue 10mg amlodipine SPRAY OPERATOR * Assessment & Plan Note - Scar Medina MD - 10/25/2023 2:15 PM CSTAssociated Problem(s): Annual physical exam Reviewed PMH & FH Phq reviewed Reviewed medications and supplements HCM: orders placed as needed SPRAY OPERATOR * Addendum Note - Mia Snyder MA - 10/25/2023 1:45 PM CSTAddended by: MIA SNYDER on: 10/25/2023 04:53 PM Modules accepted: Orders SPRAY OPERATOR * Addendum Note - Scar Medina MD - 10/25/2023 1:45 PM HAND SPRAY OPERATOR Addended by: SCAR MEDINA on: 10/26/2023 11:16 AM Modules accepted: Orders SPRAY OPERATOR documented in this encounter Plan of [...] A/B, COVID-19 ANTIGEN Routine 10/25/2023 3:03 PM HAND SPRAY OPERATOR Acute upper respiratory infection documented in this encounter Results * Lipid panel (10/25/2023 4:27 PM HAND SPRAY OPERATOR) [facility] Cholesterol 133 30 - 199 mg/dL [...] revised on 2018. Testing performed by: [facility], [address] [place] [address]., [address] Triglycerides 91 <=149 mg/dL [facility] Comment: [...] last revised on 2018. Testing performed by: [address] [address] HDL 59 >=40 mg/dL [facility] Comment: [...] last revised on 2018. Testing performed by: [address] [address] LDL, calculated 56 <=129 mg/dL [facility] [...] last revised on 2018. Testing performed by: [address] [address] Non-HDL Cholesterol 74 mg/dL [facility] Comment: [...] last revised on 2018. Testing performed by: [address] [address] Chol/HDL ratio 2 [facility] Comment:Testing performed by : [address] [address] Blood 10/25/2023 4:27 PM HAND SPRAY OPERATOR 10/25/2023 5:04 PM HAND SPRAY OPERATOR us Scar Medina MD LAB BLOOD ORDERAB LES Final Result [facility] [address] [facility] Department [place] [address] * TSH (10/25/2023 4:27 PM HAND SPRAY OPERATOR) Thyroid Stimulating Hormone 2.71 0.30 - 4.20 mcIUnit/mL [facility] Comment:Testing performed by : [address] [address] Blood 10/25/2023 4:27 PM HAND SPRAY OPERATOR 10/25/2023 5:04 PM HAND SPRAY OPERATOR us Scar Medina MD LAB BLOOD ORDERAB LES Final Result [facility] [address] [facility] [place] [address] * (ABNORMAL) CBC with auto differential (10/25/2023 4:27 PM HAND SPRAY OPERATOR) WBC 13.5(H) 3.8 - 9.9 K/cumm [facility] Comment:Testing performed by : [address] [address] Hgb 14.8 13.0 - 17.5 g/dL [facility] Comment:Testing performed by : [address] [address] Hct 42.5 38.9 - 50.3 % [facility] Comment:Testing performed by : [address] [address] Plt 200 150 - 400 K/cumm [facility] Comment:Testing performed by : [address] [address] MPV 9.0(L) 9.1 - 12.3 fL [facility] Comment:Testing performed by : [address] [address] RBC 4.55 4.30 - 5.80 M/cumm [facility] Comment:Testing performed by : [address] [address] MCV 93.4 81.3 - 96.4 fL [facility] Comment:Testing performed by : [address] [address] MCH 32.5 27.1 - 33.3 pg [facility] Comment:Testing performed by : [address] [address] MCHC 34.8 32.3 - 35.7 g/dL [facility] Comment:Testing performed by : [address] [address] RDW CV 13.2 11.1 - 14.9 % [facility] Comment:Testing performed by : [address] [address] RDW SD 45.8 35.7 - 48.1 fL [facility] Comment:Testing performed by : [address] [address] NRBC abs 0.00 0.00 - 0.01 K/cumm [facility] Comment:Testing performed by : [address] [address] Blood 10/25/2023 4:27 PM HAND SPRAY OPERATOR 10/25/2023 5:04 PM HAND SPRAY OPERATOR Scar Medina MD LAB BLOOD ORDERAB LES Final Result [facility] [address] [facility] [place] [address] * (ABNORMAL) Comprehensive metabolic panel (10/25/2023 4:27 PM HAND SPRAY OPERATOR) Sodium 140 135 - 145 mmol/L [facility] Comment:Testing performed by : [address] [address] Potassium, pl 4.2 3.3 - 4.9 mmol/L [facility] Comment:Testing performed by : [address] [address] Chloride 101 97 - 110 mmol/L [facility] Comment:Testing performed by : [address] [address] CO2 24 22 - 32 mmol/L [facility] Comment:Testing performed by : [address] [address] Anion gap 15 2 - 15 mmol/L [facility] Comment:Testing performed by : [address] [address] BUN 10 6 - 25 mg/dL [facility] Comment:Testing performed by : [address] [address] Creatinine 1.00 0.80 - 1.30 mg/dL [facility] Comment:Testing performed by : [address] [address] Glucose 69(L) 70 - 199 mg/dL [facility] [...] was last revised 2022. Testing performed by: [address] [address] Calcium 10.1 8.5 - 10.3 mg/dL [facility] Comment:Testing performed by : [address] [address] Bilirubin, total 0.6 0.1 - 1.2 mg/dL [facility] Comment:Testing performed by : [address] [address] Protein, pl 8.0 6.5 - 8.5 g/dL [facility] Comment:Testing performed by : [address] [address] Albumin 5.0 3.5 - 5.0 g/dL [facility] Comment:Testing performed by : [address] [address] Alk phos 79 40 - 130 Units/L [facility] Comment:Testing performed by : [address] [address] ALT 13 7 - 55 Units/L [facility] Comment:Testing performed by : [address] [address] AST 28 10 - 50 Units/L [facility] Comment:Testing performed by : [facility], [address] [place] [address]., [address] Blood 10/25/2023 4:27 PM HAND SPRAY OPERATOR 10/25/2023 5:04 PM HAND SPRAY OPERATOR Scar Medina MD LAB BLOOD ORDERAB LES Final Result Performing Organization Address City/[facility] Co de Phone Number C[facility] [address] [address] * HIV 1/2 Antibody plus p24 Antigen Blood (10/25/2023 4:27 PM HAND SPRAY OPERATOR) HIV 1/2 ab + p24 ag Nonreactive Nonreactive [facility] Comment:Nonreactive for HIV- 1 antigen and HIV-1/HIV-2 antibodies. No laboratory evidence of HIV infection. If acute HIV infection is suspected, consider testing for HIV-1 RNA. Current interpretive data was last revised on 22. Blood 10/25/2023 4:27 PM HAND SPRAY OPERATOR 10/25/2023 6:37 PM HAND SPRAY OPERATOR Scar Medina MD LAB MICROBIOLOGY - GENERAL ORDERABLES Final Result Performing Organization Address [facility] Co de Phone Number CRISTY [address] [place] [address] * Hepatitis panel, acute Blood (10/25/2023 4:27 PM HAND SPRAY OPERATOR) Pathologist [facility] Hep A IgM Nonreactive Nonreactive [facility] Comment: [...] Nonreactive Nonreactive [facility] Blood 10/25/2023 4:27 PM HAND SPRAY OPERATOR 10/25/2023 6:37 PM HAND SPRAY OPERATOR Scar Medina MD LAB MICROBIOLOGY - GENERAL ORDERABLES Final Result Performing Organization Address [facility] de Phone Number [facility] [place] [address] * N. gonorrhoeae/C. trachomatis Amplification Urine (10/25/2023 4:27 PM HAND SPRAY OPERATOR) C. trachomatis Not Detected Not Detected [facility] Comment:Testing performed by : [facility], [address] [place] [address]., [address] N. gonorrhoeae Not Detected Not Detected [facility] Comment: Interpretive Data This assay detects Chlamydia trachomatis and Neisseria gonorrhoeae by nucleic acid amplification testing (NAAT). This assay has been cleared by the [place] Food and Drug administration. The performance characteristics of this test have been verified by the [facility]. The performance characteristics of this test have not been evaluated in individuals less than 14 years of age. Current Interpretive Data last revised 2023. Testing performed by: [facility], [address] [place] [address]., [address] Urine (None) 10/25/2023 4:27 PM HAND SPRAY OPERATOR 10/25/2023 7:32 PM HAND SPRAY OPERATOR Scar Medina MD LAB MICROBIOLOGY - GENERAL ORDERABLES Final Result Performing Organization Address City/[facility] Co de Phone Number [facility] [address] [place] [address] [place] [address] * RPR Blood (10/25/2023 4:27 PM HAND SPRAY OPERATOR) RPR Nonreactive Nonreactive [facility] Comment:Testing performed by : [facility], [address] [facility], [place]., [address] Blood 10/25/2023 4:27 PM HAND SPRAY OPERATOR 10/25/2023 7:34 PM HAND SPRAY OPERATOR Scar Medina MD LAB MICROBIOLOGY - GENERAL ORDERABLES Final Result Performing Organization Address City/[facility]/ZIP Co de Phone Number CRISTY [address] [address] * ECG 12 lead (10/25/2023 3:52 PM HAND SPRAY OPERATOR) Ventricular Rate EKG/Min 69 BPM [facility] Atrial Rate 69 BPM [facility] NV-Interval (MSEC) 114 ms [facility] QRS-Interval (MSEC) 72 ms [facility] QT-Interval (MSEC) 372 ms [facility] QTc 398 ms [facility] P Aspen 70 degrees [facility] R Aspen -13 degrees [facility] T Aspen 37 degrees [facility] Diagnosis Normal sinus rhythm ST-changes When compared with ECG of 12-NOV-2004 00:08, ST-changes are now Confirmed by SULTAN HALL M.D. ([id number]) on 10/25/2023 6:00:40 PM [facility] 10/25/2023 3:52 PM HAND SPRAY OPERATOR 10/25/2023 6:00 PM HAND SPRAY OPERATOR Scar Medina MD ECG ORDERABLES F inal Result [facility] * POC Influenza A/B, COVID-19 antigen (10/25/2023 3:03 PM HAND SPRAY OPERATOR) Influenza A Ag, POC Negative Negative [facility] [place] [address] Influenza B Ag, POC Negative Negative [facility] [place] [address] COVID-19 Ag POC Presumptive Negative Presumptive Negative, Invalid [facility] [place] [address] Nasopharyngeal 10/25/2023 3: 03 PM HAND SPRAY OPERATOR us Scar Medina MD POINT OF CARE EUSEBIA T ORDERABLES Final Result [facility] [address] documented in this encounter Visit Diagnoses [...] COVID: Suspected 10/25/2023 10/25/2023 10/25/2023 4:54 PM HAND SPRAY OPERATOR documented as of this encounter Care Teams Area Mechanic Relationship Specialty Start Date End Date Scar Medina MD PCP - General Family Medicine 07/27/22 documented as of this encounter
--- OUTSIDE RECORDS SUMMARY | 2024-11-07 16:32 | XMS_ITS | Referral Summary ---
Author Organization [facility] Address [address] [place] [address] Care Team Providers Care Bottle Line Worker Name Role Phone Clare Kasper MD Primary Care Pro vider Encounters Date Type Department Care Team Description 10/31/2024 Nurse Triage [facility] Primary Care at [address] [phone] Clare Kasper MD 10/12/2024 1:45 PM WAREHOUSE SHIFT SUPERVISOR Office Visit [facility] Primary Care at [address] [phone] Clare Kasper MD Alcohol use disorder (Primary Dx); Acute non-recurrent maxillary sinusitis 10/11/2024 Telephone [facility] Primary Care at [address] [address] Clare Kasper MD Medical Question/Miscellaneou [...] needed Assessment & Plan (10/25/2023 2:41 PM WAREHOUSE SHIFT SUPERVISOR): Trazodone as needed Assessment & Plan (03/25/2022 [...] statin Assessment & Plan (10/25/2023 2:42 PM WAREHOUSE SHIFT SUPERVISOR): Continue statin Assessment & Plan (01/24/2023 2:35 [...] (06/18/20) Assessment & Plan (10/25/2023 2:15 PM WAREHOUSE SHIFT SUPERVISOR): Reviewed PMH & FH Phq reviewed Reviewed [...] July Assessment & Plan (09/29/2018 5:39 PM WAREHOUSE SHIFT SUPERVISOR): Flu shot and referral for colonoscopy today Anemia 06/13/2018 Assessment & Plan (09/29/2018 5:27 PM WAREHOUSE SHIFT SUPERVISOR): Mild anemia with last Hb 12.9 (from 12/2016). Folate, B12, Iron panel normal. -CBC today GERD (gastroesophageal reflux disease) 5 Assessment & Plan (03/27/2024 5:05 PM CDT): Stable off medications Assessment & Plan (10/25/2023 2:36 PM WAREHOUSE SHIFT SUPERVISOR): Uncontrolled Restart omeprazole Assessment & Plan (01/24/2023 [...] amlodipine Assessment & Plan (10/25/2023 2:15 PM WAREHOUSE SHIFT SUPERVISOR): Blood pressure controlled continue 10mg amlodipine Assessment [...] hyperkalemia Assessment & Plan (12/08/2020 12:32 PM WAREHOUSE SHIFT SUPERVISOR): Blood pressure very well-controlled with amlodipine. No [...] daily Assessment & Plan (09/29/2018 5:25 PM WAREHOUSE SHIFT SUPERVISOR): Poorly controlled hypertension 157/81 in clinic today. [...] cessation Assessment & Plan (10/25/2023 2:42 PM WAREHOUSE SHIFT SUPERVISOR): Encourage cessation, he is interested in starting wellbutrin Assessment & Plan (09/29/2018 5:29 PM WAREHOUSE SHIFT SUPERVISOR): Was given patches at our last visit however he feels like they make him itch. He continues to smoke 1/2PPD. -As he has other active issues going on today, namely ETOH cessation, we will defer further discussion to our next visit. Would consider pharmacologic therapy for him, chantix vs wellbutrin. 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 No indication for [...] available. 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 [...] request) Assessment & Plan (09/29/2018 5:26 PM WAREHOUSE SHIFT SUPERVISOR): Vitamin D 18 on 05/2018 labs, will [...] file Legal Sex Male 2:37 PM WAREHOUSE SHIFT SUPERVISOR Gender Identity Not on file Sexual Orientation Not on file Last Filed Vital Signs Vital Sign Reading Time Taken Comments Blood Pressure 137/88 10/12/2024 1:47 PM WAREHOUSE SHIFT SUPERVISOR Pulse 100 10/12/2024 1:47 PM WAREHOUSE SHIFT SUPERVISOR Temperature 36.8 ??C (98.2 ??F) 10/12/2024 1:47 PM CS T Respiratory Rate 18 10/12/2024 1:47 PM WAREHOUSE SHIFT SUPERVISOR Oxygen Saturation 99% 10/12/2024 1:47 PM WAREHOUSE SHIFT SUPERVISOR Inhaled Oxygen Concentration - - Weight 49.8 kg (109 lb 11.2 oz) 10/12/2024 1:47 PM WAREHOUSE SHIFT SUPERVISOR Height 170.2 cm (5' 7 ) 10/12/2024 1:47 PM WAREHOUSE SHIFT SUPERVISOR Body Mass Index 17.18 10/12/2024 1:47 PM WAREHOUSE SHIFT SUPERVISOR Plan of Treatment Not on file Goals [...] 20. Hep B core IgM Nonreactive Nonreactive [facility] Comment: Interpretive Data If HepB Core IgM Ab is reported as Equivocal, a new sample should be drawn in two weeks for testing. Current interpretive data was last revised on 20. Hep C Ab Nonreactive Nonreactive [facility] Comment: Antibodies to HCV not detected. [...] MICROBIOLOGY - GENERAL ORDERABLES Final Result [facility] [address] [facility] Department [place] [address] * PSA screen (07/27/2022 5:14 [...] last revised 22. Testing performed by: [facility], [address] [place] [address]., [address] Blood 07/27/2022 5:14 PM CDT 07/27/2022 5:18 PM CDT Clare Kasper MD LAB BLOOD ORDERAB LES Final Result [facility] [address] [employer] Department of Laboratories [place], [place] [id number] * COLONOSCOPY (06/24/2021 9:15 AM CDT) Anatomical Region Laterality Modality Other Narrative Procedure Note Noemi Mccoy MD - 06/24/2021 9:15 AM CDT [facility] Patient Name: Yariel Hill Procedure Date: 06/24/2021 9:15 AM Date of : 1970 Admit Type: Outpatient Age: 51 Gender: Male Attending MD: Noemi Mccoy M.D. Room: [facility] ENDOSCOPY ROOM 8 Note Status: Finalized [...] were verified by the physician,the nurse, the museum specialist and the biology specimen technician in the procedure room. Respiratory Examination: [...] bowel preparation was evaluated using the BBPS (Wald[place] Bowel Preparation Scale)with scores of: Right Colon [...] On: 06/24/2021 9:15 AM Recognized by the [employer] [employer] for promoting quality in endoscopy Noemi Mccoy MD ENDOSCOPY PROCEDURES Final R esult from Last 3 Months or Most Recently Relevant to Health Maintenance Insurance * Guarantor: Yariel Hill Account Type Relation to Patient Date of Phone Billing Address Personal/Family Self [address] [place] [id number] [facility] Advance Directives For more information, please contact: [phone] * Full Code (Latest Code Status on File) Date Activated Date Inactivated Comments 06/24/2021 8:04 AM 06/24/2021 2:35 PM * Full Code Date Activated Date Inactivated Comments 05/14/2020 9:51 AM 05/14/2020 5:15 PM Care Teams Bottle Line Worker Relationship Specialty Start Date End Date Clare Kasper MD PCP - General Family Medicine 07/27/22
--- OUTSIDE RECORDS SUMMARY | 2024-11-07 16:32 | XMS_ITS | Encounter Summary ---
Author Organization [facility] Healthcare Address [address] [place] [address] Care Team Providers Care Diving Supervisor Name Role Phone Clare Kasper MD Primary Care Pro vider Encounter Details Date Type Department Care Team (Latest Contact Info) Description 12/08/2023 6:30 PM INSURANCE SALES PROFESSIONAL - 12/08/2023 11:59 PM [facility] Hospital Encounter [address] [address] Abscess of face Discharge Disposition: Discharge to [...] Legal Sex Male 2:37 PM INSURANCE SALES PROFESSIONAL Gender Identity Not on file Sexual [...] AND GRAM STAIN Routine 12/08/2023 6:30 PM INSURANCE SALES PROFESSIONAL Abscess of face documented in this encounter Results * (ABNORMAL) Aerobic culture and gram stain Abscess Face (12/08/2023 6:30 PM INSURANCE SALES PROFESSIONAL) Direct Specimen Exam Stain: Few polymorphonuclear leukocytes seen. No organisms seen. [facility] ORO[facility]CO Report Final Report: Few Staphylococcus lugdunensis Rare Mixed microorganisms. (.) CERNAM OROZCO Organism STAPHYLOCOCCUS LUGDUNENSIS [facility] Organism MIXED MICROORGANISMS. CRISTY OROZCO Abscess (Face) 12/08/2023 6: 30 PM INSURANCE SALES PROFESSIONAL 12/08/2023 9:20 PM INSURANCE SALES PROFESSIONAL Narrative CRISTY BROWNING - 12/14/2023 2:30 PM INSURANCE SALES PROFESSIONAL Specimen received on an ESwab. Testing performed by [facility] ([phone]) Specimens submitted from normally sterile body sites [...] lugdunensis Ceftriaxone INTERPRETATION Susceptible us Lauren Xiong [employer]TH SUPERVISOR LAB MICROBIOLOGY - [facility] JORDYN SANDERS Final Result CRISTY OROZCO [facility] Department [place] [address] documented in this encounter Visit Diagnoses Diagnosis Abscess of face Cellulitis and abscess of face documented in this encounter Care Teams Diving Supervisor Relationship Specialty Start Date End Date Clare Kasper MD PCP - General Family Medicine 07/27/22 documented as of this encounter
--- OUTSIDE RECORDS SUMMARY | 2024-11-07 16:32 | XMS_ITS | Encounter Summary ---
Author Organization [facility] Address [address] [place] [address] Care Team Providers Care Warm In Name Role Phone Unavailable Primary Care Provider Unavailabl e Encounter Details Date Type Department Care Team (Late st Contact Info) Description 12/17/2020 1:00 PM KENNEL WORKER Rapid Evaluation [place] [facility] Mobile Testing [facility] [address] [place] [address] Social History Tobacco Use Types Packs/Day Years Used Date Smoking Tobacco: Never Assessed Sex and Gender Information Value Date Recorded Sex Assigned at Not on file Legal Sex Male 12:51 PM KENNEL WORKER Gender Identity Not on file Sexual Orientation Not on file documented as of this encounter Plan of Treatment Not on file documented as of this encounter Visit Diagnoses Not on filedocumented in this encounter
--- OUTSIDE RECORDS SUMMARY | 2024-11-07 16:32 | XMS_ITS | Encounter Summary ---
Author Organization [facility] Healthcare Address [address] [place] [address] Care Team Providers Care Multiple Knife Edge Trimmer Operator Name Role Phone Clare Kasper MD Primary Care Pro vider Reason for Visit * Reason Onset Date Comments Medical Records Request 12/23/2023 Encounter Details Date Type Department Care Team ([facility] Contact Info) Description 12/23/2023 Telephone [facility] Primary Care at [address] [address] Clare Kasper MD [address] [place] [address] Medical Records Request Social History Tobacco [...] file Legal Sex Male 2:37 PM MEDICAL RECEPTIONIST BILLER Gender Identity Not on file Sexual Orientation Not on file documented as of this encounter Miscellaneous Notes * Telephone Encounter - Mia Snyder MA - 12/23/2023 4:14 PM CST Note sent thru [employer] CAL RECEPTIONIST BILLER * Telephone Encounter - Joseline Beauchamp MA - 12/23/2023 2:56 PM CST Medical Records Request Request Type: Records Request Practice Will Complete What records are being requested: A note verifying patient was at the office today 12.23 for his employer Who will the records be sent to (if being sent to another doctor, list the doctor's name and specialty)? Patient through [employer] Date Needed: today if possible Delivery Method: [employer] Does message need to be routed? Yes-Action Needed CAL RECEPTIONIST BILLER documented in this encounter Plan of Treatment [...] on filedocumented in this encounter Care Teams Multiple Knife Edge Trimmer Operator Relationship Specialty Start Date End Date Clare Kasper MD PCP - General Family Medicine 07/27/22 documented as of this encounter
--- OUTSIDE RECORDS SUMMARY | 2024-11-07 16:32 | XMS_ITS | Encounter Summary ---
Author Organization [facility] Address [address] [place] [address] Phone Care Team Providers Care Ground Host/Hostess Name Role Phone Clare Kasper MD Primary Care Pro vider Reason for Visit * Reason Comments Skin Exam Encounter Details Date Type Department Care Team (Late st Contact Info) Description 04/12/2024 1:45 PM CDT Office Visit [facility] [address] [facility] [address] [place] [phone] Thao Morales MD PhD [address] [address] Allergic contact dermatitis due to [...] on file 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
--- OUTSIDE RECORDS SUMMARY | 2024-11-07 16:32 | XMS_ITS | Encounter Summary ---
Author Organization [facility] Address [address] [facility] [address] [place] [address] Care Team Providers Care Crop Grain Or Livestock Farmer Name Role Phone Clare Kasper MD Primary Care Pro vider Reason for Visit * Reason Comments Follow-up Encounter Details Date Type Department Care Team (Latest Contact Info) Description 01/24/2023 2:15 PM CDT Office Visit [facility] Primary Care [address] [facility] [address] [place] [address] Clare Kasper MD [address] [place] [address] Primary insomnia (Primary Dx); Primary hypertension; [...] on file 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 Gender Identity Not on file Sexual [...] abuse Assessment & Plan: Declines medications to chimney builder helper in avoiding alcohol (naltrexone, antabuse, etc) [...] Problem(s): Alcohol use disorder Declines medications to chimney builder helper in avoiding alcohol (naltrexone, antabuse, etc) [...] * Hemoglobin A1c (01/24/2023 3:41 PM CDT) [facility] Hgb A1C 5.5 4.0 - 5.6 % CRISTY GLOVER Comment:Testing performed by : [facility], [address] [place] [address], [place]., [address] Estimated Average Glucose 111 mg/dL CRISTY GLOVER Comment: The ADA recommends reporting an estimated Average Glucose (eAG) with all Hemoglobin A1c results using the equation derived from a study of 507 normal and diabetic adults. ??Minority populations were underrepresented and children were not included. ?? (Diabetes Care 31:9484-6096, 2008). ??The eAG is not equivalent to a fasting glucose. Testing performed by: [facility], [address] [place] [address]., [address] Blood 01/24/2023 3:41 PM CDT 01/24/2023 3:57 PM CDT us Clare Kasper MD LAB BLOOD ORDERAB LES Final Result CRISTY [address] [facility] Department [place] [address] * Lipid panel (01/24/2023 3:41 [...] last revised on 2018. Testing performed by: [facility], [address] [place] [address]., [address] Triglycerides 77 <=149 mg/dL CRISTY GLOVER Comment: [...] last revised on 2018. Testing performed by: [address] [address] HDL 46 >=40 mg/dL CRISTY GLOVER Comment: [...] last revised on 2018. Testing performed by: [address] [address] LDL, calculated 76 <=129 mg/dL CRISTY GLOVER [...] last revised on 2018. Testing performed by: [address] [address] Non-HDL Cholesterol 91 mg/dL CRISTY GLOVER Comment: [...] last revised on 2018. Testing performed by: [address] [address] Chol/HDL ratio 3 CRISTY GLOVER Comment:Testing performed by : [address] [address] Blood 01/24/2023 3:41 PM CDT 01/24/2023 3:57 PM CDT us Clare Kasper MD LAB BLOOD ORDERAB LES Final Result CRISTY GLOVER [address] [facility] Department [place] [address] * Comprehensive metabolic panel (01/24/2023 3:41 PM CDT) [facility] Sodium 140 135 - 145 mmol/L CRISTY GLOVER Comment:Testing performed by : [address] [address] Potassium, pl 4.0 3.3 - 4.9 mmol/L CRISTY Comment:Testing performed by : [address] [address] Chloride 104 97 - 110 mmol/L CRISTY Comment:Testing performed by : [address], [place]., [address] CO2 22 22 - 32 mmol/L CRISTY Comment:Testing performed by : [address], [place]., [address] Anion gap 14 2 - 15 mmol/L [facility] Comment:Testing performed by : [address], [place]., [address] BUN 10 8 - 25 mg/dL CRISTY Comment:Testing performed by : [address], [place]., [address] Creatinine 0.80 0.80 - 1.30 mg/dL CRISTY Comment:Testing performed by : [address] [address] Glucose 95 70 - 199 mg/dL [facility] Comment: Interpretive Data Fasting glucose >/= [...] was last revised 2022. Testing performed by: [address] [address] Calcium 9.5 8.5 - 10.3 mg/dL CRISTY Comment:Testing performed by : [address] [address] Bilirubin, total 0.4 0.1 - 1.2 mg/dL [facility]NOTE 3] Comment:Testing performed by : [address] [address] Protein, pl 7.5 6.5 - 8.5 g/dL CRISTY Comment:Testing performed by : [address] [address] Albumin 4.5 3.5 - 5.0 g/dL CRISTY Comment:Testing performed by : [address] [address] Alk phos 77 40 - 130 Units/L CRISTY Comment:Testing performed by : [address] [address] ALT 12 7 - 55 Units/L CRISTY Comment:Testing performed by : [address] [address] AST 26 10 - 50 Units/L CRISTY Comment:Testing performed by : [address] [address] Blood 01/24/2023 3:41 PM CDT 01/24/2023 3:57 PM CDT Clare Kasper MD LAB BLOOD ORDERAB LES Final Result [facility] [address] [facility] Department of Laboratories [place], [place] [id number] documented in this encounter Visit Diagnoses Diagnosis [...] documented as of this encounter Care Teams Crop Grain Or Livestock Farmer Relationship Specialty Start Date End Date Clare Kasper MD PCP - General Family Medicine 07/27/22 documented as of this encounter
--- OUTSIDE RECORDS SUMMARY | 2024-11-07 16:32 | XMS_ITS | Encounter Summary ---
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 Urine pH is affected by diet, medications, systemic acid-base disturbances, and renal tubular function. ??pH may affect urinary stone formation. ??For example, urine pH below 6.0 may help reduce the tendency for calcium phosphate stones and pH greater than 6.0 may reduce the tendency for uric acid stone formation. Source: [facility] Current Interpretive Data was last revised on 2017 Testing performed by: [address] [address] Protein, ur ql Negative Negative CRISTY Comment:Testing performed by : [address] [address] Glucose, ur ql Negative Negative CRISTY Comment:Testing performed by : [address] [address] Ketones, ur Negative Negative CRISTY Comment:Testing performed by : [address] [address] Bilirubin, ur Negative Negative CRISTY Comment:Testing performed by : [address] [address] Blood, ur 2+(A) Negative CRISTY GLOVER Comment:Testing performed by : [address] [address] Urobilinogen, ur <2.0 <2.0 mg/dL CRISTY GLOVER Comment:Testing performed by : [address] [address] Nitrite, ur Negative Negative CRISTY Comment:Testing performed by : [address], [place]., [address] Leukocyte esterase, ur Negative Negative CRISTY Comment:Testing performed by : [address] [address] UA reflex comment Reflex to microscopic UA will be performed. CRISTY Comment:Testing performed by : [address] [address] Urine, clean voided 03/30/2024 11:10 AM CDT 03/30/2024 11:39 AM CDT us Clare Kasper MD LAB MICROBIOLOGY - GENERAL ORDERABLES Final Result CRISTY [address] [facility] Department [place] [address] * (ABNORMAL) Comprehensive metabolic panel (03/30/2024 11:09 AM CDT) Sodium 139 135 - 145 mmol/L Comment:Testing performed by : [address] [address] Potassium, pl 4.5 3.3 - 4.9 mmol/L CRISTY Comment:Testing performed by : [address] [address] Chloride 102 97 - 110 mmol/L CRISTY Comment:Testing performed by : [address] [address] CO2 24 22 - 32 mmol/L CRISTY Comment:Testing performed by : [address] [address] Anion gap 13 2 - 15 mmol/L CRISTY Comment:Testing performed by : [address] [address] BUN 12 6 - 25 mg/dL CRISTY Comment:Testing performed by : [address] [address] Creatinine 1.00 0.80 - 1.30 mg/dL CRISTY Comment:Testing performed by : [address] [address] Glucose 144 70 - 199 mg/dL CRISTY [...] was last revised 2022. Testing performed by: [address] [address] Calcium 9.7 8.5 - 10.3 mg/dL CRISTY Comment:Testing performed by : [address] [address] Bilirubin, total 0.3 0.1 - 1.2 mg/dL CRISTY Comment:Testing performed by : [address] [address] Protein, pl 7.4 6.5 - 8.5 g/dL CRISTY Comment:Testing performed by : [address] [address] Albumin 4.4 3.5 - 5.0 g/dL CRISTY Comment:Testing performed by : [address] [address] Alk phos 69 40 - 130 Units/L CRISTY Comment:Testing performed by : [address] [address] ALT <5(L) 7 - 55 Units/L CRISTY Comment:Testing performed by : [address] [address] AST 20 10 - 50 Units/L CRISTY Comment:Testing performed by : [address] [address] Blood 03/30/2024 11:0 9 AM CDT 03/30/2024 1:29 PM CDT Clare Kasper MD LAB BLOOD ORDERAB LES Final Result [facility] [address] [facility] Department [place] [address] documented in this encounter Visit Diagnoses Diagnosis Hematuria, unspecified type- Primary documented in this encounter Care Teams Wash Worker Relationship Specialty Start Date End Date Clare Kasper MD PCP - General Family Medicine 07/27/22 documented as of this encounter
--- OUTSIDE RECORDS SUMMARY | 2024-11-07 16:32 | XMS_ITS | Encounter Summary ---
Author Organization [facility] Address [address] [facility] [address] [place] [address] Care Team Providers Care Outbound Supervisor Name Role Phone Clare Kasper MD Primary Care Pro vider Reason for Referral * Procedure (Routine) - Closed Specialty Diagnoses / Procedures Referred By Litzy [email or web address] Referred To Contact Diagnoses Abscess Procedures Incision and Drainage Clare Kasper MD Phone: tel: fax: [facility] Referral ID Status Reason Start Date Expiration Date Visits Re quested Visits Authorized [id number] Closed 02/04/2023 03/05/2024 1 1 Reason for Visit * Reason Comments Allergic Reaction Allergic reaction so ap- L side of neck Encounter Details Date Type Department Care Team (Late st Contact Info) Description 02/04/2023 8:45 AM CDT Office Visit [facility] Primary Care [address] 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 Gender Identity Not on file Sexual [...] Procedure Name Priority Date/Time Associated Diagnosis Comments WI INCISION & DRAINAGE ABSCESS SIMPLE/SINGLE Routine 02/04/2023 8:45 AM CDT Abscess documented in this encounter Results * WI INCISION & DRAINAGE ABSCESS SIMPLE/SINGLE (02/04/2023 8:45 [...] with no immediate complications Wound care discussed Claer Kasper MD IN CLINIC/BEDSIDE ORDERABLES Final Result documented in this encounter Visit Diagnoses Diagnosis Abscess- Primary Cellulitis and abscess of unspecified site documented in this encounter Care Teams Outbound Supervisor Relationship Specialty Start Date End Date Clare Kasper MD PCP - General Family Medicine 07/27/22 documented as of this encounter
--- OUTSIDE RECORDS SUMMARY | 2024-11-07 16:32 | XMS_ITS | Encounter Summary ---
Author Organization [facility] Healthcare Address [address] [place] [address] Care Team Providers Care Medical Physicist Name Role Phone Clare Kasper MD Primary Care Pro vider Reason for Visit * Reason Comments Drug / Alcohol Assessment Encounter Details Date Type Department Care Team ([facility] Contact Info) Description 11/13/2022 10:43 PM ANIMAL DOCTOR - 11/14/2022 2:51 AM ANIMAL DOCTOR Emergency [facility] Emergency Department [address] [place] [address] Jaylene Noonan MD [address] [place] [address] Alcohol cessation counseling (Primary Dx); [...] file 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 Gender Identity Not on file Sexual Orientation Not on file documented as of this encounter Last Filed Vital Signs Vital Sign Reading Time Taken Comments Blood Pressure 135/79 11/14/2022 12:30 AM ANIMAL DOCTOR Pulse 52 11/14/2022 2:40 AM ANIMAL DOCTOR Temperature 36.1 ??C (97 ??F) 11/13/2022 10:29 PM ANIMAL DOCTOR Respiratory Rate 16 11/13/2022 10:29 PM ANIMAL DOCTOR Oxygen Saturation 97% 11/14/2022 2:40 AM ANIMAL DOCTOR Inhaled Oxygen Concentration - - Weight 50.4 kg (111 lb 1.8 oz) 11/13/2022 10:29 PM ANIMAL DOCTOR Height 170.2 cm (5' 7.01 ) 11/13/2022 10:[address] Body Mass Index 17.4 11/13/2022 10:29 PM ANIMAL DOCTOR documented in this encounter Discharge Instructions * Discharge Instructions* Timmy Raphael MD - 11/14/2022 2:09 AM ANIMAL DOCTOR You have been evaluated in the Emergency [...] resources that was given to by the web content & social media manager, and reach out first thing Tuesday morning: [facility] ([facility]) Address: [address], [place] [address] Hours: Opens 8?AM Mon [facility] Address: [address], [place] [address] Hours: Opens 8?AM Mon [facility] Address: [address], [place] [address] Hours: Open 24 hours [facility] Address: [address], [place] [address] Hours: Open 24 hours Please follow up with your primary care physician. Return to the Emergency Department if you experience shaking, seizures, palpitations, inability to keep down fluids, worsening or uncontrolled pain, confusion, or for any other concerning symptoms. AL DOCTOR * Attachments The following attachments cannot be sent through Care Everywhere. * Abuse of Alcohol (AfterCare(R) Instructions(ER/ED)) (Australian) documented in this encounter Medications at Time [...] reviewed consult. EDSW notes pt lives in [facility], EDSW met with pt at bedside and provide alcohol abuse resources. Pt was appreciative, no further assistance is needed at this time. [facility] ([facility]) Address: [address] [place] [address] Hours: Opens 8?AM Mon [facility] Address: [address] [place] [address] Hours: Opens 8?AM Mon [facility] Address: [address] [place] [address] Hours: Open 24 hours [facility] Address: [address] [place] [address] Hours: Open 24 hours Risa Dave LMSW 11/14/22 AL DOCTOR documented in this encounter ED Notes * [...] (CMS/HCC) (HCC) Jaylene Whalen MD 11/14/22 0714 AL DOCTOR * Tony Pablo RN - 11/13/2022 10:32 [...] in triage and ans wering questions appropriately,. AL DOCTOR documented in this encounter Plan of Treatment [...] For 1 dose Given 11/14/2022 2:44 AM ANIMAL DOCTOR 10 mg documented in this encounter Discontinued Medications Medication Sig Discontinue Reason Start Date End Da te chlordiazePOXIDE (LIBRIUM) 25 mg capsule TAKE 1 CAPSULE BY MOUTH EVERY 6 HOURS NEEDED FOR ALCOHOL WITHDRAWALS 07/10/2022 11/14/2022 documented as of this encounter Active and Recently Administered Medications Times are shown in ANIMAL DOCTOR. Scheduled Medication Order 11/12/2022 11/13/2022 11/14/2022 chlordiazePOXIDE [...] 11/13/2022 documented in this encounter Care Teams Medical Physicist Relationship Specialty Start Date End Date Clare Kasper MD PCP - General Family Medicine 07/27/22 documented as of this encounter
--- OUTSIDE RECORDS SUMMARY | 2024-11-07 16:32 | XMS_ITS | Encounter Summary ---
Author Organization [facility] Healthcare Address [address] [place] [address] Care Team Providers Care Apparel Rental Clerk Name Role Phone Clare Kasper MD Primary Care Pro vider Reason for Visit * Reason Onset Date Comments Medical Question/Miscellaneous 11/02/2023 Encounter Details Date Type Department Care Team ([facility] Contact Info) Description 11/02/2023 Telephone [facility] Primary Care at [address] [address] Clare Kasper MD [address] [place] [address] Medical Question/Miscellaneous Social History Tobacco Use [...] file 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 Nothing further at this time ING UNIT OPERATOR POWDER CHARGING * Telephone Encounter - Clare Kasper MD - 11/03/2023 9:26 AM CST Antibiotics Sent to pharmacy. [facility] ING UNIT OPERATOR POWDER CHARGING * Telephone Encounter - Joseline Beauchamp MA - 11/02/2023 1:13 PM CST Call Back Caller???s Concern: Patient called for the status of message. He was told it is pending review fromthe Doctor. Does message need to be routed? No ING UNIT OPERATOR POWDER CHARGING * Telephone Encounter - Magdalena Luevano - [...] also.Please call patient to advise. Pharmacy [facility] in chart. Please see screen shot from visit Does message need to be routed? Yes-Action Needed ING UNIT OPERATOR POWDER CHARGING documented in this encounter Plan of Treatment [...] on filedocumented in this encounter Care Teams Apparel Rental Clerk Relationship Specialty Start Date End Date Clare Kasper MD PCP - General Family Medicine 07/27/22 documented as of this encounter
--- OUTSIDE RECORDS SUMMARY | 2024-11-07 16:32 | XMS_ITS | Encounter Summary ---
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
--- OUTSIDE RECORDS SUMMARY | 2024-11-07 16:32 | XMS_ITS | Encounter Summary ---
Author Organization [facility] Healthcare Address [address] [place] [address] Care Team Providers Care Auto Air Conditioning Mechanic Name Role Phone Clare Kasper MD Primary Care Pro vider Reason for Referral * Procedure (Routine) - Pending Review Specialty Diagnoses / Procedures Referred By Litzy mccracken Referred To Contact Diagnoses Abscess of face Procedures Incision and Drainage Lauren Xiong NP Phone: tel: fax: [facility] Referral ID Status Reason Start Date Expiration Date V isits Requested Visits Authorized [id number] Pending Review 12/08/2023 01/06/2025 1 1 L MOVER Reason for Visit * Reason Comments Stye Pt states he has a s suze or abscess on right side of face near right eye. Pt states may be a reaction to different soap. Pt states area near eye is painful. Ongoing x1week Encounter Details Date Type Department Care Team (Late st Contact Info) Description 12/08/2023 6:00 PM METAL MOVER Office Visit [facility] Convenient Care at [address] [phone] Lauren Xiong, MICHELLE [address] [facility] [place] [address] Abscess of face (Primary Dx) Social History [...] on file Legal Sex Male 2:37 PM METAL MOVER Gender Identity Not on file Sexual Orientation Not on file documented as of this encounter Last Filed Vital Signs Vital Sign Reading Time Taken Comments Blood Pressure 130/68 12/08/2023 6:09 PM METAL MOVER Pulse 79 12/08/2023 6:09 PM METAL MOVER Temperature 37.1 ??C (98.8 ??F) 12/08/2023 6:09 PM CS T Respiratory Rate 18 12/08/2023 6:09 PM METAL MOVER Oxygen Saturation 99% 12/08/2023 6:09 PM METAL MOVER Inhaled Oxygen Concentration - - Weight 53.5 kg (118 lb) 12/08/2023 6:09 PM METAL MOVER Height 170.2 cm (5' 7 ) 12/08/2023 6:09 PM METAL MOVER Body Mass Index 18.48 12/08/2023 6:09 PM METAL MOVER documented in this encounter Ordered Prescriptions Prescription [...] the right side of face on the anabaptism area next to the eye. 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 The patient's questions were answered and he agrees to the discussed treatment and plan. Lauren Xiong NP L MOVER documented in this encounter Plan of Treatment [...] UT INCISION & DRAINAGE ABSCESS SIMPLE/SINGLE Routine 12/08/2023 6:00 PM METAL MOVER Abscess of face documented in this encounter Results * (ABNORMAL) Aerobic culture and gram stain Abscess Face (12/08/2023 6:30 PM METAL MOVER) Direct Specimen Exam Stain: Few polymorphonuclear leukocytes seen. No organisms seen. [facility] Report Final Report: Few Staphylococcus lugdunensis Rare Mixed microorganisms. (.) [facility] Organism STAPHYLOCOCCUS LUGDUNENSIS [facility] Organism MIXED MICROORGANISMS. [facility] Abscess (Face) 12/08/2023 6: 30 PM METAL MOVER 12/08/2023 9:20 PM METAL MOVER [facility] - 12/14/2023 2:30 PM METAL MOVER Specimen received on an ESwab. Testing performed by [facility] ([phone]) Specimens submitted from normally sterile body sites [...] JORDYN SANDERS Final Result [facility] Department [place] [address] * UT INCISION & DRAINAGE ABSCESS SIMPLE/SINGLE (12/08/2023 6:00 PM METAL MOVER) Narrative Lauren Xiong NP - 12/08/2023 6:00 PM METAL MOVER Lauren Xiong NP ? 12/08/2023 ??6:33 PM [...] 12/15/2023 added in this encounter Care Teams Auto Air Conditioning Mechanic Relationship Specialty Start Date End Date Clare Kasper MD PCP - General Family Medicine 07/27/22 documented as of this encounter
--- OUTSIDE RECORDS SUMMARY | 2024-11-07 16:32 | XMS_ITS | Encounter Summary ---
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 Male 2:37 PM PRODUCE CLERK Gender Identity Not on file Sexual Orientation Not on file documented as of this encounter Last Filed Vital Signs Vital Sign Reading Time Taken Comments Blood Pressure 130/78 12/23/2023 2:33 PM PRODUCE CLERK Pulse 81 12/23/2023 2:33 PM PRODUCE CLERK Temperature 36.7 ??C (98.1 ??F) 12/23/2023 2:33 PM CS T Respiratory Rate 20 12/23/2023 2:33 PM PRODUCE CLERK Oxygen Saturation 97% 12/23/2023 2:33 PM PRODUCE CLERK Inhaled Oxygen Concentration - - Weight 52.1 kg (114 lb 12.8 oz) 12/23/2023 2:33 PM PRODUCE CLERK Height 170.2 cm (5' 7 ) 12/23/2023 2:33 PM PRODUCE CLERK Body Mass Index 17.98 12/23/2023 2:33 PM PRODUCE CLERK documented in this encounter Progress Notes * [...] Right corner of eye HPI Seen at [facility] care 12/08 and had I&D and [...] approximately 5mm firm nodule on medial R judaism without erythema, fluctuance or drainage, warm and dry MSK/Neuro: symmetric limb movement Psych: alert and oriented to person/place/time, appropriate judgment and insight Clare Kasper MD UCE CLERK documented in this encounter Plan of Treatment [...] face documented in this encounter Care Teams Software Manager Relationship Specialty Start Date End Date Clare Kasper MD PCP - General Family Medicine 07/27/22 documented as of this encounter
--- OUTSIDE RECORDS SUMMARY | 2024-11-07 16:32 | XMS_ITS | Encounter Summary ---
Author Organization 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 Gender Identity Not on file Sexual [...] - 300 Units/L Comment:Testing performed by : [address] [address] Blood 03/30/2024 11:1 0 AM CDT 03/30/2024 2:08 PM CDT Clare Kasper MD LAB BLOOD ORDERAB LES Final Result Performing Organization Address [facility] Co de Phone Number [facility] [address] [facility] Department [place] [address] * Urinalysis, microscopic only (03/30/2024 11:10 AM CDT) WBC, ur 0-5 0 - 5 /HPF Comment:Testing performed by : [address] [address] RBC, ur 0-2 0 - 2 /HPF [facility] Comment:Testing performed by : [address] [address] Epithelial cells, squamous, ur 1-5 0 - 5 /HPF [facility] Comment:Testing performed by : [address] [address] Culture Reflex Comment Reflex conditions for urine culture (WBC >10) not met. [facility] Comment:Testing performed by : [address] [address] Urine, clean voided 03/30/2024 11:10 AM CDT 03/30/2024 11:39 AM CDT Clare Kasper MD LAB URINE ORDERAB LES Final Result Performing Organization Address [facility]/State/ZIP Co de Phone Number [facility] [address] [facility] Department [place] [address] * (ABNORMAL) Urinalysis reflex to microscopic and culture Urine, clean voided (03/30/2024 11:10 AM CDT) Color, ur Yellow Yellow Comment:Testing performed by : [address] [address] Clarity, ur Clear Clear [facility] Comment:Testing performed by : [address] [address] Specific gravity, ur 1.018 1.003 - 1.030 [facility] Comment:Testing performed by : [address] [address] pH, urine 5.5 [facility] Comment: Interpretive Data ? Urine pH is affected by diet, medications, systemic acid-base disturbances, and renal tubular function. ??pH may affect urinary stone formation. ??For example, urine pH below 6.0 may help reduce the tendency for calcium phosphate stones and pH greater than 6.0 may reduce the tendency for uric acid stone formation. Source: [email or web address] [email or web address] Current Interpretive Data was last revised on 2017 Testing performed by: [address] [address] Protein, ur ql Negative Negative [facility] Comment:Testing performed by : [address] [address] Glucose, ur ql Negative Negative [facility] Comment:Testing performed by : [address] [address] Ketones, ur Negative Negative [facility] Comment:Testing performed by : [address] [address] Bilirubin, ur Negative Negative [facility] Comment:Testing performed by : [address] [address] Blood, ur 2+(A) Negative [facility] Comment:Testing performed by : [address] [address] Urobilinogen, ur <2.0 <2.0 mg/dL [facility] [place] Comment:Testing performed by : [address] [place] [address] Nitrite, ur Negative Negative [facility] Comment:Testing performed by : [address] [address] Leukocyte esterase, ur Negative Negative [facility] Comment:Testing performed by : [facility], [address] [place] [address]., [address] UA reflex comment Reflex to microscopic UA will be performed. [facility] Comment:Testing performed by : [address] [address] Urine, clean voided 03/30/2024 11:10 AM CDT 03/30/2024 11:39 AM CDT us Clare Kasper MD LAB MICROBIOLOGY - GENERAL ORDERABLES Final Result Performing Organization Address City/State/[facility] Co de Phone Number [facility] [address] [facility] Department [place] [address] * eGFR (03/30/2024 11:09 AM [...] was last reviewed 2021. Testing performed by: [address] [address] Blood 03/30/2024 11:0 9 AM CDT 03/30/2024 1:29 PM CDT us Clare Kasper MD LAB BLOOD ORDERAB LES Final Result [facility] [address] [facility] Department [place] [address] * (ABNORMAL) Comprehensive metabolic panel (03/30/2024 11:09 AM CDT) Sodium 139 135 - 145 mmol/L Comment:Testing performed by : [address] [address] Potassium, pl 4.5 3.3 - 4.9 mmol/L [facility] Comment:Testing performed by : [address] [address] Chloride 102 97 - 110 mmol/L [facility] Comment:Testing performed by : [address] [address] CO2 24 22 - 32 mmol/L [facility] Comment:Testing performed by : [address] [address] Anion gap 13 2 - 15 mmol/L [facility] Comment:Testing performed by : [address] [address] BUN 12 6 - 25 mg/dL [facility] Comment:Testing performed by : [address] [address] Creatinine 1.00 0.80 - 1.30 mg/dL [facility] Comment:Testing performed by : [address] [address] Glucose 144 70 - 199 mg/dL [facility] [...] was last revised 2022. Testing performed by: [address] [address] Calcium 9.7 8.5 - 10.3 mg/dL [facility] Comment:Testing performed by : [address] [address] Bilirubin, total 0.3 0.1 - 1.2 mg/dL [facility] Comment:Testing performed by : [address] [address] Protein, pl 7.4 6.5 - 8.5 g/dL [facility] Comment:Testing performed by : [address] [address] Albumin 4.4 3.5 - 5.0 g/dL [facility] Comment:Testing performed by : [address] [address] Alk phos 69 40 - 130 Units/L [facility] Comment:Testing performed by : [address] [address] ALT <5(L) 7 - 55 Units/L [facility] Comment:Testing performed by : [address] [address] AST 20 10 - 50 Units/L [facility] Comment:Testing performed by : [address] [address] Blood 03/30/2024 11:0 9 AM CDT 03/30/2024 1:29 PM CDT us Clare Kasper MD LAB BLOOD ORDERAB LES Final Result [facility] [address] [facility] Department [place] [address] documented in this encounter Visit Diagnoses Diagnosis Hematuria, unspecified type documented in this encounter Care Teams Apple Press Operator Relationship Specialty Start Date End Date Clare Kasper MD PCP - General Family Medicine 07/27/22 documented as of this encounter
--- OUTSIDE RECORDS SUMMARY | 2024-11-07 16:32 | XMS_ITS | Encounter Summary ---
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 Gender Identity Not on file [...] 10 days Protocols used: Sinus Pain or [id number]-AR LE MACHINE OPERATOR * Telephone Encounter - Tova Wagner RN - 10/31/2024 1:12 PM CST Regarding: Sinus pressure in eyes drainage ----- Message from Aniya Granda sent at 10/31/2024 1:10 PM NIPPLE MACHINE OPERATOR ----- Chief concern: Sinus pressure in eyes drainage Duration: 2 weeks Callback #: [phone] Additional Information: Pt saw Dr 2 weeks ago and was advised if he does not get better to call back LE MACHINE OPERATOR documented in this encounter Plan of [...] on filedocumented in this encounter Care Teams Gm Mobile Relationship Specialty Start Date End Date Clare Kasper MD PCP - General Family Medicine 07/27/22 documented as of this encounter
--- OUTSIDE RECORDS SUMMARY | 2024-11-07 16:32 | XMS_ITS | Encounter Summary ---
Author Organization [facility] Address [address] [place] [address] Care Team Providers Care Java Consultant Name Role Phone Unavailable Primary Care Provider Unavailabl e Encounter Details Date Type Department Care Team (Late st Contact Info) Description 01/12/2022 Lab Requisition [facility] Community Testing [facility] [address] [place] [address] Beny Osborn MD [address] [place] [address] [place] [address] Social History Tobacco Use Types Packs/Day Years Used Date Smoking Tobacco: Never Assessed Sex and Gender Information Value Date Recorded Sex Assigned at Not on file 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
--- OUTSIDE RECORDS SUMMARY | 2024-11-07 16:32 | XMS_ITS | Encounter Summary ---
Author Organization [facility] Healthcare Address [address] [place] [address] Care Team Providers Care Accounting/Finance Tutor Name Role Phone Clare Kasper MD Primary Care Pro vider Reason for Referral * Cardiology (Routine) - Closed Specialty Diagnoses / Procedures Referred By Litzy mccracken Referred To Contact Diagnoses Palpitations Procedures ECG 12 lead Clare Kasper MD [address] [place] [address] Phone: tel: fax: [address] [phone] Referral ID Status Reason Start Date Expiration Date Visits Re quested Visits Authorized [id number] Closed 10/25/2023 11/23/2024 1 1 ECT MANAGER Reason for Visit * Cardiology (Routine) - Closed Specialty Diagnoses / Procedures Referred By Litzy mccracken Referred To Contact Diagnoses Palpitations Procedures ECG 12 lead Clare Kasper MD [address] [place] [address] Phone: tel: fax: [address] [phone] Referral ID Status Reason Start Date Expiration Date Visits Re quested Visits Authorized [id number] Closed 10/25/2023 11/23/2024 1 1 Encounter Details Date Type Department Care Team (Latest Contact Info) Description 10/25/2023 3:41 PM PROJECT MANAGER - 10/25/2023 11:59 PM PROJECT MANAGER Hospital Encounter [facility] Cardiac Testing [address] [place] [address] Palpitations Discharge Disposition: Discharge to home or [...] file 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 Gender Identity Not on file [...] Comments ECG 12-LEAD Routine 10/25/2023 3:52 PM PROJECT MANAGER Palpitations documented in this encounter Results * ECG 12 lead (10/25/2023 3:52 PM PROJECT MANAGER) Ventricular Rate EKG/Min 69 BPM [facility] Atrial Rate 69 BPM [facility] DC-Interval (MSEC) 114 ms [facility] QRS-Interval (MSEC) 72 ms [facility] QT-Interval (MSEC) 372 ms [facility] QTc 398 ms [facility] P Hope 70 degrees [facility] R Hope -13 degrees [facility] T Hope 37 degrees [facility] Diagnosis Normal sinus rhythm ST-changes When compared with ECG of 12-NOV-2004 00:08, ST-changes are now Confirmed by SULTAN HALL M.D. ([id number]) on 10/25/2023 6:00:40 PM [facility] 10/25/2023 3:52 PM PROJECT MANAGER 10/25/2023 6:00 PM PROJECT MANAGER us Clare Kasper MD ECG ORDERABLES F inal Result [facility] documented in this encounter Visit Diagnoses Diagnosis Palpitations documented in this encounter Additional Health Concerns Infection Onset Date Last Indicated Resolved Time COVID: Suspected 10/25/2023 10/25/2023 10/25/2023 4:54 PM PROJECT MANAGER documented as of this encounter Care Teams Accounting/Finance Tutor Relationship Specialty Start Date End Date Clare Kasper MD PCP - General Family Medicine 07/27/22 documented as of this encounter
--- OUTSIDE RECORDS SUMMARY | 2024-11-07 16:32 | XMS_ITS | Encounter Summary ---
Author Organization [facility] Healthcare Address [address] [place] [address] Care Team Providers Care Resp Therapist Name Role Phone Clare Kasper MD Primary Care Pro vider Reason for Visit * Reason Comments Follow-up Urinary Frequency X1 week Shoulder Pain R shoulder pain Encounter Details Date Type Department Care Team (Latest Contact Info) Description 03/27/2024 4:30 PM CDT Office Visit [facility] Medical Group Primary Care at [address] [phone] Clare Kasper MD [address] [place] [id number] Urinary frequency (Primary Dx); Hematuria, unspecified [...] on file 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 ?? 2017 [employer] Information is for End User's use only and may not be sold, redistributed or otherwise used for commercial purposes. All illustrations and images included in CareNotes?? are the copyrighted property of [employer] or [place]. The above information is an biological aide only. It is not intended as medical advice for individual conditions or treatments. Talk to your doctor, nurse or pharmacist before following any medical regimen to see if it is safe and effective for you. * Attachments The following attachments cannot be sent through Care Everywhere. * Neck Exercises (Workers Compensation Administrator) (Trinidadian) documented in this encounter Progress Notes * [...] strength on abduction, flexion, internal/external rotation and sod stripper, sensation intact throughout, negative neer's/zavala, apprehension, liftoff [...] (CK), total (03/30/2024 11:10 AM CDT) Pathologist [facility] CK 167 40 - 300 Units/L Comment:Testing performed by : [facility], [address] [place] [address]., [id number] Blood 03/30/2024 11:1 0 AM CDT 03/30/2024 2:08 PM CDT Clare Kasper MD LAB BLOOD ORDERAB LES Final Result Performing Organization Address [facility] Co de Phone Number [place] [phone] [facility] [place] [address] * HIV 1/2 Antibody plus p24 Antigen Blood (03/27/2024 5:41 PM CDT) [facility] HIV 1/2 ab + p24 ag [...] GENERAL ORDERABLES Final Result Performing Organization Address [facility] Co de Phone Number [facility] [address] [facility] [place] [address] * Hepatitis panel, acute Blood (03/27/2024 5:41 PM CDT) Hep A IgM Nonreactive Nonreactive Comment: Interpretive Data: If Hep A IgM Ab is reported as Equivocal, a new sample should be drawn in two weeks for testing. Current interpretive data was last revised on 20. Hep B core IgM Nonreactive Nonreactive [facility] Comment: Interpretive Data If HepB Core IgM [...] MICROBIOLOGY - GENERAL ORDERABLES Final Result [facility] [address] [facility] [place], [place] [id number] * N. gonorrhoeae/C. trachomatis Amplification Urine (03/27/2024 5:41 PM CDT) C. trachomatis Not Detected [facility] Comment:Testing performed by : [facility], [address] [facility], [place]., [address] N. gonorrhoeae Not Detected CRISTY Comment: Interpretive Data This assay detects Chlamydia trachomatis and Neisseria gonorrhoeae by nucleic acid amplification testing (NAAT). This assay has been cleared by the [place] Food and Drug administration. The performance characteristics of this test have been verified by the [facility] Molecular Infectious Disease laboratory. The performance characteristics of this test have not been evaluated in individuals less than 14 years of age. Current Interpretive Data was last revised on 2023. Testing performed by: [facility], [address] [place] [address]., [id number] Urine (None) 03/27/2024 5:41 PM CDT 03/27/2024 5:41 PM CDT Clare Kasper MD LAB MICROBIOLOGY - GENERAL ORDERABLES Final Result Performing Organization Address [facility] Co de Phone Number [address] [place] [address] BJ * RPR Blood (03/27/2024 5:41 PM CDT) RPR Nonreactive Nonreactive Comment:Testing performed by : [facility], [address] [place] [address]., [address] Blood 03/27/2024 5:41 PM CDT 03/27/2024 9:05 PM CDT Clare Kasper MD LAB MICROBIOLOGY - GENERAL ORDERABLES Final Result Performing Organization Address City/[facility] Co de Phone Number [address] [address] * Trichomonas vaginalis PCR Urine (03/27/2024 5:41 PM CDT) Trichomonas DNA Not Detected [facility] Comment: Interpretive Data This assay detects Trichomonas vaginalis by nucleic acid amplification testing (NAAT). This assay has been cleared by the [place] Food and Drug administration. The performance characteristics of this test have been verified by the [facility] Molecular Infectious Disease laboratory. The performance of this test has not been evaluated in individuals less than 18 years of age. ?? Current Interpretive Data was last revised on 2023. Testing performed by: [facility], [address] [facility], [place]., [address] Urine 03/27/2024 5:41 PM CDT 03/27/2024 5:41 PM CDT us Clare Kasper MD LAB MICROBIOLOGY - GENERAL ORDERABLES Final Result [facility] [address] [facility] [place] [address] [facility] * (ABNORMAL) CBC with auto differential (03/27/2024 5:41 PM CDT) WBC 7.3 3.8 - 9.9 K/cumm Comment:Testing performed by : [address] [address] Hgb 13.6 13.0 - 17.5 g/dL CRISTY Comment:Testing performed by : [address] [address] Hct 38.7(L) 38.9 - 50.3 % CRISTY Comment:Testing performed by : [address] [address] Plt 191 150 - 400 K/cumm CRISTY Comment:Testing performed by : [address] [address] MPV 9.2 9.1 - 12.3 fL CRISTY Comment:Testing performed by : [address] [address] RBC 4.24(L) 4.30 - 5.80 M/cumm CRISTY Comment:Testing performed by : [address] [address] MCV 91.3 81.3 - 96.4 fL CRISTY Comment:Testing performed by : [address] [address] MCH 32.1 27.1 - 33.3 pg CRI[facility]Y [place] Comment:Testing performed by : [address] [address] MCHC 35.1 32.3 - 35.7 g/dL C[facility]Y [place] Comment:Testing performed by : [address] [address] RDW CV 12.1 11.1 - 14.9 % CRI[facility]Y [place] Comment:Testing performed by : [address] [address] RDW SD 40.1 35.7 - 48.1 fL C[facility] [place] Comment:Testing performed by : [address] [address] NRBC abs 0.00 0.00 - 0.01 K/cumm C[facility]Y [place] Comment:Testing performed by : [address] [address] Blood 03/27/2024 5:41 PM CDT 03/27/2024 6:00 PM CDT us Clare Kasper MD LAB BLOOD ORDERAB LES Final Result [facility] [place] [address] * (ABNORMAL) Urinalysis reflex to microscopic and culture Urine, clean voided (03/27/2024 5:41 PM CDT) Color, ur Yellow Yellow Comment:Testing performed by : [address] [address] Clarity, ur Clear Clear CRI[facility]Y [place] Comment:Testing performed by : [address] [address] Specific gravity, ur 1.010 1.003 - 1.030 C[facility] [place] Comment:Testing performed by : [address] [address] pH, urine 5.5 CRISTY Comment: Interpretive Data [...] on 2017 Testing performed by: [facility], [address] [place] [address], [place]., [address] Protein, ur ql Negative Negative C[facility]Y [place] Comment:Testing performed by : [facility], [address] [place] [address], [place]., [address] Glucose, ur ql Negative Negative CRISTY Comment:Testing performed by : [facility], [address] [place] [address], [place]., [address] Ketones, ur Negative Negative CRISTY Comment:Testing performed by : [facility], [address] [place] [address], [place]., [address] Bilirubin, ur Negative Negative CRISTY Comment:Testing performed by : [address], [place]., [address] Blood, ur 1+(A) Negative CRISTY Comment:Testing performed by : [address], [place]., [address] Urobilinogen, ur <2.0 <2.0 mg/dL CRISTY Comment:Testing performed by : [address], [place]., [address] Nitrite, ur Negative Negative CRISTY Comment:Testing performed by : [address], [place]., [address] Leukocyte esterase, ur Negative Negative CRISTY Comment:Testing performed by : [address], [place]., [address] UA reflex comment Reflex to microscopic UA will be performed. CRISTY Comment:Testing performed by : [address], [place]., [address] Urine, clean voided 03/27/2024 5:41 PM CDT 03/27/2024 6:54 PM CDT us Clare Kasper MD LAB MICROBIOLOGY - GENERAL ORDERABLES Final Result [facility] [place] [address] [facility] [place] [address] documented in this encounter Visit [...] sleep documented in this encounter Care Teams Resp Therapist Relationship Specialty Start Date End Date Clare Kasper MD PCP - General Family Medicine 07/27/22 documented as of this encounter
--- OUTSIDE RECORDS SUMMARY | 2024-11-07 16:32 | XMS_ITS | Clinical Summary ---
Author Organization [facility] Address [address] [place] [address] Care Team Providers Care Strategic Partner Development Manager Name Role Phone Clare Kasper MD [...] needed Assessment & Plan (10/25/2023 2:41 PM MARKETING PROGRAMS MANAGER): Trazodone as needed Assessment & Plan [...] statin Assessment & Plan (10/25/2023 2:42 PM MARKETING PROGRAMS MANAGER): Continue statin Assessment & Plan (01/24/2023 [...] (06/18/20) Assessment & Plan (10/25/2023 2:15 PM MARKETING PROGRAMS MANAGER): Reviewed PMH & FH Phq reviewed [...] July Assessment & Plan (09/29/2018 5:39 PM MARKETING PROGRAMS MANAGER): Flu shot and referral for colonoscopy today Anemia 06/13/2018 Assessment & Plan (09/29/2018 5:27 PM MARKETING PROGRAMS MANAGER): Mild anemia with last Hb 12.9 (from 12/2016). Folate, B12, Iron panel normal. -CBC today GERD (gastroesophageal reflux disease) 5 Assessment & Plan (03/27/2024 5:05 PM CDT): Stable off medications Assessment & Plan (10/25/2023 2:36 PM MARKETING PROGRAMS MANAGER): Uncontrolled Restart omeprazole Assessment & Plan [...] amlodipine Assessment & Plan (10/25/2023 2:15 PM MARKETING PROGRAMS MANAGER): Blood pressure controlled continue 10mg amlodipine [...] hyperkalemia Assessment & Plan (12/08/2020 12:32 PM MARKETING PROGRAMS MANAGER): Blood pressure very well-controlled with amlodipine. [...] daily Assessment & Plan (09/29/2018 5:25 PM MARKETING PROGRAMS MANAGER): Poorly controlled hypertension 157/81 in clinic [...] cessation Assessment & Plan (10/25/2023 2:42 PM MARKETING PROGRAMS MANAGER): Encourage cessation, he is interested in starting wellbutrin Assessment & Plan (09/29/2018 5:29 PM MARKETING PROGRAMS MANAGER): Was given patches at our last visit however he feels like they make him itch. He continues to smoke 1/2PPD. -As he has other active issues going on today, namely ETOH cessation, we will defer further discussion to our next visit. Would consider pharmacologic therapy for him, chantix vs wellbutrin. 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 No indication [...] request) Assessment & Plan (09/29/2018 5:26 PM MARKETING PROGRAMS MANAGER): Vitamin D 18 on 05/2018 labs, will start 50,000 units vit D weekly today. Arthralgia of shoulder 11/13/201206/13 Encounters Date Type Department Care Team Description 10/31/2024 Nurse Triage [facility] Primary Care at [address] [phone] Clare Kasper MD 10/12/2024 1:45 PM MARKETING PROGRAMS MANAGER Office Visit [facility] Primary Care at [address] [phone] Clare Kasper MD Alcohol use disorder (Primary Dx); Acute non-recurrent maxillary sinusitis 10/11/2024 Telephone [facility] Primary Care at [address] [phone] Clare Kasper MD Medical Question/Miscellaneou s from [...] on file Legal Sex Male 2:37 PM MARKETING PROGRAMS MANAGER Gender Identity Not on file Sexual Orientation Not on file Obstetrics History Last Filed Vital Signs Vital Sign Reading Time Taken Comments Blood Pressure 137/88 10/12/2024 1:47 PM MARKETING PROGRAMS MANAGER Pulse 100 10/12/2024 1:47 PM MARKETING PROGRAMS MANAGER Temperature 36.8 ??C (98.2 ??F) 10/12/2024 1:47 PM CS T Respiratory Rate 18 10/12/2024 1:47 PM MARKETING PROGRAMS MANAGER Oxygen Saturation 99% 10/12/2024 1:47 PM MARKETING PROGRAMS MANAGER Inhaled Oxygen Concentration - - Weight 49.8 kg (109 lb 11.2 oz) 10/12/2024 1:47 PM MARKETING PROGRAMS MANAGER Height 170.2 cm (5' 7 ) 10/12/2024 1:47 PM MARKETING PROGRAMS MANAGER Body Mass Index 17.18 10/12/2024 1:47 PM MARKETING PROGRAMS MANAGER Plan of Treatment Health Maintenance Due [...] last revised on 2020. HepBsAg Nonreactive Nonreactive [facility] Blood 03/27/2024 5:41 PM CDT 03/27/2024 8:25 PM CDT Clare Kasper MD LAB MICROBIOLOGY - GENERAL ORDERABLES Final Result Performing Organization Address [facility] Co de Phone Number CRISTY [address] [facility] [place] [address] * PSA screen (07/27/2022 5:14 PM CDT) [...] data last revised 22. Testing performed by: [facility], [address] [place] [address]., [address] Blood 07/27/2022 5:14 PM CDT 07/27/2022 5:18 PM CDT Clare Kasper MD LAB BLOOD ORDERAB LES Final Result Performing Organization Address [facility] de Phone Number CRISTY [address] [facility] [place], [place] [id number] * COLONOSCOPY (06/24/2021 9:15 AM CDT) Anatomical [...] were verified by the physician,the nurse, the distribution lineman and the cardiac monitor technician in the procedure room. Respiratory Examination: [...] bowel preparation was evaluated using the BBPS (Furlong Bowel Preparation Scale)with scores of: Right Colon [...] On: 06/24/2021 9:15 AM Recognized by the [employer] for promoting quality in endoscopy Noemi Mccoy MD ENDOSCOPY PROCEDURES Final R esult from Last 3 Months or Most Recently Relevant to Health Maintenance Insurance [facility] Advance Directives For more information, please contact: [phone] * Full Code (Latest Code Status on File) Date Activated Date Inactivated Comments 06/24/2021 8:04 AM 06/24/2021 2:35 PM * Full Code Date Activated Date Inactivated Comments 05/14/2020 9:51 AM 05/14/2020 5:15 PM Care Teams Strategic Partner Development Manager Relationship Specialty Start Date End Date Clare Kasper MD PCP - General Family Medicine 07/27/22
--- OUTSIDE RECORDS SUMMARY | 2024-11-07 16:33 | XMS_ITS | Encounter Summary ---
Author Organization [facility] Address [address] [place] [address] Care Team Providers Care Community Living Instructor Name Role Phone Scar Medina MD Primary Care Pro vider Reason for Visit * Reason Comments New Patient Encounter Details Date Type Department Care Team (Latest Contact Info) Description 07/27/2022 4:00 PM CDT Office Visit [facility] Primary Care [address] [place] [address] Scar Medina MD [address] [place] [id number] Primary hypertension (Primary Dx); Hyperlipidemia, unspecified [...] on file 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 gonorrhoeae Not Detected Not Detected CRISTY Comment: Interpretive Data Testing performed by the [facility]. This assay detects Chlamydia trachomatis [...] last revised on 2019. Testing performed by: [facility], [address] [place] [address]., [id number] Urine (None) 07/27/2022 5:20 PM CDT 07/27/2022 6:27 PM CDT Scar Medina MD LAB MICROBIOLOGY - GENERAL ORDERABLES Final Result Performing Organization Address [facility] Co de Phone Number [facility] [address] [facility] Department [place] [address] * Vitamin D 25 hydroxy (07/27/2022 5:14 PM CDT) Vitamin D 25-OH 40.0 30.0 - 80.0 ng/mL [facility] Blood 07/27/2022 5:14 PM CDT 07/27/2022 6:42 PM CDT Scar Medina MD LAB BLOOD ORDERAB LES Final Result Performing Organization Address City/[facility]/ZIP Co de Phone Number [place] [phone] [facility] [place] [address] * Hepatitis panel, acute (07/27/2022 5:14 PM CDT) Pathologist [facility] Hep A IgM Nonreactive Nonreactive [facility] Comment: Interpretive Data: If Hep A IgM Ab is reported as Equivocal, a new sample should be drawn in two weeks for testing. Current interpretive data was last revised on 20. Hep B core IgM Nonreactive Nonreactive [facility] Comment: Interpretive Data If HepB Core IgM Ab is reported as Equivocal, a new sample should be drawn in two weeks for testing. Current interpretive data was last revised on 20. Hep C Ab Nonreactive Nonreactive [facility] Comment: Interpretive Data Nonreactive: Antibodies to [...] last revised on 2020. HepBsAg Nonreactive Nonreactive [facility] Blood 07/27/2022 5:14 PM CDT 07/27/2022 6:42 PM CDT Scar Medina MD LAB MICROBIOLOGY - GENERAL ORDERABLES Final Result Performing Organization Address [facility] de Phone Number [address] [facility] [place] [address] * HIV 1/2 Antibody plus p24 Antigen Blood (07/27/2022 5:14 PM CDT) [facility] HIV 1/2 ab + p24 ag Nonreactive Nonreactive [facility] Comment: Nonreactive for HIV-1 antigen and HIV-1/HIV-2 antibodies. No laboratory evidence of HIV infection. If acute HIV infection is suspected, consider testing for HIV-1 RNA. Blood 07/27/2022 5:14 PM CDT 07/27/2022 6:42 PM CDT Scar Medina MD LAB MICROBIOLOGY - GENERAL ORDERABLES Final Result Performing Organization Address [facility] de Phone Number [facility] [address] [place] [address] * RPR Blood (07/27/2022 5:14 PM CDT) Pathologist [facility] RPR Nonreactive Nonreactive CRISTY Comment:Testing performed by : [facility], [address] [facility] [place]., [address] Blood 07/27/2022 5:14 PM CDT 07/27/2022 7:26 PM CDT Scar Medina MD LAB MICROBIOLOGY - GENERAL ORDERABLES Final Result Performing Organization Address [facility] de Phone Number [facility] [address] [place] [address] * PSA screen (07/27/2022 5:14 PM CDT) Pathologist [facility] PSA-Total 0.37 <=3.90 ng/mL [facility] Comment: Interpretive [...] data last revised 22. Testing performed by: [address] [address] Blood 07/27/2022 5:14 PM CDT 07/27/2022 5:18 PM CDT Scar Medina MD LAB BLOOD ORDERAB LES Final Result Performing Organization Address [facility] Co de Phone Number CRISTY [address] [facility] [place], [place] [phone] * Hemoglobin A1c (07/27/2022 5:14 PM CDT) Hgb A1C 5.0 4.0 - 5.6 % [facility] Comment:Testing performed by : [address] [address] Estimated Average Glucose 97 mg/dL [facility] Comment: The ADA recommends reporting an estimated Average Glucose (eAG) with all Hemoglobin A1c results using the equation derived from a study of 507 normal and diabetic adults. ??Minority populations were underrepresented and children were not included. ?? (Diabetes Care 31:9965-7993, 2008). ??The eAG is not equivalent to a fasting glucose. Testing performed by: [address] [address] Blood 07/27/2022 5:14 PM CDT 07/27/2022 5:18 PM CDT Scar Medina MD LAB BLOOD ORDERAB LES Final Result Performing Organization Address City/[facility] Co de Phone Number [facility] [address] [facility] [place], [place] [phone] * Lipid panel (07/27/2022 5:14 PM CDT) [...] revised on 2018. Testing performed by: [address] [address] Triglycerides 71 <=149 mg/dL [facility] Comment: [...] revised on 2018. Testing performed by: [address] [address] HDL 56 >=40 mg/dL [facility] [place] Comment: [...] last revised on 2018. Testing performed by: [facility], [address] [place] [address]., [address] LDL, calculated 123 <=129 mg/dL [facility] Comment: [...] last revised on 2018. Testing performed by: [facility], [address] [place] [address]., [address] Non-HDL Cholesterol 137 mg/dL [facility] Comment: Interpretive [...] revised on 2018. Testing performed by: [address] [address] Chol/HDL ratio 3 [facility] Comment:Testing performed by : [address] [address] Blood 07/27/2022 5:14 PM CDT 07/27/2022 5:18 PM CDT us Scar Medina MD LAB BLOOD ORDERAB LES Final Result [facility] [address] [facility] Department [place] [address] * (ABNORMAL) Comprehensive metabolic panel (07/27/2022 5:14 PM CDT) Sodium 139 135 - 145 mmol/L [facility]STY Comment:Testing performed by : [address] [address] Potassium, pl 4.1 3.3 - 4.9 mmol/L [facility]Y Comment:Testing performed by : [address] [address] Chloride 102 97 - 110 mmol/L [facility]Y Comment:Testing performed by : [address] [address] CO2 27 22 - 32 mmol/L [facility] Comment:Testing performed by : [address] [address] Anion gap 10 2 - 15 mmol/L [facility] Comment:Testing performed by : [address] [address] BUN 7(L) 8 - 25 mg/dL [facility] Comment:Testing performed by : [address] [address] Creatinine 1.10 0.80 - 1.30 mg/dL [facility] Comment:Testing performed by : [address] [address] Glucose 82 70 - 199 mg/dL CRISTY [...] last revised 2017. Testing performed by: [address] [address] Calcium 10.0 8.5 - 10.3 mg/dL [facility] Comment:Testing performed by : [address] [address] Bilirubin, total 0.3 0.1 - 1.2 mg/dL [facility] Comment:Testing performed by : [address] [address] Protein, pl 7.7 6.5 - 8.5 g/dL [facility] Comment:Testing performed by : [address] [address] Albumin 5.0 3.5 - 5.0 g/dL [facility] Comment:Testing performed by : [address] [address] Alk phos 60 40 - 130 Units/L [facility] Comment:Testing performed by : [address] [address] ALT 14 7 - 55 Units/L [facility] Comment:Testing performed by : [address] [address] AST 21 10 - 50 Units/L [facility] Comment:Testing performed by : [address] [address] Blood 07/27/2022 5:14 PM CDT 07/27/2022 5:18 PM CDT us Scar Medina MD LAB BLOOD ORDERAB LES Final Result [facility] [address] [facility] Department [place] [address] * (ABNORMAL) CBC with auto differential (07/27/2022 5:14 PM CDT) WBC 8.1 3.8 - 9.9 K/cumm [facility] [place] Comment:Testing performed by : [address], [address] Hgb 14.3 13.0 - 17.5 g/dL [facility] [place] Comment:Testing performed by : [address], [address] Hct 42.1 38.9 - 50.3 % [facility] [place] Comment:Testing performed by : [address] [address] Plt 261 150 - 400 K/cumm [facility]STY Comment:Testing performed by : [address] [address] MPV 9.0(L) 9.1 - 12.3 fL [facility] [place] Comment:Testing performed by : [address] [address] RBC 4.35 4.30 - 5.80 M/cumm [facility] Comment:Testing performed by : [address] [address] MCV 96.8(H) 81.3 - 96.4 fL [facility] Comment:Testing performed by : [address] [address] MCH 32.9 27.1 - 33.3 pg [facility] [place] Comment:Testing performed by : [address], [address] MCHC 34.0 32.3 - 35.7 g/dL [facility] [place] Comment:Testing performed by : [address], [address] RDW CV 13.8 11.1 - 14.9 % [facility]Y Comment:Testing performed by : [address] [address] RDW SD 49.1(H) 35.7 - 48.1 fL [facility] [place] Comment:Testing performed by : [address] [address] NRBC abs 0.00 0.00 - 0.01 K/cumm [facility] [place] Comment:Testing performed by : [address] [address] Blood 07/27/2022 5:14 PM CDT 07/27/2022 5:18 PM CDT us Scar Medina MD LAB BLOOD ORDERAB LES Final Result [facility] [place] [address] [facility] Department [place] [address] documented in this encounter Visit Diagnoses Diagnosis [...] added in this encounter Care Teams Community Living Instructor Relationship Specialty Start Date End Date Scar Medina MD PCP - General Family Medicine 07/27/22 documented as of this encounter
--- OUTSIDE RECORDS SUMMARY | 2024-11-07 16:33 | XMS_ITS | Encounter Summary ---
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
--- OUTSIDE RECORDS SUMMARY | 2024-11-07 16:33 | XMS_ITS | Encounter Summary ---
Author Organization [facility] Healthcare Address [address] [place] [address] Care Team Providers Care Bill Sorter Name Role Phone David Feliz MD Primary Care Provide r Encounter Details Date Type Department Care Team (Latest Contact Info) Description 06/24/2021 7:18 AM CDT - 06/24/2021 10:34 AM CDT Hospital Encounter [facility] [address] [facility] [address] [place] [address] Noemi Mccoy MD [facility] [address] [facility] [address] [place] [address] Discharge Disposition: Discharge to home or self [...] on file 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 Room: [facility] ENDOSCOPY ROOM 8 Note Status: Finalized [...] verified by the physician, the nurse, the guest service representative and the mine technician in the procedure room. Respiratory Examination: [...] bowel preparation was evaluated using the BBPS ([place] Bowel Preparation Scale) with scores of: Right [...] On: 06/24/2021 9:15 AM Recognized by the [employer] for promoting quality [...] Male Attending MD: Noemi Mccoy M.D. Room: [facility]OM 8 Note Status: Finalized [...] were verified by the physician,the nurse, the guest service representative and the mine technician in the procedure room. Respiratory Examination: [...] bowel preparation was evaluated using the BBPS ([place] Bowel Preparation Scale)with scores of: Right Colon [...] On: 06/24/2021 9:15 AM Recognized by the [employer] for promoting quality [...] 06/01 documented in this encounter Care Teams Bill Sorter Relationship Specialty Start Date End Date David Feliz MD PCP - General 04/18/21 07/26/22 documented as of this encounter
--- OUTSIDE RECORDS SUMMARY | 2024-11-07 16:33 | XMS_ITS | Encounter Summary ---
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 * Attachments The following attachments cannot be sent through Care Everywhere. * Insomnia (Content Administrator) (Prydeinig) * Insomnia (General Information) (Prydeinig) * How to Stop Smoking (Content Administrator) (Prydeinig) * Alcohol Use Disorder (Content Administrator) (Prydeinig) documented in this encounter Ordered Prescriptions Prescription [...] that and any local drug store like [employer]. MEDICAL and SURGICAL HISTORY Past Medical History: [...] sleep documented in this encounter Care Teams Advisor Consultant Relationship Specialty Start Date End Date David Feliz MD PCP - General 04/18/21 07/26/22 documented as of this encounter
--- OUTSIDE RECORDS SUMMARY | 2024-11-07 16:33 | XMS_ITS | Encounter Summary ---
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 gonorrhoeae Not Detected Not Detected CRISTY GLOVER Comment: Interpretive Data Testing performed by the [facility]. This assay detects Chlamydia trachomatis [...] last revised on 2019. Testing performed by: [facility], [address] [place] [address]., [address] Urine (None) 07/27/2022 5:20 PM CDT 07/27/2022 6:27 PM CDT us Clare Kasper MD LAB MICROBIOLOGY - GENERAL ORDERABLES Final Result Performing Organization Address [facility] de Phone Number CRISTY [address] [facility] [place] [address] * eGFR (07/27/2022 5:14 PM CDT) Pathologist [facility] eGFR 81 mL/min/1. 73 m2 CRISTY [...] was last reviewed 2021. Testing performed by: [facility], [address] [place] [address]., [address] Blood 07/27/2022 5:14 PM CDT 07/27/2022 5:18 PM CDT Clare Kasper MD LAB BLOOD ORDERAB LES Final Result Performing Organization Address City/[facility] Co de Phone Number CRISTY [address] [facility] Department of Laboratories [place] [phone] * Differential, auto (07/27/2022 5:14 PM CDT) Neutrophil abs 4.8 1.7 - 6.5 K/cumm CRISTY Comment:Testing performed by : [address] [address] Imm gran abs 0.0 0.0 - 0.1 K/cumm CRISTY Comment:Testing performed by : [address] [address] Lymphocyte abs 2.4 0.8 - 3.3 K/cumm CRISTY Comment:Testing performed by : [address] [address] Monocyte abs 0.7 0.2 - 0.8 K/cumm CRISTY Comment:Testing performed by : [address] [address] Eosinophil abs 0.2 0.0 - 0.5 K/cumm CRISTY Comment:Testing performed by : [address] [address] Basophil abs 0.1 0.0 - 0.1 K/cumm [facility] Comment:Testing performed by : [address] [address] Neutrophil pct 59.3 % [facility] Comment: Interpretive Data Percent cell count reference ranges are not reported, since discordance with absolute values may lead to misinterpretation of CBC data. Current Interpretive Data was last revised on 2018. Testing performed by: [address] [address] Imm gran pct 0.1 % [facility] Comment: Interpretive Data Percent cell count reference ranges are not reported, since discordance with absolute values may lead to misinterpretation of CBC data. Current Interpretive Data was last revised on 2018. Testing performed by: [address] [address] Lymphocyte pct 29.1 % [facility] Comment: Interpretive Data Percent cell count reference ranges are not reported, since discordance with absolute values may lead to misinterpretation of CBC data. Current Interpretive Data was last revised on 2018. Testing performed by: [address] [address] Monocyte pct 8.1 % CRISTY GLOVER Comment: Interpretive Data Percent cell count reference ranges are not reported, since discordance with absolute values may lead to misinterpretation of CBC data. Current Interpretive Data was last revised on 2018. Testing performed by: [address] [address] Eosinophil pct 2.5 % CRISTY GLOVER Comment: Interpretive Data Percent cell count reference ranges are not reported, since discordance with absolute values may lead to misinterpretation of CBC data. Current Interpretive Data was last revised on 2018. Testing performed by: [address] [address] Basophil pct 0.9 % CRISTY GLOVER Comment: Interpretive Data Percent cell count reference ranges are not reported, since discordance with absolute values may lead to misinterpretation of CBC data. Current Interpretive Data was last revised on 2018. Testing performed by: [address] [address] Blood 07/27/2022 5:14 PM CDT 07/27/2022 5:18 PM CDT us Clare Kasper MD LAB BLOOD ORDERAB LES Final Result [facility] [address] [facility] Department [place] [address] * (ABNORMAL) CBC with auto differential (07/27/2022 5:14 PM CDT) WBC 8.1 3.8 - 9.9 K/cumm CRISTY GLOVER Comment:Testing performed by : [address] [address] Hgb 14.3 13.0 - 17.5 g/dL CRISTY GLOVER Comment:Testing performed by : [address] [address] Hct 42.1 38.9 - 50.3 % CRISTY GLOVER Comment:Testing performed by : [address] [address] Plt 261 150 - 400 K/cumm CRISTY GLOVER Comment:Testing performed by : [address] [address] MPV 9.0(L) 9.1 - 12.3 fL CRISTY GLOVER Comment:Testing performed by : [address] [address] RBC 4.35 4.30 - 5.80 M/cumm CRISTY GLOVER Comment:Testing performed by : [address] [address] MCV 96.8(H) 81.3 - 96.4 fL CRISTY GLOVER Comment:Testing performed by : [address] [address] MCH 32.9 27.1 - 33.3 pg CRISTY GLOVER Comment:Testing performed by : [address] [address] MCHC 34.0 32.3 - 35.7 g/dL CRISTY GLOVER Comment:Testing performed by : [address] [address] RDW CV 13.8 11.1 - 14.9 % CRISTY GLOVER Comment:Testing performed by : [address] [address] RDW SD 49.1(H) 35.7 - 48.1 fL CRISTY GLOVER Comment:Testing performed by : [address] [address] NRBC abs 0.00 0.00 - 0.01 K/cumm CRISTY GLOVER Comment:Testing performed by : [address] [address] Blood 07/27/2022 5:14 PM CDT 07/27/2022 5:18 PM CDT us Clare Kasper MD LAB BLOOD ORDERAB LES Final Result CRISTY [address] [facility] Department [place] [address] * (ABNORMAL) Comprehensive metabolic panel (07/27/2022 5:14 PM CDT) Sodium 139 135 - 145 mmol/L CRISTY Comment:Testing performed by : [address] [address] Potassium, pl 4.1 3.3 - 4.9 mmol/L CRISTY Comment:Testing performed by : [address] [address] Chloride 102 97 - 110 mmol/L CRISTY Comment:Testing performed by : [address] [address] CO2 27 22 - 32 mmol/L CRISTY Comment:Testing performed by : [address] [address] Anion gap 10 2 - 15 mmol/L RCISTY Comment:Testing performed by : [address] [address] BUN 7(L) 8 - 25 mg/dL CRISTY Comment:Testing performed by : [address] [address] Creatinine 1.10 0.80 - 1.30 mg/dL CRISTY Comment:Testing performed by : [address] [address] Glucose 82 70 - 199 mg/dL CRISTY [...] was last revised 2017. Testing performed by: [address] [address] Calcium 10.0 8.5 - 10.3 mg/dL CRISTY Comment:Testing performed by : [address] [address] Bilirubin, total 0.3 0.1 - 1.2 mg/dL CRISTY Comment:Testing performed by : [address] [address] Protein, pl 7.7 6.5 - 8.5 g/dL CRISTY Comment:Testing performed by : [address], [facility], [address] Albumin 5.0 3.5 - 5.0 g/dL CRISTY Comment:Testing performed by : [address], [address] Alk phos 60 40 - 130 Units/L CRISTY Comment:Testing performed by : [address], [address] ALT 14 7 - 55 Units/L CRISTY Comment:Testing performed by : [address], [address] AST 21 10 - 50 Units/L CRISTY Comment:Testing performed by : [address] [address] Blood 07/27/2022 5:14 PM CDT 07/27/2022 5:18 PM CDT us Clare Kasper MD LAB BLOOD ORDERAB LES Final Result Performing Organization Address [facility]/State/[facility] Co de Phone Number [facility] [address] [facility] Department [place] [address] * Lipid panel (07/27/2022 5:14 PM CDT) [facility] Cholesterol 193 30 - 199 mg/dL [...] last revised on 2018. Testing performed by: [facility], [address] [place] [address]., [address] Triglycerides 71 <=149 mg/dL CRISTY Comment: Interpretive [...] last revised on 2018. Testing performed by: [address] [address] HDL 56 >=40 mg/dL CRISTY Comment: Interpretive [...] last revised on 2018. Testing performed by: [address] [address] LDL, calculated 123 <=129 mg/dL CRISTY Comment: [...] last revised on 2018. Testing performed by: [address] [address] Non-HDL Cholesterol 137 mg/dL CRISTY Comment: Interpretive [...] last revised on 2018. Testing performed by: [address] [address] Chol/HDL ratio 3 CRISTY Comment:Testing performed by : [address] [address] Blood 07/27/2022 5:14 PM CDT 07/27/2022 5:18 PM CDT Clare Kasper MD LAB BLOOD ORDERAB LES Final Result Performing Organization Address [facility] de Phone Number [facility] [address] [facility] [place] [address] * Hemoglobin A1c (07/27/2022 5:14 PM CDT) Pathologist [facility] Hgb A1C 5.0 4.0 - 5.6 % CRISTY Comment:Testing performed by : [address] [address] Estimated Average Glucose 97 mg/dL CRISTY Comment: The ADA recommends reporting an estimated Average Glucose (eAG) with all Hemoglobin A1c results using the equation derived from a study of 507 normal and diabetic adults. ??Minority populations were underrepresented and children were not included. ?? (Diabetes Care 31:7106-8796, 2008). ??The eAG is not equivalent to a fasting glucose. Testing performed by: [address] [address] Blood 07/27/2022 5:14 PM CDT 07/27/2022 5:18 PM CDT Clare Kasper MD LAB BLOOD ORDERAB LES Final Result Performing Organization Address [facility] de Phone Number [facility] [address] [facility] [address] [address] * PSA screen (07/27/2022 5:14 PM CDT) [facility] PSA-Total 0.37 <=3.90 ng/mL CRISTY Comment: [...] data last revised 22. Testing performed by: [facility], [address] [place] [address]., [address] Blood 07/27/2022 5:14 PM CDT 07/27/2022 5:18 PM CDT us Clare Kasper MD LAB BLOOD ORDERAB LES Final Result Performing Organization Address [facility] Co de Phone Number CRISTY [facility] [place] [address] * RPR Blood (07/27/2022 5:14 PM CDT) RPR Nonreactive Nonreactive CRISTY Comment:Testing performed by : [facility], [address] [facility] [place]., [address] Blood 07/27/2022 5:14 PM CDT 07/27/2022 7:26 PM CDT Clare Kasper MD LAB MICROBIOLOGY - GENERAL ORDERABLES Final Result Performing Organization Address City/[facility] Co de Phone Number CRISTY [address] [facility] Department [place] [address] * HIV 1/2 Antibody plus p24 Antigen Blood (07/27/2022 5:14 PM CDT) Pathologist [facility] HIV 1/2 ab + p24 ag Nonreactive Nonreactive [facility] Comment: Nonreactive for HIV-1 antigen and HIV-1/HIV-2 antibodies. No laboratory evidence of HIV infection. If acute HIV infection is suspected, consider testing for HIV-1 RNA. Blood 07/27/2022 5:14 PM CDT 07/27/2022 6:42 PM CDT Clare Kasper MD LAB MICROBIOLOGY - GENERAL ORDERABLES Final Result [facility] [address] [facility] Department [place] [address] * Hepatitis panel, acute (07/27/2022 5:14 PM CDT) [facility] Hep A IgM Nonreactive Nonreactive [facility] Comment: Interpretive Data: If Hep A IgM Ab is reported as Equivocal, a new sample should be drawn in two weeks for testing. Current interpretive data was last revised on 20. Hep B core IgM Nonreactive Nonreactive [facility] Comment: Interpretive Data If HepB Core IgM Ab is reported as Equivocal, a new sample should be drawn in two weeks for testing. Current interpretive data was last revised on 20. Hep C Ab Nonreactive Nonreactive [facility] Comment: Interpretive Data Nonreactive: Antibodies to HCV [...] GENERAL ORDERABLES Final Result Performing Organization Address City/[facility]/ZIP Co de Phone Number CRISTY [facility] [place] [address] * Vitamin D 25 hydroxy (07/27/2022 5:14 PM CDT) Vitamin D 25-OH 40.0 30.0 - 80.0 ng/mL CRISTY Blood 07/27/2022 5:14 PM CDT 07/27/2022 6:42 PM CDT us Clare Kasper MD LAB BLOOD ORDERAB LES Final Result Performing Organization Address [facility] Co de Phone Number CRISTY [address] [place] [address] documented in this encounter Visit Diagnoses Diagnosis Vitamin D deficiency Annual physical exam Routine general medical examination at a health care facility Primary hypertension Unspecified essential hypertension Hyperlipidemia, unspecified hyperlipidemia type documented in this encounter Care Teams Operational Risk Manager Relationship Specialty Start Date End Date Clare Kasper MD PCP - General Family Medicine 07/27/22 documented as of this encounter
--- OUTSIDE RECORDS SUMMARY | 2024-11-07 16:33 | XMS_ITS | Encounter Summary ---
Author Organization [facility] Healthcare Address [address] [place] [address] Care Team Providers Care Dial Polisher Name Role Phone Teresita Painting MD Primary Care Prov ider Encounter Details Date Type Department Care Team (Late st Contact Info) Description 12/08/2020 9:15 AM APPEALS REVIEWER VETERAN Telemedicine [facility] Primary Care Medicine Clinic [facility] [address] [place], [place] [id number] Nyla Bautista MD [address] [place] [address] [facility] [phone] [place], [place] [phone] Francisco Bazzi MD [address] [place] [address] [address] [place], [place] [phone] Essential hypertension (Primary Dx); Sinus congestion Discharge [...] on file Legal Sex Male 2:37 PM APPEALS REVIEWER VETERAN Gender Identity Not on file Sexual Orientation [...] During the visit, I was located at [facility] and the patient was located his residence, in the [facility]. If the patient was located in the [facility] I will staff the patient with an attending who has an [place] license. The session started at 09:17AM and [...] video resolution insufficient, etc), equipment failure, and account information clerk issues. An in-person visit may be necessary [...] file Gets together: Not on file Attends taoist service: Not on file Active member of [...] Noah Larios MD at 12/10/2020 1:16 PM APPEALS REVIEWER VETERAN ALS REVIEWER VETERAN ALS REVIEWER VETERAN Associated attestation - Noah Larios MD - 12/10/2020 1:16 PM APPEALS REVIEWER VETERAN I was immediately available for consultation during [...] see patients in clinic while [facility] social [facility]; a telehealth visit allows us to provide safe, essential and timely care for our patients. ALS REVIEWER VETERAN documented in this encounter Miscellaneous Notes * Assessment & Plan Note - Francisco Bazzi MD - 12/08/2020 12:31 PM APPEALS REVIEWER VETERAN Associated Problem(s): Hypertension Blood pressure very well-controlled with amlodipine. No symptoms of hypotension, no adverse reactions. No signs/symptoms suggestive of ACS/CAD, CHF, CVA - continue amlodipine 10mg daily - reviewed low sodium diet ALS REVIEWER VETERAN documented in this encounter Plan of Treatment [...] documented as of this encounter Care Teams Dial Polisher Relationship Specialty Start Date End Date Teresita Painting MD PCP - General 10/25/19 04/17/21 documented as of this encounter
--- OUTSIDE RECORDS SUMMARY | 2024-11-07 16:33 | XMS_ITS | Encounter Summary ---
Author Organization [facility] Address [address] [place] [address] Phone Care Team Providers Care Mule Driver Name Role Phone David Feliz MD Primary Care Provide r Encounter Details Date Type Department Care Team (Late st Contact Info) Description 05/01/2021 Telephone [facility] Gastroenterology [facility] [address] [place] [address] [place] [address] Laura Carlisle RN Social History Tobacco Use Types Packs/Day Years Used Date Smoking Tobacco: Every Day Cigarettes Smokeless Tobacco: Never Comments:8 cigs a day Alcohol Use Standard Drinks/Week Comments Yes 0 (1 standard drink = 0.6 oz pur e alcohol) occasionally Sex and Gender Information Value Date Recorded Sex Assigned at Not on file 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
--- OUTSIDE RECORDS SUMMARY | 2024-11-07 16:33 | XMS_ITS | Encounter Summary ---
Author Organization [facility] Healthcare Address [address] [place] [address] Care Team Providers Care Home Health Aid Name Role Phone Teresita Painting MD Primary Care Prov ider Encounter Details Date Type Department Care Team (Late st Contact Info) Description 11/10/2020 Telephone [facility] Primary [facility] Medicine Clinic [address] [facility] [address] [place] [address] Lionel Busyb MD [address] [facility] [place] [address] Social History Tobacco Use Types Packs/Day Years Used Date Smoking Tobacco: Every Day Cigarettes Smokeless Tobacco: Never Comments:8 cigs a day Alcohol Use Standard Drinks/Week Comments Yes 0 (1 standard drink = 0.6 oz pur e alcohol) occasionally Sex and Gender Information Value Date Recorded Sex Assigned at Not on file Legal Sex Male 2:37 PM RECEIVABLE EXECUTIVE Gender Identity Not on file Sexual Orientation [...] Lionel Busby MD - 11/10/2020 2:59 PM RECEIVABLE EXECUTIVE Reviewed labs with pt. Giving 8 week course vid D 50k units weekly. Lionel Busby MD IVABLE EXECUTIVE documented in this encounter Plan of Treatment [...] on filedocumented in this encounter Care Teams Home Health Aid Relationship Specialty Start Date End Date Teresita Painting MD PCP - General 10/25/19 04/17/21 documented as of this encounter
--- OUTSIDE RECORDS SUMMARY | 2024-11-07 16:33 | XMS_ITS | Encounter Summary ---
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 LDL, calculated 47 <=129 mg/dL [facility] Comment: Interpretive Data Ages < or = [...] revised on 2018. Non-HDL Cholesterol 56 mg/dL [facility] Comment: Interpretive Data Ages < or = [...] last revised on 2018. Chol/HDL ratio 2 [facility] Blood 08/19/2021 4:07 PM CDT 08/19/2021 4:58 PM CDT David Feliz MD LAB BLOOD ORDERABLES Final Result [facility] [place] [address] * Basic metabolic panel (08/19/2021 4:07 PM CDT) [facility] Sodium 141 135 - 145 mmol/L [facility] Potassium, pl 4.2 3.3 - 4.9 mmol/L [facility] Comment:Hemolyzed; Potassium value may be falsely elevated by as much as 0.3-0.5 mmol/L. Suggest redraw and reanalysis. Chloride 101 97 - 110 mmol/L [facility] CO2 26 22 - 32 mmol/L [facility] Anion gap 14 2 - 15 mmol/L [facility] BUN 12 8 - 25 mg/dL [facility] Creatinine 1.13 0.80 - 1.30 mg/dL [facility] Glucose 80 70 - 199 mg/dL [facility] Comment: Interpretive Data Fasting glucose >/= 126 [...] 2017. Calcium 9.6 8.5 - 10.3 mg/dL [facility] Blood 08/19/2021 4:07 PM CDT 08/19/2021 4:58 PM CDT David Feliz MD LAB BLOOD ORDERABLES Final Result Performing Organization Address City/[facility]/ZIP Co de Phone Number CRISTY [facility] Department [place] [address] * Hepatic function panel (08/19/2021 4:07 PM CDT) [facility] Bilirubin, total 0.3 0.1 - 1.2 mg/dL [facility] Bilirubin, direct <0.2 0.1 - 0.3 mg/dL [facility] Protein, pl 7.6 6.5 - 8.5 g/dL [facility] Albumin 4.8 3.5 - 5.0 g/dL [facility] Alk phos 67 40 - 130 Units/L [facility] ALT 20 7 - 55 Units/L [facility] AST 34 10 - 50 Units/L [facility] Comment:Hemolyzed; result ma y be falsely elevated Blood 08/19/2021 4:07 PM CDT 08/19/2021 4:58 PM CDT David Feliz MD LAB BLOOD ORDERABLES Final Result [facility] Department [place] [address] * HIV 1/2 Antibody plus p24 Antigen (08/19/2021 4:07 PM CDT) [facility] HIV 1/2 ab + p24 ag Nonreactive Nonreactive [facility] Comment: Nonreactive for HIV-1 antigen and HIV-1/HIV-2 antibodies. No laboratory evidence of HIV infection. If acute HIV infection is suspected, consider testing for HIV-1 RNA. Blood 08/19/2021 4:07 PM CDT 08/19/2021 4:58 PM CDT David Feliz MD LAB MICROBIOLOGY - NERAL ORDERABLES Final Result [facility] Department [place] [address] * Hemoglobin A1c (08/19/2021 4:07 PM CDT) Hgb A1C 5.1 4.0 - 5.6 % [facility] Estimated Average Glucose 100 mg/dL CRISTY OROZCO [...] Feliz MD LAB BLOOD ORDERABLES Final Result [facility] Department [place] [address] documented in this encounter Visit Diagnoses Diagnosis Screening for diabetes mellitus (DM) Screening for diabetes mellitus Screening for HIV (human immunodeficiency virus) Special screening examination for other specified viral diseases Onychomycosis Dermatophytosis of nail Primary hypertension Unspecified essential hypertension Hyperlipidemia, unspecified hyperlipidemia type documented in this encounter Care Teams Nanoscience Technician Relationship Specialty Start Date End Date David Feliz MD PCP - General 04/18/21 07/26/22 documented as of this encounter
--- OUTSIDE RECORDS SUMMARY | 2024-11-07 16:33 | XMS_ITS | Encounter Summary ---
Author Organization [facility] Address [address] [place] [address] Phone Care Team Providers Care Materials Planning Manager Name Role Phone David Feliz MD Primary Care Provide r Encounter Details Date Type Department Care Team (Late st Contact Info) Description 05/22/2021 Telephone [facility] Gastroenterology [address] [facility] 8th [place] [address] [place] [address] Laura Carlisle RN Social History Tobacco Use Types Packs/Day Years Used Date Smoking Tobacco: Every Day Cigarettes Smokeless Tobacco: Never Comments:8 cigs a day Alcohol Use Standard Drinks/Week Comments Yes 0 (1 standard drink = 0.6 oz pur e alcohol) occasionally Sex and Gender Information Value Date Recorded Sex Assigned at Not on file Legal Sex Male 2:[address] MAGISTRATE Gender Identity Not on file [...] on filedocumented in this encounter Care Teams Materials Planning Manager Relationship Specialty Start Date End Date David Feliz MD PCP - General 04/18/21 07/26/22 documented as of this encounter
--- OUTSIDE RECORDS SUMMARY | 2024-11-07 16:33 | XMS_ITS | Encounter Summary ---
Author Organization [facility] Healthcare Address [facility] [place] [address] Care Team Providers Care Pole Lift Operator Name Role Phone David Feliz MD Primary Care Provide r Reason for Visit * Reason Comments Follow-up Encounter Details Date Type Department Care Team (Latest Contact Info) Description 08/19/2021 3:00 PM CDT Office Visit [facility] Primary Care Medicine Clinic [address] [facility] 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 Gender Identity Not on file Sexual Orientation [...] A1c (08/19/2021 4:07 PM CDT) Pathologist [facility] Hgb A1C 5.1 4.0 - 5.6 % [facility] Estimated Average Glucose 100 mg/dL [facility] Comment: The ADA recommends reporting an [...] Feliz MD LAB BLOOD ORDERABLES Final Result [facility] One [facility] Department [place] [address] * HIV 1/2 Antibody plus p24 Antigen (08/19/2021 4:07 PM CDT) Pathologist [facility] HIV 1/2 ab + p24 ag Nonreactive Nonreactive [facility] Comment: Nonreactive for HIV-1 antigen and HIV-1/HIV-2 antibodies. No laboratory evidence of HIV infection. If acute HIV infection is suspected, consider testing for HIV-1 RNA. Blood 08/19/2021 4:07 PM CDT 08/19/2021 4:58 PM CDT David Feliz MD LAB MICROBIOLOGY - NERAL ORDERABLES Final Result Performing Organization Address [facility] Co de Phone Number [facility] [place] [address] * Hepatic function panel (08/19/2021 4:07 PM CDT) Bilirubin, total 0.3 0.1 - 1.2 mg/dL [facility] Bilirubin, direct <0.2 0.1 - 0.3 mg/dL [facility] Protein, pl 7.6 6.5 - 8.5 g/dL [facility] Albumin 4.8 3.5 - 5.0 g/dL [facility] Alk phos 67 40 - 130 Units/L [facility] ALT 20 7 - 55 Units/L [facility] AST 34 10 - 50 Units/L [facility] Comment:Hemolyzed; result ma y be falsely elevated Blood 08/19/2021 4:07 PM CDT 08/19/2021 4:58 PM CDT David Feliz MD LAB BLOOD ORDERABLES Final Result Performing Organization Address [facility] de Phone Number [facility] Department [place] [address] * Basic metabolic panel (08/19/2021 4:07 PM CDT) Sodium 141 135 - 145 mmol/L [facility] Potassium, pl 4.2 3.3 - 4.9 mmol/L [facility] Comment:Hemolyzed; Potassium value may be falsely elevated by as much as 0.3-0.5 mmol/L. Suggest redraw and reanalysis. Chloride 101 97 - 110 mmol/L [facility] CO2 26 22 - 32 mmol/L [facility] Anion gap 14 2 - 15 mmol/L [facility] BUN 12 8 - 25 mg/dL [facility] Creatinine 1.13 0.80 - 1.30 mg/dL [facility] Glucose 80 70 - 199 mg/dL [facility] Comment: Interpretive Data Fasting glucose >/= [...] 2017. Calcium 9.6 8.5 - 10.3 mg/dL [facility] Blood 08/19/2021 4:07 PM CDT 08/19/2021 4:58 PM CDT David Feliz MD LAB BLOOD ORDERABLES Final Result [facility] One [facility] Department [place] [address] * Lipid panel (08/19/2021 4:07 PM CDT) [facility] Cholesterol 112 30 - 199 mg/dL [facility] Comment: Interpretive Data Ages < or [...] revised on 2018. Triglycerides 43 <=149 mg/dL [facility] Comment: Interpretive Data Ages < or [...] revised on 2018. HDL 56 >=40 mg/dL [facility] Comment: Interpretive Data Ages < or [...] on 2018. LDL, calculated 47 <=129 mg/dL [facility] Comment: Interpretive Data Ages < or [...] revised on 2018. Chol/HDL ratio 2 [facility] Blood 08/19/2021 4:07 PM CDT 08/19/2021 4:58 PM CDT David Feliz MD LAB BLOOD ORDERABLES Final Result [facility] Department of Laboratories [place], [place] [id number] documented in this encounter Visit Diagnoses Diagnosis Onychomycosis- Primary Dermatophytosis of nail Hyperlipidemia, unspecified hyperlipidemia type Primary hypertension Unspecified essential hypertension Alcohol-induced insomnia (CMS/HCC) (HCC) Screening for HIV (human immunodeficiency virus) Special screening examination for other specified viral diseases Screening for diabetes mellitus (DM) Screening for diabetes mellitus Tobacco use documented in this encounter Care Teams Pole Lift Operator Relationship Specialty Start Date End Date David Feliz MD PCP - General 04/18/21 07/26/22 documented as of this encounter
--- OUTSIDE RECORDS SUMMARY | 2024-11-07 16:33 | XMS_ITS | Encounter Summary ---
Author Organization [facility] Healthcare Address [address] [place] [address] Care Team Providers Care Driller Portable Name Role Phone David Feliz MD Primary Care Provide r Reason for Visit * Reason Comments Withdrawal Encounter Details Date Type Department Care Team ([facility] st Contact Info) Description 07/14/2021 6:34 AM CDT - 07/14/2021 12:03 PM CDT Emergency [facility] [address] [place] [address] Jose Acosta MD [facility] [address] [facility] [address] [place] [address] Alcohol withdrawal syndrome without complication (CMS/HCC) (HCC) [...] on file 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 * Abuse of Alcohol (AfterCare(R) Instructions(ER/ED)) (Polish) * Alcohol Withdrawal (Polish) * Tremors (General Information) (Polish) documented in this encounter Medications at Time [...] Alcohol abuse, tobacco abuse, employed with an [employer] Patient History: Patient Active Problem List Diagnosis [...] Public Transportation Comments: Zina Liu RN 07/14/21 0699 * Olivia Johnson RN - 07/13/2021 5:15 [...] Glucose, POC 122 70 - 199 mg/dL [facility] Blood 07/14/2021 10:2 2 AM CDT 07/14/2021 10:22 AM CDT us Notinfile Unknown LAB POCT ORDERABLES - DEVICE F inal Result [facility] One [facility] Department [place] [address] * (ABNORMAL) POCT glucose (07/14/2021 9:51 AM CDT) Glucose, POC 60(L) 70 - 199 mg/dL [facility] Blood 07/14/2021 9:51 AM CDT 07/14/2021 9:51 AM CDT us Notinfile Unknown LAB POCT ORDERABLES - DEVICE F inal Result Performing Organization Address [facility] de Phone Number [facility] [place] [address] * Critical Result Callback Chemistry (07/14/2021 8:23 AM CDT) Date Notified [id number] [facility] Time Notified [address] [facility] TestName Glucose [facility] Called/Read Back Jose MUNIZ [facility] Credentials MD MUNIZ [facility] Called By [facility] Blood 07/14/2021 8:23 AM CDT 07/14/2021 8:33 AM CDT Jose Acosta MD LAB BLOOD ORDERABLES Final Result Performing Organization Address [facility] de Phone Number [facility] [place] [address] * eGFR (07/14/2021 8:23 AM CDT) Pathologist [facility] eGFR >90 90 - 130 mL/min/1.7 3 m2 [facility] Comment: Interpretive Data Reference Interval [...] Acosta MD LAB BLOOD ORDERABLES Final Result [facility] One [facility] [place] [address] * (ABNORMAL) Differential, auto (07/14/2021 8:23 AM CDT) Neutrophil abs 8.4(H) 1.7 - 6.5 K/cumm [facility] Imm gran abs 0.0 0.0 - 0.1 K/cumm [facility] Lymphocyte abs 2.0 0.8 - 3.3 K/cumm [facility] Monocyte abs 0.5 0.2 - 0.8 K/cumm [facility] Eosinophil abs 0.1 0.0 - 0.5 K/cumm [facility] Basophil abs 0.1 0.0 - 0.1 K/cumm [facility] Neutrophil pct 74.9 % [facility] Comment: Interpretive Data Percent cell count reference ranges are not reported, since discordance with absolute values may lead to misinterpretation of CBC data. Current Interpretive Data was last revised on 2018. Imm gran pct 0.4 % [facility] Comment: Interpretive Data Percent cell count reference ranges are not reported, since discordance with absolute values may lead to misinterpretation of CBC data. Current Interpretive Data was last revised on 2018. Lymphocyte pct 18.2 % [facility] Comment: Interpretive Data Percent cell count reference ranges are not reported, since discordance with absolute values may lead to misinterpretation of CBC data. Current Interpretive Data was last revised on 2018. Monocyte pct 4.6 % [facility] Comment: Interpretive Data Percent cell count reference ranges are not reported, since discordance with absolute values may lead to misinterpretation of CBC data. Current Interpretive Data was last revised on 2018. Eosinophil pct 1.3 % [facility] Comment: Interpretive Data Percent cell count reference ranges are not reported, since discordance with absolute values may lead to misinterpretation of CBC data. Current Interpretive Data was last revised on 2018. Basophil pct 0.6 % [facility] Comment: Interpretive Data Percent cell count reference ranges are not reported, since discordance with absolute values may lead to misinterpretation of CBC data. Current Interpretive Data was last revised on 2018. Blood 07/14/2021 8:23 AM CDT 07/14/2021 8:33 AM CDT Jose Acosta MD LAB BLOOD ORDERABLES Final Result Performing Organization Address City/[facility]/ZIP Co de Phone Number [facility] [place] [address] * (ABNORMAL) Lactate (07/14/2021 8:23 AM CDT) Pathologist [facility] Lactate 2.1(H) 0.7 - 2.0 mmol/L [facility] Blood 07/14/2021 8:23 AM CDT 07/14/2021 8:33 AM CDT Jose Acosta MD LAB BLOOD ORDERABLES Final Result [facility] [place] [address] * (ABNORMAL) CBC with auto differential (07/14/2021 8:23 AM CDT) Pathologist [facility] WBC 11.2(H) 3.8 - 9.9 K/cumm [facility] Hgb 14.7 13.0 - 17.5 g/dL [facility] Hct 42.1 38.9 - 50.3 % [facility] Plt 221 150 - 400 K/cumm [facility] MPV 9.1 9.1 - 12.3 fL [facility] RBC 4.55 4.30 - 5.80 M/cumm [facility] MCV 92.5 81.3 - 96.4 fL [facility] MCH 32.3 27.1 - 33.3 pg [facility] MCHC 34.9 32.3 - 35.7 g/dL [facility] RDW CV 13.4 11.1 - 14.9 % [facility] RDW SD 45.6 35.7 - 48.1 fL [facility] NRBC abs 0.00 0.00 - 0.01 K/cumm [facility] Blood 07/14/2021 8:23 AM CDT 07/14/2021 8:33 AM CDT Jose Acosta MD LAB BLOOD ORDERABLES Final Result [facility] One [facility] [place] [address] * (ABNORMAL) Comprehensive metabolic panel (07/14/2021 8:23 AM CDT) Sodium 137 135 - 145 mmol/L [facility] Potassium, pl 5.3(H) 3.3 - 4.9 mmol/L [facility] Chloride 95(L) 97 - 110 mmol/L [facility] CO2 26 22 - 32 mmol/L [facility] Anion gap 16(H) 2 - 15 mmol/L [facility] BUN 13 8 - 25 mg/dL [facility] Creatinine 0.87 0.80 - 1.30 mg/dL [facility] Glucose 50(C) 70 - 199 mg/dL [facility] Comment: Glycolysis suspected; suggest sending a todd [...] Calcium 10.3 8.5 - 10.3 mg/dL [facility] Bilirubin, total 0.8 0.1 - 1.2 mg/dL [facility] Protein, pl 8.5 6.5 - 8.5 g/dL [facility] Albumin 5.3(H) 3.5 - 5.0 g/dL [facility] Alk phos 78 40 - 130 Units/L [facility] ALT 22 7 - 55 Units/L [facility] AST 35 10 - 50 Units/L [facility] Blood 07/14/2021 8:23 AM CDT 07/14/2021 8:33 AM CDT Jose Acosta MD LAB BLOOD ORDERABLES Final Result [facility] One [facility] [place] [address] * Blood gas, venous (07/14/2021 8:23 AM CDT) pH, Venous 7.36 7.32 - 7.43 [facility] PCO2, Venous 49 40 - 50 mmHg [facility] PO2, Venous 30 mmHg [facility] Comment: Interpretive Data No Reference Range Established Current Interpretive Data was last revised on 2018. HCO3 Venous, Calculated 28 20 - 30 mmol/L [facility] BE, venous 1 mmol/L [facility] Comment: Interpretive Data No Reference Range Established Current Interpretive Data was last revised on 2018. Blood 07/14/2021 8:23 AM CDT 07/14/2021 8:29 AM CDT Jose Acosta MD LAB BLOOD ORDERABLES Final Result [facility] One [facility] [place] [address] * ECG 12-LEAD (07/14/2021 8:13 AM CDT) Mimi [facility] - 07/14/2021 8:13 AM CDT Jose [...] 07/14/2021 documented in this encounter Care Teams Driller Portable Relationship Specialty Start Date End Date David Feliz MD PCP - General 04/18/21 07/26/22 documented as of this encounter
--- OUTSIDE RECORDS SUMMARY | 2024-11-07 16:33 | XMS_ITS | Encounter Summary ---
Author Organization [facility] Address [address] [place] [address] Phone Care Team Providers Care Flat Lock Machine Operator Name Role Phone David Feliz MD Primary Care Provide r Reason for Visit * Reason Onset Date Comments Colonoscopy 05/22/2021 Encounter Details Date Type Department Care Team (Late st Contact Info) Description 05/22/2021 Telephone [facility] Surgery [address] [facility] Advanced [facility] 8th [place] [address] [place] [address] Daisy Richards B.A. 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
--- OUTSIDE RECORDS SUMMARY | 2024-11-07 16:33 | XMS_ITS | Encounter Summary ---
Author Organization [facility] Address [address] [place] [address] Care Team Providers Care Birth Certificate Clerk Name Role Phone Clare Kasper MD Primary Care Pro vider Reason for Visit * Reason Comments Eczema Alcohol Problem Pt stated he wanted to let dr know he has be drinking since and had a half beer this morning before coming into office Encounter Details Date Type Department Care Team (Late st Contact Info) Description 09/30/2022 8:45 AM HISTORICAL ARCHEOLOGIST Office Visit [facility] Primary Care [address] [facility] [address] [place] [address] Clare Kasper MD 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 Gender Identity Not on file Sexual Orientation Not on file documented as of this encounter Last Filed Vital Signs Vital Sign Reading Time Taken Comments Blood Pressure 122/82 09/30/2022 8:42 AM HISTORICAL ARCHEOLOGIST Pulse 78 09/30/2022 8:42 AM HISTORICAL ARCHEOLOGIST Temperature 36.5 ??C (97.7 ??F) 09/30/2022 8:42 AM CS T Respiratory Rate 18 09/30/2022 8:42 AM HISTORICAL ARCHEOLOGIST Oxygen Saturation 99% 09/30/2022 8:42 AM HISTORICAL ARCHEOLOGIST Inhaled Oxygen Concentration - - Weight 50.4 kg (111 lb 1.6 oz) 09/30/2022 8:42 A M HISTORICAL ARCHEOLOGIST Height 170.2 cm (5' 7 ) 09/30/2022 8:42 AM HISTORICAL ARCHEOLOGIST Body Mass Index 17.4 09/30/2022 8:42 AM HISTORICAL ARCHEOLOGIST documented in this encounter Patient Instructions * Attachments The following attachments cannot be sent through Care Everywhere. * Eczema (Labor Relations Representative) ([place]) * Alcohol Withdrawal (Labor Relations Representative) ([place]) documented in this encounter Ordered Prescriptions Prescription [...] appropriate judgment and insight Clare Kasper MD ORICAL ARCHEOLOGIST documented in this encounter Miscellaneous Notes * Assessment & Plan Note - Clare Kasper MD - 09/30/2022 9:02 AM CSTAssociated Problem(s): Alcohol use disorder No withdrawal symptoms currently Discussed I don't feel comfortable prescribing librium in outpatient setting given history of seizure withdrawal Strict return/ED precautions discussed ORICAL ARCHEOLOGIST documented in this encounter Plan of Treatment [...] plus p24 Antigen Blood (09/30/2022 9:42 AM HISTORICAL ARCHEOLOGIST) HIV 1/2 ab + p24 ag Nonreactive Nonreactive [facility] Comment: Nonreactive for HIV-1 antigen and HIV-1/HIV-2 antibodies. No laboratory evidence of HIV infection. If acute HIV infection is suspected, consider testing for HIV-1 RNA. Blood 09/30/2022 9:42 AM HISTORICAL ARCHEOLOGIST 09/30/2022 12:52 PM HISTORICAL ARCHEOLOGIST Clare Kasper MD LAB MICROBIOLOGY - GENERAL ORDERABLES Final Result Performing Organization Address City/State/ZIP Co mo Phone Number [facility] [place] [address] documented in this encounter Visit Diagnoses Diagnosis [...] documented as of this encounter Care Teams Birth Certificate Clerk Relationship Specialty Start Date End Date Clare Kasper MD PCP - General Family Medicine 07/27/22 documented as of this encounter
--- OUTSIDE RECORDS SUMMARY | 2024-11-07 16:33 | XMS_ITS | Encounter Summary ---
Author Organization [facility] Healthcare Address [address] [place] [address] Care Team Providers Care Field Operator Name Role Phone Teresita Painting MD Primary Care Prov ider Reason for Visit * Reason Onset Date Comments Letter for School/Work 03/13/2021 return to work on Tuesday, 03-16. 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 Pt # [phone] Rico Carrizales [phone] * Telephone Encounter - Teresita Painting MD [...] from work for the week. Rico Carrizales [phone] documented in this encounter Plan of Treatment [...] on filedocumented in this encounter Care Teams Field Operator Relationship Specialty Start Date End Date Teresita Painting MD PCP - General 10/25/19 04/17/21 documented as of this encounter
--- OUTSIDE RECORDS SUMMARY | 2024-11-07 16:33 | XMS_ITS | Encounter Summary ---
Author Organization [facility] Healthcare Address [address] [place] [address] Care Team Providers Care Customs And Immigration Officer Name Role Phone David Feliz MD Primary Care Provide r Reason for Visit * Reason Comments Follow-up Pain toothache, patient b roke tooth on left side Encounter Details Date Type Department Care Team (Late st Contact Info) Description 05/13/2021 1:30 PM CDT Office Visit [facility] Primary Care Medicine Clinic [address] [facility] [address] [place] [address] Nyla Bautista MD [address] [facility] [phone] [place] [address] Lionel Busby MD [address] [facility] [address] Open fracture of tooth, initial encounter (Primary [...] on file 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 If you don't hear from [facility] within a week call [phone] to arrange your colonoscopy. We are starting [...] not alreadyestablished with a dentist office: ??? [facility] [place]: Includes Urgent Care and Walk-in cases o [address] [place] [address] o [phone] ??? [facility] o [address], [place] [address] o ??? [facility] o [address] [place] [address] o documented in this encounter Ordered Prescriptions [...] Gatherings with Friends and Family: ??? Attends Confucianist Services: ??? Active Member of Clubs or [...] in about 3 months (around 08/13/2021). Lionel Bsuby MD 05/13/21 5:05 PM Cosigned by Vasu [...] documented as of this encounter Care Teams Customs And Immigration Officer Relationship Specialty Start Date End Date David Feliz MD PCP - General 04/18/21 07/26/22 documented as of this encounter
--- OUTSIDE RECORDS SUMMARY | 2024-11-07 16:33 | XMS_ITS | Encounter Summary ---
Author Organization [facility] Healthcare Address [address] [place] [address] Care Team Providers Care Grants Officer Name Role Phone David Felzi MD Primary Care Provide r Reason for Visit * Reason Onset Date Comments Podiatry Referral 06/17/2021 Encounter Details Date Type Department Care Team ([facility] Contact Info) Description 06/17/2021 Telephone [facility] [address] [place] [address] 4th [address] [place] [address] Cheryl Pickens Podiatry Referral Social History Tobacco Use Types Packs/Day Years Used Date Smoking Tobacco: Every Day Cigarettes Smokeless Tobacco: Never Comments:8 cigs a day Alcohol Use Standard Drinks/Week Comments Yes 0 (1 standard drink = 0.6 oz pur e alcohol) occasionally Sex and Gender Information Value Date Recorded Sex Assigned at Not on file 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
--- OUTSIDE RECORDS SUMMARY | 2024-11-07 16:33 | XMS_ITS | Encounter Summary ---
Author Organization [facility] Address [address] [place] [address] Phone Care Team Providers Care Plumbing Manager Name Role Phone David Feliz MD Primary Care Provide r Encounter Details Date Type Department Care Team (Late st Contact Info) Description 05/29/2021 Telephone [facility] Gastroenterology 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 Gender Identity Not on file Sexual [...] None ENDOCRINE: None PRIOR PROCEDURE ISSUES: None DIRECTOR OF AUDIOLOGY/: NA IMPLANTS.: None Notes: DIABETIC MEDS Y/N: [...] [] Location limitations: Scheduling Scheduling location limitations: Mumps Developer needed [] NA Language: POA [] NA Name: SPECIAL PROCEDURE INSTRUCTIONS Procedure information Date of procedure: 06/24/21 Time of procedure: 829 Arrival time: 729 Location: CAM Proceduralist: Dr Mccoy Instructions Method of instructions: Mailed copy [x]Confirmation of ride/superintendent storage area [x]Post anesthesia restrictions given [x]NPO Instructions: [x]Diet [...] 05/29/2021 documented in this encounter Care Teams Plumbing Manager Relationship Specialty Start Date End Date David Feliz MD PCP - General 04/18/21 07/26/22 documented as of this encounter
--- OUTSIDE RECORDS SUMMARY | 2024-11-07 16:33 | XMS_ITS | Encounter Summary ---
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 Gender Identity Not on file Sexual Orientation Not on file documented as of this encounter OR Notes * Anesthesia Postprocedure Evaluation - Yariel Macario MD - 06/24/2021 10:09 AM CDT Patient: Yariel Hill Procedure Summary Date: 06/24/21 Room / Location: [facility] ROOM 8 / [facility] Anesthesia Start: 908 Anesthesia Stop: 943 [...] * Anesthesia Preprocedure Evaluation - Melonie Massey, 7TH GRADE TEACHER - 06/24/2021 8:50 AM CDT Images from [...] Medication protocol when under care of a ATMOSPHERIC CHEMIST Planned anesthesia: MAC Induction: Induction: intravenous. Postoperative Plan: Patient's planned disposition post procedure is Outpatient. Informed Consent: Discussed plan with ATMOSPHERIC CHEMIST. Anesthesia plan and risks discussed with patient. [...] mL/hr documented in this encounter Care Teams Cooler Conveyor Loader Relationship Specialty Start Date End Date David Feliz MD PCP - General 04/18/21 07/26/22 documented as of this encounter
--- OUTSIDE RECORDS SUMMARY | 2024-11-07 16:33 | XMS_ITS | Encounter Summary ---
Author Organization [facility] Healthcare Address [address] [place] [address] Care Team Providers Care Asparagus Buncher Name Role Phone David Feliz MD Primary Care Provide r Encounter Details Date Type Department Care Team (Late st Contact Info) Description 06/24/2021 9:00 AM CDT - 06/24/2021 9:45 AM CDT Surgery [facility] [place] [address] [facility] [address] [place] [address] Noemi Mccoy MD [facility] [address] [place] [address] COLONOSCOPY cordova Surgery Details Date/Time Status Location OR Service Patient Class Case Class Case Type Trauma Case? 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 Room: [facility] ROOM 8 Note Status: Finalized [...] verified by the physician, the nurse, the diver tender and the construction equipment technician in the procedure room. Respiratory Examination: [...] bowel preparation was evaluated using the BBPS ([place] Bowel Preparation Scale) with scores of: Right [...] On: 06/24/2021 9:15 AM Recognized by the [employer] for promoting quality [...] Attending MD: Noemi Mccoy M.D. Room: [facility] ROOM 8 Note Status: Finalized [...] were verified by the physician,the nurse, the diver tender and the construction equipment technician in the procedure room. Respiratory Examination: [...] bowel preparation was evaluated using the BBPS ([place] Bowel Preparation Scale)with scores of: Right Colon [...] On: 06/24/2021 9:15 AM Recognized by the [employer] for promoting quality [...] 06/01 documented in this encounter Care Teams Asparagus Buncher Relationship Specialty Start Date End Date David Feliz MD PCP - General 04/18/21 07/26/22 documented as of this encounter
--- OUTSIDE RECORDS SUMMARY | 2024-11-07 16:33 | XMS_ITS | Encounter Summary ---
Author Organization [facility] Healthcare Address [address] [place] [address] Care Team Providers Care Crop Pest Control Specialist Name Role Phone Clare Kasper MD Primary Care Pro vider Encounter Details Date Type Department Care Team ([facility] Contact Info) Description 09/30/2022 9:35 AM ASSISTANT FACILITY MANAGER Lab [facility] Office Building [address] [address] Routine screening for STI (sexually transmitted infection) [...] on file Legal Sex Male 2:37 PM ASSISTANT FACILITY MANAGER Gender Identity Not on file Sexual [...] PLUS P24 ANTIGEN Routine 09/30/2022 9:42 AM ASSISTANT FACILITY MANAGER Routine screening for STI (sexually transmitted infection) documented in this encounter Results * HIV 1/2 Antibody plus p24 Antigen Blood (09/30/2022 9:42 AM ASSISTANT FACILITY MANAGER) HIV 1/2 ab + p24 ag Nonreactive Nonreactive [facility] GLOVER Comment: Nonreactive for HIV-1 antigen and HIV-1/HIV-2 antibodies. No laboratory evidence of HIV infection. If acute HIV infection is suspected, consider testing for HIV-1 RNA. Blood 09/30/2022 9:42 AM ASSISTANT FACILITY MANAGER 09/30/2022 12:52 PM ASSISTANT FACILITY MANAGER Clare Kasper MD LAB MICROBIOLOGY - GENERAL ORDERABLES Final Result [facility] [address] [facility] Department [place] [address] documented in this encounter Visit Diagnoses Diagnosis Routine screening for STI (sexually transmitted infection) Screening examination for venereal disease documented in this encounter Care Teams Crop Pest Control Specialist Relationship Specialty Start Date End Date Clare Kasper MD PCP - General Family Medicine 07/27/22 documented as of this encounter
--- OUTSIDE RECORDS SUMMARY | 2024-11-07 16:34 | XMS_ITS | Encounter Summary ---
Author Organization [facility] Healthcare Address [address] [place] [address] Care Team Providers Care Stone Gang Sawyer Name Role Phone Teresita Painting MD Primary Care Prov ider Encounter Details Date Type Department Care Team (Late st Contact Info) Description 2020 10:10 PM CDT Lab [address] [address] Pre-op testing Social History Tobacco Use Types Packs/Day Years Used Date Smoking Tobacco: Every Day Cigarettes Smokeless Tobacco: Never Comments:8 cigs a day Alcohol Use Standard Drinks/Week Comments Yes 0 (1 standard drink = 0.6 oz pur e alcohol) 4 tall boys a day Sex and Gender Information Value Date Recorded Sex Assigned at Not on file 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 The [...] O RDERABLES Final Result Performing Organization Address City/State/[facility] Co de Phone Number [facility] Department [place] [address] documented in this encounter Visit Diagnoses Diagnosis Pre-op testing Unspecified pre-operative examination documented in this encounter Care Teams Stone Gang Sawyer Relationship Specialty Start Date End Date Teresita Painting MD PCP - General 10/25/19 04/17/21 documented as of this encounter
--- OUTSIDE RECORDS SUMMARY | 2024-11-07 16:34 | XMS_ITS | Encounter Summary ---
Author Organization [facility] Healthcare Address [address] [place] [address] Care Team Providers Care Application Performance Engineer Name Role Phone Teresita Painting MD Primary Care Prov ider Encounter Details Date Type Department Care Team (Late st Contact Info) Description 04/02/2020 Orders Only Internal Medicine Teresita Painting MD [facility] [address] [place] [address] Social History Tobacco Use Types Packs/Day Years Used Date Smoking Tobacco: Every Day Cigarettes Smokeless Tobacco: Never Comments:8 cigs a day Alcohol Use Standard Drinks/Week Comments Yes 0 (1 standard drink = 0.6 oz pur e alcohol) 4 tall boys a day Sex and Gender Information Value Date Recorded Sex Assigned at Not on file 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
--- OUTSIDE RECORDS SUMMARY | 2024-11-07 16:34 | XMS_ITS | Encounter Summary ---
Author Organization [facility] Healthcare Address [address] [place] [address] Care Team Providers Care Senior Db2 Systems Programmer Name Role Phone Teresita Painting MD Primary Care Prov ider Teresita Painting MD Primary Care Prov ider Reason for Visit * Reason Comments PREP 05/14/2020 Encounter Details Date Type Department Care Team (Late st Contact Info) Description 07/10/2019 Telephone [facility] Specialty Services [address] [place] [phone] Azul Zhang RN PREP 05/14/2020 Social History Tobacco Use Types Packs/Day Years Used Date Smoking Tobacco: Every Day Cigarettes Smokeless Tobacco: Never Alcohol Use Standard Drinks/Week Comments Yes 0 (1 standard drink = 0.6 oz pur e alcohol) occas Sex and Gender Information Value Date Recorded Sex Assigned at Not on file Legal Sex Male 2:[address] COMMANDER Gender Identity Not on file Sexual Orientation [...] 05/01/2020 10:05 AM CDT Called [facility] in [place] and verified prescription. * Addendum Note - [...] till after procedure. Covid Testing on 2020, [facility]. Covid order in [facility]. * Telephone Encounter - Azul Zhang [...] be scheduled with sedation provided by the speech therapy teacher. This is called concious sedation and is [...] ??? Bowel prep choice:nulytely ??? Language preference: chinese Is an cyber incident handler needed: no ??? Special Instructions (i.e. needs [...] on filedocumented in this encounter Care Teams Senior Db2 Systems Programmer Relationship Specialty Start Date End Date Teresita Painting MD PCP - General Obstetrics and Gynecology 07/26/18 904/18 Teresita Painting MD PCP - General 10/25/19 04/17/21 documented as of this encounter
--- OUTSIDE RECORDS SUMMARY | 2024-11-07 16:34 | XMS_ITS | Encounter Summary ---
Author Organization [facility] Healthcare Address [address] [place] [address] Care Team Providers Care Wrapper Dipper Name Role Phone Teresita Painting MD Primary Care Prov ider Reason for Visit * Reason Comments Sore Throat Withdrawal Encounter Details Date Type Department Care Team (Late Contact Info) Description 12/08/2019 12:19 AM PROMOTIONS EXECUTIVE PRODUCER - 12/08/2019 1:54 AM PROMOTIONS EXECUTIVE PRODUCER Emergency [facility] [address] [place] [address] Vivi Falcon MD [address] [place] [address] Alcohol use (Primary Dx); Sinusitis, unspecified chronicity, [...] on file Legal Sex Male 2:37 PM PROMOTIONS EXECUTIVE PRODUCER Gender Identity Not on file Sexual Orientation Not on file documented as of this encounter Last Filed Vital Signs Vital Sign Reading Time Taken Comments Blood Pressure 115/74 12/08/2019 1:30 AM PROMOTIONS EXECUTIVE PRODUCER Pulse 66 12/08/2019 1:30 AM PROMOTIONS EXECUTIVE PRODUCER Temperature 36.2 ??C (97.2 ??F) 12/07/2019 10:[address] Respiratory Rate 16 12/08/2019 1:30 AM PROMOTIONS EXECUTIVE PRODUCER Oxygen Saturation 98% 12/08/2019 1:30 AM PROMOTIONS EXECUTIVE PRODUCER Inhaled Oxygen Concentration - - Weight 58.1 kg (128 lb) 12/07/2019 10:27 PM PROMOTIONS EXECUTIVE PRODUCER Height 170.2 cm (5' 7 ) 12/07/2019 10:27 PM PROMOTIONS EXECUTIVE PRODUCER Body Mass Index 20.05 12/07/2019 10:27 PM PROMOTIONS EXECUTIVE PRODUCER documented in this encounter Discharge Diagnoses Diagnosis [...] sent through Care Everywhere. * Alcohol Withdrawal (Front Desk Associate) (Liberian) documented in this encounter Medications at Time [...] resident's note. Vivi Falcon MD 12/08/19 0107 OTIONS EXECUTIVE PRODUCER * Yariel Perez MD PhD - 12/08/2019 [...] Alcohol use Sinusitis, unspecified chronicity, unspecified location Yairel Perez MD PhD Resident 12/08/[address] Cosigned by Vivi Falcon MD at 12/11/2019 6:07 AM PROMOTIONS EXECUTIVE PRODUCER OTIONS EXECUTIVE PRODUCER OTIONS EXECUTIVE PRODUCER * Kishore Tran RN - 12/08/2019 12:19 AM CST Bed: ED1-10 Expected date: Expected time: Means of arrival: On Foot Comments: Kishore Tran RN 12/08/19 0019 OTIONS EXECUTIVE PRODUCER * Kim Romero RN - 12/07/2019 10:27 PM CST Patient withdrawal from alcohol, tall boy of beers for about a month now, states he sometimes goes through DT's, last drink was 1400. Calm and cooperative. Sore throat for about three weeks now, productive cough. Denies sick contacts. Back of throat slightly reddened, no swollen lymph nodes. +nightsweats. OTIONS EXECUTIVE PRODUCER documented in this encounter Plan of Treatment [...] AND RSV PCR STAT 12/08/2019 12:28 AM PROMOTIONS EXECUTIVE PRODUCER XR CHEST PA LATERAL 2 VIEWS ED 12/07/2019 11:43 PM PROMOTIONS EXECUTIVE PRODUCER documented in this encounter Results * Influenza A/B and RSV PCR Nasopharyngeal (12/08/2019 12:28 AM PROMOTIONS EXECUTIVE PRODUCER) Influenza A RNA Not Detected Not Detected [facility] OROZCO Influenza B RNA Not Detected Not Detected [facility] OROZCO RSV RNA Not Detected Not Detected CRISTY OROZCO Comment: Interpretive Data Testing performed by [facility] ([phone]). This test is performed using the [employer] Xpert Flu/RSV Assay. ??This is a multiplex, real-time reverse transcriptase PCR assay that detects influenza A, influenza B,and respiratory syncytial virus RNA. ??This assay has been cleared by the [place] Food and Drug Administration, and its performance characteristics have been verified by the [facility]. Interpretive Data last revised 2019 Nasopharyngeal 12/08/2019 12 :28 AM PROMOTIONS EXECUTIVE PRODUCER 12/08/2019 12:37 AM PROMOTIONS EXECUTIVE PRODUCER Narrative [facility] - 12/08/2019 1:41 AM PROMOTIONS EXECUTIVE PRODUCER THE [facility] COLLECTION LOCATION IS Jabari Gandara MD LAB MICROBIOLOGY - GENERA L ORDERABLES Final Result [facility] [address] [facility] Department [place] [address] * XR Chest Pa Lateral 2 Vw (12/07/2019 11:43 PM PROMOTIONS EXECUTIVE PRODUCER) Anatomical Region Laterality Modality Body, Chest N/A Computed Radiogr aphy 12/08/2019 12:0 2 AM PROMOTIONS EXECUTIVE PRODUCER Impressions 12/08/2019 9:03 AM PROMOTIONS EXECUTIVE PRODUCER Comparison is made to prior radiograph 01/14/2015. ??The lungs are clear without pneumothorax or pleural effusion. ??The cardiomediastinal silhouette is within normal limits. Dictated by: Pedro Gallagher M.D. Ph.D. The radiology attending physician has personally reviewed this study, and had reviewed and/or edited this written report and agrees with it. Electronically signed by: Shilo Gonzalez M.D. Narrative 12/08/2019 9:03 AM PROMOTIONS EXECUTIVE PRODUCER EXAMINATION: XR CHEST PA LATERAL 2 VIEWS [...] 12/07/2019 documented in this encounter Care Teams Wrapper Dipper Relationship Specialty Start Date End Date Teresita Painting MD PCP - General 10/25/19 04/17/21 documented as of this encounter
--- OUTSIDE RECORDS SUMMARY | 2024-11-07 16:34 | XMS_ITS | Encounter Summary ---
Author Organization [facility] Healthcare Address [address] [place] [address] Care Team Providers Care Chocolate Packer Name Role Phone Teresita Painting MD Primary Care Prov ider Reason for Visit * Reason Onset Date Comments Med Refill 04/02/2020 Encounter Details Date Type Department Care Team (Late st Contact Info) Description 04/02/2020 Telephone [facility] Primary Care Medicine Clinic [address] [facility] [address] [place] [address] Teresita Painting MD [address] [facility] [address] [place], [place] [id number] Med Refill Social History Tobacco Use Types Packs/Day Years Used Date Smoking Tobacco: Every Day Cigarettes Smokeless Tobacco: Never Comments:8 cigs a day Alcohol Use Standard Drinks/Week Comments Yes 0 (1 standard drink = 0.6 oz pur e alcohol) 4 tall boys a day Sex and Gender Information Value Date Recorded Sex Assigned at Not on file 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 Patient is requesting a new script for Vit D. He said you put it in your notes in 2018 but it was never called into pharmacy. Thanks, Rico [phone] documented in this encounter Plan of Treatment [...] on filedocumented in this encounter Care Teams Chocolate Packer Relationship Specialty Start Date End Date Teresita Paniting MD PCP - General 10/25/19 04/17/21 documented as of this encounter
--- OUTSIDE RECORDS SUMMARY | 2024-11-07 16:34 | XMS_ITS | Encounter Summary ---
Author Organization [facility] Healthcare Address [address] [place] [address] Care Team Providers Care Screed Operator Name Role Phone Teresita Painting MD Primary Care Prov ider Encounter Details Date Type Department Care Team (Latest Contact Info) Description 12/07/2019 11:40 PM RN GYN - 12/07/2019 11:59 PM RN GYN Hospital Encounter [facility] Radiology [address] [place] [address] Jabari Gandara MD [address] [facility] [address] [place] [address] Discharge Disposition: Discharge to home or self [...] on file Legal Sex Male 2:37 PM RN GYN Gender Identity Not on file Sexual Orientation [...] LATERAL 2 VIEWS ED 12/07/2019 11:43 PM RN GYN documented in this encounter Results * XR Chest Pa Lateral 2 Vw (12/07/2019 11:43 PM RN GYN) Anatomical Region Laterality Modality Body, Chest N/A Computed Radiogr aphy 12/08/2019 12:0 2 AM RN GYN Impressions 12/08/2019 9:03 AM RN GYN Comparison is made to prior radiograph 01/14/2015. ??The lungs are clear without pneumothorax or pleural effusion. ??The cardiomediastinal silhouette is within normal limits. Dictated by: Pedro Gallagher M.D. Ph.D. The radiology attending physician has personally reviewed this study, and had reviewed and/or edited this written report and agrees with it. Electronically signed by: Shilo Gonzalez M.D. Narrative 12/08/2019 9:03 AM RN GYN EXAMINATION: XR CHEST PA LATERAL 2 VIEWS [...] Electronically signed by: Shilo Gonzalez M.D. Vivi aFlcon MD IMG XR PROCEDURES Final Resu lt documented in this encounter Visit Diagnoses Not on filedocumented in this encounter Care Teams Screed Operator Relationship Specialty Start Date End Date Teresita Painting MD PCP - General 10/25/19 04/17/21 documented as of this encounter
--- OUTSIDE RECORDS SUMMARY | 2024-11-07 16:34 | XMS_ITS | Encounter Summary ---
Author Organization [facility] Healthcare Address [address] [place] [address] Care Team Providers Care Software Configuration Specialist Name Role Phone Teresita Painting MD Primary Care Prov ider Encounter Details Date Type Department Care Team (Late st Contact Info) Description 10/05/2018 3:15 PM ATHLETIC DIRECTOR Lab [facility]patient [facility] [address] [facility] [place] [address] Christiano Heller MD [address] [facility] [address] [place] [address] Anemia, unspecified type Discharge Disposition: Discharge to home or self care Social History Tobacco Use Types Packs/Day Years Used Date Smoking Tobacco: Every Day Cigarettes Smokeless Tobacco: Never Alcohol Use Standard Drinks/Week Comments Yes 0 (1 standard drink = 0.6 oz pur e alcohol) Sex and Gender Information Value Date Recorded Sex Assigned at Not on file Legal Sex Male 2:37 PM ATHLETIC DIRECTOR Gender Identity Not on file Sexual [...] DIFFERENTIAL AUTO Routine 10/05/2018 3:1 1 PM ATHLETIC DIRECTOR Anemia, unspecified type CBC WITH AUTO DIFFERENTIAL Routine 10/05/2018 3:11 PM ATHLETIC DIRECTOR Anemia, unspecified type documented in this encounter Results * Differential, auto (10/05/2018 3:11 PM ATHLETIC DIRECTOR) Neutrophil abs 4.7 1.7 - 6.5 K/cumm [facility] Imm gran abs 0.0 0.0 - 0.1 K/cumm [facility] Lymphocyte abs 2.6 0.8 - 3.3 K/cumm [facility] Monocyte abs 0.6 0.2 - 0.8 K/cumm [facility] Eosinophil abs 0.3 0.0 - 0.5 K/cumm [facility] Basophil abs 0.0 0.0 - 0.1 K/cumm [facility] Neutrophil pct 57.1 % [facility] Comment: Interpretive Data Percent cell count reference ranges are not reported, since discordance with absolute values may lead to misinterpretation of CBC data. Current Interpretive Data was last revised on 2018. Imm gran pct 0.2 % [facility] Comment: Interpretive Data Percent cell count reference ranges are not reported, since discordance with absolute values may lead to misinterpretation of CBC data. Current Interpretive Data was last revised on 2018. Lymphocyte pct 31.1 % [facility] Comment: Interpretive Data Percent cell count reference ranges are not reported, since discordance with absolute values may lead to misinterpretation of CBC data. Current Interpretive Data was last revised on 2018. Monocyte pct 7.6 % [facility] Comment: Interpretive Data Percent cell count reference ranges are not reported, since discordance with absolute values may lead to misinterpretation of CBC data. Current Interpretive Data was last revised on 2018. Eosinophil pct 3.6 % [facility] Comment: Interpretive Data Percent cell count reference ranges are not reported, since discordance with absolute values may lead to misinterpretation of CBC data. Current Interpretive Data was last revised on 2018. Basophil pct 0.4 % [facility] Comment: Interpretive Data Percent cell count reference ranges are not reported, since discordance with absolute values may lead to misinterpretation of CBC data. Current Interpretive Data was last revised on 2018. Blood specimen (specimen) 10/05/2018 3:11 PM ATHLETIC DIRECTOR 10/05/2018 4:12 PM ATHLETIC DIRECTOR Narrative [facility] - 10/05/2018 4:25 PM ATHLETIC DIRECTOR Christiano Heller MD LAB BLOOD ORDERABLES Carrie khanna Result [facility] Department [place] [address] * (ABNORMAL) CBC with auto differential (10/05/2018 3:11 PM ATHLETIC DIRECTOR) WBC 8.3 3.8 - 9.9 K/cumm [facility] Hgb 14.3 13.0 - 17.5 g/dL [facility] Hct 43.4 38.9 - 50.3 % [facility] Plt 202 150 - 400 K/cumm [facility] MPV 9.7 9.1 - 12.3 fL [facility] RBC 4.55 4.30 - 5.80 M/cumm [facility] MCV 95.4 81.3 - 96.4 fL [facility] MCH 31.4 27.1 - 33.3 pg [facility] MCHC 32.9 32.3 - 35.7 g/dL [facility] RDW CV 13.8 11.1 - 14.9 % [facility] RDW SD 48.6(H) 35.7 - 48.1 fL [facility] NRBC abs 0.00 0.00 - 0.01 K/cumm [facility] Blood specimen (specimen) 10/05/2018 3:11 PM ATHLETIC DIRECTOR 10/05/2018 4:12 PM ATHLETIC DIRECTOR Narrative [facility] - 10/05/2018 4:25 PM ATHLETIC DIRECTOR us Christiano Heller MD LAB BLOOD ORDERABLES Carrie khanna Result [facility] Department [place] [address] documented in this encounter Visit Diagnoses Diagnosis Anemia, unspecified type documented in this encounter Care Teams Software Configuration Specialist Relationship Specialty Start Date End Date Teresita Painting MD PCP - General Obstetrics and Gynecology 07/26/18 904/18 documented as of this encounter
--- OUTSIDE RECORDS SUMMARY | 2024-11-07 16:34 | XMS_ITS | Encounter Summary ---
Author Organization [facility] Healthcare Address [address] [place] [address] Care Team Providers Care Chronograph Operator Name Role Phone Teresita Painting MD Primary Care Prov ider Encounter Details Date Type Department Care Team (Latest Contact Info) Description 05/14/2020 9:02 AM CDT - 05/14/2020 1:14 PM CDT Hospital Encounter 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 Room: [facility] ENDOSCOPY ROOM 4 Note Status: [...] verified by the physician, the nurse, the optical technician and the budget technician in the procedure room. Respiratory Examination: [...] was passed under direct vision. The CF [id number] endoscope was introduced through the anus and advanced to the cecum, identified by appendiceal orifice and ileocecal valve. The colonoscopy was performed without difficulty. The patient tolerated the procedure well. The quality of the bowel preparation was adequate to identify polyps 6 mm and larger in size. The quality of the bowel preparation was evaluated using the BBPS (Balfour Bowel Preparation Scale) with scores of: Right [...] On: 05/14/2020 11:03 AM Recognized by the [employer] for promoting quality [...] 11:28 AM CDT Narrative PATHOLOGY [facility] - 05/15/2020 10:42 AM CDT [facility] results best viewed via link to PDF [facility] [place] [address] SURGICAL PATHOLOGY REPORT FINAL Patient Name: ?? YARIEL HILL Gender: ??M : ??1970 (Age: 50) Address: ??[address] [place] [id number] Hospital #: ??[id number] Taken:05/14/2020 Received:05/14/2020 Reported: 05/15/2020 Patient Type: BJ SDS ?? Service: Gastro Location: [facility] Physician(s): ??Noemi Mccoy M.D. Teresita Painting M.D. [...] and/05/14/2020 13:49 PA(s): Consuelo Martino MS, PA ([facility]) By this signature, I attest that the above diagnosis is based upon my personal examination of the slides(and/or other material). Addenda/Procedures The performance characteristics of some immunohistochemical stains, fluorescence in-situ hybridization tests and immunophenotyping by flow cytometry cited in this report (if any) were determined by the Surgical Pathology Department at [facility] as part of an ongoing food quality technician program and in compliance with federally mandated [...] determined by the Surgical Pathology Department of [facility]. ??It has not been cleared or approved by the U. S. Food and Drug Administration. IMAGES AND SCANNED DOCUMENTS, IF INCLUDED, ONLY VIEWABLE IN PDF VERSION OF REPORT us Noemi Mccoy MD LAB PATHOLOGY ORDERABLES Fin al Result [facility] 3rd Floor [place], [place] [phone] * COLONOSCOPY (05/14/2020 11:03 AM CDT) Anatomical Region Laterality Modality Other Narrative Procedure Note Noemi Mccoy MD - 05/14/2020 11:03 AM CDT [facility] Patient Name: Yariel Hill Procedure Date: 05/14/2020 11:03 AM Date of : 1970 Admit Type: Outpatient Age: 50 Gender: Male Attending MD: Noemi Mccoy M.D. Room: [facility] ENDOSCOPY ROOM 4 Note Status: [...] were verified by the physician,the nurse, the optical technician and the budget technician in the procedure room. Respiratory Examination: [...] The scope was passed under direct vision.The [id number] endoscope was introduced throughthe anus and [...] On: 05/14/2020 11:03 AM Recognized by the [employer] for promoting quality [...] 04/30 documented in this encounter Care Teams Chronograph Operator Relationship Specialty Start Date End Date Teresita Painting MD PCP - General 10/25/19 04/17/21 documented as of this encounter
--- OUTSIDE RECORDS SUMMARY | 2024-11-07 16:34 | XMS_ITS | Encounter Summary ---
Author Organization [facility] Healthcare Address [address] [place] [address] Care Team Providers Care Social Research Assistant Name Role Phone Teresita Painting MD Primary Care Prov ider Encounter Details Date Type Department Care Team (Late st Contact Info) Description 07/06/2019 3:40 PM CDT Lab 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 This assay detects Chlamydia [...] revised on 2018. Source- Genital, Urine Urine [facility] Urine 07/06/2019 5:02 PM CDT 07/06/2019 6:51 PM CDT us Christiano Heller MD LAB MICROBIOLOGY - GENERA L ORDERABLES Final Result [facility] [place] [address] [place] [address] * Differential, auto (07/06/2019 3:47 PM CDT) Neutrophil abs 4.5 1.7 - 6.5 K/cumm [facility] Imm gran abs 0.0 0.0 - 0.1 K/cumm [facility] Lymphocyte abs 2.5 0.8 - 3.3 K/cumm [facility] Monocyte abs 0.7 0.2 - 0.8 K/cumm [facility] Eosinophil abs 0.4 0.0 - 0.5 K/cumm [facility] Basophil abs 0.1 0.0 - 0.1 K/cumm [facility] Neutrophil pct 55.5 % [facility] Comment: Interpretive Data Percent cell count reference ranges are not reported, since discordance with absolute values may lead to misinterpretation of CBC data. Current Interpretive Data was last revised on 2018. Imm gran pct 0.2 % [facility] Comment: Interpretive Data Percent cell count reference ranges are not reported, since discordance with absolute values may lead to misinterpretation of CBC data. Current Interpretive Data was last revised on 2018. Lymphocyte pct 30.4 % [facility] Comment: Interpretive Data Percent cell count reference ranges are not reported, since discordance with absolute values may lead to misinterpretation of CBC data. Current Interpretive Data was last revised on 2018. Monocyte pct 8.3 % [facility] Comment: Interpretive Data Percent cell count reference ranges are not reported, since discordance with absolute values may lead to misinterpretation of CBC data. Current Interpretive Data was last revised on 2018. Eosinophil pct 4.9 % [facility] Comment: Interpretive Data Percent cell count reference ranges are not reported, since discordance with absolute values may lead to misinterpretation of CBC data. Current Interpretive Data was last revised on 2018. Basophil pct 0.7 % [facility] Comment: Interpretive Data Percent cell count reference ranges are not reported, since discordance with absolute values may lead to misinterpretation of CBC data. Current Interpretive Data was last revised on 2018. Blood specimen (specimen) 07/06/2019 3:47 PM CDT 07/06/2019 4:05 PM CDT Christiano Heller MD LAB BLOOD ORDERABLES Carrie khanna Result [facility] [address] [place] [address] * (ABNORMAL) Lipid panel (07/06/2019 3:47 PM CDT) Cholesterol 204(H) 30 - 199 mg/dL [facility] Comment: Interpretive Data Ages < or = [...] revised on 2018. Triglycerides 101 <=149 mg/dL [facility] Comment: Interpretive Data Ages < or [...] revised on 2018. HDL 69 >=40 mg/dL [facility] Comment: Interpretive Data Ages < or [...] on 2018. LDL, calculated 115 <=129 mg/dL [facility] Comment: Interpretive Data Ages < or [...] revised on 2018. Non-HDL Cholesterol 136 mg/dL [facility] Comment: Interpretive Data Ages < or [...] last revised on 2018. Chol/HDL ratio 3 [facility] Blood specimen (specimen) 07/06/2019 3:47 PM CDT 07/06/2019 4:05 PM CDT us Christiano Heller MD LAB BLOOD ORDERABLES Carrie khanna Result [facility] [address] [place] [address] * (ABNORMAL) Vitamin D 25 hydroxy (07/06/2019 3:47 PM CDT) Vitamin D 25-OH 16(L) 30 - 80 ng/mL [facility] Blood specimen (specimen) 07/06/2019 3:47 PM CDT 07/06/2019 4:05 PM CDT Christiano Heller MD LAB BLOOD ORDERABLES Carrie l Result Performing Organization Address [facility] de Phone Number [address] [address] * HIV 1/2 Antibody plus p24 Antigen (07/06/2019 3:47 PM CDT) [facility] HIV 1/2 ab + p24 ag Nonreactive Nonreactive [facility] Comment: Nonreactive for HIV-1 antigen and HIV-1/HIV-2 antibodies. No laboratory evidence of HIV infection. If acute HIV infection is suspected, consider testing for HIV-1 RNA. Blood specimen (specimen) 07/06/2019 3:47 PM CDT 07/06/2019 4:05 PM CDT Christiano Heller MD LAB MICROBIOLOGY - GENERA L ORDERABLES Final Result Performing Organization Address [facility] de Phone Number [address] [address] * RPR (07/06/2019 3:47 PM CDT) [facility] RPR Nonreactive Nonreactive [facility] Blood specimen (specimen) 07/06/2019 3:47 PM CDT 07/06/2019 4:05 PM CDT Christiano Heller MD LAB MICROBIOLOGY - GENERA L ORDERABLES Final Result Performing Organization Address [facility] de Phone Number [address] [address] * CBC with auto differential (07/06/2019 3:47 PM CDT) [facility] WBC 8.2 3.8 - 9.9 K/cumm [facility] Hgb 15.3 13.0 - 17.5 g/dL [facility] Hct 44.3 38.9 - 50.3 % [facility] Plt 236 150 - 400 K/cumm [facility] MPV 9.6 9.1 - 12.3 fL [facility] RBC 4.82 4.30 - 5.80 M/cumm [facility] MCV 91.9 81.3 - 96.4 fL [facility] MCH 31.7 27.1 - 33.3 pg [facility] MCHC 34.5 32.3 - 35.7 g/dL [facility] RDW CV 12.0 11.1 - 14.9 % [facility] RDW SD 40.3 35.7 - 48.1 fL [facility] NRBC abs 0.00 0.00 - 0.01 K/cumm [facility] Blood specimen (specimen) 07/06/2019 3:47 PM CDT 07/06/2019 4:05 PM CDT Christiano Heller MD LAB BLOOD ORDERABLES Carrie l Result [facility] [address] [place] [address] documented in this encounter Visit Diagnoses Diagnosis Healthcare maintenance Vitamin D deficiency documented in this encounter Care Teams Social Research Assistant Relationship Specialty Start Date End Date Teresita Painting MD PCP - General Obstetrics and Gynecology 07/26/18 9/04/18 documented as of this encounter
--- OUTSIDE RECORDS SUMMARY | 2024-11-07 16:34 | XMS_ITS | Encounter Summary ---
Author Organization [facility] Address [address] [place] [address] Phone Care Team Providers Care Administrative Law Judge Name Role Phone Teresita Painting MD Primary Care Prov ider Encounter Details Date Type Department Care Team (Late st Contact Info) Description 05/21/2020 Telephone [facility]ology [address] [facility] 8th [place] [address] [place] [phone] Beckie Gustafson Social History Tobacco Use Types Packs/Day Years Used Date Smoking Tobacco: Every Day Cigarettes Smokeless Tobacco: Never Comments:8 cigs a day Alcohol Use Standard Drinks/Week Comments Yes 0 (1 standard drink = 0.6 oz pur e alcohol) occasionally Sex and Gender Information Value Date Recorded Sex Assigned at Not on file 

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
--- OUTSIDE RECORDS SUMMARY | 2024-11-07 16:34 | XMS_ITS | Encounter Summary ---
Author Organization [facility] Address [address] [place] [address] Phone Care Team Providers Care Older Adult Social Work Specialist Name Role Phone Teresita Painting MD Primary Care Prov ider Encounter Details Date Type Department Care Team (Late st Contact Info) Description 05/21/2020 Documentation [facility] [address] [facility] 8th [place] [address] [place] [phone] Beckie Gustafson Social History Tobacco Use Types Packs/Day Years Used Date Smoking Tobacco: Every Day Cigarettes Smokeless Tobacco: Never Comments:8 cigs a day Alcohol Use Standard Drinks/Week Comments Yes 0 (1 standard drink = 0.6 oz pur e alcohol) occasionally Sex and Gender Information Value Date Recorded Sex Assigned at Not on file 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
--- OUTSIDE RECORDS SUMMARY | 2024-11-07 16:34 | XMS_ITS | Encounter Summary ---
Author Organization [facility] Healthcare Address [address] [place] [address] Care Team Providers Care Technician Telecommunication Systems Name Role Phone Teresita Painting MD Primary Care Prov ider Encounter Details Date Type Department Care Team (Late st Contact Info) Description 06/18/2020 4:40 PM CDT Lab [facility] [address] [place] [address] [place] [address] Healthcare maintenance; Essential hypertension Social History Tobacco Use Types Packs/Day Years Used Date Smoking Tobacco: Every Day Cigarettes Smokeless Tobacco: Never Comments:8 cigs a day Alcohol Use Standard Drinks/Week Comments Yes 0 (1 standard drink = 0.6 oz pur e alcohol) occasionally Sex and Gender Information Value Date Recorded Sex Assigned at Not on file 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 Current Interpretive Data was last revised on 2018. Imm gran pct 0.3 % [facility] Comment: Interpretive Data Percent cell count reference ranges are not reported, since discordance with absolute values may lead to misinterpretation of CBC data. Current Interpretive Data was last revised on 2018. Lymphocyte pct 27.3 % [facility] Comment: Interpretive Data Percent cell count reference ranges are not reported, since discordance with absolute values may lead to misinterpretation of CBC data. Current Interpretive Data was last revised on 2018. Monocyte pct 6.7 % [facility] Comment: Interpretive Data Percent cell count reference ranges are not reported, since discordance with absolute values may lead to misinterpretation of CBC data. Current Interpretive Data was last revised on 2018. Eosinophil pct 2.4 % [facility] Comment: Interpretive Data Percent cell count reference ranges are not reported, since discordance with absolute values may lead to misinterpretation of CBC data. Current Interpretive Data was last revised on 2018. Basophil pct 0.7 % [facility] Comment: Interpretive Data Percent cell count reference ranges are not reported, since discordance with absolute values may lead to misinterpretation of CBC data. Current Interpretive Data was last revised on 2018. Blood specimen (specimen) 06/18/2020 4:46 PM CDT 06/18/2020 5:13 PM CDT us Francisco Goodson MD LAB BLOOD ORDERABLES Final Result [facility] [place] [address] * (ABNORMAL) CBC with auto differential (06/18/2020 4:46 PM CDT) [facility] WBC 7.1 3.8 - 9.9 K/cumm [facility] Hgb 13.7 13.0 - 17.5 g/dL [facility] Hct 41.1 38.9 - 50.3 % [facility] Plt 126(L) 150 - 400 K/cumm [facility] MPV 10.3 9.1 - 12.3 fL [facility] RBC 4.32 4.30 - 5.80 M/cumm [facility] MCV 95.1 81.3 - 96.4 fL [facility] MCH 31.7 27.1 - 33.3 pg [facility] MCHC 33.3 32.3 - 35.7 g/dL [facility] RDW CV 13.7 11.1 - 14.9 % [facility] RDW SD 48.7(H) 35.7 - 48.1 fL [facility] NRBC abs 0.00 0.00 - 0.01 K/cumm [facility] Blood specimen (specimen) 06/18/2020 4:46 PM CDT 06/18/2020 5:13 PM CDT Francisco Goodson MD LAB BLOOD ORDERABLES Final Result [facility] [place] [address] * Comprehensive metabolic panel (06/18/2020 4:46 PM CDT) [facility] Sodium 139 135 - 145 mmol/L [facility] Potassium, pl 4.4 3.3 - 4.9 mmol/L [facility] Chloride 102 97 - 110 mmol/L [facility] CO2 28 22 - 32 mmol/L [facility] Anion gap 9 2 - 15 mmol/L [facility] BUN 11 8 - 25 mg/dL [facility] Creatinine 1.01 0.80 - 1.30 mg/dL [facility] Glucose 72 70 - 199 mg/dL [facility] Comment: Interpretive Data Fasting glucose [...] Calcium 9.5 8.5 - 10.3 mg/dL [facility] Bilirubin, total 0.5 0.1 - 1.2 mg/dL [facility] Protein, pl 7.5 6.5 - 8.5 g/dL [facility] Albumin 4.8 3.5 - 5.0 g/dL [facility] Alk phos 48 40 - 130 Units/L [facility] ALT 17 7 - 55 Units/L [facility] AST 28 10 - 50 Units/L [facility] Blood specimen (specimen) 06/18/2020 4:46 PM CDT 06/18/2020 5:13 PM CDT Francisco Goodson MD LAB BLOOD ORDERABLES Final Result [facility] [place] [address] * Hemoglobin A1c (06/18/2020 4:46 PM CDT) Hgb A1C 4.9 4.0 - 5.6 % [facility] Estimated Average Glucose 94 mg/dL [facility] Comment: The ADA recommends reporting an estimated Average Glucose (eAG) with all Hemoglobin A1c results using the equation derived from a study of 507 normal and diabetic adults. ??Minority populations were underrepresented and children were not included. ?? (Diabetes Care 31:0313-2271, 2008). ??The eAG is not equivalent to a fasting glucose. Blood specimen (specimen) 06/18/2020 4:46 PM CDT 06/18/2020 5:13 PM CDT Francisco Goodson MD LAB BLOOD ORDERABLES Final Result Performing Organization Address [facility] [place] [address] * HIV 1/2 Antibody plus p24 Antigen (06/18/2020 4:46 PM CDT) HIV 1/2 ab + p24 ag Nonreactive Nonreactive [facility] Comment: Nonreactive for HIV-1 antigen and HIV-1/HIV-2 antibodies. No laboratory evidence of HIV infection. If acute HIV infection is suspected, consider testing for HIV-1 RNA. Blood specimen (specimen) 06/18/2020 4:46 PM CDT 06/18/2020 5:13 PM CDT Francisco Goodson MD LAB MICROBIOLOGY - GENERAL ORDERABLES Final Result Performing Organization Address [facility] de Phone Number [facility] [place] [address] * Lipid panel (06/18/2020 4:46 PM CDT) [...] on 2018. HDL 76 >=40 mg/dL [facility] Comment: Interpretive Data Ages < [...] 2018. LDL, calculated 79 <=129 mg/dL [facility] Comment: Interpretive Data Ages < or [...] PM CDT 06/18/2020 5:13 PM CDT us Francsico Goodson MD LAB BLOOD ORDERABLES Final Result Performing Organization Address City/State/[facility] Co de Phone Number [facility] Department [place] [address] documented in this encounter Visit Diagnoses Diagnosis Healthcare maintenance Essential hypertension Unspecified essential hypertension documented in this encounter Care Teams Technician Telecommunication Systems Relationship Specialty Start Date End Date Teresita Painting MD PCP - General 10/25/19 04/17/21 documented as of this encounter
--- OUTSIDE RECORDS SUMMARY | 2024-11-07 16:34 | XMS_ITS | Encounter Summary ---
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 The 2019-Novel Coronavirus [...] CDT 05/13/2020 12:17 AM CDT Narrative [facility] - 05/13/2020 12:01 PM CDT Is the patient experiencing any symptoms consistent with COVID (eg. Fever, cough, shortness of breath)?->No What is the reason for testing?->Screening prior to scheduled (>12 hr) surgery or procedure us Noemi Mccoy MD LAB MICROBIOLOGY - GENERAL O RDERABLES Final Result [facility] Department [place] [address] documented in this encounter Visit Diagnoses Diagnosis Pre-op testing- Primary Unspecified pre-operative examination Pre-op testing Unspecified pre-operative examination documented in this encounter Care Teams Pain Coordinator Relationship Specialty Start Date End Date Teresita Painting MD PCP - General 10/25/19 04/17/21 documented as of this encounter
--- OUTSIDE RECORDS SUMMARY | 2024-11-07 16:34 | XMS_ITS | Encounter Summary ---
Author Organization [facility] Healthcare Address [address] [place] [address] Care Team Providers Care Operation Specialist Name Role Phone Teresita Painting MD Primary Care Prov ider Encounter Details Date Type Department Care Team (Late st Contact Info) Description 05/14/2020 10:59 AM CDT Anesthesia Event [facility] [place] [address] [facility] [address] [place] [address] Regine Fernandez MD PhD [address] [place] [address] Yariel Ceron, OCTAVIA [address] [place] [address] Anesthesia Record Procedure Summary Procedure Name Responsible [...] on file 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 Gender Identity Not on file Sexual Orientation Not on file documented as of this encounter OR Notes * Anesthesia Postprocedure Evaluation - Melonie Massey MLT - 05/14/2020 12:28 PM CDT Patient: Yariel Hill Procedure Summary Date: 05/14/20 Room / Location: [facility]COPY ROOM 4 / [facility] Anesthesia Start: 1059 Anesthesia Stop: 115 Procedure: COLON BIOPSY (N/A Colon) Diagnosis: Healthcare maintenance (Healthcare maintenance [Z00.00]) Provider: Noemi Mccoy MD Responsible Provider: Regine Fenrandez MD PhD Anesthesia Type: MAC ASA Status: [...] Medication protocol when under care of a PUBLIC SPEAKING COACH Planned anesthesia: MAC Induction: Induction: intravenous. Postoperative Plan: Patient's planned disposition post procedure is Outpatient. Informed Consent: Discussed plan with PUBLIC SPEAKING COACH. Anesthesia plan and risks discussed with patient. [...] mL/hr documented in this encounter Care Teams Operation Specialist Relationship Specialty Start Date End Date Teresita Painting MD PCP - General 10/25/19 04/17/21 documented as of this encounter
--- OUTSIDE RECORDS SUMMARY | 2024-11-07 16:34 | XMS_ITS | Encounter Summary ---
Author Organization [facility] Healthcare Address [address] [place] [address] Care Team Providers Care Test Desk Supervisor Name Role Phone Teresita Painting MD Primary Care Prov ider Reason for Visit * Reason Comments Follow-up Encounter Details Date Type Department Care Team (Late st Contact Info) Description 07/06/2019 2:15 PM CDT Office Visit [facility] Primary Care Medicine Clinic [address] [facility] Outpatient Health [address] [place], [place] [id number] Christiano Heller MD [address] [facility] [address] [place] [address] Teresita Painting MD [address] [facility] [address] [place] [address] Essential hypertension (Primary Dx); Vitamin D deficiency; [...] on file 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 trachomatis Not Detected Not Detected [facility] N. gonorrhoeae Not Detected Not Detected [facility] Comment: Interpretive Data Testing performed by the [facility] Laboratory. This assay detects Chlamydia trachomatis [...] on 2018. Source- Genital, Urine Urine [facility] Urine 07/06/2019 5:02 PM CDT 07/06/2019 6:51 PM CDT us Christiano Heller MD LAB MICROBIOLOGY - GENERA L ORDERABLES Final Result [facility] [address] [place] [address] * CBC with auto differential (07/06/2019 3:47 PM CDT) WBC 8.2 3.8 - 9.9 K/cumm [facility] Hgb 15.3 13.0 - 17.5 g/dL [facility] Hct 44.3 38.9 - 50.3 % [facility] Plt 236 150 - 400 K/cumm [facility] MPV 9.6 9.1 - 12.3 fL [facility] RBC 4.82 4.30 - 5.80 M/cumm [facility] MCV 91.9 81.3 - 96.4 fL [facility] MCH 31.7 27.1 - 33.3 pg [facility] MCHC 34.5 32.3 - 35.7 g/dL [facility] RDW CV 12.0 11.1 - 14.9 % [facility] RDW SD 40.3 35.7 - 48.1 fL [facility] NRBC abs 0.00 0.00 - 0.01 K/cumm [facility] Blood specimen (specimen) 07/06/2019 3:47 PM CDT 07/06/2019 4:05 PM CDT Christiano Heller MD LAB BLOOD ORDERABLES Carrie l Result Performing Organization Address City/[facility]/ZIP Co de Phone Number [address] [phone] * RPR (07/06/2019 3:47 PM CDT) RPR Nonreactive Nonreactive [facility] Blood specimen (specimen) 07/06/2019 3:47 PM CDT 07/06/2019 4:05 PM CDT Christiano Heller MD LAB MICROBIOLOGY - GENERA L ORDERABLES Final Result Performing Organization Address [facility]/ZIP Co de Phone Number [address] [address] * HIV 1/2 Antibody plus p24 Antigen (07/06/2019 3:47 PM CDT) Pathologist [facility] HIV 1/2 ab + p24 ag Nonreactive Nonreactive [facility] Comment: Nonreactive for HIV-1 antigen and HIV-1/HIV-2 antibodies. No laboratory evidence of HIV infection. If acute HIV infection is suspected, consider testing for HIV-1 RNA. Blood specimen (specimen) 07/06/2019 3:47 PM CDT 07/06/2019 4:05 PM CDT Christiano Heller MD LAB MICROBIOLOGY - GENERA L ORDERABLES Final Result Performing Organization Address [facility] de Phone Number [address] [address] * (ABNORMAL) Vitamin D 25 hydroxy (07/06/2019 3:47 PM CDT) Vitamin D 25-OH 16(L) 30 - 80 ng/mL [facility] Blood specimen (specimen) 07/06/2019 3:47 PM CDT 07/06/2019 4:05 PM CDT Christiano Heller MD LAB BLOOD ORDERABLES Carrie l Result Performing Organization Address [facility] Phone Number [address] [address] * (ABNORMAL) Lipid panel (07/06/2019 3:47 PM CDT) Cholesterol 204(H) 30 - 199 mg/dL [facility] Comment: Interpretive Data Ages < or [...] revised on 2018. Triglycerides 101 <=149 mg/dL [facility] Comment: Interpretive Data Ages < or [...] revised on 2018. HDL 69 >=40 mg/dL [facility] Comment: Interpretive Data Ages < or [...] on 2018. LDL, calculated 115 <=129 mg/dL [facility] Comment: Interpretive Data Ages < or [...] LAB BLOOD ORDERABLES Carrie khanna Result [facility] [address] [place] [address] documented in this encounter Visit Diagnoses Diagnosis Essential hypertension- Primary Unspecified essential hypertension Vitamin D deficiency Seasonal allergic rhinitis, unspecified trigger Healthcare maintenance documented in this encounter Orders Case Request Count Last Ordered Date First Orde red Date GI DIRECT ACCESS CASE REQUEST 1 07/06/2019 documented in this encounter Care Teams Test Desk Supervisor Relationship Specialty Start Date End Date Teresita Painting MD PCP - General Obstetrics and Gynecology 07/26/1807/02 documented as of this encounter
--- OUTSIDE RECORDS SUMMARY | 2024-11-07 16:34 | XMS_ITS | Encounter Summary ---
Author Organization [facility] Healthcare Address [address] [place] [address] Care Team Providers Care Legal Billing Analyst Name Role Phone Teresita Painting MD Primary Care Prov ider Encounter Details Date Type Department Care Team (Late st Contact Info) Description 11/07/2020 4:00 PM MANAGER FORENSIC Lab [facility] [address] [place] [id number] Thrombocytopenia (CMS/HCC); Vitamin D deficiency Social History Tobacco Use Types Packs/Day Years Used Date Smoking Tobacco: Every Day Cigarettes Smokeless Tobacco: Never Comments:8 cigs a day Alcohol Use Standard Drinks/Week Comments Yes 0 (1 standard drink = 0.6 oz pur e alcohol) occasionally Sex and Gender Information Value Date Recorded Sex Assigned at Not on file 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 Gender Identity Not on file Sexual Orientation [...] DIFFERENTIAL AUTO Routine 11/07/2020 3:2 7 PM MANAGER FORENSIC Thrombocytopenia (CMS/HCC) CBC WITH AUTO DIFFERENTIAL Routine 11/07/2020 3:27 PM MANAGER FORENSIC Thrombocytopenia (CMS/HCC) VITAMIN D 25 HYDROXY Routine 11/07/2020 3:27 PM MANAGER FORENSIC Vitamin D deficiency documented in this encounter Results * Differential, auto (11/07/2020 3:27 PM MANAGER FORENSIC) Neutrophil abs 5.3 1.7 - 6.5 K/cumm [facility] Imm gran abs 0.0 0.0 - 0.1 K/cumm [facility] Lymphocyte abs 2.3 0.8 - 3.3 K/cumm [facility] Monocyte abs 0.5 0.2 - 0.8 K/cumm [facility] Eosinophil abs 0.2 0.0 - 0.5 K/cumm [facility] Basophil abs 0.0 0.0 - 0.1 K/cumm [facility] Neutrophil pct 63.2 % [facility] Comment: Interpretive Data Percent cell count reference ranges are not reported, since discordance with absolute values may lead to misinterpretation of CBC data. Current Interpretive Data was last revised on 2018. Imm gran pct 0.2 % [facility] Comment: Interpretive Data Percent cell count reference ranges are not reported, since discordance with absolute values may lead to misinterpretation of CBC data. Current Interpretive Data was last revised on 2018. Lymphocyte pct 27.3 % [facility] Comment: Interpretive Data Percent cell count reference ranges are not reported, since discordance with absolute values may lead to misinterpretation of CBC data. Current Interpretive Data was last revised on 2018. Monocyte pct 6.2 % [facility] Comment: Interpretive Data Percent cell count reference ranges are not reported, since discordance with absolute values may lead to misinterpretation of CBC data. Current Interpretive Data was last revised on 2018. Eosinophil pct 2.6 % [facility] Comment: Interpretive Data Percent cell count reference ranges are not reported, since discordance with absolute values may lead to misinterpretation of CBC data. Current Interpretive Data was last revised on 2018. Basophil pct 0.5 % [facility] Comment: Interpretive Data Percent cell count reference ranges are not reported, since discordance with absolute values may lead to misinterpretation of CBC data. Current Interpretive Data was last revised on 2018. Blood specimen (specimen) 11/07/2020 3:27 PM MANAGER FORENSIC 11/08/2020 12:09 AM MANAGER FORENSIC Lionel Busby MD LAB BLOOD ORDERABLES Carrie l Result [facility] One [facility] Department [place] [address] * (ABNORMAL) Vitamin D 25 hydroxy (11/07/2020 3:27 PM MANAGER FORENSIC) Vitamin D 25-OH 27(L) 30 - 80 ng/mL [facility] Blood specimen (specimen) 11/07/2020 3:27 PM MANAGER FORENSIC 11/07/2020 4:45 PM MANAGER FORENSIC us Lionel Busby MD LAB BLOOD ORDERABLES Carrie l Result Performing Organization Address [facility] Co de Phone Number [facility] [place] [address] * (ABNORMAL) CBC with auto differential (11/07/2020 3:27 PM MANAGER FORENSIC) WBC 8.0 3.8 - 9.9 K/cumm [facility] Hgb 13.7 13.0 - 17.5 g/dL [facility] Hct 38.6(L) 38.9 - 50.3 % [facility] Plt 207 150 - 400 K/cumm [facility] MPV 9.8 9.1 - 12.3 fL [facility] RBC 4.26(L) 4.30 - 5.80 M/cumm [facility] MCV 90.6 81.3 - 96.4 fL [facility] MCH 32.2 27.1 - 33.3 pg [facility] MCHC 35.5 32.3 - 35.7 g/dL [facility] RDW CV 12.3 11.1 - 14.9 % [facility] RDW SD 40.9 35.7 - 48.1 fL [facility] NRBC abs 0.00 0.00 - 0.01 K/cumm [facility] Blood specimen (specimen) 11/07/2020 3:27 PM MANAGER FORENSIC 11/07/2020 4:45 PM MANAGER FORENSIC Lionel Busby MD LAB BLOOD ORDERABLES Carrie l Result Performing Organization Address [facility]/ZIP Co de Phone Number [facility] [place] [address] documented in this encounter Visit Diagnoses Diagnosis Thrombocytopenia (HCC) Unspecified thrombocytopenia Vitamin D deficiency documented in this encounter Care Teams Legal Billing Analyst Relationship Specialty Start Date End Date Teresita Painting MD PCP - General 10/25/19 04/17/21 documented as of this encounter
--- OUTSIDE RECORDS SUMMARY | 2024-11-07 16:34 | XMS_ITS | Encounter Summary ---
Author Organization [facility] Healthcare Address [address] [place] [address] Care Team Providers Care Grader Meat Name Role Phone Teresita Painting MD Primary Care Prov ider Reason for Visit * Reason Onset Date Comments Follow-up 10/02/2018 Encounter Details Date Type Department Care Team (Late st Contact Info) Description 10/02/2018 Telephone [facility] Primary Care Medicine Clinic [address] [facility] [address] [place] [address] Teresita Painting MD [address] [facility] [address] [place] [address] Follow-up Social History Tobacco Use Types Packs/Day Years Used Date Smoking Tobacco: Every Day Cigarettes Smokeless Tobacco: Never Alcohol Use Standard Drinks/Week Comments Yes 0 (1 standard drink = 0.6 oz pur e alcohol) Sex and Gender Information Value Date Recorded Sex Assigned at Not on file 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 Patient contact: [phone] Elder Carrizales URE HANGER documented in this encounter Plan of Treatment [...] on filedocumented in this encounter Care Teams Grader Meat Relationship Specialty Start Date End Date Teresita Painting MD PCP - General Obstetrics and Gynecology 07/26/18 904/18 documented as of this encounter
--- OUTSIDE RECORDS SUMMARY | 2024-11-07 16:34 | XMS_ITS | Encounter Summary ---
Author Organization [facility] Healthcare Address [address] [place] [address] Care Team Providers Care Merchandising Lead Name Role Phone Teresita Painting MD Primary Care Prov ider Encounter Details Date Type Department Care Team (Late st Contact Info) Description 04/22/2020 Orders Only [facility] Primary Care Medicine Clinic [address] [facility] [address] [place] [address] Teresita Painting MD [address] [facility] [address] [place] [address] Social History Tobacco Use Types Packs/Day Years Used Date Smoking Tobacco: Every Day Cigarettes Smokeless Tobacco: Never Comments:8 cigs a day Alcohol Use Standard Drinks/Week Comments Yes 0 (1 standard drink = 0.6 oz pur e alcohol) 4 tall boys a day Sex and Gender Information Value Date Recorded Sex Assigned at Not on file 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
--- OUTSIDE RECORDS SUMMARY | 2024-11-07 16:34 | XMS_ITS | Encounter Summary ---
Author Organization [facility] Healthcare Address [address] [place] [address] Care Team Providers Care Cigarette Carton Sealer Name Role Phone Teresita Painting MD Primary Care Prov ider Encounter Details Date Type Department Care Team (Late st Contact Info) Description 05/14/2020 10:00 AM CDT - 05/14/2020 10:45 AM CDT Surgery [facility] [address] [facility] [address] [place] [address] Noemi Mccoy MD [facility] [address] [facility] [address] [place], [place] [id number] COLON BIOPSY Surgery Details Date/Time Status Location OR Service Patient Class Case Class Case Type Trauma Case? 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 Room: [facility] ROOM 4 Note Status: Finalized [...] verified by the physician, the nurse, the dehydrogenation converter operator and the poultry field service technician in the procedure room. Respiratory Examination: [...] was passed under direct vision. The [id number] endoscope was introduced through the anus and advanced to the cecum, identified by appendiceal orifice and ileocecal valve. The colonoscopy was performed without difficulty. The patient tolerated the procedure well. The quality of the bowel preparation was adequate to identify polyps 6 mm and larger in size. The quality of the bowel preparation was evaluated using the BBPS ([place] Bowel Preparation Scale) with scores of: Right [...] On: 05/14/2020 11:03 AM Recognized by the [place] [employer] Gastrointestinal Endoscopy for promoting quality [...] gastric) 05/14/2020 11:28 AM CDT Narrative PATHOLOGY [facility] - 05/15/2020 10:42 AM CDT EPIC results best viewed via link to PDF [facility] [place] [address] SURGICAL PATHOLOGY REPORT FINAL Patient Name: ?? YARIEL HILL Gender: ??M : ??1970 (Age: 50) Address: ??[address] [place] [id number] Hospital #: ??[id number] Taken:05/14/2020 Received:05/14/2020 Reported: 05/15/2020 Patient Type: [facility] ?? Service: Gastro Location: [facility] Physician(s): ??Noemi Mccoy M.D. Teresita Painting [...] and/05/14/2020 13:49 PA(s): Consuelo Martino MS, PA ([facility]) By this signature, I attest that the above diagnosis is based upon my personal examination of the slides(and/or other material). Addenda/Procedures The performance characteristics of some immunohistochemical stains, fluorescence in-situ hybridization tests and immunophenotyping by flow cytometry cited in this report (if any) were determined by the Surgical Pathology Department at [facility] as part of an ongoing supplier quality program and in compliance with federally mandated [...] determined by the Surgical Pathology Department of [facility]. ??It has not been cleared or approved by the U. S. Food and Drug Administration. IMAGES AND SCANNED DOCUMENTS, IF INCLUDED, ONLY VIEWABLE IN PDF VERSION OF REPORT us Noemi Mccoy MD LAB PATHOLOGY ORDERABLES Fin al Result PATHOLOGY [facility] 3rd Floor [place], [place] [phone] * COLONOSCOPY (05/14/2020 11:03 AM CDT) Anatomical Region Laterality Modality Other Narrative Procedure Note Noemi Mccoy MD - 05/14/2020 11:03 AM CDT [facility] END[facility]COPY [facility] Patient Name: Yariel Hill Procedure Date: 05/14/2020 11:03 AM Date of : 1970 Admit Type: Outpatient Age: 50 Gender: Male Attending MD: Noemi Mccoy M.D. Room: [facility] ROOM 4 Note Status: Finalized [...] were verified by the physician,the nurse, the dehydrogenation converter operator and the poultry field service technician in the procedure room. Respiratory Examination: [...] The scope was passed under direct vision.The [id number] endoscope was introduced throughthe anus and [...] On: 05/14/2020 11:03 AM Recognized by the [place] Gastrointestinal [employer]oscopy for promoting quality [...] 04/30 documented in this encounter Care Teams Cigarette Carton Sealer Relationship Specialty Start Date End Date Teresita Painting MD PCP - General 10/25/19 04/17/21 documented as of this encounter
--- OUTSIDE RECORDS SUMMARY | 2024-11-07 16:34 | XMS_ITS | Encounter Summary ---
Author Organization [facility] Healthcare Address [address] [place] [address] Care Team Providers Care Hand Roller Engraver Name Role Phone Teresita Painting MD Primary Care Prov ider Reason for Visit * Reason Onset Date Comments Follow-up 09/30/2020 Encounter Details Date Type Department Care Team ([facility] Contact Info) Description 09/30/2020 Telephone [facility] Primary Care Medicine Clinic [address] [facility] [address] [place] [address] Teresita Painting MD [address] [facility] [address] [place], [place] [id number] Follow-up Social History Tobacco Use Types Packs/Day Years Used Date Smoking Tobacco: Every Day Cigarettes Smokeless Tobacco: Never Comments:8 cigs a day Alcohol Use Standard Drinks/Week Comments Yes 0 (1 standard drink = 0.6 oz pur e alcohol) occasionally Sex and Gender Information Value Date Recorded Sex Assigned at Not on file 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 Would like to know if he can go to the 4th floor lab? Patient Contact: Marlin E RIGGER documented in this encounter Plan of Treatment [...] filedocumented in this encounter Care Teams Hand Roller Engraver Relationship Specialty Start Date End Date eTresita Painting MD PCP - General 10/25/19 04/17/21 documented as of this encounter
--- OUTSIDE RECORDS SUMMARY | 2024-11-07 16:34 | XMS_ITS | Encounter Summary ---
Author Organization [facility] Healthcare Address [address] [place] [address] Care Team Providers Care Orientor Name Role Phone Teresita Painting MD Primary Care Prov ider Reason for Visit * Reason Onset Date Comments Follow-up 09/17/2020 Encounter Details Date Type Department Care Team ([facility] Contact Info) Description 09/17/[address] [facility] Primary Care Medicine Clinic [address] [facility] [address] [place] [address] Teresita Painting MD [address] 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 Painting, Patient is calling, requesting a orthopedic referral. Marlin E SHEAR SET UP OPERATOR documented in this encounter Plan of [...] on filedocumented in this encounter Care Teams Orientor Relationship Specialty Start Date End Date Teresita Painting MD PCP - General 10/25/19 04/17/21 documented as of this encounter
--- OUTSIDE RECORDS SUMMARY | 2024-11-07 16:34 | XMS_ITS | Encounter Summary ---
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
--- OUTSIDE RECORDS SUMMARY | 2024-11-07 16:34 | XMS_ITS | Encounter Summary ---
Author Organization [facility] Healthcare Address [address] [place] [address] Care Team Providers Care Materials Handler Name Role Phone Teresita Painting MD Primary Care Prov ider Encounter Details Date Type Department Care Team (Late st Contact Info) Description 06/18/2020 3:00 PM CDT Office Visit [facility] Primary Care Medicine Clinic [address] [facility] [address] [place], [place] [phone] Nyla Bautista MD [address] [place] [address] [phone] [place], [place] [phone] [place] [address] [place] [address] [address] [place], [place] [phone] Essential hypertension (Primary Dx); Alcohol abuse; Vitamin [...] on file Legal Sex Male 2:37 PM FISH FRYER Gender Identity Not on file Sexual Orientation [...] (By injection) Pneumococcal 13-Valent Vaccine, Diphtheria Conjugate (JXW-jmx-AWQ-al 13-VAY-lent VAX-een, ioq-RGSPV-ro-a OEH-rdo-harw) Prevents infections, such as pneumonia and meningitis. [...] pharmacist before using any other medicine, including zdmy-qfv-dvypxjn medicines, vitamins, and herbal products. ?? Some [...] may report side effects to FDA at 4-898-LBJ-5443 ?? 2017 [employer] Information is for End User's use only and may not be sold, redistributed or otherwise used for commercial purposes. The above information is an maintenance aide only. It is not intended as [...] on phone: None Gets together: None Attends temple service: None Active member of club or [...] * Lipid panel (06/18/2020 4:46 PM CDT) [facility] Cholesterol 169 30 - 199 mg/dL [facility] [...] 2018. LDL, calculated 79 <=129 mg/dL [facility] Comment: Interpretive Data Ages < [...] on 2018. Chol/HDL ratio 2 [facility] Blood specimen (specimen) 06/18/2020 4:46 PM CDT 06/18/2020 5:13 PM CDT Francisco Goodson MD LAB BLOOD ORDERABLES Final Result Performing Organization Address [facility] de Phone Number [facility] Department [place] [address] * HIV 1/2 Antibody plus p24 Antigen (06/18/2020 4:46 PM CDT) [facility] HIV 1/2 ab + p24 ag Nonreactive Nonreactive [facility] Comment: Nonreactive for HIV-1 antigen and HIV-1/HIV-2 antibodies. No laboratory evidence of HIV infection. If acute HIV infection is suspected, consider testing for HIV-1 RNA. Blood specimen (specimen) 06/18/2020 4:46 PM CDT 06/18/2020 5:13 PM CDT Francisco Goodson MD LAB MICROBIOLOGY - GENERAL ORDERABLES Final Result Performing Organization Address [facility] de Phone Number [facility] Department [place] [address] * Hemoglobin A1c (06/18/2020 4:46 PM CDT) [facility] Hgb A1C 4.9 4.0 - 5.6 % [facility] Estimated Average Glucose 94 mg/dL [facility] Comment: The ADA recommends reporting an estimated Average Glucose (eAG) with all Hemoglobin A1c results using the equation derived from a study of 507 normal and diabetic adults. ??Minority populations were underrepresented and children were not included. ?? (Diabetes Care 31:7725-6157, 2007). ??The eAG is not equivalent to a fasting glucose. Blood specimen (specimen) 06/18/2020 4:46 PM CDT 06/18/2020 5:13 PM CDT Francisco Goodson MD LAB BLOOD ORDERABLES Final Result [facility] Department [place] [address] * Comprehensive metabolic panel (06/18/2020 4:46 PM CDT) Sodium 139 135 - 145 mmol/L [facility] Potassium, pl 4.4 3.3 - 4.9 mmol/L [facility] Chloride 102 97 - 110 mmol/L [facility] CO2 28 22 - 32 mmol/L [facility] Anion gap 9 2 - 15 mmol/L [facility] BUN 11 8 - 25 mg/dL [facility] Creatinine 1.01 0.80 - 1.30 mg/dL [facility] Glucose 72 70 - 199 mg/dL [facility] Comment: Interpretive Data Fasting glucose [...] 9.5 8.5 - 10.3 mg/dL [facility] Bilirubin, total 0.5 0.1 - 1.2 mg/dL [facility] Protein, pl 7.5 6.5 - 8.5 g/dL [facility] Albumin 4.8 3.5 - 5.0 g/dL [facility] Alk phos 48 40 - 130 Units/L [facility] ALT 17 7 - 55 Units/L [facility] AST 28 10 - 50 Units/L [facility] Blood specimen (specimen) 06/18/2020 4:46 PM CDT 06/18/2020 5:13 PM CDT Francisco Goodson MD LAB BLOOD ORDERABLES Final Result [facility] Department [place] [employer] [place] [address] * (ABNORMAL) CBC with auto differential (06/18/2020 4:46 PM CDT) [facility] WBC 7.1 3.8 - 9.9 K/cumm [facility] Hgb 13.7 13.0 - 17.5 g/dL [facility] Hct 41.1 38.9 - 50.3 % [facility] Plt 126(L) 150 - 400 K/cumm [facility] MPV 10.3 9.1 - 12.3 fL [facility] RBC 4.32 4.30 - 5.80 M/cumm [facility] MCV 95.1 81.3 - 96.4 fL [facility] MCH 31.7 27.1 - 33.3 pg [facility] MCHC 33.3 32.3 - 35.7 g/dL [facility] RDW CV 13.7 11.1 - 14.9 % [facility] RDW SD 48.7(H) 35.7 - 48.1 fL [facility] NRBC abs 0.00 0.00 - 0.01 K/cumm [facility] Blood specimen (specimen) 06/18/2020 4:46 PM CDT 06/18/2020 5:13 PM CDT Francisco Goodson MD LAB BLOOD ORDERABLES Final Result [facility] Department [place] [address] documented in this encounter Visit Diagnoses Diagnosis [...] documented as of this encounter Care Teams Materials Handler Relationship Specialty Start Date End Date Teresita Painting MD PCP - General 10/25/19 04/17/21 documented as of this encounter
--- OUTSIDE RECORDS SUMMARY | 2024-11-07 16:34 | XMS_ITS | Encounter Summary ---
Author Organization [facility] Healthcare Address [address] [place] [address] Care Team Providers Care Mobile Plant Operators Name Role Phone Teresita Painting MD Primary Care Prov ider Reason for Visit * Reason Comments Follow-up follow up on platele t count and vitamin d Encounter Details Date Type Department Care Team (Late st Contact Info) Description 11/07/2020 2:20 PM COMMODITIES TRADER Office Visit [facility] Primary Care Medicine Clinic [address] [facility] [address] [place], [place] [id number] Nyla Bautista MD [address] [facility] [phone] [place] [address] Lionel Busby MD [address] [facility] [place] [address] Vitamin D deficiency (Primary Dx); Thrombocytopenia (CMS/HCC); [...] on file Legal Sex Male 2:37 PM COMMODITIES TRADER Gender Identity Not on file Sexual Orientation Not on file documented as of this encounter Last Filed Vital Signs Vital Sign Reading Time Taken Comments Blood Pressure 137/80 11/07/2020 2:34 PM COMMODITIES TRADER Pulse 88 11/07/2020 2:34 PM COMMODITIES TRADER Temperature 36.8 ??C (98.2 ??F) 11/07/2020 2:29 PM CS T Respiratory Rate 20 11/07/2020 2:29 PM COMMODITIES TRADER Oxygen Saturation 100% 11/07/2020 2:29 PM COMMODITIES TRADER Inhaled Oxygen Concentration - - Weight 47.2 kg (104 lb 1.6 oz) 11/07/2020 2:29 P M COMMODITIES TRADER Height 170.2 cm (5' 7 ) 11/07/2020 2:29 PM COMMODITIES TRADER Body Mass Index 16.3 11/07/2020 2:29 PM COMMODITIES TRADER documented in this encounter Patient Instructions * Patient Instructions* Lionel Busby MD - 11/07/2020 2:20 PM COMMODITIES TRADER Please go to the 4th floor for [...] GO TO 4th floor for lab work. ODITIES TRADER ODITIES TRADER documented in this encounter Ordered Prescriptions Prescription [...] file Gets together: Not on file Attends congregational service: Not on file Active member of [...] La O MD at 11/07/2020 8:58 PM COMMODITIES TRADER ODITIES TRADER ODITIES TRADER Associated attestation - Flory De La O MD - 11/07/2020 8:58 PM COMMODITIES TRADER I have personally reviewed with Dr. Busby [...] clarification, and then discussed to patient satisfaction. ODITIES TRADER documented in this encounter Miscellaneous Notes * Addendum Note - Flory De La O MD - 11/07/2020 2:20 PM CSTAddended by: FLORY DE LA O on: 11/07/2020 08:59 PM Modules accepted: Level of Service ODITIES TRADER documented in this encounter Plan of Treatment [...] CBC with auto differential (11/07/2020 3:27 PM COMMODITIES TRADER) [facility] WBC 8.0 3.8 - 9.9 K/cumm [facility] Hgb 13.7 13.0 - 17.5 g/dL [facility] Hct 38.6(L) 38.9 - 50.3 % [facility] Plt 207 150 - 400 K/cumm [facility] MPV 9.8 9.1 - 12.3 fL [facility] RBC 4.26(L) 4.30 - 5.80 M/cumm [facility] MCV 90.6 81.3 - 96.4 fL [facility] MCH 32.2 27.1 - 33.3 pg [facility] MCHC 35.5 32.3 - 35.7 g/dL [facility] RDW CV 12.3 11.1 - 14.9 % [facility] RDW SD 40.9 35.7 - 48.1 fL [facility] NRBC abs 0.00 0.00 - 0.01 K/cumm [facility] Blood specimen (specimen) 11/07/2020 3:27 PM COMMODITIES TRADER 11/07/2020 4:45 PM COMMODITIES TRADER Lionel Busby MD LAB BLOOD ORDERABLES Carrie l Result Performing Organization Address City/[facility]/ZIP Co de Phone Number [facility] Department [place] [address] * (ABNORMAL) Vitamin D 25 hydroxy (11/07/2020 3:27 PM COMMODITIES TRADER) Vitamin D 25-OH 27(L) 30 - 80 ng/mL [facility] Blood specimen (specimen) 11/07/2020 3:27 PM COMMODITIES TRADER 11/07/2020 4:45 PM COMMODITIES TRADER Lionel Busby MD LAB BLOOD ORDERABLES Carrie l Result Performing Organization Address [facility] Co de Phone Number [facility] [employer] [place] [place] [address] documented in this encounter Visit Diagnoses Diagnosis [...] documented as of this encounter Care Teams Mobile Plant Operators Relationship Specialty Start Date End Date Teresita Painting MD PCP - General 10/25/19 04/17/21 documented as of this encounter
--- OUTSIDE RECORDS SUMMARY | 2024-11-07 16:35 | XMS_ITS | Encounter Summary ---
Author Organization [facility] Facility Care Team Providers Care Charging Plug Placer Name Role Phone Unavailable Primary Care Provider Unavailabl e Encounter Details Date Type Department Care Team (Late st Contact Info) Description 03/21/2015 10:13 AM CDT - 03/21/2015 4:00 PM CDT Hospital Encounter [facility] Rocco Brambila MD [address] [place] [address] Mechanical complication due to other implant and [...] on file Legal Sex Male 2:37 PM PROVIDER RELATIONS MANAGER Gender Identity Not on file Sexual [...]
--- OUTSIDE RECORDS SUMMARY | 2024-11-07 16:35 | XMS_ITS | Encounter Summary ---
Author Organization [facility] Facility Care Team Providers Care Kiln Placer Name Role Phone Unavailable Primary Care Provider Unavailabl e Encounter Details Date Type Department Care Team (Late st Contact Info) Description 10/20/2016 7:00 AM OPTOMETRIC AIDE - 10/20/2016 11:59 PM OPTOMETRIC AIDE Hospital Encounter [facility] Christiano Heller MD [address] [address] Carlin Avina Social History Tobacco Use Types Packs/Day Years Used Date Smoking Tobacco: Never Assessed Sex and Gender Information Value Date Recorded Sex Assigned at Not on file Legal Sex Male 2:37 PM OPTOMETRIC AIDE Gender Identity Not on file Sexual Orientation Not on file documented as of this encounter Plan of Treatment Not on file documented as of this encounter Visit Diagnoses Not on filedocumented in this encounter
--- OUTSIDE RECORDS SUMMARY | 2024-11-07 16:35 | XMS_ITS | Encounter Summary ---
Author Organization [facility] Facility Care Team Providers Care Wine Merchant Name Role Phone Unavailable Primary Care Provider Unavailabl e Encounter Details Date Type Department Care Team (Latest Contact Info) Description 05/15/2013 - 05/15/2013 11:59 PM CDT Hospital [facility] Chronic pancreatitis (CMS/HCC) (HCC); Cyst and pseudocyst of pancreas Social History Tobacco Use Types Packs/Day Years Used Date Smoking Tobacco: Never Assessed Sex and Gender Information Value Date Recorded Sex Assigned at Not on file Legal Sex Male 2:37 PM BLIND HOOKER Gender Identity Not on file Sexual [...] agrees with it. ACC# ??Date Time ??Exam [id number] May 15, 2013 18:19:00 [id number] MRI Abdomen wwo contrast [id number] May 15, 2013 18:19:00 [id number] 3-D Rendering on Modality ACC# ??Date Time ??Exam [id number] May 15, 2013 18:19:00 [id number] MRI Abdomen wwo contrast [id number] May 15, 2013 18:19:00 [id number] 3-D Rendering on Modality EXAMINATION: ?? 1. [...] agrees with it. ACC# Date Time Exam [id number] May 15, 2013 18:19:00 [id number] MRI Abdomen wwo contrast [id number] May 15, 2013 18:19:00 12910 3-D Rendering on Modality ACC# Date Time Exam [id number] May 15, 2013 18:19:00 [id number] MRI Abdomen wwo contrast [id number] May 15, 2013 18:19:00 [id number] 3-D Rendering on Modality EXAMINATION: 1. MAGNETIC [...] agrees with it. ACC# ??Date Time ??Exam [id number] May 15, 2013 18:19:00 [id number] MRI Abdomen wwo contrast [id number] May 15, 2013 18:19:00 [id number] 3-D Rendering on Modality ACC# ??Date Time ??Exam [id number] May 15, 2013 18:19:00 [id number] MRI Abdomen wwo contrast [id number] May 15, 2013 18:19:00 [id number] 3-D Rendering on Modality EXAMINATION: ?? 1. [...] agrees with it. ACC# Date Time Exam [id number] May 15, 2013 18:19:00 [id number] MRI Abdomen wwo contrast [id number] May 15, 2013 18:19:00 [id number] 3-D Rendering on Modality ACC# Date Time Exam [id number] May 15, 2013 18:19:00 [id number] MRI Abdomen wwo contrast [id number] May 15, 2013 18:19:00 [id number] 3-D Rendering on Modality EXAMINATION: 1. MAGNETIC [...]
--- OUTSIDE RECORDS SUMMARY | 2024-11-07 16:35 | XMS_ITS | Encounter Summary ---
Author Organization [facility] Healthcare Address [address] [place] [address] Care Team Providers Care Cut And Print Machine Operator Name Role Phone Darius Fernández MD Primary Care Provider [phone] Encounter Details Date Type Department Care Team (Late st Contact Info) Description 12/30/2016 9:12 AM LABORER PIPELINE - 12/30/2016 11:59 PM [facility] Hospital Encounter [facility] [phone] Darius Fernández MD [facility] [address] S[address] [address] Discharge Disposition: Discharge to home or self care Social History Tobacco Use Types Packs/Day Years Used Date Smoking Tobacco: Heavy Smoker Comments:Smoking History Pac ks/day: 0.5 Packs Alcohol Use Standard Drinks/Week Comments Yes 0 (1 standard drink = 0.6 oz pur e alcohol) Sex and Gender Information Value Date Recorded Sex Assigned at Not on file Legal Sex Male 2:37 PM LABORER PIPELINE Gender Identity Not on file Sexual Orientation [...] on filedocumented in this encounter Care Teams Cut And Print Machine Operator Relationship Specialty Start Date End Date Darius Fernández MD [facility] [address] Zach ESCOBAR [address] [place] [id number] PCP - General 12/30/16 01/27/17 documented as of this encounter
--- OUTSIDE RECORDS SUMMARY | 2024-11-07 16:35 | XMS_ITS | Encounter Summary ---
Author Organization [facility] Facility Care Team Providers Care Bench Technician Name Role Phone Unavailable Primary Care Provider Unavailabl e Encounter Details Date Type Department Care Team (Late st Contact Info) Description 01/10/2015 9:43 AM CDT - 01/10/2015 4:00 PM CDT Hospital Encounter [facility] Rocco Brambila MD [address] [place] [address] Cyst and pseudocyst of pancreas; Chronic pancreatitis (CMS/HCC) (HCC); Encounter for long-term (current) use of other medications; Tobacco use disorder; Essential hypertension Social History Tobacco Use Types Packs/Day Years Used Date Smoking Tobacco: Never Assessed Sex and Gender Information Value Date Recorded Sex Assigned at Not on file Legal Sex Male 2:37 PM PATIENT DAY COORDINATOR Gender Identity Not on file Sexual [...] agrees with it. ACC# ??Date Time ??Exam [id number] Jan 10, 2015 13:33:00 [id number] EndoCath Panc Prof Only EXAMINATION: ?Endoscopic Retrograde Pancreaticogram - pancreatic duct only Date: 01/10/2015 History: 44-year-old man with chronic pancreatitis. Findings: No prior studies available for comparison. 6 images from an ERP procedure are submitted by the hepatobiliary service. ??The carpenter inspector image of the right upper quadrant of [...] POWERS M.D. on Jan 11 2015 11:35A [id number] Procedure Note Provider, MD Rhett - 02/22/2017 ABBIE POWERS M.D. AVINASH SAMUEL M.D. FINAL REPORT The radiology attending physician has personally reviewed this study, and has reviewed and/or edited this written report and agrees with it. ACC# Date Time Exam [id number] Jan 10, 2015 13:33:00 [id number] EndoCath Panc Prof Only EXAMINATION: Endoscopic Retrograde Pancreaticogram - pancreatic duct only Date: 01/10/2015 History: 44-year-old man with chronic pancreatitis. Findings: No prior studies available for comparison. 6 images from an ERP procedure are submitted by the hepatobiliary service. The carpenter inspector image of the right upper quadrant of [...] POWERS M.D. on Jan 11 2015 11:35A [id number] Historical Provider MD MELÉNDEZ FLUOROSCOPY PROCEDURE S Final Result * Cytology (01/10/2015) Narrative 01/10/2015 Ordered by an unspecified provider. [facility] Provider LAB CYTOLOGY ORDERABLES F inal Result * CHOLANGIOPANCREATOGRAPHY, RETROGRADE, ENDOSCOPIC (01/10/2015) Anatomical Region Laterality Modality N/A Radiographic Vashti ging Narrative 01/10/2015 Ordered by an unspecified provider. [facility] Provider MD MELÉNDEZ XR PROCEDURES Final [...]
--- OUTSIDE RECORDS SUMMARY | 2024-11-07 16:35 | XMS_ITS | Encounter Summary ---
Author Organization [facility] Address [address] [place] [address] Care Team Providers Care Brass Sorter Name Role Phone Darius Fernández MD Primary Care Provider [phone] Reason for Visit * Reason Comments Hospital Follow Up Insect Bite L hand Encounter Details Date Type Department Care Team (Late Contact Info) Description 06/17/2017 2:45 PM CDT Office Visit [facility] at the [address] [place] [address] Darius Fernández MD [address] [place] [address] [address] [place] [address] Left hand pain (Primary Dx) Social History Tobacco Use Types Packs/Day Years Used Date Smoking Tobacco: Every Day Cigarettes Smokeless Tobacco: Never Alcohol Use Standard Drinks/Week Comments Yes 0 (1 standard drink = 0.6 oz pur e alcohol) Sex and Gender Information Value Date Recorded Sex Assigned at Not on file Legal Sex Male 2:37 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
--- OUTSIDE RECORDS SUMMARY | 2024-11-07 16:35 | XMS_ITS | Encounter Summary ---
Author Organization [facility] Facility Care Team Providers Care Emulsification Operator Name Role Phone Unavailable Primary Care Provider Unavailabl e Encounter Details Date Type Department Care Team (Late st Contact Info) Description 03/10/2016 1:13 PM CDT - 03/10/2016 4:00 PM CDT [facility] [address] [address] Essential (primary) hypertension; Cyst of pancreas; Cigarette nicotine dependence, uncomplicated; Acute pharyngitis; Vitamin D deficiency Social History Tobacco Use Types Packs/Day Years Used Date Smoking Tobacco: Never Assessed Sex and Gender Information Value Date Recorded Sex Assigned at Not on file Legal Sex Male 2:37 PM AGRONOMY RESEARCH MANAGER Gender Identity Not on file Sexual [...] ORDERABLES Carrie l Result Performing Organization Address [facility] Co de Phone Number HISTORICAL RESULTS * (ABNORMAL) Serum 25-hydroxycholecalciferol (vitamin D) (03/10/2016 2:51 PM CDT) 25-OH Vit D 8(L) 30 - 100 ng/ml HISTORICAL RESULTS Serum 03/10/2016 2:51 PM CDT Home Hoskins MD LAB BLOOD ORDERABLES Carrie l Result Performing Organization Address [facility] de Phone Number HISTORICAL RESULTS * Serum [...] ORDERABLES Carrie l Result Performing Organization Address [facility] de Phone Number HISTORICAL RESULTS * Serum Human Immunodeficiency virus (HIV) 1/2 ab + p24 ag (03/10/2016 2:51 PM CDT) Pathologist [facility] HIV 1/2 ab p24 ag Nonreactive Nonreactive HISTORICAL RESULTS Serum 03/10/2016 2:51 PM CDT Home Hoskins MD LAB BLOOD ORDERABLES Carrie l Result Performing Organization Address [facility] de Phone Number HISTORICAL RESULTS * Blood cell count (CBC) (03/10/2016 2:51 PM CDT) Pathologist [facility] WBC 7.9 3.8 - 9.9 K/cumm HISTORICAL [...] ORDERABLES Carrie l Result Performing Organization Address [facility] de Phone Number HISTORICAL RESULTS * Blood [...] ORDERABLES Carrie l Result Performing Organization Address [facility] de Phone Number HISTORICAL RESULTS * Blood [...] and children were not included. ??(Diabetes Care 31:[id number], 2007). ??The eAG is not equivalent to [...]
--- OUTSIDE RECORDS SUMMARY | 2024-11-07 16:35 | XMS_ITS | Encounter Summary ---
Author Organization [facility] Facility Care Team Providers Care User Interface Designer Name Role Phone Unavailable Primary Care Provider Unavailabl e Encounter Details Date Type Department Care Team (Late st Contact Info) Description 05/08/2013 10:23 AM CDT - 05/08/2013 4:00 PM T Hospital Encounter [facility] Christiano Heller MD [address] [address] Acute pancreatitis; Tobacco use disorder; Disease of pancreas; Hepatitis C virus infection without hepatic coma; Essential hypertension; Sprain of rotator cuff capsule; Vitamin D deficiency Social History Tobacco Use Types Packs/Day Years Used Date Smoking Tobacco: Never Assessed Sex and Gender Information Value Date Recorded Sex Assigned at Not on file Legal Sex Male 2:37 PM DOMESTIC HOUSEKEEPER Gender Identity Not on file Sexual Orientation [...]
--- OUTSIDE RECORDS SUMMARY | 2024-11-07 16:35 | XMS_ITS | Encounter Summary ---
Author Organization [facility] Facility Care Team Providers Care Personnel Counselor Name Role Phone Unavailable Primary Care Provider Unavailabl e Encounter Details Date Type Department Care Team (Latest Contact Info) Description 07/05/2013 11:00 AM CDT - 07/05/2013 4:00 PM CDT Hospital Encounter [facility] Modesto Durham MD [address] [place] [address] Pain in joint, shoulder region; Tobacco use disorder; Degeneration of cervical intervertebral disc Social History Tobacco Use Types Packs/Day Years Used Date Smoking Tobacco: Never Assessed Sex and Gender Information Value Date Recorded Sex Assigned at Not on file Legal Sex Male 2:37 PM COMMERCIAL STRIPPER Gender Identity Not on file Sexual Orientation [...] PHD FINAL REPORT ACC# ??Date Time ??Exam [id number] Jul 05, 2013 12:17:00 [id number] Shoulder minimum 2 views R EXAMINATION: ?Right [...] PHD FINAL REPORT ACC# Date Time Exam [id number] Jul 05, 2013 12:17:00 [id number] Shoulder minimum 2 views R EXAMINATION: Right [...]
--- OUTSIDE RECORDS SUMMARY | 2024-11-07 16:35 | XMS_ITS | Encounter Summary ---
Author Organization [facility] Facility Care Team Providers Care Coke Inspector Name Role Phone Unavailable Primary Care Provider Unavailabl e Encounter Details Date Type Department Care Team (Late st Contact Info) Description 09/18/2013 - 09/18/2013 11:59 PM SENIOR HYDROGEOLOGIST Hospital Encounter [facility] Rocco Brambila MD [address] [place] [address] Abdominal pain; Cyst and pseudocyst of pancreas Social History Tobacco Use Types Packs/Day Years Used Date Smoking Tobacco: Never Assessed Sex and Gender Information Value Date Recorded Sex Assigned at Not on file Legal Sex Male 2:37 PM SENIOR HYDROGEOLOGIST Gender Identity Not on file Sexual Orientation Not on file documented as of this encounter Plan of Treatment Not on file documented as of this encounter Procedures Procedure Name Priority Date/Time Associated Diagnosis Comments MRI ABDOMEN W WO CONTRAST Routine 09/18/2013 1:54 PM SENIOR HYDROGEOLOGIST BLOOD CREATININE, POINT OF CARE Routine 09/18/2013 12:51 PM SENIOR HYDROGEOLOGIST DISCHARGE LABORATORY CUMULATIVE REPORT Routine 09/18/2013 12:00 AM SENIOR HYDROGEOLOGIST documented in this encounter Results * MRI Abdomen WWO Contrast (09/18/2013 1:54 PM SENIOR HYDROGEOLOGIST) Anatomical Region Laterality Modality Body N/A Magnetic Resonan ce 09/18/2013 1:54 PM SENIOR HYDROGEOLOGIST Narrative 09/18/2013 4:19 PM SENIOR HYDROGEOLOGIST GUSTAVO SANTOS M.D. STEVIE HUNTER M.D. FINAL REPORT The radiology attending physician has personally reviewed this study, and has reviewed and/or edited this written report and agrees with it. ACC# ??Date Time ??Exam [id number] Sep 18, 2013 13:54:00 [id number] MRI Abdomen wwo contrast EXAMINATION: ?? 1. [...] this written report and agrees with it. [facility]# Date Time Exam [id number] Sep 18, 2013 13:54:00 [id number] MRI Abdomen wwo contrast EXAMINATION: 1. MAGNETIC [...] creatinine, point of care (09/18/2013 12:51 PM SENIOR HYDROGEOLOGIST) Creatinine, POC, bld 1.0 0.7 - 1.3 mg/dl HISTORICAL RESULTS Blood specimen (specimen) 09/18/2013 12:51 PM SENIOR HYDROGEOLOGIST us Rocco Moreno MD LAB BLOOD ORDERABL ES Final Result HISTORICAL RESULTS * Discharge Laboratory Cumulative Report (09/18/2013 12:00 AM SENIOR HYDROGEOLOGIST) 09/18/2013 Narrative HISTORICAL RESULTS - 09/18/2013 3:21 PM SENIOR HYDROGEOLOGIST ?[facility] ?Department of Laboratories ? [address] [facility] [address] ? [place] [address] Patient Name: ??YARIEL HILL Med Rec Number: [id number] Fin Number: ?[id number] Date: ?1970 Sex/Age: ? Male 43 years Admit Date: ?09/18/2013 Discharge Date: 09/18/2013 Doctor: ?Rocco Moreno Facility: ?[facility] Location: ?[facility] Chart Printed: 09/18/2013 15:21 ?? [...]
--- OUTSIDE RECORDS SUMMARY | 2024-11-07 16:35 | XMS_ITS | Encounter Summary ---
Author Organization [facility] Facility Care Team Providers Care Resource Manager Name Role Phone Unavailable Primary Care Provider Unavailabl e Encounter Details Date Type Department Care Team (Latest Contact Info) Description 07/02/2016 2:21 PM CDT - 07/02/2016 11:59 PM CDT [facility] [address] [place] [address] Essential (primary) hypertension; Other chronic pancreatitis (CMS/HCC); Cyst of pancreas; Uncomplicated alcohol abuse; Cigarette nicotine dependence, uncomplicated Social History Tobacco Use Types Packs/Day Years Used Date Smoking Tobacco: Never Assessed Sex and Gender Information Value Date Recorded Sex Assigned at Not on file Legal Sex 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
--- OUTSIDE RECORDS SUMMARY | 2024-11-07 16:35 | XMS_ITS | Encounter Summary ---
Author Organization [facility] Facility Care Team Providers Care Captain Airline Pilot Name Role Phone Unavailable Primary Care Provider Unavailabl e Encounter Details Date Type Department Care Team (Late st Contact Info) Description 06/27/2013 1:50 PM CDT Hospital Encounter [facility] Rocco Brambila MD [address] [place] [address] Cyst and pseudocyst of pancreas; Chronic pancreatitis (CMS/HCC) (HCC) Social History Tobacco Use Types Packs/Day Years Used Date Smoking Tobacco: Never Assessed Sex and Gender Information Value Date Recorded Sex Assigned at Not on file Legal Sex Male 2:37 PM SUPERVISOR LABORATORY Gender Identity Not on file Sexual Orientation [...] CDT) Referral lab, chem Test performed at [facility], [address] [facility], [address] [place] [address], [facility], [address]. HISTORICAL RESULTS Report charted 06/28/2013 HISTORICAL RESULTS Referral specimen, test result [id number] U/L HISTORICAL RESULTS Specimen type PANCREATIC CYST FLUID HISTORICAL RESULTS Test name, chem AMYLASE BODY FLUID HISTORICAL RESULTS Miscellaneous 06/27/2013 11: 08 AM CDT Narrative HISTORICAL RESULTS - 06/28/2013 7:32 AM CDT Test performed at [facility], 1 [facility], [address]. Historical Provider MD LAB BLOOD ORDERABLES Carrie l Result HISTORICAL RESULTS * Referred test (06/27/2013 11:08 AM CDT) Referral lab, chem Test performed at [facility], [address], [address]. HISTORICAL RESULTS Report charted 06/28/2013 HISTORICAL RESULTS Referral specimen, test result 52.49 ng/ml HISTORICAL RESULTS Specimen type PANCREATIC CYST FLUID HISTORICAL RESULTS Test name, chem CEA BODY FLUID HISTORICAL RESULTS Miscellaneous 06/27/2013 11: 08 AM CDT Narrative HISTORICAL RESULTS - 06/28/2013 7:30 AM CDT Test performed at [facility], 1 [facility], [address]. Historical Provider MD LAB BLOOD ORDERABLES Carrie [...]
--- OUTSIDE RECORDS SUMMARY | 2024-11-07 16:35 | XMS_ITS | Encounter Summary ---
Author Organization [facility] Facility Care Team Providers Care Insurance Legal Assistant Name Role Phone Unavailable Primary Care Provider Unavailabl e Encounter Details Date Type Department Care Team (Late st Contact Info) Description 12/20/2014 5:14 PM HEALTH INFORMATION MANAGEMENT DIRECTOR - 12/20/2014 11:59 PM HEALTH INFORMATION MANAGEMENT DIRECTOR Hospital Encounter [facility] Rocco Brambila MD [address] [place] [address] Social History Tobacco Use Types Packs/Day Years Used Date Smoking Tobacco: Never Assessed Sex and Gender Information Value Date Recorded Sex Assigned at Not on file Legal Sex Male 2:37 PM HEALTH INFORMATION MANAGEMENT DIRECTOR Gender Identity Not on file Sexual Orientation Not on file documented as of this encounter Plan of Treatment Not on file documented as of this encounter Procedures Procedure Name Priority Date/Time Associated Diagnosis Comments XR CONSULT OF OUTSIDE FILMS (PEDS ONLY) Routine 12/20/2014 6:22 PM HEALTH INFORMATION MANAGEMENT DIRECTOR documented in this encounter Results * XR Interpretation Of Outside Films (12/20/2014 6:22 PM HEALTH INFORMATION MANAGEMENT DIRECTOR) Anatomical Region Laterality Modality N/A Radiographic Vashti ging 12/20/2014 6:22 PM HEALTH INFORMATION MANAGEMENT DIRECTOR Narrative 12/21/2014 11:32 AM HEALTH INFORMATION MANAGEMENT DIRECTOR SP CASPER M.D. SP CASPER, FINAL REPORT The radiology attending physician has personally reviewed this study, and has reviewed and/or edited this written report and agrees with it. ACC# ??Date Time ??Exam [id number] Dec 20, 2014 18:22:00 [id number] [facility] Body [facility] Consult ACC# ??Date Time ??Exam [id number] Dec 20, 2014 18:22:00 [id number] [facility] Body CT Consult EXAMINATION: ?? RADIOLOGY CONSULTATION ON OUTSIDE IMAGING STUDY STUDY INITIALLY PERFORMED: ??On 12/11/2014 by [facility]. TYPE OF STUDY: Multiple CT images of [...] images may or may not represent the [place] source data set and thus may contain changes that may lower the accuracy of this second-opinion interpretation. ?? Requested By: Dictated By: ?? SP CASPER, ?? on Dec 21 2014 10:45A This document has been electronically signed by: SP CASPER M.D. on Dec 21 2014 11:32A [id number] Procedure Note Provider, MD Rhett - 02/22/2017 SP CASPER M.D. SP CASPER, FINAL REPORT The radiology attending physician has personally reviewed this study, and has reviewed and/or edited this written report and agrees with it. ACC# Date Time Exam [id number] Dec 20, 2014 18:22:00 [id number] [facility] Body CT Consult ACC# Date Time Exam [id number] Dec 20, 2014 18:22:00 [id number] [facility] Body CT Consult EXAMINATION: RADIOLOGY CONSULTATION ON OUTSIDE IMAGING STUDY STUDY INITIALLY PERFORMED: On 12/11/2014 by [facility]. TYPE OF STUDY: Multiple CT images of [...] images may or may not represent the [place] source data set and thus may contain changes that may lower the accuracy of this second-opinion interpretation. Requested By: Dictated By: SP CASPER on Dec 21 2014 10:45A This document has been electronically signed by: SP CASPER M.D. on Dec 21 2014 11:32A [id number] us Historical Provider MD MELÉNDEZ XR PROCEDURES Final R esult documented in this encounter Visit Diagnoses Not on filedocumented in this encounter
--- OUTSIDE RECORDS SUMMARY | 2024-11-07 16:35 | XMS_ITS | Encounter Summary ---
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 (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; Nicotine dependence, uncomplicated Social History Tobacco Use Types Packs/Day Years Used Date Smoking Tobacco: Never Assessed Sex and Gender Information Value Date Recorded Sex Assigned at Not on file Legal Sex Male 2:37 PM SKATESMAN Gender Identity Not on file Sexual Orientation Not on file documented as of this encounter Plan of Treatment Not on file documented as of this encounter Procedures Procedure Name Priority Date/Time Associated Diagnosis Comments SERUM LIPASE Routine 11/19/2015 2:26 AM SKATESMAN PLASMA HEPATIC FUNCTION PANEL Routine 11/19/2015 2:26 AM SKATESMAN PLASMA BASIC METABOLIC PANEL Routine 11/19/2015 2:26 AM SKATESMAN BLOOD CELL COUNT (CBC) Routine 11/19/2015 2:26 AM SKATESMAN DISCHARGE LABORATORY CUMULATIVE REPORT 11/19/2015 documented in this encounter Results * (ABNORMAL) Plasma hepatic function panel (11/19/2015 2:26 AM SKATESMAN) Pathologist [facility] Protein, pl 7.6 6.5 - 8.5 g/dl HISTORICAL RESULTS Alb 5.0 3.6 - 5.0 g/dl HISTORICAL RESULTS Bilirubin 0.5 0.3 - 1.1 mg/dl HISTORICAL RESULTS Bilirubin, direct 0.1 0.0 - 0.3 mg/dl HISTORICAL RESULTS Alk phos 55 38 - 126 Units/L HISTORICAL RESULTS AST 63(H) 11 - 47 Units/L HISTORICAL RESULTS ALT 39 7 - 53 Units/L HISTORICAL RESULTS Plasma 11/19/2015 2:26 AM SKATESMAN Devon Watson MD LAB BLOOD ORDERABLES Final Res ult Performing Organization Address [facility] de Phone Number HISTORICAL RESULTS * (ABNORMAL) Plasma basic metabolic panel (11/19/2015 2:26 AM SKATESMAN) Pathologist [facility] Sodium 141 135 - 145 mmol/L [...] mg/dl HISTORICAL RESULTS Plasma 11/19/2015 2:26 AM SKATESMAN Devon Watson MD LAB BLOOD ORDERABLES Final Res ult Performing Organization Address [facility] Co de Phone Number HISTORICAL RESULTS * Serum lipase (11/19/2015 2:26 AM SKATESMAN) Pathologist [facility] Lip 47 0 - 99 Units/L HISTORICAL RESULTS Serum 11/19/2015 2:26 AM SKATESMAN Devon Watson MD LAB BLOOD ORDERABLES Final Res ult HISTORICAL RESULTS * (ABNORMAL) Blood cell count (CBC) (11/19/2015 2:26 AM SKATESMAN) WBC 6.9 3.8 - 9.8 K/cumm HISTORICAL [...] RESULTS Blood specimen (specimen) 11/19/2015 2:26 AM SKATESMAN us Devon Watson MD LAB BLOOD ORDERABLES Final Res ult HISTORICAL RESULTS * DISCHARGE LABORATORY CUMULATIVE REPORT (11/19/2015) Narrative 11/19/2015 Ordered by an unspecified provider. us Historical Provider LAB BLOOD ORDERABLES Carrie l Result documented in this encounter Visit Diagnoses Diagnosis Alcoholic gastritis without bleeding Acute pancreatitis Major depressive disorder, single episode Major depressive disorder, single episode, unspecified Uncomplicated alcohol abuse Other intermediate (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 Nicotine dependence, uncomplicated documented in this encounter
--- OUTSIDE RECORDS SUMMARY | 2024-11-07 16:35 | XMS_ITS | Encounter Summary ---
Author Organization [facility] Facility Care Team Providers Care Electrician Second Name Role Phone Unavailable Primary Care Provider Unavailabl e Encounter Details Date Type Department Care Team (Late st Contact Info) Description 10/14/2015 3:04 PM US CUSTOMS AND BORDER OFFICER - 10/14/2015 9:10 PM US CUSTOMS AND BORDER OFFICER 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 Social History Tobacco Use Types Packs/Day Years Used Date Smoking Tobacco: Never Assessed Sex and Gender Information Value Date Recorded Sex Assigned at Not on file Legal Sex Male 2:37 PM US CUSTOMS AND BORDER OFFICER Gender Identity Not on file Sexual Orientation Not on file documented as of this encounter Plan of Treatment Not on file documented as of this encounter Procedures Procedure Name Priority Date/Time Associated Diagnosis Comments SERUM LIPASE Routine 10/14/2015 4:31 PM US CUSTOMS AND BORDER OFFICER PLASMA HEPATIC FUNCTION PANEL Routine 10/14/2015 4:31 PM US CUSTOMS AND BORDER OFFICER PLASMA BASIC METABOLIC PANEL Routine 10/14/2015 4:31 PM US CUSTOMS AND BORDER OFFICER BLOOD CELL COUNT (CBC) Routine 10/14/2015 3:42 PM US CUSTOMS AND BORDER OFFICER DISCHARGE LABORATORY CUMULATIVE REPORT 10/14/2015 documented in this encounter Results * (ABNORMAL) Plasma hepatic function panel (10/14/2015 4:31 PM US CUSTOMS AND BORDER OFFICER) Pathologist [facility] Protein, pl 8.5 6.5 - 8.5 g/dl [...] Units/L HISTORICAL RESULTS Plasma 10/14/2015 4:31 PM US CUSTOMS AND BORDER OFFICER Roe Ackerman MD LAB BLOOD ORDERABLES Final Result HISTORICAL RESULTS * (ABNORMAL) Plasma basic metabolic panel (10/14/2015 4:31 PM US CUSTOMS AND BORDER OFFICER) Pathologist [facility] Sodium 144 135 - 145 mmol/L HISTORICAL [...] mg/dl HISTORICAL RESULTS Plasma 10/14/2015 4:31 PM US CUSTOMS AND BORDER OFFICER Roe Ackerman MD LAB BLOOD ORDERABLES Final Result HISTORICAL RESULTS * Serum lipase (10/14/2015 4:31 PM US CUSTOMS AND BORDER OFFICER) Lip 22 0 - 99 Units/L HISTORICAL RESULTS Serum 10/14/2015 4:31 PM US CUSTOMS AND BORDER OFFICER Roe Ackerman MD LAB BLOOD ORDERABLES Final Result Performing Organization Address City/[facility] de Phone Number HISTORICAL RESULTS * Blood cell count (CBC) (10/14/2015 3:42 PM US CUSTOMS AND BORDER OFFICER) WBC 6.7 3.8 - 9.8 K/cumm HISTORICAL [...] RESULTS Blood specimen (specimen) 10/14/2015 3:42 PM US CUSTOMS AND BORDER OFFICER Roe Ackerman MD LAB BLOOD ORDERABLES Final [...] Essential (primary) hypertension Unspecified essential hypertension Other snf (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 documented in this encounter
--- OUTSIDE RECORDS SUMMARY | 2024-11-07 16:35 | XMS_ITS | Encounter Summary ---
Author Organization [facility] Facility Care Team Providers Care Banking Assistant Name Role Phone Darius Fernández MD Primary Care Provider [phone] Encounter Details Date Type Department Care Team (Late st Contact Info) Description 12/03/2016 2:59 PM POWER PLANT MANAGER - 12/03/2016 11:59 PM POWER PLANT MANAGER Hospital En[facility] Darius Fernández MD [address] [place] [address] [address] [address] Essential (primary) hypertension Social History Tobacco Use Types Packs/Day Years Used Date Smoking Tobacco: Heavy Smoker Comments:Smoking History Pac ks/day: 0.5 Packs Alcohol Use Standard Drinks/Week Comments Yes 0 (1 standard drink = 0.6 oz pur e alcohol) Sex and Gender Information Value Date Recorded Sex Assigned at Not on file Legal Sex Male 2:37 PM POWER PLANT MANAGER Gender Identity Not on file Sexual [...] Comments URINE MICROSCOPY Routine 12/03/2016 3:10 PM POWER PLANT MANAGER URINALYSIS Routine 12/03/2016 3:10 PM POWER PLANT MANAGER SERUM THYROID-STIMULATING HORMONE (TSH) Routine 12/03/2016 3:07 PM POWER PLANT MANAGER SERUM LIPID PANEL Routine 12/03/2016 3:0 7 PM POWER PLANT MANAGER SERUM GLUCOSE Routine 12/03/2016 3:07 PM POWER PLANT MANAGER PLASMA COMPREHENSIVE METABOLIC PANEL Routine 12/03/2016 3:07 PM POWER PLANT MANAGER BLOOD CELL COUNT (CBC) Routine 7 3:07 PM POWER PLANT MANAGER BLOOD CELL MORPHOLOGIC EXAM Routine 12/03/2016 3:07 PM POWER PLANT MANAGER DISCHARGE LABORATORY CUMULATIVE REPORT 12/03/2016 documented in this encounter Results * (ABNORMAL) Urinalysis (12/03/2016 3:10 PM POWER PLANT MANAGER) Color, ur Yellow Yellow CDR HISTOR ICAL [...] CDR HISTORICAL RESULTS Urine 12/03/2016 3:10 PM POWER PLANT MANAGER us Darius Fernández MD LAB BLOOD ORDERABLES Final Re sult CDR HISTORICAL RESULTS * (ABNORMAL) Urine microscopy (12/03/2016 3:10 PM POWER PLANT MANAGER) RBC, ur 4(H) 0 - 3 /hpf CDR HISTO RICAL RESULTS WBC, ur 0 0 - 5 /hpf CDR HISTO RICAL RESULTS Bacteria, ur Negative Trace CDR HIS TORICAL RESULTS Epithelial cells, renal, ur 0 0 - 0 /hpf CDR HISTORICAL RESULTS Mucus, ur Small /hpf CDR HISTOR ICAL RESULTS Urine 12/03/2016 3:10 PM POWER PLANT MANAGER Darius Fernández MD LAB BLOOD ORDERABLES Final Re sult Performing Organization Address [facility] de Phone Number CDR HISTORICAL RESULTS * Serum thyroid-stimulating hormone (TSH) (12/03/2016 3:07 PM POWER PLANT MANAGER) TSH 1.52 0.30 - 4.20 mcIUnits/m l CDR HISTORICAL RESULTS Comment: Interpretive Data Hyperthyroid: ??<0.1 mcIUnit/mL Hypothyroid: ??>12.0 mcIUnit/mL Current interpretive data was last revised on 00. Serum 12/03/2016 3:07 PM POWER PLANT MANAGER Darius Fernández MD LAB BLOOD ORDERABLES Final Re sult Performing Organization Address [facility] de Phone Number CDR HISTORICAL RESULTS * Serum lipid panel (12/03/2016 3:07 PM POWER PLANT MANAGER) Cholesterol 150 30 - 200 mg/dl CDR [...] last revised 2015. Serum 12/03/2016 3:07 PM POWER PLANT MANAGER us Darius Fernández MD LAB BLOOD ORDERABLES Final Re sult CDR HISTORICAL RESULTS * (ABNORMAL) Plasma comprehensive metabolic panel (12/03/2016 3:07 PM POWER PLANT MANAGER) Sodium 145 135 - 145 mmol/L CDR [...] CDR HISTORICAL RESULTS Plasma 12/03/2016 3:07 PM POWER PLANT MANAGER Darius Fernández MD LAB BLOOD ORDERABLES Final Re [facility] Performing Organization Address [facility] de Phone Number CDR HISTORICAL RESULTS * Serum glucose (12/03/2016 3:07 PM POWER PLANT MANAGER) Glucose 74 70 - 199 mg/dl CDR HISTORICAL RESULTS Serum 12/03/2016 3:07 PM POWER PLANT MANAGER Darius Fernández MD LAB BLOOD ORDERABLES Final Re sult Performing Organization Address [facility] de Phone Number CDR HISTORICAL RESULTS * (ABNORMAL) Blood cell count (CBC) (12/03/2016 3:07 PM POWER PLANT MANAGER) WBC 9.2 3.8 - 9.9 K/cumm CDR [...] RESULTS Blood specimen (specimen) 12/03/2016 3:07 PM POWER PLANT MANAGER Darius Fernández MD LAB BLOOD ORDERABLES Final Re sult CDR HISTORICAL RESULTS * Blood cell morphologic exam (12/03/2016 3:07 PM POWER PLANT MANAGER) Neutrophils 65.8 % CDR HIST ORICAL RESULTS [...] RESULTS Blood specimen (specimen) 12/03/2016 3:07 PM POWER PLANT MANAGER Darius Fernández MD LAB BLOOD ORDERABLES Final Re sult CDR HISTORICAL RESULTS * DISCHARGE LABORATORY CUMULATIVE REPORT (12/03/2016) Narrative 12/03/2016 Ordered by an unspecified provider. Historical Provider LAB BLOOD ORDERABLES Carrie l Result documented in this encounter Visit Diagnoses Diagnosis Essential (primary) hypertension Unspecified essential hypertension documented in this encounter Care Teams Banking Assistant Relationship Specialty Start Date End Date Darius Fernández MD [address] Zach ESCOBAR [address] [place] [id number] PCP - General 12/03/16 12/29/16 documented as of this encounter
--- OUTSIDE RECORDS SUMMARY | 2024-11-07 16:35 | XMS_ITS | Encounter Summary ---
Author Organization 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
--- OUTSIDE RECORDS SUMMARY | 2024-11-07 16:35 | XMS_ITS | Encounter Summary ---
Author Organization [facility] Facility Care Team Providers Care Career Development Facilitator Name Role Phone Unavailable Primary Care Provider Unavailabl e Encounter Details Date Type Department Care Team (Late st Contact Info) Description 06/12/2013 3:41 PM CDT - 06/12/2013 8:27 PM CDT Hospital Encounter [facility] Mary Ann Bernardo Pain in soft tissues of limb; History of other diseases of digestive system Social History Tobacco Use Types Packs/Day Years Used Date Smoking Tobacco: Never Assessed Sex and Gender Information Value Date Recorded Sex Assigned at Not on file Legal Sex Male 2:37 PM PSYCH SALES SPECIALIST Gender Identity Not on file Sexual [...] agrees with it. ACC# ??Date Time ??Exam [id number] Jun 12, 2013 18:08:00 [id number] Knee Complete min 4 views L EXAMINATION: [...] agrees with it. ACC# Date Time Exam [id number] Jun 12, 2013 18:08:00 [id number] Knee Complete min 4 views L EXAMINATION: [...] metabolic panel (06/12/2013 5:50 PM CDT) Pathologist [facility] Sodium 143 135 - 145 mmol/L HISTORICAL [...] count (CBC) (06/12/2013 5:50 PM CDT) Pathologist [facility] WBC 8.4 3.8 - 9.8 K/cumm HISTORICAL [...] ORDERABLES Final Resu lt Performing Organization Address [facility] de Phone Number HISTORICAL RESULTS * Blood erythrocyte sedimentation rate (ESR) (06/12/2013 5:50 PM CDT) Pathologist [facility] Erythrocyte sedimentation rate 9.0 0.0 - 12.0 mm/hr HISTORICAL RESULTS Blood specimen (specimen) 06/12/2013 5:50 PM CDT Mary Ann Bernardo LAB BLOOD ORDERABLES Final Resu lt Performing Organization Address [facility] de Phone Number HISTORICAL RESULTS [...] ORDERABLES Final Resu lt Performing Organization Address [facility] de Phone Number HISTORICAL RESULTS * Discharge Laboratory Cumulative Report (06/12/2013 12:00 AM CDT) 06/12/2013 Narrative HISTORICAL RESULTS - 06/13/2013 3:16 AM CDT ?[facility] ?Department of Laboratories ? [address] [facility] [address] ? [place] [address] Patient Name: ??YARIEL HILL Med Rec Number: [id number] Fin Number: ?[id number] Date: ?1970 Sex/Age: ? Male 43 years Admit Date: ?06/12/2013 Discharge Date: 06/12/2013 Doctor: ?Mary Ann Bernardo S Facility: ?[facility] Location: ?[id number] Chart Printed: 06/13/2013 03:16 [...] ?Test: Neut Pct Auto ??Lymph Pct Auto ??[place] Pct Auto ? Reference: [38.7-74.5] ?[20.0-54.3] ? [4.3-13.5] ? Units: % ?% ? % 06/12/2013 ?? 17:50:55 ?? 60.9 ? 27.4 ?6.0 ?Test: Eos Pct Auto ??Baso Pct Auto ??Neut Abs Auto ? Reference: [0.0-6.0] ? [0.0-3.0] ?[1.8-6.6] ? Units: % ? % ?K/cumm 06/12/2013 ?? 17:50:55 ?? 5.1 ? 0.6 ?5.1 ?Test: Lymph Abs Auto ??[place] Abs Auto ??Eos Abs Auto ? Reference: [...]
--- OUTSIDE RECORDS SUMMARY | 2024-11-07 16:35 | XMS_ITS | Encounter Summary ---
Author Organization [facility] Address [address] [place] [address] Care Team Providers Care Calciner Operator Helper Name Role Phone Darius Fernández MD Primary Care Provider [phone] Reason for Visit * Reason Comments Hypertension Follow-up Encounter Details Date Type Department Care Team ([facility] Contact Info) Description 04/13/2018 9:30 AM CDT Office Visit 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
--- OUTSIDE RECORDS SUMMARY | 2024-11-07 16:35 | XMS_ITS | Encounter Summary ---
Author Organization [facility] Facility Care Team Providers Care Director Cost Name Role Phone Unavailable Primary Care Provider Unavailabl e Encounter Details Date Type Department Care Team (Late st Contact Info) Description 04/09/2014 11:41 AM CDT Hospital Encounter [facility] Rocco Brambila MD [address] [place] [address] Cyst and pseudocyst of pancreas; Acute pancreatitis; Other pancreatic disorder Social History Tobacco Use Types Packs/Day Years Used Date Smoking Tobacco: Never Assessed Sex and Gender Information Value Date Recorded Sex Assigned at Not on file 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 ACC# ??Date Time ??Exam [id number] Apr 09, 2014 13:05:00 [id number] MRI Abdomen wwo contrast [id number] Apr 09, 2014 13:05:00 82169 3-D Rendering on Modality EXAMINATION: 1. ??MAGNETIC [...] agrees with it. ACC# Date Time Exam [id number] Apr 09, 2014 13:05:00 07514 MRI Abdomen wwo contrast [id number] Apr 09, 2014 13:05:00 40729 3-D Rendering on Modality EXAMINATION: 1. MAGNETIC [...] agrees with it. ACC# ??Date Time ??Exam [id number] Apr 09, 2014 13:05:00 [id number] MRI Abdomen wwo contrast [id number] Apr 09, 2014 13:05:00 62276 3-D Rendering on Modality EXAMINATION: 1. ??MAGNETIC [...] agrees with it. ACC# Date Time Exam [id number] Apr 09, 2014 13:05:00 [id number] MRI Abdomen wwo contrast [id number] Apr 09, 2014 13:05:00 79969 3-D Rendering on Modality EXAMINATION: 1. MAGNETIC [...]
--- OUTSIDE RECORDS SUMMARY | 2024-11-07 16:35 | XMS_ITS | Encounter Summary ---
Author Organization [facility] Facility Care Team Providers Care Financial Reporting Specialist Name Role Phone Unavailable Primary Care Provider Unavailabl e Encounter Details Date Type Department Care Team (Late st Contact Info) Description 03/21/2015 - 03/21/2015 11:59 PM CDT Hospital Encounter [facility] Rocco Brambila MD [address] [place] [address] Cyst and pseudocyst of pancreas; Chronic pancreatitis (CMS/HCC) (HCC) Social History Tobacco Use Types Packs/Day Years Used Date Smoking Tobacco: Never Assessed Sex and Gender Information Value Date Recorded Sex Assigned at Not on file 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 ACC# ??Date Time ??Exam [id number] March 21, 2015 09:56:00 [id number] MRI Abdomen wwo contrast ACC# ??Date Time ??Exam [id number] March 21, 2015 09:56:00 [id number] MRI Abdomen wwo contrast EXAMINATION: 1. ??MAGNETIC [...] ALEMAN M.D. on Mar 21 2015 ??6:23P [id number] Procedure Note Provider, Historical, MD - 02/22/2017 ROBERTO ALEMAN M.D. MELVIN SHER, FINAL REPORT The radiology attending physician has personally reviewed this study, and has reviewed and/or edited this written report and agrees with it. ACC# Date Time Exam [id number] March 21, 2015 09:56:00 54041 MRI Abdomen wwo contrast ACC# Date Time Exam [id number] March 21, 2015 09:56:00 [id number] MRI Abdomen wwo contrast EXAMINATION: 1. MAGNETIC [...] ALEMAN M.D. on Mar 21 2015 6:23P [id number] Historical Provider MD MELÉNDEZ MRI PROCEDURES Final [...] HISTORICAL RESULTS - 03/21/2015 11:21 AM CDT ?[facility] ?Department of Laboratories ? [address] [facility] [address] ? [place] [address] Patient Name: ??YARIEL HILL [facility] Rec Number: [id number] Fin Number: ?[id number] Date: ?1970 Sex/Age: ? Male 44 years Admit Date: ?03/21/2015 Discharge Date: 03/21/2015 Doctor: ?Rocco Moreno Facility: ?[facility] Location: ?[facility] Chart Printed: 03/21/2015 11:21 [...]
--- OUTSIDE RECORDS SUMMARY | 2024-11-07 16:35 | XMS_ITS | Encounter Summary ---
Author Organization [facility] Healthcare Address [address] [place] [address] Care Team Providers Care Equine Breeder Name Role Phone Teresita Painting MD Primary Care Prov ider Darius Fernández MD Primary Care Provider [phone] Reason for Visit * Reason Comments Preventative Care Hypertension monitors BP at home, did not take medication yet . 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 They still contain nicotine. ?? [employer] Phone: Web Address: [email or web address] Follow up with your healthcare provider as directed: Write down your questions so you remember to ask them during your visits. ?? 2016 [employer]. Information is for End User's use only and may not be sold, redistributed or otherwise used for commercial purposes. All illustrations and images included in CareNotes?? are the copyrighted property of [employer]. or [employer]. The above information is an early childhood aide classroom only. It is not intended as medical [...] eating a lot of salty food (Abdi's, gambian fries, chips, soda). Identified a couple of [...] rRNA Negative for: ??Neisseria gonorrhoeae rRNA [facility] Urine 06/13/2018 3:56 PM CDT 06/13/2018 5:34 PM CDT Narrative [facility] - 06/14/2018 2:01 PM CDT Testing performed by the Gen-Probe Sendia APTIMA Combo 2 Assay. This nucleic acid amplification test (NAAT) detects ribosomal RNA (rRNA) from Chlamydia trachomatis and Neisseria gonorrhoeae using target capture,and Roadside Mechanic-Mediated Amplification (TMA). This test is approved by the [place] Food and Drug Administration for endocervical, vaginal, and male urethral swab specimens, in addition to male and female urine specimens. The performance characteristics for these specimen types have been verified by the [facility].The performance characteristics of this assay for pharyngeal and rectal specimens collected from cervical swab collection devices have been validated and verified by the [facility]. Verification studies support [...] age. Christiano Heller MD LAB MICROBIOLOGY - Advanced Telemetry L ORDERABLES Final Result Performing Organization Address City/[facility] Co de Phone Number [facility] Department [place] [place] [address] * RPR, serum (06/13/2018 3:56 PM CDT) Pathologist [facility] RPR Nonreactive Nonreactive [facility] Blood specimen (specimen) 06/13/2018 3:56 PM CDT 06/13/2018 6:30 PM CDT Narrative [facility] - 06/13/2018 7:47 PM CDT Christiano Heller MD LAB MICROBIOLOGY - GENERA L ORDERABLES Final Result Performing Organization Address City/[facility]/[place] [address] * Hemoglobin A1c (06/13/2018 3:51 PM CDT) Hgb A1C 4.9 4.0 - 5.6 % [facility] Estimated Average Glucose 94 mg/dL [facility] Comment: The ADA recommends reporting an estimated Average Glucose (eAG) with all Hemoglobin A1c results using the equation derived from a study of 507 normal and diabetic adults. ??Minority populations were underrepresented and children were not included. ?? (Diabetes Care 31:0171-8298, 2008). ??The eAG is not equivalent to a fasting glucose. Blood specimen (specimen) 06/13/2018 3:51 PM CDT 06/13/2018 4:39 PM CDT Narrative [facility] - 06/13/2018 5:07 PM CDT Christiano Heller MD LAB BLOOD ORDERABLES Carrie l Result Performing Organization Address City/[facility]/ZIP Co de Phone Number [facility] [place] [address] * HIV-1 and HIV-2 antibody with P24 antigen immunoassay (06/13/2018 3:31 PM CDT) Pathologist [facility] HIV 1/2 ab + p24 ag Nonreactive Nonreactive [facility] Comment:Negative for HIV-1 a ntigen and HIV-1/ HIV-2 antibodies. No laboratory evidence of HIV infection. If acute HIV infection is suspected, consider testing for HIV-1 RNA. Blood specimen (specimen) 06/13/2018 3:31 PM CDT 06/13/2018 4:[address] [facility] 06/13/2018 5:33 PM CDT Christiano Heller MD LAB MICROBIOLOGY - GENERA L ORDERABLES Final Result Performing Organization Address [facility]/ZIP Co de Phone Number [facility] [place] [address] * Folate (06/13/2018 3:04 PM CDT) Pathologist [facility] Folic acid 7.1 >=5.0 ng/mL [facility] Blood specimen (specimen) 06/13/2018 3:04 PM CDT 06/13/2018 4:41 PM CDT Narrative [facility] 06/13/2018 6:35 PM CDT us Christiano Heller MD LAB BLOOD ORDERABLES Carrie l Result Performing Organization Address City/[facility]/ZIP Co de Phone Number [facility] [place] [address] * Iron profile (06/13/2018 3:04 PM CDT) [facility] Iron 77 50 - 150 mcg/dL [facility] UIBC 198 112 - 347 mcg/dL [facility] TIBC 275 250 - 400 mcg/dL [facility] Transferrin saturation 28 20 - 50 % [facility] Blood specimen (specimen) 06/13/2018 3:04 PM CDT 06/13/2018 4:41 PM CDT Narrative [facility] - 06/13/2018 6:31 PM CDT us Christiano Heller MD LAB BLOOD ORDERABLES Carrie l Result Performing Organization Address [facility] [place] [address] * (ABNORMAL) Vitamin D 25 hydroxy (06/13/2018 3:04 PM CDT) [facility] Vitamin D 25-OH 18(L) 30 - 80 ng/mL [facility] Blood specimen (specimen) 06/13/2018 3:04 PM CDT 06/13/2018 4:41 PM CDT Narrative [facility] - 06/13/2018 7:12 PM CDT Christiano Heller MD LAB BLOOD ORDERABLES Carrie l Result [facility] [place] [address] * Vitamin B12 (06/13/2018 3:04 PM CDT) [facility] Vitamin B12 688 230 - 1,250 pg/mL [facility] Blood specimen (specimen) 06/13/2018 3:04 PM CDT 06/13/2018 4:41 PM CDT Narrative [facility] - 06/13/2018 6:35 PM CDT us Christiano Heller MD LAB BLOOD ORDERABLES Carrie l Result [facility] [place] [address] * Comprehensive metabolic panel (06/13/2018 3:04 PM CDT) Pathologist [facility] Sodium 143 135 - 145 mmol/L [facility] Potassium, pl 3.7 3.3 - 4.9 mmol/L [facility] Chloride 103 97 - 110 mmol/L [facility] CO2 30 22 - 32 mmol/L [facility] Anion gap 10 2 - 15 mmol/L [facility] BUN 10 8 - 25 mg/dL [facility] Creatinine 1.03 0.80 - 1.30 mg/dL [facility] Glucose 77 70 - 199 mg/dL [facility] Comment: Interpretive Data Fasting glucose [...] Calcium 9.6 8.5 - 10.3 mg/dL [facility] Bilirubin, total 0.4 0.1 - 1.2 mg/dL [facility] Protein, pl 8.0 6.5 - 8.5 g/dL [facility] Albumin 4.9 3.5 - 5.0 g/dL [facility] Alk phos 63 40 - 130 Units/L [facility] ALT 13 7 - 55 Units/L [facility] AST 21 10 - 50 Units/L [facility] Blood specimen (specimen) 06/13/2018 3:04 PM CDT 06/13/2018 4:41 PM CDT Narrative [facility] - 06/13/2018 5:22 PM CDT Christiano Heller MD LAB BLOOD ORDERABLES Carrie khanna Result [facility] One [facility] [place] [address] documented in this encounter Visit Diagnoses Diagnosis [...] documented as of this encounter Care Teams Equine Breeder Relationship Specialty Start Date End Date Teresita Painting MD PCP - General Internal Medicine 06/13/18 06/13/18 Darius Fernández MD [address] [place] [address] PCP - General 06/14/18 07/25/18 documented as of this encounter
--- OUTSIDE RECORDS SUMMARY | 2024-11-07 16:35 | XMS_ITS | Encounter Summary ---
Author Organization [facility] Address [address] [place] [address] Care Team Providers Care Software Qa Manager Name Role Phone Darius Fernández MD Primary Care Provider Reason for Visit * Reason Onset Date Comments Pradeep no transition of care appt 06/15/2017 Encounter Details Date Type Department Care Team (Late st Contact Info) Description 06/15/2017 Telephone [facility] at the [address] [place] [address] Darius Fernández MD [address] [place] [address] [address] [place], [place] [id number] Pradeep no transition of care appt Social History Tobacco Use Types Packs/Day Years Used Date Smoking Tobacco: Heavy Smoker Comments:Smoking History Pac ks/day: 0.5 Packs Alcohol Use Standard Drinks/Week Comments Yes 0 (1 standard drink = 0.6 oz pur e alcohol) Sex and Gender Information Value Date Recorded Sex Assigned at Not on file 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 * Telephone Encounter - Shannon Stone - 06/15/2017 3:19 PM CDT Patient calling in stating he was in the ED at [facility] on 06/10/17 for Insect bite to theleft hand and was to contact his primary care for a transition of care appt with in 5 days /no appointments available with in the time frame please advise and to contact the patient at [phone] documented in this encounter Plan of Treatment Not on file documented as of this encounter Visit Diagnoses Not on filedocumented in this encounter Care Teams Software Qa Manager Relationship Specialty Start Date End Date Darius Fernández MD [facility] [facility] [address] Zach [address] [place] [id number] PCP - General 01/28/17 06/08/18 documented as of this encounter
--- OUTSIDE RECORDS SUMMARY | 2024-11-07 16:35 | XMS_ITS | Encounter Summary ---
Author Organization [facility] Healthcare Address [address] [place] [address] Care Team Providers Care Six Sigma Black Trainer Name Role Phone Teresita Painting MD Primary Care Prov ider Reason for Visit * Reason Comments Rash occurs after shower, at night, Encounter Details Date Type Department Care Team (Late st Contact Info) Description 09/29/2018 3:00 PM POWER CLEANER OPERATOR Office Visit [facility] Primary Care Medicine Clinic [address] [facility] [address] [place], [place] [id number] Christiano Heller MD [address] [place] [address] Teresita Painting MD [address] [facility] [address] [place] [address] Alcohol abuse (Primary Dx); Anemia, unspecified type; [...] file Legal Sex Male 2:37 PM POWER CLEANER OPERATOR Gender Identity Not on file Sexual Orientation Not on file documented as of this encounter Last Filed Vital Signs Vital Sign Reading Time Taken Comments Blood Pressure 157/81 09/29/2018 3:24 PM POWER CLEANER OPERATOR Pulse 110 09/29/2018 3:24 PM POWER CLEANER OPERATOR Temperature 36.8 ??C (98.3 ??F) 09/29/2018 3:24 PM CS T Respiratory Rate 14 09/29/2018 3:24 PM POWER CLEANER OPERATOR n on-labored Oxygen Saturation 99% 09/29/2018 3:24 PM POWER CLEANER OPERATOR room air Inhaled Oxygen Concentration - - Weight 49.4 kg (109 lb) 09/29/2018 3:24 PM POWER CLEANER OPERATOR Height - - Body Mass Index 17.33 06/17/2017 2:59 PM CDT documented in this encounter Patient Instructions * Patient Instructions* Teresita Painting MD - 09/29/2018 3:00 PM POWER CLEANER OPERATOR Images from the original note were not [...] of viruses cause the flu. The viruses change management facilitator time, so new vaccines are made each [...] refuse treatment. The above information is an public health aide only. It is not intended as medical advice for individual conditions or treatments. Talk to your doctor, nurse or pharmacist before following any medical regimen to see if it is safe and effective for you. ?? 2016 [employer] Information is for End User's use only and may not be sold, redistributed or otherwise used for commercial purposes. All illustrations and images included in CareNotes?? are the copyrighted property of [employer]. or [employer]. Pt arrived ambulating with a steady gait, requires no assistance. Pt was discharged with a steady gait. R CLEANER OPERATOR R CLEANER OPERATOR documented in this encounter Ordered Prescriptions [...] not diaphoretic. No erythema. Small area of accounts receivable associate discoloration on left outer thigh. No erythema [...] eating a lot of salty food (Abdi's, vietnamese fries, chips, soda). Identified a couple of [...] when able. Leigha Painting MD Internal Medicine PGY-6 Resident Physician Department of Medicine [facility] / [facility] Primary Care [facility] [address] [place] [address] [address] [place] [address] Attending Notes: 48 yo with HTN, alcohol abuse, smoking, anemia here for follow up. # EtOH use - binge drinks 6 days in a roll, wants to stop drinking. # HTN - not taking meds. 157/81, restart meds. # Anemia - check CBC. # Vitamin D def - repletion # HM - order C-scope. Cosigned by Gage Ragland MD at 10/02/2018 11:46 AM POWER CLEANER OPERATOR R CLEANER OPERATOR R CLEANER OPERATOR Associated attestation - Gage Ragland MD - 10/02/2018 11:46 AM POWER CLEANER OPERATOR I have seen and examined the patient. [...] Reminders @MD@ Resident Physician Department of Medicine [facility] / [facility] Primary Care Medicine [facility] [address] [place] [address] [address], [address] [place] [address] R CLEANER OPERATOR documented in this encounter Miscellaneous Notes * Assessment & Plan Note - Teresita Painting MD - 09/29/2018 5:38 PM CSTAssociated Problem(s): Annual physical exam Flu shot and referral for colonoscopy today R CLEANER OPERATOR * Assessment & Plan Note - Teresita [...] he ought to present to the ED. R CLEANER OPERATOR R CLEANER OPERATOR * Assessment & Plan Note - Teresita Painting MD - 09/29/2018 5:29 PM CSTAssociated Problem(s): Sinus congestion (Resolved 07/06/2019) Mild sinus congestion today. No indication for further workup or antibiotics. -Fluticasone nasal spray for 2 weeks to a month R CLEANER OPERATOR * Assessment & Plan Note - Teresita [...] pharmacologic therapy for him, chantix vs wellbutrin. R CLEANER OPERATOR * Assessment & Plan Note - Teresita Painting MD - 09/29/2018 5:26 PM CSTAssociated Problem(s): Anemia Mild anemia with last Hb 12.9 (from 12/2016). Folate, B12, Iron panel normal. -CBC today R CLEANER OPERATOR * Assessment & Plan Note - Teresita Painting MD - 09/29/2018 5:25 PM CSTAssociated Problem(s): Vitamin D deficiency (Resolved 04/23/2021) Vitamin D 18 on 05/2018 labs, will start 50,000 units vit D weekly today. R CLEANER OPERATOR * Assessment & Plan Note - Teresita [...] increase as needed at his next visit. R CLEANER OPERATOR documented in this encounter Plan of [...] CBC with auto differential (10/05/2018 3:11 PM POWER CLEANER OPERATOR) WBC 8.3 3.8 - 9.9 K/cumm [facility] Hgb 14.3 13.0 - 17.5 g/dL [facility] Hct 43.4 38.9 - 50.3 % [facility] Plt 202 150 - 400 K/cumm [facility] MPV 9.7 9.1 - 12.3 fL [facility] RBC 4.55 4.30 - 5.80 M/cumm [facility] MCV 95.4 81.3 - 96.4 fL [facility] MCH 31.4 27.1 - 33.3 pg [facility] MCHC 32.9 32.3 - 35.7 g/dL [facility] RDW CV 13.8 11.1 - 14.9 % [facility] RDW SD 48.6(H) 35.7 - 48.1 fL [facility] NRBC abs 0.00 0.00 - 0.01 K/cumm [facility] Blood specimen (specimen) 10/05/2018 3:11 PM POWER CLEANER OPERATOR 10/05/2018 4:12 PM POWER CLEANER OPERATOR Narrative [facility] - 10/05/2018 4:25 PM POWER CLEANER OPERATOR Christiano Heller MD LAB BLOOD ORDERABLES Carrie khanna Result [facility] [address] [facility] [place] [address] documented in this encounter Visit Diagnoses Diagnosis [...] documented as of this encounter Care Teams Six Sigma Black Trainer Relationship Specialty Start Date End Date Teresita Painting MD PCP - General Obstetrics and Gynecology 07/26/1807/02 documented as of this encounter
--- OUTSIDE RECORDS SUMMARY | 2024-11-07 16:35 | XMS_ITS | Encounter Summary ---
Author Organization [facility] Facility Care Team Providers Care Edge Trimming Machine Operator Name Role Phone Unavailable Primary Care Provider Unavailabl e Encounter Details Date Type Department Care Team (Late st Contact Info) Description 07/12/2013 10:12 AM CDT - 07/12/2013 4:00 PM T Hospital Encounter [facility] Christiano Heller MD [address] [address] Acute pancreatitis; Cyst and pseudocyst of pancreas; Essential hypertension; Pain in joint, shoulder region; Tobacco use disorder; Esophageal reflux; Impotence of organic origin; Pain in soft tissues of limb Social History Tobacco Use Types Packs/Day Years Used Date Smoking Tobacco: Never Assessed Sex and Gender Information Value Date Recorded Sex Assigned at Not on file 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
--- OUTSIDE RECORDS SUMMARY | 2024-11-07 16:35 | XMS_ITS | Encounter Summary ---
Author Organization [facility] Facility Care Team Providers Care Cherry Pitter Name Role Phone Unavailable Primary Care Provider Unavailabl e Encounter Details Date Type Department Care Team (Late st Contact Info) Description 08/02/2013 1:00 PM CDT - 08/02/2013 4:00 PM CDT Hospital Encounter [facility] Modesto Durham MD [address] [facility] [address] [place] [address] Cervicalgia; Pain in joint, shoulder region; Spinal stenosis in cervical region Social History Tobacco Use Types Packs/Day Years Used Date Smoking Tobacco: Never Assessed Sex and Gender Information Value Date Recorded Sex Assigned at Not on file Legal Sex Male 2:37 PM SOLAR INSTALLER PV Gender Identity Not on file Sexual Orientation Not on file documented as of this encounter Plan of Treatment Not on file documented as of this encounter Visit Diagnoses Diagnosis Cervicalgia Pain in joint, shoulder region Spinal stenosis in cervical region documented in this encounter
--- OUTSIDE RECORDS SUMMARY | 2024-11-07 16:35 | XMS_ITS | Encounter Summary ---
Author Organization [facility] Facility Care Team Providers Care Concrete Foreman Name Role Phone Unavailable Primary Care Provider Unavailabl e Encounter Details Date Type Department Care Team (Latest Contact Info) Description 12/07/2013 10:04 AM RETAIL PHARMACIST - 12/07/2013 4:00 PM RETAIL PHARMACIST Hospital Encounter [facility] Christiano Heller MD [address] [place] [address] Other follow-up examination; Acute pancreatitis; Cyst and [...] file Legal Sex Male 2:37 PM RETAIL PHARMACIST Gender Identity Not on file Sexual Orientation Not on file documented as of this encounter Plan of Treatment Not on file documented as of this encounter Procedures Procedure Name Priority Date/Time Associated Diagnosis Comments PLASMA COMPREHENSIVE METABOLIC PANEL Routine 12/07/2013 11:06 AM RETAIL PHARMACIST URINALYSIS Routine 12/07/2013 10:42 AM RETAIL PHARMACIST DISCHARGE LABORATORY CUMULATIVE REPORT Routine 12/07/2013 12:00 AM RETAIL PHARMACIST documented in this encounter Results * Plasma comprehensive metabolic panel (12/07/2013 11:06 AM RETAIL PHARMACIST) Sodium 141 135 - 145 mmol/L HISTORICAL [...] HISTORICAL RESULTS Plasma 12/07/2013 11:0 6 AM RETAIL PHARMACIST Evie Licona MD LAB BLOOD ORDERABLES Final Result Performing Organization Address City/[facility] de Phone Number HISTORICAL RESULTS * Urinalysis (12/07/2013 10:42 AM RETAIL PHARMACIST) Pathologist [facility] Color, ur Light-Yellow Yellow HISTORI BART RESULTS [...] HISTORICAL RESULTS Urine 12/07/2013 10:4 2 AM RETAIL PHARMACIST Evie Licona MD LAB BLOOD ORDERABLES Final Result HISTORICAL RESULTS * Discharge Laboratory Cumulative Report (12/07/2013 12:00 AM RETAIL PHARMACIST) 12/07/2013 Narrative HISTORICAL RESULTS - 12/07/2013 3:32 PM RETAIL PHARMACIST ?[facility] [place] [facility] ?Department of Laboratories ? One [facility] [place] [facility] [place] ? [address] [address] Patient Name: ??YARIEL HILL Aleena Med Rec Number: [id number] Fin Number: ?[id number] Date: ?1970 Sex/Age: ? Male 43 years Admit Date: ?12/07/2013 Discharge Date: 12/07/2013 Doctor: ?[facility] , [facility] Facility: ?[facility] [place] [facility] Location: ?[facility] Chart Printed: 12/07/2013 15:32 [...] ?URINALYSIS ?Macroscopic ?Test: Color ? Clarity ??Specific [place] ? Reference: [Yellow] ?[Clear] ??[1.003-1.030] ? Units: [...]
--- OUTSIDE RECORDS SUMMARY | 2024-11-07 16:35 | XMS_ITS | Encounter Summary ---
Author Organization [facility] Address [address] [place] [address] Care Team Providers Care Drafter Civil Engineering Name Role Phone Darius Fernández MD Primary Care Provider [phone] Reason for Visit * Reason Onset Date Comments Dr. Fernández-medical question 10/21/2017 Encounter Details Date Type Department Care Team ([facility] Contact Info) Description 10/21/2017 Telephone [facility] at the [address] [place] [address] Darius Fernández MD [address] [place] [address] [address] [place], [place] [id number] Dr. Fernández-medical question Social History Tobacco Use Types Packs/Day Years Used Date Smoking Tobacco: Every Day Cigarettes Smokeless Tobacco: Never Alcohol Use Standard Drinks/Week Comments Yes 0 (1 standard drink = 0.6 oz pur e alcohol) Sex and Gender Information Value Date Recorded Sex Assigned at Not on file Legal Sex Male 2:37 PM DEER FARMER Gender Identity Not on file Sexual Orientation Not on file documented as of this encounter Miscellaneous Notes * Telephone Encounter - Darius Fernández MD - 10/27/2017 1:39 PM CST Recommended robitussin dm FARMER * Telephone Encounter - Purvi Mcduffie MA - 10/21/2017 4:43 PM CST Fwd to Dr Fernández FARMER * Telephone Encounter - Simran Osorio - 10/21/2017 4:18 PM CST [facility] WARM TRANSFER ATTEMPT, NO ANSWER Warm Transfer attempts unsuccessful. Sending High-Priority Message. Patient is returning Dr. Fernández's call. Please contact patient at [phone]. Okay to leave a voicemail. FARMER * Telephone Encounter - Darius Fernández MD - 10/21/2017 2:57 PM CST Pt not home Left message that I called and asked him to call back FARMER * Telephone Encounter - Beckie Bassett MA - 10/21/2017 1:12 PM CST , pt has no fever, green sputum. No earache. Nose is slightly stuffy. Would like cough medicine called in to [phone] [facility] Address: [address] [place] [address] FARMER * Telephone Encounter - Nupur Schafer - 10/21/2017 12:54 PM CST Message being sent to provider, beauty sales consultant is currently at capacity. Symptom Based Call [...] on his phone if he doesn't answer. FARMER documented in this encounter Plan of Treatment Not on file documented as of this encounter Visit Diagnoses Not on filedocumented in this encounter Care Teams Drafter Civil Engineering Relationship Specialty Start Date End Date Darius Fernández MD [facility] [address] Zach ESCOBAR [address] [place] [address] PCP - General 01/28/17 06/08/18 documented as of this encounter
--- OUTSIDE RECORDS SUMMARY | 2024-11-07 16:35 | XMS_ITS | Encounter Summary ---
Author Organization [facility] Address [address] [place] [address] Care Team Providers Care Elementary Educator Name Role Phone Darius Fernández MD Primary Care Provider [phone] Reason for Visit * Reason Onset Date Comments roni-test Results 06/20/2017 Encounter Details Date Type Department Care Team ([facility] Contact Info) Description 06/20/2017 Telephone [facility] at the [address] [place] [address] Darius Fernández MD [address] [place] [address] [place], [place] [id number] roni-test Results Social History Tobacco Use Types Packs/Day Years Used Date Smoking Tobacco: Every Day Cigarettes Smokeless Tobacco: Never Alcohol Use Standard Drinks/Week Comments Yes 0 (1 standard drink = 0.6 oz pur e alcohol) Sex and Gender Information Value Date Recorded Sex Assigned at Not on file Legal Sex Male 2:37 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 ? ACC# Date Time Exam ?? [id number] Jun 17, 2017 15:49:00 26359 Hand minimum 3 views L ?? EXAMINATION: [...] test: 06/17/17 Where test was performed: [facility] Additional Questions/Comments: Patient called to request results. Please assist documented in this encounter Plan of Treatment Not on file documented as of this encounter Visit Diagnoses Not on filedocumented in this encounter Care Teams Elementary Educator Relationship Specialty Start Date End Date Darius Fernández MD [facility] [address] Zach ESCOBAR [address] [place] [address] PCP - General 01/28/17 06/08/18 documented as of this encounter
--- OUTSIDE RECORDS SUMMARY | 2024-11-07 16:35 | XMS_ITS | Encounter Summary ---
Author Organization [facility] Healthcare Address [address] [place] [address] Care Team Providers Care Senior Cytotechnologist Name Role Phone Darius Fernández MD Primary Care Provider [phone] Teresita Painting MD Primary Care Prov ider Reason for Visit * Reason Onset Date Comments vitamin d low 06/29/2018 Encounter Details Date Type Department Care Team (Late st Contact Info) Description 06/29/2018 Telephone [facility] [address] [facility] [address] [place] [address] Darius Fernández MD 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 All Reece [phone] documented in this encounter Plan of Treatment [...] filedocumented in this encounter Care Teams Senior Cytotechnologist Relationship Specialty Start Date End Date Darius Fernández MD [facility] [address] [place] [address] PCP - General 06/14/18 07/25/18 Teresita Painting MD [address] [place], [place] [address]FELIX ESCOBAR [address] [place] [address] PCP - General Obstetrics and Gynecology 07/26/1807/02 documented as of this encounter
--- OUTSIDE RECORDS SUMMARY | 2024-11-07 16:35 | XMS_ITS | Encounter Summary ---
Author Organization [facility] Healthcare Address [address] [place] [address] Care Team Providers Care Sous Chef Kitchen Manager Name Role Phone Hung Gray MD Primary Care Provider [phone] Encounter Details Date Type Department Care Team (Late st Contact Info) Description 06/17/2017 3:38 PM CDT - 06/17/2017 11:59 PM T Hospital Encounter [facility] OP INTERIM [phone] Hung Gray MD [facility] [address] Serrano [address] [phone] Left hand pain Discharge Disposition: Discharge to home or self care Social History Tobacco Use Types Packs/Day Years Used Date Smoking Tobacco: Every Day Cigarettes Smokeless Tobacco: Never Alcohol Use Standard Drinks/Week Comments Yes 0 (1 standard drink = 0.6 oz pur e alcohol) Sex and Gender Information Value Date Recorded Sex Assigned at Not on file Legal Sex Male 2:37 PM PRODUCT DEVELOPMENT CARPENTER Gender Identity Not on file Sexual Orientation [...] agrees with it. ACC# ??Date Time ??Exam [id number] Jun 17, 2017 15:49:00 10302 Hand minimum 3 views L EXAMINATION: ?Left [...] VERNON M.D. on Jun 17 2017 ??4:51P [id number] [facility] Order ID: [id number] Procedure Note Miscellaneous, Not In File / Provider, MD Rhett - 06/17/2017 HUNG VERNON M.D. TANG DYSON M.D. FINAL REPORT The radiology attending physician has personally reviewed this study, and has reviewed and/or edited this written report and agrees with it. ACC# Date Time Exam [id number] Jun 17, 2017 15:49:00 02516 Hand minimum 3 views L EXAMINATION: Left [...] VERNON M.D. on Jun 17 2017 4:51P [id number] [facility] Order ID: [id number] us Not In File Miscellaneous IMG XR PROCEDURES Carrie l Result documented in this encounter Visit Diagnoses Diagnosis Left hand pain Pain in soft tissues of limb documented in this encounter Care Teams Sous Chef Kitchen Manager Relationship Specialty Start Date End Date Hung Gray MD [facility] [address] Zach ESCOBAR [address] [place] [address] PCP - General 01/28/17 06/08/18 documented as of this encounter
--- OUTSIDE RECORDS SUMMARY | 2024-11-07 16:35 | XMS_ITS | Encounter Summary ---
Author Organization [facility] Facility Care Team Providers Care Tar And Ammonia Pump Operator Name Role Phone Unavailable Primary Care Provider Unavailabl e Encounter Details Date Type Department Care Team (Late st Contact Info) Description 10/12/2013 10:00 AM PUBLIC HEALTH REGISTRAR - 10/12/2013 4:00 PM [facility] Hospital Encounter [facility] CL[facility]CON[facility] Horan Jr., MD [address] [place] [address] Cervicalgia; Pain in joint, shoulder region; Essential hypertension; Acute pancreatitis; Encounter for long-term (current) use of other medications Social History Tobacco Use Types Packs/Day Years Used Date Smoking Tobacco: Never Assessed Sex and Gender Information Value Date Recorded Sex Assigned at Not on file Legal Sex Male 2:37 PM PUBLIC HEALTH REGISTRAR Gender Identity Not on file Sexual Orientation Not on file documented as of this encounter Plan of Treatment Not on file documented as of this encounter Visit Diagnoses Diagnosis Cervicalgia Pain in joint, shoulder region Essential hypertension Unspecified essential hypertension Acute pancreatitis Encounter for long-term (current) use of other medications documented in this encounter
--- OUTSIDE RECORDS SUMMARY | 2024-11-07 16:35 | XMS_ITS | Encounter Summary ---
Author Organization [facility] Facility Care Team Providers Care Firer Retort Name Role Phone Unavailable Primary Care Provider Unavailabl e Encounter Details Date Type Department Care Team (Late st Contact Info) Description 07/10/2013 - 07/10/2013 11:59 PM CDT Hospital Encounter [facility] Brachial neuritis Social History Tobacco Use Types Packs/Day Years Used Date Smoking Tobacco: Never Assessed Sex and Gender Information Value Date Recorded Sex Assigned at Not on file Legal Sex Male 2:37 PM BUSINESS ASST Gender Identity Not on file Sexual Orientation [...] agrees with it. ACC# ??Date Time ??Exam [id number] Jul 10, 2013 20:39:00 93973 MRI Cervical Spine wo cont EXAMINATION: ? [...] agrees with it. ACC# Date Time Exam [id number] Jul 10, 2013 20:39:00 26239 MRI Cervical Spine wo cont EXAMINATION: Cervical [...]
--- OUTSIDE RECORDS SUMMARY | 2024-11-07 16:35 | XMS_ITS | Encounter Summary ---
Author Organization [facility] Facility Care Team Providers Care Telegraph Office Telephone Clerk Name Role Phone Unavailable Primary Care Provider Unavailabl e Encounter Details Date Type Department Care Team (Latest Contact Info) Description 07/23/2016 10:28 AM CDT - 07/23/2016 11:59 PM T Hospital Encounter [facility] Christiano Yin MD [address] [address] Uncomplicated alcohol abuse; Essential (primary) hypertension; Other [...] on file Legal Sex Male 2:37 PM BACK END ENGINEER Gender Identity Not on file Sexual Orientation Not on file documented as of this encounter Plan of Treatment Not on file documented as of this encounter Visit Diagnoses Diagnosis Uncomplicated alcohol abuse Essential (primary) hypertension Unspecified essential hypertension Other chronic pancreatitis (HCC) Nicotine dependence, uncomplicated 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
--- OUTSIDE RECORDS SUMMARY | 2024-11-07 16:35 | XMS_ITS | Encounter Summary ---
Author Organization [facility] Facility Care Team Providers Care Mine Technician Name Role Phone Unavailable Primary Care Provider Unavailabl e Encounter Details Date Type Department Care Team (Latest Contact Info) Description 01/14/2015 8:20 PM CDT - 01/15/2015 6:32 PM CDT Hospital Encounter [facility] Nonspecific abnormal finding in stool [...] on file Legal Sex Male 2:37 PM MOLECULAR GENETIC PATHOLOGIST Gender Identity Not on file Sexual [...] AM CDT Patient: Yariel Hill Reg No: [id number] [facility] #: [id number] Admit Dt.: 01/14/2015 : 1970 Room No: [...] with high density material which could be franchise sales representative of some hemorrhage. We will [...] Noel M.D. 02/06/2015 04:53 P Jenn Robbins/homer #[id number] Editing MT: TD: 01/14/2015 20:16:00 cc: Rajinder [...] (specimen) 01/15/2015 11:42 AM CDT Rajinder Adriana Noel LAB BLOOD [...] for the diagnosis of myocardial infarction (Third Mineral Definition of Myocardial Infarction. ??J Am Marcia Cardiol 2012;60:1581-98). Current interpretive data was last revised on 13. Serum 01/15/2015 2:43 AM CDT Reevoo LAB BLOOD ORDERABLES Final Res ult Performing Organization Address [facility] Co de Phone Number HISTORICAL RESULTS * Blood ABO, Rh, indirect ab screen (01/15/2015 2:43 AM CDT) ABO, Rho(D) O Positive HISTORI BART RESULTS Go, indirect Negative HISTORICAL RESULTS Blood specimen (specimen) 01/15/2015 2:43 AM CDT Symphony Concierge LAB BLOOD ORDERABLES Final Res ult Performing Organization Address [facility] Co de Phone Number [...] HISTORICAL RESULTS - 01/15/2015 7:20 PM CDT ?[facility] ?Department of Laboratories ? [address] [facility] [place] ? [place], [place] [address] Patient Name: ??YARIEL HILL [facility] Rec Number: [id number] Fin Number: ?[id number] Date: ?1970 Sex/Age: ? Male 44 years Admit Date: ?01/14/2015 Discharge Date: 01/15/2015 Doctor: ?MEDICINE , 1302 Facility: ?[facility] Location: ?[id number] Chart Printed: 01/15/2015 19:20 ?? * Abnormal [...] for the diagnosis of myocardial infarction (Third Mineral Definition of Myocardial Infarction. ??J Am Marcia [...] ?Test: Neut Pct Auto ??Lymph Pct Auto ??[place] Pct Auto ? Reference: [38.7-74.5] ?[20.0-54.3] ? [...] ? 0.6 ?4.8 ?Test: Lymph Abs Auto ??[place] Abs Auto ??Eos Abs Auto ? Reference: [...] updated copy of the Tool Book at [email or web address]/pharmacy.nsf Current Interpretive Data was last revised 2012. [...] agrees with it. ACC# ??Date Time ??Exam [id number] Jan 14, 2015 17:17:[address] Abd & Pelvis wwo cont EXAMINATION: [...] BRAVO M.D. on Jan 15 2015 ??8:21A [id number] Procedure Note Provider, MD Rhett - 02/22/2017 VERÓNICA BRAVO M.D. SHARIF JUAREZ, FINAL REPORT The radiology attending physician has personally reviewed this study, and has reviewed and/or edited this written report and agrees with it. ACC# Date Time Exam [id number] Jan 14, 2015 17:17:[address] Abd & Pelvis wwo cont EXAMINATION: [...] BRAVO M.D. on Jan 15 2015 8:21A [id number] us Historical Provider MD MELÉNDEZ CT PROCEDURES [...] updated copy of the Tool Book at [email or web address]/bjc/pharmacy.nsf Current Interpretive Data was last revised 2012. Plasma 01/14/2015 5:03 PM CDT Hung EMERSON LAB BLOOD ORDERABLES Final R esult Performing Organization Address [facility] de Phone Number HISTORICAL RESULTS * Blood ABO, Rh, indirect ab screen (01/14/2015 5:03 PM CDT) Go, indirect Negative HISTORICAL RESULTS ABO, Rho(D) O Positive HISTORI BART RESULTS Blood specimen (specimen) 01/14/2015 5:03 PM CDT Hung EMERSON LAB BLOOD ORDERABLES Final R esult Performing Organization Address [facility] de Phone Number HISTORICAL RESULTS * [...] ORDERABLES Fin al Result Performing Organization Address [facility] de Phone Number HISTORICAL RESULTS * Serum lipase (01/14/2015 1:30 PM CDT) Lip 29 0 - 99 Units/L HISTORICAL RESULTS Serum 01/14/2015 1:30 PM CDT Dung Neville MD LAB BLOOD ORDERABLES Fin al Result Performing Organization Address [facility] de Phone Number HISTORICAL RESULTS * Blood D-dimer (01/14/2015 1:30 PM CDT) Pathologist [facility] D-dimer 129 110 - 230 ng/ml D-DU [...] ORDERABLES Fin al Result Performing Organization Address [facility]/ZIP Co de Phone Number HISTORICAL RESULTS * (ABNORMAL) Plasma basic metabolic panel (01/14/2015 1:30 PM CDT) [facility] Sodium 141 135 - 145 mmol/L HISTORICAL [...] ORDERABLES Final Res ult Performing Organization Address [facility] Co de Phone Number HISTORICAL RESULTS * Serum troponin I (01/14/2015 1:30 PM CDT) Pathologist [facility] Troponin I <0.03 0.00 - 0.03 ng/ml HISTORICAL RESULTS Comment: Interpretive Data Serial determinations are recommended for the diagnosis of myocardial infarction (Third Mineral Definition of Myocardial Infarction. ??J Am Marcia [...] agrees with it. ACC# ??Date Time ??Exam [id number] Jan 14, 2015 13:13:00 91779 Chest 2 views Frontl & Lat EXAMINATION: [...] HUNG M.D. on Jan 14 2015 ??1:51P [id number] Procedure Note Provider, MD Rhett - 02/22/2017 EJ HUNG M.D. LANDY BANGURA M.D. FINAL REPORT The radiology attending physician has personally reviewed this study, and has reviewed and/or edited this written report and agrees with it. ACC# Date Time Exam [id number] Jan 14, 2015 13:13:00 91511 Chest 2 views Frontl & Lat EXAMINATION: [...] HUNG M.D. on Jan 14 2015 1:51P [id number] us Historical Provider MD MELÉNDEZ XR PROCEDURES [...]
--- OUTSIDE RECORDS SUMMARY | 2024-11-07 16:35 | XMS_ITS | Encounter Summary ---
Author Organization [facility] Facility Care Team Providers Care Clinical Review Nurse Name Role Phone Unavailable Primary Care Provider Unavailabl e Encounter Details Date Type Department Care Team (Late st Contact Info) Description 10/26/2014 2:54 PM COATING MACHINE FEEDER - 10/26/2014 9:34 PM COATING MACHINE FEEDER Hospital Encounter [facility] Cheikh Gusman MD [address] [facility] [address] [place] [address] Abdominal pain; Esophageal reflux; Essential hypertension; Cyst and pseudocyst of pancreas; Encounter for long-term (current) use of other medications; Tobacco use disorder Social History Tobacco Use Types Packs/Day Years Used Date Smoking Tobacco: Never Assessed Sex and Gender Information Value Date Recorded Sex Assigned at Not on file Legal Sex Male 2:37 PM COATING MACHINE FEEDER Gender Identity Not on file Sexual Orientation Not on file documented as of this encounter Plan of Treatment Not on file documented as of this encounter Procedures Procedure Name Priority Date/Time Associated Diagnosis Comments SERUM LIPASE Routine 10/26/2014 3:52 PM COATING MACHINE FEEDER PLASMA HEPATIC FUNCTION PANEL Routine 10/26/2014 3:52 PM COATING MACHINE FEEDER PLASMA BASIC METABOLIC PANEL Routine 10/26/2014 3:52 PM COATING MACHINE FEEDER BLOOD CELL COUNT (CBC) Routine 10/26/2014 3:52 PM COATING MACHINE FEEDER DISCHARGE LABORATORY CUMULATIVE REPORT Routine 10/26/2014 12:00 AM COATING MACHINE FEEDER documented in this encounter Results * Plasma hepatic function panel (10/26/2014 3:52 PM COATING MACHINE FEEDER) Pathologist [facility] Protein, pl 7.3 6.5 - 8.5 g/dl HISTORICAL RESULTS Alb 4.5 3.6 - 5.0 g/dl HISTORICAL RESULTS Bilirubin 0.4 0.3 - 1.1 mg/dl HISTORICAL RESULTS Bilirubin, direct 0.1 0.0 - 0.3 mg/dl HISTORICAL RESULTS Alk phos 60 38 - 126 Units/L HISTORICAL RESULTS AST 29 11 - 47 Units/L HISTORICAL RESULTS ALT 14 7 - 53 Units/L HISTORICAL RESULTS Plasma 10/26/2014 3:52 PM COATING MACHINE FEEDER Anirudh Carrillo MD LAB BLOOD ORDERABLES Final Res ult Performing Organization Address [facility] de Phone Number HISTORICAL RESULTS * (ABNORMAL) Plasma basic metabolic panel (10/26/2014 3:52 PM COATING MACHINE FEEDER) [facility] Sodium 139 135 - 145 mmol/L HISTORICAL [...] mg/dl HISTORICAL RESULTS Plasma 10/26/2014 3:52 PM COATING MACHINE FEEDER Anirudh Carrillo MD LAB BLOOD ORDERABLES Final Res ult Performing Organization Address [facility] de Phone Number HISTORICAL RESULTS * Serum lipase (10/26/2014 3:52 PM COATING MACHINE FEEDER) Pathologist [facility] Lip 35 0 - 99 Units/L HISTORICAL RESULTS Serum 10/26/2014 3:52 PM COATING MACHINE FEEDER us Anirudh Carrillo MD LAB BLOOD ORDERABLES Final Res ult HISTORICAL RESULTS * (ABNORMAL) Blood cell count (CBC) (10/26/2014 3:52 PM COATING MACHINE FEEDER) MCH 32.1 26.7 - 33.7 pg HISTORICAL [...] RESULTS Blood specimen (specimen) 10/26/2014 3:52 PM COATING MACHINE FEEDER us Anirudh Carrillo MD LAB BLOOD ORDERABLES Final Res ult HISTORICAL RESULTS * Discharge Laboratory Cumulative Report (10/26/2014 12:00 AM COATING MACHINE FEEDER) 10/26/2014 Narrative HISTORICAL RESULTS - 10/27/2014 3:17 AM COATING MACHINE FEEDER ?[facility] ?Department of Laboratories ? [facility] [place] ? [place] [address] Patient Name: ??RUDYYARIEL CASPER Med Rec Number: [id number] Fin Number: ?[id number] Date: ?1970 Sex/Age: ? Male 44 years Admit Date: ?10/26/2014 Discharge Date: 10/26/2014 Doctor: ?Cheikh Damon Facility: ?[facility] Location: ?EM3-1 Chart Printed: 10/27/2014 03:17 [...] ?Test: Neut Pct Auto ??Lymph Pct Auto ??[place] Pct Auto ? Reference: [38.7-74.5] ?[20.0-54.3] ? [4.3-13.5] ? Units: % ?% ? % 10/26/2014 ?? 15:52:18 ?? 69.0 ? 23.6 ?4.8 ?Test: Eos Pct Auto ??Bas[place] Pct Auto ??Neut Abs Auto ? Reference: [0.0-6.0] ? [0.0-3.0] ?[1.8-6.6] ? Units: % ? % ?K/cumm 10/26/2014 ?? 15:52:18 ?? 2.0 ? 0.6 ?6.8 ??H ? AUTOMATED WHITE CELL DIFFERENTIAL ?Test: Lymph Abs Auto ??[place] Abs Auto ??Eos Abs Auto ? Reference: [...]
--- OUTSIDE RECORDS SUMMARY | 2024-11-07 16:35 | XMS_ITS | Encounter Summary ---
Author Organization [facility] Healthcare Address [address] [place] [address] Care Team Providers Care Heel Top Lift Splitter Name Role Phone Unavailable Primary Care Provider Unavailabl e Encounter Details Date Type Department Care Team (Latest Contact Info) Description 12/13/2014 3:13 PM STONEMASON APPRENTICE - 12/13/2014 6:42 PM STONEMASON APPRENTICE Hospital Encounter [facility] [place] [address] [address] Abnormal levels of other serum enzymes; Tobacco use disorder Social History Tobacco Use Types Packs/Day Years Used Date Smoking Tobacco: Never Assessed Sex and Gender Information Value Date Recorded Sex Assigned at Not on file Legal Sex Male 2:37 PM STONEMASON APPRENTICE Gender Identity Not on file Sexual Orientation Not on file documented as of this encounter Last Filed Vital Signs Vital Sign Reading Time Taken Comments Blood Pressure 129/76 12/13/2014 3:26 PM STONEMASON APPRENTICE Pulse 82 12/13/2014 3:26 PM STONEMASON APPRENTICE Temperature 37.3 ??C (99.2 ??F) 12/13/2014 3:26 PM CS T Respiratory Rate - - Oxygen Saturation 100% 12/13/2014 3:26 PM STONEMASON APPRENTICE Inhaled Oxygen Concentration - - Weight 55.3 kg (122 lb) 12/13/2014 3:26 PM STONEMASON APPRENTICE Height 170.2 cm (5' 7 ) 12/13/2014 3:26 PM STONEMASON APPRENTICE Body Mass Index 19.11 12/13/2014 3:26 PM STONEMASON APPRENTICE documented in this encounter Plan of Treatment Not on file documented as of this encounter Procedures Procedure Name Priority Date/Time Associated Diagnosis Comments UA WITH CULTURE REFLEX Routine 5 5:45 PM STONEMASON APPRENTICE CBC WITH AUTO DIFFERENTIAL Routine 12/13/2014 5:03 PM STONEMASON APPRENTICE LIPASE Routine 12/13/2014 5:03 PM STONEMASON APPRENTICE AMYLASE Routine 12/13/2014 5:03 PM STONEMASON APPRENTICE COMPREHENSIVE METABOLIC PANEL Routine 12/13/2014 5:03 PM STONEMASON APPRENTICE documented in this encounter Results * (ABNORMAL) UA with Culture Reflex (12/13/2014 5:45 PM STONEMASON APPRENTICE) Ur Collection Type CLEAN CATCH 12/13/2014 6:07 PM [employer] HISTORICAL RESULTS Ur Culture Indicated? C&S NOT INDICATED 12/13/2014 6:07 PM [employer] HISTORICAL RESULTS Urine Color COLORLESS YELLOW 12/13/2014 6:07 PM [employer] HISTORICAL RESULTS Urine Clarity CLEAR CLEAR 12/13/2014 6:07 PM [employer] HISTORICAL RESULTS Urine Glucose (UA) NORMAL NORMAL mg/dL 12/13/2014 6:07 PM [employer] HISTORICAL RESULTS Urine Bilirubin NEGATIVE NEGATIVE mg/dl 12/13/2014 6:07 PM [employer] HISTORICAL RESULTS Urine Ketones NEGATIVE NEGATIVE mg/dL 12/13/2014 6:07 PM [employer] HISTORICAL RESULTS Ur Specific [place] 1.003(L) 1.005 - 1.025 12/13/2014 6:07 PM [employer] HISTORICAL RESULTS Urine Blood NEGATIVE NEGATIVE mg/dl 12/13/2014 6:07 PM [employer] HISTORICAL RESULTS Urine pH 7.0 5.0 - 8.0 12/13/2014 6:07 PM [employer] HISTORICAL RESULTS Urine Protein NEGATIVE NEGATIVE mg/dL 12/13/2014 6:07 PM [employer] HISTORICAL RESULTS Urine Urobilinogen NORMAL NORMAL mg/dL 12/13/2014 6:07 PM [employer] HISTORICAL RESULTS Urine Nitrite NEGATIVE NEGATIVE 12/13/2014 6:07 PM [employer] HISTORICAL RESULTS Ur Leukocyte Esterase NEGATIVE NEGATIVE Khalif/ul Ur Microscopic Review Not Indicated 12/13/2014 5:45 PM STONEMASON APPRENTICE 12/13/2014 6:02 PM STONEMASON APPRENTICE Narrative [facility] HISTORICAL RESULTS - 12/13/2014 6:07 PM STONEMASON APPRENTICE Collected By LMD ?? [address] LAB URINE ORDERABLES Final Re sult Performing Organization Address [facility]/ZIP Co de Phone Number [facility] HISTORICAL RESULTS * (ABNORMAL) Lipase (12/13/2014 5:03 PM STONEMASON APPRENTICE) Lipase 193(H) 13 - 60 U/L 12/13/2014 5:03 PM STONEMASON APPRENTICE 12/13/2014 5:06 PM STONEMASON APPRENTICE Lisa Bustamante LAB BLOOD ORDERABLES Final Resu lt Performing Organization Address [facility] de Phone Number [facility] HISTORICAL RESULTS * Comprehensive metabolic panel (12/13/2014 5:03 PM STONEMASON APPRENTICE) Sodium 141 135 - 145 mmol/L Potassium 4.1 3.3 - 5.1 mmol/L Chloride 100 96 - 108 mmol/L Carbon Dioxide 29 22 - 32 mmol/L Anion Gap 12 7 - 16 Glucose 78 70 - 100 mg/dL Comment:As of October 02 14 new normal range in use. BUN 7 6 - 20 mg/dL Creatinine 0.9 0.5 - 1.3 mg/dL 12/13/2014 5:31 PM [employer] HISTORICAL RESULTS Kidney Disease Stage > 90 mL/MIN 12/13/2014 5:31 PM [employer] HISTORICAL RESULTS Comment: NOTE; ??The GFR is [...] 8.6 - 10.0 mg/dL 12/13/2014 5:31 PM [employer] HISTORICAL RESULTS Total Protein 7.5 6.4 - 8.3 g/dL 12/13/2014 5:31 PM [employer] HISTORICAL RESULTS Albumin 4.5 3.5 - 5.2 g/dL 12/13/2014 5:31 PM [employer] HISTORICAL RESULTS Globulin 3.0 2.3 - 3.5 gm/dL 12/13/2014 5:31 PM [employer] [facility] [employer] HISTORICAL RESULTS Albumin/Globulin Ratio 1.5 1.1 - 1.8 12/13/2014 5:31 PM [employer] HISTORICAL RESULTS Total Bilirubin 0.4 0.0 - 1.2 mg/dL 12/13/2014 5:31 PM [employer] [facility] [employer] HISTORICAL RESULTS AST 19 0 - 40 U/L 12/13/2014 5:31 PM [employer] HISTORICAL RESULTS ALT 9 0 - 41 U/L 12/13/2014 5:31 PM [employer] HISTORICAL RESULTS Alkaline Phosphatase 58 40 - 129 U/L 12/13/2014 5:03 PM STONEMASON APPRENTICE 12/13/2014 5:06 PM [facility] Lisa Yost [place] LAB BLOOD ORDERABLES Final Resu lt [facility] HISTORICAL RESULTS * (ABNORMAL) CBC with auto differential (12/13/2014 5:03 PM [facility]) WBC 7.5 4.6 - 10.2 x10 [...] Lymph % 25.0 5.0 - 45.0 % [place] % 5.2 3.0 - 15.0 % Eos [...] - 0.2 x10 3/ul 12/13/2014 5:03 PM STONEMASON APPRENTICE 12/13/2014 5:06 PM STONEMASON APPRENTICE us Lisa Bustamante LAB BLOOD ORDERABLES Final Resu lt [facility] HISTORICAL RESULTS * (ABNORMAL) Amylase (12/13/2014 5:03 PM STONEMASON APPRENTICE) Amylase 137(H) 28 - 100 U/L 12/13/2014 5:03 PM STONEMASON APPRENTICE 12/13/2014 5:06 PM STONEMASON APPRENTICE us Lisa Bustamante LAB BLOOD ORDERABLES Final Resu lt [facility] HISTORICAL RESULTS documented in this encounter Visit Diagnoses Diagnosis Abnormal levels of other serum enzymes Tobacco use disorder documented in this encounter
--- OUTSIDE RECORDS SUMMARY | 2024-11-07 16:35 | XMS_ITS | Encounter Summary ---
Author Organization [facility] Facility Care Team Providers Care Animal Laboratory Technician Name Role Phone Unavailable Primary Care Provider Unavailabl e Encounter Details Date Type Department Care Team (Late st Contact Info) Description 12/03/2014 9:15 PM SHIP PAINTER HELPER - 12/03/2014 9:27 PM SHIP PAINTER HELPER Hospital Encounter [facility] Social History Tobacco Use Types Packs/Day Years Used Date Smoking Tobacco: Never Assessed Sex and Gender Information Value Date Recorded Sex Assigned at Not on file Legal Sex Male 2:37 PM SHIP PAINTER HELPER Gender Identity Not on file Sexual Orientation Not on file documented as of this encounter Plan of Treatment Not on file documented as of this encounter Visit Diagnoses Not on filedocumented in this encounter
--- OUTSIDE RECORDS SUMMARY | 2024-11-07 16:35 | XMS_ITS | Encounter Summary ---
Author Organization [facility] Facility Care Team Providers Care Senior Media Director Name Role Phone Unavailable Primary Care Provider Unavailabl e Encounter Details Date Type Department Care Team (Late st Contact Info) Description 04/06/2013 - 04/06/2013 11:59 PM CDT Hospital Encounter [facility] Cyst and pseudocyst of pancreas Social History Tobacco Use Types Packs/Day Years Used Date Smoking Tobacco: Never Assessed Sex and Gender Information Value Date Recorded Sex Assigned at Not on file Legal Sex Male 2:37 PM CONFIDENTIAL SECRETARY Gender Identity Not on file Sexual Orientation [...] M.D. FINAL REPORT ACC# ??Date Time ??Exam [id number] Apr 06, 2013 07:42:00 [id number] Sono Abd Complt EXAMINATION: ?? COMPLETE ??ABDOMINAL [...] M.D. FINAL REPORT ACC# Date Time Exam [id number] Apr 06, 2013 07:42:00 [id number] Sono Abd Complt EXAMINATION: COMPLETE ABDOMINAL SONOGRAM [...]
--- OUTSIDE RECORDS SUMMARY | 2024-11-07 16:35 | XMS_ITS | Encounter Summary ---
Author Organization [facility] Healthcare Address [address] [place] [address] Care Team Providers Care Cargo Router Name Role Phone Teresita Painting MD Primary Care Prov ider Encounter Details Date Type Department Care Team (Late st Contact Info) Description 06/13/2018 3:55 PM CDT Lab [facility] [address] [place] [id number] Healthcare maintenance; Anemia, unspecified type; Vitamin D deficiency Social History Tobacco Use Types Packs/Day Years Used Date Smoking Tobacco: Every Day Cigarettes Smokeless Tobacco: Never Alcohol Use Standard Drinks/Week Comments Yes 0 (1 standard drink = 0.6 oz pur e alcohol) Sex and Gender Information Value Date Recorded Sex Assigned at Not on file Legal Sex Male 2:37 PM PIPE AND TANK FABRICATOR Gender Identity Not on file Sexual [...] (06/13/2018 3:56 PM CDT) RPR Nonreactive Nonreactive [facility] Blood specimen (specimen) 06/13/2018 3:56 PM CDT 06/13/2018 6:30 PM CDT [facility]ative [facility] - 06/13/2018 7:47 PM CDT us Christiano Heller MD LAB MICROBIOLOGY - GENERA L ORDERABLES Final Result [facility] Department [place] [address] * N. gonorrhoeae/C. trachomatis amplification test Urine (06/13/2018 3:56 PM CDT) Report Final Report: Negative for: ??Chlamydia trachomatis rRNA Negative for: ??Neisseria gonorrhoeae rRNA [facility] Urine 06/13/2018 3:56 PM CDT 06/13/2018 5:34 PM CDT Narrative [facility] - 06/14/2018 2:01 PM CDT Testing performed by the Gen-Probe [employer] APTIMA Combo 2 Assay. This nucleic acid amplification test (NAAT) detects ribosomal RNA (rRNA) from Chlamydia trachomatis and Neisseria gonorrhoeae using target capture,and Avionic Technician-Mediated Amplification (TMA). This test is approved by the [place] Food and Drug Administration for endocervical, vaginal, and male urethral swab specimens, in addition to male and female urine specimens. The performance characteristics for these specimen types have been verified by the [facility].The performance characteristics of this assay for pharyngeal and rectal specimens collected from cervical swab collection devices have been validated and verified by the [facility]. Verification studies support a lack [...] MICROBIOLOGY - GENERA L ORDERABLES Final Result [facility] [place] [address] * Hemoglobin A1c (06/13/2018 3:51 PM CDT) [...] children were not included. ?? (Diabetes Care 31:[id number], 2008). ??The eAG is not equivalent to a fasting glucose. Blood specimen (specimen) 06/13/2018 3:51 PM CDT 06/13/2018 4:39 PM CDT Narrative [facility] - 06/13/2018 5:07 PM CDT Christiano Heller MD LAB BLOOD ORDERABLES Carrie l Result Performing Organization Address [facility] de Phone Number [facility] Department [place] [address] * HIV-1 and HIV-2 antibody with P24 antigen immunoassay (06/13/2018 3:31 PM CDT) [facility] HIV 1/2 ab + p24 ag Nonreactive Nonreactive [facility] Comment:Negative for HIV-1 a ntigen and HIV-1/ HIV-2 antibodies. No laboratory evidence of HIV infection. If acute HIV infection is suspected, consider testing for HIV-1 RNA. Blood specimen (specimen) 06/13/2018 3:31 PM CDT 06/13/2018 4:43 PM CDT Narrative [facility] - 06/13/2018 5:33 PM CDT Christiano Heller MD LAB MICROBIOLOGY - GENERA L ORDERABLES Final Result Performing Organization Address [facility] de Phone Number [facility] [place] [address] * Comprehensive metabolic panel (06/13/2018 3:04 PM CDT) [facility] Sodium 143 135 - 145 mmol/L [facility] Potassium, pl 3.7 3.3 - 4.9 mmol/L [facility] Chloride 103 97 - 110 mmol/L [facility] CO2 30 22 - 32 mmol/L [facility] Anion gap 10 2 - 15 mmol/L [facility] BUN 10 8 - 25 mg/dL [facility] Creatinine 1.03 0.80 - 1.30 mg/dL [facility] Glucose 77 70 - 199 mg/dL [facility] [...] 2017. Calcium 9.6 8.5 - 10.3 mg/dL [facility] Bilirubin, total 0.4 0.1 - 1.2 mg/dL [facility] Protein, pl 8.0 6.5 - 8.5 g/dL [facility] Albumin 4.9 3.5 - 5.0 g/dL [facility] Alk phos 63 40 - 130 Units/L [facility] ALT 13 7 - 55 Units/L [facility] AST 21 10 - 50 Units/L [facility] Blood specimen (specimen) 06/13/2018 3:04 PM CDT 06/13/2018 4:41 PM CDT Narrative [facility] - 06/13/2018 5:22 PM CDT Christiano Heller MD LAB BLOOD ORDERABLES Carrie l Result [facility] Department [place] [address] * Folate (06/13/2018 3:04 PM CDT) Folic acid 7.1 >=5.0 ng/mL [facility] Blood specimen (specimen) 06/13/2018 3:04 PM CDT 06/13/2018 4:41 PM CDT Narrative [facility] - 06/13/2018 6:35 PM CDT Christiano Heller MD LAB BLOOD ORDERABLES Carrie l Result Performing Organization Address City/[facility]/[place] [address] * Iron profile (06/13/2018 3:04 PM CDT) [facility] Iron 77 50 - 150 mcg/dL [facility] UIBC 198 112 - 347 mcg/dL [facility] TIBC 275 250 - 400 mcg/dL [facility] Transferrin saturation 28 20 - 50 % [facility] Blood specimen (specimen) 06/13/2018 3:04 PM CDT 06/13/2018 4:41 PM CDT Narrative [facility] - 06/13/2018 6:31 PM CDT Christiano Heller MD LAB BLOOD ORDERABLES Carrie l Result Performing Organization Address [facility] [place] [address] * (ABNORMAL) Vitamin D 25 hydroxy (06/13/2018 3:04 PM CDT) [facility] Vitamin D 25-OH 18(L) 30 - 80 ng/mL [facility] Blood specimen (specimen) 06/13/2018 3:04 PM CDT 06/13/2018 4:41 PM CDT Narrative [facility] - 06/13/2018 7:12 PM CDT Christiano Heller MD LAB BLOOD ORDERABLES Carrie l Result Performing Organization Address City/[facility]/[place] [address] * Vitamin B12 (06/13/2018 3:04 PM CDT) Vitamin B12 688 230 - 1,250 pg/mL [facility] Blood specimen (specimen) 06/13/2018 3:04 PM CDT 06/13/2018 4:41 PM CDT Narrative [facility] - 06/13/2018 6:35 PM CDT us Christiano Heller MD LAB BLOOD ORDERABLES Carrie l Result [facility] [place] [address] documented in this encounter Visit Diagnoses Diagnosis Healthcare maintenance Anemia, unspecified type Vitamin D deficiency documented in this encounter Care Teams Cargo Router Relationship Specialty Start Date End Date Teresita Painting MD PCP - General Internal Medicine 06/13/18 06/13/18 documented as of this encounter
--- OUTSIDE RECORDS SUMMARY | 2024-11-07 16:35 | XMS_ITS | Encounter Summary ---
Author Organization [facility] Healthcare Address [address] [place] [address] Care Team Providers Care Remote Coders Name Role Phone Unavailable Primary Care Provider Unavailabl e Encounter Details Date Type Department Care Team (Latest Contact Info) Description 11/26/2015 4:28 PM KNITTING MACHINE FIXER - 11/26/2015 7:32 PM KNITTING MACHINE FIXER Hospital Encounter [facility] Kayy Tom MD [address] [place] [address] Major depressive disorder, single episode (CMS/HCC); Essential (primary) hypertension Social History Tobacco Use Types Packs/Day Years Used Date Smoking Tobacco: Never Assessed Sex and Gender Information Value Date Recorded Sex Assigned at Not on file Legal Sex Male 2:37 PM KNITTING MACHINE FIXER Gender Identity Not on file Sexual Orientation Not on file documented as of this encounter Last Filed Vital Signs Vital Sign Reading Time Taken Comments Blood Pressure 131/82 11/26/2015 4:44 PM KNITTING MACHINE FIXER Pulse 84 11/26/2015 4:44 PM KNITTING MACHINE FIXER Temperature 36.6 ??C (97.9 ??F) 11/26/2015 4:44 PM CS T Respiratory Rate - - Oxygen Saturation 98% 11/26/2015 4:44 PM KNITTING MACHINE FIXER Inhaled Oxygen Concentration - - Weight 59 kg (130 lb) 11/26/2015 4:44 PM KNITTING MACHINE FIXER Height 170.2 cm (5' 7 ) 11/26/2015 4:44 PM KNITTING MACHINE FIXER Body Mass Index 20.36 11/26/2015 4:44 PM KNITTING MACHINE FIXER documented in this encounter Plan of Treatment Not on file documented as of this encounter Visit Diagnoses Diagnosis Major depressive disorder, single episode Major depressive disorder, single episode, unspecified Essential (primary) hypertension Unspecified essential hypertension documented in this encounter
--- OUTSIDE RECORDS SUMMARY | 2024-11-07 16:36 | XMS_ITS | Encounter Summary ---
Author Organization [facility] Facility Care Team Providers Care Circulation Director Name Role Phone Unavailable Primary Care Provider Unavailabl e Encounter Details Date Type Department Care Team (Late st Contact Info) Description 12/29/2012 10:17 AM BACKSHOE PERSON - 12/29/2012 4:00 PM BACKSHOE PERSON Hospital Encounter [facility] Christiano Heller MD [address] [place] [address] Acute pancreatitis; Essential hypertension; Sprain of rotator cuff capsule; Tobacco use disorder; Vitamin D deficiency; Unemployed Social History Tobacco Use Types Packs/Day Years Used Date Smoking Tobacco: Never Assessed Sex and Gender Information Value Date Recorded Sex Assigned at Not on file Legal Sex Male 2:37 PM BACKSHOE PERSON Gender Identity Not on file Sexual Orientation Not on file documented as of this encounter Plan of Treatment Not on file documented as of this encounter Procedures Procedure Name Priority Date/Time Associated Diagnosis Comments PLASMA BASIC METABOLIC PANEL Routine 12/29/2012 5:54 AM BACKSHOE PERSON DISCHARGE LABORATORY CUMULATIVE REPORT Routine 12/29/2012 12:00 AM BACKSHOE PERSON documented in this encounter Results * Plasma basic metabolic panel (12/29/2012 5:54 AM BACKSHOE PERSON) Sodium 140 135 - 145 mmol/L HISTORICAL [...] mg/dl HISTORICAL RESULTS Plasma 12/29/2012 5:54 AM BACKSHOE PERSON Narrative HISTORICAL RESULTS - 12/29/2012 6:51 AM BACKSHOE PERSON LAB Frequency Standing Order? No Expiration Date: us Huber Chase MD LAB BLOOD ORDERABLES Final Result HISTORICAL RESULTS * Discharge Laboratory Cumulative Report (12/29/2012 12:00 AM BACKSHOE PERSON) 12/29/2012 Narrative HISTORICAL RESULTS - 12/29/2012 3:28 PM BACKSHOE PERSON ?[facility] ?Department of Laboratories ? [facility] [address] [place] [address] Patient Name: ??[facility] Rec Number: [id number] Fin Number: ?[id number] Date: ?1970 Sex/Age: ? Male 42 years Admit Date: ?12/29/2012 Discharge Date: 12/29/2012 Doctor: ?[facility] , [address] Facility: ?[facility] Location: ?[place] Chart Printed: 12/29/2012 15:28 [...] ORDERABLES Carrie khanna Result Performing Organization Address City/State/[facility] Co de Phone Number HISTORICAL RESULTS documented in this encounter Visit Diagnoses Diagnosis Acute pancreatitis Essential hypertension Unspecified essential hypertension Sprain of rotator cuff capsule Rotator cuff (capsule) sprain and strain Tobacco use disorder Vitamin D deficiency Unemployed Unemployment documented in this encounter
--- OUTSIDE RECORDS SUMMARY | 2024-11-07 16:36 | XMS_ITS | Encounter Summary ---
Author Organization [facility] Facility Care Team Providers Care Dip Tanker Name Role Phone Unavailable Primary Care Provider Unavailabl e Encounter Details Date Type Department Care Team (Late st Contact Info) Description 05/01/2008 2:48 PM CDT - 05/01/2008 4:00 PM CDT Hospital Encounter [facility] Glen Moncada MD [address] [facility] [address] [place] [address] Carpal tunnel syndrome; Other specified pre-operative examination Social History Tobacco Use Types Packs/Day Years Used Date Smoking Tobacco: Never Assessed Sex and Gender Information Value Date Recorded Sex Assigned at Not on file Legal Sex Male 2:37 PM EXTRACTOR MACHINE OPERATOR Gender Identity Not on file Sexual Orientation Not on file documented as of this encounter Plan of Treatment Not on file documented as of this encounter Visit Diagnoses Diagnosis Carpal tunnel syndrome Other specified pre-operative examination documented in this encounter
--- OUTSIDE RECORDS SUMMARY | 2024-11-07 16:36 | XMS_ITS | Encounter Summary ---
Author Organization [facility] Facility Care Team Providers Care Hawk Missile System Crewmember Name Role Phone Unavailable Primary Care Provider Unavailabl e Encounter Details Date Type Department Care Team (Latest Contact Info) Description 11/21/2012 10:33 AM HARDBOARD FACTORY WORKER - 11/21/2012 4:00 PM HARDBOARD FACTORY WORKER Hospital Encounter [facility] Christiano Heller MD [address] [address] Abdominal pain; Pain in joint, shoulder region; [...] on file Legal Sex Male 2:37 PM HARDBOARD FACTORY WORKER Gender Identity Not on file [...]
--- OUTSIDE RECORDS SUMMARY | 2024-11-07 16:36 | XMS_ITS | Encounter Summary ---
Author Organization [facility] Facility Care Team Providers Care Parts Room Assistant Name Role Phone Unavailable Primary Care Provider Unavailabl e Encounter Details Date Type Department Care Team (Late st Contact Info) Description 12/08/2012 10:36 AM ARCHITECTURAL TECHNOLOGIST - 12/08/2012 4:00 PM ARCHITECTURAL TECHNOLOGIST Hospital Encounter [facility] Christiano Heller MD [address] [address] Abdominal pain, epigastric; Alcohol abuse; Pain in joint, shoulder region; Vitamin D deficiency; Tobacco use disorder Social History Tobacco Use Types Packs/Day Years Used Date Smoking Tobacco: Never Assessed Sex and Gender Information Value Date Recorded Sex Assigned at Not on file Legal Sex Male 2:37 PM ARCHITECTURAL TECHNOLOGIST Gender Identity Not on file Sexual Orientation Not on file documented as of this encounter Plan of Treatment Not on file documented as of this encounter Procedures Procedure Name Priority Date/Time Associated Diagnosis Comments SERUM HELICOBACTER PYLORI AB, IGG Routine 12/08/2012 6:15 AM ARCHITECTURAL TECHNOLOGIST BLOOD CELL COUNT (CBC) Routine 12/08/2012 6:15 AM ARCHITECTURAL TECHNOLOGIST DISCHARGE LABORATORY CUMULATIVE REPORT Routine 12/08/2012 12:00 AM ARCHITECTURAL TECHNOLOGIST documented in this encounter Results * Serum Helicobacter pylori ab, IgG (12/08/2012 6:15 AM ARCHITECTURAL TECHNOLOGIST) H. pylori ab, IgG Negative Negative HISTORICAL RESULTS Serum 12/08/2012 6:15 AM ARCHITECTURAL TECHNOLOGIST Narrative HISTORICAL RESULTS - 12/12/2012 6:16 AM ARCHITECTURAL TECHNOLOGIST LAB Frequency Standing Order? No Expiration Date: Quentin Mcintyre MD LAB BLOOD ORDERABLES Final Result HISTORICAL RESULTS * (ABNORMAL) Blood cell count (CBC) (12/08/2012 6:15 AM ARCHITECTURAL TECHNOLOGIST) WBC 7.6 3.8 - 9.8 K/cumm HISTORICAL [...] RESULTS Blood specimen (specimen) 12/08/2012 6:15 AM ARCHITECTURAL TECHNOLOGIST Narrative HISTORICAL RESULTS - 12/08/2012 7:25 AM ARCHITECTURAL TECHNOLOGIST LAB Frequency Standing Order? No Expiration Date: us Quentin Mcintyre MD LAB BLOOD ORDERABLES Final Result HISTORICAL RESULTS * Discharge Laboratory Cumulative Report (12/08/2012 12:00 AM ARCHITECTURAL TECHNOLOGIST) 12/08/2012 Narrative HISTORICAL RESULTS - 12/12/2012 3:34 PM ARCHITECTURAL TECHNOLOGIST ?[facility] ?Department of Laboratories ? [address] [facility] [address] ? [place] [address] Patient Name: ??YARIEL HILL Med Rec Number: [id number] Fin Number: ?[id number] Date: ?1970 Sex/Age: ? Male 42 years Admit Date: ?12/08/2012 Discharge Date: 12/08/2012 Doctor: ?[facility] Facility: ?[facility] Location: ?[facility] Chart Printed: 12/12/2012 15:34 [...]
--- OUTSIDE RECORDS SUMMARY | 2024-11-07 16:36 | XMS_ITS | Encounter Summary ---
Author Organization [facility] Facility Care Team Providers Care Medical Sonographer Name Role Phone Unavailable Primary Care Provider Unavailabl e Encounter Details Date Type Department Care Team (Late st Contact Info) Description 09/13/2012 11:01 AM BRASS ROLLER - 09/13/2012 4:00 PM BRASS ROLLER [facility] [address] [address] Social History Tobacco Use Types Packs/Day Years Used Date Smoking Tobacco: Never Assessed Sex and Gender Information Value Date Recorded Sex Assigned at Not on file Legal Sex Male 2:37 PM BRASS ROLLER Gender Identity Not on file Sexual Orientation Not on file documented as of this encounter Plan of Treatment Not on file documented as of this encounter Visit Diagnoses Not on filedocumented in this encounter
--- OUTSIDE RECORDS SUMMARY | 2024-11-07 16:36 | XMS_ITS | Encounter Summary ---
Author Organization [facility] Facility Care Team Providers Care Customer Solutions Teammate Name Role Phone Unavailable Primary Care Provider Unavailabl e Encounter Details Date Type Department Care Team (Late st Contact Info) Description 01/26/2010 12:46 AM CDT - 01/26/2010 1:19 AM CDT Hospital Encounter [facility] Social History Tobacco Use Types Packs/Day Years Used Date Smoking Tobacco: Never Assessed Sex and Gender Information Value Date Recorded Sex Assigned at Not on file Legal Sex Male 2:37 PM EDUCATIONAL PROGRAM ASSISTANT Gender Identity Not on file Sexual Orientation Not on file documented as of this encounter Plan of Treatment Not on file documented as of this encounter Visit Diagnoses Not on filedocumented in this encounter
--- OUTSIDE RECORDS SUMMARY | 2024-11-07 16:36 | XMS_ITS | Encounter Summary ---
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
--- OUTSIDE RECORDS SUMMARY | 2024-11-07 16:36 | XMS_ITS | Encounter Summary ---
Author Organization [facility] Facility Care Team Providers Care Bark Fitter Name Role Phone Unavailable Primary Care Provider Unavailabl e Encounter Details Date Type Department Care Team (Latest Contact Info) Description 04/05/2013 9:06 AM CDT - 04/05/2013 4:00 PM CDT Hospital Encounter [facility] Christiano Heller MD [address] [place] [address] Acute pancreatitis; Hepatitis C virus infection without hepatic coma; Essential hypertension; Sprain of rotator cuff capsule; Tobacco use disorder; Vitamin D deficiency; Need for prophylactic vaccination with combined wobbuxhvms-rrfcoyw-kz rtussis (DTP) vaccine Social History Tobacco Use Types Packs/Day Years Used Date Smoking Tobacco: Never Assessed Sex and Gender Information Value Date Recorded Sex Assigned at Not on file 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 Current interpretive data was last revised [...] BLOOD ORDERABLES Final Result Performing Organization Address [facility] de Phone Number HISTORICAL RESULTS * Serum Hepatitis C genotype (04/05/2013 5:11 AM CDT) [facility] HCV genotype Undetected Undetected HISTO RICAL RESULTS Serum 04/05/2013 5:11 AM CDT Narrative HISTORICAL RESULTS - 04/09/2013 5:10 PM CDT LAB Frequency Standing Order? No Expiration Date: Assay failed to detect HCV RNA. This assay is not intended for HCV RNA detection purposes. Testing was done using the [employer] HCV Genotype II Assay. For research use only. Test Performed by: [place] [address] Blender/Braze Applicator: Denny Lara III, M.D. Huber Chase MD LAB BLOOD ORDERABLES Final Result Performing Organization Address [facility] Phone Number HISTORICAL RESULTS * Serum Hepatitis C viral RNA, PCR, quantitative (04/05/2013 5:11 AM CDT) [facility] HCV PCR, quant Undetected Undetected IUnits/ml HISTORICAL RESULTS Comment: Result in log IU/mL is Undetected. The quantification range of this assay is 43 IU/mL to 69,000,000 IU/mL (1.63 log IU/mL to 7.84 log IU/mL). Testing was performed by the [employer] AmpliPrep/[employer] TaqMan HCV Test ([facility] [employer] Test Performed by: [place] [address] Blender/Braze Applicator: Denny Lara III, M.D. Serum 04/05/2013 5:11 AM CDT Narrative HISTORICAL RESULTS - 04/06/2013 4:15 PM CDT LAB Frequency Standing Order? No Expiration Date: us Huber Chase MD LAB BLOOD ORDERABLES Final Result HISTORICAL RESULTS * Discharge Laboratory Cumulative Report (04/05/2013 12:00 AM CDT) 04/05/2013 Narrative HISTORICAL RESULTS - 04/10/2013 3:20 AM CDT ?[facility] ?Department of Laboratories ? [address] [facility] [address] ? [place], [place] [address] Patient Name: ??YARIEL HILL Aleena Med Rec Number: [id number] Fin Number: ?[id number] Date: ?1970 Sex/Age: ? Male 42 years Admit Date: ?04/05/2013 Discharge Date: 04/05/2013 Doctor: ?[facility] , [facility] Facility: ?[facility] Location: ?[facility] Chart Printed: 04/10/2013 03:20 [...] For research use only. Test Performed by: [place] [address] Blender/Braze Applicator: Denny Lara III, M.D. us Historical Provider LAB BLOOD ORDERABLES Carrie khanna Result HISTORICAL RESULTS documented in this encounter Visit Diagnoses Diagnosis Acute pancreatitis Hepatitis C virus infection without hepatic coma Essential hypertension Unspecified essential hypertension Sprain of rotator cuff capsule Rotator cuff (capsule) sprain and strain Tobacco use disorder Vitamin D deficiency Need for prophylactic vaccination with combined dgrvcvtotx-rlytyiv-zaobsjtht (DTP) vaccine documented in this encounter
--- OUTSIDE RECORDS SUMMARY | 2024-11-07 16:36 | XMS_ITS | Encounter Summary ---
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
--- OUTSIDE RECORDS SUMMARY | 2024-11-07 16:36 | XMS_ITS | Encounter Summary ---
Author Organization [facility] Facility Care Team Providers Care Pet Training Instructor Name Role Phone Unavailable Primary Care Provider Unavailabl e Encounter Details Date Type Department Care Team (Latest Contact Info) Description 11/13/2012 8:38 AM MANAGER SOCIAL 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 - 11/13/2012 4:00 PM MANAGER SOCIAL 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 Hospital Encounter [facility] Christiano Heller MD [address] [address] Abdominal pain; Alcohol abuse; Pain in joint, shoulder region; Tobacco use disorder; Need for Streptococcus pneumoniae and influenza vaccination Social History Tobacco Use Types Packs/Day Years Used Date Smoking Tobacco: Never Assessed Sex and Gender Information Value Date Recorded Sex Assigned at Not on file Legal Sex Male 2:37 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 Gender Identity Not on file Sexual Orientation Not on file documented as of this encounter Plan of Treatment Not on file documented as of this encounter Procedures Procedure Name Priority Date/Time Associated Diagnosis Comments XR SHOULDER 2+ VW Routine 11/13/2012 10: 48 AM MANAGER SOCIAL 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 XR SPINE CERVICAL 2 OR 3 VIEWS Routine 11/13/2012 10:48 AM MANAGER SOCIAL 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 BLOOD HEMOGLOBIN A1C, POC Routine 11/13/2012 9:45 AM MANAGER SOCIAL 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 SERUM LIPID PANEL Routine 11/13/2012 3:5 4 AM MANAGER SOCIAL 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 SERUM HUMAN IMMUNODEFICIENCY VIRUS (HIV) 1, 2 AB Routine 11/13/2012 3:54 AM MANAGER SOCIAL 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 SERUM 25-HYDROXYCHOLECALCIFERO L (VITAMIN D) Routine 11/13/2012 3:54 AM MANAGER SOCIAL 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 PLASMA COMPREHENSIVE METABOLIC PANEL Routine 11/13/2012 3:54 AM MANAGER SOCIAL 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 BLOOD CELL COUNT (CBC) Routine 3 3:54 AM MANAGER SOCIAL 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 DISCHARGE LABORATORY CUMULATIVE REPORT Routine 11/13/2012 12:00 AM MANAGER SOCIAL 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 documented in this encounter Results * XR Spine Cervical 3 View (11/13/2012 10:48 AM MANAGER SOCIAL 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) Anatomical Region Laterality Modality Spine N/A Radiographic Vashti ging 11/13/2012 10:4 8 AM MANAGER SOCIAL 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 Narrative 11/13/2012 11:35 AM MANAGER SOCIAL 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 ISMAEL CASTILLO M.D. FINAL REPORT ACC# ??Date Time ??Exam [id number] Nov 13, 2012 10:48:00 [id number] Spine Cerv 3views or less [id number] Nov 13, 2012 10:48:00 60582 Shoulder minimum 2 views R EXAMINATION: ?? [...] M.D. FINAL REPORT ACC# Date Time Exam [id number] Nov 13, 2012 10:48:00 14743 Spine Cerv 3views or less [id number] Nov 13, 2012 10:48:00 [id number] Shoulder minimum 2 views R EXAMINATION: 1. [...] XR Shoulder 2+ Vw (11/13/2012 10:48 AM MANAGER SOCIAL 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) Anatomical Region Laterality Modality Shoulder N/A Radiographic Vashti ging 11/13/2012 10:4 8 AM MANAGER SOCIAL 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 Narrative 11/13/2012 11:35 AM MANAGER SOCIAL 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 ISMAEL CASTILLO M.D. FINAL REPORT ACC# ??Date Time ??Exam [id number] Nov 13, 2012 10:48:00 [id number] Spine Cerv 3views or less [id number] Nov 13, 2012 10:48:00 41333 Shoulder minimum 2 views R EXAMINATION: ?? [...] M.D. FINAL REPORT ACC# Date Time Exam [id number] Nov 13, 2012 10:48:00 [id number] Spine Cerv 3views or less [id number] Nov 13, 2012 10:48:00 [id number] Shoulder minimum 2 views R EXAMINATION: 1. [...] Blood hemoglobin A1C, POC (11/13/2012 9:45 AM MANAGER SOCIAL 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) Hgb A1C 5.2 4.0 - 6.0 % HISTORICAL RESULTS Estimated average glucose 103 mg/dl HISTORICAL RESULTS Blood specimen (specimen) 11/13/2012 9:45 AM MANAGER SOCIAL 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 Momo Duncan MD LAB BLOOD ORDERABLES Final [facility] Performing Organization Address [facility] de Phone Number HISTORICAL RESULTS * (ABNORMAL) Plasma comprehensive metabolic panel (11/13/2012 3:54 AM MANAGER SOCIAL 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) Sodium 141 135 - 145 mmol/L HISTORICAL [...] Units/L HISTORICAL RESULTS Plasma 11/13/2012 3:54 AM MANAGER SOCIAL 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 Narrative HISTORICAL RESULTS - 11/13/2012 5:26 AM MANAGER SOCIAL 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 LAB Frequency Standing Order? No Expiration Date: Momo Duncan MD LAB BLOOD ORDERABLES Final [facility] Performing Organization Address [facility] de Phone Number HISTORICAL RESULTS * (ABNORMAL) Serum 25-hydroxycholecalciferol (vitamin D) (11/13/2012 3:54 AM MANAGER SOCIAL 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) Pathologist [facility] 25-OH Vit D 12(L) 30 - 100 ng/ml HISTORICAL RESULTS Serum 11/13/2012 3:54 AM MANAGER SOCIAL 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 Narrative HISTORICAL RESULTS - 11/13/2012 7:37 AM MANAGER SOCIAL 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 LAB Frequency Standing Order? No Expiration Date: us Momo Duncan MD LAB BLOOD ORDERABLES Final R esult HISTORICAL RESULTS * (ABNORMAL) Serum lipid panel (11/13/2012 3:54 AM MANAGER SOCIAL 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) Cholesterol 231(H) 0 - 200 mg/dl HISTORICAL [...] last revised 2012. Serum 11/13/2012 3:54 AM MANAGER SOCIAL 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 Narrative HISTORICAL RESULTS - 11/13/2012 7:00 AM MANAGER SOCIAL 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 LAB Frequency Standing Order? No Expiration Date: Momo Duncan MD LAB BLOOD ORDERABLES Final R esult Performing Organization Address [facility] de Phone Number HISTORICAL RESULTS * Serum Human Immunodeficiency virus (HIV) 1, 2 ab (11/13/2012 3:54 AM MANAGER SOCIAL 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) HIV ab Negative NEG HISTORICAL RESULTS Serum 11/13/2012 3:54 AM MANAGER SOCIAL 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 Narrative HISTORICAL RESULTS - 11/16/2012 5:02 AM MANAGER SOCIAL 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 LAB Frequency Standing Order? No Expiration Date: Momo Duncan MD LAB BLOOD ORDERABLES [facility] Performing Organization Address [facility] de Phone Number HISTORICAL RESULTS * (ABNORMAL) Blood cell count (CBC) (11/13/2012 3:54 AM MANAGER SOCIAL 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) WBC 8.3 3.8 - 9.8 K/cumm HISTORICAL [...] RESULTS Blood specimen (specimen) 11/13/2012 3:54 AM MANAGER SOCIAL 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 Narrative HISTORICAL RESULTS - 11/13/2012 4:49 AM MANAGER SOCIAL 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 LAB Frequency Standing Order? No Expiration Date: us Momo Duncan MD LAB BLOOD ORDERABLES Final R esult HISTORICAL RESULTS * Discharge Laboratory Cumulative Report (11/13/2012 12:00 AM MANAGER SOCIAL 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) 11/13/2012 Narrative HISTORICAL RESULTS - 11/16/2012 11:26 AM MANAGER SOCIAL 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 ?[facility] ?Department of Laboratories ? [address] [facility] [address] ? [place] [address] Patient Name: ??YARIEL HILL [place] Rec Number: [id number] Fin Number: ?[id number] Date: ?1970 Sex/Age: ? Male 42 years Admit Date: ?11/13/2012 Discharge Date: 11/13/2012 Doctor: ?[facility] , [address] Facility: ?[facility] Location: ?[facility] Chart Printed: 11/16/2012 11:26 ?? [...]
--- OUTSIDE RECORDS SUMMARY | 2024-11-07 16:36 | XMS_ITS | Encounter Summary ---
Author Organization [facility] Facility Care Team Providers Care Metal Spinner Name Role Phone Unavailable Primary Care Provider Unavailabl e Encounter Details Date Type Department Care Team (Late st Contact Info) Description 04/10/2009 4:22 AM CDT - 04/10/2009 6:12 AM CDT Hospital [facility] Backache; Other accidents; Place of occurrence, public building Social History Tobacco Use Types Packs/Day Years Used Date Smoking Tobacco: Never Assessed Sex and Gender Information Value Date Recorded Sex Assigned at Not on file 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
--- OUTSIDE RECORDS SUMMARY | 2024-11-07 16:36 | XMS_ITS | Encounter Summary ---
Author Organization [facility] Facility Care Team Providers Care Warp Tier Name Role Phone Unavailable Primary Care Provider Unavailabl e Encounter Details Date Type Department Care Team (Late st Contact Info) Description 05/07/2008 9:45 AM CDT - 05/07/2008 4:00 PM T Hospital Encounter [facility] Glen Moncada MD [address] [facility] [address] [place] [address] Carpal tunnel syndrome Social History Tobacco Use Types Packs/Day Years Used Date Smoking Tobacco: Never Assessed Sex and Gender Information Value Date Recorded Sex Assigned at Not on file 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
--- OUTSIDE RECORDS SUMMARY | 2024-11-07 16:36 | XMS_ITS | Encounter Summary ---
Author Organization [facility] Facility Care Team Providers Care Supervisor Matrix Name Role Phone Unavailable Primary Care Provider Unavailabl e Encounter Details Date Type Department Care Team (Latest Contact Info) Description 11/22/2012 - 11/22/2012 11:59 PM NUISANCE ANIMAL DAMAGE CONTROL AGENT Hospital Encounter [facility] Momo Shah MD [id number] [place] [address] Supraspinatus sprain and strain; Pain in joint, shoulder region Social History Tobacco Use Types Packs/Day Years Used Date Smoking Tobacco: Never Assessed Sex and Gender Information Value Date Recorded Sex Assigned at Not on file Legal Sex Male 2:37 PM NUISANCE ANIMAL DAMAGE CONTROL AGENT Gender Identity Not on file Sexual Orientation Not on file documented as of this encounter Plan of Treatment Not on file documented as of this encounter Procedures Procedure Name Priority Date/Time Associated Diagnosis Comments US EXTREMITY COMPLETE Routine 11/22/2012 3:12 PM NUISANCE ANIMAL DAMAGE CONTROL AGENT documented in this encounter Results * US Extremity Complete (11/22/2012 3:12 PM NUISANCE ANIMAL DAMAGE CONTROL AGENT) Anatomical Region Laterality Modality Extremity N/A Ultrasound 11/22/2012 3:12 PM NUISANCE ANIMAL DAMAGE CONTROL AGENT Narrative 11/22/2012 3:33 PM NUISANCE ANIMAL DAMAGE CONTROL AGENT JASWINDER DE OLIVEIRA M.D. FINAL REPORT ACC# ??Date Time ??Exam [id number] Nov 22, 2012 15:12:00 55211 Extrm Sono Shoulder R EXAMINATION: ? SHOULDER [...] M.D. FINAL REPORT ACC# Date Time Exam [id number] Nov 22, 2012 15:12:00 [id number] Extr Sono Shoulder R EXAMINATION: SHOULDER SONOGRAM [...]
--- OUTSIDE RECORDS SUMMARY | 2024-11-07 16:36 | XMS_ITS | Encounter Summary ---
Author Organization [facility] Facility Care Team Providers Care Sports Media Name Role Phone Unavailable Primary Care Provider Unavailabl e Encounter Details Date Type Department Care Team (Late st Contact Info) Description 09/06/2012 9:08 AM NURSING ADMIN - 09/06/2012 4:00 PM NURSING ADMIN Hospital Encounter [facility] Christiano Heller MD [address] [address] Pain in joint, shoulder region; Tobacco use disorder Social History Tobacco Use Types Packs/Day Years Used Date Smoking Tobacco: Never Assessed Sex and Gender Information Value Date Recorded Sex Assigned at Not on file Legal Sex Male 2:37 PM NURSING ADMIN Gender Identity Not on file Sexual Orientation Not on file documented as of this encounter Plan of Treatment Not on file documented as of this encounter Visit Diagnoses Diagnosis Pain in joint, shoulder region Tobacco use disorder documented in this encounter
== END 2024-10-31 18:38 | disposition home or self-care (01) ==
LOC: ANHED 18:36
PROVIDERS: Emergency Provider Physician Assistant; PCP Hospitalist
DX: J01.90 Acute sinusitis, unspecified (principal); J06.9 Acute upper respiratory infection, unspecified; I10 Essential (primary) hypertension; E78.5 Hyperlipidemia, unspecified; K21.9 Gastro-esophageal reflux disease without esophagitis; F17.210 Nicotine dependence, cigarettes, uncomplicated; Z79.899 Other long term (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
CPT/HCPCS: 71046; 87637; 99283

== ENCOUNTER 2025-04-10 13:40 | Emergency (ER) | payer OTHER, SELFPAY ==
[2025-04-10 13:45] VITALS: BP 128/80; PULSE 115; RESP 16; TEMP 36.8; O2SAT 100
[2025-04-10 15:58] VITALS: BP 153/85; PULSE 66; PULSE 68; RESP 17; O2SAT 100
--- OUTSIDE RECORDS SUMMARY | 2025-04-10 15:58 | XMS_ITS | Patient Health Record ---
Author Organization [facility] Address [address] [facility] [address] [place], [place] [id number] Care Team Providers Care Grain Ii Farmworker Name Role Phone Glen Schafer Unavailable [phone] Migration, Provider Unavailable Unavailable Reason For Referral [...] Status W/U Status Risk Notes Problem Tinnitus (45183198) TINNITUS (388.30) Active confirmed Problem Tobacco use (180868637) TOBACCO USE DISORDER (305.1) Active confirmed Encounters Encounter Location Date Provider Diagnosis [facility] [address] [facility] [address] [place], [place] [id number] 10/13/2024 Provider Migration Plan Of Treatment No Information Insurance Providers Payer Name Payer Address Payer Phone Subscriber Number Group Number Insured Name Patient Relationship to Insured Coverage Start Date Coverage End Date ESIS [phone] [id number] Yariel Hill Self - patient is the insured Medical (General) History Medical History History ICD Code Pertinent Medical History: Ear problems, High blood pressure, Surgical History Surgery Date(Month/Year) carpel tunnel 2008
--- OUTSIDE RECORDS SUMMARY | 2025-04-10 15:58 | XMS_ITS ---
Author Organization [facility] Address [address] [facility] [address] [place], [place] [id number] Care Team Providers Care Electrical Logging Operator Name Role Phone Glen Schafer Unavailable [phone] Migration, Provider Unavailable Unavailable REASON FOR VISIT Multum To Medispan Conversion Encounter Medications Medication SIG (Take, Route, Fr equency, Duration) Notes Start Date End Date Status Lisinopril 20 MG 1 tab(s) orally once a day Active Omeprazole 20 MG 1 cap(s) orally once a day Active Encounters Encounter Location Date Provider Diagnosis [facility] [address] [facility] [address] [place], [place] [id number] 10/13/2024 Provider Migration Plan Of Treatment No Information Progress Notes * Yariel HILLDOB:[birth year] (54 yo M)Acc No.[id number]:10/13/2024 Patient: Yariel BANG Provider: Sarah corado Migration :1970 A ge:54 Y S ex:Male Date:10/13/2024 Address:[address] [place], [place] [id number] Subjective: * Chief Complaints: * 1 . Multum To Medispan Conversion Encounter. * Medical History: * Medications: T aking Lisinopril 20 MG Tablet 1 tab(s) orally once a day , Taking Omeprazole 20 MG Capsule Delayed Release 1 cap(s) orally once a day Objective: * Vitals: * Physical Examination: Assessment: Plan: * Treatment: * * Electronic signature of Prov ider Migration on 04/10/2025 at 03:58 PM CDT Sign off status: Pending * Provider: Sarah corado Migration Date: 1 12/14/2023 Generated for Nazario arrington/Harvey/Dario on: 0 04/10/2025 03:58 PM CDT
--- NOTE | 2025-04-10 16:28 | ECG_ITS ---
Test Date: 2025-04-10 17:03:38 Measurements Intervals [place] Rate: 57 P: 57 [place]: 117 QRS: -4 QRSD: 85 T: 41 QT: 414 QTc: 404 Interpretive Statements SINUS BRADYCARDIA WITH SHORT [place] INTERVAL BASELINE ARTIFACT- I, III, AVR, AVL, AVF BORDERLINE ECG No previous ECG available for comparison Electronically Signed On 04-10-2025 18:43:56 CDT by Moncho Thompson D.O.
[2025-04-10] MEDS: SODIUM CHLORIDE 0.9% IV 1,000 ML 999 ML IV CONT (16:55)
[2025-04-10] MEDS: PANTOPRAZOLE SODIUM IV 40 MG VIAL IV PUSH (16:56)
[2025-04-10] MEDS: ONDANSETRON INJ 4 MG/2 ML VIAL IV PUSH (16:56)
[2025-04-10 17:02] LABS: Basophils Percent Auto 0.3 % (0.2-1.2); Eosinophils Absolute Auto 0.1 K/mm3 (0-0.3); Eosinophils Percent Auto 1.7 % (0-4.4); Hematocrit 40.7 % (42.0-52.0); Hemoglobin 13.6 g/dL (14.0-18.0); Immature Granulocyte Absolute 0.02 K/mm3 (0.00-0.031); Immature Granulocyte Percent A 0.3 % (0-0.5); Lymphocytes Absolute Auto 1.74 K/mm3 (0.9-3.2); Lymphocytes Percent Auto 26.6 % (18.3-44.2); Mean Corpuscular HGB Conc 33.4 g/dl (32-36); Mean Corpuscular Hemoglobin 32.2 pg (26-34); Mean Corpuscular Volume 96.2 fl (80-100); Mean Platelet Volume 10.1 fl (7.4-10.4); Monocytes Absolute Auto 0.4 K/mm3 (0.1-0.6); Monocytes Percent Auto 5.8 % (2.6-8.5); Neutrophils Absolute Auto 4.3 K/mm3 (1.3-6.7); Neutrophils Percent Auto 65.3 % (45.5-73.1); Platelet Count Result 165 k/mm3 (150-375); Red Blood Count 4.23 M/mm3 (4.6-6.20); Red Cell Distribution Width 13.9 % (11.5-14.5); White Blood Count 6.5 K/mm3 (4.5-10.0)
--- NOTE | 2025-04-10 17:05 | ED_ITS ---
HPI - Abdominal Pain General Chief Complaint: Abdominal Pain Stated Complaint: abd pain Time Seen by Provider: 04/10/25 16:12 History of Present Illness HPI narrative: Patient is a 54-year-old male who presents ER with epigastric pain. Ongoing since the weekend. He gone to a and him and his family member drink a lot of alcohol and smoked several cigars. He has history of pancreatitis in the past this feels different. He then developed some diarrhea today that made him feel concern. He has tried Pepcid without improvement. No fevers or chills. Related Data Home Medications ?Medication ?Instructions ?Recorded ?Confirmed ?Last Taken ?Type amlodipine 10 mg tablet 10 mg PO DAILY 04/04/21 05/15/24 04/28/24 20:00 History rosuvastatin 5 mg tablet 5 mg PO DAILY 05/29/23 05/15/24 04/28/24 20:00 History omeprazole 20 mg capsule,delayed 20 mg PO DAILY PRN reflux 04/29/24 05/15/24 04/29/24 12:00 History release Allergies Allergy/AdvReac Type Severity Reaction Status Date / Time No Known Allergies Allergy Verified 04/10/25 16:44 [facility] Past Medical History Medical History Hyperlipidemia Gastroesophageal reflux disease Hypertension Alcohol abuse Sober since December 2023. Pancreatitis Surgical History Surgical History History of laparoscopic appendectomy History of esophagogastroduodenoscopy (EGD) Family History Family History Mother Family history non-contributory Social History Social History Social History: Surrogate medical decision maker: Tomas Hill, sibling. Code status: Full code. Years smoked: 15 Smoking status: Current every day smoker Tobacco type: cigarettes Second hand tobacco smoke exposure: Yes Additional smoking assessment comments: Smokes approximately 7 cigarettes a day. Alcohol intake: former Substance use: current Substance use type: marijuana Do You Feel Safe in your Home?: Yes Lack of Transportation: No Lack of Food: Never True Current Housing: I Have Housing Concerned About Future Housing: No Difficulty Paying Gas/Electric Bills: No Difficulty Paying for Meds: No Currently Unemployed: No Education: High School Diploma/GED Difficulty w/ Childcare or Family Care: No Living arrangements: with family Spiritual care concerns: No Exam 2 Narrative: GENERAL: Well-appearing, well-nourished, and in no acute distress. HEAD: Normocephalic, atraumatic. ENT: Mucous membranes moist. CHEST: Clear to auscultation. No respiratory distress. HEART: Regular rate and rhythm. Normal peripheral pulses. ABDOMEN: Soft, nontender, nondistended. EXTREMITIES: Normal range of motion. No edema. SKIN: Warm, dry, no rash. NEURO: Alert and oriented x3. PSYCH: Normal mood and affect. Course Vital Signs Vital signs: Vital Signs Temperature 98.2 F 04/10/25 13:45 Pulse Rate 115 H 04/10/25 13:45 Respiratory Rate 16 04/10/25 13:45 Blood Pressure 128/80 04/10/25 13:45 Pulse Oximetry 100 04/10/25 13:45 Oxygen Delivery Room Air 04/10/25 13:45 Temperature 98.2 F 04/10/25 13:45 Pulse Rate 68 04/10/25 15:58 Respiratory Rate 17 04/10/25 15:58 Blood Pressure 153/85 H 04/10/25 15:58 Pulse Oximetry 100 04/10/25 15:58 Oxygen Delivery Room Air 04/10/25 15:58 MDM - Abdominal Pain Lab Data 04/10/25 16:42 04/10/25 17:33 Labs: Lab Results 04/10/25 04/10/25 Range/Units 16:42 17:33 WBC 6.5 (4.5-10.0) K/mm3 RBC 4.23 L (4.6-6.20) M/mm3 Hgb 13.6 L (14.0-18.0) g/dL Hct 40.7 L (42.0-52.0) % MCV 96.2 (80-100) fl MCH 32.2 (26-34) pg MCHC 33.4 (32-36) g/dl RDW 13.9 (11.5-14.5) % Plt Count 165 (150-375) k/mm3 MPV 10.1 (7.4-10.4) fl Immature Gran % (Auto) 0.3 (0-0.5) % Neut % (Auto) 65.3 (45.5-73.1) % Lymph % (Auto) 26.6 (18.3-44.2) % [place] % (Auto) 5.8 (2.6-8.5) % Eos % (Auto) 1.7 (0-4.4) % Baso % (Auto) 0.3 (0.2-1.2) % Lymph # (Auto) 1.74 (0.9-3.2) K/mm3 [place] # (Auto) 0.4 (0.1-0.6) K/mm3 Eos # (Auto) 0.1 (0-0.3) K/mm3 Baso # (Auto) 0.0 (0.0-0.1) K/mm3 Abs Immat Gran (auto) 0.02 (0.00-0.031) K/mm3 Absolute Neuts (auto) 4.3 (1.3-6.7) K/mm3 Absolute Nucleated RBC 0.000 (0.0-0.012) K/mm3 Nucleated RBC % 0.0 (0.0-0.2) % Sodium 138 (137-145) mmol/L Potassium 3.6 (3.4-5.0) mmol/L Chloride 105 (98-107) mmol/L Carbon Dioxide 26 (22-30) mmol/L Anion Gap 7 (4-12) mmol/L BUN 13 (9-20) mg/dL Creatinine 0.92 (0.7-1.3) mg/dL Estim Creat Clear Calc 57 ml/min Estimated GFR > 60 (59 - ) Glucose 85 (65-110) mg/dL Calcium 9.2 (8.4-10.2) mg/dL Total Bilirubin 0.9 (0.2-1.3) mg/dL AST 48 (17-59) U/L ALT 24 (6-50) U/L Alkaline Phosphatase 73 (38-126) U/L Total Protein 7.6 (6.3-8.2) g/dL Albumin 4.5 (3.5-5.1) g/dL Lipase 75 (23-300) U/L ECG Data EKG #1: ECG completion date: 04/10/25 ECG completion time: 17:03 bradycardia (57), sinus rhythm, non-specific ST changes, no ST changes, normal QRS and normal QT Discharge Plan Discharge Clinical Impression: Gastritis Patient Disposition: Home Condition: Stable Instructions: Gastritis (ED) Additional Instructions: Return to the emergency department if you develop severe abdominal pain, severe nausea and vomiting to the point where you are unable to keep down fluids, if you develop chest pain or difficulty breathing, blood in your stool, dizziness or fainting, or if you develop any other new or concerning symptoms as these could be signs of more serious medical illness. Try to stay well hydrated. Patient Language: Yi Prescriptions: New pantoprazole 40 mg tablet,delayed release (DR/EC) 40 mg PO HS 28 Days Qty: 28 0RF ondansetron 4 mg tablet,disintegrating 4 mg PO Q6H PRN (Reason: nausea and vomiting) Qty: 10 0RF No Action rosuvastatin 5 mg tablet 5 mg PO DAILY amlodipine 10 mg tablet 10 mg PO DAILY omeprazole 20 mg capsule,delayed release(DR/EC) 20 mg PO DAILY PRN (Reason: reflux) chlordiazepoxide HCl 25 mg capsule 25 mg PO QID PRN (Reason: alcohol withdrawal) Qty: 15 0RF Rx Instructions: Day 1: 50mg q6h Day 2: 25mg q6h Day 3: 25mg q12h Day 4: 25mg at night (Rx fifteen 25mg tabs) amoxicillin-pot clavulanate 875-125 mg tablet 1 tablet PO Q12H 7 Days Qty: 14 0RF chlordiazepoxide HCl 25 mg capsule 25 mg PO TID PRN (Reason: alcohol withdrawal) Qty: 10 0RF omeprazole 20 mg capsule,delayed release(DR/EC) 20 mg PO DAILY Qty: 30 0RF omeprazole 20 mg capsule,delayed release(DR/EC) 20 mg PO DAILY Qty: 20 0RF chlordiazepoxide HCl 25 mg capsule 25 mg PO Q2H PRN (Reason: alcohol withdrawal) Qty: 20 0RF Rx Instructions: Day 1: Oral: 50 mg every 6 hours. Day 2: Oral: 50 mg every 12 hours. Day 3: Oral: 50 mg every 24 hours. Day 4: Oral: 25 mg every 24 hours, then discontinue chlordiazepoxide May take 25 mg PRN q2h for breakthrough symptoms. Follow-up/Referrals: Ranjith,Clare Richard MD [Primary Care Provider] - 1 Week
--- OUTSIDE RECORDS SUMMARY | 2025-04-10 18:13 | XMS_ITS | Clinical Summary ---
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 Gender Identity Not on file Sexual Orientation Not on file Plan of Treatment Health Maintenance Due Date Last Done Comments Hepatitis C Virus (HCV) Screening 1970 TdaP Immunization 1970 Hepatitis B Immunization (1 of 3 - 19+ 3-dose series) 1989 Cologuard 2015 Colonoscopy 2015 Colorectal Cancer Screening 2015 Immunochemical Fecal Occult Blood 2015 Pneumococcal Immunization (50+ years) (1 of 1 - PCV) 2020 Zoster Immunization (1 of 2) 2020 SARS-COV-2 Immunization ( - 2023- season) 2024 01/30/2022, 09/13/2021, 01/17/2021, Additional history exists Influenza Immunization (Season Ended) 2025 Respiratory Syncytial Virus (RSV) Immunization (Adult) (1 - 1-dose 75+ series) 2045 Human Papillomavirus (HPV) Immunization Aged Out No longer eligible based on patient's age to complete this topic Meningococcal Immunization (ACWY) Aged Out No longer eligible based on patient's age to complete this topic Rotavirus Immunization Aged Out No lo nger eligible based on patient's age to complete this topic
--- OUTSIDE RECORDS SUMMARY | 2025-04-10 18:13 | XMS_ITS | Encounter Summary ---
Author Organization [employer] Address [address] [place] [address] Care Team Providers Care Information Security Manager Name Role Phone Clare Kasper MD Primary Care Pro vider Encounter Details Date Type Department Care Team (Late st Contact Info) Description 11/17/2004 Outpatient Historical [facility] Clifford Chandra MD [facility] [place], [place] [id number] Er, Authorized P NO ADDRESS ON FILE ABDOMINAL PAIN OTHER SPEC SITE (Primary Dx) Social History Tobacco Use Types Packs/Day Years Used Date Smoking Tobacco: Never Assessed Sex and Gender Information Value Date Recorded Sex Assigned at Not on file 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 Sex Male 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 Gender Identity Not on file Sexual Orientation Not on file documented as of this encounter Plan of Treatment Not on file documented as of this encounter Procedures Procedure Name Priority Date/Time Associated Diagnosis Comments CBC WITH DIFFERENTIAL Routine 11/17/2004 11:50 PM SKY DIVER CBC WITH DIFFERENTIAL Routine 11/17/2004 11:50 PM SKY DIVER LIPASE Routine 11/17/2004 11:50 PM SKY DIVER AMYLASE Routine 11/17/2004 11:50 PM SKY DIVER documented in this encounter Results * CBC WITH DIFFERENTIAL (11/17/2004 11:50 PM SKY DIVER) NEUTROPHILS 51 45 - 70 % INTERFAC [...] K/uL INTERFACE SYSTEM 11/17/2004 11:5 0 PM SKY DIVER Clifford Chandra MD HEMATOLOGY ORDERABLES Final Re sult Performing Organization Address [facility] Co de Phone Number INTERFACE SYSTEM Refer to clinic/hospital department * CBC WITH DIFFERENTIAL (11/17/2004 11:50 PM SKY DIVER) WBC 9.8 4.0 - 9.8 K/uL INTERFACE [...] fL INTERFACE SYSTEM 11/17/2004 11:5 0 PM SKY DIVER Clifford Chandra MD HEMATOLOGY ORDERABLES Final Re sult Performing Organization Address [facility] Co de Phone Number INTERFACE SYSTEM Refer to clinic/hospital department * LIPASE (11/17/2004 11:50 PM SKY DIVER) LIPASE 31 13 - 60 U/L INTERFAC E SYSTEM 11/17/2004 11:5 0 PM SKY DIVER Clifford Chandra MD CHEMISTRY ORDERABLES Final Res ult Performing Organization Address City/[facility] de Phone Number INTERFACE SYSTEM Refer to clinic/hospital department * AMYLASE (11/17/2004 11:50 PM SKY DIVER) AMYLASE 85 28 - 100 U/L INTERFACE SYSTEM 11/17/2004 11:5 0 PM SKY DIVER Clifford Chandra MD CHEMISTRY ORDERABLES Final Res ult Performing Organization Address [facility] de Phone Number INTERFACE SYSTEM Refer to clinic/hospital department documented in this encounter Visit Diagnoses Diagnosis Abdominal pain, other specified site- Primary documented in this encounter Care Teams Information Security Manager Relationship Specialty Start Date End Date Clare Kasper MD [address] [place] [id number] PCP - General Family Practice 07/11/24 documented as of this encounter
--- OUTSIDE RECORDS SUMMARY | 2025-04-10 18:13 | XMS_ITS | Clinical Summary ---
Author Organization [facility] [employer] Address [address] [address] Care Team Providers Care Tubing Mill Setter Name Role Phone Clare Kasper MD Primary Care Pro vider Active Problems No known active problems Encounters Date Type Department Care Team Description 02/11/2025 Results Follow-Up [facility] [employer] [place] [address] [place] [address] Lisa Slater MD TSH, LIPID PANEL, COMPREHENSIVE METABOLIC PANEL, CBC WITH DIFFERENTIAL 02/08/2025 1:20 PM CDT Office Visit [facility] [employer] [place] [address] [place] [address] Screening for condition (Primary Dx) 01/08/2025 External Device Data STL ABSTRACTION Provider, Abstract 01/08/2025 External Device Data [facility] ABSTRACTION Provider, Abstract from Last 3 Months Social History Tobacco Use Types Packs/Day Years Used Date Smoking Tobacco: Never Assessed Sex and Gender Information Value Date Recorded Sex Assigned at Not on file 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 Gender Identity Not on file Sexual Orientation Not on file Last Filed Vital Signs Vital Sign Reading Time Taken Comments Blood Pressure 132/70 02/08/2025 1:20 PM CDT Pulse - - Temperature - - Respiratory Rate - - Oxygen Saturation - - Inhaled Oxygen Concentration - - Weight 52.2 kg (115 lb) 02/08/2025 1:20 PM CDT Height 170.2 cm (5' 7) 02/08/2025 1:20 PM CDT Body Mass Index 18.01 02/08/2025 1:20 PM CDT Plan of Treatment Health Maintenance Due Date Last Done Comments HEPATITIS B VACCINES (2 of 3 - Hep B Twinrix 3-dose series) 12/18/2012 11/20/2012 FIT-DNA Q 3 years 2015 FIT/FOBT Q 1 year 2015 Flex Sig/CT Colonography Q 5 years 2015 COVID-19 Vaccine ( - 2023-2 5 season) 2024 08/07/2022, 01/30/2022, 09/13/2021, Additional history exists COLORECTAL SCREENING 06/24/2031 06/24/2021, 06/24/2021, 05/14/2020 Colorectal Cancer Screening 06/24/2031 DTAP/TDAP/TD VACCINES (5 - T d or Tdap) 01/05/2034 01/06/2024, 08/31/2013, 04/05/2013, Additional history exists ZOSTER VACCINE Completed 06/10/2023, 04/04/2023 INFLUENZA VACCINE Completed 07/27/2024, , 08/07/2022, Additional history exists Procedures Procedure Name Priority Date/Time Associated Diagnosis Comments CBC WITH DIFFERENTIAL Routine 02/08/2025 1:07 PM CDT Screening for condition COMPREHENSIVE METABOLIC PANEL Routine 02/08/2025 1:07 PM CDT Screening for condition LIPID PANEL Routine 02/08/2025 1:07 PM CDT Screening for condition TSH Routine 02/08/2025 1:07 PM CDT Screening for condition from Last 3 Months Results * (ABNORMAL) CBC WITH DIFFERENTIAL (02/08/2025 1:07 PM CDT) WBC 6.9 3.8 - 10.8 Thousand/ uL [facility] RBC 4.32 4.20 - 5.80 Million/u L [facility] HEMOGLOBIN 14.3 13.2 - 17.1 g/dL [facility] HEMATOCRIT 43.1 38.5 - 50.0 % [facility] MCV 99.8 80.0 - 100.0 fL [facility] MCH 33.1(H) 27.0 - 33.0 pg [facility] MCHC 33.2 32.0 - 36.0 g/dL [facility] Comment: For adults, a slight decrease in the calculated MCHC value (in the range of 30 to 32 g/dL) is most likely not clinically significant; however, it should be interpreted with caution in correlation with other red cell parameters and the patient's clinical condition. RDW 11.9 11.0 - 15.0 % [facility] PLATELETS 194 140 - 400 Thousand/ uL [facility] MPV 10.0 7.5 - 12.5 fL [facility] NEUTROPHIL ABSOLUTE 3,919 1,500 - 7,800 cells/uL [facility] LYMPHOCYTE ABSOLUTE 2,298 850 - 3,900 cells/uL [facility] MONOCYTE ABSOLUTE 504 200 - 950 cells/uL [facility] EOSINOPHIL ABSOLUTE 152 15 - 500 cells/uL [facility] BASOPHILS ABSOLUTE 28 0 - 200 cells/uL [facility] NEUTROPHIL 56.8 % [facility] LYMPHOCYTES 33.3 % [facility] MONOCYTE 7.3 % [facility] EOSINOPHILS 2.2 % [facility] BASOPHILS 0.4 % [facility] Comment: Test Performed at: [place] [address] [address] [place] [id number] Yad[facility] Man Blood 02/08/2025 1:07 PM CDT 02/09/2025 2:02 AM CDT us Lisa Slater MD HEMATOLOGY ORDERABLES Final Re sult [facility] [phone] [place] [address] [address] [place] [id number] * TSH (02/08/2025 1:07 PM CDT) TSH 0.79 0.40 - 4.50 mIU/L [facility] Comment: Test Performed at: [place] [address] [address] [place] [id number] [facility] Blood 02/08/2025 1:07 PM CDT 02/09/2025 2:02 AM CDT us Lisa Slater MD CHEMISTRY ORDERABLES Final Res ult [facility] [phone] [facility] [place] [address] [address] [place] [id number] * LIPID PANEL (02/08/2025 1:07 PM CDT) CHOLESTEROL 158 <200 mg/dL [facility] HDL 88 > OR = 40 mg/dL [facility] TRIGLYCERIDE 41 <150 mg/dL [facility] LDL CALCULATED 58 mg/dL (calc) [facility] Comment: Reference range: <100 Desirable range <100 mg/dL for primary prevention; <70 mg/dL for patients with CHD or diabetic patients with > or = 2 CHD risk factors. LDL-C is now calculated using the Roe-Abrams calculation, which is a validated novel method providing better accuracy than the Friedewald equation in the estimation of LDL-C. Roe SS et al. DOLLY. 2013;310(19): 2979-2603 (http://education.Measy.[employer]/faq/CBY742) CHOL/HDL RATIO 1.8 <5.0 (calc) [facility] m[facility] NON-HDL CHOLESTEROL 70 <130 mg/dL (calc) [facility] m[facility]racken [facility] Comment: For patients with diabetes plus 1 major ASCVD risk factor, treating to a non-HDL-C goal of <100 mg/dL (LDL-C of <70 mg/dL) is considered a therapeutic option. Test Performed at: [place] [address] [place] [id number] [facility] Blood 02/08/2025 1:07 PM CDT 02/09/2025 2:02 AM CDT us Lisa Slater MD CHEMISTRY ORDERABLES Final Res ult [facility] [phone] [facility] [place] [address] [address] [id number] * COMPREHENSIVE METABOLIC PANEL (02/08/2025 1:07 PM CDT) GLUCOSE 77 65 - 99 mg/dL [facility] Comment: Fasting reference interval BUN 9 7 - 25 mg/dL [facility] m[facility]en [facility] CREATININE 0.86 0.70 - 1.30 mg/dL [facility] GFR 103 > OR = 60 mL/min/1. 73m2 [facility] BUN/CREAT RATIO SEE NOTE: 6 - 22 (calc) [facility] Comment: Not Reported: BUN and Creatinine are within reference range. SODIUM 139 135 - 146 mmol/L [facility] POTASSIUM 4.0 3.5 - 5.3 mmol/L [facility] CHLORIDE 103 98 - 110 mmol/[facility] CO2 28 20 - 32 mmol/L [facility] CALCIUM 9.5 8.6 - 10.3 mg/dL [facility] TOTAL PROTEIN 7.5 6.1 - 8.1 g/dL [facility] ALBUMIN 4.9 3.6 - 5.1 g/dL [facility] GLOBULIN 2.6 1.9 - 3.7 g/dL (calc) [facility] ALBUMIN/GLOBULIN RATIO 1.9 1.0 - 2.5 (calc) [facility] BILIRUBIN TOTAL 0.7 0.2 - 1.2 mg/dL [facility] ALKALINE PHOSPHATASE 72 35 - 144 U/L [facility] mccracken [facility] AST 25 10 - 35 U/L [facility] mccracken [facility] ALT 18 9 - 46 U/L [facility] mccracken [facility] Comment: Test Performed at: [place] [address] [address] [place] [id number] Yadira Coleman Blood 02/08/2025 1:07 PM CDT 02/09/2025 2:02 AM CDT Lisa Slater MD CHEMISTRY ORDERABLES Final Res ult [facility] [phone] [facility] [address] [place] [address] from Last 3 Months Insurance ALLEGIANCE OPEN ACCESS Care Teams Tubing Mill Setter Relationship Specialty Start Date End Date Clare Kasper MD [facility] [address] [phone] PCP - General Family Practice 07/11/24
[2025-04-10 18:19] LABS: Alanine Aminotransferase 24 U/L (6-50); Albumin Level 4.5 g/dL (3.5-5.1); Alkaline Phosphatase 73 U/L (38-126); Anion Gap 7 mmol/L (4-12); Aspartate Amino Transferase 48 U/L (17-59); Bilirubin,Total 0.9 mg/dL (0.2-1.3); Blood Urea Nitrogen 13 mg/dL (9-20); Calcium 9.2 mg/dL (8.4-10.2); Carbon Dioxide 26 mmol/L (22-30); Chloride 105 mmol/L (98-107); Estimated CRCL calculation 57 ml/min; Estimated Glomerular Filt Rate > 60; Glucose 85 mg/dL (65-110); Lipase 75 U/L (23-300); Potassium 3.6 mmol/L (3.4-5.0); Sodium 138 mmol/L (137-145); Total Protein 7.6 g/dL (6.3-8.2)
[2025-04-10 19:15] VITALS: BP 135/87; PULSE 61; RESP 17; O2SAT 99
== END 2025-04-10 19:16 | disposition home or self-care (01) ==
PROVIDERS: Emergency Provider Emergency Medicine; PCP Hospitalist
DX: K29.70 Gastritis, unspecified, without bleeding (principal); E78.5 Hyperlipidemia, unspecified; I10 Essential (primary) hypertension; F17.210 Nicotine dependence, cigarettes, uncomplicated
CPT/HCPCS: 36415; 80053; 83690; 85025; 93005; 96361; 96374; 96375; 99284; J2405; J2470; J7030

== ENCOUNTER 2025-10-28 16:17 | Emergency (ER) | payer OTHER, SELFPAY ==
--- OUTSIDE RECORDS SUMMARY | 2024-10-13 15:30 | XMS_ITS ---
Author Organization [facility] Address [facility] Jonathan Preston [address] [id number] Care Team Providers Care Employee Health Rn Name Role Phone Glen Schafer Unavailable [phone] Migration, Provider Unavailable [facility]available [facility] Encounter Medications Medication SIG (Take, Route, Frequency, Duration) Notes Start Date End Date Status Lisinopril 20 MG Tablet 1 tab(s) orally once a day Active Omeprazole 20 MG Capsule Delayed Release 1 cap(s) orally once a day Active Encounters Encounter Location Date Provider Diagnosis [facility] [place] [address] Jonathan Mohan [address] [id number] 10/13/2024 Provider Migration Plan Of Treatment No Information Progress Notes * Yariel HILLDOB:[birth year] (55 yo M)Acc No.[id number]:10/13/2024 Patient: Mario galvanYariel montague Provider: Sarah corado Migration :1970 A ge:54 Y S ex:Male Date:10/13/2024 Address:[address] [place], [place] [id number] Subjective: * Chief Complaints: * [facility] * Medications: T akingLisinopril 20 MG Tablet 1 tab(s) orally once a day Omeprazole 20 MG Capsule Delayed Release 1 cap(s) orally once a day Taking Lisinopril 20 MG Tablet 1 tab(s) orally once a day Taking Omeprazole 20 MG Capsule Delayed Release 1 cap(s) orally once a day * Electronic signature of Prov ider Migration on 10/28/2025 at 04:19 PM 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
--- OUTSIDE RECORDS SUMMARY | 2025-10-28 16:19 | XMS_ITS | Clinical Summary ---
Author Organization [facility] [employer] Address [address] [place] [phone] Care Team Providers Care Vegetable Tier Name Role Phone Clare Kasper MD Primary Care Pro vider Active Problems No known active problems Encounters Date Type Department Care Team Description 09/03/2025 External Device Data ST[facility] ABSTRACTION Provider, Abstract 08/28/2025 External Device Data STL ABSTRACTION Provider, Abstract 08/28/2025 External Device Data STL ABSTRACTION Provider, Abstract from Last 3 Months Social History Tobacco Use Types Packs/Day Years Used Date Smoking Tobacco: Never Assessed Sex and Gender Information Value Date Recorded Sex Assigned at Not on file 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 Gender Identity Not on file Sexual [...] Flex Sig/CT Colonography Q 5 years 2015 INFLUENZA VACCINE (#1) 2025 , 07/18/2023, 08/07/2022, Additional history exists COVID-19 Vaccine (2024-2 6 season) 2025 08/07/2022, 01/30/2022, 09/13/2021, Additional history exists COLORECTAL SCREENING 06/24/2031 06/24/2021, 06/24/2021, 05/14/2020 Colorectal Cancer Screening 06/24/2031 DTAP/TDAP/TD VACCINES (5 - T d or Tdap) 01/05/2034 01/06/2024, 08/31/2013, 04/05/2013, Additional history exists ZOSTER VACCINE Completed 06/10/2023, 04/04/2023 Insurance GIAN OPEN ACCESS Care Teams Vegetable Tier Relationship Specialty Start Date End Date Clare Kasper MD [address] [place] [id number] PCP - General Family Practice 07/11/24
--- OUTSIDE RECORDS SUMMARY | 2025-10-28 16:19 | XMS_ITS | Patient Health Record ---
Author Organization [facility] Address [address] [place] [address] Care Team Providers Care Dairy Farm Worker Name Role Phone Lionel Hanna Unavailable [phone] Reason For Referral No Information Plan Of Treatment No Information Insurance Providers Payer Name Payer Address Payer Phone Subscriber Number Group Number Insured Name Patient Relationship to Insured Coverage Start Date Coverage End Date HarryFormerly named [facility] [id number] [place] [phone] [id number] DOI [id number] Yariel Hill Self - patient is the insured
--- OUTSIDE RECORDS SUMMARY | 2025-10-28 16:19 | XMS_ITS | Encounter Summary ---
Author Organization [facility] Healthcare Address [address] [place] [address] Care Team Providers Care Data Conversion Operator Name Role Phone Clare Kasper MD Primary Care Pro vider Encounter Details Date Type Department Care Team ([facility] st Contact Info) Description 10/28/2025 Telephone [facility] Primary Care at [address] [phone] Clare Kasper MD [facility] [address] [address] Social History Tobacco Use Types Packs/Day Years Used Date Smoking Tobacco: Every Day Cigarettes 0.5 22.2 Started: 05/11/2000; Last attempted to quit: 07/26/2022 Passive Smoke Exposure: Yes Smokeless Tobacco: Never Comments:8 cigs a day Alcohol Use Standard Drinks/Week Comments Yes 20 (1 standard drink = 0.6 oz pu re alcohol) occasionally PHQ-2 Answer Date Recorded PHQ-2 Total Score (If total score is 3 or more points, staff should administer the PHQ-9) 0 10/04/2025 PHQ-9 Answer Date Recorded PHQ-9 Total Score 1 07/19/2025 AUDIT-C Answer Date Recorded Q1: How often do you have a drink containing alcohol? 4 or more times a week 10/04/2025 Q2: How many drinks containi ng alcohol do you have on a typical day when you are drinking? 5 or 6 Q3: How often do you have si x or more drinks on one occasion? Never 10/04/2025 Personal Safety Answer Date Recorded Have you ever been in or are you currently in a harmful physical or emotional relationship or is someone making you feel afraid or unsafe? 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 Kasper. Pt was confused b/c he thought Dr. Kasper would since she put them in. But he eventually voiced understanding. Asked if pt wanted to keep 11/11/[address] Kasper or cancel it. Pt informed our office could go ahead and cancel it. R ASSEMBLY INSPECTOR * Telephone Encounter - Clare Kasper MD - 10/28/2025 9:57 AM CST Yes should get restrictions from neurosurgery going forward R ASSEMBLY INSPECTOR * Telephone Encounter - Rubi Farr MA - 10/28/2025 9:24 AM MAJOR ASSEMBLY INSPECTOR Was verbally informed by Carol that pt scheduled himself an appt 11/11/25 to discuss lifting restrictions based on MRI. Pt sees neurologist that same morning, 11/11. Please advise. 1.) Unlikely to have pt notes from neurologist by our office's appt slot (11:30 AM neurology to 4:15 PM family medicine). 2.) Will pt receive restriction instructions from neurologist or Dr. Kasper? R ASSEMBLY INSPECTOR documented in this encounter Plan of Treatment [...] on filedocumented in this encounter Care Teams Data Conversion Operator Relationship Specialty Start Date End Date Clare Kasper MD PCP - General Family Medicine 07/27/22 documented as of this encounter
--- OUTSIDE RECORDS SUMMARY | 2025-10-28 16:19 | XMS_ITS | Patient Health Record ---
Author Organization [facility] Address [address] [facility] [address] [place], [place] [id number] Care Team Providers Care Boat Person Name Role Phone Glen Schafer Unavailable [phone] Reason For Referral No Information Medications Medication SIG (Take, Route, Frequency, Duration) Notes Start Date End Date Status Lisinopril 20 MG Tablet 1 tab(s) orally once a day Active Omeprazole 20 MG Capsule Delayed Release 1 cap(s) orally once a day Active Social History Tobacco Use: Social History Observation Description Date Details (start date - stop date) Current Smoker NA - NA Social History Social History Social Info Question Answer Notes Smoking Are you a: current smoker Additional Details Category Social Info Options Details Social History Occupation No Recreational drug use No Passive smoke exp: Yes Problems Problem Type SNOMED Code ICD Code Onset Dates Problem Status W/U Status Risk Notes Problem Tinnitus (76793172) TINNITUS (388.30) Active confirmed Problem Tobacco use (057307925) TOBACCO USE DISORDER (305.1) Active confirmed Plan Of Treatment No Information Insurance Providers Payer Name Payer Address Payer Phone Subscriber Number Group Number Insured Name Patient Relationship to Insured Coverage Start Date Coverage End Date [employer] [address] [place] [id number] Yariel [place] Self - patient is the insured Medical (General) History Medical History History ICD Code Pertinent Medical History: Ear problems, High blood pressure, Surgical History Surgery Date(Month/Year) carpel tunnel 2007
--- OUTSIDE RECORDS SUMMARY | 2025-10-28 16:19 | XMS_ITS | Clinical Summary ---
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
--- OUTSIDE RECORDS SUMMARY | 2025-10-28 16:19 | XMS_ITS | Encounter Summary ---
Author Organization [facility] Healthcare Address [address] [place] [address] Care Team Providers Care Senior Ecologist Name Role Phone Clare Kasper MD Primary Care Pro vider Reason for Visit * Reason Onset Date Comments Test Results 10/07/2025 Encounter Details Date Type Department Care Team ([facility] Contact Info) Description 10/07/2025 Telephone [facility] Medical [facility] Primary Care at [address] [phone] Clare Kasper MD [address] [place] [id number] Test Results Social History Tobacco Use [...] when you are drinking? 5 or 6 5 Q3: How often do you have si [...] on file Legal Sex Male 2:37 PM SPA ASSOCIATE Gender Identity Not on file Sexual Orientation Not on file documented as of this encounter Miscellaneous Notes * Telephone Encounter - Clare Kasper MD - 10/07/2025 11:23 AM CST See result note ASSOCIATE * Telephone Encounter - Minnie Dave - 10/07/2025 10:24 AM CST Test Result Request Type of test: MRI Date of test: 10-05-25 Where was the test performed at?[facility] Did provider dictate result yet? No Additional Questions/Comments: n/a Does message need to be routed? Yes-Action Needed ASSOCIATE documented in this encounter Plan of Treatment [...] filedocumented in this encounter Care Teams Senior Ecologist Relationship Specialty Start Date End Date Clare Kasper MD PCP - General Family Medicine 07/27/22 documented as of this encounter
--- OUTSIDE RECORDS SUMMARY | 2025-10-28 16:19 | XMS_ITS | Encounter Summary ---
Author Organization [facility] Address 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 Gender Identity Not on file Sexual Orientation Not on file documented as of this encounter Plan of Treatment Not on file documented as of this encounter Procedures Procedure Name Priority Date/Time Associated Diagnosis Comments CBC WITH DIFFERENTIAL Routine 11/17/2004 11:50 PM MEAT PRODUCTS DEMONSTRATOR CBC WITH DIFFERENTIAL Routine 11/17/2004 11:50 PM MEAT PRODUCTS DEMONSTRATOR LIPASE Routine 11/17/2004 11:50 PM MEAT PRODUCTS DEMONSTRATOR AMYLASE Routine 11/17/2004 11:50 PM MEAT PRODUCTS DEMONSTRATOR documented in this encounter Results * CBC WITH DIFFERENTIAL (11/17/2004 11:50 PM MEAT PRODUCTS DEMONSTRATOR) NEUTROPHILS 51 45 - 70 % INTERFAC [...] K/uL INTERFACE SYSTEM 11/17/2004 11:5 0 PM MEAT PRODUCTS DEMONSTRATOR Clifford Chandra MD HEMATOLOGY ORDERABLES Final Re sult Performing Organization Address City/[facility] de Phone Number INTERFACE SYSTEM Refer to clinic/hospital department * CBC WITH DIFFERENTIAL (11/17/2004 11:50 PM MEAT PRODUCTS DEMONSTRATOR) WBC 9.8 4.0 - 9.8 K/uL INTERFACE [...] fL INTERFACE SYSTEM 11/17/2004 11:5 0 PM MEAT PRODUCTS DEMONSTRATOR Clifford Chandra MD HEMATOLOGY ORDERABLES Final Re sult INTERFACE SYSTEM Refer to clinic/hospital department * LIPASE (11/17/2004 11:50 PM MEAT PRODUCTS DEMONSTRATOR) LIPASE 31 13 - 60 U/L INTERFAC E SYSTEM 11/17/2004 11:5 0 PM MEAT PRODUCTS DEMONSTRATOR Clifford Chandra MD CHEMISTRY ORDERABLES Final Res ult Performing Organization Address [facility] de Phone Number INTERFACE SYSTEM Refer to clinic/hospital department * AMYLASE (11/17/2004 11:50 PM MEAT PRODUCTS DEMONSTRATOR) AMYLASE 85 28 - 100 U/L INTERFACE SYSTEM 11/17/2004 11:5 0 PM MEAT PRODUCTS DEMONSTRATOR us Clifford Chandra MD CHEMISTRY ORDERABLES Final Res ult Performing Organization Address [facility] de Phone Number INTERFACE SYSTEM Refer to clinic/hospital department documented in this encounter Visit Diagnoses Diagnosis Abdominal pain, other specified site- Primary documented in this encounter Care Teams Statistics Teacher Relationship Specialty Start Date End Date Clare Kasper MD [address] [place] [id number] PCP - General Family Practice 07/11/24 documented as of this encounter
--- OUTSIDE RECORDS SUMMARY | 2025-10-28 16:19 | XMS_ITS | Clinical Summary ---
Author Organization [facility] Address [address] [place] [address] Care Team Providers Care Ecclesiastical Worker Name Role Phone Clare Kasper MD Primary Care Provider [phone] Allergies No known active allergies Medications No known medications Encounters Date Type Department Care Team Description 08/21/2025 3:20 PM CDT - 08/21/2025 7:35 PM CDT Emergency [facility] [place] [address] Pedro Wilson PA Alcohol Intoxication Discharge Disposition: Home or Self Care (Routine Discharge) 08/21/2025 Travel from Last 3 Months Social History Tobacco Use Types Packs/Day Years Used Date Smoking Tobacco: Every Day Cigarettes Smokeless Tobacco: Never Tobacco Cessation:Ready to Q uit: Not Asked; Counseling Given: Not Answered Alcohol Use Standard Drinks/Week Comments Yes 0 (1 standard drink = 0.6 oz pur e alcohol) Sex and Gender Information Value Date Recorded Sex Assigned at Male 08/21/2025 3:00 PM CDT Legal Sex Male 6:08 PM CDT Gender Identity Not on file Sexual Orientation Not on file Last Filed Vital Signs Vital Sign Reading Time Taken Comments Blood Pressure 151/72 08/21/2025 6:58 PM CDT Pulse 76 08/21/2025 6:58 PM CDT Temperature 36.8 C (98.3 F) 08/21/2025 6:58 PM CDT Respiratory Rate 18 08/21/2025 6:58 PM CDT Oxygen Saturation 98% 08/21/2025 6:58 PM CDT Inhaled Oxygen Concentration - - Weight 60.8 kg (134 lb) 08/21/2025 2:40 PM CDT Height 170.2 cm (5' 7) 08/21/2025 2:40 PM CDT Body Mass Index 20.99 08/21/2025 2:40 PM CDT Plan of Treatment Health Maintenance Due Date Last Done Comments Annual Physical 1973 Hepatitis C 1988 Hepatitis B Vaccines (2 of 3 - Hep B Twinrix 3-dose series) 12/18/2012 11/20/2012 COVID-19 Vaccine ( season) 2025 07/27/2024, 07/18/2023, 08/07/2022, Additional history exists Colorectal Cancer Screening Colonoscopy (10 Years) 06/24/2031 06/24/2021 DTaP, Tdap and Td Vaccines (5 - Td or Tdap) 01/05/2034 01/06/2024, 08/31/2013, 04/05/2013, Additional history exists Hepatitis A Vaccines Aged Out 11/20/2012, 11/13/19 03 No longer eligible based on patient's age to complete this topic Zoster Vaccines Completed 06/10/2023, 04/04/2023 Influenza Adult Completed 07/19/2025, 07/02, 07/18/2023, Additional history exists Pneumococcal Vaccine: 50+ Years Completed 07/19/2025, 06/18/2020, 11/20/2012, Additional history exists Meningococcal B Vaccine Aged Out No l onger eligible based on patient's age to complete this topic Meningococcal Vaccine Aged Out No manav saul eligible based on patient's age to complete this topic RSV Immunizations Under 20 Months Aged Out No longer eligible based on patient's age to complete this topic Procedures Procedure Name Priority Date/Time Associated Diagnosis Comments PROTHROMBIN TIME STAT 08/21/2025 3:29 PM CDT LIPASE STAT 08/21/2025 3:29 PM CDT COMPREHENSIVE METABOLIC PANEL STAT 08/21/2025 3:29 PM CDT CBC W/DIFF AUTOMATED STAT 08/21/2025 3:29 PM CDT from Last 3 Months Results * (ABNORMAL) PROTIME/INR, VENOUS (08/21/2025 3:29 PM CDT) PROTIME 10.1(L) 10.2 - 12.9 SEC 08/21/2025 4:12 PM CDT [facility] INR 0.9 08/21/2025 4:12 PM CDT [facility] Comment: Recommended INR Therapeutic Goals: 2.0-3.0 Routine Therapy 2.5-3.5 Mechanical Prosthetic Valves (High Risk) 08/21/2025 3:29 PM CDT us [facility] Final Resu lt [facility] [address] [place] [address], [place] [phone] * (ABNORMAL) COMPREHENSIVE METABOLIC PANEL (08/21/2025 3:29 PM CDT) Pathologist [facility] GLUCOSE 84 70 - 99 MG/DL 08/21/2025 4:05 PM CDT [facility] BUN 9 7 - 18 MG/DL 08/21/2025 4:05 PM CDT [facility] CREATININE S/P/B 0.91 0.7 - 1.3 MG/DL 08/21/2025 4:05 PM CDT [facility] SODIUM S/P/B 142 136 - 145 MMOL/L 08/21/2025 4:05 PM CDT [facility] POTASSIUM S/P/B 4.2 3.5 - 5.1 MMOL/L 08/21/2025 4:05 PM CDT [facility] Comment:SLIGHT HEMOLYSIS, RE SULT MAY BE AFFECTED. CHLORIDE S/P/B 102 97 - 115 MMOL/L 08/21/2025 4:05 PM CDT [facility] CO2 28.1 21 - 32 MMOL/L 08/21/2025 4:05 PM T [facility] CALCIUM S/P/B 9.1 8.5 - 10.1 MG/DL 08/21/2025 4:05 PM T [facility] BILIRUBIN TOTAL S/P/B 1.0 0.2 - 1.2 MG/DL 08/21/2025 4:05 PM T [facility] Comment: THIS ASSAY IS NOT RECOMMENDED FOR PATIENTS UNDERGOING TREATMENT WITH ELTROMBOPAG DUE TO THE POTENTIAL FOR FALSELY ELEVATED RESULTS. TOTAL PROTEIN S/P/B 7.6 6.4 - 8.2 G/DL 08/21/2025 4:05 PM T [facility] ALBUMIN S/P/B 4.0 3.4 - 5.0 G/DL 08/21/2025 4:05 PM T [facility] AST 331(H) 15 - 37 U/L 08/21/2025 4:05 PM T [facility] Comment:SLIGHT HEMOLYSIS, RE SULT MAY BE AFFECTED. ALT 151(H) 16 - 60 U/L 08/21/2025 4:05 PM T [facility] ALKALINE PHOSPHATASE S/P/B 73 50 - 136 U/L 08/21/2025 4:05 PM [facility] ANION GAP 11.9(H) 2 - 10 MMOL/L 08/21/2025 4:05 PM T [facility] BUN CREATININE RATIO 9.9 6 - 26 08/21/2025 4:05 PM [facility] A/G RATIO 1.1 1.0 - 2.0 RATIO 08/21/2025 4:05 PM [facility] GFR ESTIMATE >90 >90 ML/MIN/1.7 3 M2 08/21/2025 4:05 PM T [facility] Comment: NOTE: eGFR is not calculated for patients <18 years of age or gender unknown. This is an estimated GFR calculation using the new CKD EPI creatinine equation without race and so does not require a correction factor for race. This estimated GFR should not be used for calculating drug doses. 08/21/2025 3:29 PM CDT us [facility] Final Resu lt [facility] [address] [place] [address], [place] [phone] * (ABNORMAL) CBC W/DIFF AUTOMATED (08/21/2025 3:29 PM CDT) WBC 7.74 4.5 - 11.0 x10'3/uL 08/21/2025 4:12 PM CDT [facility] RBC 4.38(L) 4.70 - 6.10 x10'6/uL 08/21/2025 4:12 PM CDT [facility] HGB 14.4 14.0 - 18.0 G/DL 08/21/2025 4:12 PM CDT [facility] HCT 40.4(L) 43.0 - 54.0 % 08/21/2025 4:12 PM CDT [facility] MCV 92.2 80.0 - 94.0 FL 08/21/2025 4:12 PM CDT [facility] MCH 32.9(H) 27.0 - 31.0 PG 08/21/2025 4:12 PM CDT [facility] MCHC 35.6 32.0 - 36.0 G/DL 08/21/2025 4:12 PM CDT [facility] RDW 14.1 11.5 - 14.5 % 08/21/2025 4:12 PM CDT [facility] PLT 132 130 - 400 x10'3/uL 08/21/2025 4:12 PM CDT [facility] MPV 9.8 9.3 - 12.2 FL 08/21/2025 4:12 PM CDT [facility] DIFFERENTIAL TYPE AUTOMATED DIFFERENTIAL 08/21/2025 4:12 PM CDT [facility] NEUTROPHILS % 61.2 % 08/21/2025 4:12 PM CDT [facility] LYMPHOCYTES % 26.7 % 08/21/2025 4:12 PM CDT [facility] MONOCYTES % 8.8 % 08/21/2025 4:12 PM CDT [facility] EOSINOPHILS 2.1 % 08/21/2025 4:12 PM CDT [facility] BASOPHILS 0.9 % 08/21/2025 4:12 PM CDT [facility] IMMATURE GRANS % 0.3 % 08/21/20 4:12 PM CDT [facility] ABS. NEUTROPHILS 4.74 1.80 - 7.70 x10'3/uL 08/21/2025 4:12 PM CDT [facility] ABS. LYMPHOCYTES 2.07 1.00 - 4.80 x10'3/uL 08/21/2025 4:12 PM CDT [facility] ABS. MONOCYTES 0.68 0.30 - 0.82 x10'3/uL 08/21/2025 4:12 PM CDT [facility] ABS. EOSINOPHILS 0.16 0.04 - 0.54 x10'3/uL 08/21/2025 4:12 PM CDT [facility] ABS. BASOPHILS 0.07 0.01 - 0.08 x10'3/uL 08/21/2025 4:12 PM CDT [facility] ABS. IMMATURE GRANULOCYTES 0.02 0.00 - 0.49 x10'3/uL 08/21/2025 4:12 PM CDT [facility] 08/21/2025 3:29 PM CDT [facility] Final Resu lt Performing Organization Address City/[facility]/ZIP Co de Phone Number [facility] [address] [place] [address], [place] [phone] * LIPASE (08/21/2025 3:29 PM CDT) LIPASE 29 13 - 75 UNITS/L 08/21/2025 4:05 PM CDT [facility] 08/21/2025 3:29 PM CDT [facility] Final Resu lt Performing Organization Address City/[facility] Co de Phone Number [facility] [address] [place] [address], [place] [phone] from Last 3 Months Insurance [facility] Care Teams Ecclesiastical Worker Relationship Specialty Start Date End Date Clare Kasper MD [address] [address] PCP - General FAMILY PRACTICE 08/21/25
--- OUTSIDE RECORDS SUMMARY | 2025-10-28 16:20 | XMS_ITS | Clinical Summary ---
Author Organization [facility] Address [address] [place] [address] Care Team Providers Care Electronics Technology Instructor Name Role Phone Clare Kasper MD [...] 2 weeks at a time 30 g 2 027 Active pimecrolimus (ELIDEL) 1 % creamIndications:A llergic contact dermatitis due to other agents Apply topically 2 (two) times a day as needed (facial rash) 30 g 6 4 Active rosuvastatin (CRESTOR) 10 mg tabletIndications: Hyperlipidemia, unspecified hyperlipidemia type Take 1 tablet (10 mg total) by mouth daily In addition to 5mg tablet for a total daily dose of 15mg 90 tablet 1 5 026 Active rosuvastatin (CRESTOR) 5 mg tabletIndications: Hyperlipidemia, unspecified hyperlipidemia type Take 1 tablet (5 mg total) by mouth daily In addition to 10mg tablet for a total daily dose of 15mg 90 tablet 1 5 026 Active famotidine (PEPCID) 40 mg tabletIndications: Gastroesophageal reflux disease, unspecified whether esophagitis present Take 1 tablet (40 mg total) by mouth nightly as needed for heartburn 90 tablet 1 5 026 Active fexofenadine (THUAN) 180 mg tablet Take 1 tablet (180 mg total) by mouth daily as needed 4 Active doxycycline hyclate (VIBRAMYCIN) 50 mg capsule 5 Active clindamycin-benzoy l peroxide (BENZACLIN) gel Apply topically 2 (two) times a day 25 g 5 Active amLODIPine (NORVASC) 10 mg tabletIndications: Primary hypertension TAKE 1 TABLET(10 MG) BY MOUTH DAILY 100 tablet 1 5 Active traZODone (DESYREL) 50 mg tabletIndications: Primary insomnia Take 1 tablet (50 mg total) by mouth nightly as needed for sleep 90 tablet 1 5 Active folic acid (FOLVITE) 1 mg tabletIndications: Folate deficiency Take 1 tablet (1 mg total) by mouth daily 90 tablet 4 5 026 Active cholecalciferol (VITAMIN D-3) 2000 unit capsuleIndications :Vitamin D deficiency Take 1 capsule (2,000 Units total) by mouth daily 90 capsule 3 5 026 Active gabapentin (NEURONTIN) 300 mg capsule TAKE 1 CAPSULE(300 MG) BY MOUTH THREE TIMES DAILY 270 capsule 1 5 Active Active Problems Problem Noted Date Diagnosed Date Cervical radiculopathy 07/19/2025 Assessment & Plan (10/09/2025 1:31 PM HEAD CHOPPER): Uncontrolled Initially updated work paperwork to only restrict right arm per patient request in order to avoid losing his job, but MRI results came back 10/07 with significantly increased bilateral foraminal narrowing at C6-7and increasingly severe right foraminal narrowing C5-C6 so work paperwork updated again to restrict lifting both arms Referral placed to neurosurgery Assessment & Plan (08/27/2025 1:58 PM CDT): Uncontrolled Previously worsened with physical therapy Now having weakness, will get EMG and plan for MRI FMLA paperwork filled out, advise light duty Continue gabapentin Assessment & Plan (07/19/2025 10:23 AM CDT): 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 Continue medications as prescribed and follow up with PCP/specialist as scheduled. Follow up in: six months Environmental and seasonal allergies 12/13/2022 Overview (01/04/2025): Last Assessment & Plan: Condition: stable Discussed with Yariel about environmental and seasonal allergies. Discussed about potential triggers and avoidance of triggers. Yariel reports compliance with current regimen as advised by the PCP. Follow up in: six months Protein-calorie malnutrition, mild 12/13/2022 Overview (01/04/2025): Last Assessment & Plan: Condition: stable Follow up in: six months Primary insomnia 03/25/2022 Assessment & Plan (03/27/2024 5:05 PM CDT): Trazodone as needed Assessment & Plan (10/25/2023 2:41 PM HEAD CHOPPER): Trazodone as needed Assessment & Plan (03/25/2022 [...] pharmacological treatment at the time. 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 Hyperlipidemia 08/19/2021 Assessment & Plan (07/19/2025 10:18 AM CDT): Continue 15mg rosuvastatin Assessment & Plan (12/28/2024 9:43 AM HEAD CHOPPER): LDL controlled <70 Continue 15mg rosuvastatin Assessment & Plan (03/27/2024 5:04 PM CDT): Continue statin Assessment & Plan (10/25/2023 2:42 PM HEAD CHOPPER): Continue statin Assessment & Plan (01/24/2023 2:35 [...] panel Tobacco use 08/19/2021 Assessment & Plan (07/19/2025 10:10 AM CDT): advise cessation Assessment & Plan (12/28/2024 9:37 AM HEAD CHOPPER): Encouraged cessation Assessment & Plan (01/24/2023 2:36 PM CDT): [...] asplenia): give today (06/18/20) Assessment & Plan (12/28/2024 9:37 AM HEAD CHOPPER): Reviewed PMH & Reviewed medications and supplements HCM: orders placed as needed Assessment & Plan (10/25/2023 2:15 PM HEAD CHOPPER): Reviewed PMH & Phq reviewed Reviewed medications and supplements HCM: [...] July Assessment & Plan (09/29/2018 5:39 PM HEAD CHOPPER): Flu shot and referral for colonoscopy today Macrocytic anemia 06/13/2018 Assessment & Plan (09/29/2018 5:27 PM HEAD CHOPPER): Mild anemia with last Hb 12.9 (from 12/2016). Folate, B12, Iron panel normal. -CBC today GERD (gastroesophageal reflux disease) 5 Assessment & Plan (07/19/2025 10:21 AM CDT): Controlled Pepcid as needed Assessment & Plan (12/28/2024 9:43 AM HEAD CHOPPER): Controlled Try switching omeprazole as needed to pepcid Assessment & Plan (03/27/2024 5:05 PM CDT): Stable off medications Assessment & Plan (10/25/2023 2:36 PM HEAD CHOPPER): Uncontrolled Restart omeprazole Assessment & Plan (01/24/2023 [...] affected toes. Hypertension 06/26/2014 Assessment & Plan (08/29/2025 2:38 PM CDT): Uncontrolled today, may be related to pain as previously controlled continue 10mg amlodipine Will continue to monitor, if persistently elevated consider additional medication Assessment & Plan (07/19/2025 10:09 AM CDT): continue 10mg amlodipine Assessment & Plan (12/28/2024 9:37 AM HEAD CHOPPER): Blood pressure controlled continue 10mg amlodipine Assessment & Plan (03/27/2024 5:04 PM CDT): Blood pressure controlled continue 10mg amlodipine Assessment & Plan (10/25/2023 2:15 PM HEAD CHOPPER): Blood pressure controlled continue 10mg amlodipine Assessment [...] hyperkalemia Assessment & Plan (12/08/2020 12:32 PM HEAD CHOPPER): Blood pressure very well-controlled with amlodipine. No [...] daily Assessment & Plan (09/29/2018 5:25 PM HEAD CHOPPER): Poorly controlled hypertension 157/81 in clinic today. [...] cessation Assessment & Plan (10/25/2023 2:42 PM HEAD CHOPPER): Encourage cessation, he is interested in starting wellbutrin Assessment & Plan (09/29/2018 5:29 PM HEAD CHOPPER): Was given patches at our last visit however he feels like they make him itch. He continues to smoke 1/2PPD. -As he has other active issues going on today, namely ETOH cessation, we will defer further discussion to our next visit. Would consider pharmacologic therapy for him, chantix vs wellbutrin. Alcohol use disorder 11/13/2012 Assessment & Plan (10/09/2025 1:31 PM HEAD CHOPPER): Uncontrolled, recent relapse after family member's Requesting librium, but last drink only a couple of hours prior to visit so likely still intoxicated and CIWA normal. 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 He describes it as a v acation that he takes from time to time. [...] diet Assessment & Plan (09/29/2018 5:36 PM HEAD CHOPPER): He typically drinks twice a year for [...] 07/06/2019 Assessment & Plan (09/29/2018 5:30 PM HEAD CHOPPER): Mild sinus congestion today. No indication for [...] available. 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 Sore throat [...] request) Assessment & Plan (09/29/2018 5:26 PM HEAD CHOPPER): Vitamin D 18 on 05/2018 labs, will start 50,000 units vit D weekly today. Arthralgia of shoulder 11/13/201206/13 Encounters Date Type Department Care Team Description 10/28/[address] [facility] Primary Care at [address] [place] [address] Clare Kasper MD 10/10/2025 Telephone [facility] [address] [place] [address] [address], [address] [place] [address] Kati Ramirez RN 10/08/2025 Documentation [facility] [address] [place] [address] [address], [address] [place] [address] Traci Meyers RN 10/07/2025 Results Follow-Up [facility] Primary Care at [address] [address] Clare Kasper MD MRI Cervical Spine WO Contrast 10/07/2025 Telephone [facility] Primary Care at [address] [address] Clare Kasper MD Test Results 10/05/2025 2:37 PM HEAD CHOPPER - 10/05/2025 4:00 PM HEAD CHOPPER Emergency [facility] [address] [place] [address] Alcohol use disorder (Primary Dx) Discharge Disposition: Discharge to home or self care 10/05/2025 9:44 AM HEAD CHOPPER - 10/05/2025 11:59 PM HEAD CHOPPER Hospital [facility] MRI [address] [place] [address] Cervical radiculopathy Discharge Disposition: Discharge to home or self care 10/04/2025 3:30 PM HEAD CHOPPER Office Visit [facility] Primary Care at [address] [phone] Clare Kasper MD Cervical radiculopathy (Primary Dx); Alcohol use disorder 09/12/2025 Telephone [facility] Primary Care at [address] [address] Clare Kasper MD Test Results 08/27/2025 1:30 PM CDT Office Visit [facility] Primary Care at [address] [phone] Clare Kasper MD Cervical radiculopathy (Primary Dx); Acute non-recurrent maxillary sinusitis; Primary hypertension 08/27/2025 Telephone [facility] Primary Care at [address] [phone] Clare Kasper MD Forms Request 08/23/2025 Nurse Triage [facility] Primary Care at [address] [place] [address] Clare Kasper MD 08/20/2025 Nurse Triage [facility] Primary Care at [address] [place] [address] Марина Callahan RN 08/13/2025 Telephone [facility] Primary Care at [address] [place] [address] Clare Kasper MD Appointment Request; Forms Request from Last 3 Months Immunizations Immunization Administration Dates Next Due DTaP 04/05/2013 Hep [...] 08/13/2014 Influenza, Trivalent, Preser vative Free, Intramuscular 07/19/2025,07/27/2024,08/25/2015,12/07,11/20/2012,11/13/2012 Influenza, Unspecified 09/30/2016 Moderna SARS-CoV-2 Monovalen t Vaccination (12+ YRS) 08/07/2022,01/17/2021,12/17/2020 Moderna Sars-cov-2 Monovalen t Booster Vaccination (12+ YRS) 08/07/2022 Pneumococcal Conjugate PCV 13 06/18/2020 Pneumococcal Conjugate Pcv20 07/19/2025 Pneumococcal Polysaccharide PPV23 11/20/2012, TD Preservative Free 08/31/2013 Tdap 01/06/2024,11/20/2012 ZOSTER Recombinant 06/10/2023,04/04/2023 Surgical History Surgery Date Site/Laterality Comments CARPAL TUNNEL RELEASE 10/31/2007 - 10/30/2008 Left COLONOSCOPY UPPER GASTROINTESTINAL ENDOSCOPY Medical History Medical History Date Comments Pancreatitis Hypertension Anemia Anxiety Vitamin D deficiency 11/28/2012 GERD (gastroesophageal reflux disease) Alcohol abuse Osteoarthritis of spine with radiculopathy, 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 DDD (degenerative disc disease), cervical Family History Medical History Relation Name Comments [...] on file Legal Sex Male 2:37 PM HEAD CHOPPER Gender Identity Not on file Sexual Orientation Not on file Last Filed Vital Signs Vital Sign Reading Time Taken Comments Blood Pressure 135/74 10/05/2025 3:50 PM HEAD CHOPPER Pulse 60 10/05/2025 3:50 PM HEAD CHOPPER Temperature 36.5 C (97.7 F) 10/05/2025 3:25 PM HEAD CHOPPER Respiratory Rate 18 10/05/2025 3:50 PM HEAD CHOPPER Oxygen Saturation 100% 10/05/2025 3:50 PM HEAD CHOPPER Inhaled Oxygen Concentration - - Weight 49.9 kg (110 lb) 10/05/2025 10:39 AM HEAD CHOPPER Height 165 cm (5' 4.96) 10/04/2025 3:35 PM HEAD CHOPPER Body Mass Index 18.33 10/04/2025 3:35 PM HEAD CHOPPER Plan of Treatment Health Maintenance Due Date Last Done Comments Covid-19 Vaccine ( season) 2025 07/27/2024, 07/18/2023, 08/07/2022, Additional history exists Regular Well Visit/Exam 18-64 12/28/2025 12/28/2024, 10/25/2023 Depression Screening 10/04/2026 10/04/2025, 07/19/2025, 07/19/2025, Additional history exists Prostate Cancer Screening-PSA 12/28/2026 12/28/2024, 07/27/2022 Colon Cancer Screening-Colonoscopy 06/24/2031 06/24/2021, 05/14/2020 DTaP/Tdap/Td Vaccine (5 - Td or Tdap) 01/05/2034 01/06/2024, 08/31/2013, 04/05/2013, Additional history exists Hepatitis B Screening Completed 11/20/2012 Colon Cancer Screening-CT Colonography Discontinued 06/24/2021, 05/14/2020 Colon Cancer Screening-DNA Stool Discontinued 06/24/20 21, 05/14/2020 Colon Cancer Screening-FIT Discontinued 06/24/2021, Colon Cancer Screening-Sigmoidoscopy Discontinued 06/24/2021, 05/14/2020 Zoster Vaccine Completed 06/10/2023, 04/04/2023 Hepatitis C Screening Completed 07/19/2025 , 12/28/2024, 03/27/2024, Additional history exists Influenza Vaccine Completed 07/19/2025, , 07/18/2023, Additional history exists Pneumococcal vaccine <65 Completed 025, 06/18/2020, 11/20/2012, Additional history exists Goals Goal Patient Goal [...] Procedure Name Priority Date/Time Associated Diagnosis Comments MAGNESIUM STAT 10/05/2025 10:49 AM HEAD CHOPPER EGFR STAT 10/05/2025 10:49 AM HEAD CHOPPER URINALYSIS, MICROSCOPIC ONLY STAT 10/05/2025 10:49 AM HEAD CHOPPER DIFFERENTIAL AUTO STAT 10/05/2025 10:49 AM HEAD CHOPPER DRUGS OF ABUSE SCREEN, URINE WITHOUT CONFIRMATION STAT 10/05/2025 10:49 AM HEAD CHOPPER ETHANOL STAT 10/05/2025 10:49 AM HEAD CHOPPER THYROID FUNCTION CASCADE STAT 10/05/2025 10:49 AM HEAD CHOPPER COMPREHENSIVE METABOLIC PANEL STAT 10/05/2025 10:49 AM HEAD CHOPPER CBC WITH AUTO DIFFERENTIAL STAT 10/05/2025 10:49 AM HEAD CHOPPER URINALYSIS AND REFLEX TO MICROSCOPIC AND CULTURE STAT 10/05/2025 10:49 AM HEAD CHOPPER MRI CERVICAL SPINE WO CONTRAST Schedule Routine, Read Routine (OP Routine) 10/05/2025 10:36 AM HEAD CHOPPER Cervical radiculopathy HEPATITIS PANEL, ACUTE Routine 07/19/2025 11:02 AM CDT Annual physical exam PSA SCREEN Routine 12/28/2024 10:07 AM HEAD CHOPPER Screening PSA (prostate specific antigen) Annual physical exam COLONOSCOPY 06/24/2021 9:15 AM CDT from Last 3 Months or Most Recently Relevant to Health Maintenance Results * eGFR (10/05/2025 10:49 AM HEAD CHOPPER) eGFR >90 >=60 mL/min/1. 73 m2 Comment: Interpretive Data Reference Interval Normal >/= 90 mL/min/1.73m2 Mildly decreased* 60 - 89 mL/min/1.73m2 Mildly to moderately decreased 45 - 59 mL/min/1.73m2 Moderately to severely decreased 30 - 44 mL/min/1.73m2 Severely decreased 15 - 29 mL/min/1.73m2 Kidney Failure < 15 mL/min/1.73m2 *Relative to young adult level Estimated glomerular [...] interpretive data was last reviewed 2021. Blood 10/05/2025 10:4 9 AM HEAD CHOPPER 10/05/2025 10:56 AM HEAD CHOPPER Cecile [facility] BLOOD ORDERABLES Final Result [facility] [address] [facility] [place] [address] * Differential, auto (10/05/2025 10:49 AM HEAD CHOPPER) Pathologist [facility] Neutrophil abs 3.16 1.50 - 6.50 K/cumm Imm gran abs 0.00 0.00 - 0.10 K/cumm [facility] Lymphocyte abs 2.34 0.80 - 3.30 K/cumm [facility] Monocyte abs 0.48 0.20 - 0.80 K/cumm [facility] Eosinophil abs 0.15 0.00 - 0.50 K/cumm [facility] Basophil abs 0.07 0.00 - 0.10 K/cumm [facility] Neutrophil pct 51.1 % [facility] Comment: Interpretive Data Percent cell count reference ranges are not reported, since discordance with absolute values may lead to misinterpretation of CBC data. Current Interpretive Data was last revised on 2018. Imm gran pct 0.0 % [facility] Comment: Interpretive Data Percent cell count reference ranges are not reported, since discordance with absolute values may lead to misinterpretation of CBC data. Current Interpretive Data was last revised on 2018. Lymphocyte pct 37.7 % [facility] Comment: Interpretive Data Percent cell count reference ranges are not reported, since discordance with absolute values may lead to misinterpretation of CBC data. Current Interpretive Data was last revised on 2018. Monocyte pct 7.7 % [facility] Comment: Interpretive Data Percent cell count reference ranges are not reported, since discordance with absolute values may lead to misinterpretation of CBC data. Current Interpretive Data was last revised on 2018. Eosinophil pct 2.4 % [facility] Comment: Interpretive Data Percent cell count reference ranges are not reported, since discordance with absolute values may lead to misinterpretation of CBC data. Current Interpretive Data was last revised on 2018. Basophil pct 1.1 % [facility] Comment: Interpretive Data Percent cell count reference ranges are not reported, since discordance with absolute values may lead to misinterpretation of CBC data. Current Interpretive Data was last revised on 2018. Blood 10/05/2025 10:4 9 AM HEAD CHOPPER 10/05/2025 10:56 AM HEAD CHOPPER Cec[facility] BLOOD ORDERABLES Final Result Performing Organization Address [facility] Co de Phone Number [address] [address] * Thyroid Function [place] (10/05/2025 10:49 AM HEAD CHOPPER) TSH 1.89 0.30 - 4.20 mcIUnit/mL Blood 10/05/2025 10:4 9 AM HEAD CHOPPER 10/05/2025 10:56 AM HEAD CHOPPER Cecile [facility] BLOOD ORDERABLES Final Result Performing Organization Address [facility] de Phone Number [address] [address] * (ABNORMAL) Urinalysis reflex to microscopic and culture Urine (10/05/2025 10:49 AM HEAD CHOPPER) Color, ur Yellow Yellow Clarity, ur Clear Clear [facility] Specific gravity, ur 1.025 1.003 - 1.030 CIRSTY pH, urine 6.0 [facility] Comment: Interpretive Data U rine pH is affected by diet, medications, systemic acid-base disturbances, and renal tubular function. pH may affect urinary stone formation. For example, urine pH below 6.0 may help reduce the tendency for calcium phosphate stones and pH greater than 6.0 may reduce the tendency for uric acid stone formation. Source: [facility] Current Interpretive Data was last revised on 2017 Protein, ur ql 1+(A) Negative [facility] Glucose, ur ql Negative Negative [facility] Ketones, ur Trace Negative [facility] Bilirubin, ur Negative Negative [facility] Blood, ur 1+(A) Negative [facility] Urobilinogen, ur 4.0(A) <2.0 mg/dL [facility] Nitrite, ur Negative Negative [facility] Leukocyte esterase, ur Negative Negative [facility] UA reflex comment Reflex to microscopic UA will be performed. [facility] Urine 10/05/2025 10:4 9 AM HEAD CHOPPER 10/05/2025 10:56 AM HEAD CHOPPER Cecile [facility] MICROBIOLOGY - GENERAL ORDERABLES Final Result Performing Organization Address City/[facility] Co de Phone Number [facility] [address] [facility] [place] [address] * (ABNORMAL) CBC with auto differential (10/05/2025 10:49 AM HEAD CHOPPER) WBC 6.20 3.80 - 9.90 K/cumm Hgb 15.1 13.0 - 17.5 g/dL [facility] Hct 43.5 38.9 - 50.3 % [facility] Plt 251 150 - 400 K/cumm [facility] MPV 8.9(L) 9.1 - 12.3 fL [facility] RBC 4.58 4.30 - 5.80 M/cumm [facility] MCV 95.0 81.3 - 96.4 fL [facility] MCH 33.0 27.1 - 33.3 pg [facility] MCHC 34.7 32.3 - 35.7 g/dL [facility] RDW CV 14.4 11.1 - 14.9 % [facility] RDW SD 50.3(H) 35.7 - 48.1 fL [facility] NRBC abs 0.00 0.00 - 0.01 K/cumm [facility] Blood Venous blood specimen / Unknown 10/05/2025 10:49 AM HEAD CHOPPER 10/05/2025 10:56 AM HEAD CHOPPER Cec[facility] BLOOD ORDERABLES Final Result Performing Organization Address City/[facility] Co de Phone Number [facility] [address] [facility] [place] [address] * (ABNORMAL) Drugs of Abuse Screen, Urine without Confirmation (10/05/2025 10:49 AM HEAD CHOPPER) [facility] Signature Amphetamine, ur Not Detected CutOff 500ng/mL Comment: Interpretive Data - Amphetamines: Samples containing greater than 500 ng/mL d-methamphetamine or other cross-reacting amphetamine compounds are reported as positive. Amphetamine immunoassays are subject to significant false positive rates due to cross-reactivity of non-amphetamine drugs. Confirmatory testing required for definitive results. Current Interpretive Data was last reviewed 2023. Barbiturates, ur Not Detected CutOff 200ng/mL [facility] Comment: Interpretive Data - Barbiturates: Samples containing greater than 200 ng/mL secobarbital or other cross-reacting barbiturate compounds are reported as positive. False positive and false negative results are possible. Confirmatory testing required for definitive results. Current Interpretive Data was last reviewed 2023. Benzodiazepines, ur Screen Positive, presumptive (A) CutOff 100ng/mL [facility] Comment: Interpretive Data - Benzodiazepines: Samples containing greater than 100 ng/mL nordiazepam or other cross-reacting compounds are reported as positive. False positive and false negative results are possible. Confirmatory testing required for definitive results. Current Interpretive Data was last reviewed 2023. Cannabinoids, ur Not Detected CutOff 50 ng/mL [facility] Comment: Interpretive Data - Cannabinoids: Samples containing greater than 50 ng/mL delta-9 THC -COOH or other cross- reacting compounds are reported as positive. False positive and false negative results are possible. Confirmatory testing required for definitive results. Current Interpretive Data was last reviewed 2023. Cocaine, ur Not Detected CutOff 150ng/mL [facility] Comment: Interpretive Data - Cocaine: Samples containing greater than 150 ng/mL benzoylecgonine or other cross- reacting compounds are reported as positive. False positive and false negative results are possible. Confirmatory testing required for definitive results. Current Interpretive Data was last reviewed 2023. Fentanyl, Ur Not Detected CutOff 5 ng/mL [facility] Comment: Interpretive Data - Fentanyl: Samples containing greater than 5 ng/mL norfentanyl, fentanyl, or other cross-reacting fentanyl compounds are reported as positive. False positive and false negative results are possible. Confirmatory testing required for definitive results. Current Interpretive Data was last reviewed 2024. Methadone, ur Not Detected CutOff 300ng/mL [facility]STY Comment: Interpretive Data - Methadone: Samples containing greater than 300 ng/mL d,l-methadone or other cross-reacting compounds are reported as positive. False positive and false negative results are possible. Confirmatory testing required for definitive results. Current Interpretive Data was last reviewed 2023. Opiates, ur Not Detected CutOff 300ng/mL [facility] Comment: Interpretive Data - Opiates: Samples containing greater than 300 ng/mL morphine or other cross-reacting compounds are reported as positive. False positive and false negative results are possible. Confirmatory testing required for definitive results. Current Interpretive Data was last reviewed 2023. Oxycodone, ur Not Detected CutOff 100ng/mL [facility] Comment: Interpretive Data - Oxycodone: Samples containing greater than 100 ng/mL oxycodone or other cross-reacting compounds are reported as positive. False positive and false negative results are possible. Confirmatory testing required for definitive results. Current Interpretive Data was last reviewed 2023. Phencyclidine, ur Not Detected CutOff 25 ng/mL [facility] Comment: Interpretive Data - Phencyclidine: Samples containing greater than 25 ng/mL phencyclidine or other cross-reacting compounds are reported as positive. False positive and false negative results are possible. Confirmatory testing required for definitive results. Current Interpretive Data was last reviewed 2023. Urine Creatinine 269 mg/dL [facility] Comment: Interpretive Data Urine Creatinine: < 10 mg/dL is extremely dilute = or > 10 but < 20 mg/dL is dilute = or > 20 mg/dL is normal Current Interpretive Data was last revised on 2018. Urine 10/05/2025 10:4 9 AM HEAD CHOPPER 10/05/2025 10:56 AM HEAD CHOPPER Narrative CRISTY - 10/05/2025 11:23 AM HEAD CHOPPER Drug of Abuse screening is performed by immunoassay for medical purposes only. This is not to be used for Pain Management purposes. Cecile [facility] URINE ORDERABLES Final Result Performing Organization Address [facility] de Phone Number [address] [address] * (ABNORMAL) Urinalysis, microscopic only (10/05/2025 10:49 AM HEAD CHOPPER) [facility] WBC, ur 0-5 0 - 5 /HPF RBC, ur 6-10(A) 0 - 2 /HPF [facility] Epithelial cells, squamous, ur 1-5 0 - 5 /HPF [facility] Mucous, ur Present(A) [facility] Hyaline casts, ur 6-10 0 - 10 /LPF [facility] Culture Reflex Comment Reflex conditions for urine culture (WBC >10) not met. [facility] Urine 10/05/2025 10:4 9 AM HEAD CHOPPER 10/05/2025 10:56 AM HEAD CHOPPER Cecile [facility] URINE ORDERABLES Final Result Performing Organization Address [facility] de Phone Number [address] [address] * Magnesium (10/05/2025 10:49 AM HEAD CHOPPER) [facility] Magnesium 2.1 1.4 - 2.5 mg/dL Blood 10/05/2025 10:4 9 AM HEAD CHOPPER 10/05/2025 10:56 AM HEAD CHOPPER Micky [facility] BLOOD ORDERABLES Final Result Performing Organization Address [facility] de Phone Number [address] [address] * (ABNORMAL) Ethanol (10/05/2025 10:49 AM HEAD CHOPPER) [facility] Ethanol 270(H) <=10 mg/dL Comment: Interpretive Data Legal limit of intoxication > or = 80 mg/dL Levels > or = 400 mg/dL are potentially TOXIC. Current interpretive data was last revised on 2018. Blood 10/05/2025 10:4 9 AM HEAD CHOPPER 10/05/2025 10:56 AM HEAD CHOPPER us Cecile [facility] BLOOD ORDERABLES Final Result [facility] [address] [facility] [place] [address] * (ABNORMAL) Comprehensive metabolic panel (10/05/2025 10:49 AM HEAD CHOPPER) Pathologist [facility] Sodium 143 135 - 145 mmol/L Potassium, pl 4.1 3.3 - 4.9 mmol/L [facility] Chloride 102 97 - 110 mmol/L [facility] CO2 28 22 - 32 mmol/L [facility] Anion gap 13 2 - 15 mmol/L [facility] BUN 8 6 - 25 mg/dL [facility] Creatinine 0.85 0.80 - 1.30 mg/dL [facility] Glucose 98 70 - 199 mg/dL [facility] Comment: Interpretive Data Fasting glucose >/= 126 mg/dl is diagnostic for diabetes. Fasting is defined as no caloric intake [...] interpretive data was last revised 2022. Calcium 9.4 8.5 - 10.3 mg/dL [facility] Bilirubin, total 0.5 0.1 - 1.2 mg/dL [facility] Protein, pl 7.1 6.5 - 8.5 g/dL [facility] Albumin 4.6 3.5 - 5.0 g/dL [facility] Alk phos 70 40 - 130 Units/L [facility] ALT 47 7 - 55 Units/L [facility] AST 112(H) 10 - 50 Units/L [facility] Blood 10/05/2025 10:4 9 AM HEAD CHOPPER 10/05/2025 10:56 AM HEAD CHOPPER us Cecile [facility] BLOOD ORDERABLES Final Result [facility] [place] [address] * MRI Cervical Spine WO Contrast (10/05/2025 10:36 AM HEAD CHOPPER) Anatomical Region Laterality Modality Spine N/A Magnetic Resonan ce 10/07/2025 7:37 AM HEAD CHOPPER Impressions 10/07/2025 7:37 AM HEAD CHOPPER Progression of disc degeneration at several cervical levels, most evident at C6-7 now with significantly increased bilateral foraminal narrowing and C5-C6 with increasing leg severe right foraminal narrowing. Mild spinal stenosis at several levels but no high-grade cord impingement. Contact along the ventral cord is due to a reversed cervical lordosis rather than osseous spinal stenosis. Please correlate with radiculopathy symptoms. Electronically signed by: Sharri Valentino M.D. Narrative 10/07/2025 7:37 AM HEAD CHOPPER EXAM DESCRIPTION: MRI CERVICAL SPINE WO CONTRAST REASON FOR STUDY: Chronic neck pain no trauma no surery TECHNIQUE: Sagittal and Axial imaging includes T1, T2, STIR and gradient echo sequences. Images saved to PACS. FINDINGS: Cervical MRI comparison 07/10/2013. ALIGNMENT: There is reversal of lordosis with slight retrolisthesis of C3 on C4 and of C6 on C7. There is been mild progression from prior. Alignment otherwise is normal. VERTEBRAE: Vertebral body height is normal. There is no focal marrow signal abnormality. Incidental mild chronic Modic type II fatty endplate changes along the inferior C5 endplate.. DISCS : Mild cervical disc degeneration at several levels. See details below. HARDWARE: None in the spine. CORD: Normal in size and signal intensity. INDIVIDUAL LEVELS: C1-C2: Normal atlanto dens interval. Normal craniocervical junction. C2-C3: No significant spinal stenosis or neuroforaminal stenosis C3-C4: Mild broad-based posterior disc osteophytic complex. Mild facet arthritis. No significant central canal stenosis or neural foraminal narrowing. Mild effacement of anterior CSF due to the reversed lordosis. No cord impingement. C4-C5: Tiny midline posterior disc- osteophytic complex. No significant central canal stenosis. Mild uncovertebral spurring on the right greater than left with mild right foraminal narrowing.. Minimal contact along the ventral cervical cord to to the reversed lordosis. C5-C6: Slightly increased disc space narrowing with fatty reactive marrow changes in the inferior C5 endplate, new from prior in keeping with chronic disc degeneration. At this level, right-sided uncovertebral spurring and facet arthritic changes present. There is moderate to significant right foraminal narrowing. Mild spinal stenosis without cord impingement. This is slightly increased from prior. Mild left foraminal narrowing. C6-C7: Broad-based central disc osteophytic complex. There is bilateral uncovertebral hypertrophy. There is severe bilateral foraminal narrowing, slightly more evident on the right. No significant central canal stenosis or cord impingement. Changes have progressed significantly at this level. C7-T1: No significant spinal stenosis or neuroforaminal stenosis. BASE OF BRAIN: No significant finding. UPPER THORACIC: Incompletely imaged. No significant spinal stenosis or foraminal stenosis. OTHER: No other significant finding. Procedure Note Sharri Valentino MD - 10/07/2025 EXAM DESCRIPTION: MRI CERVICAL SPINE WO CONTRAST REASON FOR STUDY: Chronic neck pain no trauma no surery TECHNIQUE: Sagittal and Axial imaging includes T1, T2, STIR and gradient echo sequences. Images saved to PACS. FINDINGS: Cervical MRI comparison 07/10/2013. ALIGNMENT: There is reversal of lordosis with slight retrolisthesis of C3 on C4 and of C6 on C7. There is been mild progression from prior. Alignment otherwise is normal. VERTEBRAE: Vertebral body height is normal. There is no focal marrow signal abnormality. Incidental mild chronic Modic type II fatty endplate changes along the inferior C5 endplate.. DISCS : Mild cervical disc degeneration at several levels. See details below. HARDWARE: None in the spine. CORD: Normal in size and signal intensity. INDIVIDUAL LEVELS: C1-C2: Normal atlanto dens interval. Normal craniocervical junction. C2-C3: No significant spinal stenosis or neuroforaminal stenosis C3-C4: Mild broad-based posterior disc osteophytic complex. Mild facet arthritis. No significant central canal stenosis or neural foraminal narrowing. Mild effacement of anterior CSF due to the reversed lordosis. No cord impingement. C4-C5: Tiny midline posterior disc- osteophytic complex. No significant central canal stenosis. Mild uncovertebral spurring on the right greater than left with mild right foraminal narrowing.. Minimal contact along the ventral cervical cord to to the reversed lordosis. C5-C6: Slightly increased disc space narrowing with fatty reactive marrow changes in the inferior C5 endplate, new from prior in keeping with chronic disc degeneration. At this level, right-sided uncovertebral spurring and facet arthritic changes present. There is moderate to significant right foraminal narrowing. Mild spinal stenosis without cord impingement. This is slightly increased from prior. Mild left foraminal narrowing. C6-C7: Broad-based central disc osteophytic complex. There is bilateral uncovertebral hypertrophy. There is severe bilateral foraminal narrowing, slightly more evident on the right. No significant central canal stenosis or cord impingement. Changes have progressed significantly at this level. C7-T1: No significant spinal stenosis or neuroforaminal stenosis. BASE OF BRAIN: No significant finding. UPPER THORACIC: Incompletely imaged. No significant spinal stenosis or foraminal stenosis. OTHER: No other significant finding. IMPRESSION: Progression of disc degeneration at several cervical levels, most evident at C6-7 now with significantly increased bilateral foraminal narrowing and C5-C6 with increasing leg severe right foraminal narrowing. Mild spinal stenosis at several levels but no high-grade cord impingement. Contact along the ventral cord is due to a reversed cervical lordosis rather than osseous spinal stenosis. Please correlate with radiculopathy symptoms. Electronically signed by: Sharri Valentino M.D. Clare Kasper MD IM MRI PROCEDURE S Final Result * Hepatitis panel, acute Blood (07/19/2025 11:02 AM CDT) Hep A IgM Nonreactive Nonreactive Comment: [...] in accordance with current CDC screening recommendations. Reactive: Positive for HCV antibodies. This may represent current or past HCV infection. Supplemental molecular testing will be automatically performed to determine current infection status in accordance with current CDC screening recommendations. Interpretive data was last revised on 2020. HepBsAg Nonreactive Nonreactive [facility] Blood 07/19/2025 11:0 2 AM CDT 07/19/2025 2:56 PM CDT Clare Kasper MD LAB MICROBIOLOGY - GENERAL ORDERABLES Final Result Performing Organization Address [facility] Co de Phone Number [address] [place] [address] * PSA screen (12/28/2024 10:07 AM HEAD CHOPPER) PSA-Total 0.34 <=3.90 ng/mL Comment: Interpretive Data AGE SEX REFERENCE INTERVAL 0 minutes-150 years Female None 0 minutes-49 years Male None 50-59 years Male 0-3.90 60-69 years Male 0-5.40 70-79 years Male 0-6.20 80-150 years Male 0-6.20 The [employer] PSA Total assay procedure was used. Results from different manufacturers or methods may not be comparable. Serial testing should be performed using the same method. Current interpretive data last revised 22. Testing performed by: [facility], [address] [place] [address]., [id number] Blood 12/28/2024 10:0 7 AM HEAD CHOPPER 12/28/2024 10:44 AM HEAD CHOPPER Clare Kasper MD LAB BLOOD ORDERAB LES Final Result Performing Organization Address [facility] Co de Phone Number [facility] [address] [facility] [place] [address] * COLONOSCOPY (06/24/2021 9:15 AM CDT) Anatomical Region Laterality Modality Other Narrative Procedure Note Noemi Mccoy MD - 06/24/2021 9:15 AM CDT [facility] Patient Name: Yariel Hill Procedure Date: 06/24/2021 9:15 AM Date of : 1970 Admit Type: Outpatient Age: 51 Gender: Male Attending MD: Noemi Mccoy M.D. Room: [facility] ENDOSCOPY ROOM 8 Note Status: Finalized Procedure: [...] were verified by the physician,the nurse, the senior web analyst and the bicycle service technician in the procedure room. Respiratory [...] bowel preparation was evaluated using the BBPS ([place] Bowel Preparation Scale)with scores of: Right Colon [...] On: 06/24/2021 9:15 AM Recognized by the [employer] [employer] for promoting quality in endoscopy Noemi Mccoy MD ENDOSCOPY PROCEDURES Final R esult from Last 3 Months or Most Recently Relevant to Health Maintenance Insurance [facility] Advance Directives For more information, please contact: [phone] * Full Code (Latest Code Status on File) Date Activated Date Inactivated Comments 06/24/2021 8:04 AM 06/24/2021 2:35 PM * Full Code Date Activated Date Inactivated Comments 05/14/2020 9:51 AM 05/14/2020 5:15 PM Care Teams Electronics Technology Instructor Relationship Specialty Start Date End Date Clare Kasper MD PCP - General Family Medicine 07/27/22
[2025-10-28 16:31] VITALS: BP 124/69; PULSE 81; RESP 16; TEMP 36.8; O2SAT 100
--- OUTSIDE RECORDS SUMMARY | 2025-10-28 19:30 | XMS_ITS | Clinical Summary ---
Author Organization [facility] Address [address] [place] [address] Care Team Providers Care Step Finisher Name Role Phone Clare Kasper MD Primary Care Provider [phone]- [phone] Allergies No known active allergies Medications No known medications Encounters Date Type Department Care Team Description 08/21/2025 3:20 PM CDT - 08/21/2025 7:35 PM CDT Emergency [facility] [place] [address] Pedro Wilson PA Alcohol Intoxication Discharge Disposition: [...] - 12.9 SEC 08/21/2025 4:12 PM CDT [facility] INR 0.9 08/21/2025 4:12 PM CDT [facility] Comment: Recommended INR Therapeutic Goals: 2.0-3.0 Routine Therapy 2.5-3.5 Mechanical Prosthetic Valves (High Risk) 08/21/2025 3:29 PM CDT us Pedro [facility] Final Resu lt [facility] [address] [place] [address], [place] [phone] * (ABNORMAL) COMPREHENSIVE METABOLIC PANEL (08/21/2025 3:29 PM CDT) Pathologist [facility] GLUCOSE 84 70 - 99 MG/DL 08/21/2025 4:05 PM CDT [facility] BUN 9 7 - 18 MG/DL 08/21/2025 4:05 PM CDT [facility] CREATININE S/P/B 0.91 0.7 - 1.3 MG/DL 08/21/2025 4:05 PM CDT [facility] SODIUM S/P/B 142 136 - 145 MMOL/L 08/21/2025 4:05 PM CDT [facility] POTASSIUM S/P/B 4.2 3.5 - 5.1 MMOL/L 08/21/2025 4:05 PM CDT [facility] Comment:SLIGHT HEMOLYSIS, RE SULT MAY BE AFFECTED. CHLORIDE S/P/B 102 97 - 115 MMOL/L 08/21/2025 4:05 PM CDT [facility] CO2 28.1 21 - 32 MMOL/L 08/21/2025 4:05 PM T [facility] CALCIUM S/P/B 9.1 8.5 - 10.1 MG/DL 08/21/2025 4:05 PM T [facility] BILIRUBIN TOTAL S/P/B 1.0 0.2 - 1.2 MG/DL 08/21/2025 4:05 PM T [facility] Comment: THIS ASSAY IS NOT RECOMMENDED FOR PATIENTS UNDERGOING TREATMENT WITH ELTROMBOPAG DUE TO THE POTENTIAL FOR FALSELY ELEVATED RESULTS. TOTAL PROTEIN S/P/B 7.6 6.4 - 8.2 G/DL 08/21/2025 4:05 PM T [facility] ALBUMIN S/P/B 4.0 3.4 - 5.0 G/DL 08/21/2025 4:05 PM T [facility] AST 331(H) 15 - 37 U/L 08/21/2025 4:05 PM T [facility] Comment:SLIGHT HEMOLYSIS, RE SULT MAY BE AFFECTED. ALT 151(H) 16 - 60 U/L 08/21/2025 4:05 PM T [facility] ALKALINE PHOSPHATASE S/P/B 73 50 - 136 U/L 08/21/2025 4:05 PM [facility] ANION GAP 11.9(H) 2 - 10 MMOL/L 08/21/2025 4:05 PM T [facility] BUN CREATININE RATIO 9.9 6 - 26 08/21/2025 4:05 PM [facility] A/G RATIO 1.1 1.0 - 2.0 RATIO 08/21/2025 4:05 PM [facility] GFR ESTIMATE >90 >90 ML/MIN/1.7 3 M2 08/21/2025 4:05 PM T [facility] Comment: NOTE: eGFR is not [...] us Pedro [facility] Final Resu lt [facility] [address] [place] [address], [place] [phone] * (ABNORMAL) CBC W/DIFF AUTOMATED (08/21/2025 3:29 PM CDT) WBC 7.74 4.5 - 11.0 x10'3/uL 08/21/2025 4:12 PM CDT [facility] RBC 4.38(L) 4.70 - 6.10 x10'6/uL 08/21/2025 4:12 PM CDT [facility] HGB 14.4 14.0 - 18.0 G/DL 08/21/2025 4:12 PM CDT [facility] HCT 40.4(L) 43.0 - 54.0 % 08/21/2025 4:12 PM CDT [facility] MCV 92.2 80.0 - 94.0 FL 08/21/2025 4:12 PM CDT [facility] MCH 32.9(H) 27.0 - 31.0 PG 08/21/2025 4:12 PM CDT [facility] MCHC 35.6 32.0 - 36.0 G/DL 08/21/2025 4:12 PM CDT [facility] RDW 14.1 11.5 - 14.5 % 08/21/2025 4:12 PM CDT [facility] PLT 132 130 - 400 x10'3/uL 08/21/2025 4:12 PM CDT [facility] MPV 9.8 9.3 - 12.2 FL 08/21/2025 4:12 PM CDT [facility] DIFFERENTIAL TYPE AUTOMATED DIFFERENTIAL 08/21/2025 4:12 PM CDT [facility] NEUTROPHILS % 61.2 % 08/21/2025 4:12 PM CDT [facility] LYMPHOCYTES % 26.7 % 08/21/2025 4:12 PM CDT [facility] MONOCYTES % 8.8 % 08/21/2025 4:12 PM CDT [facility] EOSINOPHILS 2.1 % 08/21/2025 4:12 PM CDT [facility] BASOPHILS 0.9 % 08/21/2025 4:12 PM CDT [facility] IMMATURE GRANS % 0.3 % 08/21/20 4:12 PM CDT [facility] ABS. NEUTROPHILS 4.74 1.80 - 7.70 x10'3/uL 08/21/2025 4:12 PM CDT [facility] ABS. LYMPHOCYTES 2.07 1.00 - 4.80 x10'3/uL 08/21/2025 4:12 PM CDT [facility] ABS. MONOCYTES 0.68 0.30 - 0.82 x10'3/uL 08/21/2025 4:12 PM CDT [facility] ABS. EOSINOPHILS 0.16 0.04 - 0.54 x10'3/uL 08/21/2025 4:12 PM CDT [facility] ABS. BASOPHILS 0.07 0.01 - 0.08 x10'3/uL 08/21/2025 4:12 PM CDT [facility] ABS. IMMATURE GRANULOCYTES 0.02 0.00 - 0.49 x10'3/uL 08/21/2025 4:12 PM CDT [facility] 08/21/2025 3:29 PM CDT Pedro [facility] Final Resu lt Performing Organization Address City/[facility]/ZIP Co de Phone Number [facility] [address] [place] [address], [place] [phone] * LIPASE (08/21/2025 3:29 PM CDT) LIPASE 29 13 - 75 UNITS/L 08/21/2025 4:05 PM CDT [facility] 08/21/2025 3:29 PM CDT Pedro [facility] Final Resu lt Performing Organization Address City/[facility] Co de Phone Number [facility] [address] [place] [address], [place] [phone] from Last 3 Months Insurance [facility] Care Teams Step Finisher Relationship Specialty Start Date End Date Clare Kasper MD [address] [address] PCP - General FAMILY PRACTICE 08/21/25
--- OUTSIDE RECORDS SUMMARY | 2025-10-28 19:30 | XMS_ITS | Encounter Summary ---
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 No Additional Questions/Comments: n/a Does message need to be routed? Yes-Action Needed P PROCESSOR documented in this encounter Plan of Treatment [...] on filedocumented in this encounter Care Teams Care Aide Relationship Specialty Start Date End Date Clare Kasper MD PCP - General Family Medicine 07/27/22 documented as of this encounter
--- OUTSIDE RECORDS SUMMARY | 2025-10-28 19:30 | XMS_ITS | Clinical Summary ---
Author Organization 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
--- OUTSIDE RECORDS SUMMARY | 2025-10-28 19:30 | XMS_ITS | Clinical Summary ---
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
--- OUTSIDE RECORDS SUMMARY | 2025-10-28 19:30 | XMS_ITS | Encounter Summary ---
Author Organization [facility] Address [address] [place] [address] Care Team Providers Care Fueler Name Role Phone Clare Kasper MD Primary Care Pro vider Encounter Details Date Type Department Care Team ([facility] st Contact Info) Description 10/28/2025 Telephone [facility] Primary Care at [address] [phone] Clare Kasper MD [facility] [address] Social History Tobacco Use Types [...] on file Legal Sex Male 2:37 PM WOUND/OSTOMY CLINICAL NURSE SPECIALIST Gender Identity Not on file Sexual Orientation Not on file documented as of this encounter Miscellaneous Notes * Telephone Encounter - Rubi Farr MA - 10/28/2025 10:02 AM WOUND/OSTOMY CLINICAL NURSE SPECIALIST Called pt and informed him any restrictions should be from neurosurgery going forward, per Dr. Kasper. Pt was confused b/c he thought Dr. Kasper would since she put them in. But he eventually voiced understanding. Asked if pt wanted to keep 11/11/[address] Kasper or cancel it. Pt informed our office could go ahead and cancel it. D/OSTOMY CLINICAL NURSE SPECIALIST * Telephone Encounter - Clare Kasper MD - 10/28/2025 9:57 AM CST Yes should get restrictions from neurosurgery going forward D/OSTOMY CLINICAL NURSE SPECIALIST * Telephone Encounter - Rubi Farr MA - 10/28/2025 9:24 AM WOUND/OSTOMY CLINICAL NURSE SPECIALIST Was verbally informed by Carol that pt scheduled himself an appt 11/11/25 to discuss lifting restrictions based on MRI. Pt sees neurologist that same morning, 11/11. Please advise. 1.) Unlikely to have pt notes from neurologist by our office's appt slot (11:30 AM neurology to 4:15 PM family medicine). 2.) Will pt receive restriction instructions from neurologist or Dr. Kasper? D/OSTOMY CLINICAL NURSE SPECIALIST documented in this encounter Plan of [...] on filedocumented in this encounter Care Teams Fueler Relationship Specialty Start Date End Date Clare Kasper MD PCP - General Family Medicine 07/27/22 documented as of this encounter
--- OUTSIDE RECORDS SUMMARY | 2025-10-28 19:31 | XMS_ITS | Clinical Summary ---
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 Continue gabapentin 300mg three [...] needed Assessment & Plan (10/25/2023 2:41 PM RESEARCH PROFESSIONAL): Trazodone as needed Assessment & Plan [...] rosuvastatin Assessment & Plan (12/28/2024 9:43 AM RESEARCH PROFESSIONAL): LDL controlled <70 Continue 15mg rosuvastatin Assessment & Plan (03/27/2024 5:04 PM CDT): Continue statin Assessment & Plan (10/25/2023 2:42 PM RESEARCH PROFESSIONAL): Continue statin Assessment & Plan (01/24/2023 [...] cessation Assessment & Plan (12/28/2024 9:37 AM RESEARCH PROFESSIONAL): Encouraged cessation Assessment & Plan (01/24/2023 2:36 [...] (06/18/20) Assessment & Plan (12/28/2024 9:37 AM RESEARCH PROFESSIONAL): Reviewed PMH & Reviewed medications and supplements HCM: orders placed as needed Assessment & Plan (10/25/2023 2:15 PM RESEARCH PROFESSIONAL): Reviewed PMH & Phq reviewed Reviewed medications [...] July Assessment & Plan (09/29/2018 5:39 PM RESEARCH PROFESSIONAL): Flu shot and referral for colonoscopy today Macrocytic anemia 06/13/2018 Assessment & Plan (09/29/2018 5:27 PM RESEARCH PROFESSIONAL): Mild anemia with last Hb 12.9 (from 12/2016). Folate, B12, Iron panel normal. -CBC today GERD (gastroesophageal reflux disease) 5 Assessment & Plan (07/19/2025 10:21 AM CDT): Controlled Pepcid as needed Assessment & Plan (12/28/2024 9:43 AM RESEARCH PROFESSIONAL): Controlled Try switching omeprazole as needed to pepcid Assessment & Plan (03/27/2024 5:05 PM CDT): Stable off medications Assessment & Plan (10/25/2023 2:36 PM RESEARCH PROFESSIONAL): Uncontrolled Restart omeprazole Assessment & Plan [...] amlodipine Assessment & Plan (12/28/2024 9:37 AM RESEARCH PROFESSIONAL): Blood pressure controlled continue 10mg amlodipine Assessment & Plan (03/27/2024 5:04 PM CDT): Blood pressure controlled continue 10mg amlodipine Assessment & Plan (10/25/2023 2:15 PM RESEARCH PROFESSIONAL): Blood pressure controlled continue 10mg amlodipine [...] hyperkalemia Assessment & Plan (12/08/2020 12:32 PM RESEARCH PROFESSIONAL): Blood pressure very well-controlled with amlodipine. [...] daily Assessment & Plan (09/29/2018 5:25 PM RESEARCH PROFESSIONAL): Poorly controlled hypertension 157/81 in clinic [...] cessation Assessment & Plan (10/25/2023 2:42 PM RESEARCH PROFESSIONAL): Encourage cessation, he is interested in starting wellbutrin Assessment & Plan (09/29/2018 5:29 PM RESEARCH PROFESSIONAL): Was given patches at our last visit however he feels like they make him itch. He continues to smoke 1/2PPD. -As he has other active issues going on today, namely ETOH cessation, we will defer further discussion to our next visit. Would consider pharmacologic therapy for him, chantix vs wellbutrin. Alcohol use disorder 11/13/2012 Assessment & Plan (10/09/2025 1:31 PM RESEARCH PROFESSIONAL): Uncontrolled, recent relapse after family member's Requesting librium, but last drink only a couple of hours prior to visit so likely still intoxicated and CIWA normal. 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 No indication [...] request) Assessment & Plan (09/29/2018 5:26 PM RESEARCH PROFESSIONAL): Vitamin D 18 on 05/2018 labs, will start 50,000 units vit D weekly today. Arthralgia of shoulder 11/13/201206/13 Encounters Date Type Department Care Team Description 10/28/2025 Telephone [facility] Primary Care at [address] [place] [address] Clare Kasper MD 10/10/2025 Telephone [facility] Neuro[facility] [address] [place] [address] [address], [address] [place] [address] Kati Ramirez RN 10/08/2025 Documentation [facility] [address] [place] [address] [address], [address] [place] [address] Traci Meyers RN 10/07/2025 Results [facility] at [address] [address] Clare Kasper MD MRI Cervical Spine WO Contrast 10/07/2025 Telephone [facility] Primary Care at [address] [phone] Clare Kasper MD Test Results 10/05/2025 2:37 PM RESEARCH PROFESSIONAL - 10/05/2025 4:00 PM RESEARCH PROFESSIONAL Emergency [facility] [address] [place] [address] Alcohol use disorder (Primary Dx) Discharge Disposition: Discharge to home or self care 10/05/2025 9:44 AM RESEARCH PROFESSIONAL - 10/05/2025 11:59 PM RESEARCH PROFESSIONAL Hospital [facility] MRI [address] [place] [address] Cervical radiculopathy Discharge Disposition: Discharge to home or self care 10/04/2025 3:30 PM RESEARCH PROFESSIONAL Office Visit [facility] Primary Care at [address] [phone] Clare Kasper MD Cervical radiculopathy (Primary Dx); Alcohol use disorder 09/12/2025 Telephone [facility] Primary Care at [address] [address] Clare Kasper MD Test Results 08/27/2025 1:30 PM CDT Office Visit [facility] Primary Care at [address] [address] Clare Kasper MD Cervical radiculopathy (Primary Dx); Acute non-recurrent maxillary sinusitis; Primary hypertension 08/27/2025 Telephone [facility] Primary Care at [address] [address] Clare Kasper MD Forms Request 08/23/2025 Nurse Triage [facility] Primary Care at [address] [place] [address] Clare Kasper MD 08/20/2025 Nurse Triage [facility] Primary Care at [address] [place] [address] Марина Callahan RN 08/13/2025 Telephone [facility] Primary Care at [address] [place] [address] Clare Kasper MD Appointment Request; Forms [...] file Legal Sex Male 2:37 PM RESEARCH PROFESSIONAL Gender Identity Not on file Sexual Orientation Not on file Last Filed Vital Signs Vital Sign Reading Time Taken Comments Blood Pressure 135/74 10/05/2025 3:50 PM RESEARCH PROFESSIONAL Pulse 60 10/05/2025 3:50 PM RESEARCH PROFESSIONAL Temperature 36.5 C (97.7 F) 10/05/2025 3:25 PM RESEARCH PROFESSIONAL Respiratory Rate 18 10/05/2025 3:50 PM RESEARCH PROFESSIONAL Oxygen Saturation 100% 10/05/2025 3:50 PM RESEARCH PROFESSIONAL Inhaled Oxygen Concentration - - Weight 49.9 kg (110 lb) 10/05/2025 10:39 AM RESEARCH PROFESSIONAL Height 165 cm (5' 4.96) 10/04/2025 3:35 PM RESEARCH PROFESSIONAL Body Mass Index 18.33 10/04/2025 3:35 PM RESEARCH PROFESSIONAL Plan of Treatment Health Maintenance Due Date [...] Diagnosis Comments MAGNESIUM STAT 10/05/2025 10:49 AM RESEARCH PROFESSIONAL EGFR STAT 10/05/2025 10:49 AM RESEARCH PROFESSIONAL URINALYSIS, MICROSCOPIC ONLY STAT 10/05/2025 10:49 AM RESEARCH PROFESSIONAL DIFFERENTIAL AUTO STAT 10/05/2025 10:49 AM RESEARCH PROFESSIONAL DRUGS OF ABUSE SCREEN, URINE WITHOUT CONFIRMATION STAT 10/05/2025 10:49 AM RESEARCH PROFESSIONAL ETHANOL STAT 10/05/2025 10:49 AM RESEARCH PROFESSIONAL THYROID FUNCTION CASCADE STAT 10/05/2025 10:49 AM RESEARCH PROFESSIONAL COMPREHENSIVE METABOLIC PANEL STAT 10/05/2025 10:49 AM RESEARCH PROFESSIONAL CBC WITH AUTO DIFFERENTIAL STAT 10/05/2025 10:49 AM RESEARCH PROFESSIONAL URINALYSIS AND REFLEX TO MICROSCOPIC AND CULTURE STAT 10/05/2025 10:49 AM RESEARCH PROFESSIONAL MRI CERVICAL SPINE WO CONTRAST Schedule Routine, Read Routine (OP Routine) 10/05/2025 10:36 AM RESEARCH PROFESSIONAL Cervical radiculopathy HEPATITIS PANEL, ACUTE Routine 07/19/2025 11:02 AM CDT Annual physical exam PSA SCREEN Routine 12/28/2024 10:07 AM RESEARCH PROFESSIONAL Screening PSA (prostate specific antigen) Annual physical exam COLONOSCOPY 06/24/2021 9:15 AM CDT from Last 3 Months or Most Recently Relevant to Health Maintenance Results * eGFR (10/05/2025 10:49 AM RESEARCH PROFESSIONAL) eGFR >90 >=60 mL/min/1. 73 m2 Comment: [...] reviewed 2021. Blood 10/05/2025 10:4 9 AM RESEARCH PROFESSIONAL 10/05/2025 10:56 AM RESEARCH PROFESSIONAL Cecile EMERSON LAB BLOOD ORDERABLES Final Result [facility] [address] [facility] Department [place] [address] * Differential, auto (10/05/2025 10:49 AM RESEARCH PROFESSIONAL) Pathologist [facility] Neutrophil abs 3.16 1.50 - 6.50 K/cumm Imm gran abs 0.00 0.00 - 0.10 K/cumm [facility] Lymphocyte abs 2.34 0.80 - 3.30 K/cumm [facility] Monocyte abs 0.48 0.20 - 0.80 K/cumm [facility] Eosinophil abs 0.15 0.00 - 0.50 K/cumm [facility] Basophil abs 0.07 0.00 - 0.10 K/cumm [facility] Neutrophil pct 51.1 % [facility] Comment: Interpretive Data Percent cell count reference ranges are not reported, since discordance with absolute values may lead to misinterpretation of CBC data. Current Interpretive Data was last revised on 2018. Imm gran pct 0.0 % [facility] Comment: Interpretive Data Percent cell count reference ranges are not reported, since discordance with absolute values may lead to misinterpretation of CBC data. Current Interpretive Data was last revised on 2018. Lymphocyte pct 37.7 % [facility] Comment: Interpretive Data Percent cell count reference ranges are not reported, since discordance with absolute values may lead to misinterpretation of CBC data. Current Interpretive Data was last revised on 2018. Monocyte pct 7.7 % [facility] Comment: Interpretive Data Percent cell count reference ranges are not reported, since discordance with absolute values may lead to misinterpretation of CBC data. Current Interpretive Data was last revised on 2018. Eosinophil pct 2.4 % [facility] Comment: Interpretive Data Percent cell [...] on 2018. Blood 10/05/2025 10:4 9 AM RESEARCH PROFESSIONAL 10/05/2025 10:56 AM RESEARCH PROFESSIONAL Cecile EMERSON LAB BLOOD ORDERABLES Final Result Performing Organization Address [facility] Co de Phone Number [address] [address] * Thyroid Function Jones (10/05/2025 10:49 AM RESEARCH PROFESSIONAL) TSH 1.89 0.30 - 4.20 mcIUnit/mL Blood 10/05/2025 10:4 9 AM RESEARCH PROFESSIONAL 10/05/2025 10:56 AM RESEARCH PROFESSIONAL Cecile EMERSON LAB BLOOD ORDERABLES Final Result Performing Organization Address [facility] de Phone Number [address] [address] * (ABNORMAL) Urinalysis reflex to microscopic and culture Urine (10/05/2025 10:49 AM RESEARCH PROFESSIONAL) Color, ur Yellow Yellow Clarity, ur Clear Clear [facility] Specific gravity, ur 1.025 1.003 - 1.030 [facility] pH, urine 6.0 [facility] Comment: Interpretive Data U rine pH is affected by diet, medications, systemic acid-base disturbances, and renal tubular function. pH may affect urinary stone formation. For example, urine pH below 6.0 may help reduce the tendency for calcium phosphate stones and pH greater than 6.0 may reduce the tendency for uric acid stone formation. Source: [facility] Current Interpretive Data was last revised on 2017 Protein, ur ql 1+(A) Negative [facility] Glucose, ur ql Negative Negative [facility] Ketones, ur Trace Negative [facility] Bilirubin, ur Negative Negative [facility] Blood, ur 1+(A) Negative [facility] Urobilinogen, ur 4.0(A) <2.0 mg/dL [facility] Nitrite, ur Negative Negative [facility] Leukocyte esterase, ur Negative Negative [facility] UA reflex comment Reflex to microscopic UA will be performed. [facility] Urine 10/05/2025 10:4 9 AM RESEARCH PROFESSIONAL 10/05/2025 10:56 AM RESEARCH PROFESSIONAL Cecile EMERSON LAB MICROBIOLOGY - GENERAL ORDERABLES Final Result Performing Organization Address [facility] Co de Phone Number [facility] [address] [facility] Department [place] [address] * (ABNORMAL) CBC with auto differential (10/05/2025 10:49 AM RESEARCH PROFESSIONAL) WBC 6.20 3.80 - 9.90 K/cumm Hgb 15.1 13.0 - 17.5 g/dL [facility] Hct 43.5 38.9 - 50.3 % [facility] Plt 251 150 - 400 K/cumm [facility] MPV 8.9(L) 9.1 - 12.3 fL [facility] RBC 4.58 4.30 - 5.80 M/cumm [facility] MCV 95.0 81.3 - 96.4 fL [facility] MCH 33.0 27.1 - 33.3 pg [facility] MCHC 34.7 32.3 - 35.7 g/dL [facility] RDW CV 14.4 11.1 - 14.9 % [facility] RDW SD 50.3(H) 35.7 - 48.1 fL [facility] NRBC abs 0.00 0.00 - 0.01 K/cumm [facility] Blood Venous blood specimen / Unknown 10/05/2025 10:49 AM RESEARCH PROFESSIONAL 10/05/2025 10:56 AM RESEARCH PROFESSIONAL Cecile EMERSON LAB BLOOD ORDERABLES Final Result Performing Organization Address [facility] Co de Phone Number [facility] [address] [facility] Department [place] [address] * (ABNORMAL) Drugs of Abuse Screen, Urine without Confirmation (10/05/2025 10:49 AM RESEARCH PROFESSIONAL) [facility] Signature Amphetamine, ur Not Detected CutOff 500ng/mL Comment: Interpretive Data - Amphetamines: Samples containing greater than 500 ng/mL d-methamphetamine or other cross-reacting amphetamine compounds are reported as positive. Amphetamine immunoassays are subject to significant false positive rates due to cross-reactivity of non-amphetamine drugs. Confirmatory testing required for definitive results. Current Interpretive Data was last reviewed 2023. Barbiturates, ur Not Detected CutOff 200ng/mL [facility] Comment: Interpretive Data - Barbiturates: Samples containing greater than 200 ng/mL secobarbital or other cross-reacting barbiturate compounds are reported as positive. False positive and false negative results are possible. Confirmatory testing required for definitive results. Current Interpretive Data was last reviewed 2023. Benzodiazepines, ur Screen Positive, presumptive (A) CutOff 100ng/mL [facility] Comment: Interpretive Data - Benzodiazepines: Samples containing greater than 100 ng/mL nordiazepam or other cross-reacting compounds are reported as positive. False positive and false negative results are possible. Confirmatory testing required for definitive results. Current Interpretive Data was last reviewed 2023. Cannabinoids, ur Not Detected CutOff 50 ng/mL [facility] Comment: Interpretive Data - Cannabinoids: Samples containing greater than 50 ng/mL delta-9 THC -COOH or other cross- reacting compounds are reported as positive. False positive and false negative results are possible. Confirmatory testing required for definitive results. Current Interpretive Data was last reviewed 2023. Cocaine, ur Not Detected CutOff 150ng/mL [facility] Comment: Interpretive Data - Cocaine: Samples containing greater than 150 ng/mL benzoylecgonine or other cross- reacting compounds are reported as positive. False positive and false negative results are possible. Confirmatory testing required for definitive results. Current Interpretive Data was last reviewed 2023. Fentanyl, Ur Not Detected CutOff 5 ng/mL [facility] Comment: Interpretive Data - Fentanyl: Samples containing [...] on 2018. Urine 10/05/2025 10:4 9 AM RESEARCH PROFESSIONAL 10/05/2025 10:56 AM RESEARCH PROFESSIONAL Narrative [facility] - 10/05/2025 11:23 AM RESEARCH PROFESSIONAL Drug of Abuse screening is performed by immunoassay for medical purposes only. This is not to be used for Pain Management purposes. Cecile EMERSNO LAB URINE ORDERABLES Final Result Performing Organization Address [facility] de Phone Number [address] [address] * (ABNORMAL) Urinalysis, microscopic only (10/05/2025 10:49 AM RESEARCH PROFESSIONAL) [facility] WBC, ur 0-5 0 - 5 /HPF RBC, ur 6-10(A) 0 - 2 /HPF [facility] Epithelial cells, squamous, ur 1-5 0 - 5 /HPF [facility] Mucous, ur Present(A) [facility] Hyaline casts, ur 6-10 0 - 10 /LPF [facility] Culture Reflex Comment Reflex conditions for urine culture (WBC >10) not met. [facility] Urine 10/05/2025 10:4 9 AM RESEARCH PROFESSIONAL 10/05/2025 10:56 AM RESEARCH PROFESSIONAL Cecile EMERSON LAB URINE ORDERABLES Final Result Performing Organization Address [facility] de Phone Number [address] [address] * Magnesium (10/05/2025 10:49 AM RESEARCH PROFESSIONAL) [facility] Magnesium 2.1 1.4 - 2.5 mg/dL Blood 10/05/2025 10:4 9 AM RESEARCH PROFESSIONAL 10/05/2025 10:56 AM RESEARCH PROFESSIONAL Micky EMRESON LAB BLOOD ORDERABLES Final Result Performing Organization Address [facility] de Phone Number [address] [address] * (ABNORMAL) Ethanol (10/05/2025 10:49 AM RESEARCH PROFESSIONAL) [facility] Ethanol 270(H) <=10 mg/dL Comment: Interpretive Data Legal limit of intoxication > or = 80 mg/dL Levels > or = 400 mg/dL are potentially TOXIC. Current interpretive data was last revised on 2018. Blood 10/05/2025 10:4 9 AM RESEARCH PROFESSIONAL 10/05/2025 10:56 AM RESEARCH PROFESSIONAL us Cecile EMERSON LAB BLOOD ORDERABLES Final Result [facility] [address] [facility] Department [place] [address] * (ABNORMAL) Comprehensive metabolic panel (10/05/2025 10:49 AM RESEARCH PROFESSIONAL) Pathologist [facility] Sodium 143 135 - 145 mmol/L Potassium, pl 4.1 3.3 - 4.9 mmol/L [facility] Chloride 102 97 - 110 mmol/L [facility] CO2 28 22 - 32 mmol/L [facility] Anion gap 13 2 - 15 mmol/L [facility] BUN 8 6 - 25 mg/dL [facility] Creatinine 0.85 0.80 - 1.30 mg/dL [facility] Glucose 98 70 - 199 mg/dL [facility] Comment: Interpretive Data Fasting [...] 2022. Calcium 9.4 8.5 - 10.3 mg/dL [facility] Bilirubin, total 0.5 0.1 - 1.2 mg/dL [facility] Protein, pl 7.1 6.5 - 8.5 g/dL [facility] Albumin 4.6 3.5 - 5.0 g/dL [facility] Alk phos 70 40 - 130 Units/L [facility] ALT 47 7 - 55 Units/L [facility] AST 112(H) 10 - 50 Units/L [facility] Blood 10/05/2025 10:4 9 AM RESEARCH PROFESSIONAL 10/05/2025 10:56 AM RESEARCH PROFESSIONAL us Cecile EMERSON LAB BLOOD ORDERABLES Final Result [facility] [facility] Department [place] [address] * MRI Cervical Spine WO Contrast (10/05/2025 10:36 AM RESEARCH PROFESSIONAL) Anatomical Region Laterality Modality Spine N/A Magnetic Resonan ce 10/07/2025 7:37 AM RESEARCH PROFESSIONAL Impressions 10/07/2025 7:37 AM RESEARCH PROFESSIONAL Progression of disc degeneration at several cervical [...] Sharri Valentino M.D. Narrative 10/07/2025 7:37 AM RESEARCH PROFESSIONAL EXAM DESCRIPTION: MRI CERVICAL SPINE WO CONTRAST [...] GENERAL ORDERABLES Final Result Performing Organization Address [facility] Co de Phone Number [address] [place] [address] * PSA screen (12/28/2024 10:07 AM RESEARCH PROFESSIONAL) PSA-Total 0.34 <=3.90 ng/mL Comment: Interpretive Data [...] Testing performed by: [facility], [address] [place] [address]., [id number] Blood 12/28/2024 10:0 7 AM RESEARCH PROFESSIONAL 12/28/2024 10:44 AM RESEARCH PROFESSIONAL Clare Kasper MD LAB BLOOD ORDERAB LES Final Result Performing Organization Address [facility] Co de Phone Number [facility] [address] [place] [address] * COLONOSCOPY (06/24/2021 9:15 AM CDT) Anatomical Region Laterality Modality Other Narrative Procedure Note Noemi Mccoy MD - 06/24/2021 9:15 AM CDT [facility] Patient Name: Yariel Hill Procedure Date: 06/24/2021 9:15 AM Date of : 1970 Admit Type: Outpatient Age: 51 Gender: Male Attending MD: Noemi Mccoy M.D. Room: [facility] ENDOSCOPY ROOM 8 Note Status: Finalized [...] were verified by the physician,the nurse, the oracle sql developer and the community development technician in the procedure room. Respiratory Examination: [...] bowel preparation was evaluated using the BBPS ([place] Bowel Preparation Scale)with scores of: Right Colon [...] On: 06/24/2021 9:15 AM Recognized by the [employer] for promoting quality in endoscopy Noemi Mccoy MD ENDOSCOPY PROCEDURES Final R esult from Last 3 Months or Most Recently Relevant to Health Maintenance Insurance [facility] Advance Directives For more information, please contact: [phone] * Full Code (Latest Code Status on File) Date Activated Date Inactivated Comments 06/24/2021 8:04 AM 06/24/2021 2:35 PM * Full Code Date Activated Date Inactivated Comments 05/14/2020 9:51 AM 05/14/2020 5:15 PM Care Teams Wireless Operator Relationship Specialty Start Date End Date Clare Kasper MD PCP - General Family Medicine 07/27/22
--- NOTE | 2025-10-28 19:46 | ED.ALCOHOL ---
HPI - Alcohol General Chief Complaint: Alcohol Stated Complaint: Anxiety from withdrawals Time Seen by Provider: 10/28/25 19:27 History of Present Illness HPI narrative: 55-year-old male with a history of alcohol use disorder in previous alcohol withdrawal syndrome presenting to the emergency department asking for Librium prescription. Patient states he relapsed during the holidays and has been sober for last 7 months otherwise but would like some help to detox. Patient states Librium usually helps him succeed for long periods of time. States his last drink was about 4 hours prior to my initial encounter but he is not having any withdrawal symptoms. He denies any symptoms at this time just asking for prescription to help him through the new year. Patient states he does not want to drink anymore and is just been drinking beer without any hard liquor. Denies in either symptoms or any other intoxicants. He is clinically sober at this time answering all my questions appropriately and not any distress. Has no medical complaints otherwise. Related Data Home Medications ?Medication ?Instructions ?Recorded ?Confirmed ?Last Taken ?Type amlodipine 10 mg tablet 10 mg PO DAILY 04/04/21 05/15/24 04/28/24 20:00 History rosuvastatin 5 mg tablet 5 mg PO DAILY 05/29/23 05/15/24 04/28/24 20:00 History omeprazole 20 mg capsule,delayed 20 mg PO DAILY PRN reflux 04/29/24 05/15/24 04/29/24 12:00 History release Allergies Allergy/AdvReac Type Severity Reaction Status Date / Time No Known Allergies Allergy Verified 10/28/25 16:18 Review of Systems Review of Systems: As reviewed above in HPI All systems reviewed & are unremarkable except as noted in HPI and below PMFSH Past Medical History Medical History Hyperlipidemia Gastroesophageal reflux disease Hypertension Alcohol abuse Sober since December 2023. Pancreatitis Surgical History Surgical History History of laparoscopic appendectomy History of esophagogastroduodenoscopy (EGD) Family History Family History Mother Family history non-contributory Social History Social History Social History: Surrogate medical decision maker: Tomas Hill, sibling. Code status: Full code. Years smoked: 15 Smoking status: Current every day smoker Tobacco type: cigarettes Second hand tobacco smoke exposure: Yes Additional smoking assessment comments: Smokes approximately 7 cigarettes a day. Alcohol intake: former Substance use: current Substance use type: marijuana Lack of Transportation: No Lack of Food: Never True Current Housing: I Have Housing Concerned About Future Housing: No Difficulty Paying Gas/Electric Bills: No Difficulty Paying for Meds: No Currently Unemployed: No Education: High School Diploma/GED Difficulty w/ Childcare or Family Care: No Living arrangements: with family Spiritual care concerns: No Exam Narrative: GENERAL: [Well-appearing, well-nourished, and in no acute distress.] HEAD: [Normocephalic, atraumatic.] EYES: [PERRLA and EOMI.] ENT: Nares clear, no rhinorrhea or epistaxis. Mucous membranes moist. NECK: Supple. CHEST: [Clear to auscultation. No respiratory distress.] HEART: [Regular rate and rhythm]. No murmur heard. [Normal peripheral pulses.] ABDOMEN: [Soft, nondistended], [nontender], [No rigidity or guarding] EXTREMITIES: Normal range of motion. [No edema.] SKIN: Warm, dry, no rash. NEURO: [No focal deficits]. Alert and oriented [x3.] PSYCH: [Normal mood and affect.] Course Vital Signs Vital signs: Vital Signs Temperature 36.8 C 10/28/25 16:31 Pulse Rate 81 10/28/25 16:31 Respiratory Rate 16 10/28/25 16:31 Blood Pressure 124/69 10/28/25 16:31 Pulse Oximetry 100 10/28/25 16:31 Oxygen Delivery Room Air 10/28/25 16:31 Temperature 36.8 C 10/28/25 16:31 Pulse Rate 71 10/28/25 19:52 Respiratory Rate 18 10/28/25 19:52 Blood Pressure 140/83 10/28/25 19:52 Pulse Oximetry 100 10/28/25 19:52 Oxygen Delivery Room Air 10/28/25 16:31 [facility] MDM Narrative Medical decision making narrative: 55-year-old male with a history of alcohol use disorder in previous alcohol withdrawal syndrome presenting to the emergency department asking for Librium prescription. Patient states he relapsed during the holidays and has been sober for last 7 months otherwise but would like some help to detox. Patient states Librium usually helps him succeed for long periods of time. States his last drink was about 4 hours prior to my initial encounter but he is not having any withdrawal symptoms. He denies any symptoms at this time just asking for prescription to help him through the new year. Patient states he does not want to drink anymore and is just been drinking beer without any hard liquor. Denies in either symptoms or any other intoxicants. He is clinically sober at this time answering all my questions appropriately and not any distress. Has no medical complaints otherwise. Patient has a benign examination with no signs of withdrawal presently. He is hemodynamically stable. Given that he has had success with Librium in the past we did give him a taper prescription sent to his preferred pharmacy to [facility] today. Counseled on alcohol cessation when using Librium and patient verbalized understanding instructions and return precautions. Safe for discharge home at this time with regular follow-up. Differential Diagnosis Differential Diagnosis: Alcohol withdrawal, anxiety, alcohol intoxication Discharge Plan Discharge Clinical Impression: History of alcohol withdrawal syndrome Patient Disposition: Home Condition: Stable Instructions: Antibiotic Form, Alcohol Withdrawal (ED) Additional Instructions: No present symptoms of alcohol withdrawal but Librium has helped you in the past so we have sent you a prescription with the appropriate taper protocol to your preferred pharmacy. Take this as directed and avoid any further alcohol intake. Return with any emergent concerns or withdrawal symptoms dating attention. Follow-up with regular primary care provider. Patient Language: Hungarian Prescriptions: New chlordiazepoxide HCl 25 mg capsule See Rx Instructions .Route .COMPLEX Qty: 20 0RF Rx Instructions: 50mg of chlordiazepoxide every 8 hours for two days, then decrease to 25mg every 8 hours for another two days followed by 25mg as needed No Action rosuvastatin 5 mg tablet 5 mg PO DAILY amlodipine 10 mg tablet 10 mg PO DAILY omeprazole 20 mg capsule,delayed release(DR/EC) 20 mg PO DAILY PRN (Reason: reflux) chlordiazepoxide HCl 25 mg capsule 25 mg PO QID PRN (Reason: alcohol withdrawal) Qty: 15 0RF Rx Instructions: Day 1: 50mg q6h Day 2: 25mg q6h Day 3: 25mg q12h Day 4: 25mg at night (Rx fifteen 25mg tabs) amoxicillin-pot clavulanate 875-125 mg tablet 1 tablet PO Q12H 7 Days Qty: 14 0RF chlordiazepoxide HCl 25 mg capsule 25 mg PO TID PRN (Reason: alcohol withdrawal) Qty: 10 0RF pantoprazole 40 mg tablet,delayed release (DR/EC) 40 mg PO HS 28 Days Qty: 28 0RF ondansetron 4 mg tablet,disintegrating 4 mg PO Q6H PRN (Reason: nausea and vomiting) Qty: 10 0RF omeprazole 20 mg capsule,delayed release(DR/EC) 20 mg PO DAILY Qty: 30 0RF omeprazole 20 mg capsule,delayed release(DR/EC) 20 mg PO DAILY Qty: 20 0RF chlordiazepoxide HCl 25 mg capsule 25 mg PO Q2H PRN (Reason: alcohol withdrawal) Qty: 20 0RF Rx Instructions: Day 1: Oral: 50 mg every 6 hours. Day 2: Oral: 50 mg every 12 hours. Day 3: Oral: 50 mg every 24 hours. Day 4: Oral: 25 mg every 24 hours, then discontinue chlordiazepoxide May take 25 mg PRN q2h for breakthrough symptoms. Follow-up/Referrals: Ranjith,Clare Richard MD [Primary Care Provider, Unknown] Time of Disposition: 19:43
[2025-10-28 19:52] VITALS: BP 140/83; PULSE 71; RESP 18; O2SAT 100
== END 2025-10-28 19:54 | disposition home or self-care (01) ==
PROVIDERS: Emergency Provider Student in an Organized Health Care Education/Training Program; PCP Hospitalist
DX: F10.10 Alcohol abuse, uncomplicated (principal); Z76.0 Encounter for issue of repeat prescription
CPT/HCPCS: 99283